=== PATIENT | female | born 1955 | race Caucasian/White ===

== ENCOUNTER → 2018-06-06 10:36 | Outpatient (CLI) | payer BC, SELFPAY ==
[2018-06-06 13:00] LABS: Thyroid Stim Hormone (TSH) 0.03 uIU/mL (0.358-3.74)
[2018-06-06 13:02] LABS: BNP,B-Type NATRIURETIC PEPTIDE 48.3 pg/mL (0-100)
== END ==
PROVIDERS: Family Provider Nurse Practitioner; PCP Nurse Practitioner; Visit Provider Nurse Practitioner Family
DX: I25.118 Atherosclerotic heart disease of native coronary artery with other forms of angina pectoris (principal); R06.09 Other forms of dyspnea; R53.83 Other fatigue; M25.562 Pain in left knee
CPT/HCPCS: 36415; 83880; 84439; 84443; 85379

== ENCOUNTER → 2018-07-19 22:55 | Outpatient (CLI) | payer BC, SELFPAY | PROVIDERS: Family Provider Nurse Practitioner; PCP Nurse Practitioner; Referring Provider Nurse Practitioner; Visit Provider Nurse Practitioner | DX: N30.90 Cystitis, unspecified without hematuria (principal) | CPT/HCPCS: 87077; 87086; 87088; 87186 ==

== ENCOUNTER → 2018-08-14 00:07 | Outpatient (CLI) | payer BC, SELFPAY ==
[2018-08-13 16:38] VITALS: BMI 44.2
== END ==
PROVIDERS: Family Provider Nurse Practitioner; PCP Nurse Practitioner; Referring Provider Nurse Practitioner; Visit Provider Nurse Practitioner
DX: N39.0 Urinary tract infection, site not specified (principal)
CPT/HCPCS: 87086; 87088

== ENCOUNTER → 2018-08-31 12:46 | Outpatient (CLI) | payer BC, SELFPAY ==
[2018-08-23 09:21] VITALS: BMI 44.2
--- NOTE | 2018-08-31 12:47 | ECHOD_ITS ---
Reason For Study: DYSPNEA/SOB Procedure This was a 2D Doppler, Color Flow transthoracic echocardiogram. Exam performed in department. Left Ventricle Normal size and thickness. The estimated ejection fraction is 65 %. Stage 1 diastolic dysfunction. No regional wall motion abnormalities noted. Right Ventricle Normal size and thickness. Normal systolic function. Atria Normal left atrium. Normal right atrium. Normal atrial septum. Mitral Valve The mitral valve is structurally normal. No prolapse or stenosis seen. Tricuspid Valve Normal tricuspid valve. Trivial tricuspid valve insufficiency. Right ventricular systolic pressure estimated to be 35 mmHg. Aortic Valve Trisinus/trileaflet aortic valve. Normal aortic valve. Pulmonic Valve Normal pulmonic valve. Trivial pulmonic valve insufficiency. Great Vessels Normal aortic root. Normal arch. Normal inferior vena cava. Inferior vena cava collapse with sniff. Pericardium/Pleural No pericardial effusion. MMode/2D Measurements & Calculations LVIDd: 4.3 cm IVSd: 1.3 cm Ao root diam: 3.3 cm LVIDs: 2.8 cm LVPWd: 0.98 cm RVDd: 3.3 cm FS: 33.9 % LAV(MOD-bp): 49.8 ml LVAd ap4: 29.7 cm2 SV(MOD-sp4): 54.8 ml LAV(MOD-bp) Indexed: 23.3 ml/m2 EDV(MOD-sp4): 90.6 ml LAV(MOD-sp2): 46.8 ml EDV(sp4-el): 91.5 ml LAV(MOD-sp4): 48.2 ml LVAs ap4: 16.5 cm2 ESV(MOD-sp4): 35.8 ml ESV(sp4-el): 36.4 ml EF(MOD-sp4): 60.5 % EF(sp4-el): 60.2 % SV(sp4-el): 55.1 ml LA A4 area: 18.1 cm2 LA dimension(2D): 4.2 cm RA A4 area: 17.4 cm2 Time Measurements MV dec time: 0.19 sec Doppler Measurements & Calculations MV E max brandin: 68.6 cm/sec Lat Peak E' Brandin: 10.7 cm/sec Med Peak E' Brandin: 6.8 cm/sec MV A max brandin: 87.5 cm/sec E/E' lat: 6.4 E/E' med: 10.1 MV E/A: 0.78 Ao V2 max: 137.9 cm/sec LV V1 max: 115.7 cm/sec PA V2 max: 91.5 cm/sec Ao max P.6 mmHg LV V1 max P.4 mmHg TR max brandin: 273.9 cm/sec TR max P.0 mmHg Interpretation Summary The estimated ejection fraction is 65 %. Stage 1 diastolic dysfunction. Trivial tricuspid valve insufficiency. Right ventricular systolic pressure estimated to be 35 mmHg. Compared to echo report dated 06/02/2017, LV function has normalized from global hypokinesis to normal LV function. Ordering Physician: Mehrdad Ruth/Santiago Rivera Referring Physician: GUSTAVO BENITEZ Performed By: Deyanira Spring RDCS
== END ==
PROVIDERS: Family Provider Nurse Practitioner; PCP Nurse Practitioner; Referring Provider Nurse Practitioner Family; Visit Provider Nurse Practitioner Family
DX: I51.9 Heart disease, unspecified (principal); R06.02 Shortness of breath
CPT/HCPCS: 93306

== ENCOUNTER → 2018-09-08 14:44 | Outpatient (CLI) | payer BC, SELFPAY ==
[2018-08-23 09:21] VITALS: BMI 44.2
[2018-09-08 15:29] LABS: Thyroid Stim Hormone (TSH) 0.18 uIU/mL (0.358-3.74)
== END ==
PROVIDERS: Family Provider Nurse Practitioner; PCP Nurse Practitioner; Referring Provider Nurse Practitioner; Visit Provider Nurse Practitioner
DX: E03.9 Hypothyroidism, unspecified (principal)
CPT/HCPCS: 84443

== ENCOUNTER → 2018-10-19 21:52 | Outpatient (CLI) | payer OTHER, SELFPAY ==
[2018-10-19 18:03] VITALS: BMI 45.7
== END ==
PROVIDERS: Family Provider Nurse Practitioner; PCP Nurse Practitioner; Referring Provider Nurse Practitioner; Visit Provider Nurse Practitioner
DX: R30.0 Dysuria (principal); R35.0 Frequency of micturition
CPT/HCPCS: 87077; 87086; 87088; 87186

== ENCOUNTER 2018-10-29 12:26 | Emergency (ER) | payer OTHER, SELFPAY ==
[2018-10-19 18:03] VITALS: BMI 45.7
[2018-10-29 12:26] VITALS: BP 150/93; PULSE 98; RESP 16; TEMP 36.7; O2SAT 97; BMI 44.5
--- NOTE | 2018-10-29 13:10 | CT_ITS ---
STUDY: CT ABDOMEN AND PELVIS WITHOUT CONTRAST REASON FOR EXAM: Female, 62 years old. Right flank pain. RADIATION DOSAGE (If Supplied By Facility): CTDIvol = ( 22.70 ) mGy, DLP = ( 1247.45 ) mGycm TECHNIQUE: Transaxial images were obtained from the dome of the diaphragm to the symphysis pubis without oral contrast, and without intravenous contrast. Sagittal and coronal images were reconstructed. Individualized dose optimization techniques were used for this CT. COMPARISON: None. FINDINGS: Mild degree of increased markings at the right lung base suggestive of mild atelectasis. The visualized portions of the heart are within normal limits. Normal liver. The patient is status post cholecystectomy. Normal spleen. Normal pancreas. Minimal enlargement of the left adrenal gland. Normal right kidney. There is a 2 mm calculus at the right ureterovesical junction. Normal left kidney. There is a small hiatal hernia. Normal small intestine. There are multiple colonic diverticula consistent with diverticulosis. The appendix is visualized and appears normal. There is scattered atherosclerotic calcification of the abdominal aorta, without a demonstrated aneurysm. There is an IVC filter in place. Normal retroperitoneum. Normal urinary bladder. There is a small umbilical hernia containing fat. There are degenerative changes of the visualized lumbar spine. Straightening of the normal lumbar lordosis. CT/Abdomen/Pelvis without Cont IMPRESSION: Sigmoid diverticulosis. 2 mm calculus at the right ureterovesical junction. Electronically Signed: Pranay Mccann MD at 14:06 EST , Service support ,
--- NOTE | 2018-10-29 13:12 | ED.DCSUM_ITS ---
- ER Visit Summary Date of Service: 10/29/18 Chief Complaint: right flank pain History of Present Illness: The patient is a 62 F who presents for 4-5 days of right-sided flank pain. Patient has had been having gradually worsening right flank pain with associated abdominal pain, vomiting, chills and sweats. She also has had dysuria, frequency and urgency for one week. Patient has had a few episodes of loose stool. She was evaluated by her family doctor for the urinary symptoms 1 week ago and placed on Macrobid. Her last dose is today and has given her no relief of flank pain. Patient states the flank pain began after the UTI diagnosis and start of prescription for the antibiotic. Patient has h istory of diverticulitis, rheumatoid arthritis, hypertension. Patient does not smoke. Physical Examination: Vital signs: afebrile, hemodynamically stable, no hypoxia on room air General: well nourished, well developed, in no distress but appears uncomfortable Skin: warm, dry, no rash, no pallor HEENT: normocephalic and atraumatic; PERRL, EOMI, moist mucous membranes Cardiovascular: regular rate and rhythm without murmurs, no peripheral edema, 2+ pulses all distal extremities Respiratory: No increased work of breathing, lungs are clear to auscultation bilaterally, no rales, rhonchi or wheezing Abdominal: Abdomen is soft, tender in the right upper and lower quadrants and suprapubic region with normoactive bowel sounds, no guarding or rebound, no masses positive right-sided CVA tenderness MSK: Moves all extremities, no deformities, normal strength Neuro: Awake and alert, oriented ?4. No facial droop, sensation and motor function intact and symmetric Test Results: Abnormal Lab Results 10/29/18 10/29/18 10/29/18 12:48 12:48 14:24 WBC 4.7 RBC 4.48 Hgb 14.2 Hct 43.3 MCV 96.7 MCH 31.7 MCHC 32.8 RDW 14.2 RDW Differential 50.2 H Plt Count 188 MPV 12.0 Immature Gran % (Auto) 0.200 Neut % (Auto) 45.3 L Lymph % (Auto) 36.9 [place] % (Auto) 15.9 H Eos % (Auto) 1.3 Baso % (Auto) 0.4 Absolute Neuts (auto) 2.1 Absolute Lymphs (auto) 1.74 Total Counted Not Reportable Sodium 140 Potassium 3.9 Chloride 108 H Carbon Dioxide 25.0 Anion Gap 7 BUN 16 Creatinine 0.82 Estim Creat Clear Calc 58.84 Est GFR (MDRD) Af Amer 90 Est GFR (MDRD) Non-Af 75 BUN/Creatinine Ratio 19.4 Glucose 98 Calcium 9.2 Total Bilirubin 0.50 AST 48 H ALT 74 H Alkaline Phosphatase 125 H Total Protein 7.7 Albumin 3.7 Globulin 4.0 Albumin/Globulin Ratio 0.9 Urine Color Yellow Urine Clarity Clear Urine pH 6.5 Ur Specific [place] 1.015 Urine Protein Negative Urine Glucose (UA) Normal Urine Ketones Negative Urine Occult Blood Negative Urine Nitrite Negative Urine Bilirubin Negative Urine Urobilinogen Normal Ur Leukocyte Esterase 25 H Urine RBC 0 SEEN Urine WBC 0 SEEN Ur Squamous Epith Cells 0-5 SEEN Urine Bacteria RARE Urine Mucus 0 SEEN Clinical Impression(s) from Imaging Studies Abdomen/Pelvis CT 10/29/18 13:10 IMPRESSION: Sigmoid diverticulosis. 2 mm calculus at the right ureterovesical junction. Electronically Signed: Pranay Mccann MD at 14:06 EST , Service support , Medications Given Sodium Chloride () 1,000 mls @ 250 mls/hr IV .Q4H DARRICK Last Admin: 10/29/18 13:20 Dose: 250 mls/hr Discontinued Medications Ketorolac Tromethamine (Toradol) 15 mg IV X1 ONE Stop: 10/29/18 13:10 Last Admin: 10/29/18 13:20 Dose: 15 mg Morphine Sulfate () 2 mg IV X1 ONE Stop: 10/29/18 14:23 Last Admin: 10/29/18 14:27 Dose: 2 mg Morphine Sulfate () 4 mg IV X1 ONE Stop: 10/29/18 15:15 Last Admin: 10/29/18 15:21 Dose: 4 mg Ondansetron HCl (Zofran) 4 mg IV X1 ONE Stop: 10/29/18 13:10 Last Admin: 10/29/18 13:20 Dose: 4 mg Emergency Department Course and Treatment: Patient presents with right-sided flank pain and continued urinary symptoms after being on Macrobid for several days. This is concerning for possible pyelonephritis, or possibly kidney stone given patient has history of prior kidney stones. Patient was given IV fluids, Zofran and Toradol with some improvement in her pain. She continued to be uncomfortable though and was given morphine. Labs showed no leukocytosis, no renal dysfunction, and urine was negative for hematuria or infection. CT flank showed a 2 mm stone at the right UVJ. Patient's flank symptoms started after the diagnosis of the UTI, thus with the stone and no infection noted on the UTI, patient's infection was likely successfully treated with the nitrofurantoin. She will finish the final dose is today. Patient was given prescription for Zofran and [place] to help with her flank pain from ureteral colic. She was given a referral to urology if she does not have improvement within 1 week. Patient was discharged home in improved condition after additional morphine. Treatment Plan: [] Disposition: [] Impression: right 2mm ureteral stone, right ureteral colic This note was generated with [employer] dictation software. It may contain incorrect words, spelling, and punctuation that were not noted in review of the chart prior to signing ED Disposition - Plan for ED Patient: Disposition: Home or Assisted Living Instructions: ED Stone Renal W Colic Prescriptions: Hydrocodone Bitart/Apap 5-325 [[place] 5MG-325MG] 1 tab PO Q6H PRN PRN 5 Days #20 tab PRN Reason: Pain Ondansetron [Zofran Odt] 4 mg PO Q8H PRN PRN #10 tab PRN Reason: Nausea Referrals: Leonora Davalos NP-C [Primary Care Provider] - 3-5 Days if not improving Quoc Sandhu MD [STAFF PHYSICIAN] - 1 Week if not improving Additional Instructions: Use Motrin or naproxen as needed for mild to moderate pain. You may use the [place] pain. The ondansetron is for nausea. Please return if you have any uncontrolled severe pain, high fever, worsening of your condition, or any new concerning symptoms. If you are not having improvement within one week, follow up with the urologist on this paperwork. If you have any worsening of your condition or any new concerning symptoms, ple ase return immediately to the emergency department for another evaluation.
[2018-10-29] MEDS: Ondansetron 4 MG/2 ML Vial IV (13:20)
[2018-10-29] MEDS: 0.9% Normal Saline 1,000 ML 250 ML IV (13:20)
[2018-10-29] MEDS: Ketorolac 30 MG/ML Syringe 15 MG IV (13:20)
[2018-10-29 13:23] LABS: Absolute Lymphocyte Count 1.74 X10^3/ul (0.83-4.51); Absolute Neutrophil Count 2.1 X10^3/uL (2.0-7.7); Basophil# 0.02 X10^3/uL; Basophil% 0.4 % (0-1); Eosinophil# 0.06 X10^3/uL; Eosinophils% 1.3 % (0-5); Hematocrit 43.3 % (37-47); Hemoglobin 14.2 g/dl (12.0-15.0); Lymphocyte # 1.74 X10^3/ul (4.0); Lymphocyte % 36.9 % (19-41); Mean Corp Hgb Conc 32.8 g/gl (32-36); Mean Corpuscular Hgb 31.7 pg (27.0-32.0); Mean Corpuscular Volume 96.7 fL (81-99); Monocyte# 0.75 X10^3/uL; Monocyte% 15.9 % (0-10); Neutrophil # 2.14 X10^3/uL (2.7-7.7); Neutrophil % 45.3 % (47-70); Platelet Count 188 K/mm3 (150-450); RBC Distribution Width CV 14.2 % (11.6-14.6); RBC Distribution Width SD 50.2 fl (35.1-43.9); Red Blood Count 4.48 M/mm3 (4.2-5.4); White Blood Count 4.7 K/mm3 (4.4-11.0)
[2018-10-29 13:30] LABS: POSITIVE COUNT NO; POSITIVE DIFFERENTIAL NO; POSITIVE MORPHOLOGY NO
[2018-10-29 13:33] LABS: ALB/GLOB Ratio 0.9 RATIO (0.9-2.4); AST(SGOT) 48 U/L (15-37); Alanine Aminotransfer ALT/SGPT 74 U/L (13-56); Albumin, Serum 3.7 g/dL (3.2-5.0); Alkaline Phosphatase 125 U/L (45-117); Anion Gap 7 (5-15); BUN 16 mg/dL (7-18); BUN/Creat Ratio 19.4 RATIO (10-20); Calcium,Total 9.2 mg/dL (8.5-10.1); Chloride 108 mmol/L (98-107); Creatinine, Serum 0.82 mg/dL (0.55-1.02); EST Glomerular Filtration Rate 75 mL/min (>60); Est Glom Filt Rate - Afr Amer 90 mL/min (>60); Estimated Creatinine Clearance 58.84 ml/min; Glucose 98 mg/dL (74-106); Potassium 3.9 mmol/L (3.5-5.1); Protein, Total 7.7 g/dL (6.4-8.2); Sodium Level 140 mmol/L (136-145)
[2018-10-29 14:19] VITALS: BP 134/76; PULSE 61; RESP 16; O2SAT 98
[2018-10-29] MEDS: Morphine 2 MG/ML Syringe IV (14:27)
[2018-10-29 14:36] LABS: Mucous, Urine 0 SEEN /hpf (<or=2+); Red Blood Cells-Urine 0 SEEN /hpf (0-5); White Blood Cells 0 SEEN /hpf (0-5)
[2018-10-29 14:43] LABS: Color, Urine Yellow (Yellow); Glucose, Dipstick Normal (Normal); Ketone-Dipstick Negative (Negative); Leukocyte Esterase-Dipstick 25 /ul (Negative); Nitrite-Dipstick Negative (Negative); Occult Blood-Urine Negative /ul (Negative); Protein-Dipstick Negative (Negative); Specific Gravity, Urine 1.015 (1.002-1.030); Urine Bilirubin Dipstick Negative (Negative); Urine Clarity Clear (Clear); Urine Urobilinogen Normal (Normal); Urine pH 6.5 (5.0 - 8.0)
[2018-10-29 14:54] LABS: Bacteria RARE /hpf (None Seen); Squamous Epithelial Cells - UA 0-5 SEEN /hpf (5-10)
[2018-10-29] MEDS: Morphine 4 MG/ML Syringe IV (15:21)
== END 2018-10-29 15:48 | disposition home or self-care (01) ==
PROVIDERS: Emergency Provider Emergency Medicine; Family Provider Nurse Practitioner; PCP Nurse Practitioner
DX: N20.1 Calculus of ureter (principal); K57.30 Diverticulosis of large intestine without perforation or abscess without bleeding; Z87.442 Personal history of urinary calculi; I10 Essential (primary) hypertension; M06.9 Rheumatoid arthritis, unspecified; Z79.82 Long term (current) use of aspirin; Z79.899 Other long term (current) drug therapy
CPT/HCPCS: 74176; 80053; 81001; 85025; 96361; 96374; 96375; 96376; 99284; J7030; A4216; J2405

== ENCOUNTER → 2018-11-21 07:57 | Outpatient (CLI) | payer OTHER, SELFPAY ==
[2018-11-20 07:21] VITALS: BMI 44.5
--- NOTE | 2018-11-23 08:21 | PFT ---
INTRODUCTION: The patient is a 63-year-old female that presents for pulmonary function studies secondary to a diagnosis of dyspnea. Respiratory therapy reports good patient effort. Bronchodilators were used during testing. INTERPRETATION: Forced expiration spirometry demonstrates no evidence of a large airways obstructive ventilatory defect. There was no significant response to aerosolized bronchodilators, based upon strict ATS criteria. Spirograms are of good quality and plateau normally. Body plethysmography was performed and reveals lung volumes to be within normal limits. Diffusing capacity by single breath CO is within normal limits as well. When compared to prior pulmonary function studies dated June 2017 there has been an 11% improvement in DLCO. IMPRESSION: Essentially normal pulmonary function studies.
== END ==
PROVIDERS: Family Provider Nurse Practitioner; PCP Nurse Practitioner; Referring Provider Internal Medicine Critical Care Medicine; Visit Provider Internal Medicine Critical Care Medicine
DX: M06.9 Rheumatoid arthritis, unspecified (principal); R06.00 Dyspnea, unspecified
CPT/HCPCS: 94060; 94726; 94729

== ENCOUNTER → 2019-03-20 13:52 | Outpatient (CLI) | payer OTHER, SELFPAY ==
[2019-03-04 15:57] VITALS: BMI 47.1
--- NOTE | 2019-03-20 13:55 | ECHOD_ITS ---
Reason For Study: DYSPNEA Procedure This was a 2D Doppler, Color Flow transthoracic echocardiogram. Myocardial strain analysis was performed in this exam to aid in the assessment of cardiac function. Exam performed in department. Left Ventricle Normal size and thickness. The estimated ejection fraction is 65 %. Stage 1 diastolic dysfunction. No regional wall motion abnormalities noted. Right Ventricle Normal size and thickness. Normal systolic function. Atria The left atrium is mildly enlarged. Normal right atrium. Normal atrial septum. Mitral Valve The mitral valve is structurally normal. No prolapse or stenosis seen. Trivial mitral valve insufficiency. Tricuspid Valve Normal tricuspid valve. Trivial tricuspid valve insufficiency. Right ventricular systolic pressure estimated to be 31 mmHg. Aortic Valve Normal aortic valve. Trisinus/trileaflet aortic valve. Pulmonic Valve Normal pulmonic valve. Great Vessels Normal aortic root. Normal arch. Normal inferior vena cava. Inferior vena cava collapse with sniff. Pericardium/Pleural No pericardial effusion. MMode/2D Measurements & Calculations LVIDd: 4.6 cm IVSd: 0.96 cm Ao root diam: 3.4 cm LVIDs: 2.8 cm LVPWd: 1.1 cm FS: 38.5 % LAV(MOD-bp): 61.1 ml EDV(MOD-sp4): 94.1 ml EDV(MOD-sp2): 76.2 ml LAV(MOD-bp) Indexed: 28.2 ml/m2 ESV(MOD-sp4): 35.6 ml EF(MOD-sp2): 60.9 % LAV(MOD-sp2): 50.4 ml EF(MOD-sp4): 62.2 % LAV(MOD-sp4): 70.5 ml SV(MOD-sp4): 58.5 ml SV(MOD-sp2): 46.4 ml LA A4 area: 22.8 cm2 LA dimension(2D): 4.4 cm RA A4 area: 14.2 cm2 Time Measurements MV dec time: 0.19 sec Doppler Measurements & Calculations MV E max brandin: 91.0 cm/sec Lat Peak E' Brandin: 10.8 cm/sec Med Peak E' Brandin: 6.6 cm/sec MV A max brandin: 100.9 cm/sec E/E' lat: 8.4 E/E' med: 13.7 MV E/A: 0.90 Ao V2 max: 117.7 cm/sec LV V1 max: 103.7 cm/sec PA V2 max: 86.9 cm/sec Ao max P.5 mmHg LV V1 max P.3 mmHg TR max brandin: 253.9 cm/sec TR max P.8 mmHg Interpretation Summary The estimated ejection fraction is 65 %. Stage 1 diastolic dysfunction. The left atrium is mildly enlarged. Trivial mitral valve insufficiency. Trivial tricuspid valve insufficiency. Right ventricular systolic pressure estimated to be 31 mmHg. Compared to echo report dated 08/31/2018, no appreciable changes noted. Ordering Physician: Santiago Rivera Referring Physician: GUSTAVO BENITEZ Performed By: Opal Lynch, ABBY, RVT
== END ==
PROVIDERS: Family Provider Nurse Practitioner; PCP Nurse Practitioner; Referring Provider Internal Medicine Cardiovascular Disease; Visit Provider Internal Medicine Cardiovascular Disease
DX: R06.09 Other forms of dyspnea (principal); R60.0 Localized edema; R07.89 Other chest pain
CPT/HCPCS: 93306

== ENCOUNTER → 2019-03-22 09:29 | Outpatient (CLI) | payer OTHER, SELFPAY ==
[2019-03-04 15:57] VITALS: BMI 47.1
--- NOTE | 2019-03-22 09:29 | STEWCON_ITS ---
Reason For Study: DYSPNEA/SOB Stress Results Protocol: Carlos Eduardo Protocol WITH DEFINITY Maximum Predicted HR: 157 bpm Target HR: 133 bpm % Maximum Predicted HR: 102 % DurationHeart Rate Stage (mm:ss) (bpm) BP Comment BASELINE 77 144/861 CC DEFINITY STAGE 1 3:00 150 182/94A LITTLE TOUGH TO BREATHE STAGE 2 1:16 160 / 1CC DEEFINITY, INCREASED SOB, HEAVINESS IN CHEST RECOVERY 95 148/88 Stress Duration: 4:16 mm:ss Maximum Stress HR: 160 bpm Baseline Echocardiogram Findings The estimated ejection fraction is 65 %. Stress Echo Wall motion Data Resting WM Intermediate WM Stress WM Resting Wall Motion Wall Motion Stress No regional wall motion No regional wall motion abnormalities noted. abnormalities noted. EKG Data The baseline ECG displays normal sinus rhythm. The patient exercised according to the regular Carlos Eduardo protocol for a total duration of 4:16. The maximum heart rate attained was 179 beats per minute. This was 114% of maximum predicted heart rate. The patient exercised into stage 2 of the Carlos Eduardo protocol. During stress, there were no ST or T wave changes noted to suggest ischemia. No clinical angina was noted. Interpretation Summary The estimated ejection fraction is 65 %. Normal, adequate, treadmill echocardiogram. Negative for ischemia by EKG and echocardiographic anterior. No anginal symptoms noted. Rare PVCs noted. Appropriate blood pressure response to exercise. Below average exercise capacity for age. Decreased sensitivity due to poor echo windows requiring Definity agent. Final LVEF of 75%. Test terminated due to attainment target heart rate and fatigue. The study was technically difficult. Contrast injection was performed. Ordering Physician: Santiago Rivera Referring Physician: Santiago Rivera Performed By: Opal Lynch, VIRGIECS, RVT
== END ==
PROVIDERS: Family Provider Nurse Practitioner; PCP Nurse Practitioner; Referring Provider Internal Medicine Cardiovascular Disease; Visit Provider Internal Medicine Cardiovascular Disease
DX: R07.89 Other chest pain (principal); R06.09 Other forms of dyspnea; R60.0 Localized edema
CPT/HCPCS: 93017; 93350; Q9957; A4216; C8928

== ENCOUNTER → 2019-06-27 17:00 | Outpatient (CLI) | payer OTHER, SELFPAY ==
[2019-06-27 19:24] VITALS: BMI 46.9
[2019-06-28 02:01] LABS: ALB/GLOB Ratio 0.9 RATIO (0.9-2.4); AST(SGOT) 29 U/L (15-37); Alanine Aminotransfer ALT/SGPT 55 U/L (13-56); Albumin, Serum 3.7 g/dL (3.2-5.0); Alkaline Phosphatase 130 U/L (45-117); Anion Gap 10 (5-15); BUN 13 mg/dL (7-18); BUN/Creat Ratio 14.7 RATIO (10-20); Calcium,Total 8.9 mg/dL (8.5-10.1); Chloride 109 mmol/L (98-107); Creatinine, Serum 0.88 mg/dL (0.55-1.02); EST Glomerular Filtration Rate 69 mL/min (>60); Est Glom Filt Rate - Afr Amer 83 mL/min (>60); Glucose 232 mg/dL (74-106); Potassium 3.8 mmol/L (3.5-5.1); Protein, Total 7.7 g/dL (6.4-8.2); Sodium Level 142 mmol/L (136-145)
[2019-06-28 02:05] LABS: Absolute Neutrophil Count 3.3 X10^3/uL (2.0-7.7); Basophil# 0.01 X10^3/uL; Basophil% 0.2 % (0-1); Hematocrit 42.6 % (37-47); Hemoglobin 13.4 g/dL (12.0-15.0); Mean Corp Hgb Conc 31.5 g/dL (32-36); Mean Corpuscular Hgb 30.5 pg (27.0-32.0); Mean Platelet Vol. 12.9 fl (6.2-12.0); Monocyte# 0.06 X10^3/uL; Monocyte% 1.5 % (0-10); NRBC Flagged by Analyzer 0 % (0-5); Neutrophil # 3.32 X10^3/uL (2.7-7.7); Neutrophil % 80.8 % (47-70); POSITIVE MORPHOLOGY YES; Platelet Count 162 K/mm3 (150-450); RBC Distribution Width CV 14.6 % (11.6-14.6); RBC Distribution Width SD 52.5 fl (35.1-43.9); Red Blood Count 4.39 M/mm3 (4.2-5.4); White Blood Count 4.1 K/mm3 (4.4-11.0)
[2019-06-28 02:17] LABS: Differential Indicated SCAN CRITERIA MET
[2019-06-28 12:13] LABS: T4 Free Direct 1.65 ng/dL (0.76-1.46); Thyroid Stim Hormone (TSH) 0.04 uIU/mL (0.358-3.74)
[2019-06-28 12:27] LABS: BNP,B-Type NATRIURETIC PEPTIDE 264.9 pg/mL (0-100)
== END ==
PROVIDERS: Nurse Practitioner Family; Family Provider Nurse Practitioner; PCP Nurse Practitioner; Referring Provider Nurse Practitioner; Visit Provider Nurse Practitioner
DX: N39.0 Urinary tract infection, site not specified (principal); I25.118 Atherosclerotic heart disease of native coronary artery with other forms of angina pectoris; I50.9 Heart failure, unspecified; E03.9 Hypothyroidism, unspecified; R06.09 Other forms of dyspnea
CPT/HCPCS: 80053; 83880; 84439; 84443; 84484; 85025; 87086; 87088

== ENCOUNTER → 2019-06-28 12:29 | Outpatient (CLI) | payer OTHER, SELFPAY ==
[2019-06-28 10:41] VITALS: BMI 45.8
--- NOTE | 2019-06-28 12:34 | RAD_ITS ---
HISTORY: SOB, AFIB, HX OF PARTIAL LEFT MASTECTOMY WITH CHEMO AND RADIATION EXAM: XR Chest 2 Views: COMPARISON: June 19, 2017 FINDINGS: # of images incl. paperwork: 2 Left axillary adenopathy persists Fibrotic lung disease persists Heart is not enlarged. Thoracic spondylosis with multilevel degenerative disc disease and enthesophytes is the same. Acromioclavicular arthritis is the same. No focal airway disease is perceived. Pulmonary vascularity is distinct. No effusions. A Alex Nitinol IVC filter is malaligned within the upper abdomen, better demonstrated on the lateral image. 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 Left axillary surgical clips likely related to lymph node dissection. No acute cardiopulmonary disease identified. at 2206 Reported and signed by: Oral Bishop MD Electronically Signed: Oral Bishop MD at 22:05 EDT Tel , Service support ,
== END ==
PROVIDERS: Family Provider Nurse Practitioner; PCP Nurse Practitioner; Referring Provider Nurse Practitioner Family; Visit Provider Nurse Practitioner Family
DX: I25.118 Atherosclerotic heart disease of native coronary artery with other forms of angina pectoris (principal); I51.9 Heart disease, unspecified; E03.9 Hypothyroidism, unspecified; R06.09 Other forms of dyspnea
CPT/HCPCS: 71046

== ENCOUNTER → 2019-10-07 09:08 | Outpatient (CLI) | payer OTHER, SELFPAY ==
[2019-10-07 08:27] VITALS: BMI 45.3
[2019-10-07 10:37] LABS: Thyroid Stim Hormone (TSH) 0.41 uIU/mL (0.358-3.74)
== END ==
PROVIDERS: PCP Nurse Practitioner; Visit Provider Internal Medicine Endocrinology, Diabetes & Metabolism
DX: E03.9 Hypothyroidism, unspecified (principal)
CPT/HCPCS: 36415; 84439; 84443

== ENCOUNTER → 2020-06-11 06:45 | Outpatient (CLI) | payer OTHER, SELFPAY ==
[2020-06-01 07:58] VITALS: BMI 47.8
--- NOTE | 2020-06-11 06:51 | CT_ITS ---
STUDY: CT MAXILLOFACIAL SINUSES REASON FOR EXAM: Female, 64 years old. CHRONIC SINUSITIS, LT EAR PAIN, SINUS PRESSURE LT and gt;RT, HX-BREAST, COLON CA WITH CHEMO AND RAD TX RADIATION DOSAGE (If Supplied By Facility): CTDIvol = ( 33.06 ) mGy, DLP = ( 693.36 ) mGycm TECHNIQUE: The patient was scanned in a multi detector CT scanner. High resolution axial imaging was performed without the administration of intravenous contrast material. Sagittal and coronal images were reconstructed. Individualized dose optimization techniques were used for this CT. COMPARISON: None. FINDINGS: Small benign-appearing submental lymph nodes. FRONTAL SINUSES: Normal aeration, without mucosal inflammatory disease. ETHMOIDAL SINUSES: Normal aeration, without mucosal inflammatory disease. MAXILLARY SINUSES: Normal aeration, without mucosal inflammatory disease. SPHENOIDAL SINUSES: Partial opacification of the left sphenoid sinus. Mucosal thickening of the posterior aspect of the left ethmoid sinus. There is patency of the bilateral maxillary infundibuli with normal uncinate processes, ethmoid bullae, and hiatus semilunaris. Hypertrophy of the right middle turbinate. There is hypertrophy of the right inferior nasal turbinate. Normal midline nasal septum. There is patency of the bilateral nasal airways. The visualized osseous structures are normal. The visualized bilateral orbital contents are normal. CT/Sinus/Facial Bone IMPRESSION: Partial opacification of the left sphenoid sinus and posterior aspect of the left ethmoid sinus. Electronically Signed: Pranay Mccann, at 7:34 EDT , Service support ,
== END ==
PROVIDERS: PCP Nurse Practitioner; Referring Provider Otolaryngology; Visit Provider Otolaryngology
DX: J32.2 Chronic ethmoidal sinusitis (principal)
CPT/HCPCS: 70486

== ENCOUNTER → 2020-07-07 14:33 | Outpatient (CLI) | payer OTHER, SELFPAY ==
[2020-07-07 13:44] VITALS: BMI 47.2
[2020-07-07 17:30] LABS: ALB/GLOB Ratio 0.7 RATIO (0.9-2.4); AST(SGOT) 82 U/L (15-37); Alanine Aminotransfer ALT/SGPT 142 U/L (13-56); Albumin, Serum 3.5 g/dL (3.2-5.0); Alkaline Phosphatase 131 U/L (45-117); Anion Gap 6 (5-15); BUN 14 mg/dL (7-18); BUN/Creat Ratio 15.7 RATIO (10-20); Calcium,Total 9.4 mg/dL (8.5-10.1); Chloride 108 mmol/L (98-107); Cholesterol 231 mg/dL (200); Creatinine, Serum 0.89 mg/dL (0.55-1.02); EST Glomerular Filtration Rate 68 mL/min (>60); Est Glom Filt Rate - Afr Amer 82 mL/min (>60); Globulin 4.7 g/dL (2.2-4.2); Glucose 94 mg/dL (74-106); High Density Lipoprotein 49 mg/dL; Potassium 3.9 mmol/L (3.5-5.1); Protein, Total 8.2 g/dL (6.4-8.2); Sodium Level 138 mmol/L (136-145); Triglycerides 207 mg/dL; Very Low Density Lipoprotein 41 mg/dL (5-40)
[2020-07-07 17:36] LABS: Thyroid Stim Hormone (TSH) 1.07 uIU/mL (0.358-3.74)
== END ==
PROVIDERS: Internal Medicine Endocrinology, Diabetes & Metabolism; PCP Internal Medicine; Referring Provider Internal Medicine; Visit Provider Internal Medicine
DX: K75.81 Nonalcoholic steatohepatitis (NASH) (principal); E66.01 Morbid (severe) obesity due to excess calories; E11.9 Type 2 diabetes mellitus without complications; E89.0 Postprocedural hypothyroidism; Z68.42 Body mass index [BMI] 45.0-49.9, adult
CPT/HCPCS: 36415; 80053; 80061; 84439; 84443

== ENCOUNTER → 2020-07-30 10:34 | Outpatient (CLI) | payer OTHER, SELFPAY ==
[2020-07-07 14:49] VITALS: BMI 47.2
== END ==
PROVIDERS: PCP Internal Medicine; Referring Provider Otolaryngology; Visit Provider Otolaryngology
DX: Z11.59 Encounter for screening for other viral diseases (principal)
CPT/HCPCS: 87635; C9803; U0003

== ENCOUNTER → 2020-09-10 07:32 | Outpatient (CLI) | payer OTHER, SELFPAY ==
[2020-08-31 08:09] VITALS: BMI 46.7
--- NOTE | 2020-09-10 07:34 | US_ITS ---
STUDY: ABDOMINAL ULTRASOUND - LEFT UPPER QUADRANT REASON FOR VISIT: Female, 64 years old LUQ MASS TECHNIQUE: Ultrasound evaluation of the left upper quadrant was performed with real-time and static mcdermott-scale imaging. TECHNICAL QUALITY: Adequate. COMPARISON: None. FINDINGS: The spleen measures 12.0 x 3.9 x 4.1 cm with normal echo pattern. No perisplenic fluid collection. No splenic mass. The left kidney measures 11.1 x 5.5 x 5.2 cm. Normal renal cortex without demonstrated hydronephrosis or mass. US/Abdomen Limited IMPRESSION: Normal sonographic appearance of the spleen and left kidney. No solid or cystic mass demonstrated. If there is still clinical concern for mass in the left upper quadrant, CT recommended. Electronically Signed: Bucky Linton MD ([place]) at 11:27 EST , Service support ,
== END ==
PROVIDERS: PCP Internal Medicine; Referring Provider Internal Medicine; Visit Provider Internal Medicine
DX: R19.02 Left upper quadrant abdominal swelling, mass and lump (principal)
CPT/HCPCS: 76705

== ENCOUNTER → 2020-09-28 09:12 | Outpatient (CLI) | payer OTHER, SELFPAY ==
[2020-08-31 08:09] VITALS: BMI 46.7
[2020-09-28 13:52] LABS: ALB/GLOB Ratio 0.8 RATIO (0.9-2.4); AST(SGOT) 87 U/L (15-37); Alanine Aminotransfer ALT/SGPT 175 U/L (13-56); Albumin, Serum 3.7 g/dL (3.2-5.0); Alkaline Phosphatase 151 U/L (45-117); Anion Gap 9 (5-15); BUN 21 mg/dL (7-18); BUN/Creat Ratio 30.2 RATIO (10-20); Calcium,Total 9.2 mg/dL (8.5-10.1); Chloride 110 mmol/L (98-107); EST Glomerular Filtration Rate 90 mL/min (>60); Est Glom Filt Rate - Afr Amer 109 mL/min (>60); Globulin 4.4 g/dL (2.2-4.2); Glucose 85 mg/dL (74-106); Potassium 4.7 mmol/L (3.5-5.1); Protein, Total 8.1 g/dL (6.4-8.2); Sodium Level 138 mmol/L (136-145)
== END ==
PROVIDERS: PCP Internal Medicine; Visit Provider Internal Medicine
DX: K75.81 Nonalcoholic steatohepatitis (NASH) (principal)
CPT/HCPCS: 36415; 80053

== ENCOUNTER → 2021-01-19 17:08 | Outpatient (CLI) | payer OTHER, MEDICARE, SELFPAY ==
[2021-01-19 14:44] VITALS: BMI 48.6
== END ==
PROVIDERS: PCP Internal Medicine; Referring Provider Obstetrics & Gynecology; Visit Provider Obstetrics & Gynecology
DX: N89.8 Other specified noninflammatory disorders of vagina (principal)
CPT/HCPCS: 87070; 87205

== ENCOUNTER → 2021-02-02 06:43 | Outpatient (CLI) | payer OTHER, MEDICARE, SELFPAY ==
[2021-01-28 05:42] VITALS: BMI 47.6
--- NOTE | 2021-02-02 13:30 | PFTCOMP ---
COMPLETE PULMONARY FUNCTION TEST INTERPRETATION Brief HPI: Patient is a 65 year old female, currently under the care of myself, who presents to [facility] for complete pulmonary function tests secondary to diagnosis of dyspnea. Respiratory therapist reports good effort and reproducible results. Interpretation: Forced expiration spirometry shows no large airways obstructive ventilatory defect with an FEV1 of 106% predicted. There is no significant bronchodilator response by strict ATS criteria. Spirograms are of good quality and plateau normally. The respiratory flow volume loop shows a normal pattern. Lung volumes by body plethysmography show a normal total lung capacity at 4.05 L, 87% predicted. All other lung volumes are within normal limits. Diffusion capacity by carbon monoxide is at the lower limit of normal at 71% predicted. The airway resistance is normal. Compared to previous pulmonary function tests from 11/21/2018, there is been a significant reduction in air trapping. Impression: Grossly normal pulmonary function testing with improvement in air trapping compared to previous.
== END ==
PROVIDERS: PCP Internal Medicine; Referring Provider Internal Medicine Critical Care Medicine; Visit Provider Internal Medicine Critical Care Medicine
DX: R06.09 Other forms of dyspnea (principal)
CPT/HCPCS: 94060; 94726; 94729

== ENCOUNTER → 2021-05-13 07:09 | Outpatient (CLI) | payer MEDICARE, OTHER, SELFPAY ==
[2021-01-19 14:44] VITALS: BMI 48.6
--- NOTE | 2021-05-13 07:11 | BI_ITS ---
MAMMOGRAPHY - BILATERAL SCREENING 3-D TOMOSYNTHESIS REASON FOR EXAM: Female, 65 years old. screening PERTINENT HISTORY: No significant family history. TECHNIQUE: 2-D mammograms and 3-D Tomosynthesis of the breast (s) were performed. CAD was performed. COMPARISON: None. FINDINGS: The breast composition is composed of scattered fibroglandular density. Scattered benign calcifications are seen. No dense spiculated masses or suspicious microcalcifications are identified. No architectural distortion is identified. There is no skin thickening or retraction. There has been no significant change since the prior study. BI/SCRN MAMM (CAD)W/CHRISTIANO BILAT IMPRESSION: No mammographic signs of malignancy. Routine yearly mammograms recommended. ASSESSMENT CATEGORY: BIRADS Category 1: Negative. A letter regarding these results will be sent to the patient by the facility within 30 days. FOLLOW UP RECOMMENDATION: Yearly follow up mammogram recommended. (A) Approximately 10% of breast cancers are not detected by mammography. A normal mammogram should not delay biopsy of a clinically suspicious abnormality. Electronically Signed: Matty Cortez MD at 8:40 EDT Tel , Service support ,
== END ==
PROVIDERS: PCP Internal Medicine; Referring Provider Obstetrics & Gynecology; Visit Provider Obstetrics & Gynecology
DX: Z12.31 Encounter for screening mammogram for malignant neoplasm of breast (principal)
CPT/HCPCS: 77063; 77067

== ENCOUNTER → 2021-07-06 18:02 | Outpatient (CLI) | payer OTHER, MEDICARE, SELFPAY ==
[2021-07-11 17:56] LABS: HPV APTIMA, High Risk Negative (Negative)
== END ==
PROVIDERS: PCP Internal Medicine; Referring Provider Obstetrics & Gynecology; Visit Provider Obstetrics & Gynecology
DX: Z12.4 Encounter for screening for malignant neoplasm of cervix (principal)
CPT/HCPCS: 87624; 88175; G0145

== ENCOUNTER → 2021-07-30 10:59 | Outpatient (CLI) | payer OTHER, MEDICARE, SELFPAY | PROVIDERS: PCP Internal Medicine; Referring Provider Physician Assistant Surgical; Visit Provider Physician Assistant Surgical | DX: Z11.52 Encounter for screening for COVID-19 (principal) | CPT/HCPCS: 87635; U0005; U0003 ==

== ENCOUNTER → 2021-08-02 10:49 | Outpatient (CLI) | payer OTHER, MEDICARE, SELFPAY | PROVIDERS: PCP Internal Medicine; Referring Provider Physician Assistant Surgical; Visit Provider Physician Assistant Surgical | DX: Z11.52 Encounter for screening for COVID-19 (principal) | CPT/HCPCS: 87635; U0005; U0003 ==

== ENCOUNTER → 2021-09-02 07:14 | Outpatient (CLI) | payer OTHER, MEDICARE, SELFPAY ==
[2021-09-02 07:43] LABS: Absolute Lymphocyte Count 1.58 X10^3/uL (0.83-4.51); Basophil# 0.03 X10^3/uL; Basophil% 0.6 % (0-1); Hematocrit 43.5 % (37-47); Hemoglobin 14.2 g/dL (12.0-15.0); Lymphocyte # 1.58 X10^3/ul (0.83-4.51); Lymphocyte % 31.5 % (19-41); Mean Corp Hgb Conc 32.6 g/dL (32-36); Mean Corpuscular Hgb 30.1 pg (27.0-32.0); Mean Corpuscular Volume 92.4 fL (81-99); Monocyte# 0.43 X10^3/uL; Monocyte% 8.6 % (0-10); NRBC Flagged by Analyzer 0 % (0-5); Neutrophil # 2.97 X10^3/uL (2.7-7.7); Neutrophil % 59.1 % (47-70); Platelet Count 187 K/mm3 (150-450); RBC Distribution Width CV 13.4 % (11.6-14.6); RBC Distribution Width SD 45.7 fl (35.1-43.9); Red Blood Count 4.71 M/mm3 (4.2-5.4)
[2021-09-02 08:06] LABS: ALB/GLOB Ratio 0.6 RATIO (0.9-2.4); AST(SGOT) 296 U/L (15-37); Alanine Aminotransfer ALT/SGPT 358 U/L (13-56); Albumin, Serum 3.2 g/dL (3.2-5.0); Alkaline Phosphatase 158 U/L (45-117); Anion Gap 7 (5-15); BUN 18 mg/dL (7-18); BUN/Creat Ratio 22.2 RATIO (10-20); Calcium,Total 9.3 mg/dL (8.5-10.1); Chloride 109 mmol/L (98-107); Creatinine, Serum 0.81 mg/dL (0.55-1.02); EST Glomerular Filtration Rate 75 mL/min (>60); Est Glom Filt Rate - Afr Amer 91 mL/min (>60); Glucose 149 mg/dL (74-106); Potassium 3.9 mmol/L (3.5-5.1); Protein, Total 8.2 g/dL (6.4-8.2); Sodium Level 139 mmol/L (136-145)
[2021-09-02 08:13] LABS: BNP,B-Type NATRIURETIC PEPTIDE 14.1 pg/mL (0-100)
== END ==
PROVIDERS: PCP Internal Medicine; Referring Provider Nurse Practitioner Family; Visit Provider Nurse Practitioner Family
DX: K75.81 Nonalcoholic steatohepatitis (NASH) (principal); I50.32 Chronic diastolic (congestive) heart failure; R06.00 Dyspnea, unspecified
CPT/HCPCS: 36415; 80053; 83880; 85025

== ENCOUNTER 2021-09-16 13:37 | Outpatient (RCR) | payer MEDICARE, SELFPAY | END 2021-10-11 23:59 | LOC: DC 13:37 | PROVIDERS: PCP Internal Medicine; Visit Provider Nurse Practitioner Family | DX: E66.01 Morbid (severe) obesity due to excess calories (principal); E11.65 Type 2 diabetes mellitus with hyperglycemia; Z68.42 Body mass index [BMI] 45.0-49.9, adult; K75.81 Nonalcoholic steatohepatitis (NASH); Z71.3 Dietary counseling and surveillance | CPT/HCPCS: G0108 ==

== ENCOUNTER 2021-11-29 08:39 | Outpatient (CLI) | payer MEDICARE, SELFPAY ==
[2021-11-29 12:19] LABS: T4 Free Direct 1.72 ng/dL (0.76-1.46); Thyroid Stim Hormone (TSH) 0.43 uIU/mL (0.358-3.74)
== END 2021-11-29 23:59 | disposition home or self-care (01) ==
LOC: BIMLAB 08:42
PROVIDERS: PCP Internal Medicine; Referring Provider Internal Medicine Endocrinology, Diabetes & Metabolism; Visit Provider Internal Medicine Endocrinology, Diabetes & Metabolism
DX: E89.0 Postprocedural hypothyroidism (principal)
CPT/HCPCS: 36415; 84439; 84443

== ENCOUNTER → 2022-01-25 | Outpatient (CLI) | payer MEDICARE, SELFPAY | END | disposition home or self-care (01) | LOC: LABSPEC 16:08 | PROVIDERS: PCP Internal Medicine; Referring Provider Physician Assistant; Visit Provider Physician Assistant | DX: R05.9 Cough, unspecified (principal) | CPT/HCPCS: 87635; U0003; U0005 ==

== ENCOUNTER → 2022-07-26 | Outpatient (CLI) | payer MEDICARE, SELFPAY ==
[2022-08-03 14:55] LABS: HPV Reflexed? NOT INDICATED
== END | disposition home or self-care (01) ==
LOC: LABSPEC 16:38
PROVIDERS: PCP Nurse Practitioner; Visit Provider Obstetrics & Gynecology
DX: Z12.4 Encounter for screening for malignant neoplasm of cervix (principal)
CPT/HCPCS: 88175; G0145

== ENCOUNTER → 2022-08-08 | Outpatient (CLI) | payer MEDICARE, SELFPAY ==
--- NOTE | 2022-08-08 07:39 | BI_ITS ---
MAMMOGRAPHY - BILATERAL SCREENING REASON FOR EXAM: Female, 66 years old. Routine annual screening examination. PERTINENT HISTORY: Personal history of breast cancer. Prior left lumpectomy with radiation and chemotherapy. TECHNIQUE: Digital bilateral breast christiano (3D mammographic acquisition) in the CC and MLO projections. 2-D mediolateral oblique (MLO) and craniocaudad (CC) views of both breasts were obtained. CAD: Full Field Digital Mammography with Computer Added Detection was performed. COMPARISON: Comparison is made with prior examination dated 05/13/2021. FINDINGS: Breast Composition: There are scattered areas of fibroglandular density. There are no dominant masses or suspicious calcifications. Once again, the patient is status post lumpectomy in the upper lateral aspect of the left breast with resultant deformity of the breast and the postsurgical dystrophic calcifications. Surgical clips are seen in the axillary region. No other significant abnormalities are identified. There has been no significant change since the prior study. BI/SCRN MAMM (CAD)W/CHRISTIANO BILAT IMPRESSION: Stable bilateral screening mammogram. Yearly follow-up mammogram recommended. (A) ASSESSMENT CATEGORY: BIRADS Category 2: Benign. A letter regarding these results will be sent to the patient by the facility within 30 days. Approximately 10% of breast cancers are not detected by mammography. A normal mammogram should not delay biopsy of a clinically suspicious abnormality. [id number] Electronically Signed: Pranay Mccann MD at 11:32 EST ,
== END | disposition home or self-care (01) ==
LOC: OPBI 07:38
PROVIDERS: PCP Nurse Practitioner; Visit Provider Obstetrics & Gynecology
DX: Z12.31 Encounter for screening mammogram for malignant neoplasm of breast (principal)
CPT/HCPCS: 77063; 77067

== ENCOUNTER → 2022-08-18 | Outpatient (CLI) | payer MEDICARE, SELFPAY ==
--- NOTE | 2022-08-18 06:46 | CT_ITS ---
STUDY: CT FACIAL BONES WITHOUT CONTRAST REASON FOR EXAM: Female, 66 years old. SINUSITIS. Palpable lump in the posterior aspect of the left skull. RADIATION DOSAGE (If Supplied By Facility): CTDIvol = ( 33.06 ) mGy, DLP = ( 788.40 ) mGycm TECHNIQUE: The patient was scanned in a multi detector CT scanner. Sagittal and coronal images were reconstructed. Individualized dose optimization techniques were used for this CT. COMPARISON: None. FINDINGS: Normal soft tissue structures. Normal orbital [place] and orbital contents. Normal nasal bones and anterior nasal spine. Normal facial bones. There is no demonstrated fracture. Partial opacification of the left sphenoid sinus. Mucosal thickening of the ethmoid sinuses. There is hypertrophy of the inferior turbinates bilaterally CT/Sinus/Facial Bone IMPRESSION: Partial opacification of the left sphenoid sinus as well as mucosal thickening of the ethmoid sinuses. Hypertrophy of the inferior turbinates bilaterally. Electronically Signed: Pranay Mccann MD at 8:35 EST ,
== END | disposition home or self-care (01) ==
LOC: CT 06:45
PROVIDERS: PCP Nurse Practitioner; Visit Provider Otolaryngology
DX: J32.8 Other chronic sinusitis (principal)
CPT/HCPCS: 70486

== ENCOUNTER 2022-08-27 20:16 | Emergency (ER) | payer MEDICARE, SELFPAY ==
[2022-08-27 20:17] VITALS: BP 138/68; PULSE 90; RESP 18; TEMP 35.8; O2SAT 97; BMI 48.9
--- NOTE | 2022-08-27 22:11 | EKG12_ITS ---
Test Reason : DYSRHYTHMIA Blood Pressure : / mmHG Vent. Rate : 067 BPM Atrial Rate : 067 BPM P-R Int : 188 ms QRS Dur : 140 ms QT Int : 478 ms P-R-T Axes : 021 110 031 degrees QTc Int : 505 ms Normal sinus rhythm Non-specific intra-ventricular conduction block Abnormal ECG Confirmed by TERESITA QUAN, BLANCA ([id number]), tape editor MILDRED PULIDO ([id number]) on 08/29/2022 12:50:55 PM Referred By: ANN Confirmed By:BLANCA LO MD
[2022-08-27] MEDS: Metoclopramide 10 MG/2 ML Vial IV (22:42)
[2022-08-27] MEDS: DiphenhydrAMINE 50 MG/ML Syringe 12.5 MG IV (22:42)
[2022-08-27 22:43] LABS: Absolute Lymphocyte Count 3.05 X10^3/uL (0.83-4.51); Absolute Neutrophil Count 3.8 X10^3/uL (2.0-7.7); Basophil# 0.03 X10^3/uL; Basophil% 0.4 % (0-1); Eosinophil# 0.15 X10^3/uL; Hematocrit 41.8 % (37-47); Lymphocyte # 3.05 X10^3/ul (0.83-4.51); Lymphocyte % 39.7 % (19-41); Mean Corp Hgb Conc 33.5 g/dL (32-36); Mean Corpuscular Hgb 29.7 pg (27.0-32.0); Mean Corpuscular Volume 88.7 fL (81-99); Mean Platelet Vol. 10.9 fl (6.2-12.0); Monocyte# 0.62 X10^3/uL; Monocyte% 8.1 % (0-10); NRBC Flagged by Analyzer 0 % (0-5); Neutrophil # 3.81 X10^3/uL (2.7-7.7); Neutrophil % 49.5 % (47-70); Platelet Count 202 K/mm3 (150-450); RBC Distribution Width CV 13.3 % (11.6-14.6); RBC Distribution Width SD 43.6 fl (35.1-43.9); Red Blood Count 4.71 M/mm3 (4.2-5.4); White Blood Count 7.7 K/mm3 (4.4-11.0)
[2022-08-27] MEDS: 0.9% Normal Saline 1,000 ML 1000 ML IV (22:43)
[2022-08-27 22:48] VITALS: PULSE 75; RESP 16; O2SAT 98
[2022-08-27 23:03] LABS: AST(SGOT) 103 U/L (15-37); Alanine Aminotransfer ALT/SGPT 190 U/L (13-56); Albumin, Serum 3.2 g/dL (3.2-5.0); Alkaline Phosphatase 112 U/L (45-117); Anion Gap 7 (5-15); BUN 19 mg/dL (7-18); BUN/Creat Ratio 18.3 RATIO (10-20); Bilirubin, Direct 0.11 mg/dL (0.00-0.30); Chloride 108 mmol/L (98-107); Creatinine, Serum 1.04 mg/dL (0.55-1.02); EST Glomerular Filtration Rate 56 mL/min (>60); Est Glom Filt Rate - Afr Amer 68 mL/min (>60); Estimated Creatinine Clearance 44.02 ml/min; Globulin 4.4 g/dL (2.2-4.2); Glucose 129 mg/dL (74-106); Potassium 3.9 mmol/L (3.5-5.1); Protein, Total 7.6 g/dL (6.4-8.2); Sodium Level 136 mmol/L (136-145)
--- NOTE | 2022-08-27 23:07 | CT_ITS ---
EXAM: CT ABDOMEN AND PELVIS WITH INTRAVENOUS CONTRAST CLINICAL INDICATION: abdominal pain TECHNIQUE: Helically acquired images were obtained of the abdomen and pelvis with intravenous contrast. This CT exam was performed using one or more of the following dose reduction techniques: automated exposure control, adjustment of the mA and/or kV according to patient size, and/or use of iterative reconstruction technique. This report was created using [employer] report generation technology. CONTRAST: IV 100mL [id number]-[id number] RADIATION DOSE: Total DLP: 1311.74 mGy-cm. COMPARISON: Abdominal pelvic CT of 10/29/2018. FINDINGS: LOWER THORAX: Minimal incidental atelectasis at the lung bases. No coronary artery calcification is visualized. No significant pericardial effusion. ABDOMEN: LIVER: Unremarkable. Homogeneous. No focal mass. GALLBLADDER AND BILE DUCTS: Cholecystectomy. Mild postcholecystectomy prominence of the common bile duct. No calcified common duct stone. PANCREAS: Unremarkable. No focal cystic or solid mass. SPLEEN: Unremarkable. Normal size without focal cystic or solid mass. ADRENALS: Unremarkable. No nodules. KIDNEYS AND URETERS: Kidneys are normal in size, with symmetric nephrograms. Left renal vascular calcification. No hydronephrosis or obstructing ureteral stone. No perirenal stranding. STOMACH AND BOWEL: Stomach is decompressed. No periduodenal inflammatory changes or distended small bowel loops. Numerous diverticula project from the distal descending and sigmoid colon. There is thickening of the wall of one of the diverticula projecting from the distal descending colon, with development of minimal fat stranding about this diverticulum, indicating minimal diverticulitis; this prominent diverticulum is best seen on coronal images 57-58 of series 601. The wall of the proximal to mid sigmoid colon remains mildly thickened consistent with muscular hypertrophy. No extraluminal air or abscess identified. PELVIS: APPENDIX: Normal. No evidence of acute appendicitis. BLADDER: Urinary bladder is nearly empty. REPRODUCTIVE: Atrophic uterus. No adnexal mass. ABDOMEN and PELVIS: INTRAPERITONEAL SPACE: No ascites or free air. BONES/JOINTS: Large osteophytes fuse lower thoracic disc spaces. Lumbar spine shows multilevel degenerative disc disease and extensive facet arthritis. Broad-based central to left paracentral disc protrusion noted at the L5/S1 level, unchanged. Degenerative osteoarthritis of both hip joints. No acute osseous abnormality. SOFT TISSUES: Tiny fat filled umbilical hernia again noted. VASCULATURE: Abdominal aorta is mildly calcific and is normal in caliber. Abdominal aorta is non-dilated. LYMPH NODES: A few scattered normal-sized mesenteric lymph nodes are incidentally noted. No enlarged lymph nodes. CT/Abdomen/Pelvis W IV Cont ONLY IMPRESSION: Findings of minimal diverticulitis of the distal descending colon. No extraluminal air or abscess. No obstructing ureteral stone or hydronephrosis. Normal appendix. Previous cholecystectomy. Electronically Signed: Carlos Badillo MD at 0:10 EST ,
[2022-08-27 23:49] LABS: Color, Urine Yellow (Yellow); Glucose, Dipstick Normal (Normal); Ketone-Dipstick 5 mg/dl (Negative); Leukocyte Esterase-Dipstick 25 /ul (Negative); Nitrite-Dipstick Negative (Negative); Occult Blood-Urine 10 /ul (Negative); Protein-Dipstick 30 mg/dl (Negative); Urine Clarity Sl. Cloudy (Clear); Urine Urobilinogen 1 mg/dl (Normal)
[2022-08-27 23:52] LABS: Urine Bilirubin Dipstick 1 mg/dL (Negative)
[2022-08-28 00:14] LABS: Amorphous Sediment 1+; Bacteria 3+ /hpf (None Seen); Mucous, Urine 1+ /hpf (<or=2+); Red Blood Cells-Urine 0-5 SEEN /hpf (0-5); Squamous Epithelial Cells - UA 10-25 SEEN /hpf (5-10); White Blood Cells 0-5 SEEN /hpf (0-5)
[2022-08-28 00:22] VITALS: PULSE 75; RESP 15; O2SAT 97
--- NOTE | 2022-08-28 00:23 | EDS_ITS ---
HPI History of Present Illness Chief Complaint: Nausea/Vomiting/Diarrhea Informant: patient and spouse/S.O. Onset/Context/Timing Onset: Days (6 days) Narrative Narrative: Patient presents with a 6-day history of nausea, vomiting, and diarrhea. She states she initially had some right-sided abdominal pain and had a temperature of 102 on the first day of her illness only. She is unable to keep anything in and today vomited up some rice that she had eaten roughly 6 hours prior. She denies urinary symptoms. No recent antibiotics. 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 Hepatic fibrosis, stage 3 History of breast cancer History of cardioversion History of cervical cancer History of colon cancer History of recurrent deep vein thrombosis (DVT) Hypersomnia Hypothyroidism Lichen sclerosus Lichen sclerosus Lipoma Malaise Nonobstructive atherosclerosis of coronary artery Obesity Other chest pain Paroxysmal atrial fibrillation Peptic ulcer disease Pneumonia Pure hypercholesterolemia PVD (peripheral vascular disease) Rectal cancer Rheumatoid arthritis Right bundle branch block (RBBB) Sleep apnea Soft tissue mass Type 2 diabetes mellitus Unstable angina UTI (urinary tract infection) Varicosities of leg Yeast infection Home Medications tramadol 50 mg tablet 50 mg PO Q6H PRN Pain 08/23/18 [History Last Taken Unknown] ergocalciferol (vitamin D2) 1,250 mcg (50,000 unit) capsule 50,000 unit PO .COMPLEX 03/04/19 [History Last Taken Unknown] celecoxib 200 mg capsule 200 mg PO 1200 08/05/19 [History Last Taken Unknown] blood-glucose meter (FreeStyle Moriches Lite kit) #1 ea 01/06/20 [Rx Last Taken Unknown] lancing device with lancets kit (LaunchCyte Delica Plus Lancing Device kit) #1 ea 08/13/20 [Rx Last Taken Unknown] compress.stocking,knee,reg,lrg #2 ea 08/31/20 [Rx Last Taken Unknown] Synthroid 200 mcg tablet (levothyroxine) 200 mcg PO DAILY #90 tabs 05/26/21 [Rx Last Taken Unknown] nystatin 100,000 unit/gram topical powder (Nystop) 1 applic topical BID #45 ea 07/06/21 [Rx Last Taken Unknown] golimumab 12.5 mg/mL intravenous solution (Simponi ARIA) See Rx Instructions .Route .COMPLEX 08/24/21 [History Last Taken Unknown] omeprazole 40 mg capsule,delayed release 40 mg PO DAILY 08/24/21 [History Last Taken Unknown] furosemide 20 mg tablet 40 mg PO Q OTHER DAY edema #90 tabs 11/04/21 [Rx Last Taken Unknown] FreeStyle Lite Strips (blood sugar diagnostic) #300 ea 12/08/21 [Rx Last Taken Unknown] lancets 28 gauge (FreeStyle Lancets) #120 ea 12/08/21 [Rx Last Taken Unknown] fluticasone propionate 50 mcg/actuation nasal spray,suspension (Allergy Relief (fluticasone)) 2 spray intranasal DAILY #18.2 mL 01/25/22 [Rx Last Taken Unknown] albuterol sulfate 90 mcg/actuation aerosol inhaler (ProAir HFA) 2 puff inhalation Q4H PRN shortness of breath or wheezing #8.5 grams 01/26/22 [Rx Last Taken Unknown] apixaban 5 mg tablet (Eliquis) 5 mg PO BID #180 tabs 06/02/22 [Rx Last Taken Unknown] atorvastatin 20 mg tablet 20 mg PO DAILY 06/02/22 [History Last Taken Unknown] flecainide 100 mg tablet 100 mg PO Q12H #180 tabs 06/02/22 [Rx Last Taken Unknown] glipizide 5 mg tablet, extended release 24 hr 5 mg PO DAILY 06/02/22 [History Last Taken Unknown] losartan 25 mg tablet 12.5 mg PO DAILY #45 tabs 06/02/22 [Rx Last Taken Unknown] metoprolol tartrate 25 mg tablet 12.5 mg PO DAILY #45 tabs 06/02/22 [Rx Last Taken Unknown] potassium chloride 10 mEq capsule,extended release 10 meq PO DAILY #90 caps 06/02/22 [Rx Last Taken Unknown] prednisone 20 mg tablet 40 mg PO DAILY #14 tabs 06/23/22 [Rx Last Taken Unknown] clobetasol 0.05 % topical ointment 1 applic topical QHS #30 grams 07/26/22 [Rx Last Taken Unknown] ofloxacin 0.3 % ear drops 10 drp otic (ear) BID #10 mL 07/28/22 [Rx Last Taken Unknown] metoclopramide HCl 10 mg tablet (Reglan) 10 mg PO Q6H PRN nausea and vomiting #14 tabs 08/28/22 [Rx Last Taken Unknown] metronidazole 500 mg tablet 500 mg PO BID 10 days #20 tabs 08/28/22 [Rx Last Taken Unknown] Allergy/AdvReac Type Severity Reaction Status Date / Time infliximab [From Remicade] Allergy Severe Anaphylaxis Verified 08/28/22 00:28 oxymetazoline Allergy Severe CHEST PAIN Verified 08/28/22 00:28 [From Afrin (oxymetazoline)] Penicillins Allergy Hives Verified 08/28/22 00:28 adhesive tape AdvReac Severe / Verified 08/28/22 00:28 clarithromycin AdvReac Severe crmps and Verified 08/28/22 00:28 diarrhea latex AdvReac Severe / Verified 08/28/22 00:28 spironolactone AdvReac Severe headaches Verified 08/28/22 00:28 [From Aldactone] Family History Mother Rheumatoid arthritis Brother Rheumatoid arthritis CAD (coronary artery disease) Heart disease Father CAD (coronary artery disease) Kidney disease Heart disease Grandmother Breast cancer Surgical History H/O thyroidectomy History of cholecystectomy History of left heart catheterization (LHC) History of liver biopsy History of lumpectomy of left breast History of mastectomy, subtotal Lipoma S/P left knee arthroscopy Social History Smoking Status: Former smoker how long ago did patient quit smokin years ago second hand exposure: Yes alcohol intake: current alcohol intake frequency: holidays/special occasions only details: social substance use type: does not use caffeine: Yes Type: coffee Number of servings: 1 what type of physical activity do you participate in: none seatbelt use: always do you feel safe at home: Yes additional social history: [employer] Patient is retired ROS ROS ED Constitutional Constitutional ED: Reports other Details: Fever initial day of illness only ; Denies chills Eyes Eyes: Denies change in vision or discharge from eye(s) ENT ENT ED: Denies discharge from eye(s), rhinorrhea or sore throat Cardiovascular Cardiovascular: Denies chest pain or palpitations Respiratory/Chest Respiratory/Chest: Denies cough or dyspnea Gastrointestinal Gastrointestinal: Reports abdominal pain, diarrhea, nausea and vomiting Genitourinary Genitourinary ED: Denies dysuria Musculoskeletal Musculoskeletal: Denies back pain or extremity pain Integumentary Denies Abrasions or rash Neurologic Neurologic: Denies headache(s) or weakness Psychiatric Psychiatric: Denies anxiety or depression Allergic/Immunologic Allergic/Immunologic ED: Denies lip swelling or urticaria EXAM Physical Exam Const Vital Signs: 08/27/22 20:17 08/27/22 20:17 08/27/22 22:48 Temperature 96.4 F L 96.4 F L Temperature Source Temporal Temporal Pulse Rate 90 90 75 Respiratory Rate 18 18 16 Blood Pressure 138/68 H 138/68 H Blood Pressure Mean 91 91 Pulse Ox 97 97 98 Oxygen Delivery Method Room Air Room Air Room Air 08/28/22 00:22 Temperature Temperature Source Pulse Rate 75 Respiratory Rate 15 Blood Pressure Blood Pressure Mean Pulse Ox 97 Oxygen Delivery Method Room Air Positive well nourished and well developed General Appearance ED: well developed HEENT Reports normocephalic and head/scalp atraumatic Eyes PERRL and EOMs intact bilaterally Neck supple Chest Wall inspection of chest normal and palpation of chest normal Resp normal respiratory effort and clear to auscultation bilaterally Cardio regular rate and regular rhythm GI non-tender Auscultation: hypoactive bowel sounds Palpation: soft Extremity normal to inspection Neuro oriented x3 and no sensory deficits noted Sensorium / Orientation: alert Motor Exam: strength 5/5 throughout Psych mental status grossly normal Skin no rashes or lesions noted MDM MDM MDM Narrative Medical decision making narrative: Patient given IV fluids and Reglan. EKG obtained along with lab work. CT abdomen pelvis obtained along with urinalysis. Lab Data Attestation: I reviewed the patient's lab results. Labs: Laboratory Results - last 24 hr 08/27/22 08/27/22 08/27/22 22:39 22:39 23:30 WBC 7.7 RBC 4.71 Hgb 14.0 Hct 41.8 MCV 88.7 MCH 29.7 MCHC 33.5 RDW Std Deviation 43.6 RDW Coeff of Debi 13.3 Plt Count 202 MPV 10.9 Immature Gran % (Auto) 0.300 Neut % (Auto) 49.5 Lymph % (Auto) 39.7 [place] % (Auto) 8.1 Eos % (Auto) 2.0 Baso % (Auto) 0.4 Absolute Neuts (auto) 3.8 Absolute Lymphs (auto) 3.05 Nucleated RBC % 0 Sodium 136 Potassium 3.9 Chloride 108 H Carbon Dioxide 21.0 Anion Gap 7 BUN 19 H Creatinine 1.04 H Estim Creat Clear Calc 44.02 Est GFR (MDRD) Af Amer 68 Est GFR (MDRD) Non-Af 56 L BUN/Creatinine Ratio 18.3 Glucose 129 H Calcium 9.0 Total Bilirubin 0.50 Direct Bilirubin 0.11 AST 103 H ALT 190 H Alkaline Phosphatase 112 Total Protein 7.6 Albumin 3.2 Globulin 4.4 H Urine Color Yellow Urine Clarity Sl. Cloudy Urine pH 6.0 Ur Specific Tucker 1.020 Urine Protein 30 H Urine Glucose (UA) Normal Urine Ketones 5 H Urine Occult Blood 10 H Urine Nitrite Negative Urine Bilirubin 1 H Urine Urobilinogen 1 H Ur Leukocyte Esterase 25 H Urine RBC 0-5 SEEN Urine WBC 0-5 SEEN Ur Squamous Epith Cells 10-25 SEEN Amorphous Sediment 1+ Urine Bacteria 3+ Urine Mucus 1+ Radiography Diagnostic Testing: Clinical Impression(s) from Imaging Studies Abdomen/Pelvis CT 08/27/22 23:07 IMPRESSION: Findings of minimal diverticulitis of the distal descending colon. No extraluminal air or abscess. No obstructing ureteral stone or hydronephrosis. Normal appendix. Previous cholecystectomy. Electronically Signed: Carlos Badillo MD at 0:10 EST , EKG Initial EKG: Attestation: I personally reviewed and interpreted this EKG as follows: Interpretation: Sinus Rhythm (Sinus at 67 with a QTC of 505. Interventricular conduction delay noted. Prior EKG from June 2017 reveals a QTC of 471.) Treatment and Re-Evaluation Narrative: CBC was normal white count and normal differential. Chemistry studies unremarkable with a creatinine of 1.04. LFTs are normal. Urinalysis is not a clean sample but no overt signs of infection. Stool studies were sent. CT scan of the abdomen pelvis reveals minimal diverticulitis in the distal descending colon. On repeat evaluation patient's nausea is improved. Test results are discussed with patient and at bedside. We will go ahead and cover her with antibiotics for diverticulitis. Patient has an allergy to penicillins. I will treat her with Flagyl. Because she has a prolonged QTC I do not feel comfortable prescribing her Cipro or Levaquin. She clinically looks well I do not believe she needs to be admitted for IV antibiotics with very minimal diverticulitis. Patient was advised that if her stool studies are positive she will be called and appropriate treatment changes will be made. Discharge Plan Triage Chief Complaint: Nausea/Vomiting/Diarrhea ED Provider: Corrie Donis Dx/Rx/DC Orders Clinical Impression: Diverticulitis, Vomiting, Diarrhea Instructions: ED Diet Vomiting Diarrhea, ED Diverticulitis, ED Vomiting (Adult) Prescriptions: New metronidazole 500 mg tablet 500 mg PO BID 10 Days Qty: 20 0RF metoclopramide HCl [Reglan] 10 mg tablet 10 mg PO Q6H PRN (Reason: nausea and vomiting) Qty: 14 0RF No Action tramadol 50 mg tablet 50 mg PO Q6H PRN (Reason: Pain) (DME) blood-glucose meter [FreeStyle Moriches Lite] Kit See Rx Instructions .ROUTE .MEDSUPPLY Qty: 1 0RF Rx Instructions: As directed (DME) lancing device with lancets [OneTouch Delica Plus Lanc Dev] Kit See Rx Instructions .ROUTE .MEDSUPPLY Qty: 1 0RF Rx Instructions: As directed (DME) compress.stocking,knee,reg,lrg Misc See Rx Instructions .MEDSUPPLY Qty: 2 1RF Rx Instructions: wear daily for venous insufficiency 20-30 mmHg nystatin [Nystop] 100,000 unit/gram powder 1 applic topical BID Qty: 45 7RF clobetasol 0.05 % ointment 1 applic topical QHS Qty: 30 3RF Rx Instructions: apply thin layer; massage gently into affected area nightly x 6 weeks then 1- 2x weekly omeprazole 40 mg capsule,delayed release(DR/EC) 40 mg PO DAILY Simponi ARIA 12.5 mg/mL solution See Rx Instructions .ROUTE .COMPLEX Rx Instructions: 2 mg/kg IV every 8 weeks; glipizide 5 mg tablet extended release 24hr 5 mg PO DAILY Label Comments: TAKE 1 TABLET BY MOUTH DAILY atorvastatin 20 mg tablet 20 mg PO DAILY Eliquis 5 mg tablet 5 mg PO BID Qty: 180 3RF flecainide 100 mg tablet 100 mg PO Q12H Qty: 180 3RF losartan 25 mg tablet 12.5 mg PO DAILY Qty: 45 3RF metoprolol tartrate 25 mg tablet 12.5 mg PO DAILY Qty: 45 3RF potassium chloride 10 mEq capsule, extended release 10 meq PO DAILY Qty: 90 3RF fluticasone propionate [Allergy Relief (fluticasone)] 50 mcg/actuation spray,suspension 2 spray INTRANASAL DAILY Qty: 18.2 12RF Rx Instructions: administer into each nostril albuterol sulfate [ProAir HFA] 90 mcg/actuation HFA aerosol inhaler 2 puff INHALATION Q4H PRN (Reason: shortness of breath or wheezing) Qty: 8.5 4RF ofloxacin 0.3 % drops 10 drp otic (ear) BID Qty: 10 2RF ergocalciferol (vitamin D2) 50,000 unit capsule 50,000 unit PO .COMPLEX Label Comments: SUPPLEMENT (TAKES TWICE A WEEK) MONDAY AND MONDAY Rx Instructions: 50,000 unit PO twice weekly; 2 a week celecoxib 200 mg capsule 200 mg PO 1200 levothyroxine [Synthroid] 200 mcg tablet 200 mcg PO DAILY Qty: 90 3RF furosemide 20 mg tablet 40 mg PO Q OTHER DAY Qty: 90 3RF (DME) lancets [FreeStyle Lancets] 28 gauge misc See Rx Instructions .ROUTE .MEDSUPPLY Qty: 120 6RF Rx Instructions: 4x/day (DME) FreeStyle Lite Strips Strip See Rx Instructions .ROUTE .MEDSUPPLY Qty: 300 3RF Rx Instructions: 3 times daily prednisone 20 mg tablet 40 mg PO DAILY Qty: 14 0RF Primary Care Provider: Leonora Davalos NP Referrals: Leonora Davalos NP, [employer] [Primary Care Provider] - 1-2 Weeks Disposition Disposition: Home, Self Care Discharge Date/Time: 08/28/22 01:25
[2022-08-28] MEDS: metroNIDAZOLE 500 MG Tablet PO (01:10)
== END 2022-08-28 01:25 | disposition home or self-care (01) ==
PROVIDERS: Emergency Provider Emergency Medicine; PCP Nurse Practitioner; Visit Provider Emergency Medicine
DX: K57.32 Diverticulitis of large intestine without perforation or abscess without bleeding (principal); E11.51 Type 2 diabetes mellitus with diabetic peripheral angiopathy without gangrene; I50.32 Chronic diastolic (congestive) heart failure; I48.0 Paroxysmal atrial fibrillation; I25.119 Atherosclerotic heart disease of native coronary artery with unspecified angina pectoris; E78.00 Pure hypercholesterolemia, unspecified; R19.7 Diarrhea, unspecified; E66.9 Obesity, unspecified; Z79.01 Long term (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; Z79.899 Other long term (current) drug therapy; Z79.52 Long term (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 systemic steroids; Z87.891 Personal history of nicotine dependence
CPT/HCPCS: 74177; 80048; 80076; 81001; 85025; 87506; 93005; 96361; 96374; 96375; 99282; J7030; Q9967; A4216

== ENCOUNTER → 2022-09-16 | Outpatient (CLI) | payer MEDICARE, SELFPAY ==
[2022-09-16 13:12] LABS: Erythrocyte Sedimentation Rate 34 mm/hr (0-30)
[2022-09-16 13:13] LABS: Absolute Lymphocyte Count 3.32 X10^3/uL (0.83-4.51); Absolute Neutrophil Count 3.8 X10^3/uL (2.0-7.7); Basophil# 0.04 X10^3/uL; Basophil% 0.5 % (0-1); Eosinophil# 0.09 X10^3/uL; Eosinophils% 1.2 % (0-5); Hematocrit 44.4 % (37-47); Hemoglobin 14.3 g/dL (12.0-15.0); Lymphocyte # 3.32 X10^3/ul (0.83-4.51); Lymphocyte % 42.9 % (19-41); Mean Corp Hgb Conc 32.2 g/dL (32-36); Mean Corpuscular Volume 90.1 fL (81-99); Mean Platelet Vol. 11.4 fl (6.2-12.0); Monocyte# 0.48 X10^3/uL; Monocyte% 6.2 % (0-10); NRBC Flagged by Analyzer 0 % (0-5); Neutrophil # 3.77 X10^3/uL (2.7-7.7); Neutrophil % 48.8 % (47-70); Platelet Count 232 K/mm3 (150-450); RBC Distribution Width CV 13.5 % (11.6-14.6); RBC Distribution Width SD 44.7 fl (35.1-43.9); Red Blood Count 4.93 M/mm3 (4.2-5.4); White Blood Count 7.7 K/mm3 (4.4-11.0)
[2022-09-16 13:37] LABS: ALB/GLOB Ratio 0.8 RATIO (0.9-2.4); AST(SGOT) 127 U/L (15-37); Alanine Aminotransfer ALT/SGPT 186 U/L (13-56); Albumin, Serum 3.7 g/dL (3.2-5.0); Alkaline Phosphatase 138 U/L (45-117); Anion Gap 5 (5-15); BUN 19 mg/dL (7-18); BUN/Creat Ratio 22.8 RATIO (10-20); CRP < 2.90 mg/L (0.0-3.0); Calcium,Total 9.8 mg/dL (8.5-10.1); Chloride 110 mmol/L (98-107); Creatinine, Serum 0.83 mg/dL (0.55-1.02); EST Glomerular Filtration Rate 73 mL/min (>60); Est Glom Filt Rate - Afr Amer 88 mL/min (>60); Globulin 4.4 g/dL (2.2-4.2); Glucose 168 mg/dL (74-106); LDH 242 U/L (84-246); Potassium 4.2 mmol/L (3.5-5.1); Protein, Total 8.1 g/dL (6.4-8.2); Sodium Level 141 mmol/L (136-145)
[2022-09-19 13:07] LABS: Anti-Centromere B Ab <0.2 AI (0.0-0.9); Anti-Chromatin <0.2 AI (0.0-0.9); Anti-Jo <0.2 AI (0.0-0.9); Anti-Scleroderma-70 AB <0.2 AI (0.0-0.9); RNP Ab 0.6 AI (0.0-0.9); SJOGREN'S Anti-SS-A test < 0.2 AI (0.0-0.9); SJOGREN'S Anti-SS-B test < 0.2 AI (0.0-0.9); Smith Ab <0.2 AI (0.0-0.9)
[2022-09-19 15:07] LABS: Endomysial Antibody IgA Negative (Negative)
[2022-09-19 16:06] LABS: Immunoglobulin A 349 mg/dL (87-352); t-Transglutaminase IgA <2 U/mL (0-3)
[2022-09-19 16:20] LABS: Anti-dsDNA Ab <1 IU/mL (0-9)
[2022-09-22 00:06] LABS: Albumin 3.4 g/dL (2.9-4.4); Alpha-1-Globulins 0.3 g/dL (0.0-0.4); Alpha-2-Globulins 0.9 g/dL (0.4-1.0); Cytoplasmic Ab (C-ANCA) <1:20 titer (Neg:<1:20); Gamma Globulin 1.4 g/dL (0.4-1.8); Immunoglobulin A 351 mg/dL (87-352); Immunoglobulin E 36 IU/mL (6-495); Immunoglobulin G 1366 mg/dL (586-1602); Immunoglobulin M 212 mg/dL (26-217); PROEL- TOTAL PROTEIN 7.5 g/dL (6.0-8.5)
[2022-09-22 21:44] LABS: Calprotectin, Stool 54 ug/g (0-120)
[2022-09-22 21:52] LABS: IMMUNOFIXATION RESULT,S Comment: (.); Perinuclear Ab (P-ANCA) <1:20 titer (Neg:<1:20)
== END | disposition home or self-care (01) ==
PROVIDERS: PCP Nurse Practitioner; Referring Provider Nurse Practitioner Adult Health; Visit Provider Nurse Practitioner Adult Health
DX: K57.90 Diverticulosis of intestine, part unspecified, without perforation or abscess without bleeding (principal)
CPT/HCPCS: 36415; 80053; 82784; 82785; 83516; 83615; 83630; 83993; 84165; 85025; 85652; 86140; 86225; 86235; 86255; 86256; 86334

== ENCOUNTER → 2022-11-17 | Outpatient (CLI) | payer MEDICARE, SELFPAY ==
[2022-11-17 10:33] LABS: Absolute Lymphocyte Count 3.03 X10^3/uL (0.83-4.51); Absolute Neutrophil Count 2.5 X10^3/uL (2.0-7.7); Basophil# 0.02 X10^3/uL; Basophil% 0.3 % (0-1); Eosinophils% 1.7 % (0-5); Hematocrit 43.3 % (37-47); Lymphocyte # 3.03 X10^3/ul (0.83-4.51); Lymphocyte % 50.6 % (19-41); Mean Corp Hgb Conc 32.3 g/dL (32-36); Mean Corpuscular Hgb 29.2 pg (27.0-32.0); Mean Corpuscular Volume 90.4 fL (81-99); Mean Platelet Vol. 11.4 fl (6.2-12.0); Monocyte# 0.38 X10^3/uL; Monocyte% 6.3 % (0-10); NRBC Flagged by Analyzer 0 % (0-5); Neutrophil # 2.45 X10^3/uL (2.7-7.7); Neutrophil % 40.9 % (47-70); Platelet Count 204 K/mm3 (150-450); RBC Distribution Width CV 13.6 % (11.6-14.6); RBC Distribution Width SD 45.1 fl (35.1-43.9); Red Blood Count 4.79 M/mm3 (4.2-5.4)
[2022-11-17 11:34] LABS: AST(SGOT) 127 U/L (15-37); Alanine Aminotransfer ALT/SGPT 180 U/L (13-56); Albumin, Serum 3.6 g/dL (3.2-5.0); Alkaline Phosphatase 179 U/L (45-117); Anion Gap 6 (5-15); BUN 14 mg/dL (7-18); BUN/Creat Ratio 18.4 RATIO (10-20); Calcium,Total 9.5 mg/dL (8.5-10.1); Chloride 106 mmol/L (98-107); Cholesterol 217 mg/dL (200); Creatinine, Serum 0.76 mg/dL (0.55-1.02); EST Glomerular Filtration Rate 81 mL/min (>60); Est Glom Filt Rate - Afr Amer 98 mL/min (>60); Globulin 4.4 g/dL (2.2-4.2); Glucose 156 mg/dL (74-106); High Density Lipoprotein 52 mg/dL; Potassium 4.2 mmol/L (3.5-5.1); Sodium Level 139 mmol/L (136-145); Thyroid Stim Hormone (TSH) 1.03 uIU/mL (0.358-3.74); Triglycerides 142 mg/dL; Very Low Density Lipoprotein 28 mg/dL (5-40)
== END | disposition home or self-care (01) ==
LOC: LAB 09:35
PROVIDERS: PCP Nurse Practitioner; Referring Provider Nurse Practitioner Family; Visit Provider Nurse Practitioner Family
DX: I50.32 Chronic diastolic (congestive) heart failure (principal); E11.65 Type 2 diabetes mellitus with hyperglycemia; I48.0 Paroxysmal atrial fibrillation; R19.7 Diarrhea, unspecified; R53.83 Other fatigue
CPT/HCPCS: 36415; 80048; 80061; 80076; 83036; 84443; 85025

== ENCOUNTER → 2023-04-17 | Outpatient (CLI) | payer MEDICARE, SELFPAY ==
[2023-04-17 12:51] VITALS: PULSE 103; PULSE 104; PULSE 105; PULSE 107; PULSE 86; PULSE 88; PULSE 94; O2SAT 91; O2SAT 92; O2SAT 93; O2SAT 94; O2SAT 95; O2SAT 97
--- NOTE | 2023-04-18 08:13 | PCM.PSN.6M ---
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 Assistive device used: None Pre-test Oxygen Delivery Method Room Air Pulse Ox 97 Pulse Rate (60-100) 86 Dyspnea Erma Scale (0-10) 2 Reported Symptoms Increased Work of Breathing 1st minute Oxygen Delivery Method Room Air Pulse Ox 92 Pulse Rate (60-100) 94 Dyspnea Erma Scale (0-10) 3 Number of Rests Taken 0 Reported Symptoms Increased Work of Breathing 2nd minute Oxygen Delivery Method Room Air Pulse Ox 91 Pulse Rate (60-100) 104 H Dyspnea Erma Scale (0-10) 4 Number of Rests Taken 1 Reported Symptoms Increased Work of Breathing 3rd minute Oxygen Delivery Method Room Air Pulse Ox 93 Pulse Rate (60-100) 103 H Dyspnea Erma Scale (0-10) 4 Number of Rests Taken 1 Reported Symptoms Increased Work of Breathing 4th minute Oxygen Delivery Method Room Air Pulse Ox 95 Pulse Rate (60-100) 107 H Dyspnea Erma Scale (0-10) 4 Number of Rests Taken 0 Reported Symptoms Increased Work of Breathing 5th minute Oxygen Delivery Method Room Air Pulse Ox 94 Pulse Rate (60-100) 105 H Dyspnea Erma Scale (0-10) 4 Number of Rests Taken 1 Reported Symptoms Increased Work of Breathing 6th minute Oxygen Delivery Method Room Air Pulse Ox 92 Pulse Rate (60-100) 104 H Dyspnea Erma Scale (0-10) 4 Number of Rests Taken 0 Reported Symptoms Increased Work of Breathing Post-test Oxygen Delivery Method Room Air Pulse Ox 95 Pulse Rate (60-100) 88 Dyspnea Erma Scale (0-10) 2 Reported Symptoms Increased Work of Breathing Full Laps Walked 8 Partial Lap, Number of Tiles Walked 17 Total Distance Walked (ft) 489 Interpretation Interpretation: The patient ambulated 489 feet over the course of 6 minutes beginning on room air without assistive devices. Pretesting oxygen saturation was noted to be 97% on room air. With ambulation, the talon oxygen saturation was 91%. There was evidence of both impaired walk distance and significant exertional oxygen desaturation, consistent with a pulmonary limitation to exercise tolerance. Recommendations Recommendations: There is no indication for the use of supplemental oxygen at this time. However, close interval follow-up was recommended, given the degree of oxygen desaturation noted during this study.
== END | disposition home or self-care (01) ==
LOC: PSN 11:59
PROVIDERS: PCP Nurse Practitioner; Referring Provider Nurse Practitioner Acute Care; Visit Provider Nurse Practitioner Acute Care
DX: R06.09 Other forms of dyspnea (principal)
CPT/HCPCS: 94618

== ENCOUNTER → 2023-05-22 | Outpatient (CLI) | payer MEDICARE, SELFPAY ==
--- NOTE | 2023-05-22 06:22 | ECHOD_ITS ---
Reason For Study: DYSPNEA Procedure This was a 2D Doppler, Color Flow transthoracic echocardiogram. Exam performed in department. Left Ventricle Normal LV size. Left ventricular systolic function is normal. The estimated ejection fraction is 65 %. Stage 1 diastolic dysfunction. No regional wall motion abnormalities noted. Right Ventricle Normal RV size. Normal systolic function. Atria Normal left atrium. Normal right atrium. Bubble contrast study negative for right to left interatrial shunt. Mitral Valve Normal mitral valve. Trivial mitral valve insufficiency. Tricuspid Valve Normal tricuspid valve. Aortic Valve Normal aortic valve. Trisinus/trileaflet aortic valve. Pulmonic Valve Normal pulmonic valve. Great Vessels Normal aortic root. The pulmonary artery is normal size. Normal inferior vena cava. Pericardium/Pleural No pericardial effusion. Medication Performed a rapid injection of agitated mix of 9 cc saline and 1cc air to assess for atrial septal defect. MMode/2D Measurements & Calculations LVIDd: 4.6 cm IVSd: 1.2 cm Ao root diam: 3.5 cm LVIDs: 3.2 cm LVPWd: 1.0 cm RVDd: 3.3 cm FS: 31.4 % LAV(MOD-bp): 53.9 ml LVAd ap4: 26.2 cm2 SV(MOD-sp4): 49.6 ml LAV(MOD-bp) Indexed: 24.4 ml/m2 LVLd ap4: 7.5 cm LAV(MOD-sp2): 48.1 ml EDV(MOD-sp4): 76.2 ml LAV(MOD-sp4): 56.1 ml EDV(sp4-el): 77.4 ml LVAs ap4: 14.2 cm2 LVLs ap4: 6.4 cm ESV(MOD-sp4): 26.6 ml ESV(sp4-el): 26.8 ml EF(MOD-sp4): 65.1 % EF(sp4-el): 65.3 % SV(sp4-el): 50.5 ml LA A4 area: 20.7 cm2 LA dimension(2D): 3.9 cm RA A4 area: 14.0 cm2 TAPSE: 2.2 cm Time Measurements MV dec time: 0.12 sec Doppler Measurements & Calculations MV E max brandin: 66.3 cm/sec Lat Peak E' Brandin: 11.4 cm/sec Med Peak E' Brandin: 5.7 cm/sec MV A max brandin: 92.4 cm/sec E/E' lat: 5.8 E/E' med: 11.6 MV E/A: 0.72 MV V2 max: 88.2 cm/sec MV dec slope: 554.9 cm/sec2 Ao V2 max: 124.3 cm/sec MV max P.1 mmHg Ao max P.2 mmHg MV V2 mean: 57.0 cm/sec Ao V2 mean: 85.7 cm/sec MV mean P.4 mmHg Ao mean P.3 mmHg MV V2 VTI: 25.7 cm Ao V2 VTI: 28.4 cm AV (velocity ratio): 0.61 LV V1 max: 81.5 cm/sec PA V2 max: 95.4 cm/sec LV V1 max P.7 mmHg PA V2 mean: 74.8 cm/sec LV V1 mean P.5 mmHg LV V1 mean: 57.1 cm/sec LV V1 VTI: 17.2 cm ECHO/Echo Complete Interpretation Summary Normal LV size. Left ventricular systolic function is normal. The estimated ejection fraction is 65 %. Stage 1 diastolic dysfunction. Bubble contrast study negative for right to left interatrial shunt. Ordering Physician: Mehrdad Ruth Referring Physician: Carson Hobbs Performed By: Silva Montgomery RCS
--- NOTE | 2023-05-22 15:58 | STRESSREP_ITS ---
Stress Test Report Pharmacologic myocardial perfusion stress test. 67-year-old lady with a history of chest pain Resting EKG demonstrates sinus rhythm with a rate of 74 bpm. Right bundle branch block pattern is noted. Resting blood pressure is 130/82 mmHg. 0.4 mg of regadenoson was infused per usual protocol followed by rapid intravenous saline flush injection. Continuous EKG monitoring was performed. The maximum heart rate was 110 bpm which was 71% of max impacted heart rate the maximum workload was 1 metabolic equivalent. At rest there were no ST or T wave changes noted to suggest ischemia and at peak infusion nonspecific ST changes were noted which did not meet the criteria for ischemia. No clinical angina is noted. The final blood pressure was 120/70 mmHg. Myocardial perfusion protocol. 14.8 mCi of technetium 99m sestamibi was injected at rest. 0.4 mg of regadenoson was infused per usual protocol. At peak infusion 45.0 mCi of tech netium 99m sestamibi was injected stress images were obtained stress and rest images were reconstructed and compared in the short axis vertical long and horizontal long axis. Gated images were also obtained. Perfusion SPECT analysis: Review of the stress images demonstrate normal uptake of tracer noted in all areas of the myocardium. The resting images similar demonstrated normal uptake of tracer noted in all areas of the myocardium. No areas of reversibility are noted to suggest ischemia and no previous infarct is noted. Gated SPECT analysis: The gated ejection fraction is 63%. Conclusion: Normal pharmacologic myocardial perfusion stress test. Preserved ejection fraction.
== END | disposition home or self-care (01) ==
LOC: CVS 06:20
PROVIDERS: PCP Nurse Practitioner; Referring Provider Internal Medicine Cardiovascular Disease; Visit Provider Internal Medicine Cardiovascular Disease
DX: R06.09 Other forms of dyspnea (principal)
CPT/HCPCS: 78452; 93017; 93306; A9500; A4216; J2785

== ENCOUNTER → 2023-08-10 | Outpatient (CLI) | payer MEDICARE, SELFPAY ==
--- NOTE | 2023-08-10 07:18 | BI_ITS ---
MAMMOGRAPHY - BILATERAL SCREENING REASON FOR EXAM: Female, 67 years old. Routine annual screening examination. PERTINENT HISTORY: Personal history of breast cancer. Prior left lumpectomy with radiation treatment and left breast biopsy. Mother with breast cancer. TECHNIQUE: Digital bilateral breast christiano (3D mammographic acquisition) in the CC and MLO projections. 2-D mediolateral oblique (MLO) and craniocaudad (CC) views of both breasts were obtained. CAD: Full Field Digital Mammography with Computer Added Detection was performed. COMPARISON: Comparison is made with prior study August 08, 2020 and May 13, 2021. FINDINGS: Breast Composition: There are scattered areas of fibroglandular density. There are no dominant masses or suspicious calcifications. Once again, the patient is status post lumpectomy in the upper lateral portion of the left breast with resultant breast deformity and postsurgical dystrophic calcification. Surgical clips also seen in the left axilla. No other significant abnormalities are identified. There has been no significant change since the prior study. BI/SCRN MAMM (CAD)W/CHRISTIANO BILAT IMPRESSION: Stable bilateral screening mammogram. Yearly follow-up mammogram recommended. (A) ASSESSMENT CATEGORY: BIRADS Category 2: Benign. A letter regarding these results will be sent to the patient by the facility within 30 days. Approximately 10% of breast cancers are not detected by mammography. A normal mammogram should not delay biopsy of a clinically suspicious abnormality. [id number] Electronically Signed: Pranay Mccann MD at 12:14 EST ,
== END | disposition home or self-care (01) ==
LOC: OPBI 07:17
PROVIDERS: PCP Nurse Practitioner; Referring Provider Obstetrics & Gynecology; Visit Provider Obstetrics & Gynecology
DX: Z12.31 Encounter for screening mammogram for malignant neoplasm of breast (principal)
CPT/HCPCS: 77063; 77067

== ENCOUNTER → 2023-08-28 | Outpatient (CLI) | payer MEDICARE, SELFPAY ==
[2023-09-01 18:28] LABS: HPV Reflexed? NOT INDICATED
== END | disposition home or self-care (01) ==
LOC: LABSPEC 16:38
PROVIDERS: PCP Nurse Practitioner; Referring Provider Nurse Practitioner Women's Health; Visit Provider Nurse Practitioner Women's Health
DX: D06.9 Carcinoma in situ of cervix, unspecified (principal); Z91.89 Other specified personal risk factors, not elsewhere classified
CPT/HCPCS: 88175; G0145

== ENCOUNTER → 2024-09-02 | Outpatient (CLI) | payer MEDICARE, SELFPAY ==
--- NOTE | 2024-09-02 12:05 | RAD_ITS ---
STUDY: X-RAY CHEST REASON FOR EXAM: Female, 68 years old. shortness of breath TECHNIQUE: PA and lateral views of the chest. COMPARISON: 06/28/2019 FINDINGS: Status post left axillary lymph node dissection. The lungs are clear and expanded. There is no demonstrated pleural abnormality. Normal size heart. Normal mediastinum and nancy. Normal visualized pulmonary arteries. Normal visualized aortic arch and descending thoracic aorta. Normal visualized thoracic spine. Normal visualized ribs, clavicles, and shoulders. There is no demonstrated abnormality of the visualized soft tissue structures of the upper abdomen. RAD/Chest PA and Lateral IMPRESSION: No active disease. Electronically Signed: Matty Cortez MD at 9:43 EST ,
[2024-09-09 13:06] LABS: HPV APTIMA, High Risk Negative (Negative)
== END | disposition home or self-care (01) ==
PROVIDERS: PCP Nurse Practitioner; Referring Provider Obstetrics & Gynecology; Visit Provider Obstetrics & Gynecology
DX: J20.2 Acute bronchitis due to streptococcus (principal); Z12.4 Encounter for screening for malignant neoplasm of cervix
CPT/HCPCS: 71046; 87624; 88175; G0145

== ENCOUNTER → 2024-09-05 | Outpatient (CLI) | payer MEDICARE, SELFPAY ==
--- NOTE | 2024-09-05 08:41 | BI_ITS ---
MAMMOGRAPHY - BILATERAL DIAGNOSTIC REASON FOR EXAM: Female, 68 years old. Breast Lump PERTINENT HISTORY: Non-contributory. TECHNIQUE: Digital examination. Mediolateral oblique (MLO) and craniocaudad (CC) views of both breasts were obtained. CAD: CAD was performed on this study. COMPARISON: 08/10/2023 FINDINGS: Breast Composition: There are scattered areas of fibroglandular density. No dominant mass. No suspicious desiccation with right breast. Interval marked increase in the number of dystrophic calcifications in the upper outer quadrant left breast at site of lumpectomy corresponding to the patient''s palpable abnormality. No other significant abnormalities are identified. BI/DIAG MAMM W/CAD, BILAT IMPRESSION: Marked interval increase in the dystrophic calcifications in the upper outer quadrant left breast at site of lumpectomy responding to the palpable abnormality. ASSESSMENT CATEGORY: BIRADS Category 2: Benign. A letter regarding these results will be sent to the patient by the facility within 30 days. FOLLOW UP RECOMMENDATION: Yearly follow up mammogram recommended. (A) Approximately 10% of breast cancers are not detected by mammography. A normal mammogram should not delay biopsy of a clinically suspicious abnormality. Electronically Signed: Matty Cortez MD at 9:57 EST ,
== END | disposition home or self-care (01) ==
LOC: OPBI 08:41
PROVIDERS: PCP Nurse Practitioner; Referring Provider Obstetrics & Gynecology; Visit Provider Obstetrics & Gynecology
DX: N63.20 Unspecified lump in the left breast, unspecified quadrant (principal); R92.1 Mammographic calcification found on diagnostic imaging of breast
CPT/HCPCS: 77062; 77066; G0279

== ENCOUNTER 2024-09-26 14:37 | Emergency (ER) | payer MEDICARE, SELFPAY ==
[2024-09-26 14:37] VITALS: BP 151/81; PULSE 80; RESP 18; TEMP 36.3; O2SAT 98; BMI 51.7
[2024-09-26 16:37] VITALS: BP 158/80; PULSE 89; RESP 18; O2SAT 98
--- NOTE | 2024-09-26 16:39 | CT_ITS ---
EXAM: CT ABDOMEN AND PELVIS WITHOUT INTRAVENOUS CONTRAST CLINICAL INDICATION: right flank pain TECHNIQUE: Helically acquired images were obtained of the abdomen and pelvis without intravenous contrast. This CT exam was performed using one or more of the following dose reduction techniques: automated exposure control, adjustment of the mA and/or kV according to patient size, and/or use of iterative reconstruction technique. COMPARISON: 08/27/2022 FINDINGS: LOWER THORAX: Unremarkable. Lung bases are clear. No cardiomegaly. No significant pericardial effusion. ABDOMEN: LIVER: Unremarkable. Homogeneous. GALLBLADDER AND BILE DUCTS: The gallbladder is nonvisualized and may be surgically absent. No intra- or extrahepatic biliary ductal dilation. PANCREAS: Unremarkable. No focal cystic mass. SPLEEN: Unremarkable. Normal size without focal cystic or solid mass. ADRENALS: Unremarkable. No nodules. KIDNEYS AND URETERS: Unremarkable. Normal renal size and position. No hydronephrosis. STOMACH AND BOWEL: There is sigmoid diverticulosis with no evidence of diverticulitis. No stomach or bowel distention. PELVIS: APPENDIX: No evidence of acute appendicitis. BLADDER: Unremarkable. REPRODUCTIVE: Unremarkable as visualized. No mass. ABDOMEN and PELVIS: INTRAPERITONEAL SPACE: Unremarkable. No ascites or other fluid collection. No free air. BONES/JOINTS: Unremarkable. No suspicious lytic or blastic abnormality. SOFT TISSUES: Unremarkable. No discrete abdominal or pelvic wall hernia. VASCULATURE: There is an inferior vena cava filter in place. This is unchanged from the reference exam. Abdominal aorta is non-dilated. LYMPH NODES: Unremarkable. No enlarged lymph nodes. CT/Abdomen/Pelvis without Cont IMPRESSION: No acute findings in the abdomen or pelvis. Electronically Signed: Dhiraj Watts MD at 17:28 EST ,
--- NOTE | 2024-09-26 16:42 | ED.VIS.BACK ---
HPI History of Present Illness Chief Complaint: Back Informant: patient Narrative Narrative: 68-year-old female presenting with 1 week of right flank pain. Patient states that she woke from sleep 1 day feeling like maybe she twisted a muscle but it is waxed and waned for the past week. She notes that she it wraps lower into the anterior right pelvis. She notes diarrhea for several days. No fever no vomiting. She denies any rashes. She notes that is particularly worse when she is standing doing dishes and goes to move. She notes a history of a cholecystectomy. She has had prior kidney stones as well as diverticulitis. She does take apixaban. She denies any recent trauma or falls. She denies any change in urination such as the color or smell or frequency. She denies any radicular symptoms. 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 Lichen sclerosus Lichen sclerosus Chronic sinusitis Yeast infection Hepatic fibrosis, stage 3 History of cardioversion Paroxysmal atrial fibrillation Pure hypercholesterolemia [place] filter in place Rectal cancer PVD (peripheral vascular disease) Varicosities of leg Pneumonia Diverticulitis Chronic UTI (urinary tract infection) Lipoma Diarrhea Soft tissue mass Peptic ulcer disease Other chest pain UTI (urinary tract infection) Bronchitis Hypersomnia Diastolic dysfunction Malaise Body mass index (BMI) 35 or more Obesity Sleep apnea Unstable angina Hypothyroidism History of recurrent deep vein thrombosis (DVT) History of cervical cancer History of colon cancer History of breast cancer Rheumatoid arthritis Home Medications ?Medication ?Instructions ?Recorded ?Last Taken ?Type tramadol 50 mg tablet 50 mg PO Q6H PRN Pain 08/23/18 Unknown History celecoxib 200 mg capsule 200 mg PO 1200 08/05/19 Unknown History blood-glucose meter (FreeStyle #1 ea 01/06/20 Unknown Rx [place] Lite kit) lancing device with lancets kit #1 ea 08/13/20 Unknown Rx (Scarecrow Visual EffectsTouch Delica Plus Lancing Device kit) compress.stocking,knee,reg,lrg #2 ea 08/31/20 Unknown Rx golimumab 12.5 mg/mL intravenous See Rx Instructions .Route .COMPLEX 08/24/21 Unknown History solution (Simponi ARIA) FreeStyle Lite Strips (blood sugar #300 ea 12/08/21 Unknown Rx diagnostic) lancets 28 gauge (FreeStyle #120 ea 12/08/21 Unknown Rx Lancets) diphenoxylate-atropine 2.5 1 tab PO TID PRN diarrhea #30 tabs 09/26/22 Unknown Rx mg-0.025 mg tablet (Lomotil) albuterol sulfate 90 mcg/actuation 2 puff inhalation Q4H PRN 02/01/23 Unknown Rx aerosol inhaler (ProAir HFA) shortness of breath or wheezing #8.5 grams cholecalciferol (vitamin D3) 1,250 1,250 mcg PO QWEEK 08/28/23 Unknown History mcg (50,000 unit) capsule clobetasol 0.05 % topical ointment 1 applic topical QHS PRN lichen 08/28/23 Unknown Rx sclerosis #30 grams fluticasone propionate 50 2 spray intranasal DAILY #18.2 mL 08/28/23 Unknown Rx mcg/actuation nasal spray,suspension (Allergy Relief (fluticasone)) glipizide 5 mg tablet 2.5 mg PO BID 01/05/24 Unknown History levothyroxine 200 mcg tablet 200 mcg PO DAILY 01/05/24 Unknown History (Synthroid) nystatin 100,000 unit/gram topical 1 applic topical BID PRN 01/05/24 Unknown History powder (Nystop) sucralfate 1 gram tablet (Carafate) 1 g PO QDAY PRN 01/05/24 Unknown History apixaban 5 mg tablet (Eliquis) 5 mg PO BID #180 tabs 04/22/24 Unknown Rx flecainide 100 mg tablet 100 mg PO Q12H #180 tabs 04/22/24 Unknown Rx furosemide 20 mg tablet 40 mg (2 x 20 mg) PO Q OTHER DAY 04/22/24 Unknown Rx PRN edema #45 tabs losartan 25 mg tablet 25 mg PO DAILY #90 tabs 04/22/24 Unknown Rx metoprolol tartrate 25 mg tablet 12.5 mg (1/2 x 25 mg) PO DAILY #45 04/22/24 Unknown Rx tabs potassium chloride 10 mEq 10 meq PO DAILY #90 caps 04/22/24 Unknown Rx capsule,extended release loratadine 10 mg tablet (Claritin) 10 mg PO QDAY #90 tabs 06/10/24 Unknown Rx omeprazole 40 mg capsule,delayed 40 mg PO DAILY #90 caps 07/11/24 Unknown Rx release Allergy/AdvReac Type Severity Reaction Status Date / Time infliximab (From Remicade) Allergy Severe Anaphylaxis Verified 09/26/24 14:40 oxymetazoline (From Afrin Allergy Severe CHEST PAIN Verified 09/26/24 14:40 (oxymetazoline)) Penicillins Allergy Hives Verified 09/26/24 14:40 adhesive tape AdvReac Severe / Verified 09/26/24 14:40 clarithromycin AdvReac Severe crmps and Verified 09/26/24 14:40 diarrhea dulaglutide (From Trulicity) AdvReac Severe Abd Verified 09/26/24 14:40 cramps/diarrhea latex AdvReac Severe / Verified 09/26/24 14:40 spironolactone (From AdvReac Severe headaches Verified 09/26/24 14:40 Aldactone) Family History Mother Rheumatoid arthritis Brother Rheumatoid arthritis CAD (coronary artery disease) Heart disease Father CAD (coronary artery disease) Kidney disease Heart disease Grandmother Breast cancer Surgical History History of cholecystectomy Lipoma S/P left knee arthroscopy History of liver biopsy History of mastectomy, subtotal History of lumpectomy of left breast H/O thyroidectomy History of left heart catheterization (LHC) Social History Smoking Status: Former smoker how long ago did patient quit smokin years ago second hand exposure: Yes alcohol intake: current alcohol intake frequency: holidays/special occasions only details: social substance use type: does not use caffeine: Yes Type: coffee Number of servings: 1 what type of physical activity do you participate in: none seatbelt use: always do you feel safe at home: Yes additional social history: Drive Patient is retired ROS ROS ED Constitutional Constitutional ED: Denies chills or weight loss Eyes Eyes: Denies change in vision or diplopia ENT ENT ED: Denies ear pain, rhinorrhea or sore throat Cardiovascular Cardiovascular: Denies chest pain, orthopnea, palpitations or racing heartbeat Respiratory/Chest Respiratory/Chest: Denies cough, dyspnea or orthopnea Gastrointestinal Gastrointestinal: Reports abdominal pain, diarrhea and other Details: Right flank pain ; Denies nausea or vomiting Genitourinary Genitourinary ED: Denies dysuria, hematuria or urinary frequency Musculoskeletal Musculoskeletal: Denies arthralgias or myalgias Integumentary Denies abscess or rash Neurologic Neurologic: Denies headache(s) or weakness Psychiatric Psychiatric: Denies anxiety, depression, suicidal ideation or suicidal thoughts Endocrine Endocrinology: Denies polydipsia, polyphagia or polyuria Allergic/Immunologic Allergic/Immunologic ED: Denies mouth swelling, tongue swelling or urticaria EXAM Physical Exam Const Vital Signs: 09/26/24 14:37 09/26/24 16:37 09/26/24 18:02 Temperature 97.3 F L 98.0 F Temperature Source Temporal Oral Pulse Rate 80 89 87 Respiratory Rate 18 18 18 Blood Pressure 151/81 H 158/80 H 125/71 H Blood Pressure Mean 104 106 89 Pulse Ox 98 98 98 Oxygen Delivery Method Room Air Positive well nourished, well developed and obese General Appearance ED: well developed and NAD Nutritional Appearance: obese HEENT Reports normocephalic, head/scalp atraumatic and moist mucous membranes Eyes PERRL and EOMs intact bilaterally Neck no lymphadenopathy, supple and no JVD Resp normal respiratory effort and clear to auscultation bilaterally Cardio regular rate, regular rhythm and no murmurs GI normal to inspection, nondistended, normoactive bowel sounds and non-tender GI Narrative: Body habitus precludes confident deep palpation of the abdomen. Palpation: soft Back/Spine no CVA tenderness Back/Spine Narrative: Painful range of motion when I asked her to sit up. She notes tenderness to palpation over the paraspinal musculature of the upper lumbar region and in the CVA area. Extremity normal to inspection General Extremety ED: Negative for edema General Extremity: Negative for edema Neuro oriented x3 and CN's II-XII intact bilaterally Sensorium / Orientation: alert Motor Exam: strength 5/5 throughout Psych mental status grossly normal Mood & Affect: Negative for depressed or tearful Skin no rashes or lesions noted and no wounds MDM MDM MDM Narrative Medical decision making narrative: Differential diagnosis includes but not limited to kidney stone colitis muscular skeletal back pain shingles viral enteritis dehydration UTI/pyelonephritis psoas muscle hematoma Patient's white count 9.3 hemoglobin 14.2. Normal creatinine normal electrolytes slight elevation of her transaminases which is chronic for the patient. Urinalysis with no overt infection 5-10 white cells 1+ bacteria negative nitrates. CT of the abdomen pelvis without contrast was obtained. This is negative for obvious inflammatory changes of the colon. There is a normal appearing psoas muscle compared to the left. No obvious kidney stone. Patient has Ultram at home which she has been taking and has been helpful for the pain. Clinically I do wonder if this is more of a musculoskeletal pain. Patient to follow-up if not improving return if worsening or concerns History & Record Review Discussion w/independent historian: Patient Additional record(s) reviewed:: Prior labs Lab Data Attestation: I reviewed the patient's lab results. Labs: Laboratory Results - last 24 hr 09/26/24 09/26/24 16:56 17:50 WBC 9.3 RBC 4.88 Hgb 14.2 Hct 43.7 MCV 89.5 MCH 29.1 MCHC 32.5 RDW Std Deviation 44.3 H RDW Coeff of Debi 13.6 Plt Count 204 MPV 10.7 Immature Gran % (Auto) 0.300 Neut % (Auto) 47.8 Lymph % (Auto) 42.1 H [place] % (Auto) 7.8 Eos % (Auto) 1.5 Baso % (Auto) 0.5 Absolute Neuts (auto) 4.4 Absolute Lymphs (auto) 3.90 Nucleated RBC % 0 Sodium 137 Potassium 4.1 Chloride 106 Carbon Dioxide 24.0 Anion Gap 7 BUN 15 Creatinine 0.81 Estim Creat Clear Calc 88.59 Est GFR (MDRD) Af Amer 91 Est GFR (MDRD) Non-Af 75 BUN/Creatinine Ratio 18.6 Glucose 150 H Calcium 9.9 Total Bilirubin 0.40 AST 81 H ALT 124 H Alkaline Phosphatase 117 Total Protein 7.5 Albumin 3.4 Globulin 4.1 Albumin/Globulin Ratio 0.8 L Urine Color Yellow Urine Clarity Clear Urine pH 6.0 Ur Specific [place] 1.020 Urine Protein 15 H Urine Glucose (UA) Normal Urine Ketones Negative Urine Occult Blood Negative Urine Nitrite Negative Urine Bilirubin Negative Urine Urobilinogen Normal Ur Leukocyte Esterase 25 H Urine RBC 0-5 SEEN Urine WBC 5-10 SEEN Ur Squamous Epith Cells 0-5 SEEN Urine Bacteria 1+ Hyaline Casts 0-5 SEEN Urine Mucus 1+ Radiography Diagnostic Testing: Clinical Impression(s) from Imaging Studies Abdomen/Pelvis CT 09/26/24 16:39 IMPRESSION: No acute findings in the abdomen or pelvis. Electronically Signed: Dhiraj Watts MD at 17:28 EST Reading Location ID and State: [facility] / [place] Tel , Service support , Discharge Plan Triage Chief Complaint: Back ED Provider: Santiago Givens Dx/Rx/DC Orders Clinical Impression: Acute flank pain, Obesity, Anticoagulated, Diarrhea Instructions: ED Flank Pain, Uncertain Cause Prescriptions: No Action tramadol 50 mg tablet 50 mg PO Q6H PRN (Reason: Pain) (DME) blood-glucose meter [FreeStyle [place] Lite] Kit See Rx Instructions .ROUTE .MEDSUPPLY Qty: 1 0RF Rx Instructions: As directed (DME) lancing device with lancets [Migo.meuch Delica Plus Lanc Dev] Kit See Rx Instructions .ROUTE .MEDSUPPLY Qty: 1 0RF Rx Instructions: As directed (DME) compress.stocking,knee,reg,lrg Misc See Rx Instructions .MEDSUPPLY Qty: 2 1RF Rx Instructions: wear daily for venous insufficiency 20-30 mmHg Simponi ARIA 12.5 mg/mL solution See Rx Instructions .ROUTE .COMPLEX Rx Instructions: 2 mg/kg IV every 8 weeks; levothyroxine [Synthroid] 200 mcg tablet 200 mcg PO DAILY nystatin [Nystop] 100,000 unit/gram powder 1 applic topical BID PRN sucralfate [Carafate] 1 gram tablet 1 g PO QDAY PRN cholecalciferol (vitamin D3) 1,250 mcg (50,000 unit) capsule 1,250 mcg PO QWEEK clobetasol 0.05 % ointment 1 applic topical QHS PRN (Reason: lichen sclerosis) Qty: 30 1RF Rx Instructions: apply thin layer; massage gently into affected area Eliquis 5 mg tablet 5 mg PO BID Qty: 180 3RF flecainide 100 mg tablet 100 mg PO Q12H Qty: 180 3RF losartan 25 mg tablet 25 mg PO DAILY Qty: 90 3RF metoprolol tartrate 25 mg tablet 12.5 mg PO DAILY Qty: 45 3RF potassium chloride 10 mEq capsule, extended release 10 meq PO DAILY Qty: 90 3RF furosemide 20 mg tablet 40 mg PO Q OTHER DAY PRN (Reason: edema) Qty: 45 3RF loratadine [Claritin] 10 mg tablet 10 mg PO QDAY Qty: 90 3RF celecoxib 200 mg capsule 200 mg PO 1200 (DME) lancets [FreeStyle Lancets] 28 gauge misc See Rx Instructions .ROUTE .MEDSUPPLY Qty: 120 6RF Rx Instructions: 4x/day (DME) FreeStyle Lite Strips Strip See Rx Instructions .ROUTE .MEDSUPPLY Qty: 300 3RF Rx Instructions: 3 times daily diphenoxylate-atropine [Lomotil] 2.5-0.025 mg tablet 1 tab PO TID PRN (Reason: diarrhea) Qty: 30 0RF albuterol sulfate [ProAir HFA] 90 mcg/actuation HFA aerosol inhaler 2 puff INHALATION Q4H PRN (Reason: shortness of breath or wheezing) Qty: 8.5 4RF fluticasone propionate [Allergy Relief (fluticasone)] 50 mcg/actuation spray,suspension 2 spray INTRANASAL DAILY Qty: 18.2 12RF Rx Instructions: administer into each nostril glipizide 5 mg tablet 2.5 mg PO BID omeprazole 40 mg capsule,delayed release(DR/EC) 40 mg PO DAILY Qty: 90 3RF Primary Care Provider: Leonora Davalos NP Referrals: Leonora Davalos NP, ENVIRONMENTAL PROJECTS ADVISOR-C [Primary Care Provider] - 1 Week if not improving Print Language: French Disposition Disposition: Home, Self Care
[2024-09-26 17:03] LABS: Absolute Neutrophil Count 4.4 X10^3/uL (2.0-7.7); Basophil# 0.05 X10^3/uL; Basophil% 0.5 % (0-1); Eosinophil# 0.14 X10^3/uL; Eosinophils% 1.5 % (0-5); Hematocrit 43.7 % (37-47); Hemoglobin 14.2 g/dL (12.0-15.0); Lymphocyte % 42.1 % (19-41); Mean Corp Hgb Conc 32.5 g/dL (32-36); Mean Corpuscular Hgb 29.1 pg (27.0-32.0); Mean Corpuscular Volume 89.5 fL (81-99); Mean Platelet Vol. 10.7 fl (6.2-12.0); Monocyte# 0.72 X10^3/uL; Monocyte% 7.8 % (0-10); NRBC Flagged by Analyzer 0 % (0-5); Neutrophil # 4.42 X10^3/uL (2.7-7.7); Neutrophil % 47.8 % (47-70); Platelet Count 204 K/mm3 (150-450); RBC Distribution Width CV 13.6 % (11.6-14.6); RBC Distribution Width SD 44.3 fl (35.1-43.9); Red Blood Count 4.88 M/mm3 (4.2-5.4); White Blood Count 9.3 K/mm3 (4.4-11.0)
[2024-09-26 17:18] LABS: ALB/GLOB Ratio 0.8 RATIO (0.9-2.4); AST(SGOT) 81 U/L (15-37); Alanine Aminotransfer ALT/SGPT 124 U/L (13-56); Albumin, Serum 3.4 g/dL (3.2-5.0); Alkaline Phosphatase 117 U/L (45-117); Anion Gap 7 (5-15); BUN 15 mg/dL (7-18); BUN/Creat Ratio 18.6 RATIO (10-20); Calcium,Total 9.9 mg/dL (8.5-10.1); Chloride 106 mmol/L (98-107); Creatinine, Serum 0.81 mg/dL (0.55-1.02); EST Glomerular Filtration Rate 75 mL/min (>60); Est Glom Filt Rate - Afr Amer 91 mL/min (>60); Estimated Creatinine Clearance 88.59 ml/min; Globulin 4.1 g/dL (2.2-4.2); Glucose 150 mg/dL (74-106); Potassium 4.1 mmol/L (3.5-5.1); Protein, Total 7.5 g/dL (6.4-8.2); Sodium Level 137 mmol/L (136-145)
[2024-09-26 18:02] VITALS: BP 125/71; PULSE 87; RESP 18; TEMP 36.7; O2SAT 98
[2024-09-26 18:09] LABS: Color, Urine Yellow (Yellow); Glucose, Dipstick Normal (Normal); Ketone-Dipstick Negative (Negative); Leukocyte Esterase-Dipstick 25 /ul (Negative); Nitrite-Dipstick Negative (Negative); Occult Blood-Urine Negative /ul (Negative); Protein-Dipstick 15 mg/dl (Negative); Urine Bilirubin Dipstick Negative (Negative); Urine Clarity Clear (Clear); Urine Urobilinogen Normal (Normal)
[2024-09-26 18:54] LABS: Bacteria 1+ /hpf (None Seen); Mucous, Urine 1+ /hpf (<or=2+); Squamous Epithelial Cells - UA 0-5 SEEN /hpf (5-10)
[2024-09-26 18:55] LABS: Red Blood Cells-Urine 0-5 SEEN /hpf (0-5); White Blood Cells 5-10 SEEN /hpf (0-5)
[2024-09-26 18:56] LABS: Hyaline Cast 0-5 SEEN /lpf (0-5)
[2024-09-26 19:21] VITALS: BP 152/71; PULSE 78; RESP 16; TEMP 36.9; O2SAT 99
== END 2024-09-26 19:22 | disposition home or self-care (01) ==
PROVIDERS: Emergency Provider Emergency Medicine; PCP Nurse Practitioner; Visit Provider Emergency Medicine
DX: R10.9 Unspecified abdominal pain (principal); E11.9 Type 2 diabetes mellitus without complications; E66.9 Obesity, unspecified; R19.7 Diarrhea, unspecified; I25.10 Atherosclerotic heart disease of native coronary artery without angina pectoris; Z87.891 Personal history of nicotine dependence; Z86.718 Personal history of other venous thrombosis and embolism
CPT/HCPCS: 74176; 80053; 81001; 85025; 87086; 87088; 99283; A4216

== ENCOUNTER → 2024-11-13 | Outpatient (CLI) | payer MEDICARE, SELFPAY ==
[2024-11-13 13:08] LABS: Absolute Lymphocyte Count 2.59 X10^3/uL (0.83-4.51); Absolute Neutrophil Count 4.9 X10^3/uL (2.0-7.7); Basophil# 0.03 X10^3/uL; Basophil% 0.4 % (0-1); Eosinophil# 0.11 X10^3/uL; Eosinophils% 1.3 % (0-5); Hematocrit 42.6 % (37-47); Hemoglobin 13.7 g/dL (12.0-15.0); Lymphocyte # 2.59 X10^3/ul (0.83-4.51); Lymphocyte % 31.6 % (19-41); Mean Corp Hgb Conc 32.2 g/dL (32-36); Mean Corpuscular Hgb 29.2 pg (27.0-32.0); Mean Corpuscular Volume 90.8 fL (81-99); Mean Platelet Vol. 11.2 fl (6.2-12.0); Monocyte# 0.55 X10^3/uL; Monocyte% 6.7 % (0-10); NRBC Flagged by Analyzer 0 % (0-5); Neutrophil # 4.88 X10^3/uL (2.7-7.7); Neutrophil % 59.6 % (47-70); Platelet Count 220 K/mm3 (150-450); RBC Distribution Width CV 13.8 % (11.6-14.6); RBC Distribution Width SD 45.7 fl (35.1-43.9); Red Blood Count 4.69 M/mm3 (4.2-5.4); White Blood Count 8.2 K/mm3 (4.4-11.0)
[2024-11-13 13:49] LABS: Magnesium 2.1 mg/dL (1.5-2.2); Pro- Brain NATRIURETIC PEPTIDE 86 pg/mL (<=900)
[2024-11-13 13:58] LABS: ALB/GLOB Ratio 1.1 RATIO (0.9-2.4); AST(SGOT) 66 U/L (<=31); Alanine Aminotransfer ALT/SGPT 78 U/L (<=34); Albumin, Serum 3.9 g/dL (3.4-4.8); Alkaline Phosphatase 114 U/L (35-104); Anion Gap 12 (5-15); BUN 11 mg/dL (4-19); BUN/Creat Ratio 14.9 RATIO (10-20); Carbon Dioxide 23.4 mmol/L (21.0-32.0); Chloride 104 mmol/L (98-108); Creatinine, Serum 0.77 mg/dL (0.70-1.20); EST Glomerular Filtration Rate 84 (>60); Globulin 3.6 g/dL (2.2-4.2); Glucose 186 mg/dL (70-99); Potassium 4.3 mmol/L (3.3-5.1); Protein, Total 7.5 g/dL (5.9-8.4); Sodium Level 139 mmol/L (133-145); Total Bilirubin 0.35 mg/dL (0.00-1.30)
== END | disposition home or self-care (01) ==
LOC: LAB 12:08
PROVIDERS: PCP Nurse Practitioner; Referring Provider Nurse Practitioner Family; Visit Provider Nurse Practitioner Family
DX: I50.32 Chronic diastolic (congestive) heart failure (principal); I48.0 Paroxysmal atrial fibrillation; R06.09 Other forms of dyspnea; E78.00 Pure hypercholesterolemia, unspecified
CPT/HCPCS: 36415; 80053; 83735; 83880; 84443; 85025

== ENCOUNTER → 2024-12-03 | Outpatient (CLI) | payer MEDICARE, SELFPAY ==
--- NOTE | 2024-12-03 07:29 | CPS ---
Pt attempted DLCO x 3 but was unable to perform proper technique and no results were obtained for any trial.
== END | disposition home or self-care (01) ==
LOC: PSN 06:52
PROVIDERS: PCP Nurse Practitioner; Referring Provider Nurse Practitioner Acute Care; Visit Provider Nurse Practitioner Acute Care
DX: R06.09 Other forms of dyspnea (principal)
CPT/HCPCS: 94060; 94726; 94729

== ENCOUNTER → 2024-12-07 | Outpatient (CLI) | payer MEDICARE, SELFPAY ==
--- NOTE | 2024-12-07 11:10 | RAD_ITS ---
PROCEDURE: CHEST PA AND LATERAL 12/07/2024 REASON FOR EXAM: COUGH AND CONGESTION TECHNIQUE: Frontal and lateral views of the chest. COMPARISON: Chest radiograph 09/02/2024 FINDINGS: Hardware: None Heart: Normal size Mediastinum: Normal contours Lungs: Clear. No effusions. No pneumothorax. Bones: Unremarkable RAD/Chest PA and Lateral IMPRESSION: No radiographic evidence of an acute cardiopulmonary process Reading [facility]
== END | disposition home or self-care (01) ==
LOC: RAD 11:08
PROVIDERS: PCP Nurse Practitioner; Referring Provider Physician Assistant Medical; Visit Provider Physician Assistant Medical
DX: I50.32 Chronic diastolic (congestive) heart failure (principal); J20.2 Acute bronchitis due to streptococcus; R06.09 Other forms of dyspnea; R05.9 Cough, unspecified
CPT/HCPCS: 71046

== ENCOUNTER → 2024-12-17 | Outpatient (CLI) | payer MEDICARE, SELFPAY ==
--- NOTE | 2024-12-17 06:39 | ECHOD_ITS ---
Reason For Study Reason For Study: Dyspnea/SOB Procedure This was a 2D Doppler, Color Flow transthoracic echocardiogram. Myocardial strain analysis was performed in this exam to aid in the assessment of cardiac function. Exam performed in department. Left Ventricle Normal LV size. The left ventricular ejection fraction is 55 %. Stage 1 diastolic dysfunction. No regional wall motion abnormalities noted. Right Ventricle Normal RV size. Normal systolic function. Atria Normal left atrium. Normal right atrium. Mitral Valve Normal mitral valve. Tricuspid Valve Normal tricuspid valve. Mild tricuspid valve insufficiency. Pulmonary artery systolic pressure is 20 mmHg. Aortic Valve Trisinus/trileaflet aortic valve. Pulmonic Valve Normal pulmonic valve. Great Vessels Normal aortic root. The pulmonary artery is normal size. Normal inferior vena cava. Pericardium/Pleural No pericardial effusion. MMode/2D Measurements & Calculations LVIDd: 4.2 cm IVSd: 1.2 cm Ao root diam: 3.2 cm LVIDs: 2.7 cm LVPWd: 1.1 cm RVDd: 3.8 cm FS: 36.4 % LAV(MOD-bp): 38.0 ml LVAd ap4: 25.4 cm2 SV(MOD-sp4): 40.5 ml LAV(MOD-bp) Indexed: 16.9 ml/m2 LVLd ap4: 7.1 cm SI(MOD-sp4): 18.0 ml/m2 LAV(MOD-sp2): 36.0 ml EDV(MOD-sp4): 75.7 ml LAV(MOD-sp4): 36.7 ml EDV(sp4-el): 76.9 ml LVAs ap4: 16.0 cm2 LVLs ap4: 6.1 cm ESV(MOD-sp4): 35.2 ml ESV(sp4-el): 35.5 ml EF(MOD-sp4): 53.5 % EF(sp4-el): 53.8 % SV(sp4-el): 41.4 ml LA A4 area: 16.4 cm2 LA dimension(2D): 4.1 cm RA A4 area: 13.3 cm2 TAPSE: 2.0 cm Time Measurements MV dec time: 0.28 sec Doppler Measurements & Calculations MV E max brandin: 51.0 cm/sec Lat Peak E' Brandin: 10.5 cm/sec Med Peak E' Brandin: 5.7 cm/sec MV A max brandin: 69.1 cm/sec E/E' lat: 4.8 E/E' med: 8.9 MV E/A: 0.74 Ao V2 max: 95.0 cm/sec LV V1 max: 80.9 cm/sec MV dec slope: 183.8 cm/sec2 Ao max P.6 mmHg LV V1 max P.6 mmHg Ao V2 mean: 71.2 cm/sec LV V1 mean P.4 mmHg Ao mean P.2 mmHg LV V1 mean: 53.9 cm/sec Ao V2 VTI: 18.9 cm LV V1 VTI: 17.9 cm AV (velocity ratio): 0.95 PA V2 max: 72.7 cm/sec TR max brandin: 203.9 cm/sec TR max P.6 mmHg ECHO/Echo Complete Interpretation Summary Normal LV size. The left ventricular ejection fraction is 55 %. Stage 1 diastolic dysfunction. The global longitudinal strain is mildly abnormal. Structurally normal valves. Ordering Physician: Mehrdad Ruth Referring Physician: Leonora Davalos Performed By: Manju Ruth, ABBY, RVT
--- NOTE | 2024-12-17 17:03 | STRESSREP ---
Stress Test Report Pharmacologic myocardial perfusion stress test. 69-year-old lady with a history of shortness of breath Resting EKG demonstrates sinus rhythm with a right bundle branch block with a rate of 83 bpm. Resting blood pressure is 168/110 mmHg. 0.4 mg of regadenoson was infused per usual protocol followed by rapid intravenous saline flush injection. Continuous EKG monitoring was performed. The maximum heart rate was 125 bpm which was 82% of max impacted heart rate the maximum workload was 1 metabolic equivalent. At rest there were no ST or T wave changes noted to suggest ischemia and at peak infusion nonspecific ST changes were noted which did not meet the criteria for ischemia. The patient did experience chest pressure during the infusion. The final blood pressure was 158/88 mmHg. Myocardial perfusion protocol. 14.9 mCi of technetium 99m sestamibi was injected at rest. 0.4 mg of regadenoson was infused per usual protocol. At peak infusion 44.7 mCi of technetium 99m sestamibi was injected stress images were obtained stress and rest images were reconstructed and compared in the short axis vertical long and horizontal long axis. Gated images were also obtained. Perfusion SPECT analysis: Review of the stress images demonstrate normal uptake of tracer noted in all areas of the myocardium. The resting images similar demonstrated normal uptake of tracer noted in all areas of the myocardium. No areas of reversibility are noted to suggest ischemia and no previous infarct is noted. Gated SPECT analysis: The gated ejection fraction is 63%. Conclusion: Normal pharmacologic myocardial perfusion stress test. Preserved ejection fraction.
== END | disposition home or self-care (01) ==
LOC: CVS 06:38
PROVIDERS: PCP Nurse Practitioner; Referring Provider Nurse Practitioner Family; Visit Provider Nurse Practitioner Family
DX: R06.09 Other forms of dyspnea (principal); I50.32 Chronic diastolic (congestive) heart failure; I48.0 Paroxysmal atrial fibrillation; E78.00 Pure hypercholesterolemia, unspecified
CPT/HCPCS: 78452; 93017; 93306; A9500; Q9957; A4216; J2785

== ENCOUNTER → 2025-01-07 | Outpatient (CLI) | payer MEDICARE, SELFPAY ==
[2025-01-07 08:15] VITALS: PULSE 103; PULSE 125; PULSE 133; PULSE 134; PULSE 135; PULSE 136; PULSE 138; O2SAT 93; O2SAT 94; O2SAT 95; O2SAT 96
--- NOTE | 2025-01-07 08:22 | CPS ---
Pt stated prior to start of walk that her RA was bad today. Pt did take multiple stops during walk that would last approximatively 10-15 seconds. Pt did state her breaks were do to pain and S.O.B.
--- NOTE | 2025-01-10 09:16 | WT_ITS ---
PSN 6 Minute Walk Test 6 Minute Walk Test 6 Minute Walk Test: 6 Minute Walk Test PSN:6-Minute Walk Test Start: 01/07/25 08:17 Freq: Status: Active Protocol: [id number] Document 01/07/25 08:15 AEH (Rec: 01/07/25 08:26 AEH [id number]) 6 Minute Walk Test Date Performed 01/07/25 Time Performed 08:15 Height 5 ft 3 in Weight: 284 lb Weight in Pounds 284.[address]: Brandt Assistive device None used: Pre-test Oxygen Delivery Room Air Method Pulse Ox (%) 96 Pulse Rate (60-100 103 H beats/min) Dyspnea Erma Scale ( 0 0-10) Exertion Erma Scale 6 (6-20) 1st minute Oxygen Delivery Room Air Method Pulse Ox (%) 93 Pulse Rate (60-100 125 H beats/min) 2nd minute Oxygen Delivery Room Air Method Pulse Ox (%) 95 Pulse Rate (60-100 135 H beats/min) Dyspnea Erma Scale ( 2 0-10) Exertion Erma Scale 13 (6-20) Number of Rests 1 Taken Reported Symptoms Increased Work of Breathing 3rd minute Oxygen Delivery Room Air Method Pulse Ox (%) 95 Pulse Rate (60-100 136 H beats/min) Dyspnea Erma Scale ( 2 0-10) Exertion Erma Scale 13 (6-20) Number of Rests 1 Taken Reported Symptoms Increased Work of Breathing 4th minute Oxygen Delivery Room Air Method Pulse Ox (%) 94 Pulse Rate (60-100 134 H beats/min) Dyspnea Erma Scale ( 2 0-10) Exertion Erma Scale 13 (6-20) Number of Rests 1 Taken Reported Symptoms Increased Work of Breathing 5th minute Oxygen Delivery Room Air Method Pulse Ox (%) 95 Pulse Rate (60-100 138 H beats/min) Dyspnea Erma Scale ( 2 0-10) Exertion Erma Scale 13 (6-20) Number of Rests 1 Taken Reported Symptoms Increased Work of Breathing 6th minute Oxygen Delivery Room Air Method Pulse Ox (%) 94 Pulse Rate (60-100 133 H beats/min) Dyspnea Erma Scale ( 3 0-10) Exertion Erma Scale 13 (6-20) Reported Symptoms Increased Work of Breathing Post-test Oxygen Delivery Room Air Method Pulse Ox (%) 95 Pulse Rate (60-100 103 H beats/min) Full Laps Walked 10 Partial Lap, Number 0 of Tiles Walked Total Distance 590 Walked (ft) 01/07/25 08:22 Cardiopulmonary Services by Kelly Andrade Pt stated prior to start of walk that her RA was bad today. Pt did take multiple stops during walk that would last approximatively 10-15 seconds. Pt did state her breaks were do to pain and S.O.B. Initialized on 01/07/25 08:22 - END OF NOTE Interpretation Interpretation: The patient ambulated 590 feet over the course of 6 minutes beginning on room air without assistive devices. Pretesting oxygen saturation was noted to be 96% on room air. With ambulation, the talon oxygen saturation was 93%. Although there was evidence of impaired walk distance, there was no significant exertional oxygen desaturation. Recommendations Recommendations: There is no indication for the use of supplemental oxygen at this time.
== END | disposition home or self-care (01) ==
LOC: PSN 07:48
PROVIDERS: PCP Nurse Practitioner; Referring Provider Nurse Practitioner Acute Care; Visit Provider Nurse Practitioner Acute Care
DX: R06.09 Other forms of dyspnea (principal)
CPT/HCPCS: 94618

== ENCOUNTER → 2025-01-16 | Outpatient (CLI) | payer MEDICARE, SELFPAY | END | disposition home or self-care (01) | LOC: SL 10:26 | PROVIDERS: PCP Nurse Practitioner; Referring Provider Nurse Practitioner Family; Visit Provider Nurse Practitioner Family | DX: G47.33 Obstructive sleep apnea (adult) (pediatric) (principal) | CPT/HCPCS: 98960; G0463 ==

== ENCOUNTER → 2025-01-23 | Outpatient (CLI) | payer MEDICARE, SELFPAY ==
[2025-01-23 09:42] LABS: Absolute Lymphocyte Count 2.64 X10^3/uL (0.83-4.51); Absolute Neutrophil Count 4.4 X10^3/uL (2.0-7.7); Basophil# 0.03 X10^3/uL; Basophil% 0.4 % (0-1); Eosinophils% 1.3 % (0-5); Hematocrit 42.3 % (37-47); Hemoglobin 14.1 g/dL (12.0-15.0); Lymphocyte # 2.64 X10^3/ul (0.83-4.51); Lymphocyte % 34.2 % (19-41); Mean Corp Hgb Conc 33.3 g/dL (32-36); Mean Corpuscular Hgb 29.9 pg (27.0-32.0); Mean Corpuscular Volume 89.8 fL (81-99); Mean Platelet Vol. 11.5 fl (6.2-12.0); Monocyte# 0.49 X10^3/uL; Monocyte% 6.4 % (0-10); NRBC Flagged by Analyzer 0 % (0-5); Neutrophil # 4.44 X10^3/uL (2.7-7.7); Neutrophil % 57.6 % (47-70); Platelet Count 199 K/mm3 (150-450); RBC Distribution Width CV 13.4 % (11.6-14.6); RBC Distribution Width SD 44.2 fl (35.1-43.9); Red Blood Count 4.71 M/mm3 (4.2-5.4); White Blood Count 7.7 K/mm3 (4.4-11.0)
[2025-01-23 10:04] LABS: International Normalized Ratio 1.3; Prothrombin Time (Protime)PT. 16.6 SECONDS (11.7-14.9)
[2025-01-23 10:40] LABS: ALB/GLOB Ratio 1.3 RATIO (0.9-2.4); AST(SGOT) 74 U/L (<=31); Alanine Aminotransfer ALT/SGPT 97 U/L (<=34); Alkaline Phosphatase 109 U/L (35-104); Anion Gap 13 (5-15); BUN 20 mg/dL (4-19); BUN/Creat Ratio 24.9 RATIO (10-20); CRP < 3.00 mg/L (0.0-3.0); Calcium,Total 9.7 mg/dL (7.6-11.0); Carbon Dioxide 20.2 mmol/L (21.0-32.0); Chloride 107 mmol/L (98-108); Creatinine, Serum 0.82 mg/dL (0.70-1.20); EST Glomerular Filtration Rate 77 (>60); Globulin 3.2 g/dL (2.2-4.2); Glucose 162 mg/dL (70-99); Protein, Total 7.2 g/dL (5.9-8.4); Sodium Level 140 mmol/L (133-145); Total Bilirubin 0.34 mg/dL (0.00-1.30)
[2025-01-25 20:08] LABS: Beef <0.10 kU/L (Class 0); Chocolate <0.10 kU/L (Class 0); Codfish <0.10 kU/L (Class 0); Corn <0.10 kU/L (Class 0); Egg, Whole <0.10 kU/L (Class 0); Milk (Cow) <0.10 kU/L (Class 0); Mussels <0.10 kU/L (Class 0); Peanut <0.10 kU/L (Class 0); Pork <0.10 kU/L (Class 0); Salmon <0.10 kU/L (Class 0); Shrimp <0.10 kU/L (Class 0); Soybean <0.10 kU/L (Class 0); Tuna <0.10 kU/L (Class 0); Wheat <0.10 kU/L (Class 0)
== END | disposition home or self-care (01) ==
LOC: LAB 08:31
PROVIDERS: PCP Nurse Practitioner
DX: K21.9 Gastro-esophageal reflux disease without esophagitis (principal); R19.7 Diarrhea, unspecified; K59.00 Constipation, unspecified; K76.0 Fatty (change of) liver, not elsewhere classified
CPT/HCPCS: 36415; 80053; 82140; 85025; 85610; 86003; 86005; 86140

== ENCOUNTER → 2025-01-24 | Outpatient (CLI) | payer MEDICARE, SELFPAY ==
--- NOTE | 2025-01-24 06:01 | CT_ITS ---
PROCEDURE: CHEST WITHOUT CONTRAST 01/24/2025 REASON FOR EXAM: COUGH > 6 MONTHS, NORMAL CHEST XRAY TECHNIQUE: Chest CT without contrast. Coronal and Sagittal reconstruction series were provided. One or more dose reduction techniques were used (e.g., Automated exposure control, adjustment of the mA and/or kV according to patient size, use of iterative reconstruction technique RADIATION DOSE SUMMARY: CTDlvol: 20.15 mGy DLP: 674.64 mGycm COMPARISON: Prior chest radiograph dated December 07, 2024. FINDINGS: Hardware: Status post left mastectomy with left breast prostheses. Surgical clips are seen in the left axilla. Lymph nodes: Small benign-appearing mediastinal lymph nodes. Heart and Vasculature: Coronary artery calcifications are noted. Coronary Artery Calcifications: Present Lungs and Airways: Mild increased linear markings at the lung bases suggestive of mild basilar scarring. Increased markings are also seen along the posterior aspect of the right middle lobe suggestive of scarring. Pleura: No evidence of pleural effusion. Upper Abdomen: Prior cholecystectomy. Bones: Degenerative changes of the thoracic spine. CT/Chest without Contrast IMPRESSION: Coronary artery calcification (CAC) is is present Findings suggestive of linear scarring at the lung bases as well as in the post erior aspect of the right middle lobe. Reading Location: [facility]
[2025-01-28 08:08] LABS: Calprotectin, Stool 100 ug/g (0-120)
[2025-01-29 22:07] LABS: Pancreatic Elastase, Fecal > 800 (>200)
== END | disposition home or self-care (01) ==
LOC: CT 05:43
PROVIDERS: PCP Nurse Practitioner; Referring Provider Nurse Practitioner Family; Visit Provider Nurse Practitioner Family
DX: R05.9 Cough, unspecified (principal); K21.9 Gastro-esophageal reflux disease without esophagitis; R19.7 Diarrhea, unspecified; K59.00 Constipation, unspecified
CPT/HCPCS: 71250; 82653; 83993

== ENCOUNTER → 2025-02-05 | Outpatient (CLI) | payer MEDICARE, SELFPAY ==
--- NOTE | 2025-02-05 07:20 | US_ITS ---
PROCEDURE: ABD LIMITED W/ ELASTOGRAPHY REASON FOR EXAM: HISTORY OF LIVER DISEASE COMPARISON: None. TECHNIQUE: Right upper quadrant abdominal ultrasound. Marnie ElastQ Imaging shear wave elastography for non-invasive assessment of liver tissue stiffness. Marnie EPIQ Elite. FINDINGS: LIVER: Size: Enlarged (hepatomegaly) Length: 19.4 cm Echotexture: Diffusely echogenic suggesting fatty infiltration Contour: Normal Lesions: None identified Elastography: EQI Med: 10 kPa EQI Med Brandin: 1.8 m/s IQR/Med: 21 %* GALLBLADDER: Surgically absent. COMMON BILE DUCT: Dilated measuring up to 10 mm . PANCREAS: Visualized portions are unremarkable. The distal body and tail are obscured by bowel gas. Visualized portions of the right kidney are unremarkable. No right upper quadrant ascites. US/ABD Limited w/ Elastography IMPRESSION: MODERATE TO SEVERE HEPATIC FIBROSIS Hepatomegaly and diffuse fatty infiltration. Reference Values: SRU <1.37 m/s (5.7kPa): No to mild fibrosis 1.37 m/s - 2.2 m/s: Moderate to severe fibrosis >2.2 m/s (15kPa): Significant fibrosis / cirrhosis METAVIR Score F2 or higher: 1.34 m/s (5.7kPa) F3 or higher: 1.55 m/s (7.3kPa) F4: 1.80 m/s (10kPa) * If the IQR/Med is >30%, the variance in the measurements is a large and the a ccuracy of the measurement may be in question. Reading Location: [place] [id number]
== END | disposition home or self-care (01) ==
LOC: US 07:16
PROVIDERS: PCP Nurse Practitioner
DX: K21.9 Gastro-esophageal reflux disease without esophagitis (principal); K59.00 Constipation, unspecified; R19.7 Diarrhea, unspecified
CPT/HCPCS: 76705; 76981

== ENCOUNTER → 2025-05-09 | Outpatient (CLI) | payer MEDICARE, SELFPAY | END | disposition home or self-care (01) | LOC: SL 11:11 | PROVIDERS: PCP Nurse Practitioner; Visit Provider Nurse Practitioner Family | DX: Z00.00 Encounter for general adult medical examination without abnormal findings (principal) ==

== ENCOUNTER → 2025-06-30 10:59 | Outpatient (REF) | payer OTHER, SELFPAY ==
[2025-06-30 11:55] LABS: HIV Nonreactive (Nonreactive); Hepatitis B Surface Antigen Nonreactive (Nonreactive); Hepatitis C Antibody Nonreactive (Nonreactive)
== END ==
LOC: EDREF 10:59
PROVIDERS: PCP Nurse Practitioner; Visit Provider Emergency Medicine
DX: Z20.828 Contact with and (suspected) exposure to other viral communicable diseases (principal)
CPT/HCPCS: 86703; 86704; 86706; 86803; 87340

== ENCOUNTER → 2025-06-30 | Outpatient (CLI) | payer MEDICARE, SELFPAY ==
[2025-06-30 11:01] LABS: Anion Gap 10 (5-15); BUN 11 mg/dL (4-19); BUN/Creat Ratio 14.3 RATIO (10-20); Calcium,Total 9.6 mg/dL (7.6-11.0); Carbon Dioxide 23.1 mmol/L (21.0-32.0); Chloride 106 mmol/L (98-108); Glucose 121 mg/dL (70-99); Potassium 4.0 mmol/L (3.3-5.1)
== END | disposition home or self-care (01) ==
LOC: LAB 09:34
PROVIDERS: PCP Nurse Practitioner; Referring Provider Internal Medicine Cardiovascular Disease; Visit Provider Internal Medicine Cardiovascular Disease
DX: I50.32 Chronic diastolic (congestive) heart failure (principal)
CPT/HCPCS: 36415; 80048

== ENCOUNTER → 2025-08-01 | Outpatient (CLI) | payer MEDICARE, SELFPAY ==
[2025-08-01 11:18] LABS: Anion Gap 11 (5-15); BUN 16 mg/dL (4-19); BUN/Creat Ratio 17.9 RATIO (10-20); Calcium,Total 9.9 mg/dL (7.6-11.0); Carbon Dioxide 25.1 mmol/L (21.0-32.0); Chloride 102 mmol/L (98-108); Glucose 152 mg/dL (70-99); Potassium 4.0 mmol/L (3.3-5.1)
== END | disposition home or self-care (01) ==
LOC: LAB 10:06
PROVIDERS: PCP Nurse Practitioner; Referring Provider Student in an Organized Health Care Education/Training Program; Visit Provider Student in an Organized Health Care Education/Training Program
DX: I50.32 Chronic diastolic (congestive) heart failure (principal)
CPT/HCPCS: 36415; 80048

== ENCOUNTER 2025-08-02 10:26 | Emergency (ER) | payer MEDICARE, SELFPAY ==
[2025-08-02 10:26] VITALS: BP 121/85; PULSE 99; RESP 14; TEMP 36.6; O2SAT 98
[2025-08-02 10:28] VITALS: BMI 46.2
--- NOTE | 2025-08-02 11:00 | CT_ITS ---
PROCEDURE: EXTREMITY LOWER WITHOUT CONTRA 08/02/2025 REASON FOR EXAM: PAIN/TRAUMA TECHNIQUE: Procedure Code: CTELWO Modality: CT Procedure: EXTREMITY LOWER WITHOUT CONTRA Coronal and Sagittal reconstruction series were provided One or more dose reduction techniques were used (e.g., Automated exposure control, adjustment of the mA and/or kV according to patient size, use of iterative reconstruction technique). RADIATION DOSE SUMMARY: CTDlvol: 22.32 mGy DLP: 1954.04 mGycm COMPARISON: None. FINDINGS: Bones: No acute bony abnormalities. Joints: Left hip joint space narrowing with sclerosis and marginal osteophytes. Small knee joint effusion. Soft Tissues: No soft tissue abnormalities. CT/Extremity Lower without Contra IMPRESSION: Severe osteoarthritis of the left knee joint. Knee effusion. Reading Location: [id number]
--- NOTE | 2025-08-02 11:17 | EX.ED.DYSGE1 ---
HPI History of Present Illness Chief Complaint: Lower Extremity Injury Narrative Narrative: Chief complaint and HPI: 69-year-old female with past medical history of DM2, CHF, obesity, rheumatoid arthritis, paroxysmal atrial fibrillation on Eliquis presents for evaluation of left knee and calf pain. Patient states prior to arrival she was sitting in a wheelchair in which her was pushing her. They hit on even pavement in which it caused her knee to Hyperflex. States she then developed pain immediately in her knee and left calf. She states she felt a "pop." Denies any numbness or tingling. Unable to ambulate secondary to the pain. Review of systems: See HPI Medications: As listed on the chart Allergies: As listed on the chart PFSH: Per chart Vital signs: As listed on the chart. Reviewed. Physical exam: Gen: A&O x3, NAD Head: Normocephalic, atraumatic Eyes: No sclera icterus, conjunctiva clear ENT: Moist mucous membranes CV: Regular rate Resp: Nonlabored respirations Musc: Limited active and passive range of motion of the left lower extremity secondary to knee pain, knee mildly swollen compared to the right although difficult to assess given body habitus, no erythema/warmth/ecchymosis/crepitus, knee is tender to palpation diffusely including posteriorly, patella/quadriceps tendon intact, patient has tenderness to palpation of the left upper calf diffusely without swelling/warmth/ecchymosis/erythema, Achilles tendon intact without tenderness, ankle/foot nontender, DP/PT pulses +2 bilaterally, good capillary refill, sensation intact Skin: Warm, dry Psych: Cooperative, appropriate mood and affect [facility] Medical History Body mass index (BMI) 35 or more Bilateral acute otitis media Type 2 diabetes mellitus with hyperglycemia Shingles Right bundle branch block (RBBB) Nonobstructive atherosclerosis of coronary artery Chronic diastolic (congestive) heart failure Bronchitis [employer] exam for high-risk Medicare patient Lichen sclerosus Lichen sclerosus Chronic sinusitis Yeast infection Hepatic fibrosis, stage 3 History of cardioversion Paroxysmal atrial fibrillation Pure hypercholesterolemia Inez filter in place Rectal cancer PVD (peripheral vascular disease) Varicosities of leg Pneumonia Diverticulitis Chronic UTI (urinary tract infection) Lipoma Diarrhea Soft tissue mass Peptic ulcer disease Other chest pain UTI (urinary tract infection) Bronchitis Hypersomnia Diastolic dysfunction Malaise Obesity Sleep apnea Unstable angina Hypothyroidism History of recurrent deep vein thrombosis (DVT) History of cervical cancer History of colon cancer History of breast cancer Rheumatoid arthritis Home Medications Medication Instructions Recorded Last Taken Type tramadol 50 mg tablet 50 mg PO Q6H PRN Pain 08/23/18 Unknown History celecoxib 200 mg capsule 200 mg PO 1200 08/05/19 Unknown History blood-glucose meter (FreeStyle #1 ea 01/06/20 Unknown Rx [place] Lite kit) lancing device with lancets kit #1 ea 08/13/20 Unknown Rx ([employer] Plus Lancing Device kit) compress.stocking,knee,reg,lrg #2 ea 08/31/20 Unknown Rx FreeStyle Lite Strips (blood sugar #300 ea 12/08/21 Unknown Rx diagnostic) lancets 28 gauge (FreeStyle #120 ea 12/08/21 Unknown Rx Lancets) diphenoxylate-atropine 2.5 1 tab PO TID PRN diarrhea #30 tabs 09/26/22 Unknown Rx mg-0.025 mg tablet (Lomotil) levothyroxine 200 mcg tablet 200 mcg PO DAILY 01/05/24 Unknown History (Synthroid) sucralfate 1 gram tablet (Carafate) 1 g PO QDAY PRN before meals 01/05/24 Unknown History losartan 50 mg tablet 50 mg PO DAILY #90 tabs 11/13/24 Unknown Rx albuterol sulfate 90 mcg/actuation 2 puff inhalation Q4H PRN 11/19/24 Unknown Rx aerosol inhaler shortness of breath or wheezing #8.5 grams fluticasone propionate 50 2 spray intranasal DAILY #18.2 mL 11/19/24 Unknown Rx mcg/actuation nasal spray,suspension (Allergy Relief (fluticasone)) flecainide 100 mg tablet 100 mg PO Q12H #180 tabs 01/02/25 Unknown Rx famotidine 40 mg tablet 40 mg PO QHS #30 tabs 01/23/25 Unknown Rx pantoprazole 40 mg tablet,delayed 40 mg PO BID #60 tabs 01/23/25 Unknown Rx release apixaban 5 mg tablet (Eliquis) 5 mg PO BID #180 tabs 04/28/25 Unknown Rx clobetasol 0.05 % topical ointment 1 applic topical QHS PRN lichen 06/24/25 Unknown Rx sclerosis #30 grams nystatin 100,000 unit/gram topical 1 applic topical BID PRN itching 06/24/25 Unknown Rx powder #30 grams hydrochlorothiazide 25 mg tablet 25 mg PO QAM #90 tabs 06/27/25 Unknown Rx metoprolol succinate 25 mg 25 mg PO QDAY #90 tabs 06/27/25 Unknown Rx tablet,extended release 24 hr tirzepatide 5 mg/0.5 mL 5 mg subcut QWEEK 06/27/25 Unknown History subcutaneous pen injector (Mounjaro) ergocalciferol (vitamin D2) 1,250 1,250 mcg PO QWEEK 08/02/25 Unknown History mcg (50,000 unit) capsule furosemide 40 mg tablet 40 mg PO DAILY edema 08/02/25 Unknown History Allergy/AdvReac Type Severity Reaction Status Date / Time infliximab (From Remicade) Allergy Severe Anaphylaxis Verified 08/02/25 10:27 oxymetazoline (From Afrin Allergy Severe CHEST PAIN Verified 08/02/25 10:27 (oxymetazoline)) Penicillins Allergy Hives Verified 08/02/25 10:27 adhesive tape AdvReac Severe / Verified 08/02/25 10:27 clarithromycin AdvReac Severe crmps and Verified 08/02/25 10:27 diarrhea dulaglutide (From Trulicity) AdvReac Severe Abd Verified 08/02/25 10:27 cramps/diarrhea latex AdvReac Severe / Verified 08/02/25 10:27 spironolactone (From AdvReac Severe headaches Verified 08/02/25 10:27 Aldactone) Family History Mother Rheumatoid arthritis Brother Rheumatoid arthritis CAD (coronary artery disease) Heart disease Father CAD (coronary artery disease) Kidney disease Heart disease Grandmother Breast cancer Surgical History History of cholecystectomy Lipoma S/P left knee arthroscopy History of liver biopsy History of mastectomy, subtotal History of lumpectomy of left breast H/O thyroidectomy History of left heart catheterization (LHC) Social History Smoking Status: Former smoker how long ago did patient quit smokin years ago second hand exposure: Yes alcohol intake: current alcohol intake frequency: holidays/special occasions only details: social substance use type: does not use caffeine: Yes Type: coffee Number of servings: 1 what type of physical activity do you participate in: none seatbelt use: always do you feel safe at home: Yes additional social history: [employer] Patient is retired EXAM Physical Exam Const Vital Signs: 08/02/25 10:26 08/02/25 12:59 Temperature 98 F 98 F Temperature Source Temporal Oral Pulse Rate 99 82 Respiratory Rate 14 16 Blood Pressure 121/85 H 121/94 H Blood Pressure Mean 97 103 Pulse Ox 98 97 Oxygen Delivery Method Room Air Room Air MDM MDM MDM Narrative Medical decision making narrative: 69-year-old female with past medical history of DM2, CHF, obesity, rheumatoid arthritis, paroxysmal atrial fibrillation on Eliquis presents for evaluation of left knee and calf pain. Patient states prior to arrival she was sitting in a wheelchair in which her was pushing her. They hit on even pavement in which it caused her knee to Hyperflex. States she then developed pain immediately in her knee and left calf. Denies any numbness or tingling. See physical exam findings. Differential diagnosis includes but is not limited to fracture, hematoma, effusion, muscle injury, tendon/ligament injury. Given patient's significant pain we will obtain CT of the lower extremity instead of x-rays. Oxycodone ordered for pain. CTA of the left lower extremity shows severe osteoarthritis of the left knee joint. Knee effusion. No soft tissue abnormalities. No fractures. Patient still endorsing pain in the knee. Therefore will apply knee immobilizer with toe-touch ambulation with walker. Patient was able to ambulate. She did have some difficulty. She was comfortable discharging home. Recommend following up with orthopedic physician. Return back to ED symptoms change or worsen. Home tramadol and Tylenol as needed for pain. Elevation for swelling. She confirmed understand the plan. Impression: 1. Left knee pain 2. Left knee effusion Radiography Diagnostic Testing: Clinical Impression(s) from Imaging Studies Lower Extremity CT 08/02/25 11:00 IMPRESSION: Severe osteoarthritis of the left knee joint. Knee effusion. Reading Location: [facility] Discharge Plan Triage Chief Complaint: Lower Extremity Injury ED Provider: Irving Cat Dx/Rx/DC Orders Prescriptions: No Action tramadol 50 mg tablet 50 mg PO Q6H PRN (Reason: Pain) (DME) blood-glucose meter [FreeStyle [place] Lite] Kit See Rx Instructions .ROUTE .MEDSUPPLY Qty: 1 0RF Rx Instructions: As directed (DME) lancing device with lancets [[employer] Delica Plus Lanc Dev] Kit See Rx Instructions .ROUTE .MEDSUPPLY Qty: 1 0RF Rx Instructions: As directed (DME) compress.stocking,knee,reg,lrg Misc See Rx Instructions .MEDSUPPLY Qty: 2 1RF Rx Instructions: wear daily for venous insufficiency 20-30 mmHg levothyroxine [Synthroid] 200 mcg tablet 200 mcg PO DAILY sucralfate [Carafate] 1 gram tablet 1 g PO QDAY PRN (Reason: before meals) Mounjaro 5 mg/0.5 mL pen injector 5 mg subcut QWEEK hydrochlorothiazide 25 mg tablet 25 mg PO QAM Qty: 90 3RF metoprolol succinate 25 mg tablet extended release 24 hr 25 mg PO QDAY Qty: 90 3RF famotidine 40 mg tablet 40 mg PO QHS Qty: 30 2RF pantoprazole 40 mg tablet,delayed release (DR/EC) 40 mg PO BID Qty: 60 2RF albuterol sulfate 90 mcg/actuation HFA aerosol inhaler 2 puff INHALATION Q4H PRN (Reason: shortness of breath or wheezing) Qty: 8.5 4RF fluticasone propionate [Allergy Relief (fluticasone)] 50 mcg/actuation spray,suspension 2 spray INTRANASAL DAILY Qty: 18.2 12RF Rx Instructions: administer into each nostril celecoxib 200 mg capsule 200 mg PO 1200 furosemide 40 mg tablet 40 mg PO DAILY ergocalciferol (vitamin D2) 1,250 mcg (50,000 unit) capsule 1,250 mcg PO QWEEK (DME) lancets [FreeStyle Lancets] 28 gauge misc See Rx Instructions .ROUTE .MEDSUPPLY Qty: 120 6RF Rx Instructions: 4x/day (DME) FreeStyle Lite Strips Strip See Rx Instructions .ROUTE .MEDSUPPLY Qty: 300 3RF Rx Instructions: 3 times daily diphenoxylate-atropine [Lomotil] 2.5-0.025 mg tablet 1 tab PO TID PRN (Reason: diarrhea) Qty: 30 0RF losartan 50 mg tablet 50 mg PO DAILY Qty: 90 3RF flecainide 100 mg tablet 100 mg PO Q12H Qty: 180 3RF Eliquis 5 mg tablet 5 mg PO BID Qty: 180 3RF clobetasol 0.05 % ointment 1 applic topical QHS PRN (Reason: lichen sclerosis) Qty: 30 1RF Rx Instructions: apply thin layer; massage gently into affected area nystatin 100,000 unit/gram powder 1 applic topical BID PRN (Reason: itching) Qty: 30 1RF Primary Care Provider: Leonora Davalos NP Referrals: Leonora Davalos NP, [employer] [Primary Care Provider, Family Practice] Print Language: Beninese
--- OUTSIDE RECORDS SUMMARY | 2025-08-02 11:28 | XMS RPT_ITS | CCD ---
Author Organization [facility] Care Team Providers Care Parole Officer Name Role Phone Betsy Miller Krystle Unavailable Unavailable Betsy Miller Unavailable Unavailable Dr. Shiraz Stephens Primary Care Provider Dr. Shiraz Stephens Referring Provider Faraz RN CARDIOVASCULAR ICU, RN CARDIOVASCULAR ICU-Yeyo Hill Attending Provider Dr. Niko Edgar Attending Provider Camp RN CARDIOVASCULAR ICU, RN CARDIOVASCULAR ICU-Yeyo Ann Attending Provider Ryan Tovar MD Unavailable Shiraz Stephens MD Primary Care Provider Rosy Esteban MD Unavailable Dr. Shiraz Stephens Primary Care Provider Dr. Shiraz Stephens Referring Provider Faraz RN CARDIOVASCULAR ICU, IJEOMA-Yeyo Hill Attending Provider [place] Lisa Attending Provider Unavailab Aly Lazo DO Unavailable Anoop MAGDALENO.Leonora AL Primary Care Provide r Ryan Tovar MD Unavailable Rosy Esteban MD Unavailable Aly Mosley DO Unavailable Leonora Davalos APRN.CNP Primary Care Provide r Ryan Tovar MD Unavailable Anoop COMMUTER [employer], Leonora L Primary Care Provide r Ryan Tovar MD Unavailable Unavaila ble Anoop COMMUTER [employer], Leonora L Primary Care Provide r Dr. Shiraz Stephens Primary Care Provider Dr. Shiraz Stephens Referring Provider [phone] Dr. Carson Hobbs Attending Provider Dr. Carlos Eduardo Matute Attending Provider Anoop RN CARDIOVASCULAR ICU, RN CARDIOVASCULAR ICU-C Leonora Primary Care Provider Dr. Cayla Jolley Attending Provider La QUAN, Ryan Aguilar Unavailable Carlito QUAN, Rosy Unavailable Aly Mosley DO Unavailable Anoop [employer], Leonora L Primary Care Provide r Anoop RN CARDIOVASCULAR ICU, RN CARDIOVASCULAR ICU-C Leonora Referring Provider Cuong RAPHAEL, RN CARDIOVASCULAR ICU-C Tanya Mireles Attending Provider Dr. Shiraz Stephens Referring Provider Dr. Cayla Jolley Attending Provider [phone] Anoop RN CARDIOVASCULAR ICU, RN CARDIOVASCULAR ICU-C Leonora Primary Care Provider Anoop RN CARDIOVASCULAR ICU, RN CARDIOVASCULAR ICU-C Leonora Referring Provider Cuong RAPHAEL NP-C Tanya Mireles Attending Provider Faraz RN CARDIOVASCULAR ICU, IJEMOA-Yeyo Hill Attending Provider Anoop RN CARDIOVASCULAR ICU, RN CARDIOVASCULAR ICU-C Leonora Primary Care Provider Anoop RN CARDIOVASCULAR ICU, RN CARDIOVASCULAR ICU-C Leonora Referring Provider Zoë RAPHAEL, RN CARDIOVASCULAR ICUErwin Ann Attending Provider Faraz RN CARDIOVASCULAR ICU, RN CARDIOVASCULAR ICU-C Mehrdad Hill Attending Provider Camp RN CARDIOVASCULAR ICU, RN CARDIOVASCULAR ICU-C Marissa Referring Provider Camp RN CARDIOVASCULAR ICU, RN CARDIOVASCULAR ICU-C Marissa Other Provider Dr. Yaya Gray Attending Provider Carlito QUAN, Rosy Unavailable Aly Mosley DO Unavailable Davalos RN CARDIOVASCULAR ICU, RN CARDIOVASCULAR ICU-C Leonora Primary Care Provider Davalos RN CARDIOVASCULAR ICU, RN CARDIOVASCULAR ICU-C Leonora Referring Provider Roof RN CARDIOVASCULAR ICU, RN CARDIOVASCULAR ICU-C Mehrdad Hill Attending Provider Camp RN CARDIOVASCULAR ICU, RN CARDIOVASCULAR ICU-C Marissa Referring Provider Camp RN CARDIOVASCULAR ICU, RN CARDIOVASCULAR ICU-C Marissa Other Provider Dr. Yaya Gray Attending Provider Dr. Carson Hobbs Attending Provider Dr. Carlos Eduardo Matute Attending Provider Davalos RN CARDIOVASCULAR ICU, RN CARDIOVASCULAR ICU-C Leonora Primary Care Provider Faraz RN CARDIOVASCULAR ICU, RN CARDIOVASCULAR ICU-C Mehrdad Hill Attending Provider Davalos RN CARDIOVASCULAR ICU, RN CARDIOVASCULAR ICU-C Leonora Referring Provider Samantha RN CARDIOVASCULAR ICU, RN CARDIOVASCULAR ICU-C Padmini Attending Provider Aly Mosley DO Unavailable Anoop [employer], Leonora L Primary Care Provide r Davalos RN CARDIOVASCULAR ICU-C, Leonora Primary Care Provider Davalos RN CARDIOVASCULAR ICU-C, Leonora Referring Provider Dr. Cayla Jolley MD Attending Provider Zoë RN CARDIOVASCULAR ICU-C, Marissa Attending Provider Dr. Cayla Jolley MD Referring Provider [phone] Dr. Tonja Givens DO Attending Provider Dr. Tonja Givens DO Emergency Provider Roof RN CARDIOVASCULAR ICU-C, Mehrdad H Attending Provider Roof RN CARDIOVASCULAR ICU-C, Mehrdad H Referring Provider Davalos RN CARDIOVASCULAR ICU-C, Leonora Attending Provider Davalos RN CARDIOVASCULAR ICU-C, Leonora Primary Care Provider Davalos RN CARDIOVASCULAR ICU-C, Leonora Referring Provider Shola QUAN, Dr. Kulkarni Attending Provider Zoë RN CARDIOVASCULAR ICU-C, Marissa Attending Provider Dr. Cayla Jolley MD Referring Provider Chon MAGALLANES, Dr. Henderson Attending Provider Dr. Tonja Givens DO Emergency Provider Roof RN CARDIOVASCULAR ICU-C, Mehrdad H Attending Provider Roof RN CARDIOVASCULAR ICU-C, Mehrdad H Referring Provider Davalos RN CARDIOVASCULAR ICU-C, Leonora Attending Provider Camp RN CARDIOVASCULAR ICU-C, Marissa Referring Provider Sunita Delgado Attending Provider Sunita Delgado Referring Provider Anjel QUAN, Dr. Byrd Attending Provider Unavailable Primary Care Provider Unavailabl e Davalos RN CARDIOVASCULAR ICU-C, Leonora Primary Care Provider Davalos RN CARDIOVASCULAR ICU-C, Leonora Referring Provider Camp RN CARDIOVASCULAR ICU-C, Marissa Attending Provider Zoë RN CARDIOVASCULAR ICU-C, Marissa Other Provider [phone] Yaya Gray DO Attending Provider [phone] Liam RN CARDIOVASCULAR ICU-CAda Attending Provider Liam RN CARDIOVASCULAR ICU-C, Ada Mireles Referring Provider Mauro RN CARDIOVASCULAR ICU-CAntonietta Attending Provider Mauro RAPHAEL-C, Antonietta Referring Provider Davalos RN CARDIOVASCULAR ICU-C, Leonora Primary Care Provider [phone] Mauro RN CARDIOVASCULAR ICU-C, Antonietta Other Provider Robin QUAN, Elmer Unavailable Davalos [employer], Leonora L Unavailable [phone] Erin QUAN, Pilar Unavailable Sameera QUINONES, Kwasi Unavailable La QUAN, Ryan Aguilar Unavailable Sameera QUINONES, Kwasi Unavailable Davalos RN CARDIOVASCULAR ICU-C, Leonora Primary Care Provider Roof RN CARDIOVASCULAR ICU-C, Mehrdad H Attending Provider Roof RN CARDIOVASCULAR ICU-C, Mehrdad H Referring Provider Anjel QUAN, Dr. Byrd Attending Provider Camp RN CARDIOVASCULAR ICU-C, Marissa Attending Provider Zoë RN CARDIOVASCULAR ICU-C, Marissa Referring Provider Zoë RN CARDIOVASCULAR ICU-C, Marissa Other Provider Dr. Yaya Gray DO Attending Provider [phone] Davalos RN CARDIOVASCULAR ICU-C, Leonora Referring Provider Liam RN CARDIOVASCULAR ICU-C, Ada Mireles Attending Provider Liam RN CARDIOVASCULAR ICU-C, Ada Mireles Referring Provider Mauro RN CARDIOVASCULAR ICU-C, Antonietta Attending Provider [phone] Mauro RN CARDIOVASCULAR ICU-C, Antonietta Referring Provider [phone] Wade RN CARDIOVASCULAR ICU-C, Antonietta Other Provider Davalos RN CARDIOVASCULAR ICU-C, Leonora Attending Provider Davalos RN CARDIOVASCULAR ICU-C, Leonora Primary Care Provider [phone] DAVALOS, LEONORA L Primary Care Unavailable MARLON CESAR Referring Unavailab le DAVALOS, LEONORA L Primary Care Unavailable MARLON CESAR Referring Unavailab le DAVALOS, LEONORA L Primary Care Unavailable MARLON CESAR Referring Unavailab le DAVALOS, LEONORA L Primary Care Unavailable RENEE ECHEVERRIA Referring Unavailable DAVALOS, LEONORA L Primary Care Unavailable MEHRDAD VELASQUEZ Referring Unavailable PILAR KHAN Attending Unavailable MONA ALSTON Admitting Unavailable ELMER MANLEY Consulting Unavailable CARLITO, KHALED Referring Unavailable DAVALOS, LEONORA L Primary Care Unavailable CARLITO, KHALED Referring Unavailable DAVALOS, LEONORA L Primary Care Unavailable DAVALOS, LEONORA L Primary Care Unavailable MEHRDAD VELASQUEZ Attending Unavailable KUPIEC, ELICEO Referring Unavailable DAVALOS, LEONORA L Primary Care Unavailable KUPIEC, ELICEO Referring Unavailable DAVALOS, LEONORA L Primary Care Unavailable CARLITO, KHALED Referring Unavailable DAVALOS, LEONORA L Primary Care Unavailable Elmer Manley MD Unavailable MARLON CESAR Referring Unavailab ARIEL Abbasi Attending Unavailable DAVALOS, LEONORA L Primary Care Unavailable Davalos RN CARDIOVASCULAR ICU-C, Leonora Primary Care Provider [phone] Mauro RN CARDIOVASCULAR ICU-CAntonietta Attending Provider Mauro RN CARDIOVASCULAR ICU-CAntonietta Referring Provider Anoop RN CARDIOVASCULAR ICU-C, Leonora Referring Provider Liam RAPHAEL-CAda Attending Provider DAVALOS, LEONORA L Primary Care Unavailable ROYER FERGUSON Attending Unavailable ROYER FERGUSON Referring Unavailable ROYER FERGUSON Referring Unavailable ROYER FERGUSON Attending Unavailable DAVALOS, LEONORA L Primary Care Unavailable COLT AMBRIZANY Attending Unavailable DAVALOS, LEONORA L Primary Care Unavailable ELICEO AMBRIZ Attending Unavailable DAVALOS, LEONORA L Primary Care Unavailable MARLON CESAR Attending Unavailab le DAVALOS, LEONORA L Primary Care Unavailable CARLITO, KHALED Referring Unavailable DAVALOS, LEONORA L Primary Care Unavailable ROYER FERGUSON Referring Unavailable DAVALOS, LEONORA L Primary Care Unavailable ROYER FERGUSON Attending Unavailable DAVALOS, LEONORA L Primary Care Unavailable ROYER FERGUSON Attending Unavailable ROYER FERGUSON Referring Unavailable Davalos RN CARDIOVASCULAR ICU-C, Leonora Primary Care Physician Davalso RN CARDIOVASCULAR ICU-C, Leonora Referring Provider Liam RAPHAEL-Ada Orona Attending Physician Anjel QUAN, Dr. Byrd Attending Physician Anjel QUAN, Dr. Byrd Referring Provider Luis QUAN, Dr. Guerrero Attending Physician Camp RN CARDIOVASCULAR ICU, Marissa Attending Unavailable Camp RN CARDIOVASCULAR ICU, Marissa Referring Unavailable Davalos RN CARDIOVASCULAR ICU, Leonora Primary Care Unavailable Roof RN CARDIOVASCULAR ICU, Mehrdad H Referring Unavailable Roof RN CARDIOVASCULAR ICU, Mehrdad H Attending Unavailable Davalos RN CARDIOVASCULAR ICU, Leonora Primary Care Unavailable Antonietta Wade Referring Unavailable Antonietta Wade Attending Unavailable Davalos RN CARDIOVASCULAR ICU, Leonora Primary Care Unavailable Ada Wheeler Attending Unavailable Davalos RN CARDIOVASCULAR ICU, Leonora Primary Care Unavailable Davalos RN CARDIOVASCULAR ICU, Leonora Primary Care Unavailable Valentina JAY, Sunita M Referring Unavail able Sunita Delgado Attending Unavail able Camp RN CARDIOVASCULAR ICU, Marissa Attending Unavailable Camp RN CARDIOVASCULAR ICU, Marissa Referring Unavailable Davalos RN CARDIOVASCULAR ICU, Leonora Primary Care Unavailable Yaya Gray Attending Unavailable Davalos RN CARDIOVASCULAR ICU, Leonora Primary Care Unavailable Camp RN CARDIOVASCULAR ICU, Marissa Consulting Unavailable Camp RN CARDIOVASCULAR ICU, Marissa Referring Unavailable Davalos RN CARDIOVASCULAR ICU, Leonora Referring Unavailable Davalos RN CARDIOVASCULAR ICU, Leonora Primary Care Unavailable Camp RN CARDIOVASCULAR ICU, Marissa Attending Unavailable Antonietta Wade Referring Unavailable Antonietta Wade Attending Unavailable Davalos RN CARDIOVASCULAR ICU, Leonora Primary Care Unavailable Davalos RN CARDIOVASCULAR ICU, Leonora Primary Care Unavailable Tonja Givens Attending Unavailable Davalos RN CARDIOVASCULAR ICU, Leonora Primary Care Unavailable Carson Hobbs Referring Unavailable Carson Hobbs Attending Unavailable Cesar Smith Attending Unavailable Davalos RN CARDIOVASCULAR ICU, Leonora Primary Care Unavailable Davalos RN CARDIOVASCULAR ICU, Leonora Primary Care Unavailable Cayla Jolley Referring Unavailable Cayla Jolley Attending Unavailable Ada Wheeler Referring Unavailable Ada Wheeler Attending Unavailable Davalos RN CARDIOVASCULAR ICU, Leonora Primary Care Unavailable Ada Wheeler Referring Unavailable Ada Wheeler Attending Unavailable Antonietta Wade Consulting Unavailable Davalos RN CARDIOVASCULAR ICU, Leonora Primary Care Unavailable Davalos RN CARDIOVASCULAR ICU, Leonora Primary Care Unavailable Cayla Jolley Referring Unavailable Cayla Jolley Attending Unavailable Davalos RN CARDIOVASCULAR ICU, Leonora Referring Unavailable Ada Wheeler Attending Unavailable Anoop RN CARDIOVASCULAR ICU, Leonora Primary Care Unavailable Davalos RN CARDIOVASCULAR ICU, Leonora Referring Unavailable Davalos RN CARDIOVASCULAR ICU, Leonora Primary Care Unavailable Carson Hobbs Attending Unavailable Davalos RN CARDIOVASCULAR ICU, Leonora Primary Care Unavailable Cayla Jolley Referring Unavailable Cayla Jolley Attending Unavailable Roof RN CARDIOVASCULAR ICU, Mehrdad H Referring Unavailable Roof RN CARDIOVASCULAR ICU, Mehrdad H Attending Unavailable Davalos RN CARDIOVASCULAR ICU, Leonora Primary Care Unavailable Davalos RN CARDIOVASCULAR ICU, Leonora Primary Care Unavailable Davalos RN CARDIOVASCULAR ICU, Leonora Referring Unavailable Roof RN CARDIOVASCULAR ICU, Mehrdad H Attending Unavailable Davalos RN CARDIOVASCULAR ICU, Leonora Referring Unavailable Antonietta Wade Attending Unavailable Davalos RN CARDIOVASCULAR ICU, Leonora Primary Care Unavailable Davalos RN CARDIOVASCULAR ICU, Leonora Referring Unavailable Ada Wheeler Attending Unavailable Davalos RN CARDIOVASCULAR ICU, Leonora Primary Care Unavailable Davalos RN CARDIOVASCULAR ICU, Leonora Referring Unavailable Davalos RN CARDIOVASCULAR ICU, Leonora Primary Care Unavailable Cayla Jolley Attending Unavailable Yaya Gray Attending Unavailable Davalos RN CARDIOVASCULAR ICU, Leonora Primary Care Unavailable Camp RN CARDIOVASCULAR ICU, Marissa Referring Unavailable Davalos RN CARDIOVASCULAR ICU, Leonora Primary Care Unavailable Carson Hobbs Attending Unavailable Allergies Allergy Classification Reported Allergen(s) Allergy Type Date of Onset Reaction(s) Facility Adhesive Tape (1 source) Adhesive Tape Substance Allergy 01-08-20 02 [facility] inFLIXimab (1 source) inFLIXimab Drug Allergy 10-21-19 21 Shortness of Breath [facility] Macrolides (antibiotic) (2 sources) Clarithromycin Drug Allergy 02-17-20 09 Hives, GI Upset, Swelling [facility] metFORMIN (1 source) metFORMIN Drug Allergy 05-25-20 22 GI Upset [facility] Opioid Agonists (1 source) Meperidine Drug Allergy 03-14-20 12 Other: See Comments [facility] Penicillins (antibiotic) (1 source) Penicillins Drug Allergy 07-07-20 03 [facility] Quinolones (antibiotic) (1 source) moxifloxacin Drug Allergy 02-17-20 09 [facility] Spironolactone (1 source) Spironolactone Drug Allergy 05-14-20 20 Intolerance [facility] Work Phone: (2 sources) penicillin g Drug Allergy 06-12-20 17 hives Pulmonary Medicine [facility] Work Phone: (20 sources) Adhesive Tape; Translations: [ADHESIVE TAPE] Propensity to adverse reactions 01-08-20 02 / [facility] (20 sources) Clarithromycin; Translations: [CLARITHROMYCIN] Drug Allergy 02-18-20 09 Hives, GI Upset [facility] (20 sources) inFLIXimab; Translations: [INFLIXIMAB] Drug Allergy 10-21-19 Shortness of Breath [facility] (20 sources) Latex Propensity to adverse reactions 11-30-19 / [facility] (20 sources) Oxymetazoline Drug Allergy 11-30-19 CHEST PAIN [facility] (20 sources) Penicillins; Translations: [PENICILLINS] Allergy to substance 07-07-20 03 Hives [facility] (20 sources) Spironolactone; Translations: [SPIRONOLACTONE] Drug Allergy 05-14-20 20 Intolerance [facility] Work Phone: (20 sources) Erythromycin; Translations: [ERYTHROMYCIN] Drug Allergy 02-17-20 09 Swelling [facility] (20 sources) Meperidine; Translations: [MEPERIDINE (PF)] Drug Allergy 03-14-20 12 Other: See Comments [facility] (20 sources) moxifloxacin; Translations: [MOXIFLOXACIN HCL] Drug Allergy 02-17-20 09 [facility] (20 sources) Quinolones (Antibiotic); Translations: [QUINOLONES] Propensity to adverse reactions 07-12-20 04 [facility] (20 sources) some sort of dissolving suture [Other] Propensity to adverse reactions 12-28-19 05 [facility] (20 sources) Quinolones Propensity to adverse reactions 07-12-20 04 [facility] (20 sources) metFORMIN; Translations: [METFORMIN] Drug Allergy 05-25-20 GI Upset [facility] (20 sources) Sutures; Translations: [SUTURES] Propensity to adverse reactions to drug 11-28-19 Other: See Comments [facility] Work Phone: (11 sources) dulaglutide Drug Allergy 11-14-19 25 Abd cramps/diarrhe a [facility] (1 source) Clarithromycin Drug Allergy 06-27-20 25 [facility] Repository (1 source) dulaglutide Drug Allergy 06-27-20 25 [facility] Repository (1 source) inFLIXimab Drug Allergy 06-27-20 25 [facility] Repository (1 source) Latex Drug allergy (disorder) 06-27-20 [facility] Repository (1 source) Oxymetazoline Drug Allergy 06-27-20 [facility] Repository (1 source) Spironolactone Drug Allergy 06-27-20 [facility] Repository Medications Current Medications Medication Drug Class(es) Dates Sig (Normalized) Sig (Original) atropine sulfate 0.025 mg / diphenoxylate hydrochloride 2.5 mg oral tablet (16 sources) Anticholinergic, Cholinergic Muscarinic Antagonist, Antidiarrheal Start: 09-26-2022 Start: 09-26-2022 Blood-Glucose Meter ([place]esty [place] Lite) kit (15 sources) Start: 01-06-2020 Blood-Glucose Meter (Freestyle [place] Lite) kit Active 0 .ROUTE .MEDSUPPLY January 06, 2020 8:22am As directed Start: 01-06-2020 Blood-Glucose Meter (Freestyle [place] Lite) kit Active 0 .ROUTE .MEDSUPPLY 1 January 06, 2020 12:00am As directed Start: 01-06-2020 Blood-Glucose Meter (Freestyle [place] Lite) kit Active 0 .ROUTE .MEDSUPPLY 1 January 06, 2020 12:00am As directed Start: 01-06-2020 Blood-Glucose Meter (Freestyle [place] Lite) kit Active 0 .ROUTE .MEDSUPPLY January 05, 2020 11:00pm As directed Blood-Glucose Meter (ONETOUC H ULTRA2 METER) monitoring kit (20 sources) Start: 06-09-2023 Blood-Glucose Meter (ONETOUCH ULTRA2 METER) monitoring kit Indications: Controlled type 2 diabetes mellitus without complication, without long-term current use of insulin (HCC) Use to test blood sugar daily, DX: E11.9, NIDDM 1 Each 06/09/2023 Active Start: 06-09-2023 Blood-Glucose Meter (ONETOUCH ULTRA2 METER) monitoring kit Indications: Controlled type 2 diabetes mellitus without complication, without long-term current use of insulin (HCC) Use to test blood sugar daily, DX: E11.9, NIDDM 1 Each 0 06/09/2023 Active Comment on above: Use to test blood cade gar daily, DX: E11.9, NIDDM celecoxib 200 mg oral capsule (20 sources) Nonsteroidal Anti-inflammatory Drug Start: 06-01-2017 End: 08-05-2019 Comment on above: Take 1 capsule by [facility] once daily. cholestyramine resin 4000 mg powder for oral suspension (1 source) Bile Acid Sequestrant Start: 05-21-2025 cholestyramine-sucro se (QUESTRAN) 4 gram powder Take 4 g by mouth three times a week. Every Monday, Monday and Monday. 144 g 05/21/2025 Active clobetasol propionate 0.0005 mg/mg topical ointment (20 sources) Corticosteroid Start: 06-24-2025 Start: 08-28-2023 End: 06-24-2025 Clobetasol 0.05 % ointment D iscontinued 1 [facility] TOPICAL AT BEDTIME as needed for lichen sclerosis 10 10August 28, 2023 10:09am June 24, 2025 9:09am apply thin layer; massage gently into affected area Start: 08-28-2023 Start: 01-21-2021 End: 04-17-2023 Clobetasol 0.05 % ointment D iscontinued 1 [facility] TOPICAL AT BEDTIME 08 12July 26, 2022 2:13pm April 17, 2023 9:12am apply thin layer; massage gently into affected area nightly x 6 weeks then 1-2x weekly Compress.Stocking,Knee,Reg,L rg (10 sources) Start: 08-31-2020 Compress.Stocking,Knee,Reg,L rg Active 0 .MEDSUPPLY August 31, 2020 9:59am wear daily for venous insufficiency 20-30 mmHg Start: 08-31-2020 Compress.Stock ing,Knee,Reg,Lrg Active 0 .MEDSUPPLY August 31, 2020 1:00am wear daily for venous insufficiency 20-30 mmHg Start: 08-31-2020 Compress.Stock ing,Knee,Reg,Lrg Active 0 .MEDSUPPLY August 31, 2020 12:00am wear daily for venous insufficiency 20-30 mmHg Compress.Stocking,Knee,Reg,L rg misc (5 sources) Start: 08-31-2020 Compress.Stocking,Knee,Reg,L rg misc Active 0 .MEDSUPPLY 2 August 31, 2020 1:00am Venous insufficiency (chronic) (peripheral) wear daily for venous insufficiency 20-30 mmHg Start: 08-31-2020 Compress.Stock ing,Knee,Reg,Lrg misc Active 0 .MEDSUPPLY 2 August 31, 2020 1:00am wear daily for venous insufficiency 20-30 mmHg CPAP (20 sources) CPAP Active CPAP enteric contrast (will be provided with radiology test) (15 sources) Start: 04-08-[address] (will be provided with radiology test) Indications: Diverticulitis , Nausea and vomiting, unspecified vomiting type , Diarrhea, unspecified type For CT ABD/PEL W IVCON Routine order Administer, As Directed One Time Only, via Oral, Rectal, both Oral and Rectal, Enteric Tube, Stoma or Indwelling Catheter, Enteric Contrast as designated per enteric contrast guidelines 1 each 04/08/2025 Active Start: 03-11-2024 End: 03-12-2024 enteric contrast (will be pr ovided with radiology test) For CT ABD/PEL W IVCON Routine order Administer, As Directed One Time Only, via Oral, Rectal, both Oral and Rectal, Enteric Tube, Stoma or Indwelling Catheter, Enteric Contrast as designated per enteric contrast guidelines 1 Each 0 03/11/2024 03/12/2024 Active famotidine 40 mg oral tablet (12 sources) Histamine-2 Receptor Antagonist Start: 01-23-2025 End: 05-24-2025 take 1 tablet by mouth at bedtime Start: 01-23-2025 hydroCHLOROthiazide 25 mg oral tablet (1 source) Thiazide Diuretic Start: 06-27-2025 take 1 tablet by mouth once daily in the morning iv contrast (will be provided with radiology test) (15 sources) Start: 04-08-2025 iv contrast (will be provided with radiology test) Indications: Diverticulitis , Nausea and vomiting, unspecified vomiting type , Diarrhea, unspecified type CT ABD/PEL -Inject, intravenously, once for 1 dose.No IV access, insert saline lock prior to the beginning of sedation, infusion, injection of imaging exam. Discontinue saline lock post exam. If Pt. has a central line or IVAD, may access for administration according to line specific nursing protocol. Once exam is complete flush line and de-access according to line specific nursing protocol in the CT contrast administration guidelines link. 1 each 04/08/2025 Active Start: 03-11-2024 End: 03-12-2024 iv contrast (will be provide d with radiology test) CT ABD/PEL -Inject, intravenously, once for 1 dose.No IV access, insert saline lock prior to the beginning of sedation, infusion, injection of imaging exam. Discontinue saline lock post exam. If Pt. has a central line or IVAD, may access for administration according to line specific nursing protocol. Once exam is complete flush line and de-access according to line specific nursing protocol in the CT contrast administration guidelines link. 1 Each 0 03/11/2024 03/12/2024 Active losartan potassium 50 mg oral tablet (20 sources) Angiotensin 2 Receptor Milton Start: 11-13-2024 End: 11-13-2024 take 1 tablet by mouth once daily Start: 02-14-2022 losartan (COZA AR) 25 mg tablet Indications: Essential hypertension [The details of the medication are not available because there are pending changes by a home health clinician.] 45 tablet 3 02/14/2022 Active Start: 06-05-2017 End: 11-13-2024 Losartan 25 MG tablet Discon tinued 12.5 mg PO DAILY June 20, 2017 12:41am February 26, 2018 11:10am Start: 06-05-2017 End: 11-13-2024 take 1 tablet by mouth once daily Losartan 25 mg tablet Discontinued 25 mg PO DAILY 90 3 April 22, 2024 9:22am November 13, 2024 3:52pm Start: 06-05-2017 End: 11-13-2024 take 0.5 tablet by mouth once daily losartan (COZAAR) 25 mg tablet Indications: Essential hypertension Take 0.5 tablets by mouth once daily. 45 tablet 3 02/14/2022 Active Start: 06-05-2017 End: 11-13-2024 Comment on above: Take 0.5 tablets by mouth once daily. 24 hr metoprolol succinate 25 mg extended release oral tablet (20 sources) beta-Adrenergic Milton Start: 06-27-2025 take 1 tablet by mouth once daily Start: 03-21-2025 take 0.5 tablet by m outh once daily metoprolol tartrate, short acting, (LOPRESSOR) 25 mg tablet Take 25 mg by mouth once daily. 1/2 tab 03/21/2025 Active Start: 02-25-2021 End: 08-24-2021 Metoprolol Tartrate 25 mg ta blet Discontinued 12.5 mg PO TWICE A DAY August 24, 2021 3:26pm August 24, 2021 4:11pm Start: 02-25-2021 End: 06-27-2025 Metoprolol Tartrate 25 mg ta blet Discontinued 12.5 mg PO DAILY 45 January 02, 2025 10:34am June 27, 2025 9:41am Start: 02-25-2021 End: 08-24-2021 Metoprolol Tartrate 25 mg ta blet Discontinued NMA PO February 25, 2021 12:00am August 24, 2021 3:34pm Start: 02-25-2021 End: 01-02-2025 Start: 02-25-2021 End: 11-28-2023 take 0.5 tablet by mouth once daily metoprolol tartrate, short acting, (LOPRESSOR) 25 mg tablet Take 0.5 tablets by mouth once daily. 02/14/2022 11/28/2023 Discontinued Start: 02-25-2021 End: 04-17-2023 take 12.5 mg by mouth once daily Metoprolol Tartrate Discontinued 12.5 MG PO DAILY 45 June 02, 2022 10:20am April 17, 2023 8:57am Start: 01-26-2021 End: 02-14-2022 take 0.5 tablet by mouth twice daily metoprolol tartrate, short acting, (LOPRESSOR) 25 mg tablet Take 0.5 tablets by mouth twice daily. 30 tablet 11 01/26/2021 02/14/2022 Discontinued Start: 10-11-2019 End: 08-31-2020 take 1 tablet by mouth once daily Metoprolol Succinate 25 mg tablet extended release 24 hr Discontinued 25 mg PO DAILY October 11, 2019 1:00am August 31, 2020 9:17am Start: 10-11-2019 End: 01-28-2021 take 2 tablets by mouth once daily Metoprolol Succinate 25 mg tablet extended release 24 hr Discontinued 12.5 mg PO DAILY August 31, 2020 9:16am January 28, 2021 6:58am Start: 10-11-2019 End: 01-28-2021 End: 03-21-2025 take 1 tablet by mouth twice daily at mealtime metoprolol tartrate, short acting, (LOPRESSOR) 25 mg tablet 1 tablet with food Orally Twice a day for 30 day(s) 03/21/2025 Discontinued (Other) Comment on above: Take 0.5 tablets by mouth twice daily. Take 0.5 tablets by mouth once daily. neomycin sulfate 500 mg oral tablet (19 sources) Aminoglycoside Antibacterial Start: 03-28-2025 neomycin 500 mg tablet Indications: Diverticulitis Take 2 tablets by mouth as directed. Take 2 tablet at 6pm, 7pm, and 11pm the evening prior to surgery. 6 tablet 03/28/2025 Active nystatin 100 unt/mg topical powder (20 sources) Polyene Antifungal Start: 06-24-2025 Start: 05-01-2023 End: 01-23-2025 Nystatin (Nystop) 100,000 un it/gram powder Discontinued 1 NMA TOPICAL TWICE A DAY as needed January 05, 2024 9:19am January 23, 2025 6:55am Start: 05-01-2023 End: 01-23-2025 Start: 05-01-2023 Nystatin (Nyst op) 100,000 unit/gram powder Active 1 APPLIC TOPICAL TWICE A DAY April 30, 2023 11:00pm Start: 07-06-2021 End: 04-17-2023 Nystatin (Nystop) 100,000 un it/gram powder Discontinued 1 NMA TOPICAL TWICE A DAY 45 July 06, 2021 12:00am April 17, 2023 9:11am Start: 07-06-2021 End: 04-17-2023 Start: 07-06-2021 End: 04-17-2023 Nystatin (Nystop) 100,000 un it/gram powder Discontinued 1 APPLIC TOPICAL TWICE A DAY July 05, 2021 11:00pm April 17, 2023 8:11am omeprazole 40 mg delayed release oral capsule (20 sources) Proton Pump Inhibitor Start: 04-24-2025 End: 05-24-2025 take 1 capsule by mouth twice daily omeprazole (PRILOSEC) 40 mg capsule Take 1 capsule by mouth two times a day. 60 capsule 04/24/2025 05/24/2025 Active Start: 06-01-2017 End: 01-23-2025 take 1 capsule by mouth once daily Omeprazole 40 mg capsule,delayed release(DR/EC) Discontinued 40 mg PO DAILY 90 July 11, 2024 10:07am January 23, 2025 8:03am Comment on above: Take 40 mg by mouth once daily. Take 1 capsule by [facility] once daily. [facility]KE [facility] oxyCODONE hydrochloride 5 mg oral tablet (11 sources) Opioid Agonist Start: End: take 1 tablet by mouth every eight hours as needed for pain oxyCODONE IR (ROXICODONE) 5 mg immediate release tablet Indications: Acute diverticulitis Take 1 tablet by mouth every 8 hours as needed for pain (ONLY FOR SEVERE PAIN) for up to 5 days. 5 tablet 03/20/2025 03/25/2025 Active pantoprazole 40 mg delayed release oral tablet (20 sources) Proton Pump Inhibitor Start: take 1 tablet by mouth twice daily Start: 03-03-2020 End: 03-11-2024 take 1 tablet by mouth once daily Pantoprazole (Protonix) 40 mg tablet,delayed release (DR/EC) Discontinued 40 mg PO DAILY March 04, 2020 12:00am August 24, 2021 3:30pm Comment on above: Take 1 tablet by [facility] once daily. sucralfate 100 mg/ml oral suspension (20 sources) Aluminum Complex Start: 03-13-2025 take 10 mL by mouth twice daily sucralfate (CARAFATE) 100 mg/mL suspension Take 10 mL by mouth two times a day. Take on empty stomach and avoid eating or drinking for 30 mins after taking. 1800 mL 3 03/13/2025 Active Start: 03-13-2025 sucralfate (CA RAFATE) 100 mg/mL suspension [The details of the medication are not available because there are pending changes by a home health clinician.] 1800 mL 3 03/13/2025 Active Start: 12-14-2023 End: 03-20-2025 take 1 tablet by mouth once daily as needed Start: 08-08-2021 End: 03-11-2024 CARAFATE 100 mg/mL suspensio n TAKE 10 ML FOUR TIMES A DAY 3600 mL 3 08/08/2021 03/11/2024 Discontinued Comment on above: TAKE 10 ML FOUR TIME S A DAY levothyroxine sodium 0.2 mg oral tablet (20 sources) l-Thyroxine Start: 12-31-2024 levothyroxine (SYNTHROID) 200 mcg tablet Indications: Postoperative hypothyroidism [The details of the medication are not available because there are pending changes by a home health clinician.] 90 tablet 3 12/31/2024 Active Start: 04-17-2023 End: 01-05-2024 take 1 capsule by mouth once daily Levothyroxine 200 mcg capsule Discontinued 200 ug PO DAILY April 17, 2023 12:00am January 05, 2024 9:18am Start: 01-15-2021 End: 12-30-2024 take 1 tablet by mouth once daily Levothyroxine (Synthroid) 200 mcg tablet Discontinued 200 ug PO DAILY 90 3 May 26, 2021 8:54am April 17, 2023 9:12am Start: 03-04-2020 End: 01-15-2021 take 1 capsule by mouth once daily Levothyroxine 200 mcg capsule Discontinued 200 ug PO DAILY March 04, 2020 12:00am January 15, 2021 3:08pm Start: 01-06-2020 End: 03-04-2020 take 1 tablet by mouth once daily Levothyroxine (Synthroid) 137 mcg tablet Discontinued 137 ug PO DAILY 90 0 January 06, 2020 12:00am March 04, 2020 6:01pm Start: 07-09-2019 End: 01-06-2020 take 1 tablet by mouth once daily Levothyroxine 175 mcg tablet Discontinued 175 ug PO DAILY July 09, 2019 12:00am January 06, 2020 8:32am Start: 07-08-2019 End: 05-30-2022 take 0.5 tablet by mouth once daily SYNTHROID 200 mcg tablet Take 0.5 tablets by mouth once daily. Take along with 75 mcg tablet for a total dose of 175 mcg daily. 0 07/08/2019 05/30/2022 Discontinued Start: 06-20-2017 End: 09-13-2018 take 2 tablets by mouth once daily Levothyroxine 100 mcg tablet Discontinued 200 ug PO DAILY 60 September 12, 2018 3:51pm September 13, 2018 2:18pm Start: 06-20-2017 End: 07-09-2019 take 1 tablet by mouth once daily Levothyroxine 100 mcg tablet Discontinued 200 ug PO DAILY 60 September 13, 2018 2:18pm July 09, 2019 4:33pm takes 100 mcg on Sundays Start: 06-20-2017 End: 07-09-2019 Start: 06-20-2017 End: 09-13-2018 take 200 ug by mouth once daily Levothyroxine Disconti nued 200 MCG PO DAILY 60 September 12, 2018 2:51pm September 13, 2018 1:18pm Start: 06-08-2017 take 1 tablet by jhon th once daily SYNTHROID 175 MCG TABS One tablet by mouth daily LEVOTHYROXINE SODIUM [id number] Betsy Cohn LPN Start: 06-08-2017 take 1 tablet by jhon th once daily SYNTHROID 200 MCG TABS One tablet by mouth daily LEVOTHYROXINE SODIUM [id number] Betsy Cohn LPN Comment on above: Take 0.5 tablets by mouth once daily. Take along with 75 mcg tablet for a total dose of 175 mcg daily. Take one tablet through Monday,and half a pill on Saturdays and none on Sundays. Tirzepatide (2 sources) Start: 06-27-2025 Start: 01-10-2025 End: 04-22-2025 Tirzepatide (Mounjaro) 5 mg/ 0.5 mL pen injector Discontinued mg SC January 10, 2025 12:00am April 22, 2025 8:22am tirzepatide (MOUNJARO) 5 mg/0.5 mL pen injector (17 sources) Start: 04-08-2025 inject 5 mg by subcutaneous injection every week tirzepatide (MOUNJARO) 5 mg/0.5 mL pen injector Indications: Type 2 diabetes mellitus with diabetic polyneuropathy, without long-term current use of insulin (HCC) Inject 5 mg subcutaneously one time a week. 2 mL 5 04/08/2025 Active Start: 12-12-2024 End: 01-17-2025 inject 5 mg by subcutaneous injection every week tirzepatide (MOUNJARO) 5 mg/0.5 mL pen injector Indications: Type 2 diabetes mellitus with diabetic polyneuropathy, without long-term current use of insulin (HCC) Inject 5 mg subcutaneously one time a week. 2 mL 4 12/12/2024 01/17/2025 Discontinued Start: 12-12-2024 inject 5 mg by subcu taneous injection every week tirzepatide (MOUNJARO) 5 mg/0.5 mL pen injector Indications: Type 2 diabetes mellitus with diabetic polyneuropathy, without long-term current use of insulin (HCC) Inject 5 mg subcutaneously one time a week. 2 mL 4 12/12/2024 Active traMADol hydrochloride 50 mg oral tablet (20 sources) Opioid Agonist Start: 08-23-2018 take 1 tablet by mouth every six hours as needed for pain Comment on above: Take 1 tablet by jhon th as directed. (20 sources) Start: 01-24-2025 Start: 01-10-2025 Start: 11-19-2024 End: 11-24-2024 Start: 11-13-2024 End: 01-10-2025 Start: 11-13-2024 Start: 12-08-2021 Start: 12-08-2021 Start: 08-31-2020 Start: 08-13-2020 Start: 08-13-2020 End: 01-26-2022 Start: 04-30-2020 End: 01-26-2022 Start: 04-30-2020 End: 12-08-2021 Start: 03-12-2020 End: 04-30-2020 Start: 03-11-2020 End: 03-12-2020 Start: 01-06-2020 Start: 01-06-2020 End: 03-11-2020 Start: 01-06-2020 End: 04-30-2020 Start: 10-29-2018 End: 03-04-2019 Start: 02-26-2018 End: 08-23-2018 Completed/Discontinued Medications Medication Drug Class(es) Dates Sig (Normalized) Sig (Original) 8 hr acetaminophen 650 mg extended release oral tablet (20 sources) Start: 02-17-2009 End: 03-21-2025 acetaminophen(TYLEN OL ARTHRITIS 650 MG TAB) Take by mouth. 0 02/17/2009 03/21/2025 Discontinued (Discontinued by Patient) Start: 02-17-2009 acetaminophen( TYLENOL ARTHRITIS 650 MG TAB) Take 2 tablets daily. 0 02/17/2009 Active Comment on above: Take 2 tablets daily . acetaminophen 325 mg / HYDROcodone bitartrate 5 mg oral tablet (20 sources) Opioid Agonist Start: 10-29-2018 End: 11-03-2018 Hydrocodone-Acetaminophe n 1 TABLET tablet Discontinued 1 {tbl} PO EVERY 6 HOURS NEEDED as needed for Pain 20 5 0 October 29, 2018 1:00am November 02, 2018 1:00am November 03, 2018 1:09am Ureteric colic Unspecified renal colic Start: 10-29-2018 End: 11-03-2018 Start: 10-29-2018 End: 11-03-2018 take 1 tablet by mouth every six hours as needed Hydrocodone-Acetaminophen Discontinued 1 TABLET PO EVERY 6 HOURS NEEDED 20 5 October 29, 2018 12:00am November 03, 2018 12:09am [id number] 200 actuat albuterol 0.09 mg/actuat metered dose inhaler (20 sources) beta2-Adrenergic Agonist Start: 01-26-2022 take 1 puff(s) by inhalation every four hours Albuterol Sulfate (Proair Hfa) 90 mcg/actuation HFA aerosol inhaler Active 2 PUFF INHALATION Q4H 8.5 January 26, 2022 8:05pm Start: 11-29-2019 End: 11-19-2024 Albuterol Sulfate (Proair Hf a) 90 mcg/actuation HFA aerosol inhaler Discontinued 2 NMA INHALATION Q4H as needed for shortness of breath or wheezing 8.5 4 February 01, 2023 7:55pm November 19, 2024 8:40pm Start: 11-29-2019 End: 11-19-2024 Start: 11-29-2019 End: 02-01-2023 take 1 puff(s) by inhalation every four hours Albuterol Sulfate (Proair Hfa) 90 mcg/actuation HFA aerosol inhaler Discontinued 2 PUFF INHALATION Q4H 8.5 January 26, 2022 7:05pm February 01, 2023 6:55pm Start: 08-17-2017 End: 04-30-2018 Albuterol Sulfate (Ventolin Hfa) 90 mcg/actuation HFA aerosol inhaler Discontinued 2 NMA INHALATION Q4H as needed for shortness of breath or wheezing August 17, 2017 1:00am April 30, 2018 7:17pm Start: 08-17-2017 End: 04-30-2018 Start: 08-17-2017 End: 04-30-2018 take 1 puff(s) by inhalation every four hours Albuterol Sulfate (Ventolin Hfa) 90 mcg/actuation HFA aerosol inhaler Discontinued 2 PUFF INHALATION Q4H August 17, 2017 12:00am April 30, 2018 6:17pm Start: 07-17-2017 take 2 puff(s) by in halation every four hours as needed for wheezing albuterol HFA (PROVENTIL HFA, VENTOLIN HFA) 90 mcg/actuation inhaler Inhale 2 puffs as instructed every 4 hours as needed for wheezing/shortness of breath. 07/17/2017 Active Start: 07-17-2017 albuterol HFA (PROVENTIL HFA, VENTOLIN HFA) 90 mcg/actuation inhaler as needed for wheezing/shortness of breath. 07/17/2017 Active Comment on above: as needed. apixaban 5 mg oral tablet (20 sources) Factor Xa Inhibitor Start: 9 End: 5 take 1 tablet by mouth twice daily Apixaban (Eliquis) 5 mg tablet Discontinued 5 mg PO TWICE A DAY 180 3 April 22, 2024 9:22am April 28, 2025 8:20am Comment on above: Take 1 tablet by jhon th twice daily. aspirin 81 mg chewable tablet (20 sources) Nonsteroidal Anti-inflammatory Drug Start: 7 take 1 tablet by mouth once daily ASPIRIN 81 MG TBEC One tablet by mouth daily ASPIRIN [id number] Betsy King Lalit YEE Start: 06-05-2017 End: 03-04-2019 take 1 tablet by mouth once daily Aspirin 81 mg tablet,chewable Discontinued 81 mg PO DAILY@0800 90 February 26, 2018 11:08am March 04, 2019 4:34pm Start: 06-05-2017 End: 11-04-2021 take [id number] tablet by mouth once daily Aspirin 81 mg tablet,chewable Discontinued 81 mg PO DAILY@0800 90 March 04, 2019 4:34pm November 04, 2021 11:33am On Hold: 08/24- ?stomach issues atorvastatin 20 mg oral tablet (20 sources) HMG-CoA Reductase Inhibitor Start: 02-22-2022 End: 11-28-2023 take 1 tablet by mouth once daily Atorvastatin 20 mg tablet Discontinued 20 mg PO DAILY June 02, 2022 12:00am 2022 10:05am Start: 06-05-2017 End: 01-19-2021 take 1 tablet by mouth at bedtime Atorvastatin 20 mg tablet Discontinued 20 mg PO AT BEDTIME 90 3 July 19, 2018 5:41pm March 04, 2019 4:34pm Comment on above: Take 1 tablet by jhon th once daily. azithromycin 250 mg oral tablet (20 sources) Macrolide Antimicrobial Start: 11-20-19 End: 11-25-19 take 2 tablets by mouth once daily, then take 1 tablet by mouth once daily at mealtime Azithromycin 250 mg tablet Discontinued 250 mg PO daily 6 5 0 November 19, 2024 12:00am November 23, 2024 12:00am November 24, 2024 12:14am 2 po qd for 1 day then 1 po qd for 4 days with food or after eating Start: 06-20-2024 End: 09-02-2024 take 2-5 tablets by mouth once daily Azithromycin (Zithromax Z-Chris) 250 mg tablet Discontinued 0 PO .COMPLEX 6 0 June 20, 2024 12:02pm September 02, 2024 10:42am take 500 mg today (day 1), then 250 mg for 4 days (days 2-5) PO Start: 06-20-2024 End: 09-02-2024 Start: 07-10-2019 End: 08-05-2019 take 2-5 tablets by mouth once daily Azithromycin (Zithromax Z-Chris) 250 mg tablet Discontinued 0 PO .COMPLEX 6 0 July 10, 2019 12:00am August 05, 2019 4:30pm take 500 mg today (day 1), then 250 mg for 4 days (days 2-5) PO Start: 07-10-2019 End: 08-05-2019 Start: 12-10-2018 End: 12-15-2018 take 2 tablets by mouth once daily, then take 1 tablet by mouth once daily at mealtime Azithromycin 250 mg tablet Discontinued 250 mg PO daily 6 5 0 December 10, 2018 12:00am December 14, 2018 12:00am December 15, 2018 12:11am 2 po qd for 1 day then 1 po qd for 4 days with food or after eating benzonatate 200 mg oral capsule (20 sources) Non-narcotic Antitussive Start: 01-25-2022 End: 06-16-2022 take 1 capsule by mouth three times daily as needed for cough Benzonatate 200 mg capsule Discontinued 200 mg PO THREE TIMES A DAY as needed for cough 60 1 January 25, 2022 12:00am June 16, 2022 4:46pm carvedilol 12.5 mg oral tablet (20 sources) alpha-Adrenergic Milton, beta-Adrenergic Milton Start: 06-08-2017 End: 10-11-2019 take 1 tablet by mouth twice daily Carvedilol 12.5 mg tablet Discontinued 12.5 mg PO TWICE A DAY 180 3 July 09, 2019 4:32pm October 11, 2019 9:03pm Start: 06-05-2017 End: 06-20-2017 take 1 tablet by mouth twice daily Carvedilol 3.125 MG tablet Discontinued 3.125 mg PO TWICE A DAY 120 0 June 05, 2017 12:00am June 20, 2017 12:41am Start: 06-05-2017 End: 10-02-2017 take 2 tablets by mouth twice daily Carvedilol 3.125 MG tablet Discontinued 6.25 mg PO TWICE A DAY June 20, 2017 12:41am October 02, 2017 12:47pm Start: 06-05-2017 End: 10-02-2017 take 6.25 mg by mouth twice daily Carvedilol Discontinued 6.25 MG PO TWICE A DAY June 19, 2017 11:41pm October 02, 2017 11:47am cefdinir 300 mg oral capsule (20 sources) Cephalosporin Antibacterial Start: 02-20-2025 End: 06-27-2025 take 1 capsule by mouth every twelve hours Cefdinir 300 mg capsule Discontinued 300 mg PO Q12H 20 February 20, 2025 12:00am June 27, 2025 9:08am Start: 12-04-2024 End: 06-20-2025 take 1 capsule by mouth twice daily Cefdinir 300 mg capsule Discontinued 300 mg PO TWICE A DAY December 04, 2024 3:29pm June 20, 2025 1:44pm Start: 06-10-2024 End: 09-02-2024 take 1 capsule by mouth twice daily Cefdinir 300 mg capsule Discontinued 300 mg PO TWICE A DAY June 10, 2024 4:00pm September 02, 2024 10:42am Start: 11-27-2023 End: 01-05-2024 take 1 capsule by mouth twice daily Cefdinir 300 mg capsule Discontinued 300 mg PO TWICE A DAY November 27, 2023 12:00am January 05, 2024 9:16am Start: 01-23-2023 End: 03-27-2023 take 1 capsule by mouth twice daily Cefdinir 300 mg capsule Discontinued 300 mg PO TWICE A DAY January 23, 2023 6:14pm March 27, 2023 7:46am Start: 06-16-2022 End: 07-28-2022 take 1 capsule by mouth twice daily Cefdinir 300 mg capsule Discontinued 300 mg PO TWICE A DAY June 16, 2022 4:50pm July 28, 2022 5:03pm Start: 09-29-2021 End: 06-02-2022 take 1 capsule by mouth twice daily Cefdinir 300 mg capsule Discontinued 300 mg PO TWICE A DAY January 26, 2022 8:00pm June 02, 2022 11:13am cefTRIAXone 2000 mg injection (20 sources) Cephalosporin Antibacterial Start: 03-21-2025 End: 03-27-2025 cefTRIAXone sodium (ROCEPHIN) 2 gram solr [The details of the medication are not available because there are pending changes by a home health clinician.] 12 g 03/21/2025 03/27/2025 Start: 03-21-2025 End: 03-27-2025 inject 2 g intravenously once daily cefTRIAXone sodium (ROCEPHIN) 2 gram solr Inject 2 g intravenously once daily for 6 days. 12 g 03/21/2025 03/27/2025 Active Start: 03-21-2025 End: 03-27-2025 inject 100 mL intravenously every twenty-four hours cefTRIAXone (ROCEPHIN) 2 g in D5W 100 mL Vial-Bag Inject 100 mL intravenously every 24 hours for 6 days. 03/21/2025 03/27/2025 cephalexin 500 mg oral capsule (20 sources) Cephalosporin Antibacterial Start: 02-05-2021 End: 02-15-2021 take 1 capsule by mouth twice daily Cephalexin 500 mg capsule Discontinued 500 mg PO TWICE A DAY February 05, 2021 12:00am February 14, 2021 12:00am February 15, 2021 12:01am Start: 10-14-2019 End: 10-24-2019 take 1 capsule by mouth twice daily Cephalexin 500 mg capsule Discontinued 500 mg PO TWICE A DAY 20 10 October 14, 2019 1:00am October 23, 2019 1:00am October 24, 2019 1:07am cholecalciferol 1.25 mg oral capsule (16 sources) Vitamin D Start: 08-28-2023 End: 11-13-2024 take 1 capsule by mouth every week Cholecalciferol (Vitamin D3) 1,250 mcg (50,000 unit) capsule Discontinued 1250 ug PO EVERY WEEK August 28, 2023 1:00am November 13, 2024 11:30am Start: 06-08-2017 take 1 tablet by jhon th two times weekly VITAMIN D3 20006 UNIT TABS 1 tab by mouth two times weekly CHOLECALCIFEROL [id number] Betsy Christine Cohn MRI SUPERVISOR Start: 06-08-2017 take 1 tablet by jhon th every week VITAMIN D3 52881 UNIT TABS 1 tab by mouth weekly CHOLECALCIFEROL [id number] Betsy Christine Cohn MRI SUPERVISOR ciprofloxacin 500 mg oral tablet (20 sources) Quinolone Antimicrobial Start: 11-26-2019 End: 03-04-2020 take 1 tablet by mouth twice daily Ciprofloxacin Hcl 500 mg tablet Discontinued 500 mg PO TWICE A DAY November 26, 2019 12:00am March 04, 2020 5:58pm Start: 06-14-2019 End: 06-27-2019 take 1 tablet by mouth twice daily Ciprofloxacin Hcl 500 mg tablet Discontinued 500 mg PO TWICE A DAY 20 June 14, 2019 12:00am June 27, 2019 5:35pm clarithromycin 500 mg oral tablet (20 sources) Macrolide Antimicrobial Start: 10-11-2019 End: 11-26-2019 take 1 tablet by mouth twice daily Clarithromycin 500 mg tablet Discontinued 500 mg PO TWICE A DAY October 11, 2019 1:00am November 26, 2019 8:22pm dapagliflozin 10 mg oral tablet (20 sources) Sodium-Glucose Cotransporter 2 Inhibitor Start: 03-04-2020 End: 05-06-2020 take 1 tablet by mouth once daily Dapagliflozin Propanediol (Farxiga) 10 mg tablet Discontinued 10 mg PO DAILY 09 09March 04, 2020 12:00am May 06, 2020 6:25pm dexamethasone 6 mg oral tablet (20 sources) Corticosteroid Start: 09-29-2021 End: 10-26-2021 take 1 tablet by mouth three times daily Dexamethasone (Decadron) 6 mg tablet Discontinued 6 mg PO THREE TIMES A DAY 30 0 September 29, 2021 1:00am October 26, 2021 9:31am dicyclomine hydrochloride 10 mg oral capsule (7 sources) Anticholinergic Start: 01-23-2025 End: 06-27-2025 take 1 capsule by mouth twice daily as needed for pain Dicyclomine 10 mg capsule Discontinued 10 mg PO TWICE A DAY as needed for abdominal pain 60 0 January 23, 2025 12:00am June 27, 2025 9:08am doxycycline hyclate 100 mg oral tablet (20 sources) Tetracycline-class Drug Start: 08-31-2020 End: 09-28-2020 take 1 tablet by mouth twice daily Doxycycline Hyclate 100 mg tablet Discontinued 100 mg PO TWICE A DAY 14 August 31, 2020 1:00am September 28, 2020 9:16am Start: 05-06-2020 End: 07-07-2020 take 1 capsule by mouth twice daily Doxycycline Hyclate 100 mg capsule Discontinued 100 mg PO TWICE A DAY 20 May 06, 2020 12:00am July 07, 2020 1:54pm 0.5 ml dulaglutide 3 mg/ml auto-injector (4 sources) GLP-1 Receptor Agonist Start: 12-25-2023 End: 12-14-2023 inject 1.5 mg by subcutaneous injection every week dulaglutide (TRULICITY) 1.5 mg/0.5 mL pen injector Indications: Type 2 diabetes mellitus with diabetic polyneuropathy, without long-term current use of insulin (HCC) Inject 1.5 mg subcutaneously one time a week. Patient should start on December 25, 2023. 2 mL 5 12/25/2023 12/14/2023 Discontinued Start: 11-28-2023 End: 12-14-2023 inject 0.75 mg by subcutaneous injection every week, then inject 1.5 mg by subcutaneous injection every week dulaglutide (TRULICITY) 0.75 mg/0.5 mL pen injector Indications: Type 2 diabetes mellitus with diabetic polyneuropathy, without long-term current use of insulin (HCC) Inject 0.75 mg subcutaneously one time a week. X 4 wk then increase to 1.5 mg weekly 2 mL 0 11/28/2023 12/14/2023 Discontinued Start: 05-27-2022 End: 06-26-2022 inject 0.75 mg by subcutaneous injection every week dulaglutide (TRULICITY) 0.75 mg/0.5 mL pen injector Inject 0.75 mg subcutaneously one time a week. 2 mL 0 05/27/2022 05/27/2022 Discontinued Comment on above: Inject 0.75 mg subcu taneously one time a week. Inject 0.75 mg subcu taneously one time a week. X 4 wk then increase to 1.5 mg weekly Inject 1.5 mg subcut aneously one time a week. Patient should start on December 25, 2023. ergocalciferol 1.25 mg oral capsule (20 sources) Provitamin D2 Compound Start: 11-13-2024 End: 01-23-2025 Ergocalciferol (Vitamin D2) 1,250 mcg (50,000 unit) capsule Discontinued 1250 ug PO EVERY WEEK November 13, 2024 1:00am January 23, 2025 6:55am Start: 03-04-2019 End: 11-28-2023 take 1 capsule by mouth two times weekly Ergocalciferol (Vitamin D2) 50,000 unit capsule Discontinued 74564 U PO .COMPLEX March 04, 2019 4:16pm April 17, 2023 9:10am 50,000 unit PO twice weekly; 2 a week Start: 08-23-2018 End: 03-04-2019 take 2 capsules by mouth every week Ergocalciferol (Vitamin D2) 50,000 unit capsule Discontinued 13570 U PO EVERY WEEK August 23, 2018 10:31am March 04, 2019 4:18pm 2 a week Start: 06-01-2017 End: 08-23-2018 Ergocalciferol (Vitamin D2) 50,000 UNIT capsule Discontinued 15932 U PO EVERY WEEK June 01, 2017 12:00am August 23, 2018 10:39am Start: 06-01-2017 End: 04-17-2023 Comment on above: Take 50,000 Units by mouth two times a week. & Monday. escitalopram 5 mg oral tablet (20 sources) Serotonin Reuptake Inhibitor Start: 019 End: take 1 tablet by mouth once daily Escitalopram Oxalate 5 mg tablet Discontinued 5 mg PO DAILY 30 June 27, 2019 12:00am July 10, 2019 10:26am 0.85 ml exenatide 2.35 mg/ml auto-injector (14 sources) GLP-1 Receptor Agonist Start: 024 End: inject 2 mg by subcutaneous injection every week exenatide microspheres (VELASQUEZ SINGH) 2 mg/0.85 mL injection Inject 2 mg subcutaneously one time a week. 3.4 mL 5 12/19/2023 04/17/2024 Discontinued Comment on above: Inject 2 mg subcutan eously one time a week. 1 ml fentaNYL 0.05 mg/ml injection (1 source) Opioid Agonist Start: 023 End: 023 INTRAVENOUS, X (OR/PROCEDURE) PRN, Starting on Mon11/01/22 at 1248, Until Mon11/01/22 at 1249, Intraprocedure flecainide acetate 100 mg oral tablet (20 sources) Antiarrhythmic Start: 020 End: take 1 tablet by mouth every twelve hours Flecainide 100 mg tablet Discontinued 100 mg PO Q12H 180 3 December 11, 2023 12:09pm April 22, 2024 9:23am Comment on above: Take 1 tablet by jhon th every 12 hours. fluconazole 150 mg oral tablet (20 sources) Azole Antifungal Start: 021 End: Fluconazole 150 mg tablet Discontinued 150 mg PO Every 3 Days 2 0 February 05, 2021 12:00am March 11, 2021 11:16am Start: 04-07-2020 End: 05-06-2020 Fluconazole 150 mg tablet Discontinued 150 mg PO Every 3 Days 2 0 1 April 07, 2020 12:00am May 06, 2020 6:25pm may repeat second dose 72 hrs after first dose if symptoms persist Start: 11-26-2019 End: 03-04-2020 Fluconazole 150 mg tablet Discontinued 150 mg PO Every 3 Days 2 0 2 November 26, 2019 12:00am March 04, 2020 5:59pm may repeat second dose 72 hrs after first dose if symptoms persist Start: 06-14-2019 End: 07-10-2019 take 1 tablet by mouth once daily Fluconazole 150 mg tablet Discontinued 150 mg PO DAILY 1 0 2 June 14, 2019 12:00am July 10, 2019 10:26am administer on day 1 of therapy Start: 06-14-2019 End: 07-10-2019 Start: 10-19-2018 End: 10-20-2018 Fluconazole 150 mg tablet Discontinued 150 mg PO Every 3 Days 2 0 2 October 19, 2018 1:00am October 19, 2018 1:00am October 20, 2018 1:08am may repeat second dose 72 hrs after first dose if symptoms persist Start: 08-13-2018 End: 08-14-2018 Fluconazole 150 mg tablet Discontinued 150 mg PO Every 3 Days 2 0 1 August 13, 2018 1:00am August 13, 2018 1:00am August 14, 2018 1:07am may repeat second dose 72 hrs after first dose if symptoms persist Start: 07-19-2018 End: 07-20-2018 Fluconazole 150 mg tablet Discontinued 150 mg PO Every 3 Days 2 0 2 July 19, 2018 1:00am July 19, 2018 1:00am July 20, 2018 1:13am may repeat second dose 72 hrs after first dose if symptoms persist Fluticasone Furoate (20 sources) Corticosteroid Start: 01-10-2025 End: 01-24-2025 take 200 ug by inhalation every twenty-four hours Fluticasone Furoate (Arnuity Ellipta) 200 mcg/actuation blister with device Discontinued 1 NMA INHALATION Q24H 30 5 January 10, 2025 12:00am January 24, 2025 11:32am Cough Cough, unspecified Start: 01-10-2025 End: 01-24-2025 Start: 01-10-2025 Start: 11-29-2019 End: 11-19-2024 take 50 ug nasal route once daily Fluticasone Propionate (Allergy Relief (Fluticasone)) 50 mcg/actuation spray,suspension Discontinued 2 NMA INTRANASAL DAILY 18.2 August 28, 2023 2:19pm November 19, 2024 8:40pm administer into each nostril Start: 11-29-2019 End: 08-28-2023 take 1 spray(s) nasal route once daily Fluticasone Propionate (Allergy Relief (Fluticasone)) 50 mcg/actuation spray,suspension Discontinued 2 SPRAY INTRANASAL DAILY 18.2 February 05, 2021 2:27pm January 25, 2022 3:00pm administer into each nostril Start: 06-06-2018 End: 07-10-2019 Fluticasone Propionate 50 mcg/actuation spray,suspension Discontinued 2 NMA INTRANASAL DAILY as needed for Congestion August 23, 2018 10:31am July 10, 2019 10:26am Start: 06-06-2018 End: 07-10-2019 Fluticasone Propionate Disco ntinued 2 SPRAY INTRANASAL DAILY August 23, 2018 9:31am July 10, 2019 9:26am folic acid 1 mg oral tablet (20 sources) Start: 06-01-2017 End: 04-30-2018 take 1 tablet by mouth once daily Folic Acid 1 MG tablet Discontinued 1 mg PO DAILY@0800 June 01, 2017 12:00am April 30, 2018 7:18pm furosemide 40 mg oral tablet (20 sources) Loop Diuretic Start: 11-13-2024 End: 06-27-2025 take 1 tablet by mouth once daily Furosemide 40 mg tablet Discontinued 40 mg PO DAILY 90 November 13, 2024 12:57pm June 27, 2025 9:40am edema Start: 08-24-2021 End: 03-20-2025 take 2 tablets by mouth every other day Furosemide 20 mg tablet Discontinued 40 mg PO every other day 90 3 November 04, 2021 10:20am April 17, 2023 9:12am edema Start: 08-24-2021 End: 11-13-2024 Start: 08-24-2021 End: 11-04-2021 take 40 mg by mouth once daily Furosemide Discontinued 40 MG PO DAILY 180 August 24, 2021 3:24pm November 04, 2021 9:20am Start: 07-20-2021 End: 08-24-2021 take 1 tablet by mouth twice daily Furosemide 40 mg tablet Discontinued 40 mg PO TWICE A DAY July 20, 2021 6:01pm August 24, 2021 3:34pm edema x 3 days Start: 03-11-2021 End: 11-13-2024 take 2 tablets by mouth once daily Furosemide 20 mg tablet Discontinued 40 mg PO DAILY 45 November 13, 2024 12:55pm November 13, 2024 12:57pm edema Start: 08-31-2020 End: 07-20-2021 Furosemide 40 mg tablet Disc ontinued 20 mg PO DAILY August 31, 2020 9:16am July 20, 2021 5:59pm edema Start: 08-31-2020 End: 07-20-2021 take 20 mg by mouth once daily Furosemide Discontinued 20 MG PO DAILY August 31, 2020 8:16am July 20, 2021 4:59pm Start: 07-10-2019 End: 03-04-2020 Furosemide 40 mg tablet Disc ontinued 20 mg PO DAILY July 10, 2019 10:24am March 04, 2020 6:04pm edema Start: 07-10-2019 End: 03-04-2020 take 20 mg by mouth once daily Furosemide Discontinued 20 MG PO DAILY July 10, 2019 9:24am March 04, 2020 5:04pm Start: 06-05-2017 End: 08-24-2021 take 1 tablet by mouth once daily Furosemide 40 mg tablet Discontinued 40 mg PO DAILY August 24, 2021 3:27pm August 24, 2021 4:25pm edema Comment on above: Take 2 tablets by mo uth once daily. Take 2 tablets by mo uth every other day. glipiZIDE er 2.5 mg 24 hr extended release oral tablet (20 sources) Sulfonylurea Start: End: take 1 tablet by mouth once daily Glipizide 2.5 mg tablet extended release 24hr Discontinued 2.5 mg PO daily April 22, 2025 12:00am June 27, 2025 9:09am Start: 12-14-2023 End: 12-15-2023 take 1 tablet by mouth once daily glipiZIDE (GLUCOTROL XL) 5 mg 24 hr tablet Take 1 tablet by mouth once daily. 90 tablet 1 12/14/2023 12/15/2023 Discontinued Start: 05-18-2023 End: 01-05-2024 take 1 tablet by mouth once daily Glipizide 5 mg tablet Discontinued 5 mg PO DAILY May 18, 2023 12:00am January 05, 2024 9:19am Start: 05-18-2023 End: 11-13-2024 take 2.5 mg by mouth twice daily Glipizide 5 mg tablet Discontinued 2.5 mg PO TWICE A DAY January 05, 2024 9:17am November 13, 2024 11:28am Start: 05-18-2023 End: 01-17-2025 Start: 05-27-2022 End: 08-01-2023 take 1 tablet by mouth once daily Glipizide 5 mg tablet extended release 24hr Discontinued 5 mg PO DAILY June 02, 2022 12:00am September 16, 2022 12:18pm Comment on above: Take 1 tablet by jhon th once daily. take 1 tablet by jhon th once daily Take 0.5 tablets (2. 5 mg) by mouth two times a day before meals. 4 ml golimumab 12.5 mg/ml injection (20 sources) Tumor Necrosis Factor Milton Start: 08-24-2021 End: 04-22-2025 Golimumab (Simponi Aria) 12.5 mg/mL solution Discontinued 0 .ROUTE .COMPLEX August 24, 2021 1:00am April 22, 2025 8:23am 2 mg/kg IV every 8 weeks; Start: 08-24-2021 golimumab (SIMPO NI ARIA INTRAVENOUS) Inject intravenously every 8 weeks. 2mg/kg (242mg) Active golimumab (SIMPO NI ARIA INTRAVENOUS) Inject intravenously every 8 weeks. 2mg/kg (242mg) 0 Active Comment on above: Inject intravenously every 8 weeks. 2mg/kg (242mg) guaiFENesin 400 mg oral tablet (20 sources) Start: 2 End: 2 take 1 tablet by mouth three times daily as needed for cough Guaifenesin 400 mg tablet Discontinued 400 mg PO THREE TIMES A DAY as needed for congestion, cough June 16, 2022 4:48pm July 26, 2022 12:26pm 2 ml sodium hyaluronate 10 mg/ml prefilled syringe (10 sources) Start: End: sodium hyaluronate 20 mg injection (EUFLEXXA) Start: 09-10-2024 End: 09-10-2024 20 mg, Injection - FOR ORTHO USE ONLY, ONCE, 1 dose, Starting on Mon09/10/24 at 0851, Until Mon09/10/24 at 0851 Start: 09-03-2024 End: 09-03-2024 sodium hyaluronate 20 mg inj ection (EUFLEXXA) Start: 09-03-2024 End: 09-03-2024 20 mg, Injection - FOR ORTHO USE ONLY, ONCE, 1 dose, Starting on Mon09/03/24 at 1054, Until Mon09/03/24 at 1054 Start: 08-27-2024 End: 08-27-2024 sodium hyaluronate 20 mg inj ection (EUFLEXXA) Start: 08-27-2024 End: 08-27-2024 20 mg, Injection - FOR ORTHO USE ONLY, ONCE, 1 dose, Starting on Mon08/27/24 at 0902, Until Mon08/27/24 at 0902 inFLIXimab 100 mg injection (20 sources) Tumor Necrosis Factor [place] Start: 03-04-2020 End: 08-13-2020 Infliximab (Remicade) 100 mg recon soln Discontinued 900 mg .Route 0 March 04, 2020 5:59pm August 13, 2020 4:12pm 900 mg; q 6 weeks Start: 06-28-2019 End: 03-04-2020 Infliximab (Remicade) 100 mg recon soln Discontinued mg .Route 0 June 28, 2019 10:47am March 04, 2020 6:04pm q 5 weeks Start: 03-12-2018 End: 06-28-2019 Infliximab (Remicade) 100 mg recon soln Discontinued mg .Route 0 March 12, 2018 12:00am June 28, 2019 10:50am q 6 weeks Start: 03-12-2018 End: 08-13-2020 leucovorin 5 mg oral tablet (20 sources) Folate Analog Start: 08-23-2018 End: 04-07-2020 take 1 tablet by mouth every week Leucovorin Calcium 5 mg tablet Discontinued 5 mg PO EVERY WEEK 12 84 0 August 23, 2018 1:00am April 07, 2020 6:45pm 3 ml liraglutide 6 mg/ml pen injector (1 source) GLP-1 Receptor Agonist Start: 05-25-2022 End: 05-27-2022 inject 0.6 mg by subcutaneous injection once daily liraglutide (VICTOZA) 0.6 mg/ 0.1 ml subcutaneous pen injector Inject 0.6 mg subcutaneously once daily. 3 mL 0 05/25/2022 05/27/2022 Discontinued Comment on above: Inject 0.6 mg subcut aneously once daily. loratadine 10 mg oral tablet (20 sources) Start: 06-10-2024 End: 01-23-2025 take 1 tablet by mouth once daily as needed Loratadine (Claritin) 10 mg tablet Discontinued 10 mg PO daily as needed November 13, 2024 11:29am January 23, 2025 6:55am meclizine hydrochloride 12.5 mg oral tablet (20 sources) Antiemetic Start: 05-06-2020 End: 07-07-2020 take 1 tablet by mouth three times daily as needed for dizziness Meclizine 12.5 mg tablet Discontinued 12.5 mg PO THREE TIMES A DAY as needed for dizziness 45 3 May 06, 2020 12:00am July 07, 2020 1:56pm metFORMIN hydrochloride 1000 mg oral tablet (20 sources) Biguanide Start: 10-26-2021 End: 11-29-2021 take 1 tablet by mouth once daily Metformin 1,000 mg tablet Discontinued 1000 mg PO DAILY 30 October 26, 2021 1:00am November 29, 2021 7:49am Start: 02-25-2021 End: 08-24-2021 take 1 tablet by mouth every twenty-four hours Metformin 500 mg tablet extended release 24 hr Discontinued NMA PO February 25, 2021 12:00am August 24, 2021 3:32pm Start: 02-16-2021 take 1 tablet by jhon th once daily, then take 1 tablet by mouth twice daily metFORMIN ER (GLUCOPHAGE XR) 500 mg 24 hr tablet Take 1 tablet by mouth once daily for 14 days, THEN 1 tablet twice daily. 74 tablet 3 02/16/2021 Active Start: 06-27-2019 End: 07-10-2019 take 1 tablet by mouth twice daily Metformin 500 mg tablet Discontinued 500 mg PO TWICE A DAY 60 June 27, 2019 12:00am July 10, 2019 10:25am Comment on above: Take 1 tablet by jhon th once daily for 14 days, THEN 1 tablet twice daily. methotrexate 2.5 mg oral tablet (20 sources) Folate Analog Metabolic Inhibitor Start: 06-08-2017 TREXALL 15 MG TABS 1 tab by mouth on mondays METHOTREXATE SODIUM [id number] Betsy Cohn LPN Start: 06-01-2017 End: 04-07-2020 Methotrexate Sodium 2.5 mg t ablet Discontinued 20 mg PO ONCE as needed for other August 23, 2018 10:32am March 04, 2020 6:03pm weekly Start: 06-01-2017 End: 04-07-2020 take 4 tablets by mouth every week as needed Methotrexate Sodium 2.5 mg tablet Discontinued 10 mg PO ONCE as needed for other March 04, 2020 6:02pm April 07, 2020 6:46pm weekly Start: 06-01-2017 End: 08-23-2018 Methotrexate Sodium 2.5 mg t ablet Discontinued 15 mg PO ONCE as needed April 30, 2018 7:19pm August 23, 2018 10:39am Start: 06-01-2017 End: 04-07-2020 Start: 06-01-2017 End: 04-07-2020 Start: 06-01-2017 End: 04-07-2020 Start: 06-01-2017 End: 08-23-2018 take 15 mg by mouth once Methotrexate Sodium Disconti nued 15 MG PO ONCE April 30, 2018 6:19pm August 23, 2018 9:39am metoclopramide 10 mg oral tablet (17 sources) Dopamine-2 Receptor Antagonist Start: 08-28-2022 End: 09-16-2022 take 1 tablet by mouth every six hours as needed for nausea and vomiting Metoclopramide Hcl (Reglan) 10 mg tablet Discontinued 10 mg PO EVERY 6 HOURS as needed for nausea and vomiting 14 0 August 28, 2022 1:00am September 16, 2022 12:18pm metroNIDAZOLE 500 mg oral tablet (20 sources) Nitroimidazole Antimicrobial Start: 03-28-2025 End: 04-08-2025 take 1 tablet by mouth three times daily metroNIDAZOLE (FLAGYL) 500 mg tablet Indications: Diverticulitis Take 1 tablet by mouth three times a day. Take 1 tablet at 6pm, 7pm, and 11pm, the evening prior to surgery. 3 tablet 03/28/2025 04/08/2025 Discontinued Start: 03-26-2025 End: 03-26-2025 500 mg, INTRAVENOUS, EVERY 8 HOURS, 1 dose, First dose on Mon03/26/25 at 1600 Start: 03-25-2025 End: 03-25-2025 500 mg, INTRAVENOUS, EVERY 8 HOURS, 1 dose, First dose on Mon03/25/25 at 1400 Start: 03-24-2025 End: 03-24-2025 500 mg, INTRAVENOUS, EVERY 8 HOURS, 1 dose, First dose on Mon03/24/25 at 2200 Start: 03-23-2025 End: 03-31-2025 inject 100 mL intravenously every eight hours metroNIDAZOLE (FLAGYL) 500 mg/100 mL in NaCl (iso-osmotic) Inject 100 mL intravenously every 8 hours for 7 days. 2100 mL 03/24/2025 03/31/2025 Start: 03-20-2025 End: 03-21-2025 take 1 tablet by mouth three times daily metroNIDAZOLE (FLAGYL) 500 mg tablet Take 1 tablet by mouth three times a day for 7 days. 21 tablet 03/20/2025 03/21/2025 Discontinued (Adverse Reaction) Start: 08-28-2022 End: 09-16-2022 take 1 tablet by mouth twice daily Metronidazole 500 m g tablet Discontinued 500 mg PO TWICE A DAY 20 10 0 August 28, 2022 1:00am September 16, 2022 12:19pm Start: 04-30-2018 End: 08-23-2018 take 1 capsule by mouth three times daily Metronidazole 375 mg capsule Discontinued 375 mg PO THREE TIMES A DAY 30 0 April 30, 2018 12:00am August 23, 2018 10:33am 5 ml midazolam 1 mg/ml injection (1 source) Benzodiazepine Start: 11-01-2022 End: 11-01-2022 INTRAVENOUS, X (OR/PROCEDURE) PRN, Starting on Mon11/01/22 at 1248, Until Mon11/01/22 at 1301, Intraprocedure 120 actuat mometasone furoate 0.2 mg/actuat metered dose inhaler (1 source) Corticosteroid Start: 01-24-2025 End: 04-22-2025 Mometasone (Asmanex Hfa) 200 mcg/actuation HFA aerosol inhaler Discontinued 2 NMA INHALATION TWICE A DAY 13 January 24, 2025 12:00am April 22, 2025 8:56am Mometasone (Asmanex Hfa) 200 mcg/actuation HFA aerosol inhaler (3 sources) Start: 01-24-2025 End: 04-22-2025 Mometasone (Asmanex Hfa) 200 mcg/actuation HFA aerosol inhaler Discontinued 2 NMA INHALATION TWICE A DAY 13 5 January 24, 2025 12:00am April 22, 2025 8:56am Start: 01-24-2025 Mometasone (As manex Hfa) 200 mcg/actuation HFA aerosol inhaler Active 2 NMA INHALATION TWICE A DAY 13 5 January 24, 2025 12:00am nitrofurantoin, macrocrystals 100 mg oral capsule (20 sources) Nitrofuran Antibacterial Start: 10-29-2018 End: 03-04-2019 take 1 capsule by mouth four times daily Nitrofurantoin Macrocrystal 100 MG capsule Discontinued 100 mg PO 4 TIMES DAILY October 29, 2018 1:00am March 04, 2019 4:17pm Start: 10-22-2018 End: 10-27-2018 take 1 capsule by mouth every six hours at mealtime Nitrofurantoin Macrocrystal 100 mg capsule Discontinued 100 mg PO EVERY 6 HOURS 20 5 0 October 22, 2018 1:00am October 26, 2018 1:00am October 27, 2018 1:12am must administer with a meal/food Start: 10-22-2018 End: 10-27-2018 Start: 07-21-2018 End: 08-23-2018 take 1 capsule by mouth twice daily at mealtime Nitrofurantoin Macrocrystal 100 mg capsule Discontinued 100 mg PO TWICE A DAY 20 0 July 21, 2018 1:00am August 23, 2018 10:33am must administer with a meal/food Start: 07-21-2018 End: 08-23-2018 nitrofurantoin, macrocrystals 25 mg / nitrofurantoin, monohydrate 75 mg oral capsule (20 sources) Nitrofuran Antibacterial Start: 01-21-2021 End: 01-21-2021 take 1 capsule by mouth every twelve hours at mealtime Nitrofurantoin Monohyd/M-Cryst (Macrobid) 100 mg capsule Discontinued 100 mg PO Q12H 14 7 0 January 21, 2021 12:00am January 27, 2021 12:00am January 21, 2021 12:51pm administer with a meal/food; swallow whole; do not open, crush, dissolve , or chew Downing (10 sources) Start: 10-29-2018 End: 03-04-2019 take 5 mg by mouth every other day Downing Discontinued 5 MG PO EVERY OTHER DAY October 29, 2018 12:58pm March 04, 2019 3:17pm Start: 10-29-2018 End: 03-04-2019 take 5 mg by mouth every other day Downing Discontinued 5 MG PO EVERY OTHER DAY October 29, 2018 1:58pm March 04, 2019 4:17pm Downing 5 mg tablet (5 sources) Start: 10-29-2018 End: 03-04-2019 take 1 tablet by mouth every other day Downing 5 mg tablet Discontinued 5 mg PO EVERY OTHER DAY October 29, 2018 1:58pm March 04, 2019 4:17pm ofloxacin 3 mg/ml otic solution (19 sources) Quinolone Antimicrobial Start: 07-28-2022 End: 04-17-2023 Ofloxacin 0.3 % drops Discontinued 10 NMA OTIC TWICE A DAY 10 2 July 28, 2022 1:00am April 17, 2023 9:12am Start: 07-28-2022 End: 04-17-2023 ondansetron 4 mg disintegrating oral tablet (20 sources) Serotonin-3 Receptor Antagonist Start: 10-29-2018 End: 03-04-2019 take 1 tablet by mouth every eight hours as needed for nausea Ondansetron 4 MG tablet Discontinued 4 mg PO EVERY 8 HOURS NEEDED as needed for Nausea October 29, 2018 1:00am March 04, 2019 4:17pm ONETOUCH DELICA PLUS LANC DEV (20 sources) Start: 08-13-2020 End: 06-15-2023 ONETOUCH DELICA PLUS LANC DEV as directed. 08/13/2020 06/15/2023 Discontinued (Course of therapy completed) Start: 08-13-2020 End: 06-15-2023 ONETOUCH DELICA PLUS LANC DE V as directed. 0 08/13/2020 06/15/2023 Discontinued (Course of therapy completed) Start: 08-13-2020 ONETOUCH DELIC A PLUS LANC DEV as directed. 0 08/13/2020 Active Comment on above: as directed. oseltamivir 75 mg oral capsule (20 sources) Neuraminidase Inhibitor Start: 11-26-19 20 End: 12-01-19 20 take 1 capsule by mouth twice daily Oseltamivir 75 mg capsule Discontinued 75 mg PO TWICE A DAY 10 5 0 November 25 2020 12:00am November 30, 2019 12:00am December 01, 2019 12:07am perflutren lipid microspheres 1.3 mL in NaCl (PF) 0.9% 10 mL injection (DEFINITY) (20 sources) Start: 02-15-20 End: 05-16-20 perflutren lipid microspheres 1.3 mL in NaCl (PF) 0.9% 10 mL injection (DEFINITY) polyethylene glycol 3350 30639 mg powder for oral solution (20 sources) Osmotic Laxative Start: 12-09-19 End: 11-28-19 polyethylene glycol 3350 (MIRALAX) 17 gram/dose powder Take 17 g by mouth once daily as needed for Constipation. 12/08/2020 11/28/2023 Discontinued Comment on above: Take 17 g by mouth o nce daily as needed for Constipation. potassium chloride 10 meq extended release oral capsule (20 sources) Start: 05-03-20 take 1 tablet by mouth once daily potassium chloride (K-TAB) 10 mEq tablet Take 1 tablet by mouth once daily. 90 tablet 3 05/03/2021 Active Start: 07-07-2020 End: 06-27-2025 take 1 capsule by mouth once daily Potassium Chloride 10 mEq capsule, extended release Discontinued 10 meq PO DAILY May 19, 2025 10:17am June 27, 2025 9:41am Start: 03-04-2020 End: 04-10-2020 take 1 tablet by mouth once daily Potassium Chloride 10 mEq tablet extended release Discontinued 10 meq PO DAILY 09 09March 04, 2020 12:00am April 10, 2020 3:03pm Comment on above: Take 1 tablet by jhon th once daily. predniSONE 20 mg oral tablet (20 sources) Start: 11-25-2024 End: 01-10-2025 take 2 tablets by mouth once daily Prednisone 20 mg tablet Discontinued 40 mg PO DAILY November 25, 2024 12:00am January 10, 2025 2:48pm Start: 03-18-2024 End: 04-22-2024 take 2 tablets by mouth once daily Prednisone 20 mg tablet Discontinued 40 mg PO DAILY 10 March 18, 2024 12:00am April 22, 2024 9:20am Start: 06-23-2022 End: 04-17-2023 take 2 tablets by mouth once daily Prednisone 20 mg tablet Discontinued 40 mg PO DAILY 14 0 June 23, 2022 12:00am December 26, 2022 7:46am Start: 06-23-2022 End: 12-26-2022 take 40 mg by mouth once daily Prednisone Discontinued 40 MG PO DAILY June 22, 2022 11:00pm December 26, 2022 6:46am Start: 01-26-2022 End: 06-02-2022 take 2 tablets by mouth once daily Prednisone 20 mg tablet Discontinued 40 mg PO DAILY 20 January 26, 2022 12:00am June 02, 2022 11:14am Start: 01-26-2022 End: 06-02-2022 take 40 mg by mouth once daily Prednisone Discontinued 40 MG PO DAILY January 25, 2022 11:00pm June 02, 2022 10:14am Start: 11-29-2019 End: 01-06-2020 take 2 tablets by mouth once daily Prednisone 20 mg tablet Discontinued 40 mg PO DAILY 20 06 11November 29, 2019 12:00am January 06, 2020 8:26am Start: 11-29-2019 End: 01-06-2020 take 40 mg by mouth once daily Prednisone Discontinued 40 MG PO DAILY 20 November 28, 2019 11:00pm January 06, 2020 7:26am Start: 06-28-2019 End: 08-05-2019 take 1 tablet by mouth once daily Prednisone 5 mg tablet Discontinued 5 mg PO DAILY June 28, 2019 12:00am August 05, 2019 4:31pm Start: 06-28-2019 End: 01-06-2020 take 2.5 mg by mouth once daily Prednisone 5 mg tablet Discontinued 2.5 mg PO DAILY August 05, 2019 4:30pm January 06, 2020 8:25am Start: 06-28-2019 End: 01-06-2020 Start: 03-04-2019 End: 06-28-2019 take 5 tablets by mouth once daily Prednisone 1 mg tablet Discontinued 5 mg PO DAILY March 04, 2019 12:00am June 28, 2019 10:47am Start: 03-04-2019 End: 06-28-2019 take 5 mg by mouth once daily Prednisone Discontinued 5 MG PO DAILY March 03, 2019 11:00pm June 28, 2019 9:47am Start: 10-29-2018 End: 03-04-2019 take 1 tablet by mouth every other day Prednisone 2.5 MG tablet Discontinued 2.5 mg PO EVERY OTHER DAY October 29, 2018 1:00am March 04, 2019 4:17pm Start: 08-23-2018 End: 10-29-2018 take 1 tablet by mouth once daily Prednisone 5 mg tablet Discontinued 5 mg PO DAILY 14 0 October 06, 2018 2:11pm October 29, 2018 1:58pm Start: 08-23-2018 End: 10-06-2018 take 1 tablet by mouth twice daily Prednisone 5 mg tablet Discontinued 5 mg PO TWICE A DAY August 23, 2018 1:00am October 06, 2018 2:12pm Start: 06-06-2018 End: 08-23-2018 take 1 tablet by mouth once daily Prednisone 2.5 mg tablet Discontinued 2.5 mg PO DAILY June 06, 2018 12:00am August 23, 2018 10:37am Start: 06-06-2018 End: 08-23-2018 Start: 04-30-2018 End: 06-06-2018 take 5 mg by mouth once daily Prednisone 20 mg tablet Discontinued 5 mg PO daily April 30, 2018 7:21pm June 06, 2018 7:49am Start: 04-30-2018 End: 06-06-2018 take 5 mg by mouth once daily Prednisone Discontinued 5 MG PO daily April 30, 2018 6:21pm June 06, 2018 6:49am Start: 02-26-2018 End: 04-30-2018 take 10 mg by mouth once daily Prednisone 20 mg tablet Discontinued 10 mg PO daily February 26, 2018 10:59am April 30, 2018 7:22pm Start: 02-26-2018 End: 04-30-2018 take 10 mg by mouth once daily Prednisone Discontinued 10 MG PO daily February 26, 2018 9:59am April 30, 2018 6:22pm Start: 10-13-2017 End: 02-26-2018 take 3 tablets by mouth once daily at mealtime Prednisone 20 mg tablet Discontinued 60 mg PO daily 15 October 13, 2017 1:00am February 26, 2018 11:00am administer with food or milk Start: 10-13-2017 End: 06-06-2018 Start: 10-13-2017 End: 02-26-2018 take 60 mg by mouth once daily at mealtime Prednisone Discontinued 60 MG PO daily October 13, 2017 12:00am February 26, 2018 10:00am administer with food or milk raNITIdine 150 mg oral tablet (15 sources) Histamine-2 Receptor Antagonist Start: 02-26-2018 End: 08-23-2018 take 1 capsule by mouth at bedtime Ranitidine Hcl 150 mg capsule Discontinued 150 mg PO AT BEDTIME February 26, 2018 12:00am August 23, 2018 10:35am Start: 02-26-2018 End: 08-23-2018 take 1 capsule by mouth at bedtime ranitidine 150 mg capsule Discontinued 150 MG PO AT BEDTIME February 26, 2018 12:00am August 23, 2018 10:35am semaglutide (OZEMPIC) 0.25 mg or 0.5 mg (2 mg/3 mL) pen (2 sources) Start: 12-15-2023 End: 12-19-2023 inject 0.25 mg by subcutaneous injection every week, then inject 0.5 mg by subcutaneous injection every week semaglutide (OZEMPIC) 0.25 mg or 0.5 mg (2 mg/3 mL) pen Indications: Type 2 diabetes mellitus with diabetic polyneuropathy, without long-term current use of insulin (HCC) Inject subcutaneously 0.25 mg weekly x 4 wks then increase to 0.5 mg weekly 3 mL 12/15/2023 12/19/2023 Discontinued Start: 12-15-2023 inject 0.25 mg by cade bcutaneous injection every week, then inject 0.5 mg by subcutaneous injection every week semaglutide (OZEMPIC) 0.25 mg or 0.5 mg (2 mg/3 mL) pen Indications: Type 2 diabetes mellitus with diabetic polyneuropathy, without long-term current use of insulin (HCC) Inject subcutaneously 0.25 mg weekly x 4 wks then increase to 0.5 mg weekly 3 mL 12/15/2023 Active Comment on above: Inject subcutaneousl y 0.25 mg weekly x 4 wks then increase to 0.5 mg weekly 125 ml sodium chloride 9 mg/ml prefilled syringe (20 sources) Start: 03-26-2025 End: 03-26-2025 2-10 mL, INTRAVENOUS, DAILY, 1 dose, First dose on Mon03/26/25 at 1600 Start: 03-25-2025 End: 03-25-2025 2-10 mL, INTRAVENOUS, DAILY, 1 dose, First dose on Mon03/25/25 at 1100 Start: 03-25-2025 End: 03-25-2025 sodium chloride 0.9 % (flush ) 2-10 mL (BD POSIFLUSH) Start: 03-24-2025 End: 03-24-2025 2-10 mL, INTRAVENOUS, DAILY, 1 dose, First dose on Mon03/24/25 at 2200 Start: 03-24-2025 End: 03-24-2025 2-10 mL, INTRAVENOUS, DAILY, 1 dose, First dose on Mon03/24/25 at 2200 Start: 03-23-2025 End: 03-28-2025 inject 2-10 mL intravenously once daily sodium chloride 0.9 %, flush, (BD POSIFLUSH) syringe Inject 2-10 mL intravenously once daily. 03/23/2025 03/28/2025 Discontinued (Course of therapy completed) Start: 02-14-2022 End: 05-16-2023 sodium chloride 0.9 % (flush ) 10 mL (BD POSIFLUSH) Start: 11-20-2018 End: 03-04-2019 Sodium Chloride ([place] Saline) 0.65 % aerosol,spray Discontinued 3 NMA INTRANASAL every 1 to 4 hours as needed for dry nasal passages 104 November 20, 2018 12:00am March 04, 2019 4:18pm Epistaxis Start: 11-20-2018 End: 03-04-2019 Start: 11-20-2018 End: 03-04-2019 Sodium Chloride ([place] Saline) 0.65 % aerosol,spray Discontinued 3 SPRAY INTRANASAL every 1 to 4 hours November 19, 2018 11:00pm March 04, 2019 3:18pm spironolactone 25 mg oral tablet (20 sources) Aldosterone Antagonist Start: 06-27-2019 End: 10-11-2019 take 1 tablet by mouth once daily Spironolactone 25 mg tablet Discontinued 25 mg PO DAILY 30 June 27, 2019 12:00am October 11, 2019 9:04pm sulfamethoxazole 800 mg / trimethoprim 160 mg oral tablet (20 sources) Dihydrofolate Reductase Inhibitor Antibacterial, Sulfonamide Antimicrobial Start: 07-19-2018 End: 07-29-2018 Sulfamethoxazole-Tr imethoprim 800-160 mg tablet Discontinued 1 {tbl} PO TWICE A DAY 20 10 0 July 19, 2018 1:00am July 28, 2018 1:00am July 29, 2018 1:14am hematuria Start: 07-19-2018 End: 07-29-2018 Start: 07-19-2018 End: 07-29-2018 take 1 tablet by mouth twice daily Sulfamethoxazole-Trimethoprim Discontinued 1 TABLET PO TWICE A DAY 20 July 19, 2018 12:00am July 29, 2018 12:14am sulfaSALAzine 500 mg oral tablet (20 sources) Aminosalicylate Start: 08-23-2018 End: 11-29-2021 take 1 tablet by mouth twice daily Sulfasalazine 500 mg tablet Discontinued 0.5 g PO TWICE A DAY 180 90 0 August 24, 2021 3:27pm November 29, 2021 7:47am Start: 08-23-2018 End: 11-29-2021 take 1 tablet by mouth once daily Sulfasalazine 500 mg tablet Discontinued 2 g PO DAILY 360 90 0 August 05, 2019 4:36pm August 24, 2021 3:34pm Start: 08-23-2018 End: 11-29-2021 Start: 08-23-2018 End: 11-29-2021 Start: 08-23-2018 End: 08-05-2019 take 1 g by mouth twice daily Sulfasalazine Discontinu ed 1 GM PO TWICE A DAY 360 90 August 05, 2019 3:26pm August 05, 2019 3:37pm Start: 06-08-2017 End: 06-15-2017 take 2 tablets by mouth twice daily AZULFIDINE 500 MG TABS Two tablets by mouth twice daily SULFASALAZINE [id number] Betsy Cohn LPN Tirzepatide (1 source) Start: 11-13-2024 End: 01-10-2025 Tirzepatide (Mounjaro) 2.5 mg/0.5 mL pen injector Discontinued 2.5 mg SC EVERY WEEK November 13, 2024 1:00am January 10, 2025 2:48pm tirzepatide (MOUNJARO) 2.5 mg/0.5 mL pen injector (2 sources) Start: 11-08-2024 End: 12-12-2024 inject 2.5 mg by subcutaneous injection every week tirzepatide (MOUNJARO) 2.5 mg/0.5 mL pen injector Indications: Type 2 diabetes mellitus with diabetic polyneuropathy, without long-term current use of insulin (HCC) Inject 2.5 mg subcutaneously one time a week. 2 mL 5 11/08/2024 12/12/2024 Discontinued Start: 11-08-2024 inject 2.5 mg by sub cutaneous injection every week tirzepatide (MOUNJARO) 2.5 mg/0.5 mL pen injector Indications: Type 2 diabetes mellitus with diabetic polyneuropathy, without long-term current use of insulin (HCC) Inject 2.5 mg subcutaneously one time a week. 2 mL 5 11/08/2024 Active Tirzepatide (Mounjaro) 2.5 mg/0.5 mL pen injector (4 sources) Start: 11-13-2024 End: 01-10-2025 Tirzepatide (Mounjaro) 2.5 mg/0.5 mL pen injector Discontinued 2.5 mg SC EVERY WEEK November 13, 2024 1:00am January 10, 2025 2:48pm Start: 11-13-2024 Tirzepatide (M ounjaro) 2.5 mg/0.5 mL pen injector Active 2.5 mg SC EVERY WEEK November 13, 2024 1:00am Tirzepatide (Mounjaro) 5 mg/ 0.5 mL pen injector (3 sources) Start: 01-10-2025 End: 04-22-2025 Tirzepatide (Mounjaro) 5 mg/ 0.5 mL pen injector Discontinued mg SC January 10, 2025 12:00am April 22, 2025 8:22am Start: 01-10-2025 Tirzepatide (M ounjaro) 5 mg/0.5 mL pen injector Active mg SC January 10, 2025 12:00am tirzepatide (MOUNJARO) 7.5 mg/0.5 mL pen injector (20 sources) Start: 01-17-2025 End: 04-08-2025 inject 7.5 mg by subcutaneous injection every week tirzepatide (MOUNJARO) 7.5 mg/0.5 mL pen injector Indications: Type 2 diabetes mellitus with diabetic polyneuropathy, without long-term current use of insulin (HCC) Inject 7.5 mg subcutaneously one time a week. 2 mL 5 01/17/2025 04/08/2025 Discontinued Start: 01-17-2025 inject 7.5 mg by sub cutaneous injection every week tirzepatide (MOUNJARO) 7.5 mg/0.5 mL pen injector Indications: Type 2 diabetes mellitus with diabetic polyneuropathy, without long-term current use of insulin (HCC) Inject 7.5 mg subcutaneously one time a week. 2 mL 5 01/17/2025 Active valACYclovir 1000 mg oral tablet (14 sources) Herpesvirus Nucleoside Analog DNA Polymerase Inhibitor, Herpes Simplex Virus Nucleoside Analog DNA Polymerase Inhibitor, Herpes Zoster Virus Nucleoside Analog DNA Polymerase Inhibitor Start: 01-23-2023 End: 01-30-2023 Valacyclovir 1 gram tablet Discontinued 1000 mg PO THREE TIMES A DAY January 23, 2023 12:00am January 29, 2023 12:00am January 30, 2023 12:04am Start: 01-23-2023 End: 01-30-2023 take 1000 mg by mouth three times daily Valacyclovir Discontinued 1000 MG PO THREE TIMES A DAY 31 03January 22, 2023 11:00pm January 29, 2023 11:04pm vitamin E (20 sources) Start: 06-08-2017 take 1 tablet by jhon th once daily E-400 400 UNIT CAPS One tablet by mouth daily VITAMIN E [id number] Betsy King Lalit YEE Start: 06-01-2017 End: 10-11-2019 Vitamin E (Dl, Acetate) 400 UNIT capsule Discontinued 400 U PO DAILY June 01, 2017 12:00am October 11, 2019 9:04pm Problems Active Problems Problem Classification Problem Date Documented Da te Episodic/Chronic Anxiety disorders (20 sources) Mixed anxiety and depressive disorder; Translations: [Anxiety disorder, unspecified] Onset: 04-07-2025 Chronic Cancer of colon (20 sources) History of malignant neoplasm of colon; Translations: [Personal history of other malignant neoplasm of large intestine] 08-01-2022 Episodic Comment on above: rectal cancer 2 poly ps removed Cardiac dysrhythmias (20 sources) Ventricular premature beats; Translations: [Ventricular premature depolarization] Onset: Chronic Comment on above: Status post MICHAELA guid ed cardioversion at [facility] on 07/08/2019; Chronic obstructive pulmonary disease and bronchiectasis (20 sources) Bronchitis; Translations: [Bronchitis, not specified as acute or chronic] 02-26-2018 Episodic Complications of surgical procedures or medical care (20 sources) Postoperative hypothyroidism; Translations: [Postprocedural hypothyroidism] Onset: 8 Chronic Conditions associated with dizziness or vertigo (20 sources) Dizziness; Translations: [Dizziness and giddiness] 09-10-2020 Episodic Conduction disorders (20 sources) Right bundle branch block; Translations: [Unspecified right bundle-branch block] 08-01-2022 Chronic Congestive heart failure; nonhypertensive (20 sources) Congestive heart failure; Translations: [Heart failure, unspecified] Onset: 9 Resolved: 2 Chronic Coronary atherosclerosis and other heart disease (20 sources) Coronary atherosclerosis; Translations: [Atherosclerotic heart disease of [place] coronary artery with other forms of angina pectoris] Onset: 7 06-20-2017 Chronic Diabetes mellitus with complications (20 sources) Hyperglycemia due to type 2 diabetes mellitus; Translations: [Type 2 diabetes mellitus with hyperglycemia] Onset: 4 01-24-2023 Chronic Comment on above: [facility] Diabetes mellitus without complication (20 sources) Diabetes mellitus; Translations: [Type 2 diabetes mellitus without complications] Onset: 1 Chronic Diabetes mellitus without complication (20 sources) Prediabetes; Translations: [Prediabetes] Onset: 9 07-08-2019 Episodic Diseases of mouth; excluding dental (11 sources) Parotitis; Translations: [Acute sialoadenitis] 03-19-2024 Episodic Disorders of lipid metabolism (20 sources) Pure hypercholesterolemia; Translations: [Pure hypercholesterolemia, unspecified] Onset: 8 Resolved: 2 Chronic Diverticulosis and diverticulitis (20 sources) Diverticulitis; Translations: [Diverticulitis of intestine, part unspecified, without perforation or abscess without bleeding] Onset: 5 Chronic Esophageal disorders (20 sources) Gastroesophageal reflux disease without esophagitis; Translations: [Gastro-esophageal reflux disease without esophagitis] Onset: 8 07-08-2019 Chronic Esophageal disorders (4 sources) Esophageal disorders Essential hypertension (20 sources) Essential hypertension; Translations: [Essential (primary) hypertension] Onset: 8 07-08-2019 Chronic Genitourinary symptoms and ill-defined conditions (20 sources) Increased frequency of urination; Translations: [Frequency of micturition] Onset: 5 09-10-2020 Episodic Headache; including migraine (18 sources) Headache; Translations: [Headaches] Onset: 5 04-07-2025 Episodic Hepatitis (20 sources) Nonalcoholic steatohepatitis; Translations: [Nonalcoholic steatohepatitis (LLAMAS)] Onset: 4 Chronic Influenza (20 sources) Influenza due to Influenza A virus subtype H1N1; Translations: [Influenza due to other identified influenza virus with other respiratory manifestations] 09-10-2020 Episodic Malaise and fatigue (20 sources) Malaise and fatigue; Translations: [Malaise] Onset: 7 06-15-2017 Episodic Mood disorders (1 source) Mood disorders; Translations: [Anxiety and depression] Onset: 5 Mycoses (20 sources) Mycosis; Translations: [Candidiasis, unspecified] 09-10-2020 Episodic Nausea and vomiting (20 sources) Vomiting; Translations: [Vomiting, unspecified] Onset: 5 09-05-2022 Episodic Nonspecific chest pain (20 sources) Chest pain; Translations: [Atypical chest pain] Onset: 6 Resolved: 1 06-15-2017 Episodic Osteoarthritis (4 sources) Osteoarthritis of left knee joint; Translations: [Unilateral primary osteoarthritis, left knee] 08-07-2024 Chronic Other aftercare (11 sources) Drug therapy finding; Translations: [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] 10-04-2024 Episodic Other aftercare (1 source) snf (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; Translations: [snf current use of anticoagulant] Onset: 5 Episodic Other and ill-defined heart disease (20 sources) Diastolic dysfunction; Translations: [Other ill-defined heart diseases] 08-01-2022 Chronic Other and ill-defined heart disease (2 sources) Left ventricular cardiac dysfunction; Translations: [Heart disease, unspecified] Chronic Other and ill-defined heart disease (9 sources) Other ill-defined heart diseases; Translations: [Heart disease, unspecified] Chronic Other and unspecified benign neoplasm (20 sources) Lipoma (clinical); Translations: [Benign lipomatous neoplasm, unspecified] 08-01-2022 Episodic Other connective tissue disease (20 sources) Mass of soft tissue; Translations: [Other specified soft tissue disorders] 06-01-2022 Episodic Other ear and sense organ disorders (20 sources) Otalgia, left ear; Translations: [Left ear pain] 09-10-2020 Episodic Other gastrointestinal disorders (20 sources) Diarrhea; Translations: [Diarrhea, unspecified] Episodic Other gastrointestinal disorders (12 sources) Constipation; Translations: [Constipation, unspecified] 01-23-2025 Episodic Other gastrointestinal disorders (20 sources) History of diverticulitis; Translations: [Personal history of other diseases of the digestive system] Onset: 5 03-19-2025 Episodic Other liver diseases (15 sources) Steatosis of liver; Translations: [Fatty (change of) liver, not elsewhere classified] Chronic Other liver diseases (20 sources) Non-alcoholic fatty liver disease without non-alcoholic steatohepatitis; Translations: [Fatty (change of) liver, not elsewhere classified] Onset: 2 11-02-2021 Chronic Other liver diseases (3 sources) Hepatic fibrosis; Translations: [Liver fibrosis] Chronic Other liver diseases (2 sources) Fatty (change of) liver, not elsewhere classified; Translations: [Nonalcoholic fatty liver disease without nonalcoholic steatohepatitis (LLAMAS)] Onset: 2 Chronic Other liver diseases (3 sources) Elevated liver enzymes level; Translations: [Abnormal levels of other serum enzymes] Episodic Other lower respiratory disease (20 sources) Dyspnea on exertion; Translations: [Dyspnea, unspecified] Onset: 7 06-12-2017 Episodic Other lower respiratory disease (20 sources) Dyspnea; Translations: [Dyspnea, unspecified] Onset: 9 07-08-2019 Episodic Other lower respiratory disease (7 sources) Other forms of dyspnea; Translations: [Other respiratory abnormalities] Onset: 5 03-27-2023 Episodic Other lower respiratory disease (18 sources) Cough; Translations: [Cough] 03-28-2025 Episodic Other non-traumatic joint disorders (14 sources) Shoulder pain; Translations: [Pain in unspecified shoulder] 09-02-2024 Episodic Other nutritional; endocrine; and metabolic disorders (20 sources) Obesity; Translations: [Obesity, unspecified] Onset: 7 Resolved: 5 07-03-2017 Chronic Other nutritional; endocrine; and metabolic disorders (20 sources) Body mass index 40+ - severely obese; Translations: [Morbid (severe) obesity due to excess calories] Onset: 8 07-08-2019 Chronic Other nutritional; endocrine; and metabolic disorders (8 sources) Morbid (severe) obesity due to excess calories; Translations: [Morbid obesity] Onset: 4 Chronic Other nutritional; endocrine; and metabolic disorders (2 sources) Obesity, unspecified; Translations: [Obesity, unspecified] 12-26-2022 Chronic Other nutritional; endocrine; and metabolic disorders (20 sources) Severe obesity; Translations: [Morbid (severe) obesity due to excess calories] Onset: 4 11-28-2023 Chronic Other nutritional; endocrine; and metabolic disorders (11 sources) Body mass index 30+ - obesity 11-13-2024 Chronic Other nutritional; endocrine; and metabolic disorders (1 source) Body mass index (BMI) 50.0-59.9, adult; Translations: [Class 3 severe obesity with serious comorbidity and body mass index (BMI) of 50.0 to 59.9 in adult, unspecified obesity type] Onset: 5 Chronic Other screening for suspected conditions (not mental disorders or infectious disease) (20 sources) Cardiovascular stress test abnormal; Translations: [Abnormal result of other cardiovascular function study] Onset: 5 06-01-2022 Episodic Other skin disorders (20 sources) Lichen sclerosus et atrophicus; Translations: [Lichen sclerosus et atrophicus] Onset: 4 Chronic Comment on above: clobetasol. resolved with use. Other skin disorders (11 sources) Facial swelling ; Translations: [Localized swelling, mass and lump, head] 03-19-2024 Episodic Other upper respiratory disease (20 sources) Bleeding from nose; Translations: [Epistaxis] 06-05-2019 Episodic Other upper respiratory infections (20 sources) Maxillary sinusitis; Translations: [Chronic maxillary sinusitis] 09-10-2020 Chronic Other upper respiratory infections (20 sources) Acute maxillary sinusitis; Translations: [Acute maxillary sinusitis, unspecified] 08-01-2022 Episodic Otitis media and related conditions (20 sources) Serous otitis media; Translations: [Unspecified nonsuppurative otitis media, left ear] 09-10-2020 Episodic Phlebitis; thrombophlebitis and thromboembolism (20 sources) History of recurrent deep vein thrombosis; Translations: [Personal history of other venous thrombosis and embolism] Onset: 1 02-16-2009 Episodic Comment on above: L leg Residual codes; unclassified (20 sources) Sleep apnea; Translations: [Sleep apnea, unspecified] 12-06-2017 Chronic Residual codes; unclassified (20 sources) Hypersomnia; Translations: [Hypersomnia, unspecified] 08-01-2022 Chronic Residual codes; unclassified (15 sources) Sleep apnea, unspecified; Translations: [Unspecified sleep apnea] Chronic Residual codes; unclassified (20 sources) Obstructive sleep apnea syndrome; Translations: [Obstructive sleep apnea (adult) (pediatric)] Onset: 8 11-02-2021 Chronic Residual codes; unclassified (2 sources) Obstructive sleep apnea (adult) (pediatric); Translations: [MARILIA on CPAP] Onset: 5 Chronic Residual codes; unclassified (20 sources) Patient encounter status; Translations: [Other specified personal risk factors, not elsewhere classified] Onset: 2 11-02-2021 Episodic Residual codes; unclassified (2 sources) Bilateral lower limb edema; Translations: [Localized edema] Episodic Residual codes; unclassified (20 sources) History of cardiac catheterization; Translations: [Other specified postprocedural states] 06-01-2022 Episodic Comment on above: nonobstructive CAD Residual codes; unclassified (1 source) Pain; Translations: [Pain, unspecified] 08-07-2024 Episodic Residual codes; unclassified (1 source) Other specified postprocedural states; Translations: [Post-operative nausea and vomiting] Onset: 5 Episodic Rheumatoid arthritis and related disease (20 sources) Rheumatoid arthritis; Translations: [Rheumatoid arthritis, unspecified] Onset: 7 06-14-2017 Chronic Septicemia (except in labor) (20 sources) Sepsis; Translations: [Sepsis, unspecified organism] Onset: 5 03-19-2025 Episodic Thyroid disorders (20 sources) Hypothyroidism; Translations: [Hypothyroidism, unspecified] Onset: 7 06-14-2017 Chronic Unclassified (5 sources) Body mass index (BMI) 45.0-49.9, adult; Translations: [Sleep apnea] Onset: 7 06-29-2017 Chronic Unclassified (7 sources) Autogenerated Problem Onset: 5 04-22-2025 Unclassified (1 source) Obesity, Class III, BMI 40-49.9 (morbid obesity) ([facility]); Translations: [Obesity, Class III, BMI 40-49.9 (morbid obesity) (HCC)] Onset: 5 Unclassified (1 source) Headaches; Translations: [Headaches] Onset: 5 Unclassified (1 source) Class 3 severe obesity with serious comorbidity and body mass index (BMI) of 50.0 to 59.9 in adult, unspecified obesity type; Translations: [Class 3 severe obesity with serious comorbidity and body mass index (BMI) of 50.0 to 59.9 in adult, unspecified obesity type] Onset: 5 Unclassified (1 source) Cough, unspecified; Translations: [Cough, unspecified] Onset: 5 Urinary tract infections (20 sources) Urinary tract infectious disease; Translations: [Urinary tract infection, site not specified] 09-10-2020 Episodic Comment on above: with intercoarse Viral infection (14 sources) Herpes zoster; Translations: [Zoster without complications] 01-24-2023 Episodic Past or Other Problems Problem Classification Problem Date Documented Da te Episodic/Chronic Abdominal pain (20 sources) Generalized abdominal pain; Translations: [Generalized abdominal pain] Onset: 5 09-10-2020 Episodic Acute bronchitis (12 sources) Acute bronchitis; Translations: [Acute bronchitis, unspecified] Onset: 5 06-10-2024 Episodic Cancer of breast (20 sources) History of malignant neoplasm of breast; Translations: [Personal history of malignant neoplasm of breast] Onset: 4 11-26-2020 Episodic Comment on above: partial mastectomy, radiation. 1997 Cancer of cervix (20 sources) History of malignant neoplasm of cervix; Translations: [Personal history of malignant neoplasm of cervix uteri] Onset: 4 Episodic Comment on above: in past, had [facility]. ne eds annual paps due to rheumatoid arthritis treatment. Cancer of rectum and anus (20 sources) History of malignant neoplasm of gastrointestinal tract; Translations: [Personal history of other malignant neoplasm of rectum, rectosigmoid junction, and anus] Onset: 1 11-26-2020 Episodic Congestive heart failure; nonhypertensive (2 sources) Diastolic dysfunction; Translations: [Heart disease, unspecified] Onset: 7 06-12-2017 Episodic Joint disorders and dislocations; trauma-related (20 sources) Tear of meniscus of knee; Translations: [Unspecified tear of unspecified meniscus, current injury, right knee, initial encounter] Onset: 3 Resolved: 9 07-08-2019 Episodic Nonmalignant breast conditions (20 sources) Breast lump; Translations: [Unspecified lump in unspecified breast] Onset: 5 09-27-2004 Episodic Comment on above: left sided lump, US and mamm ordered Other aftercare (20 sources) Long-term current use of anticoagulant; Translations: [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] Onset: 2 11-02-2021 Episodic Other aftercare (20 sources) Long-term current use of drug therapy; Translations: [Encounter for therapeutic drug level monitoring] Onset: 2 11-02-2021 Episodic Other and unspecified benign neoplasm (20 sources) Lipoma of trunk; Translations: [Benign lipomatous neoplasm of skin and subcutaneous tissue of trunk] Onset: 1 11-05-2020 Episodic Other gastrointestinal disorders (3 sources) Diarrhea, unspecified; Translations: [Diarrhea, unspecified type] Onset: 5 Episodic Other gastrointestinal disorders (1 source) Constipation, unspecified; Translations: [Constipation, unspecified] Onset: 5 Episodic Other injuries and conditions due to external causes (20 sources) Injury of right knee; Translations: [Unspecified injury of right lower leg, initial encounter] Onset: 3 10-03-2012 Episodic Other lower respiratory disease (1 source) Dyspnea, unspecified; Translations: [Dyspnea, unspecified type] Onset: 9 Episodic Other non-traumatic joint disorders (20 sources) Pain of right wrist; Translations: [Pain in right wrist] Onset: 3 10-03-2012 Episodic Other skin disorders (20 sources) Mass of back; Translations: [Localized swelling, mass and lump, trunk] Onset: 8 Resolved: 1 11-26-2020 Episodic Residual codes; unclassified (6 sources) Other specified personal risk factors, not elsewhere classified; Translations: [Routine gynecological examination] Onset: 4 Episodic Residual codes; unclassified (1 source) Pain, unspecified; Translations: [Pain] Onset: 4 Episodic Unclassified (2 sources) Hypersomnia; Translations: [Hypersomnia, unspecified] Onset: 7 06-12-2017 Episodic Unclassified (20 sources) Cholecystectomy planned; Translations: [Cholecystectomy planned] 01-19-2021 Unclassified (20 sources) Body mass index 30+ - obesity; Translations: [Body mass index (BMI) greater than or equal to 35] Results Test Name Value Interpretation Reference Range Facility Anion gap in Serum or Plasma Ordered By: Carson Hobbs on 06-30-2025 Anion gap [Moles/Vol] 10 mmol/L 01-23 [facility] BUN/creatinine ratioOrdered By: Carson Hobbs on 06-30-2025 Urea nitrogen/Creatinine [Mass ratio] 14.3 mg/mg 06-30 [facility] Basic Metabolic Profile (BMP )on 06-30-2025 BUN/CRE 14.3 RATIO Normal 06-30 [facility] Comment on above: Performed By: #### L 500.2500 #### [facility] [address] [place], [address] Calcium [Mass/Vol] 9.6 mg/dL Normal 7.6-11.0 [facility] Comment on above: Performed By: #### L 500.2500 #### [facility] [address] [place], [address] Chloride [Moles/Vol] 106 mmol/L Normal 98-108 [facility] Comment on above: Performed By: #### L 500.2500 #### [facility] [address] [place], [address] CO2 [Moles/Vol] 23.1 mmol/L Normal 21.0-32.0 [facility] Comment on above: Performed By: #### L 500.2500 #### [facility] [address] [place], [address] Creatinine [Mass/Vol] 0.75 mg/dL Normal 0.70-1.20 [facility] Comment on above: Performed By: #### L 500.2500 #### [facility] [address] [place], [address] GAP 10 Normal 5-15 [facility] Comment on above: Performed By: #### L 500.2500 #### [facility] [address] [place], [address] GFR/1.73 sq M.predicted among non-blacks MDRD (S/P/Bld) [Vol rate/Area] 86 mL/min/{1.73_m2} Normal >60 [facility] Comment on above: Result Comment: mL/m in/1.73m2 CKD-EPI Creatinine Equation (2020) Performed By: #### L 500.2500 #### [facility] [address] [place], [address] Glucose [Mass/Vol] 121 mg/dL High 70-99 [facility] Comment on above: Performed By: #### L 500.2500 #### [facility] [address] [place], [address] Potassium [Moles/Vol] 4.0 mmol/L Normal 3.3-5.1 [facility] Comment on above: Performed By: #### L 500.2500 #### [facility] [address] [place], [place], [id number] Sodium [Moles/Vol] 139 mmol/L Normal 133-145 [facility] Comment on above: Performed By: #### L 500.2500 #### [facility] [address] [place], [place], [id number] Urea nitrogen [Mass/Vol] 11 mg/dL Normal 4-19 [facility] Comment on above: Performed By: #### L 500.2500 #### [facility] [address] [place], [place], [id number] Carbon dioxide, total [Moles /volume] in Central venous bloodOrdered By: [place] Anjel on 06-30-2025 CO2 [Moles/Vol] 23.1 mmol/L 21.0-32.0 [facility] Chloride assayOrdered By: Cy ril Anjel on 06-30-2025 Chloride [Moles/Vol] 106 mmol/L 98-108 [facility] Glomerular filtration rate ( GFR) estimation/1.73 sq m using serum, plasma, or whole bOrdered By: Carson Anjel on 06-30-2025 GFR/1.73 sq M.predicted among non-blacks MDRD (S/P/Bld) [Vol rate/Area] 86 mL/min/{1.73_m2} >60 [facility] Comment on above: mL/min/1.73m2 CKD-EP I Creatinine Equation (2020) L3890.6001on 06-30-2025 HEP B Surf Ab Non-Reactive Normal [facility] Comment on above: Order Comment: EXTRA BLOOD DRAWN MG4 1 B OR MG4 2 I Result Comment: <8.5 mIU/mL: Non-Reactive 8.5<= x <11.5 mIU/mL: Indeterminate >=11.5 mIU/mL: Reactive Non Reactive: Inconsistent with immunity less than <10 mIU/mL Reactive: Consistent with immunity greater than or equal to 10 mIU/mL Performed By: #### L 3890.6001 ####[facility] [address] [place], [place], [id number] HEP B Surf Ag Non-Reactive Normal Nonreactive [facility] Comment on above: Order Comment: EXTRA BLOOD DRAWN MG4 1 B OR MG4 2 I Result Comment: Reac tive: Presumptive evidence of HBV. Repeatedly reactive samples must be confirmed using a neutralization test ([employer] HBsAg Confirmatory Test) Non-Reactive: HBsAg not detected; does not exclude the possibility of exposure to HBV Performed By: #### L 3890.6001 ####[facility] [address] [facility], [address] Hepatitis C Ab Non-Reactive Normal Nonreactive [facility] Comment on above: Order Comment: EXTRA BLOOD DRAWN MG4 1 B OR MG4 2 I Result Comment: Reac tive: Presumptive evidence of antibodies to HCV. Follow CDC recommendations for supplemental testing. Non-Reactive: Antibodies to HCV were not detected; does not exclude the possibility of exposure to HCV Reactive Results are presumptive evidence of antibodies to HCV. Follow CDC recommendations for supplemental testing. Order confirmation testing: HCV Quant by PCR testing - HCVPCR lc#[id number] Non Reactive: < 0.8 Equivocal: >/= 0.8 to < 1.0 Reactive: >/= 1.0 The CDC requires that a reactive/equivocal HCV antibody result be sent out for confirmation. HCV Quant by PCR testing. Performed By: #### L 3890.6001 ####[facility] [address] [facility] [place], [address] HIV Non-Reactive Normal Nonreactive [facility] Comment on above: Order Comment: EXTRA BLOOD DRAWN MG4 1 B OR MG4 2 I Result Comment: Non- Reactive Reactive Repeatedly reactive samples must be confirmed according to CDC recommended confirmatory algorithms. The subresults for either HIVAG or AHIV can be used as an aid in the selection of the confirmation algorithm for reactive samples. Send out specimens with Reactive results to [facility] for confirmation. Order the HIV antibody detection and differentiation: lc#[id number] Performed By: #### L 3890.6001 ####[facility] [address] [facility] [place], [address] Laboratory - Microbiology an d Antimicrobial susceptibilityOrdered By: Cesar Smith on 06-30-2025 HBV surface Ag Ql (S) Non-Reactive Nonreactive [facility] Comment on above: Reactive: Presumptiv e evidence of HBV. Repeatedly reactive samples must be confirmed using a neutralization test ([employer] HBsAg Confirmatory Test)Non-Reactive: HBsAg not detected; does not exclude the possibility of exposure to HBV No Panel InformationOrdered By: Cesar Smith on 06-30-2025 HIV (1&2) Antibody Non-Reactive Nonreactive [facility] Comment on above: Non-ReactiveReactive Repeatedly reactive samples must be confirmed according to CDC recommended confirmatory algorithms. The subresults for either HIVAG or AHIV can be used as an aid in the selection of the confirmation algorithm for reactive samples.Send out specimens with Reactive results to [facility] for confirmation.Order the HIV antibody detection and differentiation: #[id number] Potassium measurement (mass/ volume)Ordered By: Carson Hobbs on 06-30-2025 Potassium (Unsp spec) [Mass/Vol] 4.0 mmol/L 3.3-5.1 [facility] Serum creatinine measurement (mass/volume)Ordered By: Carson Hobbs on 06-30-2025 Creatinine [Mass/Vol] 0.75 mg/dL 0.70-1.20 [facility] Serum glucose measurement (m ass/volume)Ordered By: Carson Hobbs on 06-30-2025 Glucose [Mass/Vol] 121 mg/dL High 70-99 [facility] Serum hepatitis B virus surf nuno antibody detectionOrdered By: Cesar Smith on 06-30-2025 HBV surface Ab Ql (S) Non-Reactive [facility] Comment on above: <8.5 mIU/mL: Non-[place] ctive8.5<= x <11.5 mIU/mL: Indeterminate>=11.5 mIU/mL: Reactive Non Reactive: Inconsistent with immunity less than <10 mIU/mL Reactive: Consistent with immunity greater than or equal to 10 mIU/mL Serum or plasma calcium shamir urement (mass/volume)Ordered By: Carson Hobbs on 06-30-2025 Calcium [Mass/Vol] 9.6 mg/dL 7.6-11.0 [facility] Serum or plasma urea nitroge n measurement (mass/volume)Ordered By: Carson Hobbs on 06-30-2025 Urea nitrogen [Mass/Vol] 11 mg/dL 4-19 [facility] Sodium levelOrdered By: Júnior Hobbs on 06-30-2025 Sodium [Moles/Vol] 139 mmol/L 133-145 [facility] Cardiology Visit Reporton Cardiology Visit Report [facility] [address] [place] [address] OFFICE VISIT Date of Service: 06/27/25 MR#: [id number] Acct: [id number] Name: ALEXANDRA BELLA Rep #: [id number] 1 : 1955 Provider: Dr. Carson Hobbs MD Age/Sex: 69/F Location: [facility] Status: Signed HPI HPI History of Present Illness Details: This is 69-year-old female who presents for a cardiovascular outpatient follow-up. She has a history of diastolic dysfunction, paroxysmal atrial fibrillation status post MICHAELA guided cardioversion at [facility] on 07/08/2019, DVT status post [place] filter, morbid obesity, former smoker, quit after 15 pack smoking history, and MARILIA with BiPAP. She also has a history of breast cancer with previous radiation therapy. She had a heart catheterization on 09/23/2019 for chest pressure, increased SOB, and syncope that showed an ejection fraction of 55% or greater and mild LAD disease. Echocardiogram in December 2024 showed LV function 55%. Stress test in December 2024 was negative for ischemia and showed preserved EF. She acknowledges midsternal chest pressure. This occurs twice per week and last for approximately 10 minutes. This has improved with Lasix therapy. She denies palpitations. She acknowledges bilateral lower extremity edema with right worse than left. She acknowledges shortness of breath with activity. She denies shortness of breath at rest, orthopnea, cough, or PND. She acknowledges lightheadedness when standing too quickly. She denies dizziness, near-syncope, or syncope. She acknowledges fatigue and weakness. 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 Required: No Accompanied by: Significant Other Is patient in pain?: No Allergies infliximab (From Remicade) Allergy (Severe, Verified 06/27/25 09:07) Anaphylaxis oxymetazoline (From Afrin (oxymetazoline)) Allergy (Severe, Verified 06/27/25 09:07) CHEST PAIN Penicillins Allergy (Verified 06/27/25 09:07) Hives adhesive tape Adverse Reaction (Severe, Verified 06/27/25 09:07) / clarithromycin Adverse Reaction (Severe, Verified 06/27/25 09:07) crmps and diarrhea dulaglutide (From Trulicity) Adverse Reaction (Severe, Verified 06/27/25 09:07) Abd cramps/diarrhea latex Adverse Reaction (Severe, Verified 06/27/25 09:07) / spironolactone (From Aldactone) Adverse Reaction (Severe, Verified 06/27/25 09:07) headaches Medications ???Medication ???Instructions ???Recorded ???Confirmed ???Type tramadol 50 mg tablet 50 mg PO Q6H PRN Pain 08/23/18 History celecoxib 200 mg capsule 200 mg PO 1200 08/05/19 06/27/25 H istory blood-glucose meter (FreeStyle #1 ea 01/06/20 04/22/25 Rx [place] Lite kit) lancing device with lancets kit #1 ea 08/13/20 04/22/25 Rx (OneTouch Delica Plus Lancing Device kit) compress.stocking,knee,r eg,lrg #2 ea 08/31/20 04/22/25 Rx FreeStyle Lite Strips (blood sugar #300 ea 12/08/21 04/22/25 Rx diagnostic) lancets 28 gauge (FreeStyle #120 ea 12/08/21 04/22/25 Rx Lancets) diphenoxylate-atropine 2.5 1 tab PO TID PRN diarrhea #30 tabs 09/26/22 06/27/25 Rx mg-0.025 mg tablet (Lomotil) levothyroxine 200 mcg tablet 200 mcg PO DAILY 01/05/24 06/27/25 History (Synthroid) sucralfate 1 gram tablet (Carafate) 1 g PO QDAY PRN 01/05/24 History losartan 50 mg tablet 50 mg PO DAILY #90 tabs 11/13/24 1 Rx albuterol sulfate 90 mcg/actuation 2 puff inhalation Q4H PRN 06/27/25 Rx aerosol inhaler shortness of breath or wheezing #8.5 grams fluticasone propionate 50 2 spray intranasal DAILY #18.2 mL 11/19/24 06/27/25 Rx mcg/actuation nasal spray,suspension (Allergy Relief (fluticasone)) flecainide 100 mg tablet 100 mg PO Q12H #180 tabs 01/02/25 06/27/25 Rx famotidine 40 mg tablet 40 mg PO QHS #30 tabs 01/23/25 Rx pantoprazole 40 mg tablet,delayed 40 mg PO BID #60 tabs 01/23/25 Rx release apixaban 5 mg tablet (Eliquis) 5 mg PO BID #180 tabs 04/28/25 Rx clobetasol 0.05 % topical ointment 1 applic topical QHS PRN lichen 06/24/25 06/27/25 Rx sclerosis #30 grams nystatin 100,000 unit/gram topical 1 applic topical BID PRN itching 06/24/25 06/27/25 Rx powder #30 grams hydrochlorothiazide 25 mg tablet 25 mg PO QAM #90 tabs 06/27/25 Rx metoprolol succinate 25 mg 25 mg PO QDAY #90 tabs 06/27/25 Rx tablet,extended release 24 hr tirzepatide 5 mg/0.5 mL 5 mg subcut QWEEK 06/27/25 5 History subcutaneous pen injector (Mounj (more content not included)... Normal [facility] ANES POSTPROC EVALon 025 ANES POSTPROC EVAL HNO ID: [id number] Author: ARIEL MOREL MD Service: Anesthesiology Author Type: Anesthesiologist Type: Anesthesia Postprocedure Evaluation Filed: 05/21/2025 14:40 Note Text: POST ANESTHESIA EVALUATION NOTE : 1955 Procedure Summary Date: 05/21/25 Room / Location: [facility] Endoscopy - ENDO Anesthesia Start: 1211 Anesthesia Stop: 1230 Procedure: COLONOSCOPY DIAGNOSTIC Diagnosis: Diverticulitis (Screening for colorectal malignant neoplasm) Scheduled Providers: Marlon Cesar MD; Raza Gallegos APRN.CRNA; Ariel Morel MD Responsible Provider: Ariel Morel MD Anesthesia Type: MAC ASA Status: 3 Anesthesia Type: MAC Last Vitals Vitals Value Taken Time BP 121/71 05/21/25 13:11 Temp 36.3 ?C (97.3 ?F) 05/21/25 13:11 Pulse 75 05/21/25 13:12 Resp 17 05/21/25 13:12 SpO2 97 % 05/21/25 13:11 Vitals shown include unfiled device data. Post Anesthesia Patient Status Patient Evaluation: PACU. PACU/ICU Patient Condition: stable. Neurological Status: aware and responsive. Pulmonary Status: breathing comfortably on room air Airway Control: returned to baseline unsupported. Cardiovascular Status: stable. Pain Management: clinically adequate Postoperative Hydration: acceptable. Intraoperative Events: no significant anesthesia events Post Operative Nausea/Vomiting Status: no significant post operative nausea or vomiting Recommendation: continue current plan of care. Anesthesia Observations No Documentation SIGNATURE: Ariel Morel MD PATIENT NAME: Alexandra Bella DATE: May 21, 2025 TIME: 2:40 PM CSN: [id number] Normal [facility] ANES PRE-OPon 05-21-2025 ANES PRE-OP HNO ID: [id number] Author: ARIEL MOREL MD Service: Anesthesiology Author Type: Anesthesiologist Type: Anesthesia Preprocedure Evaluation Filed: 05/21/2025 11:26 Note Text: ANESTHESIOLOGY DAY OF SURGERY NOTE : 1955 Procedure Information Date/Time: 05/21/25 1230 Scheduled providers: Marlon Cesar MD; Raza Gallegos APRN.PLASTIC SEWER; Ariel Morel MD Procedure: COLONOSCOPY DIAGNOSTIC Location: [facility] Endoscopy - ENDO Estimated body mass index is 48.11 kg/m? as calculated from the following: Height as of 04/23/25: 160 cm (5' 3"). Weight as of 04/23/25: 123.2 kg (271 lb 9.7 oz). Most recent hematocrit and potassium results: Hematocrit 39.6 04/23/2025 Potassium 4.2 04/23/2025 Relevant Problems ANESTHESIA (+) MARILIA on CPAP (+) Post-operative nausea and vomiting CARDIO (+) Atrial fibrillation (HCC) (+) Coronary artery disease involving [place] coronary artery of [place] heart without angina pectoris (+) Essential hypertension (+) Phlebitis and thrombophlebitis of other deep vessels of lower extremities ENDO (+) Postoperative hypothyroidism (+) Type 2 diabetes mellitus with diabetic polyneuropathy, without long-term current use of insulin (HCC) GI (+) Gastroesophageal reflux disease without esophagitis -RENAL (+) Nonalcoholic fatty liver disease without nonalcoholic steatohepatitis ([place]AMAS) NEURO-PSYCH (+) Headaches PULMONARY (+) Dyspnea (+) MARILIA on CPAP Other (+) Rheumatoid arthritis (HCC) I - PHYSICAL EVALUATION AIRWAY Patient intubated: No. Tracheostomy tube not present Mallampati: II. TM distance: >3 FB. Neck ROM: full ROM without neurological symptoms. Mouth openin FB. Short neck: no. Thick neck: no DENTAL Dental findings: teeth intact. Additional exam findings: no II - ANESTHESIA PLAN ASA Score: 3 Anesthetic Plan: MAC The patient is not a current smoker. NPO Status: adequate Monitoring Plan Monitoring plan: standard ASA. Post Procedure Analgesic Plan Postoperative analgesic plan: multimodal analgesia. Informed Consent Anesthetic risks, benefits, alternatives, personnel and consent discussed: yes. Patient / Responsible Democrat agrees to proceed: yes Patient / Surrogate agrees to blood products: Yes Potential Anesthesia issues that may suggest increased risk of complications or contraindication to planned procedure: none. No vitals data found for the desired time range. Outpatient Medications as of 05/21/2025 Medication Sig omeprazole (PRILOSEC) 40 mg capsule Take 1 capsule by mouth two times a day. famotidine (PEPCID) 40 mg tablet Take 1 tablet by mouth at bedtime as needed. glipiZIDE (GLUCOTROL XL) 2.5 mg 24 hr tablet Take 1 tablet by mouth once daily. [employer] ULTRA TEST test strip Use as directed to check glucose 1 time daily. E11.9, non-insulin dependent. ONETOUCH ULTRASOFT LANCETS Use as directed to check glucose 1 times daily.E11.9, non-insulin dependent. tirzepatide (MOUNJARO) 5 mg/0.5 mL pen injector Inject 5 mg subcutaneously one time a week. (Patient not taking: Reported on 04/23/2025) iv contrast (will be provided with radiology test) CT ABD/PEL -Inject, intravenously, once for 1 dose.No IV access, insert saline lock prior to the beginning of sedation, infusion, injection of imaging exam. Discontinue saline lock post exam. If Pt. has a central line or IVAD, may access for administration according to line specific nursing protocol. Once exam is complete flush line and de-access according to line specific nursing protocol in the CT contrast administration guidelines link. enteric contrast (will be provided with radiology test) For CT ABD/PEL W IVCON Routine order Administer, As Directed One Time Only, via Oral, Rectal, both Oral and Rectal, Enteric Tube, Stoma or Indwelling Catheter, Enteric Contrast as designated per enteric contrast guidelines neomycin 500 mg tablet Take 2 tablets by mouth as directed. Take 2 tablet at 6pm, 7pm, and 11pm the evening prior to surgery. losartan (COZAAR) 50 mg tablet Take 50 mg by mouth once daily. metoprolol tartrate, short acting, (LOPRESSOR) 25 mg tablet Take 25 mg by mouth once daily. 1/2 tab furosemide (LASIX) 40 mg tablet Take 1 tablet by mouth once daily. sucralfate (CARAFATE) 100 mg/mL suspension Take 10 mL by mouth two times a day. Take on empty stomach and avoid eating or drinking for 30 mins after taking. levothyroxine (SYNTHROID) 200 mcg tablet Take one tablet Monday through Monday,and half a pill on Saturdays and none on Sundays. (Patient taking differently: Take by mouth. Take one tablet Monday through Monday,and half a pill on Saturdays and none on Sundays.) Blood-Glucose Meter (ONETOUCH ULTRA2 METER) monitoring kit Use to test blood sugar daily, DX: E11.9, NIDDM omeprazole (PRILOSEC) 40 mg capsule TAKE 1 CAPSULE BY MOUTH ONCE DAILY losartan (COZAAR) 25 mg tablet Take 0.5 tablets by mouth once daily. flecainide (TAMB (more content not included)... Normal [facility] CNPNon 05-21-2025 CNPN Telephone ([facility]) -------- ALEXANDRA BELLA ([id number]) 1955 F Date Time Provider Department 05/21/25 MARLON CESAR [facility] During your visit today, we recorded the following information about you: Mateus Lobo RN 05/21/2025 1:02 PM Signed Surgery canceled and patient is aware. Questran ordered. Allergies As of Date: 05/21/2025 Noted Allergy Reaction ADHESIVE TAPE 01/07/2002 Comments: rash AVELOX (MOXIFLOXACIN HCL) 02/16/2009 Comments: Heart race BIAXIN (CLARITHROMYCIN) 02/17/2009 4 - Hives 8 - GI Upset ERYC (ERYTHROMYCIN) 02/16/2009 7 - Swelling METFORMIN 05/25/2022 8 - GI Upset Comments: Throwing up, Diarrhea PENICILLINS 07/07/2003 QUINOLONES 07/12/2004 Comments: Avelox REMICADE (INFLIXIMAB) 10/21/2020 12 - Shortness of Breath SPIRONOLACTONE 05/14/2020 5 - Intolerance Comments: Headaches SUTURES 11/28/2023 14 - Other: See Comments Comments: Suture do not dissolve DEMEROL (MEPERIDINE (PF)) 03/14/2012 14 - Other: See Comments Comments: Arm swelled up locally and turned red. Date Reviewed: 05/21/2025 Reviewed by: Ama Vasquez RN - Fully Assessed Reason for Visit: Care Coordination [3495] Cmt: Follow up Order(s):cholestyramine- sucrose (QUESTRAN) 4 gram powderTake 4 g by mouth three times a week. Every Monday, Monday and Monday.Disp: 144 gRfl: 0 Prescriptions as of 05/23/2025 - cholestyramine-sucrose (QUESTRAN) 4 gram powder Take 4 g by mouth three times a week. Every Monday, Monday and Monday. - omeprazole (PRILOSEC) 40 mg capsule Take 1 capsule by mouth two times a day. - famotidine (PEPCID) 40 mg tablet Take 1 tablet by mouth at bedtime as needed. - glipiZIDE (GLUCOTROL XL) 2.5 mg 24 hr tablet Take 1 tablet by mouth once daily. - ONETOUCH ULTRA TEST test strip Use as directed to check glucose 1 time daily. E11.9, non-insulin dependent. - ONETOUCH ULTRASOFT LANCETS Use as directed to check glucose 1 times daily.E11.9, non-insulin dependent. - tirzepatide (MOUNJARO) 5 mg/0.5 mL pen injector Inject 5 mg subcutaneously one time a week. - iv contrast (will be provided with radiology test) CT ABD/PEL -Inject, intravenously, once for 1 dose.No IV access, insert saline lock prior to the beginning of sedation, infusion, injection of imaging exam. Discontinue saline lock post exam. If Pt. has a central line or IVAD, may access for administration according to line specific nursing protocol. Once exam is complete flush line and de-access according to line specific nursing protocol in the CT contrast administration guidelines link. - enteric contrast (will be provided with radiology test) For CT ABD/PEL W IVCON Routine order Administer, As Directed One Time Only, via Oral, Rectal, both Oral and Rectal, Enteric Tube, Stoma or Indwelling Catheter, Enteric Contrast as designated per enteric contrast guidelines - neomycin 500 mg tablet Take 2 tablets by mouth as directed. Take 2 tablet at 6pm, 7pm, and 11pm the evening prior to surgery. - losartan (COZAAR) 50 mg tablet Take 50 mg by mouth once daily. - metoprolol tartrate, short acting, (LOPRESSOR) 25 mg tablet Take 25 mg by mouth once daily. 1/2 tab - furosemide (LASIX) 40 mg tablet Take 1 tablet by mouth once daily. - sucralfate (CARAFATE) 100 mg/mL suspension Take 10 mL by mouth two times a day. Take on empty stomach and avoid eating or drinking for 30 mins after taking. - levothyroxine (SYNTHROID) 200 mcg tablet Take one tablet Monday through Monday,and half a pill on Saturdays and none on Sundays. - Blood-Glucose Meter (ONETOUCH ULTRA2 METER) monitoring kit Use to test blood sugar daily, DX: E11.9, NIDDM - omeprazole (PRILOSEC) 40 mg capsule TAKE 1 CAPSULE BY MOUTH ONCE DAILY - losartan (COZAAR) 25 mg tablet Take 0.5 tablets by mouth once daily. - flecainide (TAMBOCOR) 100 mg tablet Take 1 tablet by mouth every 12 hours. - apixaban (ELIQUIS) 5 mg tab(s) Take 1 tablet by mouth twice daily. - potassium chloride (K-TAB) 10 mEq tablet Take 1 tablet by mouth once daily. - traMADol (ULTRAM) 50 mg tablet Take 1 tablet by mouth as needed for pain. - albuterol HFA (PROVENTIL HFA, VENTOLIN HFA) 90 mcg/actuation inhaler Inhale 2 puffs as instructed every 4 hours as needed for wheezing/shortness of breath. - golimumab (SIMPONI ARIA INTRAVENOUS) Inject intravenously every 8 weeks. 2mg/kg (242mg) - CPAP - celecoxib (CELEBREX) 200 mg capsule Take 1 capsule by mouth once daily. Problem List As Of Date 05/21/2025 Noted Resolved History of left breast cancer [Z85.3] 07/12/2004 LUMP OR MASS IN BREAST [N63.0] 09/27/2004 DEEP VENOUS PHLEBITIS-LEG NEC [I80.299] Right knee injury [S89.91XA] 10/03/2012 Right wrist pain [M25.531] 10/03/2012 Tear of right meniscus as current injury [S83.2*10/03/2012 07/08/2019 Left-sided chest wall pain [R07.89] 07/17/2016 11/11/2020 Mass on back [R22.2] 1 (more content not included)... Normal [facility] Colonoscopyon 05-21-2025 Colonoscopy [facility] Gastrointestinal Endoscopy Patient Name: Alexandra Bella Procedure Date: 05/21/2025 12:01 PM Date of : 1955 Admit Type: Outpatient Age: 69 Room: [place] [address] Gender: Female Note Status: Finalized Attending MD: Marlon Cesar MD, [id number] Procedure: Colonoscopy Indications: Screening for colorectal malignant neoplasm Providers: Marlon Cesar MD, Brigid Ma, RN, Brigid Richardson RN Patient Profile: This is a 69 year old female. Refer to note in patient chart for documentation of history and physical. Last Colonoscopy: several years ago. Referring Physician: Marlon Cesar MD (Referring MD) Medicines: Monitored Anesthesia Care Complications: No immediate complications. Procedure: Pre-Anesthesia Assessment: - Prior to the procedure, a History and Physical was performed, and patient medications and allergies were reviewed. The patient is competent. The risks and benefits of the procedure and the sedation options and risks were discussed with the patient. All questions were answered and informed consent was obtained. Patient identification and proposed procedure were verified by the physician in the pre-procedure area. Mental Status Examination: alert and oriented. Airway Examination: normal oropharyngeal airway and neck mobility. Respiratory Examination: clear to auscultation. CV Examination: normal. Prophylactic Antibiotics: The patient does not require prophylactic antibiotics. Prior Anticoagulants: The patient has taken no anticoagulant or antiplatelet agents. ASA Grade Assessment: II - A patient with mild systemic disease. After reviewing the risks and benefits, the patient was deemed in satisfactory condition to undergo the procedure. The anesthesia plan was to use moderate sedation / analgesia (conscious sedation). Immediately prior to administration of medications, the patient was re-assessed for adequacy to receive sedatives. The heart rate, respiratory rate, oxygen saturations, blood pressure, adequacy of pulmonary ventilation, and response to care were monitored throughout the procedure. The physical status of the patient was re-assessed after the procedure. After I obtained informed consent, the scope was passed under direct vision. Throughout the procedure, the patient's blood pressure, pulse, and oxygen saturations were monitored continuously. The Colonoscope was introduced through the anus and advanced to the cecum, identified by appendiceal orifice and ileocecal valve. The colonoscopy was performed without difficulty. The patient tolerated the procedure well. The quality of the bowel preparation was good. The ileocecal valve, appendiceal orifice, and rectum were photographed. Scope Withdrawal Time: 0 hours 2 minutes 48 seconds Moderate Sedation: MAC anesthesia was administered by the anesthesia team. MAC anesthesia was administered by the anesthesia team. MAC anesthesia was administered by the anesthesia team. Total Procedure Duration: 0 hours 4 minutes 57 seconds Findings: The entire examined colon appeared normal. Impression: - The entire examined colon is normal. - No specimens collected. Recommendation: - Patient has a contact number available for emergencies. The signs and symptoms of potential delayed complications were discussed with the patient. Return to normal activities tomorrow. Written discharge instructions were provided to the patient. - Resume regular diet today. - Continue present medications. - Repeat colonoscopy in 10 years for screening purposes. Procedure Code(s): --- Professional --- 39896, Colonoscopy, flexible; diagnostic, including collection of specimen(s) by brushing or washing, when performed (separate procedure) CPT copyright 2020 [employer]. All rights reserved. The codes documented in this report are preliminary and upon principle industrial hygienist review may be revised to meet current compliance requirements. Attending Participation: I personally performed the entire procedure. Scope In: 12:18:56 PM Scope Out: 12:23:53 PM MD Marlon Mayorga MD 05/21/2025 12:28:57 PM This report has been signed electronically by Marlon Cesar MD Number of Addenda: 0 Note Initiated On: 05/21/2025 12:01 PM Estimated Blood Loss: Estimated blood loss: none. Normal [facility] Flexible sigmoidoscopy study on 05-21-2025 [facility] Gastrointestinal Endoscopy Patient Name: Alexandra Bella Procedure Date: 05/21/2025 12:01 PM Date of : 1955 Admit Type: Outpatient Age: 69 Room: [place] [address] Gender: Female Note Status: Finalized Attending MD: Marlon Cesar MD, [id number] Procedure: Colonoscopy Indications: Screening for colorectal malignant neoplasm Providers: Marlon Cesar MD, Brigid Ma RN, Brigid Richardson RN Patient Profile: This is a 69 year old female. Refer to note in patient chart for documentation of history and physical. Last Colonoscopy: several years ago. Referring Physician: Marlon Cesar MD (Referring MD) Medicines: Monitored Anesthesia Care Complications: No immediate complications. Procedure: Pre-Anesthesia Assessment: - Prior to the procedure, a History and Physical was performed, and patient medications and allergies were reviewed. The patient is competent. The risks and benefits of the procedure and the sedation options and risks were discussed with the patient. All questions were answered and informed consent was obtained. Patient identification and proposed procedure were verified by the physician in the pre-procedure area. Mental Status Examination: alert and oriented. Airway Examination: normal oropharyngeal airway and neck mobility. Respiratory Examination: clear to auscultation. CV Examination: normal. Prophylactic Antibiotics: The patient does not require prophylactic antibiotics. Prior Anticoagulants: The patient has taken no anticoagulant or antiplatelet agents. ASA Grade Assessment: II - A patient with mild systemic disease. After reviewing the risks and benefits, the patient was deemed in satisfactory condition to undergo the procedure. The anesthesia plan was to use moderate sedation / analgesia (conscious sedation). Immediately prior to administration of medications, the patient was re-assessed for adequacy to receive sedatives. The heart rate, respiratory rate, oxygen saturations, blood pressure, adequacy of pulmonary ventilation, and response to care were monitored throughout the procedure. The physical status of the patient was re-assessed after the procedure. After I obtained informed consent, the scope was passed under direct vision. Throughout the procedure, the patient's blood pressure, pulse, and oxygen saturations were monitored continuously. The Colonoscope was introduced through the anus and advanced to the cecum, identified by appendiceal orifice and ileocecal valve. The colonoscopy was performed without difficulty. The patient tolerated the procedure well. The quality of the bowel preparation was good. The ileocecal valve, appendiceal orifice, and rectum were photographed. Scope Withdrawal Time: 0 hours 2 minutes 48 seconds Moderate Sedation: MAC anesthesia was administered by the anesthesia team. MAC anesthesia was administered by the anesthesia team. MAC anesthesia was administered by the anesthesia team. Total Procedure Duration: 0 hours 4 minutes 57 seconds Findings: The entire examined colon appeared normal. Impression: - The entire examined colon is normal. - No specimens collected. Recommendation: - Patient has a contact number available for emergencies. The signs and symptoms of potential delayed complications were discussed with the patient. Return to normal activities tomorrow. Written discharge instructions were provided to (more content not included)... PROVATION [facility] Radiology [facility]ative[facility] GLUCOSE, BLOOD (POC)on 05-21 Glucose [Mass/Vol] 128 mg/dL Abnormal 74 - 99 mg/dL [facility] Comment on above: Location:[facility], [address] [place], [place], [address] The Accu-Chek Inform II glucose meter has not been approved for testing on patients receiving intensive medical intervention or therapy and results from this point of care glucose test should not be used for patient management decisions in these cases. Inaccurate results may also occur from other interfering factors, such as N-acetylcysteine (blood concentrations of greater than 5mg/dL), galactose, extremes of hematocrit (<10 or >65), or high doses of ascorbic acid (vitamin C) greater than 3mg/dL. Consider alternate testing mechanisms (e.g. core lab, blood gas instrument) in the above situations. Interpretation and review of laboratory results Abnormal [facility] Glucose [Mass/Vol] 136 mg/dL Abnormal 74 - 99 mg/dL [facility] Comment on above: Location:[facility] [place], [address] [address], [place], [facility] The Accu-Chek Inform II glucose meter has not been approved for testing on patients receiving intensive medical intervention or therapy and results from this point of care glucose test should not be used for patient management decisions in these cases. Inaccurate results may also occur from other interfering factors, such as N-acetylcysteine (blood concentrations of greater than 5mg/dL), galactose, extremes of hematocrit (<10 or >65), or high doses of ascorbic acid (vitamin C) greater than 3mg/dL. Consider alternate testing mechanisms (e.g. core lab, blood gas instrument) in the above situations. Interpretation and review of laboratory results Abnormal [facility] Ignacio 05-20-2025 DEVON Telephone (ENDMED) -------- ALEXANDRA BELLA ([id number]) 1955 F Date Time Provider Department 05/20/25 ELICEO AMBRIZ During your visit today, we recorded the following information about you: Corrie Alejandro RN 05/20/2025 11:28 AM Signed Patient called, state's she is on a clear liquid diet today prepping for Colonoscopy scheduled for tomorrow 05/21/25. She will then be NPO tomorrow AM. Following Colonoscopy she will remain on clear liquid diet for all of 05/21/25 in preparation for surgery on 05/22/25, she will be NPO the AM of 05/22/25. She has questions for today and tomorrow regarding her Glipizide. Recommended she take her Glipizide today as prescribed. She will be taking in "food" in the liquid form so she will need her glucose to be controlled. She will hold her Glipizide tomorrow AM for her Colonoscopy. After her Colonoscopy she is allowed her clear liquids for the remainder of the day, instructed her to take her Glipizide as long as it is during the day as it likely will be as her Colonoscopy is early tomorrow. She will need to keep her glucose lower in preparation for surgery. She needs to avoid high spikes in glucose for better preparation for anesthesia. She will then hold Glipizide the AM of surgery 05/22/25 as advised by her surgeon. From there recommended she follow direction by her surgeon and inpatient providers. She stated understanding and accepting of information. Closed. Corrie Alejandro RN 05/23/2025 2:13 PM Signed Patient called 's her GI surgery has been cancelled. She was told that it was deemed not necessary, the antibiotics were enough. She was supposed to have a colostomy following surgery (temporary). She was instructed that she can resume "normal life" She would like to go back on the Mounjaro. She state' she was told she can resume the Mounjaro. She was not provided a specific clearance for this but that if Eliceo needs this from GI her doctor is Dr. Cesar (see Epic). She did so well with the Mounjro (lost 30 lbs) and dropped her A1c so well. Please review and advise. Eliceo Ambriz APRN.SERVANDO 05/23/2025 2:25 PM Signed She can resume Mounjaro 5 mg weekly. I will resent the script. Thank you Eliceo Ambriz APRN.SERVANDO 05/23/2025 2:25 PM Signed Addended by: ELICEO AMBRIZ on: 05/23/2025 02:25 PM Modules accepted: Orders Marissa Tim RN 05/28/2025 3:26 PM Signed DEUS message sent to the patient. Keep Open Until message is read. Marissa Tim RN 05/29/2025 9:42 AM Signed Patient read DEUS message on 05/28/25 at 1530. Closed Allergies As of Date: 05/20/2025 Noted Allergy Reaction ADHESIVE TAPE 01/07/2002 Comments: rash AVELOX (MOXIFLOXACIN HCL) 02/16/2009 Comments: Heart race BIAXIN (CLARITHROMYCIN) 02/17/2009 4 - Hives 8 - GI Upset ERYC (ERYTHROMYCIN) 02/16/2009 7 - Swelling METFORMIN 05/25/2022 8 - GI Upset Comments: Throwing up, Diarrhea PENICILLINS 07/07/2003 QUINOLONES 07/12/2004 Comments: Avelox REMICADE (INFLIXIMAB) 10/21/2020 12 - Shortness of Breath SPIRONOLACTONE 05/14/2020 5 - Intolerance Comments: Headaches SUTURES 11/28/2023 14 - Other: See Comments Comments: Suture do not dissolve DEMEROL (MEPERIDINE (PF)) 03/14/2012 14 - Other: See Comments Comments: Arm swelled up locally and turned red. Date Reviewed: 04/23/2025 Reviewed by: Christine Lobo LPN - Fully Assessed Reason for Visit: Patient Question [1477] Visit Diagnosis:Type 2 diabetes mellitus with diabetic polyneuropathy, without long-term current use of insulin (HCC) [E11.42] Order(s):tirzepatide (MOUNJARO) 5 mg/0.5 mL pen injectorInject 5 mg subcutaneously one time a week.Disp: 2 mLRfl: 5 Prescriptions as of 05/29/2025 - tirzepatide (MOUNJARO) 5 mg/0.5 mL pen injector Inject 5 mg subcutaneously one time a week. - cholestyramine-sucrose (QUESTRAN) 4 gram powder Take 4 g by mouth three times a week. Every Monday, Monday and Monday. - omeprazole (PRILOSEC) 40 mg capsule Take 1 capsule by mouth two times a day. - glipiZIDE (GLUCOTROL XL) 2.5 mg 24 hr tablet Take 1 tablet by mouth once daily. - ONETOUCH ULTRA TEST test strip Use as directed to check glucose 1 time daily. E11.9, non-insulin dependent. - ONETOUCH ULTRASOFT LANCETS Use as directed to check glucose 1 times daily.E11.9, non-insulin dependent. - iv contrast (will be provided with radiology test) CT ABD/PEL -Inject, intravenously, once for 1 dose.No IV access, insert saline lock prior to the beginning of sedation, infusion, injection of imaging exam. Discontinue saline lock post exam. If Pt. has a central line or IVAD, may access for administration according to line specific nursing protocol. Once exam is complete flush line and de-access according to line specific nursing protocol in the CT contrast administration guidelines link. - enteric contrast (more content not included)... [facility] -------- ALEXANDRA BELLA ([id number]) 1955 F Date Time Provider Department 05/20/25 MARLON CESAR [facility] During your visit today, we recorded the following information about you: Joon Bishop 05/20/2025 9:29 AM Signed Alexandra is calling Marlon Cesar MD today with concern regarding insulin prior to her colonoscopy on 05/21 and surgery on 05/22. Patient has been identified by name and birthdate. Duration of symptoms: N/A Person calling: self Call patient at: on cell [phone] (home) [phone] (cell) Was an appointment scheduled: No Closing statement: Symptom Call: Thank you for calling [facility], your call is very important. A nurse will call in approximately 2-4 hours during business hours. If this is an emergency, please contact 911. Mateus Hathaway RN 05/20/2025 11:30 AM Signed Returned call. No answer. Left voice message. Waiting on return call to discuss. Allergies As of Date: 05/20/2025 Noted Allergy Reaction ADHESIVE TAPE 01/07/2002 Comments: rash AVELOX (MOXIFLOXACIN HCL) 02/16/2009 Comments: Heart race BIAXIN (CLARITHROMYCIN) 02/17/2009 4 - Hives 8 - GI Upset ERYC (ERYTHROMYCIN) 02/16/2009 7 - Swelling METFORMIN 05/25/2022 8 - GI Upset Comments: Throwing up, Diarrhea PENICILLINS 07/07/2003 QUINOLONES 07/12/2004 Comments: Avelox REMICADE (INFLIXIMAB) 10/21/2020 12 - Shortness of Breath SPIRONOLACTONE 05/14/2020 5 - Intolerance Comments: Headaches SUTURES 11/28/2023 14 - Other: See Comments Comments: Suture do not dissolve DEMEROL (MEPERIDINE (PF)) 03/14/2012 14 - Other: See Comments Comments: Arm swelled up locally and turned red. Date Reviewed: 04/23/2025 Reviewed by: Christine Lobo LPN - Fully Assessed Reason for Visit: Patient Question [1477] Prescriptions as of 05/20/2025 - omeprazole (PRILOSEC) 40 mg capsule Take 1 capsule by mouth two times a day. - famotidine (PEPCID) 40 mg tablet Take 1 tablet by mouth at bedtime as needed. - glipiZIDE (GLUCOTROL XL) 2.5 mg 24 hr tablet Take 1 tablet by mouth once daily. - ONETOUCH ULTRA TEST test strip Use as directed to check glucose 1 time daily. E11.9, non-insulin dependent. - ONETOUCH ULTRASOFT LANCETS Use as directed to check glucose 1 times daily.E11.9, non-insulin dependent. - tirzepatide (MOUNJARO) 5 mg/0.5 mL pen injector Inject 5 mg subcutaneously one time a week. - iv contrast (will be provided with radiology test) CT ABD/PEL -Inject, intravenously, once for 1 dose.No IV access, insert saline lock prior to the beginning of sedation, infusion, injection of imaging exam. Discontinue saline lock post exam. If Pt. has a central line or IVAD, may access for administration according to line specific nursing protocol. Once exam is complete flush line and de-access according to line specific nursing protocol in the CT contrast administration guidelines link. - enteric contrast (will be provided with radiology test) For CT ABD/PEL W IVCON Routine order Administer, As Directed One Time Only, via Oral, Rectal, both Oral and Rectal, Enteric Tube, Stoma or Indwelling Catheter, Enteric Contrast as designated per enteric contrast guidelines - neomycin 500 mg tablet Take 2 tablets by mouth as directed. Take 2 tablet at 6pm, 7pm, and 11pm the evening prior to surgery. - losartan (COZAAR) 50 mg tablet Take 50 mg by mouth once daily. - metoprolol tartrate, short acting, (LOPRESSOR) 25 mg tablet Take 25 mg by mouth once daily. 1/2 tab - furosemide (LASIX) 40 mg tablet Take 1 tablet by mouth once daily. - sucralfate (CARAFATE) 100 mg/mL suspension Take 10 mL by mouth two times a day. Take on empty stomach and avoid eating or drinking for 30 mins after taking. - levothyroxine (SYNTHROID) 200 mcg tablet Take one tablet Monday through Monday,and half a pill on Saturdays and none on Sundays. - Blood-Glucose Meter (XormisUCH ULTRA2 METER) monitoring kit Use to test blood sugar daily, DX: E11.9, NIDDM - omeprazole (PRILOSEC) 40 mg capsule TAKE 1 CAPSULE BY MOUTH ONCE DAILY - losartan (COZAAR) 25 mg tablet Take 0.5 tablets by mouth once daily. - flecainide (TAMBOCOR) 100 mg tablet Take 1 tablet by mouth every 12 hours. - apixaban (ELIQUIS) 5 mg tab(s) Take 1 tablet by mouth twice daily. - potassium chloride (K-TAB) 10 mEq tablet Take 1 tablet by mouth once daily. - traMADol (ULTRAM) 50 mg tablet Take 1 tablet by mouth as needed for pain. - albuterol HFA (PROVENTIL HFA, VENTOLIN HFA) 90 mcg/actuation inhaler Inhale 2 puffs as instructed every 4 hours as needed for wheezing/shortness of breath. - golimumab (SIMPONI ARIA INTRAVENOUS) Inject intravenously every 8 weeks. 2mg/kg (242mg) - CPAP - celecoxib (CELEBREX) 200 mg capsule Take 1 capsule by mouth once daily. Problem List As Of Date 05/20/2025 Noted Resolved History of left (more content not included)... Normal [facility] CBC W Auto Differential pane l (Bld)on 04-23-2025 Basophils (Bld) [#/Vol] 0.03 10*3/uL Normal <0.11 [facility] Comment on above: Order Comment: Speci men Type: BLOOD SPECIMEN Ordering Facility: [facility] Address: [address] [place] [address] Performed By: #### 5 7021-8 #### [facility] CLIA [id number] [address] [place] [address] [place] Basophils/100 WBC (Bld) 0.5 % Normal [facility] Comment on above: Order Comment: Speci men Type: BLOOD SPECIMEN Ordering Facility: [facility] Address: [address] [place] [address] Performed By: #### 5 7021-8 #### [facility] CLIA [id number] [address] [place] [address] [place] Differential cell count method Nom (Bld) Auto Normal [facility] Comment on above: Order Comment: Speci men Type: BLOOD SPECIMEN Ordering Facility: [facility] Address: [address] [place] [address] Performed By: #### 5 7021-8 #### [facility] CLIA [id number] [address] [place] [address] [place] Eosinophils (Bld) [#/Vol] 0.17 10*3/uL Normal <0.46 [facility] Comment on above: Order Comment: Speci men Type: BLOOD SPECIMEN Ordering Facility: [facility] Address: [address] [place] [address] Performed By: #### 5 7021-8 #### [facility] CLIA [id number] [address] [place] [address] [place] Eosinophils/100 WBC (Bld) 2.9 % Normal [facility] Comment on above: Order Comment: Speci men Type: BLOOD SPECIMEN Ordering Facility: [facility] Address: [address] [place] [address] Performed By: #### 5 7021-8 #### [facility] CLIA [id number] [address] [place] [address] [place] Erythrocyte distribution width (RBC) [Ratio] 13.4 % Normal 11.5-15.0 [facility] Comment on above: Order Comment: Speci men Type: BLOOD SPECIMEN Ordering Facility: [facility] Address: [address] [place] [address] Performed By: #### 5 7021-8 #### [facility] CLIA [id number] [address] [place] [address] [place] Hematocrit (Bld) [Volume fraction] 39.6 % Normal 36.0-46.0 [facility] Comment on above: Order Comment: Speci men Type: BLOOD SPECIMEN Ordering Facility: [facility] Address: [address] [place] [address] Performed By: #### 5 7021-8 #### [facility] CLIA [id number] [address] [place] Hemoglobin (Bld) [Mass/Vol] 13.0 g/dL Normal 11.5-15.5 [facility] Comment on above: Order Comment: Speci men Type: BLOOD SPECIMEN Ordering Facility: [facility] Address: [address] [place] [address] Performed By: #### 5 7021-8 #### [facility] CLIA [id number] [address] [place] Immature granulocytes (Bld) [#/Vol] 10*3/uL Normal <0.10 [facility] Comment on above: Order Comment: Speci men Type: BLOOD SPECIMEN Ordering Facility: [facility] Address: [address] [place] [address] Performed By: #### 5 7021-8 #### [facility] CLIA [id number] [address] [place] Immature granulocytes/100 WBC (Bld) 0.3 % Normal [facility] Comment on above: Order Comment: Speci men Type: BLOOD SPECIMEN Ordering Facility: [facility] Address: [address] [place] [address] Performed By: #### 5 7021-8 #### [facility] CLIA [id number] [address] Lymphocytes (Bld) [#/Vol] 1.88 10*3/uL Normal 1.00-4.00 [facility] Comment on above: Order Comment: Speci men Type: BLOOD SPECIMEN Ordering Facility: [facility] Address: [address] [place] [address] Performed By: #### 5 7021-8 #### [facility] CLIA [id number] [address] Lymphocytes/100 WBC (Bld) 31.8 % Normal [facility] Comment on above: Order Comment: Speci men Type: BLOOD SPECIMEN Ordering Facility: [facility] Address: [address] [place] [address] Performed By: #### 5 7021-8 #### [facility] CLIA [id number] [address] MCH (RBC) [Entitic mass] 29.3 pg Normal 26.0-34.0 [facility] Comment on above: Order Comment: Speci men Type: BLOOD SPECIMEN Ordering Facility: [facility] Address: [address] [place] [address] Performed By: #### 5 7021-8 #### [facility] CLIA [id number] [address] MCHC (RBC) [Mass/Vol] 32.8 g/dL Normal 30.5-36.0 [facility] Comment on above: Order Comment: Speci men Type: BLOOD SPECIMEN Ordering Facility: [facility] Address: [address] [place] [address] Performed By: #### 5 7021-8 #### [facility] CLIA [id number] [address] MCV (RBC) [Entitic vol] 89.2 fL Normal 80.0-100.0 [facility] Comment on above: Order Comment: Speci men Type: BLOOD SPECIMEN Ordering Facility: [facility] Address: [address] [place] [address] Performed By: #### 5 7021-8 #### [facility] CLIA [id number] [address] [place] [address] [place] Monocytes (Bld) [#/Vol] 0.31 10*3/uL Normal <0.87 [facility] Comment on above: Order Comment: Speci men Type: BLOOD SPECIMEN [facility] [facility] Address: [address] [place] [address] Performed By: #### 5 7021-8 #### [facility] CLIA [id number] [address] Monocytes/100 WBC (Bld) 5.2 % Normal [facility] Comment on above: Order Comment: Speci men Type: BLOOD SPECIMEN Ordering Facility: [facility] Address: [address] [place] [address] Performed By: #### 5 7021-8 #### [facility] CLIA [id number] [address] [place] [address] [place] Neutrophils (Bld) [#/Vol] 3.50 10*3/uL Normal 1.45-7.50 [facility] Comment on above: Order Comment: Speci men Type: BLOOD SPECIMEN Ordering Facility: [facility] Address: [address] [place] [address] Performed By: #### 5 7021-8 #### [facility] CLIA [id number] [address] Neutrophils/100 WBC (Bld) 59.3 % Normal [facility] Comment on above: Order Comment: Speci men Type: BLOOD SPECIMEN Ordering Facility: [facility] Address: [address] [place] [address] Performed By: #### 5 7021-8 #### [facility] CLIA [id number] [address] [place] [address] [place] Nucleated RBC (Bld) [#/Vol] 10*3/uL Normal <0.01 [facility] Comment on above: Order Comment: Speci men Type: BLOOD SPECIMEN Ordering Facility: [facility] Address: [address] [place] [address] Performed By: #### 5 7021-8 #### [facility] CLIA [id number] [address] [place] [address] [place] Nucleated RBC/100 WBC (Bld) [Ratio] 0.0 /100 WBC Normal [facility] Comment on above: Order Comment: Speci men Type: BLOOD SPECIMEN Ordering Facility: [facility] Address: [address] [place] [address] Performed By: #### 5 7021-8 #### [facility] CLIA [id number] [address] [place] [address] [place] Platelet mean volume (Bld) [Entitic vol] 10.8 fL Normal 9.0-12.7 [facility] Comment on above: Order Comment: Speci men Type: BLOOD SPECIMEN Ordering Facility: [facility] Address: [address] [place] [address] Performed By: #### 5 7021-8 #### [facility] CLIA [id number] [address] [place] Platelets (Bld) [#/Vol] 205 10*3/uL Normal 150-400 [facility] Comment on above: Order Comment: Speci men Type: BLOOD SPECIMEN Ordering Facility: [facility] Address: [address] [place] [address] Performed By: #### 5 7021-8 #### [facility] CLIA [id number] [address] [place] [address] [place] RBC (Bld) [#/Vol] 4.44 10*6/uL Normal 3.90-5.20 [facility] Comment on above: Order Comment: Speci men Type: BLOOD SPECIMEN Ordering Facility: [facility] Address: [address] [place] [address] Performed By: #### 5 7021-8 #### [facility] CLIA [id number] [address] [place] WBC (Bld) [#/Vol] 5.91 10*3/uL Normal 3.70-11.00 [facility] Comment on above: Order Comment: Speci men Type: BLOOD SPECIMEN Ordering Facility: [facility] Address: [address] [place] [address] Performed By: #### 5 7021-8 #### [facility] [id number] [address] [place] [address] [facility] Ignacio 04-23-2025 CNPN Telephone (PREANME) -------- ALEXANDRA BELLA ([id number]) 1955 F Date Time Provider Department 04/23/25 MARTINE BLAKE PREANME During your visit today, we recorded the following information about you: Martine Blake PA-C 04/23/2025 1:[address] Esteban, I saw this mutual patient for their Pre-Anesthesia visit on 04/23/2025. Alexandra Bella is scheduled for Left - LAPAROSCOPIC HAND ASSISTED COLECTOMY with Dr. Marlon Cesar on 05/22/2025. Patient is having her CT ab/pelv performed this afternoon. During her PACC visit she did mention that her secretary receptionist at [place] expressed some concerns about uncontrolled GERD based on some morning cough AND posterior oropharyngeal erythema. Patient is currently taking omeprazole daily and has added pepcid in the evening over the past few months. She also uses carafate for symptom relief. She is going for a colonoscopy on 05/21/[address] Cesar, the day before her surgery; her last EGD with yourself on 11/01/2022 is as follows: - The examined portion of the ileum was normal. - Mild diverticulosis in the sigmoid colon. There was evidence of diverticular spasm. Asya-diverticular erythema was seen. Petechia were visualized in association with the diverticular opening. There was no evidence of diverticular bleeding. - The examination was otherwise normal. - The distal rectum and anal verge are normal on retroflexion view. - Biopsies were taken with a cold forceps from the right colon and left colon for evaluation of microscopic colitis. Just wanted to give you a patient update in case you wanted to adjust her regimen or have her f/u in the office. Thanks! Martine Blake PA-C [facility] Office: Rosy Esteban MD 04/24/2025 1:46 PM Signed Recommend increasing the dose of Omeprazole to 40 mg bid especially before and after surgery. Take Pepcid 40 mg at bedtime if needed. Rosy Esteban MD Allergies As of Date: 04/23/2025 Noted Allergy Reaction ADHESIVE TAPE 01/07/2002 Comments: rash AVELOX (MOXIFLOXACIN HCL) 02/16/2009 Comments: Heart race BIAXIN (CLARITHROMYCIN) 02/17/2009 4 - Hives 8 - GI Upset ERYC (ERYTHROMYCIN) 02/16/2009 7 - Swelling METFORMIN 05/25/2022 8 - GI Upset Comments: Throwing up, Diarrhea PENICILLINS 07/07/2003 QUINOLONES 07/12/2004 Comments: Avelox REMICADE (INFLIXIMAB) 10/21/2020 12 - Shortness of Breath SPIRONOLACTONE 05/14/2020 5 - Intolerance Comments: Headaches SUTURES 11/28/2023 14 - Other: See Comments Comments: Suture do not dissolve DEMEROL (MEPERIDINE (PF)) 03/14/2012 14 - Other: See Comments Comments: Arm swelled up locally and turned red. Date Reviewed: 04/23/2025 Reviewed by: Christine Lobo LPN - Fully Assessed Reason for Visit: Patient Update [1234] Prescriptions as of 04/24/2025 - omeprazole (PRILOSEC) 40 mg capsule Take 1 capsule by mouth two times a day. - famotidine (PEPCID) 40 mg tablet Take 1 tablet by mouth at bedtime as needed. - glipiZIDE (GLUCOTROL XL) 2.5 mg 24 hr tablet Take 1 tablet by mouth once daily. - ONETOUCH ULTRA TEST test strip Use as directed to check glucose 1 time daily. E11.9, non-insulin dependent. - ONETOUCH ULTRASOFT LANCETS Use as directed to check glucose 1 times daily.E11.9, non-insulin dependent. - tirzepatide (MOUNJARO) 5 mg/0.5 mL pen injector Inject 5 mg subcutaneously one time a week. - iv contrast (will be provided with radiology test) CT ABD/PEL -Inject, intravenously, once for 1 dose.No IV access, insert saline lock prior to the beginning of sedation, infusion, injection of imaging exam. Discontinue saline lock post exam. If Pt. has a central line or IVAD, may access for administration according to line specific nursing protocol. Once exam is complete flush line and de-access according to line specific nursing protocol in the CT contrast administration guidelines link. - enteric contrast (will be provided with radiology test) For CT ABD/PEL W IVCON Routine order Administer, As Directed One Time Only, via Oral, Rectal, both Oral and Rectal, Enteric Tube, Stoma or Indwelling Catheter, Enteric Contrast as designated per enteric contrast guidelines - neomycin 500 mg tablet Take 2 tablets by mouth as directed. Take 2 tablet at 6pm, 7pm, and 11pm the evening prior to surgery. - losartan (COZAAR) 50 mg tablet Take 50 mg by mouth once daily. - metoprolol tartrate, short acting, (LOPRESSOR) 25 mg tablet Take 25 mg by mouth once daily. 1/2 tab - furosemide (LASIX) 40 mg tablet Take 1 tablet by mouth once daily. - sucralfate (CARAFATE) 100 mg/mL suspension Take 10 mL by mouth two times a day. Take on empty stomach and avoid eating or drinking for 30 mins after taking. - levothyroxine (SYNTHROID) 200 mcg tablet Take one tablet Monday through Monday,and half a pill on Saturdays and none on (more content not included)... [facility] CT ABD/PEL W IVCONon 025 CT ABD/PEL W IVCON * * *Final Report* * * DATE OF EXAM: Apr 23 2025 3:18PM [facility] 0530 - CT ABD/PEL W IVCON / PROCEDURE REASON: multiple diagnoses * * * * Physician Interpretation * * * * EXAMINATION: CT ABDOMEN AND PELVIS WITH IV CONTRAST CLINICAL HISTORY: Diverticulitis follow-up TECHNIQUE: CT of the abdomen and pelvis was performed using standard technique, scanning from just above the dome of the diaphragm to the symphysis pubis. MQ: CTAP_3 Contrast: IV: 100 ml of Omnipaque 350 Oral: 25 ml of Omni 240 10-25ml diluted with water CT Radiation dose: Integrated Dose-length product (DLP) for this visit = 1185.79 mGy*cm. CT Dose Reduction Employed: Automated exposure control(AEC) and iterative recon COMPARISON: 03/17/2025 RESULT: Liver: Subcentimeter right hepatic lobe hypodensity (2:19), stable and too small to characterize but likely benign. Biliary: No bile duct dilation. Gallbladder is absent. Spleen: No mass. No splenomegaly. Pancreas: No mass or duct dilation. Adrenals: No mass. Kidneys: No mass, calculus or hydronephrosis. GI tract: Resolution of inflammatory changes adjacent to diverticula the sigmoid colon. Small amount of postinfectious scarring likely extending from the sigmoid colon. No pericolonic abscess. No dilated or thickened bowel. Lymph nodes: Stable 1.4 cm periportal lymph node. Mesentery/Peritoneum: No ascites or mass. Retroperitoneum: No mass. Vasculature: - Abdominal aorta and iliac arteries: Atherosclerotic calcifications without aneurysm. - Celiac and SMA: Patent without stenosis. - Portal venous system (SMV, splenic vein, portal vein and branches): Patent. - Hepatic veins: Patent. - Other: Infrarenal IVC filter present Pelvis: No mass, ascites or fluid collection. Bones/Soft Tissues: Degenerative changes. Lower thorax: Unremarkable. Localizer images: No additional findings. IMPRESSION: Resolution of sigmoid diverticulitis. No focal fluid collection or perforation. Rnp: GISELLE Transcribe Date/Time: Apr 28 2025 3:29P Dictated by : JOSE RAUL LOBO MD This examination was interpreted and the report reviewed and electronically signed by: JOSE RAUL LOBO MD on Apr 28 2025 3:38PM EST [id number] Normal [facility] Comprehensive metabolic 2000 panelon 04-23-2025 Albumin [Mass/Vol] 4.1 g/dL Normal 3.9-4.9 [facility] Comment on above: Order Comment: Speci men Type: BLOOD SPECIMEN Ordering Facility: [facility] Address: [address] [place] [address] Performed By: #### 1 9123-9, 18156-2 #### [facility] CLIA [id number] [address] [place] [address] [place] ALP [Catalytic activity/Vol] 95 U/L Normal 34-123 [facility] Comment on above: Order Comment: Speci men Type: BLOOD SPECIMEN Ordering Facility: [facility] Address: [address] [place] [address] Performed By: #### 1 239, 91235-2 #### [facility] CLIA [id number] [address] [place] [address] [place] ALT [Catalytic activity/Vol] 52 U/L High 7-38 [facility] Comment on above: Order Comment: Speci men Type: BLOOD SPECIMEN Ordering Facility: [facility] Address: [address] [place] [address] Performed By: #### 1 23-9, 24228-8 #### [facility] CLIA [id number] [address] [place] [address] [place] Anion gap [Moles/Vol] 9 mmol/L Normal 8-15 [facility] Comment on above: Order Comment: Speci men Type: BLOOD SPECIMEN Ordering Facility: [facility] Address: [address] [place] [address] Performed By: #### 1 239, 08367-0 #### [facility] CLIA [id number] [address] [place] AST [Catalytic activity/Vol] 48 U/L High 13-35 [facility] Comment on above: Order Comment: Speci men Type: BLOOD SPECIMEN Ordering Facility: [facility] Address: [address] [place] [address] Performed By: #### 1 239, 04016-9 #### [facility] CLIA [id number] [address] [place] [address] [place] Bilirubin [Mass/Vol] 0.5 mg/dL Normal 0.2-1.3 [facility] Comment on above: Order Comment: Speci men Type: BLOOD SPECIMEN Ordering Facility: [facility] Address: [address] [place] [address] Performed By: #### 1 23-9, 74240-0 #### [facility] CLIA [id number] [address] [place] [address] [place] Calcium [Mass/Vol] 9.8 mg/dL Normal 8.5-10.2 [facility] Comment on above: Order Comment: Speci men Type: BLOOD SPECIMEN Ordering Facility: [facility] Address: [address] [place] [address] Performed By: #### 1 9123-9, 04741-6 #### [facility] CLIA [id number] [address] [place] [address] [place] Chloride [Moles/Vol] 107 mmol/L Normal 98-107 [facility] Comment on above: Order Comment: Speci men Type: BLOOD SPECIMEN Ordering Facility: [facility] Address: [address] [place] [address] Performed By: #### 1 9123-9, 56045-1 #### [facility] CLIA [id number] [address] [place] [address] [place] CO2 [Moles/Vol] 25 mmol/L Normal 22-30 [facility] Comment on above: Order Comment: Speci men Type: BLOOD SPECIMEN Ordering Facility: [facility] Address: [address] [place] [address] Performed By: #### 1 9123-9, 11255-2 #### [facility] CLIA [id number] [address] [place] [address] [place] Creatinine [Mass/Vol] 0.89 mg/dL Normal 0.58-0.96 [facility] Comment on above: Order Comment: Speci men Type: BLOOD SPECIMEN Ordering Facility: [facility] Address: [address] [place] [address] Performed By: #### 1 9123-9, 39124-9 #### [facility] CLIA [id number] [address] [place] [address] [place] eGFRcr SerPlBld CKD-EPI 2020 70 mL/min/1.73m??? Normal >=60 [facility] Comment on above: Order Comment: Speci men Type: BLOOD SPECIMEN Ordering Facility: [facility] Address: [address] [place] [address] Result Comment: Hortensia mated Glomerular Filtration Rate (eGFR) is calculated using the 2020 CKD-EPI creatinine equation. This equation utilizes serum creatinine, sex, and age as parameters. The creatinine assay has traceable calibration to isotope dilution-mass spectrometry. Refer to KDIGO guidelines for clinical interpretation. In patients with unstable renal function, e.g. those with acute kidney injury, the eGFR may not accurately reflect actual GFR. Performed By: #### 1 9123-9, 91044-8 #### [facility] CLIA [id number] [address] [place] [address] [place] Glucose [Mass/Vol] 185 mg/dL High 74-99 [facility] Comment on above: Order Comment: Harry lunsford Type: BLOOD SPECIMEN Ordering Facility: [facility] Address: [address] [place] [address] Result Comment: The [place] Diabetes Association (ADA) provides guidance for cutoff values for fasting glucose and random glucose. The ADA defines fasting as no caloric intake for at least 8 hours. Fasting plasma glucose results between 100 to 125 mg/dL indicate increased risk for diabetes (prediabetes). Fasting plasma glucose results greater than or equal to 126 mg/dL meet the criteria for diagnosis of diabetes. In the absence of unequivocal hyperglycemia, results should be confirmed by repeat testing. In a patient with classic symptoms of hyperglycemia or hyperglycemic crisis, random plasma glucose results greater than or equal to 200 mg/dL meet the criteria for diagnosis of diabetes. Reference: Standards of Medical Care in Diabetes 2016, [place] Diabetes Association. Diabetes Care. 2016.39(Suppl 1). Performed By: #### 1 9123-9, #### [facility] CLIA [id number] [address] [place] [address] [place] Potassium [Moles/Vol] 4.2 mmol/L Normal 3.7-5.1 [facility] Comment on above: Order Comment: Harry lunsford Type: BLOOD SPECIMEN Ordering Facility: [facility] Address: [address] [place] [address] Performed By: #### 1 9123-9, #### [facility] CLIA [id number] [address] [place] [address] [place] Protein [Mass/Vol] 7.6 g/dL Normal 6.3-8.0 [facility] Comment on above: Order Comment: Harry lunsford Type: BLOOD SPECIMEN Ordering Facility: [facility] Address: [address] [place] [id number] Performed By: #### 1 9123-9, 07804-6 #### [facility] CLIA [id number] [address] Sodium [Moles/Vol] 141 mmol/L Normal 136-144 [facility] Comment on above: Order Comment: Speci men Type: BLOOD SPECIMEN Ordering Facility: [facility] Address: [address] [place] [address] Performed By: #### 1 9123-9, 84284-1 #### [facility] CLIA [id number] [address] [place] Urea nitrogen [Mass/Vol] 15 mg/dL Normal 7-21 [facility] Comment on above: Order Comment: Speci men Type: BLOOD SPECIMEN Ordering Facility: [facility] Address: [address] [place] [address] Performed By: #### 1 9123-9, 28661-6 #### [facility] CLIA [id number] [address] [place] [address] [place] HISTORY PHYSICALon HISTORY PHYSICAL HNO ID: [id number] Author: MARTINE BLAKE PA-C Service: ? Author Type: Physician Floor Renovator Type: H&P Filed: 04/24/2025 13:59 Note Text: [facility] HISTORY AND PHYSICAL EXAMINATION SERVICE DATE: 04/23/2025 SERVICE TIME: 9:39 AM Recording using xiao qu wu you software for draft documentation of the visit was discussed with the patient/authorized sales representative publications; all questions welcomed and answered. Patient/authorized sales representative publications agreed to proceed. PRIMARY CARE PHYSICIAN: Leonora Davalos APRN.SALES AND MARKETING ASSISTANT Assessment Patient has the following medical conditions which may affect asya-operative course: 1. Type 2 diabetes mellitus with diabetic polyneuropathy, without long-term current use of insulin (HCC) (E11.42) - Most recent A1c 6.5% on 02/12; previously 7.2% in November. - Previously on Mounjaro, discontinued in anticipation of surgery; last dose approximately 3 weeks ago. - Restarted glipizide 2.5 mg. - Diabetic polyneuropathy present; previously trialed gabapentin but discontinued due to side effects. - Advised to avoid restarting Mounjaro prior to surgery. - Continue endocrinology follow-up. Hemoglobin A1C (%) Date Value 02/12/2025 6.5 11/12/2024 7.2 03/12/2020 6.4 07/06/2019 6.5 Hemoglobin A1C (POCT) (%) Date Value 04/17/2024 7.5 05/03/2023 8.6 2. Pure hypercholesterolemia (E78.00) - Not on rx, diet controlled. Cholesterol, Total (mg/dL) Date Value 11/12/2024 187 05/03/2023 223 04/14/2020 134 04/14/2020 134 HDL Cholesterol (mg/dL) Date Value 11/12/2024 41 05/03/2023 50 04/14/2020 48 04/14/2020 48 LDL Cholesterol, Calculated (mg/dL) Date Value 11/12/2024 121 05/03/2023 141 LDL (mg/dL) Date Value 06/07/2014 144 LDL Calculated (mg/dL) Date Value 04/14/2020 67 04/14/2020 67 Triglyceride (mg/dL) Date Value 11/12/2024 124 05/03/2023 162 04/14/2020 97 04/14/2020 97 3. Essential hypertension (I10) - Follows with PCP AND cardiology. Last 3 Encounter BP Readings: Date: BP: 04/23/2025 142/74 04/07/2025 124/73 03/28/2025 130/72 4. Coronary artery disease involving [place] coronary artery of [place] heart without angina pectoris (I25.10) - Does have chronic dyspnea, denies any heart palpitations, edema, chest pain, shortness of breath, syncope, or dizziness. - Cardiac catheterization in 2017; no stents placed. - Followed by Dr. Hobbs at [facility]. 5. Chronic diastolic CHF (congestive heart failure) (HCC) (I50.32) 6. Dyspnea, unspecified type (R06.00) - Well controlled with diuretic therapy; patient reports dyspnea and lower extremity edema if diuretic is missed for more than 2 days. - Last echocardiogram in 2021; patient reports more recent echocardiogram 2 months ago at [facility]. - Will obtain records from Dr. Ballesteros. 7. Paroxysmal atrial fibrillation (HCC) (I48.0) 8. snf current use of anticoagulant (Z79.01) - On Eliquis and flecainide. -Managed by cardiology Dr. Hobbs. - No recent palpitations or irregular rhythms. - Discussed prior adverse reaction to antiemetics with flecainide; will review antiemetic options for perioperative use. 9. MARILIA on CPAP (G47.33) -Compliant with bipap, advised to bring DOS. -Follows with pulmonology at [place]. 10. Post-operative nausea and vomiting (R11.2) -Pt reports PONV with previous surgeries/procedures. 11. Nonalcoholic fatty liver disease without nonalcoholic steatohepatitis (LLAMAS) (K76.0) - Liver enzymes trending down. - Most recent liver biopsy on 09/23/2021 showed mild steatosis. - Managed by Dr. Esteban. CMP: Glucose 181 04/11/2025 BUN 15 04/11/2025 Creatinine 0.80 04/11/2025 Sodium 136 04/11/2025 Potassium 4.0 04/11/2025 Chloride 100 04/11/2025 CO2 20 04/11/2025 Protein, Total 8.0 04/11/2025 Albumin 4.0 04/11/2025 Calcium 10.4 04/11/2025 Alkaline Phosphatase 118 04/11/2025 Bilirubin, Total 0.5 04/11/2025 AST 45 04/11/2025 ALT 50 04/11/2025 12. History of colorectal cancer (Z85.048) - History of colorectal cancer. - History of left breast cancer, treated with chemotherapy and radiation in 1996. 13. History of left breast cancer (Z85.3) - History of colorectal cancer. - History of left breast cancer, treated with chemotherapy and radiation in 1996. 14. History of DVT (deep vein thrombosis) (Z86.718) - History of DVT; [place] filter in place. 15. Gastroesophageal reflux disease without esophagitis (K21.9) - Chronic GERD with persistent symptoms despite omeprazole, Carafate, and Pepcid. - Recent pulmonology evaluation noted erythematous throat and recommended GI follow-up. - Last upper endoscopy in 2022. 16. Postoperative hypothyroidism (E89.0) - S/p thyroidectomy 1973. - Managed by endocrinology; most recent labs in normal range. - On Synthroid. TSH Date Value 11/12/2024 2.380 mIU/L 05/03/2023 2.280 mIU/L 03/12/2020 0.561 uIU/mL 07/06/2019 0.176 uU/ (more content not included)... [facility] TYPE + SCREENon 04-23-2025 ABO O [facility] Comment on above: Order Comment: Speci men Type: BLOOD SPECIMEN Ordering Facility: [facility] Address: [address] [place] [address] Performed By: #### 1 9123-9, 80041-6 #### [facility] CLIA [id number] [address] Rh Nom (Bld) Positive [facility] Comment on above: Order Comment: Harry lunsford Type: BLOOD SPECIMEN Ordering Facility: [facility] Address: [address] [place] [address] Performed By: #### 1 9123-9, 26989-7 #### [facility] CLIA [id number] [address] TYPE AND SCREEN EXPIRATION 04/26/2025 23:59 [facility] Comment on above: Order Comment: Harry lunsford Type: BLOOD SPECIMEN Ordering Facility: [facility] Address: [address] [place] [address] Performed By: #### 1 9123-9, 03366-7 #### [facility] CLIA [id number] [address] [place] Pulmonary Visit Reporton Pulmonary Visit Report [facility] of [address] [place] [address] OFFICE VISIT Date of Service: 04/22/25 MR#: [id number] Acct: [id number] Name: ALEXANDRA BELLA Rep #: [id number] : 1955 Provider: Ada Wheeler NP Age/Sex: 69/F Location: [facility].PMW Status: Signed Assessment and Plan Assessment and Plan (1) Sleep apnea: Status: Chronic Qualifiers: Sleep apnea type: obstructive Qualified Code(s): G47.33 - Obstructive sleep apnea (adult) (pediatric) Plan: The compliance report indicates that the apnea is well-controlled. The recent nocturnal oximetry would suggest that overall her saturation is within normal limits although at the end of the study she did have abnormal saturation present. This could be due to mask leak during that particular night. I have recommended that this test be repeated at the end of May or June after she has undergone her upcoming GI procedure that is scheduled for May. Follow up may need to be advanced if abnormal at that time. (2) Obesity: Status: Chronic Qualifiers: Obesity type: due to excess calories Obesity classification: adult class 3 (BMI >= 40) Serious obesity comorbidity presence: with serious comorbidity Body mass index: BMI 45.0-49.9 Qualified Code(s): E66.01 - Morbid (severe) obesity due to excess calories; Z68.42 - Body mass index (BMI) 45.0-49.9, adult Plan: Complicates exam, plan, care and prognosis. She has been successful with weight loss and is encouraged to continue with this regimen. (3) Dyspnea on exertion: Status: Chronic Plan: Likely due to CHF versus deconditioning as her recent PFT and CT scan were within normal limits. Her last echocardiogram showed an ejection fraction that was 55% and pulmonary artery systolic pressure at 20 mmHg so pulmonary hypertension is not in the differential. (4) Cough: Status: Acute Qualifiers: Cough type: chronic Qualified Code(s): R05.3 - Chronic cough Plan: There is no evidence on PFT or noncontrasted chest CT which would suggest that there is a pulmonary etiology for cough. The patient endorses uncontrolled acid reflux for which I believe is the etiology and recommend that she follow up with GI. (5) GERD (gastroesophageal reflux disease): Status: Acute Qualifiers: Esophagitis presence: esophagitis presence not specified Qualified Code(s): K21.9 - Gastro- esophageal reflux disease without esophagitis Plan: Uncontrolled. The relationship between suboptimal control of GERD and cough was discussed at length with patient today. Follow up with GI and undergo procedures as planned. Medications: Discontinued mometasone 200 mcg/actuation (Asmanex HFA) Discontinued Reason: Order Completed 2 puffs inhalation BID 13 grams 5RF Plan Details Follow Up: 6 Months ( LMR) HPI HPI Comments Details: This patient presents to the office today for follow-up to discuss recent testing. She has a history of obstructive sleep apnea and obesity. She is ambulatory and currently on room air. She was recently seen in [place] for diverticulitis. She is planning for an upcoming surgery. She had a PICC line and antibiotics. She will have a day of prep, then colonoscopy to map, and surgery the next day- May 20. She is not currently on any maintenance inhalers. She will use her rescue inhaler when it is hot and humid but reports it is not beneficial. Today she denies shortness of breath cough and wheeze. She reports that chest tightness and chest pain will occur on occasion but she is using a water pill. If she does not take the medication then her water weight will cause pain. She has not required oxygen therapy. She does attempt to treat her allergy symptoms with Claritin and Flonase. She is struggling with uncontrolled acid reflux and her symptoms are worse at the end of the day. She is utilizing omeprazole 40 mg 30 minutes before breakfast in the morning. She is also utilizing Pepcid. She does have a history of rheumatoid arthritis and ulcerative colitis. She reports a history of immunodeficiency and is unable to take certain medications that would help control RA. She has a history of breast cancer, ulcerative colitis, LLAMAS, paroxysmal atrial fibrillation, CHF and type 2 diabetes. The patient reports compliance with daily weights and Lasix. She has noticed snoring with pap machine on. She is feeling un-refreshed on awakening and believes that it is because she is moving around at night. She reports that she was taken off of medications that she feels are contributing to this. She reports that nocturia will occur on occasion 1 time nightly. She does have a dry mouth. She denies morning headache. She is reporting compliance with PAP therapy. She does not have sleep concerns that she would like to address today. ESS is 6. PFT from December 03, 2024 (more content not included)... Normal [facility] 102on 04-15-2025 102 HNO ID: [id number] Author: BRITTNI PERALES HDA Service: ? Author Type: ? Type: 102 Filed: 04/15/2025 09:08 Note Text: Code Status: Full Code Normal [facility] Amylase SerPl-cCncon 025 Amylase [Catalytic activity/Vol] 49 U/L Normal 30-104 [facility] Comment on above: Order Comment: Speci men Type: BLOOD SPECIMEN Ordering Facility: [facility] Address: [address] [place] [address] Performed By: #### 2 4323-8, 3040-3, 1798-8, 1987- #### [facility] CLIA [id number] [address] [place] [address] [place] CBC W Auto Differential pane l (Bld)on 04-11-2025 Basophils (Bld) [#/Vol] 0.03 10*3/uL Normal <0.11 [facility] Comment on above: Order Comment: Speci men Type: BLOOD SPECIMEN Ordering Facility: [facility] Address: [address] [place] [address] Performed By: #### 5 7021-8 #### [facility] CLIA [id number] [address] [place] [address] [place] Basophils/100 WBC (Bld) 0.5 % Normal [facility] Comment on above: Order Comment: Speci men Type: BLOOD SPECIMEN Ordering Facility: [facility] Address: [address] [place] [address] Performed By: #### 5 7021-8 #### [facility] CLIA [id number] [address] [place] [address] [place] Differential cell count method Nom (Bld) Auto Normal [facility] Comment on above: Order Comment: Speci men Type: BLOOD SPECIMEN Ordering Facility: [facility] Address: [address] [place] [address] Performed By: #### 5 7021-8 #### [facility] CLIA [id number] [address] [place] [address] [place] Eosinophils (Bld) [#/Vol] 0.21 10*3/uL Normal <0.46 [facility] Comment on above: Order Comment: Speci men Type: BLOOD SPECIMEN Ordering Facility: [facility] Address: [address] [place] [address] Performed By: #### 5 7021-8 #### [facility] CLIA [id number] [address] [place] [address] [place] Eosinophils/100 WBC (Bld) 3.8 % Normal [facility] Comment on above: Order Comment: Speci men Type: BLOOD SPECIMEN Ordering Facility: [facility] Address: [address] [place] [address] Performed By: #### 5 7021-8 #### [facility] CLIA [id number] [address] [place] [address] [place] Erythrocyte distribution width (RBC) [Ratio] 13.4 % Normal 11.5-15.0 [facility] Comment on above: Order Comment: Speci men Type: BLOOD SPECIMEN Ordering Facility: [facility] Address: [address] [place] [address] Performed By: #### 5 7021-8 #### [facility] CLIA [id number] [address] [place] [address] [place] Hematocrit (Bld) [Volume fraction] 42.5 % Normal 36.0-46.0 [facility] Comment on above: Order Comment: Speci men Type: BLOOD SPECIMEN Ordering Facility: [facility] Address: [address] [place] [address] Performed By: #### 5 7021-8 #### [facility] CLIA [id number] [address] [place] [address] [place] Hemoglobin (Bld) [Mass/Vol] 13.8 g/dL Normal 11.5-15.5 [facility] Comment on above: Order Comment: Speci men Type: BLOOD SPECIMEN Ordering Facility: [facility] Address: [address] [place] [address] Performed By: #### 5 7021-8 #### [facility] CLIA [id number] [address] [place] [address] [place] Immature granulocytes (Bld) [#/Vol] 10*3/uL Normal <0.10 [facility] Comment on above: Order Comment: Speci men Type: BLOOD SPECIMEN Ordering Facility: [facility] Address: [address] [place] [address] Performed By: #### 5 7021-8 #### [facility] CLIA [id number] [address] [place] [address] [place] Immature granulocytes/100 WBC (Bld) 0.2 % Normal [facility] Comment on above: Order Comment: Speci men Type: BLOOD SPECIMEN Ordering Facility: [facility] Address: [address] [place] [address] Performed By: #### 5 7021-8 #### [facility] CLIA [id number] [address] [place] [address] [place] Lymphocytes (Bld) [#/Vol] 1.63 10*3/uL Normal 1.00-4.00 [facility] Comment on above: Order Comment: Speci men Type: BLOOD SPECIMEN Ordering Facility: [facility] Address: [address] [place] [address] Performed By: #### 5 7021-8 #### [facility] CLIA [id number] [address] [place] Lymphocytes/100 WBC (Bld) 29.8 % Normal [facility] Comment on above: Order Comment: Speci men Type: BLOOD SPECIMEN Ordering Facility: [facility] Address: [address] [place] [address] Performed By: #### 5 7021-8 #### [facility] CLIA [id number] [address] [place] [address] [place] MCH (RBC) [Entitic mass] 29.6 pg Normal 26.0-34.0 [facility] Comment on above: Order Comment: Speci men Type: BLOOD SPECIMEN Ordering Facility: [facility] Address: [address] [place] [address] Performed By: #### 5 7021-8 #### [facility] CLIA [id number] [address] [place] [address] [place] MCHC (RBC) [Mass/Vol] 32.5 g/dL Normal 30.5-36.0 [facility] Comment on above: Order Comment: Speci men Type: BLOOD SPECIMEN Ordering Facility: [facility] Address: [address] [place] [address] Performed By: #### 5 7021-8 #### [facility] CLIA [id number] [address] [place] [address] [place] MCV (RBC) [Entitic vol] 91.0 fL Normal 80.0-100.0 [facility] Comment on above: Order Comment: Speci men Type: BLOOD SPECIMEN Ordering Facility: [facility] Address: [address] [place] [address] Performed By: #### 5 7021-8 #### [facility] CLIA [id number] [address] [place], [place] [address] [place] [address] [place] Monocytes (Bld) [#/Vol] 0.49 10*3/uL Normal <0.87 [facility] Comment on above: Order Comment: Speci men Type: BLOOD SPECIMEN Ordering Facility: [facility] Address: [address] [place] [address] Performed By: #### 5 7021-8 #### [facility] CLIA [id number] [address] [place] [address] [facility] [place] Monocytes/100 WBC (Bld) 9.0 % Normal [facility] Comment on above: Order Comment: Speci men Type: BLOOD SPECIMEN Ordering Facility: [facility] Address: [address] [place] [address] Performed By: #### 5 7021-8 #### [facility] CLIA [id number] [address] [place] [address] [place] Neutrophils (Bld) [#/Vol] 3.10 10*3/uL Normal 1.45-7.50 [facility] Comment on above: Order Comment: Speci men Type: BLOOD SPECIMEN Ordering Facility: [facility] Address: [address] [place] [address] Performed By: #### 5 7021-8 #### [facility] CLIA [id number] [address] [place] [address] [place] Neutrophils/100 WBC (Bld) 56.7 % Normal [facility] Comment on above: Order Comment: Speci men Type: BLOOD SPECIMEN Ordering Facility: [facility] Address: [address] [place] [address] Performed By: #### 5 7021-8 #### [facility] CLIA [id number] [address] [place] [address] [place] Nucleated RBC (Bld) [#/Vol] Normal [facility] Comment on above: Order Comment: Speci men Type: BLOOD SPECIMEN Ordering Facility: [facility] Address: [address] [place] [address] Performed By: #### 5 7021-8 #### [facility] CLIA [id number] [address] [place] [address] [place] Nucleated RBC/100 WBC (Bld) [Ratio] Normal [facility] Comment on above: Order Comment: Speci men Type: BLOOD SPECIMEN Ordering Facility: [facility] Address: [address] [place] [address] Performed By: #### 5 7021-8 #### [facility] CLIA [id number] [address] [place] [address] [place] Platelet mean volume (Bld) [Entitic vol] 11.9 fL Normal 9.0-12.7 [facility] Comment on above: Order Comment: Speci men Type: BLOOD SPECIMEN Ordering Facility: [facility] Address: [address] [place] [address] Performed By: #### 5 7021-8 #### [facility] CLIA [id number] [address] [place] [address] [place] Platelets (Bld) [#/Vol] 129 10*3/uL Low 150-400 [facility] Comment on above: Order Comment: Speci men Type: BLOOD SPECIMEN Ordering Facility: [facility] Address: [address] [place] [address] Performed By: #### 5 7021-8 #### [facility] CLIA [id number] [address] [place] [address] [facility] RBC (Bld) [#/Vol] 4.67 10*6/uL Normal 3.90-5.20 [facility] Comment on above: Order Comment: Speci men Type: BLOOD SPECIMEN Ordering Facility: [facility] Address: [address] [place] [address] Performed By: #### 5 7021-8 #### [facility] CLIA [id number] [address] [place] [address] [facility] WBC (Bld) [#/Vol] 5.47 10*3/uL Normal 3.70-11.00 [facility] Comment on above: Order Comment: Speci men Type: BLOOD SPECIMEN Ordering Facility: [facility] Address: [address] [place] [address] Performed By: #### 5 7021-8 #### [facility] CLIA [id number] [address] [place], [place] [id number] [facility] -------- ALEXANDRA BELLA ([id number]) 1955 F Date Time Provider Department 04/11/25 MARLON CESAR [facility] During your visit today, we recorded the following information about you: Dariela Kothari RN 04/11/2025 11:40 AM Signed Call placed to patient. Based upon Anesthesia Guidelines, surgery will need to be moved out a few weeks due to medication Simponi. She will not take her next dose (due 05/05) in preparation for surgery. She will await call about anticoagulation pending reply from her ship scaler. Patient acknowledges and understands. Message sent to surgery schedulers to make adjustments. Allergies As of Date: 04/11/2025 Noted Allergy Reaction ADHESIVE TAPE 01/07/2002 Comments: rash AVELOX (MOXIFLOXACIN HCL) 02/16/2009 Comments: Heart race BIAXIN (CLARITHROMYCIN) 02/17/2009 4 - Hives 8 - GI Upset ERYC (ERYTHROMYCIN) 02/16/2009 7 - Swelling METFORMIN 05/25/2022 8 - GI Upset Comments: Throwing up, Diarrhea PENICILLINS 07/07/2003 QUINOLONES 07/12/2004 Comments: Avelox REMICADE (INFLIXIMAB) 10/21/2020 12 - Shortness of Breath SPIRONOLACTONE 05/14/2020 5 - Intolerance Comments: Headaches SUTURES 11/28/2023 14 - Other: See Comments Comments: Suture do not dissolve DEMEROL (MEPERIDINE (PF)) 03/14/2012 14 - Other: See Comments Comments: Arm swelled up locally and turned red. Date Reviewed: 04/07/2025 Reviewed by: Renee Echeverria APRN.[employer]ETING ASSISTANT - Fully Assessed Reason for Visit: Schedule Surgery [1330] Cmt: New OR date to 05/22 Prescriptions as of 04/11/2025 - ONETOUCH ULTRA TEST test strip Use as directed to check glucose 1 time daily. E11.9, non-insulin dependent. - ONETOUCH ULTRASOFT LANCETS Use as directed to check glucose 1 times daily.E11.9, non-insulin dependent. - tirzepatide (MOUNJARO) 5 mg/0.5 mL pen injector Inject 5 mg subcutaneously one time a week. - iv contrast (will be provided with radiology test) CT ABD/PEL -Inject, intravenously, once for 1 dose.No IV access, insert saline lock prior to the beginning of sedation, infusion, injection of imaging exam. Discontinue saline lock post exam. If Pt. has a central line or IVAD, may access for administration according to line specific nursing protocol. Once exam is complete flush line and de-access according to line specific nursing protocol in the CT contrast administration guidelines link. - enteric contrast (will be provided with radiology test) For CT ABD/PEL W IVCON Routine order Administer, As Directed One Time Only, via Oral, Rectal, both Oral and Rectal, Enteric Tube, Stoma or Indwelling Catheter, Enteric Contrast as designated per enteric contrast guidelines - neomycin 500 mg tablet Take 2 tablets by mouth as directed. Take 2 tablet at 6pm, 7pm, and 11pm the evening prior to surgery. - losartan (COZAAR) 50 mg tablet Take 50 mg by mouth once daily. - metoprolol tartrate, short acting, (LOPRESSOR) 25 mg tablet Take 25 mg by mouth once daily. 1/2 tab - furosemide (LASIX) 40 mg tablet Take 1 tablet by mouth once daily. - sucralfate (CARAFATE) 100 mg/mL suspension Take 10 mL by mouth two times a day. Take on empty stomach and avoid eating or drinking for 30 mins after taking. - levothyroxine (SYNTHROID) 200 mcg tablet Take one tablet Monday through Monday,and half a pill on Saturdays and none on Sundays. - Blood-Glucose Meter (XormisUCH ULTRA2 METER) monitoring kit Use to test blood sugar daily, DX: E11.9, NIDDM - omeprazole (PRILOSEC) 40 mg capsule TAKE 1 CAPSULE BY MOUTH ONCE DAILY - losartan (COZAAR) 25 mg tablet Take 0.5 tablets by mouth once daily. - flecainide (TAMBOCOR) 100 mg tablet Take 1 tablet by mouth every 12 hours. - apixaban (ELIQUIS) 5 mg tab(s) Take 1 tablet by mouth twice daily. - potassium chloride (K-TAB) 10 mEq tablet Take 1 tablet by mouth once daily. - traMADol (ULTRAM) 50 mg tablet Take 1 tablet by mouth as needed for pain. - albuterol HFA (PROVENTIL HFA, VENTOLIN HFA) 90 mcg/actuation inhaler as needed for wheezing/shortness of breath. - golimumab (SIMPONI ARIA INTRAVENOUS) Inject intravenously every 8 weeks. 2mg/kg (242mg) - CPAP - celecoxib (CELEBREX) 200 mg capsule Take 1 capsule by mouth once daily. Problem List As Of Date 04/11/2025 Noted Resolved History of left breast cancer [Z85.3] 07/12/2004 LUMP OR MASS IN BREAST [N63.0] 09/27/2004 DEEP VENOUS PHLEBITIS-LEG NEC [I80.299] Right knee injury [S89.91XA] 10/03/2012 Right wrist pain [M25.531] 10/03/2012 Tear of right meniscus as current injury [S83.2*10/03/2012 07/08/2019 Left-sided chest wall pain [R07.89] 07/17/2016 11/11/2020 Mass on back [R22.2] 08/14/2018 11/26/2020 MARILIA on CPAP [G47.33] 08/24/2018 Postoperative hypothyroidism [E89.0] 08/24/2018 Essential hypertension [I10] 08/24/2018 Mixed hyperlipidemia [E78.2] 08/24/2018 02/14/2022 Gastroesophageal reflux disease with (more content not included)... Normal [facility] CRP SerPl-ncon 04-11-2025 CRP [Mass/Vol] 0.4 mg/dL Normal <0.9 [facility] Comment on above: Order Comment: Harry lunsford Type: BLOOD SPECIMEN Ordering Facility: [facility] Address: [address] [place] [address] Performed By: #### 2 4323-8, 3039-11, 1798-04, 1988-01 #### [facility] CLIA [id number] [address] [place] [address] [facility] Comprehensive metabolic 2000 panelon 04-11-2025 Albumin [Mass/Vol] 4.0 g/dL Normal 3.9-4.9 [facility] Comment on above: Order Comment: Harry lunsford Type: BLOOD SPECIMEN Ordering Facility: [facility] Address: [address] [place] [address] Performed By: #### 2 4323-8, 3039-11, 1798-04, 1988-01 #### [facility] CLIA [id number] [address] [place] [address] [facility] OF [place] ALP [Catalytic activity/Vol] 118 U/L Normal 34-123 [facility] Comment on above: Order Comment: Harry lunsford Type: BLOOD SPECIMEN Ordering Facility: [facility] Address: [address] [place] [address] Performed By: #### 2 4323-8, 3039-3, 1798-04, 1988-01 #### [facility] CLIA [id number] [address] [place] [address] [place] ALT With P-5'-P [Catalytic activity/Vol] 50 U/L High 7-38 [facility] Comment on above: Order Comment: Speci men Type: BLOOD SPECIMEN Ordering Facility: [facility] Address: [address] [place], [place] [address] Performed By: #### 2 4323-8, 3039-3, 1798-04, 1988-01 #### [facility] CLIA [id number] [address] [place] [address] [place] Anion gap [Moles/Vol] 16 mmol/L High 8-15 [facility] Comment on above: Order Comment: Speci men Type: BLOOD SPECIMEN Ordering Facility: [facility] Address: [address] [place], [place] [address] Performed By: #### 2 4323-8, 3, 1798-04, 1988-01 #### [facility] CLIA [id number] [address] [place] [address] [place] AST With P-5'-P [Catalytic activity/Vol] 45 U/L High 13-35 [facility] Comment on above: Order Comment: Speci men Type: BLOOD SPECIMEN Ordering Facility: [facility] Address: [address] [place] [address] Performed By: #### 2 4323-8, 3039-3, 1798-04, 1988-01 #### [facility] CLIA [id number] [address] [place] [address] [place] Bilirubin [Mass/Vol] 0.5 mg/dL Normal 0.2-1.3 [facility] Comment on above: Order Comment: Speci men Type: BLOOD SPECIMEN Ordering Facility: [facility] Address: [address] [place] [address] Performed By: #### 2 4323-8, 3039-3, 1798-04, 1988-01 #### [facility] CLIA [id number] [address] [place] [address] [place] Calcium [Mass/Vol] 10.4 mg/dL High 8.5-10.2 [facility] Comment on above: Order Comment: Speci men Type: BLOOD SPECIMEN Ordering Facility: [facility] Address: [address] [place], [place] [address] Performed By: #### 2 4323-8, 3, 1798-04, 1988-01 #### [facility] CLIA [id number] [address] [place] [address] [place] Chloride [Moles/Vol] 100 mmol/L Normal 98-107 [facility] Comment on above: Order Comment: Speci men Type: BLOOD SPECIMEN Ordering Facility: [facility] Address: [address] [place] [address] Performed By: #### 2 432-8, 3, 1798-04, 1988-01 #### [facility] CLIA [id number] [address] [place] [address] [place] CO2 [Moles/Vol] 20 mmol/L Low 22-30 [facility] Comment on above: Order Comment: Speci men Type: BLOOD SPECIMEN Ordering Facility: [facility] Address: [facility] [place] [address] Performed By: #### 2 4323-8, 3, 1798-04, 1988-01 #### [facility] CLIA [id number] [address] [place] [address] [place] Creatinine [Mass/Vol] 0.80 mg/dL Normal 0.58-0.96 [facility] Comment on above: Order Comment: Speci men Type: BLOOD SPECIMEN Ordering Facility: [facility] Address: [facility] [place] [address] Performed By: #### 2 4323-8, 3039-3, 1988-01 #### [facility] CLIA [id number] [address] [place] [address] [place] eGFRcr SerPlBld CKD-EPI 2020 80 mL/min/1.73m??? Normal >=60 [facility] Comment on above: Order Comment: Harry lunsford Type: BLOOD SPECIMEN Ordering Facility: [facility] Address: [address] [place] [address] Result Comment: Hortensia mated Glomerular Filtration Rate (eGFR) is calculated using the 2020 CKD-EPI creatinine equation. This equation utilizes serum creatinine, sex, and age as parameters. The creatinine assay has traceable calibration to isotope dilution-mass spectrometry. Refer to KDIGO guidelines for clinical interpretation. In patients with unstable renal function, e.g. those with acute kidney injury, the eGFR may not accurately reflect actual GFR. Performed By: #### 2 4323-8, 0-3, 1988-01 #### [facility] CLIA [id number] [address] [place] [id number] [place] Glucose [Mass/Vol] 181 mg/dL High 74-99 [facility] Comment on above: Order Comment: Harry lunsford Type: BLOOD SPECIMEN Ordering Facility: [facility] Address: [address] [place] [address] Result Comment: The [place] Diabetes Association (ADA) provides guidance for cutoff values for fasting glucose and random glucose. The ADA defines fasting as no caloric intake for at least 8 hours. Fasting plasma glucose results between 100 to 125 mg/dL indicate increased risk for diabetes (prediabetes). Fasting plasma glucose results greater than or equal to 126 mg/dL meet the criteria for diagnosis of diabetes. In the absence of unequivocal hyperglycemia, results should be confirmed by repeat testing. In a patient with classic symptoms of hyperglycemia or hyperglycemic crisis, random plasma glucose results greater than or equal to 200 mg/dL meet the criteria for diagnosis of diabetes. Reference: Standards of Medical Care in Diabetes 2016, [place] [employer] Association. Diabetes Care. 2016.39(Suppl 1). Performed By: #### 2 4323-8, 3040-3, 1798-04, 1988-01 #### [facility] CLIA [id number] [address] [place] [address] [place] Potassium [Moles/Vol] 4.0 mmol/L Normal 3.7-5.1 [facility] Comment on above: Order Comment: Speci men Type: BLOOD SPECIMEN Ordering Facility: [facility] Address: [address] [place] [address] Performed By: #### 2 432-8, 3039-3, 1798-04, 1988-01 #### [facility] CLIA [id number] [address] [place] [address] [place] Protein [Mass/Vol] 8.0 g/dL Normal 6.3-8.0 [facility] Comment on above: Order Comment: Speci men Type: BLOOD SPECIMEN Ordering Facility: [facility] Address: [address] [place] [address] Performed By: #### 2 432-8, 3039-11, 1798-04, 1988-01 #### [facility] CLIA [id number] [address] [place] [address] [place] Sodium [Moles/Vol] 136 mmol/L Normal 136-144 [facility] Comment on above: Order Comment: Speci men Type: BLOOD SPECIMEN Ordering Facility: [facility] Address: [address] [place] [address] Performed By: #### 2 4323-8, 3, 1798-04, 1988-01 #### [facility] CLIA [id number] [address] [place] [address] [place] Urea nitrogen [Mass/Vol] 15 mg/dL Normal 7-21 [facility] Comment on above: Order Comment: Speci men Type: BLOOD SPECIMEN Ordering Facility: [facility] Address: [address] [place] [address] Performed By: #### 2 4323-8, 3039-3, 1798-04, 1988-01 #### [facility] CLIA [id number] [address] [place] [address] [place] Lipase SerPl-cCncon 04-11-20 25 Lipase [Catalytic activity/Vol] 37 U/L Normal 16-61 [facility] Comment on above: Order Comment: Harry lunsford Type: BLOOD SPECIMEN Ordering Facility: [facility] Address: [address] [place] [address] Performed By: #### 2 4323-8, 3040-3, 1798-8, 1988- #### [facility] CLIA [id number] [address] [place] [id number] [facility] 04-08-2025 CNPN Telephone (PREANME) -------- ALEXANDRA BELLA ([id number]) 1955 F Date Time Provider Department 04/08/25 RENEE ECHEVERRIA PREJOSE M During your visit today, we recorded the following information about you: Renee Echeverria APRN.CNP 04/08/2025 3:04 PM Signed Chasity, I saw this mutual patient in [facility] on 04/07/25 Alexandra Bella 1955 [id number] is scheduled for LAPAROSCOPIC HAND ASSISTED COLECTOMY with Dr. Marlon Cesar on 05/01/25. This patient is taking Simponi (IV every 8 weeks) - next dose 05/05 (after procedure). Per guidelines, surgery should be scheduled week 9 - which is the following week (first week of May). Per Rafi Garirson - Anesthesiologist, we should follow this guideline and delay surgery until first week of May. Once received, I can notify patient. We are currently working on anticoagulation instructions and pending reply from her Bull Fiddle Player - Dr. Hobbs. Renee Echeverria APRN.SALES AND MARKETING ASSISTANT Pre-Anesthesia Meño Manning 04/09/2025 8:49 AM Signed Patient has more request. Please contact them. Pt needs surgery delayed a week per Renee. CB#: [phone] Allergies As of Date: 04/08/2025 Noted Allergy Reaction ADHESIVE TAPE 01/07/2002 Comments: rash AVELOX (MOXIFLOXACIN HCL) 02/16/2009 Comments: Heart race BIAXIN (CLARITHROMYCIN) 02/17/2009 4 - Hives 8 - GI Upset ERYC (ERYTHROMYCIN) 02/16/2009 7 - Swelling METFORMIN 05/25/2022 8 - GI Upset Comments: Throwing up, Diarrhea PENICILLINS 07/07/2003 QUINOLONES 07/12/2004 Comments: Avelox REMICADE (INFLIXIMAB) 10/21/2020 12 - Shortness of Breath SPIRONOLACTONE 05/14/2020 5 - Intolerance Comments: Headaches SUTURES 11/28/2023 14 - Other: See Comments Comments: Suture do not dissolve DEMEROL (MEPERIDINE (PF)) 03/14/2012 14 - Other: See Comments Comments: Arm swelled up locally and turned red. Date Reviewed: 04/07/2025 Reviewed by: Renee Echeverria APRN.SALES AND MARKETING ASSISTANT - Fully Assessed Reason for Visit: Preparations For Surgery [898] Prescriptions as of 04/11/2025 - ONETOUCH ULTRA TEST test strip Use as directed to check glucose 1 time daily. E11.9, non-insulin dependent. - ONETOUCH ULTRASOFT LANCETS Use as directed to check glucose 1 times daily.E11.9, non-insulin dependent. - tirzepatide (MOUNJARO) 5 mg/0.5 mL pen injector Inject 5 mg subcutaneously one time a week. - iv contrast (will be provided with radiology test) CT ABD/PEL -Inject, intravenously, once for 1 dose.No IV access, insert saline lock prior to the beginning of sedation, infusion, injection of imaging exam. Discontinue saline lock post exam. If Pt. has a central line or IVAD, may access for administration according to line specific nursing protocol. Once exam is complete flush line and de-access according to line specific nursing protocol in the CT contrast administration guidelines link. - enteric contrast (will be provided with radiology test) For CT ABD/PEL W IVCON Routine order Administer, As Directed One Time Only, via Oral, Rectal, both Oral and Rectal, Enteric Tube, Stoma or Indwelling Catheter, Enteric Contrast as designated per enteric contrast guidelines - neomycin 500 mg tablet Take 2 tablets by mouth as directed. Take 2 tablet at 6pm, 7pm, and 11pm the evening prior to surgery. - losartan (COZAAR) 50 mg tablet Take 50 mg by mouth once daily. - metoprolol tartrate, short acting, (LOPRESSOR) 25 mg tablet Take 25 mg by mouth once daily. 1/2 tab - furosemide (LASIX) 40 mg tablet Take 1 tablet by mouth once daily. - sucralfate (CARAFATE) 100 mg/mL suspension Take 10 mL by mouth two times a day. Take on empty stomach and avoid eating or drinking for 30 mins after taking. - levothyroxine (SYNTHROID) 200 mcg tablet Take one tablet Monday through Monday,and half a pill on Saturdays and none on Sundays. - Blood-Glucose Meter (BuyHappy ULTRA2 METER) monitoring kit Use to test blood sugar daily, DX: E11.9, NIDDM - omeprazole (PRILOSEC) 40 mg capsule TAKE 1 CAPSULE BY MOUTH ONCE DAILY - losartan (COZAAR) 25 mg tablet Take 0.5 tablets by mouth once daily. - flecainide (TAMBOCOR) 100 mg tablet Take 1 tablet by mouth every 12 hours. - apixaban (ELIQUIS) 5 mg tab(s) Take 1 tablet by mouth twice daily. - potassium chloride (K-TAB) 10 mEq tablet Take 1 tablet by mouth once daily. - traMADol (ULTRAM) 50 mg tablet Take 1 tablet by mouth as needed for pain. - albuterol HFA (PROVENTIL HFA, VENTOLIN HFA) 90 mcg/actuation inhaler as needed for wheezing/shortness of breath. - golimumab (SIMPONI ARIA INTRAVENOUS) Inject intravenously every 8 weeks. 2mg/kg (242mg) - CPAP - celecoxib (CELEBREX) 200 mg capsule Take 1 capsule by mouth once daily. Problem List As Of Date 04/08/2025 Noted Resolved History of left breast cancer [Z85.3] 07/12/2004 LUMP OR MASS IN BREAST [N63.0] 09/27/2004 DEEP VENOUS PHLEBITIS-LEG NEC [I80.299] Right knee (more content not included)... [facility] Telephone (PREANME) -------- ALEXANDRA BELLA ([id number]) 1955 F Date Time Provider Department 04/08/25 CHRISTINE LOBO During your visit today, we recorded the following information about you: Christine Lobo LPN 04/08/2025 1:15 PM Signed Call placed to office re need for returned anticoagulation letter for upcoming surgery. Spoke with Ximena at office. Refaxed-fax confirmation x 2 received. Allergies As of Date: 04/08/2025 Noted Allergy Reaction ADHESIVE TAPE 01/07/2002 Comments: rash AVELOX (MOXIFLOXACIN HCL) 02/16/2009 Comments: Heart race BIAXIN (CLARITHROMYCIN) 02/17/2009 4 - Hives 8 - GI Upset ERYC (ERYTHROMYCIN) 02/16/2009 7 - Swelling METFORMIN 05/25/2022 8 - GI Upset Comments: Throwing up, Diarrhea PENICILLINS 07/07/2003 QUINOLONES 07/12/2004 Comments: Avelox REMICADE (INFLIXIMAB) 10/21/2020 12 - Shortness of Breath SPIRONOLACTONE 05/14/2020 5 - Intolerance Comments: Headaches SUTURES 11/28/2023 14 - Other: See Comments Comments: Suture do not dissolve DEMEROL (MEPERIDINE (PF)) 03/14/2012 14 - Other: See Comments Comments: Arm swelled up locally and turned red. Date Reviewed: 04/07/2025 Reviewed by: Renee Echeverria APRN.SALES AND MARKETING ASSISTANT - Fully Assessed Prescriptions as of 04/08/2025 - ONETOUCH ULTRA TEST test strip Use as directed to check glucose 1 time daily. E11.9, non-insulin dependent. - ONETOUCH ULTRASOFT LANCETS Use as directed to check glucose 1 times daily.E11.9, non-insulin dependent. - tirzepatide (MOUNJARO) 5 mg/0.5 mL pen injector Inject 5 mg subcutaneously one time a week. - neomycin 500 mg tablet Take 2 tablets by mouth as directed. Take 2 tablet at 6pm, 7pm, and 11pm the evening prior to surgery. - losartan (COZAAR) 50 mg tablet Take 50 mg by mouth once daily. - metoprolol tartrate, short acting, (LOPRESSOR) 25 mg tablet Take 25 mg by mouth once daily. 1/2 tab - furosemide (LASIX) 40 mg tablet Take 1 tablet by mouth once daily. - sucralfate (CARAFATE) 100 mg/mL suspension Take 10 mL by mouth two times a day. Take on empty stomach and avoid eating or drinking for 30 mins after taking. - levothyroxine (SYNTHROID) 200 mcg tablet Take one tablet Monday through Monday,and half a pill on Saturdays and none on Sundays. - Blood-Glucose Meter (BuyHappy ULTRA2 METER) monitoring kit Use to test blood sugar daily, DX: E11.9, NIDDM - omeprazole (PRILOSEC) 40 mg capsule TAKE 1 CAPSULE BY MOUTH ONCE DAILY - losartan (COZAAR) 25 mg tablet Take 0.5 tablets by mouth once daily. - flecainide (TAMBOCOR) 100 mg tablet Take 1 tablet by mouth every 12 hours. - apixaban (ELIQUIS) 5 mg tab(s) Take 1 tablet by mouth twice daily. - potassium chloride (K-TAB) 10 mEq tablet Take 1 tablet by mouth once daily. - traMADol (ULTRAM) 50 mg tablet Take 1 tablet by mouth as needed for pain. - albuterol HFA (PROVENTIL HFA, VENTOLIN HFA) 90 mcg/actuation inhaler as needed for wheezing/shortness of breath. - golimumab (SIMPONI ARIA INTRAVENOUS) Inject intravenously every 8 weeks. 2mg/kg (242mg) - CPAP - celecoxib (CELEBREX) 200 mg capsule Take 1 capsule by mouth once daily. Problem List As Of Date 04/08/2025 Noted Resolved History of left breast cancer [Z85.3] 07/12/2004 LUMP OR MASS IN BREAST [N63.0] 09/27/2004 DEEP VENOUS PHLEBITIS-LEG NEC [I80.299] Right knee injury [S89.91XA] 10/03/2012 Right wrist pain [M25.531] 10/03/2012 Tear of right meniscus as current injury [S83.2*10/03/2012 07/08/2019 Left-sided chest wall pain [R07.89] 07/17/2016 11/11/2020 Mass on back [R22.2] 08/14/2018 11/26/2020 MARILIA on CPAP [G47.33] 08/24/2018 Postoperative hypothyroidism [E89.0] 08/24/2018 Essential hypertension [I10] 08/24/2018 Mixed hyperlipidemia [E78.2] 08/24/2018 02/14/2022 Gastroesophageal reflux disease without esophag*08/24/2018 Rheumatoid arthritis (HCC) [M06.9] 08/24/2018 Chest pain [R07.9] 07/05/2019 11/11/2020 Dyspnea [R06.00] 07/06/2019 Atrial fibrillation (HCC) [I48.91] 07/08/2019 Chronic diastolic CHF (congestive heart failure*07/08/2019 Lipoma of torso [D17.1] 11/05/2020 Coronary artery disease involving [place] rizzo*11/11/2020 History of DVT (deep vein thrombosis) [Z86.718] 11/26/2020 History of colorectal cancer [Z85.048] 11/26/2020 CHF (congestive heart failure) (HCC) [I50.9] 02/14/2022 Encounter for monitoring flecainide therapy [Z5*11/02/2021 snf current use of anticoagulant [Z79.01] 11/02/2021 Nonalcoholic fatty liver disease without nonalc*11/02/2021 Pure hypercholesterolemia [E78.00] 02/14/2022 Type 2 diabetes mellitus with diabetic polyneur*11/28/2023 Obesity, unspecified [E66.9] 01/17/2025 01/17/2025 Acute diverticulitis [K57.92] 03/17/2025 Obesity, Class III, BMI >= 40 [E66.813] 03/18/2025 Sepsis (HCC) [A41.9] 03/19/2025 Hx of diverticulitis of colon [Z87.19] 03/19/2025 Chest pressure [R07.89] 03/19/2025 He (more content not included)... Normal [facility] Bacteria Ur Culton Bacteria identified Cx Nom (U) ORGANISM ID: 1 10,000 -<50,000 CFU/ml Mixed microbiota No further workup. Mixed microbiota can be due to???urine???contaminati on with skin bacteria at time of collection or presence of a long-term urinary catheter. If a new culture is needed, please consider re-education of the patient on proper midstream collection technique or straight catheterization for???urine???collection . [facility] Comment on above: Performed By: #### 6 30-4 ####[facility] [id number] [place] [id number] [facility] CNCOon 04-07-2025 CNCO Letter Text [facility] CNPNon 04-07-2025 CNPN Telephone (ENDMED) -------- ALEXANDRA BELLA ([id number]) 1955 F Date Time Provider Department 04/07/25 ELICEO AMBRIZ During your visit today, we recorded the following information about you: Corrie Alejandro, JONI 04/07/2025 1:51 PM Signed Eliceo please review upon return to the office on Monday04/08/25: Patient called, state's she is scheduled for surgery on 05/01/25 for S/P Diverticulitis (inpatient 03/17/25). State's she was told to ask when she should stop the Mounjaro before surgery. Discussed that this is stopped 1-2 weeks before surgery (better 2 weeks before). State's since increasing to 7.5 mg she has had a lot of GI side effects of Nausea, Vomiting, Acid Reflux, No Appetite, Overall Feeling Sick. She has been taking this dose for 2 months. She has lost a total of 31 lbs since starting Mounjaro. She is happy with the weight loss and the improvement of her glucose readings. But, she is agreeable that she may need to either discontinue altogether or go back to 5 mg dose. She felt much better on this dose. She is expected to be in the hospital for @5days following surgery and will have a PICC line for antibiotics following her surgery to go home. She is currently testing once daily. Readings are running a little higher than usual (190's) at times, but isn't really eating due to GI issues. Discussed that the large amount of stress on her body, infection, pain etc. Is likely the culprit. Discussed that she should test her glucose consistently and should test 1-2 times daily. Will update testing supplies for 2 times daily. What should patient do for medication for now until surgery? Will she be able to resume Mounjaro after surgery? How long after? At what dose? When do you want glucose readings sent in? Etc. Eliceo Ambriz, SHARLA.SERVANDO 04/08/2025 9:28 AM Signed Lower Mounjaro back to 5 mg weekly. Stop 1 wk prior to surgery. Resume 1 wk after surgery. Monitor BG once daily at variable times of day. Fasting, before meals or bedtime. Send these to me in 7-10 days. We may need to figure out something else for glucose control since we are lowering Mounjaro. Thank you Neema Berman MA 04/08/2025 2:15 PM Signed DEUS message sent with alert if not read. Keep open Eliceo wants glucose readings in 7-10 days. 04/16/25 we should receive readings. If not we will call/message patient. Marissa Tim RN 04/10/2025 11:09 AM Signed Patient read DEUS message on 04/08/25 at 1547. Closed Corrie Alejandro RN 04/18/2025 1:20 PM Signed Called and spoke to patient regarding below message. Patient state's her GI surgeon has discontinued the Mounjaro for now until surgery which has been postponed until 05/2025. They has started her on high fiber diet, started benefiber, and Align She has been off of Mounjaro X2 weeks. Glucose readings have been running her @160's-180's. She has used Glipized in the past which has caused LOW's She has used Metformin in the past which has caused GI issues. Both are already in your OV note but she wanted to remind us of this. Please advise medication recommendations for now. Eliceo Ambriz APRN.CNP 04/18/2025 1:25 PM Signed Start glipizide XL 2.5 mg daily. If BG continued to be above 150 after a week she can increase to two pills daily (5 mg). Rx sent to [facility] Thank you Eliceo Ambriz APRN.CNP 04/18/2025 1:26 PM Signed Addended by: ELICEO AMBRIZ on: 04/18/2025 01:26 PM Modules accepted: Orders Marissa Tim RN 04/18/2025 2:32 PM Signed Notified patient of Eliceo Ambriz CNP's message. Patient verbalized understanding and all questions were answered. Encounter closed. Allergies As of Date: 04/07/2025 Noted Allergy Reaction ADHESIVE TAPE 01/07/2002 Comments: rash AVELOX (MOXIFLOXACIN HCL) 02/16/2009 Comments: Heart race BIAXIN (CLARITHROMYCIN) 02/17/2009 4 - Hives 8 - GI Upset ERYC (ERYTHROMYCIN) 02/16/2009 7 - Swelling METFORMIN 05/25/2022 8 - GI Upset Comments: Throwing up, Diarrhea PENICILLINS 07/07/2003 QUINOLONES 07/12/2004 Comments: Avelox REMICADE (INFLIXIMAB) 10/21/2020 12 - Shortness of Breath SPIRONOLACTONE 05/14/2020 5 - Intolerance Comments: Headaches SUTURES 11/28/2023 14 - Other: See Comments Comments: Suture do not dissolve DEMEROL (MEPERIDINE (PF)) 03/14/2012 14 - Other: See Comments Comments: Arm swelled up locally and turned red. Date Reviewed: 04/07/2025 Reviewed by: Renee Echeverria APRN.SERVANDO - Fully Assessed Reason for Visit: Patient Update [1234] Primary Visit Diagnosis:Type 2 diabetes mellitus with diabetic polyneuropathy, without long-term current use of insulin (HCC) [E11.42] Order(s):ONETOUCH ULTRA TEST test stripUse as directed to check glucose 1 time daily. E11.9, non-insulin dependent.Disp: 100 eachRfl: 3 ONETOUCH ULTRASOFT LANCETSUse as directed to check glucose 1 times daily (more content not included)... [facility] HISTORY PHYSICALon HISTORY PHYSICAL HNO ID: [id number] Author: RENEE ECHEVERRIA APRN.SERVANDO Service: ? Author Type: Nurse Practitioner Type: H&P Filed: 04/07/2025 10:19 Note Text: [facility] HISTORY AND PHYSICAL EXAMINATION SERVICE DATE: 04/07/2025 SERVICE TIME: 10:19 AM PRIMARY CARE PHYSICIAN: Leonora Davalos APRN.SALES AND MARKETING ASSISTANT Assessment Patient has the following medical conditions which may affect asya-operative course: 1. Type 2 diabetes mellitus with diabetic polyneuropathy, without long-term current use of insulin (HCC) (E11.42) - Managed with Mounjaro, currently held due to upcoming surgery. - Diabetic polyneuropathy present; previously trialed gabapentin but discontinued due to side effects. - Advised to hold Mounjaro until after surgery. 2. Pure hypercholesterolemia (E78.00) - Patient not currently on any medications. Patient is diet-controlled. 3. Essential hypertension (I10) - Managed with metoprolol and losartan. Last 3 Encounter BP Readings: Date: BP: 04/07/2025 124/73 03/28/2025 130/72 03/28/2025 123/82 4. Coronary artery disease involving [place] coronary artery of [place] heart without angina pectoris (I25.10) - Cardiac catheterization in 2017 showed no significant stenosis requiring stenting. - Follows Cardiology - Denies any heart palpitations, edema, chest pain, shortness of breath, syncope, activity intolerance, or dizziness. 5. Chronic diastolic CHF (congestive heart failure) (HCC) (I50.32) - Managed with Lasix PRN for lower extremity edema; instructed to weigh daily and take Lasix if weight increases by >3-5 lbs. - Appears euvolemic, denies new or worsening cardiac symptoms. 6. MARILIA on CPAP (G47.33) - Advised to bring CPAP to hospital for surgery. 7. Nonalcoholic fatty liver disease without nonalcoholic steatohepatitis (LLAMAS) (K76.0) - Most recent liver biopsy on 09/23/2021 showed mild steatosis. 8. Gastroesophageal reflux disease without esophagitis (K21.9) - Managed with omeprazole and Pepcid 9. Acute diverticulitis (K57.92) - Recent hospitalization with PICC line for antibiotics; scheduled for colectomy on 05/01 due to recurrent episodes. - Advised to follow bowel prep instructions prior to surgery and take Neomycin 2 tablets PO at 6, 7, and 11 PM the evening before surgery. 10. Rheumatoid arthritis of other site, unspecified whether rheumatoid factor present (HCC) (M06.9) - Managed by rheumatology (Dr. Jacquie Lloyd); currently on Celebrex, which will be held after 04/22 in preparation for surgery. - Simponi held due to immunosuppressive effects; will confirm timing is adequate prior to procedure. 11. Postoperative hypothyroidism (E89.0) - Managed with Synthroid - Denies recent dose adjustments. TSH Date Value 11/12/2024 2.380 mIU/L 05/03/2023 2.280 mIU/L 03/12/2020 0.561 uIU/mL 07/06/2019 0.176 uU/mL 12. History of DVT (deep vein thrombosis) (Z86.718) - Remote history - Currently on Eliquis - Inez Filter in place 13. Headaches (R51.9) - Managed with Tylenol or sinus medication as needed. 14. Anxiety and depression (F41.9) - Anxiety present, particularly related to upcoming surgery; no current suicidal ideation or intent to harm others. 15. Dyspnea, unspecified type (R06.00) - Dyspnea on exertion attributed to CHF and knee/back pain limiting mobility; advised to use albuterol inhaler as needed pre-operatively. 16. History of left breast cancer (Z85.3) - History of left breast cancer in 1996 - Chemo and Radiation as treatment 17. UTI symptoms (R39.9) 18. Dysuria (R30.0) - Urinalysis ordered due to recent dysuria and dark urine; will treat if positive for UTI prior to surgery. 20. Post-operative nausea and vomiting (R11.2) - History of post-op nausea/vomiting and potential delayed emergence from anesthesia; antiemetic plan will be coordinated with anesthesia team considering flecainide use. - Patient reports being awake but lethargiuc after procedures. 21. Atrial fibrillation, unspecified type (HCC) (I48.91) 22. snf (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 (Z79.01) - Managed with Eliquis and flecainide; last dose of Eliquis on 04/27 (3 days prior to surgery). - Continue flecainide on day of surgery. 23. Obesity, Class III, BMI 40-49.9 (morbid obesity) ([facility]) (E66.465) - Body mass index is 47.64 kg/m?. ANESTHESIA FINDINGS: Intubation History: No history of difficult intubation. No abnormal airway history Significant Anesthesia Considerations: Patient reports being awake but lethargic after procedures. potential postop nausea/vomiting potential slow emergence Airway History: No history of difficult airway No abnormal airway history Vincent Activity Status Index: METS: Walk indoors, such as around the house (1.75 METs) Do light work around the house, such as dusting or washing dishes (2.70 METs) Take care of self; that is eating, dressing, bathing, using the t (more content not included)... Normal [facility] Urinalysis complete panel (U )Ordered By: Yaneth Mccoy on 04-07-2025 Bilirubin Ql (U) Negative Negative [facility] Clarity (Unsp spec) Clear [facility] Color (U) Yellow Yellow [facility] Epithelial cells LM.HPF (Urine sed) [#/Area] Moderate /HPF [facility] Glucose Test strip (U) [Mass/Vol] Negative Negative [facility] Hemoglobin Ql (U) Negative Negative [facility] Interpretation and review of laboratory results Abnormal [facility] Ketones Ql (U) Negative Negative [facility] Leukocyte esterase Test strip Ql (U) Negative Negative [facility] Nitrite Ql (U) Negative Negative [facility] pH (U) 6 [pH] 5.0 - 8.0 [facility] Protein (U) [Mass/Vol] Trace Abnormal Negative Cl [facility] RBC LM.HPF (Urine sed) [#/Area] 0-3 /HPF 0-3 /HPF [facility] Specific gravity (U) [Rel density] 1.025 1.006 - 1.029 [facility] Urobilinogen Ql (U) 0.2 EU/dL 0.2-1.0 EU/dL [facility] WBC LM.HPF (Urine sed) [#/Area] 0-5 /HPF 0-5 /HPF [facility] Urinalysis complete panel (U )on 07-28-2025 Bilirubin Ql (U) Negative Normal Negative [facility] Comment on above: Order Comment: Speci men Type: URINE SPECIMENOrdering Facility: [facility] Address: [address] [place] [address] Performed By: #### 2 4356-8 ####[facility] LABORATORYCLIA [id number] [place] [address] [facility] Clarity (Unsp spec) Clear Normal Clear [facility] Comment on above: Order Comment: Speci men Type: URINE SPECIMENOrdering Facility: [facility] Address: [address] [place] [address] Performed By: #### 2 4356-8 ####LOONE[facility] LABORATORYCLIA [id number] [place] [id number] [place] Color (U) Yellow Normal Yellow [facility] Comment on above: Order Comment: Speci men Type: URINE SPECIMENOrdering Facility: [facility] Address: [address] [place] [address] Performed By: #### 2 4356-8 ####LOONEY LABORATORYCLIA [id number] [place] [address] [place] Epithelial cells LM.HPF (Urine sed) [#/Area] Moderate Normal [facility] Comment on above: Order Comment: Speci men Type: URINE SPECIMENOrdering Facility: [facility] Address: [address] [place] [address] Performed By: #### 2 4356-8 ####LOONEY LABORATORYCLIA [id number] [place] [id number] [place] Glucose Test strip (U) [Mass/Vol] Negative Normal Negative [facility] Comment on above: Order Comment: Speci men Type: URINE SPECIMENOrdering Facility: [facility] Address: [address] [place] [address] Performed By: #### 2 4356-8 ####LOONEY LABORATORYCLIA [id number] [place] [id number] [place] Hemoglobin Ql (U) Negative Normal Negative [facility] Comment on above: Order Comment: Speci men Type: URINE SPECIMENOrdering Facility: [facility] Address: [address] [place] [address] Performed By: #### 2 4356-8 ####LOONE[facility] LABORATORYCLIA [id number] [place] [address] [place] Ketones Ql (U) Negative Normal Negative [facility] Comment on above: Order Comment: Speci men Type: URINE SPECIMENOrdering Facility: [facility] Address: [address] [place] [address] Performed By: #### 2 4356-8 ####LOONE[facility] LABORATORYCLIA [id number] [place] [address] [facility] Leukocyte esterase Test strip Ql (U) Negative Normal Negative [facility] Comment on above: Order Comment: Speci men Type: URINE SPECIMENOrdering Facility: [facility] Address: [address] [place] [address] Performed By: #### 2 4356-8 ####LOONEY LABORATORYCLIA [id number] [address] [place] Nitrite Ql (U) Negative Normal Negative [facility] Comment on above: Order Comment: Speci men Type: URINE SPECIMENOrdering Facility: [facility] Address: [address] [place] [address] Performed By: #### 2 4356-8 ####LOONE[facility] LABORATORYCLIA [id number] [place] [address] [place] pH (U) 6.0 [pH] Normal 5.0-8.0 [facility] Comment on above: Order Comment: Speci men Type: URINE SPECIMENOrdering Facility: [facility] Address: [address] [place] [address] Performed By: #### 2 4356-8 ####LOONE[facility] LABORATORYCLIA [id number] [place] [address] [place] Protein (U) [Mass/Vol] Trace Abnormal Negative [facility] Comment on above: Order Comment: Speci men Type: URINE SPECIMENOrdering Facility: [facility] Address: [address] [place] [address] Performed By: #### 2 4356-8 ####LOONE[facility] LABORATORYCLIA [id number] [address] [place] RBC LM.HPF (Urine sed) [#/Area] 0-3 /HPF Normal 0-3 /HPF [facility] Comment on above: Order Comment: Speci men Type: URINE SPECIMENOrdering Facility: [facility] Address: [address] [place] [address] Performed By: #### 2 4356-8 ####[facility] LABORATORYCLIA [id number] [address] [place] Specific gravity (U) [Rel density] 1.025 Normal 1.005-1.030 [facility] Comment on above: Order Comment: Speci men Type: URINE SPECIMENOrdering Facility: [facility] Address: [address] [place] [address] Performed By: #### 2 4356-8 ####LOONEY LABORATORYCLIA [id number] [address] Urobilinogen Ql (U) 0.2 EU/dL Normal 0.2-1.0 EU/dL [facility] Comment on above: Order Comment: Speci men Type: URINE SPECIMENOrdering Facility: [facility] Address: [address] [place] [address] Performed By: #### 2 4356-8 ####LOONEY LABORATORYCLIA [id number] [address] WBC LM.HPF (Urine sed) [#/Area] 0-5 /HPF Normal 0-5 /HPF [facility] Comment on above: Order Comment: Speci men Type: URINE SPECIMENOrdering Facility: [facility] Address: [address] [place] [address] Performed By: #### 2 4356-8 ####LOONEY LABORATORYCLIA [id number] [address] OF [facility] CNOVon 03-28-2025 CNOV Office Visit ([facility]) -------- ALEXANDRA BELLA ([id number]) 1955 F Date Time Provider Department 03/28/25 10:15 AM MARLON CESAR [facility] During your visit today, we recorded the following information about you: Temperature Pulse Blood pressure Weight 98 degrees 92/minute 123/82 122.9 kg Marlon Cesar MD 04/07/2025 8:28 AM Signed COLORECTAL SURGERY March 28, 2025 Alexandra Mireles Jena This consult was requested by Dr. Rosy Esteban and my final recommendations will be communicated to the requesting health care provider by way of the shared medical record for internal providers or letter via the [employer] for external providers. Recording using xiao qu wu you software for draft documentation of the visit was discussed with the patient/authorized sales representative publications; all questions welcomed and answered. Patient/authorized sales representative publications agreed to proceed Chief Complaint: diverticulitis History of Present Illness: Alexandra Bella is a 69 year old female who presents to the office for evaluation of diverticulitis. She was recently admitted to the hospital on 03/17/25 for acute diverticulitis and started on IV antibiotics. Infectious disease recommended continuing the IV antibiotics at home so a PICC line was placed and home health care was started. PMH: Breast Cancer s/p partial left mastectomy, Colon Cancer, CHF, Endocarditis, GERD, Hypertension, Hyperlipidemia, Hypothyroidism, IBS, pAF (Eliquis and Flecainide), MARILIA, and RA. CT abdomen/pelvis on 03/17/25: Inflammatory changes surrounding a 2 cm outpouching in the mid sigmoid colon (2:99) suggestive of diverticulitis. It is difficult to assess for presence of intramural abscess due to lack of IV contrast. Trace free fluid and fat stranding in the left pelvis Colonoscopy on 11/01/[address] Rosy Esteban - The examined portion of the ileum was normal. - Mild diverticulosis in the sigmoid colon. There was evidence of diverticular spasm. Asya-diverticular erythema was seen. Petechia were visualized in association with the diverticular opening. There was no evidence of diverticular bleeding. - The examination was otherwise normal. - The distal rectum and anal verge are normal on retroflexion view. - Biopsies were taken with a cold forceps from the right colon and left colon for evaluation of microscopic colitis. Pathology: Colon, right, biopsy: - Colonic mucosa with no significant pathologic change. Colon, left, biopsy: - Colonic mucosa with no significant pathologic change PAST MEDICAL HISTORY Diagnosis Date Acute deep vein thrombosis (DVT) of popliteal vein of left lower extremity (HCC) Four DVT's last one 20 years ago- control- and after fracture Asymptomatic postmenopausal status (age-related) (natural) 03/2000 LMP 03/2000 CHF (congestive heart failure) (HCC) Colon cancer (HCC) 2018 Colorectal cancer (HCC) Endocarditis 2017 Essential hypertension 08/24/2018 Gastroesophageal reflux disease without esophagitis 08/24/2018 GERD (gastroesophageal reflux disease) Irritable bowel syndrome Irritable bowel Syndrome Kidney stones 2004 Left-sided chest wall pain 07/17/2016 Multiple gastric ulcers 2020 MARILIA (obstructive sleep apnea) 08/24/2018 Other hyperlipidemia 08/24/2018 Paroxysmal atrial fibrillation (HCC) Personal history of malignant neoplasm of breast 1996 1996 Breast cancer, clinical stage 1 infiltrating carcinoma left breast Phlebitis and thrombophlebitis of other deep vessels of lower extremities Phlebitis Phlebitis and thrombophlebitis of other deep vessels of lower extremities history of 3 DVTs Left Leg PMH - PAST MEDICAL HISTORY OF 09/1991 pap abnormal cells derived from serve dysplasia PMH - PAST MEDICAL HISTORY OF 11/1991 pap moderate - severe dysplasia Postoperative hypothyroidism 08/24/2018 Pre-diabetes Rheumatoid arthritis (HCC) 08/24/2018 Shingles Thyroid disease PAST SURGICAL HISTORY Procedure Laterality Date CARDIAC CATH 2016 CHOLECYSTECTOMY 2000 COLONOSCOPY 11/08/2011 Dr. Esteban-Random Bx-unremarkable. Sigmoid Bx-focal hyperplastic changes. COLONOSCOPY 03/31/2015 Dr. Esteban-evidence of large scar in the perianal area secondary to resection of SCC 2011. Random Bx's-unremarkable. COLONOSCOPY 04/28/2020 Dr. Esteban-bilious gastric fluid. Bile gastritis. Antrum Bx-unremarkable, HP negative. GEJ Bx-mild inflammation. COLONOSCOPY DIAGNOSTIC 11/01/2022 COLPOSCOPY CERVIX UPPER/ADJACENT VAGINA 12/1991 Colposcopy CONIZATION CERVIX W/WO DANDC RPR ELTRD EXC 01/1992 CONE BX, focal atypia EGD 03/31/2015 Dr. Esteban-HH. D2-unremarkable. Stomach body Bx-mild reactive gastropathy, HP negative. Stomach polyps-fundic gland. EGD 12/29/2017 Dr. Esteban-small HH. Multiple gastric polyps-. Non-bleeding erosive gastropathy. Bilious gastric fluid. EGD 2019 EGD DIAGNOSTIC (more content not included)... Normal [facility] CNPNon 03-26-2025 CNPN Telephone (HCSIND) -------- ALEXANDRA BELLA ([id number]) 1955 F Date Time Provider Department 03/26/25 JANE MARTINEZ HCSIND During your visit today, we recorded the following information about you: Jane Martinez RN 03/26/2025 8:25 AM Signed Patient complaining of increased pain to R lower back into groin area - 02/18 and having nausea vomiting and chills this am. Patient is afebrile and vitals signs WNL. She complains of extreme fatigue and just not feeling well in general. Please advise. Thanks, Rosy Murray MD 04/02/2025 8:09 AM Signed Hailey: Please call her and find out about her symptoms and the course oh her treatment and work-up done thus far. Did she reach out to her PCP? MD Terrence Sutton Dawn, JONI 04/07/2025 9:[address] Esteban, please see pt's update below and advise. Thank you, JONI Gabriel Khaled, MD 04/08/2025 4:[address]-scan AP 03/17/2025: Inflammatory changes surrounding a 2 cm outpouching in the mid sigmoid colon (2:99) suggestive of diverticulitis. It is difficult to assess for presence of intramural abscess due to lack of IV contrast. Trace free fluid and fat stranding in the left pelvis. Blood tests 03/24/2025: CBD normal Mild elevation of ALT/AST Per patient: I keep throwing up and still have a lot of nausea some diarrhea. Recommend: CBCD, CMP, amylase AND Lipase, CRP CT-scan abd/pelvis with IV/oral contrast in 1 week if still symptomatic. MD Carlito Sutton Khaled, MD 04/25/2025 9:07 AM Signed Hailey: Results of CT-scan abd/pelvis from 04/23/2025 to my attention please. MD Terrence Sutton Dawn, RN 04/25/2025 9:[address] is still in process. Will monitor. JONI Gabriel Dawn, RN 04/28/2025 2:[address] still in process. Spoke with Diamond at [facility], she transferred to [place] as they read their CTs. Spoke with Neliad, she will send a msg to the Radiologist requesting reading. JONI Gabriel Dawn, RN 04/29/2025 8:[address] results available: IMPRESSION: Resolution of sigmoid diverticulitis. No focal fluid collection or perforation. RESULT: Liver: Subcentimeter right hepatic lobe hypodensity (2:19), stable and too small to characterize but likely benign. Biliary: No bile duct dilation. Gallbladder is absent. Spleen: No mass. No splenomegaly. Pancreas: No mass or duct dilation. Adrenals: No mass. Kidneys: No mass, calculus or hydronephrosis. GI tract: Resolution of inflammatory changes adjacent to diverticula the sigmoid colon. Small amount of postinfectious scarring likely extending from the sigmoid colon. No pericolonic abscess. No dilated or thickened bowel. Lymph nodes: Stable 1.4 cm periportal lymph node. Mesentery/Peritoneum: No ascites or mass. Retroperitoneum: No mass. Vasculature: - Abdominal aorta and iliac arteries: Atherosclerotic calcifications without aneurysm. - Celiac and SMA: Patent without stenosis. - Portal venous system (SMV, splenic vein, portal vein and branches): Patent. - Hepatic veins: Patent. - Other: Infrarenal IVC filter present Pelvis: No mass, ascites or fluid collection. Bones/Soft Tissues: Degenerative changes. Lower thorax: Unremarkable. Localizer images: No additional findings. Hailey Ocampo RN 04/29/2025 8:33 AM Signed Carlito, Khaled, MD to [place] Leonora Davalos, SHARLA.Marlon Gorman MD (Selected Message) 04/28/25 5:[address]-scan of Abd/pelvis showed Resolution of sigmoid diverticulitis. No focal fluid collection or perforation. Small amount of postinfectious scarring likely extending from the sigmoid colon. No pericolonic abscess. Rosy Esteban MD Allergies As of Date: 03/26/2025 Noted Allergy Reaction ADHESIVE TAPE 01/07/2002 Comments: rash AVELOX (MOXIFLOXACIN HCL) 02/16/2009 Comments: Heart race BIAXIN (CLARITHROMYCIN) 02/17/2009 4 - Hives 8 - GI Upset ERYC (ERYTHROMYCIN) 02/16/2009 7 - Swelling METFORMIN 05/25/2022 8 - GI Upset Comments: Throwing up, Diarrhea PENICILLINS 07/07/2003 QUINOLONES 07/12/2004 Comments: Avelox REMICADE (INFLIXIMAB) 10/21/2020 12 - Shortness of Breath SPIRONOLACTONE 05/14/2020 5 - Intolerance Comments: Headaches SUTURES 11/28/2023 14 - Other: See Comments Comments: Suture do not dissolve DEMEROL (MEPERIDINE (PF)) 03/14/2012 14 - Other: See Comments Comments: Arm swelled up locally and turned red. Date Reviewed: 03/26/2025 Reviewed by: Jane Martinez, JONI - Fully Assessed Reason for Visit: Home Care [4073] Cmt: Patient update Primary Visit Diagnosis:Diverticulitis [K57.92] Other Visit Diagnoses:Nausea and vomiting, unspecified vomiting type [R11.2] Diarrhea, unspecified type [R19.7] Order(s):COMPLETE BLOOD COUNT AND DIFFERENTIAL [SQCBCDIF] Order #: [id number] FUTURE COMPREHENSIVE METABOLIC PANEL [SQCMP] Order #: (more content not included)... Normal [facility] CNPN Telephone (HCSIND) -------- ALEXANDRA BELLA ([id number]) 1955 F Date Time Provider Department 03/26/25 KWASI CORTES During your visit today, we recorded the following information about you: Kwasi Cortes, JONI 03/26/2025 4:59 PM Signed [facility] Team: We received an email that this patient may have her IV PICC line removed om 03/27/25. I just wanted to mention, her Flagyl was not started until . The order reads q 8 hours x7 days beginning 03/24-03/31 (which is confusing.) She will have 6 doses left by tomorrow am. The Ceftriaxone 2 GM daily x6 days from 03/21-03/27/25 should end 03/27. Are we supposed to stop the Flagyl and pull the PICC tomorrow after the last dose of Ceftriaxone? Even though she is in the middle of her Flagyl therapy? Please clarify. Thank you! Allergies As of Date: 03/26/2025 Noted Allergy Reaction ADHESIVE TAPE 01/07/2002 Comments: rash AVELOX (MOXIFLOXACIN HCL) 02/16/2009 Comments: Heart race BIAXIN (CLARITHROMYCIN) 02/17/2009 4 - Hives 8 - GI Upset ERYC (ERYTHROMYCIN) 02/16/2009 7 - Swelling METFORMIN 05/25/2022 8 - GI Upset Comments: Throwing up, Diarrhea PENICILLINS 07/07/2003 QUINOLONES 07/12/2004 Comments: Avelox REMICADE (INFLIXIMAB) 10/21/2020 12 - Shortness of Breath SPIRONOLACTONE 05/14/2020 5 - Intolerance Comments: Headaches SUTURES 11/28/2023 14 - Other: See Comments Comments: Suture do not dissolve DEMEROL (MEPERIDINE (PF)) 03/14/2012 14 - Other: See Comments Comments: Arm swelled up locally and turned red. Date Reviewed: 03/26/2025 Reviewed by: Jane Martinez, JONI - Fully Assessed Reason for Visit: Home Care [4073] Cmt: Clarification of IV dosing order Flagyl. Prescriptions as of 04/01/2025 - neomycin 500 mg tablet Take 2 tablets by mouth as directed. Take 2 tablet at 6pm, 7pm, and 11pm the evening prior to surgery. - metroNIDAZOLE (FLAGYL) 500 mg tablet Take 1 tablet by mouth three times a day. Take 1 tablet at 6pm, 7pm, and 11pm, the evening prior to surgery. - losartan (COZAAR) 50 mg tablet Take 50 mg by mouth once daily. - metoprolol tartrate, short acting, (LOPRESSOR) 25 mg tablet Take 25 mg by mouth once daily. 1/2 tab - furosemide (LASIX) 40 mg tablet Take 1 tablet by mouth once daily. - sucralfate (CARAFATE) 100 mg/mL suspension Take 10 mL by mouth two times a day. Take on empty stomach and avoid eating or drinking for 30 mins after taking. - tirzepatide (MOUNJARO) 7.5 mg/0.5 mL pen injector Inject 7.5 mg subcutaneously one time a week. - levothyroxine (SYNTHROID) 200 mcg tablet Take one tablet Monday through Monday,and half a pill on Saturdays and none on Sundays. - ONETOUCH ULTRA TEST test strip Use as directed to check glucose once daily. E11.9 - ONETOUCH ULTRASOFT LANCETS Use as directed to check glucose once daily.E11.9 - Blood-Glucose Meter (ONETOUCH ULTRA2 METER) monitoring kit Use to test blood sugar daily, DX: E11.9, NIDDM - omeprazole (PRILOSEC) 40 mg capsule TAKE 1 CAPSULE BY MOUTH ONCE DAILY - losartan (COZAAR) 25 mg tablet Take 0.5 tablets by mouth once daily. - flecainide (TAMBOCOR) 100 mg tablet Take 1 tablet by mouth every 12 hours. - apixaban (ELIQUIS) 5 mg tab(s) Take 1 tablet by mouth twice daily. - potassium chloride (K-TAB) 10 mEq tablet Take 1 tablet by mouth once daily. - traMADol (ULTRAM) 50 mg tablet Take 1 tablet by mouth as needed for pain. - albuterol HFA (PROVENTIL HFA, VENTOLIN HFA) 90 mcg/actuation inhaler as needed for wheezing/shortness of breath. - golimumab (SIMPONI ARIA INTRAVENOUS) Inject intravenously every 8 weeks. 2mg/kg (242mg) - CPAP - celecoxib (CELEBREX) 200 mg capsule Take 1 capsule by mouth once daily. Problem List As Of Date 03/26/2025 Noted Resolved History of left breast cancer [Z85.3] 07/12/2004 LUMP OR MASS IN BREAST [N63.0] 09/27/2004 DEEP VENOUS PHLEBITIS-LEG NEC [I80.299] Right knee injury [S89.91XA] 10/03/2012 Right wrist pain [M25.531] 10/03/2012 Tear of right meniscus as current injury [S83.2*10/03/2012 07/08/2019 Left-sided chest wall pain [R07.89] 07/17/2016 11/11/2020 Mass on back [R22.2] 08/14/2018 11/26/2020 MARILIA on CPAP [G47.33] 08/24/2018 Postoperative hypothyroidism [E89.0] 08/24/2018 Essential hypertension [I10] 08/24/2018 Mixed hyperlipidemia [E78.2] 08/24/2018 02/14/2022 Gastroesophageal reflux disease without esophag*08/24/2018 Rheumatoid arthritis (HCC) [M06.9] 08/24/2018 Chest pain [R07.9] 07/05/2019 11/11/2020 Dyspnea [R06.00] 07/06/2019 Atrial fibrillation (HCC) [I48.91] 07/08/2019 Chronic diastolic CHF (congestive heart failure*07/08/2019 Lipoma of torso [D17.1] 11/05/2020 Coronary artery disease involving [place]*11/11/2020 History of DVT (deep vein thrombosis) [Z86.718] 11/26/2020 History of colorectal cancer [Z85.048] 11/26/2020 CHF (congestive heart failure) (HCC) [ (more content not included)... Normal [facility] Comprehensive metabolic 2000 panelon 03-26-2025 Albumin [Mass/Vol] 3.5 g/dL Low 3.9-4.9 [facility] Comment on above: Order Comment: Speci men Type: BLOOD SPECIMEN [facility] Address: [address] [place] [address] Performed By: #### 5 7021-8 #### [facility] CLIA [id number] [address] [place] [address], [place] [address] [place] ALP [Catalytic activity/Vol] 88 U/L Normal 34-123 [facility] Comment on above: Order Comment: Speci men Type: BLOOD SPECIMEN Ordering Facility: [facility] Address: [address] [place] [address] Performed By: #### 5 7021-8 #### [facility] CLIA [id number] [address] [place] [address] [place] ALT With P-5'-P [Catalytic activity/Vol] 54 U/L High 7-38 [facility] Comment on above: Order Comment: Speci men Type: BLOOD SPECIMEN [facility] Address: [address] [place] [address] Performed By: #### 5 7021-8 #### [facility] CLIA [id number] [address] [place] [address] [place] Anion gap [Moles/Vol] 12 mmol/L Normal 8-15 [facility] Comment on above: Order Comment: Speci men Type: BLOOD SPECIMEN [facility]: [facility] Address: [address] [place] [address] Performed By: #### 5 7021-8 #### [facility] CLIA [id number] [address] [place] [address] [place] AST With P-5'-P [Catalytic activity/Vol] 67 U/L High 13-35 [facility] Comment on above: Order Comment: Speci men Type: BLOOD SPECIMEN Ordering Facility: [facility] Address: [address] [place] [address] Performed By: #### 5 7021-8 #### [facility] CLIA [id number] [address] [place] [address] [place] Bilirubin [Mass/Vol] 0.3 mg/dL Normal 0.2-1.3 [facility] Comment on above: Order Comment: Speci men Type: BLOOD SPECIMEN Ordering Facility: [facility] Address: [address] [place] [address] Performed By: #### 5 7021-8 #### [facility] CLIA [id number] [address] [place] [address] [place] Calcium [Mass/Vol] 9.8 mg/dL Normal 8.5-10.2 [facility] Comment on above: Order Comment: Speci men Type: BLOOD SPECIMEN Ordering Facility: [facility] Address: [address] [place] [address] Performed By: #### 5 7021-8 #### [facility] CLIA [id number] [address] [place] [address] [place] Chloride [Moles/Vol] 105 mmol/L Normal 98-107 [facility] Comment on above: Order Comment: Speci men Type: BLOOD SPECIMEN Ordering Facility: [facility] Address: [address] [place] [address] Performed By: #### 5 7021-8 #### [facility] CLIA [id number] [address] [place] [address] [place] CO2 [Moles/Vol] 23 mmol/L Normal 22-30 [facility] Comment on above: Order Comment: Speci men Type: BLOOD SPECIMEN Ordering Facility: [facility] Address: [address] [place] [address] Performed By: #### 5 7021-8 #### [facility] CLIA [id number] [address] [place] [address] [place] Creatinine [Mass/Vol] 0.67 mg/dL Normal 0.58-0.96 [facility] Comment on above: Order Comment: Speci men Type: BLOOD SPECIMEN Ordering Facility: [facility] Address: [address] [place] [address] Performed By: #### 5 7021-8 #### [facility] CLIA [id number] [address] [place] [address] [place] eGFRcr SerPlBld CKD-EPI 2020 95 mL/min/1.73m??? Normal >=60 [facility] Comment on above: Order Comment: Speci men Type: BLOOD SPECIMEN Ordering Facility: [facility] Address: [address] [place] [address] Result Comment: Hortensia mated Glomerular Filtration Rate (eGFR) is calculated using the 2020 CKD-EPI creatinine equation. This equation utilizes serum creatinine, sex, and age as parameters. The creatinine assay has traceable calibration to isotope dilution-mass spectrometry. Refer to KDIGO guidelines for clinical interpretation. In patients with unstable renal function, e.g. those with acute kidney injury, the eGFR may not accurately reflect actual GFR. Performed By: #### 5 7021-8 #### [facility] CLIA [id number] [address] [place] [id number] [place] Glucose [Mass/Vol] 131 mg/dL High 74-99 [facility] Comment on above: Order Comment: Harry lunsford Type: BLOOD SPECIMEN Ordering Facility: [facility] Address: [address] [place] [address] Result Comment: The [place] Diabetes Association (ADA) provides guidance for cutoff values for fasting glucose and random glucose. The ADA defines fasting as no caloric intake for at least 8 hours. Fasting plasma glucose results between 100 to 125 mg/dL indicate increased risk for diabetes (prediabetes). Fasting plasma glucose results greater than or equal to 126 mg/dL meet the criteria for diagnosis of diabetes. In the absence of unequivocal hyperglycemia, results should be confirmed by repeat testing. In a patient with classic symptoms of hyperglycemia or hyperglycemic crisis, random plasma glucose results greater than or equal to 200 mg/dL meet the criteria for diagnosis of diabetes. Reference: Standards of Medical Care in Diabetes 2016, [place] Diabetes Association. Diabetes Care. 2016.39(Suppl 1). Performed By: #### 5 7021-8 #### [facility] CLIA [id number] [address] [place] [address] [place] Potassium [Moles/Vol] 4.0 mmol/L Normal 3.7-5.1 [facility] Comment on above: Order Comment: Harry lunsford Type: BLOOD SPECIMEN Ordering Facility: [facility] Address: [address] [place], [place] [address] Performed By: #### 5 7021-8 #### [facility] CLIA [id number] [address] [place] [address] [place] Protein [Mass/Vol] 7.2 g/dL Normal 6.3-8.0 [facility] Comment on above: Order Comment: Speci men Type: BLOOD SPECIMEN Ordering Facility: [facility] Address: [address] [place] [address] Performed By: #### 5 7021-8 #### [facility] CLIA [id number] [address] [place] [address] [place] Sodium [Moles/Vol] 140 mmol/L Normal 136-144 [facility] Comment on above: Order Comment: Speci men Type: BLOOD SPECIMEN Ordering Facility: [facility] Address: [address] [place] [address] Performed By: #### 5 7021-8 #### [facility] CLIA [id number] [address] [place] [address] [place] Urea nitrogen [Mass/Vol] 9 mg/dL Normal 7-21 [facility] Comment on above: Order Comment: Speci men Type: BLOOD SPECIMEN Ordering Facility: [facility] Address: [address] [place] [address] Performed By: #### 5 7021-8 #### [facility] CLIA [id number] [address] [place] [address] [place] CBC W Auto Differential pane l (Bld)on 03-24-2025 Basophils (Bld) [#/Vol] 0.03 10*3/uL Normal <0.11 [facility] Comment on above: Order Comment: Speci men Type: BLOOD SPECIMEN Ordering Facility: [facility] Address: [address] [place] [address] Performed By: #### 1 9123-9, 87354-5 #### [facility] CLIA [id number] [address] [place] [address] [place] Basophils/100 WBC (Bld) 0.5 % Normal [facility] Comment on above: Order Comment: Speci men Type: BLOOD SPECIMEN Ordering Facility: [facility] Address: [address] [place] [address] Performed By: #### 1 9123-05, #### [facility] CLIA [id number] [address] [place] [address] [place] Differential cell count method Nom (Bld) Auto Normal [facility] Comment on above: Order Comment: Speci men Type: BLOOD SPECIMEN Ordering Facility: [facility] Address: [address] [place] [address] Performed By: #### 1 9123-05, #### [facility] CLIA [id number] [address] [place] [address] [place] Eosinophils (Bld) [#/Vol] 0.20 10*3/uL Normal <0.46 [facility] Comment on above: Order Comment: Speci men Type: BLOOD SPECIMEN Ordering Facility: [facility] Address: [address] [place] [address] Performed By: #### 1 9123-05, #### [facility] CLIA [id number] [address] [place] Eosinophils/100 WBC (Bld) 3.5 % Normal [facility] Comment on above: Order Comment: Speci men Type: BLOOD SPECIMEN Ordering Facility: [facility] Address: [address] [place] [address] Performed By: #### 1 9123-05, #### [facility] CLIA [id number] [address] [place] Erythrocyte distribution width (RBC) [Ratio] 13.8 % Normal 11.5-15.0 [facility] Comment on above: Order Comment: Speci men Type: BLOOD SPECIMEN Ordering Facility: [facility] Address: [address] [place] [address] Performed By: #### 1 9123-05, #### [facility] CLIA [id number] [address] OF [place] Hematocrit (Bld) [Volume fraction] 38.5 % Normal 36.0-46.0 [facility] Comment on above: Order Comment: Speci men Type: BLOOD SPECIMEN Ordering Facility: [facility] Address: [address] [place] [address] Performed By: #### 1 23-9, 83321-8 #### [facility] CLIA [id number] [address] [place] [address] [place] Hemoglobin (Bld) [Mass/Vol] 12.4 g/dL Normal 11.5-15.5 [facility] Comment on above: Order Comment: Speci men Type: BLOOD SPECIMEN Ordering Facility: [facility] Address: [address] [place] [address] Performed By: #### 1 23-9, 85489-1 #### [facility] CLIA [id number] [address] [place] [address] [place] Immature granulocytes (Bld) [#/Vol] 0.04 10*3/uL Normal <0.10 [facility] Comment on above: Order Comment: Speci men Type: BLOOD SPECIMEN Ordering Facility: [facility] Address: [address] [place] [address] Performed By: #### 1 239, 16040-6 #### [facility] CLIA [id number] [address] Immature granulocytes/100 WBC (Bld) 0.7 % Normal [facility] Comment on above: Order Comment: Speci men Type: BLOOD SPECIMEN Ordering Facility: [facility] Address: [address] [place] [address] Performed By: #### 1 239, 07050-1 #### [facility] CLIA [id number] [address] [place] [address] [place] Lymphocytes (Bld) [#/Vol] 1.52 10*3/uL Normal 1.00-4.00 [facility] Comment on above: Order Comment: Speci men Type: BLOOD SPECIMEN Ordering Facility: [facility] Address: [address] [place] [address] Performed By: #### 1 23-9, 55655-5 #### [facility] CLIA [id number] [address] [place] Lymphocytes/100 WBC (Bld) 26.3 % Normal [facility] Comment on above: Order Comment: Speci men Type: BLOOD SPECIMEN Ordering Facility: [facility] Address: [address] [place] [address] Performed By: #### 1 239, #### [facility] CLIA [id number] [address] MCH (RBC) [Entitic mass] 29.5 pg Normal 26.0-34.0 [facility] Comment on above: Order Comment: Speci men Type: BLOOD SPECIMEN Ordering Facility: [facility] Address: [address] [place] [address] Performed By: #### 1 9, #### [facility] CLIA [id number] [address] MCHC (RBC) [Mass/Vol] 32.2 g/dL Normal 30.5-36.0 [facility] Comment on above: Order Comment: Speci men Type: BLOOD SPECIMEN Ordering Facility: [facility] Address: [address] [place] [address] Performed By: #### 1 9, #### [facility] CLIA [id number] [address] MCV (RBC) [Entitic vol] 91.4 fL Normal 80.0-100.0 [facility] Comment on above: Order Comment: Speci men Type: BLOOD SPECIMEN Ordering Facility: [facility] Address: [address] [place] [address] Performed By: #### 1 239, #### [facility] CLIA [id number] [address] Monocytes (Bld) [#/Vol] 0.44 10*3/uL Normal <0.87 [facility] Comment on above: Order Comment: Speci men Type: BLOOD SPECIMEN Ordering Facility: [facility] Address: [address] [place] [address] Performed By: #### 1 239, 20039-9 #### [facility] CLIA [id number] [address] [place] [address] [place] Monocytes/100 WBC (Bld) 7.6 % Normal [facility] Comment on above: Order Comment: Speci men Type: BLOOD SPECIMEN Ordering Facility: [facility] Address: [address] [place] [address] Performed By: #### 1 23, 31941-2 #### [facility] CLIA [id number] [address] [place] [address] [place] Neutrophils (Bld) [#/Vol] 3.55 10*3/uL Normal 1.45-7.50 [facility] Comment on above: Order Comment: Speci men Type: BLOOD SPECIMEN Ordering Facility: [facility] Address: [address] [place] [address] Performed By: #### 1 9123-05, 37002-9 #### [facility] CLIA [id number] [address] [place] [address] [place] Neutrophils/100 WBC (Bld) 61.4 % Normal [facility] Comment on above: Order Comment: Speci men Type: BLOOD SPECIMEN Ordering Facility: [facility] Address: [address] [place] [address] Performed By: #### 1 9123-05, #### [facility] CLIA [id number] [address] [place] [address] [place] Nucleated RBC (Bld) [#/Vol] 10*3/uL Normal <0.01 [facility] Comment on above: Order Comment: Speci men Type: BLOOD SPECIMEN Ordering Facility: [facility] Address: [address] [place] [address] Performed By: #### 1 239, #### [facility] CLIA [id number] [address] [place] [address] [place] [facility] OF [place] Nucleated RBC/100 WBC (Bld) [Ratio] 0.0 /100 WBC Normal [facility] Comment on above: Order Comment: Speci men Type: BLOOD SPECIMEN Ordering Facility: [facility] Address: [address] [place] [address] Performed By: #### 1 23-9, 07571-6 #### [facility] CLIA [id number] [address] [place] [address] [place] Platelet mean volume (Bld) [Entitic vol] 11.0 fL Normal 9.0-12.7 [facility] Comment on above: Order Comment: Speci men Type: BLOOD SPECIMEN Ordering Facility: [facility] Address: [facility] [place] [address] Performed By: #### 1 23-9, 59260-8 #### [facility] CLIA [id number] [address] [place] [address] [place] Platelets (Bld) [#/Vol] 233 10*3/uL Normal 150-400 [facility] Comment on above: Order Comment: Speci men Type: BLOOD SPECIMEN Ordering Facility: [facility] Address: [address] [place] [address] Performed By: #### 1 239, 48657-5 #### [facility] CLIA [id number] [address] [place] [address] [place] RBC (Bld) [#/Vol] 4.21 10*6/uL Normal 3.90-5.20 [facility] Comment on above: Order Comment: Speci men Type: BLOOD SPECIMEN Ordering Facility: [facility] Address: [address] [place] [address] Performed By: #### 1 23-9, 21588-0 #### [facility] CLIA [id number] [address] [place] [address] [place] WBC (Bld) [#/Vol] 5.78 10*3/uL Normal 3.70-11.00 [facility] Comment on above: Order Comment: Speci men Type: BLOOD SPECIMEN Ordering Facility: [facility] Address: [address] [place] [address] Performed By: #### 1 9123-9, 02648-9 #### [facility] CLIA [id number] [address] OF [place] Creatinine + eGFR Pnl SerPlB ldon 03-24-2025 Creatinine and Glomerular filtration rate.predicted panel (S/P/Bld) 95 mL/min/1.73m??? Normal >=60 [facility] Comment on above: Order Comment: Harry lunsford Type: BLOOD SPECIMENOrdering Facility: [facility] Address: [address] [place] [address], [place] [address] Result Comment: Hortensia mated Glomerular Filtration Rate (eGFR) is calculated using the 2020 CKD-EPI creatinine equation. This equation utilizes serum creatinine, sex, and age as parameters. The creatinine assay has traceable calibration to isotope dilution-mass spectrometry. Refer to KDIGO guidelines for clinical interpretation. In patients with unstable renal function, e.g. those with acute kidney injury, the eGFR may not accurately reflect actual GFR. Performed By: #### 4 5066-8, 60035-2 ####[facility] [id number] [address] STATES OF [facility] Creatinine and Glomerular fi ltration rate.predicted panel (S/P/Bld)on 03-24-2025 Creatinine [Mass/Vol] 0.67 mg/dL Normal 0.58-0.96 [facility] Comment on above: Order Comment: Harry lunsford Type: BLOOD SPECIMENOrdering Facility: [facility] Address: [address] [place] [address], [place] [address] Performed By: #### 4 5066-8, 36142-6 ####[facility] [id number] [address] STATES OF [facility] Hepatic function 2000 panelo n 03-24-2025 Albumin [Mass/Vol] 3.6 g/dL Low 3.9-4.9 [facility] Comment on above: Order Comment: Harry lunsford Type: BLOOD SPECIMENOrdering Facility: [facility] Address: [address] [place] [address], [place] [address] Performed By: #### 4 5066-8, 14592-8 ####[facility] [id number] [place] [id number] [facility] [place] ALP [Catalytic activity/Vol] 86 U/L Normal 34-123 [facility] Comment on above: Order Comment: Harry jonn Type: BLOOD SPECIMENOrdering Facility: [facility] Address: [address] [place] [address], [place] [address] Performed By: #### 4 5066-8, 29164-7 ####[facility] [id number] [place] [address] [place] ALT [Catalytic activity/Vol] 62 U/L High 7-38 [facility] Comment on above: Order Comment: Speci men Type: BLOOD SPECIMENOrdering Facility: [facility] Address: [address] [place] [address], [place] [id number] Performed By: #### 4 5066-8, 91515-3 ####[facility] [id number] [place] [address] [place] AST [Catalytic activity/Vol] 93 U/L High 13-35 [facility] Comment on above: Order Comment: Speci men Type: BLOOD SPECIMENOrdering Facility: [facility] Address: [address] [place] [address], [place] [address] Performed By: #### 4 5066-8, 76139-3 ####[facility] [id number] [place] [address] [place] Bilirubin [Mass/Vol] 0.3 mg/dL Normal 0.2-1.3 [facility] Comment on above: Order Comment: Speci men Type: BLOOD SPECIMENOrdering Facility: [facility] Address: [address] [place] [address], [place] [address] Performed By: #### 4 5066-8, 82882-2 ####[facility] [id number] [address] STATES OF [place] Bilirubin.conjugated [Mass/Vol] 0.1 mg/dL Normal <0.3 [facility] Comment on above: Order Comment: Speci men Type: BLOOD SPECIMENOrdering Facility: [facility] Address: [address] [place] [address], [place] [id number] Performed By: #### 4 5066-8, 28140-0 ####[facility] [id number] [place] [address] [facility] OF [place] Protein [Mass/Vol] 7.1 g/dL Normal 6.3-8.0 [facility] Comment on above: Order Comment: Speci men Type: BLOOD SPECIMENOrdering Facility: [facility] Address: [address] [place] [address], [place] [address] Performed By: #### 4 5066-8, 36519-3 ####[facility] [id number] [place] [address] [place] CNPNon 03-21-2025 CNPN Telephone (HCSIND) -------- ALEXANDRA BELLA ([id number]) 1955 F Date Time Provider Department 03/21/25 BETSY FUENTES HCSIND During your visit today, we recorded the following information about you: Betsy Fuentes RN 03/21/2025 2:02 PM Signed Hello- Patient was admitted to home care today for IV antibiotics due to Diverticulitis. She expressed concern that she will most likely have surgery in April and with her poor venous access, she asked if she could keep the PICC line until after the surgery. She does not want to have to have another one placed. I told her I would pass along her concerns. Please advise. Betsy Fuentes RN [facility] Allergies As of Date: 03/21/2025 Noted Allergy Reaction ADHESIVE TAPE 01/07/2002 Comments: rash AVELOX (MOXIFLOXACIN HCL) 02/16/2009 Comments: Heart race BIAXIN (CLARITHROMYCIN) 02/17/2009 4 - Hives 8 - GI Upset ERYC (ERYTHROMYCIN) 02/16/2009 7 - Swelling METFORMIN 05/25/2022 8 - GI Upset Comments: Throwing up, Diarrhea PENICILLINS 07/07/2003 QUINOLONES 07/12/2004 Comments: Avelox REMICADE (INFLIXIMAB) 10/21/2020 12 - Shortness of Breath SPIRONOLACTONE 05/14/2020 5 - Intolerance Comments: Headaches SUTURES 11/28/2023 14 - Other: See Comments Comments: Suture do not dissolve DEMEROL (MEPERIDINE (PF)) 03/14/2012 14 - Other: See Comments Comments: Arm swelled up locally and turned red. Date Reviewed: 03/21/2025 Reviewed by: Betsy Fuentes RN - Fully Assessed Reason for Visit: Patient Update [1234] Cmt: Home care Prescriptions as of 03/21/2025 - losartan (COZAAR) 50 mg tablet Take 50 mg by mouth once daily. - metoprolol tartrate, short acting, (LOPRESSOR) 25 mg tablet Take 25 mg by mouth once daily. 1/2 tab - furosemide (LASIX) 40 mg tablet Take 1 tablet by mouth once daily. - cefTRIAXone (ROCEPHIN) 2 g in D5W 100 mL Vial-Bag Inject 100 mL intravenously every 24 hours for 6 days. - metroNIDAZOLE (FLAGYL) 500 mg tablet Take 1 tablet by mouth three times a day for 7 days. - oxyCODONE IR (ROXICODONE) 5 mg immediate release tablet Take 1 tablet by mouth every 8 hours as needed for pain (ONLY FOR SEVERE PAIN) for up to 5 days. - sucralfate (CARAFATE) 100 mg/mL suspension Take 10 mL by mouth two times a day. Take on empty stomach and avoid eating or drinking for 30 mins after taking. - tirzepatide (MOUNJARO) 7.5 mg/0.5 mL pen injector Inject 7.5 mg subcutaneously one time a week. - levothyroxine (SYNTHROID) 200 mcg tablet Take one tablet Monday through Monday,and half a pill on Saturdays and none on Sundays. - ONETOUCH ULTRA TEST test strip Use as directed to check glucose once daily. E11.9 - ONETOUCH ULTRASOFT LANCETS Use as directed to check glucose once daily.E11.9 - Blood-Glucose Meter (ONETOUCH ULTRA2 METER) monitoring kit Use to test blood sugar daily, DX: E11.9, NIDDM - omeprazole (PRILOSEC) 40 mg capsule TAKE 1 CAPSULE BY MOUTH ONCE DAILY - losartan (COZAAR) 25 mg tablet Take 0.5 tablets by mouth once daily. - flecainide (TAMBOCOR) 100 mg tablet Take 1 tablet by mouth every 12 hours. - apixaban (ELIQUIS) 5 mg tab(s) Take 1 tablet by mouth twice daily. - potassium chloride (K-TAB) 10 mEq tablet Take 1 tablet by mouth once daily. - traMADol (ULTRAM) 50 mg tablet Take 1 tablet by mouth as needed for pain. - albuterol HFA (PROVENTIL HFA, VENTOLIN HFA) 90 mcg/actuation inhaler as needed for wheezing/shortness of breath. - golimumab (SIMPONI ARIA INTRAVENOUS) Inject intravenously every 8 weeks. 2mg/kg (242mg) - CPAP - celecoxib (CELEBREX) 200 mg capsule Take 1 capsule by mouth once daily. Problem List As Of Date 03/21/2025 Noted Resolved History of left breast cancer [Z85.3] 07/12/2004 LUMP OR MASS IN BREAST [N63.0] 09/27/2004 DEEP VENOUS PHLEBITIS-LEG NEC [I80.299] Right knee injury [S89.91XA] 10/03/2012 Right wrist pain [M25.531] 10/03/2012 Tear of right meniscus as current injury [S83.2*10/03/2012 07/08/2019 Left-sided chest wall pain [R07.89] 07/17/2016 11/11/2020 Mass on back [R22.2] 08/14/2018 11/26/2020 MARILIA on CPAP [G47.33] 08/24/2018 Postoperative hypothyroidism [E89.0] 08/24/2018 Essential hypertension [I10] 08/24/2018 Mixed hyperlipidemia [E78.2] 08/24/2018 02/14/2022 Gastroesophageal reflux disease without esophag*08/24/2018 Rheumatoid arthritis (HCC) [M06.9] 08/24/2018 Chest pain [R07.9] 07/05/2019 11/11/2020 Dyspnea [R06.00] 07/06/2019 Atrial fibrillation (HCC) [I48.91] 07/08/2019 Chronic diastolic CHF (congestive heart failure*07/08/2019 Lipoma of torso [D17.1] 11/05/2020 Coronary artery disease involving [place]*11/11/2020 History of DVT (deep vein thrombosis) [Z86.718] 11/26/2020 History of colorectal cancer [Z85.048] 11/26/2020 CHF (congestive heart failure) (HCC) [I50.9] 02/14/2022 Encounter for monitoring flecainide therapy [Z5*11/02/2021 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 Normal [facility] Basic metabolic 2000 panelon 03-20-2025 Anion gap [Moles/Vol] 12 mmol/L Normal 8-15 [facility] Comment on above: Order Comment: Speci men Type: BLOOD SPECIMENOrdering Facility: [facility] Address: [address] [place] [address] Performed By: #### 2 432-2, ####[facility] [id number] [place] [address] [place] Calcium [Mass/Vol] 9.5 mg/dL Normal 8.5-10.2 [facility] Comment on above: Order Comment: Speci men Type: BLOOD SPECIMENOrdering Facility: [facility] Address: [address] [place] [address] Performed By: #### 2 4320-2, ####[facility] [id number] [place] [address] [place] Chloride [Moles/Vol] 104 mmol/L Normal 98-107 [facility] Comment on above: Order Comment: Speci men Type: BLOOD SPECIMENOrdering Facility: [facility] Address: [address] [place] [address] Performed By: #### 2 4320-2, ####[facility] [id number] [place] [address] [place] CO2 [Moles/Vol] 24 mmol/L Normal 22-30 [facility] Comment on above: Order Comment: Speci men Type: BLOOD SPECIMENOrdering Facility: [facility] Address: [address] [place] [address] Performed By: #### 2 432-2, ####[facility] [id number] [place] [address] [place] Creatinine [Mass/Vol] 0.70 mg/dL Normal 0.58-0.96 [facility] Comment on above: Order Comment: Speci men Type: BLOOD SPECIMENOrdering Facility: [facility] Address: [address] [place] [address] Performed By: #### 2 4321-2, ####[facility]IA [id number] [place] [address] [place] Creatinine and Glomerular filtration rate.predicted panel (S/P/Bld) 94 mL/min/1.73m??? Normal >=60 [facility] Comment on above: Order Comment: Harry lunsford Type: BLOOD SPECIMENOrdering Facility: [facility] Address: [address] [place] [address] Result Comment: Hortensia mated Glomerular Filtration Rate (eGFR) is calculated using the 2020 CKD-EPI creatinine equation. This equation utilizes serum creatinine, sex, and age as parameters. The creatinine assay has traceable calibration to isotope dilution-mass spectrometry. Refer to KDIGO guidelines for clinical interpretation. In patients with unstable renal function, e.g. those with acute kidney injury, the eGFR may not accurately reflect actual GFR. Performed By: #### 2 432-, ####[facility] [id number] [place] [address] [place] Glucose [Mass/Vol] 128 mg/dL High 74-99 [facility] Comment on above: Order Comment: Harry lunsford Type: BLOOD SPECIMENOrdering Facility: [facility] Address: [address] [place] [address] Result Comment: The [place] [employer] (ADA) provides guidance for cutoff values for fasting glucose and random glucose. The ADA defines fasting as no caloric intake for at least 8 hours. Fasting plasma glucose results between 100 to 125 mg/dL indicate increased risk for diabetes (prediabetes). Fasting plasma glucose results greater than or equal to 126 mg/dL meet the criteria for diagnosis of diabetes. In the absence of unequivocal hyperglycemia, results should be confirmed by repeat testing. In a patient with classic symptoms of hyperglycemia or hyperglycemic crisis, random plasma glucose results greater than or equal to 200 mg/dL meet the criteria for diagnosis of diabetes. Reference: Standards of Medical Care in Diabetes 2016, [place] [employer]. Diabetes Care. 2016.39(Suppl 1). Performed By: #### 2 4321-2, ####[facility] LABORATORYCLIA [id number] [place] [address] [place] Potassium [Moles/Vol] 3.4 mmol/L Low 3.7-5.1 [facility] Comment on above: Order Comment: Speci men Type: BLOOD SPECIMENOrdering Facility: [facility] Address: [address] [place] [address] Performed By: #### 2 4321-2, ####LO[facility] LABORATORYCLIA [id number] [address] [place] Sodium [Moles/Vol] 140 mmol/L Normal 136-144 [facility] Comment on above: Order Comment: Speci men Type: BLOOD SPECIMENOrdering Facility: [facility] Address: [address] [place] [address] Performed By: #### 2 4321-2, ####LOONEY LABORATORYCLIA [id number] [address] Urea nitrogen [Mass/Vol] 7 mg/dL Normal 7-21 [facility] Comment on above: Order Comment: Speci men Type: BLOOD SPECIMENOrdering Facility: [facility] Address: [address] [place] [address] Performed By: #### 2 4321-2, ####LO[facility] LABORATORYCLIA [id number] [address] [place] CBC panel Auto (Bld)on 03-20 Erythrocyte distribution width (RBC) [Ratio] 13.2 % Normal 11.5-15.0 [facility] Comment on above: Order Comment: Speci men Type: BLOOD SPECIMENOrdering Facility: [facility] Address: [address] [place] [address] Performed By: #### 5 8410-2 ####LOONE[facility] LABORATORYCLIA [id number] [address] Hematocrit (Bld) [Volume fraction] 34.4 % Low 36.0-46.0 [facility] Comment on above: Order Comment: Speci men Type: BLOOD SPECIMENOrdering Facility: [facility] Address: [address] [place] [address] Performed By: #### 5 8410-2 ####LOONE[facility] LABORATORYCLIA [id number] [place] [address] [place] Hemoglobin (Bld) [Mass/Vol] 11.6 g/dL Normal 11.5-15.5 [facility] Comment on above: Order Comment: Speci men Type: BLOOD SPECIMENOrdering Facility: [facility] Address: [address] [place] [address] Performed By: #### 5 8410-2 ####LOONE[facility] LABORATORYCLIA [id number] [address] [place] MCH (RBC) [Entitic mass] 30.1 pg Normal 26.0-34.0 [facility] Comment on above: Order Comment: Speci men Type: BLOOD SPECIMENOrdering Facility: [facility] Address: [address] [place] [address] Performed By: #### 5 8410-2 ####LOONE[facility] LABORATORYCLIA [id number] [address] [place] MCHC (RBC) [Mass/Vol] 33.7 g/dL Normal 30.5-36.0 [facility] Comment on above: Order Comment: Speci men Type: BLOOD SPECIMENOrdering Facility: [facility] Address: [address] [place] [address] Performed By: #### 5 8410-2 ####LOONE[facility] LABORATORYCLIA [id number] [address] [place] MCV (RBC) [Entitic vol] 89.1 fL Normal 80.0-100.0 [facility] Comment on above: Order Comment: Speci men Type: BLOOD SPECIMENOrdering Facility: [facility] Address: [address] [place] [address] Performed By: #### 5 8410-2 ####LOONE[facility] LABORATORYCLIA [id number] [address] [place] Nucleated RBC (Bld) [#/Vol] 10*3/uL Normal <0.01 [facility] Comment on above: Order Comment: Speci men Type: BLOOD SPECIMENOrdering Facility: [facility] Address: [facility] [place] [address] Performed By: #### 5 8410-2 ####LOONE[facility] LABORATORYCLIA [id number] [address] Platelet mean volume (Bld) [Entitic vol] 10.5 fL Normal 9.0-12.7 [facility] Comment on above: Order Comment: Speci men Type: BLOOD SPECIMENOrdering Facility: [facility] Address: [address] [place] [address] Performed By: #### 5 8410-2 ####LOONEY LABORATORYCLIA [id number] [place] [address] [facility] [place] Platelets (Bld) [#/Vol] 210 10*3/uL Normal 150-400 [facility] Comment on above: Order Comment: Speci men Type: BLOOD SPECIMENOrdering Facility: [facility] Address: [address] [place] [address] Performed By: #### 5 8410-2 ####LOONEY LABORATORYCLIA [id number] [place] [address] [place] RBC (Bld) [#/Vol] 3.86 10*6/uL Low 3.90-5.20 [facility] Comment on above: Order Comment: Speci men Type: BLOOD SPECIMENOrdering Facility: [facility] Address: [address] [place] [address] Performed By: #### 5 8410-2 ####LOONE[facility] LABORATORYCLIA [id number] [address] OF [place] WBC (Bld) [#/Vol] 8.85 10*3/uL Normal 3.70-11.00 [facility] Comment on above: Order Comment: Speci men Type: BLOOD SPECIMENOrdering Facility: [facility] Address: [address] [place] [address] Performed By: #### 5 8410-2 ####LOONEY LABORATORYCLIA [id number] [address] OF [place] CNDSon 03-20-2025 CNDS HNO ID: [id number] Author: PILAR KHAN MD Service: Hospital Medicine Author Type: Physician Type: Discharge Summary Filed: 03/20/2025 18:57 Note Text: DISCHARGE SUMMARY PATIENT NAME: Alexandra Bella ADMISSION DATE: 03/17/2025 DISCHARGE DATE: 03/20/2025 ATTENDING PHYSICIAN: No att. providers found Code Status: Prior PCP: Leonora Davalos APRN.CNP Highest Readmission Risk Score: 15 The 30 day readmissions risk score is derived from an internally validated risk model which evaluates patient level characteristics, utilization history, medication orders and lab results up until the day of discharge. Patients with a score of 39 or above are considered highest risk for readmission. Specific patient level drivers will be listed at the bottom of the summary. TRANSITIONS OF CARE CRITICAL ISSUES: ALVAREZ MEDICATION CHANGES: Ceftriaxone, Flagyl, pain medication Lab monitoring: Patient benefit from repeat CBC, CMP and electrolytes monitored at next outpatient visit and as per ID recommendations while on antibiotics LABS AND PROCEDURES PENDING AT DISCHARGE: Follow-up: Patient will need to follow-up with primary care physician, and colorectal soon after discharge from hospital. REASON FOR HOSPITALIZATION/FINAL DIAGNOSIS: Acute diverticulitis HOSPITAL PROBLEMS: Active Hospital Problems Diagnosis POA Acute diverticulitis Yes Sepsis (HCC) Unknown Hx of diverticulitis of colon Unknown Chest pressure Unknown Obesity, Class III, BMI >= 40 Unknown Type 2 diabetes mellitus with diabetic polyneuropathy, without long-term current use of insulin (HCC) Yes Pure hypercholesterolemia Yes snf current use of anticoagulant Yes Encounter for monitoring flecainide therapy Yes History of DVT (deep vein thrombosis) Yes Coronary artery disease involving [place] coronary artery of [place] heart without angina pectoris Yes Atrial fibrillation (HCC) Yes Chronic diastolic CHF (congestive heart failure) (HCC) Yes MARILIA on CPAP Yes Postoperative hypothyroidism Yes Essential hypertension Yes Rheumatoid arthritis (HCC) Yes Resolved Hospital Problems No resolved problems to display. HOSPITAL COURSE: Alexandra Bella is a 69 year old female with a PMH significant for Breast Cancer s/p partial left mastectomy, Colon Cancer, CHF, Endocarditis, GERD, Hypertension, Hyperlipidemia, Hypothyroidism, IBS, pAF (Eliquis and Flecainide), MARILIA, RA who presents today for evaluation of abdominal pain. Patient was admitted to the hospital for further treatment and evaluation for acute diverticulitis. Patient was started on broad-spectrum IV antibiotics. General surgery and infectious diseases consulted. General surgery recommended outpatient follow-up with colorectal surgery (Dr.Bradley Cesar) for possible sigmoid resection given patient's history of recurrent diverticulitis and rectal cancer. Okay per surgery to restart oral anticoagulation. Recommended continuing medical management of diverticulitis. ID recommended patient should continue with ceftriaxone and Flagyl. Recommended PICC line placement. PICC line was placed. Infectious disease recommended ceftriaxone 2 g every 24 hours and metronidazole 500 mg p.o. every 8 hourly until 03/27/2025. Patient is to have regular lab monitoring with CBC/differential, creatinine/liver function every Monday. Due to labile blood pressure patient's losartan kept at 12.5 mg daily. Patient's hospital course and need for follow-up were explained to patient who is in understanding. Patient will need to follow-up with primary care physician, and colorectal soon after discharge from hospital. OPERATIONS/PROCEDURE DURING THIS HOSPITALIZATION: * No surgery found * CONSULTS DURING HOSPITALIZATION: Treatment Team: Primary Service: , [facility] PATIENT CONDITION AT DISCHARGE: Stable DISCHARGE DISPOSITION: Home with Home Health, Home with Relative Physical exam: Constitutional: In no apparent distress. Vital signs stable Eye: Pupils are equal. Extraocular motions intact ENMT: No visible external trauma. Hearing grossly intact. Neck: No Jugular Vein Distention Cardiovascular: Regular rate and rhythm. S1 and S2 Respiratory: Chest with clear breath sounds bilaterally Gastrointestinal: Soft, left lower quadrant tenderness-improved. No sign of distention. No rebound or guarding, no masses palpated. Bowel sounds present Genitourinary:Bladder soft Musculoskeletal: Good range of motion of all major joints. Extremities without clubbing, without cyanosis, without edema Integumentary: No rash, no bruising, no lesions Neurologic: Oriented to person, place and time. No focal sensory or strength deficits. Speech normal. Follows commands. Psychiatric: Calm, cooperative, appropriate WOUND/SURGICAL SITE CARE: None SUPPLIES OR EQUIPMENT: None DIET: As tolerated ACTIVITY AND EXERCISE: Limited to: As tolerated FOLLOW UP APPOINTMENTS: Fu (more content not included)... [facility] 03-20-2025 [facility] Telephone (HCSIND) -------- ALEXANDRA BELLA ([id number]) 1955 F Date Time Provider Department 03/20/25 JOON CLEMENS During your visit today, we recorded the following information about you: Joon Clemens LPN 03/20/2025 1:52 PM Addendum Called office and spoke to Dr. Davalos. Dr. Davalos will follow for home care services at discharge from hospital. Allergies As of Date: 03/20/2025 Noted Allergy Reaction ADHESIVE TAPE 01/07/2002 Comments: rash AVELOX (MOXIFLOXACIN HCL) 02/16/2009 Comments: Heart race BIAXIN (CLARITHROMYCIN) 02/17/2009 4 - Hives 8 - GI Upset ERYC (ERYTHROMYCIN) 02/16/2009 7 - Swelling METFORMIN 05/25/2022 8 - GI Upset Comments: Throwing up, Diarrhea PENICILLINS 07/07/2003 QUINOLONES 07/12/2004 Comments: Avelox REMICADE (INFLIXIMAB) 10/21/2020 12 - Shortness of Breath SPIRONOLACTONE 05/14/2020 5 - Intolerance Comments: Headaches SUTURES 11/28/2023 14 - Other: See Comments Comments: Suture do not dissolve DEMEROL (MEPERIDINE (PF)) 03/14/2012 14 - Other: See Comments Comments: Arm swelled up locally and turned red. Date Reviewed: 03/19/2025 Reviewed by: Elzbieta Jeffrey, RN - Fully Assessed Reason for Visit: Home Care [4073] Cmt: MD to follow for [facility] Prescriptions as of 03/20/2025 - sucralfate (CARAFATE) 100 mg/mL suspension Take 10 mL by mouth two times a day. Take on empty stomach and avoid eating or drinking for 30 mins after taking. - tirzepatide (MOUNJARO) 7.5 mg/0.5 mL pen injector Inject 7.5 mg subcutaneously one time a week. - levothyroxine (SYNTHROID) 200 mcg tablet Take one tablet Monday through Monday,and half a pill on Saturdays and none on Sundays. - BuyHappy ULTRA TEST test strip Use as directed to check glucose once daily. E11.9 - ONETOUCH ULTRASOFT LANCETS Use as directed to check glucose once daily.E11.9 - metoprolol tartrate, short acting, (LOPRESSOR) 25 mg tablet 1 tablet with food Orally Twice a day for 30 day(s) - sucralfate (CARAFATE) 1 gram tablet Dissolve 1 tablet into 1-2 tbsp water and drink as a slurry twice daily. Do not eat or drink for 30 mins after taking. - Blood-Glucose Meter (ONETOUCH ULTRA2 METER) monitoring kit Use to test blood sugar daily, DX: E11.9, NIDDM - omeprazole (PRILOSEC) 40 mg capsule TAKE 1 CAPSULE BY MOUTH ONCE DAILY - losartan (COZAAR) 25 mg tablet Take 0.5 tablets by mouth once daily. - flecainide (TAMBOCOR) 100 mg tablet Take 1 tablet by mouth every 12 hours. - apixaban (ELIQUIS) 5 mg tab(s) Take 1 tablet by mouth twice daily. - furosemide (LASIX) 20 mg tablet Take 2 tablets by mouth every other day. - potassium chloride (K-TAB) 10 mEq tablet Take 1 tablet by mouth once daily. - traMADol (ULTRAM) 50 mg tablet Take 1 tablet by mouth as needed for pain. - albuterol HFA (PROVENTIL HFA, VENTOLIN HFA) 90 mcg/actuation inhaler as needed for wheezing/shortness of breath. - golimumab (SIMPONI ARIA INTRAVENOUS) Inject intravenously every 8 weeks. 2mg/kg (242mg) - CPAP - celecoxib (CELEBREX) 200 mg capsule Take 1 capsule by mouth once daily. - acetaminophen(TYLENOL ARTHRITIS 650 MG TAB) Take by mouth. Facility-Administered Medications as of 03/20/2025 - losartan 25 mg tab(s) (COZAAR) - prochlorperazine 10 mg injection (COMPAZINE) - cefTRIAXone 2 g in D5W 100 mL Vial-Bag (ROCEPHIN) - NaCl 0.9% iv flush bag - metoprolol tartrate (short acting) 12.5 mg tab(s) (LOPRESSOR) - oxyCODONE IR 5 mg tab(s) (ROXICODONE) - morphine 4 mg injection - furosemide 40 mg tab(s) (LASIX) - flecainide 100 mg tab(s) (TAMBOCOR) - levothyroxine 200 mcg tab(s) (SYNTHROID) - dextrose 40 % 15 g - glucagon 1 mg injection - dextrose 10% iv bolus - metroNIDAZOLE iv piggyback 500 mg in NaCl (iso-osmotic) 100 mL (FLAGYL) - acetaminophen 1,000 mg tab(s) (TYLENOL) - melatonin 6 mg tab(s) - insulin lispro injection (rapid acting) (ADMElog) - insulin lispro injection (rapid acting) (ADMElog) - heparin iv infusion 25,000 units in NaCl 0.45% 250 mL STANDARD NOMOGRAM - heparin RATE CHANGE bolus 1,000-10,000 Units for subtherapeutic PTTAC results - levothyroxine 100 mcg tab(s) (SYNTHROID) Problem List As Of Date 03/20/2025 Noted Resolved History of left breast cancer [Z85.3] 07/12/2004 LUMP OR MASS IN BREAST [N63.0] 09/27/2004 DEEP VENOUS PHLEBITIS-LEG NEC [I80.299] Right knee injury [S89.91XA] 10/03/2012 Right wrist pain [M25.531] 10/03/2012 Tear of right meniscus as current injury [S83.2*10/03/2012 07/08/2019 Left-sided chest wall pain [R07.89] 07/17/2016 11/11/2020 Mass on back [R22.2] 08/14/2018 11/26/2020 MARILIA on CPAP [G47.33] 08/24/2018 Postoperative hypothyroidism [E89.0] 08/24/2018 Essential hypertension [I10] 08/24/2018 Mixed hyperlipidemia [E78.2] 08/24/2018 02/14/2022 Gastroesophageal reflux disease without esophag*08/24/2018 Rheumatoid arthritis (HCC) [M06.9] 08/24/2018 (more content not included)... Normal [facility] CNPN Telephone (HCSIND) -------- ALEXANDRA BELLA ([id number]) 1955 F Date Time Provider Department 03/20/25 JOON CLEMENS During your visit today, we recorded the following information about you: Joon Clemens LPN 03/20/2025 1:54 PM Signed CONFIRMATION CALL a. Date and Time: 1:53 PM 03/20/2025 b. Contact name/relationship: Patient C. Service Address- [address] [place] [id number] Have you been active with any Home Care company in the last 60 days? No. Caregiver: Yes, spouse (CG must be available for SOC/CARMELLA and the following 3-4 visits or until independent) NAKIA Goyal Brittney, LPN 03/20/2025 2:26 PM Addendum Spoke to patients spouse to discuss delivery this evening and start of care tomorrow. Allergies As of Date: 03/20/2025 Noted Allergy Reaction ADHESIVE TAPE 01/07/2002 Comments: rash AVELOX (MOXIFLOXACIN HCL) 02/16/2009 Comments: Heart race BIAXIN (CLARITHROMYCIN) 02/17/2009 4 - Hives 8 - GI Upset ERYC (ERYTHROMYCIN) 02/16/2009 7 - Swelling METFORMIN 05/25/2022 8 - GI Upset Comments: Throwing up, Diarrhea PENICILLINS 07/07/2003 QUINOLONES 07/12/2004 Comments: Avelox REMICADE (INFLIXIMAB) 10/21/2020 12 - Shortness of Breath SPIRONOLACTONE 05/14/2020 5 - Intolerance Comments: Headaches SUTURES 11/28/2023 14 - Other: See Comments Comments: Suture do not dissolve DEMEROL (MEPERIDINE (PF)) 03/14/2012 14 - Other: See Comments Comments: Arm swelled up locally and turned red. Date Reviewed: 03/19/2025 Reviewed by: Elzbieta Jeffrey RN - Fully Assessed Reason for Visit: Home Care [4073] Cmt: Confirmation call Prescriptions as of 03/20/2025 - furosemide (LASIX) 40 mg tablet Take 1 tablet by mouth once daily. - cefTRIAXone (ROCEPHIN) 2 g in D5W 100 mL Vial-Bag Inject 100 mL intravenously every 24 hours for 6 days. - metroNIDAZOLE (FLAGYL) 500 mg tablet Take 1 tablet by mouth three times a day for 7 days. - oxyCODONE IR (ROXICODONE) 5 mg immediate release tablet Take 1 tablet by mouth every 8 hours as needed for pain (ONLY FOR SEVERE PAIN) for up to 5 days. - sucralfate (CARAFATE) 100 mg/mL suspension Take 10 mL by mouth two times a day. Take on empty stomach and avoid eating or drinking for 30 mins after taking. - tirzepatide (MOUNJARO) 7.5 mg/0.5 mL pen injector Inject 7.5 mg subcutaneously one time a week. - levothyroxine (SYNTHROID) 200 mcg tablet Take one tablet Monday through Monday,and half a pill on Saturdays and none on Sundays. - ONETOUCH ULTRA TEST test strip Use as directed to check glucose once daily. E11.9 - ONETOUCH ULTRASOFT LANCETS Use as directed to check glucose once daily.E11.9 - metoprolol tartrate, short acting, (LOPRESSOR) 25 mg tablet 1 tablet with food Orally Twice a day for 30 day(s) - Blood-Glucose Meter (MagiqTOUCH ULTRA2 METER) monitoring kit Use to test blood sugar daily, DX: E11.9, NIDDM - omeprazole (PRILOSEC) 40 mg capsule TAKE 1 CAPSULE BY MOUTH ONCE DAILY - losartan (COZAAR) 25 mg tablet Take 0.5 tablets by mouth once daily. - flecainide (TAMBOCOR) 100 mg tablet Take 1 tablet by mouth every 12 hours. - apixaban (ELIQUIS) 5 mg tab(s) Take 1 tablet by mouth twice daily. - potassium chloride (K-TAB) 10 mEq tablet Take 1 tablet by mouth once daily. - traMADol (ULTRAM) 50 mg tablet Take 1 tablet by mouth as needed for pain. - albuterol HFA (PROVENTIL HFA, VENTOLIN HFA) 90 mcg/actuation inhaler as needed for wheezing/shortness of breath. - golimumab (SIMPONI ARIA INTRAVENOUS) Inject intravenously every 8 weeks. 2mg/kg (242mg) - CPAP - celecoxib (CELEBREX) 200 mg capsule Take 1 capsule by mouth once daily. - acetaminophen(TYLENOL ARTHRITIS 650 MG TAB) Take by mouth. Facility-Administered Medications as of 03/20/2025 - losartan 25 mg tab(s) (COZAAR) - prochlorperazine 10 mg injection (COMPAZINE) - cefTRIAXone 2 g in D5W 100 mL Vial-Bag (ROCEPHIN) - NaCl 0.9% iv flush bag - metoprolol tartrate (short acting) 12.5 mg tab(s) (LOPRESSOR) - oxyCODONE IR 5 mg tab(s) (ROXICODONE) - morphine 4 mg injection - furosemide 40 mg tab(s) (LASIX) - flecainide 100 mg tab(s) (TAMBOCOR) - levothyroxine 200 mcg tab(s) (SYNTHROID) - dextrose 40 % 15 g - glucagon 1 mg injection - dextrose 10% iv bolus - metroNIDAZOLE iv piggyback 500 mg in NaCl (iso-osmotic) 100 mL (FLAGYL) - acetaminophen 1,000 mg tab(s) (TYLENOL) - melatonin 6 mg tab(s) - insulin lispro injection (rapid acting) (ADMElog) - insulin lispro injection (rapid acting) (ADMElog) - heparin iv infusion 25,000 units in NaCl 0.45% 250 mL STANDARD NOMOGRAM - heparin RATE CHANGE bolus 1,000-10,000 Units for subtherapeutic PTTAC results - levothyroxine 100 mcg tab(s) (SYNTHROID) Problem List As Of Date 03/20/2025 Noted Resolved History of left breast cancer [Z85.3] 07/12/2004 LUMP OR MASS IN BREAST [N63.0] 09/27/2004 SHASHANK LLOYD (more content not included)... [facility] ALEXANDRA BELLA ([id number]) 1955 F Date Time Provider Department 03/20/25 JOEY HILL HCSIND During your visit today, we recorded the following information about you: Joey Hill 03/20/2025 2:20 PM Signed Patient was returning phone call transferred to Arlyn Clemens Allergies As of Date: 03/20/2025 Noted Allergy Reaction ADHESIVE TAPE 01/07/2002 Comments: rash AVELOX (MOXIFLOXACIN HCL) 02/16/2009 Comments: Heart race BIAXIN (CLARITHROMYCIN) 02/17/2009 4 - Hives 8 - GI Upset ERYC (ERYTHROMYCIN) 02/16/2009 7 - Swelling METFORMIN 05/25/2022 8 - GI Upset Comments: Throwing up, Diarrhea PENICILLINS 07/07/2003 QUINOLONES 07/12/2004 Comments: Avelox REMICADE (INFLIXIMAB) 10/21/2020 12 - Shortness of Breath SPIRONOLACTONE 05/14/2020 5 - Intolerance Comments: Headaches SUTURES 11/28/2023 14 - Other: See Comments Comments: Suture do not dissolve DEMEROL (MEPERIDINE (PF)) 03/14/2012 14 - Other: See Comments Comments: Arm swelled up locally and turned red. Date Reviewed: 03/19/2025 Reviewed by: Elzbieta Jeffrey RN - Fully Assessed Reason for Visit: Home Care [4073] Prescriptions as of 03/20/2025 - sucralfate (CARAFATE) 100 mg/mL suspension Take 10 mL by mouth two times a day. Take on empty stomach and avoid eating or drinking for 30 mins after taking. - tirzepatide (MOUNJARO) 7.5 mg/0.5 mL pen injector Inject 7.5 mg subcutaneously one time a week. - levothyroxine (SYNTHROID) 200 mcg tablet Take one tablet Monday through Monday,and half a pill on Saturdays and none on Sundays. - ONETOUCH ULTRA TEST test strip Use as directed to check glucose once daily. E11.9 - ONETOUCH ULTRASOFT LANCETS Use as directed to check glucose once daily.E11.9 - metoprolol tartrate, short acting, (LOPRESSOR) 25 mg tablet 1 tablet with food Orally Twice a day for 30 day(s) - sucralfate (CARAFATE) 1 gram tablet Dissolve 1 tablet into 1-2 tbsp water and drink as a slurry twice daily. Do not eat or drink for 30 mins after taking. - Blood-Glucose Meter (MagiqTOUCH ULTRA2 METER) monitoring kit Use to test blood sugar daily, DX: E11.9, NIDDM - omeprazole (PRILOSEC) 40 mg capsule TAKE 1 CAPSULE BY MOUTH ONCE DAILY - losartan (COZAAR) 25 mg tablet Take 0.5 tablets by mouth once daily. - flecainide (TAMBOCOR) 100 mg tablet Take 1 tablet by mouth every 12 hours. - apixaban (ELIQUIS) 5 mg tab(s) Take 1 tablet by mouth twice daily. - furosemide (LASIX) 20 mg tablet Take 2 tablets by mouth every other day. - potassium chloride (K-TAB) 10 mEq tablet Take 1 tablet by mouth once daily. - traMADol (ULTRAM) 50 mg tablet Take 1 tablet by mouth as needed for pain. - albuterol HFA (PROVENTIL HFA, VENTOLIN HFA) 90 mcg/actuation inhaler as needed for wheezing/shortness of breath. - golimumab (SIMPONI ARIA INTRAVENOUS) Inject intravenously every 8 weeks. 2mg/kg (242mg) - CPAP - celecoxib (CELEBREX) 200 mg capsule Take 1 capsule by mouth once daily. - acetaminophen(TYLENOL ARTHRITIS 650 MG TAB) Take by mouth. Facility-Administered Medications as of 03/20/2025 - losartan 25 mg tab(s) (COZAAR) - prochlorperazine 10 mg injection (COMPAZINE) - cefTRIAXone 2 g in D5W 100 mL Vial-Bag (ROCEPHIN) - NaCl 0.9% iv flush bag - metoprolol tartrate (short acting) 12.5 mg tab(s) (LOPRESSOR) - oxyCODONE IR 5 mg tab(s) (ROXICODONE) - morphine 4 mg injection - furosemide 40 mg tab(s) (LASIX) - flecainide 100 mg tab(s) (TAMBOCOR) - levothyroxine 200 mcg tab(s) (SYNTHROID) - dextrose 40 % 15 g - glucagon 1 mg injection - dextrose 10% iv bolus - metroNIDAZOLE iv piggyback 500 mg in NaCl (iso-osmotic) 100 mL (FLAGYL) - acetaminophen 1,000 mg tab(s) (TYLENOL) - melatonin 6 mg tab(s) - insulin lispro injection (rapid acting) (ADMElog) - insulin lispro injection (rapid acting) (ADMElog) - heparin iv infusion 25,000 units in NaCl 0.45% 250 mL STANDARD NOMOGRAM - heparin RATE CHANGE bolus 1,000-10,000 Units for subtherapeutic PTTAC results - levothyroxine 100 mcg tab(s) (SYNTHROID) Problem List As Of Date 03/20/2025 Noted Resolved History of left breast cancer [Z85.3] 07/12/2004 LUMP OR MASS IN BREAST [N63.0] 09/27/2004 DEEP VENOUS PHLEBITIS-LEG NEC [I80.299] Right knee injury [S89.91XA] 10/03/2012 Right wrist pain [M25.531] 10/03/2012 Tear of right meniscus as current injury [S83.2*10/03/2012 07/08/2019 Left-sided chest wall pain [R07.89] 07/17/2016 11/11/2020 Mass on back [R22.2] 08/14/2018 11/26/2020 MARILIA on CPAP [G47.33] 08/24/2018 Postoperative hypothyroidism [E89.0] 08/24/2018 Essential hypertension [I10] 08/24/2018 Mixed hyperlipidemia [E78.2] 08/24/2018 02/14/2022 Gastroesophageal reflux disease without esophag*08/24/2018 Rheumatoid arthritis (HCC) [M06.9] 08/24/2018 Chest pain [R07.9] 07/05/2019 11/11/2020 Dyspnea [R06.00] 07/06/2019 Atrial fibrillat (more content not included)... Normal [facility] CONSULT PROGon 03-20-2025 CONSULT PROG HNO ID: [id number] Author: ELMER MANLEY MD Service: Infectious Disease Author Type: Physician Type: Consult Progress Note Filed: 03/20/2025 11:30 Note Text: INFECTIOUS DISEASE PROGRESS NOTE Patient Name: Alexandra Bella INTERVAL HISTORY: Better. No new complaints. Feels ok. No fevers Patient Active Hospital Problem List: Acute diverticulitis Date Noted: 03/17/2025 MARILIA on CPAP Date Noted: 08/24/2018 Postoperative hypothyroidism Date Noted: 08/24/2018 Essential hypertension Date Noted: 08/24/2018 Rheumatoid arthritis (HCC) Date Noted: 08/24/2018 Atrial fibrillation (HCC) Date Noted: 07/08/2019 Chronic diastolic CHF (congestive heart failure) (HCC) Date Noted: 07/08/2019 Coronary artery disease involving [place] coronary artery of [place] heart without angina pectoris Date Noted: 11/11/2020 History of DVT (deep vein thrombosis) Date Noted: 11/26/2020 Encounter for monitoring flecainide therapy Date Noted: 11/02/2021 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 Date Noted: 11/02/2021 Pure hypercholesterolemia Date Noted: 02/14/2022 Type 2 diabetes mellitus with diabetic polyneuropathy, without long-term current use of insulin (HCC) Date Noted: 11/28/2023 Obesity, Class III, BMI >= 40 Date Noted: 03/18/2025 Sepsis (HCC) Date Noted: 03/19/2025 Hx of diverticulitis of colon Date Noted: 03/19/2025 Chest pressure Date Noted: 03/19/2025 ASSESSMENT: 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 for monitoring flecainide therapy snf current use of anticoagulant Pure hypercholesterolemia Type 2 diabetes mellitus with diabetic polyneuropathy, without long-term current use of insulin Obesity, Class III, BMI >= 40 Sepsis PLAN: OK for PICC this afternoon as the last patient on schedule today Ceftriaxone IV, increase dose to 2g Continue flagyl IV heparin, manage per IM Copat on chart. >30 min YOLANDA. Discussed w IM service Complex antimicrobial therapy counseling and treatment. Rationale for switching antibiotics discussed. Education provided regarding long-term antimicrobial therapy as well as side effects. Discussed sensitivities with microbiology department and antimicrobial stewardship pharmacist that will influence antimicrobial therapy and the success of treatment for this infection. I have reviewed and interpreted all lab test imaging studies and documentations from other healthcare providers I am monitoring antibiotics for side effects and toxicity MEDICATIONS: reviewed. Current Facility-Administered Medications Medication Dose Route Frequency flecainide 100 mg tab(s) (TAMBOCOR) 100 mg ORAL q 12 H levothyroxine 200 mcg tab(s) (SYNTHROID) 200 mcg ORAL Once per day on Monday dextrose 40 % 15 g 15 g ORAL PRN Or glucagon 1 mg injection 1 mg INTRAMUSCULAR PRN Or dextrose 10% iv bolus 12.5 g INTRAVENOUS PRN metroNIDAZOLE iv piggyback 500 mg in NaCl (iso-osmotic) 100 mL (FLAGYL) 500 mg INTRAVENOUS q 8 H acetaminophen 1,000 mg tab(s) (TYLENOL) 1,000 mg ORAL q 8 H PRN melatonin 6 mg tab(s) 6 mg ORAL AT BEDTIME PRN insulin lispro injection (rapid acting) (ADMElog) SUBCUTANEOUS w MEALS insulin lispro injection (rapid acting) (ADMElog) SUBCUTANEOUS AT BEDTIME heparin iv infusion 25,000 units in NaCl 0.45% 250 mL STANDARD NOMOGRAM 0-3,000 Units/hr INTRAVENOUS CONTINUOUS And heparin RATE CHANGE bolus 1,000-10,000 Units for subtherapeutic PTTAC results 1,000-10,000 Units INTRAVENOUS PRN [START ON 03/22/2025] levothyroxine 100 mcg tab(s) (SYNTHROID) 100 mcg ORAL Every Monday oxyCODONE IR 5 mg tab(s) (ROXICODONE) 5 mg ORAL q 3 H PRN morphine 4 mg injection 4 mg INTRAVENOUS q 4 H PRN furosemide 40 mg tab(s) (LASIX) 40 mg ORAL DAILY prochlorperazine 10 mg injection (COMPAZINE) 10 mg INTRAVENOUS q 6 H PRN cefTRIAXone 2 g in D5W 100 mL Vial-Bag (ROCEPHIN) 2 g INTRAVENOUS q 24 H NaCl 0.9% iv flush bag 20 mL INTRAVENOUS PRN metoprolol tartrate (short acting) 12.5 mg tab(s) (LOPRESSOR) 12.5 mg ORAL q 12 H losartan 25 mg tab(s) (COZAAR) 25 mg ORAL DAILY PHYSICAL EXAM: Vital signs: BP 109/87 Pulse 85 Temp 36.7 ?C (98 ?F) (Oral) Resp 14 Ht 160 cm (5' 3") Wt 125.5 kg (276 lb 10.8 oz) LMP 03/11/1998 SpO2 96% BMI 49.01 kg/m? Temp (24hrs), Av.7 ?C (98.1 ?F), Min:36.3 ?C (97.4 ?F), Max:37.3 ?C (99.2 ?F) General: alert, oriented, NAD Lungs: bilaterally clear to auscultation Heart: regular rate and rhythm Abdomen: soft, non tender, non distended, BS+ Extremities: no edema No rashes No joint inflammation Neck supple Lines ok No CVAT Lines, Drains, and Airways Line Duration Central Line Double Lumen 03/19/25 (more content not included)... Normal [facility] Magnesium SerPl-mCncon 03-20 Magnesium [Mass/Vol] 1.7 mg/dL Normal 1.7-2.3 [facility] Comment on above: Order Comment: Harry lunsford Type: BLOOD SPECIMENOrdering Facility: [facility] Address: [address] [place] [address] Performed By: #### 2 4321-2, 23363-8 ####[facility] LABORATORYCLIA [id number] [address] [place] PTT, ANTICOAGULANT THERAPYon 03-20-2025 aPTT Coag (PPP) [Time] s High 23.0-32.4 [facility] Comment on above: Order Comment: Harry lunsford Type: BLOOD SPECIMEN [facility]: [facility] Address: [address] [place] [address] Result Comment: [facility] Performed By: #### 1 9123-9, 34441-5 #### [facility] CLIA [id number] OF [place] aPTT Coag (PPP) [Time] 67.3 s High 23.0-32.4 [facility] Comment on above: Order Comment: Harry lunsford Type: BLOOD SPECIMENOrdering Facility: [facility] Address: [address] [place] [address] Performed By: #### P TTAC ####[facility] LABORATORYCLIA [id number] [address] aPTT Coag (PPP) [Time] 87.3 s High 23.0-32.4 [facility] Comment on above: Order Comment: Harry lunsford Type: BLOOD SPECIMENOrdering Facility: [facility] Address: [address] [place] [address] Performed By: #### P TTAC ####LO[facility] LABORATORYCLIA [id number] [address] CBC panel Auto (Bld)on 03-19 Erythrocyte distribution width (RBC) [Ratio] 13.4 % Normal 11.5-15.0 [facility] Comment on above: Order Comment: Speci men Type: BLOOD SPECIMENOrdering Facility: [facility] Address: [address] [place] [address] Performed By: #### 5 8410-2 ####LO[facility] LABORATORYCLIA [id number] [address] Hematocrit (Bld) [Volume fraction] 34.9 % Low 36.0-46.0 [facility] Comment on above: Order Comment: Speci men Type: BLOOD SPECIMENOrdering Facility: [facility] Address: [address] [place] [address] Performed By: #### 5 8410-2 ####[facility] LABORATORYCLIA [id number] [address] Hemoglobin (Bld) [Mass/Vol] 11.6 g/dL Normal 11.5-15.5 [facility] Comment on above: Order Comment: Speci men Type: BLOOD SPECIMENOrdering Facility: [facility] Address: [address] [place] [address] Performed By: #### 5 8410-2 ####LO[facility] LABORATORYCLIA [id number] [address] MCH (RBC) [Entitic mass] 29.7 pg Normal 26.0-34.0 [facility] Comment on above: Order Comment: Speci men Type: BLOOD SPECIMENOrdering Facility: [facility] Address: [address] [place] [address] Performed By: #### 5 8410-2 ####LO[facility] LABORATORYCLIA [id number] [address] MCHC (RBC) [Mass/Vol] 33.2 g/dL Normal 30.5-36.0 [facility] Comment on above: Order Comment: Speci men Type: BLOOD SPECIMENOrdering Facility: [facility] Address: [address] [place] [address] Performed By: #### 5 8410-2 ####LOONEY LABORATORYCLIA [id number] [place] [address] [place] MCV (RBC) [Entitic vol] 89.3 fL Normal 80.0-100.0 [facility] Comment on above: Order Comment: Speci men Type: BLOOD SPECIMENOrdering Facility: [facility] Address: [address] [place] [address] Performed By: #### 5 8410-2 ####LOONEY LABORATORYCLIA [id number] [place] [address] [place] Nucleated RBC (Bld) [#/Vol] 10*3/uL Normal <0.01 [facility] Comment on above: Order Comment: Speci men Type: BLOOD SPECIMENOrdering Facility: [facility] Address: [address] [place] [address] Performed By: #### 5 8410-2 ####LOONEY LABORATORYCLIA [id number] [place] [address] [place] Platelet mean volume (Bld) [Entitic vol] 10.8 fL Normal 9.0-12.7 [facility] Comment on above: Order Comment: Speci men Type: BLOOD SPECIMENOrdering Facility: [facility] Address: [address] [place] [address] Performed By: #### 5 8410-2 ####LOONEY LABORATORYCLIA [id number] [place] [address] [place] Platelets (Bld) [#/Vol] 219 10*3/uL Normal 150-400 [facility] Comment on above: Order Comment: Speci men Type: BLOOD SPECIMENOrdering Facility: [facility] Address: [address] [place] [address] Performed By: #### 5 8410-2 ####LOONEY LABORATORYCLIA [id number] [place] [address] [place] RBC (Bld) [#/Vol] 3.91 10*6/uL Normal 3.90-5.20 [facility] Comment on above: Order Comment: Speci men Type: BLOOD SPECIMENOrdering Facility: [facility] Address: [address] [place] [address] [place] [address] Performed By: #### 5 8410-2 ####CORUNNA LABORATORYCLIA [id number] [place] [id number] [place] WBC (Bld) [#/Vol] 12.78 10*3/uL High 3.70-11.00 [facility] Comment on above: Order Comment: Speci men Type: BLOOD SPECIMENOrdering Facility: [facility] Address: [address] [place] [address] Performed By: #### 5 8410-2 ####COR[facility]NA LABORATORYCLIA [id number] [place] [address] [place] [facility] CONSULTon 03-19-2025 CONSULT HNO ID: [id number] Author: ELMER MANLEY MD Service: Infectious Disease Author Type: Physician Type: Consults Filed: 03/19/2025 11:26 Note Text: INFECTIOUS DISEASE INITIAL CONSULT SERVICE DATE: 03/19/2025 SERVICE TIME: 11:23 AM REASON FOR CONSULT: Diverticulitis Subjective Patient is seen at the request of Dr Hankins. My final recommendations will be communicated back to the requesting physician by way of copy of this note or shared electronic medical record. HPI: Alexandra Chi Jena who is a 69 year old female with a PMH significant for Breast Cancer s/p partial left mastectomy, Colon Cancer, CHF, Endocarditis, GERD, Hypertension, Hyperlipidemia, Hypothyroidism, IBS, pAF (Eliquis and Flecainide), MARILIA, RA who presents today for evaluation of abdominal pain. Tells me that she started having abdominal pain last Monday that has progressively worsened over the course of the weekend. She has associated nausea with episodes of vomiting. No diarrhea but has been constipated. She has been unable to eat or drink due to the nausea. She has a history of diverticulitis multiple times in the past and was concerned she was having a flare. No recent travel or sick contacts. No fever, chills, headache, visual changes, URI, chest pain, palpitations, shortness of breath, cough, wheezing, diarrhea, bloody stools, urinary symptoms, skin changes, peripheral edema, paresthesias or focal weaknesses. PAST MEDICAL HISTORY Diagnosis Date Acute deep vein thrombosis (DVT) of popliteal vein of left lower extremity (HCC) Four DVT's last one 20 years ago- control- and after fracture Asymptomatic postmenopausal status (age-related) (natural) 03/2000 LMP 03/2000 CHF (congestive heart failure) (HCC) Colon cancer (HCC) 2018 Colorectal cancer (HCC) Endocarditis 2017 Essential hypertension 08/24/2018 Gastroesophageal reflux disease without esophagitis 08/24/2018 GERD (gastroesophageal reflux disease) Irritable bowel syndrome Irritable bowel Syndrome Kidney stones 2004 Left-sided chest wall pain 07/17/2016 Multiple gastric ulcers 2020 MARILIA (obstructive sleep apnea) 08/24/2018 Other hyperlipidemia 08/24/2018 Paroxysmal atrial fibrillation (HCC) Personal history of malignant neoplasm of breast 1996 1996 Breast cancer, clinical stage 1 infiltrating carcinoma left breast Phlebitis and thrombophlebitis of other deep vessels of lower extremities Phlebitis Phlebitis and thrombophlebitis of other deep vessels of lower extremities history of 3 DVTs Left Leg PMH - PAST MEDICAL HISTORY OF 09/1991 pap abnormal cells derived from serve dysplasia PMH - PAST MEDICAL HISTORY OF 11/1991 pap moderate - severe dysplasia Postoperative hypothyroidism 08/24/2018 Pre-diabetes Rheumatoid arthritis (HCC) 08/24/2018 Shingles Thyroid disease PAST SURGICAL HISTORY Procedure Laterality Date CARDIAC CATH 2016 CHOLECYSTECTOMY 2000 COLONOSCOPY 11/08/2011 Dr. Esteban-Random Bx-unremarkable. Sigmoid Bx-focal hyperplastic changes. COLONOSCOPY 03/31/2015 Dr. Esteban-evidence of large scar in the perianal area secondary to resection of SCC 2011. Random Bx's-unremarkable. COLONOSCOPY 04/28/2020 Dr. Esteban-bilious gastric fluid. Bile gastritis. Antrum Bx-unremarkable, HP negative. GEJ Bx-mild inflammation. COLONOSCOPY DIAGNOSTIC 11/01/2022 COLPOSCOPY CERVIX UPPER/ADJACENT VAGINA 12/1991 Colposcopy CONIZATION CERVIX W/WO DANDC RPR ELTRD EXC 01/1992 CONE BX, focal atypia EGD 03/31/2015 Dr. Esteban-HH. D2-unremarkable. Stomach body Bx-mild reactive gastropathy, HP negative. Stomach polyps-fundic gland. EGD 12/29/2017 Dr. Esteban-small HH. Multiple gastric polyps-. Non-bleeding erosive gastropathy. Bilious gastric fluid. EGD 2019 EGD DIAGNOSTIC 11/01/2022 FIBROSCAN 03/31/2020 S3, F4 LIG/TRNSXJ FLP TUBE ABDL/VAG APPR UNI/BI history of Tubal ligation LIVER BIOPSY 02/21/2002 hepatic steatosis, moderate and diffuse. Mild portal fibrosis with chronic non-specific inflammation no evidence of cirrhosis. MASTEC PARTIAL W AXILL NODE REMOV 06/1997 left - had radiation and chemo MRI BREAST BIOPSY 1996 excisional Breast BX, BREAST CANCER, clinical stage1 infiltrating carcinoma left breast PAST SURGICAL HISTORY OF 07/2008 had "fatty tumor" removed from back PAST SURGICAL HISTORY OF 01/02/2012 excision perianal lesion-invasive moderately differentiated squamous cell CA PAST SURGICAL HISTORY OF 08/29/2018 Excision of 5 x 6 cm posterior back mass, PAST SURGICAL HISTORY OF Left scope knee PAST SURGICAL HISTORY OF Partial thyroidectomy THYROIDECTOMY TOTAL/COMPLETE 1972 Social History Tobacco Use Smoking status: Former Current packs/day: 0.00 Average packs/day: 1 pack/day for 15.0 years (15.0 ttl pk-yrs) Types: Cigarettes Start date: 09/11/1974 Quit date: 09/11/1989 Years since quittin.5 Passive exposure: Never Smokeless tobacco: Never Vaping Use Vaping status: Neve (more content not included)... [facility] CONSULT PROGon 03-19-2025 CONSULT PROG HNO ID: [id number] Author: LACY PONCE APRN.SALES AND MARKETING ASSISTANT Service: General Surgery Author Type: Nurse Practitioner Type: Consult Progress Note Filed: 03/19/2025 13:03 Note Text: INPATIENT PROGRESS NOTE SERVICE DATE: 03/19/2025 SERVICE TIME: 929 PRIMARY SERVICE: Medicine Subjective CHIEF COMPLAINT: Diverticulitis INTERVAL HPI: Patient sitting in chair, complains of nausea and dizziness, she reports it has just recently getting insulin was concerned if her blood sugar was dropping, vitals taken BG obtained all WNL, patient uncertain if nausea occurred also due to issues with her roommate. She reports pain 1 out of 10 lower abdomen, tolerating diet, + flatus , most of her discomfort occurs after bowel movements. No fevers or chills Current Facility-Administered Medications Medication Dose Route Frequency flecainide 100 mg tab(s) (TAMBOCOR) 100 mg ORAL q 12 H [Order Held by LIP] losartan 25 mg tab(s) (COZAAR) 25 mg ORAL DAILY levothyroxine 200 mcg tab(s) (SYNTHROID) 200 mcg ORAL Once per day on Monday dextrose 40 % 15 g 15 g ORAL PRN Or glucagon 1 mg injection 1 mg INTRAMUSCULAR PRN Or dextrose 10% iv bolus 12.5 g INTRAVENOUS PRN metroNIDAZOLE iv piggyback 500 mg in NaCl (iso-osmotic) 100 mL (FLAGYL) 500 mg INTRAVENOUS q 8 H acetaminophen 1,000 mg tab(s) (TYLENOL) 1,000 mg ORAL q 8 H PRN melatonin 6 mg tab(s) 6 mg ORAL AT BEDTIME PRN insulin lispro injection (rapid acting) (ADMElog) SUBCUTANEOUS w MEALS insulin lispro injection (rapid acting) (ADMElog) SUBCUTANEOUS AT BEDTIME heparin iv infusion 25,000 units in NaCl 0.45% 250 mL STANDARD NOMOGRAM 0-3,000 Units/hr INTRAVENOUS CONTINUOUS And heparin RATE CHANGE bolus 1,000-10,000 Units for subtherapeutic PTTAC results 1,000-10,000 Units INTRAVENOUS PRN [START ON 03/22/2025] levothyroxine 100 mcg tab(s) (SYNTHROID) 100 mcg ORAL Every Monday oxyCODONE IR 5 mg tab(s) (ROXICODONE) 5 mg ORAL q 3 H PRN morphine 4 mg injection 4 mg INTRAVENOUS q 4 H PRN lidocaine 10 mg/mL (1 %) 10-100 mg injection (XYLOCAINE) 1-10 mL INTRADERMAL DIRECTED PRN furosemide 40 mg tab(s) (LASIX) 40 mg ORAL DAILY metoprolol tartrate (short acting) 12.5 mg tab(s) (LOPRESSOR) 12.5 mg ORAL QID prochlorperazine 10 mg injection (COMPAZINE) 10 mg INTRAVENOUS q 6 H PRN [START ON 03/20/2025] cefTRIAXone 2 g in D5W 100 mL Vial-Bag (ROCEPHIN) 2 g INTRAVENOUS q 24 H NaCl 0.9% iv flush bag 20 mL INTRAVENOUS PRN Objective PHYSICAL EXAM: BP 130/83 Pulse 83 Temp (Src) 97.8 (Axillary) Resp 16 Ht 5' 3" (1.60m) Wt 276 lb 10.8 oz (125.5kg) SpO2 96% LMP 03/11/1998 BMI 49.02 kg/(m2). O2 Therapy: Room Air Physical Exam Performed GENERAL: Alert, no distress, cooperative SKIN: Skin color, texture, turgor normal. No rashes or lesions. ABDOMEN: Abdomen soft, lower abdomen, BS normal, No masses or organomegaly DATA: Diagnostic tests reviewed for today's visit: Most recent labs and imaging results. CT ABD/PEL WO IVCON (03/17/2025 3:57 PM) Latest Ref Rng 03/19/2025 Protein, Total 6.3 - 8.0 g/dL 6.3 Albumin 3.9 - 4.9 g/dL 3.0 (L) Calcium 8.5 - 10.2 mg/dL 8.9 Bilirubin, Total 0.2 - 1.3 mg/dL 0.4 Alkaline Phosphatase 34 - 123 U/L 84 AST 13 - 35 U/L 14 ALT 7 - 38 U/L 17 Glucose 74 - 99 mg/dL 107 (H) BUN 7 - 21 mg/dL 8 Creatinine 0.58 - 0.96 mg/dL 0.82 Sodium 136 - 144 mmol/L 134 (L) Potassium 3.7 - 5.1 mmol/L 3.4 (L) Chloride 98 - 107 mmol/L 100 CO2 22 - 30 mmol/L 24 Anion Gap 8 - 15 mmol/L 10 eGFR >=60 mL/min/1.73m? 78 WBC 3.70 - 11.00 k/uL 12.78 (H) RBC 3.90 - 5.20 m/uL 3.91 Hemoglobin 11.5 - 15.5 g/dL 11.6 Hematocrit 36.0 - 46.0 % 34.9 (L) MCV 80.0 - 100.0 fL 89.3 MCH 26.0 - 34.0 pg 29.7 MCHC 30.5 - 36.0 g/dL 33.2 RDW-CV 11.5 - 15.0 % 13.4 Platelet Count 150 - 400 k/uL 219 MPV 9.0 - 12.7 fL 10.8 Absolute nRBC <0.01 k/uL <0.01 Glucose, Point of Care 74 - 99 mg/dL 163 ! Glucose, Point of Care 168 ! Assessment/Plan Principal Problem: Acute diverticulitis (POA: Yes) Assessment AND Plan: - CT scan reviewed with Inflammatory changes surrounding a 2 cm outpouching in the mid sigmoid colon -WBC 12.78----> 14.82 - Continue antibiotics per ID recommendations-order for PICC placement due to poor venous access and possible long-term antibiotics? - Continue heparin drip - If patient would continue to be nauseated recommend patient to be placed back on clears - pending clinical course will repeat CT scan - Given patient's history of recurrent diverticulitis and rectal cancer - would recommended f/u outpatient colorectal (Dr.Bradley Cesar) for possible sigmoid resection - No surgical intervention at this time will continue to monitor - Discussed with and patient Active Problems: MARILIA on CPAP (POA: Yes) Assessment AND Plan: Per primary Postoperative hypothyroidism (POA: Yes) Assessment AND Plan: Per primary Essential hypertension (POA: Y (more content not included)... Normal [facility] Comprehensive metabolic 2000 panelon 03-19-2025 Albumin [Mass/Vol] 3.0 g/dL Low 3.9-4.9 [facility] Comment on above: Order Comment: Harry lunsford Type: BLOOD SPECIMENOrdering Facility: [facility] Address: [address] [place] [address] Performed By: #### 2 4328, ####LOONE[facility] LABORATORYCLIA [id number] [place] [address] [place] ALP [Catalytic activity/Vol] 84 U/L Normal 34-123 [facility] Comment on above: Order Comment: Harry lunsford Type: BLOOD SPECIMENOrdering Facility: [facility] Address: [address] [place] [address] Performed By: #### 2 43211-16, ####LOONEY LABORATORYCLIA [id number] [place] [address] [place] ALT [Catalytic activity/Vol] 17 U/L Normal 7-38 [facility] Comment on above: Order Comment: Harry lunsford Type: BLOOD SPECIMENOrdering Facility: [facility] Address: [address] [place] [address] Performed By: #### 2 4328, ####LOONEY LABORATORYCLIA [id number] [place] [address] [place] Anion gap [Moles/Vol] 10 mmol/L Normal 8-15 [facility] Comment on above: Order Comment: Speci men Type: BLOOD SPECIMENOrdering Facility: [facility] Address: [facility] [place] [address] Performed By: #### 2 8, ####LOONE[facility] LABORATORYCLIA [id number] [place] [address] [place] AST [Catalytic activity/Vol] 14 U/L Normal 13-35 [facility] Comment on above: Order Comment: Speci men Type: BLOOD SPECIMENOrdering Facility: [facility] Address: [address] [place] [address] Performed By: #### 2 8, ####LOONE[facility] LABORATORYCLIA [id number] [place] [address] [place] Bilirubin [Mass/Vol] 0.4 mg/dL Normal 0.2-1.3 [facility] Comment on above: Order Comment: Speci men Type: BLOOD SPECIMENOrdering Facility: [facility] Address: [address] [place] [address] Performed By: #### 2 4323-04, ####LOONE[facility] LABORATORYCLIA [id number] [place] [address] [place] Calcium [Mass/Vol] 8.9 mg/dL Normal 8.5-10.2 [facility] Comment on above: Order Comment: Speci men Type: BLOOD SPECIMENOrdering Facility: [facility] Address: [address] [place] [address] Performed By: #### 2 8, ####LOONEY LABORATORYCLIA [id number] [place] [address] [place] Chloride [Moles/Vol] 100 mmol/L Normal 98-107 [facility] Comment on above: Order Comment: Speci men Type: BLOOD SPECIMENOrdering Facility: [facility] Address: [address] [place] [address] Performed By: #### 2 4328, ####LOONEY LABORATORYCLIA [id number] [place] [id number] [place] CO2 [Moles/Vol] 24 mmol/L Normal 22-30 [facility] Comment on above: Order Comment: Speci men Type: BLOOD SPECIMENOrdering Facility: [facility] Address: [address] [place] [address] Performed By: #### 2 4323-8, ####LOONEY LABORATORYCLIA [id number] [place] [address] [place] Creatinine [Mass/Vol] 0.82 mg/dL Normal 0.58-0.96 [facility] Comment on above: Order Comment: Speci men Type: BLOOD SPECIMENOrdering Facility: [facility] Address: [address] [place] [address] Performed By: #### 2 4323-8, ####LOONEY LABORATORYCLIA [id number] [place] [address] [place] Creatinine and Glomerular filtration rate.predicted panel (S/P/Bld) 78 mL/min/1.73m??? Normal >=60 [facility] Comment on above: Order Comment: Speci men Type: BLOOD SPECIMENOrdering Facility: [facility] Address: [address] [place] [address] Result Comment: Hortensia mated Glomerular Filtration Rate (eGFR) is calculated using the 2020 CKD-EPI creatinine equation. This equation utilizes serum creatinine, sex, and age as parameters. The creatinine assay has traceable calibration to isotope dilution-mass spectrometry. Refer to KDIGO guidelines for clinical interpretation. In patients with unstable renal function, e.g. those with acute kidney injury, the eGFR may not accurately reflect actual GFR. Performed By: #### 2 4323-8, ####[facility] LABORATORYCLIA [id number] [place] [address] [place] Glucose [Mass/Vol] 107 mg/dL High 74-99 [facility] Comment on above: Order Comment: Harry lunsford Type: BLOOD SPECIMENOrdering Facility: [facility] Address: [address] [place] [address] Result Comment: The [place] Diabetes Association (ADA) provides guidance for cutoff values for fasting glucose and random glucose. The ADA defines fasting as no caloric intake for at least 8 hours. Fasting plasma glucose results between 100 to 125 mg/dL indicate increased risk for diabetes (prediabetes). Fasting plasma glucose results greater than or equal to 126 mg/dL meet the criteria for diagnosis of diabetes. In the absence of unequivocal hyperglycemia, results should be confirmed by repeat testing. In a patient with classic symptoms of hyperglycemia or hyperglycemic crisis, random plasma glucose results greater than or equal to 200 mg/dL meet the criteria for diagnosis of diabetes. Reference: Standards of Medical Care in Diabetes 2016, [place] Diabetes Association. Diabetes Care. 2016.39(Suppl 1). Performed By: #### 2 43211-16, ####[facility] LABORATORYCLIA [id number] [place] [address] [place] Potassium [Moles/Vol] 3.4 mmol/L Low 3.7-5.1 [facility] Comment on above: Order Comment: Speci men Type: BLOOD SPECIMENOrdering Facility: [facility] Address: [address] [place] [address] Performed By: #### 2 4323-04, ####[facility] LABORATORYCLIA [id number] [place] [address] [place] Protein [Mass/Vol] 6.3 g/dL Normal 6.3-8.0 [facility] Comment on above: Order Comment: Speci men Type: BLOOD SPECIMENOrdering Facility: [facility] Address: [address] [place] [address] Performed By: #### 2 4323-04, ####[facility] LABORATORYCLIA [id number] [place] [address] [place] Sodium [Moles/Vol] 134 mmol/L Low 136-144 [facility] Comment on above: Order Comment: Speci men Type: BLOOD SPECIMENOrdering Facility: [facility] Address: [address] [place] [address] Performed By: #### 2 4323-04, ####[facility] LABORATORYCLIA [id number] [place] [address] [place] Urea nitrogen [Mass/Vol] 8 mg/dL Normal 7-21 [facility] Comment on above: Order Comment: Speci men Type: BLOOD SPECIMENOrdering Facility: [facility] Address: [address] [place] [address] Performed By: #### 2 4323-8, 05551-3 ####[facility] LABORATORYCLIA [id number] [place] [address] [place] Magnesium SerPl-mCncon 03-19 Magnesium [Mass/Vol] 1.6 mg/dL Low 1.7-2.3 [facility] Comment on above: Order Comment: Speci men Type: BLOOD SPECIMENOrdering Facility: [facility] Address: [address] [place] [address] Performed By: #### 2 4323-8, 84403-9 ####[facility] LABORATORYCLIA [id number] [place] [address] [place] PTT, ANTICOAGULANT THERAPYon 03-19-2025 aPTT Coag (PPP) [Time] 41.6 s High 23.0-32.4 [facility] Comment on above: Order Comment: Speci men Type: BLOOD SPECIMENOrdering Facility: [facility] Address: [address] [place] [address] Performed By: #### P TTAC ####[facility]ORATORYCLIA [id number] [address] [place] aPTT Coag (PPP) [Time] 55.2 s High 23.0-32.4 [facility] Comment on above: Order Comment: Speci men Type: BLOOD SPECIMEN [facility] Address: [address] [place] [address] Performed By: #### 1 9123-9, 02588-3 #### [facility] CLIA [id number] [address] [place] aPTT Coag (PPP) [Time] 98.5 s High 23.0-32.4 [facility] Comment on above: Order Comment: Speci men Type: BLOOD SPECIMENOrdering Facility: [facility] Address: [address] [place] [address] Performed By: #### P TTAC ####[facility] LABORATORYCLIA [id number] [place] [address] [place] ALLIED HEALTHon 03-18-2025 ALLIED HEALTH HNO ID: [id number] Author: BIBI FRIEDMAN RT(R) Service: Radiology Author Type: Technologist Type: Allied Health Filed: 03/18/2025 17:26 Note Text: Radiology Service Progress Note PATIENT NAME: Alexandra Bella DATE OF SERVICE: March 18, 2025 TIME: 5:26 PM PATIENT IDENTITY VERIFICATION COMPLETED USING TWO (2) IDENTIFIERS: Name and Date of confirmed by patient verbally. FALL SCREENING: Has the patient had 2 falls in the last year or 1 fall with injury or currently using an Ambulatory Assistive Device (Walker, Cane, Wheelchair, Crutches, etc.)? Inpatient: Screened on floor PATIENT GENDER DATA: Assigned female at . status: : No status: NO. PATIENT RELEVANT IMPLANT DATA REVIEWED: Not Applicable PATIENT PRESENTS WITH AN IMPLANTABLE OR ATTACHED THIRD HELPER: No RADIOLOGY DEPARTMENT: General X-ray: Exam(s) Completed: Chest X-Ray PERIPHERAL IV DATA: Not applicable SIGNED BY: Bibi Friedman RT(R) March 18, 2025 5:26 PM Normal [facility] CBC panel Auto (Bld)on 03-18 Erythrocyte distribution width (RBC) [Ratio] 13.6 % Normal 11.5-15.0 [facility] Comment on above: Order Comment: Harry lunsford Type: BLOOD SPECIMENOrdering Facility: [facility] Address: [address] [place] [address] Performed By: #### 5 8410-2 ####[facility]ORATORYCLIA [id number] [address] [place] Hematocrit (Bld) [Volume fraction] 35.8 % Low 36.0-46.0 [facility] Comment on above: Order Comment: Harry lunsford Type: BLOOD SPECIMENOrdering Facility: [facility] Address: [address] [place] [address] Performed By: #### 5 8410-2 ####[facility] LABORATORYCLIA [id number] [place] [address] [place] Hemoglobin (Bld) [Mass/Vol] 11.6 g/dL Normal 11.5-15.5 [facility] Comment on above: Order Comment: Speci men Type: BLOOD SPECIMENOrdering Facility: [facility] Address: [address] [place] [address] Performed By: #### 5 8410-2 ####[facility]ORATORYCLIA [id number] [address] STATES [facility] MCH (RBC) [Entitic mass] 29.3 pg Normal 26.0-34.0 [facility] Comment on above: Order Comment: Speci men Type: BLOOD SPECIMENOrdering Facility: [facility] Address: [address] [place] [address] Performed By: #### 5 8410-2 ####[facility] LABORATORYCLIA [id number] [address] MCHC (RBC) [Mass/Vol] 32.4 g/dL Normal 30.5-36.0 [facility] Comment on above: Order Comment: Speci men Type: BLOOD SPECIMENOrdering Facility: [facility] Address: [address] [place] [address] Performed By: #### 5 8410-2 ####[facility] LABORATORYCLIA [id number] [address] MCV (RBC) [Entitic vol] 90.4 fL Normal 80.0-100.0 [facility] Comment on above: Order Comment: Speci men Type: BLOOD SPECIMENOrdering Facility: [facility] Address: [address] [place] [address] Performed By: #### 5 8410-2 ####[facility] LABORATORYCLIA [id number] [address] Nucleated RBC (Bld) [#/Vol] 10*3/uL Normal <0.01 [facility] Comment on above: Order Comment: Speci men Type: BLOOD SPECIMENOrdering Facility: [facility] Address: [address] [place] [address] Performed By: #### 5 8410-2 ####[facility] LABORATORYCLIA [id number] [address] Platelet mean volume (Bld) [Entitic vol] 10.6 fL Normal 9.0-12.7 [facility] Comment on above: Order Comment: Harry lunsford Type: BLOOD SPECIMENOrdering Facility: [facility] Address: [address] [place] [address] Performed By: #### 5 8410-2 ####[facility] LABORATORYCLIA [id number] [address] [place] Platelets (Bld) [#/Vol] 202 10*3/uL Normal 150-400 [facility] Comment on above: Order Comment: Harry lunsford Type: BLOOD SPECIMENOrdering Facility: [facility] Address: [address] [place] [address] Performed By: #### 5 8410-2 ####[facility] LABORATORYCLIA [id number] [address] RBC (Bld) [#/Vol] 3.96 10*6/uL Normal 3.90-5.20 [facility] Comment on above: Order Comment: Vickii jonn Type: BLOOD SPECIMENOrdering Facility: [facility] Address: [address] [place] [address] Performed By: #### 5 8410-2 ####[facility] LABORATORYCLIA [id number] [address] WBC (Bld) [#/Vol] 14.82 10*3/uL High 3.70-11.00 [facility] Comment on above: Order Comment: Harry lunsford Type: BLOOD SPECIMENOrdering Facility: [facility] Address: [address] [place] [address] Performed By: #### 5 8410-2 ####[facility] LABORATORYCLIA [id number] [place] [id number] [facility] CONSULTon 03-18-2025 CONSULT HNO ID: [id number] Author: ORVILLE MEYER MD Service: General Surgery Author Type: Nurse Practitioner Type: Consults Filed: 03/18/2025 19:54 Note Text: -------- Attestation signed by Orville Meyer MD at 03/18/2025 7:54 PM Attending Note I have personally performed a face to face assessment of the patient and have reviewed the UNIQUE note. I performed a substantive portion of the visit including all aspects of the following. My alvarez findings include: Patient has recurring diverticulitis with CT scan demonstrating what is possibly a submucosal or pericolonic abscess felt to be approximately 1/2 to 2 cm in size on the most recent CT scan. Patient notes 5 episodes of diverticulitis on the past few years. She has a history of cervical cancer and rectal cancer rectal cancer was treated by what sounds like a trans gluteal resection sounds like she has not had radiation therapy for either the cervical or the rectal cancer. Patient's exam is left lower quadrant has not diffuse peritoneal signs my expectation is she will do well and conservative treatment. Patient has relatively poor access blood cultures were obtained. Would recommend ID consultation given her list of antibiotic allergies assuming that she will most likely be sent home on IV antibiotics. She had her rectal surgery performed by Dr. Marlon Cesar in 2008. Given her rectal history and patient's having [address] Cesar would recommend referral to him for consideration of elective resection Other additions or changes: None Signature: Orville Meyer MD Date: 03/18/2025 Time: 7:51 PM -------- General Surgery INITIAL CONSULT NOTE SERVICE DATE: 03/18/2025 SERVICE TIME: 929 REASON FOR CONSULT: Diverticulitis REQUESTING PHYSICIAN: Ivy Santiago PRIMARY CARE PHYSICIAN: Leonora Davalos APRN.[employer] MARKETING ASSISTANT Subjective Ms. Bella is a 69 year old female PMH significant for Breast Cancer s/p partial left mastectomy, Cervical cancer, Colon Cancer, IVC filter, CHF, Endocarditis, LLAMAS stage III, C. Difficile, GERD, Hypertension, Hyperlipidemia, Hypothyroidism, IBS, pAF (Eliquis and Flecainide), MARILIA, RA, recurrent diverticulitis . Who presents today for evaluation of abdominal pain. Patient symptoms have been ongoing for the last 2 weeks but worsened on Monday when she was mowing. Monday developed worsening abdominal pain, nausea, vomiting fever reported as high as 102. She reports feeling constipated she recently has been started on Mounjaro for the last 3 months and has been having alternating bowel movements constipation and diarrhea. She reports multiple of recurrent diverticulitis last occurrence 03/2024. Last colonoscopy 10/2022. No recent travel or sick contacts. No fever, chills, headache, visual changes, URI, chest pain, palpitations, shortness of breath, cough, wheezing, diarrhea, bloody stools, urinary symptoms, skin changes, peripheral edema, paresthesias or focal weaknesses. [place] ED Course: HR 100. WBC 18.52, ANC 12.59 otherwise labs unremarkable. Lactate normal. Blood Cx x2 pending. CT AP with inflammatory changes surrounding a 2 cm outpouching in the mid sigmoid colon suggestive of diverticulitis although difficult to assess for possible abscess. Received IV Rocephin, Flagyl, Morphine and IVF in the ED. The patient was transferred to [facility] under Medicine for further management of acute diverticulitis. FUNCTIONAL STATUS: Independent PAST MEDICAL HISTORY Diagnosis Date Acute deep vein thrombosis (DVT) of popliteal vein of left lower extremity (HCC) Four DVT's last one 20 years ago- control- and after fracture Asymptomatic postmenopausal status (age-related) (natural) 03/2000 LMP 03/2000 CHF (congestive heart failure) (HCC) Colon cancer (HCC) 2018 Colorectal cancer (HCC) Endocarditis 2017 Essential hypertension 08/24/2018 Gastroesophageal reflux disease without esophagitis 08/24/2018 GERD (gastroesophageal reflux disease) Irritable bowel syndrome Irritable bowel Syndrome Kidney stones 2004 Left-sided chest wall pain 07/17/2016 Multiple gastric ulcers 2020 MARILIA (obstructive sleep apnea) 08/24/2018 Other hyperlipidemia 08/24/2018 Paroxysmal atrial fibrillation (HCC) Personal history of malignant neoplasm of breast 1996 1996 Breast cancer, clinical stage 1 infiltrating carcinoma left breast Phlebitis and thrombophlebitis of other deep vessels of lower extremities Phlebitis Phlebitis and thrombophlebitis of other deep vessels of lower extremities history of 3 DVTs Left Leg PMH - PAST MEDICAL HISTORY OF 09/1991 pap abnormal cells derived from serve dysplasia PMH - PAST MEDICAL HISTORY OF 11/1991 pap moderate - severe dysplasia Postoperative hypothyroidism 08/24/2018 Pre-diabetes Rheumatoid arthritis (HCC) (more content not included)... Normal [facility] Comprehensive metabolic 2000 panelon 03-18-2025 Albumin [Mass/Vol] 3.0 g/dL Low 3.9-4.9 [facility] Comment on above: Order Comment: Harry lunsford Type: BLOOD SPECIMEN [facility] Address: [address] [place] [address] Performed By: #### 1 23-9, 33533-5 #### [facility] CLIA [id number] [address] STATES OF [facility] ALP [Catalytic activity/Vol] 93 U/L Normal 34-123 [facility] Comment on above: Order Comment: Harry lunsford Type: BLOOD SPECIMEN [facility] Address: [address] [place] [address] Performed By: #### 1 23-9, 57385-7 #### [facility] CLIA [id number] [address] [place] ALT [Catalytic activity/Vol] 19 U/L Normal 7-38 [facility] Comment on above: Order Comment: Harry lunsford Type: BLOOD SPECIMEN [facility] Address: [address] [place] [address] Performed By: #### 1 23-9, 52568-1 #### [facility] CLIA [id number] [address] [place] [address] [place] Anion gap [Moles/Vol] 11 mmol/L Normal 8-15 [facility] Comment on above: Order Comment: Harry lunsford Type: BLOOD SPECIMEN [facility] Address: [address] [place] [address] Performed By: #### 1 23-9, 22334-3 #### [facility] CLIA [id number] [address] [place] AST [Catalytic activity/Vol] 12 U/L Low 13-35 [facility] Comment on above: Order Comment: Speci men Type: BLOOD SPECIMEN [facility] Address: [address] [place] [address] Performed By: #### 1 239, #### [facility] CLIA [id number] [address] [place] [address] [place] Bilirubin [Mass/Vol] 0.6 mg/dL Normal 0.2-1.3 [facility] Comment on above: Order Comment: Speci men Type: BLOOD SPECIMEN [facility] Address: [address] [place] [address] Performed By: #### 1 9, #### [facility] CLIA [id number] [address] STATES [place] Calcium [Mass/Vol] 9.1 mg/dL Normal 8.5-10.2 [facility] Comment on above: Order Comment: Speci men Type: BLOOD SPECIMEN [facility] Address: [address] [place] [address] Performed By: #### 1 9, #### [facility] CLIA [id number] [address] [place] [address] [place] Chloride [Moles/Vol] 105 mmol/L Normal 98-107 [facility] Comment on above: Order Comment: Speci men Type: BLOOD SPECIMEN [facility] Address: [address] [place] [address] Performed By: #### 1 23-9, #### [facility] CLIA [id number] [address] [place] [address] [place] CO2 [Moles/Vol] 21 mmol/L Low 22-30 [facility] Comment on above: Order Comment: Speci men Type: BLOOD SPECIMEN [facility] Address: [address] [place] [address] Performed By: #### 1 239, #### [facility] CLIA [id number] [address] [place] [address] [place] Creatinine [Mass/Vol] 0.88 mg/dL Normal 0.58-0.96 [facility] Comment on above: Order Comment: Harry lunsford Type: BLOOD SPECIMEN [facility] Address: [address] [place] [address] Performed By: #### 1 9123-9, 61662-4 #### [facility] CLIA [id number] [address] [place] [address] [place] [facility] [place] Creatinine and Glomerular filtration rate.predicted panel (S/P/Bld) 71 mL/min/1.73m??? Normal >=60 [facility] Comment on above: Order Comment: Harry lunsford Type: BLOOD SPECIMEN [facility] Address: [address] [place] [address] Result Comment: Hortensia mated Glomerular Filtration Rate (eGFR) is calculated using the 2020 CKD-EPI creatinine equation. This equation utilizes serum creatinine, sex, and age as parameters. The creatinine assay has traceable calibration to isotope dilution-mass spectrometry. Refer to KDIGO guidelines for clinical interpretation. In patients with unstable renal function, e.g. those with acute kidney injury, the eGFR may not accurately reflect actual GFR. Performed By: #### 1 9123-9, 90751-5 #### [facility] CLIA [id number] [address] [place] [address] [place] Glucose [Mass/Vol] 142 mg/dL High 74-99 [facility] Comment on above: Order Comment: Harry lunsford Type: BLOOD SPECIMEN [facility] Address: [address] [place] [address] Result Comment: The [place] Diabetes Association (ADA) provides guidance for cutoff values for fasting glucose and random glucose. The ADA defines fasting as no caloric intake for at least 8 hours. Fasting plasma glucose results between 100 to 125 mg/dL indicate increased risk for diabetes (prediabetes). Fasting plasma glucose results greater than or equal to 126 mg/dL meet the criteria for diagnosis of diabetes. In the absence of unequivocal hyperglycemia, results should be confirmed by repeat testing. In a patient with classic symptoms of hyperglycemia or hyperglycemic crisis, random plasma glucose results greater than or equal to 200 mg/dL meet the criteria for diagnosis of diabetes. Reference: Standards of Medical Care in Diabetes 2016, [place] [employer]. Diabetes Care. 2016.39(Suppl 1). Performed By: #### 1 23-9, 32136-4 #### [facility] CLIA [id number] [address] [place] Potassium [Moles/Vol] 3.7 mmol/L Normal 3.7-5.1 [facility] Comment on above: Order Comment: Harry lunsford Type: BLOOD SPECIMEN [facility] Address: [address] [place] [address] Performed By: #### 1 23-9, 64468-0 #### [facility] CLIA [id number] [address] [place] Protein [Mass/Vol] 7.0 g/dL Normal 6.3-8.0 [facility] Comment on above: Order Comment: Harry lunsford Type: BLOOD SPECIMEN [facility] Address: [address] [place] [address] Performed By: #### 1 23-9, 76540-1 #### [facility] CLIA [id number] [address] Sodium [Moles/Vol] 137 mmol/L Normal 136-144 [facility] Comment on above: Order Comment: Harry lunsford Type: BLOOD SPECIMEN [facility] Address: [address] [place] [address] Performed By: #### 1 23-9, 14834-3 #### [facility] CLIA [id number] [address] [place] Urea nitrogen [Mass/Vol] 14 mg/dL Normal 7-21 [facility] Comment on above: Order Comment: Harry lunsford Type: BLOOD SPECIMEN [facility] Address: [address] [place] [address] Performed By: #### 1 239, 92719-8 #### [facility] CLIA [id number] [address] [place] ECG COMPLETEon 03-18-2025 ECG COMPLETE Ventricular Rate : 8 3 BPM Atrial Rate : 83 BPM P-R Interval : 190 ms QRS Duration : 144 ms Q-T Interval : 444 ms QTC Calculation(Bazett) : 521 ms Calculated P Lancaster : 58 degrees Calculated R Lancaster : 109 degrees Calculated T Lancaster : 19 degrees NORMAL SINUS RHYTHM RIGHT BUNDLE BRANCH BLOCK ABNORMAL ECG WHEN COMPARED WITH ECG OF 01-Mar-2021 16:24, INVERTED T WAVES HAVE REPLACED NONSPECIFIC T WAVE ABNORMALITY IN INFERIOR LEADS Confirmed by TONJA OVALLE MD ([id number]) on 03/19/2025 4:18:35 PM NAME : ALEXANDRA BELLA PID : [id number] : 1955 Gender : Female Race : ORD : [id number] Procedure Date : Mar 18 2025 16:41:18 Edit Date : Mar 19 2025 16:18:38 Diagnosis: NORMAL SINUS RHYTHM RIGHT BUNDLE BRANCH BLOCK ABNORMAL ECG WHEN COMPARED WITH ECG OF 01-Mar-2021 16:24, INVERTED T WAVES HAVE REPLACED NONSPECIFIC T WAVE ABNORMALITY IN INFERIOR LEADS Confirmed by TONJA OVALLE MD ([id number]) on 03/19/2025 4:18:35 PM Test Reason : Chest Pain Location : 4 : 2S 0222 Overread By : TONJA OVALLE MD Edited By : TONJA OVALLE MD Referred By : MEHRDAD VELASQUEZ Acquired by : [id number], Normal [facility] HIGH SENSITIVITY TROPONIN To 03-18-2025 Troponin T.cardiac High sensitivity method [Mass/Vol] 9 ng/L Normal <12 [facility] Comment on above: Order Comment: Speci men Type: BLOOD SPECIMENOrdering Facility: [facility] Address: [address] [place] [address] Performed By: #### H STNT ####[facility]ORATORYCLIA [id number] [address] STATES [facility] Troponin T.cardiac High sensitivity method [Mass/Vol] 8 ng/L Normal <12 [facility] Comment on above: Order Comment: Speci men Type: BLOOD SPECIMENOrdering Facility: [facility] Address: [address] [place] [address] Performed By: #### H STNT ####[facility] LABORATORYCLIA [id number] [place] [address] [place] Magnesium SerPl-mCncon 03-18 Magnesium [Mass/Vol] 2.3 mg/dL Normal 1.7-2.3 [facility] Comment on above: Order Comment: Harry lunsford Type: BLOOD SPECIMEN [facility]ing Facility[facility] Address: [address] [place] [address] Performed By: #### 1 9123-9, 72049-8 #### [facility] CLIA [id number] [address] [place] [address] [facility] NURSING PROGon 03-18-2025 NURSING PROG HNO ID: [id number] Author: ELZBIETA JEFFREY, RN Service: Nursing Author Type: Registered Nurse Type: Nursing Progress Note Filed: 03/18/2025 18:45 Note Text: Nursing Progress Note [employer] Consultant Assessment Note Patient Name: Alexandra Bella Patient Location: [place] [address]/[id number] Patient Vitals for the past 4 hrs: BP Temp Temp src Pulse Resp SpO2 03/18/25 1631 140/58 -- -- 80 16 98 % 03/18/25 1532 138/82 37.6 ?C (99.6 ?F) Oral 80 17 98 % Status Change Related to: Cardiac Issues (See Nursing Clinical Assessment For Details) The Following People Were Notified: Attending Physician;Hospitalist/Chelo pool Caregiver/Provider: Dr Martinez See Documentation Related to: 12 Lead EKG;Medications;Labs Additional Comments : Patient started to complain of chest tightness - stated it felt like an elephant is sitting on her chest. Pain is not radiating anywhere. VS taken, refer to flowsheet. Patient reported that she feels this way at home when she does not take her lasix. Dr Martinez at bedside. Meds reviewed. See new orders. 1713: Patient reports, she feels better. 1844: Denies chest pain at this time, This note was completed by: Elzbieta Jeffrey RN [facility] NURSING PROG HNO ID: [id number] Author: ALFREDA JACKSON, JONI Service: PICC Team Author Type: Registered Nurse Type: Nursing Progress Note Filed: 03/18/2025 09:59 Note Text: Order for PICC placement. Reached out to care team on floor dt incubating blood cultures. Discussed with Lacy RN CARDIOVASCULAR ICU and floor RN. Will hold off on placement of central line until cultures result. [facility] PTT, ANTICOAGULANT THERAPYon 03-18-2025 aPTT Coag (PPP) [Time] 37.0 s High 23.0-32.4 [facility] Comment on above: Order Comment: Harry lunsford Type: BLOOD SPECIMENOrdering Facility: [facility] Address: [address] [place] [address] Performed By: #### P TTAC ####[facility] [id number] [address] aPTT Coag (PPP) [Time] 93.9 s High 23.0-32.4 [facility] Comment on above: Order Comment: Harry lunsford Type: BLOOD SPECIMEN [facility] Address: [address] [place] [address] Performed By: #### 1 9123-9, 27606-9 #### [facility] CLIA [id number] [address] aPTT Coag (PPP) [Time] 71.2 s High 23.0-32.4 [facility] Comment on above: Order Comment: Vickii jonn Type: BLOOD SPECIMENOrdering Facility: [facility] Address: [address] [place] [address] Performed By: #### P TTAC ####[facility] [id number] [address] OF [place] XR CHEST 1V FRONTAL PORTon 0 03-18-2025 XR CHEST 1V FRONTAL PORT * * *Final Repo rt* * * DATE OF EXAM: Mar 18 2025 5:25PM MDX 5376 - XR CHEST 1V FRONTAL PORT / PROCEDURE REASON: Chest pain * * * * Physician Interpretation * * * * EXAMINATION: CHEST RADIOGRAPH (PORTABLE SINGLE VIEW AP) Exam Date/Time: 03/18/2025 5:25 PM CLINICAL HISTORY: Chest pain MQ: XCPR_5 Comparison: 03/01/2021. RESULT: Lines, tubes, and devices: None. Lungs and pleura: The lungs remain unremarkable with no definite infiltrates. The pleural margins appear normal. Cardiomediastinal silhouette: Stable cardiomediastinal silhouette. Other: The visualized bony thorax appears unremarkable. IMPRESSION: Stable exam with no definite acute disease. Rnp: PSCB Transcribe Date/Time: Mar 18 2025 5:57P Dictated by : BUNNY MA MD This examination was interpreted and the report reviewed and electronically signed by: BUNNY MA MD on Mar 18 2025 5:57PM EST [id number] [facility] HNO ID: [id number] Author: MARTINE HELTON RT(R) Service: Radiology Author Type: Glove Cutter Type: Allied Health Filed: 03/17/2025 15:58 Note Text: Radiology Service Progress Note PATIENT NAME: Alexandra Bella DATE OF SERVICE: March 17, 2025 TIME: 3:57 PM PATIENT IDENTITY VERIFICATION COMPLETED USING TWO (2) IDENTIFIERS: Name and Date of confirmed by patient verbally. FALL SCREENING: Has the patient had 2 falls in the last year or 1 fall with injury or currently using an Ambulatory Assistive Device (Walker, Cane, Wheelchair, Crutches, etc.)? Emergency Room Patient: Screened in ED PATIENT GENDER DATA: Assigned female at . status: : No status: NO. PATIENT RELEVANT IMPLANT DATA REVIEWED: Yes PATIENT PRESENTS WITH AN IMPLANTABLE OR ATTACHED THIRD HELPER: No RADIOLOGY DEPARTMENT: CT; Exam(s) Completed: Abdomen/Pelvis PERIPHERAL IV DATA: Not applicable SIGNED BY: RT Mellissa(R) March 17, 2025 3:57 PM Normal [facility] Bacteria Bld Culton 03-17-20 25 Bacteria identified Cx Nom (Bld) CULTURE, BLOOD: No growth 5 days Normal [facility] Comment on above: Performed By: #### 5 7021-8 #### [facility] CLIA [id number] [address] [place] [address] [place] Bacteria identified Cx Nom (Bld) CULTURE, BLOOD: No growth 5 days Normal [facility] Comment on above: Performed By: #### 5 5454-3 #### [facility] CLIA [id number] [address] [place] [address] [place] CBC W Auto Differential pane l (Bld)on 03-17-2025 Basophils (Bld) [#/Vol] 0.00 10*3/uL Normal <0.11 [facility] Comment on above: Order Comment: Speci men Type: BLOOD SPECIMEN [facility] Address: [address] [place] [address] Performed By: #### 5 5454-3 #### [facility] CLIA [id number] [address] [place] [address] [place] Basophils/100 WBC (Bld) 0.0 % Normal [facility] Comment on above: Order Comment: Speci men Type: BLOOD SPECIMEN [facility] Address: [address] [place] [address] Performed By: #### 5 5454-3 #### [facility] CLIA [id number] [address] [place] [address] [place] Dacrocytes LM Ql (Bld) Few Normal [facility] Comment on above: Order Comment: Speci men Type: BLOOD SPECIMEN [facility] Address: [address] [place] [address] Performed By: #### 5 5454-3 #### [facility] CLIA [id number] [address] [place] [address] [place] Differential cell count method Nom (Bld) Manual Normal [facility] Comment on above: Order Comment: Speci men Type: BLOOD SPECIMEN [facility] Address: [address] [place] [address] Performed By: #### 5 5454-3 #### [facility] CLIA [id number] [address] [place] [address] [place] Eosinophils (Bld) [#/Vol] 0.00 10*3/uL Normal <0.46 [facility] Comment on above: Order Comment: Speci men Type: BLOOD SPECIMEN [facility] Address: [address] [place] [address] Performed By: #### 5 5454-3 #### [facility] CLIA [id number] [address] [place] [address] [place] Eosinophils/100 WBC (Bld) 0.0 % Normal [facility] Comment on above: Order Comment: Speci men Type: BLOOD SPECIMEN [facility] Address: [address] [place] [address] Performed By: #### 5 5454-3 #### [facility] CLIA [id number] [address] [place] [address] [place] Erythrocyte distribution width (RBC) [Ratio] 13.6 % Normal 11.5-15.0 [facility] Comment on above: Order Comment: Speci men Type: BLOOD SPECIMEN [facility] Address: [address] [place] [address] Performed By: #### 5 5454-3 #### [facility] CLIA [id number] [address] [place] [address] [place] Giant platelets LM Ql (Bld) Occasional Normal [facility] Comment on above: Order Comment: Speci men Type: BLOOD SPECIMEN [facility] Address: [address] [place] [address] Performed By: #### 5 5454-3 #### [facility] CLIA [id number] [address] [place] [address] [place] Hematocrit (Bld) [Volume fraction] 40.8 % Normal 36.0-46.0 [facility] Comment on above: Order Comment: Speci men Type: BLOOD SPECIMEN [facility] Address: [address] [place] [address] Performed By: #### 5 5454-3 #### [facility] CLIA [id number] [address] [place] [address] [place] Hemoglobin (Bld) [Mass/Vol] 13.3 g/dL Normal 11.5-15.5 [facility] Comment on above: Order Comment: Speci men Type: BLOOD SPECIMEN [facility] Address: [address] [place] [address] Performed By: #### 5 5454-3 #### [facility] CLIA [id number] [address] [place] [address] [place] Lymphocytes (Bld) [#/Vol] 4.26 10*3/uL High 1.00-4.00 [facility] Comment on above: Order Comment: Speci men Type: BLOOD SPECIMEN [facility] Address: [address] [place] [address] Performed By: #### 5 5454-3 #### [facility] CLIA [id number] [address] [place] [address] [place] Lymphocytes/100 WBC (Bld) 23.0 % Normal [facility] Comment on above: Order Comment: Speci men Type: BLOOD SPECIMEN [facility] Address: [address] [place] [address] Performed By: #### 5 5454-3 #### [facility] CLIA [id number] [address] [place] [address] [place] MCH (RBC) [Entitic mass] 29.6 pg Normal 26.0-34.0 [facility] Comment on above: Order Comment: Speci men Type: BLOOD SPECIMEN [facility] Address: [address] [place] [address] Performed By: #### 5 5454-3 #### [facility] CLIA [id number] [address] [place] [address] [place] MCHC (RBC) [Mass/Vol] 32.6 g/dL Normal 30.5-36.0 [facility] Comment on above: Order Comment: Speci men Type: BLOOD SPECIMEN [facility] Address: [address] [place] [address] Performed By: #### 5 5454-3 #### [facility] CLIA [id number] [address] [place] [address] [place] MCV (RBC) [Entitic vol] 90.9 fL Normal 80.0-100.0 [facility] Comment on above: Order Comment: Speci men Type: BLOOD SPECIMEN [facility] Address: [address] [place] [address] Performed By: #### 5 5454-3 #### [facility] CLIA [id number] [address] [place] [address] [place] Monocytes (Bld) [#/Vol] 1.67 10*3/uL High <0.87 [facility] Comment on above: Order Comment: Speci men Type: BLOOD SPECIMEN [facility] Address: [address] [place] [address] Performed By: #### 5 5454-3 #### [facility] CLIA [id number] [address] [place] [address] [place] Monocytes/100 WBC (Bld) 9.0 % Normal [facility] Comment on above: Order Comment: Speci men Type: BLOOD SPECIMEN [facility] Address: [address] [place] [address] Performed By: #### 5 5454-3 #### [facility] CLIA [id number] [address] [place] [address] [place] Neutrophils (Bld) [#/Vol] 12.59 10*3/uL High 1.45-7.50 [facility] Comment on above: Order Comment: Speci men Type: BLOOD SPECIMEN [facility] Address: [address] [place] [address] Performed By: #### 5 5454-3 #### [facility] CLIA [id number] [address] [place] [address] [place] Neutrophils/100 WBC (Bld) 68.0 % Normal [facility] Comment on above: Order Comment: Speci men Type: BLOOD SPECIMEN [facility] Address: [address] [place] [address] Performed By: #### 5 5454-3 #### [facility] CLIA [id number] [address] [place] [address] [place] Nucleated RBC (Bld) [#/Vol] 10*3/uL Normal <0.01 [facility] Comment on above: Order Comment: Speci men Type: BLOOD SPECIMEN [facility] Address: [address] [place] [address] Performed By: #### 5 5454-3 #### [facility] CLIA [id number] [address] [place] [address] [place] Nucleated RBC/100 WBC (Bld) [Ratio] 0.0 /100 WBC Normal [facility] Comment on above: Order Comment: Speci men Type: BLOOD SPECIMEN [facility] Address: [address] [place] [address] Performed By: #### 5 5454-3 #### [facility] CLIA [id number] [address] [place] [address] [place] Platelet mean volume (Bld) [Entitic vol] 11.1 fL Normal 9.0-12.7 [facility] Comment on above: Order Comment: Speci men Type: BLOOD SPECIMEN [facility] Address: [address] [place] [address] Performed By: #### 5 5454-3 #### [facility] CLIA [id number] [address] [place] [address] [place] Platelets (Bld) [#/Vol] 237 10*3/uL Normal 150-400 [facility] Comment on above: Order Comment: Speci men Type: BLOOD SPECIMEN [facility] Address: [address] [place] [address] Performed By: #### 5 5454-3 #### [facility] CLIA [id number] [address] [place] [address] [place] Platelets Estimate (Bld) [#/Vol] Adequate Normal [facility] Comment on above: Order Comment: Speci men Type: BLOOD SPECIMEN [facility] Address: [address] [place] [address] Performed By: #### 5 5454-3 #### [facility] CLIA [id number] [address] [place] [address] [place] Polychromasia LM Ql (Bld) Slight Normal [facility] Comment on above: Order Comment: Speci men Type: BLOOD SPECIMEN [facility] Address: [address] [place] [address] Performed By: #### 5 5454-3 #### [facility] CLIA [id number] [address] [place] [address] [place] RBC (Bld) [#/Vol] 4.49 10*6/uL Normal 3.90-5.20 [facility] Comment on above: Order Comment: Speci men Type: BLOOD SPECIMEN [facility] Address: [address] [place] [address] Performed By: #### 5 5454-3 #### [facility] CLIA [id number] [address] [place] [address] [place] RED CELL MORPH Reviewed: see result s of individual morphologies Normal [facility] Comment on above: Order Comment: Speci men Type: BLOOD SPECIMEN [facility] Address: [address] [place] [address] Performed By: #### 5 5454-3 #### [facility] CLIA [id number] [address] [place] [address] [place] WBC (Bld) [#/Vol] 18.52 10*3/uL High 3.70-11.00 [facility] Comment on above: Order Comment: Speci men Type: BLOOD SPECIMEN [facility] Address: [address] [place] [address] Performed By: #### 5 5454-3 #### [facility] CLIA [id number] [address] [place] [address] [place] CBC panel Auto (Bld)on 03-17 Erythrocyte distribution width (RBC) [Ratio] 13.6 % Normal 11.5-15.0 [facility] Comment on above: Order Comment: Speci men Type: BLOOD SPECIMENOrdering Facility: [facility] Address: [address] [place] [address] Performed By: #### 5 8410-2 ####[facility] [id number] [place] [address] [place] Hematocrit (Bld) [Volume fraction] 37.1 % Normal 36.0-46.0 [facility] Comment on above: Order Comment: Speci men Type: BLOOD SPECIMENOrdering Facility: [facility] Address: [address] [place] [address] Performed By: #### 5 8410-2 ####[facility] [id number] [place] [address] [place] Hemoglobin (Bld) [Mass/Vol] 12.1 g/dL Normal 11.5-15.5 [facility] Comment on above: Order Comment: Speci men Type: BLOOD SPECIMENOrdering Facility: [facility] Address: [address] [place] [address] Performed By: #### 5 8410-2 ####[facility]CL[facility] [id number] [address] MCH (RBC) [Entitic mass] 29.6 pg Normal 26.0-34.0 [facility] Comment on above: Order Comment: Speci men Type: BLOOD SPECIMENOrdering Facility: [facility] Address: [address] [place] [address] Performed By: #### 5 8410-2 ####[facility]CL[facility] [id number] [address] MCHC (RBC) [Mass/Vol] 32.6 g/dL Normal 30.5-36.0 [facility] Comment on above: Order Comment: Speci men Type: BLOOD SPECIMENOrdering Facility: [facility] Address: [address] [place] [address] Performed By: #### 5 8410-2 ####[facility]CL[facility] [id number] [address] MCV (RBC) [Entitic vol] 90.7 fL Normal 80.0-100.0 [facility] Comment on above: Order Comment: Speci men Type: BLOOD SPECIMENOrdering Facility: [facility] Address: [address] [place] [address] Performed By: #### 5 8410-2 ####[facility] [id number] [address] Nucleated RBC (Bld) [#/Vol] 10*3/uL Normal <0.01 [facility] Comment on above: Order Comment: Speci men Type: BLOOD SPECIMENOrdering Facility: [facility] Address: [address] [place] [address] Performed By: #### 5 8410-2 ####[facility] [id number] [address] Platelet mean volume (Bld) [Entitic vol] 10.8 fL Normal 9.0-12.7 [facility] Comment on above: Order Comment: Speci men Type: BLOOD SPECIMENOrdering Facility: [facility] Address: [address] [place], [place] [address] [id number] Performed By: #### 5 8410-2 ####[facility] [id number] [place] [address] [place] [facility] [place] Platelets (Bld) [#/Vol] 226 10*3/uL Normal 150-400 [facility] Comment on above: Order Comment: Speci men Type: BLOOD SPECIMENOrdering Facility: [facility] Address: [address] [place] [address] Performed By: #### 5 8410-2 ####[facility]CLIA [id number] [place] [address] [place] RBC (Bld) [#/Vol] 4.09 10*6/uL Normal 3.90-5.20 [facility] Comment on above: Order Comment: Speci men Type: BLOOD SPECIMENOrdering Facility: [facility] Address: [address] [place] [address] Performed By: #### 5 8410-2 ####[facility]CL[facility] [id number] [address] [place] WBC (Bld) [#/Vol] 16.12 10*3/uL High 3.70-11.00 [facility] Comment on above: Order Comment: Speci men Type: BLOOD SPECIMENOrdering Facility: [facility] Address: [address] [place] [address] Performed By: #### 5 8410-2 ####[facility]CLIA [id number] [place] [id number] [facility] [place] CT ABD/PEL WO IVCONon 2024 CT ABD/PEL WO IVCON * * *Final Report* * * DATE OF EXAM: Mar 17 2025 3:57PM [facility] 0531 - CT ABD/PEL WO IVCON / PROCEDURE REASON: LLQ abdominal pain * * * * Physician Interpretation * * * * EXAMINATION: CT ABDOMEN AND PELVIS WITHOUT IV CONTRAST CLINICAL HISTORY: Left lower quadrant abdominal pain TECHNIQUE: Non-IV contrast imaging of the abdomen and pelvis was performed using standard technique, scanning from just above the dome of the diaphragm to the symphysis pubis. Unenhanced imaging is limited for the evaluation of some intra-abdominal and pelvic pathology. MQ: CTAPWO_3 Contrast: IV: None : ml of CT Radiation dose: Integrated Dose-length product (DLP) for this visit = 1151.06 mGy*cm. CT Dose Reduction Employed: Automated exposure control(AEC) and iterative recon COMPARISON: CT abdomen and pelvis 03/19/2024 RESULT: Abdomen / Pelvis: Liver: Stable subcentimeter low-attenuation lesion along the dome of the right lobe of the liver (2:19). Biliary: Gallbladder is absent. Spleen: No splenomegaly. Pancreas: Unremarkable. Adrenals: No mass. Kidneys: No stone or hydronephrosis. GI Tract: No bowel dilation. Normal appendix. Multiple diverticula scattered throughout the sigmoid colon. Inflammatory changes surrounding a 2 cm outpouching in the mid sigmoid colon (2:99) suggestive of diverticulitis. It is difficult to assess for presence of intramural abscess given lack of IV contrast. There is trace free fluid in the left pelvis. Lymph Nodes: No lymphadenopathy. Mesentery/peritoneum: No ascites. Retroperitoneum: No mass. Vasculature: No abdominal aortic or iliac artery aneurysm. IVC filter present. Pelvis: Trace free fluid and inflammatory changes in the left pelvis. Uterus is unremarkable. Bones/Soft Tissues: No acute abnormality. Lower thorax: Is of subpleural reticulation at both lung bases right greater than left. These are nonspecific but could represent interstitial lung disease. Localizer images: No additional findings. IMPRESSION: Inflammatory changes surrounding a 2 cm outpouching in the mid sigmoid colon (2:99) suggestive of diverticulitis. It is difficult to assess for presence of intramural abscess due to lack of IV contrast. Trace free fluid and fat stranding in the left pelvis Rnp: PSCB Transcribe Date/Time: Mar 17 2025 3:58P Dictated by : RINKU JOSHI MD This examination was interpreted and the report reviewed and electronically signed by: RINKU JOSHI MD on Mar 17 2025 4:08PM EST [id number] Normal [facility] Comprehensive metabolic 2000 panelon 03-17-2025 Albumin [Mass/Vol] 3.8 g/dL Low 3.9-4.9 [facility] Comment on above: Order Comment: Speci men Type: BLOOD SPECIMEN Order[facility] Address: [address] [place] [address] Performed By: #### 5 7021-8 #### [facility] CLIA [id number] [address] [place] [address] [place] [facility] ALP [Catalytic activity/Vol] 97 U/L Normal 34-123 [facility] Comment on above: Order Comment: Speci men Type: BLOOD SPECIMEN Ordering Facility: [facility] Address: [address] [place] [address] Performed By: #### 5 7021-8 #### [facility] CLIA [id number] [address] [place] [address] [facility] ALT With P-5'-P [Catalytic activity/Vol] 28 U/L Normal 7-38 [facility] Comment on above: Order Comment: Speci men Type: BLOOD SPECIMEN [facility] Address: [address] [place] [address] Performed By: #### 5 7021-8 #### [facility] CLIA [id number] [address] STATES OF [facility] Anion gap [Moles/Vol] 14 mmol/L Normal 8-15 [facility] Comment on above: Order Comment: Speci men Type: BLOOD SPECIMEN [facility] Address: [address] [place] [address] Performed By: #### 5 7021-8 #### [facility] CLIA [id number] [address] [place] [address] [facility] [place] AST With P-5'-P [Catalytic activity/Vol] Normal [facility] Comment on above: Order Comment: Speci men Type: BLOOD SPECIMEN Order[facility]: [facility] Address: [address] [place] [address] Result Comment: Unab le to assay due to interference from hemolysis. Suggest reorder as clinically indicated. Performed By: #### 5 7021-8 #### [facility] CLIA [id number] [address] [place] [address] [place] Bilirubin [Mass/Vol] 1.1 mg/dL Normal 0.2-1.3 [facility] Comment on above: Order Comment: Speci men Type: BLOOD SPECIMEN Order[facility] Address: [address] [place] [address] Performed By: #### 5 7021-8 #### [facility] CLIA [id number] [address] [place] [address] [place] Calcium [Mass/Vol] 10.1 mg/dL Normal 8.5-10.2 [facility] Comment on above: Order Comment: Speci men Type: BLOOD SPECIMEN Ordering Facility: [facility] Address: [address] [place] [address] Performed By: #### 5 7021-8 #### [facility] CLIA [id number] [address] [place] [address] [place] Chloride [Moles/Vol] 98 mmol/L Normal 98-107 [facility] Comment on above: Order Comment: Speci men Type: BLOOD SPECIMEN Ordering Facility: [facility] Address: [address] [place] [address] Performed By: #### 5 7021-8 #### [facility] CLIA [id number] [address] [place] [address] [place] CO2 [Moles/Vol] 24 mmol/L Normal 22-30 [facility] Comment on above: Order Comment: Speci men Type: BLOOD SPECIMEN Ordering Facility: [facility] Address: [address] [place] [address] Performed By: #### 5 7021-8 #### [facility] CLIA [id number] [address] [place] [address] [place] Creatinine [Mass/Vol] 0.91 mg/dL Normal 0.58-0.96 [facility] Comment on above: Order Comment: Speci men Type: BLOOD SPECIMEN Ordering Facility: [facility] Address: [address] [place] [address] Performed By: #### 5 7021-8 #### [email or web address] CLIA [id number] [address] [place] [address] [place] Creatinine and Glomerular filtration rate.predicted panel (S/P/Bld) 68 mL/min/1.73m??? Normal >=60 [facility] Comment on above: Order Comment: Harry lunsford Type: BLOOD SPECIMEN Ordering Facility: [facility] Address: [address] [place] [address] Result Comment: Hortensia mated Glomerular Filtration Rate (eGFR) is calculated using the 2020 CKD-EPI creatinine equation. This equation utilizes serum creatinine, sex, and age as parameters. The creatinine assay has traceable calibration to isotope dilution-mass spectrometry. Refer to KDIGO guidelines for clinical interpretation. In patients with unstable renal function, e.g. those with acute kidney injury, the eGFR may not accurately reflect actual GFR. Performed By: #### 5 7021-8 #### [facility] CLIA [id number] [address] [place] [address] [place] Glucose [Mass/Vol] 139 mg/dL High 74-99 [facility] Comment on above: Order Comment: Harry lunsford Type: BLOOD SPECIMEN Ordering Facility: [facility] Address: [address] [place] [address] Result Comment: The [place] [employer] (ADA) provides guidance for cutoff values for fasting glucose and random glucose. The ADA defines fasting as no caloric intake for at least 8 hours. Fasting plasma glucose results between 100 to 125 mg/dL indicate increased risk for diabetes (prediabetes). Fasting plasma glucose results greater than or equal to 126 mg/dL meet the criteria for diagnosis of diabetes. In the absence of unequivocal hyperglycemia, results should be confirmed by repeat testing. In a patient with classic symptoms of hyperglycemia or hyperglycemic crisis, random plasma glucose results greater than or equal to 200 mg/dL meet the criteria for diagnosis of diabetes. Reference: Standards of Medical Care in Diabetes 2016, [place] [employer] Association. Diabetes Care. 2016.39(Suppl 1). Performed By: #### 5 7021-8 #### [email or web address] CLIA [id number] [address] [place] [address] [place] Potassium [Moles/Vol] 4.1 mmol/L Normal 3.7-5.1 [facility] Comment on above: Order Comment: Speci men Type: BLOOD SPECIMEN Ordering Facility: [facility] Address: [address] [place] [address] Performed By: #### 5 7021-8 #### [facility] CLIA [id number] [address] [place] [address] [place] Protein [Mass/Vol] 7.8 g/dL Normal 6.3-8.0 [facility] Comment on above: Order Comment: Speci men Type: BLOOD SPECIMEN Ordering Facility: [facility] Address: [address] [place] [address] Performed By: #### 5 7021-8 #### [facility] CLIA [id number] [address] [place] [address] [place] Sodium [Moles/Vol] 136 mmol/L Normal 136-144 [facility] Comment on above: Order Comment: Speci men Type: BLOOD SPECIMEN Ordering Facility: [facility] Address: [address] [place] [address] Performed By: #### 5 7021-8 #### [facility] CLIA [id number] [address] [place] [address] [place] Urea nitrogen [Mass/Vol] 12 mg/dL Normal 7-21 [facility] Comment on above: Order Comment: Speci men Type: BLOOD SPECIMEN Ordering Facility: [facility] Address: [address] [place] [address] Performed By: #### 5 7021-8 #### [facility] CLIA [id number] [address] [place] [address] [place] ED NOTEon 03-17-2025 ED NOTE HNO ID: [id number] Author: MARIELA FAY RN Service: Emergency Medicine Author Type: Registered Nurse Type: ED Notes Filed: 03/17/2025 20:21 Note Text: [facility] present at bedside. Report given to transfer team. Normal [facility] ED NOTE HNO ID: [id number] Author: MARIELA FAY RN Service: ? Author Type: Registered Nurse Type: ED Notes Filed: 03/17/2025 19:27 Note Text: ETA 2100/2130 [facility] ED NOTE HNO ID: [id number] Author: MARIELA FAY RN Service: Emergency Medicine Author Type: Registered Nurse Type: ED Notes Filed: 03/17/2025 19:25 Note Text: -------- Summary: Bed Assignment/Transport ETA -------- Received Bed Assignment: Accepting Hospital: [facility] Bed Assignment: 2 South, 222-2 Nurse Report: [phone] [facility] ETA 90-120 minutes [facility] ED NOTE HNO ID: [id number] Author: MARIELA FAY RN Service: Emergency Medicine Author Type: Registered Nurse Type: ED Notes Filed: 03/17/2025 19:16 Note Text: Change of shift report received from Lokesh Osorio RN. I assumed patient care at this time. [facility] ED NOTE HNO ID: [id number] Author: LOKESH TORRES RN Service: ? Author Type: Registered Nurse Type: ED Notes Filed: 03/17/2025 14:52 Note Text: Pt reports lower abd pain that started a few days ago. Pt has been constipated and has taken a stool softener and has a small bm yesterday. Pt has loss of appetite n/v. Pt has some pain with urination as well, but no burning with urination. Pt has history of diverticulitis and feels that is what is going on now. Normal [facility] ED PROV NOTEon 03-17-2025 ED PROV NOTE HNO ID: [id number] Author: MEHRDAD VELASQUEZ MD Service: Emergency Medicine Author Type: Physician Type: ED Provider Notes Filed: 03/17/2025 19:29 Note Text: ED Provider Note Patient Name: Alexandra Bella : 1955 SERVICE DATE: 03/17/25 History Patient presents with: Abdominal Pain Alexandra Bella is a 69 year old female with history of diverticulitis who presents with lower abdominal pain. Patient has taken nothing with no relief of symptoms. - Symptom began 1 weeks prior to arrival. - Severity: moderate - Timing: constant - Quality: dull - Pain is exacerbated by movement and palpation. Pain radiates to nowhere. - Pain is not exacerbated by movement. - Symptoms are associated with chills. - Symptoms are not associated with nausea and vomiting. - Improved by nothing. - Not improved by rest Previous history of diverticulitis that was treated outpatient and medically. Pain started about a week ago but much worse over the past 3 days intermittent subjective fevers and chills. Decreased bowel movements. Previous cancer history with mastectomy left arm cannot be used for IVs. In the past she has had trouble with CT dye infiltration in the right arm. She says that she has bad veins from all her chemotherapy and does not want to do IV contrast with her CT scan.. PAST MEDICAL HISTORY Diagnosis Date Acute deep vein thrombosis (DVT) of popliteal vein of left lower extremity (HCC) Four DVT's last one 20 years ago- control- and after fracture Asymptomatic postmenopausal status (age-related) (natural) 03/2000 LMP 03/2000 CHF (congestive heart failure) (HCC) Colon cancer (HCC) 2018 Colorectal cancer (HCC) Endocarditis 2017 Essential hypertension 08/24/2018 Gastroesophageal reflux disease without esophagitis 08/24/2018 GERD (gastroesophageal reflux disease) Irritable bowel syndrome Irritable bowel Syndrome Kidney stones 2004 Left-sided chest wall pain 07/17/2016 Multiple gastric ulcers 2020 MARILIA (obstructive sleep apnea) 08/24/2018 Other hyperlipidemia 08/24/2018 Paroxysmal atrial fibrillation (HCC) Personal history of malignant neoplasm of breast 1996 1996 Breast cancer, clinical stage 1 infiltrating carcinoma left breast Phlebitis and thrombophlebitis of other deep vessels of lower extremities Phlebitis Phlebitis and thrombophlebitis of other deep vessels of lower extremities history of 3 DVTs Left Leg PMH - PAST MEDICAL HISTORY OF 09/1991 pap abnormal cells derived from serve dysplasia PMH - PAST MEDICAL HISTORY OF 11/1991 pap moderate - severe dysplasia Postoperative hypothyroidism 08/24/2018 Pre-diabetes Rheumatoid arthritis (HCC) 08/24/2018 Shingles Thyroid disease PAST SURGICAL HISTORY Procedure Laterality Date CARDIAC CATH 2016 CHOLECYSTECTOMY 2000 COLONOSCOPY 11/08/2011 Dr. Esteban-Random Bx-unremarkable. Sigmoid Bx-focal hyperplastic changes. COLONOSCOPY 03/31/2015 Dr. Esteban-evidence of large scar in the perianal area secondary to resection of SCC 2011. Random Bx's-unremarkable. COLONOSCOPY 04/28/2020 Dr. Esteban-bilious gastric fluid. Bile gastritis. Antrum Bx-unremarkable, HP negative. GEJ Bx-mild inflammation. COLONOSCOPY DIAGNOSTIC 11/01/2022 COLPOSCOPY CERVIX UPPER/ADJACENT VAGINA 12/1991 Colposcopy CONIZATION CERVIX W/WO DANDC RPR ELTRD EXC 01/1992 CONE BX, focal atypia EGD 03/31/2015 Dr. Esteban-HH. D2-unremarkable. Stomach body Bx-mild reactive gastropathy, HP negative. Stomach polyps-fundic gland. EGD 12/29/2017 Dr. Esteban-small HH. Multiple gastric polyps-. Non-bleeding erosive gastropathy. Bilious gastric fluid. EGD 2019 EGD DIAGNOSTIC 11/01/2022 FIBROSCAN 03/31/2020 S3, F4 LIG/TRNSXJ FLP TUBE ABDL/VAG APPR UNI/BI history of Tubal ligation LIVER BIOPSY 02/21/2002 hepatic steatosis, moderate and diffuse. Mild portal fibrosis with chronic non-specific inflammation no evidence of cirrhosis. MASTEC PARTIAL W AXILL NODE REMOV 06/1997 left - had radiation and chemo MRI BREAST BIOPSY 1996 excisional Breast BX, BREAST CANCER, clinical stage1 infiltrating carcinoma left breast PAST SURGICAL HISTORY OF 07/2008 had "fatty tumor" removed from back PAST SURGICAL HISTORY OF 01/02/2012 excision perianal lesion-invasive moderately differentiated squamous cell CA PAST SURGICAL HISTORY OF 08/29/2018 Excision of 5 x 6 cm posterior back mass, PAST SURGICAL HISTORY OF Left scope knee PAST SURGICAL HISTORY OF Partial thyroidectomy THYROIDECTOMY TOTAL/COMPLETE 1973 FAMILY HISTORY Problem Relation Age of Onset Breast Cancer Maternal Grandmother Breast Cancer Paternal Grandmother Cancer Paternal Grandfather bone cancer Prostate Cancer Paternal Grandfather Coronary Artery Disease Father Kidney Disease Father Diabetes Other mat grt grdf Liver Cancer Brother Hypertension Mother No Known Problems Daughter Diabetes Son Heart Brother Heart Brother (more content not included)... Normal [facility] HISTORY PHYSICALon HISTORY PHYSICAL HNO ID: [id number] Author: IVY SANTIAGO PA-C Service: Hospital Medicine Author Type: Physician Floor Renovator Type: H&P Filed: 03/17/2025 21:31 Note Text: -------- Attestation signed by Mona Alston MD at 03/18/2025 6:07 AM Attending Note I have performed an assessment of the patient and have reviewed the UNIQUE note and agree as written. Other additions or changes: As edited Signature: Mona Alston Date: 03/18/2025 Time: 6:06 AM -------- DEPARTMENT OF HOSPITAL MEDICINE HISTORY AND PHYSICAL EXAM SERVICE DATE: 03/17/2025 SERVICE TIME: 8:41 PM Primary Care Physician: Leonora Davalos APRN.[facility] NIGHT AND WEEKEND COVERAGE: [place] COVERAGE: Days: [phone], please page attending physician. Nights: [phone], please page [facility] Night coverage pager [phone]. Subjective CHIEF COMPLAINT: Abdominal pain HPI: This is a 69 year old female with a PMH significant for Breast Cancer s/p partial left mastectomy, Colon Cancer, CHF, Endocarditis, GERD, Hypertension, Hyperlipidemia, Hypothyroidism, IBS, pAF (Eliquis and Flecainide), MARILIA, RA who presents today for evaluation of abdominal pain. Tells me that she started having abdominal pain last Monday that has progressively worsened over the course of the weekend. She has associated nausea with episodes of vomiting. No diarrhea but has been constipated. She has been unable to eat or drink due to the nausea. She has a history of diverticulitis multiple times in the past and was concerned she was having a flare. No recent travel or sick contacts. No fever, chills, headache, visual changes, URI, chest pain, palpitations, shortness of breath, cough, wheezing, diarrhea, bloody stools, urinary symptoms, skin changes, peripheral edema, paresthesias or focal weaknesses. [place] ED Course: HR 100. WBC 18.52, ANC 12.59 otherwise labs unremarkable. Lactate normal. Blood Cx x2 pending. CT AP with inflammatory changes surrounding a 2 cm outpouching in the mid sigmoid colon suggestive of diverticulitis although difficult to assess for possible abscess. Received IV Rocephin, Flagyl, Morphine and IVF in the ED. The patient was transferred to [facility] under Medicine for further management of acute diverticulitis. PAST MEDICAL HISTORY Diagnosis Date Acute deep vein thrombosis (DVT) of popliteal vein of left lower extremity (HCC) Four DVT's last one 20 years ago- control- and after fracture Asymptomatic postmenopausal status (age-related) (natural) 03/2000 LMP 03/2000 CHF (congestive heart failure) (HCC) Colon cancer (HCC) 2018 Colorectal cancer (HCC) Endocarditis 2017 Essential hypertension 08/24/2018 Gastroesophageal reflux disease without esophagitis 08/24/2018 GERD (gastroesophageal reflux disease) Irritable bowel syndrome Irritable bowel Syndrome Kidney stones 2004 Left-sided chest wall pain 07/17/2016 Multiple gastric ulcers 2020 MARILIA (obstructive sleep apnea) 08/24/2018 Other hyperlipidemia 08/24/2018 Paroxysmal atrial fibrillation (HCC) Personal history of malignant neoplasm of breast 1996 1996 Breast cancer, clinical stage 1 infiltrating carcinoma left breast Phlebitis and thrombophlebitis of other deep vessels of lower extremities Phlebitis Phlebitis and thrombophlebitis of other deep vessels of lower extremities history of 3 DVTs Left Leg PMH - PAST MEDICAL HISTORY OF 09/1991 pap abnormal cells derived from serve dysplasia PMH - PAST MEDICAL HISTORY OF 11/1991 pap moderate - severe dysplasia Postoperative hypothyroidism 08/24/2018 Pre-diabetes Rheumatoid arthritis (HCC) 08/24/2018 Shingles Thyroid disease PAST SURGICAL HISTORY Procedure Laterality Date CARDIAC CATH 2017 CHOLECYSTECTOMY 2000 COLONOSCOPY 11/08/2011 Dr. Esteban-Random Bx-unremarkable. Sigmoid Bx-focal hyperplastic changes. COLONOSCOPY 03/31/2015 Dr. Esteban-evidence of large scar in the perianal area secondary to resection of SCC 2011. Random Bx's-unremarkable. COLONOSCOPY 04/28/2020 Dr. Esteban-bilious gastric fluid. Bile gastritis. Antrum Bx-unremarkable, HP negative. GEJ Bx-mild inflammation. COLONOSCOPY DIAGNOSTIC 11/01/2022 COLPOSCOPY CERVIX UPPER/ADJACENT VAGINA 12/1991 Colposcopy CONIZATION CERVIX W/WO DANDC RPR ELTRD EXC 01/1992 CONE BX, focal atypia EGD 03/31/2015 Dr. Esteban-HH. D2-unremarkable. Stomach body Bx-mild reactive gastropathy, HP negative. Stomach polyps-fundic gland. EGD 12/29/2017 Dr. Esteban-small HH. Multiple gastric polyps-. Non-bleeding erosive gastropathy. Bilious gastric fluid. EGD 2019 EGD DIAGNOSTIC 11/01/2022 FIBROSCAN 03/31/2020 S3, F4 LIG/TRNSXJ FLP TUBE ABDL/VAG APPR UNI/BI history of Tubal ligation LIVER BIOPSY 02/21/2002 hepatic steatosis, moderate and diffuse. Mild portal fibrosis with chronic non-specific inflammation (more content not included)... Normal [facility] Lipase SerPl-cCncon 03-17-20 25 Lipase [Catalytic activity/Vol] 14 U/L Low 16-61 [facility] Comment on above: Order Comment: Speci men Type: BLOOD SPECIMEN Ordering Facility: [facility] Address: [address] [place] [address] Performed By: #### 5 7021-8 #### [facility] CLIA [id number] [address] [place] [address] [place] PT panel Coag (PPP)on 2024 INR Coag (PPP) [Relative time] 1.2 {INR} Normal 0.9-1.3 [facility] Comment on above: Order Comment: [facility] Type: BLOOD SPECIMEN Ordering Facility: [facility] Address: [address] [id number] Result Comment: Chacha min K Antagonist (VKA) Therapeutic Range: INR 2 to 3 (Target INR of 2.5) Note: For patients treated with VKA drugs, such as warfarin, the [place] [employer] 2012 Guideline recommends a therapeutic INR range of 2 to 3 (target INR of 2.5). This recommendation includes high-risk patients with antiphospholipid syndrome with previous arterial or venous thromboembolism, current-generation mechanical or bioprosthetic aortic heart valve replacement. Note: Patients with mechanical aortic valve replacement and additional risk factors for thromboembolic events (atrial fibrillation, previous thromboembolism, LV dysfunction, hypercoagulable conditions) or an older generation mechanical AVR (i.e., ball in-Cage) or any mechanical MVR should have a INR therapeutic range of 2.5 to 3.5 (target INR of 3). Srinivasan BHATIA, et al. Chest 2012, 141:7S-47S Анна DOMINGUEZ, et al. [employer] 2017, 70: 252-289 Performed By: #### 1 9123-9, 14123-0 #### [facility] CLIA [id number] [address] [place] [address] [place] PT Coag (PPP) [Time] 13.2 s High 9.7-13.0 [facility] Comment on above: Order Comment: Harry lunsford Type: BLOOD SPECIMEN Ordering Facility: [facility] Address: [address] [id number] Performed By: #### 1 9123-9, 11258-3 #### [facility] CLIA [id number] [address] [place] [address] [place] PTT, ANTICOAGULANT THERAPYon 03-17-2025 aPTT Coag (PPP) [Time] 28.1 s Normal 23.0-32.4 [facility] Comment on above: Order Comment: Harry lunsford Type: BLOOD SPECIMEN Ordering Facility: [facility] Address: [address] [place] [address] Performed By: #### 1 9123-9, 70374-5 #### [facility] CLIA [id number] [address] [place] [address] [place] SEPSIS LACTATE W/ REFLEX (IN ITIAL)on 03-17-2025 Lactate [Moles/Vol] 1.7 mmol/L Normal <=2.0 [facility] Comment on above: Order Comment: Speci men Type: BLOOD SPECIMEN Ordering Facility: [facility] Address: [address] [place] [address] Performed By: #### S LACTR #### [facility] CLIA [id number] [address] [place] [address] [facility] Urinalysis complete panel (U )on 03-17-2025 Bacteria LM.HPF (Urine sed) [#/Area] Many Abnormal None Seen [facility] Comment on above: Order Comment: Speci men Type: BLOOD SPECIMEN Ordering Facility: [facility] Address: [address] [place] [address] Performed By: #### 5 7021-8 #### [facility] CLIA [id number] [address] [id number] [facility] Bilirubin Ql (U) 1+ Abnormal Negative [facility] Comment on above: Order Comment: Speci men Type: BLOOD SPECIMEN Ordering Facility: [facility] Address: [address] [place] [address] Result Comment: Sugg est correlation with clinical findings and serum bilirubin if clinically indicated. Performed By: #### 5 7021-8 #### [facility] CLIA [id number] [address] [place] [address] [facility] Clarity (Unsp spec) Slightly Cloudy Abnormal Clear [facility] Comment on above: Order Comment: Speci men Type: BLOOD SPECIMEN Ordering Facility: [facility] Address: [address] [place] [address] Performed By: #### 5 7021-8 #### [facility] CLIA [id number] [address] [place] [address] [facility] Color (U) Yellow Normal Yellow [facility] Comment on above: Order Comment: Speci men Type: BLOOD SPECIMEN Ordering Facility: [facility] Address: [address] [place] [address] Performed By: #### 5 7021-8 #### [facility] CLIA [id number] [address] [place] [address] [place] [facility] Epithelial cells LM.HPF (Urine sed) [#/Area] Many Normal [facility] Comment on above: Order Comment: Speci men Type: BLOOD SPECIMEN Ordering Facility: [facility] Address: [address] [place] [address] Performed By: #### 5 7021-8 #### [facility] CLIA [id number] [address] [place] [address] [facility] Glucose Test strip (U) [Mass/Vol] Negative Normal Negative [facility] Comment on above: Order Comment: Speci men Type: BLOOD SPECIMEN Ordering Facility: [facility] Address: [address] [place] [address] Performed By: #### 5 7021-8 #### [facility] CLIA [id number] [address] [place] [address] [facility] Hemoglobin Ql (U) Negative Normal Negative [facility] Comment on above: Order Comment: Speci men Type: BLOOD SPECIMEN Ordering Facility: [facility] Address: [address] [place] [address] Performed By: #### 5 7021-8 #### [facility] CLIA [id number] [address] [place] [address] [facility] Ketones Ql (U) Negative Normal Negative [facility] Comment on above: Order Comment: Speci men Type: BLOOD SPECIMEN Ordering Facility: [facility] Address: [address] [place] [address] Performed By: #### 5 7021-8 #### [facility] CLIA [id number] [address] [place] [address] [facility] Leukocyte esterase Test strip Ql (U) Trace Abnormal Negative [facility] Comment on above: Order Comment: Speci men Type: BLOOD SPECIMEN Ordering Facility: [facility] Address: [address] [place] [address] Performed By: #### 5 7021-8 #### [facility] CLIA [id number] [address] [place] [address] [place] Nitrite Ql (U) Negative Normal Negative [facility] Comment on above: Order Comment: Speci men Type: BLOOD SPECIMEN Ordering Facility: [facility] Address: [address] [place] [address] Performed By: #### 5 7021-8 #### [facility] CLIA [id number] [address] [place] [address] [place] pH (U) 6.0 [pH] Normal 5.0-8.0 [facility] Comment on above: Order Comment: Speci men Type: BLOOD SPECIMEN Ordering Facility: [facility] Address: [address] [place] [address] Performed By: #### 5 7021-8 #### [facility] CLIA [id number] [address] [place], [place] [id number] [place] [facility] Protein (U) [Mass/Vol] 1+ Abnormal Negative [facility] Comment on above: Order Comment: Speci men Type: BLOOD SPECIMEN Ordering Facility: [facility] Address: [address] [place] [address] Performed By: #### 5 7021-8 #### [facility] CLIA [id number] [address] [place] [address] [place] RBC LM.HPF (Urine sed) [#/Area] 0-3 /HPF Normal 0-3 /HPF [facility] Comment on above: Order Comment: Speci men Type: BLOOD SPECIMEN Ordering Facility: [facility] Address: [address] [place] [address] Performed By: #### 5 7021-8 #### [facility] CLIA [id number] [address] [place] [id number] [place] Specific gravity (U) [Rel density] 1.010 Normal 1.005-1.030 [facility] Comment on above: Order Comment: Speci men Type: BLOOD SPECIMEN Ordering Facility: [facility] Address: [address] [place] [address] Performed By: #### 5 7021-8 #### [facility] CLIA [id number] [address] [place] [address] [place] Urobilinogen Ql (U) 2.0 EU/dL Abnormal 0.2-1.0 EU/dL [facility] Comment on above: Order Comment: Speci men Type: BLOOD SPECIMEN Ordering Facility: [facility] Address: [address] [place] [address] Performed By: #### 5 7021-8 #### [facility] CLIA [id number] [address] [place] [address] [place] WBC LM.HPF (Urine sed) [#/Area] 6-10 /HPF Abnormal 0-5 /HPF [facility] Comment on above: Order Comment: Speci men Type: BLOOD SPECIMEN Ordering Facility: [facility] Address: [address] [place] [address] Performed By: #### 5 7021-8 #### [facility] CLIA [id number] [address] [place] [address] [facility] [place] HbA1c (Bld)on 02-12-2025 Average glucose Estimated from glycated hemoglobin (Bld) [Mass/Vol] 140 mg/dL Normal [facility] Comment on above: Order Comment: Speci men Type: BLOOD SPECIMEN Ordering Facility: [facility] Address: [address] [place] [address] Result Comment: eAG: (Estimated average glucose) is a calculated value from HgbA1c and is sales representative publications of the average blood glucose level in the last 2-3 month period. Performed By: #### 5 7021-8 #### [facility] CLIA [id number] [address] [place] [address] [place] HbA1c (Bld) [Mass fraction] 6.5 % High 4.3-5.6 [facility] Comment on above: Order Comment: Speci [facility] Type: BLOOD SPECIMEN Ordering Facility: [facility] Address: [address] [place] [address] Result Comment: Amer [place] Diabetes Association guidelines indicate that patients with HgbA1c in the range 5.7-6.4% are at increased risk for development of diabetes, and intervention by lifestyle modification may be beneficial. HgbA1c greater or equal to 6.5% is considered diagnostic of diabetes. Performed By: #### 5 7021-8 #### [facility] CLIA [id number] [address] [place] [address] [place] [facility] ABD Limited w/ Elastographyo n 02-05-2025 ABD Limited w/ Elastography [facility] Imaging Services [address] [place], [place] [id number] ABD Limited w/ Elastography MR#: [id number] Acct: [id number] Name: ALEXANDRA BELLA Rep #: [id number] : 1955 F 69 From: Pranay ramirez MD PCP: Leonora Davalos RN CARDIOVASCULAR ICU-C Status: [facility] CL Study: ABD Limited w/ Elastography Date of Exam: 01/10 05/05 Exam# [id number] Ordering Dr: Antonietta Wade RN CARDIOVASCULAR ICU-C PROCEDURE: ABD LIMITED W/ ELASTOGRAPHY REASON FOR EXAM: HISTORY OF LIVER DISEASE COMPARISON: None. TECHNIQUE: Right upper quadrant abdominal ultrasound. Marnie ElastQ Imaging shear wave elastography for non- invasive assessment of liver tissue stiffness. Marnie EPIQ Elite. FINDINGS: LIVER: Size: Enlarged (hepatomegaly) Length: 19.4 cm Echotexture: Diffusely echogenic suggesting fatty infiltration Contour: Normal Lesions: None identified Elastography: EQI Med: 10 kPa EQI Med Neftali: 1.8 m/s IQR/Med: 21 %* GALLBLADDER: Surgically absent. COMMON BILE DUCT: Dilated measuring up to 10 mm . PANCREAS: Visualized portions are unremarkable. The distal body and tail are obscured by bowel gas. Visualized portions of the right kidney are unremarkable. No right upper quadrant ascites. US/ABD Limited w/ Elastography IMPRESSION: MODERATE TO SEVERE HEPATIC FIBROSIS Hepatomegaly and diffuse fatty infiltration. Reference Values: SRU <1.37 m/s (5.7kPa): No to mild fibrosis 1.37 m/s - 2.2 m/s: Moderate to severe fibrosis >2.2 m/s (15kPa): Significant fibrosis / cirrhosis METAVIR Score F2 or higher: 1.34 m/s (5.7kPa) F3 or higher: 1.55 m/s (7.3kPa) F4: 1.80 m/s (10kPa) * If the IQR/Med is >30%, the variance in the measurements is a large and the accuracy of the measurement may be in question. Reading Location: [place] [address] CC: VANESSA Davalos; VANESSA Wade Rnp: Signed Normal [facility] L7000.0750on 01-29-2025 P ELASTASE,FECA > 800 Normal >200 [facility] Comment on above: Result Comment: Resu lt Units: ug Elast./g Severe Pancreatic Insufficiency: <100 Moderate Pancreatic Insufficiency: 100 - 200 Normal: >200 Performed By: #### L 7000.0750, L7000.0700 ####[facility] [address] [place], [place], [address] Calprotectin, Stoolon [address] 100 ug/g Normal 0-120 [facility] Comment on above: Result Comment: Conc entration Interpretation Follow-Up < 5 - 50 ug/g Normal None >50 -120 ug/g Borderline Re-evaluate in 4-6 weeks >120 ug/g Abnormal Repeat as clinically indicated Performed at: - [address] [id number] Fingerprint Technician: Alla Silver MD, Phone: [phone] Performed By: #### L 7000.0750, L7000.0700 ####[facility] [address] [place], [address] L5500.0550on 01-25-2025 BEEF <0.10 Normal Class 0 [facility] Comment on above: Performed By: #### L 503.5510, L501.6710, L500.4050, L100.0100, L300.3900, L5500.0550 #### [facility] [address] [place], [place], [id number] CHOCOLATE <0.10 Normal Class 0 [facility] Comment on above: Performed By: #### L 503.5510, L501.6710, L500.4050, L100.0100, L300.3900, L5500.0550 #### [facility] [address] [place], [place], [id number] CODFISH <0.10 Normal Class 0 [facility] Comment on above: Performed By: #### L 503.5510, L501.6710, L500.4050, L100.0100, L300.3900, L5500.0550 #### [facility] [address] [place], [place], [id number] COMMENT Comment Normal . [facility] Comment on above: Result Comment: Jay presley of Specific IgE Class Description of Class ----- < 0.10 0 Negative 0.10 - 0.31 0/I Equivocal/Low 0.32 - 0.55 I Low 0.56 - 1.40 II Moderate 1.41 - 3.90 III High 3.91 - 19.00 IV Very High 19.01 - 100.00 V Very High >100.00 Very High Performed By: #### L 503.5510, L501.6710, L500.4050, L100.0100, L300.3900, L5500.0550 #### [facility] [address] [place], [place], [id number] CORN <0.10 Normal Class 0 [facility] Comment on above: Performed By: #### L 503.5510, L501.6710, L500.4050, L100.0100, L300.3900, L5500.0550 #### [facility] [address] [place], [address] EGG, WHOLE <0.10 Normal Class 0 [facility] Comment on above: Result Comment: Perf ormed at: - [address] [id number] Fingerprint Technician: Alla Silver MD, Phone: [phone] Performed By: #### L 503.5510, L501.6710, L500.4050, L100.0100, L300.3900, L5500.0550 #### [facility] [address] [place], [address] MILK (COW) <0.10 Normal Class 0 [facility] Comment on above: Performed By: #### L 503.5510, L501.6710, L500.4050, L100.0100, L300.3900, L5500.0550 #### [facility] [address] [place], [place], [facility] MUSSELS <0.10 Normal Class 0 [facility] Comment on above: Performed By: #### L 503.5510, L501.6710, L500.4050, L100.0100, L300.3900, L5500.0550 #### [facility] [address] [place], [place], [facility] PEANUT <0.10 Normal Class 0 [facility] Comment on above: Performed By: #### L 503.5510, L501.6710, L500.4050, L100.0100, L300.3900, L5500.0550 #### [facility] [address] [place], [address] PORK <0.10 Normal Class 0 [facility] Comment on above: Performed By: #### L 503.5510, L501.6710, L500.4050, L100.0100, L300.3900, L5500.0550 #### [facility] [address] [place], [address] SALMON <0.10 Normal Class 0 [facility] Comment on above: Performed By: #### L 503.5510, L501.6710, L500.4050, L100.0100, L300.3900, L5500.0550 #### [facility] [address] [place], [address] SHRIMP <0.10 Normal Class 0 [facility] Comment on above: Performed By: #### L 503.5510, L501.6710, L500.4050, L100.0100, L300.3900, L5500.0550 #### [facility] [address] [place], [address] SOYBEAN <0.10 Normal Class 0 [facility] Comment on above: Performed By: #### L 503.5510, L501.6710, L500.4050, L100.0100, L300.3900, L5500.0550 #### [facility] [address] [place], [address] TUNA <0.10 Normal Class 0 [facility] Comment on above: Performed By: #### L 503.5510, L501.6710, L500.4050, L100.0100, L300.3900, L5500.0550 #### [facility] [address] [place], [address] WHEAT <0.10 Normal Class 0 [facility] Comment on above: Performed By: #### L 503.5510, L501.6710, L500.4050, L100.0100, L300.3900, L5500.0550 #### [facility] [address] [place], [address] Calprotectin stoolOrdered By : Antonietta Wade on 01-24-2025 Calprotectin stool 100 ug/g 0-120 [facility] Comment on above: Concentration Interp retation Follow-Up< 5 - 50 ug/g Normal None>50 -120 ug/g Borderline Re-evaluate in 4-6 weeks >120 ug/g Abnormal Repeat as clinically indicatedPerformed at: [facility], [place] [id number] Director: Alla Silver MD, Phone: [phone] Chest without Contraston Chest without Contrast [facility] Imaging Services [address] [place], [place] [address] Chest without Contrast MR#: [id number] Acct: [id number] Name: ALEXANDRA BELLA Rep #: [id number] : 1955 F 69 From: Pranay ramirez MD PCP: VANESSA Gilliland Status: REG CLI Study: Chest without Contrast Date of Exam: 01/24/25 Exam# [id number] Ordering Dr: Ada Wheeler RN CARDIOVASCULAR ICU- C PROCEDURE: CHEST WITHOUT CONTRAST 01/24/2025 REASON FOR EXAM: COUGH > 6 MONTHS, NORMAL CHEST XRAY TECHNIQUE: Chest CT without contrast. Coronal and Sagittal reconstruction series were provided. One or more dose reduction techniques were used (e.g., Automated exposure control, adjustment of the mA and/or kV according to patient size, use of iterative reconstruction technique RADIATION DOSE SUMMARY: CTDlvol: 20.15 mGy DLP: 674.64 mGycm COMPARISON: Prior chest radiograph dated December 07, 2024. FINDINGS: Hardware: Status post left mastectomy with left breast prostheses. Surgical clips are seen in the left axilla. Lymph nodes: Small benign-appearing mediastinal lymph nodes. Heart and Vasculature: Coronary artery calcifications are noted. Coronary Artery Calcifications: Present Lungs and Airways: Mild increased linear markings at the lung bases suggestive of mild basilar scarring. Increased markings are also seen along the posterior aspect of the right middle lobe suggestive of scarring. Pleura: No evidence of pleural effusion. Upper Abdomen: Prior cholecystectomy. Bones: Degenerative changes of the thoracic spine. CT/Chest without Contrast IMPRESSION: Coronary artery calcification (CAC) is is present Findings suggestive of linear scarring at the lung bases as well as in the posterior aspect of the right middle lobe. Reading Location: [id number] CC: VANESSA Davalos; Ada Wheeler NP Rnp: Signed Normal [facility] Stool pancreatic elastase me asurement (mass/mass)Ordered By: Antonietta Wade on 01-24-2025 Elastase.pancreatic (Stl) [Mass/Mass] > 800 >200 [facility] Comment on above: Result Units: ug Jazmín st./g Severe Pancreatic Insufficiency: <100 Moderate Pancreatic Insufficiency: 100 - 200 Normal: >200 Absolute lymphocyte countOrd ered By: Antonietta Wade on 01-23-2025 Lymphocytes Auto (Unsp spec) [#/Vol] 2.64 10*3/uL 0.83-4.51 [facility] Absolute neutrophil countOrd ered By: Antonietta Wade on 01-23-2025 Neutrophils (Bld) [#/Vol] 4.4 10*3/uL 2.0-7.7 [facility] Ammoniaon 01-23-2025 Ammonia (P) [Moles/Vol] 35.0 umol/L Normal [facility] Comment on above: Performed By: #### L 503.5510, L501.6710, L500.4050, L100.0100, L300.3900, L5500.0550 #### [facility] [address] [place], [address] Anion gap in Serum or Plasma Ordered By: Antonietta Wade on 01-23-2025 Anion gap [Moles/Vol] 13 mmol/L - [facility] Automated lymphocyte count a s percentage of total leukocytesOrdered By: Antonietta Wade on 01-23-2025 Lymphocytes/100 WBC Auto (Unsp spec) 34.2 % - [facility] BUN/creatinine ratioOrdered By: Antonietta Wade on 01-23-2025 Urea nitrogen/Creatinine [Mass ratio] 24.9 mg/mg High - [facility] Basophil percentageOrdered B y: Antonietta Wade on 01-23-2025 Basophils/100 WBC (Bld) 0.4 % 0-1 [facility] Bilirubin, totalOrdered By: Antonietta Wade on 01-23-2025 Bilirubin [Mass/Vol] 0.34 mg/dL 0.00-1.30 [facility] CBC W/Diff, Automatedon 01-09 Absolute Lymph 2.64 X10 3/uL Normal 0.83-4.51 [facility] Comment on above: Performed By: #### L 503.5510, L501.6710, L500.4050, L100.0100, L300.3900, L5500.0550 #### [facility] [address] [place], [address] Absolute Neut 4.4 X10 3/uL Normal 2.0-7.7 [facility] Comment on above: Performed By: #### L 503.5510, L501.6710, L500.4050, L100.0100, L300.3900, L5500.0550 #### [facility] [address] [place], [address] Basophils/100 WBC (Bld) 0.4 % Normal 0-1 [facility] Comment on above: Performed By: #### L 503.5510, L501.6710, L500.4050, L100.0100, L300.3900, L5500.0550 #### [facility] [address] [place], [address] Eosinophils/100 WBC (Bld) 1.3 % Normal 0-5 [facility] Comment on above: Performed By: #### L 503.5510, L501.6710, L500.4050, L100.0100, L300.3900, L5500.0550 #### [facility] [address] [place], [address] Erythrocyte distribution width (RBC) [Ratio] 13.4 % Normal 11.6-14.6 [facility] Comment on above: Performed By: #### L 503.5510, L501.6710, L500.4050, L100.0100, L300.3900, L5500.0550 #### [facility] [address] [place], [address] Hematocrit (Bld) [Volume fraction] 42.3 % Normal 37-47 [facility] Comment on above: Performed By: #### L 503.5510, L501.6710, L500.4050, L100.0100, L300.3900, L5500.0550 #### [facility] [address] [place], [address] Hemoglobin (Bld) [Mass/Vol] 14.1 g/dL Normal 12.0-15.0 [facility] Comment on above: Performed By: #### L 503.5510, L501.6710, L500.4050, L100.0100, L300.3900, L5500.0550 #### [facility] [address] [place], [address] IG% 0.100 Normal 0.0-0.9 [facility] Comment on above: Result Comment: IG% - Immature Granulocytes (promyelocytes, myelocytes and metamyelocytes) > 1% indicates that a LEFT SHIFT is Present. Performed By: #### L 503.5510, L501.6710, L500.4050, L100.0100, L300.3900, L5500.0550 #### [facility] [address] [place], [address] Lymphocytes/100 WBC (Bld) 34.2 % Normal 19-41 [facility] Comment on above: Performed By: #### L 503.5510, L501.6710, L500.4050, L100.0100, L300.3900, L5500.0550 #### [facility] [address] [place], [address] MCH (RBC) [Entitic mass] 29.9 pg Normal 27.0-32.0 [facility] Comment on above: Performed By: #### L 503.5510, L501.6710, L500.4050, L100.0100, L300.3900, L5500.0550 #### [facility] [address] [place], [address] MCHC (RBC) [Mass/Vol] 33.3 g/dL Normal 32-36 [facility] Comment on above: Performed By: #### L 503.5510, L501.6710, L500.4050, L100.0100, L300.3900, L5500.0550 #### [facility] [address] [place], [address] MCV (RBC) [Entitic vol] 89.8 fL Normal 81-99 [facility] Comment on above: Performed By: #### L 503.5510, L501.6710, L500.4050, L100.0100, L300.3900, L5500.0550 #### [facility] [address] [place], [address] Monocytes/100 WBC (Bld) 6.4 % Normal 0-10 [facility] Comment on above: Performed By: #### L 503.5510, L501.6710, L500.4050, L100.0100, L300.3900, L5500.0550 #### [facility] [address] [place], [address] Neutrophils/100 WBC (Bld) 57.6 % Normal 47-70 [facility] Comment on above: Performed By: #### L 503.5510, L501.6710, L500.4050, L100.0100, L300.3900, L5500.0550 #### [facility] [address] [place], [address] Nucleated RBC (Bld) [#/Vol] 0 10*3/uL Normal 0-5 [facility] Comment on above: Performed By: #### L 503.5510, L501.6710, L500.4050, L100.0100, L300.3900, L5500.0550 #### [facility] [address] [place], [address] Platelet mean volume (Bld) [Entitic vol] 11.5 fL Normal 6.2-12.0 [facility] Comment on above: Performed By: #### L 503.5510, L501.6710, L500.4050, L100.0100, L300.3900, L5500.0550 #### [facility] [address] [place], [address] Platelets (Bld) [#/Vol] 199 10*3/uL Normal 150-450 [facility] Comment on above: Performed By: #### L 503.5510, L501.6710, L500.4050, L100.0100, L300.3900, L5500.0550 #### [facility] [address] [place], [address] RBC (Bld) [#/Vol] 4.71 10*6/uL Normal 4.2-5.4 [facility] Comment on above: Performed By: #### L 503.5510, L501.6710, L500.4050, L100.0100, L300.3900, L5500.0550 #### [facility] [address] [place], [address] RDW SD 44.2 fl High 35.1-43.9 [facility] Comment on above: Performed By: #### L 503.5510, L501.6710, L500.4050, L100.0100, L300.3900, L5500.0550 #### [facility] [address] [place], [address] WBC (Bld) [#/Vol] 7.7 10*3/uL Normal 4.4-11.0 [facility] Comment on above: Performed By: #### L 503.5510, L501.6710, L500.4050, L100.0100, L300.3900, L5500.0550 #### [facility] [address] [place], [address] CRPon 01-23-2025 C-REACTIVE PROT < 3.00 Normal 0.0-3.0 [facility] Comment on above: Performed By: #### L 503.5510, L501.6710, L500.4050, L100.0100, L300.3900, L5500.0550 #### [facility] [address] [place], [address] Carbon dioxide, total [Moles /volume] in Central venous bloodOrdered By: Antonietta Wade on 01-23-2025 CO2 [Moles/Vol] 20.2 mmol/L Low 21.0-32.0 [facility] Chloride assayOrdered By: Colin Wade on 01-23-2025 Chloride [Moles/Vol] 107 mmol/L 98-108 [facility] Comprehensive Metabolic Prof ilon 01-23-2025 Albumin [Mass/Vol] 4.0 g/dL Normal 3.4-4.8 [facility] Comment on above: Performed By: #### L 503.5510, L501.6710, L500.4050, L100.0100, L300.3900, L5500.0550 #### [facility] [address] [place], [address] Albumin/Globulin [Mass ratio] 1.3 {ratio} Normal 0.9-2.4 [facility] Comment on above: Performed By: #### L 503.5510, L501.6710, L500.4050, L100.0100, L300.3900, L5500.0550 #### [facility] [address] [place], [address] ALK PHOS 109 U/L High 35-104 [facility] Comment on above: Performed By: #### L 503.5510, L501.6710, L500.4050, L100.0100, L300.3900, L5500.0550 #### [facility] [address] [place], [address] ALT [Catalytic activity/Vol] 97 U/L High <=34 [facility] Comment on above: Performed By: #### L 503.5510, L501.6710, L500.4050, L100.0100, L300.3900, L5500.0550 #### [facility] [address] [place], [address] AST [Catalytic activity/Vol] 74 U/L High <=31 [facility] Comment on above: Performed By: #### L 503.5510, L501.6710, L500.4050, L100.0100, L300.3900, L5500.0550 #### [facility] [address] [place], [address] Bilirubin [Mass/Vol] 0.34 mg/dL Normal 0.00-1.30 [facility] Comment on above: Performed By: #### L 503.5510, L501.6710, L500.4050, L100.0100, L300.3900, L5500.0550 #### [facility] [address] [place], [address] BUN/CRE 24.9 RATIO High 10-20 [facility] Comment on above: Performed By: #### L 503.5510, L501.6710, L500.4050, L100.0100, L300.3900, L5500.0550 #### [facility] [address] [place], [address] Calcium [Mass/Vol] 9.7 mg/dL Normal 7.6-11.0 [facility] Comment on above: Performed By: #### L 503.5510, L501.6710, L500.4050, L100.0100, L300.3900, L5500.0550 #### [facility] [address] [place], [address] Chloride [Moles/Vol] 107 mmol/L Normal 98-108 [facility] Comment on above: Performed By: #### L 503.5510, L501.6710, L500.4050, L100.0100, L300.3900, L5500.0550 #### [facility] [address] [place], [address] CO2 [Moles/Vol] 20.2 mmol/L Low 21.0-32.0 [facility] Comment on above: Performed By: #### L 503.5510, L501.6710, L500.4050, L100.0100, L300.3900, L5500.0550 #### [facility] [address] [place], [address] Creatinine [Mass/Vol] 0.82 mg/dL Normal 0.70-1.20 [facility] Comment on above: Performed By: #### L 503.5510, L501.6710, L500.4050, L100.0100, L300.3900, L5500.0550 #### [facility] [address] [place], [address] GAP 13 Normal 5-15 [facility] Comment on above: Performed By: #### L 503.5510, L501.6710, L500.4050, L100.0100, L300.3900, L5500.0550 #### [facility] [address] [place], [address] GFR/1.73 sq M.predicted among non-blacks MDRD (S/P/Bld) [Vol rate/Area] 77 mL/min/{1.73_m2} Normal >60 [facility] Comment on above: Result Comment: mL/m in/1.73m2 CKD-EPI Creatinine Equation (2020) Performed By: #### L 503.5510, L501.6710, L500.4050, L100.0100, L300.3900, L5500.0550 #### [facility] [address] [place], [address] Globulin (S) [Mass/Vol] 3.2 g/dL Normal 2.2-4.2 [facility] Comment on above: Performed By: #### L 503.5510, L501.6710, L500.4050, L100.0100, L300.3900, L5500.0550 #### [facility] [address] [place], [address] Glucose [Mass/Vol] 162 mg/dL High 70-99 [facility] Comment on above: Performed By: #### L 503.5510, L501.6710, L500.4050, L100.0100, L300.3900, L5500.0550 #### [facility] [address] [place], [address] Potassium [Moles/Vol] 4.0 mmol/L Normal 3.3-5.1 [facility] Comment on above: Performed By: #### L 503.5510, L501.6710, L500.4050, L100.0100, L300.3900, L5500.0550 #### [facility] [address] [place], [address] Sodium [Moles/Vol] 140 mmol/L Normal 133-145 [facility] Comment on above: Performed By: #### L 503.5510, L501.6710, L500.4050, L100.0100, L300.3900, L5500.0550 #### [facility] [address] [place], [address] T PROT 7.2 g/dL Normal 5.9-8.4 [facility] Comment on above: Performed By: #### L 503.5510, L501.6710, L500.4050, L100.0100, L300.3900, L5500.0550 #### [facility] [address] [place], [address] Urea nitrogen [Mass/Vol] 20 mg/dL High 4-19 [facility] Comment on above: Performed By: #### L 503.5510, L501.6710, L500.4050, L100.0100, L300.3900, L5500.0550 #### [facility] [address] [place], [place], [id number] Eosinophil percentageOrdered By: Antonietta Wade on 01-23-2025 Eosinophils/100 WBC (Bld) 1.3 % 0-5 [facility] Erythrocyte distribution wid th ratioOrdered By: Antonietta Wade on 01-23-2025 Erythrocyte distribution width (RBC) [Ratio] 13.4 % 11.6-14.6 [facility] Erythrocyte distribution wid th standard deviationOrdered By: Antonietta Wade on 01-23-2025 Erythrocyte distribution width (RBC) [Ratio] 44.2 fl High 35.1-43.9 [facility] Gastroenterology Visit Repor ton 01-23-2025 Gastroenterology Visit Report [facility] Gastroenterology [address] [facility] [place] [address] OFFICE VISIT Date of Service: 01/23/25 MR#: [id number] Acct: [id number] Name: ALEXANDRA BELLA Chi Rep #: [id number] : 1955 Provider: VANESSA cole Age/Sex: 69/F Location: [facility] Status: Signed Intake Vital Signs 01/10/25 12:45 Height 5 ft 3 in Weight: 283 lb BMI 50.1 BP 120/75 Blood Pressure Location Rt radial Position Sitting Respiration 20 H Pulse 81 Pulse Source Monitor Temp 97.2 F L Pulse Oximetry (%) 96 Oxygen Delivery Method room air Intake Visit Reasons: GERD w/o esophagitis Allergies infliximab (From Remicade) Allergy (Severe, Verified 01/23/25 07:35) Anaphylaxis oxymetazoline (From Afrin (oxymetazoline)) Allergy (Severe, Verified 01/23/25 07:35) CHEST PAIN Penicillins Allergy (Verified 01/23/25 07:35) Hives adhesive tape Adverse Reaction (Severe, Verified 01/23/25 07:35) / clarithromycin Adverse Reaction (Severe, Verified 01/23/25 07:35) crmps and diarrhea dulaglutide (From Trulicity) Adverse Reaction (Severe, Verified 01/23/25 07:35) Abd cramps/diarrhea latex Adverse Reaction (Severe, Verified 01/23/25 07:35) / spironolactone (From Aldactone) Adverse Reaction (Severe, Verified 01/23/25 07:35) headaches Medications ???Medication ???Instructions ???Recorded ???Confirmed ???Type tramadol 50 mg tablet 50 mg PO Q6H PRN Pain 08/23/18 History celecoxib 200 mg capsule 200 mg PO 1200 08/05/19 01/23/25 H istory blood-glucose meter (FreeStyle #1 ea 01/06/20 01/10/25 Rx [place] Lite kit) lancing device with lancets kit #1 ea 08/13/20 01/10/25 Rx (OneTouch Delica Plus Lancing Device kit) compress.stocking,knee,r eg,lrg #2 ea 08/31/20 01/10/25 Rx golimumab 12.5 mg/mL intravenous See Rx Instructions .Route .COMPLE X 08/24/21 01/23/25 History solution (Simponi ARIA) FreeStyle Lite Strips (blood sugar #300 ea 12/08/21 01/10/25 Rx diagnostic) lancets 28 gauge (FreeStyle #120 ea 12/08/21 01/10/25 Rx Lancets) diphenoxylate-atropine 2.5 1 tab PO TID PRN diarrhea #30 tabs 09/26/22 01/10/25 Rx mg-0.025 mg tablet (Lomotil) clobetasol 0.05 % topical ointment 1 applic topical QHS PRN lichen 08/28/23 01/10/25 Rx sclerosis #30 grams levothyroxine 200 mcg tablet 200 mcg PO DAILY 01/05/24 01/23/25 History (Synthroid) sucralfate 1 gram tablet (Carafate) 1 g PO QDAY PRN 01/05/24 History apixaban 5 mg tablet (Eliquis) 5 mg PO BID #180 tabs 04/22/24 Rx potassium chloride 10 mEq 10 meq PO DAILY #90 caps 04/22/24 01/23/25 Rx capsule,extended release furosemide 40 mg tablet 40 mg PO DAILY edema #90 tabs 0302/0201/23/25 Rx losartan 50 mg tablet 50 mg PO DAILY #90 tabs 11/13/24 0 01/23/25 Rx albuterol sulfate 90 mcg/actuation 2 puff inhalation Q4H PRN 01/23/25 Rx aerosol inhaler shortness of breath or wheezing #8.5 grams fluticasone propionate 50 2 spray intranasal DAILY #18.2 mL 11/19/24 01/10/25 Rx mcg/actuation nasal spray,suspension (Allergy Relief (fluticasone)) cefdinir 300 mg capsule 300 mg PO BID #20 caps 12/04/24 Rx flecainide 100 mg tablet 100 mg PO Q12H #180 tabs 01/02/25 01/23/25 Rx metoprolol tartrate 25 mg tablet 12.5 mg (1/2 x 25 mg) PO DAILY #45 01/02/25 01/23/25 Rx tabs fluticasone furoate 200 1 inh inhalation Q24H #30 ea 01/1001/10/25 Rx mcg/actuation blister powder for inhalation (Arnuity Ellipta) tirzepatide 5 mg/0.5 mL mg subcut 01/10/25 01/23/25 Histor y subcutaneous pen injector (Low[place]unerika) dicyclomine 10 mg capsule 10 mg PO BID PRN abdominal pain 01/23/25 Rx #60 caps famotidine 40 mg tablet 40 mg PO QHS #30 tabs 01/23/25 Rx pantoprazole 40 mg tablet,delayed 40 mg PO BID #60 tabs 01/23/25 Rx release Have you fallen in the past year?: No [facility] Medical History Body mass index (BMI) 35 or more Bilateral acute otitis media Type 2 diabetes mellitus with hyperglycemia Shingles Right bundle branch block (RBBB) Nonobstructive atherosclerosis of coronary artery Chronic diastolic (congestive) heart failure Bronchitis 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 Lichen sclerosus Lichen sclerosus Chronic sinusitis Yeast infection Hepatic fibrosis, stage 3 History of cardioversion Paroxysmal atrial fibrillation Pure hypercholesterolemia [place] filter in place Rectal cancer PVD (peripheral vascular disease) Varicosities of leg Pneumonia Diverticulitis Chronic UTI (urinary tract infection) Lipoma Diarrhea Soft tissue mass Peptic ulcer disease Other chest pain UTI (urinary tract infection) Bronchitis Hypersomnia [place] (more content not included)... Normal [facility] Glomerular filtration rate ( GFR) estimation/1.73 sq m using serum, plasma, or whole bOrdered By: Antonietta Wade on 01-23-2025 GFR/1.73 sq M.predicted among non-blacks MDRD (S/P/Bld) [Vol rate/Area] 77 mL/min/{1.73_m2} >60 [facility] Comment on above: mL/min/1.73m2 CKD-EP I Creatinine Equation (2020) Hematocrit Auto (Bld) [Volum e fraction]Ordered By: Antonietta Wade on 01-23-2025 Hematocrit (Bld) [Volume fraction] 42.3 % 37-47 [facility] Hemoglobin measurementOrdere d By: Antonietta Wade on 01-23-2025 Hemoglobin (Bld) [Mass/Vol] 14.1 g/dL 12.0-15.0 [facility] Immature granulocytes/100 WB C Auto (Bld)Ordered By: Antonietta Wade on 01-23-2025 Immature granulocytes/100 WBC (Bld) 0.100 % 0.0-0.9 [facility] Comment on above: IG% - Immature Granu locytes (promyelocytes, myelocytes and metamyelocytes) > 1% indicates that a LEFT SHIFT is Present. International normalized rat io (INR) calculationOrdered By: Antonietta Wade on 01-23-2025 INR Coag (Bld) [Relative time] 1.3 {INR} [facility] - Chemistry and C hemistry - challengeOrdered By: Antonietta Wade on 01-23-2025 AST [Catalytic activity/Vol] 74 U/L High <32 [facility] - Miscellaneous t estsOrdered By: Antonietta Wade on 01-23-2025 Service comment (Unsp spec) [Interp] Comment . [facility] Comment on above: Levels of Specific I gE Class Description of Class ----- < 0.10 0 Negative 0.10 - 0.31 0/I Equivocal/Low 0.32 - 0.55 I Low 0.56 - 1.40 II Moderate 1.41 - 3.90 III High 3.91 - 19.00 IV Very High 19.01 - 100.00 V Very High >100.00 Very High MCV (mean corpuscular volume ) determinationOrdered By: Antonietta Wade on 01-23-2025 MCV (RBC) [Entitic vol] 89.8 fL 81-99 [facility] Mean corpuscular hemoglobin (MCH) determinationOrdered By: Antonietta Wade on 01-23-2025 MCH (RBC) [Entitic mass] 29.9 pg 27.0-32.0 [facility] Mean corpuscular hemoglobin concentration (MCHC) determinationOrdered By: Antonietta Wade on 01-23-2025 MCHC (RBC) [Mass/Vol] 33.3 g/dL 32-36 [facility] Mean platelet volume determi nationOrdered By: Antonietta Wade on 01-23-2025 Platelet mean volume (Bld) [Entitic vol] 11.5 fL 6.2-12.0 [facility] Monocyte percentageOrdered B y: Antonietta Wade on 01-23-2025 Monocytes/100 WBC (Bld) 6.4 % 0-10 [facility] Neutrophil percentageOrdered By: Antonietta Wade on 01-23-2025 Neutrophils/100 WBC (Bld) 57.6 % 47-70 [facility] No Panel InformationOrdered By: Antonietta Wade on 01-23-2025 74 U/L High <32 [facility] Nucleated red blood cell per centageOrdered By: Antonietta Wade on 01-23-2025 Nucleated RBC/100 WBC (Bld) [Ratio] 0 % 0-5 [facility] Platelet countOrdered By: Colin duff Mauro on 01-23-2025 Platelets (Bld) [#/Vol] 199 10*3/uL 150-450 [facility] Potassium measurement (mass/ volume)Ordered By: Antonietta Wade on 01-23-2025 Potassium (Unsp spec) [Mass/Vol] 4.0 mmol/L 3.3-5.1 [facility] Prothrombin Time w/INRon INR Coag (PPP) [Relative time] 1.3 {INR} Normal [facility] Comment on above: Performed By: #### L 503.5510, L501.6710, L500.4050, L100.0100, L300.3900, L5500.0550 #### [facility] [address] [place], [place], [id number] PT Coag (PPP) [Time] 16.6 s High 11.7-14.9 [facility] Comment on above: Performed By: #### L 503.5510, L501.6710, L500.4050, L100.0100, L300.3900, L5500.0550 #### [facility] [address] [place], [place], [id number] Prothrombin timeOrdered By: Antonietta Wade on 01-23-2025 PT Coag (PPP) [Time] 16.6 s High 11.7-14.9 [facility] RBC Auto (Bld) [#/Vol]Ordere d By: Antonietta Wade on 01-23-2025 RBC (Bld) [#/Vol] 4.71 10*6/uL 4.2-5.4 [facility] Serum beef IgE antibody assa y (units/volume)Ordered By: Antonietta Wade on 01-23-2025 Beef IgE Qn (S) <0.10 kU/L Class 0 [facility] Serum codfish IgE antibody a ssay (units/volume)Ordered By: Antonietta Wade on 01-23-2025 Codfish IgE Qn (S) <0.10 kU/L Class 0 [facility] Serum corn IgE antibody assa y (units/volume)Ordered By: Antonietta Wade on 01-23-2025 Amity IgE Qn (S) <0.10 kU/L Class 0 [facility] Serum cow milk IgE antibody assay (units/volume)Ordered By: Antonietta Wade on 01-23-2025 Cow milk IgE Qn (S) <0.10 kU/L Class 0 [facility] Serum creatinine measurement (mass/volume)Ordered By: Antonietta Wade on 01-23-2025 Creatinine [Mass/Vol] 0.82 mg/dL 0.70-1.20 [facility] Serum globulin measurementOr dered By: Antonietta Wade on 01-23-2025 Globulin (S) [Mass/Vol] 3.2 g/dL 2.2-4.2 [facility] Serum glucose measurement (m ass/volume)Ordered By: Antonietta Wade on 01-23-2025 Glucose [Mass/Vol] 162 mg/dL High 70-99 [facility] Serum or plasma C reactive p rotein measurement (mass/volume)Ordered By: Antonietta Wade on 01-23-2025 CRP [Mass/Vol] mg/L 0.0-3.0 [facility] Serum or plasma alanine kim otransferase (ALT) measurementOrdered By: Antonietta Wade on 01-23-2025 ALT [Catalytic activity/Vol] 97 U/L High <35 [facility] Serum or plasma albumin shamir urement (mass/volume)Ordered By: Antonietta Wade on 01-23-2025 Albumin [Mass/Vol] 4.0 g/dL 3.4-4.8 [facility] Serum or plasma albumin/glob ulin mass ratioOrdered By: Antonietta Wade on 01-23-2025 Albumin/Globulin [Mass ratio] 1.3 {ratio} 0.9-2.4 [facility] Serum or plasma alkaline oren sphatase measurementOrdered By: Antonietta Wade 01-23-2025 ALP [Catalytic activity/Vol] 109 U/L High 35-104 [facility] Serum or plasma calcium shamir urement (mass/volume)Ordered By: Antonietta Wade on 01-23-2025 Calcium [Mass/Vol] 9.7 mg/dL 7.6-11.0 [facility] Serum or plasma urea nitroge n measurement (mass/volume)Ordered By: Antonietta Wade on 01-23-2025 Urea nitrogen [Mass/Vol] 20 mg/dL High 4-19 [facility] Serum peanut IgE antibody as say (units/volume)Ordered By: Antonietta Wade on 01-23-2025 Peanut IgE Qn (S) <0.10 kU/L Class 0 [facility] Serum pork IgE antibody assa y (units/volume)Ordered By: Antonietta Wade on 01-23-2025 Pork IgE Qn (S) <0.10 kU/L Class 0 [facility] Serum salmon IgE antibody as say (units/volume)Ordered By: Antonietta Wade on 01-23-2025 Menard IgE Qn (S) <0.10 kU/L Class 0 [facility] Serum soybean IgE antibody a ssay (units/volume)Ordered By: Antonietta Wade on 01-23-2025 Soybean IgE Qn (S) <0.10 kU/L Class 0 [facility] Serum tuna IgE antibody assa y (units/volume)Ordered By: Antonietta Wade on 01-23-2025 Tuna IgE Qn (S) <0.10 kU/L Class 0 [facility] Serum wheat IgE antibody ass ay (units/volume)Ordered By: Antonietta Wade on 01-23-2025 Wheat IgE Qn (S) <0.10 kU/L Class 0 [facility] Serum whole egg IgE antibody assay (units/volume)Ordered By: Antonietta Wade on 01-23-2025 Whole Egg IgE Qn (S) <0.10 kU/L Class 0 [facility] Comment on above: Performed at: [facility] Krystle canchola [address] [id number] Director: Alla Silver MD, Phone: [phone] Sodium levelOrdered By: Maria Luisa Wade on 01-23-2025 Sodium [Moles/Vol] 140 mmol/L 133-145 [facility] Total proteinOrdered By: Omkar Wade on 01-23-2025 Protein [Mass/Vol] 7.2 g/dL 5.9-8.4 [facility] Venous blood ammonia measure mentOrdered By: Antonietta Wade on 01-23-2025 Ammonia (P) [Moles/Vol] 35.0 umol/L 11-51 [facility] White blood cell (WBC) count Ordered By: Antonietta Wade on 01-23-2025 WBC (Bld) [#/Vol] 7.7 10*3/uL 4.4-11.0 [facility] 6 Minute Walk Teston 025 6 Minute Walk Test y [facility] Services/Neurology [address] [place] [address] MR#: [id number] Acct: [id number] Name: ALEXANDRA BELLA Rep #: [id number] : 1955 69 From: Yaya Gray DO Referring Dr: Marissa Camp RN CARDIOVASCULAR ICU RN CARDIOVASCULAR ICU-C Status: REG CLI Location: [facility] Date: Sex: F C PSN 6 Minute Walk Test 6 Minute Walk Test 6 Minute Walk Test: 6 Minute Walk Test PSN:6-Minute Walk Test Start: 01/07/25 08:17 Freq: Status: Active Protocol: [id number] Document 01/07/25 08:15 AEH (Rec: 01/07/25 08:26 AEH [id number]) 6 Minute Walk Test Date Performed 01/07/25 Time Performed 08:15 Height 5 ft 3 in Weight: 284 lb Weight in Pounds 284.[address]: Brandt Assistive device None used: Pre-test Oxygen Delivery Room Air Method Pulse Ox (%) 96 Pulse Rate (60-100 103 H beats/min) Dyspnea Erma Scale ( 0 0-10) Exertion Erma Scale 6 (6-20) 1st minute Oxygen Delivery Room Air Method Pulse Ox (%) 93 Pulse Rate (60-100 125 H beats/min) 2nd minute Oxygen Delivery Room Air Method Pulse Ox (%) 95 Pulse Rate (60-100 135 H beats/min) Dyspnea Erma Scale ( 2 0-10) Exertion Erma Scale 13 (6-20) Number of Rests 1 Taken Reported Symptoms Increased Work of Breathing 3rd minute Oxygen Delivery Room Air Method Pulse Ox (%) 95 Pulse Rate (60-100 136 H beats/min) Dyspnea Erma Scale ( 2 0-10) Exertion Erma Scale 13 (6-20) Number of Rests 1 Taken Reported Symptoms Increased Work of Breathing 4th minute Oxygen Delivery Room Air Method Pulse Ox (%) 94 Pulse Rate (60-100 134 H beats/min) Dyspnea Erma Scale ( 2 0-10) Exertion Erma Scale 13 (6-20) Number of Rests 1 Taken Reported Symptoms Increased Work of Breathing 5th minute Oxygen Delivery Room Air Method Pulse Ox (%) 95 Pulse Rate (60-100 138 H beats/min) Dyspnea Erma Scale ( 2 0-10) Exertion Erma Scale 13 (6-20) Number of Rests 1 Taken Reported Symptoms Increased Work of Breathing 6th minute Oxygen Delivery Room Air Method Pulse Ox (%) 94 Pulse Rate (60-100 133 H beats/min) Dyspnea Erma Scale ( 3 0-10) Exertion Erma Scale 13 (6-20) Reported Symptoms Increased Work of Breathing Post-test Oxygen Delivery Room Air Method Pulse Ox (%) 95 Pulse Rate (60-100 103 H beats/min) Full Laps Walked 10 Partial Lap, Number 0 of Tiles Walked Total Distance 590 Walked (ft) 01/07/25 08:22 Cardiopulmonary Services by Kelly Andrade Pt stated prior to start of walk that her RA was bad today. Pt did take multiple stops during walk that would last approximatively 10-15 seconds. Pt did state her breaks were do to pain and S.O.B. Initialized on 01/07/25 08:22 - END OF NOTE Interpretation Interpretation: The patient ambulated 590 feet over the course of 6 minutes beginning on room air without assistive devices. Pretesting oxygen saturation was noted to be 96% on room air. With ambulation, the talon oxygen saturation was 93%. Although there was evidence of impaired walk distance, there was no significant exertional oxygen desaturation. Recommendations Recommendations: There is no indication for the use of supplemental oxygen at this time. 01/10/25 0917 Date Yaya Brown DO CC: Date Dictated: 01/10/25915 Date Transcribed: 01/10/25915 Rnp: Dr. aYya Gray DO Signed Normal [facility] Pulmonary Visit Reporton Pulmonary Visit Report [facility] [place] [address] [place] [address] OFFICE VISIT Date of Service: 01/10/25 MR#: [id number] Acct: [id number] Name: ALEXANDRA BELLA Rep #: [id number] : 1955 Provider: Ada Wheeler NP Age/Sex: 69/F Location: [facility] Status: Signed Assessment and Plan Assessment and Plan (1) Sleep apnea: Status: Chronic Qualifiers: Sleep apnea type: obstructive Qualified Code(s): G47.33 - Obstructive sleep apnea (adult) (pediatric) Plan: Suboptimally controlled. The patient is experiencing symptoms consistent with suboptimal control of sleep apnea. This has been a short interval follow-up and at the last follow-up a compliance download was obtained which showed that there was control of the apnea at that time. I am concerned that the nocturnal oxygenation is not controlled which could be worsening her cardiovascular comorbid conditions. I have recommended a nocturnal oximetry be performed at this time through her vendor. The patient should also work with RT for a mask fit. This should be performed prior to the nocturnal oximetry. I believe that the patient would benefit from an alternative headgear to avoid the left occipital region if possible. Obtain compliance download for follow-up visit. (2) Obesity: Status: Chronic Qualifiers: Body mass index: BMI 45.0-49.9 Obesity classification: adult class 3 (BMI >= 40) Obesity type: due to excess calories Serious obesity comorbidity presence: with serious comorbidity Qualified Code(s): E66.01 - Morbid (severe) obesity due to excess calories; Z68.42 - Body mass index (BMI) 45.0-49.9, adult Plan: Complicates exam, plan, care and prognosis. Continue to encourage healthy weight loss. Continue with Kelley as this has provided her with benefit. (3) Dyspnea on exertion: Status: Chronic Plan: The shortness of breath on exertion has worsened. This could be due to to underlying asthma versus CHF versus deconditioning. Her last echocardiogram showed an ejection fraction that was 55% and pulmonary artery systolic pressure at 20 mmHg so pulmonary hypertension is not in the differential. The chest pain that was reported at previous visit has resolved. She is reporting a tightness sensation that is present today which could be consistent with asthma. (4) Cough: Status: Acute Qualifiers: Cough type: chronic Qualified Code(s): R05.3 - Chronic cough Plan: Cough has been present for over 6 months and has waxed and waned in nature. The etiology of cough is unclear and I believe multifactorial. I am suspecting that the patient has a degree of asthma as her NIOX is elevated today in the context of a normal PFT and PA and lateral chest x-ray with various known triggers that would produce worsening respiratory symptoms. I have recommended a trial of an ICS inhaler to determine if there is benefit in regards to cough, shortness of breath, chest tightness. Arnuity 200, 1 puff daily has been prescribed to patient today. The use and potential side effects of this inhaler were reviewed at length with patient today. Oral care was discussed at length with patient today. Rheumatoid lung can also be present and the the etiology for cough. Unfortunately the gas transfer was not able to be obtained on the PFT. Due to the duration of cough I have recommended that the patient undergo a noncontrasted chest CT. There is also known incidence of cough with ulcerative colitis although more rare, up to 25% with active disease and 15% with inactive disease. (5) GERD (gastroesophageal reflux disease): Status: Acute Qualifiers: Esophagitis presence: esophagitis presence not specified Qualified Code(s): K21.9 - Gastro- esophageal reflux disease without esophagitis Plan: I am concerned this is suboptimally controlled today. This could be contributing to cough. The relationship between suboptimal control of GERD and cough was discussed at length with patient today. Referral to Dr. Lanier. For now continue with use of omeprazole as prescribed. Orders: Orders NIOX Today R05.9 - Cough, unspecified Chest without Contrast Today R05.9 - Cough, unspecified Self Mgmnt Educ Training Today G47.33 - Obstructive sleep apnea (adult) (pediatric) Referrals Gastroenterology K21.9 - Gastro-esophageal reflux disease without esophagitis Medications: New fluticasone furoate 200 mcg/actuation (Arnuity Ellipta) 1 inh inhalation Q24H 30 ea 5RF R05.9 - Cough, unspecified Plan Details Follow Up: 2 Months (LMR) HPI HPI Comments Details: This patient presents to the office today for follow-up to discuss recent testing. She has a history of obstructive sleep apnea and obesity. She is ambulatory and currently on room air. The patient reports that she is experiencing head and chest colds every 8 weeks. This last occurred 1 month (more content not included)... Normal [facility] Cardiovascular stress test r eportOrdered By: Carson Hobbs on 12-17-2024 Study report [facility] Work Phone: Echo Completeon 12-17-2024 Echo Complete [facility] [address] [place] [address] Echo Complete 12/17/24 0925 MR#: [id number] Acct: [id number] Name: JENAALEXANDRA M Rep #: [id number] : 1955 69 From: Carson Hobbs MD Attending Dr: Mehrdad Ruth NP-C Status: REG CLI Ordering Dr: Mehrdad Ruth RN CARDIOVASCULAR ICU RN CARDIOVASCULAR ICU-C Date: 12/17/24 Location: [facility] Sex: F C Admitted: Reason For Study Reason For Study: Dyspnea/SOB Procedure This was a 2D Doppler, Color Flow transthoracic echocardiogram. Myocardial strain analysis was performed in this exam to aid in the assessment of cardiac function. Exam performed in department. Left Ventricle Normal LV size. The left ventricular ejection fraction is 55 %. Stage 1 diastolic dysfunction. No regional wall motion abnormalities noted. Right Ventricle Normal RV size. Normal systolic function. Atria Normal left atrium. Normal right atrium. Mitral Valve Normal mitral valve. Tricuspid Valve Normal tricuspid valve. Mild tricuspid valve insufficiency. Pulmonary artery systolic pressure is 20 mmHg. Aortic Valve Trisinus/trileaflet aortic valve. Pulmonic Valve Normal pulmonic valve. Great Vessels Normal aortic root. The pulmonary artery is normal size. Normal inferior vena cava. Pericardium/Pleural No pericardial effusion. MMode/2D Measurements Calculations LVIDd: 4.2 cm IVSd: 1.2 cm Ao root diam: 3.2 cm LVIDs: 2.7 cm LVPWd: 1.1 cm RVDd: 3.8 cm FS: 36.4 % _ LAV(MOD-bp): 38.0 ml LVAd ap4: 25.4 cm2 SV(MOD-sp4): 40.5 ml LAV(MOD-bp) Indexed: 16.9 ml/m2 LVLd ap4: 7.1 cm SI(MOD-sp4): 18.0 ml/m2 LAV(MOD-sp2): 36.0 ml EDV(MOD-sp4): 75.7 ml LAV(MOD-sp4): 36.7 ml EDV(sp4-el): 76.9 ml LVAs ap4: 16.0 cm2 LVLs ap4: 6.1 cm ESV(MOD-sp4): 35.2 ml ESV(sp4-el): 35.5 ml EF(MOD-sp4): 53.5 % EF(sp4-el): 53.8 % _ SV(sp4-el): 41.4 ml LA A4 area: 16.4 cm2 LA dimension(2D): 4.1 cm _ RA A4 area: 13.3 cm2 TAPSE: 2.0 cm Time Measurements MV dec time: 0.28 sec Doppler Measurements Calculations MV E max neftali: 51.0 cm/sec Lat Peak E' Neftali: 10.5 cm/sec Med Peak E' Neftali: 5.7 cm/sec MV A max neftali: 69.1 cm/sec E/E' lat: 4.8 E/E' med: 8.9 MV E/A: 0.74 _ Ao V2 max: 95.0 cm/sec LV V1 max: 80.9 cm/sec MV dec slope: 183.8 cm/sec2 Ao max P.6 mmHg LV V1 max P.6 mmHg Ao V2 mean: 71.2 cm/sec LV V1 mean P.4 mmHg Ao mean P.2 mmHg LV V1 mean: 53.9 cm/sec Ao V2 VTI: 18.9 cm LV V1 VTI: 17.9 cm AV (velocity ratio): 0.95 _ PA V2 max: 72.7 cm/sec TR max neftali: 203.9 cm/sec TR max P.6 mmHg ECHO/Echo Complete Interpretation Summary Normal LV size. The left ventricular ejection fraction is 55 %. Stage 1 diastolic dysfunction. The global longitudinal strain is mildly abnormal. Structurally normal valves. Ordering Physician: Mehrdad Ruth Referring Physician: Leonora Davalos Performed By: Manju Ruth, ABBY, RVT 12/17/24 140 Date Carson Hobbs MD CC: RN CARDIOVASCULAR ICU-C Leonora Davalos; RN CARDIOVASCULAR ICU-C Mehrdad Ruth Date Dictated: 12/17/24924 Date Transcribed: 12/17/241406 Rnp: Signed Normal [facility] Echocardiogram study reportO rdered By: Carson Hobbs on 12-17-2024 Study report [facility] Work Phone: Stress Reporton 12-17-2024 Stress Report [facility] Cardiovascular Services [address] [place] [address] MR#: [id number] Acct: [id number] Name: ALEXANDRA BELLA Rep #: [id number] : 1955 69 From: Carson Hobbs MD Primary Care: VANESSA Gilliland Status: REG CLI Referring Dr: Mehrdad Ruth NP Sex: F C Stress Test Report Pharmacologic myocardial perfusion stress test. 69-year-old lady with a history of shortness of breath Resting EKG demonstrates sinus rhythm with a right bundle branch block with a rate of 83 bpm. Resting blood pressure is 168/110 mmHg. 0.4 mg of regadenoson was infused per usual protocol followed by rapid intravenous saline flush injection. Continuous EKG monitoring was performed. The maximum heart rate was 125 bpm which was 82% of max impacted heart rate the maximum workload was 1 metabolic equivalent. At rest there were no ST or T wave changes noted to suggest ischemia and at peak infusion nonspecific ST changes were noted which did not meet the criteria for ischemia. The patient did experience chest pressure during the infusion. The final blood pressure was 158/88 mmHg. Myocardial perfusion protocol. 14.9 mCi of technetium 99m sestamibi was injected at rest. 0.4 mg of regadenoson was infused per usual protocol. At peak infusion 44.7 mCi of technetium 99m sestamibi was injected stress images were obtained stress and rest images were reconstructed and compared in the short axis vertical long and horizontal long axis. Gated images were also obtained. Perfusion SPECT analysis: Review of the stress images demonstrate normal uptake of tracer noted in all areas of the myocardium. The resting images similar demonstrated normal uptake of tracer noted in all areas of the myocardium. No areas of reversibility are noted to suggest ischemia and no previous infarct is noted. Gated SPECT analysis: The gated ejection fraction is 63%. Conclusion: Normal pharmacologic myocardial perfusion stress test. Preserved ejection fraction. 12/17/241704 Date Carson Hobbs MD CC: VANESSA Davalos; VANESSA Ruth Date Dictated: 12/17/241702 Date Transcribed: 12/17/241702 Rnp: CO Signed Normal [facility] Chest PA and Lateralon 12-07 Chest PA and Lateral [facility] Imaging Services [address] [place] [address] [id number] Chest PA and Lateral MR#: [id number] Acct: [id number] Name: JENAALEXANDRA M Rep #: [id number] : 1955 F 69 From: Siddhartha Beaver DO PCP: VANESSA Gilliland Status: REG CLI Study: Chest PA and Lateral Date of Exam: 12/07/24 Exam# [id number] Ordering Dr: Sunita Montgomery PA PROCEDURE: CHEST PA AND LATERAL 12/07/2024 REASON FOR EXAM: COUGH AND CONGESTION TECHNIQUE: Frontal and lateral views of the chest. COMPARISON: Chest radiograph 09/02/2024 FINDINGS: Hardware: None Heart: Normal size Mediastinum: Normal contours Lungs: Clear. No effusions. No pneumothorax. Bones: Unremarkable RAD/Chest PA and Lateral IMPRESSION: No radiographic evidence of an acute cardiopulmonary process Reading Location: [facility] CC: VANESSA Davalos; MISTY Melton Rnp: Signed Normal [facility] ALP [Catalytic activity/Vol] Ordered By: Mehrdad Ruth on 11-13-2024 Serum or plasma alkaline phosphatase measurement 114 U/L High 35-104 [facility] ALT [Catalytic activity/Vol] Ordered By: Mehrdad Ruth on 11-13-2024 Serum or plasma alanine aminotransferase (ALT) measurement 78 U/L High <35 [facility] Absolute lymphocyte countOrd ered By: Mehrdad Ruth on 11-13-2024 Lymphocytes Auto (Unsp spec) [#/Vol] 2.59 10*3/uL 0.83-4.51 [facility] Absolute neutrophil countOrd ered By: Mehrdad Ruth on 11-13-2024 Neutrophils (Bld) [#/Vol] 4.9 10*3/uL 2.0-7.7 [facility] Absolute neutrophil count 4.9 X10^3/uL 2.0-7.7 [facility] Albumin [Mass/Vol]Ordered By : Mehrdad Ruth on 11-13-2024 Serum or plasma albumin measurement (mass/volume) 3.9 g/dL 3.4-4.8 [facility] Albumin/Globulin [Mass ratio ]Ordered By: Mehrdad Ruth on 11-13-2024 Serum or plasma albumin/globulin mass ratio 1.1 RATIO 0.9-2.4 [facility] Anion gap [Moles/Vol]Ordered By: Mehrdad Ruth on 11-13-2024 Anion gap in Serum or Plasma 12 5-15 [facility] Anion gap in Serum or Plasma Ordered By: Mehrdad Ruth on 11-13-2024 Anion gap [Moles/Vol] 12 mmol/L 5-15 [facility] Automated lymphocyte count a s percentage of total leukocytesOrdered By: Mehrdad Ruth on 11-13-2024 Lymphocytes/100 WBC Auto (Unsp spec) 31.6 % 19-41 [facility] BUN/creatinine ratioOrdered By: Mehrdad Ruth on 11-13-2024 Urea nitrogen/Creatinine [Mass ratio] 14.9 mg/mg 10- [facility] BUN/creatinine ratio 14.9 RATIO - [facility] Basophil percentageOrdered B y: Mehrdad Ruth on 11-13-2024 Basophils/100 WBC (Bld) 0.4 % 0-1 [facility] Basophil percentage 0.4 % 0-1 [facility] Bilirubin, totalOrdered By: Mehrdad Ruth on 11-13-2024 Bilirubin [Mass/Vol] 0.35 mg/dL 0.00-1.30 [facility] Bilirubin, total 0.35 mg/dL 0.00-1.30 [facility] CBC W/Diff, Automatedon Absolute Lymph 2.59 X10 3/uL Normal 0.83-4.51 [facility] Comment on above: Performed By: #### L 501.9520, L503.7505, L100.0100, L500.4050, L501.5200 ####[facility] [address] [place], [address] Absolute Neut 4.9 X10 3/uL Normal 2.0-7.7 [facility] Comment on above: Performed By: #### L 501.9520, L503.7505, L100.0100, L500.4050, L501.5200 ####[facility] [address] [place], [address] Basophils/100 WBC (Bld) 0.4 % Normal 0-1 [facility] Comment on above: Performed By: #### L 501.9520, L503.7505, L100.0100, L500.4050, L501.5200 ####[facility] [address] [place], [address] Eosinophils/100 WBC (Bld) 1.3 % Normal 0-5 [facility] Comment on above: Performed By: #### L 501.9520, L503.7505, L100.0100, L500.4050, L501.5200 ####[facility] [address] [place], [address] Erythrocyte distribution width (RBC) [Ratio] 13.8 % Normal 11.6-14.6 [facility] Comment on above: Performed By: #### L 501.9520, L503.7505, L100.0100, L500.4050, L501.5200 ####[facility] [address] [place], [address] Hematocrit (Bld) [Volume fraction] 42.6 % Normal 37-47 [facility] Comment on above: Performed By: #### L 501.9520, L503.7505, L100.0100, L500.4050, L501.5200 ####[facility] [address] [place], [address] Hemoglobin (Bld) [Mass/Vol] 13.7 g/dL Normal 12.0-15.0 [facility] Comment on above: Performed By: #### L 501.9520, L503.7505, L100.0100, L500.4050, L501.5200 ####[facility] [address] [place], [address] IG% 0.400 Normal 0.0-0.9 [facility] Comment on above: Result Comment: IG% - Immature Granulocytes (promyelocytes, myelocytes and metamyelocytes) > 1% indicates that a LEFT SHIFT is Present. Performed By: #### L 501.9520, L503.7505, L100.0100, L500.4050, L501.5200 ####[facility] [address] [place], [address] Lymphocytes/100 WBC (Bld) 31.6 % Normal 19-41 [facility] Comment on above: Performed By: #### L 501.9520, L503.7505, L100.0100, L500.4050, L501.5200 ####[facility] [address] [place], [address] MCH (RBC) [Entitic mass] 29.2 pg Normal 27.0-32.0 [facility] Comment on above: Performed By: #### L 501.9520, L503.7505, L100.0100, L500.4050, L501.5200 ####[facility] [address] [place], [address] MCHC (RBC) [Mass/Vol] 32.2 g/dL Normal 32-36 [facility] Comment on above: Performed By: #### L 501.9520, L503.7505, L100.0100, L500.4050, L501.5200 ####[facility] [address] [place], [address] MCV (RBC) [Entitic vol] 90.8 fL Normal 81-99 [facility] Comment on above: Performed By: #### L 501.9520, L503.7505, L100.0100, L500.4050, L501.5200 ####[facility] [address] [place], [address] Monocytes/100 WBC (Bld) 6.7 % Normal 0-10 [facility] Comment on above: Performed By: #### L 501.9520, L503.7505, L100.0100, L500.4050, L501.5200 ####[facility] [address] [place], [address] Neutrophils/100 WBC (Bld) 59.6 % Normal 47-70 [facility] Comment on above: Performed By: #### L 501.9520, L503.7505, L100.0100, L500.4050, L501.5200 ####[facility] [address] [place], [address] Nucleated RBC (Bld) [#/Vol] 0 10*3/uL Normal 0-5 [facility] Comment on above: Performed By: #### L 501.9520, L503.7505, L100.0100, L500.4050, L501.5200 ####[facility] [address] [place], [address] Platelet mean volume (Bld) [Entitic vol] 11.2 fL Normal 6.2-12.0 [facility] Comment on above: Performed By: #### L 501.9520, L503.7505, L100.0100, L500.4050, L501.5200 ####[facility] [address] [place], [address] Platelets (Bld) [#/Vol] 220 10*3/uL Normal 150-450 [facility] Comment on above: Performed By: #### L 501.9520, L503.7505, L100.0100, L500.4050, L501.5200 ####[facility] [address] [place], [address] RBC (Bld) [#/Vol] 4.69 10*6/uL Normal 4.2-5.4 [facility] Comment on above: Performed By: #### L 501.9520, L503.7505, L100.0100, L500.4050, L501.5200 ####[facility] [address] [place], [address] RDW SD 45.7 fl High 35.1-43.9 [facility] Comment on above: Performed By: #### L 501.9520, L503.7505, L100.0100, L500.4050, L501.5200 ####[facility] [address] [place], [address] WBC (Bld) [#/Vol] 8.2 10*3/uL Normal 4.4-11.0 [facility] Comment on above: Performed By: #### L 501.9520, L503.7505, L100.0100, L500.4050, L501.5200 ####[facility] [address] [place], [address] Calcium [Mass/Vol]Ordered By : Mehrdad Ruth on 11-13-2024 Serum or plasma calcium measurement (mass/volume) 10.0 mg/dL 7.6-11.0 [facility] Carbon dioxide, total [Moles /volume] in Central venous bloodOrdered By: Mehrdad Ruth on 11-13-2024 CO2 [Moles/Vol] 23.4 mmol/L 21.0-32.0 [facility] Carbon dioxide, total [Moles/volume] in Central venous blood 23.4 mmol/L 21.0-32.0 [facility] Cardiology Visit Reporton Cardiology Visit Report [facility] [address] [place] [address] OFFICE VISIT Date of Service: 11/13/24 MR#: [id number] Acct: [id number] Name: ALEXANDRA BELLA Chi Rep #: [id number] : 1955 Provider: VANESSA duran Age/Sex: 68/F Location: [facility] Status: Signed HPI HPI History of Present Illness Details: This is 68-year-old female who presents for a cardiovascular outpatient follow-up. She has a history of diastolic dysfunction, paroxysmal atrial fibrillation status post MICHAELA guided cardioversion at [facility] on 07/08/2019, DVT status post [place] filter, morbid obesity, former smoker, quit after 15 pack smoking history, and MARILIA with BiPAP. She also has a history of breast cancer with previous radiation therapy. She had a heart catheterization on 09/23/2019 for chest pressure, increased SOB, and syncope that showed an ejection fraction of 55% or greater and mild LAD disease. She acknowledges midsternal chest pressure. This occurs twice per week and last for approximately 10 minutes. This has improved with Lasix therapy. She denies palpitations. She acknowledges bilateral lower extremity edema with right worse than left. She acknowledges shortness of breath with activity. She denies shortness of breath at rest, orthopnea, cough, or PND. She acknowledges lightheadedness when standing too quickly. She denies dizziness, near-syncope, or syncope. She acknowledges fatigue and weakness. 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 Is patient in pain?: No Allergies infliximab (From Remicade) Allergy (Severe, Verified 11/13/24 10:26) Anaphylaxis oxymetazoline (From Afrin (oxymetazoline)) Allergy (Severe, Verified 11/13/24 10:26) CHEST PAIN Penicillins Allergy (Verified 11/13/24 10:26) Hives adhesive tape Adverse Reaction (Severe, Verified 11/13/24 10:26) / clarithromycin Adverse Reaction (Severe, Verified 11/13/24 10:26) crmps and diarrhea dulaglutide (From Trulicity) Adverse Reaction (Severe, Verified 11/13/24 10:26) Abd cramps/diarrhea latex Adverse Reaction (Severe, Verified 11/13/24 10:26) / spironolactone (From Aldactone) Adverse Reaction (Severe, Verified 11/13/24 10:26) headaches Medications ???Medication ???Instructions ???Recorded ???Confirmed ???Type tramadol 50 mg tablet 50 mg PO Q6H PRN Pain 08/23/1802/02 History celecoxib 200 mg capsule 200 mg PO 1200 08/05/19 11/13/24 H istory blood-glucose meter (FreeStyle #1 ea 01/06/20 09/02/24 Rx [place] Lite kit) lancing device with lancets kit #1 ea 08/13/20 09/02/24 Rx (OneTouch Delica Plus Lancing Device kit) compress.stocking,knee,r eg,lrg #2 ea 08/31/20 09/02/24 Rx golimumab 12.5 mg/mL intravenous See Rx Instructions .Route .COMPLE X 08/24/21 11/13/24 History solution (Simponi ARIA) FreeStyle Lite Strips (blood sugar #300 ea 12/08/21 09/02/24 Rx diagnostic) lancets 28 gauge (FreeStyle #120 ea 12/08/21 09/02/24 Rx Lancets) diphenoxylate-atropine 2.5 1 tab PO TID PRN diarrhea #30 tabs 09/26/22 11/13/24 Rx mg-0.025 mg tablet (Lomotil) albuterol sulfate 90 mcg/actuation 2 puff inhalation Q4H PRN 11/13/24 Rx aerosol inhaler (ProAir HFA) shortness of breath or wheezing #8.5 grams clobetasol 0.05 % topical ointment 1 applic topical QHS PRN lichen 08/28/23 11/13/24 Rx sclerosis #30 grams fluticasone propionate 50 2 spray intranasal DAILY #18.2 mL 08/28/23 11/13/24 Rx mcg/actuation nasal spray,suspension (Allergy Relief (fluticasone)) levothyroxine 200 mcg tablet 200 mcg PO DAILY 01/05/24 11/13/24 History (Synthroid) nystatin 100,000 unit/gram topical 1 applic topical BID PRN 4 11/13/24 History powder (Nystop) sucralfate 1 gram tablet (Carafate) 1 g PO QDAY PRN 01/05/24 History apixaban 5 mg tablet (Eliquis) 5 mg PO BID #180 tabs 04/22/2402/02 Rx flecainide 100 mg tablet 100 mg PO Q12H #180 tabs 04/22/24 11/13/24 Rx losartan 25 mg tablet 25 mg PO DAILY #90 tabs 04/22/24 0 11/13/24 Rx metoprolol tartrate 25 mg tablet 12.5 mg (1/2 x 25 mg) PO DAILY #45 04/22/24 11/13/24 Rx tabs potassium chloride 10 mEq 10 meq PO DAILY #90 caps 04/22/24 11/13/24 Rx capsule,extended release omeprazole 40 mg capsule,delayed 40 mg PO DAILY #90 caps 07/11/24 0 11/13/24 Rx release ergocalciferol (vitamin D2) 1,250 1,250 mcg PO QWEEK 11/13/2411/13 History mcg (50,000 unit) capsule furosemide 40 mg tablet 40 mg PO DAILY edema #90 tabs (more content not included)... Normal [facility] Chloride assayOrdered By: Hailee Ruth on 11-13-2024 Chloride [Moles/Vol] 104 mmol/L 98-108 [facility] Chloride assay 104 mmol/L 98-108 [facility] Comprehensive Metabolic Prof ilon 11-13-2024 Albumin [Mass/Vol] 3.9 g/dL Normal 3.4-4.8 [facility] Comment on above: Performed By: #### L 501.9520, L503.7505, L100.0100, L500.4050, L501.5200 ####[facility] [address] [place], [address] Albumin/Globulin [Mass ratio] 1.1 {ratio} Normal 0.9-2.4 [facility] Comment on above: Performed By: #### L 501.9520, L503.7505, L100.0100, L500.4050, L501.5200 ####[facility] [address] [place], [address] ALK PHOS 114 U/L High 35-104 [facility] Comment on above: Performed By: #### L 501.9520, L503.7505, L100.0100, L500.4050, L501.5200 ####[facility] [address] [place], [address] ALT [Catalytic activity/Vol] 78 U/L High <=34 [facility] Comment on above: Performed By: #### L 501.9520, L503.7505, L100.0100, L500.4050, L501.5200 ####[facility] [address] [place], [address] AST [Catalytic activity/Vol] 66 U/L High <=31 [facility] Comment on above: Result Comment: Hemo lysis present, Results??could be affected. ?? Performed By: #### L 501.9520, L503.7505, L100.0100, L500.4050, L501.5200 ####[facility] [address] [place], [address] Bilirubin [Mass/Vol] 0.35 mg/dL Normal 0.00-1.30 [facility] Comment on above: Performed By: #### L 501.9520, L503.7505, L100.0100, L500.4050, L501.5200 ####[facility] [address] [place], [address] BUN/CRE 14.9 RATIO Normal 10-20 [facility] Comment on above: Performed By: #### L 501.9520, L503.7505, L100.0100, L500.4050, L501.5200 ####[facility] [address] [place], [address] Calcium [Mass/Vol] 10.0 mg/dL Normal 7.6-11.0 [facility] Comment on above: Performed By: #### L 501.9520, L503.7505, L100.0100, L500.4050, L501.5200 ####[facility] [address] [place], [address] Chloride [Moles/Vol] 104 mmol/L Normal 98-108 [facility] Comment on above: Performed By: #### L 501.9520, L503.7505, L100.0100, L500.4050, L501.5200 ####[facility] [address] [place], [address] CO2 [Moles/Vol] 23.4 mmol/L Normal 21.0-32.0 [facility] Comment on above: Performed By: #### L 501.9520, L503.7505, L100.0100, L500.4050, L501.5200 ####[facility] [address] [place], [address] Creatinine [Mass/Vol] 0.77 mg/dL Normal 0.70-1.20 [facility] Comment on above: Performed By: #### L 501.9520, L503.7505, L100.0100, L500.4050, L501.5200 ####[facility] [address] [place], [address] GAP 12 Normal 5-15 [facility] Comment on above: Performed By: #### L 501.9520, L503.7505, L100.0100, L500.4050, L501.5200 ####[facility] [address] [place], [address] GFR/1.73 sq M.predicted among non-blacks MDRD (S/P/Bld) [Vol rate/Area] 84 mL/min/{1.73_m2} Normal >60 [facility] Comment on above: Result Comment: mL/m in/1.73m2 CKD-EPI Creatinine Equation (2020) Performed By: #### L 501.9520, L503.7505, L100.0100, L500.4050, L501.5200 ####[facility] [address] [place], [address] Globulin (S) [Mass/Vol] 3.6 g/dL Normal 2.2-4.2 [facility] Comment on above: Performed By: #### L 501.9520, L503.7505, L100.0100, L500.4050, L501.5200 ####[facility] [address] [place], [address] Glucose [Mass/Vol] 186 mg/dL High 70-99 [facility] Comment on above: Performed By: #### L 501.9520, L503.7505, L100.0100, L500.4050, L501.5200 ####[facility] [address] [place], [address] Potassium [Moles/Vol] 4.3 mmol/L Normal 3.3-5.1 [facility] Comment on above: Result Comment: Hemo lysis present, Results??could be affected. ?? Performed By: #### L 501.9520, L503.7505, L100.0100, L500.4050, L501.5200 ####[facility] [address] [place], [address] Sodium [Moles/Vol] 139 mmol/L Normal 133-145 [facility] Comment on above: Performed By: #### L 501.9520, L503.7505, L100.0100, L500.4050, L501.5200 ####[facility] [address] [place], [address] T PROT 7.5 g/dL Normal 5.9-8.4 [facility] Comment on above: Performed By: #### L 501.9520, L503.7505, L100.0100, L500.4050, L501.5200 ####[facility] [address] [place], [address] Urea nitrogen [Mass/Vol] 11 mg/dL Normal 4-19 [facility] [facility] Comment on above: Performed By: #### L 501.9520, L503.7505, L100.0100, L500.4050, L501.5200 ####[facility] [address] [place], [address] Creatinine [Mass/Vol]Ordered By: Mehrdad Ruth on 11-13-2024 Serum creatinine measurement (mass/volume) 0.77 mg/dL 0.70-1.20 [facility] Eosinophil percentageOrdered By: Mehrdad Ruth on 11-13-2024 Eosinophils/100 WBC (Bld) 1.3 % 0-5 [facility] Eosinophil percentage 1.3 % 0-5 [facility] Erythrocyte distribution wid th (RBC) [Ratio]Ordered By: Mehrdad Ruth on 11-13-2024 Erythrocyte distribution width ratio 13.8 % 11.6-14.6 [facility] Erythrocyte distribution width standard deviation 45.7 fl High 35.1-43.9 [facility] Erythrocyte distribution wid th ratioOrdered By: Mehrdad Ruth on 11-13-2024 Erythrocyte distribution width (RBC) [Ratio] 13.8 % 11.6-14.6 [facility] Erythrocyte distribution wid th standard deviationOrdered By: Mehrdad Ruth on 11-13-2024 Erythrocyte distribution width (RBC) [Entitic vol] 45.7 fL High 35.1-43.9 [facility] Erythrocyte distribution width (RBC) [Ratio] 45.7 fl High 35.1-43.9 [facility] GFR/1.73 sq M.predicted celine g non-blacks MDRD (S/P/Bld) [Vol rate/Area]Ordered By: Mehrdad Ruth on 11-13-2024 Estimated GFR (MDRD) Non-Af Amer 84 >60 [facility] Comment on above: mL/min/1.73m2 CKD-EP I Creatinine Equation (2020) Glomerular filtration rate (GFR) estimation/1.73 sq m using serum, plasma, or whole b 84 >60 [facility] Glomerular filtration rate ( GFR) estimation/1.73 sq m using serum, plasma, or whole bOrdered By: Mehrdad Ruth on 11-13-2024 GFR/1.73 sq M.predicted among non-blacks MDRD (S/P/Bld) [Vol rate/Area] 84 mL/min/{1.73_m2} >60 [facility] Glucose [Mass/Vol]Ordered By : Mehrdad Ruth on 11-13-2024 Serum glucose measurement (mass/volume) 186 mg/dL High 70-99 [facility] Hematocrit Auto (Bld) [Volum e fraction]Ordered By: Mehrdad Ruth on 03-05-2025 Hematocrit (Bld) [Volume fraction] 42.6 % 37-47 [facility] Automated blood hematocrit (percentage) 42.6 % - [facility] Hemoglobin measurementOrdere d By: Mehrdad Ruth on 11-13-2024 Hemoglobin (Bld) [Mass/Vol] 13.7 g/dL 12.0-15.0 [facility] Hemoglobin measurement 13.7 g/dL 12.0-15.0 [facility] Immature granulocytes/100 WB C Auto (Bld)Ordered By: Mehrdad Ruth on 11-13-2024 Immature granulocytes/100 WBC (Bld) 0.400 % 0.0-0.9 [facility] Comment on above: IG% - Immature Granu locytes (promyelocytes, myelocytes and metamyelocytes) > 1% indicates that a LEFT SHIFT is Present. Automated immature granulocyte percentage 0.400 % 0.0-0.9 [facility] L503.7505on 11-13-2024 Natriuretic peptide B (Bld) [Mass/Vol] 86 pg/mL Normal <=900 [facility] Comment on above: Result Comment: Hear t Failure Unlikely: < 300 pg/mL Heart Failure Likely < 50 Years: > 450 pg/mL 50-75 Years: > 900 pg/mL >75 Years: > 1800 pg/mL Performed By: #### L 501.9520, L503.7505, L100.0100, L500.4050, L501.5200 ####[facility] [id number] [place], [place], [id number] Laboratory - Chemistry and C hemistry - challengeOrdered By: Mehrdad Ruth on 11-13-2024 AST [Catalytic activity/Vol] 66 U/L High <32 [facility] Comment on above: Hemolysis present, R esults could be affected. Natriuretic peptide B (Bld) [Mass/Vol] 86 pg/mL <900 [facility] Comment on above: Heart Failure Unlike ly: < 300 pg/mLHeart Failure Likely< 50 Years: > 450 pg/mL50-75 Years: > 900 pg/mL>75 Years: > 1800 pg/mL Lymphocytes Auto (Unsp spec) [#/Vol]Ordered By: Mehrdad Ruth on 11-13-2024 Lymphocytes (Bld) [#/Vol] 2.59 10*3/uL 0.83-4.51 [facility] Absolute lymphocyte count 2.59 X10^3/uL 0.83-4.51 [facility] Lymphocytes/100 WBC Auto (Un sp spec)Ordered By: Mehrdad Ruth on 11-13-2024 Lymphocytes/100 WBC (Bld) 31.6 % [facility] Automated lymphocyte count as percentage of total leukocytes 31.6 % [facility] MCV (RBC) [Entitic vol]Order ed By: Mehrdad Ruth on 11-13-2024 MCV (mean corpuscular volume) determination 90.8 fL 81-99 [facility] MCV (mean corpuscular volume ) determinationOrdered By: Mehrdad Ruth on 11-13-2024 MCV (RBC) [Entitic vol] 90.8 fL 81-99 [facility] Magnesiumon 11-13-2024 Magnesium [Mass/Vol] 2.1 mg/dL Normal 1.5-2.2 [facility] Comment on above: Performed By: #### L 501.9520, L503.7505, L100.0100, L500.4050, L501.5200 ####[facility] [id number] [place], [place], [address] Magnesium (Unsp spec) [Mass/ Vol]Ordered By: Mehrdad Ruth on 11-13-2024 Magnesium [Mass/Vol] 2.1 mg/dL 1.5-2.2 [facility] Magnesium measurement (mass/volume) 2.1 mg/dL 1.5-2.2 [facility] Magnesium measurement (mass/ volume)Ordered By: Mehrdad Ruth on 11-13-2024 Magnesium (Unsp spec) [Mass/Vol] 2.1 mg/dL 1.5-2.2 [facility] Mean corpuscular hemoglobin (MCH) determinationOrdered By: Mehrdad Ruth on 11-13-2024 MCH (RBC) [Entitic mass] 29.2 pg 27.0-32.0 [facility] Mean corpuscular hemoglobin (MCH) determination 29.2 pg 27.0-32.0 [facility] Mean corpuscular hemoglobin concentration (MCHC) determinationOrdered By: Mehrdad Ruth on 11-13-2024 MCHC (RBC) [Mass/Vol] 32.2 g/dL 32-36 [facility] Mean corpuscular hemoglobin concentration (MCHC) determination 32.2 g/dL -36 [facility] Mean platelet volume determi nationOrdered By: Mehrdad Ruth on 11-13-2024 Platelet mean volume (Bld) [Entitic vol] 11.2 fL 6.2-12.0 [facility] Mean platelet volume determination 11.2 fl 6.2-12.0 [facility] Monocyte percentageOrdered B y: Mehrdad Ruth on 11-13-2024 Monocytes/100 WBC (Bld) 6.7 % 0-10 [facility] Monocyte percentage 6.7 % 0-10 [facility] Neutrophil percentageOrdered By: Mehrdad Ruth on 11-13-2024 Neutrophils/100 WBC (Bld) 59.6 % 47-70 [facility] Neutrophil percentage 59.6 % 47-70 [facility] No Panel InformationOrdered By: Mehrdad Ruth on 11-13-2024 66 U/L High <32 [facility] 86 pg/mL <900 [facility] Nucleated red blood cell per centageOrdered By: Mehrdad Ruth on 11-13-2024 Nucleated RBC/100 WBC (Bld) [Ratio] 0 % 0-5 [facility] Nucleated red blood cell percentage 0 % 0-5 [facility] Platelet countOrdered By: Hailee Ruth on 11-13-2024 Platelets (Bld) [#/Vol] 220 10*3/uL 150-450 [facility] Platelet count 220 K/mm3 150-450 [facility] Potassium (Unsp spec) [Mass/ Vol]Ordered By: Mehrdad Ruth on 11-13-2024 Potassium [Moles/Vol] 4.3 mmol/L 3.3-5.1 [facility] Comment on above: Hemolysis present, R esults could be affected. Potassium measurement (mass/volume) 4.3 mmol/L 3.3-5.1 [facility] Potassium measurement (mass/ volume)Ordered By: Mehrdad Ruth on 11-13-2024 Potassium (Unsp spec) [Mass/Vol] 4.3 mmol/L 3.3-5.1 [facility] RBC Auto (Bld) [#/Vol]Ordere d By: Mehrdad Ruth on 11-13-2024 RBC (Bld) [#/Vol] 4.69 10*6/uL 4.2-5.4 [facility] Automated blood erythrocyte count 4.69 M/mm3 4.2-5.4 [facility] Serum creatinine measurement (mass/volume)Ordered By: Mehrdad Ruth on 11-13-2024 Creatinine [Mass/Vol] 0.77 mg/dL 0.70-1.20 [facility] Serum globulin measurementOr dered By: Mehrdad Ruth on 11-13-2024 Globulin (S) [Mass/Vol] 3.6 g/dL 2.2-4.2 [facility] Serum globulin measurement 3.6 g/dL 2.2-4.2 [facility] Serum glucose measurement (m ass/volume)Ordered By: Mehrdad Ruth on 11-13-2024 Glucose [Mass/Vol] 186 mg/dL High 70-99 [facility] Serum or plasma alanine kim otransferase (ALT) measurementOrdered By: Mehrdad Ruth on 11-13-2024 ALT [Catalytic activity/Vol] 78 U/L High <35 [facility] Serum or plasma albumin shamir urement (mass/volume)Ordered By: Mehrdad Ruth on 11-13-2024 Albumin [Mass/Vol] 3.9 g/dL 3.4-4.8 [facility] Serum or plasma albumin/glob ulin mass ratioOrdered By: Mehrdad Ruth on 11-13-2024 Albumin/Globulin [Mass ratio] 1.1 {ratio} 0.9-2.4 [facility] Serum or plasma alkaline oren sphatase measurementOrdered By: Mehrdad Ruth on 11-13-2024 ALP [Catalytic activity/Vol] 114 U/L High 35-104 [facility] Serum or plasma calcium shamir urement (mass/volume)Ordered By: Mehrdad Ruth on 11-13-2024 Calcium [Mass/Vol] 10.0 mg/dL 7.6-11.0 [facility] Serum or plasma urea nitroge n measurement (mass/volume)Ordered By: Mehrdad Ruth on 11-13-2024 Urea nitrogen [Mass/Vol] 11 mg/dL 4-19 [facility] Sodium levelOrdered By: Mehrdad Ruth on 11-13-2024 Sodium [Moles/Vol] 139 mmol/L 133-145 [facility] Sodium level 139 mmol/L 133-145 [facility] TSH DL <= 0.005 mIU/L QnOrde red By: Mehrdad Ruth on 11-13-2024 Thyroid Stimulating Hormone (TSH) 2.240 uIU/mL 0.300-4.200 [facility] TSH Qn 2.240 uIU/mL 0.300-4.200 [facility] Serum or plasma thyroid stimulating hormone (TSH) measurement by high sensitivity met 2.240 uIU/mL 0.300-4.200 [facility] Thyroid Stim Hormone (TSH)on 11-13-2024 TSH 2.240 uIU/mL Normal 0.300-4.200 [facility] Comment on above: Performed By: #### L 501.9520, L503.7505, L100.0100, L500.4050, L501.5200 ####[facility] [id number] [place], [place], [id number] Total proteinOrdered By: Luther Ruth on 11-13-2024 Protein [Mass/Vol] 7.5 g/dL 5.9-8.4 [facility] Total protein 7.5 g/dL 5.9-8.4 [facility] Urea nitrogen [Mass/Vol]Orde red By: Mehrdad Ruth on 11-13-2024 Serum or plasma urea nitrogen measurement (mass/volume) 11 mg/dL 4-19 [facility] White blood cell (WBC) count Ordered By: Mehrdad Ruth on 11-13-2024 WBC (Bld) [#/Vol] 8.2 10*3/uL 4.4-11.0 [facility] White blood cell (WBC) count 8.2 K/mm3 4.4-11.0 [facility] ALBUMIN/CREATININE RATIO, UR INEon 11-12-2024 Albumin Unsp time DL <= 20 mg/L (U) [Mass/Time] <12.0 Normal [facility] Comment on above: Order Comment: Speci men Type: BLOOD SPECIMEN Ordering Facility: [facility] Address: [address] [place] [address] Performed By: #### 5 7021-8 #### [facility] CLIA [id number] [address] [place] [address] [place] Albumin/Creatinine (U) [Mass ratio] <13 Normal <30 [facility] Comment on above: Order Comment: Speci men Type: BLOOD SPECIMEN Ordering Facility: [facility] Address: [address] [place] [address] Result Comment: Adul t Male and Female Nephrotic Criteria: <30 mg/g is considered normal to mildly increased 30-300 mg/g is considered moderately increased >300 mg/g is considered severely increased KDIGO. (2013). KDIGO 2012 Clinical Practice Guideline for the Evaluation and Management of Chronic Kidney Disease. Official Journal of the International Society of Nephrology, 3(1), 1-150. Performed By: #### 5 7021-8 #### [facility] CLIA [id number] [address] [place] [address] [place] Creatinine (U) [Mass/Vol] 91.5 mg/dL Normal 42.2-237.9 [facility] Comment on above: Order Comment: Speci men Type: BLOOD SPECIMEN Ordering Facility: [facility] Address: [address] [place] [address] Performed By: #### 5 7021-8 #### [facility] CLIA [id number] [address] [place] [address] [place] Comprehensive metabolic 2000 panelon 11-12-2024 Albumin [Mass/Vol] 3.8 g/dL Low 3.9-4.9 [facility] Comment on above: Order Comment: Speci men Type: BLOOD SPECIMEN Ordering Facility: [facility] Address: [address] [place] [address] Performed By: #### 2 4323-8, 19721-3, 3016-3 #### [facility] CLIA [id number] [address] [place] [address] [place] ALP [Catalytic activity/Vol] 116 U/L Normal 34-123 [facility] Comment on above: Order Comment: Speci men Type: BLOOD SPECIMEN Ordering Facility: [facility] Address: [address] [place] [address] Performed By: #### 2 4323-8, 89786-1, 6-3 #### [facility] CLIA [id number] [address] [place] [address] [place] [facility] [place] ALT With P-5'-P [Catalytic activity/Vol] 61 U/L High 7-38 [facility] Comment on above: Order Comment: Speci men Type: BLOOD SPECIMEN Ordering Facility: [facility] Address: [address] [place], [place] [address] Performed By: #### 2 4323-8, 62057-2, 6-3 #### [facility] CLIA [id number] [address] [place] [address] [place] Anion gap [Moles/Vol] 10 mmol/L Normal 8-15 [facility] Comment on above: Order Comment: Speci men Type: BLOOD SPECIMEN Ordering Facility: [facility] Address: [address] [place], [place] [address] Performed By: #### 2 4323-8, 97139-7, 3015-3 #### [facility] CLIA [id number] [address] [place] [address] [facility] [place] AST With P-5'-P [Catalytic activity/Vol] 56 U/L High 13-35 [facility] Comment on above: Order Comment: Speci men Type: BLOOD SPECIMEN Ordering Facility: [facility] Address: [address] [place], [place] [address] Performed By: #### 2 4323-8, 86709-1, 6-3 #### [facility] CLIA [id number] [address] [place] [address] [place] Bilirubin [Mass/Vol] 0.5 mg/dL Normal 0.2-1.3 [facility] Comment on above: Order Comment: Speci men Type: BLOOD SPECIMEN Ordering Facility: [facility] Address: [address] [place], [place] [address] Performed By: #### 2 4323-8, 94963-3, 3016-3 #### [facility] CLIA [id number] [address] [place] [address] [place] Calcium [Mass/Vol] 9.6 mg/dL Normal 8.5-10.2 [facility] Comment on above: Order Comment: Speci men Type: BLOOD SPECIMEN Ordering Facility: [facility] Address: [address] [place], [place] [address] Performed By: #### 2 4323-8, 92919-2, 6-3 #### [facility] CLIA [id number] [address] [place] [address] [place] Chloride [Moles/Vol] 103 mmol/L Normal 98-107 [facility] Comment on above: Order Comment: Speci men Type: BLOOD SPECIMEN Ordering Facility: [facility] Address: [address] [place], [place] [address] Performed By: #### 2 4323-8, 93456-9, 3015-3 #### [facility] CLIA [id number] [address] [place] [address] [place] CO2 [Moles/Vol] 24 mmol/L Normal 22-30 [facility] Comment on above: Order Comment: Speci men Type: BLOOD SPECIMEN Ordering Facility: [facility] Address: [address] [place] [address] Performed By: #### 2 4323-8, 20484-9, 6-3 #### [facility] CLIA [id number] [address] [place] [address] [place] Creatinine [Mass/Vol] 0.64 mg/dL Normal 0.58-0.96 [facility] Comment on above: Order Comment: Speci men Type: BLOOD SPECIMEN Ordering Facility: [facility] Address: [address] [place] [address] Performed By: #### 2 4323-8, 94311-0, 6-3 #### [facility] CLIA [id number] [address] [place] [address] [place] Creatinine and Glomerular filtration rate.predicted panel (S/P/Bld) 96 mL/min/1.73m??? Normal >=60 [facility] Comment on above: Order Comment: Harry lunsford Type: BLOOD SPECIMEN Ordering Facility: [facility] Address: [address] [place] [address] Result Comment: Hortensia mated Glomerular Filtration Rate (eGFR) is calculated using the 2020 CKD-EPI creatinine equation. This equation utilizes serum creatinine, sex, and age as parameters. The creatinine assay has traceable calibration to isotope dilution-mass spectrometry. Refer to KDIGO guidelines for clinical interpretation. In patients with unstable renal function, e.g. those with acute kidney injury, the eGFR may not accurately reflect actual GFR. Performed By: #### 2 4323-8, 89743-9, 3016-3 #### [facility] CLIA [id number] [address] [place] [address] [place] Glucose [Mass/Vol] 151 mg/dL High 74-99 [facility] Comment on above: Order Comment: Harry lunsford Type: BLOOD SPECIMEN Ordering Facility: [facility] Address: [address] [place] [address] Result Comment: The [place] Diabetes Association (ADA) provides guidance for cutoff values for fasting glucose and random glucose. The ADA defines fasting as no caloric intake for at least 8 hours. Fasting plasma glucose results between 100 to 125 mg/dL indicate increased risk for diabetes (prediabetes). Fasting plasma glucose results greater than or equal to 126 mg/dL meet the criteria for diagnosis of diabetes. In the absence of unequivocal hyperglycemia, results should be confirmed by repeat testing. In a patient with classic symptoms of hyperglycemia or hyperglycemic crisis, random plasma glucose results greater than or equal to 200 mg/dL meet the criteria for diagnosis of diabetes. Reference: Standards of Medical Care in Diabetes 2016, [place] Diabetes Association. Diabetes Care. 2016.39(Suppl 1). Performed By: #### 2 4323-8, 08385-0, 3016-3 #### [facility] CLIA [id number] [address] [place] [address] [place] Potassium [Moles/Vol] 4.0 mmol/L Normal 3.7-5.1 [facility] Comment on above: Order Comment: Speci men Type: BLOOD SPECIMEN Ordering Facility: [facility] Address: [address] [place] [address] Performed By: #### 2 4323-8, 44941-7, 6-3 #### [facility] CLIA [id number] [address] [place] [address] [place] Protein [Mass/Vol] 7.4 g/dL Normal 6.3-8.0 [facility] Comment on above: Order Comment: Speci men Type: BLOOD SPECIMEN Ordering Facility: [facility] Address: [address] [place] [address] Performed By: #### 2 4323-8, 08578-5, 3015-3 #### [facility] CLIA [id number] [address] [place] [address] [place] Sodium [Moles/Vol] 137 mmol/L Normal 136-144 [facility] Comment on above: Order Comment: Speci men Type: BLOOD SPECIMEN Ordering Facility: [facility] Address: [address] [place] [address] Performed By: #### 2 4323-8, 55796-1, 3015-3 #### [facility] CLIA [id number] [address] [place] [address] [place] Urea nitrogen [Mass/Vol] 9 mg/dL Normal 7-21 [facility] Comment on above: Order Comment: Speci men Type: BLOOD SPECIMEN Ordering Facility: [facility] Address: [address] [place] [address] Performed By: #### 2 4323-8, 52533-3, 3015-3 #### [facility] CLIA [id number] [address] [place] [address] [place] HbA1c (Bld)on 11-12-2024 Average glucose Estimated from glycated hemoglobin (Bld) [Mass/Vol] 160 mg/dL Normal [facility] Comment on above: Order Comment: Speci men Type: BLOOD SPECIMEN Ordering Facility: [facility] Address: [address] [place] [address] Result Comment: eAG: (Estimated average glucose) is a calculated value from HgbA1c and is sales representative publications of the average blood glucose level in the last 2-3 month period. Performed By: #### 5 5454-3 #### [facility] CLIA [id number] [address] [place] [address] [place] HbA1c (Bld) [Mass fraction] 7.2 % High 4.3-5.6 [facility] Comment on above: Order Comment: [facility] Type: BLOOD SPECIMEN Ordering Facility: [facility] Address: [address] [place] [address] Result Comment: [place] Diabetes Association guidelines indicate that patients with HgbA1c in the range 5.7-6.4% are at increased risk for development of diabetes, and intervention by lifestyle modification may be beneficial. HgbA1c greater or equal to 6.5% is considered diagnostic of diabetes. Performed By: #### 5 5454-3 #### [facility] CLIA [id number] [address] [place] [address] [place] Lipid 1996 panelon 5 Cholesterol [Mass/Vol] 187 mg/dL Normal <200 [facility] Comment on above: Order Comment: Harry jonn Type: BLOOD SPECIMEN Ordering Facility: [facility] Address: [address] [place] [address] Result Comment: <200 mg/dL, Desirable 200-239 mg/dL, Borderline high >239 mg/dL, High Performed By: #### 2 4323-8, 44305-4, 3016-3 #### [facility] CLIA [id number] [address] [place] [address] [place] Cholesterol in HDL [Mass/Vol] 41 mg/dL Normal >39 [facility] Comment on above: Order Comment: Harry jonn Type: BLOOD SPECIMEN Ordering Facility: [facility] Address: [address] [place] [address] Result Comment: 40-5 9 mg/dL, Acceptable >59 mg/dL, High: Negative risk factor for coronary heart disease <40 mg/dL, Low: Positive risk factor for coronary heart disease Performed By: #### 2 4323-8, 43768-1, 3015-3 #### [facility] CLIA [id number] [address] [place] [address] [place] Cholesterol in LDL [Mass/Vol] 121 mg/dL High <100 [facility] Comment on above: Order Comment: Harry men Type: BLOOD SPECIMEN Ordering Facility: [facility] Address: [address] [place] [address] Result Comment: <100 mg/dL, Optimal 100-129 mg/dL, Near optimal/above optimal 130-159 mg/dL, Borderline high 160-189 mg/dL, High >189 mg/dL, Very high Secondary prevention optimal LDL Cholesterol levels are recommended to be < 70 mg/dL Performed By: #### 2 4323-8, 41185-5, 3 #### [facility] CLIA [id number] [address] [place] [address] [facility] Cholesterol in LDL/Cholesterol in HDL [Mass ratio] 2.95 {ratio} High <2.54 [facility] Comment on above: Order Comment: Harry lunsford Type: BLOOD SPECIMEN Ordering Facility: [facility] Address: [address] [place] [address] Result Comment: Refe rence: 1. National Cholesterol Education Program ATP III Guideline At-A-Glance Quick Desk Reference: National Heart, Lung, and Blood Pfeifer. National Institutes of Health. 2001: NIH Publication No. 01-3305. 2. An International Atherosclerosis Society position paper: global recommendations for the management of dyslipidemia: executive summary, Atherosclerosis. 2014: 232(2):410-413. Performed By: #### 2 4323-8, 19716-6, 3015-3 #### [facility] CLIA [id number] [address] [place] [address] [facility] Cholesterol in VLDL [Mass/Vol] 25 mg/dL Normal <30 [facility] Comment on above: Order Comment: Speci men Type: BLOOD SPECIMEN Ordering Facility: [facility] Address: [address] [place] [address] Performed By: #### 2 4323-8, 02658-5, 3015-3 #### [facility] CLIA [id number] [address] [place] [address] [facility] [place] Cholesterol non HDL [Mass/Vol] 146 mg/dL High <130 [facility] Comment on above: Order Comment: Speci men Type: BLOOD SPECIMEN Ordering Facility: [facility] Address: [address] [place] [address] Result Comment: <130 mg/dL, Optimal 130-159 mg/dL, Near optimal/above optimal 160-189 mg/dL, Borderline high 190-219 mg/dL, High >219 mg/dL, Very high Secondary prevention optimal non HDL Cholesterol levels are recommended to be <100 mg/dL Performed By: #### 2 4323-8, 52404-1, 3 #### [facility] CLIA [id number] [address] [place] [address] [facility] Cholesterol.total/Choles terol in HDL [Mass ratio] 4.56 {ratio} Normal <5.10 [facility] Comment on above: Order Comment: Speci men Type: BLOOD SPECIMEN Ordering Facility: [facility] Address: [address] [place] [address] Performed By: #### 2 4323-8, 77113-9, 3 #### [facility] CLIA [id number] [address] [place] [address] [facility] FASTING TIME 12 hrs Normal [facility] Comment on above: Order Comment: Speci men Type: BLOOD SPECIMEN Ordering Facility: [facility] Address: [address] [place] [address] Performed By: #### 2 4323-8, 17209-7, 3015-3 #### [facility] CLIA [id number] [address] [place] [address] [facility] [place] Triglyceride [Mass/Vol] 124 mg/dL Normal <150 [facility] Comment on above: Order Comment: Harry lunsford Type: BLOOD SPECIMEN Ordering Facility: [facility] Address: [address] [place] [address] Result Comment: <150 mg/dL, Normal 150-199 mg/dL, Borderline high 200-499 mg/dL, High >499 mg/dL, Very high Performed By: #### 2 4323-8, 35133-1, 3016-3 #### [facility] CLIA [id number] [address] [place] T4 Free SerPl-mCncon 025 Free T4 [Mass/Vol] 1.6 ng/dL Normal 0.9-1.7 [facility] Comment on above: Order Comment: Harry lunsford Type: BLOOD SPECIMEN Ordering Facility: [facility] Address: [address] [place] [address] Performed By: #### 5 7021-8 #### [facility] CLIA [id number] [address] [place] [address] OF [facility] TSH SerPl-aCncon 11-12-2024 TSH Qn 2.380 m[IU]/L Normal 0.270-4.200 [facility] Comment on above: Order Comment: Harry lunsford Type: BLOOD SPECIMEN Ordering Facility: [facility] Address: [address] [place] [address] Performed By: #### 2 4323-8, 02466-1, 3016-3 #### [facility] CLIA [id number] [address] [place] [address] OF [place] CNPNon 11-04-2024 CNPN Telephone ([facility]) -------- ALEXANDRA BELLA ([id number]) 1955 F Date Time Provider Department 11/04/24 ELICEO AMBRIZ ENDMED During your visit today, we recorded the following information about you: Corrie Hall 11/04/2024 10:47 AM Signed PT has had the flu with vomiting and diarrhea x 4 days. PT stopped taking her diabetes medication on evening due to symptoms. PT is requesting a return to discuss symptoms and medication use, call [phone]. Marissa Tim, RN 11/05/2024 4:20 PM Signed Answered patient's questions. Patient was not taking her glipizide because she was vomiting and having diarrhea. Patient stated her BS was 250 and she did take 1 pill today and it came down to 105. Patient stated she has not vomited today, she is staying hydrated as much as she can. This nurse stated as if she is feeling better tomorrow and can hold food down more she should go back to her normal regimen for her glipizide. This nurse verbalized the importance of staying hydrated. Patient verbalized understanding and all questions were answered. Eliceo Ambriz APRN.CNP 11/05/2024 4:36 PM Signed Noted and agree Thank you Allergies As of Date: 11/04/2024 Noted Allergy Reaction ADHESIVE TAPE 01/07/2002 Comments: rash AVELOX (MOXIFLOXACIN HCL) 02/16/2009 Comments: Heart race BIAXIN (CLARITHROMYCIN) 02/17/2009 4 - Hives 8 - GI Upset ERYC (ERYTHROMYCIN) 02/16/2009 7 - Swelling METFORMIN 05/25/2022 8 - GI Upset Comments: Throwing up, Diarrhea PENICILLINS 07/07/2003 QUINOLONES 07/12/2004 Comments: Avelox REMICADE (INFLIXIMAB) 10/21/2020 12 - Shortness of Breath SPIRONOLACTONE 05/14/2020 5 - Intolerance Comments: Headaches SUTURES 11/28/2023 14 - Other: See Comments Comments: Suture do not dissolve DEMEROL (MEPERIDINE (PF)) 03/14/2012 14 - Other: See Comments Comments: Arm swelled up locally and turned red. Date Reviewed: 09/10/2024 Reviewed by: Nesha Schrader MA - Fully Assessed Reason for Visit: Patient Question [6550] Prescriptions as of 11/05/2024 - SYNTHROID 200 mcg tablet Take one tablet Monday through Monday,and half a pill on Saturdays and none on Sundays. - glipiZIDE (GLUCOTROL) 5 mg tablet TAKE 1/2 (ONE-HALF) OF A TABLET BY MOUTH TWICE DAILY BEFORE MEALS - ONETOUCH ULTRA TEST test strip Use as directed to check glucose once daily. E11.9 - ONETOUCH ULTRASOFT LANCETS Use as directed to check glucose once daily.E11.9 - metoprolol tartrate, short acting, (LOPRESSOR) 25 mg tablet 1 tablet with food Orally Twice a day for 30 day(s) - sucralfate (CARAFATE) 1 gram tablet Dissolve 1 tablet into 1-2 tbsp water and drink as a slurry twice daily. Do not eat or drink for 30 mins after taking. - Blood-Glucose Meter (ONETOUCH ULTRA2 METER) monitoring kit Use to test blood sugar daily, DX: E11.9, NIDDM - omeprazole (PRILOSEC) 40 mg capsule TAKE 1 CAPSULE BY MOUTH ONCE DAILY - losartan (COZAAR) 25 mg tablet Take 0.5 tablets by mouth once daily. - flecainide (TAMBOCOR) 100 mg tablet Take 1 tablet by mouth every 12 hours. - apixaban (ELIQUIS) 5 mg tab(s) Take 1 tablet by mouth twice daily. - furosemide (LASIX) 20 mg tablet Take 2 tablets by mouth every other day. - potassium chloride (K-TAB) 10 mEq tablet Take 1 tablet by mouth once daily. - traMADol (ULTRAM) 50 mg tablet Take 1 tablet by mouth as directed. - albuterol HFA (PROVENTIL HFA, VENTOLIN HFA) 90 mcg/actuation inhaler as needed. - golimumab (SIMPONI ARIA INTRAVENOUS) Inject intravenously every 8 weeks. 2mg/kg (242mg) - CPAP - celecoxib (CELEBREX) 200 mg capsule Take 1 capsule by mouth once daily. - acetaminophen(TYLENOL ARTHRITIS 650 MG TAB) Take 2 tablets daily. Problem List As Of Date 11/04/2024 Noted Resolved History of left breast cancer [Z85.3] 07/12/2004 LUMP OR MASS IN BREAST [N63.0] 09/27/2004 DEEP VENOUS PHLEBITIS-LEG NEC [I80.299] Right knee injury [S89.91XA] 10/03/2012 Right wrist pain [M25.531] 10/03/2012 Tear of right meniscus as current injury [S83.2*10/03/2012 07/08/2019 Left-sided chest wall pain [R07.89] 07/17/2016 11/11/2020 Mass on back [R22.2] 08/14/2018 11/26/2020 MARILIA on CPAP [G47.33] 08/24/2018 Postoperative hypothyroidism [E89.0] 08/24/2018 Essential hypertension [I10] 08/24/2018 Mixed hyperlipidemia [E78.2] 08/24/2018 02/14/2022 Gastroesophageal reflux disease without esophag*08/24/2018 Rheumatoid arthritis (HCC) [M06.9] 08/24/2018 Chest pain [R07.9] 07/05/2019 11/11/2020 Dyspnea [R06.00] 07/06/2019 Atrial fibrillation (HCC) [I48.91] 07/08/2019 Chronic diastolic CHF (congestive heart failure*07/08/2019 Lipoma of torso [D17.1] 11/05/2020 Coronary artery disease involving [place]*11/11/2020 History of DVT (deep vein thrombosis) [Z86.718] 11/26/2020 History of colorectal cancer [Z85.048] 11/26/2020 CHF (congestive heart failure) (HCC) [ (more content not included)... Normal [facility] 36on 10-28-2024 36 Name of caller: Alexandra Lorenzo Relation to patient: patient Contact phone number: [phone] Appointment scheduled with: Dr. Michelle Appointment date & time: 02/24/25 Reason for visit (are you having any symptoms) : PT wants to establish coordinate and manage her diabetes and Heart medication. Transportation issues/ concerns: no Special accommodations? ( wheel chair, etc) : none Current medications: Pt. Will bring list to visit Any refills need: n/a Any chronic conditions the provider should be aware of: heart pt & diabetic . [facility] 10-21-2024 CNPN Telephone ([facility]) -------- ALEXANDRA BELLA ([id number]) 1955 F Date Time Provider Department 10/21/24 PB ELICEOINOCENCIO ROSEN During your visit today, we recorded the following information about you: Chanel Chambers 10/21/2024 4:35 PM Signed Patient calling stating that [facility] called her, left a message and told her they were unable to send her script. They did not say why. Patient only has enough for 5 days at this time. She did say that they told her she would need a prior auth. She has spoke to [facility] many times and they keep giving her the run around. She would like to be seen soon if possible. She is currently scheduled for 11/11/24 as a video but she would rather an in person appointment. I am not sure if the provider would be willing to offer the patient an new patient spot even though she is est. If a clinical person could please call her back on 10/22/24 she would greatly appreciate it. Please call [phone]. Patient also states she will prob need a short script sent to her local pharmacy so she is not without. She will use [facility] until the [facility] scripts can be worked out. Neema Berman MA 10/22/2024 11:03 AM Signed Called and spoke with patient and let her know insurance for the second time has denied the RX sent to [facility] for Synthroid. Insurance will only cover the Generic Levothyroxine. They will cover Brand Synthroid with a PA but already stated there is no medical necessity for this. She has agreed to pay out of pocket using [facility] and [facility] I did speak with patient about appointment and I am going to have PSS add patient to wait list. She is fine with keeping the 11/11/24 appointment. Send pended RX below. Thank you Neema Berman MA 10/22/2024 11:03 AM Signed PSS: Can you make sure patient is added to wait list and if she is not please add. Joy De La Garza 10/22/2024 11:07 AM Signed Patient is added to the wait list Allergies As of Date: 10/21/2024 Noted Allergy Reaction ADHESIVE TAPE 01/07/2002 Comments: rash AVELOX (MOXIFLOXACIN HCL) 02/16/2009 Comments: Heart race BIAXIN (CLARITHROMYCIN) 02/17/2009 4 - Hives 8 - GI Upset ERYC (ERYTHROMYCIN) 02/16/2009 7 - Swelling METFORMIN 05/25/2022 8 - GI Upset Comments: Throwing up, Diarrhea PENICILLINS 07/07/2003 QUINOLONES 07/12/2004 Comments: Avelox REMICADE (INFLIXIMAB) 10/21/2020 12 - Shortness of Breath SPIRONOLACTONE 05/14/2020 5 - Intolerance Comments: Headaches SUTURES 11/28/2023 14 - Other: See Comments Comments: Suture do not dissolve DEMEROL (MEPERIDINE (PF)) 03/14/2012 14 - Other: See Comments Comments: Arm swelled up locally and turned red. Date Reviewed: 09/10/2024 Reviewed by: Nesha Schrader MA - Fully Assessed Reason for Visit: Medication Problem [65] Appointment [186] Visit Diagnosis:Postoperative hypothyroidism [E89.0] Order(s):SYNTHROID 200 mcg tabletTake one tablet Monday through Monday,and half a pill on Saturdays and none on Sundays.Disp: 66 tabletRfl: 0 Prescriptions as of 10/22/2024 - SYNTHROID 200 mcg tablet Take one tablet Monday through Monday,and half a pill on Saturdays and none on Sundays. - glipiZIDE (GLUCOTROL) 5 mg tablet TAKE 1/2 (ONE-HALF) OF A TABLET BY MOUTH TWICE DAILY BEFORE MEALS - ONETOUCH ULTRA TEST test strip Use as directed to check glucose once daily. E11.9 - ONETOUCH ULTRASOFT LANCETS Use as directed to check glucose once daily.E11.9 - metoprolol tartrate, short acting, (LOPRESSOR) 25 mg tablet 1 tablet with food Orally Twice a day for 30 day(s) - sucralfate (CARAFATE) 1 gram tablet Dissolve 1 tablet into 1-2 tbsp water and drink as a slurry twice daily. Do not eat or drink for 30 mins after taking. - Blood-Glucose Meter (ONETOUCH ULTRA2 METER) monitoring kit Use to test blood sugar daily, DX: E11.9, NIDDM - omeprazole (PRILOSEC) 40 mg capsule TAKE 1 CAPSULE BY MOUTH ONCE DAILY - losartan (COZAAR) 25 mg tablet Take 0.5 tablets by mouth once daily. - flecainide (TAMBOCOR) 100 mg tablet Take 1 tablet by mouth every 12 hours. - apixaban (ELIQUIS) 5 mg tab(s) Take 1 tablet by mouth twice daily. - furosemide (LASIX) 20 mg tablet Take 2 tablets by mouth every other day. - potassium chloride (K-TAB) 10 mEq tablet Take 1 tablet by mouth once daily. - traMADol (ULTRAM) 50 mg tablet Take 1 tablet by mouth as directed. - albuterol HFA (PROVENTIL HFA, VENTOLIN HFA) 90 mcg/actuation inhaler as needed. - golimumab (SIMPONI ARIA INTRAVENOUS) Inject intravenously every 8 weeks. 2mg/kg (242mg) - CPAP - celecoxib (CELEBREX) 200 mg capsule Take 1 capsule by mouth once daily. - acetaminophen(TYLENOL ARTHRITIS 650 MG TAB) Take 2 tablets daily. Problem List As Of Date 10/21/2024 Noted Resolved History of left breast cancer [Z85.3] 07/12/2004 LUMP OR MASS IN (more content not included)... Normal [facility] Urine Cultureon 09-28-2024 [facility] Mixed Gram Positive Organisms [place] Count 11,000-25,000 MIXC Mixed contaminants. Submit a new specimen if indicated. Normal [facility] Comment on above: Performed By: #### M 100.2200 ####[facility] [address] [place], [address] ALP [Catalytic activity/Vol] Ordered By: Tonja Givens on 09-26-2024 Serum or plasma alkaline phosphatase measurement 117 U/L 45-117 [facility] ALT [Catalytic activity/Vol] Ordered By: Tonja Givens on 09-26-2024 Serum or plasma alanine aminotransferase (ALT) measurement 124 U/L High 13-56 [facility] Abdomen/Pelvis without Conto n 09-26-2024 Abdomen/Pelvis without Cont [facility] Imaging Services [address] [place], [place] [id number] Abdomen/Pelvis without Cont MR#: [id number] Acct: [id number] Name: ALEXANDRA BELLA Rep #: [id number] : 1955 F 68 From: Dhiraj Watts MD PCP: Leonora Davalos, RN CARDIOVASCULAR ICU-C Status: REG ER Study: Abdomen/Pelvis without Cont Date of Exam: 09/11 03/05 Exam# [id number] Ordering Dr: Tonja Givens DO [id number] EXAM: CT ABDOMEN AND PELVIS WITHOUT INTRAVENOUS CONTRAST CLINICAL INDICATION: right flank pain TECHNIQUE: Helically acquired images were obtained of the abdomen and pelvis without intravenous contrast. This CT exam was performed using one or more of the following dose reduction techniques: automated exposure control, adjustment of the mA and/or kV according to patient size, and/or use of iterative reconstruction technique. COMPARISON: 08/27/2022 FINDINGS: LOWER THORAX: Unremarkable. Lung bases are clear. No cardiomegaly. No significant pericardial effusion. ABDOMEN: LIVER: Unremarkable. Homogeneous. GALLBLADDER AND BILE DUCTS: The gallbladder is nonvisualized and may be surgically absent. No intra- or extrahepatic biliary ductal dilation. PANCREAS: Unremarkable. No focal cystic mass. SPLEEN: Unremarkable. Normal size without focal cystic or solid mass. ADRENALS: Unremarkable. No nodules. KIDNEYS AND URETERS: Unremarkable. Normal renal size and position. No hydronephrosis. STOMACH AND BOWEL: There is sigmoid diverticulosis with no evidence of diverticulitis. No stomach or bowel distention. PELVIS: APPENDIX: No evidence of acute appendicitis. BLADDER: Unremarkable. REPRODUCTIVE: Unremarkable as visualized. No mass. ABDOMEN and PELVIS: INTRAPERITONEAL SPACE: Unremarkable. No ascites or other fluid collection. No free air. BONES/JOINTS: Unremarkable. No suspicious lytic or blastic abnormality. SOFT TISSUES: Unremarkable. No discrete abdominal or pelvic wall hernia. VASCULATURE: There is an inferior vena cava filter in place. This is unchanged from the reference exam. Abdominal aorta is non-dilated. LYMPH NODES: Unremarkable. No enlarged lymph nodes. CT/Abdomen/Pelvis without Cont IMPRESSION: No acute findings in the abdomen or pelvis. Electronically Signed: Dhiraj Watts MD at 17:28 EST , CC: VANESSA Davalos; Dr. Tonja Givens DO Rnp: Signed Normal [facility] Absolute lymphocyte countOrd ered By: Tonja Givens on 09-26-2024 Lymphocytes Auto (Unsp spec) [#/Vol] 3.90 10*3/uL 0.83-4.51 [facility] Absolute neutrophil countOrd ered By: Tonja Givens on 09-26-2024 Neutrophils (Bld) [#/Vol] 4.4 10*3/uL 2.0-7.7 [facility] Absolute neutrophil count 4.4 X10^3/uL 2.0-7.7 [facility] Albumin [Mass/Vol]Ordered By : Tonja Givens on 09-26-2024 Serum or plasma albumin measurement (mass/volume) 3.4 g/dL 3.2-5.0 [facility] Albumin to globulin ratioOrd ered By: Tonja Givens on 09-26-2024 Albumin/Globulin [Mass ratio] 0.8 {ratio} Low 0.9-2.4 [facility] Albumin to globulin ratio 0.8 RATIO Low 0.9-2.4 [facility] Automated lymphocyte count a s percentage of total leukocytesOrdered By: Tonja Givens on 09-26-2024 Lymphocytes/100 WBC Auto (Unsp spec) 42.1 % High 19-41 [facility] Basophil percentageOrdered B y: Tonja Givens on 09-26-2024 Basophils/100 WBC (Bld) 0.5 % 0-1 [facility] Basophil percentage 0.5 % 0-1 [facility] Bilirubin Test strip Ql (U)O rdered By: Tonja Givens on 09-26-2024 Bilirubin Ql (U) Negative Negative [facility] Bilirubin, totalOrdered By: Tonja Givens on 09-26-2024 Bilirubin [Mass/Vol] 0.40 mg/dL 0.20-1.00 [facility] Comment on above: For patients on eltr ombopag therapy, use of Dimension [place] TBIL is not recommended. Bilirubin, total 0.40 mg/dL 0.20-1.00 [facility] Blood urea nitrogen (BUN)/cr eatinine ratioOrdered By: Tonja Givens on 09-26-2024 Urea nitrogen/Creatinine [Mass ratio] 18.6 mg/mg 06-30 [facility] Blood urea nitrogen (BUN)/creatinine ratio 18.6 RATIO 06-30 [facility] CBC W/Diff, Automatedon 09-11 Absolute Lymph 3.90 X10 3/uL Normal 0.83-4.51 [facility] Comment on above: Performed By: #### L 100.0100, L500.4050 ####[facility] [address] [place], [address] Absolute Neut 4.4 X10 3/uL Normal 2.0-7.7 [facility] Comment on above: Performed By: #### L 100.0100, L500.4050 ####[facility] [address] [place], [address] Basophils/100 WBC (Bld) 0.5 % Normal 0-1 [facility] Comment on above: Performed By: #### L 100.0100, L500.4050 ####[facility] [address] [place], [address] Eosinophils/100 WBC (Bld) 1.5 % Normal 0-5 [facility] Comment on above: Performed By: #### L 100.0100, L500.4050 ####[facility] [address] [place], [address] Erythrocyte distribution width (RBC) [Ratio] 13.6 % Normal 11.6-14.6 [facility] Comment on above: Performed By: #### L 100.0100, L500.4050 ####[facility] [address] [place], [address] Hematocrit (Bld) [Volume fraction] 43.7 % Normal 37-47 [facility] Comment on above: Performed By: #### L 100.0100, L500.4050 ####[facility] [address] [place], [address] Hemoglobin (Bld) [Mass/Vol] 14.2 g/dL Normal 12.0-15.0 [facility] Comment on above: Performed By: #### L 100.0100, L500.4050 ####[facility] [address] [place], [address] IG% 0.300 Normal 0.0-0.9 [facility] Comment on above: Result Comment: IG% - Immature Granulocytes (promyelocytes, myelocytes and metamyelocytes) > 1% indicates that a LEFT SHIFT is Present. Performed By: #### L 100.0100, L500.4050 ####[facility] [address] [place], [address] Lymphocytes/100 WBC (Bld) 42.1 % High 19-41 [facility] Comment on above: Performed By: #### L 100.0100, L500.4050 ####[facility] [address] [place], [address] MCH (RBC) [Entitic mass] 29.1 pg Normal 27.0-32.0 [facility] Comment on above: Performed By: #### L 100.0100, L500.4050 ####[facility] [address] [place], [address] MCHC (RBC) [Mass/Vol] 32.5 g/dL Normal 32-36 [facility] Comment on above: Performed By: #### L 100.0100, L500.4050 ####[facility] [address] [place], [address] MCV (RBC) [Entitic vol] 89.5 fL Normal 81-99 [facility] Comment on above: Performed By: #### L 100.0100, L500.4050 ####[facility] [address] [place], [address] Monocytes/100 WBC (Bld) 7.8 % Normal 0-10 [facility] Comment on above: Performed By: #### L 100.0100, L500.4050 ####[facility] [address] [place], [address] Neutrophils/100 WBC (Bld) 47.8 % Normal 47-70 [facility] Comment on above: Performed By: #### L 100.0100, L500.4050 ####[facility] [address] [place], [address] Nucleated RBC (Bld) [#/Vol] 0 10*3/uL Normal 0-5 [facility] Comment on above: Performed By: #### L 100.0100, L500.4050 ####[facility] [address] [place], [address] Platelet mean volume (Bld) [Entitic vol] 10.7 fL Normal 6.2-12.0 [facility] Comment on above: Performed By: #### L 100.0100, L500.4050 ####[facility] [address] [place], [address] Platelets (Bld) [#/Vol] 204 10*3/uL Normal 150-450 [facility] Comment on above: Performed By: #### L 100.0100, L500.4050 ####[facility] [address] [place], [address] RBC (Bld) [#/Vol] 4.88 10*6/uL Normal 4.2-5.4 [facility] Comment on above: Performed By: #### L 100.0100, L500.4050 ####[facility] [address] [place], [address] RDW SD 44.3 fl High 35.1-43.9 [facility] Comment on above: Performed By: #### L 100.0100, L500.4050 ####[facility] [address] [place], [address] WBC (Bld) [#/Vol] 9.3 10*3/uL Normal 4.4-11.0 [facility] Comment on above: Performed By: #### L 100.0100, L500.4050 ####[facility] [address] [place], [address] Calcium [Mass/Vol]Ordered By : Tonja Givens on 09-26-2024 Serum or plasma calcium measurement (mass/volume) 9.9 mg/dL 8.5-10.1 [facility] Carbon dioxide measurementOr dered By: Tonja Givens on 09-26-2024 CO2 [Moles/Vol] 24.0 mmol/L 21.0-32.0 [facility] Carbon dioxide measurement 24.0 mmol/L 21.0-32.0 [facility] Chloride measurementOrdered By: Tonja Givens on 09-26-2024 Chloride [Moles/Vol] 106 mmol/L 98-107 [facility] Chloride measurement 106 mmol/L 98-107 [facility] Clarity (U)Ordered By: Gideon Givens on 09-26-2024 Urine clarity Clear Clear [facility] Color (U)Ordered By: Tonja Givens on 09-26-2024 Urine color determination Yellow Yellow [facility] [facility]24 Albumin [Mass/Vol] 3.4 g/dL Normal 3.2-5.0 [facility] Comment on above: Performed By: #### L 100.0100, L500.4050 ####[facility] [address] [place], [address] Albumin/Globulin [Mass ratio] 0.8 {ratio} Low 0.9-2.4 [facility] Comment on above: Performed By: #### L 100.0100, L500.4050 ####[facility] [address] [place], [address] ALK P 117 U/L Normal 45-117 [facility] Comment on above: Performed By: #### L 100.0100, L500.4050 ####[facility] [address] [place], [address] ALT [Catalytic activity/Vol] 124 U/L High 13-56 [facility] Comment on above: Performed By: #### L 100.0100, L500.4050 ####[facility] [address] [place], [address] AST [Catalytic activity/Vol] 81 U/L High 15-37 [facility] Comment on above: Performed By: #### L 100.0100, L500.4050 ####[facility] [address] [place], [address] Bilirubin [Mass/Vol] 0.40 mg/dL Normal 0.20-1.00 [facility] Comment on above: Result Comment: For patients on eltrombopag therapy, use of Dimension [place] TBIL is not recommended. Performed By: #### L 100.0100, L500.4050 ####[facility] [address] [place], [address] BUN/CRE 18.6 RATIO Normal 10-20 [facility] Comment on above: Performed By: #### L 100.0100, L500.4050 ####[facility] [address] [place], [address] CA,Total 9.9 mg/dL Normal 8.5-10.1 [facility] Comment on above: Performed By: #### L 100.0100, L500.4050 ####[facility] [address] [place], [address] Chloride [Moles/Vol] 106 mmol/L Normal 98-107 [facility] Comment on above: Performed By: #### L 100.0100, L500.4050 ####[facility] [address] [place], [address] CO2 [Moles/Vol] 24.0 mmol/L Normal 21.0-32.0 [facility] Comment on above: Performed By: #### L 100.0100, L500.4050 ####[facility] [address] [place], [address] Creatinine [Mass/Vol] 0.81 mg/dL Normal 0.55-1.02 [facility] Comment on above: Result Comment: The validity of the calculated GFR GFRAA in patients over 70 years has not been determined. Clinical correlation is essential. Performed By: #### L 100.0100, L500.4050 ####[facility] [address] [place], [address] ECRCL 88.59 ml/min Normal [facility] Comment on above: Performed By: #### L 100.0100, L500.4050 ####[facility] [address] [place], [address] EST GFR - AA 91 mL/min Normal >60 [facility] Comment on above: Result Comment: Afri can [place] GFR Calc Performed By: #### L 100.0100, L500.4050 ####[facility] [address] [place], [address] GAP 7 Normal 5-15 [facility] Comment on above: Performed By: #### L 100.0100, L500.4050 ####[facility] [address] [place], [address] GFR/1.73 sq M.predicted among non-blacks MDRD (S/P/Bld) [Vol rate/Area] 75 mL/min/{1.73_m2} Normal >60 [facility] Comment on above: Result Comment: Non- GFR Calc Performed By: #### L 100.0100, L500.4050 ####[facility] [address] [place], [address] Globulin (S) [Mass/Vol] 4.1 g/dL Normal 2.2-4.2 [facility] Comment on above: Performed By: #### L 100.0100, L500.4050 ####[facility] [address] [place], [address] Glucose [Mass/Vol] 150 mg/dL High 74-106 [facility] Comment on above: Result Comment: Fast ing Glucose result greater than or equal to 126 mg/dL suggests DIABETES MELLITUS per A.D.A. criteria. Performed By: #### L 100.0100, L500.4050 ####[facility] [address] [place], [address] Potassium [Moles/Vol] 4.1 mmol/L Normal 3.5-5.1 [facility] Comment on above: Performed By: #### L 100.0100, L500.4050 ####[facility] [address] [place], [address] Sodium [Moles/Vol] 137 mmol/L Normal 136-145 [facility] Comment on above: Performed By: #### L 100.0100, L500.4050 ####[facility] [address] [place], [address] T PROT 7.5 g/dL Normal 6.4-8.2 [facility] Comment on above: Performed By: #### L 100.0100, L500.4050 ####[facility] [address] [place], [address] Urea nitrogen [Mass/Vol] 15 mg/dL Normal 7-18 [facility] Comment on above: Performed By: #### L 100.0100, L500.4050 ####[facility] [address] [place], [address] Creatinine [Mass/Vol]Ordered By: Tonja Givens on 09-26-2024 Serum or plasma creatinine measurement (mass/volume) 0.81 mg/dL 0.55-1.02 [facility] Emergency Department Summary on 09-26-2024 Emergency Department Summary [facility] Medical Records Department [address] [place] [address] Emergency Department Summary 09/26/24 MR#: [id number] Acct: [id number] Name: ALEXANDRA BELLA Rep #: [id number] : 1955 68 From: Tonja Givens DO PCP: VANESSA Gilliland Status:DEP ER Location: ED HPI History of Present Illness Chief Complaint: Back Informant: patient Narrative Narrative: 68-year-old female presenting with 1 week of right flank pain. Patient states that she woke from sleep 1 day feeling like maybe she twisted a muscle but it is waxed and waned for the past week. She notes that she it wraps lower into the anterior right pelvis. She notes diarrhea for several days. No fever no vomiting. She denies any rashes. She notes that is particularly worse when she is standing doing dishes and goes to move. She notes a history of a cholecystectomy. She has had prior kidney stones as well as diverticulitis. She does take apixaban. She denies any recent trauma or falls. She denies any change in urination such as the color or smell or frequency. She denies any radicular symptoms. [facility] Medical History Bilateral acute otitis media Type 2 diabetes mellitus with hyperglycemia Shingles Right bundle branch block (RBBB) Nonobstructive atherosclerosis of coronary artery Chronic diastolic (congestive) heart failure Bronchitis 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 Lichen sclerosus Lichen sclerosus Chronic sinusitis Yeast infection Hepatic fibrosis, stage 3 History of cardioversion Paroxysmal atrial fibrillation Pure hypercholesterolemia [place] filter in place Rectal cancer PVD (peripheral vascular disease) Varicosities of leg Pneumonia Diverticulitis Chronic UTI (urinary tract infection) Lipoma Diarrhea Soft tissue mass Peptic ulcer disease Other chest pain UTI (urinary tract infection) Bronchitis Hypersomnia Diastolic dysfunction Malaise Body mass index (BMI) 35 or more Obesity Sleep apnea Unstable angina Hypothyroidism History of recurrent deep vein thrombosis (DVT) History of cervical cancer History of colon cancer History of breast cancer Rheumatoid arthritis Home Medications ???Medication ???Instructions ???Recorded ???Last Taken ???Type tramadol 50 mg tablet 50 mg PO Q6H PRN Pain 08/23/18 Unknown History celecoxib 200 mg capsule 200 mg PO 1200 08/05/19 Unknown History blood-glucose meter (FreeStyle #1 ea 01/06/20 Unknown Rx [place] Lite kit) lancing device with lancets kit #1 ea 08/13/20 Unknown Rx (Edifilm Deltok tok tok Plus Lancing Device kit) compress.stocking,knee,r eg,lrg #2 ea 08/31/20 Unknown Rx golimumab 12.5 mg/mL intravenous See Rx Instructions .Route .COMPLEX 08/24/21 Unknown History solution (Simponi ARIA) FreeStyle Lite Strips (blood sugar #300 ea 12/08/21 Unknown Rx diagnostic) lancets 28 gauge (FreeStyle #120 ea 12/08/21 Unknown Rx Lancets) diphenoxylate-atropine 2.5 1 tab PO TID PRN diarrhea #30 tabs 09/26/22 Unknown Rx mg-0.025 mg tablet (Lomotil) albuterol sulfate 90 mcg/actuation 2 puff inhalation Q4H PRN 02/01/23 Unknown Rx aerosol inhaler (ProAir HFA) shortness of breath or wheezing #8.5 grams cholecalciferol (vitamin D3) 1,250 1,250 mcg PO QWEEK 08/28/23 Unknown History mcg (50,000 unit) capsule clobetasol 0.05 % topical ointment 1 applic topical QHS PRN lichen 08/28/23 Unknown Rx sclerosis #30 grams fluticasone propionate 50 2 spray intranasal DAILY #18.2 mL 08/28/23 Unknown Rx mcg/actuation nasal spray,suspension (Allergy Relief (fluticasone)) glipizide 5 mg tablet 2.5 mg PO BID 01/05/24 Unknown History levothyroxine 200 mcg tablet 200 mcg PO DAILY 01/05/24 Unknown History (Synthroid) nystatin 100,000 unit/gram topical 1 applic topical BID PRN 01/05/24 Unknown History powder (Nystop) sucralfate 1 gram tablet (Carafate) 1 g PO QDAY PRN 01/05/24 Unknown History apixaban 5 mg tablet (Eliquis) 5 mg PO BID #180 tabs 04/22/24 Unknown Rx flecainide 100 mg tablet 100 mg PO Q12H #180 tabs 04/22/24 Unknown Rx furosemide 20 mg tablet 40 mg (2 x 20 mg) PO Q OTHER DAY 04/22/24 Unknown Rx PRN edema #45 tabs losartan 25 mg tablet 25 mg PO DAILY #90 tabs 04/22/24 Unknown Rx metoprolol tartrate 25 mg tablet 12.5 mg (1/2 x 25 mg) PO DAILY #45 04/22/24 Unknown Rx tabs potassium chloride 10 mEq 10 meq PO DAILY #90 caps 04/22/24 Unknown Rx capsule,extended release loratadine 10 mg tablet (Claritin) 10 mg PO QDAY #90 tabs 06/10/24 Unknown Rx omeprazole 40 mg capsule,delayed 40 mg PO DAILY #90 caps 07/11/24 Unknown Rx release Allergy/AdvReac Type Severity Reaction Status Date / Time infliximab (From Remicade) Allergy Severe Anaphylaxis Verified 09/26/24 14:40 oxymetazoline ( (more content not included)... Normal [facility] Eosinophil percentageOrdered By: Tonja Givens on 09-26-2024 Eosinophils/100 WBC (Bld) 1.5 % 0-5 [facility] Eosinophil percentage 1.5 % 0-5 [facility] Epithelial cells.squamous LM Ql (Urine sed)Ordered By: Tonja Givens on 09-26-2024 Epithelial cells.squamous LM.HPF (Urine sed) [#/Area] 0 /[HPF] 5-10 [facility] Erythrocyte distribution wid th (RBC) [Ratio]Ordered By: Tonja Givnes on 09-26-2024 Erythrocyte distribution width ratio 13.6 % 11.6-14.6 [facility] Erythrocyte distribution width standard deviation 44.3 fl High 35.1-43.9 [facility] Erythrocyte distribution wid th ratioOrdered By: Tonja Givens on 09-26-2024 Erythrocyte distribution width (RBC) [Ratio] 13.6 % 11.6-14.6 [facility] Erythrocyte distribution wid th standard deviationOrdered By: Tonja Givens on 09-26-2024 Erythrocyte distribution width (RBC) [Entitic vol] 44.3 fL High 35.1-43.9 [facility] Erythrocyte distribution width (RBC) [Ratio] 44.3 fl High 35.1-43.9 [facility] Estimated glomerular filtrat ion rate (GFR) AmericanOrdered By: Tonja Givens on 09-26-2024 Estimated GFR (MDRD) Amer 91 mL/min >60 [facility] Comment on above: GFR Calc Estimated glomerular filtration rate (GFR) 91 mL/min >60 [facility] Estimation of creatinine galina aranceOrdered By: Tonja Givens on 09-26-2024 Estimated Creatinine Clearance Calc 88.59 ml/min [facility] Estimation of creatinine clearance 88.59 ml/min [facility] Glomerular filtration rate ( GFR) estimationOrdered By: Tonaj Givens on 09-26-2024 Estimated GFR (MDRD) Non-Af Amer 75 mL/min >60 [facility] Comment on above: Non- GFR Calc GFR/1.73 sq M.predicted among non-blacks MDRD (S/P/Bld) [Vol rate/Area] 75 mL/min/{1.73_m2} >60 [facility] Glomerular filtration rate (GFR) estimation 75 mL/min >60 [facility] Glucose Ql (U)Ordered By: Arthur Givens on 09-26-2024 Urine Glucose (UA) Normal mg/dl Normal [facility] Glucose measurementOrdered B y: Tonja Givens on 09-26-2024 Glucose [Mass/Vol] 150 mg/dL High 74-106 [facility] Comment on above: Fasting Glucose resu lt greater than or equal to 126 mg/dL suggests DIABETES MELLITUS per A.D.A. criteria. Glucose measurement 150 mg/dL High 74-106 [facility] Hematocrit Auto (Bld) [Volum e fraction]Ordered By: Tonja Givens on 09-26-2024 Hematocrit (Bld) [Volume fraction] 43.7 % 37-47 [facility] Automated blood hematocrit (percentage) 43.7 % 37-47 [facility] Hemoglobin measurementOrdere d By: Tonja Givens on 09-26-2024 Hemoglobin (Bld) [Mass/Vol] 14.2 g/dL 12.0-15.0 [facility] Hemoglobin measurement 14.2 g/dL 12.0-15.0 [facility] Hyaline casts LM.LPF (Urine sed) [#/Area]Ordered By: Tonja Givens on 09-26-2024 Hyaline casts (Urine sed) [#/Area] 0 /[LPF] 0-5 [facility] Hyaline casts LM Ql (Urine sed) 0-5 SEEN /lpf 0-5 [facility] Urine sediment hyaline cast count by microscopy (number/low power field) 0-5 SEEN /lpf 0-5 [facility] Immature granulocytes/100 WB C Auto (Bld)Ordered By: Tonja Givens on 09-26-2024 Immature granulocytes/100 WBC (Bld) 0.300 % 0.0-0.9 [facility] Comment on above: IG% - Immature Granu locytes (promyelocytes, myelocytes and metamyelocytes) > 1% indicates that a LEFT SHIFT is Present. Automated immature granulocyte percentage 0.300 % 0.0-0.9 [facility] Ketones Test strip Ql (U)Ord ered By: Tonja Givens on 09-26-2024 Ketones Ql (U) Negative Negative [facility] Laboratory - Chemistry and C hemistry - challengeOrdered By: Tonja Givens on 09-26-2024 AST [Catalytic activity/Vol] 81 U/L High 15-37 [facility] Leukocyte esterase Test stri p Ql (U)Ordered By: Tonja Givens on 09-26-2024 Urine leukocyte esterase detection by dipstick 25 /ul High Negative [facility] Lymphocytes Auto (Unsp spec) [#/Vol]Ordered By: Tonja Givens on 09-26-2024 Lymphocytes (Bld) [#/Vol] 3.90 10*3/uL 0.83-4.51 [facility] Absolute lymphocyte count 3.90 X10^3/uL 0.83-4.51 [facility] Lymphocytes/100 WBC Auto (Un sp spec)Ordered By: Tonja Givens on 09-26-2024 Lymphocytes/100 WBC (Bld) 42.1 % High 19-41 [facility] Automated lymphocyte count as percentage of total leukocytes 42.1 % High 19-41 [facility] MCV (RBC) [Entitic vol]Order ed By: Tonja Givens on 09-26-2024 MCV (mean corpuscular volume) determination 89.5 fL 81-99 [facility] MCV (mean corpuscular volume ) determinationOrdered By: Tonja Givens on 09-26-2024 MCV (RBC) [Entitic vol] 89.5 fL 81-99 [facility] Mean corpuscular hemoglobin (MCH) determinationOrdered By: Tonja Givens on 09-26-2024 MCH (RBC) [Entitic mass] 29.1 pg 27.0-32.0 [facility] Mean corpuscular hemoglobin (MCH) determination 29.1 pg 27.0-32.0 [facility] Mean corpuscular hemoglobin concentration (MCHC) determinationOrdered By: Tonja Givens on 09-26-2024 MCHC (RBC) [Mass/Vol] 32.5 g/dL 32-36 [facility] Mean corpuscular hemoglobin concentration (MCHC) determination 32.5 g/dL 32-36 [facility] Mean platelet volume determi nationOrdered By: Tonja Givens on 09-26-2024 Platelet mean volume (Bld) [Entitic vol] 10.7 fL 6.2-12.0 [facility] Mean platelet volume determination 10.7 fl 6.2-12.0 [facility] Microscopic analysis of urin e for red blood cells (RBC)Ordered By: Tonja Givens on 09-26-2024 Urine RBC 0-5 SEEN /hpf 0-5 [facility] Microscopic analysis of urine for red blood cells (RBC) 0-5 SEEN /hpf 5-10 [facility] Monocyte percentageOrdered B y: Tonja Givens on 09-26-2024 Monocytes/100 WBC (Bld) 7.8 % 0-10 [facility] Monocyte percentage 7.8 % 0-10 [facility] Mucus LM Ql (Urine sed)Order ed By: Tonja Givens on 09-26-2024 Mucus Ql (Urine sed) 1+ /hpf [facility] Neutrophil percentageOrdered By: Tonja Givens on 09-26-2024 Neutrophils/100 WBC (Bld) 47.8 % 47-70 [facility] Neutrophil percentage 47.8 % 47-70 [facility] Nitrite Test strip Ql (U)Ord ered By: Tonja Givens on 09-26-2024 Nitrite Ql (U) Negative Negative [facility] No Panel InformationOrdered By: Tonja Givens on 09-26-2024 81 U/L High 15-37 [facility] Nucleated red blood cell per centageOrdered By: Tonja Givens on 09-26-2024 Nucleated RBC/100 WBC (Bld) [Ratio] 0 % 0-5 [facility] Nucleated red blood cell percentage 0 % 0-5 [facility] Platelet countOrdered By: Arthur Givens on 09-26-2024 Platelets (Bld) [#/Vol] 204 10*3/uL 150-450 [facility] Platelet count 204 K/mm3 150-450 [facility] Potassium measurementOrdered By: Tonja Givens on 09-26-2024 Potassium [Moles/Vol] 4.1 mmol/L 3.5-5.1 [facility] Potassium measurement 4.1 mmol/L 3.5-5.1 [facility] Protein Test strip Ql (U)Ord ered By: Tonja Givens on 09-26-2024 Protein Ql (U) 15 mg/dl High Negative [facility] Urine protein assay by test strip, semi-quantitative 15 mg/dl High Negative [facility] RBC Auto (Bld) [#/Vol]Ordere d By: Tonja Givens on 09-26-2024 RBC (Bld) [#/Vol] 4.88 10*6/uL 4.2-5.4 [facility] Automated blood erythrocyte count 4.88 M/mm3 4.2-5.4 [facility] Serum anion gap measurementO rdered By: Tonja Givens on 09-26-2024 Anion gap [Moles/Vol] 7 mmol/L 5-15 [facility] Serum anion gap measurement 7 5-15 [facility] Serum globulin measurementOr dered By: Tonja Givens on 09-26-2024 Globulin (S) [Mass/Vol] 4.1 g/dL 2.2-4.2 [facility] Serum globulin measurement 4.1 g/dL 2.2-4.2 [facility] Serum or plasma alanine kim otransferase (ALT) measurementOrdered By: Tonja Givens on 09-26-2024 ALT [Catalytic activity/Vol] 124 U/L High 13-56 [facility] Serum or plasma albumin shamir urement (mass/volume)Ordered By: Tonja Givens on 09-26-2024 Albumin [Mass/Vol] 3.4 g/dL 3.2-5.0 [facility] Serum or plasma alkaline oren sphatase measurementOrdered By: Tonja Givens on 09-26-2024 ALP [Catalytic activity/Vol] 117 U/L 45-117 [facility] Serum or plasma calcium shamir urement (mass/volume)Ordered By: Tonja Givens on 09-26-2024 Calcium [Mass/Vol] 9.9 mg/dL 8.5-10.1 [facility] Serum or plasma creatinine m easurement (mass/volume)Ordered By: Tonja Givens on 09-26-2024 Creatinine [Mass/Vol] 0.81 mg/dL 0.55-1.02 [facility] Comment on above: The validity of the calculated GFR & GFRAA in patients over 70 years has not been determined. Clinical correlation is essential. Serum or plasma urea nitroge n measurement (mass/volume)Ordered By: Tonja Givens on 09-26-2024 Urea nitrogen [Mass/Vol] 15 mg/dL 7-18 [facility] Sodium levelOrdered By: Jonathon Givens on 09-26-2024 Sodium [Moles/Vol] 137 mmol/L 136-145 [facility] Sodium level 137 mmol/L 136-145 [facility] Specific gravity (U) [Rel de nsity]Ordered By: Tonja Givens on 09-26-2024 Urine specific gravity measurement 1.020 1.002-1.030 [facility] Squamous epithelial cells de tection in urine sediment by light microscopyOrdered By: Tonja Givens on 09-26-2024 Epithelial cells.squamous LM Ql (Urine sed) 0-5 SEEN /hpf 5-10 [facility] Total proteinOrdered By: Tu Givens on 09-26-2024 Protein [Mass/Vol] 7.5 g/dL 6.4-8.2 [facility] Total protein 7.5 g/dL 6.4-8.2 [facility] Urea nitrogen [Mass/Vol]Orde red By: Tonja Givens on 09-26-2024 Serum or plasma urea nitrogen measurement (mass/volume) 15 mg/dL -18 [facility] Urinalysis, Completeon 09-26 CAST,HYALINE 0-5 SEEN Normal 0-5 [facility] Comment on above: Order Comment: CLEAN CATCH Performed By: #### L 400.0001 ####[facility] [address] [place], [address] RBC 0-5 SEEN Normal 0-5 [facility] Comment on above: Order Comment: CLEAN CATCH Performed By: #### L 400.0001 ####[facility] [address] [place], [address] WBC 5-10 SEEN Normal 0-5 [facility] Comment on above: Order Comment: CLEAN CATCH Performed By: #### L 400.0001 ####[facility] [address] [place], [address] BACTERIA 1+ /hpf Normal None Seen [facility] Comment on above: Order Comment: CLEAN CATCH Performed By: #### L 400.0001 ####[facility] [address] [place], [address] EPI,SQUAMOUS 0-5 SEEN Normal 5-10 [facility] Comment on above: Order Comment: CLEAN CATCH Performed By: #### L 400.0001 ####[facility] [address] [place], [address] Mucus Ql (Urine sed) 1+ /hpf Normal [facility] Comment on above: Order Comment: CLEAN CATCH Performed By: #### L 400.0001 ####[facility] [address] [place], [address] Urine blood detectionOrdered By: Tonja Givens on 09-26-2024 Urine Occult Blood Negative Negative [facility] Urine clarityOrdered By: Tu Givens on 09-26-2024 Clarity (U) Clear Clear [facility] Urine color determinationOrd ered By: Tonja Givens on 09-26-2024 Color (U) Yellow Yellow [facility] Urine cultureOrdered By: Tu Givens on 09-26-2024 Bacteria identified Cx Nom (U) Positive Abnormal [facility] Urine culture Positive Abnormal [facility] Urine glucose detectionOrder ed By: Tonja Givens on 09-26-2024 Glucose Ql (U) Normal mg/dl Normal [facility] Urine glucose detection Normal mg/dl Normal [facility] Urine leukocyte esterase det ection by dipstickOrdered By: Tonja Givens on 09-26-2024 Leukocyte esterase Test strip Ql (U) 25 /ul High Negative [facility] Urine pHOrdered By: Tonja lazo on 09-26-2024 pH (U) 6.0 [pH] 5.0 - 8.0 [facility] Urine sediment bacteria coun t by microscopy (number/high power field)Ordered By: Tonja Givens on 09-26-2024 Bacteria LM.HPF (Urine sed) [#/Area] 1 /[HPF] None Seen [facility] Urine sediment bacteria count by microscopy (number/high power field) 1+ /hpf [facility] Urine specific gravity measu rementOrdered By: Tonja Givens on 09-26-2024 Specific gravity (U) [Rel density] 1.020 1.002-1.030 [facility] Urine total bilirubin detect ion by test stripOrdered By: Tonja Givens on 09-26-2024 Urine total bilirubin detection by test strip Negative Negative [facility] Urine urobilinogen measureme ntOrdered By: Tonja Givens on 09-26-2024 Urobilinogen Ql (U) Normal mg/dl Normal [facility] Urobilinogen Ql (U)Ordered B y: Tonja Givens on 09-26-2024 Urine Urobilinogen Normal mg/dl Normal [facility] White blood cell (WBC) count Ordered By: Tonja Givens on 09-26-2024 WBC (Bld) [#/Vol] 9.3 10*3/uL 4.4-11.0 [facility] White blood cell (WBC) count 9.3 K/mm3 4.4-11.0 [facility] White blood cell countOrdere d By: Tonja Givens on 09-26-2024 Urine WBC 5-10 SEEN /hpf 0-5 [facility] White blood cell count 5-10 SEEN /hpf 0-5 [facility] White blood cell count 5-10 SEEN /hpf 0-5 [facility] pH (U)Ordered By: Tonja wilson on 09-26-2024 Urine pH 6.0 5.0 - 8.0 [facility] CNPNon 09-24-2024 CNPN Telephone (ENDMED) -------- ALEXANDRA BELLA ([id number]) 1955 F Date Time Provider Department 09/24/24 VAUGHN DECKER During your visit today, we recorded the following information about you: Corrie Alejandro RN 09/24/2024 2:23 PM Signed Received a faxed notification from [facility] that patient has been prescribed Synthroid historically. This has been covered in the past by insurance. However, this is no longer going to be a covered medication. Patient has been provided a 30 day supply, but beyond that is not covered. They will require a formulary exception or pay out of pocket. Please review, is there a medical reason patient needs to remain on brand? If not then patient will need to pay out of pocket/use [facility] to purchase or switch to formulary products such as Levothyroxine. Vaughn Decker MD 09/25/2024 3:50 PM Signed Ok to switch to levothyroxine at the same dose. If you could let the patient know HH Corrie Alejandro RN 09/26/2024 10:45 AM Signed Called patient's home/cell# at [phone], left voice message to call office at [phone], and ask to speak to the nurse. Neema Berman MA 09/26/2024 3:26 PM Signed Called and spoke with patient and she said she did try and fail Levothyroxine decades ago but we do not have documentation which insurance is requesting. Patient said that provider who prescribed it is no longer around. I informed her she can try the Levothyroxine (for the appropriate time for her insurance to count as failure) and then we would have the documentation they need or she can pay out of pocket for the Brand name Synthroid (using [facility]). She said she will not take the Levothyroxine. I asked her to let us know what she wants to do. CLOSED Allergies As of Date: 09/24/2024 Noted Allergy Reaction ADHESIVE TAPE 01/07/2002 Comments: rash AVELOX (MOXIFLOXACIN HCL) 02/16/2009 Comments: Heart race BIAXIN (CLARITHROMYCIN) 02/17/2009 4 - Hives 8 - GI Upset ERYC (ERYTHROMYCIN) 02/16/2009 7 - Swelling METFORMIN 05/25/2022 8 - GI Upset Comments: Throwing up, Diarrhea PENICILLINS 07/07/2003 QUINOLONES 07/12/2004 Comments: Avelox REMICADE (INFLIXIMAB) 10/21/2020 12 - Shortness of Breath SPIRONOLACTONE 05/14/2020 5 - Intolerance Comments: Headaches SUTURES 11/28/2023 14 - Other: See Comments Comments: Suture do not dissolve DEMEROL (MEPERIDINE (PF)) 03/14/2012 14 - Other: See Comments Comments: Arm swelled up locally and turned red. Date Reviewed: 09/10/2024 Reviewed by: Nesha Schrader MA - Fully Assessed Reason for Visit: Formulary Changes [Other] Order(s):levothyroxine (SYNTHROID) 200 mcg tabletTake one tablet Monday through Monday,and half a pill on Saturdays and none on Sundays.Disp: 66 tabletRfl: 2 Prescriptions as of 09/26/2024 - levothyroxine (SYNTHROID) 200 mcg tablet Take one tablet Monday through Monday,and half a pill on Saturdays and none on Sundays. - ONETOUCH ULTRA TEST test strip Use as directed to check glucose once daily. E11.9 - ONETOUCH ULTRASOFT LANCETS Use as directed to check glucose once daily.E11.9 - glipiZIDE (GLUCOTROL) 5 mg tablet Take 0.5 tablets (2.5 mg) by mouth two times a day before meals. - metoprolol tartrate, short acting, (LOPRESSOR) 25 mg tablet 1 tablet with food Orally Twice a day for 30 day(s) - sucralfate (CARAFATE) 1 gram tablet Dissolve 1 tablet into 1-2 tbsp water and drink as a slurry twice daily. Do not eat or drink for 30 mins after taking. - Blood-Glucose Meter (ONETOUCH ULTRA2 METER) monitoring kit Use to test blood sugar daily, DX: E11.9, NIDDM - omeprazole (PRILOSEC) 40 mg capsule TAKE 1 CAPSULE BY MOUTH ONCE DAILY - losartan (COZAAR) 25 mg tablet Take 0.5 tablets by mouth once daily. - flecainide (TAMBOCOR) 100 mg tablet Take 1 tablet by mouth every 12 hours. - apixaban (ELIQUIS) 5 mg tab(s) Take 1 tablet by mouth twice daily. - furosemide (LASIX) 20 mg tablet Take 2 tablets by mouth every other day. - potassium chloride (K-TAB) 10 mEq tablet Take 1 tablet by mouth once daily. - traMADol (ULTRAM) 50 mg tablet Take 1 tablet by mouth as directed. - albuterol HFA (PROVENTIL HFA, VENTOLIN HFA) 90 mcg/actuation inhaler as needed. - golimumab (SIMPONI ARIA INTRAVENOUS) Inject intravenously every 8 weeks. 2mg/kg (242mg) - CPAP - celecoxib (CELEBREX) 200 mg capsule Take 1 capsule by mouth once daily. - acetaminophen(TYLENOL ARTHRITIS 650 MG TAB) Take 2 tablets daily. Problem List As Of Date 09/24/2024 Noted Resolved History of left breast cancer [Z85.3] 07/12/2004 LUMP OR MASS IN BREAST [N63.0] 09/27/2004 DEEP VENOUS PHLEBITIS-LEG NEC [I80.299] Right knee injury [S89.91XA] 10/03/2012 Right wrist pain [M25.531] 10/03/2012 Tear of right meniscus as current injury [S83.2*10/03/2012 07/08/2019 Left-sided chest wall pain [R07.89] 07/17/2016 11/11/2020 Mass on (more content not included)... Normal [facility] CNOVon 09-10-2024 CNOV Office Visit (OTMBHT ) -------- ALEXANDRA BELLA ([id number]) 1955 F Date Time Provider Department 09/10/24 9:00 AM ROYER FERGUSON During your visit today, we recorded the following information about you: Royer Ferguson PA-C 09/10/2024 9:02 AM Addendum CHIEF COMPLAINT: Alexandra Chi Bella is a 68 year old female who presents today for BL knee pain/ Euflexxa injections PAIN EVALUATION 09/09/2024 1723 09/10/2024 0844 Pain Level: 6 6 Pain Location: -- Knee-Left bilateral Description: -- Aching Frequency: -- Continuous HISTORY OF PRESENT ILLNESS: Alexandra is here for her third of 3 Euflexxa injections for bilateral knee osteoarthritis She has had an overall improvement from the first 2 Denies new injury or complaint would like to move forward with the series as scheduled REVIEW OF SYMPTOMS: Constitutional: patient denies any recent fever or significant change in weight Gastrointestinal: patient denies any current abdominal discomfort Musculoskeletal: as noted in the HPI Neurologic: as noted in the HPI SOCIAL HISTORY: Tobacco Use: Types: Cigarettes ALLERGIES: ALLERGIES Allergen Reactions Adhesive Tape rash Avelox [Moxifloxaci* Heart race Biaxin [Clarithromy* Hives, GI Upset Eryc [Erythromycin] Swelling Metformin GI Upset Throwing up, Diarrhea Penicillins Quinolones Avelox Remicade [Inflixima* Shortness of Breath Spironolactone Intolerance Headaches Sutures Other: See Comments Suture do not dissolve Demerol [Meperidine* Other: See Comments Arm swelled up locally and turned red. PAST MEDICAL HISTORY: PAST MEDICAL HISTORY Diagnosis Date Acute deep vein thrombosis (DVT) of popliteal vein of left lower extremity (HCC) Four DVT's last one 20 years ago- control- and after fracture Asymptomatic postmenopausal status (age-related) (natural) 03/2000 LMP 03/2000 CHF (congestive heart failure) (HCC) Colon cancer (HCC) 2018 Colorectal cancer (HCC) Endocarditis 2017 Essential hypertension 08/24/2018 Gastroesophageal reflux disease without esophagitis 08/24/2018 GERD (gastroesophageal reflux disease) Irritable bowel syndrome Irritable bowel Syndrome Kidney stones 2004 Left-sided chest wall pain 07/17/2016 Multiple gastric ulcers 2020 MARILIA (obstructive sleep apnea) 08/24/2018 Other hyperlipidemia 08/24/2018 Paroxysmal atrial fibrillation (HCC) Personal history of malignant neoplasm of breast 1996 1996 Breast cancer, clinical stage 1 infiltrating carcinoma left breast Phlebitis and thrombophlebitis of other deep vessels of lower extremities Phlebitis Phlebitis and thrombophlebitis of other deep vessels of lower extremities history of 3 DVTs Left Leg PMH - PAST MEDICAL HISTORY OF 09/1991 pap abnormal cells derived from serve dysplasia PMH - PAST MEDICAL HISTORY OF 11/1991 pap moderate - severe dysplasia Postoperative hypothyroidism 08/24/2018 Pre-diabetes Rheumatoid arthritis (HCC) 08/24/2018 Shingles Thyroid disease PHYSICAL EXAMINATION: Patient's vitals and nursing notes were reviewed. Vitals: LMP 03/11/1998 Skin: Skin color, texture, turgor normal, no suspicious rashes or lesions noted Cardiovascular: no signs of upper or lower extremity edema Psychiatric: mood and affect are appropriate, patient is oriented to time, place and person Neurologic: sensation is grossly intact Lymphatic: no asymetric limb swelling noted General Appearance: Well appearing, alert, in no acute distress, well-hydrated, and well nourished Respiratory: no respiratory distress, no audible wheezing, no labored breathing, symmetric thoracic excursion Bilateral knee(s): Neurovascularly intact No erythema, warmth or breaks in the skin concerning for infection Range of motion unchanged Able to stand and ambulate IMAGING: No imaging was performed today. CLINICAL IMPRESSION / ASSESSMENT: (M17.0) Bilateral primary osteoarthritis of knee (primary encounter diagnosis) RECOMMENDATION / PLAN: Follow up-as needed She has had some improvement from the injections on the left knee and completed the series today. She is now having more discomfort noticeable on the right knee and has significant arthritic changes on the right knee as well. She is interested in possible gel injections as she has had such an improvement with the gel injections on the left side. Below I am going to be submitting for authorization for right knee Euflexxa injections Tolerated procedure described below well. Large Joint Arthro/Inj: L knee joint Informed Consent Consent Obtained: Verbal Arden Protocol A moment to CARE was completed. SIGN IN Personnel directly involved with the procedure wore the appropriate PPE. Special Equipment: N/A Patient/Surrogate Stated/Verified: Patient name, Date of , Relevant allergies and Intended procedure (more content not included)... Normal [facility] Large Joint Arthro/Inj: L kn ee jointon 09-10-2024 Royer Ferguson PA-C 09/10/2024 9:02 AM Large Joint Arthro/Inj: L knee joint Informed Consent Consent Obtained: Verbal Arden Protocol A moment to CARE was completed. SIGN IN Personnel directly involved with the procedure wore the appropriate PPE. Special Equipment: N/A Patient/Surrogate Stated/Verified: Patient name, Date of , Relevant allergies and Intended procedure TIME OUT Intended patient and procedure match the source document(s). Consent documented and matches the intended procedure. Relevant labs, photos, and/or imaging studies have been reviewed. Correct side/site marked and visible. Medications required for procedure verified. No fire risk assessment and interventions applicable. No implant(s) inserted. 09/10/2024 8:51 AM The procedure site was prepped in the usual sterile fashion. Site: L knee joint Medications: 20 mg sodium hyaluronate 10 mg/mL(mw 2.4 -3.6 million) Outcome: Tolerated well, no immediate complications Post-injection instructions were reviewed with the patient and the patient voiced understanding of these instructions. SIGN OUT No specimen collected. All instruments, equipment, possible retained foreign bodies accounted for. Post-procedure follow-up management communicated and Plan of Care Visit completed when applicable [facility] PAP IG HPV APTIMA 16/18,45on 09-09-2024 ADEQ Comment Normal . [facility] Comment on above: Order Comment: Speci men Comment: [id number] Comment: Source.............Cervix;EndocervixSpecimen Comment: Other..............Post MenopausalSpecimen Comment: No. of containers..01 ThinPrep Vial Result Comment: Sati sfactory for evaluation. No endocervical component is identified. Performed By: #### L 7400.0280 ####[facility] [id number] [place], [place], [id number] COMM . Normal . [facility] Comment on above: Order Comment: Speci men Comment: [id number] Comment: Source.............Cervix;EndocervixSpecimen Comment: Other..............Post MenopausalSpecimen Comment: No. of containers..01 ThinPrep Vial Performed By: #### L 7400.0280 ####[facility] [address] [place], [address] COMMENT Comment Normal . [facility] Comment on above: Order Comment: Speci men Comment: [id number] Comment: Source.............Cervix;EndocervixSpecimen Comment: Other..............Post MenopausalSpecimen Comment: No. of containers..01 ThinPrep Vial Result Comment: This liquid based ThinPrep(R) pap test was screened with the use of an image guided system. Performed By: #### L 7400.0280 ####[facility] [address] [place], [place], [id number] DIAG Comment Normal . [facility] Comment on above: Order Comment: Speci men Comment: [id number] Comment: Source.............Cervix;EndocervixSpecimen Comment: Other..............Post MenopausalSpecimen Comment: No. of containers..01 ThinPrep Vial Result Comment: NEGA TIVE FOR INTRAEPITHELIAL LESION OR MALIGNANCY. Performed By: #### L 7400.0280 ####[facility] [address] [place], [place], [id number] HPV APTIMA, HR Negative Normal Negative [facility] Comment on above: Order Comment: Speci men Comment: [id number] Comment: Source.............Cervix;EndocervixSpecimen Comment: Other..............Post MenopausalSpecimen Comment: No. of containers..01 ThinPrep Vial Result Comment: This nucleic acid amplification test detects fourteen high- risk HPV types (16,18,31,33,35,39,45,51,52,56,58,59,66,68) without differentiation. Performed By: #### L 7400.0280 ####[facility] [address] [place], [place], [id number] HPV Carlota Rfx Comment Normal . [facility] Comment on above: Order Comment: Speci men Comment: [id number] Comment: Source.............Cervix;EndocervixSpecimen Comment: Other..............Post MenopausalSpecimen Comment: No. of containers..01 ThinPrep Vial Result Comment: Crit erreece not met, HPV Genotype not performed. Performed at: [address] [id number] Fingerprint Technician: Liz Donovan MD, Phone: [phone] Performed at: [address] [id number] Fingerprint Technician: Liz Donovan MD, Phone: [phone] Performed By: #### L 7400.0280 ####[facility] [address] [place], [place], [id number] PAPSMR Comment Normal . [facility] Comment on above: Order Comment: Speci men Comment: [id number] Comment: Source.............Cervix;EndocervixSpecimen Comment: Other..............Post MenopausalSpecimen Comment: No. of containers..01 ThinPrep Vial Result Comment: The Pap smear is a screening test designed to aid in the detection of premalignant and malignant conditions of the uterine cervix. It is not a diagnostic procedure and should not be used as the sole means of detecting cervical cancer. Both false-positive and false-negative reports do occur. Performed By: #### L 7400.0280 ####[facility] [address] [place], [place], [id number] PERFORM Comment Normal . [facility] Comment on above: Order Comment: Speci men Comment: [id number] Comment: Source.............Cervix;EndocervixSpecimen Comment: Other..............Post MenopausalSpecimen Comment: No. of containers..01 ThinPrep Vial Result Comment: Tamiko Madsen Iron Piler (ASCP) Performed By: #### L 7400.0280 ####[facility] [address] [place], [place], [id number] DIAG MAMM W/CAD, BILATon DIAG MAMM W/CAD, BILAT [facility] [address] [place], [place] [address] DIAG MAMM W/CAD, BILAT MR#: [id number] Acct: [id number] Name: ALEXANDRA BELLA Rep #: [id number] : 1955 F 68 From: Orville Cortez MD PCP: VANESSA Gilliland Status: [facility] CL Study: DIAG MAMM W/CAD, BILAT Date of Exam: 09/05/24 Exam# [id number] Ordering Dr: Cayla Jolley [id number] MAMMOGRAPHY - BILATERAL DIAGNOSTIC REASON FOR EXAM: Female, 68 years old. Breast Lump PERTINENT HISTORY: Non-contributory. TECHNIQUE: Digital examination. Mediolateral oblique (MLO) and craniocaudad (CC) views of both breasts were obtained. CAD: CAD was performed on this study. COMPARISON: 08/10/2023 FINDINGS: Breast Composition: There are scattered areas of fibroglandular density. No dominant mass. No suspicious desiccation with right breast. Interval marked increase in the number of dystrophic calcifications in the upper outer quadrant left breast at site of lumpectomy corresponding to the patient''s palpable abnormality. No other significant abnormalities are identified. BI/DIAG MAMM W/CAD, BILAT IMPRESSION: Marked interval increase in the dystrophic calcifications in the upper outer quadrant left breast at site of lumpectomy responding to the palpable abnormality. ASSESSMENT CATEGORY: BIRADS Category 2: Benign. A letter regarding these results will be sent to the patient by the facility within 30 days. FOLLOW UP RECOMMENDATION: Yearly follow up mammogram recommended. (A) Approximately 10% of breast cancers are not detected by mammography. A normal mammogram should not delay biopsy of a clinically suspicious abnormality. Electronically Signed: Orville Cortez MD at 9:57 EST , CC: VANESSA Davalos; Dr. Cayla Jolley MD Rnp: Signed [facility] CNOVon 09-03-2024 CNOV Office Visit (OTMBHT ) -------- ALEXANDRA BELLA ([id number]) 1955 F Date Time Provider Department 09/03/24 8:00 AM ROYER FERGUSON OTREMI During your visit today, we recorded the following information about you: Royer Ferguson PA-C 09/10/2024 9:00 AM Addendum CHIEF COMPLAINT: Alexandra Bella is a 68 year old female who presents today for BL knee pain/ Euflexxa injections PAIN EVALUATION 09/03/2024 0831 Pain Level: 6 Pain Location: Knee-Left Description: Aching Frequency: Continuous HISTORY OF PRESENT ILLNESS: Alexandra is here for bilateral Euflexxa injections She had her first Euflexxa injection a week ago and has had some improvement from the series Denies new injury and would like to move forward with the second injections as scheduled REVIEW OF SYMPTOMS: Constitutional: patient denies any recent fever or significant change in weight Gastrointestinal: patient denies any current abdominal discomfort Musculoskeletal: as noted in the HPI Neurologic: as noted in the HPI SOCIAL HISTORY: Tobacco Use: Types: Cigarettes ALLERGIES: ALLERGIES Allergen Reactions Adhesive Tape rash Avelox [Moxifloxaci* Heart race Biaxin [Clarithromy* Hives, GI Upset Eryc [Erythromycin] Swelling Metformin GI Upset Throwing up, Diarrhea Penicillins Quinolones Avelox Remicade [Inflixima* Shortness of Breath Spironolactone Intolerance Headaches Sutures Other: See Comments Suture do not dissolve Demerol [Meperidine* Other: See Comments Arm swelled up locally and turned red. PAST MEDICAL HISTORY: PAST MEDICAL HISTORY Diagnosis Date Acute deep vein thrombosis (DVT) of popliteal vein of left lower extremity (HCC) Four DVT's last one 20 years ago- control- and after fracture Asymptomatic postmenopausal status (age-related) (natural) 03/2000 LMP 03/2000 CHF (congestive heart failure) (HCC) Colon cancer (HCC) 2018 Colorectal cancer (HCC) Endocarditis 2017 Essential hypertension 08/24/2018 Gastroesophageal reflux disease without esophagitis 08/24/2018 GERD (gastroesophageal reflux disease) Irritable bowel syndrome Irritable bowel Syndrome Kidney stones 2004 Left-sided chest wall pain 07/17/2016 Multiple gastric ulcers 2020 MARILIA (obstructive sleep apnea) 08/24/2018 Other hyperlipidemia 08/24/2018 Paroxysmal atrial fibrillation (HCC) Personal history of malignant neoplasm of breast 1996 1996 Breast cancer, clinical stage 1 infiltrating carcinoma left breast Phlebitis and thrombophlebitis of other deep vessels of lower extremities Phlebitis Phlebitis and thrombophlebitis of other deep vessels of lower extremities history of 3 DVTs Left Leg PMH - PAST MEDICAL HISTORY OF 09/1991 pap abnormal cells derived from serve dysplasia PM - PAST MEDICAL HISTORY OF 11/1991 pap moderate - severe dysplasia Postoperative hypothyroidism 08/24/2018 Pre-diabetes Rheumatoid arthritis (HCC) 08/24/2018 Shingles Thyroid disease PHYSICAL EXAMINATION: Patient's vitals and nursing notes were reviewed. Vitals: LMP 03/11/1998 Skin: Skin color, texture, turgor normal, no suspicious rashes or lesions noted Cardiovascular: no signs of upper or lower extremity edema Psychiatric: mood and affect are appropriate, patient is oriented to time, place and person Neurologic: sensation is grossly intact Lymphatic: no asymetric limb swelling noted General Appearance: Well appearing, alert, in no acute distress, well-hydrated, and well nourished Respiratory: no respiratory distress, no audible wheezing, no labored breathing, symmetric thoracic excursion BL knee(s): Neurovascularly intact No erythema, warmth or breaks in the skin concerning for infection Range of motion unchanged Able to stand and ambulate IMAGING: No imaging was performed today. CLINICAL IMPRESSION / ASSESSMENT: (M17.0) Bilateral primary osteoarthritis of knee (primary encounter diagnosis) RECOMMENDATION / PLAN: Follow up- 1 week Tolerated procedure described below well. Large Joint Arthro/Inj: L knee joint Informed Consent Consent Obtained: Verbal Arden Protocol A moment to CARE was completed. SIGN IN Personnel directly involved with the procedure wore the appropriate PPE. Special Equipment: N/A Patient/Surrogate Stated/Verified: Patient name, Date of , Relevant allergies and Intended procedure TIME OUT Intended patient and procedure match the source document(s). Consent documented and matches the intended procedure. Relevant labs, photos, and/or imaging studies have been reviewed. Correct side/site marked and visible. Medications required for procedure verified. No fire risk assessment and interventions applicable. No implant(s) inserted. 09/03/2024 10:54 AM The procedure site was prepped in the usual sterile fashion. Site: L knee joint Medications: 20 mg (more content not included)... Normal [facility] Large Joint Arthro/Inj: bila teral knee jointson 09-03-2024 Royer Ferguson PA-C 09/03/2024 10:55 AM Large Joint Arthro/Inj: bilateral knee joints Informed Consent Consent Obtained: Verbal Arden Protocol A moment to CARE was completed. SIGN IN Personnel directly involved with the procedure wore the appropriate PPE. Special Equipment: N/A Patient/Surrogate Stated/Verified: Patient name, Date of , Relevant allergies and Intended procedure TIME OUT Intended patient and procedure match the source document(s). Consent documented and matches the intended procedure. Relevant labs, photos, and/or imaging studies have been reviewed. Correct side/site marked and visible. Medications required for procedure verified. No fire risk assessment and interventions applicable. No implant(s) inserted. 09/03/2024 10:54 AM The procedure site was prepped in the usual sterile fashion. Site: bilateral knee joints Medications (Right): 20 mg sodium hyaluronate 10 mg/mL(mw 2.4 -3.6 million) Medications (Left): 20 mg sodium hyaluronate 10 mg/mL(mw 2.4 -3.6 million) Outcome: Tolerated well, no immediate complications Post-injection instructions were reviewed with the patient and the patient voiced understanding of these instructions. SIGN OUT No specimen collected. All instruments, equipment, possible retained foreign bodies accounted for. Post-procedure follow-up management communicated and Plan of Care Visit completed when applicable [facility] Chest PA and Lateralon 09-02 Chest PA and Lateral [facility] Imaging Services [address] [place] [id number] Chest PA and Lateral MR#: [id number] Acct: [id number] Name: ALEXANDRA BELLA Rep #: [id number] : 1955 F 68 From: Orville Cortez MD PCP: VANESSA Gilliland Status: REG CLI Study: Chest PA and Lateral Date of Exam: 09/02/24 Exam# [id number] Ordering Dr: Marissa Camp NP [id number] STUDY: X-RAY CHEST REASON FOR EXAM: Female, 68 years old. shortness of breath TECHNIQUE: PA and lateral views of the chest. COMPARISON: 06/28/2019 FINDINGS: Status post left axillary lymph node dissection. The lungs are clear and expanded. There is no demonstrated pleural abnormality. Normal size heart. Normal mediastinum and nancy. Normal visualized pulmonary arteries. Normal visualized aortic arch and descending thoracic aorta. Normal visualized thoracic spine. Normal visualized ribs, clavicles, and shoulders. There is no demonstrated abnormality of the visualized soft tissue structures of the upper abdomen. RAD/Chest PA and Lateral IMPRESSION: No active disease. Electronically Signed: Orville Cortez MD at 9:43 EST , CC: VANESSA Camp; VANESSA Davalos Rnp: Signed Normal [facility] Detail Manager Cyto stain Nom (C vx/Vag) [ID]Ordered By: Cayla Jolley on 09-02-2024 Pap Smear Performed By Comment . [facility] Comment on above: Oliver Price totechnologist (ASCP) Cytology report Cyto stain D oc (Cvx/Vag)Ordered By: Cayla Jolley on 09-02-2024 Thin Prep Pap Smear Comment . [facility] Comment on above: The Pap smear is a s creening test designed to aid in thedetection of premalignant and malignant conditions of theuterine cervix. It is not a diagnostic procedure andshould not be used as the sole means of detecting cervicalcancer. Both false-positive and false-negative reports dooccur. Cytology report Cyto stain.t hin prep Doc (Cvx/Vag)Ordered By: Cayla Jolley on 09-02-2024 HPV Genotype Special Info Comment . [facility] Comment on above: Criteria not met, HP V Genotype not performed.Performed at: [facility] [address] [id number] Director: Liz Donovan MD, Phone: [phone] at: =[facility]co[address] [id number] Director: Liz Donovan MD, Phone: [phone] HPV 16+18+31+33+35+39+45+51+ 52+56+58+59+66+68 DNA Probe+sig amp Ql (Cvx)Ordered By: Cayla Jolley on 09-02-2024 Human Papillomavirus High Risk Negative Negative [facility] Comment on above: This nucleic acid am plification test detects fourteen high-risk HPV types (16,18,31,33,35,39,45,51,52,56,58,59,66,68)without differentiation. Detection in cervical specimen of any of human papilloma virus (HPV) 16, 18, 31, 33, Negative Negative [facility] Image-guided ThinPrep PapOrd ered By: Cayla Jolley on 09-02-2024 Pap Smear Note Comment . [facility] Comment on above: This liquid based Th inPrep(R) pap test was screened withthe use of an image guided system. Image-guided liquid-based Pa pOrdered By: Cayla Jolley on 09-02-2024 Pap Smear Diagnosis Comment . [facility] Comment on above: NEGATIVE FOR INTRAEP ITHELIAL LESION OR MALIGNANCY. Image-guided liquid-based Pap Comment . [facility] Salesperson Corsets Office Visit Reporton 09-02-2024 Salesperson [employer] Office Visit Report [facility] [address], [address] [place] [address] OFFICE VISIT Date of Service: 09/02/24 MR#: [id number] Acct: [id number] Name: ALEXANDRA BELLA Rep #: [id number] : 1955 Provider: Dr. Cayla brown MD Age/Sex: 68/F Location[place] [facility] Status: Signed Intake Vital Signs 08/28/23 08:40 03/18/24 16:34 04/22/24 09:06 09/02/24 07:57 09/02/24 09:38 Height 5 ft 3 in 5 ft 3 in 5 ft 3 in 5 ft 3 in 5 ft 3 in Weight: 293 lb BMI 51.9 BP 84/63 L Blood Pressure Location Rt brachial Position Sitting Pulse 80 Pulse Source Monitor Intake Visit Reasons: Annual (IMPREGNATOR AND DRIER) Chief Complaint: Annual Paper Cutter Required: No Is patient in pain?: Yes (chest and back) Pain scale (1-10): 6 Allergies infliximab (From Remicade) Allergy (Severe, Verified 09/02/24 09:41) Anaphylaxis oxymetazoline (From Afrin (oxymetazoline)) Allergy (Severe, Verified 09/02/24 09:41) CHEST PAIN Penicillins Allergy (Verified 09/02/24 09:41) Hives adhesive tape Adverse Reaction (Severe, Verified 09/02/24 09:41) / clarithromycin Adverse Reaction (Severe, Verified 09/02/24 09:41) crmps and diarrhea dulaglutide (From Trulicity) Adverse Reaction (Severe, Verified 09/02/24 09:41) Abd cramps/diarrhea latex Adverse Reaction (Severe, Verified 09/02/24 09:41) / spironolactone (From Aldactone) Adverse Reaction (Severe, Verified 09/02/24 09:41) headaches Medications ???Medication ???Instructions ???Recorded ???Confirmed ???Type tramadol 50 mg tablet 50 mg PO Q6H PRN Pain 08/23/18 09/02/24 History celecoxib 200 mg capsule 200 mg PO 1200 08/05/19 09/02/24 History blood-glucose meter (FreeStyle #1 ea 01/06/20 03/18/24 Rx [place] Lite kit) lancing device with lancets kit #1 ea 08/13/20 03/18/24 Rx (NeuroNascentuch Delica Plus Lancing Device kit) compress.stocking,knee,r eg,lrg #2 ea 08/31/20 03/18/24 Rx golimumab 12.5 mg/mL intravenous See Rx Instructions .Route .COMPLEX 08/24/21 09/02/24 History solution (Simponi ARIA) FreeStyle Lite Strips (blood sugar #300 ea 12/08/21 03/18/24 Rx diagnostic) lancets 28 gauge (FreeStyle #120 ea 12/08/21 03/18/24 Rx Lancets) diphenoxylate-atropine 2.5 1 tab PO TID PRN diarrhea #30 tabs 09/26/22 09/02/24 Rx mg-0.025 mg tablet (Lomotil) albuterol sulfate 90 mcg/actuation 2 puff inhalation Q4H PRN 02/01/23 09/02/24 Rx aerosol inhaler (ProAir HFA) shortness of breath or wheezing #8.5 grams cholecalciferol (vitamin D3) 1,250 1,250 mcg PO QWEEK 08/28/23 09/02/24 History mcg (50,000 unit) capsule clobetasol 0.05 % topical ointment 1 applic topical QHS PRN lichen 08/28/23 09/02/24 Rx sclerosis #30 grams fluticasone propionate 50 2 spray intranasal DAILY #18.2 mL 08/28/23 09/02/24 Rx mcg/actuation nasal spray,suspension (Allergy Relief (fluticasone)) glipizide 5 mg tablet 2.5 mg PO BID 01/05/24 09/02/24 History levothyroxine 200 mcg tablet 200 mcg PO DAILY 01/05/24 09/02/24 History (Synthroid) nystatin 100,000 unit/gram topical 1 applic topical BID PRN 01/05/24 09/02/24 History powder (Nystop) sucralfate 1 gram tablet (Carafate) 1 g PO QDAY PRN 01/05/24 09/02/24 History apixaban 5 mg tablet (Eliquis) 5 mg PO BID #180 tabs 04/22/24 09/02/24 Rx flecainide 100 mg tablet 100 mg PO Q12H #180 tabs 04/22/24 09/02/24 Rx furosemide 20 mg tablet 40 mg (2 x 20 mg) PO Q OTHER DAY 04/22/24 09/02/24 Rx PRN edema #45 tabs losartan 25 mg tablet 25 mg PO DAILY #90 tabs 04/22/24 09/02/24 Rx metoprolol tartrate 25 mg tablet 12.5 mg (1/2 x 25 mg) PO DAILY #45 04/22/24 09/02/24 Rx tabs potassium chloride 10 mEq 10 meq PO DAILY #90 caps 04/22/24 09/02/24 Rx capsule,extended release loratadine 10 mg tablet (Claritin) 10 mg PO QDAY #90 tabs 06/10/24 09/02/24 Rx omeprazole 40 mg capsule,delayed 40 mg PO DAILY #90 caps 07/11/24 09/02/24 Rx release Is last menstrual period known: No Post menopausal: Yes Patient : No : No Nurse's Note: Annual [facility] Medical History Bilateral acute otitis media Type 2 diabetes mellitus with hyperglycemia Shingles Right bundle branch block (RBBB) Nonobstructive atherosclerosis of coronary artery Chronic diastolic (congestive) heart failure Bronchitis 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 Lichen sclerosus Lichen sclerosus Chronic sinusitis Yeast infection Hepatic fibrosis, stage 3 History of cardioversion Paroxysmal atrial fibrillation Pure hypercholesterolemia [place] filter in place Rectal cancer PVD (peripheral vascular disease) Varicosities of leg Pneumonia Diverticulitis Chronic UTI (urinary tract infection) Lipoma Diarrhea Soft tissue mass Peptic ulcer disease Other chest pain UTI (urinary tract in (more content not included)... Normal [facility] Pulmonary Visit Reporton Pulmonary Visit Report [facility] [place] [address] [place], [place] [id number] OFFICE VISIT Date of Service: 09/02/24 MR#: [id number] Acct: [id number] Name: ALEXANDRA BELLA Rep #: [id number] : 1955 Provider: VANESSA Camp Age/Sex: 68/F Location: [facility] Status: Signed Assessment and Plan Assessment and Plan (1) Shoulder pain: Status: Acute Qualifiers: Chronicity: acute Laterality: right Qualified Code(s): M25.511 - Pain in right shoulder Plan: Patient reports that she has some discomfort under the right shoulder blade that radiates around to the front of the right chest. This has been ongoing for approximately 1 week. The patient admits that she has been ill several times recently with respiratory illness that she picked up from her young grandchildren. She does not currently have a cough. The discomfort is not severe. It does not radiate down the arm or to the jaw. It is of unclear etiology, however I suspect it could be pleurisy or muscle discomfort following recent respiratory illness with frequent cough. Chest x-ray ordered, test results to be discussed by phone. (2) Sleep apnea: Status: Chronic Qualifiers: Sleep apnea type: obstructive Qualified Code(s): G47.33 - Obstructive sleep apnea (adult) (pediatric) Plan: She is using and benefiting from her Pap device. No indication for titration at this time. Follow- up in 3 months. Contact the office with any new or worsening symptoms in the meantime. (3) Obesity: Status: Chronic Qualifiers: Obesity type: due to excess calories Obesity classification: adult class 3 (BMI >= 40) Serious obesity comorbidity presence: with serious comorbidity Body mass index: BMI 45.0-49.9 Qualified Code(s): E66.01 - Morbid (severe) obesity due to excess calories; Z68.42 - Body mass index (BMI) 45.0-49.9, adult Plan: Complicates exam, plan, care and prognosis. Continue to encourage healthy weight loss. (4) Dyspnea on exertion: Status: Chronic Plan: Stable, however the patient is going to require left knee surgery. In anticipation of a pulmonary clearance, the patient is agreeable to a pulmonary function test and walking oximetry that will be performed in 2 months. The patient will return to the office in 3 months to discuss test results. Orders: Orders Chest PA and Lateral Today J20.2 - Acute bronchitis due to streptococcus PFT Complete - DLCO, Spirometry b/a bronchodilators, lung volumes 11/04/24 R06.09 - Other forms of dyspnea Simple Pulmonary Exercise Test 11/05/24 R06.09 - Other forms of dyspnea HPI 6 M FU Chief Complaint: Back pain HPI Comments Details: This patient presents to the office today for follow-up on her obstructive sleep apnea and obesity. She is in a wheelchair and currently on room air. She is accompanied today by her . She has not recently been seen in the ED or urgent care for any respiratory illness. She reports that she has had several respiratory illnesses in the past 6 months that she picked up from her young grandchildren. Most recent was approximately 1 month ago. She is not currently on any maintenance inhalers. She has noticed that recently she has been utilizing her albuterol rescue inhaler more frequently. She reports shortness of breath on exertion. Currently she denies any cough, sputum production or hemoptysis. She does report discomfort under her right shoulder blade that radiates around to her right chest. This has been ongoing for the past week to week and a half. She denies any wheezing, chest tightness, chest pain pain or palpitations. She also denies any fever, chills or body aches. She states that she sleeps with her Pap device at all times. If she requires a nap she utilizes her PAP machine. She wakes up feeling rested and refreshed. She states that she can never sleep without it. She is not having difficulty with dry mouth. She denies excessive nocturia. Compliance report for the past 30 days shows 100% compliance with an average use of 8 hours and 36 minutes per night. Current setting is 12/8 cm of water with a residual AHI of 3.8 events per hour. Leaks do not appear to be problematic. Intake Vital Signs 06/10/24 15:47 09/02/24 07:57 09/02/24 09:38 09/02/24 10:57 Height 5 ft 3 in 5 ft 3 in 5 ft 3 in Weight: 293 lb 293 lb BMI 51.9 BP 84/63 L 137/76 H Blood Pressure Location Rt brachial Rt brachial Position Sitting Sitting Respiration 18 Pulse 80 70 Pulse Source Monitor Monitor Temp 97.6 F L Temperature Source Temporal Artery Pulse Oximetry (%) 96 Oxygen Delivery Method room air Intake Visit Reasons: 6 M FU Chief Complaint: Annual Paper Cutter Required: No DME Vendor: [employer] Allergies infliximab (From Remicade) Allergy (Severe, Verified 09/02/24 10:47) Anaphylaxis oxymet (more content not included)... Normal [facility] Service comment (Unsp spec) [Interp]Ordered By: Cayla Jolley on 09-02-2024 Pap Smear Comment (3) . . [facility] . . [facility] CNOVon 08-27-2024 CNOV Office Visit (OTMBHT ) -------- ALEXANDRA BELLA ([id number]) 1955 F Date Time Provider Department 08/27/24 8:30 AM ROYER FERGUSON OTLUIS CARLOS During your visit today, we recorded the following information about you: Royer Ferguson PA-C 08/27/2024 9:02 AM Signed CHIEF COMPLAINT: Alexandra Bella is a 68 year old female who presents today for left knee pain/ Euflexxa injections PAIN EVALUATION 08/23/2024 2145 Pain Level: 6 Description: Aching;Sore;Stiffness;Te nderness;Throbbing;Tight ness Duration Units: Hours Frequency: Intermittent Intervention/Comfort measure: Reposition;Pillow support HISTORY OF PRESENT ILLNESS: Alexandra is here for evaluation of left knee pain secondary to osteoarthritis She has been approved for Euflexxa injections for the left knee Since then she has also noticed that her right knee has been more painful and she has been favoring the left knee and may want to consider gel injections on the right side in the future Denies new injury or complaint would like to move forward with the Euflexxa series as scheduled REVIEW OF SYMPTOMS: Constitutional: patient denies any recent fever or significant change in weight Gastrointestinal: patient denies any current abdominal discomfort Musculoskeletal: as noted in the HPI Neurologic: as noted in the HPI SOCIAL HISTORY: Tobacco Use: Types: Cigarettes ALLERGIES: ALLERGIES Allergen Reactions Adhesive Tape rash Avelox [Moxifloxaci* Heart race Biaxin [Clarithromy* Hives, GI Upset Eryc [Erythromycin] Swelling Metformin GI Upset Throwing up, Diarrhea Penicillins Quinolones Avelox Remicade [Inflixima* Shortness of Breath Spironolactone Intolerance Headaches Sutures Other: See Comments Suture do not dissolve Demerol [Meperidine* Other: See Comments Arm swelled up locally and turned red. PAST MEDICAL HISTORY: PAST MEDICAL HISTORY Diagnosis Date Acute deep vein thrombosis (DVT) of popliteal vein of left lower extremity (HCC) Four DVT's last one 20 years ago- control- and after fracture Asymptomatic postmenopausal status (age-related) (natural) 03/2000 LMP 03/2000 CHF (congestive heart failure) (HCC) Colon cancer (HCC) 2018 Colorectal cancer (HCC) Endocarditis 2017 Essential hypertension 08/24/2018 Gastroesophageal reflux disease without esophagitis 08/24/2018 GERD (gastroesophageal reflux disease) Irritable bowel syndrome Irritable bowel Syndrome Kidney stones 2004 Left-sided chest wall pain 07/17/2016 Multiple gastric ulcers 2020 MARILIA (obstructive sleep apnea) 08/24/2018 Other hyperlipidemia 08/24/2018 Paroxysmal atrial fibrillation (HCC) Personal history of malignant neoplasm of breast 1996 1996 Breast cancer, clinical stage 1 infiltrating carcinoma left breast Phlebitis and thrombophlebitis of other deep vessels of lower extremities Phlebitis Phlebitis and thrombophlebitis of other deep vessels of lower extremities history of 3 DVTs Left Leg PMH - PAST MEDICAL HISTORY OF 09/1991 pap abnormal cells derived from serve dysplasia PMH - PAST MEDICAL HISTORY OF 11/1991 pap moderate - severe dysplasia Postoperative hypothyroidism 08/24/2018 Pre-diabetes Rheumatoid arthritis (HCC) 08/24/2018 Shingles Thyroid disease PHYSICAL EXAMINATION: Patient's vitals and nursing notes were reviewed. Vitals: LMP 03/11/1998 Skin: Skin color, texture, turgor normal, no suspicious rashes or lesions noted Cardiovascular: no signs of upper or lower extremity edema Psychiatric: mood and affect are appropriate, patient is oriented to time, place and person Neurologic: sensation is grossly intact Lymphatic: no asymetric limb swelling noted General Appearance: Well appearing, alert, in no acute distress, well-hydrated, and well nourished Respiratory: no respiratory distress, no audible wheezing, no labored breathing, symmetric thoracic excursion Left knee(s): Neurovascularly intact No erythema, warmth or breaks in the skin concerning for infection Range of motion unchanged Able to stand and ambulate IMAGING: No imaging was performed today. CLINICAL IMPRESSION / ASSESSMENT: (M17.12) Primary osteoarthritis of left knee (primary encounter diagnosis) RECOMMENDATION / PLAN: Follow up- 1 week Tolerated procedure described below well. Large Joint Arthro/Inj: L knee joint Informed Consent Consent Obtained: Verbal Arden Protocol A moment to CARE was completed. SIGN IN Personnel directly involved with the procedure wore the appropriate PPE. Special Equipment: N/A Patient/Surrogate Stated/Verified: Patient name, Date of , Relevant allergies and Intended procedure TIME OUT Intended patient and procedure match the source document(s). Consent documented and matches the intended procedure. Relevant labs, photos, and/or imaging studies have been reviewed. (more content not included)... Normal [facility] Large Joint Arthro/Inj: L kn ee jointon 08-27-2024 Royer Ferguson PA-C 08/27/2024 9:02 AM Large Joint Arthro/Inj: L knee joint Informed Consent Consent Obtained: Verbal Arden Protocol A moment to CARE was completed. SIGN IN Personnel directly involved with the procedure wore the appropriate PPE. Special Equipment: N/A Patient/Surrogate Stated/Verified: Patient name, Date of , Relevant allergies and Intended procedure TIME OUT Intended patient and procedure match the source document(s). Consent documented and matches the intended procedure. Relevant labs, photos, and/or imaging studies have been reviewed. Correct side/site marked and visible. Medications required for procedure verified. No fire risk assessment and interventions applicable. No implant(s) inserted. 08/27/2024 9:02 AM The procedure site was prepped in the usual sterile fashion. Site: L knee joint Medications: 20 mg sodium hyaluronate 10 mg/mL(mw 2.4 -3.6 million) Outcome: Tolerated well, no immediate complications Post-injection instructions were reviewed with the patient and the patient voiced understanding of these instructions. SIGN OUT No specimen collected. All instruments, equipment, possible retained foreign bodies accounted for. Post-procedure follow-up management communicated and Plan of Care Visit completed when applicable [facility] CNOVon 08-07-2024 CNOV Office Visit (OTMBHT ) -------- ALEXANDRA BELLA ([id number]) 1955 F Date Time Provider Department 08/07/24 11:00 AM ROYER FERGUSON During your visit today, we recorded the following information about you: Royer Ferguson PA-C 08/09/2024 8:20 AM Signed CHIEF COMPLAINT: Alexandra Bella is a 68 year old female who presents today for new evaluation of left circumferential knee pain. PAIN EVALUATION 08/07/2024 1042 Pain Level: 9 Pain Location: Knee-Left Description: Burning;Sharp Duration Amount of Time: 1 Duration Units: Weeks Frequency: Intermittent Intervention/Comfort measure: Medication HISTORY OF PRESENT ILLNESS: Alexandra is here for evaluation of acute onset of left knee pain without injury Had a knee scope about 15 years ago She also has rheumatoid arthritis She is currently taking oral prednisone which she states has improved her symptoms somewhat She also takes tramadol and Tylenol as needed She has a history of diabetes and her last A1c was 7.5 BMI of 50.55 REVIEW OF SYMPTOMS: Constitutional: patient denies any recent fever or significant change in weight Gastrointestinal: patient denies any current abdominal discomfort Musculoskeletal: as noted in the HPI Neurologic: as noted in the HPI SOCIAL HISTORY: Tobacco Use: Types: Cigarettes ALLERGIES: ALLERGIES Allergen Reactions Adhesive Tape rash Avelox [Moxifloxaci* Heart race Biaxin [Clarithromy* Hives, GI Upset Eryc [Erythromycin] Swelling Metformin GI Upset Throwing up, Diarrhea Penicillins Quinolones Avelox Remicade [Inflixima* Shortness of Breath Spironolactone Intolerance Headaches Sutures Other: See Comments Suture do not dissolve Demerol [Meperidine* Other: See Comments Arm swelled up locally and turned red. PAST MEDICAL HISTORY: PAST MEDICAL HISTORY Diagnosis Date Acute deep vein thrombosis (DVT) of popliteal vein of left lower extremity (HCC) Four DVT's last one 20 years ago- control- and after fracture Asymptomatic postmenopausal status (age-related) (natural) 03/2000 LMP 03/2000 CHF (congestive heart failure) (HCC) Colon cancer (HCC) 2018 Colorectal cancer (HCC) Endocarditis 2017 Essential hypertension 08/24/2018 Gastroesophageal reflux disease without esophagitis 08/24/2018 GERD (gastroesophageal reflux disease) Irritable bowel syndrome Irritable bowel Syndrome Kidney stones 2004 Left-sided chest wall pain 07/17/2016 Multiple gastric ulcers 2020 MARILIA (obstructive sleep apnea) 08/24/2018 Other hyperlipidemia 08/24/2018 Paroxysmal atrial fibrillation (HCC) Personal history of malignant neoplasm of breast 1996 1996 Breast cancer, clinical stage 1 infiltrating carcinoma left breast Phlebitis and thrombophlebitis of other deep vessels of lower extremities Phlebitis Phlebitis and thrombophlebitis of other deep vessels of lower extremities history of 3 DVTs Left Leg PMH - PAST MEDICAL HISTORY OF 09/1991 pap abnormal cells derived from serve dysplasia PMH - PAST MEDICAL HISTORY OF 11/1991 pap moderate - severe dysplasia Postoperative hypothyroidism 08/24/2018 Pre-diabetes Rheumatoid arthritis (HCC) 08/24/2018 Shingles Thyroid disease PHYSICAL EXAMINATION: Patient's vitals and nursing notes were reviewed. Vitals: LMP 03/11/1998 Skin: Skin color, texture, turgor normal, no suspicious rashes or lesions noted Cardiovascular: no signs of upper or lower extremity edema Psychiatric: mood and affect are appropriate, patient is oriented to time, place and person Neurologic: sensation is grossly intact Lymphatic: no asymetric limb swelling noted General Appearance: Well appearing, alert, in no acute distress, well-hydrated, and well nourished Respiratory: no respiratory distress, no audible wheezing, no labored breathing, symmetric thoracic excursion Knee Examination Left Knee Skin No evidence of eythema, warmth, bruising, abrasions, scars, swelling, atrophy,masses or deformity about bilateral lower extremities. Effusion 1+ effusion Alignment normal Range of motion Normal extension, but decreased range of motion at end range of flexion due to "pressure" and tightness Quadriceps examination full (5/5) quadriceps strength bilaterally without signs of atrophy Patellar examination Decreased patellar mobility Positive patellar grind testing Tenderness medial joint line and popliteal fossa Meniscus difficult to assess secondary to pain Stability Collateral and cruciate knee ligaments (ACL/PCL/LCL/MCL) are all intact with no significant laxity noted bilaterally IMAGING: Final results and radiologist's interpretation, available in the [facility] health record. Images were reviewed with the patient/family members in the office today. My personal interpretation of the performed imaging is chronic degenerative changes. CLINICA (more content not included)... Normal [facility] XR KNEE 4V AP/PA BOTH+LAT/ME R LTon 08-07-2024 XR KNEE 4V AP/PA BOTH+LAT/BETITO LT * * *Final Report* * * DATE OF EXAM: Aug 07 2024 10:39AM M2X 5202 - XR KNEE 4V AP/PA BOTH+LAT/BETITO LT / PROCEDURE REASON: Pain * * * * Physician Interpretation * * * * X-RAYS LEFT KNEE HISTORY: chronic pain all over knee. Pain TECHNIQUE: 4 views of the left knee. COMPARISON: 03/14/2012 right knee x-rays RESULT: Tricompartmental osteoarthritis left knee, severe in the medial compartment with complete loss of the joint space and prominent osteophyte formation. No acute fracture or dislocation. Similar findings noted right knee with moderate to severe medial compartment osteoarthritis, progressed since 03/14/2012. IMPRESSION: Severe osteoarthritis left knee Rnp: GISELLE Transcribe Date/Time: Aug 07 2024 2:24P Dictated by : STEVEN LERMA MD This examination was interpreted and the report reviewed and electronically signed by: STEVEN LERMA MD on Aug 07 2024 2:25PM EST [id number] Normal [facility] XR Knee - left 4 Viewson IMPRESSION: Severe osteoarthritis left knee Rnp: [facility] Transcribe Date/Time: Aug 07 2024 2:24P Dictated by : STEVEN LERMA MD This examination was interpreted and the report reviewed and electronically signed by: STEVEN LERMA MD on Aug 07 2024 2:25PM EST DIVISION OF RADIOLOGY * * *Final Report* * * DATE OF EXAM: Aug 07 2024 10:39AM M2X 5202 - XR KNEE 4V AP/PA BOTH+LAT/BETITO LT / PROCEDURE REASON: Pain * * * * Physician Interpretation * * * * X-RAYS LEFT KNEE HISTORY: chronic pain all over knee. Pain TECHNIQUE: 4 views of the left knee. COMPARISON: 03/14/2012 right knee x-rays RESULT: Tricompartmental osteoarthritis left knee, severe in the medial compartment with complete loss of the joint space and prominent osteophyte formation. No acute fracture or dislocation. Similar findings noted right knee with moderate to severe medial compartment osteoarthritis, progressed since 03/14/2012. DIVISION OF RADIOLOGY Provider, Mathieu leos Pfeifer - 08/07/2024 * * *Final Report* * * DATE OF EXAM: Aug 07 2024 10:39AM M2X 5202 - XR KNEE 4V AP/PA BOTH+LAT/BETITO LT / PROCEDURE REASON: Pain * * * * Physician Interpretation * * * * X-RAYS LEFT KNEE HISTORY: chronic pain all over knee. Pain TECHNIQUE: 4 views of the left knee. COMPARISON: 03/14/2012 right knee x-rays RESULT: Tricompartmental osteoarthritis left knee, severe in the medial compartment with complete loss of the joint space and prominent osteophyte formation. No acute fracture or dislocation. Similar findings noted right knee with moderate to severe medial compartment osteoarthritis, progressed since 03/14/2012. IMPRESSION IMPRESSION: Severe osteoarthritis left knee Rnp: GISELLE Transcribe Date/Time: Aug 07 2024 2:24P Dictated by : STEVEN LERMA MD This examination was interpreted and the report reviewed and electronically signed by: STEVEN LERMA MD on Aug 07 2024 2:25PM EST [facility] Radiology Study observation (narrative) Yosvany glynn [facility] XR Knee - left 4 ViewsOrdere d By: [facility] Provider on 08-07-2024 [facility] GLOOKO ON DEMANDon 4 Ordered by an unspecified provider. [facility] HEMOGLOBIN A1C (POC)on 04-17 HbA1c (Bld) [Mass fraction] 7.5 % Abnormal 4.3 - 5.6 % [facility] Comment on above: Location:[facility], [address] [place] [address], [id number] Point of care (POC) Hemoglobin A1c (HGBA1C) testing is intended to assess glucose control and provide a management tool for patients known to have diabetes and their healthcare providers. Target HGBA1C levels may depend on specific clinical circumstances. POC HGBA1C is not intended for use as a diagnostic or screening test; laboratory-based testing should be used for diagnostic purposes. The following information is supplemental and may not be applicable to specific diabetes management situations: The POC device head operator provides a normal range of 4.2% to 6.5% for the HGBA1C POC test. However, the [place] [employer] guidelines indicate that patients with HGBA1C in the range of 5.7% to 6.4% are at increased risk for development of diabetes and that intervention by lifestyle modification may be beneficial. A HGBA1C level greater than or equal to 6.5% is considered diagnostic of diabetes, pending confirmatory testing. Use of HGBA1C testing to evaluate glucose control may not be appropriate for patients with hemoglobin variants or other conditions (e.g. anemia) that alter red blood cell lifespan. Interpretation and review of laboratory results Abnormal [facility] No Panel Informationon 03-22 IMPRESSION: Increased echotexture liver sonographically consistent with fatty liver changes Cholecystectomy without abnormal bile duct dilatation Rnp: GISELLE Transcribe Date/Time: Mar 22 2024 9:52A Dictated by : TAMIA RIOS MD This examination was interpreted and the report reviewed and electronically signed by: TAMIA RIOS MD on Mar 22 2024 9:54AM EST [employer] RADIOLOGY FRSO No Panel InformationOrdered By: [facility] Provider on 03-22-2024 [facility] US ABD SPLEEN - NBon [id number] * * *Final Report* * * DATE OF EXAM: Mar 22 2024 9:38AM LDU 1232 - US ABD SPLEEN -NB / PROCEDURE REASON: Metabolic dysfunction-associated steatohepatitis (MASH) * * * * Physician Interpretation * * * * EXAMINATION: RIGHT UPPER QUADRANT ULTRASOUND CLINICAL HISTORY: Metabolic dysfunction-associated steatohepatitis TECHNIQUE: Sonography of the right upper quadrant was performed. Images were obtained and stored in a permanent archive. MQ: URUQ_2 COMPARISON: 03/19/2024 CT RESULT: Pancreas: Normal sonographic appearance. Portions obscured: tail Liver: Echotexture: Normal, homogeneous. Echogenicity: Increased Surface contour: Smooth Lesions: None. Biliary: No intrahepatic biliary duct dilation. CBD: 0.5 cm at the hilum. Gallbladder: Cholecystectomy Right Kidney: No hydronephrosis. Ascites: None. [employer] RADIOLOGY SYNGO Provider, [facility] - 03/22/2024 * * *Final Report* * * DATE OF EXAM: Mar 22 2024 9:38AM LDU 1232 - US ABD SPLEEN -NB / PROCEDURE REASON: Metabolic dysfunction-associated steatohepatitis (MASH) * * * * Physician Interpretation * * * * EXAMINATION: RIGHT UPPER QUADRANT ULTRASOUND CLINICAL HISTORY: Metabolic dysfunction-associated steatohepatitis TECHNIQUE: Sonography of the right upper quadrant was performed. Images were obtained and stored in a permanent archive. MQ: URUQ_2 COMPARISON: 03/19/2024 CT RESULT: Pancreas: Normal sonographic appearance. Portions obscured: tail Liver: Echotexture: Normal, homogeneous. Echogenicity: Increased Surface contour: Smooth Lesions: None. Biliary: No intrahepatic biliary duct dilation. CBD: 0.5 cm at the hilum. Gallbladder: Cholecystectomy Right Kidney: No hydronephrosis. Ascites: None. IMPRESSION IMPRESSION: Increased echotexture liver sonographically consistent with fatty liver changes Cholecystectomy without abnormal bile duct dilatation Rnp: GISELLE Transcribe Date/Time: Mar 22 2024 9:52A Dictated by : TAMIA RIOS MD This examination was interpreted and the report reviewed and electronically signed by: TAMIA RIOS MD on Mar 22 2024 9:54AM EST [facility] Radiology Study observation (narrative) [facility] US Abdomen RUQon 03-22-2024 * * *Final Report* * * DATE OF EXAM: Mar 22 2024 9:38AM LDU 1032 - US ABD RIGHT UPPER QUADRANT / PROCEDURE REASON: Metabolic dysfunction-associated steatohepatitis (MASH) * * * * Physician Interpretation * * * * EXAMINATION: RIGHT UPPER QUADRANT ULTRASOUND CLINICAL HISTORY: Metabolic dysfunction-associated steatohepatitis TECHNIQUE: Sonography of the right upper quadrant was performed. Images were obtained and stored in a permanent archive. MQ: URUQ_2 COMPARISON: 03/19/2024 CT RESULT: Pancreas: Normal sonographic appearance. Portions obscured: tail Liver: Echotexture: Normal, homogeneous. Echogenicity: Increased Surface contour: Smooth Lesions: None. Biliary: No intrahepatic biliary duct dilation. CBD: 0.5 cm at the hilum. Gallbladder: Cholecystectomy Right Kidney: No hydronephrosis. Ascites: None. [facility] Provider, [facility] - 03/22/2024 * * *Final Report* * * DATE OF EXAM: Mar 22 2024 9:38AM LDU 1032 - US ABD RIGHT UPPER QUADRANT / PROCEDURE REASON: Metabolic dysfunction-associated steatohepatitis (MASH) * * * * Physician Interpretation * * * * EXAMINATION: RIGHT UPPER QUADRANT ULTRASOUND CLINICAL HISTORY: Metabolic dysfunction-associated steatohepatitis TECHNIQUE: Sonography of the right upper quadrant was performed. Images were obtained and stored in a permanent archive. MQ: URUQ_2 COMPARISON: 03/19/2024 CT RESULT: Pancreas: Normal sonographic appearance. Portions obscured: tail Liver: Echotexture: Normal, homogeneous. Echogenicity: Increased Surface contour: Smooth Lesions: None. Biliary: No intrahepatic biliary duct dilation. CBD: 0.5 cm at the hilum. Gallbladder: Cholecystectomy Right Kidney: No hydronephrosis. Ascites: None. IMPRESSION IMPRESSION: Increased echotexture liver sonographically consistent with fatty liver changes Cholecystectomy without abnormal bile duct dilatation R[facility]: [facility] Transcribe Date/Time: Mar 22 2024 9:52A Dictated by : TAMIA RIOS MD This examination was interpreted and the report reviewed and electronically signed by: TAMIA RIOS MD on Mar 22 2024 9:54AM [facility] Radiology Study observation (narrative) [facility] CT Abdomen and Pelvis W cont rast Tavia 03-19-2024 IMPRESSION: Mild wall thickening of the sigmoid colon which may represent mild diverticulitis/colitis. No fluid collection or pneumoperitoneum. Rnp: [facility] Transcribe Date/Time: Mar 19 2024 4:19P Dictated by : PADDY GARCÍA MD This examination was interpreted and the report reviewed and electronically signed by: PADDY GARCÍA MD on Mar 19 2024 4:26PM [facility] RADIOLOGY SYNGO * * *Final Report* * * DATE OF EXAM: Mar 19 2024 12:53PM [facility] 0530 - CT ABD/PEL W IVCON / PROCEDURE REASON: Left lower quadrant abdominal pain * * * * Physician Interpretation * * * * EXAMINATION: CT ABDOMEN AND PELVIS WITH IV CONTRAST CLINICAL HISTORY: Left lower quadrant abdominal pain TECHNIQUE: CT of the abdomen and pelvis was performed using standard technique, scanning from just above the dome of the diaphragm to the symphysis pubis. MQ: CTAP_3 Contrast: IV: 150 ml of Omnipaque 300 Oral: 20 ml of Omni 240 10-25ml diluted with water CT Radiation dose: Integrated Dose-length product (DLP) for this visit = 2313.48 mGy*cm. CT Dose Reduction Employed: Automated exposure control(AEC) and iterative recon COMPARISON: CT abdomen/pelvis 02/22/2023. RESULT: Liver: Stable subcentimeter hypodense lesion in the right lobe too small to characterize. Biliary: No bile duct dilation. Gallbladder is absent. Spleen: No mass. No splenomegaly. Pancreas: No mass or duct dilation. Adrenals: No mass. Kidneys: No mass, calculus or hydronephrosis. GI tract: No dilated small or large bowel. There is mild wall thickening of the sigmoid colon. Colonic diverticula present. Appendix is normal. Lymph nodes: Mildly enlarged periportal lymph nodes measuring up to 1.3 cm short axis not significantly changed since prior CT. Mesentery/Peritoneum: No ascites or mass. Retroperitoneum: No mass. Vasculature: Atherosclerotic calcifications. Infrarenal IVC filter in place. Pelvis: No mass, ascites or fluid collection. Bones/Soft Tissues: No acute bony abnormality. Degenerative changes of the lumbar spine. Lower thorax: Linear subsegmental atelectasis. Localizer images: No additional findings. [facility] SYNGO Provider, [facility] - 03/19/2024 * * *Final Report* * * DATE OF EXAM: Mar 19 2024 12:53PM [facility] 0530 - CT ABD/PEL W IVCON / PROCEDURE REASON: Left lower quadrant abdominal pain * * * * Physician Interpretation * * * * EXAMINATION: CT ABDOMEN AND PELVIS WITH IV CONTRAST CLINICAL HISTORY: Left lower quadrant abdominal pain TECHNIQUE: CT of the abdomen and pelvis was performed using standard technique, scanning from just above the dome of the diaphragm to the symphysis pubis. MQ: CTAP_3 Contrast: IV: 150 ml of Omnipaque 300 Oral: 20 ml of Omni 240 10-25ml diluted with water CT Radiation dose: Integrated Dose-length product (DLP) for this visit = 2313.48 mGy*cm. CT Dose Reduction Employed: Automated exposure control(AEC) and iterative recon COMPARISON: CT abdomen/pelvis 02/22/2023. RESULT: Liver: Stable subcentimeter hypodense lesion in the right lobe too small to characterize. Biliary: No bile duct dilation. Gallbladder is absent. Spleen: No mass. No splenomegaly. Pancreas: No mass or duct dilation. Adrenals: No mass. Kidneys: No mass, calculus or hydronephrosis. GI tract: No dilated small or large bowel. There is mild wall thickening of the sigmoid colon. Colonic diverticula present. Appendix is normal. Lymph nodes: Mildly enlarged periportal lymph nodes measuring up to 1.3 cm short axis not significantly changed since prior CT. Mesentery/Peritoneum: No ascites or mass. Retroperitoneum: No mass. Vasculature: Atherosclerotic calcifications. Infrarenal IVC filter in place. Pelvis: No mass, ascites or fluid collection. Bones/Soft Tissues: No acute bony abnormality. Degenerative changes of the lumbar spine. Lower thorax: Linear subsegmental atelectasis. Localizer images: No additional findings. IMPRESSION IMPRESSION: Mild wall thickening of the sigmoid colon which may represent mild diverticulitis/colitis. No fluid collection or pneumoperitoneum. Rnp: [facility] Transcribe Date/Time: Mar 19 2024 4:19P Dictated by : PADDY GARCÍA MD This examination was interpreted and the report reviewed and electronically signed by: PADDY GARCÍA MD on Mar 19 2024 4:26PM EST [facility] Radiology Study observation (narrative) [facility] CT Abdomen and Pelvis W cont rast IVOrdered By: [facility]cf Provider on 03-19-2024 [facility] Liver ultrasound attenuation by transient elastographyon 03-12-2024 Radiology Study observation (narrative) [facility] Liver ultrasound attenuation by transient elastographyon 03-11-2024 Patient fasting for 3 hours:Yes Fibroscan was performed on March 11, 2024, by Lia Holland MA and results are interpreted by Marquita Bustillos CNP Indication: Hepatic Steatosis Technical difficulties: Caution should be used while interpreting Fibroscan given concerns for body habitus/rib echoing/vessel in path of probe/ascites, etc. and further testing can be considered, at discretion of the ordering provider. I spent about an hour capturing the images and then I could not get the cap to 100% I spoke to Uriah Mueller who ordered it and she will discuss with about ordering a Liver Biopsy. Please refer to get images report for individual readings Number of readings: 10 IQR %: 23% E (kpa): 20.1 CAP: 366 Impression Please see the above concerns FS=20.1 kPA. The CAP score is 366 and corresponds to steatosis grade of S3. This reading corresponds: A kPa >20 indicates a high likelihood of stage 4 fibrosis/cirrhosis, consider further testing to confirm. Joon Bustillos APRN.[facility] Fibroscan Fibrosis Risk <7 kPA = F0-F2 97%, F3+F4 3%, F4 <1% <10 kPA = F0-F2 91%, F3+F4 9%, F4 1.3% 10-15 kPA = F0-F2 56%, F3+F4 43%, F4 14% >15 kPA = F0-F2 26%, F3+F4 74%, F4 46% Grade CAP value up to 237 dB/M corresponds to S0 (< 10 % Fat) CAP value between (238 - 258 dB/M) corresponds to S1 (>/= 11 % Fat) CAP value between (259 - 289 dB/M) corresponds to S2 (>/= 33 % Fat) CAP value > 290dB/M corresponds to S3 (>/= 67 % Fat) stage 0 ( S0:< 10 % steatosis) stage 1 (>/= S1: 11%-33% steatosis) stage 2 (>/= S2: 34%-66% steatosis) stage 3 (>/= S3: > 66% steatosis) Reference Juan Luis Y, Fidel Q, Juan Luis T, Ladan J, Juan Luis H, Clifton T. Controlled attenuation parameter for assessment of hepatic steatosis grades: a diagnostic meta-analysis. Int J Clin Exp Med. 2015 Jun 15;8(10):31663-75. PMID: 60115233; PMCID: [id number]. Butch Mireles, Briana BEACH, Kandice M, Hany F, Aliza J, Alessandro O, Jason F, Gulshan M, Shad G, Justin A, Mikael E, Alphonso L, Chloé Leos, Tomasz A, Aliyah U, Andi S, Lui P, Rajan V, Dan V, Darshan M, Floyd NAIK. Refining the Baveno elastography criteria for the definition of compensated advanced chronic liver disease. J Hepatol. 2020;74(5):3270-1081. doi: 10.1016/j.ep.2020.11.0 50. Epub 2019Aug 19. PMID: [id number]. Alley Mireles, Colt Chang, Rony Mireles, Leila Mireles, Daniela Jacob, Gloria Glynn, Nicholas Glynn, Darin Adam. [facility] practice guidance on the clinical assessment and management of nonalcoholic fatty liver disease. Hepatology. 2022;77(5):1478-3622. doi:10.1097/HEP.[id number] [facility] Radiology Study observation (narrative) [facility] HEMOGLOBIN A1C (POC)on 05-03 HbA1c (Bld) [Mass fraction] 8.6 % Abnormal 4.2 - 5.6 % [facility] Lipid 1996 panelon Cholesterol [Mass/Vol] 223 mg/dL High <200 mg/dL [facility] Cholesterol in HDL [Mass/Vol] 50 mg/dL >39 mg/dL [facility] Cholesterol in LDL [Mass/Vol] 141 mg/dL High <100 mg/dL [facility] Cholesterol in LDL/Cholesterol in HDL [Mass ratio] 2.82 {ratio} High <2.54 [facility] Cholesterol in VLDL [Mass/Vol] 32 mg/dL High <30 mg/dL [facility] Cholesterol non HDL [Mass/Vol] 173 mg/dL High <130 mg/dL [facility] Cholesterol.total/Choles terol in HDL [Mass ratio] 4.46 {ratio} <5.10 [facility] Fasting Time 12 hrs [facility] Triglyceride [Mass/Vol] 162 mg/dL High <150 mg/dL C [facility] TSH BLDon 05-03-2023 TSH Qn 2.280 m[IU]/L 0.270 - 4.200 mIU/L [facility] Laboratory - Hematology and Cell countson 01-23-2023 HbA1c (Bld) [Mass fraction] 7.9 % 4.2-6.3 [facility] Absolute lymphocyte countOrd ered By: Mehrdad Ruth on 2022 Lymphocytes Auto (Unsp spec) [#/Vol] 3.03 10*3/uL 0.83-4.51 [facility] Basophil percentageOrdered B y: Mehrdad Ruth on 2022 Basophils/100 WBC (Bld) 0.3 % 0-1 [facility] Bilirubin [Mass/Vol] 0.50 mg/dL 0.20-1.00 [facility] Comment on above: For patients on eltr ombopag therapy, use of Dimension [place] TBIL is not recommended. Chloride [Moles/Vol] 106 mmol/L 98-107 [facility] Cholesterol [Mass/Vol] 217 mg/dL <200 [facility] Comment on above: <200 mg/dL Desirable 200-240 mg/dL Borderline >240 mg/dL High Risk Eosinophils/100 WBC (Bld) 1.7 % 0-5 [facility] Glucose [Mass/Vol] 156 mg/dL 74-106 [facility] Comment on above: Fasting Glucose resu lt greater than or equal to 126 mg/dL suggests DIABETES MELLITUS per A.D.A. criteria. Neutrophils (Bld) [#/Vol] 2.5 10*3/uL 2.0-7.7 [facility] Neutrophils/100 WBC (Bld) 40.9 % 47-70 [facility] Potassium [Moles/Vol] 4.2 mmol/L 3.5-5.1 [facility] Protein [Mass/Vol] 8.0 g/dL 6.4-8.2 [facility] Sodium [Moles/Vol] 139 mmol/L 136-145 [facility] Triglyceride [Mass/Vol] 142 mg/dL <199 [facility] Comment on above: The drugs N-Acetylcy steine and Metamizole may falsely depress this assay.Serum Triglycerides Reference Interval Normal <150 mg/dL Borderline high 150 - 199 mg/dL High 200 - 499 mg/dL Very High > or = 500 mg/dL WBC (Bld) [#/Vol] 6.0 10*3/uL 4.4-11.0 [facility] Blood erythrocytes count (nu mber/volume)Ordered By: Mehrdad Ruth on 2022 RBC (Bld) [#/Vol] 4.79 10*6/uL 4.2-5.4 [facility] Blood hemoglobin measurement (mass/volume)Ordered By: Mehrdad Ruth on 2022 Hemoglobin (Bld) [Mass/Vol] 14.0 g/dL 12.0-15.0 [facility] Blood lymphocytes/100 leukoc ytesOrdered By: Mehrdad Ruth on 2022 Lymphocytes/100 WBC (Bld) 50.6 % 19-41 [facility] Blood monocytes/100 leukocyt esOrdered By: Mehrdad Ruth on 2022 Monocytes/100 WBC (Bld) 6.3 % 0-10 [facility] Blood platelet mean volumeOr dered By: Mehrdad Ruth on 2022 Platelet mean volume (Bld) [Entitic vol] 11.4 fL 6.2-12.0 [facility] Determination of erythrocyte mean corpuscular volume (MCV)Ordered By: Mehrdad Ruth on 2022 MCV (RBC) [Entitic vol] 90.4 fL 81-99 [facility] Direct bilirubinOrdered By: Mehrdda Ruth on 2022 Bilirubin.direct [Mass/Vol] 0.10 mg/dL 0.00-0.30 [facility] Hematocrit Auto (Bld) [Volum e fraction]Ordered By: Mehrdad Ruth on 2022 Hematocrit (Bld) [Volume fraction] 43.3 % 37-47 [facility] Laboratory - Chemistry and C hemistry - challengeOrdered By: Mehrdad Ruth on 2022 ALP [Catalytic activity/Vol] 179 U/L 45-117 [facility] ALT [Catalytic activity/Vol] 180 U/L 13-56 [facility] CO2 [Moles/Vol] 27.0 mmol/L 21.0-32.0 [facility] Globulin (S) [Mass/Vol] 4.4 g/dL 2.2-4.2 [facility] Urea nitrogen/Creatinine [Mass ratio] 18.4 mg/mg 10-20 [facility] Laboratory - Hematology and Cell countsOrdered By: Mehrdad Ruth on 2022 Erythrocyte distribution width (RBC) [Entitic vol] 45.1 fL 35.1-43.9 [facility] Erythrocyte distribution width (RBC) [Ratio] 13.6 % 11.6-14.6 [facility] Immature granulocytes/100 WBC (Bld) 0.200 % 0.0-0.9 [facility] Comment on above: IG% - Immature Granu locytes (promyelocytes, myelocytes and metamyelocytes) > 1% indicates that a LEFT SHIFT is Present. MCH (RBC) [Entitic mass] 29.2 pg 27.0-32.0 [facility] Nucleated RBC/100 WBC (Bld) [Ratio] 0 % 0-5 [facility] MCHC Auto (RBC) [Mass/Vol]Or dered By: Mehrdad Ruth on 2022 MCHC (RBC) [Mass/Vol] 32.3 g/dL 32-36 [facility] No Panel InformationOrdered By: Mehrdad Ruth on 2022 Estimated GFR (MDRD) Amer 98 mL/min >60 [facility] Comment on above: GFR Calc Estimated GFR (MDRD) Non-Af Amer 81 mL/min >60 [facility] Comment on above: Non- GFR Calc Thyroid Stimulating Hormone (TSH) 1.03 uIU/mL 0.358-3.74 [facility] Platelets bldOrdered By: Luther Ruth on 2022 Platelets (Bld) [#/Vol] 204 10*3/uL 150-450 [facility] Serum or plasma albumin shamir urement (mass/volume)Ordered By: Mehrdad Ruth on 2022 Albumin [Mass/Vol] 3.6 g/dL 3.2-5.0 [facility] Serum or plasma calcium shamir urement (mass/volume)Ordered By: Mehrdad Ruth on 2022 Calcium [Mass/Vol] 9.5 mg/dL 8.5-10.1 [facility] Serum or plasma cholesterol in HDL measurement (mass/volume)Ordered By: Mehrdad Ruth on 2022 Cholesterol in HDL [Mass/Vol] 52 mg/dL >40 [facility] Comment on above: The drugs N-Acetylcy steine and Metamizole may falsely depress this assay. Reference Range HDL <40 mg/dL Low HDL Cholesterol HDL >or= 60 mg/dL High HDL Cholesterol Serum or plasma cholesterol in VLDL measurement (mass/volume)Ordered By: Mehrdad Ruth on 2022 Cholesterol in VLDL [Mass/Vol] 28 mg/dL 5-40 [facility] Serum or plasma creatinine m easurement (mass/volume)Ordered By: Mehrdad Ruth on 2022 Creatinine [Mass/Vol] 0.76 mg/dL 0.55-1.02 [facility] Comment on above: The validity of the calculated GFR & GFRAA in patients over 70 years has not been determined. Clinical correlation is essential. Serum or plasma low density lipoprotein (LDL) cholesterol measurement (mass/volume)Ordered By: Mehrdad Ruth on 2022 Cholesterol in LDL [Mass/Vol] 137 mg/dL 0-130 [facility] Serum or plasma urea nitroge n measurement (mass/volume)Ordered By: Mehrdad Ruth on 2022 Urea nitrogen [Mass/Vol] 14 mg/dL 7-18 [facility] Thin prep Papanicolaou smear with manual screeningOrdered By: Mehrdad Ruth on 2022 Thin prep Papanicolaou smear with manual screening 127 U/L 15-37 [facility] Thin prep Papanicolaou smear with manual screening 6 5-15 [facility] Whole blood hemoglobin A1c/t otal hemoglobin ratio (mass fraction)Ordered By: Mehrdad Ruth on 2022 HbA1c (Bld) [Mass fraction] 7.0 % 3.8-5.6 [facility] Comment on above: Normal < 5.7 % Predi abetic 5.7 - 6.4 % Diabetic >or= 6.5 % Please note range changes. SURGICAL PATHOLOGYOrdered By : Samaria Calderón on 11-03-2022 Case Report Surgical Pathology Report Case: [id number] Authorizing Provider: Rosy Esteban MD Collected: 11/01/2022 12:58 PM Ordering Location: Ambulatory Surgery Received: 11/01/2022 09:08 PM Pathologist: Samaria Calderón MD Specimens: A) - SMALL INTESTINE BIOPSY, r/o celiacs B) - ANTRUM (STOMACH) BIOPSY, r/o h pylori C) - STOMACH (GASTRIC) POLYP BIOPSY, polyps D) - ESOPHAGOGASTRIC JUNCTION BIOPSY, junction at 35cm r/o barretts E) - COLON RIGHT BIOPSY, r/o microscopic colitis F) - COLON LEFT BIOPSY, r/o microscopic colitis [facility] Work Phone: Diagnosis Comment u1pylIWiJBZipJAbETCv OKx rlYpFYJpxIHkG8PadnedFVfa LM9wEI1jrWvvhOVmsXSkPNNq RuSpx6vap217mFPmv8qqRMSY yqbgwDc0mHpcU83jo9X6Wlku M00bjGRiYUF1QEMeFADroABj ZYNzXFY7IZXdiKVoI7drSTBk NF4cmqmjCCbmDFjmSAWdqHA5 RTVddBEaW4VeOKAbRMwgFGQn swn2HyQdTs4hhQLccEyyOGpa BDUrLWCeZEjnZMYmUpFkEC9e AFtaGQzxv4KglZ8vpDteyT6w gWAqQxJdoAVrKLCsAGMrER4j rZWyQZ7gIJ2stt1zlQGpoLDc TwUbreOhxQA6ZDPrFBEdKN8t oC9ckE2mINL4nT03azEwrkYf vE9hlS3ufyEjR4Vnz9OfOONv m5Ruf2IafathbE7eBPfoXXWs eBDmUbMbbHCoWCM7qM6sgPpc HRPviJ2ouTOvPGUzRQI8pfa2 pGKhHYuePEGeX4EytaohgUGp wpUoK6Qrc0YkRNWkpwWrjIL7 RS4sb6Tuu4r4kYKtFRClnGPa t6ScoUj3IEKmFRRiiUhmvdBi l54rJJPdt5IvdY6iaG44x4ry syXqY7HbOUFidpAZmn8yqdlq ZGIqy5Lbz8SkZDNrHPP2jGXf CVVtdcCyvP1hkNWvzGBmtAji xvHqBH3tdb5etSBte2iyJAgc OF54zB0fkvOrSZ7oMEDucmzu VMsvqjQePVCjxjubh0AectDg biBJSSByZWNlcHRvciBhbnRh X69qjJU5byapUTOeHyhcGRKy m05mDZ64lYPuhc1qI57cqqYu NSPsg53qc0w3xDF9fWJdrCL1 mFHpaWqeCVOtfT2cA0OtOMii d9AodgeqRV3oCQJuws7iy6xd SqHofVHapPHnWTymDROcW88q bWVuZGVkLlxwYXJ9 [facility] Work Phone: FINAL DIAGNOSIS n4sghOHyFBHhzCZyXOAy NVxh gpPaXISfhXJxM6PnqpttKTbp VK9dOT2hlBmkmEHvmSPfYLKf PzCgy3lwe648kRUcx4mdAFPO lqqfnXa6cPtjR30du6I2Almu P15ojMUmADY4IYHfJPXffHVq MUBsLOV7VNXmpXJrP9joPMXf QZ9jwesrUYhkVIavUXAlbCH6 LKJfqXCiD6SkTFLdQIyxXCIe utw3RqDySh4bgYXnzSmvGUud FAWgDWDgEGlkKFJmKyJrAG7z O70seUfqsY34WCT2jH2cLNNe zY5rv8q1JLagpvKuFADJiT3d HH9dvDKczWYly9Vrn5k1wABh lzThdhGuN4IvywgmcB37mvLr slUblVZvH7V9rvJhZH5eBHcr wKWiQFHdsHjqlWtuuOMemX0v eJ6rjKSde6jjQLKvSIHiK59x kQPivM7wcTtjUHpycK1iMTYb OOU2m44tJ0fkFZXqwMP0tXtj OjpzrNS5QxgckV7gMN1yUqWc I5DpovXqK4KswIJheLF9gYpb t9b6vJJpcUsmYCObfz0enKOu oA0xT4WyhdJdR6MbgINjiWpl CjfiqT1fHF8jFf4duK36YBE9 vU0bfVGqKRJmaNgje4kgUC8k IN6gqbXoe5sfR5qfRQD7lMQa bbViGK9aFQrwYRuaqNodg1Cg W7NorzJytRqlwjwvjPAnTW8m T0NasKGfhx9hvOziMStgaK0i QKFwGJO8o94cJ2vpTBFsmQia AYVloS0mn0h2WXqnfkPmKHZI aT5ltVEkZ3lruuQkvU5vnEHe XGxpbmVcbGluZSBELiBHYXN0 kl4zz49btOOsYTRoLTh2wkY6 bF6kEKOhPKThhIzoUwrmxNW7 EzbpdR6qOO7kL8O3ZB4zaGWj TXWdxDwbC9IrpBBbaNKgw4Xb GJ6wVX5dpGGsbFEsckXaMY5s PYStEWJ3ygjoVULbdmXaw9C4 whFeRu17lAMqWE98F32lJHN7 gRBnESPeGGJ1cVOwWTYeoKXf CWsnKLpkO0iiuagkapmkohTf JHArocHxVo5pFJbhjGDqcYzu ODpdyAS3LTSdHFAiQJ1guVzn LOhaoS9xKVPyDLKueW6xQAGl pVlrsMnwIcvrpLM1ZqajjN9t LQ6aA93xg13iPmKtpDBxc3Ru k6c4nNEnwmWhtIbkzXWnD7Qh kXZvVRIgb9wcZ6ynEGQkAF6v LZ3tkTqsYRzlsM9tKUHtSSLu zK6cUGJjWPL6MQZjrZ0cu2w7 JMexmuFxNIJSo6mpgsuaWX24 O37pHOE7gTEmEU8zZRWtX32z VgpwVQ11NJYqvMevoN1usHOi N5yppfqkFeuyFON3 [facility] Work Phone: Gross Description h4gisYOpINEahBNOSLCz MDRc PT8irJdskCd2pIbkUGVtzdA6 yOMuNGnus8dkWCR4e3usaaTQ ClxkZWZmMVxwYXBlcncxMjI0 WViyQPLobgjnGKm0WTiwXTXq qLT6YAVtfNEuB2YsHVBxBJ2x pnj6WVQ4ICzrIGZhRmO0CEVa QgMdWpsvGWh8TBVwqmN2Ejf6 ZEQsHGAqoRMui7O9JXcqwbau RTHqfDZfC992EBwyb2QldQGc DQpccGFyZCANCntcKlxlcGlj h3JgtPNcSRypEVAtKBVlLPns gvbiLYm5VXNkVNqzsNZlSD0n eHqnDiwfnCaeu8SwgNOrLMmd KISvJEEaQLegGXPzDW2LXsTs BOF1KHQyTCF8JkK6SCr5VRVV XsDhSgStGml8KBVyFOZkPLf6 JHc6PJxVFoP7ALOhODPaAKC9 CDQ9EGK2VEhbyONoYIgmQuCN ujscsUZyAGBtWCtlusX4ARTg YWluIEEuIFNNQUxMIElOVEVT XZdSMYPTFX0ZJ5sddFWrGE5D SVSrmIDYNAJ4CE1wKSGCMusx sKCuHZJzhBufGVebiR4gGR7B AHj5dwYlHYFvRsJlWzBcUEe3 NUOktG8qTb2iqEZvyL3wBBOu EN50nMRvfZfuSCTvKFUmphVk JdP4DQ8zSrYas59dKJCuViFa wQbnc7LnUJYjL9VbK5A7dJ5x TZIcVFEfDmI7JCJpZqA9JCRs NoVjhF6vUW46HDcopXUuvQUz iXN1YSHntD8wb54vBCRqc2Qf gTZhSapfuI7dGQ0AIPNpoDHX EZR4DG5nNFu0UOiuABEbD7Jt E5DvnxOunLDaNPOxqfToo2ri ROE2DUFgpHUtkNKcTsRvOkdc YRV5UGDuBYkfTI3Nw8ulBDOl gHNmHMZ8CJhmbYEtCRIsTTYw EMxoLzHbK9IXPYHnPtLlMTSf EBzvUBv5OYj4SQ7UJqIaOGUp DbW0FVVwSTQuVSm0TZcnWB8T VXq2MWOaJKRuXgRoQZMjOGSp IPh5JLBhVBinDQXmpVNoABfj TpkjUBrzK14hgCpykB2kVsQf LcuorLTswbWAZqMHBnNUBP1l BGEMJ04XO1msWPZBP7NMHBkz YGXpUYlkQNUrO57ot4PYu2Ay OS2QKXk1hvTdscoubB7vSDRv adVuSBcnjDTmM8prDvMwXUAM ELMatGSgRWKyqoVgr4KyUCma biBhcmUgdHdvIHBpZWNlcyBv SlE1CT4xIyOck84uJWAsSoXh tXrjx8JtBVZhY4WjD6K2bW0t JLImNKTgFFP7EUWeGnV6TAXp NjFszB7kUS23ZXeaaLQxuGRs eHB4TRGlmH2vc00nBPVyh5Ey hJFdLaguvR6xNX1OEUAuzWRA OAX8BX3kNZs2USytGADuS2Xg X9SezvFttFFlGOCrzwKzt1aw OQK9MMRqeJSlcJEsZeFaEwjn IEO4PBUxHKktTQ2Gn8vlFZGc uWKhELL3DMrtqDCjCXRzGQNz HVcaSlUbX9DVXTEsOdIhJPYs BDibGPg7NXf2AJ3JCrNbKURp NuC2KFQmWRLlHWm0OVjeXD0A DAd2ZVRkZIH4FBOcMBPxWCSf JBl7BIKeOJeiQWIcyUXbDOgh ZdmtUQiwI66meRzmlV1hIvMy PlfkrKBvojINIaRUUX5PJYTD UNgHKBFUXhbXINXAA9eIWFWZ TA9RI2igzTLlYZ9DZDDikTLH TSP5YX2jEMCRTuegqAQiHATw uJzuAKvmaU1kJH8UZEt4ugNp DZLaWiQaOhPrJTp5WZDuoK7x Hf6mmZWskW6kqJAus79wEJWn RAJwCI0gWUFnxg2qlv85ckkx p67jzPS8eLOrhVKpgWWtk8In nT8fWNNjAbI7SOTmBzW4AQTt AzEecE2dFG80NXjagAZxrXYr aWL2RSYfpG7ug72bUZGwk0Jz dHRlLiBcbGluZSANClxlcGlj JeKkoPMtLoFlgkL5DPNpcXHu NRD5YD3rEJLvmnopUZYbQUOt BNJ1KWihyM60qZIzUAXbATFy cGFyfVxwbGFpbiANCntcKlxl jMnpy5EorKOrNAejPDOcXRBn PKadEPHwZN7GFvInKCR7GJZd VHK4RnF0VQt1ZGGKIhFmXvBd Bwk4SMIcNOXeLJg3BAm1KFhF DmW5URYqERVnVds8YWF3GLJ5 IFxcdCAyIFxcZiBBcmlhbCBc HTTnKEqajqW2MAVdRWlyZRVn YAZozNbkqE0sVR1gONMLWKzN K02NCIHRQkmTZHnPWvQOZV4R WYSIF5UNSOidWZJmXUbfCKCf X05mw4SBs7EaWO2UZKk2wuDe najxxS6oTGYydoDyMQzubFKc J9vlRzXrEWQLXSBviIByQNEm bkEhs0WbCAypmvDdvsYdeCyh ANXdNWItmbWrVnS2ZA8bvIvc iuqmh97gyRQ6lDWhzQYtKZqo xuMjHWLbsnxzhN8kYJ41NFjg AK8lPKkuUH1zLUQiNdLVo0Il lYp4WCA6Qr2xdLSdHJOsusWm duQbD5Kwn2U1sAAtANuotcQh QEfvDZZfJ61ev2YGc6OcKOTe x5rqlAaff5IdjGPfEUyxAQMh eMPzFHqssZ8zNeFvc4attBp6 JGanfpJ5BYQlfk5rhLlmxA1q KZw6CBayJSCzA9NlJ7XmDPjy WGP6EIOyGfZwAFHmZHTMThYx VkIrTHY7PWC3ZdEyOJf7FHis D6AJCBAvGNE7RBFdBKo7DfU1 SMl8VSZISw2lBMohIkX0EGHr XHC4YPFlIKRrRYOzLzRnDGPt ZPNaHAfhAXeqzWYeCI7ipJry gKNapllmryU8WSNeZGnlYLXa QUVHIR5DVUTRH7wOBBDLJ2AS UJviPDVvBSliEOFlN47bf2FZ r3ZjNR1MMPg0zvMybwnomW8z GXUscaVjBWrezMMkJ1ibMtPp SIVNDCXjqASaGDYllzYed9Bw YWxpbiBhcmUgdHdvIHBpZWNl fgXqUtC8XE3pArQns57jHLNc QyZeyPahg7GcVEXtQ6DtF6U7 oA4zJNNtWJNfVQS7UABtXjQ4 ZSJxATPtzH1mGG81HTjnhPXb cGMrlHZ6GZYfxP7zx68fQNJg h1LfyYIgSwmjgZ7sSS4BGHWb rWJQASB4MM0tHWw2DWysYTUm C6MfI3DzagSzhDNiCKWscwUp i8laCRN1XMHwfMPriTMoTqBt EfykINE8GYHjMHbbRQ1Or8pc USUyjAHtUKW7LFqnhSVmFFLn EDGjARxaQhYlH7FUPOKoNgCk YZIqNMvcVWo4VNm9DF5ZCyDl IVBkToF7HGX4KnMqUWn5QNdd JE4AWMl0WCRhUZZjYYXpRGJs WWHwCGg0HYQcZDidKOIdfXNn ZKqyLcndZPpxR53pxUmxyP1a UoXgAvlaxBEjgtQGUuJFN8jB JgADHUZSDHFJO7CNLWehSXZx PKcvOQRqD26qt1KLf6RiKZ1D PTk6upEgvqdloB3yHKBhxeOf HUiagHQeN8vnJhWjKQBYRJMi pPGcZBUnxzXku0FyPIhsblSz jsZaeZPzpYhjnZLwfDohL5Mc FR1nOJCcdj4mix73crbkl32f mEQ2bHSmeQTpWSnksoAqOYEv muchdQ9tQG2bPVafZI5qWHjh TI5eQPKkJmZOc9EpdIw0FUQ3 Os9vhXCwDGYpvsYzmkWnF1Hp x0K1iXFfXTvjsxYkAIvlIKOm DOlzcWRkXO0EU8itZeKtbwYz cnkgMjIsIDIwMjMgMjozNCBB TVx+XHBhciANClxwYXIgDQpH dq5iveNvoMCzrG6ecCqnzxVd VXEmv9TrVWAyNINbZ0owlwVh RD4aQXKlhX9hZfbkPUPgGLJY fMXmbSJqAMOqDrkkJ1qktiCq WK5nIPHTOGT6MSM0ZQyeFUZo EBykJZMtQ52ul2RBf7NpCHJe j5adcRdon5LsvIXtCVcpZBWl aEMaIBveaA3pKyBkh9uouAs1 KYgiisL0ESWenx2dkHtpcH1x BDmdr9sjBBQ9DRYkfYHjcEHn OYoypUnzbC0sQyCkYvv2RYab WJQkV6DdX8PvkbS6EXYtDThz XGZzMTYgDQp9 [facility] Work Phone: Performing Lab y2jriFKdHMKdlUHiJkDr MDAw IBSho7oqLYUjwKRkHdXrMgEk WwYmAuxuoVLzCULzDbMmn0lf s355fCYqa6wbNOMxHwC7vFOt WQBewYVvR871FDQcTEjxm3nf q6PqWHLwmKAnt9I4IVMKemqp aAw6iEywA28iu9H9AbtqH8zr KWRrCBNzU2SnIF7oSRWeGho4 GRF5DPP2TDAcWBAxF1FuAK2w JXQquMMyOMu3q3smhEzmZAQk VMJ4s1uzUElaagYlID2zke9t wRe8d5immxFwOOMpXPQakNBF DURiE8UfbZnpRh7jtDm1rEen BtefDQR9Jvw0OS6who87dkh1 uEmbQPSmluzcWvD0OWmzHZDu tcjiBEn9DTewOJPccWC7PWSa oZQaN5HlALvpNX5twfn6RHQ8 VJsxEPArUeK3VNNymKLnQYQv nUndUCdcy144DMK8EcJgEK5w P1Yns6T7jI9ixSGbMXOygAUs DdJjUTOttr7mlDMtNGank6Yl KPF4dbC7sTQzbQGdUIVgZQ70 Gyomx7PhRfuzf1CoD90gwFQ0 JHnnb7miBQ7sSzT4ojFfQFnc c5jmkN1bAgH3WYrySP4fBO6j DFPhpI8zdjvmWWAkZpPueygc XMQbdRyrdmPpEc8pfDcmKBI6 LNdsA2owoW3xBwH4EEbwX3zj mM7oARj3IUmeqYD5QQNwmM4n VH3tkefvy7kgUUlmUNysSTBf yjU6hmQcUPIylRKlB0NzzM8e MHYyRA0pjhyak7tcWGM1BPiy DCKnKJD7EzYnNVPqu1Qpyxh8 ZtJuy8RtaGLeDPezX40jj728 SXZqdiXtI1axjHIaeitjsUOh okbbIEgbrfK5DJQcHJWfKJnm XGYxXGZzMjJcbGFuZzEwMzNc aGljaFxmMVxkYmNoXGYxXGxv S5klFcMdRxHpTgOIuJArfx5d iSpaNBlvdXWygZDsaQK2pA7h HYCkabVjmq7eOGFmiOMQsVK6 OCahlhLpF4xhdwobPAV9WGZp OCH1X9rxGKFKjrHzJJEhIDGh bFPxBCXOSDS6XDG9YDVeUUDD ASVuEPT7IUN7ESGdHSUvjFFc XHBhclxwYXJkXHBsYWluXGYw JNUpIyPowDmhmL3dEiQoBqUv VzdvGS7cFNYxJ7oedUJhNKZc AEYoG2mvWaGehI2mzLevVEnm ZjJcZnMyMlxsdHJjaCBMYWJv cjP1u4W5PBldlNHofmwcCVqp hvAsJJyjxouqUFFgYYgnM0xd KeEiBTXdcRscDMrvo1YgHKMf JPXlGdPvXTxqVKY0q9Q5QXgi cDVwwiJVAbUCOW6dqZNbfmxy CZ0EOcbuKQS2 [facility] Work Phone: [facility] Work Phone: EGD Study observation Narrat rossana 11-01-2022 [facility] Gastroenterology Gastrointestinal Endoscopy Patient Name: Alexandra Bella Procedure Date: 11/01/2022 1:01 PM Date of : 1955 Admit Type: Outpatient Age: 66 Room: [facility] 1 Gender: Female Note Status: Finalized Attending MD: Rosy Esteban MD Procedure: Colonoscopy Indications: Last colonoscopy: April 2020, Chronic diarrhea, Recent attack of diverticulitis. Providers: Rosy Esteban MD Patient Profile: This is a 66 year old female. Refer to note in patient chart for documentation of history and physical. Referring Physician: Leonora Davalos NP (Referring MD) Medicines: Midazolam 1 mg IV Complications: No immediate complications. Requesting Provider: Procedure: Pre-Anesthesia Assessment: - Prior to the procedure, a History and Physical was performed, and patient medications and allergies were reviewed. The patient's tolerance of previous anesthesia was also reviewed. The risks and benefits of the procedure and the sedation options and risks were discussed with the patient. All questions were answered, and informed consent was obtained. Prior Anticoagulants: The patient has taken Eliquis (apixaban), last dose was 3 days prior to procedure. ASA Grade Assessment: III - A patient with severe systemic disease. After reviewing the risks and benefits, the patient was deemed in satisfactory condition to undergo the procedure. After I obtained informed consent, the scope was passed under direct vision. Throughout the procedure, the patient's blood pressure, pulse, and oxygen saturations were monitored continuously. The Colonoscope was introduced through the anus and advanced to the terminal ileum. I was present and participated during the entire procedure, including non-alvarez portions, and during the administration and monitoring of Moderate Sedation. The colonoscopy was performed without difficulty. The patient tolerated the procedure well. The quality of the bowel preparation was good. The quality of the bowel preparation was evaluated using the BBPS ([place] Bowel Preparation Scale) with scores of: Right Colon = 3, Transverse Colon = 3 and Left Colon = 3 (entire mucosa seen well with no residual staining, small fragments of stool or opaque liquid). The total BBPS score equals 9. Scope Withdrawal Time: 0 hours 6 minutes 25 seconds Moderate Sedation: The administration of moderate sedation was initiated at 12:47 PM. Findings: The perianal and digital rectal examinations were normal. Pertinent negatives include normal sphincter tone and no palpable rectal lesions. The terminal ileum appeared normal. Multiple medium-mouthed diverticula were found in the sigmoid colon. There was evidence of diverticular spasm. Asya-diverticular erythema was seen. Petechia were visualized in association with the diverticular opening. There was no evidence of diverticular bleeding. The exam was otherwise without abnormality. Biopsies for histology were taken with a cold forceps from the right colon and left colon for evaluation of microscopic colitis. The retroflexed view of the distal rectum and anal verge was normal and showed no anal or rectal abnormalities. Impression: - The examined portion of the ileum was normal. - Mild diverticulosis in the sigmoid colon. There was evidence of diverticular spasm. Asya-diverticular erythema was seen. Petechia were visualized in association with the diverticular opening. There was no evidence of diverticular bleeding. - The examination was otherwise normal. - The distal rectum and anal verge are normal on retroflexion view. - Biopsies were taken with a cold forceps from the right colon and left colon for e (more content not included)... [employer] Radiology Study observation (narrative) [facility] Flexible sigmoidoscopy study on 11-01-2022 [facility] Gastroenterology Gastrointestinal Endoscopy Patient Name: Alexandra Bella Procedure Date: 11/01/2022 12:19 PM Date of : 1955 Admit Type: Outpatient Age: 66 Room: [facility] 1 Gender: Female Note Status: Finalized Attending MD: Rosy Esteban MD Procedure: Upper GI endoscopy Indications: Gastro-esophageal reflux disease, Last EGD 04/2020. HP negative. Takes Omperazole and Carafate. Providers: Rosy Esteban MD Patient Profile: This is a 66 year old female. Refer to note in patient chart for documentation of history and physical. Referring Physician: Leonora Davalos NP (Referring MD) Medicines: Fentanyl 100 micrograms IV, Midazolam 6 mg IV Complications: No immediate complications. Requesting Provider: Procedure: Pre-Anesthesia Assessment: - Prior to the procedure, a History and Physical was performed, and patient medications and allergies were reviewed. The patient is competent. The risks and benefits of the procedure and the sedation options and risks were discussed with the patient. All questions were answered and informed consent was obtained. Patient identification and proposed procedure were verified by the physician and the nurse in the procedure room at 12:43 PM. Mental Status Examination: alert and oriented. Airway Examination: normal oropharyngeal airway and neck mobility. Respiratory Examination: clear to auscultation. CV Examination: normal. Prophylactic Antibiotics: The patient does not require prophylactic antibiotics. Prior Anticoagulants: The patient has taken no anticoagulant or antiplatelet agents. ASA Grade Assessment: III - A patient with severe systemic disease. After reviewing the risks and benefits, the patient was deemed in satisfactory condition to undergo the procedure. The anesthesia plan was to use moderate sedation / analgesia (conscious sedation). Immediately prior to administration of medications, the patient was re-assessed for adequacy to receive sedatives. The heart rate, respiratory rate, oxygen saturations, blood pressure, adequacy of pulmonary ventilation, and response to care were monitored throughout the procedure. The physical status of the patient was re-assessed after the procedure. After obtaining informed consent, the endoscope was passed under direct vision. Throughout the procedure, the patient's blood pressure, pulse, and oxygen saturations were monitored continuously. The Endoscope was introduced through the mouth, and advanced to the second part of duodenum. I was present and participated during the entire procedure, including non-alvarez portions, and during the administration and monitoring of Moderate Sedation. The upper GI endoscopy was accomplished without difficulty. The patient tolerated the procedure well. Moderate Sedation: The administration of moderate sedation was initiated at 12:47 PM. Findings: The Z-line was irregular and was found 35 cm from the incisors. Biopsies were taken with a cold forceps for histology. The examined esophagus was normal. The entire examined stomach was normal. Biopsies were taken with a cold forceps for histology. Multiple 5 to 12 mm sessile polyps with no bleeding and no stigmata of recent bleeding were found in the gastric body. The polyp was removed with a cold biopsy forceps. Resection and retrieval were complete. The cardia and gastric fundus were normal on retroflexion. The examined duodenum was normal. Biopsies for histology were taken with a cold forceps for evaluation of celiac disease. Impression: - Z-line irregular, 35 cm from the incisors. Biopsied. - Normal esophagus. - Normal stomach. Biopsied. (more content not included)... [employer] Radiology Study observation (narrative) [facility] Absolute lymphocyte countOrd ered By: Tanya Hutchins on 09-16-2022 Lymphocytes Auto (Unsp spec) [#/Vol] 3.32 10*3/uL 0.83-4.51 [facility] Albumin Elph [Mass/Vol]Order ed By: Tanya Cuong on 09-16-2022 Albumin [Mass/Vol] 3.4 g/dL 2.9-4.4 [facility] Atypical perinuclear antineu trophil cytoplasmic antibodies measurementOrdered By: Tanya Hutchins on 09-16-2022 Neutrophil cytoplasmic Ab.perinuclear.atypical IF (S) [Titer] <1:20 titer Neg:<1:20 [facility] Comment on above: The atypical pANCA p attern has been observed in asignificant percentage of patients with ulcerative colitis,primary sclerosing cholangitis and autoimmune hepatitis.Performed at: - [facility] [id number] Director: Simba Baltazar PhD, Phone: [phone] at: - [facility] [id number] Director: Alla Silver MD, Phone: [phone] Basophil percentageOrdered B y: Tanya Cuong on 09-16-2022 Basophil percentage < 0.2 AI 0.0-0.9 [facility] Basophils/100 WBC (Bld) 0.5 % 0-1 [facility] Bilirubin [Mass/Vol] 0.40 mg/dL 0.20-1.00 [facility] Comment on above: For patients on eltr ombopag therapy, use of Dimension [place] TBIL is not recommended. Chloride [Moles/Vol] 110 mmol/L 98-107 [facility] Eosinophils/100 WBC (Bld) 1.2 % 0-5 [facility] Glucose [Mass/Vol] 168 mg/dL 74-106 [facility] Comment on above: Fasting Glucose resu lt greater than or equal to 126 mg/dL suggests DIABETES MELLITUS per A.D.A. criteria. LDH [Catalytic activity/Vol] 242 U/L 84-246 [facility] Neutrophils (Bld) [#/Vol] 3.8 10*3/uL 2.0-7.7 [facility] Neutrophils/100 WBC (Bld) 48.8 % 47-70 [facility] Potassium [Moles/Vol] 4.2 mmol/L 3.5-5.1 [facility] Protein [Mass/Vol] 8.1 g/dL 6.4-8.2 [facility] Sodium [Moles/Vol] 141 mmol/L 136-145 [facility] WBC (Bld) [#/Vol] 7.7 10*3/uL 4.4-11.0 [facility] Blood erythrocytes count (nu mber/volume)Ordered By: Tanya Hutchins on 09-16-2022 RBC (Bld) [#/Vol] 4.93 10*6/uL 4.2-5.4 [facility] Blood hemoglobin measurement (mass/volume)Ordered By: Tanya Hutchins on 09-16-2022 Hemoglobin (Bld) [Mass/Vol] 14.3 g/dL 12.0-15.0 [facility] Blood lymphocytes/100 leukoc ytesOrdered By: Tanya Hutchins on 09-16-2022 Lymphocytes/100 WBC (Bld) 42.9 % 19-41 [facility] Blood monocytes/100 leukocyt esOrdered By: Tanya Hutchins on 09-16-2022 Monocytes/100 WBC (Bld) 6.2 % 0-10 [facility] Blood platelet mean volumeOr dered By: Tanya Hutchins on 09-16-2022 Platelet mean volume (Bld) [Entitic vol] 11.4 fL 6.2-12.0 [facility] Determination of erythrocyte mean corpuscular volume (MCV)Ordered By: Tanya Hutchins on 09-16-2022 MCV (RBC) [Entitic vol] 90.1 fL 81-99 [facility] Erythrocyte sedimentation ra teOrdered By: Tanya Hutchins on 09-16-2022 ESR (Bld) [Velocity] 34 mm/h 0-30 [facility] Hematocrit Auto (Bld) [Volum e fraction]Ordered By: Tanya Hutchins on 09-16-2022 Hematocrit (Bld) [Volume fraction] 44.4 % 37-47 [facility] Interpretation of serum or p lasma protein pattern by immunofixation (narrative resultOrdered By: Tanya Hutchins on 09-16-2022 Protein Fractions Immunofixation Ray [Interp] See comment [facility] Comment on above: SPE shows an asymmet rical gamma. Laboratory - Chemistry and C hemistry - challengeOrdered By: Tanya uHtchins on 09-16-2022 ALP [Catalytic activity/Vol] 138 U/L 45-117 [facility] ALT [Catalytic activity/Vol] 186 U/L 13-56 [facility] CO2 [Moles/Vol] 26.0 mmol/L 21.0-32.0 [facility] Urea nitrogen/Creatinine [Mass ratio] 22.8 mg/mg 10-20 [facility] Laboratory - Hematology and Cell countsOrdered By: Tanya Hutchins on 09-16-2022 Erythrocyte distribution width (RBC) [Entitic vol] 44.7 fL 35.1-43.9 [facility] Erythrocyte distribution width (RBC) [Ratio] 13.5 % 11.6-14.6 [facility] Immature granulocytes/100 WBC (Bld) 0.400 % 0.0-0.9 [facility] Comment on above: IG% - Immature Granu locytes (promyelocytes, myelocytes and metamyelocytes) > 1% indicates that a LEFT SHIFT is Present. MCH (RBC) [Entitic mass] 29.0 pg 27.0-32.0 [facility] Nucleated RBC/100 WBC (Bld) [Ratio] 0 % 0-5 [facility] MCHC Auto (RBC) [Mass/Vol]Or dered By: Tanya Hutchins on 09-16-2022 MCHC (RBC) [Mass/Vol] 32.2 g/dL 32-36 [facility] No Panel InformationOrdered By: Tanya Hutchins on 09-16-2022 Stool Calprotectin 54 ug/g 0-120 [facility] Comment on above: Concentration Interp retation Follow-Up<16 - 50 ug/g Normal None>50 -120 ug/g Borderline Re-evaluate in 4-6 weeks >120 ug/g Abnormal Repeat as clinically indicatedPerformed at: BN - [facility] [address] [id number] Director: Alla Silver MD, Phone: [phone] Addendum Document Comment . [facility] Comment on above: Protein electrophore sis scan will follow via computer,mail, or prescription clerk delivery. Centromere B Antibody <0.2 AI 0.0-0.9 [facility] Endomysial IgA Antibody Negative Negative [facility] Estimated GFR (MDRD) Amer 88 mL/min >60 [facility] [facility] Comment on above: GFR Calc Estimated GFR (MDRD) Non-Af Amer 73 mL/min >60 [facility] Comment on above: Non- GFR Calc Immunoglobulin E 36 IU/mL 6-495 [facility] Miscellaneous Test See comment [facility] Comment on above: TEST RESULT LIMITSIB D Expanded PanelgASCA 0 units 0-50 Negative <45 Equivocal 45 - 50 Positive >50ACCA 35 units 0-90 Negative <80 Equivocal 80 - 90 Positive >90ALCA 15 units 0-60 Negative <55 Equivocal 55 - 60 Positive >60AMCA 23 units 0-100 Negative < 90 Equivocal 90 - 100 Positive >100 This test was developed and its performance characteristics determined by [facility]. It has not been cleared or approved by the Food and Drug Administration. The FDA has determined that such clearance or approval is not necessary.Atypical pANCA Negative NegativeCommentsPattern is not suggestive of Inflammatory Bowel Disease. ____ TESTING PERFORMED AT [facility]. ORIGINAL REPORT ON FILE IN LAB CONTAINS ADDITIONAL TEST SITE INFORMATION. GLOVE MAKER Antibody 0.6 AI 0.0-0.9 [facility] Platelets bldOrdered By: Yasmin Hutchins on 09-16-2022 Platelets (Bld) [#/Vol] 232 10*3/uL 150-450 [facility] Serum DNA double strand anti body assay (units/volume)Ordered By: Tanya Hutchins on 09-16-2022 DNA double strand Ab Qn (S) [IU]/mL 0-9 [facility] Comment on above: Negative <5 Equivoca l 5 - 9 Positive >9 Serum Hailee-1 antibody assay (u nits/volume)Ordered By: Tanya Hutchins on 09-16-2022 Hailee-1 extractable nuclear Ab Qn (S) <0.2 AI 0.0-0.9 [facility] Serum Scl-70 extractable nuc lear antibody assay (units/volume)Ordered By: Tanya Hutchins on 09-16-2022 SCL-70 extractable nuclear Ab Qn (S) <0.2 AI 0.0-0.9 [facility] Serum Razo extractable nucl ear antibody detectionOrdered By: Tanya Hutchins on 09-16-2022 Razo extractable nuclear Ab Ql (S) <0.2 AI 0.0-0.9 [facility] Serum [id number] measu rement by electrophoresisOrdered By: Tanya Hutchins on 09-16-2022 Alpha 1 globulin Elph [Mass/Vol] 0.3 g/dL 0.0-0.4 [facility] Alpha 1 globulin Elph [Mass/Vol] 0.9 g/dL 0.4-1.0 [facility] Serum classic neutrophil cyt oplasmic antibody assay (units/volume)Ordered By: Tanya Hutchins on 09-16-2022 Neutrophil cytoplasmic Ab.classic Qn (S) <1:20 titer Neg:<1:20 [facility] Serum globulin measurement ( mass/volume)Ordered By: Tanya Hutchins on 09-16-2022 Globulin (S) [Mass/Vol] 4.1 g/dL 2.2-3.9 [facility] Serum or plasma C reactive p rotein measurement (mass/volume)Ordered By: Tanya Hutchins on 09-16-2022 CRP [Mass/Vol] mg/L 0.0-3.0 [facility] Comment on above: C-Reactive Protein ( CRP) provides useful information for thediagnosis, therapy and monitoring of inflammatory processesand associated diseases. For the evaluation of Relative Riskfor Cardiovascular Disease, a High Sensitivity CRP (HSCRP)should be ordered. Serum or plasma IgA measurem ent (mass/volume)Ordered By: Tanya Hutchins on 09-16-2022 IgA [Mass/Vol] 351 mg/dL 87-352 [facility] Serum or plasma IgG measurem ent (mass/volume)Ordered By: Tanya Hutchins on 09-16-2022 IgG [Mass/Vol] 1366 mg/dL [phone] [facility] Serum or plasma IgM measurem ent (mass/volume)Ordered By: Tanya Hutchins on 09-16-2022 IgM [Mass/Vol] 212 mg/dL 26-217 [facility] Serum or plasma albumin shamir urement (mass/volume)Ordered By: Tanya Hutchins on 09-16-2022 Albumin [Mass/Vol] 3.7 g/dL 3.2-5.0 [facility] Serum or plasma albumin/glob ulin mass ratioOrdered By: Tanya Hutchins on 09-16-2022 Albumin/Globulin [Mass ratio] 0.8 {ratio} 0.9-2.4 [facility] Serum or plasma beta globuli n measurement by electrophoresis (mass/volume)Ordered By: Tanya Hutchins on 09-16-2022 Beta globulin Elph [Mass/Vol] 1.6 g/dL 0.7-1.3 [facility] Serum or plasma calcium shamir urement (mass/volume)Ordered By: Tanya Hutchins on 09-16-2022 Calcium [Mass/Vol] 9.8 mg/dL 8.5-10.1 [facility] Serum or plasma creatinine m easurement (mass/volume)Ordered By: Tanya Hutchins on 09-16-2022 Creatinine [Mass/Vol] 0.83 mg/dL 0.55-1.02 [facility] Comment on above: The validity of the calculated GFR & GFRAA in patients over 70 years has not been determined. Clinical correlation is essential. Serum or plasma gamma globul in measurement by electrophoresis (mass/volume)Ordered By: Tanya Hutchins on 09-16-2022 Gamma globulin Elph [Mass/Vol] 1.4 g/dL 0.4-1.8 [facility] Serum or plasma immunoelectr ophoresis interpretation (nominal result)Ordered By: Tanya Hutchins on 09-16-2022 Interpretation IEP [Interp] Comment: . [facility] Comment on above: Presence of monoclon al protein is unclear at this time. Suggestrepeat in 3 to 6 months if clinically indicated. Serum or plasma urea nitroge n measurement (mass/volume)Ordered By: Tanya Hutchins on 09-16-2022 Urea nitrogen [Mass/Vol] 19 mg/dL 7-18 [facility] Serum perinuclear neutrophil cytoplasmic antibody titer by immunofluorescenceOrdered By: Tanya Hutchins on 09-16-2022 Neutrophil cytoplasmic Ab.perinuclear IF (S) [Titer] <1:20 titer Neg:<1:20 [facility] Comment on above: The presence of posi tive fluorescence exhibiting P-ANCA orC-ANCA patterns alone is not specific for the diagnosis ofWegener's Granulomatosis (WG) or microscopic polyangiitis.Decisions about treatment should not be based solely onANCA IFA results. The [employer] ANCA Group Consensusrecommends follow up testing of positive sera with both TX-3 and MPO-ANCA enzyme immunoassays. As many as 5% serumsamples are positive only by EIA. Ref. AM J Clin [id number];111:507-513. Serum tissue transglutaminas e IgA antibody assay (units/volume)Ordered By: Tanya Hutchins on 09-16-2022 tTG IgA Qn (S) <2 U/mL 0-3 [facility] Comment on above: Negative 0 - 3 Weak Positive 4 - 10 Positive >10 Tissue Transglutaminase (tTG) has been identified as the endomysial antigen. Studies have demonstr- ated that endomysial IgA antibodies have over 99% specificity for gluten sensitive enteropathy. Stool lactoferrin detection by immunoassayOrdered By: Tanya Hutchins on 09-16-2022 Lactoferrin IA Ql (Stl) [facility] Thin prep Papanicolaou smear with manual screeningOrdered By: Tanya Hutchins on 09-16-2022 Thin prep Papanicolaou smear with manual screening 127 U/L 15-37 [facility] Thin prep Papanicolaou smear with manual screening 5 5-15 [facility] Thin prep Papanicolaou smear with manual screening 0.9 0.7-1.7 [facility] Total protein bloodOrdered B y: Tanya Hutchins on 09-16-2022 Protein [Mass/Vol] 7.5 g/dL 6.0-8.5 [facility] EP PanelOrdered By: Dr. Reilly koo on 08-28-2022 Gastrointestinal pathogens panel WINSTON+probe (Stl) [facility] Absolute lymphocyte countOrd ered By: Dr. Donis on 08-27-2022 Lymphocytes Auto (Unsp spec) [#/Vol] 3.05 10*3/uL 0.83-4.51 [facility] Amorphous sediment detection in urine sediment by light microscopyOrdered By: Dr. Donis on 08-27-2022 Amorphous sediment LM Ql (Urine sed) 1+ [facility] Basophil percentageOrdered B y: Dr. Donis on 08-27-2022 Basophil percentage 0-5 SEEN /hpf 0-5 [facility] Basophils/100 WBC (Bld) 0.4 % 0-1 [facility] Bilirubin [Mass/Vol] 0.50 mg/dL 0.20-1.00 [facility] Comment on above: For patients on eltr ombopag therapy, use of Dimension [place] TBIL is not recommended. Chloride [Moles/Vol] 108 mmol/L 98-107 [facility] Eosinophils/100 WBC (Bld) 2.0 % 0-5 [facility] Glucose [Mass/Vol] 129 mg/dL 74-106 [facility] Comment on above: Fasting Glucose resu lt greater than or equal to 126 mg/dL suggests DIABETES MELLITUS per A.D.A. criteria. Neutrophils (Bld) [#/Vol] 3.8 10*3/uL 2.0-7.7 [facility] Neutrophils/100 WBC (Bld) 49.5 % 47-70 [facility] Potassium [Moles/Vol] 3.9 mmol/L 3.5-5.1 [facility] Comment on above: Moderate Hemolysis, Result may be falsely increased. Protein [Mass/Vol] 7.6 g/dL 6.4-8.2 [facility] Sodium [Moles/Vol] 136 mmol/L 136-145 [facility] WBC (Bld) [#/Vol] 7.7 10*3/uL 4.4-11.0 [facility] Bilirubin Test strip Ql (U)O rdered By: Dr. Donis on 08-27-2022 Bilirubin Ql (U) 1 mg/dL Negative [facility] Comment on above: COLOR OF URINE MAY A FFECT DIPSTICK RESULTS. Blood erythrocytes count (nu mber/volume)Ordered By: Dr. Donis on 08-27-2022 RBC (Bld) [#/Vol] 4.71 10*6/uL 4.2-5.4 [facility] Blood hemoglobin measurement (mass/volume)Ordered By: Dr. Donis on 08-27-2022 Hemoglobin (Bld) [Mass/Vol] 14.0 g/dL 12.0-15.0 [facility] Blood lymphocytes/100 leukoc ytesOrdered By: Dr. Donis on 08-27-2022 Lymphocytes/100 WBC (Bld) 39.7 % 19-41 [facility] Blood monocytes/100 leukocyt esOrdered By: Dr. Donis on 08-27-2022 Monocytes/100 WBC (Bld) 8.1 % 0-10 [facility] Blood platelet mean volumeOr dered By: Dr. Donis on 08-27-2022 Platelet mean volume (Bld) [Entitic vol] 10.9 fL 6.2-12.0 [facility] Determination of erythrocyte mean corpuscular volume (MCV)Ordered By: Dr. Donis on 08-27-2022 MCV (RBC) [Entitic vol] 88.7 fL 81-99 [facility] Direct bilirubinOrdered By: Dr. Donis on 08-27-2022 Bilirubin.direct [Mass/Vol] 0.11 mg/dL 0.00-0.30 [facility] Hematocrit Auto (Bld) [Volum e fraction]Ordered By: Dr. Donis on 08-27-2022 Hematocrit (Bld) [Volume fraction] 41.8 % 37-47 [facility] Ketones Test strip Ql (U)Ord ered By: Dr. Donis on 08-27-2022 Ketones Ql (U) 5 mg/dl Negative [facility] Laboratory - Chemistry and C hemistry - challengeOrdered By: Dr. Donis on 08-27-2022 ALP [Catalytic activity/Vol] 112 U/L 45-117 [facility] ALT [Catalytic activity/Vol] 190 U/L 13-56 [facility] CO2 [Moles/Vol] 21.0 mmol/L 21.0-32.0 [facility] Globulin (S) [Mass/Vol] 4.4 g/dL 2.2-4.2 [facility] Urea nitrogen/Creatinine [Mass ratio] 18.3 mg/mg 10-20 [facility] Laboratory - Hematology and Cell countsOrdered By: Dr. Donis on 08-27-2022 Erythrocyte distribution width (RBC) [Entitic vol] 43.6 fL 35.1-43.9 [facility] Erythrocyte distribution width (RBC) [Ratio] 13.3 % 11.6-14.6 [facility] Immature granulocytes/100 WBC (Bld) 0.300 % 0.0-0.9 [facility] Comment on above: IG% - Immature Granu locytes (promyelocytes, myelocytes and metamyelocytes) > 1% indicates that a LEFT SHIFT is Present. MCH (RBC) [Entitic mass] 29.7 pg 27.0-32.0 [facility] Nucleated RBC/100 WBC (Bld) [Ratio] 0 % 0-5 [facility] MCHC Auto (RBC) [Mass/Vol]Or dered By: Dr. Donis on 08-27-2022 MCHC (RBC) [Mass/Vol] 33.5 g/dL 32-36 [facility] Mucus LM Ql (Urine sed)Order ed By: Dr. Donis on 08-27-2022 Mucus Ql (Urine sed) 1+ /hpf [facility] Nitrite Test strip Ql (U)Ord ered By: Dr. Donis on 08-27-2022 Nitrite Ql (U) Negative Negative [facility] No Panel InformationOrdered By: Dr. Donis on 08-27-2022 Estimated Creatinine Clearance Calc 44.02 ml/min [facility] Estimated GFR (MDRD) Amer 68 mL/min >60 [facility] Comment on above: GFR Calc Estimated GFR (MDRD) Non-Af Amer 56 mL/min >60 [facility] Comment on above: Non- GFR Calc Platelets bldOrdered By: Dr. Donis on 08-27-2022 Platelets (Bld) [#/Vol] 202 10*3/uL 150-450 [facility] Protein Test strip Ql (U)Ord ered By: Dr. Donis on 08-27-2022 Protein Ql (U) 30 mg/dl Negative [facility] Serum or plasma albumin shamir urement (mass/volume)Ordered By: Dr. Donis on 08-27-2022 Albumin [Mass/Vol] 3.2 g/dL 3.2-5.0 [facility] Serum or plasma calcium shamir urement (mass/volume)Ordered By: Dr. Donis on 08-27-2022 Calcium [Mass/Vol] 9.0 mg/dL 8.5-10.1 [facility] Serum or plasma creatinine m easurement (mass/volume)Ordered By: Dr. Donis on 08-27-2022 Creatinine [Mass/Vol] 1.04 mg/dL 0.55-1.02 [facility] Comment on above: The validity of the calculated GFR & GFRAA in patients over 70 years has not been determined. Clinical correlation is essential. Serum or plasma urea nitroge n measurement (mass/volume)Ordered By: Dr. Donis on 08-27-2022 Urea nitrogen [Mass/Vol] 19 mg/dL 7-18 [facility] Squamous epithelial cells de tection in urine sediment by light microscopyOrdered By: Dr. Donis on 08-27-2022 Epithelial cells.squamous LM Ql (Urine sed) 10-25 SEEN /hpf 5-10 [facility] Thin prep Papanicolaou smear with manual screeningOrdered By: Dr. Donis on 08-27-2022 Thin prep Papanicolaou smear with manual screening 103 U/L 15-37 [facility] Comment on above: Moderate Hemolysis, Result may be falsely increased. Thin prep Papanicolaou smear with manual screening 7 5-15 [facility] Urine blood detectionOrdered By: Dr. Donis on 08-27-2022 RBC Ql (U) 10 /ul Negative [facility] RBC Ql (U) 0-5 SEEN /hpf 0-5 [facility] Urine clarityOrdered By: Dr. Donis on 08-27-2022 Clarity (U) Sl. Cloudy Clear [facility] Urine color determinationOrd ered By: Dr. Donis on 08-27-2022 Color (U) Yellow Yellow [facility] Urine glucose detectionOrder ed By: Dr. Donis on 08-27-2022 Glucose Ql (U) Normal mg/dl Normal [facility] Urine leukocyte esterase det ection by dipstickOrdered By: Dr. Doins on 08-27-2022 Leukocyte esterase Test strip Ql (U) 25 /ul Negative [facility] Urine pHOrdered By: Dr. Reilly koo on 08-27-2022 pH (U) 6.0 [pH] 5.0 - 8.0 [facility] Urine sediment bacteria coun t by microscopy (number/high power field)Ordered By: Dr. Donis on 08-27-2022 Bacteria LM.HPF (Urine sed) [#/Area] 3 /[HPF] None Seen [facility] Urine specific gravity measu rementOrdered By: Dr. Donis on 08-27-2022 Specific gravity (U) [Rel density] 1.020 1.002-1.030 [facility] Urobilinogen Auto test strip Ql (U)Ordered By: Dr. Donis on 08-27-2022 Urobilinogen Ql (U) 1 mg/dl Normal [facility] Laboratory - Hematology and Cell countson 07-28-2022 HbA1c (Bld) [Mass fraction] 7.3 % 4.2-6.3 [facility] Cervical or vagninal specime n microscopic examination by cytology stain (reported asOrdered By: Dr. Jolley on 07-26-2022 Cytology report Cyto stain Doc (Cvx/Vag) Comment . [facility] Comment on above: The Pap smear is a s creening test designed to aid in thedetection of premalignant and malignant conditions of theuterine cervix. It is not a diagnostic procedure andshould not be used as the sole means of detecting cervicalcancer. Both false-positive and false-negative reports dooccur. Laboratory - CytologyOrdered By: Dr. Jolley on 07-26-2022 Detail Manager Cyto stain Nom (Cvx/Vag) [ID] Comment . [facility] Comment on above: Yeyo Almendarez ytotechnologist (ASCP) Laboratory - Miscellaneous t estsOrdered By: Dr. Jolley on 07-26-2022 Service comment (Unsp spec) [Interp] Comment . [facility] Comment on above: This liquid based Th inPrep(R) pap test was screened withthe use of an image guided system. Service comment (Unsp spec) [Interp] . . [facility] No Panel InformationOrdered By: Dr. Jolley on 07-26-2022 Human Papillomavirus Screen Comment . [facility] Comment on above: The HPV DNA reflex c naida were not met with this specimenresult therefore, no HPV testing was performed.Performed at: [address] [id number] Director: Liz Donovan MD, Phone: [phone] Pathology report final diagnosis Narrative Comment . [facility] Comment on above: NEGATIVE FOR INTRAEP ITHELIAL LESION OR MALIGNANCY. ECHOon 03-11-2022 [facility] Laboratory - Microbiology an d Antimicrobial susceptibilityon 01-25-2022 SARS-CoV-2 (COVID-19) RNA WINSTON+probe Ql (Unsp spec) Not detected Not Detect [facility] Work Phone: Comment on above: Normal Reference Ran ge: Not DetectedMethod:(RT-PCR) real-time reverse transcriptase PCRLuminex Digilab Instrument*The Food and Drug Administration (FDA) has issued an Emergency Use Authorization (EAU) for the MARCIE SARS-CoV-2 Assay for the rapid detection of the virus that causes COVID-19. This test has been validated, but the FDAs independent review of this validation is pending.*Negative results do not preclude infection and should not be used as the sole basis for treatment or patient management. Optimum specimen types and timing for peak viral levels during infections caused by SARS-CoV-2 have not been determined. Collection of multiple specimens from the same patient may be necessary to detect the virus. The possibility of a false negative result should be considered if the patient has clinical presentation or has had recent exposure. Laboratory - Chemistry and C hemistry - challengeon 11-29-2021 Free T4 [Mass/Vol] 1.72 ng/dL 0.76-1.46 [facility] Work Phone: No Panel Informationon 11-29 Thyroid Stimulating Hormone (TSH) 0.43 uIU/mL 0.358-3.74 [facility] Work Phone: Laboratory - Hematology and Cell countson 10-26-2021 HbA1c (Bld) [Mass fraction] 7.3 % [facility] Work Phone: Absolute lymphocyte counton 09-02-2021 Lymphocytes Auto (Unsp spec) [#/Vol] 1.58 10*3/uL 0.83-4.51 [facility] Work Phone: Basophil percentageon 2020 Bilirubin [Mass/Vol] 0.60 mg/dL 0.20-1.00 [facility] Work Phone: Comment on above: For patients on eltr ombopag therapy, use of Dimension [place] TBIL is not recommended. Chloride [Moles/Vol] 109 mmol/L 98-107 [facility] Work Phone: Eosinophils/100 WBC (Bld) 0.0 % 0-5 [facility] Work Phone: Glucose [Mass/Vol] 149 mg/dL 74-106 [facility] Work Phone: Comment on above: Fasting Glucose resu lt greater than or equal to 126 mg/dL suggests DIABETES MELLITUS per A.D.A. criteria.Please note revised GLUCOSE reference range effective 2017. Neutrophils (Bld) [#/Vol] 3.0 10*3/uL 2.0-7.7 [facility] Work Phone: Potassium [Moles/Vol] 3.9 mmol/L 3.5-5.1 [facility] Work Phone: Comment on above: Slight Hemolysis, Re sult may be falsely increased. Protein [Mass/Vol] 8.2 g/dL 6.4-8.2 [facility] Work Phone: Sodium [Moles/Vol] 139 mmol/L 136-145 [facility] Work Phone: WBC (Bld) [#/Vol] 5.0 10*3/uL 4.4-11.0 [facility] Work Phone: Blood erythrocytes count (nu mber/volume)on 09-02-2021 RBC (Bld) [#/Vol] 4.71 10*6/uL 4.2-5.4 [facility] Work Phone: Blood hemoglobin measurement (mass/volume)on 09-02-2021 Hemoglobin (Bld) [Mass/Vol] 14.2 g/dL 12.0-15.0 [facility] Work Phone: Blood lymphocytes/100 leukoc yteson 09-02-2021 Lymphocytes/100 WBC (Bld) 31.5 % 19-41 [facility] Work Phone: Blood monocytes/100 leukocyt eson 09-02-2021 Monocytes/100 WBC (Bld) 8.6 % 0-10 [facility] Work Phone: Blood platelet mean volumeon 09-02-2021 Platelet mean volume (Bld) [Entitic vol] 11.0 fL 6.2-12.0 [facility] Work Phone: Determination of erythrocyte mean corpuscular volume (MCV)on 09-02-2021 MCV (RBC) [Entitic vol] 92.4 fL 81-99 [facility] Work Phone: Hematocrit Auto (Bld) [Volum e fraction]on 09-02-2021 Hematocrit (Bld) [Volume fraction] 43.5 % 37-47 [facility] Work Phone: [phone] Laboratory - Chemistry and C hemistry - challengeon 09-02-2021 ALP [Catalytic activity/Vol] 158 U/L 45-117 [facility] Work Phone: ALT [Catalytic activity/Vol] 358 U/L 13-56 [facility] Work Phone: CO2 [Moles/Vol] 23.0 mmol/L 21.0-32.0 [facility] Work Phone: Globulin (S) [Mass/Vol] 5.0 g/dL 2.2-4.2 [facility] Work Phone: Natriuretic peptide B (Bld) [Mass/Vol] 14.1 pg/mL 0-100 [facility] Work Phone: [phone] Urea nitrogen/Creatinine [Mass ratio] 22.2 mg/mg 10-20 [facility] Work Phone: Laboratory - Hematology and Cell countson 09-02-2021 Basophils/100 WBC (Unsp spec) 0.6 % 0-1 [facility] Work Phone: [phone] Erythrocyte distribution width (RBC) [Entitic vol] 45.7 fL 35.1-43.9 [facility] Work Phone: [phone] Erythrocyte distribution width (RBC) [Ratio] 13.4 % 11.6-14.6 [facility] Work Phone: [phone] Immature granulocytes/100 WBC (Bld) 0.200 % 0.0-0.9 [facility] Work Phone: Comment on above: IG% - Immature Granu locytes (promyelocytes, myelocytes and metamyelocytes) > 1% indicates that a LEFT SHIFT is Present. MCH (RBC) [Entitic mass] 30.1 pg 27.0-32.0 [facility] Work Phone: [phone] Neutrophils/100 WBC (Bld) 59.1 % 47-70 [facility] Work Phone: [phone] Nucleated RBC/100 WBC (Bld) [Ratio] 0 % 0-5 [facility] Work Phone: MCHC Auto (RBC) [Mass/Vol]on 09-02-2021 MCHC (RBC) [Mass/Vol] 32.6 g/dL 32-36 [facility] Work Phone: No Panel Informationon 09-02 Estimated GFR (MDRD) Amer 91 mL/min >60 [facility] Work Phone: Comment on above: GFR Calc Estimated GFR (MDRD) Non-Af Amer 75 mL/min >60 [facility] Work Phone: Comment on above: Non- GFR Calc Platelets bldon 09-02-2021 Platelets (Bld) [#/Vol] 187 10*3/uL 150-450 [facility] Work Phone: Serum or plasma albumin shamir urement (mass/volume)on 09-02-2021 Albumin [Mass/Vol] 3.2 g/dL 3.2-5.0 [facility] Work Phone: Serum or plasma albumin/glob ulin mass ratioon 09-02-2021 Albumin/Globulin [Mass ratio] 0.6 {ratio} 0.9-2.4 [facility] Work Phone: Serum or plasma calcium shamir urement (mass/volume)on 09-02-2021 Calcium [Mass/Vol] 9.3 mg/dL 8.5-10.1 [facility] Work Phone: Serum or plasma creatinine m easurement (mass/volume)on 09-02-2021 Creatinine [Mass/Vol] 0.81 mg/dL 0.55-1.02 [facility] Work Phone: Comment on above: The validity of the calculated GFR & GFRAA in patients over 70 years has not been determined. Clinical correlation is essential. Serum or plasma urea nitroge n measurement (mass/volume)on 09-02-2021 Urea nitrogen [Mass/Vol] 18 mg/dL 7-18 [facility] Work Phone: Thin prep Papanicolaou smear with manual screeningon 09-02-2021 Thin prep Papanicolaou smear with manual screening 296 U/L 15-37 [facility] [facility] Work [facility] Comment on above: Slight Hemolysis, Re sult may be falsely increased. Thin prep Papanicolaou smear with manual screening 7 5-15 [facility] Work Phone: Basic Panelon 06-04-2020 Anion gap [Moles/Vol] 10 mmol/L Normal 9-18 [facility] Comment on above: Performed By: #### L TSH #### [place] [address] Calcium [Mass/Vol] 9.5 mg/dL Normal 8.5-10.2 [facility] Comment on above: Performed By: #### L TSH #### [facility] [address] [place], [place] [address] Chloride [Moles/Vol] 101 mmol/L Normal 97-105 [facility] Comment on above: Performed By: #### L TSH #### [facility] [address] [place], [place] [address] CO2 Blood 25 mmol/L Normal 22-30 [facility] Comment on above: Performed By: #### L TSH #### [facility] [address] [place], [place] [address] Creatinine [Mass/Vol] 0.72 mg/dL Normal 0.58-0.96 [facility] Comment on above: Performed By: #### L TSH #### [facility] [address] [place], [place] [address] Glucose [Mass/Vol] 147 mg/dL High 74-99 [facility] Comment on above: Result Comment: The [place] Diabetes Association (ADA) provides guidance for cutoff values for fasting glucose and random glucose. The ADA defines fasting as no caloric intake for at least 8 hours.Fasting plasma glucose results between 100 to 125 mg/dL indicate increased risk for diabetes (prediabetes). Fasting plasma glucose results greater than or equal to 126 mg/dL meet the criteria for diagnosis of diabetes. In the absence of unequivocal hyperglycemia, results should be confirmed by repeat testing. In a patient with classic symptoms of hyperglycemia or hyperglycemic crisis, random plasma glucose results greater than or equal to 200 mg/dL meet the criteria for diagnosis of diabetes. Reference: Standards of Medical Care in Diabetes 2016; [place] Diabetes Association. Diabetes Care. 2016;39(Suppl 1). Performed By: #### L TSH #### [facility] [address] [place], [place] [address] Potassium [Moles/Vol] 3.8 mmol/L Normal 3.7-5.1 [facility] Comment on above: Performed By: #### L TSH #### [facility] [address] [place], [place] [address] Sodium [Moles/Vol] 136 mmol/L Normal 136-144 [facility] Comment on above: Performed By: #### L TSH #### [facility] [address] [place], [place] [address] Urea nitrogen [Mass/Vol] 13 mg/dL Normal 7-21 [facility] Comment on above: Performed By: #### L TSH #### [facility] [address] [place], [place] [address] MDRD eGFRon 06-04-2020 GFR/1.73 sq M predicted among non-blacks MDRD (S/P/Bld) [Vol rate/Area] mL/min/{1.73_m2} Normal >60mL/min/1. 73m2 [facility] Comment on above: Result Comment: If t he patient is , multiply the result by 1.210. Performed By: #### L TSH #### [facility] [address] [place] [id number] THIN PREP IMAGE SEND OUTon 0 05-12-2020 THIN PREP IMAGE SEND OUT See Report Normal [facility] Comment on above: Order Comment: Order ed on Fin# [id number] Performed By: #### C [id number] #### [facility] [place] [facility] [address] [place], [place] [id number] Inspecting Engineer: Ascencion Palacios MD C GENITALon 05-03-2020 C GENITAL [facility] pt of Laboratory Services [address] [place] [id number] Name: ALEXANDRA BELLA : 1955 Admitting Provider: Gender: Female [facility] [phone] Number: Location: Lab [facility]. Admit 04/29/2020 Date: Discharge 04/29/2020 Date: Microbiology PROCEDURE: C GENITAL [] SOURCE: VAGINAL BODY SITE: COLLECTED DATE/TIME: 04/29/2020 13:08 EDT RECEIVED DATE/TIME: 04/30/2020 14:53 EDT START DATE/TIME: 04/30/2020 14:53 EDT FREE TEXT SOURCE: ORDERING PHYSICIAN: ABRAHAN QUAN FACRANULFO GREGORY FINAL REPORTS Final Report [] Verified Date/Time: 05/03/2020 10:48 EDT Normal Vaginal Melvi isolated, including: Many Gram Negative Rods STAINS GS [] Verified Date/Time: 04/30/2020 15:43 EDT Many Gram Positive Cocci Few Gram Negative Rods Very rare Epithelial Cells L=Low, H= High, *= Abnormal, C=Critical, f=Footnote, c=Corrected, i=Interp Data Name: ALEXANDRA BELLA Print Date/ 05/04/2020 10:50 EDT Time: Normal [facility] Comment on above: Performed By: #### 1 [id number] #### [facility] [place] [facility] [address] [place] [id number] Inspecting Engineer: Ascencion Palacios MD GP HPVon 05-01-2020 GP HPV Negative Normal [facility] Comment on above: Order Comment: Order ed on [facility]# [id number] Result Comment: This HPV assay is being performed via a second generation NAAT that utilizes target capture, paddock judge mediated amplification and dual kenetic assay technologies. Performed By: #### C [id number] #### [facility] [place] [facility] [address] [place] [address] Inspecting Engineer: Ascencion Palacios MD Amb Office-Progress Notes-Pr ovideron 04-29-2020 Amb Office-Progress Notes-Provider Chief Complaint RN CARDIOVASCULAR ICU - here for large cyst ? cervical polyp, c/o vaginal burning, tried monistat 3 day x2 and 2 diflucan 2 wks ago nervous about exam, RN CARDIOVASCULAR ICU about hurt her with spec. vaginal dryness, pt would like pap History of Present Illness Has a history of breast and colon cancer. She has a lot of vaginal dryness. Her pcp was concerned about a vaginal cyst. Lost 19 pounds since she stopped prednisone. Her exam showed an atrophic vagina with a watery discharge. There was an 8 mm nodule in the upper left part of the vagina, consistent with an inclusion cyst. Her cervix appeared normal. I obtained a pap smear and genital culture because I believe her discharge is bacterial vaginosis. She has already been treated multiple times for yeast vaginitis. Physical Exam Vitals & Measurements Systolic Blood Pressure: 134 mmHg (04/29/20 10:39:00) Diastolic Blood Pressure: 80 mmHg (04/29/20 10:39:00) Height/Length Measured: 160 cm (04/29/20 10:39:00) Weight Measured: 123.2 kg (04/29/20 10:39:00) Body Mass Index Measured: 48.13 kg/m2 (04/29/20 10:39:00) Depression Screening Scores Initial Depression Screen Score: 0 (04/29/20 10:39:00) Fall Risk Assessment Is the patient ambulatory (mobile): Yes (04/29/20 10:39:00) Have you had a fall within the past: No (04/29/20 10:39:00) Have you had 2 or more falls in the past: No (04/29/20 10:39:00) The vital signs were reviewed and are normal except BMI. General appearance: well developed and well nourished Lungs: Normal respiratory effort, clear to auscultation Extremities: No edema or clubbing Psychiatric: Mood normal: anxious Affect normal: yes Insight and judgement normal: yes IMPREGNATOR AND DRIER: External genitalia: normal, no lesions Urethra: normal meatus Vagina: 8 mm whitish nodule on the upper left vagina, watery discharge, vault normal Cervix: no lesions, no cervical motion tenderness, normal appearance Uterus: normal mobility, non-tender, normal size, shape and consistency Adnexa: normal Cul de sac: normal Perineum: no hemorrhoids, masses or warts noted Assessment/Plan Encounter for screening for osteoporosis Z13.820 Ordered: DEXA BONE DENSITY SCREEN, 04/29/2020, Routine, OSTEOPOROSIS, Encounter for screening for osteoporosis History of breast cancer Z85.3 [facility] testing done Ordered: AMB Venipuncture [id number], 04/29/2020 12:50:00 EDT, History of breast cancer, 1 [facility] SEND1, ROUTINE, 04/29/2020, Order for future visit, Dx: History of breast cancer Sebaceous cyst L72.3 of left side of vagina Vaginal discharge N89.8 Ordered: C GENITAL, ROUTINE, 04/29/2020, Specimen type: Vaginal, Vaginal discharge Problem List/Past Medical History Ongoing Atrial fibrillation BMI 45.0-49.9, adult Borderline diabetes Breast cancer, left Colorectal cancer GERD (gastroesophageal reflux disease) HTN (hypertension) Hypothyroidism MARILIA on CPAP 4cm Rheumatoid arthritis Vitamin D deficiency Historical Procedure/Surgical History Mammo - normal: 04/2019 Last pap - normal: 2014 Mcdavid-rectal cancer x2: 2009 Lt Breast partial mastectomy w lymph nodes removed: 1996 Breast lumpectomy: 1996 D&C - MAB Tubal ligation cholecystectomy dexa scan - never Medications Aspir-Low 81 mg oral delayed release tablet Carafate 1 g/10 mL oral suspension Celebrex 200 mg oral capsule, 200 mg= 1 caps, ORAL, DAILY WITH LUNCH Eliquis 5 mg oral tablet ergocalciferol 50,000 intl units (1.25 mg) oral capsule fluticasone 50 mcg/inh nasal spray Lasix 20 mg oral tablet losartan 25 mg oral tablet [place] 5 mg-325 mg oral tablet, 1-2 tab(s), ORAL, [id number], PRN omeprazole 40 mg oral delayed release capsule Protonix 40 mg oral delayed release tablet, 40 mg= 1 tabs, ORAL, DAILY Protonix 40 mg oral delayed release tablet, 40 mg= 1 tabs, ORAL, DAILY Remicade 100 mg intravenous injection Synthroid 150 mcg (0.15 mg) oral tablet, 150 mcg= 1 tabs, ORAL, DAILY Synthroid 200 mcg (0.2 mg) oral tablet Toprol-XL 25 mg oral tablet, extended release traMADol 50 mg oral tablet vitamin E 400 intl units oral capsule, 400 units= 1 caps, ORAL, DAILY Allergies clarithromycin (GI Upset, Urticaria, crmps and diarrhea) meperidine (Other: See Comments) Adhesive tape allergy (rash) LATEX allergy (irritation, swelling) erythromycin (Swelling) moxifloxacin penicillins Social History Alcohol - Denies Alcohol Use, 04/29/2020 Sexual Other contraceptive use: Tubal ligation, PM @ 39 d/t Chemo., 04/29/2020 Substance Abuse - Denies Substance Abuse, 04/29/2020 Tobacco Former smoker, quit more than 30 days ago Tobacco Use:., 04/29/2020 Family History Breast cancer: Grandmother (Dx about 45). Liver cancer: Brother. Other: Grandfather. . Health Maintenance Pending (in the next year) Due Tetanus Vaccine due 04/29/20 and every 10 years Varicella Vaccine Dose 1 due 04/29/20 One-time only Satisfied (in the past 1 year) There are no satisfied recommendations within the defined date range Normal [facility] Comprehensive Panelon 2019 Albumin [Mass/Vol] 3.8 g/dL Low 3.9-4.9 [facility] Comment on above: Performed By: #### L LP14 #### [place] [address] ALP [Catalytic activity/Vol] 90 U/L Normal 34-123 [facility] Comment on above: Performed By: #### L LP14 #### [place] [address] ALT-SGPT Blood see below Normal 7-38 [facility] Comment on above: Result Comment: Unab le to assay. Specimen Hemolyzed Performed By: #### L LP14 #### [place] [address] Anion gap [Moles/Vol] 11 mmol/L Normal 9-18 [facility] Comment on above: Performed By: #### L LP14 #### [place] [address] AST-SGOT Blood see below Normal 13-35 [facility] Comment on above: Result Comment: Unab le to assay. Specimen Hemolyzed Performed By: #### L LP14 #### [place] [address] Bilirubin Ql (U) 0.4 mg/dL Normal 0.2-1.3 [facility] Comment on above: Performed By: #### L LP14 #### [place] [address] Calcium [Mass/Vol] 9.9 mg/dL Normal 8.5-10.2 [facility] Comment on above: Performed By: #### L LP14 #### [facility] [address] [place], [place] [address] Chloride [Moles/Vol] 104 mmol/L Normal 97-105 [facility] Comment on above: Performed By: #### L LP14 #### [facility] [address] [place], [place] [address] CO2 Blood 20 mmol/L Low 22-30 [facility] Comment on above: Performed By: #### L LP14 #### [facility] [address] [place], [place] [address] Creatinine [Mass/Vol] 0.74 mg/dL Normal 0.58-0.96 [facility] Comment on above: Performed By: #### L LP14 #### [facility] [address] [place], [place] [address] Glucose [Mass/Vol] 116 mg/dL High 74-99 [facility] Comment on above: Result Comment: The [place] Diabetes Association (ADA) provides guidance for cutoff values for fasting glucose and random glucose. The ADA defines fasting as no caloric intake for at least 8 hours.Fasting plasma glucose results between 100 to 125 mg/dL indicate increased risk for diabetes (prediabetes). Fasting plasma glucose results greater than or equal to 126 mg/dL meet the criteria for diagnosis of diabetes. In the absence of unequivocal hyperglycemia, results should be confirmed by repeat testing. In a patient with classic symptoms of hyperglycemia or hyperglycemic crisis, random plasma glucose results greater than or equal to 200 mg/dL meet the criteria for diagnosis of diabetes. Reference: Standards of Medical Care in Diabetes 2016; [place] Diabetes Association. Diabetes Care. 2016;39(Suppl 1). Performed By: #### L LP14 #### [facility] [address] [place], [place] [address] Potassium [Moles/Vol] see below Normal 3.7-5.1 [facility] Comment on above: Result Comment: Unab le to assay. Specimen Hemolyzed Performed By: #### L LP14 #### [facility] [address] [place], [place] [address] Protein [Mass/Vol] 7.5 g/dL Normal 6.3-8.0 [facility] Comment on above: Performed By: #### L LP14 #### [facility] [address] [place], [place] [address] Sodium [Moles/Vol] 135 mmol/L Low 136-144 [facility] Comment on above: Performed By: #### L LP14 #### [facility] [address] [place], [place] [address] Urea nitrogen [Mass/Vol] 12 mg/dL Normal 7-21 [facility] Comment on above: Performed By: #### L LP14 #### [facility] [address] [place], [place] [address] Lipid Profile, Basicon 04-14 Cholesterol [Mass/Vol] 134 mg/dL Normal 0-199 [facility] Comment on above: Result Comment: Tota l Cholesterol < 200 mg/dL, Desirable Total Cholesterol 200 to 239 mg/dL, Borderline high Total Cholesterol > 239 mg/dL, High Performed By: #### L LPF #### [place] [address] Cholesterol in HDL [Mass/Vol] 48 mg/dL Normal [facility] Comment on above: Result Comment: Refe rence Range: HDL Cholesterol 40- 59 mg/dL, Acceptable HDL Cholesterol >59 mg/dL, High; Negative risk factor for coronary heart disease HDL Cholesterol <40 mg/dL, Low; Positive risk factor for coronary heart disease Performed By: #### L LPF #### [facility] [address] [place], [place] [address] Cholesterol in LDL [Mass/Vol] 67 mg/dL Normal 0-99 [facility] Comment on above: Result Comment: LDL Cholesterol < 100 mg/dL, Optimal LDL Cholesterol 100 to 129 mg/dL, Near optimal/above optimal LDL Cholesterol 130 to 159 mg/dL, Borderline high LDL Cholesterol 160 to 189 mg/dL, High LDL Cholesterol > 189 mg/dL, Very high Secondary prevention optimal LDL Cholesterol levels are recommended to be < 70 mg/dL Performed By: #### L LPF #### [facility] [address] [place], [place] [address] Cholesterol in LDL/Cholesterol in HDL [Mass ratio] 1.40 Normal 0.00-2.53 [facility] Comment on above: Performed By: #### L LPF #### [facility] [address] [place] [address] Cholesterol.total/Choles terol in HDL [Mass ratio] 2.79 {ratio} Normal 0.00-5.09 [facility] Comment on above: Performed By: #### L LPF #### [facility] [address] [place] [address] FASTING TIME 18 Hrs Normal [facility] Comment on above: Performed By: #### L LPF #### [facility] [address] [place] [address] Non-HDL Cholesterol 86 mg/dL Normal 0-129 [facility] Comment on above: Result Comment: Non HDL Cholesterol < 130 mg/dL, Optimal Non HDL Cholesterol 130 to 159 mg/dL, Near optimal/above optimal Non HDL Cholesterol 160 to 189 mg/dL, Borderline high Non HDL Cholesterol 190 to 219 mg/dL, High Non HDL Cholesterol > 219 mg/dL, Very high Secondary prevention optimal non HDL Cholesterol levels are recommended to be < 100 mg/dL Performed By: #### L LPF #### [place] [address] Triglyceride Blood 97 mg/dL Normal 0-149 [facility] Comment on above: Result Comment: Trig lycerides < 150 mg/dL, Normal Triglycerides 150 to 199 mg/dL, Borderline high Triglycerides 200 to 499 mg/dL, High Triglycerides > 499 mg/dL, Very high Performed By: #### L LPF #### [place] [address] VLDL Cholesterol 19 mg/dL Normal 0-29 [facility] Comment on above: Performed By: #### L LPF #### [place] [address] FASTING TIME 18 Hrs Normal [facility] Comment on above: Performed By: #### L LPF #### [place] [address] STACIA SCREENINGon 04-14-2020 STACIA SCREENING Final Report DATE OF EXAM: Apr 14 2020 8:28AM LDW [id number] - [facility] SCREENING / PROCEDURE REASON: Screening Physician Interpretation #[id number] - [facility] SCREENING BILATERAL DIGITAL SCREENING MAMMOGRAM WITH CAD: 04/14/2020 HISTORY: Routine screening mammogram. Patient reports intermittent diffuse right breast pain. RESULT: TECHNIQUE: The study was acquired using full field digital technology and interpreted from soft copy. Current study was also evaluated with a Computer Aided Detection (CAD). Comparison is made to exams dated: 01/10/2012 mammogram - [facility], 10/13/2011 mammogram, 05/06/2010 mammogram, and 05/06/2010 mammogram - [facility]. There are scattered fibroglandular elements in both breasts. The left breast has post-operative findings. No significant masses, calcifications, or other findings are seen in either breast. IMPRESSION: BENIGN FINDING There is no abnormality seen in the right breast to correspond with the diffuse pain, however, clinical correlation and clinical followup are recommended. There is no mammographic evidence of malignancy. A 1 year screening mammogram is recommended. Brigid wise/paola:04/14/2020 09:30:22 Marketing Systems Analyst(s): Lilo Staples (Kia)(M), Replaced By [facility] letter sent: Normal over 40 Mammogram BI-RADS: 2 Benign finding Multiple national specialty organizations have released breast cancer screening guidelines for women at average risk for developing breast cancer - guidelines that are based on both evidence and opinion, yet differ on when to start and how often to screen for breast cancer. With representation from Breast Imaging, Internal Medicine, Women's Health, Family Medicine, and Medical/Surgical Oncology, the [facility] has carefully reviewed the data and reached the following consensus: 1) All women should engage in shared decision-making with their providers to decide when to start and how often to screen; 2) All women should have the opportunity to start screening mammography at age 40; 3) For women ages 45-55, we recommend annual screening mammograms; 4) For women ages 55 and over, we support both the transition from an annual to a biennial interval if this aligns more with patient's values and preferences, or continuation with annual screening; 5) All women should discuss with their providers when to stop screening mammograms. Rnp: Paola Transcribe Date/Time: Apr 14 2020 8:01A Dictated by : BRIGID LINARES MD This examination was interpreted and the report reviewed and electronically signed by: BRIGID LINARES MD on Apr 14 2020 9:30AM EST Normal [facility] MDRD eGFRon 04-14-2020 GFR/1.73 sq M predicted among non-blacks MDRD (S/P/Bld) [Vol rate/Area] mL/min/{1.73_m2} Normal >60mL/min/1. 73m2 [facility] Comment on above: Result Comment: If t he patient is , multiply the result by 1.210. Performed By: #### L GFR #### [facility] [address] [place], [place] [address] US ABD RIGHT UPPER QUADRANTo n 03-20-2020 US ABD RIGHT UPPER QUADRANT Final Report DATE OF EXAM: Mar 20 2020 9:12AM LDU [id number] - US ABD RIGHT UPPER QUADRANT / PROCEDURE REASON: Elevated LFTs Physician Interpretation EXAMINATION: RIGHT UPPER QUADRANT ULTRASOUND CLINICAL HISTORY: Elevated liver function tests, cholecystectomy TECHNIQUE: Sonography of the right upper quadrant was performed. Images were obtained and stored in a permanent archive. MQ: [id number] COMPARISON: 12/21/2017 CT abdomen RESULT: Pancreas: Normal sonographic appearance. Portions obscured: tail Liver: Echotexture: Normal, homogeneous. Echogenicity: Increased Surface contour: Smooth Lesions: None. Biliary: No intrahepatic biliary duct dilation. CBD: 0.8 cm at the hilum. Gallbladder: Cholecystectomy Right Kidney: No hydronephrosis. Ascites: None. IMPRESSION: 1. Sonographic findings are consistent with a liver changes. No focal liver lesion. 2. Status post cholecystectomy. No abnormal bile duct dilatation [facility] Transcribe Date/Time: Mar 20 2020 2:20P Dictated by : TAMIA RIOS MD This examination was interpreted and the report reviewed and electronically signed by: TAMIA RIOS MD on Mar 20 2020 3:55PM EST Normal [facility] Hgb A1con 03-13-2020 HbA1c (Bld) [Mass fraction] 137 mg/dL Normal [facility] Comment on above: Performed By: #### H A1C #### [facility] [address] [place] [id number] HbA1c (Bld) [Mass fraction] 6.4 % High 4.0-5.6 [facility] Comment on above: Result Comment: [place] Diabetes Association guidelines indicate that the patients with HgA1c in the range 5.7 ? 6.4% are at increased risk for development of diabetes, and intervention by lifestyle modification may be beneficial. HgA1c greater or equal to 6.5% is considered diagnostic of diabetes. Performed By: #### H A1C #### [place] [address] Free Thyroxineon 03-12-2020 Free T4 [Mass/Vol] 2.3 ng/dL High 0.9-1.7 [facility] Comment on above: Result Comment: Mariely ents taking a biotin dose of up to 5 mg/day should refrain from taking biotin for 4 hours prior to sample collection. Patients taking a biotin dose of 5 to 10 mg/day should refrain from taking biotin for 8 hours prior to sample collection. Patients taking a biotin dose > 10 mg/day should consult with their physician or the laboratory prior to having a sample taken. Clinicians should consider biotin interference as a source of error, when clinically suspicious of the laboratory result. Performed By: #### F T4A #### [place] [address] Hepatic Panelon 03-12-2020 Albumin [Mass/Vol] 4.1 g/dL Normal 3.9-4.9 [facility] Comment on above: Performed By: #### L HEPA #### [place] [address] ALP [Catalytic activity/Vol] 109 U/L Normal 34-123 [facility] Comment on above: Performed By: #### L HEPA #### [place] [address] ALT-SGPT Blood 141 U/L High 7-38 [facility] Comment on above: Performed By: #### L HEPA #### [place] [address] AST-SGOT Blood 103 U/L High 13-35 [facility] Comment on above: Performed By: #### L HEPA #### [place] [address] Bilirubin Ql (U) 0.4 mg/dL Normal 0.2-1.3 [facility] Comment on above: Performed By: #### L HEPA #### [facility] [address] [place] [address] Bilirubin.direct [Mass/Vol] mg/dL Normal 0.0-0.2 [facility] Comment on above: Performed By: #### L HEPA #### [facility] [address] [place] [address] Protein [Mass/Vol] 7.1 g/dL Normal 6.3-8.0 [facility] Comment on above: Performed By: #### L HEPA #### [facility] [address] [place] [address] TSHon 03-12-2020 TSH Qn 0.561 uIU/mL Normal 0.270-4.200 [facility] Comment on above: Result Comment: Preg brynn: 1st trimester:(9-12 weeks):0.180-2.900 uIU/mL 2nd trimester: 0.110-3.980 uIU/mL 3rd trimester: 0.480-4.710 uIU/mL Patients taking a biotin dose of up to 5 mg/day should refrain from taking biotin for 4 hours prior to sample collection. Patients taking a biotin dose of 5 to 10 mg/day should refrain from taking biotin for 8 hours prior to sample collection. Patients taking a biotin dose > 10 mg/day should consult with their physician or the laboratory prior to having a sample taken. Clinicians should consider biotin interference as a source of error, when clinically suspicious of the laboratory result. Performed By: #### L TSH #### [place] [address] Office Visit: test resultson 07-03-2017 Dietary management education, guidance, and counseling (procedure) yes Invalid Interpretation Code [facility] Work Phone: Documentation of current medications (procedure) Done Invalid Interpretation Code [facility] Work Phone: Tobacco smoking status NHIS Never Invalid Interpretation Code [facility] Work Phone: Tobacco use CPHS Never smoker Invalid Interpretation Code [facility] Work Phone: Lab Report: BNP,B-Type NATRI URETIC PEPTIDEon 06-29-2017 BNP 104.1 pg/mL High 0-100 [facility] Work Phone: Office Visit: [facility] 06-29-20 17 Fall risk assessment No Invalid Interpretation Code [facility] Work Phone: Clinical Lists Update: Prelo biotechnologist 06-20-2017 Left ventricular Ejection fraction 50 % Invalid Interpretation Code [facility] Work Phone: Replaced Document: Margareth HARDWICK Observationson 06-14-2017 EKG QRS axis 55 deg Invalid Interpretation Code [facility] Work Phone: Interpretation Sinus Rhythm Low vol tage in limb leads. ABNORMAL Invalid Interpretation Code [facility] Work Phone: P [place] 33 deg Invalid Interpretation Code [facility] Work Phone: TX Interval 146 ms Invalid Interpretation Code [facility] Work Phone: Pulse (Heart Rate) 86 /min Invalid Interpretation Code [facility] Work Phone: QRS Duration 90 ms Invalid Interpretation Code [facility] Work Phone: QT Interval new path ms Invalid Interpretation Code [facility] Work Phone: QTc Valiente 435 ms Invalid Interpretation Code [facility] Work Phone: T [place] 40 deg Invalid Interpretation Code [facility] Work Phone: Vital Signs Date Time Vital Sign Value Performing Clinician Facility 06-27-2025 08:59-0400 Body height 160.02 cm Leonora Davalos RN CARDIOVASCULAR ICU-C Work Phone: [facility] 06-27-2025 08:59-0400 Body mass index (BMI) [Ratio] 47.6 kg/m2 Leonora Davalos RN CARDIOVASCULAR ICU-C Work Phone: [facility] 06-27-2025 08:59-0400 Body weight 122.01 kg Leonora Davalos RN CARDIOVASCULAR ICU-C Work Phone: [facility] 06-27-2025 08:59-0400 Diastolic blood pressure 69 mm[Hg] Leonora Davalos RN CARDIOVASCULAR ICU-C Work Phone: [facility] 06-27-2025 08:59-0400 Heart rate 94 /min Leonora Davalos RN CARDIOVASCULAR ICU-C Work Phone: [facility] 06-27-2025 08:59-0400 Respiratory rate 16 /min Leonora Davalos RN C[facility]IOVASCULAR ICU-C Work Phone: [facility] 06-27-2025 08:59-0400 Systolic blood pressure 115 mm[Hg] Leonora Davalos RN CARDIOVASCULAR ICU-C Work Phone: [facility] 05-21-2025 13:11-0400 Body temperature 97.3 [degF] Marlon Cesar MD Work Phone: [facility] 05-21-2025 13:11-0400 Diastolic blood pressure 71 mm[Hg] Marlon Cesar MD Work Phone: [facility] 05-21-2025 13:11-0400 Heart rate 78 /min Marlon Cesar MD Work Phone: [facility] 05-21-2025 13:11-0400 Respiratory rate 15 /min Marlon Cesar MD Work Phone: [facility] 05-21-2025 13:11-0400 SaO2% (BldA) [Mass fraction] 95 % Marlon Cesar MD Work Phone: [facility] 05-21-2025 13:11-0400 Systolic blood pressure 121 mm[Hg] Marlon Cesar MD Work Phone: [facility] 04-23-2025 09:51-0400 Body height 160 cm [facility] 3 Work Phone: [facility] 04-23-2025 09:51-0400 Body mass index (BMI) [Ratio] 48.11 kg/m2 Pac 3 Work Phone: [facility] 04-23-2025 09:51-0400 Body temperature 97.7 [degF] Pacc 3 Work Phone: [facility] 04-23-2025 09:51-0400 Body weight 123.2 kg Pacc 3 Work Phone: [facility] 04-23-2025 09:51-0400 Diastolic blood pressure 74 mm[Hg] Pacc 3 Work Phone: [facility] 04-23-2025 09:51-0400 Heart rate 102 /min Pacc 3 Work Phone: [facility] 04-23-2025 09:51-0400 Respiratory rate 16 /min Pacc 3 Work Phone: [facility] 04-23-2025 09:51-0400 SaO2% (BldA) [Mass fraction] 96 % Pacc 3 Work Phone: [facility] 04-23-2025 09:51-0400 Systolic blood pressure 142 mm[Hg] Pacc 3 Work Phone: [facility] 04-22-2025 08:20-0400 Body height 160.02 cm Leonroa Davalos RN CARDIOVASCULAR ICU-C Work Phone: [facility] 04-22-2025 08:20-0400 Body mass index (BMI) [Ratio] 47.5 kg/m2 Leonora Davalos RN CARDIOVASCULAR ICU-C Work Phone: [facility] 04-22-2025 08:20-0400 Body temperature 97.2 [degF] Leonora Davalos RN CARDIOVASCULAR ICU-C Work Phone: [facility] 04-22-2025 08:20-0400 Body weight 121.56 kg Leonora Davalos RN CARDIOVASCULAR ICU-C Work Phone: [facility] 04-22-2025 08:20-0400 Diastolic blood pressure 78 mm[Hg] Leonora Davalos RN CARDIOVASCULAR ICU-C Work Phone: [facility] 04-22-2025 08:20-0400 Heart rate 86 /min Leonora Davalos RN CARDIOVASCULAR ICU-C Work Phone: [facility] 04-22-2025 08:20-0400 Respiratory rate 20 /min Leonoracarlos StarrDavalos RN CARDIOVASCULAR ICU-C Work Phone: [facility] 04-22-2025 08:20-0400 SaO2% (BldA) [Mass fraction] 95 % Leonoracarlos StarrDavalos RN CARDIOVASCULAR ICU-C Work Phone: [facility] 04-22-2025 08:20-0400 Systolic blood pressure 113 mm[Hg] Leonora Davalos RN CARDIOVASCULAR ICU-C Work Phone: [facility] 04-07-2025 07:46-0400 Body height 160 cm Pacc 1 Work Phone: [facility] 04-07-2025 07:46-0400 Body mass index (BMI) [Ratio] 47.64 kg/m2 Pacc 1 Work Phone: [facility] 04-07-2025 07:46-0400 Body temperature 97.59 [degF] Pacc 1 Work Phone: [facility] 04-07-2025 07:46-0400 Body weight 122 kg Pacc 1 Work Phone: [facility] 04-07-2025 07:46-0400 Diastolic blood pressure 73 mm[Hg] Pacc 1 Work Phone: [facility] 04-07-2025 07:46-0400 Heart rate 101 /min Pacc 1 Work Phone: [facility] 04-07-2025 07:46-0400 Respiratory rate 16 /min Pacc 1 Work Phone: [facility] 04-07-2025 07:46-0400 SaO2% (BldA) [Mass fraction] 96 % Pacc 1 Work Phone: [facility] 04-07-2025 07:46-0400 Systolic blood pressure 124 mm[Hg] Pacc 1 Work Phone: [facility] 03-28-2025 14:41-0400 Body temperature 97.39 [degF] Jane Martinez RN Work Phone: [facility] 03-28-2025 14:41-0400 Diastolic blood pressure 72 mm[Hg] Jane Martinez RN Work Phone: [facility] 03-28-2025 14:41-0400 Heart rate 73 /min Jane Martinez RN Work Phone: [facility] 03-28-2025 14:41-0400 Respiratory rate 16 /min Jane Martinez RN Work Phone: [facility] 03-28-2025 14:41-0400 SaO2% (BldA) [Mass fraction] 95 % Jane Martinez RN Work Phone: [facility] 03-28-2025 14:41-0400 Systolic blood pressure 130 mm[Hg] Jane Martinez RN Work Phone: [facility] 03-28-2025 09:53-0400 Body mass index (BMI) [Ratio] 48.01 kg/m2 Marlon Cesar MD Work Phone: [facility] 03-28-2025 09:53-0400 Body temperature 98.01 [degF] Marlon Cesar MD Work Phone: [facility] 03-28-2025 09:53-0400 Body weight 122.92 kg Marlon Cesar MD Work Phone: [facility] 03-28-2025 09:53-0400 Diastolic blood pressure 82 mm[Hg] Marlon Cesar MD Work Phone: [facility] 03-28-2025 09:53-0400 Heart rate 92 /min Marlon Cesar MD Work Phone: [facility] 03-28-2025 09:53-0400 Systolic blood pressure 123 mm[Hg] Marlon Cesar MD Work Phone: [facility] 03-26-2025 08:55-0400 Body temperature 97.2 [degF] Jane Martinez RN Work Phone: [facility] 03-26-2025 08:55-0400 Diastolic blood pressure 70 mm[Hg] Jane Martinez RN Work Phone: [facility] 03-26-2025 08:55-0400 Heart rate 98 /min Jane Martinez RN Work Phone: [facility] 03-26-2025 08:55-0400 Respiratory rate 16 /min Jane Martinez RN Work Phone: [facility] 03-26-2025 08:55-0400 SaO2% (BldA) [Mass fraction] 97 % Jane Martinez RN Work Phone: [facility] 03-26-2025 08:55-0400 Systolic blood pressure 132 mm[Hg] Jane Martinez RN Work Phone: [facility] 03-25-2025 09:00-0400 Diastolic blood pressure 77 mm[Hg] Jane Martinez RN Work Phone: [facility] 03-25-2025 09:00-0400 Heart rate 70 /min Jane Martinez RN Work Phone: [facility] 03-25-2025 09:00-0400 Respiratory rate 16 /min Jane Martinez RN Work Phone: [facility] 03-25-2025 09:00-0400 SaO2% (BldA) [Mass fraction] 97 % Jane Martinez RN Work Phone: [facility] 03-25-2025 09:00-0400 Systolic blood pressure 130 mm[Hg] Jane Martinez RN Work Phone: [facility] 03-24-2025 08:25-0400 Body mass index (BMI) [Ratio] 48.89 kg/m2 Sammie Jordan RN Work Phone: [facility] 03-24-2025 08:25-0400 Body temperature 97.7 [degF] Sammie Jordan RN Work Phone: [facility] 03-24-2025 08:25-0400 Body weight 125.19 kg Sammie Jordan RN Work Phone: [facility] 03-24-2025 08:25-0400 Diastolic blood pressure 64 mm[Hg] Sammie Jordan RN Work Phone: [facility] 03-24-2025 08:25-0400 Heart rate 68 /min Sammie Jordan RN Work Phone: [facility] 03-24-2025 08:25-0400 Respiratory rate 18 /min Sammie Jordan RN Work Phone: [facility] 03-24-2025 08:25-0400 SaO2% (BldA) [Mass fraction] 97 % Sammie Jordan RN Work Phone: [facility] 03-24-2025 08:25-0400 Systolic blood pressure 124 mm[Hg] Sammie Jordan RN Work Phone: [facility] 03-23-2025 16:10-0400 Body temperature 97.59 [degF] Dalila Burroughs RN Work Phone: [facility] 03-23-2025 16:10-0400 Diastolic blood pressure 64 mm[Hg] Dalila Burroughs RN Work Phone: [facility] 03-23-2025 16:10-0400 Heart rate 77 /min Dalila Burroughs RN Work Phone: [facility] 03-23-2025 16:10-0400 Respiratory rate 16 /min Dalila Burroughs RN Work Phone: [facility] 03-23-2025 16:10-0400 SaO2% (BldA) [Mass fraction] 97 % Dalila Burroughs RN Work Phone: [facility] 03-23-2025 16:10-0400 Systolic blood pressure 104 mm[Hg] Dalila Burroughs RN Work Phone: [facility] 03-23-2025 08:50-0400 Body mass index (BMI) [Ratio] 48.71 kg/m2 Miracle Erdos RN Work Phone: [facility] 03-23-2025 08:50-0400 Body temperature 98.01 [degF] Miracle Erdos RN Work Phone: [facility] 03-23-2025 08:50-0400 Body weight 124.74 kg Miracle Erdos RN Work Phone: [facility] 03-23-2025 08:50-0400 Diastolic blood pressure 64 mm[Hg] Miracle Erdos RN Work Phone: [facility] 03-23-2025 08:50-0400 Heart rate 69 /min Miracle Erdos RN Work Phone: [facility] 03-23-2025 08:50-0400 Respiratory rate 18 /min Miracle Erdos RN Work Phone: [facility] 03-23-2025 08:50-0400 SaO2% (BldA) [Mass fraction] 98 % Miracle Erdos RN Work Phone: [facility] 03-23-2025 08:50-0400 Systolic blood pressure 102 mm[Hg] Miracle Ghadaos RN Work Phone: [facility] 03-22-2025 13:46-0400 Body mass index (BMI) [Ratio] 48.36 kg/m2 Miracle Erdos RN Work Phone: [facility] 03-22-2025 13:46-0400 Body temperature 98.01 [degF] Miracle Erdos RN Work Phone: [facility] 03-22-2025 13:46-0400 Body weight 123.83 kg Miracle Erdos RN Work Phone: [facility] 03-22-2025 13:46-0400 Diastolic blood pressure 72 mm[Hg] Miracle Erdos RN Work Phone: [facility] 03-22-2025 13:46-0400 Heart rate 76 /min Miracle Urrutiaos RN Work Phone: [facility] 03-22-2025 13:46-0400 Respiratory rate 18 /min Miracle Erdos RN Work Phone: [facility] 03-22-2025 13:46-0400 SaO2% (BldA) [Mass fraction] 98 % Miracle Urrutiaos RN Work Phone: [facility] 03-22-2025 13:46-0400 Systolic blood pressure 106 mm[Hg] Miracle Ghadaos RN Work Phone: [facility] 03-21-2025 12:45-0400 Body mass index (BMI) [Ratio] 48.71 kg/m2 Betsy Fuentes RN Work Phone: [facility] 03-21-2025 12:45-0400 Body temperature 98.01 [degF] Betsy Fuentes RN Work Phone: [facility] 03-21-2025 12:45-0400 Body weight 124.74 kg Betsy Fuentes RN Work Phone: [facility] 03-21-2025 12:45-0400 Diastolic blood pressure 70 mm[Hg] Betsy Fuentes RN Work Phone: [facility] 03-21-2025 12:45-0400 Heart rate 75 /min Betsy Fuentes RN Work Phone: [facility] 03-21-2025 12:45-0400 Respiratory rate 16 /min Betsy Fuentes RN Work Phone: [facility] 03-21-2025 12:45-0400 SaO2% (BldA) [Mass fraction] 97 % Betsy Fuentes RN Work Phone: [facility] 03-21-2025 12:45-0400 Systolic blood pressure 100 mm[Hg] Betsy Fuentes RN Work Phone: [facility] 02-20-2025 17:41-0400 Body height 160.02 cm Leonora Davalos RN CARDIOVASCULAR ICU-C Work Phone: [facility] 02-20-2025 17:41-0400 Body mass index (BMI) [Ratio] 49.6 kg/m2 Leonora Davalos RN CARDIOVASCULAR ICU-C Work Phone: [facility] 02-20-2025 17:41-0400 Body temperature 98.1 [degF] Leonora Davalos RN CARDIOVASCULAR ICU-C Work Phone: [facility] 02-20-2025 17:41-0400 Body weight 127 kg Leonora Davalos RN CARDIOVASCULAR ICU-C Work Phone: [facility] 02-20-2025 17:41-0400 Diastolic blood pressure 70 mm[Hg] Leonora Davalos RN CARDIOVASCULAR ICU-C Work Phone: [facility] 02-20-2025 17:41-0400 Heart rate 97 /min Leonora Davalos RN CARDIOVASCULAR ICU-C Work Phone: [facility] 02-20-2025 17:41-0400 Respiratory rate 18 /min Leonora Davalos RN CARDIOVASCULAR ICU-C Work Phone: [facility] 02-20-2025 17:41-0400 SaO2% (BldA) [Mass fraction] 97 % Leonora Davalos RN CARDIOVASCULAR ICU-C Work Phone: [facility] 02-20-2025 17:41-0400 Systolic blood pressure 140 mm[Hg] Leonora Davalos RN CARDIOVASCULAR ICU-C Work Phone: [facility] 01-17-2025 07:31-0400 Body mass index (BMI) [Ratio] 49.79 kg/m2 Eliceo Ambriz [employer] Work Phone: [facility] 01-17-2025 07:31-0400 Body weight 127.46 kg Eliceo Ambriz [employer] Work Phone: [facility] 01-10-2025 12:45-0400 Body mass index (BMI) [Ratio] 50.1 kg/m2 Leonora Davalos RN CARDIOVASCULAR ICU-C Work Phone: [facility] 01-10-2025 12:45-0400 Body temperature 97.2 [degF] Leonora Davalos RN CARDIOVASCULAR ICU-C Work Phone: [facility] 01-10-2025 12:45-0400 Body weight 128.36 kg Leonora Davalos RN CARDIOVASCULAR ICU-C Work Phone: [facility] 01-10-2025 12:45-0400 Diastolic blood pressure 75 mm[Hg] Leonora Davalos RN CARDIOVASCULAR ICU-C Work Phone: [facility] 01-10-2025 12:45-0400 Heart rate 81 /min Leonora Davalos RN CARDIOVASCULAR ICU-C Work Phone: [facility] 01-10-2025 12:45-0400 Respiratory rate 20 /min Leonora Davalos RN CARDIOVASCULAR ICU-C Work Phone: [facility] 01-10-2025 12:45-0400 SaO2% (BldA) [Mass fraction] 96 % Leonora Davalos RN CARDIOVASCULAR ICU-C Work Phone: [facility] 01-10-2025 12:45-0400 Systolic blood pressure 120 mm[Hg] Leonora Davalos RN CARDIOVASCULAR ICU-C Work Phone: [facility] 01-07-2025 08:15-0400 Body height 160.02 cm Leonora Davalos RN CARDIOVASCULAR ICU-C Work Phone: [facility] 01-07-2025 08:15-0400 Body weight 128.82 kg Leonora Davalos RN CARDIOVASCULAR ICU-C Work Phone: [facility] 01-07-2025 08:15-0400 Heart rate 103 /min Leonora Davalos RN CARDIOVASCULAR ICU-C Work Phone: [facility] 01-07-2025 08:15-0400 SaO2% (BldA) [Mass fraction] 96 % Leonora Davalos RN CARDIOVASCULAR ICU-C Work Phone: [facility] 12-04-2024 15:13-0400 Body height 160.02 cm Leonora Davalos RN CARDIOVASCULAR ICU-C Work Phone: [facility] 12-04-2024 15:13-0400 Body mass index (BMI) [Ratio] 51.3 kg/m2 Leonora Davalos RN CARDIOVASCULAR ICU-C Work Phone: [facility] 12-04-2024 15:13-0400 Body temperature 98.1 [degF] Leonoracarlos Davalos RN CARDIOVASCULAR ICU-C Work Phone: [facility] 12-04-2024 15:13-0400 Body weight 131.54 kg Leonora Davalos RN CARDIOVASCULAR ICU-C Work Phone: [facility] 12-04-2024 15:13-0400 Diastolic blood pressure 82 mm[Hg] Leonora Davalos RN CARDIOVASCULAR ICU-C Work Phone: [facility] 12-04-2024 15:13-0400 Heart rate 89 /min Leonoracarlos Davalos RN CARDIOVASCULAR ICU-C Work Phone: [facility] 12-04-2024 15:13-0400 Respiratory rate 18 /min Leonora Davalos RN CARDIOVASCULAR ICU-C Work Phone: [facility] 12-04-2024 15:13-0400 SaO2% (BldA) [Mass fraction] 97 % Leonora Davalos RN CARDIOVASCULAR ICU-C Work Phone: [facility] 12-04-2024 15:13-0400 Systolic blood pressure 148 mm[Hg] Leonora Davalos RN CARDIOVASCULAR ICU-C Work Phone: [facility] 11-19-2024 20:33-0400 Body height 160.02 cm Leonora Davalos RN CARDIOVASCULAR ICU-C Work Phone: [facility] 11-19-2024 20:33-0400 Body mass index (BMI) [Ratio] 51.2 kg/m2 Leonora Davalos RN CARDIOVASCULAR ICU-C Work Phone: [facility] 11-19-2024 20:33-0400 Body temperature 98.1 [degF] Leonora Davalos RN CARDIOVASCULAR ICU-C Work Phone: [facility] 11-19-2024 20:33-0400 Body weight 131.08 kg Leonora Davalos RN CARDIOVASCULAR ICU-C Work Phone: [facility] 11-19-2024 20:33-0400 Diastolic blood pressure 70 mm[Hg] Leonora Davalos RN CARDIOVASCULAR ICU-C Work Phone: [facility] 11-19-2024 20:33-0400 Heart rate 90 /min Leonoracarlos Davalos RN CARDIOVASCULAR ICU-C Work Phone: [facility] 11-19-2024 20:33-0400 Respiratory rate 18 /min Leonoracarlos Davalos RN CARDIOVASCULAR ICU-C Work Phone: [facility] 11-19-2024 20:33-0400 SaO2% (BldA) [Mass fraction] 98 % Leonora Davalos RN CARDIOVASCULAR ICU-C Work Phone: [facility] 11-19-2024 20:33-0400 Systolic blood pressure 115 mm[Hg] Leonora Davalos RN CARDIOVASCULAR ICU-C Work Phone: [facility] 11-13-2024 10:21-0500 Body mass index (BMI) [Ratio] 52 kg/m2 Leonora Davalos RN CARDIOVASCULAR ICU-C Work Phone: [facility] 11-13-2024 10:21-0500 Body weight 133.35 kg Leonoracarlos Davalos RN CARDIOVASCULAR ICU-C Work Phone: [facility] 11-13-2024 10:21-0500 Diastolic blood pressure 80 mm[Hg] Leonoracarlos Davalos RN CARDIOVASCULAR ICU-C Work Phone: [facility] 11-13-2024 10:21-0500 Heart rate 90 /min Leonora Davalos RN CARDIOVASCULAR ICU-C Work Phone: [facility] 11-13-2024 10:21-0500 Respiratory rate 18 /min Leonoracarlos Davalos RN CARDIOVASCULAR ICU-C Work Phone: [facility] 11-13-2024 10:21-0500 Systolic blood pressure 168 mm[Hg] Leonora Davalos RN CARDIOVASCULAR ICU-C Work Phone: [facility] 11-08-2024 07:59-0500 Body mass index (BMI) [Ratio] 50.68 kg/m2 [facility] [employer] Work Phone: [facility] 11-08-2024 07:59-0500 Body weight 129.73 kg [facility] [employer] Work Phone: [facility] 09-26-2024 19:21-0500 Body temperature 98.4 [degF] Leonora Davalos RN CARDIOVASCULAR ICU-C Work Phone: [facility] 09-26-2024 19:21-0500 Diastolic blood pressure 71 mm[Hg] Leonora Davalos RN CARDIOVASCULAR ICU-C Work Phone: [facility] 09-26-2024 19:21-0500 Heart rate 78 /min Leonora Davalos RN CARDIOVASCULAR ICU-C Work Phone: [facility] 09-26-2024 19:21-0500 Respiratory rate 16 /min Leonora Davalos RN CARDIOVASCULAR ICU-C Work Phone: [facility] 09-26-2024 19:21-0500 SaO2% (BldA) [Mass fraction] 99 % Leonora Davalos RN CARDIOVASCULAR ICU-C Work Phone: [facility] 09-26-2024 19:21-0500 Systolic blood pressure 152 mm[Hg] Leonora Davalos RN CARDIOVASCULAR ICU-C Work Phone: [facility] 09-26-2024 14:37-0500 Body mass index (BMI) [Ratio] 51.7 kg/m2 Leonora Davalos RN CARDIOVASCULAR ICU-C Work Phone: [facility] 09-26-2024 14:37-0500 Body weight 132.44 kg Leonora Davalos RN CARDIOVASCULAR ICU-C Work Phone: [facility] 09-02-2024 10:57-0500 Body temperature 97.6 [degF] Leonora Davalos RN CARDIOVASCULAR ICU-C Work Phone: [facility] 09-02-2024 10:57-0500 Body weight 132.9 kg Leonora Davalos RN CARDIOVASCULAR ICU-C Work Phone: [facility] 09-02-2024 10:57-0500 Diastolic blood pressure 76 mm[Hg] Leonora Davalos RN CARDIOVASCULAR ICU-C Work Phone: [facility] 09-02-2024 10:57-0500 Heart rate 70 /min Leonora Davalos RN CARDIOVASCULAR ICU-C Work Phone: [facility] 09-02-2024 10:57-0500 Respiratory rate 18 /min Leonora Davalos RN CARDIOVASCULAR ICU-C Work Phone: [facility] 09-02-2024 10:57-0500 SaO2% (BldA) [Mass fraction] 96 % Leonora Davalos RN CARDIOVASC[facility] ICU-C Work Phone: [facility] 09-02-2024 10:57-0500 Systolic blood pressure 137 mm[Hg] Leonora Davalos RN CARDIOVASCULAR ICU-C Work Phone: [facility] 09-02-2024 09:38-0500 Body mass index (BMI) [Ratio] 51.9 kg/m2 Leonora Davalos RN CARDIOVASCULAR ICU-C Work Phone: [facility] 09-02-2024 09:38-0500 Body weight 132.9 kg Leonora Davalos RN CARDIOVASCULAR ICU-C Work Phone: [facility] 09-02-2024 09:38-0500 Diastolic blood pressure 63 mm[Hg] Leonora Davalos RN CARDIOVASCULAR ICU-C Work Phone: [facility] 09-02-2024 09:38-0500 Heart rate 80 /min Leonora Davalos RN CARDIOVASCULAR ICU-C Work Phone: [facility] 09-02-2024 09:38-0500 Systolic blood pressure 84 mm[Hg] Leonora Davalos RN CARDIOVASCULAR ICU-C Work Phone: [facility] 04-17-2024 16:23-0400 Body height 160 cm Vaughn Decker MD Work Phone: [facility] 04-17-2024 16:23-0400 Body mass index (BMI) [Ratio] 50.55 kg/m2 Vaughn Decker MD Work Phone: [facility] 04-17-2024 16:23-0400 Body weight 129.4 kg Vaughn Decker MD Work Phone: [facility] 04-17-2024 16:23-0400 Diastolic blood pressure 74 mm[Hg] Vaughn Decker MD Work Phone: [facility] 04-17-2024 16:23-0400 Heart rate 76 /min Vaughn Decker MD Work Phone: [facility] 04-17-2024 16:23-0400 Respiratory rate 16 /min Vaughn Decker MD Work Phone: [facility] 04-17-2024 16:23-0400 SaO2% (BldA) [Mass fraction] 96 % Vaughn Decker MD Work Phone: [facility] 04-17-2024 16:23-0400 Systolic blood pressure 119 mm[Hg] Vaughn Decker MD Work Phone: [facility] 04-10-2024 08:42-0400 Body mass index (BMI) [Ratio] 50.13 kg/m2 Rosy Esteban MD Work Phone: [facility] 04-10-2024 08:42-0400 Body weight 128.37 kg Rosy Esteban MD Work Phone: [facility] 04-10-2024 08:42-0400 Diastolic blood pressure 97 mm[Hg] Rosy Esteban MD Work Phone: [facility] 04-10-2024 08:42-0400 Heart rate 90 /min Rosy Esteban MD Work Phone: [facility] 04-10-2024 08:42-0400 Systolic blood pressure 164 mm[Hg] Rosy Esteban MD Work Phone: [facility] 03-11-2024 11:19-0400 Body height 160 cm Uriah Korina [employer]UTER [employer] Work Phone: [facility] 03-11-2024 11:19-0400 Body mass index (BMI) [Ratio] 50.13 kg/m2 Uriah Korina COMMUTER [employer] MARKETING ASSISTANT Work Phone: [facility] 03-11-2024 11:19-0400 Body weight 128.37 kg Uriah Korina COMMUTER [employer]ING ASSISTANT Work Phone: [facility] 03-11-2024 11:19-0400 Diastolic blood pressure 69 mm[Hg] Uriah Korina COMMUTER [employer] MARKETING ASSISTANT Work Phone: [facility] 03-11-2024 11:19-0400 Heart rate 78 /min Uriah Korina COMMUTER [employer] MARKETING ASSISTANT Work Phone: [facility] 03-11-2024 11:19-0400 Systolic blood pressure 164 mm[Hg] Uriah Korina COMMUTER [employer] MARKETING ASSISTANT Work Phone: [facility] 12-15-2023 13:12-0400 Body weight 129 kg [facility] P[employer] MARKETING ASSISTANT Work Phone: [facility] 12-15-2023 13:12-0400 Diastolic blood pressure 79 mm[Hg] Eliceo Kupiec COMMUTER [employer] MARKETING ASSISTANT Work Phone: [facility] 12-15-2023 13:12-0400 Heart rate 85 /[facility] [employer] MARKETING ASSISTANT Work Phone: [facility] 12-15-2023 13:12-0400 SaO2% (BldA) [Mass fraction] 100 % Eliceo Kupiec COMMUTER [employer] MARKETING ASSISTANT Work Phone: [facility] 12-15-2023 13:12-0400 Systolic blood pressure 117 mm[Hg] Eliceo Kupiec COMMUTER [employer] MARK[employer]ING ASSISTANT Work Phone: [facility] 08-28-2023 08:40-0500 Body height 160.02 cm RN CARDIOVASCULAR ICU-C Leonora Davalos RN CARDIOVASCULAR ICU Work Phone: [facility] 08-28-2023 08:26-0500 Body mass index (BMI) [Ratio] 50 kg/m2 RN CARDIOVASCULAR ICU-C Leonora Starrson RN CARDIOVASCULAR ICU Work Phone: [facility] 08-28-2023 08:26-0500 Body weight 128.02 kg RN CARDIOVASCULAR ICU-C Leonora tSarrson RN CARDIOVASCULAR ICU Work Phone: [facility] 08-28-2023 08:26-0500 Diastolic blood pressure 84 mm[Hg] RN CARDIOVASCULAR ICU-C Leonoracarlos StarrDavalos RN CARDIOVASCULAR ICU Work Phone: [facility] 08-28-2023 08:26-0500 Systolic blood pressure 132 mm[Hg] RN CARDIOVASCULAR ICU-C Leonora Davalos RN CARDIOVASCULAR ICU Work Phone: [facility] 07-07-2023 14:24-0400 Body height 160.02 cm RN CARDIOVASCULAR ICU-C Leonora Davalos RN CARDIOVASCULAR ICU Work Phone: [facility] 07-07-2023 14:24-0400 Body mass index (BMI) [Ratio] 49.2 kg/m2 RN CARDIOVASCULAR ICU-C Leonora Davalos RN CARDIOVASCULAR ICU Work Phone: [facility] 07-07-2023 14:24-0400 Body weight 126.09 kg RN CARDIOVASCULAR ICU-C Leonora Starrson RN CARDIOVASCULAR ICU Work Phone: [facility] 07-07-2023 14:24-0400 Diastolic blood pressure 90 mm[Hg] RN CARDIOVASCULAR ICU-C Leonora Davalos RN CARDIOVASCULAR ICU Work Phone: [facility] 07-07-2023 14:24-0400 Heart rate 77 /min RN CARDIOVASCULAR ICU-C Leonora Davalos RN CARDIOVASCULAR ICU Work Phone: [facility] 07-07-2023 14:24-0400 Respiratory rate 18 /min RN CARDIOVASCULAR ICU-C Leonora Davalos RN CARDIOVASCULAR ICU Work Phone: [facility] 07-07-2023 14:24-0400 Systolic blood pressure 129 mm[Hg] RN CARDIOVASCULAR ICU-C Leonora Davalos RN CARDIOVASCULAR ICU Work Phone: [facility] 06-28-2023 06:45-0400 Body mass index (BMI) [Ratio] 48.6 kg/m2 RN CARDIOVASCULAR ICU-C Leonora Davalos RN CARDIOVASCULAR ICU Work Phone: [facility] 06-28-2023 06:45-0400 Body temperature 96.5 [degF] RN CARDIOVASCULAR ICU-C Leonora Davalos RN CARDIOVASCULAR ICU Work Phone: [facility] 06-28-2023 06:45-0400 Body weight 124.73 kg RN CARDIOVASCULAR ICU-C Leonora Davalos RN CARDIOVASCULAR ICU Work Phone: [facility] 06-28-2023 06:45-0400 Diastolic blood pressure 78 mm[Hg] RN CARDIOVASCULAR ICU-C Leonora Davalos RN CARDIOVASCULAR ICU Work Phone: [facility] 06-28-2023 06:45-0400 Heart rate 95 /min RN CARDIOVASCULAR ICU-C Leonora Davalos RN CARDIOVASCULAR ICU Work Phone: [facility] 06-28-2023 06:45-0400 Respiratory rate 20 /min RN CARDIOVASCULAR ICU-C Leonora Davalos RN CARDIOVASCULAR ICU Work Phone: [facility] 06-28-2023 06:45-0400 SaO2% (BldA) [Mass fraction] 96 % RN CARDIOVASCULAR ICU-C Leonora Davalos RN CARDIOVASCULAR ICU Work Phone: [facility] 06-28-2023 06:45-0400 Systolic blood pressure 120 mm[Hg] RN CARDIOVASCULAR ICU-C Leonora Davalos RN CARDIOVASCULAR ICU Work Phone: [facility] 05-03-2023 09:17-0400 Body height 160 cm Vaughn Decker MD Work Phone: [facility] 05-03-2023 09:17-0400 Body weight 124.65 kg Vaughn Decker MD Work Phone: [facility] 05-03-2023 09:17-0400 Diastolic blood pressure 85 mm[Hg] Vaughn Decker MD Work Phone: [facility] 05-03-2023 09:17-0400 Heart rate 85 /min Vaughn Decker MD Work Phone: [facility] 05-03-2023 09:17-0400 SaO2% (BldA) [Mass fraction] 96 % Vaughn Decker MD Work Phone: [facility] 05-03-2023 09:17-0400 Systolic blood pressure 128 mm[Hg] Vaughn Decker MD Work Phone: [facility] 04-17-2023 12:51-0400 Body height 160.02 cm RN CARDIOVASCULAR ICU-C Leonora Davalos RN CARDIOVASCULAR ICU Work Phone: [facility] 04-17-2023 12:51-0400 Body weight 124.73 kg RN CARDIOVASCULAR ICU-C Leonora Davalos RN CARDIOVASCULAR ICU Work Phone: [facility] 04-17-2023 12:51-0400 Heart rate 86 /min RN CARDIOVASCULAR ICU-C Leonora Davalos RN CARDIOVASCULAR ICU Work Phone: [facility] 04-17-2023 12:51-0400 SaO2% (BldA) [Mass fraction] 97 % RN CARDIOVASCULAR ICU-C Leonora Davalos RN CARDIOVASCULAR ICU Work Phone: [facility] 04-17-2023 09:04-0400 Body mass index (BMI) [Ratio] 48.6 kg/m2 RN CARDIOVASCULAR ICU-Yeyo Davalos RN CARDIOVASCULAR ICU Work Phone: [facility] 04-17-2023 09:04-0400 Body weight 124.73 kg RN CARDIOVASCULAR ICU-C Leonora Davalos RN CARDIOVASCULAR ICU Work Phone: [facility] 04-17-2023 09:04-0400 Diastolic blood pressure 72 mm[Hg] RN CARDIOVASCULAR ICU-C Leonora Davalos RN CARDIOVASCULAR ICU Work Phone: [facility] 04-17-2023 09:04-0400 Heart rate 98 /min RN CARDIOVASCULAR ICU-C Leonora Davalos RN CARDIOVASCULAR ICU Work Phone: [facility] 04-17-2023 09:04-0400 Respiratory rate 22 /min RN CARDIOVASCULAR ICU-C Leonora Davalos RN CARDIOVASCULAR ICU Work Phone: [facility] 04-17-2023 09:04-0400 Systolic blood pressure 126 mm[Hg] RN CARDIOVASCULAR ICU-C Leonora Davalos RN CARDIOVASCULAR ICU Work Phone: [facility] 03-27-2023 07:43-0400 Body mass index (BMI) [Ratio] 47.8 kg/m2 RN CARDIOVASCULAR ICU-C Leonora Davalos RN CARDIOVASCULAR ICU Work Phone: [facility] 03-27-2023 07:43-0400 Body temperature 96.2 [degF] RN CARDIOVASCULAR ICU-C Leonora Davalos RN CARDIOVASCULAR ICU Work Phone: [facility] 03-27-2023 07:43-0400 Body weight 122.46 kg RN CARDIOVASCULAR ICU-C Leonora Davalos RN CARDIOVASCULAR ICU Work Phone: [facility] 03-27-2023 07:43-0400 Diastolic blood pressure 84 mm[Hg] RN CARDIOVASCULAR ICU-C Leonora Davalos RN CARDIOVASCULAR ICU Work Phone: [facility] 03-27-2023 07:43-0400 Heart rate 81 /min RN CARDIOVASCULAR ICU-C Leonora Davalos RN CARDIOVASCULAR ICU Work Phone: [facility] 03-27-2023 07:43-0400 Respiratory rate 18 /min RN CARDIOVASCULAR ICU-C Leonora Davalos RN CARDIOVASCULAR ICU Work Phone: [facility] 03-27-2023 07:43-0400 SaO2% (BldA) [Mass fraction] 96 % RN CARDIOVASCULAR ICU-C Leonora Davalos RN CARDIOVASCULAR ICU Work Phone: [facility] 03-27-2023 07:43-0400 Systolic blood pressure 143 mm[Hg] RN CARDIOVASCULAR ICU-C Leonora Davalos RN CARDIOVASCULAR ICU Work Phone: [facility] 01-23-2023 18:15-0400 Body mass index (BMI) [Ratio] 49 kg/m2 RN CARDIOVASCULAR ICU-C Leonora Davalos RN CARDIOVASCULAR ICU Work Phone: [facility] 01-23-2023 18:15-0400 Body temperature 98.2 [degF] RN CARDIOVASCULAR ICU-C Leonora Davalos RN CARDIOVASCULAR ICU Work Phone: [facility] 01-23-2023 18:15-0400 Body weight 125.64 kg RN CARDIOVASCULAR ICU-C Leonora Davalos RN CARDIOVASCULAR ICU Work Phone: [facility] 01-23-2023 18:15-0400 Diastolic blood pressure 70 mm[Hg] RN CARDIOVASCULAR ICU-C Leonora Davalos RN CARDIOVASCULAR ICU Work Phone: [facility] 01-23-2023 18:15-0400 Heart rate 77 /min RN CARDIOVASCULAR ICU-C Leonora Davalos RN CARDIOVASCULAR ICU Work Phone: [facility] 01-23-2023 18:15-0400 Respiratory rate 18 /min RN CARDIOVASCULAR ICU-C Leonora Davalos RN CARDIOVASCULAR ICU Work Phone: [facility] 01-23-2023 18:15-0400 SaO2% (BldA) [Mass fraction] 97 % RN CARDIOVASCULAR ICU-C Leonora Davalos RN CARDIOVASCULAR ICU Work Phone: [facility] 01-23-2023 18:15-0400 Systolic blood pressure 140 mm[Hg] RN CARDIOVASCULAR ICU-C Leonora Davalos RN CARDIOVASCULAR ICU Work Phone: [facility] 12-26-2022 07:41-0400 Body mass index (BMI) [Ratio] 48.3 kg/m2 RN CARDIOVASCULAR ICU-C Leonora Davalos RN CARDIOVASCULAR ICU Work Phone: [facility] 12-26-2022 07:41-0400 Body temperature 97.5 [degF] RN CARDIOVASCULAR ICU-C Leonora aDvalos RN CARDIOVASCULAR ICU Work Phone: [facility] 12-26-2022 07:41-0400 Body weight 123.83 kg RN CARDIOVASCULAR ICU-C Leonora Davalos RN CARDIOVASCULAR ICU Work Phone: [facility] 12-26-2022 07:41-0400 Diastolic blood pressure 81 mm[Hg] RN CARDIOVASCULAR ICU-C Leonora Davalos RN CARDIOVASCULAR ICU Work Phone: [facility] 12-26-2022 07:41-0400 Heart rate 83 /min RN CARDIOVASCULAR ICU-C Leonora Davalos RN CARDIOVASCULAR ICU Work Phone: [facility] 12-26-2022 07:41-0400 Respiratory rate 18 /min RN CARDIOVASCULAR ICU-C Loenora Davalos RN CARDIOVASCULAR ICU Work Phone: [facility] 12-26-2022 07:41-0400 SaO2% (BldA) [Mass fraction] 99 % RN CARDIOVASCULAR ICU-C Leonora Davalos RN CARDIOVASCULAR ICU Work Phone: [facility] 12-26-2022 07:41-0400 Systolic blood pressure 145 mm[Hg] RN CARDIOVASCULAR ICU-C Leonora Davalos RN CARDIOVASCULAR ICU Work Phone: [facility] 2022 08:37-0500 Body height 160.[address] Shiraz Stephens Work Phone: [facility] 2022 08:37-0500 Body mass index (BMI) [Ratio] 48.5 kg/m2 Dr. Shiraz Stephens Work Phone: [facility] 2022 08:37-0500 Body weight 124.[address] Shiraz Stephens Work Phone: [facility] 2022 08:37-0500 Diastolic blood pressure 82 mm[Hg] Dr. Shiraz Stephens Work Phone: [facility] 2022 08:37-0500 Heart rate 78 /min Dr. Shiraz Stephens Work Phone: [facility] 2022 08:37-0500 Respiratory rate 18 /min Dr. Shiraz Stephens Work Phone: [facility] 2022 08:37-0500 SaO2% (BldA) [Mass fraction] 95 % Dr. Shiraz Stephens Work Phone: [facility] 2022 08:37-0500 Systolic blood pressure 135 mm[Hg] Dr. Shiraz Stephens Work Phone: [facility] 11-01-2022 13:25-0500 Diastolic blood pressure 55 mm[Hg] Rosy Esteban MD Work Phone: [facility] 11-01-2022 13:25-0500 Heart rate 74 /min Rosy Esteban MD Work Phone: [facility] 11-01-2022 13:25-0500 Respiratory rate 21 /min Rosy Esteban MD Work Phone: [facility] 11-01-2022 13:25-0500 SaO2% (BldA) [Mass fraction] 95 % Rosy Esteban MD Work Phone: [facility] 11-01-2022 13:25-0500 Systolic blood pressure 136 mm[Hg] Rosy Esteban MD Work Phone: [facility] 11-01-2022 12:13-0500 Body mass index (BMI) [Ratio] 47.3 kg/m2 Rosy Esteban MD Work Phone: [facility] 11-01-2022 12:13-0500 Body weight 121.11 kg Rosy Esteban MD Work Phone: [facility] 09-16-2022 10:49-0500 Body height 160.[address] Shiraz Stephens Work Phone: [facility] 09-16-2022 10:49-0500 Body mass index (BMI) [Ratio] 48.5 kg/m2 Dr. Shiraz Stephens Work Phone: [facility] 09-16-2022 10:49-0500 Body weight 124.[address] Shiraz Stephens Work Phone: [facility] 09-16-2022 10:49-0500 Diastolic blood pressure 80 mm[Hg] Dr. Shiraz Stephens Work Phone: [facility] 09-16-2022 10:49-0500 Heart rate 82 /min Dr. Shiraz Stephens Work Phone: [facility] 09-16-2022 10:49-0500 SaO2% (BldA) [Mass fraction] 93 % Dr. Shiraz Stephens Work Phone: [facility] 09-16-2022 10:49-0500 Systolic blood pressure 119 mm[Hg] Dr. Shiraz Stephens Work Phone: [facility] 09-06-2022 16:42-0500 Body height 160 cm Vaughn Decker MD Work Phone: [facility] 09-06-2022 16:42-0500 Body weight 125.19 kg Vaughn Decker MD Work Phone: [facility] 09-06-2022 16:42-0500 Diastolic blood pressure 71 mm[Hg] Vaughn Decker MD Work Phone: [facility] 09-06-2022 16:42-0500 Heart rate 69 /min Vaughn Decker MD Work Phone: [facility] 09-06-2022 16:42-0500 Respiratory rate 16 /min Vaughn Decker MD Work Phone: [facility] 09-06-2022 16:42-0500 SaO2% (BldA) [Mass fraction] 95 % Vaughn Decker MD Work Phone: [facility] 09-06-2022 16:42-0500 Systolic blood pressure 118 mm[Hg] Vaughn Decker MD Work Phone: [facility] 08-28-2022 00:22-0500 Heart rate 75 /min Dr. Shiraz Stephens Work Phone: [facility] 08-28-2022 00:22-0500 Respiratory rate 15 /min Dr. Shiraz Stephens Work Phone: [facility] 08-28-2022 00:22-0500 SaO2% (BldA) [Mass fraction] 97 % Dr. Shiraz Stephens Work Phone: [facility] 08-27-2022 20:17-0500 Body height 160.[address] Shiraz Stephens Work Phone: [facility] Work Phone: 08-27-2022 20:17-0500 Body mass index (BMI) [Ratio] 48.9 kg/m2 Dr. Shiraz Stephens Work Phone: [facility] 08-27-2022 20:17-0500 Body temperature 96.4 [degF] Dr. Shiraz Stephens Work Phone: [facility] 08-27-2022 20:17-0500 Body weight 125.[address] Shiraz Stephens Work Phone: [facility] 08-27-2022 20:17-0500 Diastolic blood pressure 68 mm[Hg] Dr. Shiraz Stephens Work Phone: [facility] 08-27-2022 20:17-0500 Systolic blood pressure 138 mm[Hg] Dr. Shiraz Stephens Work Phone: [facility] 07-28-2022 15:56-0500 Body height 160.[address] Shiraz Stephens Work Phone: [facility] Work Phone: 07-28-2022 15:56-0500 Body mass index (BMI) [Ratio] 49.4 kg/m2 Dr. Shiraz Stephens Work Phone: [facility] 07-28-2022 15:56-0500 Body temperature 97.9 [degF] Dr. Shiraz Stephens Work Phone: [facility] 07-28-2022 15:56-0500 Body weight 126.[address] Shiraz Stephens Work Phone: [facility] 07-28-2022 15:56-0500 Diastolic blood pressure 82 mm[Hg] Dr. Shiraz Stephens Work Phone: [facility] 07-28-2022 15:56-0500 Heart rate 78 /min Dr. Shiraz Stephens Work Phone: [facility] 07-28-2022 15:56-0500 Respiratory rate 18 /min Dr. Shiraz Stephens Work Phone: [facility] 07-28-2022 15:56-0500 SaO2% (BldA) [Mass fraction] 97 % Dr. Shiraz Stephens Work Phone: [facility] 07-28-2022 15:56-0500 Systolic blood pressure 150 mm[Hg] Dr. Shiraz Stephens Work Phone: [facility] 07-26-2022 11:25-0500 Body mass index (BMI) [Ratio] 49 kg/m2 Dr. Shiraz Stephens Work Phone: [facility] 07-26-2022 11:25-0500 Body weight 125.[address] Shiraz Stephens Work Phone: [facility] 07-26-2022 11:25-0500 Diastolic blood pressure 90 mm[Hg] Dr. Shiraz Stephens Work Phone: [facility] 07-26-2022 11:25-0500 Systolic blood pressure 153 mm[Hg] Dr. Shiraz Stephens Work Phone: [facility] 06-22-2022 10:48-0400 Body mass index (BMI) [Ratio] 48.2 kg/m2 Dr. Shiraz Stephens Work Phone: [facility] 06-22-2022 10:48-0400 Body temperature 97.1 [degF] Dr. Shiraz Stephens Work Phone: [facility] 06-22-2022 10:48-0400 Body weight 123.[address] Shiraz Stephens Work Phone: [facility] 06-22-2022 10:48-0400 Diastolic blood pressure 73 mm[Hg] Dr. Shiraz tSephens Work Phone: [facility] 06-22-2022 10:48-0400 Heart rate 82 /min Dr. Shiraz Stephens Work Phone: [facility] 06-22-2022 10:48-0400 Respiratory rate 18 /min Dr. Shiraz Stephens Work Phone: [facility] 06-22-2022 10:48-0400 SaO2% (BldA) [Mass fraction] 99 % Dr. Shiraz Stephens Work Phone: [facility] 06-22-2022 10:48-0400 Systolic blood pressure 133 mm[Hg] Dr. Shiraz Stephens Work Phone: [facility] 06-16-2022 15:28-0400 Body mass index (BMI) [Ratio] 47.9 kg/m2 Dr. Shiraz Stephens Work Phone: [facility] 06-16-2022 15:28-0400 Body temperature 98.4 [degF] Dr. Shiraz Stephens Work Phone: [facility] 06-16-2022 15:28-0400 Body weight 122.[address] Shiraz Stephens Work Phone: [facility] 06-16-2022 15:28-0400 Diastolic blood pressure 70 mm[Hg] Dr. Shiraz Stephens Work Phone: [facility] 06-16-2022 15:28-0400 Heart rate 79 /min Dr. Shiraz Stephens Work Phone: [facility] 06-16-2022 15:28-0400 Respiratory rate 18 /min Dr. Shiraz Stephens Work Phone: [facility] 06-16-2022 15:28-0400 SaO2% (BldA) [Mass fraction] 96 % Dr. Shiraz Stephens Work Phone: [facility] 06-16-2022 15:28-0400 Systolic blood pressure 120 mm[Hg] Dr. Shiraz Stephens Work Phone: [facility] 06-02-2022 11:09-0400 Body mass index (BMI) [Ratio] 48.2 kg/m2 Dr. Shiraz Stephens Work Phone: [facility] 06-02-2022 11:09-0400 Body weight 123.[address] Shiraz Stephens Work Phone: [facility] 06-02-2022 11:09-0400 Diastolic blood pressure 77 mm[Hg] Dr. Shiraz Stephens Work Phone: [facility] 06-02-2022 11:09-0400 Heart rate 86 /min Dr. Shiraz Stephens Work Phone: [facility] 06-02-2022 11:09-0400 Respiratory rate 16 /min Dr. Shiraz Stephens Work Phone: [facility] 06-02-2022 11:09-0400 SaO2% (BldA) [Mass fraction] 95 % Dr. Shiraz Stephens Work Phone: [facility] 06-02-2022 11:09-0400 Systolic blood pressure 110 mm[Hg] Dr. Shiraz Stephens Work Phone: [facility] 02-14-2022 08:35-0400 Body height 160 cm Tanya Ruano [employer]ER [employer] Work Phone: [facility] 02-14-2022 08:35-0400 Body weight 122.92 kg Tanya Ruano COMMUTER [employer] ASSISTANT Work Phone: [facility] 02-14-2022 08:35-0400 Diastolic blood pressure 70 mm[Hg] Tanya Ruano COMMUTER [employer]ING ASSISTANT Work Phone: [facility] 02-14-2022 08:35-0400 Heart rate 91 /min Tanya Ruano COMMUTER [employer]ING ASSISTANT Work Phone: [facility] 02-14-2022 08:35-0400 SaO2% (BldA) [Mass fraction] 95 % Tanya Ruano [employer]ER [employer]ING ASSIST[employer] Work Phone: [facility] 02-14-2022 08:35-0400 Systolic blood pressure 122 mm[Hg] Tanya Ruano [employer]UTER [employer]IST[employer] Work Phone: [facility] 01-26-2022 19:54-0400 Body height 160.[address] Shiraz Stephens Work Phone: [facility] Work Phone: 01-26-2022 19:54-0400 Body mass index (BMI) [Ratio] 48.2 kg/m2 Dr. Shiraz Stephens Work Phone: [facility] Work Phone: 01-26-2022 19:54-0400 Body temperature 98.1 [degF] Dr. Shiraz Stephens Work Phone: [facility] Work Phone: 01-26-2022 19:54-0400 Body weight 123.[address] Shiraz Stephens Work Phone: [facility] Work Phone: 01-26-2022 19:54-0400 Diastolic blood pressure 80 mm[Hg] Dr. Shiraz Stephens Work Phone: [facility] Work Phone: 01-26-2022 19:54-0400 Heart rate 105 /min Dr. Shiraz Stephens Work Phone: [facility] Work Phone: 01-26-2022 19:54-0400 Respiratory rate 18 /min Dr. Shiraz Stephens Work Phone: [facility] Work Phone: 01-26-2022 19:54-0400 SaO2% (BldA) [Mass fraction] 97 % Dr. Shiraz Stephens Work Phone: [facility] Work Phone: 01-26-2022 19:54-0400 Systolic blood pressure 150 mm[Hg] Dr. Shiraz Stephens Work Phone: [facility] Work Phone: 01-25-2022 11:31-0400 Body temperature 97.4 [degF] Dr. Shiraz Stephens Work Phone: [facility] Work Phone: 01-25-2022 11:31-0400 Heart rate 86 /min Dr. Shiraz Stephens Work Phone: [facility] Work Phone: 01-25-2022 11:31-0400 SaO2% (BldA) [Mass fraction] 98 % Dr. Shiraz Stephens Work Phone: [facility] Work Phone: 01-12-2022 07:51-0400 Body height 160 cm Rosy Esteban MD Work Phone: [facility] 01-12-2022 07:51-0400 Body weight 122.47 kg Rosy Esteban MD Work Phone: [facility] 01-12-2022 07:51-0400 Diastolic blood pressure 77 mm[Hg] Rosy Esteban MD Work Phone: [facility] 01-12-2022 07:51-0400 Heart rate 93 /min Rosy Esteban MD Work Phone: [facility] 01-12-2022 07:51-0400 Systolic blood pressure 147 mm[Hg] Rosy Esteban MD Work Phone: [facility] 11-29-2021 07:43-0400 Body height 160.[address] Shiraz Stephens Work Phone: [facility] Work Phone: 11-29-2021 07:43-0400 Body mass index (BMI) [Ratio] 48.1 kg/m2 Dr. Shiraz Stephens Work Phone: [facility] Work Phone: 11-29-2021 07:43-0400 Body temperature 97.6 [degF] Dr. Shiraz Stephens Work Phone: [facility] Work Phone: 11-29-2021 07:43-0400 Body weight 123.[address] Shiraz Stephens Work Phone: [facility] Work Phone: 11-29-2021 07:43-0400 Diastolic blood pressure 75 mm[Hg] Dr. Shiraz Stephens Work Phone: [facility] Work Phone: 11-29-2021 07:43-0400 Heart rate 105 /min Dr. Shiraz Stephens Work Phone: [facility] Work Phone: 11-29-2021 07:43-0400 Respiratory rate 16 /min Dr. Shiraz Stephens Work Phone: [facility] Work Phone: 11-29-2021 07:43-0400 SaO2% (BldA) [Mass fraction] 95 % Dr. Shiraz Stephens Work Phone: [facility] Work Phone: 11-29-2021 07:43-0400 Systolic blood pressure 114 mm[Hg] Dr. Shiraz Stephens Work Phone: [facility] Work Phone: 11-04-2021 09:32-0500 Diastolic blood pressure 86 mm[Hg] Dr. Shiraz Stephens Work Phone: [facility] Work Phone: 11-04-2021 09:32-0500 Heart rate 86 /min Dr. Shiraz Stephens Work Phone: [facility] Work Phone: 11-04-2021 09:32-0500 Respiratory rate 16 /min Dr. Shiraz Stephens Work Phone: [facility] Work Phone: 11-04-2021 09:32-0500 Systolic blood pressure 138 mm[Hg] Dr. Shiraz Stephens Work Phone: [facility] Work Phone: 10-26-2021 07:10-0500 Body mass index (BMI) [Ratio] 48.9 kg/m2 Dr. Shiraz Stephens Work Phone: [facility] Work Phone: 10-26-2021 07:10-0500 Body temperature 97.2 [degF] Dr. Shiraz Stephens Work Phone: [facility] Work Phone: 10-26-2021 07:10-0500 Body weight 125.[address] Shiraz Stephens Work Phone: [facility] Work Phone: 10-26-2021 07:10-0500 Diastolic blood pressure 82 mm[Hg] Dr. Shiraz Stephens Work Phone: [facility] Work Phone: 10-26-2021 07:10-0500 Heart rate 103 /min Dr. Shiraz Stephens Work Phone: [facility] Work Phone: 10-26-2021 07:10-0500 Respiratory rate 18 /min Dr. Shiraz Stephens Work Phone: [facility] Work Phone: 10-26-2021 07:10-0500 SaO2% (BldA) [Mass fraction] 97 % Dr. Shiraz Stephens Work Phone: [facility] Work Phone: 10-26-2021 07:10-0500 Systolic blood pressure 120 mm[Hg] Dr. Shiraz Stephens Work Phone: [facility] Work Phone: 09-16-2021 14:12-0500 Body weight 130.[address] Shiraz Stephens Work Phone: [facility] Work Phone: 08-24-2021 13:21-0500 Body mass index (BMI) [Ratio] 51.2 kg/m2 Dr. Shiraz Stephens Work Phone: [facility] Work Phone: 08-24-2021 13:21-0500 Body weight 131.[address] Shiraz Stephens Work Phone: [facility] Work Phone: 08-24-2021 13:21-0500 Diastolic blood pressure 88 mm[Hg] Dr. Shiraz Stephens Work Phone: [facility] Work Phone: 08-24-2021 13:21-0500 Heart rate 72 /min Dr. Shiraz Stephens Work Phone: [facility] Work Phone: 08-24-2021 13:21-0500 Respiratory rate 16 /min Dr. Shiraz Stephens Work Phone: [facility] Work Phone: 08-24-2021 13:21-0500 Systolic blood pressure 132 mm[Hg] Dr. Shiraz Stephens Work Phone: [facility] Work Phone: 07-03-2017 07:13-0400 BMI (Body Mass Index) 46.51 kg/m2 [facility] [place] [facility] Work Phone: 07-03-2017 07:13-0400 Body Temperature 98.1 [degF] [facility] [place] Work Phone: 07-03-2017 07:13-0400 BP Diastolic 89 mm[Hg] [facility] [place] Work Phone: 07-03-2017 07:13-0400 BP Systolic 137 mm[Hg] [facility] [place] Work Phone: 07-03-2017 07:13-0400 Height 162.56 cm [facility] [place] Work Phone: 07-03-2017 07:13-0400 Pulse (Heart Rate) 87 /min [facility] [place] Work Phone: 07-03-2017 07:13-0400 Respiratory Rate 18 /min [facility] [place] Work Phone: 07-03-2017 07:13-0400 Weight 122.93 kg [facility] [place] Work Phone: Encounters Encounter Date Encounter Type Care Provider Facility Start: 09-08-2025 ambulatory Leonora Davalos RN CARDIOVASCULAR ICU Faci lity:[facility] Start: 06-30-2025 ambulatory Cesar Smith Facility:[facility] Start: 06-30-2025 End: 06-30-2025 ambulatory Leonora Davalos RN CARDIOVASCULAR ICU Facility:[facility] Start: 06-27-2025 End: 06-27-[address] Carson Hobbs MD -[facility] Work Phone: Start: 06-27-2025 End: 06-27-2025 ambulatory Leonora Davalos RN CARDIOVASCULAR ICU-C Work Phone: -[facility] Start: 05-26-2025 Encounter for genera l adult medical examination without abnormal findings Ada Wheeler [facility] Start: 05-21-2025 End: 05-21-2025 Telephone encounter Marlon Cesar MD Work Phone: Colorectal Surgery Comment on above: Care Coordination (F ollow up) Start: 05-21-2025 ambulatory MARLON CESAR Facility:[facility] Start: 05-21-2025 End: 05-21-2025 Subsequent hospital visit by physician Marlon Cesar MD Work Phone: [facility] Endoscopy - ENDO Comment on above: Diverticulitis [K57. 92] Start: 05-20-2025 End: 05-20-2025 Telephone encounter Eliceo Ambriz APRN.CNP Work Phone: Endocrinology Comment on above: Patient Question Start: 05-14-2025 End: 05-14-2025 ambulatory Marlon Cesar MD Work Phone: [facility] Endoscopy - ENDO Start: 05-09-2025 End: 05-09-2025 ambulatory Leonora Davalos RN CARDIOVASCULAR ICU-C Work Phone: -Sleep Lab Start: 05-09-2025 End: 05-09-2025 Patient encounter procedure RN CARDIOVASCULAR ICU Ada Wheeler -[facility] Work Phone: Start: 05-09-2025 End: 05-09-2025 ambulatory Ada Wheeler Facility:[facility] Start: 04-23-2025 End: 04-23-2025 Telephone encounter Martine Blake PA-C Work Phone: Pre Anesthesia Comment on above: Patient Update Start: 04-23-2025 ambulatory ROSY CARLITO Facility:[facility] Start: 04-23-2025 End: 04-23-2025 Subsequent hospital visit by physician Ct Prep [facility] Comment on above: Diverticulitis of in testine, part unspecified, without perforation or abscess without bleeding [K57.92] Diverticulitis [K57. 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, without long-term current use of insulin (HCC) (Primary Dx); Pure hypercholesterolemia; Essential hypertension; Coronary artery disease involving [place] coronary artery of [place] heart without angina pectoris; Chronic diastolic CHF (congestive heart failure) ([facility]); Paroxysmal atrial fibrillation (HCC); MARILIA on CPAP; Dyspnea, unspecified type; Post-operative nausea and vomiting; Nonalcoholic fatty liver disease without nonalcoholic steatohepatitis ([facility]); History of colorectal cancer; Gastroesophageal reflux disease without esophagitis; Postoperative hypothyroidism; History of left breast cancer; Rheumatoid arthritis of other site, unspecified whether rheumatoid factor present ([facility]); Anxiety and depression; Obesity, Class III, BMI >= 40; History of DVT (deep vein thrombosis); 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 Start: 04-23-2025 End: 04-23-2025 ambulatory LEONORA DAVALOS Facility:[facility] Start: 04-22-2025 End: 04-22-2025 Patient encounter procedure RN CARDIOVASCULAR ICU Ada Wheeler -[facility] Work Phone: Start: 04-22-2025 End: 04-22-2025 ambulatory Leonora Davalos RN CARDIOVASCULAR ICU-C Work Phone: -[facility] Start: 04-21-2025 End: 04-21-2025 Orders Only Elmer Manley MD Work Phone: [facility] Start: 04-11-2025 End: 04-11-2025 Telephone encounter Marlon Cesar MD Work Phone: Colorectal Surgery Comment on above: Schedule Surgery (Ne w OR date to 05/22) Start: 04-11-2025 End: 04-11-2025 ambulatory ROSY ESTEBAN Facility:[facility] Start: 04-08-2025 End: 04-11-2025 Telephone encounter Christine Lobo LPN Pre Anesthesia Comment on above: Preparations For Nick kirsten Start: 04-07-2025 End: 04-10-2025 Telephone encounter Eliceo Ambriz APRN.CNP Work Phone: Endocrinology Comment on above: Patient Update Start: 04-07-2025 End: 04-07-2025 Admission to establishment [place] [id number] Work Phone: Pre Anesthesia Start: 04-07-2025 End: 04-07-2025 Anesthesia consultation [place] [id number] Work Phone: Pre Anesthesia Comment on above: 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, without long-term current use of insulin (HCC) (Primary Dx); Pure hypercholesterolemia; Essential hypertension; Coronary artery disease involving [place] coronary artery of [place] heart without angina pectoris; Chronic diastolic CHF (congestive heart failure) (HCC); MARILIA on CPAP; Nonalcoholic fatty liver disease without nonalcoholic steatohepatitis ([facility]); Gastroesophageal reflux disease without esophagitis; Acute diverticulitis; Rheumatoid arthritis of other site, unspecified whether rheumatoid factor present (HCC); Postoperative hypothyroidism; History of DVT (deep vein thrombosis); Headaches; Anxiety and depression; Dyspnea, unspecified type; History of left breast cancer; UTI symptoms; Dysuria; Post-operative nausea and vomiting; Atrial fibrillation, unspecified type (HCC); 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; Obesity, Class III, BMI >= 40 Start: 04-07-2025 End: 04-07-2025 ambulatory LEONORA DAAVLOS Facility:[facility] Start: 04-07-2025 Encounter for other preprocedural examination LEONORA [facility] Start: 03-30-2025 End: 03-30-2025 Home visit Betsy Fuentes RN Work Phone: [facility] Comment on above: IDT CLINICAL TEAM CO LLABORATION Start: 03-28-2025 End: 03-31-2025 Admission to same day surgery center Mateus Lobo RN Colorectal Surgery Comment on above: Diverticulitis Start: 03-28-2025 End: 03-28-2025 Home visit Jane Martinez RN Work Phone: [facility] Comment on above: SN AGENCY DC W VISIT IV Start: 03-28-2025 End: 03-28-2025 Patient encounter procedure Marlon Cesar MD Work Phone: COLORECTAL SURGERY Comment on above: Diverticulitis (Prim nusrat Dx) Start: 03-28-2025 End: 03-31-2025 ambulatory Mateus Lobo RN Colorectal Surgery Start: 03-27-2025 End: 03-27-2025 Home visit Angelina Castellanos RN Work Phone: [facility] Comment on above: HH TRIAGE PHONE CALL Start: 03-26-2025 End: 04-08-2025 Refill Jonathan [facility] on Comment on above: Opened In Error TRIAGE PHONE CALL SN IV PRN CARE COORDINATION Home Care (Clarifica tion of IV dosing order Flagyl.) Home Care (Patient u pdate) Start: 03-25-2025 End: 03-25-2025 Home visit Jane Martinez RN Work Phone: [facility] Comment on above: SN IV PRN Start: 03-24-2025 End: 03-24-2025 Home visit Joy Katz RN Work Phone: [facility] Comment on above: SN IV PRN SN IV UP TO 90 MIN Start: 03-23-2025 End: 03-23-2025 Home visit Miracle Schumacher RN Work Phone: [facility] Comment on above: SN IV UP TO 90 MIN SN IV 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 EVENT MARKETING SPECIALIST Start: 03-22-2025 End: 03-22-2025 Home visit Miracle Schumacher RN Work Phone: [facility] Comment on above: SN IV UP TO 90 MIN Start: 03-21-2025 End: 03-24-2025 Telephone encounter Betsy Fuentes RN Work Phone: [facility] Comment on above: Patient Update (Home care) Refill Request Start: 03-21-2025 End: 03-21-2025 Home visit Betsy Fuentes RN Work Phone: [facility] Comment on above: SN SOC IV Start: 03-20-2025 End: 03-24-2025 ambulatory Elmer Manley MD Work Phone: [place] Provider Adult Comment on above: CoPat Start Refill Request Edith Start: 03-20-2025 End: 03-26-2025 Telephone encounter Joon Clemens LPN Work Phone: [facility] Comment on above: Home Care (MD wander whitney for [facility] Home Nursing Home Care (Confirmat ion call) CoPat Management (FO R IDC USE ONLY) Start: 03-17-2025 End: 03-20-2025 Evaluation and management of inpatient LEONORA DAVALOS Facility:[facility] Start: 03-17-2025 End: 03-17-2025 Emergency department patient visit LEONORA DAVALOS Facility:[facility] Start: 03-13-2025 End: 03-13-2025 Orders Only Uriah Mueller APRN.SALES AND MARKETING ASSISTANT Work Phone: [facility] Start: 03-12-2025 End: 03-24-2025 ambulatory Uriah Mueller APRN.SALES AND MARKETING ASSISTANT Work Phone: Gastroenterology Comment on above: Medication Start: 02-12-2025 End: 02-12-2025 [facility] Start: 02-05-2025 End: 02-05-2025 ambulatory Leonora Davalos RN CARDIOVASCULAR ICU-C Work Phone: [facility] Work Phone: Start: 02-05-2025 End: 02-05-2025 Patient encounter procedure Antonietta Wade RN CARDIOVASCULAR ICU-C -Ultrasound [facility] Work Phone: Start: 02-05-2025 End: 02-05-2025 Antonietta Wade RN CARDIOVASCULAR ICU-C -Ultrasound [facility] Work Phone: Start: 02-05-2025 End: 02-05-2025 ambulatory Antonietta Wade Facility:[facility] Start: 01-24-2025 End: 01-24-2025 ambulatory Leonoracarlos StarrDavalos RN CARDIOVASCULAR ICU-C Work Phone: -Cat Scan [facility] Start: 01-24-2025 End: 01-24-2025 Patient encounter procedure RN CARDIOVASCULAR ICU Ada Rufener -Cat Scan [facility] Work Phone: Start: 01-24-2025 RN CARDIOVASCULAR ICU Ada Rufener -Cat Scan [facility] Work Phone: Start: 01-23-2025 End: 01-23-2025 ambulatory Leonora Davalos RN CARDIOVASCULAR ICU-C Work Phone: [facility] Work Phone: Start: 01-23-2025 End: 01-23-2025 Patient encounter procedure Antonietta Wade RN CARDIOVASCULAR ICU-C -Laboratory Work Phone: Start: 01-23-2025 End: 01-23-2025 Antonietta Wade RN CARDIOVASCULAR ICU-C -Laboratory Work Phone: Start: 01-23-2025 End: 01-23-2025 Patient encounter procedure Antonietta Wade RN CARDIOVASCULAR ICU-C -[facility] Work Phone: Start: 01-23-2025 End: 01-23-2025 Antonietta Wade RN CARDIOVASCULAR ICU-C -[facility] Work Phone: Start: 01-23-2025 End: 01-24-2025 ambulatory Leonora Davalos RN CARDIOVASCULAR ICU-C Work Phone: [facility] Work Phone: Start: 01-23-2025 End: 01-23-2025 ambulatory Antonietta Wade Facility:[facility] Start: 01-17-2025 End: 01-17-2025 Telemedicine consultation with patient Eliceo Villaltayeyo ANGEL Work Phone: Endocrinology Start: 01-17-2025 End: 01-17-2025 ambulatory Eliceo Ambriz COMMUTER PILOT.SALES AND MARKETING ASSISTANT Work Phone: Endocrinology Comment on above: 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, without long-term current use of insulin (HCC) (Primary Dx); Postoperative hypothyroidism; Class 3 severe obesity with serious comorbidity and body mass index (BMI) of 45.0 to 49.9 in adult, unspecified obesity type; Pure hypercholesterolemia; Essential hypertension; Coronary artery disease involving [place] coronary artery of [place] heart without angina pectoris Start: 01-16-2025 End: 01-16-2025 ambulatory Leonora Davalos RN CARDIOVASCULAR ICU-C Work Phone: [facility] Work Phone: Start: 01-16-2025 End: 01-16-2025 Patient encounter procedure RN CARDIOVASCULAR ICU Ada Wheeler -Sleep Lab Work Phone: Start: 01-16-2025 End: 01-16-2025 RN CARDIOVASCULAR ICU Ada Wheeler -Sleep Lab Work Phone: Start: 01-16-2025 End: 01-16-2025 ambulatory Ada Wheeler Facility:[facility] Start: 01-10-2025 End: 01-10-2025 Patient encounter procedure IJEOMA Wheeler -[facility] Work Phone: Start: 01-10-2025 End: 01-10-2025 RN CARDIOVASCULAR ICU Ada Wheeler [facility] Work Phone: Start: 01-10-2025 End: 01-10-2025 ambulatory Leonora Davalos RN CARDIOVASCULAR ICU Facility:[facility] Start: 01-10-2025 ambulatory Yaya Gray Facility:[facility] Start: 01-10-2025 Non-patient / Non-visit Dr. Yaya fuller DO -[facility] Start: 01-10-2025 Dr. Yaya Gray DO -[facility] Start: 01-07-2025 End: 01-07-2025 Patient encounter procedure Marissa Camp RN CARDIOVASCULAR ICU-C -Pulmonary Services/Neurology Work Phone: Start: 01-07-2025 End: 01-07-2025 Marissa Camp RN CARDIOVASCULAR ICU-C -Pulmonary Services/Neurology Work Phone: Start: 01-07-2025 End: 01-07-2025 ambulatory Marissa Camp RN CARDIOVASCULAR ICU Facility:[facility] Start: 12-30-2024 End: 12-31-2024 Refill Eliceo Ambriz COMMUTER PILOT.SALES AND MARKETING ASSISTANT Work Phone: Endocrinology Comment on above: Refill Request Start: 12-17-2024 ambulatory Leonora Davalos RN CARDIOVASCULAR ICU Faci lity:[facility] Start: 12-17-2024 Non-patient / Non-visit Dr. Ruchi QUAN [facility] Start: 12-17-2024 Dr. Carson Hobbs MD [facility] Start: 12-17-2024 End: 12-17-2024 ambulatory Leonora Davalos RN CARDIOVASCULAR ICU-C Work Phone: [facility] Work Phone: Start: 12-17-2024 End: 12-17-2024 Patient encounter procedure Mehrdad Ruth RN CARDIOVASCULAR ICU-C -Cardiovascu lar Services Work Phone: Start: 12-17-2024 End: 12-17-2024 Mehrdad Ruth RN CARDIOVASCULAR ICU-C -Cardiovascular Services Work Phone: Start: 12-17-2024 End: 12-17-2024 ambulatory Mehrdad Ruth RN CARDIOVASCULAR ICU Facility:[facility] Start: 12-12-2024 End: 12-12-2024 Orders Only Eliceo Ambriz COMMUTER PILOT.SALES AND MARKETING ASSISTANT Work Phone: Endocrinology Comment on above: 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, without long-term current use of insulin (HCC) (Primary Dx) Start: 12-07-2024 End: 12-07-2024 ambulatory Leonora Davalos RN CARDIOVASCULAR ICU-C Work Phone: [facility] Work Phone: Start: 12-07-2024 End: 12-07-2024 Sunita Montgomery PA -Radiology, [facility] Work Phone: Start: 12-07-2024 End: 12-07-2024 ambulatory Leonora Davalos RN CARDIOVASCULAR ICU Facility:[facility] Start: 12-03-2024 ambulatory Yaya Gray Facility:[facility] Start: 12-03-2024 End: 12-03-2024 Marissa Camp RN CARDIOVASCULAR ICU-C -Pulmonary Services/Neurology Work Phone: Start: 12-03-2024 End: 12-03-2024 ambulatory Marissa Camp RN CARDIOVASCULAR ICU Facility:[facility] Start: 11-13-2024 End: 12-27-2024 [facility].SALES AND MARKETING ASSISTANT Work Phone: Endocrinology Start: 11-13-2024 End: 11-13-2024 ambulatory Lenoora Davalos RN CARDIOVASCULAR ICU-C Work Phone: [facility] Work Phone: Start: 11-13-2024 End: 11-13-2024 Patient encounter procedure Mehrdad Ruth RN CARDIOVASCULAR ICU-C -Laboratory Work Phone: Start: 11-13-2024 End: 11-13-2024 Mehrdad Ruth RN CARDIOVASCULAR ICU-C -Laboratory Work Phone: Start: 11-13-2024 End: 11-13-2024 Patient encounter procedure Mehdrad Ruth RN CARDIOVASCULAR ICU-C -[facility] Work Phone: Start: 11-13-2024 End: 11-13-2024 Mehrdad Ruth RN CARDIOVASCULAR ICU-C -[facility] Work Phone: Start: 11-13-2024 End: 11-13-2024 ambulatory Leonora Davalos RN CARDIOVASCULAR ICU Facility:[facility] Start: 11-12-2024 End: 11-13-2024 ambulatory [facility] Facility[facility] Start: 11-08-2024 End: 11-08-2024 ambulatory [facility] COMMUTER PILOT.SALES AND MARKETING ASSISTANT Work Phone: Endocrinology Comment on above: 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SALES AND MARKETING ASSISTANT Work Phone: Endocrinology Comment on above: Patient Question Start: 10-28-2024 End: 01-08-2025 Telephone encounter Arlyn Saldivar DO Work Phone: [facility] Comment on above: New Patient Start: 10-21-2024 End: 10-22-2024 Telephone encounter Eliceo Danielderrick MAGDALENO.SALES AND MARKETING ASSISTANT Work Phone: Endocrinology Comment on above: Medication Problem; Appointment Start: 10-09-2024 End: 10-09-2024 Refill Vaughn Decker MD Work Phone: Endocrinology Comment on above: Refill Request Start: 10-09-2024 End: 10-09-2024 Refill Vaughn Decker MD Work Phone: Endocrinology Comment on above: Refill Request Start: 10-07-2024 End: 10-09-2024 Refill Vaughn Decker MD Work Phone: Endocrinology Comment on above: Refill Request Start: 09-26-2024 End: 09-26-2024 Dr. Tonja Givens DO -Emergency Department Work Phone: Start: 09-26-2024 End: 09-26-2024 Emergency department patient visit Dr. Tonja Givens DO -Emergency Department Work Phone: Start: 09-24-2024 End: 09-26-2024 Telephone encounter Vaughn Decker MD Work Phone: Endocrinology Comment on above: Formulary Changes Start: 09-10-2024 End: 09-10-2024 ambulatory ROYER FERGUSON Facility:[facility] Start: 09-10-2024 End: 09-10-2024 Patient encounter procedure Royer Ferguson PA-C Work Phone: [facility] Comment on above: Bilateral primary os teoarthritis of knee (Primary Dx) Start: 09-05-2024 End: 09-05-[address] Cayla Jolley MD -Outpatient Breast Imaging Work Phone: Start: 09-05-2024 End: 09-05-2024 Dr. Cayla Jolley MD -Outpatient Breast Imaging Work Phone: Start: 09-05-2024 End: 09-05-2024 ambulatory Leonora Davalos RN CARDIOVASCULAR ICU Facility:[facility] Start: 09-03-2024 End: 09-03-2024 ambulatory LEONORA DAVALOS Facility:[facility] Start: 09-03-2024 End: 09-03-2024 Patient encounter procedure Royer Ferguson PA-C Work Phone: [facility] Comment on above: Bilateral primary os teoarthritis of knee (Primary Dx) Start: 09-02-2024 Encounter for gyneco logical examination (general) (routine) with abnormal findings Cayla Jolley [facility] Start: 09-02-2024 End: 09-02-2024 Patient encounter procedure Marissa Camp NP-C -[facility] Work Phone: Start: 09-02-2024 End: 09-02-2024 Marissa Camp NP-C -[facility] Work Phone: Start: 09-02-2024 End: 09-02-2024 ambulatory Leonora Davalos RN CARDIOVASCULAR ICU Facility:[facility] Start: 09-02-2024 End: 09-02-[address] Cayla Jolley MD -[facility] Work Phone: Start: 09-02-2024 End: 09-02-[address] Cayla Jolley MD [facility] Start: 09-02-2024 End: 09-02-2024 Dr. Cayla Jolley MD [facility] Work Phone: Start: 09-02-2024 End: 09-02-2024 ambulatory Leonora Davalos RN CARDIOVASCULAR ICU Facility:[facility] Start: 09-02-2024 End: 09-02-2024 ambulatory Leonora Davalos RN CARDIOVASCULAR ICU Facility:[facility] Start: 08-27-2024 End: 08-27-2024 ambulatory LEONORA DAVALOS Facility:[facility] Start: 08-27-2024 End: 08-27-2024 Patient encounter procedure Royer Ferguson PA-C Work Phone: [facility] Comment on above: Primary osteoarthrit is of left knee (Primary Dx) Start: 08-07-2024 End: 08-07-2024 Patient encounter procedure Royer Ferguson PA-C Work Phone: [facility] Comment on above: Primary osteoarthrit is of left knee (Primary Dx); BMI 50.0-59.9, adult (HCC); Elevated hemoglobin A1c Start: 08-07-2024 End: 08-07-2024 ambulatory LEONORA L DAVALOS Facility:[facility] Start: 08-07-2024 End: 08-07-2024 Subsequent hospital visit by physician Xr Pending Sale To [facility] 1 Xray [facility] Comment on above: Pain [R52] Start: 05-22-2024 End: 05-22-2024 Refill Vaughn Decker MD Work Phone: Endocrinology Comment on above: Refill Request Type 2 diabetes ramakrishna itus with hyperglycemia, without long-term current use of insulin (HCC) (Primary Dx) 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, without long-term current use of insulin (HCC) (Primary Dx) Start: 05-17-2024 End: 05-19-2024 Refill Vaughn Decker MD Work Phone: Diabetic Education [facility] Comment on above: Refill Request Start: 05-08-2024 End: 05-08-2024 Nursing evaluation of patient and report Kevin Garcia RN Work Phone: Endocrinology Comment on above: 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, without long-term current use of insulin (HCC) (Primary Dx) Start: 04-17-2024 End: 04-17-2024 Patient encounter procedure Vaughn Decker MD Work Phone: Endocrinology Comment on above: Type 2 diabetes ramakrishna itus with hyperglycemia, without long-term current use of insulin (HCC) (Primary Dx); Acquired hypothyroidism Start: 04-17-2024 Refill Vaughn Decker MD Work Phone: Endocrinology Comment on above: Refill Request Start: 04-11-2024 End: 04-30-2024 Telephone encounter Tyler Lemon MD Work Phone: General Surgery Comment on above: Accounts Payable Manager - O ther Start: 04-10-2024 Telephone encounter Rosy sheridan MD Work Phone: Gastroenterology Comment on above: Electronic Communica tion (With Dr. Lemon) Start: 04-10-2024 End: 04-10-2024 Patient encounter procedure Rosy Esteban MD Work Phone: Gastroenterology Comment on above: Fatty metamorphosis of liver (Primary Dx); Liver fibrosis; Gastroesophageal reflux disease without esophagitis; Hx of cholecystectomy; BMI 50.0-59.9, adult (HCC) Start: 03-22-2024 End: 03-22-2024 Subsequent hospital visit by physician [facility] Comment on above: Metabolic dysfunctio n-associated steatohepatitis (MASH) [K75.81] Start: 03-21-2024 Telephone encounter Uriah campo COMMUTER [employer].SALES AND MARKETING ASSISTANT Work Phone: Gastroenterology Comment on above: Results Start: 03-19-2024 End: 03-19-2024 Subsequent hospital visit by physician [facility] Work Phone: [facility] Comment on above: Left lower quadrant abdominal pain [R10.32] Left lower quadrant pain [R10.32] Start: 03-18-2024 Telephone encounter Rosy sheridan MD Work Phone: Gastroenterology Comment on above: Follow Up Tests Resu lts (Fibroscan---->needs f/u OV in 1 month) Start: 03-11-2024 End: 03-11-2024 Orders Only Uriah Mueller APRN.[facility] Work Phone: Gastroenterology Comment on above: Metabolic dysfunctio n-associated steatohepatitis (MASH) (Primary Dx) Metabolic dysfunctio n-associated steatohepatitis (MASH) (Primary Dx); Diarrhea, unspecified type; Left lower quadrant abdominal pain Start: 03-04-2024 End: 05-20-2024 Telephone encounter Rosy Esteban MD Work Phone: Gastroenterology Comment on above: Appointment (Needs O V with RN CARDIOVASCULAR ICU or PA) Start: 12-27-2023 ambulatory Eliceo orona APRN.CNP Work Phone: Endocrinology Comment on above: New meds Start: 12-15-2023 Telephone encounter Eliceo maldonado APRN.[facility] Work Phone: Endocrinology Comment on above: PA--Ozempic 0.25mg/0 .5mg (2mg/3ml) Start: 12-15-2023 End: 12-15-2023 Patient encounter procedure Eliceo Ambriz APRN.[employer] AND MARKETING ASSISTANT Work Phone: Endocrinology Comment on above: 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, without long-term current use of insulin (HCC) (Primary Dx); Postoperative hypothyroidism; Class 3 severe obesity with serious comorbidity and body mass index (BMI) of 50.0 to 59.9 in adult, unspecified obesity type (HCC); Pure hypercholesterolemia; Essential hypertension; Coronary artery disease involving [place] coronary artery of [place] heart without angina pectoris Start: 12-13-2023 Telephone encounter Vaughn Angela i, MD Work Phone: Endocrinology Comment on above: Patient Update Start: 11-15-2023 End: 11-15-2023 Subsequent hospital visit by physician Mammo/Bone Density [facility] Comment on above: Other specified diso rders of bone density and structure, multiple sites [M85.89] Start: 11-07-2023 Telephone encounter Vaughn Angela i, MD Work Phone: Endocrinology Comment on above: Patient Question Start: 08-28-2023 End: 08-28-2023 ambulatory RN CARDIOVASCULAR ICU-C Leonora Davalos RN CARDIOVASCULAR ICU Work Phone: [facility] Work Phone: Start: 08-28-2023 End: 08-28-2023 Patient encounter procedure RN CARDIOVASCULAR ICU-Yeyo Davalos RN CARDIOVASCULAR ICU Work Phone: [facility]-Laboratory, Specimen Work Phone: Start: 08-28-2023 End: 08-28-2023 Patient encounter procedure RN CARDIOVASCULAR ICU-C Leonora Davalos RN CARDIOVASCULAR ICU Work Phone: [facility] Work Phone: Start: 08-10-2023 End: 08-10-2023 ambulatory RN CARDIOVASCULAR ICU-Yeyo Davalos RN CARDIOVASCULAR ICU Work Phone: [facility] Work Phone: Start: 08-10-2023 End: 08-10-2023 Patient encounter procedure RN CARDIOVASCULAR ICU-C Leonora Davalos RN CARDIOVASCULAR ICU Work Phone: [facility]-Outpatient Breast Imaging Work Phone: Start: 07-31-2023 Refill Vaughn Decker MD Work Phone: Endocrinology Comment on above: Refill Request Start: 07-07-2023 End: 07-07-2023 Patient encounter procedure RN CARDIOVASCULAR ICU-C Leonora Davalos RN CARDIOVASCULAR ICU Work Phone: [facility] Work Phone: Start: 06-28-2023 End: 06-28-2023 Patient encounter procedure RN CARDIOVASCULAR ICU-C Leonora Davalos RN CARDIOVASCULAR ICU Work Phone: [facility]-Pulmonary Medicine [facility] Work Phone: Start: 06-15-2023 Refill Vaughn Decker MD Work Phone: Endocrinology Comment on above: Refill Request Start: 06-09-2023 Refill Vaughn Decker MD Work Phone: Endocrinology Start: 05-25-2023 Non-patient / Non-visit RN CARDIOVASCULAR ICU-C Gretta Davalos RN CARDIOVASCULAR ICU Work Phone: [facility] Work Phone: Start: 05-22-2023 Non-patient / Non-visit RN CARDIOVASCULAR ICU-C Gretta Davalos RN CARDIOVASCULAR ICU Work Phone: [facility] Start: 05-22-2023 End: 05-22-2023 Patient encounter procedure RN CARDIOVASCULAR ICU-Yeyo Davalos RN CARDIOVASCULAR ICU [facility] Work Phone: Start: 05-03-2023 End: 05-03-2023 Patient encounter procedure Vaughn Decker MD Work Phone: Endocrinology Comment on above: Poorly controlled ty pe 2 diabetes mellitus (HCC) (Primary Dx); Acquired hypothyroidism Start: 05-01-2023 Refill Rosy Esteban MD Work Phone: Gastroenterology Comment on above: Refill Request (Omep razole) Start: 04-18-2023 Non-patient / Non-visit RN CARDIOVASCULAR ICU-C Gretta Davalos RN CARDIOVASCULAR ICU Work Phone: [facility] Start: 04-17-2023 End: 04-17-2023 ambulatory RN CARDIOVASCULAR ICU-Yeyo Davalos RN CARDIOVASCULAR ICU Work Phone: [facility] Work Phone: Start: 04-17-2023 End: 04-17-2023 Patient encounter procedure RN CARDIOVASCULAR ICU-eYyo Davalos RN CARDIOVASCULAR ICU [facility] Work Phone: Start: 04-17-2023 End: 04-17-2023 Patient encounter procedure RN CARDIOVASCULAR ICU-Yeyo Davalos RN CARDIOVASCULAR ICU Work Phone: [facility] Work Phone: Start: 03-27-2023 End: 03-27-2023 Patient encounter procedure RN CARDIOVASCULAR ICU-Yeyo Davalos RN CARDIOVASCULAR ICU [facility] Work Phone: Start: 01-12-2023 Refill Rosy Esteban MD Work Phone: Gastroenterology Comment on above: Refill Request (Omep razole) Start: 12-26-2022 End: 12-26-2022 Patient encounter procedure RN CARDIOVASCULAR ICU-Yeyo Davalos RN CARDIOVASCULAR ICU [facility] Work Phone: Start: 2022 End: [address] Shiraz Stephens Work Phone: [facility] Work Phone: Start: 2022 End: [address] Shiraz Stephens Work Phone: [facility]-Laboratory Start: 2022 End: [address] Shiraz Stephens Work Phone: [facility] Start: 11-01-2022 End: 11-01-2022 Subsequent hospital visit by physician Rosy Esteban MD Work Phone: Ambulatory Surgery Comment on above: Diverticulitis [K57. 92] Start: 09-16-2022 End: 09-16-[address] Shiraz Stephens Work Phone: [facility] Work Phone: Start: 09-16-2022 End: 09-16-[address] Shiraz Stephens Work Phone: [facility]-Laboratory Start: 09-16-2022 End: 09-16-[address] Shiraz Stephens Work Phone: [facility] Gastroenterology Start: 09-13-2022 Telephone encounter Vaughn Angela i, MD Work Phone: Endocrinology Comment on above: Patient Update Start: 09-06-2022 End: 09-06-2022 Patient encounter procedure Vaughn Decker MD Work Phone: Endocrinology Comment on above: Acquired hypothyroid ism (Primary Dx); Controlled type 2 diabetes mellitus without complication, without long-term current use of insulin (HCC) Start: 08-29-2022 Telephone encounter Rosy sheridan MD Work Phone: Gastroenterology Comment on above: Diverticulitis (Need s colonoscopy in 3 months) Start: 08-27-2022 End: 08-28-2022 Emergency department patient visit Dr. Shiraz Stephens Work Phone: [facility]-Emergency Department Start: 08-27-2022 ambulatory Vaughn Decker MD Work Phone: Endocrinology Comment on above: Update Start: 08-27-2022 E-mail encounter fro m caregiver Vaughn Decekr MD Work Phone: [facility] Start: 08-26-2022 Telephone encounter Vaughn Angela i, MD Work Phone: Endocrinology Comment on above: Patient Update Start: 08-18-2022 End: 08-18-[address] Shiraz Stephens Work Phone: [facility] Work Phone: Start: 08-18-2022 End: 08-18-[address] Shiraz Stephens Work Phone: [facility] Start: 08-08-2022 End: 08-08-[address] Shiraz Stephens Work Phone: [facility] Work Phone: Start: 08-08-2022 End: 08-08-[address] Shiraz Stephens Work Phone: [facility]-Outpatient Breast Imaging Start: 07-26-2022 End: 07-26-[address] Shiraz Stephens Work Phone: [facility]-Laboratory, Specimen Start: 07-26-2022 End: 07-26-[address] Shiraz Stephens Work Phone: [facility] Start: 07-12-2022 ambulatory Roys Esteban MD Work Phone: [facility] Start: 07-12-2022 Patient encounter procedure Montserrat Esteban MD Work Phone: Gastroenterology Comment on above: Coming up appointmen t Start: 06-22-2022 End: 06-22-[address] Shiraz Stephens Work Phone: [facility]-Pulmonary Medicine [facility] Start: 06-21-2022 ambulatory [facility] Provider Endocrinol ogy Comment on above: Low Blood Glucose Start: 06-21-2022 E-mail encounter nav m caregiver [facility] Provider [facility] Start: 06-09-2022 Telephone encounter Rosy sheridan MD Work Phone: Gastroenterology Comment on above: Follow Up Tests Resu lts (Labs, stools and US---->needs labs in 3 months, US in 6 months) Start: 06-02-2022 End: 06-02-[address] Shiraz Stephens Work Phone: [facility] Start: 05-30-2022 End: 05-30-2022 Get Medical Advice Vaughn Decker MD Work Phone: Endocrinology Comment on above: Thyroid tests and re fill medications Fatty metamorphosis of liver [K76.0] Start: 05-27-2022 Orders Only Vaughn Decker MD Work Phone: Endocrinology Comment on above: Medication Problem Start: 05-26-2022 Telephone encounter Vaughn Angela i, MD Work Phone: Endocrinology Comment on above: PA--VICTOZA 2021 Start: 03-11-2022 End: 03-11-2022 Subsequent hospital visit by physician Corrie Grant Work Phone: Cardiology Lab Comment on above: DEE (dyspnea on exer tion) [R06.09] Start: 02-24-2022 Telephone encounter Aly Mosley DO Work Phone: Cardiology Comment on above: Appointment ([employer] Patient Assistance) Start: 02-21-2022 Telephone encounter Tanya Ruano APRN.SALES AND MARKETING ASSISTANT Work Phone: Cardiology Comment on above: Patient Update Start: 02-14-2022 End: 02-14-2022 Patient encounter procedure Tanya Ruano APRN.[employer]ALES AND MARKETING ASSISTANT Work Phone: Cardiology Comment on above: DEE (dyspnea on exer tion) (Primary Dx); Essential hypertension; Paroxysmal atrial fibrillation (HCC); Coronary artery disease involving [place] coronary artery of [place] heart without angina pectoris; Chronic diastolic CHF (congestive heart failure) (HCC); Pure hypercholesterolemia Start: 01-25-2022 End: 01-25-[address] Shiraz Stephens Work Phone: [facility] Internal Medicine Start: 01-12-2022 End: 01-12-2022 Patient encounter procedure Rosy Esteban MD Work Phone: Gastroenterology Comment on above: Fatty metamorphosis of liver (Primary Dx); Elevated liver enzymes; Liver fibrosis; Gastroesophageal reflux disease without esophagitis; Diarrhea, unspecified type; Hx of cholecystectomy Start: 01-05-2022 Telephone encounter Rosy sheridan MD Work Phone: Gastroenterology Comment on above: Follow Up Tests Resu lts (labs---->needs additional labs) Start: 11-29-2021 End: 11-29-[address] Shiraz Stephens Work Phone: [facility]-Laboratory, [facility] Start: 11-04-2021 End: 11-04-[address] Shiraz Stephens Work Phone: [facility] Start: 10-26-2021 End: 10-26-[address] Shiraz Stephens Work Phone: [facility] Endocrinology Start: 09-16-2021 End: 10-11-[address] Shiraz Stephens Work Phone: [facility]-Diabetic Clinic Start: 09-02-[address] Mounika Stephens Work Phone: [facility]-Laboratory Start: 08-24-2021 End: 08-24-[address] Shiraz Stephens Work Phone: [facility] Procedures Date Procedure Procedure Detail Performing Clinician Start: 06-30-2025 Hepatitis C antibody measurement Leonora pires NP-C Work Phone: Comment on above: Reactive: Presumptive evidence of antibo dies to HCV. Follow CDC recommendations for supplemental testing.Non-Reactive: Antibodies to HCV were not detected; does not exclude the possibility of exposure to HCVReactive Results are presumptive evidence of antibodies to HCV. Follow CDC recommendations for supplemental testing.Order confirmation testing: HCV Quant by PCR testing - HCVPCR #[id number] Non Reactive: < 0.8 Equivocal: >/= 0.8 to < 1.0 Reactive: >/= 1.0The CDC requires that a reactive/equivocal HCV antibody result be sent out for confirmation. HCV Quant by PCR testing. Start: 05-21-2025 Gluc bld gluc mntr dev cleared fda spec home use [facility] Provider Start: 05-21-2025 Colonoscopy flx dx w/collj spec when pfrmd Marlon Cesar MD Work Phone: Start: 05-21-2025 Gluc bld gluc mntr dev cleared fda spec home use [facility] Provider Start: 05-21-2025 Colonoscopy Marlon Cesar MD Work Phone: Start: 08-13-2025 Antibody screen LEONORA DAVALOS Comment on above: Order Comment: Specimen Type: BLOOD SPEC IMEN Ordering Facility: [facility] Address: [facility] [place] [address] Performed By: #### 1 [id number], [id number] #### [facility] CLIA [id number] [address] [place] [address] [facility] Start: 02-05-2025 Ultrasound elastography of liver Leonora Eliseo pranay RN CARDIOVASCULAR ICU-C Work Phone: Start: 01-24-2025 CT of chest without contrast Leonora farnsworthshital RN CARDIOVASCULAR ICU-C Work Phone: Start: 01-23-2025 Blood count smear mcrscp w/mnl difrntl wbc count Leonora Davalos RN CARDIOVASCULAR ICU-C Work Phone: Start: 01-23-2025 Calculation of international normalized ratio Leonora Davalos RN CARDIOVASCULAR ICU-C Work Phone: Start: 01-23-2025 Chocolate RAST Leonora Davalos RN CARDIOVASCULAR ICU-C Work Phone: Start: 01-23-2025 Food RAST Leonoracarlos Davalos RN CARDIOVASCULAR ICU-C Work Phone: Start: 01-23-2025 Mean corpuscular hemoglobin concentration determination Leonora Davalos RN CARDIOVASCULAR ICU-C Work Phone: Start: 01-23-2025 Nucleated red blood cell count procedure Leonora Davalos RN CARDIOVASCULAR ICU-C Work Phone: Start: 01-23-2025 Platelet mean volume determination Leonora Davalos RN CARDIOVASCULAR ICU-C Work Phone: Start: 01-23-2025 Shrimp RAST Leonora Starrson RN CARDIOVASCULAR ICU-C Work Phone: Start: 12-17-2024 Cardiovascular stress test using pharmacologic stress agent Leonora Davalos RN CARDIOVASCULAR ICU-C Work Phone: Start: 12-07-2024 X-ray of chest, PA and lateral views Leonora Davalos RN CARDIOVASCULAR ICU-C Work Phone: Start: 11-13-2024 Blood count smear mcrscp w/mnl difrntl wbc count Leonora Davalos RN CARDIOVASCULAR ICU-C Work Phone: Start: 11-13-2024 Mean corpuscular hemoglobin concentration determination Leonora Davalos RN CARDIOVASCULAR ICU-C Work Phone: Start: 11-13-2024 Nucleated red blood cell count procedure Leonora Davalos RN CARDIOVASCULAR ICU-C Work Phone: Start: 11-13-2024 Platelet mean volume determination Leonora Davalos RN CARDIOVASCULAR ICU-C Work Phone: Start: 09-26-2024 Urine microscopy: red cells Leonora dodson RN CARDIOVASCULAR ICU-C Work Phone: Start: 09-26-2024 Urnls dip stick/tablet reagent auto microscopy Leonora Davalos RN CARDIOVASCULAR ICU-C Work Phone: Start: 09-26-2024 Albumin/Globulin ratio Leonora Davalos RN CARDIOVASCULAR ICU-C Work Phone: Start: 09-26-2024 Anion gap measurement Leonora Davalos RN CARDIOVASCULAR ICU-C Work Phone: Start: 09-26-2024 Blood count smear mcrscp w/mnl difrntl wbc count Leonora Davalos RN CARDIOVASCULAR ICU-C Work Phone: Start: 09-26-2024 BUN/Creatinine ratio Leonora Davalos RN CARDIOVASCULAR ICU-C Work Phone: Start: 09-26-2024 Estimated creatinine clearance Leonora felderon RN CARDIOVASCULAR ICU-C Work Phone: Start: 09-26-2024 Mean corpuscular hemoglobin concentration determination Leonora Davalos RN CARDIOVASCULAR ICU-C Work Phone: Start: 09-26-2024 Measurement of renal function Leonora lyons RN CARDIOVASCULAR ICU-C Work Phone: Start: 09-26-2024 Nucleated red blood cell count procedure Leonora Davalos RN CARDIOVASCULAR ICU-C Work Phone: Start: 09-26-2024 Platelet mean volume determination Leonora Davalos RN CARDIOVASCULAR ICU-C Work Phone: Start: 09-26-2024 CT of abdomen and pelvis without contrast Leonora Davalos RN CARDIOVASCULAR ICU-C Work Phone: Start: 09-26-2024 Urine culture Leonora Davalos RN CARDIOVASCULAR ICU-C Work Phone: Start: 09-10-2024 Arthrocentesis aspir&/inj major jt/bursa w/o us Royer Ferguson PA-C Work Phone: Start: 09-05-2024 Bilateral mammography Leonora Davalos RN CARDIOVASCULAR ICU-C Work Phone: Start: 09-03-2024 Arthrocentesis aspir&/inj major jt/bursa w/o us Royer Ferguson PA-C Work Phone: Start: 09-02-2024 X-ray of chest, PA and lateral views Leonora Davalos RN CARDIOVASCULAR ICU-C Work Phone: Start: 08-27-2024 Arthrocentesis aspir&/inj major jt/bursa w/o us Royer Ferguson PA-C Work Phone: Start: 08-07-2024 Radiologic exam knee complete 4/more views Royer JAY-C Work Phone: Start: 04-17-2024 Gluc bld gluc mntr dev cleared fda spec home use [facility] Provider Start: 04-17-2024 Hemoglobin A1c/Hemoglobin.total in Blood Vaughn Decker MD Work Phone: Start: 03-22-2024 End: 03-22-2024 Us abdominal real time w/image limited Uriah Mueller APRN.[employer] MARKETING ASSISTANT Work Phone: Start: 03-19-2024 Ct abdomen & pelvis w/contrast material Uriah Mueller APRN.[employer] AND MARKETING ASSISTANT Work Phone: Start: 03-11-2024 End: 03-11-2024 Liver elastography w/o imag w/i&r Uriah Mueller APRN.[employer] MARKETING ASSISTANT Work Phone: Start: 08-10-2023 Screening mammography RN CARDIOVASCULAR ICU-Yeyo Davalos RN CARDIOVASCULAR ICU Work Phone: Start: 05-22-2023 Cardiovascular stress test using pharmacologic stress agent RN CARDIOVASCULAR ICU-Yeyo Davalos RN CARDIOVASCULAR ICU Work Phone: Start: 05-03-2023 Hemoglobin A1c/Hemoglobin.total in Blood Vaughn Decker MD Work Phone: Start: 11-01-2022 Esophagogastroduodenoscopy transoral diagnostic Rosy Esteban MD Work Phone: Start: 11-01-2022 Level iv surg pathology gross&microscopic exam Rosy Esteban MD Work Phone: Start: 11-01-2022 Colonoscopy flx dx w/collj spec when pfrmgretta Esteban MD Work Phone: Start: 11-01-2022 Colonoscopy Rosy Esteban MD Work Phone: Start: 08-27-2022 Computed tomography of abdomen and pelvis with intravenous contrast Dr. Shiraz Stephens Work Phone: Start: 08-18-[address] Shiraz Stephens Work Phone: Start: 08-08-[address] Shiraz Stephens Work Phone: Start: 03-11-2022 Echo tthrc r-t 2d w/wom-mode compl spec&colr d Tanyacrista Ruano [employer]UTER [employer] Work Phone: Start: 04-28-2020 Colonoscopy Rosy Esteban MD Work Phone: Start: 04-14-2020 Mammography Rosy Esteban MD Work Phone: Start: 02-02-2019 Follow-up visit Start: 06-29-2017 End: 06-29-2017 MAGALI Ruth NP Work Phone: Start: 06-29-2017 End: 06-29-2017 Follow up Appt 3 weeks Mehrdad Ruth NP Work Phone: Start: 06-29-2017 End: 06-29-2017 Natriuretic peptide B [Mass/volume] in Blood Mehradd Hill Faraz RN CARDIOVASCULAR ICU Work Phone: Start: 06-14-2017 End: 06-15-2017 Ecg routine ecg w/least 12 lds w/i&r Sunita Montgomery PA-C Work Phone: Start: 06-14-2017 End: 06-15-2017 Referral to mold mechanic Sunita Montgomery PA-C Work Phone: Start: 06-12-2017 End: 06-19-2017 *MISC - Miscellaneous Lab Test #1 Bubba Camp SALES AND MARKETING ASSISTANT Work Phone: Start: 06-12-2017 End: 06-19-2017 DMB Marissa Camp SALES AND MARKETING ASSISTANT Work Phone: Start: 06-12-2017 End: 06-19-2017 Follow Up Appt 3 months Marissa Camp SALES AND MARKETING ASSISTANT Work Phone: Start: 06-12-2017 End: 06-19-2017 Pulmonary Function Test - complete Marissa Camp SALES AND MARKETING ASSISTANT Work Phone: Start: 06-12-2017 End: 06-19-2017 Pulmonary stress test/simple Marissa Camp SALES AND MARKETING ASSISTANT Work Phone: Enteric Bacteriology Dr. Isaias Stephens Work Phone: History of cholecystectomy Hx of cholecys tectomy Rosy Esteban MD Work Phone: History of cholecystectomy Hx of cholecys tectomy Rosy Esteban MD Work Phone: Lactoferrin measurement Dr. Shiraz Stephens Work Phone: Plan of Treatment Date Care Activity Detail Author Start: 05-21-2026 Screening for malignant neoplasm of colon [facility] Start: 11-12-2025 Hepatitis B screening Urine Albumin:Creatinine Ratio [facility] Start: 11-12-2025 Hepatitis B surface antibody level LDL Cholesterol [facility] Start: 08-14-2025 Hemoglobin A1c measurement HbA1C [facility] Start: 06-30-2025 Registered Referred Registered Referred -ED Referred Work Phone: Start: 06-30-2025 [facility] Start: 06-30-2025 End: 06-30-2025 Patient encounter procedure Departed Clinical -Laboratory Work Phone: Start: 06-27-2025 End: 06-27-2025 Evaluation of diagnostic study results [facility] Start: 05-22-2025 End: 05-22-2025 Admission to same day surgery center 05/22/2025 12:05 PM EDT - 05/22/2025 4:45 PM EDT Surgery [facility] Operating Room [id number] [place] [address] [place] [address] [place] [address] LAPAROSCOPIC HAND ASSISTED COLECTOMY [facility] Comment on above: LAPAROSCOPIC HAND ASSISTED COLECTOMY Start: 05-22-2025 End: 05-22-2025 Laps colectomy tot w/o prctect w/ileost/ileopxts LAPAROSCOPIC HAND ASSISTED COLECTOMY Diverticulitis 05/22/2025 12:05 PM EDT [facility] Start: 05-22-2025 Subsequent hospital visit by physician 05/22/2025 12:05 PM EDT Hospital Encounter [facility] Operating Room [address] [place] [address] [place] [address] [place] [address] Diverticulitis [K57.92] [facility] Comment on above: Diverticulitis [K57.92] Start: 05-21-2025 End: 05-21-2025 Patient encounter procedure [facility] Endoscopy - ENDO Comment on above: colonoscopy Start: 05-15-2025 Hemoglobin A1c measurement HbA1C [facility] Start: 05-13-2025 End: 05-13-2025 Anesthesia consultation 05/13/2025 9:40 AM EDT PAT Pre Anesthesia [address] [place] [address] 3, Pacc Looney [address] [place] [address] COLONSCOPY 05/21 PACC ON 04/07 Pre Anesthesia Comment on above: COLONSCOPY 05/21 PACC ON 04/07 Start: 05-12-2025 Influenza vaccination [facility] Start: 05-01-2025 End: 05-01-2025 Admission to same day surgery center 05/01/2025 7:30 AM EDT - 05/01/2025 12:05 PM EDT Surgery [facility] Operating [facility] [address] [place] [address] Marlon Cesar [place] [id number] [place] [address] LAPAROSCOPIC HAND ASSISTED COLECTOMY [facility] Operating [facility] Comment on above: LAPAROSCOPIC HAND ASSISTED COLECTOMY Start: 05-01-2025 End: 05-01-2025 Laps colectomy tot w/o prctect w/ileost/ileopxts LAPAROSCOPIC HAND ASSISTED COLECTOMY Diverticulitis 05/01/2025 7:30 AM EDT [facility] Start: 05-01-2025 Subsequent hospital visit by physician 05/01/2025 7:30 AM EDT Hospital Encounter [facility] Operating Room [address] [place] [address] Marlon Cesar MD [address] [place] [address] Diverticulitis [K57.92] [facility] Comment on above: Diverticulitis [K57.92] Start: 04-30-2025 End: 04-30-2025 Patient encounter procedure 04/30/2025 12:30 PM EDT Appointment [facility] Endoscopy - ENDO [id number] [place] [address] Marlon Cesar MD [address] [place] [address] colonoscopy [facility] Endoscopy - ENDO Comment on above: colonoscopy Start: 04-25-2025 End: 04-25-2025 Patient encounter procedure 04/25/2025 9:30 AM EDT Office Visit Gastroenterology [address] [address] Yao Barroso MD [place] [id number] Recent hospitalization, acute diverticulitis Gastroenterology Comment on above: Recent hospitalization, acute diverticul itis Start: 04-23-2025 End: 04-23-2025 Patient encounter procedure [facility] Comment on above: Diverticulitis [K57.92] Start: 04-23-2025 End: 04-23-2025 Anesthesia consultation 04/23/2025 9:40 AM EDT PAT Pre Anesthesia [address] [place], [place] [id number] 3, Pacc Looney [address] [place] [address] pre op Pre Anesthesia Comment on above: pre op Start: 04-21-2025 End: 07-21-2025 CBC W Auto Differential panel - Blood COMPLETE BLOOD COUNT AND DIFFERENTIAL Lab Routine Diverticulitis Expected: 04/21/2025, Expires: 07/21/2025 [facility] Work Phone: Comment on above: Expected: 04/21/2025, Expires: Start: 04-21-2025 End: 07-21-2025 Comprehensive metabolic 2000 panel - Serum or Plasma COMPREHENSIVE METABOLIC PANEL Lab Routine Diverticulitis Expected: 04/21/2025, Expires: 07/21/2025 [facility] Comment on above: Expected: 04/21/2025, Expires: Start: 04-21-2025 End: 07-21-2025 TYPE + SCREEN TYPE + SCREEN Blood Bank Routine Diverticulitis Expected: 04/21/2025, Expires: 07/21/2025 [facility] Comment on above: Expected: 04/21/2025, Expires: Start: 04-17-2025 BP Controlled (<130/80) BP Controlled (<130/80) [facility] Start: 04-17-2025 Hemoglobin A1c measurement Diabetes: Hemoglobin A1C [facility] Start: 04-15-2025 End: 05-08-2026 CT Abdomen and Pelvis W contrast IV CT ABD/PEL W IVCON Radiology Routine Diverticulitis Nausea and vomiting, unspecified vomiting type Diarrhea, unspecified type Expected: 04/15/2025 (Approximate), Expires: 05/08/2026 [facility] Comment on above: Expected: 04/15/2025 (Approximate), Expi res: 05/08/2026 Start: 04-08-2025 End: 07-08-2025 Amylase [Enzymatic activity/volume] in Serum or Plasma AMYLASE Lab Routine Diverticulitis Nausea and vomiting, unspecified vomiting type Diarrhea, unspecified type Expected: 04/08/2025, Expires: 07/08/2025 [facility] Comment on above: Expected: 04/08/2025, Expires: Start: 04-08-2025 End: 07-08-2025 C reactive protein [Mass/volume] in Serum or Plasma C-REACTIVE PROTEIN Lab Routine Diverticulitis Nausea and vomiting, unspecified vomiting type Diarrhea, unspecified type Expected: 04/08/2025, Expires: 07/08/2025 [facility] Comment on above: Expected: 04/08/2025, Expires: Start: 04-08-2025 End: 07-08-2025 CBC W Auto Differential panel - Blood COMPLETE BLOOD COUNT AND DIFFERENTIAL Lab Routine Diverticulitis Nausea and vomiting, unspecified vomiting type Diarrhea, unspecified type Expected: 04/08/2025, Expires: 07/08/2025 [facility] Work Phone: Comment on above: Expected: 04/08/2025, Expires: Start: 04-08-2025 End: 07-08-2025 Comprehensive metabolic 2000 panel - Serum or Plasma COMPREHENSIVE METABOLIC PANEL Lab Routine Diverticulitis Nausea and vomiting, unspecified vomiting type Diarrhea, unspecified type Expected: 04/08/2025, Expires: 07/08/2025 [facility] Comment on above: Expected: 04/08/2025, Expires: Start: 04-08-2025 End: 07-08-2025 Lipase [Enzymatic activity/volume] in Serum or Plasma LIPASE Lab Routine Diverticulitis Nausea and vomiting, unspecified vomiting type Diarrhea, unspecified type Expected: 04/08/2025, Expires: 07/08/2025 [facility] Comment on above: Expected: 04/08/2025, Expires: Start: 04-07-2025 End: 07-07-2025 Bacteria identified in Urine by Culture [facility] Work Phone: Comment on above: Expected: 04/07/2025, Expires: Start: 04-07-2025 End: 04-07-2025 Anesthesia consultation 04/07/2025 7:40 AM EDT PAT Pre Anesthesia [address] [place] [address] 1, Pacc Looney [address] [place] [address] DOS 04/30 REFUSED [facility] Pre Anesthesia Comment on above: DOS 04/30 REFUSED [facility]V Start: 03-28-2025 End: 03-28-2025 Patient encounter procedure 03/28/2025 10:15 AM EDT Office Visit [facility] [address] [place] [address] [place] [address] [place], [place] [id number] New Pt: Recurrent Diverticulitis, ref by Dr. Rosy Esteban [facility] Comment on above: New Pt: Recurrent Diverticulitis, ref by Dr. Rosy Esteban Start: 02-12-2025 End: 05-14-2025 Hemoglobin A1c in Blood HEMOGLOBIN A1C Lab Routine Type 2 diabetes mellitus with diabetic polyneuropathy, without long-term current use of insulin (HCC) Expected: 02/12/2025 (Approximate), Expires: 05/14/2025 [facility] Work Phone: Comment on above: Expected: 02/12/2025 (Approximate), Expi res: 05/14/2025 Start: 02-04-2025 End: 02-04-2025 Patient encounter procedure 02/04/2025 12:40 PM EDT Office Visit [facility] [address] [facility] [facility] [address] [place] [address] Arlyn Saldivar DO [address] [place] [address] [facility] Start: 01-24-2025 Elastase.pancreatic [Presence] in Stool [facility] Start: 01-23-2025 Blood ammonia measurement [facility] Start: 01-23-2025 C reactive protein [Mass/volume] in Serum or Plasma [facility] Start: 01-23-2025 CBC W Auto Differential panel - Blood [facility] Start: 01-23-2025 Comprehensive metabolic 2000 panel - Serum or Plasma [facility] Start: 01-23-2025 Prothrombin time [facility] Start: 01-23-2025 [facility] Start: 01-17-2025 End: 01-17-2025 Follow-up encounter 01/17/2025 7:30 AM EDT [facility]ocr[facility]ology [address] [address] Eliceo Ambriz, COMMUTER PILOT.SALES AND MARKETING ASSISTANT [address] [id number] Diabetes follow up Endocrinology Comment on above: Diabetes follow up Start: 01-10-2025 Patient referral [facility] Work Phone: Start: 12-14-2024 BP Controlled (<130/80) BP Controlled (<130/80) [facility] Start: 12-03-2024 Measurement of respiratory function [facility] Start: 11-28-2024 Walking distance 6 minutes [facility] Start: 11-27-2024 BP Controlled (<130/80) BP Controlled (<130/80) [facility] Start: 11-11-2024 End: 11-11-2024 ambulatory 11/11/2024 2:15 PM EST [facility] [address] [id number] Eliceo Ambriz, SHARLA.SALES AND MARKETING ASSISTANT [address] [id number] diabetes Endocrinology Comment on above: diabetes Start: 11-09-2024 End: 02-08-2025 Comprehensive metabolic 2000 panel - Serum or Plasma COMPREHENSIVE METABOLIC PANEL Lab Routine Type 2 diabetes mellitus with diabetic polyneuropathy, without long-term current use of insulin (HCC) Expected: 11/09/2024 (Approximate), Expires: 02/08/2025 [facility] Work Phone: Comment on above: Expected: 11/09/2024 (Approximate), Expi res: 02/08/2025 Start: 11-09-2024 End: 02-08-2025 Hemoglobin A1c in Blood HEMOGLOBIN A1C Lab Routine Type 2 diabetes mellitus with diabetic polyneuropathy, without long-term current use of insulin (HCC) Expected: 11/09/2024 (Approximate), Expires: 02/08/2025 [facility] Comment on above: Expected: 11/09/2024 (Approximate), Expi res: 02/08/2025 Start: 11-09-2024 End: 02-08-2025 Lipid 1996 panel - Serum or Plasma LIPID PANEL BASIC Lab Routine Type 2 diabetes mellitus with diabetic polyneuropathy, without long-term current use of insulin (HCC) Expected: 11/09/2024 (Approximate), Expires: 02/08/2025 [facility] Comment on above: Expected: 11/09/2024 (Approximate), Expi res: 02/08/2025 Start: 11-09-2024 End: 02-08-2025 Microalbumin/Creatinine [Mass Ratio] in Urine ALBUMIN/CREATININE RATIO, URINE Lab Routine Type 2 diabetes mellitus with diabetic polyneuropathy, without long-term current use of insulin (HCC) Expected: 11/09/2024 (Approximate), Expires: 02/08/2025 [facility] Comment on above: Expected: 11/09/2024 (Approximate), Expi res: 02/08/2025 Start: 11-09-2024 End: 02-08-2025 Thyrotropin [Units/volume] in Serum or Plasma THYROID STIMULATING HORMONE Lab Routine Postoperative hypothyroidism Expected: 11/09/2024 (Approximate), Expires: 02/08/2025 [facility] Comment on above: Expected: 11/09/2024 (Approximate), Expi res: 02/08/2025 Start: 11-09-2024 End: 02-08-2025 Thyroxine (T4) free [Mass/volume] in Serum or Plasma T4 FREE/FREE THYROXINE Lab Routine Postoperative hypothyroidism Expected: 11/09/2024 (Approximate), Expires: 02/08/2025 [facility] Comment on above: Expected: 11/09/2024 (Approximate), Expi res: 02/08/2025 Start: 11-08-2024 End: 11-08-2024 ambulatory 11/08/2024 7:30 AM EST [facility] [address] [id number] Eliceo Ambriz APRN.SALES AND MARKETING ASSISTANT [address] [phone] diabetes Endocrinology Comment on above: diabetes Start: 10-23-2024 End: 10-23-2024 Patient encounter procedure 10/23/2024 4:20 PM EST Office Visit Endocrinology [address] [phone] Vaughn Decker MD [address] [place], [place] [phone] f/u Endocrinology Comment on above: f/u Start: 10-18-2024 Hemoglobin A1c measurement HbA1C [facility] Start: 09-26-2024 [facility] Start: 09-11-2024 Advance Directive Discussion Advance Directive Discussion [facility] Start: 09-11-2024 Medicare Advantage Annual Wellness Visit Medicare Advantage Annual Wellness Visit [facility] Start: 09-10-2024 End: 09-10-2024 Patient encounter procedure 09/10/2024 9:00 AM EST Office Visit Orthopaedic Surgery [facility] [address] [place], [place] [phone] Royer Ferguson, KAILASH [address] [place] [address] Euflexa injections knees [facility] Comment on above: Euflexa injections knees Start: 09-03-2024 End: 09-03-2024 Patient encounter procedure 09/03/2024 8:00 AM EST Office Visit Orthopaedic Surgery [facility] [address] [place] [address] Royer Ferguson PA-C [address] [place] [address] Euflexa injections knees [facility]opa[facility] Comment on above: Euflexa injections knees Start: 05-22-2024 End: 05-22-2024 Nursing evaluation of patient and report 05/22/2024 9:00 AM EDT Nurse Visit Endocrinology [address] [place] [address] Kevin Garcia, JONI [address] [phone] 2 wk f/u Endocrinology Comment on above: 2 wk f/u Start: 05-17-2024 Hemoglobin A1c measurement HbA1C [facility] Start: 05-12-2024 COVID-19 Vaccine ( season) COVID-19 Vaccine ( season) [facility] Start: 05-12-2024 Influenza vaccination [facility] Start: 05-03-2024 Hepatitis B surface antibody level LDL Cholesterol [facility] Start: 05-02-2024 End: 05-02-2024 Nursing evaluation of patient and report 05/02/2024 1:00 PM EDT Nurse Visit Diabetic Education [facility] [address] [address] Kevin Garcia, JONI [address] [address] CGM placement Diabetic Education [facility] Comment on above: CGM placement Start: 04-17-2024 End: 04-17-2024 Patient encounter procedure 04/17/2024 4:40 PM EDT Office Visit Endocrinology [address] [phone] Vaughn Decker MD [address] [place] [address] 6 month follow up Endocrinology Comment on above: 6 month follow up Start: 04-17-2024 End: 07-17-2024 Thyrotropin [Units/volume] in Serum or Plasma THYROID STIMULATING HORMONE Lab Routine Acquired hypothyroidism Expected: 04/17/2024, Expires: 07/17/2024 [facility] Comment on above: Expected: 04/17/2024, Expires: Start: 04-17-2024 End: 07-17-2024 Thyroxine (T4) free [Mass/volume] in Serum or Plasma T4 FREE/FREE THYROXINE Lab Routine Acquired hypothyroidism Expected: 04/17/2024, Expires: 07/17/2024 [facility] Work Phone: Comment on above: Expected: 04/17/2024, Expires: Start: 04-10-2024 End: 04-10-2024 Patient encounter procedure 04/10/2024 8:40 AM EDT Office Visit Gastroenterology [address] [place] [address] [place] [address] [place] [address] F/U OV Gastroenterology Comment on above: F/U OV Start: 03-22-2024 End: 03-22-2024 Patient encounter procedure 03/22/2024 9:00 AM EDT Appointment [facility] [address] [place] [id number] Metabolic dysfunction-associated steatohepatitis (MASH) [K75.81] [facility] Comment on above: Metabolic dysfunction-associated steatoh epatitis (MASH) [K75.81] Start: 03-11-2024 End: 06-10-2024 [id number] [Mass/volume] in Serum or Plasma ALPHA FETOPROTEIN Lab Routine Metabolic dysfunction-associated steatohepatitis (MASH) Expected: 03/11/2024, Expires: 06/10/2024 [facility] Comment on above: Expected: 03/11/2024, Expires: Start: 03-11-2024 End: 06-10-2024 CBC W Auto Differential panel - Blood COMPLETE BLOOD COUNT AND DIFFERENTIAL Lab Routine Metabolic dysfunction-associated steatohepatitis (MASH) Expected: 03/11/2024, Expires: 06/10/2024 [facility] Comment on above: Expected: 03/11/2024, Expires: Start: 03-11-2024 End: 06-10-2024 Comprehensive metabolic 2000 panel - Serum or Plasma COMPREHENSIVE METABOLIC PANEL Lab Routine Metabolic dysfunction-associated steatohepatitis (MASH) Expected: 03/11/2024, Expires: 06/10/2024 [facility] Comment on above: Expected: 03/11/2024, Expires: Start: 03-11-2024 End: 06-10-2024 CREATININE BLD CREATININE BLD Lab Routine Metabolic dysfunction-associated steatohepatitis (MASH) Expected: 03/11/2024, Expires: 06/10/2024 [facility] Comment on above: Expected: 03/11/2024, Expires: Start: 03-11-2024 End: 06-10-2024 PT panel - Platelet poor plasma by Coagulation assay PROTHROMBIN TIME Lab Routine Metabolic dysfunction-associated steatohepatitis (MASH) Expected: 03/11/2024, Expires: 06/10/2024 [facility] Comment on above: Expected: 03/11/2024, Expires: Start: 11-09-2023 End: 02-08-2024 Hemoglobin A1c in Blood HGB A1C Lab Routine Poorly controlled type 2 diabetes mellitus (HCC) Expected: 11/09/2023, Expires: 02/08/2024 [facility] Work Phone: Comment on above: Expected: 11/09/2023, Expires: Start: 11-01-2023 Colonoscopy COLONOSCOPY [facility] Start: 11-01-2023 COLORECTAL CANCER SCREENING COLORECTAL CANCER SCREENING [facility] Start: 11-01-2023 Screening for malignant neoplasm of colon [facility] Start: 09-11-2023 Advance Directive Discussion Advance Directive Discussion [facility] Start: 09-11-2023 Behavioral Health Screening Behavioral Health Screening [facility] Start: 09-11-2023 Depression Assessment Depression Assessment [facility] Start: 09-06-2023 BP CONTROLLED (<130/80) BP CONTROLLED (<130/80) [facility] Start: 08-28-2023 Liquid based cervical cytology screening [facility] Start: 08-03-2023 Hemoglobin A1c measurement HbA1C [facility] Start: 08-03-2023 Hemoglobin A1c/Hemoglobin.total in Blood HBA1C [facility] Start: 05-25-2023 BP CONTROLLED (<130/80) BP CONTROLLED (<130/80) [facility] Start: 05-17-2023 Hepatitis B surface antibody level LDL CHOLESTEROL [facility] Start: 05-12-2023 Influenza vaccination [facility] Start: 05-03-2023 End: 07-03-2023 Thyroxine (T4) free [Mass/volume] in Serum or Plasma [facility] Work Phone: Comment on above: Expected: 05/03/2023, Expires: Start: 02-22-2023 Hepatitis B surface antibody level LDL CHOLESTEROL [facility] Start: 02-14-2023 BP CONTROLLED (<130/80) BP CONTROLLED (<130/80) [facility] Start: 12-07-2022 End: 07-09-2023 Us abdominal real time w/image limited US ABD RT UPPER QUADRANT Radiology Routine Fatty metamorphosis of liver Elevated liver enzymes Expected: 12/07/2022 (Approximate), Expires: 07/09/2023 [facility] Work Phone: Comment on above: Expected: 12/07/2022 (Approximate), Expi res: 07/09/2023 Start: 11-02-2022 BP CONTROLLED (<130/80) BP CONTROLLED (<130/80) [facility] Start: 09-11-2022 ADVANCE DIRECTIVE DISCUSSION ADVANCE DIRECTIVE DISCUSSION [facility] Start: 09-11-2022 DEPRESSION ASSESSMENT DEPRESSION ASSESSMENT [facility] Start: 09-08-2022 End: 11-08-2022 Hepatic function 2000 panel - Serum or Plasma HEPATIC FUNCTION PNL Lab Routine Fatty metamorphosis of liver Elevated liver enzymes Expected: 09/08/2022 (Approximate), Expires: 11/08/2022 [facility] Work Phone: Comment on above: Expected: 09/08/2022 (Approximate), Expi res: 11/08/2022 Start: 08-24-2022 Hemoglobin A1c/Hemoglobin.total in Blood HBA1C [facility] Start: 05-12-2022 Influenza vaccination [facility] Start: 02-14-2022 End: 04-16-2022 LIPID PANEL BASIC LIPID PANEL BASIC Lab Routine Coronary artery disease involving [place] coronary artery of [place] heart without angina pectoris Expected: 02/14/2022, Expires: 04/16/2022 [facility] Work Phone: Comment on above: Expected: 02/14/2022, Expires: 2 Start: 01-05-2022 End: 03-07-2022 Alpha 1 antitrypsin [Mass/volume] in Serum or Plasma [id number] Lab Routine Elevated liver enzymes Fatty metamorphosis of liver Expected: 01/05/2022, Expires: 03/07/2022 [facility] Work Phone: Comment on above: Expected: 01/05/2022, Expires: 2 Start: 01-05-2022 End: 03-07-2022 FERRITIN BLD FERRITIN BLD Lab Routine Elevated liver enzymes Fatty metamorphosis of liver Expected: 01/05/2022, Expires: 03/07/2022 [facility] Work Phone: Comment on above: Expected: 01/05/2022, Expires: 2 Start: 01-05-2022 End: 03-07-2022 Gamma glutamyl transferase [Enzymatic activity/volume] in Serum or Plasma GGT BLD Lab Routine Elevated liver enzymes Fatty metamorphosis of liver Expected: 01/05/2022, Expires: 03/07/2022 [facility] Work Phone: Comment on above: Expected: 01/05/2022, Expires: 2 Start: 01-05-2022 End: 03-07-2022 Hepatitis B virus core IgM Ab [Presence] in Serum HEP B CORE AB IGM Lab Routine Elevated liver enzymes Fatty metamorphosis of liver Expected: 01/05/2022, Expires: 03/07/2022 [facility] Work Phone: Comment on above: Expected: 01/05/2022, Expires: 2 Start: 01-05-2022 End: 03-07-2022 Hepatitis B virus surface Ab [Presence] in Serum HEP B SURF AB QUAL Lab Routine Elevated liver enzymes Fatty metamorphosis of liver Expected: 01/05/2022, Expires: 03/07/2022 [facility] Work Phone: Comment on above: Expected: 01/05/2022, Expires: 2 Start: 01-05-2022 End: 03-07-2022 Hepatitis B virus surface Ab [Presence] in Serum by Immunoassay HEP B SURF AG SCRN Lab Routine Elevated liver enzymes Fatty metamorphosis of liver Expected: 01/05/2022, Expires: 03/07/2022 [facility] Work Phone: Comment on above: Expected: 01/05/2022, Expires: 2 Start: 01-05-2022 End: 03-07-2022 Hepatitis C virus Ab [Presence] in Serum HEP C AB IA W/CONF SCRN Lab Routine Elevated liver enzymes Fatty metamorphosis of liver Expected: 01/05/2022, Expires: 03/07/2022 [facility] Work Phone: Comment on above: Expected: 01/05/2022, Expires: 2 Start: 01-05-2022 End: 03-07-2022 IGA BLD IGA BLD Lab Routine Elevated liver enzymes Fatty metamorphosis of liver Expected: 01/05/2022, Expires: 03/07/2022 [facility] Work Phone: Comment on above: Expected: 01/05/2022, Expires: 2 Start: 01-05-2022 End: 03-07-2022 IRON + TIBC IRON + TIBC Lab Routine Elevated liver enzymes Fatty metamorphosis of liver Expected: 01/05/2022, Expires: 03/07/2022 [facility] Work Phone: Comment on above: Expected: 01/05/2022, Expires: 2 Start: 01-05-2022 End: 03-07-2022 Mitochondria Ab [Presence] in Serum by Immunofluorescence MITOCHONDRIAL AB PNL SCRN Lab Routine Elevated liver enzymes Fatty metamorphosis of liver Expected: 01/05/2022, Expires: 03/07/2022 [facility] Work Phone: Comment on above: Expected: 01/05/2022, Expires: 2 Start: 01-05-2022 End: 03-07-2022 SMOOTH MUSCLE AB PNL SCRN SMOOTH MUSCLE AB PNL SCRN Lab Routine Elevated liver enzymes Fatty metamorphosis of liver Expected: 01/05/2022, Expires: 03/07/2022 [facility] Work Phone: Comment on above: Expected: 01/05/2022, Expires: 2 Start: 01-05-2022 End: 03-07-2022 T4/FTI/T4U T4/FTI/T4U Lab Routine Elevated liver enzymes Fatty metamorphosis of liver Expected: 01/05/2022, Expires: 03/07/2022 [facility] Work Phone: Comment on above: Expected: 01/05/2022, Expires: 2 Start: 01-05-2022 End: 03-07-2022 Thyrotropin [Units/volume] in Serum or Plasma TSH BLD Lab Routine Elevated liver enzymes Fatty metamorphosis of liver Expected: 01/05/2022, Expires: 03/07/2022 [facility] Work Phone: Comment on above: Expected: 01/05/2022, Expires: 2 Start: 01-05-2022 End: 03-07-2022 Tissue transglutaminase IgA Ab [Units/volume] in Serum TRANSGLUTAMINASE IGA Lab Routine Elevated liver enzymes Fatty metamorphosis of liver Expected: 01/05/2022, Expires: 03/07/2022 [facility] Work Phone: Comment on above: Expected: 01/05/2022, Expires: 2 Start: 01-05-2022 End: 03-07-2022 Tissue transglutaminase IgG Ab [Units/volume] in Serum TRANSGLUTAMINASE IGG Lab Routine Elevated liver enzymes Fatty metamorphosis of liver Expected: 01/05/2022, Expires: 03/07/2022 [facility] Work Phone: Comment on above: Expected: 01/05/2022, Expires: 2 Start: 09-11-2021 ADVANCE DIRECTIVE DISCUSSION ADVANCE DIRECTIVE DISCUSSION [facility] Start: 09-11-2021 DEPRESSION ASSESSMENT DEPRESSION ASSESSMENT [facility] Start: 08-24-2021 Patient referral [facility] Work Phone: Start: 04-28-2021 Colonoscopy COLONOSCOPY [facility] Start: 04-28-2021 COLORECTAL CANCER SCREENING COLORECTAL CANCER SCREENING [facility] Start: 04-14-2021 Hepatitis B surface antibody level LDL CHOLESTEROL [facility] Start: 04-14-2021 Mammography [facility] Start: 04-14-2021 Screening for malignant neoplasm of breast Mammogram Screening [facility] Start: 11-16-2020 BONE DENSITY BONE DENSITY [facility] Start: 11-16-2020 Bone Density Screening Bone Density Screening [facility] Start: 11-16-2020 PNEUMOVAX AGE 65 AND OVER WITH 5YR LOOKBACK (#1) PNEUMOVAX AGE 65 AND OVER WITH 5YR LOOKBACK (#1) [facility] Start: 11-16-2020 Screening for osteoporosis Bone Density Screening [facility] Start: 09-12-2020 Hemoglobin A1c/Hemoglobin.total in Blood HBA1C [facility] Start: 09-07-2017 End: 09-07-2017 Appointment Appointment [facility] Work Phone: Start: 07-20-2017 End: 07-20-2017 Appointment Appointment [facility] Work Phone: Start: 07-18-2017 End: 07-18-2017 Appointment Appointment [facility] Work Phone: Start: 07-17-2017 End: 07-17-2017 Appointment Appointment [facility] Work Phone: Start: 07-03-2017 End: 07-03-2017 [facility] Work Phone: Start: 07-03-2017 End: 07-03-2017 Follow Up Appt 1 month Follow Up Appt 1 month [facility] Work Phone: Start: 07-03-2017 End: 07-03-2017 WhyWeight WhyWeight [facility], [address], [place], [address] [facility] Work Phone: Start: 06-29-2017 End: 06-29-2017 BNP *Brain Natriuretic Peptide BNP [facility] Work Phone: Start: 06-29-2017 End: 06-29-2017 DJN DJN [facility] Work Phone: Start: 06-29-2017 End: 06-29-2017 Follow up Appt 3 weeks Follow up Appt 3 weeks [facility] Work Phone: Start: 06-14-2017 End: 06-14-2017 Endocrinology Referral Endocrinology Referral Sherine (BJ) IJEOMA Craft, [address], [address], [facility], [place], [address] [facility] Work Phone: Start: 06-12-2017 End: 06-19-2017 *MISC - Miscellaneous Lab Test #1 *MISC - Miscellaneous Lab Test #1 [facility] Work Phone: Start: 06-12-2017 End: 06-19-2017 DMB DMB [facility] Work Phone: Start: 06-12-2017 End: 06-19-2017 Follow Up Appt 3 months Follow Up Appt 3 months [facility] Work Phone: Start: 06-12-2017 End: 06-19-2017 Pulmonary Function Test - complete Pulmonary Function Test - complete [facility] Phone: Start: 06-12-2017 End: 06-19-2017 Pulmonary stress test/simple Pulmonary stress testing; simple (eg, 6-minute walk) [facility] Phone: Start: 2015 Hepatitis B Vaccine (1 of 3 - Risk 3-dose series) Hepatitis B Vaccine (1 of 3 - Risk 3-dose series) [facility] Start: 2015 RSV Immunization for Adults (1 - Risk 60-74 years 1-dose series) RSV Immunization for Adults (1 - Risk 60-74 years 1-dose series) [facility] Start: 2015 RSV Vaccine (1 - 1-dose 60+ series) RSV Vaccine (1 - 1-dose 60+ series) [facility] Start: 2015 RSV Vaccine (1 - Risk 60-74 years 1-dose series) RSV Vaccine (1 - Risk 60-74 years 1-dose series) [facility] Start: 06-10-2011 FECAL OCCULT BLOOD FECAL OCCULT BLOOD [facility] Start: 06-10-2011 Screening for malignant neoplasm of colon Fecal Occult Blood [facility] Start: 11-16-2005 Pneumococcal Vaccine: 50+ Years (1 of 1 - PCV) Pneumococcal Vaccine: 50+ Years (1 of 1 - PCV) [facility] Start: 11-16-2005 SHINGRIX VACCINE (1 of 2) SHINGRIX VACCINE (1 of 2) [facility] Start: 11-16-2005 Zoster Vaccines (1 of 2) Zoster Vaccines (1 of 2) [facility] Start: 11-16-2000 COLOGUARD (FIT-DNA) COLOGUARD (FIT-DNA) [facility] Start: 11-16-[address] COLONOGRAPHY [facility] Start: 11-16-2000 Screening for malignant neoplasm of colon [facility] Start: 11-16-2000 SIGMOIDOSCOPY SIGMOIDOSCOPY [facility] Start: 12-23-1999 Screening for malignant neoplasm of cervix Cervical Cancer Screening [facility] Start: 1995 Screening for malignant neoplasm of breast Mammogram [facility] Start: 11-16-1974 DTaP/Tdap/Td Vaccines (1 - Tdap) DTaP/Tdap/Td Vaccines (1 - Tdap) [facility] Start: 11-16-1974 Pneumococcal Vaccine: 50+ (1 of 2 - PCV) Pneumococcal Vaccine: 50+ (1 of 2 - PCV) [facility] Start: 11-16-1974 SHINGRIX VACCINE (1 of 2) SHINGRIX VACCINE (1 of 2) [facility] Start: 11-16-1974 Urine microalbumin profile [facility] Start: 11-16-1973 ANNUAL PCP TEAM CHRONIC DISEASE VISIT ANNUAL PCP TEAM CHRONIC DISEASE VISIT [facility] Start: 11-16-1973 Anxiety Screening Anxiety Screening [facility] Start: 11-16-1973 BP CONTROLLED (<130/80) BP CONTROLLED (<130/80) [facility] in Start: 11-16-1973 Depression Screening Depression Screening [facility] Start: 11-16-1973 Diabetes: Estimated Glomerular Filtration Rate for Kidney Health Diabetes: Estimated Glomerular Filtration Rate for Kidney Health [facility] Start: 11-16-1973 Diabetes: Urine Albumin-Creatinine Ratio for Kidney Health Diabetes: Urine Albumin-Creatinine Ratio for Kidney Health [facility] Start: 11-16-1973 HEPATITIS C SCREENING HEPATITIS C SCREENING [facility] Start: 11-16-1973 Hepatitis C screening Hepatitis C Screening [facility] Start: 1967 Adult depression screening assessment DEPRESSION SCREENING [facility] Start: 1967 COVID-19 VACCINE (1) COVID-19 VACCINE (1) [facility] Start: 11-16-1965 3 comp foot exam completed DIABETIC FOOT EXAM [facility] Start: 11-16-1965 Diabetic foot examination [facility] Start: 11-16-1965 Glaucoma screening [facility] Start: 11-16-1965 Hepatitis B screening URINE ALBUMIN:CREATININE RATIO [facility] Start: 11-16-1965 Hepatitis C antibody, confirmatory test DILATED RETINAL EXAM [facility] Start: 11-16-1965 Preventive dental service Diabetes: Dental Exam [facility] Start: 11-16-1961 Pneumococcal Vaccine: 65+ (1 - PCV) Pneumococcal Vaccine: 65+ (1 - PCV) [facility] Start: 11-16-1961 Pneumococcal Vaccine: 65+ (1 of 2 - PCV) Pneumococcal Vaccine: 65+ (1 of 2 - PCV) [facility] Start: 11-16-1961 PNEUMOCOCCAL: 65+ (1 - PCV) PNEUMOCOCCAL: 65+ (1 - PCV) [facility] Start: 11-16-1960 COVID-19 VACCINE (#1) COVID-19 VACCINE (#1) [facility] Start: 05-19-1956 COVID-19 VACCINE (#1) COVID-19 VACCINE (#1) [facility] Start: 1955 Creatinine measurement Creatinine Level [facility] Start: 1955 Echocardiography Echocardiogram [facility] Start: 1955 Lipid panel Lipid Panel [facility] Start: 1955 Potassium measurement Potassium Level [facility] Start: 1955 Screening for malignant neoplasm of colon [facility] Alanine aminotransfe rase [Enzymatic activity/volume] in Serum or Plasma [facility] Albumin [Mass/volume ] in Serum or Plasma [facility] Alkaline phosphatase [Enzymatic activity/volume] in Serum or Plasma [facility] Anion gap in Serum o r Plasma [facility] Beef IgE Ab [Units/volume] in Serum [facility] Bilirubin, total measurement [facility] Blood chemistry [facility] BUN/Creatinine ratio [facility] Calcium [Mass/volume ] in Serum or Plasma [facility] Carbon dioxide, tota l [Moles/volume] in Central venous blood [facility] Chocolate IgE Ab [Units/volume] in Serum [facility] Clostridioides diffi cile toxin genes [Presence] in Stool by WINSTON with probe detection C. DIFFICILE PCR Lab Routine Diarrhea, unspecified type Ordered: 03/11/2024 [facility] Work Phone: Comment on above: Ordered: 03/11/2024 Codfish IgE Ab [Units/volume] in Serum [facility] End: 08-30-2023 COLONOSCOPY DIAGNOSTIC COLONOSCOPY DIAGNOSTIC Endoscopy Routine Diverticulitis 1 Occurrences starting 08/30/2022 until 08/30/2023 [facility] Work Phone: Comment on above: 1 Occurrences starting 08/30/2022 until 08/30/2023 Amity IgE Ab [Units/volume] in Serum [facility] Cow milk IgE Ab [Units/volume] in Serum [facility] Creatinine [Mass/vol ume] in Serum or Plasma [facility] End: 04-10-2025 CT Abdomen and Pelvis W contrast IV CT ABD/PEL W IVCON Radiology Routine Left lower quadrant abdominal pain 1 Occurrences starting 03/11/2024 until 04/10/2025 [facility] Comment on above: 1 Occurrences starting 03/11/2024 until 04/10/2025 CT Abdomen and Pelvi s W contrast IV CT ABD/PEL W IVCON Radiology Routine Diverticulitis Nausea and vomiting, unspecified vomiting type Diarrhea, unspecified type 04/23/2025 3:18 PM EDT [facility] Work Phone: CT Chest WO contrast [facility] End: 02-14-2023 Echocardiography ECHO Cardiology Routine DEE (dyspnea on exertion) 1 Occurrences starting 02/14/2022 until 02/14/2023 [facility] Work Phone: Comment on above: 1 Occurrences starting 02/14/2022 until 02/14/2023 Elastase.pancreatic [Presence] in Stool [facility] ENTERIC BACTERIAL PA [place] BY PCR ENTERIC BACTERIAL PANEL BY PCR Lab Routine Diarrhea, unspecified type Ordered: 03/11/2024 [facility] Comment on above: Ordered: 03/11/2024 Enteric Bacteriology Enteric Bacteriology [facility] Work Phone: Erythrocyte mean corpuscular volume determination [facility] End: 03-28-2026 Flexible sigmoidoscopy study COLONOSCOPY DIAGNOSTIC Endoscopy Routine Diverticulitis 1 Occurrences starting 03/28/2025 until 03/28/2026 [facility] Comment on above: 1 Occurrences starting 03/28/2025 until 03/28/2026 Food RAST [facility] Gastrointestinal pathogens panel - Stool by WINSTON with probe detection [facility] Work Phone: Giardia lamblia+Cryptosporidium sp Ag [Presence] in Stool by Immunoassay CRYPTOSPORIDIUM AND GIARDIA ANTIGENS BY EIA Microbiology Routine Diarrhea, unspecified type Ordered: 03/11/2024 [facility] Comment on above: Ordered: 03/11/2024 Glucose [Mass/volume ] in Serum or Plasma [facility] Hematocrit [Volume Fraction] of Blood [facility] Hemoglobin [Mass/vol ume] in Blood [facility] Hepatitis B virus co re Ab [Presence] in Serum [facility] INR in Blood by Coagulation assay [facility] Leukocytes [#/volume ] in Blood [facility] Liver stiffness by US.transient elastography [facility] Liver ultrasound attenuation by transient elastography DDI VIBRATION CONTROLLED TRANSIENT ELASTOGRAPHY (VCTE) Endoscopy Routine Metabolic dysfunction-associated steatohepatitis (MASH) Ordered: 03/11/2024 [facility] Comment on above: Ordered: 03/11/2024 Mean corpuscular hemoglobin concentration determination [facility] Mean corpuscular hemoglobin determination [facility] Measurement of renal function [facility] Neutrophil count [place] Neutrophil percent differential count [facility] NM Heart Views W str ess and W radionuclide IV [facility] Path report.final Dx Spec [facility] Patient Education [facility] Work Phone: Patient referral [place] Work Phone: Peanut IgE Ab [Units/volume] in Serum [facility] Platelets [#/volume] in Blood [facility] Pork IgE Ab [Units/volume] in Serum [facility] Potassium measurement [facility] Protein measurement [facility] Radionuclide imaging of perfusion of myocardium under exercise stress [facility] Red blood cell count [facility] Red cell distributio n width determination [facility] Menard IgE Ab [Units/volume] in Serum [facility] Serum chloride measurement [facility] Shrimp IgE Ab [Units/volume] in Serum [facility] Sodium measurement [facility] Soybean IgE Ab [Units/volume] in Serum [facility] Total protein measurement [facility] Tuna IgE Ab [Units/volume] in Serum [facility] Urea nitrogen [Mass/volume] in Serum or Plasma [facility] End: 04-10-2025 US Abdomen RUQ US ABD RIGHT UPPER QUADRANT Radiology Routine Metabolic dysfunction-associated steatohepatitis (MASH) 1 Occurrences starting 03/11/2024 until 04/10/2025 [facility] Comment on above: 1 Occurrences starting 03/11/2024 until 04/10/2025 End: 05-30-2022 Us abdominal real time w/image limited [facility] Work Phone: Comment on above: 1 Occurrences starting 05/30/2022 until 05/30/2022 US Breast limited [facility] US Heart [facility] US Heart [facility] Walking distance 6 minutes [facility] Wheat IgE Ab [Units/volume] in Serum [facility] Whole Egg IgE Ab [Units/volume] in Serum [facility] Payers Date Payer Category Payer Medicare HMO MMO MEDICARE ADV ANTAGE [id number] 2024 Self-pay [id number] 2021 Medicare MMO MEDICARE MMO MEDADVANTAGE HMO [id number] 2021-Present [phone] [place], [place] [id number] [facility] [place] [id number] 2021 Medicare MMO MEDICARE MMO MEDADVANTAGE HMO [id number] 2021-Present [phone] [place] [id number] [facility] [place] [id number] 2021 Medicare (Managed Care) MMO IRWIN DVANTAGE HMO [id number] 2021 Unknown [id number] 2012 Government (not [facility] care or Medicaid) [facility] [id number] 15 2012 Unknown [facility] [id number] 2012-Present [phone] [place] [address] [id number] Medicare [id number] Unknown [id number] Unknown [id number] 9.2.462 Unknown [id number] 2.16.840.1.479645.3.57 9.2.462 Unknown [id number] 2.16.840.1.150012.3.57 9.2.462 Unknown [id number] 2.16.840.1.605426.3.57 9.2.462 Unknown [id number] 2.16.840.1.207573.3.57 9.2.462 Unknown [id number] 2.16.840.1.959389.3.57 9.2.462 Unknown [id number] 2.16.840.1.752700.3.57 9.2.462 Unknown [id number] 2.16.840.1.153853.3.57 9.2.462 Unknown [id number] 2.16.840.1.894423.3.57 9.2.462 Unknown [id number] 2.16840.1.133653.3.57 9.2.462 Unknown [id number] 2.16.840.1.737323.3.57 9.2.462 Unknown [id number] 2.16.840.1.463119.3.57 9.2.462 Unknown [id number] 2.840.1.616304.3.57 9.2.462 Unknown [id number] 2.16840.1.775183.3.57 9.2.462 Unknown [id number] 2.840.1.079347.3.57 9.2.462 Unknown [id number] 2.16.840.1.777742.3.57 9.2.462 Unknown [id number] 2.16840.1.002473.3.57 9.2.462 Unknown [id number] 2.16.840.1.595142.3.57 9.2.462 Unknown [id number] 2.16.840.1.316265.3.57 9.2.462 Unknown [id number] 2.16.840.1.905298.3.57 9.2.462 Unknown [id number] 2.16.840.1.349917.3.57 9.2.462 Unknown [id number] 2.16.840.1.308802.3.57 9.2.462 Unknown [id number] 2.16840.1.193474.3.57 9.2.462 Unknown [id number] 2.16.840.1.661058.3.57 9.2.462 Unknown [id number] 2.16.840.1.322659.3.57 9.2.462 Unknown [id number] [id number] 9.2.462 Social History Date Type Detail Facility Start: 11-29-2021 End: 08-28-2023 Tobacco smoking status [facility]IS Unknown if ever smoked [facility] Start: 1955 Sex Assigned At Female C [facility] Start: 05-25-2022 End: 01-23-2025 Tobacco smoking status MSIS Ex-smoker [facility] Work Phone: Start: 09-11-1974 End: 09-11-1989 History of tobacco use Current smoker [facility] Work Phone: Start: 11-02-2021 End: 04-23-2025 Alcohol intake Current non-drinker of alcohol (finding) [facility] Start: 11-02-2021 End: 02-23-2023 Alcohol intake [facility] Start: 11-26-2020 History SDOH Alcohol Comment occasional, rare [facility] Start: 12-20-2021 End: 05-30-2022 Exposure to SARS-CoV-2 (event) Not sure [facility] Start: 09-11-1974 End: 09-11-1989 History of tobacco use Cigarette Smoker [facility] Start: 05-25-2022 End: 08-07-2024 Tobacco use and exposure Smokeless tobacco non-user [facility] Start: 06-02-2017 Rare [facility] Start: 06-02-2017 None [facility] Start: 06-02-2017 Spouse/ Signif icant Other [facility] Start: 02-22-2023 End: 02-23-2023 Tobacco use panel [facility] Start: 08-12-2012 PHQ2 Score 2 [facility] Start: 03-29-2020 Gender identity Identifies as female gender (finding) [facility] Start: 04-11-2022 End: 11-27-2024 Sex Female (finding) [facility] Start: 1955 Sex assigned at Not on file [employer] Has the electric, gas, oil, or water company threatened to shut off services in your home in past 12Mo No [facility] (I/We) worried whether (my/our) food would run out before (I/we) got money to buy more. Never true [facility] NEGATED: Highlighted rowStart: NINF History of tobacco use Passive smoker [facility] Medical Equipment Procedure Code Equipment Code Equipment Origin al Text Equipment Identifier Dates Blood Sugar Diagnostic (Freestyle Lite Strips) strip Start: 04-30-2020 Lancets (Freesty le Lancets) 28 gauge misc Start: 04-30-2020 Lancets (Onetouc h Delica Plus Lancet) 33 gauge misc Start: 08-13-2020 Lancing Device With Lancets (Onetouch Delica Plus Lanc Dev) kit Start: 08-13-2020 Blood Sugar Diagnostic (Freestyle Lite Strips) strip Start: 01-06-2020 End: 03-11-2020 Blood Sugar Diagnostic (Freestyle Lite Strips) strip Start: 03-11-2020 End: 03-12-2020 Blood Sugar Diagnostic (Freestyle Lite Strips) strip Start: 03-12-2020 End: 04-30-2020 Lancets (Freesty le Lancets) 28 gauge misc Start: 01-06-2020 End: 04-30-2020 [id number], [id number], [id number], [id number], [id number], [id number], [id number], [id number], [id number], [id number] Start: 08-10-2020 End: 04-07-2025 Comment on above: use to test blood cade gars THREE TIMES DAILY as directed. To use with victoza pen Lancet device for on e touch delica lancets; check glucose once daily ; E11.9, NIDDM Use as directed to c heck glucose once daily. E11.9 Use as directed to c heck glucose once daily.E11.9 Blood Sugar Diagnostic (Freestyle Lite Strips) strip Start: 12-08-2021 Lancets (Freesty le Lancets) 28 gauge misc Start: 12-08-2021 Lancing Device With Lancets (Onetouch Delica Plus Lanc Dev) kit Start: 08-13-2020 Blood Sugar Diagnostic (Freestyle Lite Strips) strip Start: 01-06-2020 End: 03-11-2020 Blood Sugar Diagnostic (Freestyle Lite Strips) strip Start: 03-11-2020 End: 03-12-2020 Blood Sugar Diagnostic (Freestyle Lite Strips) strip Start: 03-12-2020 End: 04-30-2020 Blood Sugar Diagnostic (Freestyle Lite Strips) strip Start: 04-30-2020 End: 12-08-2021 Lancets (Freesty le Lancets) 28 gauge misc Start: 01-06-2020 End: 04-30-2020 Lancets (Freesty le Lancets) 28 gauge misc Start: 04-30-2020 End: 01-26-2022 Lancets (Onetouc h Delica Plus Lancet) 33 gauge misc Start: 08-13-2020 End: 01-26-2022 Blood Sugar Diagnostic (Freestyle Lite Strips) strip Start: 12-08-2021 Lancets (Freesty le Lancets) 28 gauge misc Start: 12-08-2021 Lancing Device With Lancets (Onetouch Delica Plus Lanc Dev) kit Start: 08-13-2020 Blood Sugar Diagnostic (Freestyle Lite Strips) strip Start: 01-06-2020 End: 03-11-2020 Blood Sugar Diagnostic (Freestyle Lite Strips) strip Start: 03-11-2020 End: 03-12-2020 Blood Sugar Diagnostic (Freestyle Lite Strips) strip Start: 03-12-2020 End: 04-30-2020 Blood Sugar Diagnostic (Freestyle Lite Strips) strip Start: 04-30-2020 End: 12-08-2021 Lancets (Freesty le Lancets) 28 gauge misc Start: 01-06-2020 End: 04-30-2020 Lancets (Freesty le Lancets) 28 gauge misc Start: 04-30-2020 End: 01-26-2022 Lancets (Onetouc h Delica Plus Lancet) 33 gauge misc Start: 08-13-2020 End: 01-26-2022 Blood Sugar Diagnostic (Freestyle Lite Strips) strip Start: 03-30-2022 Lancets (Freesty le Lancets) 28 gauge misc Start: 12-08-2021 Lancing Device With Lancets (Onetouch Delica Plus Lanc Dev) kit Start: 08-13-2020 Blood Sugar Diagnostic (Freestyle Lite Strips) strip Start: 01-06-2020 End: 03-11-2020 Blood Sugar Diagnostic (Freestyle Lite Strips) strip Start: 03-11-2020 End: 03-12-2020 Blood Sugar Diagnostic (Freestyle Lite Strips) strip Start: 03-12-2020 End: 04-30-2020 Blood Sugar Diagnostic (Freestyle Lite Strips) strip Start: 04-30-2020 End: 12-08-2021 Lancets (Freesty le Lancets) 28 gauge misc Start: 01-06-2020 End: 04-30-2020 Lancets (Freesty le Lancets) 28 gauge misc Start: 04-30-2020 End: 01-26-2022 Lancets (Onetouc h Delica Plus Lancet) 33 gauge misc Start: 08-13-2020 End: 01-26-2022 Blood Sugar Diagnostic (Freestyle Lite Strips) strip Start: 12-08-2021 Lancets (Freesty le Lancets) 28 gauge misc Start: 12-08-2021 Lancing Device With Lancets (Onetouch Delica Plus Lanc Dev) kit Start: 08-13-2020 Blood Sugar Diagnostic (Freestyle Lite Strips) strip Start: 01-06-2020 End: 03-11-2020 Blood Sugar Diagnostic (Freestyle Lite Strips) strip Start: 03-11-2020 End: 03-12-2020 Blood Sugar Diagnostic (Freestyle Lite Strips) strip Start: 03-12-2020 End: 04-30-2020 Blood Sugar Diagnostic (Freestyle Lite Strips) strip Start: 04-30-2020 End: 12-08-2021 Lancets (Freesty le Lancets) 28 gauge misc Start: 01-06-2020 End: 04-30-2020 Lancets (Freesty le Lancets) 28 gauge misc Start: 04-30-2020 End: 01-26-2022 Lancets (Onetouc h Delica Plus Lancet) 33 gauge misc Start: 08-13-2020 End: 01-26-2022 Blood Sugar Diagnostic (Freestyle Lite Strips) strip Start: 12-08-2021 Lancets (Freesty le Lancets) 28 gauge misc Start: 12-08-2021 Lancing Device With Lancets (Onetouch Delica Plus Lanc Dev) kit Start: 08-13-2020 Blood Sugar Diagnostic (Freestyle Lite Strips) strip Start: 01-06-2020 End: 03-11-2020 Blood Sugar Diagnostic (Freestyle Lite Strips) strip Start: 03-11-2020 End: 03-12-2020 Blood Sugar Diagnostic (Freestyle Lite Strips) strip Start: 03-12-2020 End: 04-30-2020 Blood Sugar Diagnostic (Freestyle Lite Strips) strip Start: 04-30-2020 End: 12-08-2021 Lancets (Freesty le Lancets) 28 gauge misc Start: 01-06-2020 End: 04-30-2020 Lancets (Freesty le Lancets) 28 gauge misc Start: 04-30-2020 End: 01-26-2022 Lancets (Onetouc h Delica Plus Lancet) 33 gauge misc Start: 08-13-2020 End: 01-26-2022 Blood Sugar Diagnostic (Freestyle Lite Strips) strip Start: 12-08-2021 Lancets (Freesty le Lancets) 28 gauge misc Start: 12-08-2021 Lancing Device With Lancets (Onetouch Delica Plus Lanc Dev) kit Start: 08-13-2020 Blood Sugar Diagnostic (Freestyle Lite Strips) strip Start: 01-06-2020 End: 03-11-2020 Blood Sugar Diagnostic (Freestyle Lite Strips) strip Start: 03-11-2020 End: 03-12-2020 Blood Sugar Diagnostic (Freestyle Lite Strips) strip Start: 03-12-2020 End: 04-30-2020 Blood Sugar Diagnostic (Freestyle Lite Strips) strip Start: 04-30-2020 End: 12-08-2021 Lancets (Freesty le Lancets) 28 gauge misc Start: 01-06-2020 End: 04-30-2020 Lancets (Freesty le Lancets) 28 gauge misc Start: 04-30-2020 End: 01-26-2022 Lancets (Onetouc h Delica Plus Lancet) 33 gauge misc Start: 08-13-2020 End: 01-26-2022 Blood Sugar Diagnostic (Freestyle Lite Strips) strip Start: 12-08-2021 Lancets (Freesty le Lancets) 28 gauge misc Start: 12-08-2021 Lancing Device With Lancets (Onetouch Delica Plus Lanc Dev) kit Start: 08-13-2020 Blood Sugar Diagnostic (Freestyle Lite Strips) strip Start: 01-06-2020 End: 03-11-2020 Blood Sugar Diagnostic (Freestyle Lite Strips) strip Start: 03-11-2020 End: 03-12-2020 Blood Sugar Diagnostic (Freestyle Lite Strips) strip Start: 03-12-2020 End: 04-30-2020 Blood Sugar Diagnostic (Freestyle Lite Strips) strip Start: 04-30-2020 End: 12-08-2021 Lancets (Freesty le Lancets) 28 gauge misc Start: 01-06-2020 End: 04-30-2020 Lancets (Freesty le Lancets) 28 gauge misc Start: 04-30-2020 End: 01-26-2022 Lancets (Onetouc h Delica Plus Lancet) 33 gauge misc Start: 08-13-2020 End: 01-26-2022 Blood Sugar Diagnostic (Freestyle Lite Strips) strip Start: 12-08-2021 Lancets (Freesty le Lancets) 28 gauge misc Start: 12-08-2021 Lancing Device With Lancets (Onetouch Delica Plus Lanc Dev) kit Start: 08-13-2020 Blood Sugar Diagnostic (Freestyle Lite Strips) strip Start: 01-06-2020 End: 03-11-2020 Blood Sugar Diagnostic (Freestyle Lite Strips) strip Start: 03-11-2020 End: 03-12-2020 Blood Sugar Diagnostic (Freestyle Lite Strips) strip Start: 03-12-2020 End: 04-30-2020 Blood Sugar Diagnostic (Freestyle Lite Strips) strip Start: 04-30-2020 End: 12-08-2021 Lancets (Freesty le Lancets) 28 gauge misc Start: 01-06-2020 End: 04-30-2020 Lancets (Freesty le Lancets) 28 gauge misc Start: 04-30-2020 End: 01-26-2022 Lancets (Onetouc h Delica Plus Lancet) 33 gauge misc Start: 08-13-2020 End: 01-26-2022 Blood Sugar Diagnostic (Freestyle Lite Strips) strip Start: 12-08-2021 Lancets (Freesty le Lancets) 28 gauge misc Start: 12-08-2021 Lancing Device With Lancets (Onetouch Delica Plus Lanc Dev) kit Start: 08-13-2020 Blood Sugar Diagnostic (Freestyle Lite Strips) strip Start: 01-06-2020 End: 03-11-2020 Blood Sugar Diagnostic (Freestyle Lite Strips) strip Start: 03-11-2020 End: 03-12-2020 Blood Sugar Diagnostic (Freestyle Lite Strips) strip Start: 03-12-2020 End: 04-30-2020 Blood Sugar Diagnostic (Freestyle Lite Strips) strip Start: 04-30-2020 End: 12-08-2021 Lancets (Freesty le Lancets) 28 gauge misc Start: 01-06-2020 End: 04-30-2020 Lancets (Freesty le Lancets) 28 gauge misc Start: 04-30-2020 End: 01-26-2022 Lancets (Onetouc h Delica Plus Lancet) 33 gauge misc Start: 08-13-2020 End: 01-26-2022 Blood Sugar Diagnostic (Freestyle Lite Strips) strip Start: 12-08-2021 Lancets (Freesty le Lancets) 28 gauge misc Start: 12-08-2021 Lancing Device With Lancets (Onetouch Delica Plus Lanc Dev) kit Start: 08-13-2020 Blood Sugar Diagnostic (Freestyle Lite Strips) strip Start: 01-06-2020 End: 03-11-2020 Blood Sugar Diagnostic (Freestyle Lite Strips) strip Start: 03-11-2020 End: 03-12-2020 Blood Sugar Diagnostic (Freestyle Lite Strips) strip Start: 03-12-2020 End: 04-30-2020 Blood Sugar Diagnostic (Freestyle Lite Strips) strip Start: 04-30-2020 End: 12-08-2021 Lancets (Freesty le Lancets) 28 gauge misc Start: 01-06-2020 End: 04-30-2020 Lancets (Freesty le Lancets) 28 gauge misc Start: 04-30-2020 End: 01-26-2022 Lancets (Onetouc h Delica Plus Lancet) 33 gauge misc Start: 08-13-2020 End: 01-26-2022 Blood Sugar Diagnostic (Freestyle Lite Strips) strip Start: 12-08-2021 Lancets (Freesty le Lancets) 28 gauge misc Start: 12-08-2021 Lancing Device With Lancets (Onetouch Delica Plus Lanc Dev) kit Start: 08-13-2020 Blood Sugar Diagnostic (Freestyle Lite Strips) strip Start: 01-06-2020 End: 03-11-2020 Blood Sugar Diagnostic (Freestyle Lite Strips) strip Start: 03-11-2020 End: 03-12-2020 Blood Sugar Diagnostic (Freestyle Lite Strips) strip Start: 03-12-2020 End: 04-30-2020 Blood Sugar Diagnostic (Freestyle Lite Strips) strip Start: 04-30-2020 End: 12-08-2021 Lancets (Freesty le Lancets) 28 gauge misc Start: 01-06-2020 End: 04-30-2020 Lancets (Freesty le Lancets) 28 gauge misc Start: 04-30-2020 End: 01-26-2022 Lancets (Onetouc h Delica Plus Lancet) 33 gauge misc Start: 08-13-2020 End: 01-26-2022 Blood Sugar Diagnostic (Freestyle Lite Strips) strip Start: 12-08-2021 Lancets (Freesty le Lancets) 28 gauge misc Start: 12-08-2021 Lancing Device With Lancets (Onetouch Delica Plus Lanc Dev) kit Start: 08-13-2020 Blood Sugar Diagnostic (Freestyle Lite Strips) strip Start: 01-06-2020 End: 03-11-2020 Blood Sugar Diagnostic (Freestyle Lite Strips) strip Start: 03-11-2020 End: 03-12-2020 Blood Sugar Diagnostic (Freestyle Lite Strips) strip Start: 03-12-2020 End: 04-30-2020 Blood Sugar Diagnostic (Freestyle Lite Strips) strip Start: 04-30-2020 End: 12-08-2021 Lancets (Freesty le Lancets) 28 gauge misc Start: 01-06-2020 End: 04-30-2020 Lancets (Freesty le Lancets) 28 gauge misc Start: 04-30-2020 End: 01-26-2022 Lancets (Onetouc h Delica Plus Lancet) 33 gauge misc Start: 08-13-2020 End: 01-26-2022 Blood Sugar Diagnostic (Freestyle Lite Strips) strip Start: 12-08-2021 Lancets (Freesty le Lancets) 28 gauge misc Start: 12-08-2021 Lancing Device With Lancets (Onetouch Delica Plus Lanc Dev) kit Start: 08-13-2020 Blood Sugar Diagnostic (Freestyle Lite Strips) strip Start: 01-06-2020 End: 03-11-2020 Blood Sugar Diagnostic (Freestyle Lite Strips) strip Start: 03-11-2020 End: 03-12-2020 Blood Sugar Diagnostic (Freestyle Lite Strips) strip Start: 03-12-2020 End: 04-30-2020 Blood Sugar Diagnostic (Freestyle Lite Strips) strip Start: 04-30-2020 End: 12-08-2021 Lancets (Freesty le Lancets) 28 gauge misc Start: 01-06-2020 End: 04-30-2020 Lancets (Freesty le Lancets) 28 gauge misc Start: 04-30-2020 End: 01-26-2022 Lancets (Onetouc h Delica Plus Lancet) 33 gauge misc Start: 08-13-2020 End: 01-26-2022 Blood Sugar Diagnostic (Freestyle Lite Strips) strip Start: 12-08-2021 Lancets (Freesty le Lancets) 28 gauge misc Start: 12-08-2021 Lancing Device With Lancets (Onetouch Delica Plus Lanc Dev) kit Start: 08-13-2020 Blood Sugar Diagnostic (Freestyle Lite Strips) strip Start: 01-06-2020 End: 03-11-2020 Blood Sugar Diagnostic (Freestyle Lite Strips) strip Start: 03-11-2020 End: 03-12-2020 Blood Sugar Diagnostic (Freestyle Lite Strips) strip Start: 03-12-2020 End: 04-30-2020 Blood Sugar Diagnostic (Freestyle Lite Strips) strip Start: 04-30-2020 End: 12-08-2021 Lancets (Freesty le Lancets) 28 gauge [facility] Start: 01-06-2020 End: 04-30-2020 Lancets (Freesty le Lancets) 28 gauge mis Start: 04-30-2020 End: 01-26-2022 Lancets (Onetouc h Delica Plus Lancet) 33 gauge [facility] Start: 08-13-2020 End: 01-26-2022 Goals Date Patient Goal Desired Activity /State Personal health goal Functional Status Date Assessment Result Facility 03-20-2025 Are you deaf, or do you have serious difficulty hearing No 03/20/2025 2:40 PM EDT Daphne Guthrie, JONI No [facility] 03-20-2025 Are you blind, or do you have serious difficulty seeing, even when wearing glasses No 03/20/2025 2:40 PM EDT Daphne Guthrie, JONI No [facility] 03-20-2025 Do you have serious difficulty walking or climbing stairs No 03/20/2025 2:40 PM EDT Daphne Guthrie RN No [facility] 03-20-2025 Do you have difficul ty dressing or bathing No 03/20/2025 2:40 PM EDT Daphne Guthrie RN [facility] 03-20-2025 Because of a physica l, mental, or emotional condition, do you have difficulty doing errands alone such as visiting a physician's office or shopping No 03/20/2025 2:40 PM EDT Daphne Guthrie RN No [facility] 07-08-2019 Are you deaf, or do you have serious difficulty hearing No 07/08/2019 5:43 PM EDT Carol Glasgow, JONI No [facility] 07-08-2019 Are you blind, or do you have serious difficulty seeing, even when wearing glasses No 07/08/2019 5:43 PM EDT Carol Glasgow, JONI No [facility] 07-08-2019 Do you have serious difficulty walking or climbing stairs No 07/08/2019 5:43 PM EDT Carol Glasgow, RN No [facility] 07-08-2019 Do you have difficul ty dressing or bathing No 07/08/2019 5:43 PM EDT Carol Glasgow, RN No [facility] 07-08-2019 Because of a physica l, mental, or emotional condition, do you have difficulty doing errands alone such as visiting a physician's office or shopping No 07/08/2019 5:43 PM EDT Carol Glasgow RN No [facility] Mental Status Date Assessment Result Facility 03-20-2025 Because of a physica l, mental, or emotional condition, do you have serious difficulty concentrating, remembering, or making decisions No 03/20/2025 2:40 PM EDT Daphne Guthrie RN No [facility] 07-08-2019 Because of a physica l, mental, or emotional condition, do you have serious difficulty concentrating, remembering, or making decisions No 07/08/2019 5:43 PM EDT Carol Glasgow RN No [facility] Clinical Notes 07-05-2019 to 06-27-2025 Telephone Encounter - Mateus Lobo RN - 05/21/2025 1:01 PM EDTTelephone Encounter - Mateus Lobo RN - 05/21/2025 1:01 PM EDTDischarge Instr - Other OrdersPatient Instructions Note Date & Type Note Facility 06-27-2025 Progress note [facility] 05-21-2025 Miscellaneous Notes Surgery canceled and patient is aware. [facility] ordered. documented in this encounter [facility] 05-21-2025 Telephone encounter Note Surgery canceled and patient is aware. [facility] ordered. [facility] 05-21-2025 Hospital Discharge instructions Lilli Ramirez MD - 05/21/2025 12:04 PM EDT Post Colonoscopy Instructions OK to resume clear liquids for the rest of today. Do not eat or drink anything after midnight. Symptoms or health problems to watch for after I leave the hospital: -Increasing abdominal pain or swelling unrelieved by rest, medication, and ice. -Severe or unrelenting nausea or vomiting. -Fever greater than 101.5 F (38.6 C) or chills. -Unable to take in liquids or solid foods for greater than 24 hours. -Shortness of breath. -Chest pain. -Racing heartbeat. -Difficulty urinating. -more than a cup of blood For these or any other concerning symptom, please call immediately for advice documented in this encounter [facility] 05-20-2025 Telephone encounter Note Returned call. No answer. Left voice message. Waiting on return call to discuss. [facility] 05-20-2025 Miscellaneous Notes Returned call. No answer. Left voice message. Waiting on return call to discuss. Alexandra is calling Marlon Cesar MD today with concern regarding insulin prior to her colonoscopy on 05/21 and surgery on 05/22. Patient has been identified by name and birthdate. Duration of symptoms: N/A Person calling: self Call patient at: on cell [phone] (home) [phone] (cell) Was an appointment scheduled: No Closing statement: Symptom Call: Thank you for calling [facility], your call is very important. A nurse will call in approximately 2-4 hours during business hours. If this is an emergency, please contact 911. Joon Bishop documented in this encounter [facility] 05-20-2025 Telephone encounter Note Patient called, state's she is on a clear liquid diet today prepping for Colonoscopy scheduled for tomorrow 05/21/25. She will then be NPO tomorrow AM. Following Colonoscopy she will remain on clear liquid diet for all of 05/21/25 in preparation for surgery on 05/22/25, she will be NPO the AM of 05/22/25. She has questions for today and tomorrow regarding her Glipizide. Recommended she take her Glipizide today as prescribed. She will be taking in "food" in the liquid form so she will need her glucose to be controlled. She will hold her Glipizide tomorrow AM for her Colonoscopy. After her Colonoscopy she is allowed her clear liquids for the remainder of the day, instructed her to take her Glipizide as long as it is during the day as it likely will be as her Colonoscopy is early tomorrow. She will need to keep her glucose lower in preparation for surgery. She needs to avoid high spikes in glucose for better preparation for anesthesia. She will then hold Glipizide the AM of surgery 05/22/25 as advised by her surgeon. From there recommended she follow direction by her surgeon and inpatient providers. She stated understanding and accepting of information. Closed. [facility] 05-20-2025 Miscellaneous Notes Patient called, state's she is on a clear liquid diet today prepping for Colonoscopy scheduled for tomorrow 05/21/25. She will then be NPO tomorrow AM. Following Colonoscopy she will remain on clear liquid diet for all of 05/21/25 in preparation for surgery on 05/22/25, she will be NPO the AM of 05/22/25. She has questions for today and tomorrow regarding her Glipizide. Recommended she take her Glipizide today as prescribed. She will be taking in "food" in the liquid form so she will need her glucose to be controlled. She will hold her Glipizide tomorrow AM for her Colonoscopy. After her Colonoscopy she is allowed her clear liquids for the remainder of the day, instructed her to take her Glipizide as long as it is during the day as it likely will be as her Colonoscopy is early tomorrow. She will need to keep her glucose lower in preparation for surgery. She needs to avoid high spikes in glucose for better preparation for anesthesia. She will then hold Glipizide the AM of surgery 05/22/25 as advised by her surgeon. From there recommended she follow direction by her surgeon and inpatient providers. She stated understanding and accepting of information. Closed. documented in this encounter [facility] 05-20-2025 Telephone encounter Note Alexandra is calling Marlon Cesar MD today with concern regarding insulin prior to her colonoscopy on 05/21 and surgery on 05/22. Patient has been identified by name and birthdate. Duration of symptoms: N/A Person calling: self Call patient at: on cell [phone] (home) [phone] (cell) Was an appointment scheduled: No Closing statement: Symptom Call: Thank you for calling [facility], your call is very important. A nurse will call in approximately 2-4 hours during business hours. If this is an emergency, please contact 911. Joon Bishop [facility] 04-23-2025 History of Present illness Narrative Radiology Service Progress Note DATE OF SERVICE: April 23, 2025 TIME: 3:17 PM PATIENT IDENTITY VERIFICATION COMPLETED USING TWO (2) STANDARD IDENTIFIERS: Name and Date of confirmed by patient verbally. FALL SCREENING: Has the patient had 2 falls in the last year or 1 fall with injury or currently using an Ambulatory Assistive Device (Walker, Cane, Wheelchair, Crutches, etc.)? No PATIENT GENDER DATA: Assigned female at . status: : No status: NO. PATIENT RELEVANT IMPLANT DATA REVIEWED: Yes PATIENT PRESENTS WITH AN IMPLANTABLE OR ATTACHED THIRD HELPER: No ALLERGIES: Reviewed and unchanged CONTRAST ALLERGY: NO. EXAM: CT -CONTRAST INDUCED NEPHROPATHY RISK FACTORS: Patient age > 60 years CREATININE: Creatinine Date Value Ref Range Status 04/23/2025 0.89 0.58 - 0.96 mg/dL Final 04/11/2025 0.80 0.58 - 0.96 mg/dL Final 03/26/2025 0.67 0.58 - 0.96 mg/dL Final Estimated Glomerular Filtration Rate Date Value Ref Range Status 04/23/2025 70 >=60 mL/min/1.73m Final Comment: Estimated Glomerular Filtration Rate (eGFR) is calculated using the 2020 CKD-EPI creatinine equation. This equation utilizes serum creatinine, sex, and age as parameters. The creatinine assay has traceable calibration to isotope dilution-mass spectrometry. Refer to KDIGO guidelines for clinical interpretation. In patients with unstable renal function, e.g. those with acute kidney injury, the eGFR may not accurately reflect actual GFR. eGFR- Date Value Ref Range Status 10/12/2021 >60 Final P.O.C.T. RESULTS: POC done: Yes, See Lab Tab April 23, 2025 TREATMENT: N/A PERIPHERAL IV DATA: Ambulatory: A peripheral IV was started in the Right antecubital site with a Angio cath: 22 gauge. RADIOLOGY DEPARTMENT: CT; Exam(s) Completed: Abdomen/Pelvis SIGNATURE: JOANNA Malloy) Oral Up PATIENT NAME: Alexandra Bella DATE: April 23, 2025 TIME: 3:17 PM documented in this encounter [facility] 04-23-2025 Note HNO ID: [id number] Author: MARTINE HELTON RT (R) Service: Radiology Author Type: Glove Cutter Type: Progress Notes Filed: 04/23/2025 15:18 Note Text: Radiology Service Progress Note DATE OF SERVICE: April 23, 2025 TIME: 3:17 PM PATIENT IDENTITY VERIFICATION COMPLETED USING TWO (2) STANDARD IDENTIFIERS: Name and Date of confirmed by patient verbally. FALL SCREENING: Has the patient had 2 falls in the last year or 1 fall with injury or currently using an Ambulatory Assistive Device (Walker, Cane, Wheelchair, Crutches, etc.)? No PATIENT GENDER DATA: Assigned female at . status: : No status: NO. PATIENT RELEVANT IMPLANT DATA REVIEWED: Yes PATIENT PRESENTS WITH AN IMPLANTABLE OR ATTACHED THIRD HELPER: No ALLERGIES: Reviewed and unchanged CONTRAST ALLERGY: NO. EXAM: CT -CONTRAST INDUCED NEPHROPATHY RISK FACTORS: Patient age > 60 years CREATININE: Creatinine Date Value Ref Range Status 04/23/2025 0.89 0.58 - 0.96 mg/dL Final 04/11/2025 0.80 0.58 - 0.96 mg/dL Final 03/26/2025 0.67 0.58 - 0.96 mg/dL Final Estimated Glomerular Filtration Rate Date Value Ref Range Status 04/23/2025 70 >=60 mL/min/1.73m? Final Comment: Estimated Glomerular Filtration Rate (eGFR) is calculated using the 2020 CKD-EPI creatinine equation. This equation utilizes serum creatinine, sex, and age as parameters. The creatinine assay has traceable calibration to isotope dilution-mass spectrometry. Refer to KDIGO guidelines for clinical interpretation. In patients with unstable renal function, e.g. those with acute kidney injury, the eGFR may not accurately reflect actual GFR. eGFR- Date Value Ref Range Status 10/12/2021 >60 Final P.O.C.T. RESULTS: POC done: Yes, See Lab Tab April 23, 2025 TREATMENT: N/A PERIPHERAL IV DATA: Ambulatory: A peripheral IV was started in the Right antecubital site with a Angio cath: 22 gauge. RADIOLOGY DEPARTMENT: CT; Exam(s) Completed: Abdomen/Pelvis SIGNATURE: RT Mellissa(R) Oral Up PATIENT NAME: Alexandra Bella DATE: April 23, 2025 TIME: 3:17 PM [facility] 04-23-2025 Telephone encounter Note Hi Dr. Esteban, I saw this mutual patient for their Pre-Anesthesia visit on 04/23/2025. Alexandra Bella is scheduled for Left - LAPAROSCOPIC HAND ASSISTED COLECTOMY with Dr. Marlon Cesar on 05/22/2025. Patient is having her CT ab/pelv performed this afternoon. During her PACC visit she did mention that her secretary receptionist at [place] expressed some concerns about uncontrolled GERD based on some morning cough & posterior oropharyngeal erythema. Patient is currently taking omeprazole daily and has added pepcid in the evening over the past few months. She also uses carafate for symptom relief. She is going for a colonoscopy on 05/21/[address] Cesar, the day before her surgery; her last EGD with yourself on 11/01/2022 is as follows: - The examined portion of the ileum was normal. - Mild diverticulosis in the sigmoid colon. There was evidence of diverticular spasm. Asya-diverticular erythema was seen. Petechia were visualized in association with the diverticular opening. There was no evidence of diverticular bleeding. - The examination was otherwise normal. - The distal rectum and anal verge are normal on retroflexion view. - Biopsies were taken with a cold forceps from the right colon and left colon for evaluation of microscopic colitis. Just wanted to give you a patient update in case you wanted to adjust her regimen or have her f/u in the office. Thanks! KAILASH Tate PACC Office: [facility] Work Phone: 04-23-[address] Esteban, I saw this mutual patient for their Pre-Anesthesia visit on 04/23/2025. Alexandra Bella is scheduled for Left - LAPAROSCOPIC HAND ASSISTED COLECTOMY with Dr. Marlon Cesar on 05/22/2025. Patient is having her CT ab/pelv performed this afternoon. During her PACC visit she did mention that her secretary receptionist at [place] expressed some concerns about uncontrolled GERD based on some morning cough & posterior oropharyngeal erythema. Patient is currently taking omeprazole daily and has added pepcid in the evening over the past few months. She also uses carafate for symptom relief. She is going for a colonoscopy on 05/21/[address] Cesar, the day before her surgery; her last EGD with yourself on 11/01/2022 is as follows: - The examined portion of the ileum was normal. - Mild diverticulosis in the sigmoid colon. There was evidence of diverticular spasm. Asya-diverticular erythema was seen. Petechia were visualized in association with the diverticular opening. There was no evidence of diverticular bleeding. - The examination was otherwise normal. - The distal rectum and anal verge are normal on retroflexion view. - Biopsies were taken with a cold forceps from the right colon and left colon for evaluation of microscopic colitis. Just wanted to give you a patient update in case you wanted to adjust her regimen or have her f/u in the office. Thanks! Martine Blake PA-C [facility] Office: documented in this encounter [facility] 04-23-2025 Instructions Martine Blake PA-C - 04/23/2025 9:46 AM EDT Images from the original note were not included. [facility] PATIENT PREOPERATIVE INSTRUCTIONS Marlon Cesar,* has scheduled you for your procedure at this surgery center: [facility]: [phone] --[id number] [id number]. Please check in on the 1st floor at registration desk 6. Please read below carefully for your personalized instructions. Arrival Time for Surgery: - The Surgery Center or hospital where you are having surgery will call the afternoon before surgery (or Monday for Monday surgery) with a scheduled arrival time. - If you have not heard by 4 pm, please contact the surgery center above. Dietary Restrictions: - Follow bowel prep instructions provided by your surgeon Medications: Unless instructed differently below, stay on all of your medications until your surgery. If you start any new medications after today's visit, please contact your surgeon. Pre-Surgery Med Instructions Medication Instructions glipiZIDE (GLUCOTROL XL) 2.5 mg 24 hr tablet Do not take the day of surgery neomycin 500 mg tablet Per surgeon's instructions losartan (COZAAR) 50 mg tablet If you normally take this medication in the morning, take the morning of surgery. metoprolol tartrate, short acting, (LOPRESSOR) 25 mg tablet If you normally take this medication in the morning, take the morning of surgery. furosemide (LASIX) 40 mg tablet Do not take the day of surgery sucralfate (CARAFATE) 100 mg/mL suspension Do not take the day of surgery levothyroxine (SYNTHROID) 200 mcg tablet If you normally take this medication in the morning, take the morning of surgery. omeprazole (PRILOSEC) 40 mg capsule If you normally take this medication in the morning, take the morning of surgery. losartan (COZAAR) 25 mg tablet If you normally take this medication in the morning, take the morning of surgery. flecainide (TAMBOCOR) 100 mg tablet If you normally take this medication in the morning, take the morning of surgery. apixaban (ELIQUIS) 5 mg tab(s) Hold 3 days before surgery. Last dose 05/18/2025. potassium chloride (K-TAB) 10 mEq tablet Do not take the day of surgery traMADol (ULTRAM) 50 mg tablet Continue as needed celecoxib (CELEBREX) 200 mg capsule Hold 7 days before surgery. If you are currently using a degs-flu-nuxo injectable or oral medication for diabetes or weight loss such as Dulaglutide (Trulicity), Exenatide (Byetta, Bydureon), Liraglutide (Victoza, Saxenda), Semaglutide (Ozempic, Wegovy, Rybelsus), or Tirzepatide (Mounjaro), the medicine should be stopped at least 7 days before surgery. These medicines can cause food to remain in your stomach for a very long time and increase the risks from surgery and anesthesia. Not stopping the medication for a long enough time may result in your surgery being rescheduled. If you start any new medications after today's visit, please contact the surgeon's office. Blood Thinning Medications: - Stop NSAIDS (Ibuprofen, Advil, Aleve, Motrin, Celebrex, Mobic, etc.) 7 days before surgery, as directed by your surgeon. - Stop Aspirin 7 days before surgery, as directed by your surgeon. - Stop herbal supplements 7 days before surgery. - You may take Tylenol (Acetaminophen) or any of your pain medications that do not contain aspirin or NSAIDS as needed. Important Reminders: - If you use CPAP/BIPAP, bring the machine with you to the surgery center. - If you are prescribed inhalers for breathing, continue using them. -If you are on dialysis, please check with your dialysis center or shop and alteration tailor to see if any adjustments need to be made to your schedule for the week of your surgery -Please be sure to brush your teeth and you can use mouth wash or rinse your mouth if dry. - Candy, mints, and tobacco products are NOT permitted the morning of surgery. - Hearing aids, dentures and glasses may be worn the morning of surgery. -If you have dentures or partials, please have a case to place them in or leave at home day of surgery. - NO jewelry, body piercings, makeup, hairpins or contacts are to be worn the day of surgery. If you develop symptoms such as a fever, cold, or flu, or have other changes to your health within TWO DAYS of scheduled surgery or the morning of surgery, please contact the surgery center above. Personal Belongings: -Please have photo ID and insurance cards. -If you do not have a copy of advance directives on file with us, please bring a copy with you on the day of surgery. - Leave ALL valuables and money at home or with family members. For Outpatient Procedures: - YOU MUST HAVE A RESPONSIBLE STOCK ROLLER TAKE YOU HOME. A BUZZSAW OPERATOR HELPER OR EXTERNAL AUDITOR CANNOT BE MADE A RESPONSIBLE STOCK ROLLER. - We recommend that a responsible person stays with you overnight to take care of you. - You cannot stay in a hotel alone after outpatient surgery. You will not be permitted to have your surgery, if you do not have someone to take care of you. Please be aware that emergency situations arise, which may delay or change your surgical time. If this happens, we will notify you as soon as possible and regret any inconvenience. If you already have an Advance Directive, please fax a copy to [phone] or email to for it to be added to your chart. If you do not have an Advance Directive, you can find the appropriate form and more information at [email or web address]. We recommend that you complete the Advance Directive form found on the website and bring it with you the day of your surgery. It can be witnessed and scanned into your chart that day. Martine Blake PA-C documented in this encounter [facility] 04-23-2025 History and physical note Images from the original note were not included. [facility] HISTORY AND PHYSICAL EXAMINATION SERVICE DATE: 04/23/2025 SERVICE TIME: 9:39 AM Recording using xiao qu wu you software for draft documentation of the visit was discussed with the patient/authorized sales representative publications; all questions welcomed and answered. Patient/authorized sales representative publications agreed to proceed. PRIMARY CARE PHYSICIAN: Leonora Davalos APRN.SALES AND MARKETING ASSISTANT Assessment Patient has the following medical conditions which may affect asya-operative course: 1. Type 2 diabetes mellitus with diabetic polyneuropathy, without long-term current use of insulin (HCC) (E11.42) - Most recent A1c 6.5% on 02/12; previously 7.2% in November. - Previously on Mounjaro, discontinued in anticipation of surgery; last dose approximately 3 weeks ago. - Restarted glipizide 2.5 mg. - Diabetic polyneuropathy present; previously trialed gabapentin but discontinued due to side effects. - Advised to avoid restarting Mounjaro prior to surgery. - Continue endocrinology follow-up. Hemoglobin A1C (%) Date Value 02/12/2025 6.5 11/12/2024 7.2 03/12/2020 6.4 07/06/2019 6.5 Hemoglobin A1C (POCT) (%) Date Value 04/17/2024 7.5 05/03/2023 8.6 2. Pure hypercholesterolemia (E78.00) - Not on rx, diet controlled. Cholesterol, Total (mg/dL) Date Value 11/12/2024 187 05/03/2023 223 04/14/2020 134 04/14/2020 134 HDL Cholesterol (mg/dL) Date Value 11/12/2024 41 05/03/2023 50 04/14/2020 48 04/14/2020 48 LDL Cholesterol, Calculated (mg/dL) Date Value 11/12/2024 121 05/03/2023 141 LDL (mg/dL) Date Value 06/07/2014 144 LDL Calculated (mg/dL) Date Value 04/14/2020 67 04/14/2020 67 Triglyceride (mg/dL) Date Value 11/12/2024 124 05/03/2023 162 04/14/2020 97 04/14/2020 97 3. Essential hypertension (I10) - Follows with PCP & cardiology. Last 3 Encounter BP Readings: Date: BP: 04/23/2025 142/74 04/07/2025 124/73 03/28/2025 130/72 4. Coronary artery disease involving [place] coronary artery of [place] heart without angina pectoris (I25.10) - Does have chronic dyspnea, denies any heart palpitations, edema, chest pain, shortness of breath, syncope, or dizziness. - Cardiac catheterization in 2017; no stents placed. - Followed by Dr. Hobbs at [facility]. 5. Chronic diastolic CHF (congestive heart failure) (HCC) (I50.32) 6. Dyspnea, unspecified type (R06.00) - Well controlled with diuretic therapy; patient reports dyspnea and lower extremity edema if diuretic is missed for more than 2 days. - Last echocardiogram in 2021; patient reports more recent echocardiogram 2 months ago at [facility]. - Will obtain records from Dr. Ballesteros. 7. Paroxysmal atrial fibrillation (HCC) (I48.0) 8. snf current use of anticoagulant (Z79.01) - On Eliquis and flecainide. -Managed by cardiology Dr. Hobbs. - No recent palpitations or irregular rhythms. - Discussed prior adverse reaction to antiemetics with flecainide; will review antiemetic options for perioperative use. 9. MARILIA on CPAP (G47.33) -Compliant with bipap, advised to bring DOS. -Follows with pulmonology at [place]. 10. Post-operative nausea and vomiting (R11.2) -Pt reports PONV with previous surgeries/procedures. 11. Nonalcoholic fatty liver disease without nonalcoholic steatohepatitis (LLAMAS) (K76.0) - Liver enzymes trending down. - Most recent liver biopsy on 09/23/2021 showed mild steatosis. - Managed by Dr. Esteban. CMP: Glucose 181 04/11/2025 BUN 15 04/11/2025 Creatinine 0.80 04/11/2025 Sodium 136 04/11/2025 Potassium 4.0 04/11/2025 Chloride 100 04/11/2025 CO2 20 04/11/2025 Protein, Total 8.0 04/11/2025 Albumin 4.0 04/11/2025 Calcium 10.4 04/11/2025 Alkaline Phosphatase 118 04/11/2025 Bilirubin, Total 0.5 04/11/2025 AST 45 04/11/2025 ALT 50 04/11/2025 12. History of colorectal cancer (Z85.048) - History of colorectal cancer. - History of left breast cancer, treated with chemotherapy and radiation in 1996. 13. History of left breast cancer (Z85.3) - History of colorectal cancer. - History of left breast cancer, treated with chemotherapy and radiation in 1996. 14. History of DVT (deep vein thrombosis) (Z86.718) - History of DVT; [place] filter in place. 15. Gastroesophageal reflux disease without esophagitis (K21.9) - Chronic GERD with persistent symptoms despite omeprazole, Carafate, and Pepcid. - Recent pulmonology evaluation noted erythematous throat and recommended GI follow-up. - Last upper endoscopy in 2022. 16. Postoperative hypothyroidism (E89.0) - S/p thyroidectomy 1972. - Managed by endocrinology; most recent labs in normal range. - On Synthroid. TSH Date Value 11/12/2024 2.380 mIU/L 05/03/2023 2.280 mIU/L 03/12/2020 0.561 uIU/mL 07/06/2019 0.176 uU/mL 17. Rheumatoid arthritis of other site, unspecified whether rheumatoid factor present (HCC) (M06.9) - Managed by rheumatology (Dr. Jacquie Lloyd) - Previously on Simponi, discontinued. Last dose December 10. - On Celebrex for pain management; to be discontinued one week prior to surgery. 18. Anxiety and depression (F41.9) - Anxiety present, particularly related to upcoming surgery; no current suicidal ideation or intent to harm others. 19. Obesity, Class III, BMI 40-49.9 (morbid obesity) (HCC) (E66.813) Body mass index is 48.11 kg/m . ANESTHESIA FINDINGS: Intubation History: No history of difficult intubation. No abnormal airway history Significant Anesthesia Considerations: potential postop nausea/vomiting potential slow emergence Airway History: No history of difficult airway No abnormal airway history Vincent Activity Status Index: METS: Walk indoors, such as around the house (1.75 METs) Do light work around the house, such as dusting or washing dishes (2.70 METs) Take care of self; that is eating, dressing, bathing, using the toilet (2.75 METs) Walk a block or two on level ground (2.75 METs) DASI Score: 9.95 Patient denies any chest pain or undue shortness of breath with the above physical activity. Clinical Frailty Scale: 4. Apparently vulnerable STOP-Bang Score: STOP-Bang Score: (+MARILIA) [id number] Score: Age: 65-74 Sex: female CHF history: No Hypertension history: Yes Stroke/TIA/thromboembolism history: No Vascular disease history: No Diabetes history: Yes [id number] Score: 4 I - PHYSICAL EVALUATION AIRWAY Patient intubated: No. Tracheostomy tube not present Mallampati: II. TM distance: >3 FB. Neck ROM: full ROM without neurological symptoms. Mouth opening: adequate. Short neck: no. Thick neck: no DENTAL Dental findings: teeth intact. Additional comments: +Caps. II - ANESTHESIA PLAN Beta [place] Monitoring Plan Post Procedure Analgesic Plan Prepared for Surgery: optimally prepared for surgery, pending [see comment]. -Reviewed EKG performed 03/18/2025. Surgeon ordered labs pending. -TE to Dr. Esteban (GI) regarding patient's uncontrolled reflux symptoms CONSULTS: Patient does not require consults for optimization at this time Planned Anesthetic: anesthesia choice The Following Tests/Procedures Have Been Initiated: No orders of the defined types were placed in this encounter. REASON FOR VISIT: Alexandra Bella is a 69 year old female who is scheduled for Procedure(s): LAPAROSCOPIC HAND ASSISTED COLECTOMY (Left) at the request of Dr. Marlon Cesar for consultation. My final recommendation will be communicated back to the requesting physician by way of shared medical record or letter. Subjective The patient has the following: COVID-19 Immunization Status This patient has no relevant Health Maintenance data. CHIEF COMPLAINT: Pre-op HPI: Alexandra Bella is a 69-year-old female presenting for a preoperative evaluation prior to a scheduled colectomy. Alexandra has a history of recurrent diverticulitis, with the most recent flare requiring hospitalization from March 17 to March 20. She reports ongoing symptoms, including nausea and abdominal pain, but notes that vomiting has ceased. She experiences frequent bowel movements with slimy stools and post-defecation spasms, necessitating the use of Lomotil, up to 2 times daily, to manage symptoms. She denies hematochezia. REVIEW OF SYSTEMS: General: No weight loss, malaise or fevers. Neurological: Negative for: dementia, headaches, impaired sensorium, peripheral neuropathy, seizures, TIA and strokes. Respiratory: Positive for: current cough (attributed to GERD), dyspnea, obstructive sleep apnea and CPAP/BiPAP compliant. Negative for: asthma, bronchitis, COPD, bronchodilator used daily for the last 3 months, home oxygen, orthopnea, pneumonia within 6 weeks, tobacco use and URI < 2 weeks. Cardiovascular: Denies dizziness or syncope Positive for: anticoagulation therapy, atrial fibrillation, CAD, DVT/PE, hyperlipidemia and hypertension Patient's last office visit The following tests and/or procedures were performed: echocardiogram. Negative for: abdominal aortic aneurysm, AICD/PPM, angina, chest pain, CHF, congenital heart defect, recent NE, murmur/valvular heart disease, PVD, open heart surgery and valve surgery. GI: Positive for: abdominal pain, diverticulitis, GERD, liver disease and nausea Negative for: GI bleed <30 days, vomiting and ETOH >2 drinks/day. : No history of kidney disease Negative for: on dialysis, dysuria, frequent urination, hematuria and urinary tract infection. Endocrine: Positive for: diabetes mellitus, diabetic neuropathy and hypothyroidism. Patient's diabetes mellitus is controlled by oral agents. Negative for: hyperthyroidism. Hematology: Positive for: chronic anti-coagulation/platelet meds. Patient is on anti-coagulation/platelet medication(s): DOAC. Negative for: anemia, bruises/bleeds easily, factor V Leiden, hemophilia, thrombocytopenia, von Willebrand disease and transfusion of at least 4 units within 72 hours prior to surgery. Oncology: +Breast & colorectal CA Negative for: CA metastasis, chemo within 30 days, disseminated cancer and radiotherapy within 90 days. Psych: Positive for: anxiety and depression. Negative for: ADD, ADHD, bipolar disorder, drug dependency and Marijuana Use. Musculoskeletal: Positive for: rheumatoid arthritis. Patient is using analgesics for RA. Skin: Negative for lesions, rash and itching. Implanted Devices: No implanted devices. PAST MEDICAL HISTORY Diagnosis Date Acute deep vein thrombosis (DVT) of popliteal vein of left lower extremity (HCC) Four DVT's last one 20 years ago- control- and after fracture Asymptomatic postmenopausal status (age-related) (natural) 03/2000 LMP 03/2000 CHF (congestive heart failure) (HCC) Colon cancer (HCC) 2018 Colorectal cancer (HCC) Endocarditis 2017 Essential hypertension 08/24/2018 Gastroesophageal reflux disease without esophagitis 08/24/2018 GERD (gastroesophageal reflux disease) Irritable bowel syndrome Irritable bowel Syndrome Kidney stones 2004 Left-sided chest wall pain 07/17/2016 Multiple gastric ulcers 2020 MARILIA (obstructive sleep apnea) 08/24/2018 Other hyperlipidemia 08/24/2018 Paroxysmal atrial fibrillation (HCC) Personal history of malignant neoplasm of breast 1996 1996 Breast cancer, clinical stage 1 infiltrating carcinoma left breast Phlebitis and thrombophlebitis of other deep vessels of lower extremities Phlebitis Phlebitis and thrombophlebitis of other deep vessels of lower extremities history of 3 DVTs Left Leg PMH - PAST MEDICAL HISTORY OF 09/1991 pap abnormal cells derived from serve dysplasia PMH - PAST MEDICAL HISTORY OF 11/1991 pap moderate - severe dysplasia Postoperative hypothyroidism 08/24/2018 Pre-diabetes Rheumatoid arthritis (HCC) 08/24/2018 Shingles Thyroid disease PAST SURGICAL HISTORY Procedure Laterality Date CARDIAC CATH 2016 CHOLECYSTECTOMY 2000 COLONOSCOPY 11/08/2011 Dr. Esteban-Random Bx-unremarkable. Sigmoid Bx-focal hyperplastic changes. COLONOSCOPY 03/31/2015 Dr. Esteban-evidence of large scar in the perianal area secondary to resection of SCC 2011. Random Bx's-unremarkable. COLONOSCOPY 04/28/2020 Dr. Esteban-bilious gastric fluid. Bile gastritis. Antrum Bx-unremarkable, HP negative. GEJ Bx-mild inflammation. COLONOSCOPY DIAGNOSTIC 11/01/2022 COLPOSCOPY CERVIX UPPER/ADJACENT VAGINA 12/1991 Colposcopy CONIZATION CERVIX W/WO D&C RPR ELTRD EXC 01/1992 CONE BX, focal atypia EGD 03/31/2015 Dr. Esteban-HH. D2-unremarkable. Stomach body Bx-mild reactive gastropathy, HP negative. Stomach polyps-fundic gland. EGD 12/29/2017 Dr. Esteban-small HH. Multiple gastric polyps-. Non-bleeding erosive gastropathy. Bilious gastric fluid. EGD 2019 EGD DIAGNOSTIC 11/01/2022 FIBROSCAN 03/31/2020 S3, F4 LIG/TRNSXJ FLP TUBE ABDL/VAG APPR UNI/BI history of Tubal ligation LIVER BIOPSY 02/21/2002 hepatic steatosis, moderate and diffuse. Mild portal fibrosis with chronic non-specific inflammation no evidence of cirrhosis. MASTEC PARTIAL W AXILL NODE REMOV 06/1997 left - had radiation and chemo MRI BREAST BIOPSY 1996 excisional Breast BX, BREAST CANCER, clinical stage1 infiltrating carcinoma left breast PAST SURGICAL HISTORY OF 07/2008 had "fatty tumor" removed from back PAST SURGICAL HISTORY OF 01/02/2012 excision perianal lesion-invasive moderately differentiated squamous cell CA PAST SURGICAL HISTORY OF 08/29/2018 Excision of 5 x 6 cm posterior back mass, PAST SURGICAL HISTORY OF Left scope knee PAST SURGICAL HISTORY OF Partial thyroidectomy PICC LINE 03/2025 placed & removed THYROIDECTOMY TOTAL/COMPLETE 1973 FAMILY HISTORY Problem Relation Age of Onset Hypertension Mother Coronary Artery Disease Father Kidney Disease Father Liver Cancer Brother Heart Brother Heart Brother No Known Problems Daughter Diabetes Son Breast Cancer Maternal Grandmother Breast Cancer Paternal Grandmother Cancer Paternal Grandfather bone cancer Prostate Cancer Paternal Grandfather Diabetes Other mat grt grdf Colon Cancer No Family History other (Blood Clot) No Family History Anesthesia Problems No Family History SOCIAL HISTORY[1] Prior to Admission medications as of 04/23/25 0951 Medication Sig Last Dose Taking glipiZIDE (GLUCOTROL XL) 2.5 mg 24 hr tablet Take 1 tablet by mouth once daily. Yes ONETOUCH ULTRA TEST test strip Use as directed to check glucose 1 time daily. E11.9, non-insulin dependent. Yes ONETOUCH ULTRASOFT LANCETS Use as directed to check glucose 1 times daily.E11.9, non-insulin dependent. Yes iv contrast (will be provided with radiology test) CT ABD/PEL -Inject, intravenously, once for 1 dose.No IV access, insert saline lock prior to the beginning of sedation, infusion, injection of imaging exam. Discontinue saline lock post exam. If Pt. has a central line or IVAD, may access for administration according to line specific nursing protocol. Once exam is complete flush line and de-access according to line specific nursing protocol in the CT contrast administration guidelines link. Yes enteric contrast (will be provided with radiology test) For CT ABD/PEL W IVCON Routine order Administer, As Directed One Time Only, via Oral, Rectal, both Oral and Rectal, Enteric Tube, Stoma or Indwelling Catheter, Enteric Contrast as designated per enteric contrast guidelines Yes neomycin 500 mg tablet Take 2 tablets by mouth as directed. Take 2 tablet at 6pm, 7pm, and 11pm the evening prior to surgery. Yes losartan (COZAAR) 50 mg tablet Take 50 mg by mouth once daily. Yes metoprolol tartrate, short acting, (LOPRESSOR) 25 mg tablet Take 25 mg by mouth once daily. 1/2 tab Yes furosemide (LASIX) 40 mg tablet Take 1 tablet by mouth once daily. Yes sucralfate (CARAFATE) 100 mg/mL suspension Take 10 mL by mouth two times a day. Take on empty stomach and avoid eating or drinking for 30 mins after taking. Yes levothyroxine (SYNTHROID) 200 mcg tablet Take one tablet Monday through Monday,and half a pill on Saturdays and none on Sundays. Patient taking differently: Take by mouth. Take one tablet Monday through Monday,and half a pill on Saturdays and none on Sundays. Yes Blood-Glucose Meter ([employer]Happy ULTRA2 METER) monitoring kit Use to test blood sugar daily, DX: E11.9, NIDDM Yes omeprazole (PRILOSEC) 40 mg capsule TAKE 1 CAPSULE BY MOUTH ONCE DAILY Yes losartan (COZAAR) 25 mg tablet Take 0.5 tablets by mouth once daily. Yes flecainide (TAMBOCOR) 100 mg tablet Take 1 tablet by mouth every 12 hours. Yes apixaban (ELIQUIS) 5 mg tab(s) Take 1 tablet by mouth twice daily. Yes potassium chloride (K-TAB) 10 mEq tablet Take 1 tablet by mouth once daily. Yes traMADol (ULTRAM) 50 mg tablet Take 1 tablet by mouth as needed for pain. Yes CPAP Yes celecoxib (CELEBREX) 200 mg capsule Take 1 capsule by mouth once daily. Yes tirzepatide (MOUNJARO) 5 mg/0.5 mL pen injector Inject 5 mg subcutaneously one time a week. Patient not taking: Reported on 04/23/2025 albuterol HFA (PROVENTIL HFA, VENTOLIN HFA) 90 mcg/actuation inhaler Inhale 2 puffs as instructed every 4 hours as needed for wheezing/shortness of breath. Patient not taking: Reported on 04/23/2025 golimumab (SIMPONI ARIA INTRAVENOUS) Inject intravenously every 8 weeks. 2mg/kg (242mg) Patient not taking: Reported on 04/23/2025 No medication comments found. ALLERGIES Allergen Reactions Adhesive Tape rash Avelox [Moxifloxaci* Heart race Biaxin [Clarithromy* Hives, GI Upset Eryc [Erythromycin] Swelling Metformin GI Upset Throwing up, Diarrhea Penicillins Quinolones Avelox Remicade [Inflixima* Shortness of Breath Spironolactone Intolerance Headaches Sutures Other: See Comments Suture do not dissolve Demerol [Meperidine* Other: See Comments Arm swelled up locally and turned red. Objective PHYSICAL EXAM: General: alert and oriented, healthy appearance and morbidly obese. Pertinent negatives noted - not distressed. Skin: normal color, no rash or lesions. HEENT: EOM intact, pupils equal round and pupils reactive to light. Pertinent negatives noted - no carotid bruit. Cardiovascular: regular rate and rhythm, normal S1 and S2, no rub, murmurs, or gallop. Respiratory: normal breath sounds, no wheezes or crackles. No chest wall deformity or tenderness. Abdomen: bowel sounds present and soft. Pertinent negatives noted - not tender. Extremities: Positive for edema (trace pedal edema). Pertinent negatives noted - no cellulitis and no abnormal pulses. Neurological: normal cognition and motor skills. Positive for abnormal gait. PAIN ASSESSMENT: Pain Pain Level: 4 Pain Location: Abdomen VITALS: BP 142/74 Pulse 102 Temp (Src) 97.7 (Temporal) Resp 16 Ht 5' 3" (1.60m) Wt 271 lb 9.7 oz (123.2kg) SpO2 96% LMP 03/11/1998 BMI 48.13 kg/(m^2). Diagnostic tests reviewed for today's visit: Lab Value Units Date High Low HB 13.0 g/dL 04/23/2025 15.5 11.5 HCT 39.6 % 04/23/2025 46.0 36.0 WBC 5.91 k/uL 04/23/2025 11.00 3.70 PLT 205 k/uL 04/23/2025 400 150 NA 136 mmol/L 04/11/2025 144 136 K 4.0 mmol/L 04/11/2025 5.1 3.7 GLUC 181 mg/dL 04/11/2025 99 74 BUN 15 mg/dL 04/11/2025 21 7 CREAT 0.80 mg/dL 04/11/2025 0.96 0.58 PTSEC 13.2 sec 03/18/2025 13.0 9.7 INR 1.2 no uni* 03/18/2025 1.3 0.9 APTT >139.0 sec 03/20/2025 32.4 23.0 ALT 50 U/L 04/11/2025 38 7 AST 45 U/L 04/11/2025 35 13 TBILI 0.5 mg/dL 04/11/2025 1.3 0.2 TSH 2.380 mIU/L 11/12/2024 4.200 0.270 Lab Value Units Date High Low HCGQT No results within date range. UHCG No results within date range. HCG, BODY* No results within date range. Lab Value Units Date High Low ABORHD No results within date range. ABSCREEN No results within date range. Hemoglobin A1C (%) Date Value 02/12/2025 6.5 11/12/2024 7.2 11/15/2023 7.3 03/12/2020 6.4 07/06/2019 6.5 Hemoglobin A1C (POCT) (%) Date Value 04/17/2024 7.5 05/03/2023 8.6 05/25/2022 8.9 Recent Results (from the past 8760 hours) ECG COMPLETE Collection Time: 03/18/25 4:41 PM Result Value Ventricular Rate 83 Atrial Rate 83 P-R Interval 190 QRS Duration 144 QT Interval 444 QTC Calculation (Bazett) 521 Calculated P [place] 58 Calculated R [place] 109 Calculated T [place] 19 Impression NORMAL SINUS RHYTHM RIGHT BUNDLE BRANCH BLOCK ABNORMAL ECG WHEN COMPARED WITH ECG OF 01-Mar-2021 16:24, INVERTED T WAVES HAVE REPLACED NONSPECIFIC T WAVE ABNORMALITY IN INFERIOR LEADS Confirmed by TONJA OVALLE MD ([id number]) on 03/19/2025 4:18:35 PM No results found for this or any previous visit (from the past 88316 hours). Instructions Given to Patient: Instructions located in the after visit summary. Patient given verbal and written preop instructions and voices comprehension and compliance. SIGNATURE: Martine Blake PA-C PATIENT NAME: Alexandra Bella DATE: April 23, 2025 TIME: 9:40 AM PAGER/CONTACT #: [1] Social History Tobacco Use Smoking status: Former Current packs/day: 0.00 Average packs/day: 1 pack/day for 15.0 years (15.0 ttl pk-yrs) Types: Cigarettes Start date: 09/11/1974 Quit date: 09/11/1989 Years since quittin.6 Passive exposure: Never Smokeless tobacco: Never Vaping Use Vaping status: Never Used Substance Use Topics Alcohol use: No Comment: occasional, rare Drug use: Never [facility] 04-23-2025 History and physical note Images from the original note were not included. [facility] HISTORY AND PHYSICAL EXAMINATION SERVICE DATE: 04/23/2025 SERVICE TIME: 9:39 AM Recording using xiao qu wu you software for draft documentation of the visit was discussed with the patient/authorized sales representative publications; all questions welcomed and answered. Patient/authorized sales representative publications agreed to proceed. PRIMARY CARE PHYSICIAN: Leonora Davalos APRN.SALES AND MARKETING ASSISTANT Assessment Patient has the following medical conditions which may affect asya-operative course: 1. Type 2 diabetes mellitus with diabetic polyneuropathy, without long-term current use of insulin (HCC) (E11.42) - Most recent A1c 6.5% on 02/12; previously 7.2% in November. - Previously on Mounjaro, discontinued in anticipation of surgery; last dose approximately 3 weeks ago. - Restarted glipizide 2.5 mg. - Diabetic polyneuropathy present; previously trialed gabapentin but discontinued due to side effects. - Advised to avoid restarting Mounjaro prior to surgery. - Continue endocrinology follow-up. Hemoglobin A1C (%) Date Value 02/12/2025 6.5 11/12/2024 7.2 03/12/2020 6.4 07/06/2019 6.5 Hemoglobin A1C (POCT) (%) Date Value 04/17/2024 7.5 05/03/2023 8.6 2. Pure hypercholesterolemia (E78.00) - Not on rx, diet controlled. Cholesterol, Total (mg/dL) Date Value 11/12/2024 187 05/03/2023 223 04/14/2020 134 04/14/2020 134 HDL Cholesterol (mg/dL) Date Value 11/12/2024 41 05/03/2023 50 04/14/2020 48 04/14/2020 48 LDL Cholesterol, Calculated (mg/dL) Date Value 11/12/2024 121 05/03/2023 141 LDL (mg/dL) Date Value 06/07/2014 144 LDL Calculated (mg/dL) Date Value 04/14/2020 67 04/14/2020 67 Triglyceride (mg/dL) Date Value 11/12/2024 124 05/03/2023 162 04/14/2020 97 04/14/2020 97 3. Essential hypertension (I10) - Follows with PCP & cardiology. Last 3 Encounter BP Readings: Date: BP: 04/23/2025 142/74 04/07/2025 124/73 03/28/2025 130/72 4. Coronary artery disease involving [place] coronary artery of [place] heart without angina pectoris (I25.10) - Does have chronic dyspnea, denies any heart palpitations, edema, chest pain, shortness of breath, syncope, or dizziness. - Cardiac catheterization in 2017; no stents placed. - Followed by Dr. Hobbs at [facility]. 5. Chronic diastolic CHF (congestive heart failure) (HCC) (I50.32) 6. Dyspnea, unspecified type (R06.00) - Well controlled with diuretic therapy; patient reports dyspnea and lower extremity edema if diuretic is missed for more than 2 days. - Last echocardiogram in 2021; patient reports more recent echocardiogram 2 months ago at [facility]. - Will obtain records from Dr. Ballesteros. 7. Paroxysmal atrial fibrillation (HCC) (I48.0) 8. snf current use of anticoagulant (Z79.01) - On Eliquis and flecainide. -Managed by cardiology Dr. Hobbs. - No recent palpitations or irregular rhythms. - Discussed prior adverse reaction to antiemetics with flecainide; will review antiemetic options for perioperative use. 9. MARILIA on CPAP (G47.33) -Compliant with bipap, advised to bring DOS. -Follows with pulmonology at [place]. 10. Post-operative nausea and vomiting (R11.2) -Pt reports PONV with previous surgeries/procedures. 11. Nonalcoholic fatty liver disease without nonalcoholic steatohepatitis (LLAMAS) (K76.0) - Liver enzymes trending down. - Most recent liver biopsy on 09/23/2021 showed mild steatosis. - Managed by Dr. Esteban. CMP: Glucose 181 04/11/2025 BUN 15 04/11/2025 Creatinine 0.80 04/11/2025 Sodium 136 04/11/2025 Potassium 4.0 04/11/2025 Chloride 100 04/11/2025 CO2 20 04/11/2025 Protein, Total 8.0 04/11/2025 Albumin 4.0 04/11/2025 Calcium 10.4 04/11/2025 Alkaline Phosphatase 118 04/11/2025 Bilirubin, Total 0.5 04/11/2025 AST 45 04/11/2025 ALT 50 04/11/2025 12. History of colorectal cancer (Z85.048) - History of colorectal cancer. - History of left breast cancer, treated with chemotherapy and radiation in 1996. 13. History of left breast cancer (Z85.3) - History of colorectal cancer. - History of left breast cancer, treated with chemotherapy and radiation in 1996. 14. History of DVT (deep vein thrombosis) (Z86.718) - History of DVT; [place] filter in place. 15. Gastroesophageal reflux disease without esophagitis (K21.9) - Chronic GERD with persistent symptoms despite omeprazole, Carafate, and Pepcid. - Recent pulmonology evaluation noted erythematous throat and recommended GI follow-up. - Last upper endoscopy in 2022. 16. Postoperative hypothyroidism (E89.0) - S/p thyroidectomy 1972. - Managed by endocrinology; most recent labs in normal range. - On Synthroid. TSH Date Value 11/12/2024 2.380 mIU/L 05/03/2023 2.280 mIU/L 03/12/2020 0.561 uIU/mL 07/06/2019 0.176 uU/mL 17. Rheumatoid arthritis of other site, unspecified whether rheumatoid factor present (HCC) (M06.9) - Managed by rheumatology (Dr. Jacquie Lloyd) - Previously on Simponi, discontinued. Last dose December 10. - On Celebrex for pain management; to be discontinued one week prior to surgery. 18. Anxiety and depression (F41.9) - Anxiety present, particularly related to upcoming surgery; no current suicidal ideation or intent to harm others. 19. Obesity, Class III, BMI 40-49.9 (morbid obesity) (HCC) (E66.813) Body mass index is 48.11 kg/m . ANESTHESIA FINDINGS: Intubation History: No history of difficult intubation. No abnormal airway history Significant Anesthesia Considerations: potential postop nausea/vomiting potential slow emergence Airway History: No history of difficult airway No abnormal airway history Vincent Activity Status Index: METS: Walk indoors, such as around the house (1.75 METs) Do light work around the house, such as dusting or washing dishes (2.70 METs) Take care of self; that is eating, dressing, bathing, using the toilet (2.75 METs) Walk a block or two on level ground (2.75 METs) DASI Score: 9.95 Patient denies any chest pain or undue shortness of breath with the above physical activity. Clinical Frailty Scale: 4. Apparently vulnerable STOP-Bang Score: STOP-Bang Score: (+MARILIA) [id number] Score: Age: 65-74 Sex: female CHF history: No Hypertension history: Yes Stroke/TIA/thromboembolism history: No Vascular disease history: No Diabetes history: Yes [id number] Score: 4 I - PHYSICAL EVALUATION AIRWAY Patient intubated: No. Tracheostomy tube not present Mallampati: II. TM distance: >3 FB. Neck ROM: full ROM without neurological symptoms. Mouth opening: adequate. Short neck: no. Thick neck: no DENTAL Dental findings: teeth intact. Additional comments: +Caps. II - ANESTHESIA PLAN Beta [place] Monitoring Plan Post Procedure Analgesic Plan Prepared for Surgery: optimally prepared for surgery, pending [see comment]. -Reviewed EKG performed 03/18/2025. Surgeon ordered labs pending. -TE to Dr. Esteban (GI) regarding patient's uncontrolled reflux symptoms CONSULTS: Patient does not require consults for optimization at this time Planned Anesthetic: anesthesia choice The Following Tests/Procedures Have Been Initiated: No orders of the defined types were placed in this encounter. REASON FOR VISIT: Alexandra Bella is a 69 year old female who is scheduled for Procedure(s): LAPAROSCOPIC HAND ASSISTED COLECTOMY (Left) at the request of Dr. Marlon Cesar for consultation. My final recommendation will be communicated back to the requesting physician by way of shared medical record or letter. Subjective The patient has the following: COVID-19 Immunization Status This patient has no relevant Health Maintenance data. CHIEF COMPLAINT: Pre-op HPI: Alexandra Bella is a 69-year-old female presenting for a preoperative evaluation prior to a scheduled colectomy. Alexandra has a history of recurrent diverticulitis, with the most recent flare requiring hospitalization from March 17 to March 20. She reports ongoing symptoms, including nausea and abdominal pain, but notes that vomiting has ceased. She experiences frequent bowel movements with slimy stools and post-defecation spasms, necessitating the use of Lomotil, up to 2 times daily, to manage symptoms. She denies hematochezia. REVIEW OF SYSTEMS: General: No weight loss, malaise or fevers. Neurological: Negative for: dementia, headaches, impaired sensorium, peripheral neuropathy, seizures, TIA and strokes. Respiratory: Positive for: current cough (attributed to GERD), dyspnea, obstructive sleep apnea and CPAP/BiPAP compliant. Negative for: asthma, bronchitis, COPD, bronchodilator used daily for the last 3 months, home oxygen, orthopnea, pneumonia within 6 weeks, tobacco use and URI < 2 weeks. Cardiovascular: Denies dizziness or syncope Positive for: anticoagulation therapy, atrial fibrillation, CAD, DVT/PE, hyperlipidemia and hypertension Patient's last office visit The following tests and/or procedures were performed: echocardiogram. Negative for: abdominal aortic aneurysm, AICD/PPM, angina, chest pain, CHF, congenital heart defect, recent NE, murmur/valvular heart disease, PVD, open heart surgery and valve surgery. GI: Positive for: abdominal pain, diverticulitis, GERD, liver disease and nausea Negative for: GI bleed <30 days, vomiting and ETOH >2 drinks/day. : No history of kidney disease Negative for: on dialysis, dysuria, frequent urination, hematuria and urinary tract infection. Endocrine: Positive for: diabetes mellitus, diabetic neuropathy and hypothyroidism. Patient's diabetes mellitus is controlled by oral agents. Negative for: hyperthyroidism. Hematology: Positive for: chronic anti-coagulation/platelet meds. Patient is on anti-coagulation/platelet medication(s): DOAC. Negative for: anemia, bruises/bleeds easily, factor V Leiden, hemophilia, thrombocytopenia, von Willebrand disease and transfusion of at least 4 units within 72 hours prior to surgery. Oncology: +Breast & colorectal CA Negative for: CA metastasis, chemo within 30 days, disseminated cancer and radiotherapy within 90 days. Psych: Positive for: anxiety and depression. Negative for: ADD, ADHD, bipolar disorder, drug dependency and Marijuana Use. Musculoskeletal: Positive for: rheumatoid arthritis. Patient is using analgesics for RA. Skin: Negative for lesions, rash and itching. Implanted Devices: No implanted devices. PAST MEDICAL HISTORY Diagnosis Date Acute deep vein thrombosis (DVT) of popliteal vein of left lower extremity (HCC) Four DVT's last one 20 years ago- control- and after fracture Asymptomatic postmenopausal status (age-related) (natural) 03/2000 LMP 03/2000 CHF (congestive heart failure) (HCC) Colon cancer (HCC) 2018 Colorectal cancer (HCC) Endocarditis 2017 Essential hypertension 08/24/2018 Gastroesophageal reflux disease without esophagitis 08/24/2018 GERD (gastroesophageal reflux disease) Irritable bowel syndrome Irritable bowel Syndrome Kidney stones 2004 Left-sided chest wall pain 07/17/2016 Multiple gastric ulcers 2020 MARILIA (obstructive sleep apnea) 08/24/2018 Other hyperlipidemia 08/24/2018 Paroxysmal atrial fibrillation (HCC) Personal history of malignant neoplasm of breast 1996 1996 Breast cancer, clinical stage 1 infiltrating carcinoma left breast Phlebitis and thrombophlebitis of other deep vessels of lower extremities Phlebitis Phlebitis and thrombophlebitis of other deep vessels of lower extremities history of 3 DVTs Left Leg PMH - PAST MEDICAL HISTORY OF 09/1991 pap abnormal cells derived from serve dysplasia PMH - PAST MEDICAL HISTORY OF 11/1991 pap moderate - severe dysplasia Postoperative hypothyroidism 08/24/2018 Pre-diabetes Rheumatoid arthritis (HCC) 08/24/2018 Shingles Thyroid disease PAST SURGICAL HISTORY Procedure Laterality Date CARDIAC CATH 2016 CHOLECYSTECTOMY 2000 COLONOSCOPY 11/08/2011 Dr. Esteban-Random Bx-unremarkable. Sigmoid Bx-focal hyperplastic changes. COLONOSCOPY 03/31/2015 Dr. Esteban-evidence of large scar in the perianal area secondary to resection of SCC 2011. Random Bx's-unremarkable. COLONOSCOPY 04/28/2020 Dr. Esteban-bilious gastric fluid. Bile gastritis. Antrum Bx-unremarkable, HP negative. GEJ Bx-mild inflammation. COLONOSCOPY DIAGNOSTIC 11/01/2022 COLPOSCOPY CERVIX UPPER/ADJACENT VAGINA 12/1991 Colposcopy CONIZATION CERVIX W/WO D&C RPR ELTRD EXC 01/1992 CONE BX, focal atypia EGD 03/31/2015 Dr. Esteban-HH. D2-unremarkable. Stomach body Bx-mild reactive gastropathy, HP negative. Stomach polyps-fundic gland. EGD 12/29/2017 Dr. Esteban-small HH. Multiple gastric polyps-. Non-bleeding erosive gastropathy. Bilious gastric fluid. EGD 2019 EGD DIAGNOSTIC 11/01/2022 FIBROSCAN 03/31/2020 S3, F4 LIG/TRNSXJ FLP TUBE ABDL/VAG APPR UNI/BI history of Tubal ligation LIVER BIOPSY 02/21/2002 hepatic steatosis, moderate and diffuse. Mild portal fibrosis with chronic non-specific inflammation no evidence of cirrhosis. MASTEC PARTIAL W AXILL NODE REMOV 06/1997 left - had radiation and chemo MRI BREAST BIOPSY 1996 excisional Breast BX, BREAST CANCER, clinical stage1 infiltrating carcinoma left breast PAST SURGICAL HISTORY OF 07/2008 had "fatty tumor" removed from back PAST SURGICAL HISTORY OF 01/02/2012 excision perianal lesion-invasive moderately differentiated squamous cell CA PAST SURGICAL HISTORY OF 08/29/2018 Excision of 5 x 6 cm posterior back mass, PAST SURGICAL HISTORY OF Left scope knee PAST SURGICAL HISTORY OF Partial thyroidectomy PICC LINE 03/2025 placed & removed THYROIDECTOMY TOTAL/COMPLETE 1973 FAMILY HISTORY Problem Relation Age of Onset Hypertension Mother Coronary Artery Disease Father Kidney Disease Father Liver Cancer Brother Heart Brother Heart Brother No Known Problems Daughter Diabetes Son Breast Cancer Maternal Grandmother Breast Cancer Paternal Grandmother Cancer Paternal Grandfather bone cancer Prostate Cancer Paternal Grandfather Diabetes Other mat grt grdf Colon Cancer No Family History other (Blood Clot) No Family History Anesthesia Problems No Family History SOCIAL HISTORY[1] Prior to Admission medications as of 04/23/25 0951 Medication Sig Last Dose Taking glipiZIDE (GLUCOTROL XL) 2.5 mg 24 hr tablet Take 1 tablet by mouth once daily. Yes ONETOUCH ULTRA TEST test strip Use as directed to check glucose 1 time daily. E11.9, non-insulin dependent. Yes ONETOUCH ULTRASOFT LANCETS Use as directed to check glucose 1 times daily.E11.9, non-insulin dependent. Yes iv contrast (will be provided with radiology test) CT ABD/PEL -Inject, intravenously, once for 1 dose.No IV access, insert saline lock prior to the beginning of sedation, infusion, injection of imaging exam. Discontinue saline lock post exam. If Pt. has a central line or IVAD, may access for administration according to line specific nursing protocol. Once exam is complete flush line and de-access according to line specific nursing protocol in the CT contrast administration guidelines link. Yes enteric contrast (will be provided with radiology test) For CT ABD/PEL W IVCON Routine order Administer, As Directed One Time Only, via Oral, Rectal, both Oral and Rectal, Enteric Tube, Stoma or Indwelling Catheter, Enteric Contrast as designated per enteric contrast guidelines Yes neomycin 500 mg tablet Take 2 tablets by mouth as directed. Take 2 tablet at 6pm, 7pm, and 11pm the evening prior to surgery. Yes losartan (COZAAR) 50 mg tablet Take 50 mg by mouth once daily. Yes metoprolol tartrate, short acting, (LOPRESSOR) 25 mg tablet Take 25 mg by mouth once daily. 1/2 tab Yes furosemide (LASIX) 40 mg tablet Take 1 tablet by mouth once daily. Yes sucralfate (CARAFATE) 100 mg/mL suspension Take 10 mL by mouth two times a day. Take on empty stomach and avoid eating or drinking for 30 mins after taking. Yes levothyroxine (SYNTHROID) 200 mcg tablet Take one tablet Monday through Monday,and half a pill on Saturdays and none on Sundays. Patient taking differently: Take by mouth. Take one tablet Monday through Monday,and half a pill on Saturdays and none on Sundays. Yes Blood-Glucose Meter ([employer]CH ULTRA2 METER) monitoring kit Use to test blood sugar daily, DX: E11.9, NIDDM Yes omeprazole (PRILOSEC) 40 mg capsule TAKE 1 CAPSULE BY MOUTH ONCE DAILY Yes losartan (COZAAR) 25 mg tablet Take 0.5 tablets by mouth once daily. Yes flecainide (TAMBOCOR) 100 mg tablet Take 1 tablet by mouth every 12 hours. Yes apixaban (ELIQUIS) 5 mg tab(s) Take 1 tablet by mouth twice daily. Yes potassium chloride (K-TAB) 10 mEq tablet Take 1 tablet by mouth once daily. Yes traMADol (ULTRAM) 50 mg tablet Take 1 tablet by mouth as needed for pain. Yes CPAP Yes celecoxib (CELEBREX) 200 mg capsule Take 1 capsule by mouth once daily. Yes tirzepatide (MOUNJARO) 5 mg/0.5 mL pen injector Inject 5 mg subcutaneously one time a week. Patient not taking: Reported on 04/23/2025 albuterol HFA (PROVENTIL HFA, VENTOLIN HFA) 90 mcg/actuation inhaler Inhale 2 puffs as instructed every 4 hours as needed for wheezing/shortness of breath. Patient not taking: Reported on 04/23/2025 golimumab (SIMPONI ARIA INTRAVENOUS) Inject intravenously every 8 weeks. 2mg/kg (242mg) Patient not taking: Reported on 04/23/2025 No medication comments found. ALLERGIES Allergen Reactions Adhesive Tape rash Avelox [Moxifloxaci* Heart race Biaxin [Clarithromy* Hives, GI Upset Eryc [Erythromycin] Swelling Metformin GI Upset Throwing up, Diarrhea Penicillins Quinolones Avelox Remicade [Inflixima* Shortness of Breath Spironolactone Intolerance Headaches Sutures Other: See Comments Suture do not dissolve Demerol [Meperidine* Other: See Comments Arm swelled up locally and turned red. Objective PHYSICAL EXAM: General: alert and oriented, healthy appearance and morbidly obese. Pertinent negatives noted - not distressed. Skin: normal color, no rash or lesions. HEENT: EOM intact, pupils equal round and pupils reactive to light. Pertinent negatives noted - no carotid bruit. Cardiovascular: regular rate and rhythm, normal S1 and S2, no rub, murmurs, or gallop. Respiratory: normal breath sounds, no wheezes or crackles. No chest wall deformity or tenderness. Abdomen: bowel sounds present and soft. Pertinent negatives noted - not tender. Extremities: Positive for edema (trace pedal edema). Pertinent negatives noted - no cellulitis and no abnormal pulses. Neurological: normal cognition and motor skills. Positive for abnormal gait. PAIN ASSESSMENT: Pain Pain Level: 4 Pain Location: Abdomen VITALS: BP 142/74 Pulse 102 Temp (Src) 97.7 (Temporal) Resp 16 Ht 5' 3" (1.60m) Wt 271 lb 9.7 oz (123.2kg) SpO2 96% LMP 03/11/1998 BMI 48.13 kg/(m^2). Diagnostic tests reviewed for today's visit: Lab Value Units Date High Low HB 13.0 g/dL 04/23/2025 15.5 11.5 HCT 39.6 % 04/23/2025 46.0 36.0 WBC 5.91 k/uL 04/23/2025 11.00 3.70 PLT 205 k/uL 04/23/2025 400 150 NA 136 mmol/L 04/11/2025 144 136 K 4.0 mmol/L 04/11/2025 5.1 3.7 GLUC 181 mg/dL 04/11/2025 99 74 BUN 15 mg/dL 04/11/2025 21 7 CREAT 0.80 mg/dL 04/11/2025 0.96 0.58 PTSEC 13.2 sec 03/18/2025 13.0 9.7 INR 1.2 no uni* 03/18/2025 1.3 0.9 APTT >139.0 sec 03/20/2025 32.4 23.0 ALT 50 U/L 04/11/2025 38 7 AST 45 U/L 04/11/2025 35 13 TBILI 0.5 mg/dL 04/11/2025 1.3 0.2 TSH 2.380 mIU/L 11/12/2024 4.200 0.270 Lab Value Units Date High Low HCGQT No results within date range. UHCG No results within date range. HCG, BODY* No results within date range. Lab Value Units Date High Low ABORHD No results within date range. ABSCREEN No results within date range. Hemoglobin A1C (%) Date Value 02/12/2025 6.5 11/12/2024 7.2 11/15/2023 7.3 03/12/2020 6.4 07/06/2019 6.5 Hemoglobin A1C (POCT) (%) Date Value 04/17/2024 7.5 05/03/2023 8.6 05/25/2022 8.9 Recent Results (from the past 8760 hours) ECG COMPLETE Collection Time: 03/18/25 4:41 PM Result Value Ventricular Rate 83 Atrial Rate 83 P-R Interval 190 QRS Duration 144 QT Interval 444 QTC Calculation (Bazett) 521 Calculated P [place] 58 Calculated R [place] 109 Calculated T [place] 19 Impression NORMAL SINUS RHYTHM RIGHT BUNDLE BRANCH BLOCK ABNORMAL ECG WHEN COMPARED WITH ECG OF 01-Mar-2021 16:24, INVERTED T WAVES HAVE REPLACED NONSPECIFIC T WAVE ABNORMALITY IN INFERIOR LEADS Confirmed by TONJA OVALLE MD ([id number]) on 03/19/2025 4:18:35 PM No results found for this or any previous visit (from the past 51320 hours). Instructions Given to Patient: Instructions located in the after visit summary. Patient given verbal and written preop instructions and voices comprehension and compliance. SIGNATURE: Martine Blake PA-C PATIENT NAME: Alexandra Bella DATE: April 23, 2025 TIME: 9:40 AM PAGER/CONTACT #: [1] Social History Tobacco Use Smoking status: Former Current packs/day: 0.00 Average packs/day: 1 pack/day for 15.0 years (15.0 ttl pk-yrs) Types: Cigarettes Start date: 09/11/1974 Quit date: 09/11/1989 Years since quittin.6 Passive exposure: Never Smokeless tobacco: Never Vaping Use Vaping status: Never Used Substance Use Topics Alcohol use: No Comment: occasional, rare Drug use: Never documented in this encounter [facility] 04-22-2025 Evaluation note Diagnosis Onset Date Resolution Cough acute April 22, 025 8:19am GERD (gastroesophageal reflux disease) acute April 22 8:19am Dyspnea on exertion chronic Augus t 2024 8:19am Obesity chronic April 22, 025 8:19am Sleep apnea chronic April 22, 2025 8:19am Chronic diastolic (congestive) heart failure chronic Octob er 2024 8:58am Dyspnea on exertion chronic Octob er 2024 8:58am Morbid obesity with BMI of 45.0-49.9, adult chronic June 27, 2025 8:58am Paroxysmal atrial fibrillation chronic June 27, 2025 8:58am Pure hypercholesterolemia chronic June 27, 2025 8:58am [facility] Work Phone: [phone] 117-852308-01-2025 Telephone encounter Note* Telephone Encounter - Dariela Kothari RN - 04/11/2025 11:36 AM EDT Call placed to patient. Based upon Anesthesia Guidelines, surgery will need to be moved out a few weeks due to medication Simponi. She will not take her next dose (due 05/05) in preparation for surgery. She will await call about anticoagulation pending reply from her ship scaler. Patient acknowledges and understands. Message sent to surgery schedulers to make adjustments. [facility]08-01-2025 Miscellaneous Notes* Telephone Encounter - Dariela Kothari RN - 04/11/2025 11:36 AM EDT Call placed to patient. Based upon Anesthesia Guidelines, surgery will need to be moved out a few weeks due to medication Simponi. She will not take her next dose (due 05/05) in preparation for surgery. She will await call about anticoagulation pending reply from her ship scaler. Patient acknowledges and understands. Message sent to surgery schedulers to make adjustments. [facility] [place] Telephone encounter Note * Telephone Encounter - Marissa Tim RN - 04/10/2025 11:09 AM EDT Patient read DEUS message on 04/08/25 at 1547. Closed [facility]07-31-2025 Miscellaneous Notes* Telephone Encounter - Marissa Tim RN - 04/10/2025 11:09 AM EDT Patient read Mychart message on 04/08/25 at 1547. Closed * Telephone Encounter - Neema Berman MA - 04/08/2025 2:13 PM EDT AppHerohart message sent with alert if not read. Keep open Eliceo wants glucose readings in 7-10 days. 04/16/25 we should receive readings. If not we will call/message patient. * Telephone Encounter - Eliceo Ambriz APRN.SERVANDO - 04/08/2025 9:25 AM EDT Lower Mounjaro back to 5 mg weekly. Stop 1 wk prior to surgery. Resume 1 wk after surgery. Monitor BG once daily at variable times of day. Fasting, before meals or bedtime. Send these to me in 7-10 days. We may need to figure out something else for glucose control since we are lowering Mounjaro. Thank you * Telephone Encounter - Corrie Alejandro RN - 04/07/2025 1:14 PM EDT Eliceo please review upon return to the office on Monday04/08/25: Patient called, state's she is scheduled for surgery on 05/01/25 for S/P Diverticulitis (inpatient 03/17/25). State's she was told to ask when she should stop the Mounjaro before surgery. Discussed that this is stopped 1-2 weeks before surgery (better 2 weeks before). State's since increasing to 7.5 mg she has had a lot of GI side effects of Nausea, Vomiting, Acid Reflux, No Appetite, Overall Feeling Sick. She has been taking this dose for 2 months. She has lost a total of 31 lbs since starting Mounjaro. She is happy with the weight loss and the improvement of her glucose readings. But, she is agreeable that she may need to either discontinue altogether or go back to 5 mg dose. She felt much better on this dose. She is expected to be in the hospital for @5days following surgery and will have a PICC line for antibiotics following her surgery to go home. She is currently testing once daily. Readings are running a little higher than usual (190's) at times, but isn't really eating due to GI issues. Discussed that the large amount of stress on her body,infection, pain etc. Is likely the culprit. Discussed that she should test her glucose consistentlyand should test 1-2 times daily. Will update testing supplies for 2 times daily. What should patient do for medication for now until surgery? Will she be able to resume Mounjaro after surgery? How long after? At what dose? When do you want glucose readings sent in? Etc. [facility] Telephone encounter Note * Telephone Encounter - Meño Manning - 04/09/2025 8:48 AM EDT Patient has more request. Please contact them. Pt needs surgery delayed a week per Renee. CB#: [phone] [facility]07-30-2025 Miscellaneous Notes* Telephone Encounter - Meño Manning - 04/09/2025 8:48 AM EDT Patient has more request. Please contact them. Pt needs surgery delayed a week per Renee. CB#: [phone] * Telephone Encounter - Renee Echeverria APRN.CNP - 04/08/2025 2:58 PM EDT Brittney Gaspar saw this mutual patient in [facility] on 04/07/25 Alexandra Bella 1955 [id number] is scheduled for LAPAROSCOPIC HAND ASSISTED COLECTOMY with Dr. Marlon Cesar on 05/01/25. This patient is taking Simponi (IV every 8 weeks) - next dose 05/05 (after procedure). Per guidelines, surgery should be scheduled week 9 - which is the following week (first week of May). Per Rafi Garrison - Anesthesiologist, we should follow this guideline and delay surgery until first weekof May. Once received, I can notify patient. We are currently working on anticoagulation instructions and pending reply from her Bull Fiddle Player - Dr. Hobbs. Rneee Echeverria APRN.CNP Pre-Anesthesia documented [facility] Telephone encounter Note * Telephone Encounter - Rosy Esteban MD - 04/08/2025 4:[address]-scan AP 03/17/2025: Inflammatory changes surrounding a 2 cm outpouching in the mid sigmoid colon (2:99) suggestive of diverticulitis. It is difficult to assess for presence of intramural abscess due to lack of IV contrast. Trace free fluid and fat stranding in the left pelvis. Blood tests 03/24/2025: CBD normal Mild elevation of ALT/AST Per patient: I keep throwing up and still have a lot of nausea some diarrhea. Recommend: CBCD, CMP, amylase & Lipase, CRP CT-scan abd/pelvis with IV/oral contrast in 1 week if still symptomatic. Rosy Esteban MD [facility]07-29-2025 Miscellaneous Notes* Telephone Encounter - Rosy Esteban MD - 04/08/2025 4:[address]-scan AP 03/17/2025: Inflammatory changes surrounding a 2 cm outpouching in the mid sigmoid colon (2:99) suggestive of diverticulitis. It is difficult to assess for presence of intramural abscess due to lack of IV contrast. Trace free fluid and fat stranding in the left pelvis. Blood tests 03/24/2025: CBD normal Mild elevation of ALT/AST Per patient: I keep throwing up and still have a lot of nausea some diarrhea. Recommend: CBCD, CMP, amylase & Lipase, CRP CT-scan abd/pelvis with IV/oral contrast in 1 week if still symptomatic. Rosy Esteban MD * Telephone Encounter - Hailey Ocampo RN - 04/07/2025 9:[address] Esteban, please see pt's update below and advise. Thank you, Hailey Ocampo RN * Telephone Encounter - Rosy Esteban MD - 04/02/2025 8:07 AM EDT Hailey: Please call her and find out about her symptoms and the course oh her treatment and work-up done thus far. Did she reach out to her PCP? Rosy Esteban MD * Telephone Encounter - Jane Martinez RN - 03/26/2025 8:20 AM EDT Patient complaining of increased pain to R lower back into groin area - 02/18 and having nausea vomiting and chills this am. Patient is afebrile and vitals signs WNL. She complains of extreme fatigue and just not feeling well in general. Please advise. Jane Win documented [facility] Telephone encounter Note * Telephone Encounter - Renee Echeverria APRN.CNP - 04/08/2025 2:58 PM EDT Brittney Gaspar saw this mutual patient in [facility] on 04/07/25 Alexandra Bella 1955 [id number] is scheduled for LAPAROSCOPIC HAND ASSISTED COLECTOMY with Dr. Marlon Cesar on 05/01/25. This patient is taking Simponi (IV every 8 weeks) - next dose 05/05 (after procedure). Per guidelines, surgery should be scheduled week 9 - which is the following week (first week of May). Per Rafi Garrison - Anesthesiologist, we should follow this guideline and delay surgery until first weekof May. Once received, I can notify patient. We are currently working on anticoagulation instructions and pending reply from her Bull Fiddle Player - Dr. Hobbs. Renee Echeverria APRN.CNP Pre-Anesthesia [facility]07-29-2025 Telephone encounter Note* Telephone Encounter - Neema Berman MA - 04/08/2025 2:13 PM EDT DEUS message sent with alert if not read. Keep open Eliceo wants glucose readings in 7-10 days. 04/16/25 we should receive readings. If not we will call/message patient. [facility]07-29-2025 Telephone encounter Note* Telephone Encounter - Christine Lobo LPN - 04/08/2025 1:12 PM EDT Call placed to office re need for returned anticoagulation letter for upcoming surgery. Spoke with Ximena at office. Refaxed-fax confirmation x 2 received. [facility]07-29-2025 Miscellaneous Notes* Telephone Encounter - Christine Lobo LPN - 04/08/2025 1:12 PM EDT Call placed to office re need for returned anticoagulation letter for upcoming surgery. Spoke with Ximena at office. Refaxed-fax confirmation x 2 received. documented [facility] Telephone encounter Note * Telephone Encounter - Eliceo Ambriz APRN.CNP - 04/08/2025 9:25 AM EDT Lower Mounjaro back to 5 mg weekly. Stop 1 wk prior to surgery. Resume 1 wk after surgery. Monitor BG once daily at variable times of day. Fasting, before meals or bedtime. Send these to me in 7-10 days. We may need to figure out something else for glucose control since we are lowering Mounjaro. Thank you [facility]07-28-2025 Telephone encounter Note* Telephone Encounter - Corrie Alejandro RN - 04/07/2025 1:14 PM EDT Eliceo please review upon return to the office on Monday04/08/25: Patient called, state's she is scheduled for surgery on 05/01/25 for S/P Diverticulitis (inpatient 03/17/25). State's she was told to ask when she should stop the Mounjaro before surgery. Discussed that this is stopped 1-2 weeks before surgery (better 2 weeks before). State's since increasing to 7.5 mg she has had a lot of GI side effects of Nausea, Vomiting, Acid Reflux, No Appetite, Overall Feeling Sick. She has been taking this dose for 2 months. She has lost a total of 31 lbs since starting Mounjaro. She is happy with the weight loss and the improvement of her glucose readings. But, she is agreeable that she may need to either discontinue altogether or go back to 5 mg dose. She felt much better on this dose. She is expected to be in the hospital for @5days following surgery and will have a PICC line for antibiotics following her surgery to go home. She is currently testing once daily. Readings are running a little higher than usual (190's) at times, but isn't really eating due to GI issues. Discussed that the large amount of stress on her body,infection, pain etc. Is likely the culprit. Discussed that she should test her glucose consistentlyand should test 1-2 times daily. Will update testing supplies for 2 times daily. What should patient do for medication for now until surgery? Will she be able to resume Mounjaro after surgery? How long after? At what dose? When do you want glucose readings sent in? Etc. [facility]07-28-2025 Telephone encounter Note* Telephone Encounter - Hailey Ocampo RN - 04/07/2025 9:[address] Esteban, please see pt's update below and advise. Thank you, Hailey Ocampo RN [facility]07-28-2025 Instructions* Patient Instructions* Renee Echeverria APRN.SALES AND MARKETING ASSISTANT - 04/07/2025 7:48 AM EDT Images from the original note were not included. [facility] PATIENT PREOPERATIVE INSTRUCTIONS Marlon Cesar,* has scheduled you for your procedure at this surgery center: [facility]: [phone] --[id number] [id number]. Please check in on the1st floor at registration desk 6. Please read below carefully for your personalized instructions. Arrival Time for Surgery: - The Surgery Center or hospital where you are having surgery will call the afternoon before surgery (or Monday for Monday surgery) with a scheduled arrival time. - If you have not heard by 4 pm, please contact the surgery center above. Dietary Restrictions: - Please follow bowel prep Medications: Unless instructed differently below, stay on all of your medications until your surgery. If you start any new medications after today's visit, please contact your surgeon. Pre-Surgery Med Instructions Medication Instructions neomycin 500 mg tablet Take 2 tablets by mouth as directed. Take 2 tablet at 6pm, 7pm, and 11pm theevening prior to surgery. losartan (COZAAR) 50 mg tablet If you normally take this medication in the morning, take the morning of surgery. metoprolol tartrate, short acting, (LOPRESSOR) 25 mg tablet If you normally take this medication inthe morning, take the morning of surgery. furosemide (LASIX) 40 mg tablet Do not take the day of surgery sucralfate (CARAFATE) 100 mg/mL suspension Do not take the day of surgery levothyroxine (SYNTHROID) 200 mcg tablet If you normally take this medication in the morning, take the morning of surgery. omeprazole (PRILOSEC) 40 mg capsule If you normally take this medication in the morning, take the morning of surgery. flecainide (TAMBOCOR) 100 mg tablet If you normally take this medication in the morning, take the morning of surgery. apixaban (ELIQUIS) 5 mg tab(s) We will touch base with your prescribing provider to ensure it is OKfor you to hold Eliquis for 3 days prior to your procedure. If this is OK, your last dose will be 04/27/25. potassium chloride (K-TAB) 10 mEq tablet Do not take the day of surgery traMADol (ULTRAM) 50 mg tablet If you normally take this medication in the morning, take the morning of surgery. albuterol HFA (PROVENTIL HFA, VENTOLIN HFA) 90 mcg/actuation inhaler Use day of surgery. golimumab (SIMPONI ARIA INTRAVENOUS) We will reach out to you regarding instructions for this medication - please continue to hold the 05/05 dose. CPAP Please bring with you the day of surgery. celecoxib (CELEBREX) 200 mg capsule Hold 7 days before surgery. Last dose 04/22/25. If you are currently using a yrtf-ovc-fzbr injectable or oral medication for diabetes or weight loss such as Dulaglutide (Trulicity), Exenatide (Byetta, Bydureon), Liraglutide (Victoza, Saxenda), Semaglutide (Ozempic, Wegovy, Rybelsus), or Tirzepatide (Mounjaro), the medicine should be stopped at least 7 days before surgery. These medicines can cause food to remain in your stomach for a very longtime and increase the risks from surgery and anesthesia. Not stopping the medication for a long enough time may result in your surgery being rescheduled. If you start any new medications after today's visit, please contact the surgeon's office. Blood Thinning Medications: - Stop NSAIDS (Ibuprofen, Advil, Aleve, Motrin, Celebrex, Mobic, etc.) 7 days before surgery, as directed by your surgeon. - Stop Aspirin 7 days before surgery, as directed by your surgeon. - Stop herbal supplements 7 days before surgery. - You may take Tylenol (Acetaminophen) or any of your pain medications that do not contain aspirin or NSAIDS as needed. Important Reminders: - If you use CPAP/BIPAP, bring the machine with you to the surgery center. - If you are prescribed inhalers for breathing, continue using them. -Please be sure to brush your teeth and you can use mouth wash or rinse your mouth if dry. - Candy, mints, and tobacco products are NOT permitted the morning of surgery. - Hearing aids, dentures and glasses may be worn the morning of surgery. - If you have dentures or partials, please have a case to place them in or leave at home day of surgery. - NO jewelry, body piercings, makeup, hairpins or contacts are to be worn the day of surgery. If you develop symptoms such as a fever, cold, or flu, or have other changes to your health within TWO DAYS of scheduled surgery or the morning of surgery, please contact the surgery center above. Personal Belongings: -Please have photo ID and insurance cards. -If you do not have a copy of advance directives on file with us, please bring a copy with you on the day of surgery. - Leave ALL valuables and money at home or with family members. Please be aware that emergency situations arise, which may delay or change your surgical time. If this happens, we will notify you as soon as possible and regret any inconvenience. If you already have an Advance Directive, please fax a copy to [phone] or email to for it to be added to your chart. If you do not have an Advance Directive, you can find the appropriate form and more information at [email or web address]. We recommend that youcomplete the Advance Directive form found on the website and bring it with you the day of your surgery. It can be witnessed and scanned into your chart that day. Renee Echeverria APRN.SERVANDO documented in this encounter[facility] History and physical note * Renee Echeverria APRN.CNP - 04/07/2025 7:46 AM EDT Images from the original note were not included. [facility] HISTORY AND PHYSICAL EXAMINATION SERVICE DATE: 04/07/2025 SERVICE TIME: 10:19 AM PRIMARY CARE PHYSICIAN: Leonora Davalos APRN.CNP Assessment Patient has the following medical conditions which may affect asya-operative course: 1. Type 2 diabetes mellitus with diabetic polyneuropathy, without long-term current use of insulin (HCC) (E11.42) - Managed with Mounjaro, currently held due to upcoming surgery. - Diabetic polyneuropathy present; previously trialed gabapentin but discontinued due to side effects. - Advised to hold Mounjaro until after surgery. 2. Pure hypercholesterolemia (E78.00) - Patient not currently on any medications. Patient is diet-controlled. 3. Essential hypertension (I10) - Managed with metoprolol and losartan. Last 3 Encounter BP Readings: Date: BP: 04/07/2025 124/73 03/28/2025 130/72 03/28/2025 123/82 4. Coronary artery disease involving [place] coronary artery of [place] heart without angina pectoris(I25.10) - Cardiac catheterization in 2017 showed no significant stenosis requiring stenting. - Follows Cardiology - Denies any heart palpitations, edema, chest pain, shortness of breath, syncope, activity intolerance, or dizziness. 5. Chronic diastolic CHF (congestive heart failure) (HCC) (I50.32) - Managed with Lasix PRN for lower extremity edema; instructed to weigh daily and take Lasix if weight increases by >3-5 lbs. - Appears euvolemic, denies new or worsening cardiac symptoms. 6. MARILIA on CPAP (G47.33) - Advised to bring CPAP to hospital for surgery. 7. Nonalcoholic fatty liver disease without nonalcoholic steatohepatitis (LLAMAS) (K76.0) - Most recent liver biopsy on 09/23/2021 showed mild steatosis. 8. Gastroesophageal reflux disease without esophagitis (K21.9) - Managed with omeprazole and Pepcid 9. Acute diverticulitis (K57.92) - Recent hospitalization with PICC line for antibiotics; scheduled for colectomy on 05/01 due to recurrent episodes. - Advised to follow bowel prep instructions prior to surgery and take Neomycin 2 tablets PO at 6, 7, and 11 PM the evening before surgery. 10. Rheumatoid arthritis of other site, unspecified whether rheumatoid factor present (HCC) (M06.9) - Managed by rheumatology (Dr. Jacquie Lloyd); currently on Celebrex, which will be held after 04/22 inpreparation for surgery. - Simponi held due to immunosuppressive effects; will confirm timing is adequate prior to procedure. 11. Postoperative hypothyroidism (E89.0) - Managed with Synthroid - Denies recent dose adjustments. TSH Date Value 11/12/2024 2.380 mIU/L 05/03/2023 2.280 mIU/L 03/12/2020 0.561 uIU/mL 07/06/2019 0.176 uU/mL 12. History of DVT (deep vein thrombosis) (Z86.718) - Remote history - Currently on Eliquis - Niez Filter in place 13. Headaches (R51.9) - Managed with Tylenol or sinus medication as needed. 14. Anxiety and depression (F41.9) - Anxiety present, particularly related to upcoming surgery; no current suicidal ideation or intentto harm others. 15. Dyspnea, unspecified type (R06.00) - Dyspnea on exertion attributed to CHF and knee/back pain limiting mobility; advised to use albuterol inhaler as needed pre-operatively. 16. History of left breast cancer (Z85.3) - History of left breast cancer in 1996 - Chemo and Radiation as treatment 17. UTI symptoms (R39.9) 18. Dysuria (R30.0) - Urinalysis ordered due to recent dysuria and dark urine; will treat if positive for UTI prior to surgery. 20. Post-operative nausea and vomiting (R11.2) - History of post-op nausea/vomiting and potential delayed emergence from anesthesia; antiemetic plan will be coordinated with anesthesia team considering flecainide use. - Patient reports being awake but lethargiuc after procedures. 21. Atrial fibrillation, unspecified type ([facility]) (I48.91) 22. 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 - Continue flecainide on day of surgery. 23. Obesity, Class III, BMI 40-49.9 (morbid obesity) ([facility]) (E66.813) - Body mass index is 47.64 kg/m . ANESTHESIA FINDINGS: Intubation History: No history of difficult intubation. No abnormal airway history Significant Anesthesia Considerations: Patient reports being awake but lethargic after procedures. potential postop nausea/vomiting potential slow emergence Airway History: No history of difficult airway No abnormal airway history Vincent Activity Status Index: METS: Walk indoors, such as around the house (1.75 METs) Do light work around the house, such as dusting or washing dishes (2.70 METs) Take care of self; that is eating, dressing, bathing, using the toilet (2.75 METs) DASI Score: 7.2 (+ also limited d/t knee and back pain) Patient denies any chest pain or undue shortness of breath with the above physical activity. Clinical Frailty Scale: 3. Well, with treated comorbid disease STOP-Bang Score: STOP-Bang Score: (+ marilia on cpap) [id number] Score: Age: 65-74 Sex: female CHF history: Yes Hypertension history: Yes Stroke/TIA/thromboembolism history: Yes Vascular disease history: No Diabetes history: Yes [id number] Score: 7 I - PHYSICAL EVALUATION AIRWAY Patient intubated: No. Tracheostomy tube not present Mallampati: II. TM distance: >3 FB. Neck ROM: full ROM without neurological symptoms. Mouth opening: adequate. Short neck: no. Thick neck: no DENTAL Dental findings: teeth intact. II - ANESTHESIA PLAN Anesthetic plan additional comments: *PACC/TCI - anesthesia choice. Beta Milton Monitoring Plan Post Procedure Analgesic Plan Prepared for Surgery: optimally prepared for surgery, pending [see comment]. Labs pending. EKG (03/18/25) reviewed and acceptable for procedure CONSULTS: Patient does not require consults for optimization at this time Planned Anesthetic: anesthesia choice The Following Tests/Procedures Have Been Initiated: Orders Placed This Encounter urinalysis w/ micro Standing Status: Future Number of Occurrences: 1 Expected Date: 04/07/2025 Expiration Date: 07/07/2025 urine culture Standing Status: Future Number of Occurrences: 1 Expected Date: 04/07/2025 Expiration Date: 07/07/2025 REASON FOR VISIT: Alexandra Bella is a 69 year old female who is scheduled for Procedure(s): LAPAROSCOPIC HAND ASSISTED COLECTOMY (Left) at the request of Dr. Marlon Cesar for consultation. My final recommendation will be communicated back to the requesting physician by way of shared medical record or letter. Subjective The patient has the following: COVID-19 Immunization Status This patient has no relevant Health Maintenance data. CHIEF COMPLAINT: pre op HPI: Alexandra Bella is a 69-year-old female with a history of diverticulitis, presenting for a preoperative evaluation. Alexandra is scheduled for a colectomy on 05/01, due to recurrent diverticulitis. She reports intermittent chills, but denies recent fevers. REVIEW OF SYSTEMS: General: No weight loss, malaise or fevers. Neurological: Positive for: headaches. Negative for: delirium, dementia, impaired sensorium, peripheral neuropathy, seizures, TIA and strokes. Respiratory: Positive for: obstructive sleep apnea and CPAP/BiPAP compliant. Negative for: asthma, bronchitis, COPD, current cough, bronchodilator used daily for the last 3 months, dyspnea, home oxygen, orthopnea, pneumonia within 6 weeks, tobacco use and URI < 2 weeks. Cardiovascular: Positive for: atrial fibrillation, CAD, CHF, DVT/PE, hyperlipidemia and hypertension Patient's last office visit with ship scaler, Dr. Hobbs, The following tests and/or procedures were performed: cardiac catheterization, cardiac stress test and echocardiogram. The following tests and/or procedures were not performed: cardiac stents. Negative for: abdominal aortic aneurysm, AICD/PPM, angina, anticoagulation therapy, arrhythmia, chest pain, congenital heart defect, recent NE, murmur/valvular heart disease, PTCA, PVD, open heart surgery and valve surgery. GI: Positive for: diverticulitis, GERD and liver disease Negative for: abdominal pain, GI bleed <30 days, hepatitis, nausea, vomiting and ETOH >2 drinks/day. : denies CKD Positive for: dysuria. Negative for: on dialysis, flank pain, frequent urination, hematuria, renal failure and urinary tract infection. Endocrine: Positive for: diabetes mellitus, diabetic neuropathy and hypothyroidism. Patient's diabetes mellitus is controlled by + mounjaro. Negative for: hyperthyroidism. Hematology: Positive for: bruises/bleeds easily and chronic anti-coagulation/platelet meds. Patient is on anti-coagulation/platelet medication(s): DOAC. Negative for: anemia, factor V Leiden, hemophilia, thrombocytopenia, von Willebrand disease and transfusion of at least 4 units within 72 hours prior to surgery. Oncology: + hx of breast cancer Negative for: CA metastasis, chemo within 30 days, disseminated cancer and radiotherapy within 90 days. Psych: Positive for: anxiety and depression. Musculoskeletal: Positive for: rheumatoid arthritis. 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 Jacquie Lloyd. Rheumatoid arthritisList: hx of DMARD and prednisone. Skin: Positive for: itching. Implanted Devices: Has implanted device Implants: Inez IVC Filter. PAST MEDICAL HISTORY Diagnosis Date Acute deep vein thrombosis (DVT) of popliteal vein of left lower extremity (HCC) Four DVT's last one 20 years ago- control- and after fracture Asymptomatic postmenopausal status (age-related) (natural) 03/2000 LMP 03/2000 CHF (congestive heart failure) (HCC) Colon cancer (HCC) 2018 Colorectal cancer (HCC) Endocarditis 2017 Essential hypertension 08/24/2018 Gastroesophageal reflux disease without esophagitis 08/24/2018 GERD (gastroesophageal reflux disease) Irritable bowel syndrome Irritable bowel Syndrome Kidney stones 2004 Left-sided chest wall pain 07/17/2016 Multiple gastric ulcers 2020 MARILIA (obstructive sleep apnea) 08/24/2018 Other hyperlipidemia 08/24/2018 Paroxysmal atrial fibrillation (HCC) Personal history of malignant neoplasm of breast 1996 1996 Breast cancer, clinical stage 1 infiltrating carcinoma left breast Phlebitis and thrombophlebitis of other deep vessels of lower extremities Phlebitis Phlebitis and thrombophlebitis of other deep vessels of lower extremities history of 3 DVTs Left Leg PMH - PAST MEDICAL HISTORY OF 09/1991 pap abnormal cells derived from serve dysplasia PMH - PAST MEDICAL HISTORY OF 11/1991 pap moderate - severe dysplasia Postoperative hypothyroidism 08/24/2018 Pre-diabetes Rheumatoid arthritis (HCC) 08/24/2018 Shingles Thyroid disease PAST SURGICAL HISTORY Procedure Laterality Date CARDIAC CATH 2016 CHOLECYSTECTOMY 2000 COLONOSCOPY 11/08/2011 Dr. Esteban-Random Bx-unremarkable. Sigmoid Bx-focal hyperplastic changes. COLONOSCOPY 03/31/2015 Dr. Esteban-evidence of large scar in the perianal area secondary to resection of SCC 2011. Random Bx's-unremarkable. COLONOSCOPY 04/28/2020 Dr. Esteban-bilious gastric fluid. Bile gastritis. Antrum Bx-unremarkable, HP negative. GEJ Bx-mild inflammation. COLONOSCOPY DIAGNOSTIC 11/01/2022 COLPOSCOPY CERVIX UPPER/ADJACENT VAGINA 12/1991 Colposcopy CONIZATION CERVIX W/WO D&C RPR ELTRD EXC 01/1992 CONE BX, focal atypia EGD 03/31/2015 Dr. Esteban-HH. D2-unremarkable. Stomach body Bx-mild reactive gastropathy, HP negative. Stomach polyps-fundic gland. EGD 12/29/2017 Dr. Esteban-small HH. Multiple gastric polyps-. Non-bleeding erosive gastropathy. Bilious gastric fluid. EGD 2019 EGD DIAGNOSTIC 11/01/2022 FIBROSCAN 03/31/2020 S3, F4 LIG/TRNSXJ FLP TUBE ABDL/VAG APPR UNI/BI history of Tubal ligation LIVER BIOPSY 02/21/2002 hepatic steatosis, moderate and diffuse. Mild portal fibrosis with chronic non- specific inflammation no evidence of cirrhosis. MASTEC PARTIAL W AXILL NODE REMOV 06/1997 left - had radiation and chemo MRI BREAST BIOPSY 1996 excisional Breast BX, BREAST CANCER, clinical stage1 infiltrating carcinoma left breast PAST SURGICAL HISTORY OF 07/2008 had "fatty tumor" removed from back PAST SURGICAL HISTORY OF 01/02/2012 excision perianal lesion-invasive moderately differentiated squamous cell CA PAST SURGICAL HISTORY OF 08/29/2018 Excision of 5 x 6 cm posterior back mass, PAST SURGICAL HISTORY OF Left scope knee PAST SURGICAL HISTORY OF Partial thyroidectomy THYROIDECTOMY TOTAL/COMPLETE 1972 FAMILY HISTORY Problem Relation Age of Onset Hypertension Mother Coronary Artery Disease Father Kidney Disease Father Liver Cancer Brother Heart Brother Heart Brother No Known Problems Daughter Diabetes Son Breast Cancer Maternal Grandmother Breast Cancer Paternal Grandmother Cancer Paternal Grandfather bone cancer Prostate Cancer Paternal Grandfather Diabetes Other mat grt grdf Colon Cancer No Family History other (Blood Clot) No Family History Anesthesia Problems No Family History Social History Tobacco Use Smoking status: Former Current packs/day: 0.00 Average packs/day: 1 pack/day for 15.0 years (15.0 ttl pk-yrs) Types: Cigarettes Start date: 09/11/1974 Quit date: 09/11/1989 Years since quittin.5 Passive exposure: Never Smokeless tobacco: Never Vaping Use Vaping status: Never Used Substance Use Topics Alcohol use: No Comment: occasional, rare Drug use: Never Prior to Admission medications as of 04/07/25 0759 Medication Sig Last Dose Taking neomycin 500 mg tablet Take 2 tablets by mouth as directed. Take 2 tablet at 6pm, 7pm, and 11pm theevening prior to surgery. Yes losartan (COZAAR) 50 mg tablet Take 50 mg by mouth once daily. Yes metoprolol tartrate, short acting, (LOPRESSOR) 25 mg tablet Take 25 mg by mouth once daily. 1/2 tabYes furosemide (LASIX) 40 mg tablet Take 1 tablet by mouth once daily. Yes sucralfate (CARAFATE) 100 mg/mL suspension Take 10 mL by mouth two times a day. Take on empty stomach and avoid eating or drinking for 30 mins after taking. Yes tirzepatide (MOUNJARO) 7.5 mg/0.5 mL pen injector Inject 7.5 mg subcutaneously one time a week. Patient taking differently: Inject 7.5 mg subcutaneously one time a week. Monday Yes levothyroxine (SYNTHROID) 200 mcg tablet Take one tablet Monday through Monday,and half a pill on Saturdays and none on Sundays. Yes omeprazole (PRILOSEC) 40 mg capsule TAKE 1 CAPSULE BY MOUTH ONCE DAILY Yes flecainide (TAMBOCOR) 100 mg tablet Take 1 tablet by mouth every 12 hours. Yes apixaban (ELIQUIS) 5 mg tab(s) Take 1 tablet by mouth twice daily. Yes potassium chloride (K-TAB) 10 mEq tablet Take 1 tablet by mouth once daily. Yes traMADol (ULTRAM) 50 mg tablet Take 1 tablet by mouth as needed for pain. Yes albuterol HFA (PROVENTIL HFA, VENTOLIN HFA) 90 mcg/actuation inhaler as needed for wheezing/shortness of breath. Yes golimumab (SIMPONI ARIA INTRAVENOUS) Inject intravenously every 8 weeks. 2mg/kg (242mg) Yes CPAP Yes celecoxib (CELEBREX) 200 mg capsule Take 1 capsule by mouth once daily. Yes metroNIDAZOLE (FLAGYL) 500 mg tablet Take 1 tablet by mouth three times a day. Take 1 tablet at 6pm, 7pm, and 11pm, the evening prior to surgery. Patient not taking: Reported on 04/07/2025 ONETOUCH ULTRA TEST test strip Use as directed to check glucose once daily. E11.9 ONETOUCH ULTRASOFT LANCETS Use as directed to check glucose once daily.E11.9 Blood-Glucose Meter (ONETOUCH ULTRA2 METER) monitoring kit Use to test blood sugar daily, DX: E11.9, NIDDM losartan (COZAAR) 25 mg tablet Take 0.5 tablets by mouth once daily. Patient not taking: Reported on 04/07/2025 No medication comments found. ALLERGIES Allergen Reactions Adhesive Tape rash Avelox [Moxifloxaci* Heart race Biaxin [Clarithromy* Hives, GI Upset Eryc [Erythromycin] Swelling Metformin GI Upset Throwing up, Diarrhea Penicillins Quinolones Avelox Remicade [Inflixima* Shortness of Breath Spironolactone Intolerance Headaches Sutures Other: See Comments Suture do not dissolve Demerol [Meperidine* Other: See Comments Arm swelled up locally and turned red. Objective PHYSICAL EXAM: General: alert and oriented and healthy appearance. Pertinent negatives noted - not distressed. Skin: normal color, no rash or lesions. HEENT: EOM intact, pupils equal round and pupils reactive to light. Pertinent negatives noted - no carotid bruit. Cardiovascular: regular rate and rhythm, normal S1 and S2, no rub, murmurs, or gallop. Respiratory: normal breath sounds, no wheezes or crackles. No chest wall deformity or tenderness. Abdomen: bowel sounds present and soft. Pertinent negatives noted - not tender. Extremities: Positive for joint tenderness. Pertinent negatives noted - no cellulitis, no clubbing,no deformity, no edema, no joint swelling, no abnormal pulses, no ulcer, no vascular insufficiency and no varicose veins. Neurological: normal cognition and motor skills. Gait normal. No weakness or sensory deficit. PAIN ASSESSMENT: VITALS: BP 124/73 Pulse 101 Temp (Src) 97.6 (Temporal) Resp 16 Ht 5' 3" (1.60m) Wt 268 lb 15.4 oz(122.0kg) SpO2 96% LMP 03/11/1998 BMI 47.66 kg/(m^2). Diagnostic tests reviewed for today's visit: Lab Value Units Date High Low HB 12.4 g/dL 03/24/2025 15.5 11.5 HCT 38.5 % 03/24/2025 46.0 36.0 WBC 5.78 k/uL 03/24/2025 11.00 3.70 PLT 233 k/uL 03/24/2025 400 150 NA 140 mmol/L 03/26/2025 144 136 K 4.0 mmol/L 03/26/2025 5.1 3.7 GLUC 131 mg/dL 03/26/2025 99 74 BUN 9 mg/dL 03/26/2025 21 7 CREAT 0.67 mg/dL 03/26/2025 0.96 0.58 PTSEC 13.2 sec 03/18/2025 13.0 9.7 INR 1.2 no uni* 03/18/2025 1.3 0.9 APTT >139.0 sec 03/20/2025 32.4 23.0 ALT 54 U/L 03/26/2025 38 7 AST 67 U/L 03/26/2025 35 13 TBILI 0.3 mg/dL 03/26/2025 1.3 0.2 TSH 2.380 mIU/L 11/12/2024 4.200 0.270 Lab Value Units Date High Low HCGQT No results within date range. UHCG No results within date range. HCG, BODY* No results within date range. Lab Value Units Date High Low ABORHD No results within date range. ABSCREEN No results within date range. Hemoglobin A1C (%) Date Value 02/12/2025 6.5 11/12/2024 7.2 11/15/2023 7.3 03/12/2020 6.4 07/06/2019 6.5 Hemoglobin A1C (POCT) (%) Date Value 04/17/2024 7.5 05/03/2023 8.6 05/25/2022 8.9 Recent Results (from the past 8760 hours) ECG COMPLETE Collection Time: 03/18/25 4:41 PM Result Value Ventricular Rate 83 Atrial Rate 83 P-R Interval 190 QRS Duration 144 QT Interval 444 QTC Calculation (Bazett) 521 Calculated P [place] 58 Calculated R [place] 109 Calculated T [place] 19 Impression NORMAL SINUS RHYTHM RIGHT BUNDLE BRANCH BLOCK ABNORMAL ECG WHEN COMPARED WITH ECG OF 01-Mar-2021 16:24, INVERTED T WAVES HAVE REPLACED NONSPECIFIC T WAVE ABNORMALITY IN INFERIOR LEADS Confirmed by TONJA OVALLE MD ([id number]) on 03/19/2025 4:18:35 PM No results found for this or any previous visit (from the past 87649 hours). Instructions Given to Patient: Instructions located in the after visit summary. Patient given verbal and written preop instructions and voices comprehension and compliance. Recording using xiao qu wu you software for draft documentation of the visit was discussed with the patient/authorized sales representative publications; all questions welcomed and answered. Patient/authorized sales representative publications agreed to proceed SIGNATURE: Renee Echeverria APRN.CNP PATIENT NAME: Alexandra Bella DATE: April 07, 2025 TIME: 7:46 AM PAGER/CONTACT #: [id number] History and physical note* Renee Echeverria APRN.CNP - 04/07/2025 7:46 AM EDT Images from the original note were not included. [facility] HISTORY AND PHYSICAL EXAMINATION SERVICE DATE: 04/07/2025 SERVICE TIME: 10:19 AM PRIMARY CARE PHYSICIAN: Leonora Davalos APRN.CNP Assessment Patient has the following medical conditions which may affect asya-operative course: 1. Type 2 diabetes mellitus with diabetic polyneuropathy, without long-term current use of insulin (HCC) (E11.42) - Managed with Mounjaro, currently held due to upcoming surgery. - Diabetic polyneuropathy present; previously trialed gabapentin but discontinued due to side effects. - Advised to hold Mounjaro until after surgery. 2. Pure hypercholesterolemia (E78.00) - Patient not currently on any medications. Patient is diet-controlled. 3. Essential hypertension (I10) - Managed with metoprolol and losartan. Last 3 Encounter BP Readings: Date: BP: 04/07/2025 124/73 03/28/2025 130/72 03/28/2025 123/82 4. Coronary artery disease involving [place] coronary artery of [place] heart without angina pectoris(I25.10) - Cardiac catheterization in 2017 showed no significant stenosis requiring stenting. - Follows Cardiology - Denies any heart palpitations, edema, chest pain, shortness of breath, syncope, activity intolerance, or dizziness. 5. Chronic diastolic CHF (congestive heart failure) (HCC) (I50.32) - Managed with Lasix PRN for lower extremity edema; instructed to weigh daily and take Lasix if weight increases by >3-5 lbs. - Appears euvolemic, denies new or worsening cardiac symptoms. 6. MARILIA on CPAP (G47.33) - Advised to bring CPAP to hospital for surgery. 7. Nonalcoholic fatty liver disease without nonalcoholic steatohepatitis ([facility]) (K76.0) - Most recent liver biopsy on 09/23/2021 showed mild steatosis. 8. Gastroesophageal reflux disease without esophagitis (K21.9) - Managed with omeprazole and Pepcid 9. Acute diverticulitis (K57.92) - Recent hospitalization with PICC line for antibiotics; scheduled for colectomy on 05/01 due to recurrent episodes. - Advised to follow bowel prep instructions prior to surgery and take Neomycin 2 tablets PO at 6, 7, and 11 PM the evening before surgery. 10. Rheumatoid arthritis of other site, unspecified whether rheumatoid factor present (HCC) (M06.9) - Managed by rheumatology (Dr. Jacquie Lloyd); currently on Celebrex, which will be held after 04/22 inpreparation for surgery. - Simponi held due to immunosuppressive effects; will confirm timing is adequate prior to procedure. 11. Postoperative hypothyroidism (E89.0) - Managed with Synthroid - Denies recent dose adjustments. TSH Date Value 11/12/2024 2.380 mIU/L 05/03/2023 2.280 mIU/L 03/12/2020 0.561 uIU/mL 07/06/2019 0.176 uU/mL 12. History of DVT (deep vein thrombosis) (Z86.718) - Remote history - Currently on Eliquis - Inez Filter in place 13. Headaches (R51.9) - Managed with Tylenol or sinus medication as needed. 14. Anxiety and depression (F41.9) - Anxiety present, particularly related to upcoming surgery; no current suicidal ideation or intentto harm others. 15. Dyspnea, unspecified type (R06.00) - Dyspnea on exertion attributed to CHF and knee/back pain limiting mobility; advised to use albuterol inhaler as needed pre-operatively. 16. History of left breast cancer (Z85.3) - History of left breast cancer in 1996 - Chemo and Radiation as treatment 17. UTI symptoms (R39.9) 18. Dysuria (R30.0) - Urinalysis ordered due to recent dysuria and dark urine; will treat if positive for UTI prior to surgery. 20. Post-operative nausea and vomiting (R11.2) - History of post-op nausea/vomiting and potential delayed emergence from anesthesia; antiemetic plan will be coordinated with anesthesia team considering flecainide use. - Patient reports being awake but lethargiuc after procedures. 21. Atrial fibrillation, unspecified type (HCC) (I48.91) 22. snf (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 (Z79.01) - Managed with Eliquis and flecainide; last dose of Eliquis on 04/27 (3 days prior to surgery). - Continue flecainide on day of surgery. 23. Obesity, Class III, BMI 40-49.9 (morbid obesity) ([facility]) (E66.849) - Body mass index is 47.64 kg/m . ANESTHESIA FINDINGS: Intubation History: No history of difficult intubation. No abnormal airway history Significant Anesthesia Considerations: Patient reports being awake but lethargic after procedures. potential postop nausea/vomiting potential slow emergence Airway History: No history of difficult airway No abnormal airway history Vincent Activity Status Index: METS: Walk indoors, such as around the house (1.75 METs) Do light work around the house, such as dusting or washing dishes (2.70 METs) Take care of self; that is eating, dressing, bathing, using the toilet (2.75 METs) DASI Score: 7.2 (+ also limited d/t knee and back pain) Patient denies any chest pain or undue shortness of breath with the above physical activity. Clinical Frailty Scale: 3. Well, with treated comorbid disease STOP-Bang Score: STOP-Bang Score: (+ marilia on cpap) [id number] Score: Age: 65-74 Sex: female CHF history: Yes Hypertension history: Yes Stroke/TIA/thromboembolism history: Yes Vascular disease history: No Diabetes history: Yes [id number] Score: 7 I - PHYSICAL EVALUATION AIRWAY Patient intubated: No. Tracheostomy tube not present Mallampati: II. TM distance: >3 FB. Neck ROM: full ROM without neurological symptoms. Mouth opening: adequate. Short neck: no. Thick neck: no DENTAL Dental findings: teeth intact. II - ANESTHESIA PLAN Anesthetic plan additional comments: *PACC/TCI - anesthesia choice. Beta Milton Monitoring Plan Post Procedure Analgesic Plan Prepared for Surgery: optimally prepared for surgery, pending [see comment]. Labs pending. EKG (03/18/25) reviewed and acceptable for procedure CONSULTS: Patient does not require consults for optimization at this time Planned Anesthetic: anesthesia choice The Following Tests/Procedures Have Been Initiated: Orders Placed This Encounter urinalysis w/ micro Standing Status: Future Number of Occurrences: 1 Expected Date: 04/07/2025 Expiration Date: 07/07/2025 urine culture Standing Status: Future Number of Occurrences: 1 Expected Date: 04/07/2025 Expiration Date: 07/07/2025 REASON FOR VISIT: Alexandra Bella is a 69 year old female who is scheduled for Procedure(s): LAPAROSCOPIC HAND ASSISTED COLECTOMY (Left) at the request of Dr. Marlon Cesar for consultation. My final recommendation will be communicated back to the requesting physician by way of shared medical record or letter. Subjective The patient has the following: COVID-19 Immunization Status This patient has no relevant Health Maintenance data. CHIEF COMPLAINT: pre op HPI: Alexandra Bella is a 69-year-old female with a history of diverticulitis, presenting for a preoperative evaluation. Alexandra is scheduled for a colectomy on 05/01, due to recurrent diverticulitis. She reports intermittent chills, but denies recent fevers. REVIEW OF SYSTEMS: General: No weight loss, malaise or fevers. Neurological: Positive for: headaches. Negative for: delirium, dementia, impaired sensorium, peripheral neuropathy, seizures, TIA and strokes. Respiratory: Positive for: obstructive sleep apnea and CPAP/BiPAP compliant. Negative for: asthma, bronchitis, COPD, current cough, bronchodilator used daily for the last 3 months, dyspnea, home oxygen, orthopnea, pneumonia within 6 weeks, tobacco use and URI < 2 weeks. Cardiovascular: Positive for: atrial fibrillation, CAD, CHF, DVT/PE, hyperlipidemia and hypertension Patient's last office visit with ship scaler, Dr. Hobbs, The following tests and/or procedures were performed: cardiac catheterization, cardiac stress test and echocardiogram. The following tests and/or procedures were not performed: cardiac stents. Negative for: abdominal aortic aneurysm, AICD/PPM, angina, anticoagulation therapy, arrhythmia, chest pain, congenital heart defect, recent NE, murmur/valvular heart disease, PTCA, PVD, open heart surgery and valve surgery. GI: Positive for: diverticulitis, GERD and liver disease Negative for: abdominal pain, GI bleed <30 days, hepatitis, nausea, vomiting and ETOH >2 drinks/day. : denies CKD Positive for: dysuria. Negative for: on dialysis, flank pain, frequent urination, hematuria, renal failure and urinary tract infection. Endocrine: Positive for: diabetes mellitus, diabetic neuropathy and hypothyroidism. Patient's diabetes mellitus is controlled by + mounjaro. Negative for: hyperthyroidism. Hematology: Positive for: bruises/bleeds easily and chronic anti-coagulation/platelet meds. Patient is on anti-coagulation/platelet medication(s): DOAC. Negative for: anemia, factor V Leiden, hemophilia, thrombocytopenia, von Willebrand disease and transfusion of at least 4 units within 72 hours prior to surgery. Oncology: + hx of breast cancer Negative for: CA metastasis, chemo within 30 days, disseminated cancer and radiotherapy within 90 days. Psych: Positive for: anxiety and depression. Musculoskeletal: Positive for: rheumatoid arthritis. 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 Jacquie Lloyd. Rheumatoid arthritisList: hx of DMARD and prednisone. Skin: Positive for: itching. Implanted Devices: Has implanted device Implants: Infinisource IVC Filter. PAST MEDICAL HISTORY Diagnosis Date Acute deep vein thrombosis (DVT) of popliteal vein of left lower extremity (HCC) Four DVT's last one 20 years ago- control- and after fracture Asymptomatic postmenopausal status (age-related) (natural) 03/2000 LMP 03/2000 CHF (congestive heart failure) (HCC) Colon cancer (HCC) 2018 Colorectal cancer (HCC) Endocarditis 2017 Essential hypertension 08/24/2018 Gastroesophageal reflux disease without esophagitis 08/24/2018 GERD (gastroesophageal reflux disease) Irritable bowel syndrome Irritable bowel Syndrome Kidney stones 2004 Left-sided chest wall pain 07/17/2016 Multiple gastric ulcers 2020 MARILIA (obstructive sleep apnea) 08/24/2018 Other hyperlipidemia 08/24/2018 Paroxysmal atrial fibrillation (HCC) Personal history of malignant neoplasm of breast 1996 1996 Breast cancer, clinical stage 1 infiltrating carcinoma left breast Phlebitis and thrombophlebitis of other deep vessels of lower extremities Phlebitis Phlebitis and thrombophlebitis of other deep vessels of lower extremities history of 3 DVTs Left Leg PMH - PAST MEDICAL HISTORY OF 09/1991 pap abnormal cells derived from serve dysplasia PMH - PAST MEDICAL HISTORY OF 11/1991 pap moderate - severe dysplasia Postoperative hypothyroidism 08/24/2018 Pre-diabetes Rheumatoid arthritis (HCC) 08/24/2018 Shingles Thyroid disease PAST SURGICAL HISTORY Procedure Laterality Date CARDIAC CATH 2016 CHOLECYSTECTOMY 2000 COLONOSCOPY 11/08/2011 Dr. Esteban-Random Bx-unremarkable. Sigmoid Bx-focal hyperplastic changes. COLONOSCOPY 03/31/2015 Dr. Esteban-evidence of large scar in the perianal area secondary to resection of SCC 2011. Random Bx's-unremarkable. COLONOSCOPY 04/28/2020 Dr. Esteban-bilious gastric fluid. Bile gastritis. Antrum Bx-unremarkable, HP negative. GEJ Bx-mild inflammation. COLONOSCOPY DIAGNOSTIC 11/01/2022 COLPOSCOPY CERVIX UPPER/ADJACENT VAGINA 12/1991 Colposcopy CONIZATION CERVIX W/WO D&C RPR ELTRD EXC 01/1992 CONE BX, focal atypia EGD 03/31/2015 Dr. Esteban-HH. D2-unremarkable. Stomach body Bx-mild reactive gastropathy, HP negative. Stomach polyps-fundic gland. EGD 12/29/2017 Dr. Esteban-small HH. Multiple gastric polyps-. Non-bleeding erosive gastropathy. Bilious gastric fluid. EGD 2019 EGD DIAGNOSTIC 11/01/2022 FIBROSCAN 03/31/2020 S3, F4 LIG/TRNSXJ FLP TUBE ABDL/VAG APPR UNI/BI history of Tubal ligation LIVER BIOPSY 02/21/2002 hepatic steatosis, moderate and diffuse. Mild portal fibrosis with chronic non- specific inflammation no evidence of cirrhosis. MASTEC PARTIAL W AXILL NODE REMOV 06/1997 left - had radiation and chemo MRI BREAST BIOPSY 1996 excisional Breast BX, BREAST CANCER, clinical stage1 infiltrating carcinoma left breast PAST SURGICAL HISTORY OF 07/2008 had "fatty tumor" removed from back PAST SURGICAL HISTORY OF 01/02/2012 excision perianal lesion-invasive moderately differentiated squamous cell CA PAST SURGICAL HISTORY OF 08/29/2018 Excision of 5 x 6 cm posterior back mass, PAST SURGICAL HISTORY OF Left scope knee PAST SURGICAL HISTORY OF Partial thyroidectomy THYROIDECTOMY TOTAL/COMPLETE 1973 FAMILY HISTORY Problem Relation Age of Onset Hypertension Mother Coronary Artery Disease Father Kidney Disease Father Liver Cancer Brother Heart Brother Heart Brother No Known Problems Daughter Diabetes Son Breast Cancer Maternal Grandmother Breast Cancer Paternal Grandmother Cancer Paternal Grandfather bone cancer Prostate Cancer Paternal Grandfather Diabetes Other mat grt grdf Colon Cancer No Family History other (Blood Clot) No Family History Anesthesia Problems No Family History Social History Tobacco Use Smoking status: Former Current packs/day: 0.00 Average packs/day: 1 pack/day for 15.0 years (15.0 ttl pk-yrs) Types: Cigarettes Start date: 09/11/1974 Quit date: 09/11/1989 Years since quittin.5 Passive exposure: Never Smokeless tobacco: Never Vaping Use Vaping status: Never Used Substance Use Topics Alcohol use: No Comment: occasional, rare Drug use: Never Prior to Admission medications as of 04/07/25 0759 Medication Sig Last Dose Taking neomycin 500 mg tablet Take 2 tablets by mouth as directed. Take 2 tablet at 6pm, 7pm, and 11pm theevening prior to surgery. Yes losartan (COZAAR) 50 mg tablet Take 50 mg by mouth once daily. Yes metoprolol tartrate, short acting, (LOPRESSOR) 25 mg tablet Take 25 mg by mouth once daily. 1/2 tabYes furosemide (LASIX) 40 mg tablet Take 1 tablet by mouth once daily. Yes sucralfate (CARAFATE) 100 mg/mL suspension Take 10 mL by mouth two times a day. Take on empty stomach and avoid eating or drinking for 30 mins after taking. Yes tirzepatide (MOUNJARO) 7.5 mg/0.5 mL pen injector Inject 7.5 mg subcutaneously one time a week. Patient taking differently: Inject 7.5 mg subcutaneously one time a week. Monday Yes levothyroxine (SYNTHROID) 200 mcg tablet Take one tablet Monday through Monday,and half a pill on Saturdays and none on Sundays. Yes omeprazole (PRILOSEC) 40 mg capsule TAKE 1 CAPSULE BY MOUTH ONCE DAILY Yes flecainide (TAMBOCOR) 100 mg tablet Take 1 tablet by mouth every 12 hours. Yes apixaban (ELIQUIS) 5 mg tab(s) Take 1 tablet by mouth twice daily. Yes potassium chloride (K-TAB) 10 mEq tablet Take 1 tablet by mouth once daily. Yes traMADol (ULTRAM) 50 mg tablet Take 1 tablet by mouth as needed for pain. Yes albuterol HFA (PROVENTIL HFA, VENTOLIN HFA) 90 mcg/actuation inhaler as needed for wheezing/shortness of breath. Yes golimumab (SIMPONI ARIA INTRAVENOUS) Inject intravenously every 8 weeks. 2mg/kg (242mg) Yes CPAP Yes celecoxib (CELEBREX) 200 mg capsule Take 1 capsule by mouth once daily. Yes metroNIDAZOLE (FLAGYL) 500 mg tablet Take 1 tablet by mouth three times a day. Take 1 tablet at 6pm, 7pm, and 11pm, the evening prior to surgery. Patient not taking: Reported on 04/07/2025 ONETOUCH ULTRA TEST test strip Use as directed to check glucose once daily. E11.9 ONETOUCH ULTRASOFT LANCETS Use as directed to check glucose once daily.E11.9 Blood-Glucose Meter (ONETOUCH ULTRA2 METER) monitoring kit Use to test blood sugar daily, DX: E11.9, NIDDM losartan (COZAAR) 25 mg tablet Take 0.5 tablets by mouth once daily. Patient not taking: Reported on 04/07/2025 No medication comments found. ALLERGIES Allergen Reactions Adhesive Tape rash Avelox [Moxifloxaci* Heart race Biaxin [Clarithromy* Hives, GI Upset Eryc [Erythromycin] Swelling Metformin GI Upset Throwing up, Diarrhea Penicillins Quinolones Avelox Remicade [Inflixima* Shortness of Breath Spironolactone Intolerance Headaches Sutures Other: See Comments Suture do not dissolve Demerol [Meperidine* Other: See Comments Arm swelled up locally and turned red. Objective PHYSICAL EXAM: General: alert and oriented and healthy appearance. Pertinent negatives noted - not distressed. Skin: normal color, no rash or lesions. HEENT: EOM intact, pupils equal round and pupils reactive to light. Pertinent negatives noted - no carotid bruit. Cardiovascular: regular rate and rhythm, normal S1 and S2, no rub, murmurs, or gallop. Respiratory: normal breath sounds, no wheezes or crackles. No chest wall deformity or tenderness. Abdomen: bowel sounds present and soft. Pertinent negatives noted - not tender. Extremities: Positive for joint tenderness. Pertinent negatives noted - no cellulitis, no clubbing,no deformity, no edema, no joint swelling, no abnormal pulses, no ulcer, no vascular insufficiency and no varicose veins. Neurological: normal cognition and motor skills. Gait normal. No weakness or sensory deficit. PAIN ASSESSMENT: VITALS: BP 124/73 Pulse 101 Temp (Src) 97.6 (Temporal) Resp 16 Ht 5' 3" (1.60m) Wt 268 lb 15.4 oz(122.0kg) SpO2 96% LMP 03/11/1998 BMI 47.66 kg/(m^2). Diagnostic tests reviewed for today's visit: Lab Value Units Date High Low HB 12.4 g/dL 03/24/2025 15.5 11.5 HCT 38.5 % 03/24/2025 46.0 36.0 WBC 5.78 k/uL 03/24/2025 11.00 3.70 PLT 233 k/uL 03/24/2025 400 150 NA 140 mmol/L 03/26/2025 144 136 K 4.0 mmol/L 03/26/2025 5.1 3.7 GLUC 131 mg/dL 03/26/2025 99 74 BUN 9 mg/dL 03/26/2025 21 7 CREAT 0.67 mg/dL 03/26/2025 0.96 0.58 PTSEC 13.2 sec 03/18/2025 13.0 9.7 INR 1.2 no uni* 03/18/2025 1.3 0.9 APTT >139.0 sec 03/20/2025 32.4 23.0 ALT 54 U/L 03/26/2025 38 7 AST 67 U/L 03/26/2025 35 13 TBILI 0.3 mg/dL 03/26/2025 1.3 0.2 TSH 2.380 mIU/L 11/12/2024 4.200 0.270 Lab Value Units Date High Low HCGQT No results within date range. UHCG No results within date range. HCG, BODY* No results within date range. Lab Value Units Date High Low ABORHD No results within date range. ABSCREEN No results within date range. Hemoglobin A1C (%) Date Value 02/12/2025 6.5 11/12/2024 7.2 11/15/2023 7.3 03/12/2020 6.4 07/06/2019 6.5 Hemoglobin A1C (POCT) (%) Date Value 04/17/2024 7.5 05/03/2023 8.6 05/25/2022 8.9 Recent Results (from the past 8760 hours) ECG COMPLETE Collection Time: 03/18/25 4:41 PM Result Value Ventricular Rate 83 Atrial Rate 83 P-R Interval 190 QRS Duration 144 QT Interval 444 QTC Calculation (Bazett) 521 Calculated P [place] 58 Calculated R Lancaster 109 Calculated T Lancaster 19 Impression NORMAL SINUS RHYTHM RIGHT BUNDLE BRANCH BLOCK ABNORMAL ECG WHEN COMPARED WITH ECG OF 01-Mar-2021 16:24, INVERTED T WAVES HAVE REPLACED NONSPECIFIC T WAVE ABNORMALITY IN INFERIOR LEADS Confirmed by TONJA OVALLE MD ([id number]) on 03/19/2025 4:18:35 PM No results found for this or any previous visit (from the past 61386 hours). Instructions Given to Patient: Instructions located in the after visit summary. Patient given verbal and written preop instructions and voices comprehension and compliance. Recording using xiao qu wu you software for draft documentation of the visit was discussed with the patient/authorized sales representative publications; all questions welcomed and answered. Patient/authorized sales representative publications agreed to proceed SIGNATURE: Renee Echeverria APRN.CNP PATIENT NAME: Alexandra Bella DATE: April 07, 2025 TIME: 7:46 AM PAGER/CONTACT #: documented in [facility] Telephone encounter Note * Telephone Encounter - Rosy Esteban MD - 04/02/2025 8:07 AM EDT Hailey: Please call her and find out about her symptoms and the course oh her treatment and work-up done thus far. Did she reach out to her PCP? Rosy Esteban MD [facility] [place]07-18-20[facility] Miscellaneous Notes* SN Agency Jane Velásquez, JONI - 03/28/2025 2:17 PM EDT SITUATION: [facility] discharge visit completed today. only patient also present during today's visit. patient reports the following: Allergies--reviewed Medications--reviewed current medications Falls--None BACKGROUND: Reason for Home Care: diverticulitis ASSESSMENT: SN instructed to come in. Patient sitting up on couch. Patient appears in no acute distress. Patient/CG concerns verbalized today: NA Vitals (see flow sheet for details): stable SN findings today: Patient pleasant and cooperative. She saw colorectal surgeon today and is now scheduled for surgery on 05/01. She had regular BM this afternoon and appetite slowly improving. She still has back pain and abdominal discomfort. PICC line removed per order. SN discussed continuing SN visits for symptom monitoring and disease management, Patient declined stating she feels she has under control and requesting discharge today. No other issues or concerns voiced. See intervention summary for education details and any skills performed. Specific SN discharge instructions: Continue medications as prescribed. Maintain activity as tolerated. Follow low residue ADA diet. Keep all scheduled appts Patient encouraged to take all medication as ordered, eat a well-balanced diet and follow up with all physician appointments. NOMNC: patient requested discharge today Discharged due to no further SN skilled need. Patient discharged from Home Care to: self-care and family support RECOMMENDATION: Additional follow ups recommended: GI, colorectal Patient to follow up with Leonora Davalos APRN.CNP for additional medical questions/concerns. documented in this encounter[facility] [place] Patient's home Note* SN Agency [place] - Jane Martinez RN - 03/28/2025 2:17 PM EDT SITUATION: [facility] agency discharge visit completed today. only patient also present during today's visit. patient reports the following: Allergies--reviewed Medications--reviewed current medications Falls--None BACKGROUND: Reason for Home Care: diverticulitis ASSESSMENT: SN instructed to come in. Patient sitting up on couch. Patient appears in no acute distress. Patient/CG concerns verbalized today: NA Vitals (see flow sheet for details): stable SN findings today: Patient pleasant and cooperative. She saw colorectal surgeon today and is now scheduled for surgery on 05/01. She had regular BM this afternoon and appetite slowly improving. She still has back pain and abdominal discomfort. PICC line removed per order. SN discussed continuing SN visits for symptom monitoring and disease management, Patient declined stating she feels she has under control and requesting discharge today. No other issues or concerns voiced. See intervention summary for education details and any skills performed. Specific SN discharge instructions: Continue medications as prescribed. Maintain activity as tolerated. Follow low residue ADA diet. Keep all scheduled appts Patient encouraged to take all medication as ordered, eat a well-balanced diet and follow up with all physician appointments. NOMNC: patient requested discharge today Discharged due to no further SN skilled need. Patient discharged from Home Care to: self-care and family support RECOMMENDATION: Additional follow ups recommended: GI, colorectal Patient to follow up with Leonora Davalos APRN.CNP for additional medical questions/concerns. [facility] Work Phone: [phone] NoteHNO ID: [id number] Author: MATEUS LOBO RN Service: ? Author Type: Registered Nurse Type: Progress Notes Filed: 03/31/2025 08:26 Note Text: AMBULATORY PATIENT EDUCATION NOTE SURGICAL PREPARATION: colonoscopy (day before)/ HALS left SURGERY DATE: April 30May 01 DIAGNOSIS: diverticulitis READINESS TO LEARN COGNITIVE ABILITY: Alert and oriented MOTIVATION TO LEARN: Eager FAMILY SUPPORT: High - Very involved in pt care PHYSICAL LIMITATIONS AFFECTING LEARNING: None METHOD OF INSTRUCTION: Verbal and Written instruction - handouts provided in blue folder SUPPLEMENTAL MATERIAL: -location of surgery/ date - patient aware date is tentative and subject to change -PACC appointment needed with in 30 days of surgery -bowel preparations prior to surgery- May have sips of water up until 2 hrs of arrival time for surgery -antibiotics preoperatively -antimicrobial shower/wipes use WOUND CARE -post operative wound care expectations reviewed DIET- handouts provided on diet post op: -Post op diet following colorectal surgery = handout reviewed and provided to patient. Patient acknowledges and understands. They have contact phone number for further concerns and for post operative questions. [phone] Staff Message sent to OR choral director with procedure/time/date for patient. TIME SPENT: 15 minutes Electronically Signed By: ABDOULAYE Trevizo, RN DDSI [facility]inator[facility]-18-[facility] History of Present illness Narrative* Mateus Lobo, RN - 03/28/2025 1:48 PM EDT AMBULATORY PATIENT EDUCATION NOTE SURGICAL PREPARATION: colonoscopy (day before)/ HALS left SURGERY DATE: April 30May 01 DIAGNOSIS: diverticulitis READINESS TO LEARN COGNITIVE ABILITY: Alert and oriented MOTIVATION TO LEARN: Eager FAMILY SUPPORT: High - Very involved in pt care PHYSICAL LIMITATIONS AFFECTING LEARNING: None METHOD OF INSTRUCTION: Verbal and Written instruction - handouts provided in blue folder SUPPLEMENTAL MATERIAL: -location of surgery/ date - patient aware date is tentative and subject to change -PACC appointment needed with in 30 days of surgery -bowel preparations prior to surgery- May have sips of water up until 2 hrs of arrival time for surgery -antibiotics preoperatively -antimicrobial shower/wipes use WOUND CARE -post operative wound care expectations reviewed DIET- handouts provided on diet post op: -Post op diet following colorectal surgery = handout reviewed and provided to patient. Patient acknowledges and understands. They have contact phone number for further concerns and for post operative questions. [phone] Staff Message sent to OR choral director with procedure/time/date for patient. TIME SPENT: 15 minutes Electronically Signed By: ABDOULAYE Trevizo, RN DDSI Specialty Accounts Payable Manager documented in this encounterSelect [facility] [place] History of Present illness Narrative* Marlon Cesar MD - 03/28/2025 10:15 AM EDT COLORECTAL SURGERY March 28, 2025 Alexandra Bella This consult was requested by Dr. Rosy Esteban and my final recommendations will be communicated to the requesting health care provider by way of the shared medical record for internal providers or letter via the [employer] Postal Service for external providers. Recording using xiao qu wu you software for draft documentation of the visit was discussed with the patient/authorized sales representative publications; all questions welcomed and answered. Patient/authorized sales representative publications agreed to proceed Chief Complaint: diverticulitis History of Present Illness: Alexandra M Jena is a 69 year old female who presents to the office for evaluation of diverticulitis. She was recently admitted to the hospital on 03/17/25 for acute diverticulitis and started on IV antibiotics. Infectious disease recommended continuing the IV antibiotics at home so a PICC line was placed and home health care was started. PMH: Breast Cancer s/p partial left mastectomy, Colon Cancer, CHF, Endocarditis, GERD, Hypertension, Hyperlipidemia, Hypothyroidism, IBS, pAF (Eliquis and Flecainide), MARILIA, and RA. CT abdomen/pelvis on 03/17/25: Inflammatory changes surrounding a 2 cm outpouching in the mid sigmoid colon (2:99) suggestive of diverticulitis. It is difficult to assess for presence of intramural abscess due to lack of IV contrast. Trace free fluid and fat stranding in the left pelvis Colonoscopy on 11/01/[address] Rosy Esteban - The examined portion of the ileum was normal. - Mild diverticulosis in the sigmoid colon. There was evidence of diverticular spasm. Asya-diverticular erythema was seen. Petechia were visualized in association with the diverticular opening. There was no evidence of diverticular bleeding. - The examination was otherwise normal. - The distal rectum and anal verge are normal on retroflexion view. - Biopsies were taken with a cold forceps from the right colon and left colon for evaluation of microscopic colitis. Pathology: Colon, right, biopsy: - Colonic mucosa with no significant pathologic change. Colon, left, biopsy: - Colonic mucosa with no significant pathologic change PAST MEDICAL HISTORY Diagnosis Date Acute deep vein thrombosis (DVT) of popliteal vein of left lower extremity (HCC) Four DVT's last one 20 years ago- control- and after fracture Asymptomatic postmenopausal status (age-related) (natural) 03/2000 LMP 03/2000 CHF (congestive heart failure) (HCC) Colon cancer (HCC) 2018 Colorectal cancer (HCC) Endocarditis 2017 Essential hypertension 08/24/2018 Gastroesophageal reflux disease without esophagitis 08/24/2018 GERD (gastroesophageal reflux disease) Irritable bowel syndrome Irritable bowel Syndrome Kidney stones 2004 Left-sided chest wall pain 07/17/2016 Multiple gastric ulcers 2020 MARILIA (obstructive sleep apnea) 08/24/2018 Other hyperlipidemia 08/24/2018 Paroxysmal atrial fibrillation (HCC) Personal history of malignant neoplasm of breast 1996 1996 Breast cancer, clinical stage 1 infiltrating carcinoma left breast Phlebitis and thrombophlebitis of other deep vessels of lower extremities Phlebitis Phlebitis and thrombophlebitis of other deep vessels of lower extremities history of 3 DVTs Left Leg PMH - PAST MEDICAL HISTORY OF 09/1991 pap abnormal cells derived from serve dysplasia PMH - PAST MEDICAL HISTORY OF 11/1991 pap moderate - severe dysplasia Postoperative hypothyroidism 08/24/2018 Pre-diabetes Rheumatoid arthritis (HCC) 08/24/2018 Shingles Thyroid disease PAST SURGICAL HISTORY Procedure Laterality Date CARDIAC CATH 2017 CHOLECYSTECTOMY 2000 COLONOSCOPY 11/08/2011 Dr. Esteban-Random Bx-unremarkable. Sigmoid Bx-focal hyperplastic changes. COLONOSCOPY 03/31/2015 Dr. Esteban-evidence of large scar in the perianal area secondary to resection of SCC 2011. Random Bx's-unremarkable. COLONOSCOPY 04/28/2020 Dr. Esteban-bilious gastric fluid. Bile gastritis. Antrum Bx-unremarkable, HP negative. GEJ Bx-mild inflammation. COLONOSCOPY DIAGNOSTIC 11/01/2022 COLPOSCOPY CERVIX UPPER/ADJACENT VAGINA 12/1991 Colposcopy CONIZATION CERVIX W/WO D&C RPR ELTRD EXC 01/1992 CONE BX, focal atypia EGD 03/31/2015 Dr. Esteban-HH. D2-unremarkable. Stomach body Bx-mild reactive gastropathy, HP negative. Stomach polyps-fundic gland. EGD 12/29/2017 Dr. Esteban-small HH. Multiple gastric polyps-. Non-bleeding erosive gastropathy. Bilious gastric fluid. EGD 2019 EGD DIAGNOSTIC 11/01/2022 FIBROSCAN 03/31/2020 S3, F4 LIG/TRNSXJ FLP TUBE ABDL/VAG APPR UNI/BI history of Tubal ligation LIVER BIOPSY 02/21/2002 hepatic steatosis, moderate and diffuse. Mild portal fibrosis with chronic non- specific inflammation no evidence of cirrhosis. MASTEC PARTIAL W AXILL NODE REMOV 06/1997 left - had radiation and chemo MRI BREAST BIOPSY 1996 excisional Breast BX, BREAST CANCER, clinical stage1 infiltrating carcinoma left breast PAST SURGICAL HISTORY OF 07/2008 had "fatty tumor" removed from back PAST SURGICAL HISTORY OF 01/02/2012 excision perianal lesion-invasive moderately differentiated squamous cell CA PAST SURGICAL HISTORY OF 08/29/2018 Excision of 5 x 6 cm posterior back mass, PAST SURGICAL HISTORY OF Left scope knee PAST SURGICAL HISTORY OF Partial thyroidectomy THYROIDECTOMY TOTAL/COMPLETE 1972 Current Outpatient Medications Medication Sig Dispense Refill sodium chloride 0.9 %, flush, (BD POSIFLUSH) syringe Inject 2-10 mL intravenously once daily. metroNIDAZOLE (FLAGYL) 500 mg/100 mL in NaCl (iso-osmotic) Inject 500 mg intravenously every 8 hours. cefTRIAXone sodium (ROCEPHIN) 2 gram solr Inject 2 g intravenously once daily for 6 days. 12 g 0 losartan (COZAAR) 50 mg tablet Take 50 mg by mouth once daily. metoprolol tartrate, short acting, (LOPRESSOR) 25 mg tablet Take 25 mg by mouth once daily. 1/2 tab furosemide (LASIX) 40 mg tablet Take 1 tablet by mouth once daily. 90 tablet cefTRIAXone (ROCEPHIN) 2 g in D5W 100 mL Vial-Bag Inject 100 mL intravenously every 24 hours for 6 days. oxyCODONE IR (ROXICODONE) 5 mg immediate release tablet Take 1 tablet by mouth every 8 hours as needed for pain (ONLY FOR SEVERE PAIN) for up to 5 days. 5 tablet 0 sucralfate (CARAFATE) 100 mg/mL suspension Take 10 mL by mouth two times a day. Take on empty stomach and avoid eating or drinking for 30 mins after taking. (Patient taking differently: Take 1 g by mouth as needed. Take on empty stomach and avoid eating or drinking for 30 mins after taking.) 1800 mL 3 tirzepatide (MOUNJARO) 7.5 mg/0.5 mL pen injector Inject 7.5 mg subcutaneously one time a week. 2 mL 5 levothyroxine (SYNTHROID) 200 mcg tablet Take one tablet Monday through Monday,and half a pill on Saturdays and none on Sundays. 90 tablet 3 ONETOUCH ULTRA TEST test strip Use as directed to check glucose once daily. E11.9 100 Each 3 ONETOUCH ULTRASOFT LANCETS Use as directed to check glucose once daily.E11.9 100 Each 3 Blood-Glucose Meter (ONETOUCH ULTRA2 METER) monitoring kit Use to test blood sugar daily, DX: E11.9, NIDDM 1 Each 0 omeprazole (PRILOSEC) 40 mg capsule TAKE 1 CAPSULE BY MOUTH ONCE DAILY 90 capsule 1 losartan (COZAAR) 25 mg tablet Take 0.5 tablets by mouth once daily. (Patient not taking: Reported on 03/21/2025) 45 tablet 3 flecainide (TAMBOCOR) 100 mg tablet Take 1 tablet by mouth every 12 hours. 180 tablet 3 apixaban (ELIQUIS) 5 mg tab(s) Take 1 tablet by mouth twice daily. 180 tablet 3 potassium chloride (K-TAB) 10 mEq tablet Take 1 tablet by mouth once daily. 90 tablet 3 traMADol (ULTRAM) 50 mg tablet Take 1 tablet by mouth as needed for pain. albuterol HFA (PROVENTIL HFA, VENTOLIN HFA) 90 mcg/actuation inhaler as needed for wheezing/shortness of breath. golimumab (SIMPONI ARIA INTRAVENOUS) Inject intravenously every 8 weeks. 2mg/kg (242mg) CPAP celecoxib (CELEBREX) 200 mg capsule Take 1 capsule by mouth once daily. No current facility-administered medications for this visit. ALLERGIES Allergen Reactions Adhesive Tape rash Avelox [Moxifloxaci* Heart race Biaxin [Clarithromy* Hives, GI Upset Eryc [Erythromycin] Swelling Metformin GI Upset Throwing up, Diarrhea Penicillins Quinolones Avelox Remicade [Inflixima* Shortness of Breath Spironolactone Intolerance Headaches Sutures Other: See Comments Suture do not dissolve Demerol [Meperidine* Other: See Comments Arm swelled up locally and turned red. FAMILY HISTORY Problem Relation Age of Onset Breast Cancer Maternal Grandmother Breast Cancer Paternal Grandmother Cancer Paternal Grandfather bone cancer Prostate Cancer Paternal Grandfather Coronary Artery Disease Father Kidney Disease Father Diabetes Other mat grt grdf Liver Cancer Brother Hypertension Mother No Known Problems Daughter Diabetes Son Heart Brother Heart Brother Colon Cancer No Family History other (Blood Clot) No Family History Social History Tobacco Use Smoking status: Former Current packs/day: 0.00 Average packs/day: 1 pack/day for 15.0 years (15.0 ttl pk-yrs) Types: Cigarettes Start date: 09/11/1974 Quit date: 09/11/1989 Years since quittin.5 Passive exposure: Never Smokeless tobacco: Never Vaping Use Vaping status: Never Used Substance Use Topics Alcohol use: No Comment: occasional, rare Drug use: Never Physical Exam: LMP 03/11/1998 General Appearance: Well appearing, alert, in no acute distress, well-hydrated, well nourished. Abdomen: soft ND NT Anorectal: External exam reveals: see below Telecommunication Engineer present: yes The sensitive examination was discussed with the Patient or Patient's Authorized Apiarist. Asapplicable, any other physician, advance practice provider, medical student, or other health professional student that will be observing or involved in the sensitive examination for educational or training purposes was discussed with the Patient or Authorized Apiarist. The Patient or Authorized Apiarist has agreed to proceed with the sensitive examination. (Sensitive examination includes inspection and/or palpation of the breasts, pelvis, prostate and anorectal regions) Assessment Assessment and Plan: Alexandra Bella is a 69 year old female that had a prior TAMIS for recal cancer in 2012. She hasnow had smoldering and recurrent diverticulitis and is being recommended for laparoscopic sigmoid colectomy. She has an IVC filter and is on Eliquis for Afib. After cardiology clearance and anti-coagulation management is addressed we will plan a HALS sigmoid coelctomy. Medical Decision Making: Data Reviewed: Tests & Documents Reviewed/ordered: Review of prior operative reports I have independently interpreted: CT Abdomen, CT Pelvis I have discussed Alexandra Bella's treatment plan and/or results with . Marlon Cesar MD Colorectal Surgery documented in this encounter[facility] [place] NoteHNO ID: [id number] Author: MARLON CESAR MD Service: ? Author Type: Physician Type: Progress Notes Filed: 04/07/2025 08:28 Note Text: COLORECTAL SURGERY March 28, 2025 Alexandra Bella This consult was requested by Dr. Rosy Esteban and my final recommendations will be communicated to the requesting health care provider by way of the shared medical record for internal providers or letter via the [employer] Postal Service for external providers. Recording using xiao qu wu you software for draft documentation of the visit was discussed with the patient/authorized sales representative publications; all questions welcomed and answered. Patient/authorized sales representative publications agreed to proceed Chief Complaint: diverticulitis History of Present Illness: Alexandra Bella is a 69 year old female who presents to the office for evaluation of diverticulitis. She was recently admitted to the hospital on 03/17/25 for acute diverticulitis and started on IV antibiotics. Infectious disease recommended continuing the IV antibiotics at home so a PICC line was placed and home health care was started. PMH: Breast Cancer s/p partial left mastectomy, Colon Cancer, CHF, Endocarditis, GERD, Hypertension, Hyperlipidemia, Hypothyroidism, IBS, pAF (Eliquis and Flecainide), MARILIA, and RA. CT abdomen/pelvis on 03/17/25: Inflammatory changes surrounding a 2 cm outpouching in the mid sigmoid colon (2:99) suggestive of diverticulitis. It is difficult to assess for presence of intramural abscess due to lack of IV contrast. Trace free fluid and fat stranding in the left pelvis Colonoscopy on 11/01/[address] Rosy Esteban - The examined portion of the ileum was normal. - Mild diverticulosis in the sigmoid colon. There was evidence of diverticular spasm. Asya-diverticular erythema was seen. Petechia were visualized in association with the diverticular opening. There was no evidence of diverticular bleeding. - The examination was otherwise normal. - The distal rectum and anal verge are normal on retroflexion view. - Biopsies were taken with a cold forceps from the right colon and left colon for evaluation of microscopic colitis. Pathology: Colon, right, biopsy: - Colonic mucosa with no significant pathologic change. Colon, left, biopsy: - Colonic mucosa with no significant pathologic change PAST MEDICAL HISTORY Diagnosis Date Acute deep vein thrombosis (DVT) of popliteal vein of left lower extremity (HCC) Four DVT's last one 20 years ago- control- and after fracture Asymptomatic postmenopausal status (age-related) (natural) 03/2000 LMP 03/2000 CHF (congestive heart failure) (HCC) Colon cancer (HCC) 2018 Colorectal cancer (HCC) Endocarditis 2017 Essential hypertension 08/24/2018 Gastroesophageal reflux disease without esophagitis 08/24/2018 GERD (gastroesophageal reflux disease) Irritable bowel syndrome Irritable bowel Syndrome Kidney stones 2004 Left-sided chest wall pain 07/17/2016 Multiple gastric ulcers 2020 MARILIA (obstructive sleep apnea) 08/24/2018 Other hyperlipidemia 08/24/2018 Paroxysmal atrial fibrillation (HCC) Personal history of malignant neoplasm of breast 1996 1996 Breast cancer, clinical stage 1 infiltrating carcinoma left breast Phlebitis and thrombophlebitis of other deep vessels of lower extremities Phlebitis Phlebitis and thrombophlebitis of other deep vessels of lower extremities history of 3 DVTs Left Leg PMH - PAST MEDICAL HISTORY OF 09/1991 pap abnormal cells derived from serve dysplasia PMH - PAST MEDICAL HISTORY OF 11/1991 pap moderate - severe dysplasia Postoperative hypothyroidism 08/24/2018 Pre-diabetes Rheumatoid arthritis (HCC) 08/24/2018 Shingles Thyroid disease PAST SURGICAL HISTORY Procedure Laterality Date CARDIAC CATH 2017 CHOLECYSTECTOMY 2000 COLONOSCOPY 11/08/2011 Dr. Esteban-Random Bx-unremarkable. Sigmoid Bx-focal hyperplastic changes. COLONOSCOPY 03/31/2015 Dr. Esteban-evidence of large scar in the perianal area secondary to resection of SCC 2011. Random Bx's-unremarkable. COLONOSCOPY 04/28/2020 Dr. Esteban-bilious gastric fluid. Bile gastritis. Antrum Bx-unremarkable, HP negative. GEJ Bx-mild inflammation. COLONOSCOPY DIAGNOSTIC 11/01/2022 COLPOSCOPY CERVIX UPPER/ADJACENT VAGINA 12/1991 Colposcopy CONIZATION CERVIX W/WO DANDC RPR ELTRD EXC 01/1992 CONE BX, focal atypia EGD 03/31/2015 Dr. Esteban-HH. D2-unremarkable. Stomach body Bx-mild reactive gastropathy, HP negative. Stomach polyps-fundic gland. EGD 12/29/2017 Dr. Esteban-small HH. Multiple gastric polyps-. Non-bleeding erosive gastropathy. Bilious gastric fluid. EGD 2019 EGD DIAGNOSTIC 11/01/2022 FIBROSCAN 03/31/2020 S3, F4 LIG/TRNSXJ FLP TUBE ABDL/VAG APPR UNI/BI history of Tubal ligation LIVER BIOPSY 02/21/2002 hepatic steatosis, moderate and diffuse. Mild portal fibrosis with chronic non-specific inflammation no evidence of cirrhosis. MASTEC PARTIAL W AXI (more content not included)...[facility] 03-28-2025 NoteEducation ([facility]) ALEXANDRA BELLA ([id number]) 1955 F Date Time Provider Department 03/28/25 MATEUS LOBO [facility] Reason for Visit: Diverticulitis [271] During your visit today, we recorded the following information about you: Allergies As of Date: 03/28/2025 Noted Allergy Reaction ADHESIVE TAPE 01/07/2002 Comments: rash AVELOX (MOXIFLOXACIN HCL) 02/16/2009 Comments: Heart race BIAXIN (CLARITHROMYCIN) 02/17/2009 4 - Hives 8 - GI Upset ERYC (ERYTHROMYCIN) 02/16/2009 7 - Swelling METFORMIN 05/25/2022 8 - GI Upset Comments: Throwing up, Diarrhea PENICILLINS 07/07/2003 QUINOLONES 07/12/2004 Comments: Avelox REMICADE (INFLIXIMAB) 10/21/2020 12 - Shortness of Breath SPIRONOLACTONE 05/14/2020 5 - Intolerance Comments: Headaches SUTURES 11/28/2023 14 - Other: See Comments Comments: Suture do not dissolve DEMEROL (MEPERIDINE (PF)) 03/14/2012 14 - Other: See Comments Comments: Arm swelled up locally and turned red. Date Reviewed: 03/28/2025 Reviewed by: Manju Collier MA - Fully Assessed Prescriptions as of 03/31/2025 - neomycin 500 mg tablet Take 2 tablets by mouth as directed. Take 2 tablet at 6pm, 7pm, and 11pm the evening prior to surgery. - metroNIDAZOLE (FLAGYL) 500 mg tablet Take 1 tablet by mouth three times a day. Take 1 tablet at 6pm, 7pm, and 11pm, the evening prior to surgery. - metroNIDAZOLE (FLAGYL) 500 mg/100 mL in NaCl (iso-osmotic) Inject 100 mL intravenously every 8 hours for 7 days. - losartan (COZAAR) 50 mg tablet Take 50 mg by mouth once daily. - metoprolol tartrate, short acting, (LOPRESSOR) 25 mg tablet Take 25 mg by mouth once daily. 1/2 tab - furosemide (LASIX) 40 mg tablet Take 1 tablet by mouth once daily. - sucralfate (CARAFATE) 100 mg/mL suspension Take 10 mL by mouth two times a day. Take on empty stomach and avoid eating or drinking for 30 mins after taking. - tirzepatide (MOUNJARO) 7.5 mg/0.5 mL pen injector Inject 7.5 mg subcutaneously one time a week. - levothyroxine (SYNTHROID) 200 mcg tablet Take one tablet Monday through Monday,and half a pill on Saturdays and none on Sundays. - ONETOUCH ULTRA TEST test strip Use as directed to check glucose once daily. E11.9 - ONETOUCH ULTRASOFT LANCETS Use as directed to check glucose once daily.E11.9 - Blood-Glucose Meter (ONETOUCH ULTRA2 METER) monitoring kit Use to test blood sugar daily, DX: E11.9, NIDDM - omeprazole (PRILOSEC) 40 mg capsule TAKE 1 CAPSULE BY MOUTH ONCE DAILY - losartan (COZAAR) 25 mg tablet Take 0.5 tablets by mouth once daily. - flecainide (TAMBOCOR) 100 mg tablet Take 1 tablet by mouth every 12 hours. - apixaban (ELIQUIS) 5 mg tab(s) Take 1 tablet by mouth twice daily. - potassium chloride (K-TAB) 10 mEq tablet Take 1 tablet by mouth once daily. - traMADol (ULTRAM) 50 mg tablet Take 1 tablet by mouth as needed for pain. - albuterol HFA (PROVENTIL HFA, VENTOLIN HFA) 90 mcg/actuation inhaler as needed for wheezing/shortness of breath. - golimumab (SIMPONI ARIA INTRAVENOUS) Inject intravenously every 8 weeks. 2mg/kg (242mg) - CPAP - celecoxib (CELEBREX) 200 mg capsule Take 1 capsule by mouth once daily. Encounter Status:Closed by MATEUS LOBO on 03/31/25[facility] 03[facility] Telephone encounter Note* Telephone Encounter - Kwasi Cortes RN - 03/26/2025 4:52 PM EDT [place] Team: We received an email that this patient may have her IV PICC line removed om 03/27/25. I just wanted to mention, her Flagyl was not started until . The order reads q 8 hours x7 days beginning 03/24-03/31 (which is confusing.) She will have 6 doses left by tomorrow am. The Ceftriaxone 2 GM daily x6 days from 03/21-03/27/25 should end 03/27. Are we supposed to stop the Flagyl and pull the PICC tomorrow after the last dose of Ceftriaxone? Even though she is in the middle of her Flagyl therapy? Please clarify. Thank you! [facility] Work Phone: [phone]) 680-994207-16-2025 Miscellaneous Notes* Telephone Encounter - Kwasi Cortes RN - 03/26/2025 4:52 PM EDT [place] Team: We received an email that this patient may have her IV PICC line removed om 03/27/25. I just wanted to mention, her Flagyl was not started until . The order reads q 8 hours x7 days beginning 03/24-03/31 (which is confusing.) She will have 6 doses left by tomorrow am. The Ceftriaxone 2 GM daily x6 days from 03/21-03/27/25 should end 03/27. Are we supposed to stop the Flagyl and pull the PICC tomorrow after the last dose of Ceftriaxone? Even though she is in the middle of her Flagyl therapy? Please clarify. Thank you! documented in this encounterSelect [facility] [place]07-16-2025 Miscellaneous Notes* CARE COORDINATION - Kwasi Cortes RN - 03/26/2025 4:45 PM EDT SN placed a telephone encounter out to [facility] Pharmacy and Dr. Manley's team for clarification of IV Therapy stop orders. Patient currently has IV Ceftriaxone and IV Flagyl running. Ths SN received an email from [facility] that the CoPat stop will be honored and the PICC line is to be pulled on 03/27 (This is when the Ceftriaxone is complete.) However, the patient still has 6 doses of Flagyl in the home with a stop date of 03/31. This SN requesting further clarification of the IV Therapy orders from Dr. Manley's team as well as [facility]. Clarification per pharmacy, patient has transitioned to "oral" Flagyl. Proceed with PICC discontinuation after completion of IV doses on 03/27. SN visit has been scheduled for 03/28 PICC removal. documented in this encounterSelect [facility] [place]07-16-2025 Patient's home Note* CARE COORDINATION - Kwasi Cortes RN - 03/26/2025 4:45 PM EDT SN placed a telephone encounter out to [facility] Pharmacy and Dr. Manley's team for clarification of IV Therapy stop orders. Patient currently has IV Ceftriaxone and IV Flagyl running. Ths SN received an email from [facility] that the CoPat stop will be honored and the PICC line is to be pulled on 03/27 (This is when the Ceftriaxone is complete.) However, the patient still has 6 doses of Flagyl in the home with a stop date of 03/31. This SN requesting further clarification of the IV Therapy orders from Dr. Manley's team as well as [facility]. Clarification per pharmacy, patient has transitioned to "oral" Flagyl. Proceed with PICC discontinuation after completion of IV doses on 03/27. SN visit has been scheduled for 03/28 PICC removal. [facility] Work Phone: [phone]) 721-889407-16-2025 Telephone encounter Note* Telephone Encounter - Jonathan Silva RPh - 03/26/2025 1:12 PM EDTSummary: Opened in error Opened in error [facility]07-16-2025 Miscellaneous Notes* Telephone Encounter - Jonathan Silva RPh - 03/26/2025 1:12 PM EDTSummary: Opened in error Opened in error documented in this encounterSelect [facility] [place]-16-2025 Telephone encounter Note * Telephone Encounter - Martine Díaz LPN - 03/26/2025 12:15 PM EDT March 26 cmp reviewed in [employer], no changes Elevated but improved: AST 67 (93), ALT 54 (62) Orders given to [facility] with [facility] to honor tomorrow's stop date and the picc line can be removed after the last dose. Alexandra was also made aware. [facility]-16-[facility]25 Miscellaneous Notes* Telephone Encounter - Martine Díaz LPN - 03/26/2025 12:15 PM EDT March 26 cmp reviewed in [employer], no changes Elevated but improved: AST 67 (93), ALT 54 (62) Orders given to Jonathan with [facility] to honor tomorrow's stop date and the picc line can be removed after the last dose. Alexandra was also made aware. * Telephone Encounter - Martine Díza LPN - 03/25/2025 1:41 PM EDT Per Robin--Repeat labs tomorrow and if worse, then stop antibiotics one day sooner Orders given to Jonathan with [facility] to obtain a repeat CMP tomorrow * Telephone Encounter - Martine Díaz LPN - 03/24/2025 1:33 PM EDT SHELLIE Manley--Please see the attached copat and emails below on Alexandra Jena March 24 abn labs: AST 93 (14), ALT 62 (17) The stop date is * Telephone Encounter - Martine Díaz LPN - 03/21/2025 3:36 PM EDT SHELLIE Manley--Please see the attached copat on Alexandra Bella. She was d/c to home yesterday on Ceftriaxone and PO Flagyl. The nurse called stating the PO Flagyl is tearing up her stomach and wants to know if we can have it switched to IV? If yes, what is the correct dosing info? Per Robin--OK to change to IV Flagyl. Dose is the same at 500 mg IV three times a day. Same stop date. Above orders given to Davin with [facility]. Alexandra was also notified. VM left for the nurse, Betsy. * Telephone Encounter - Zuly Aguilera RN - 03/20/2025 6:39 PM EDTSummary: COPAT ACTION-FOR IDC USE ONLY Images from the original note were not included. 03/20/2025 11:30 AM Elmer Manley [place] PROVIDER ADULT [id number] Patient Info Patient Name Sex Alexandra Bella ([id number]) Female 1955 Encounter Notes Progress Notes by Elmer Manley MD, encounter date 03/20/2025: Progress Notes [facility] Outpatient Parenteral Antimicrobial Therapy (OPAT) Start Form Patient Info Patient MRN Patient Name Address Date of [id number] Alexandra Bella [address] [facility] [id number] 1955 Start Date 03/20/[address] [facility] Diagnosis Group Diagnosis GI/Hepatobiliary/Peritoneal: Colitis Micro-organism CULTURE NEGATIVE IV Antibiotics Antibiotic Dose Frequency Stop Date Ceftriaxone 2 grams every 24 hours 03/27/2025 Oral Antibiotics Antibiotic Dose Frequency Stop Date Metronidazole 500 mg every 8 hours 03/27/2025 Lab Monitoring Plan Labs Frequency While on CBC/diff Creatinine Liver Function Tests every Monday every Monday every Monday Ceftriaxone Ceftriaxone Ceftriaxone OPAT Pharmacy Consult Yes Cath Care Protocol LINE CARE PER PROTOCOL: Change line dressing weekly and as needed. *Must use medicated disc (biopatch) or tegaderm CHG (chorhexedine gluconate) gel pad over insertionsite and cover with transparent dressing* When the patient is on an intermittent IV antibiotic dosing schedule: [facility] method: 1) Administer normal saline 5ml IV to port. 2) Infuse IV antibiotic as ordered. 3) Administer normal saline 5ml IV to port. Labs may be drawn on Monday if Monday is a holiday. 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 Pure hypercholesterolemia Type 2 diabetes mellitus with diabetic polyneuropathy, without long-term current use of insulin Obesity, Class III, BMI >= 40 Sepsis Follow up Provider Follow up date/time Appointment type Elmer Manley MD No Follow Up Provider Monitoring Treatment Course Elmer Manley MD Address [address] [place], [place] [id number] Prescribing Provider's signature - electronically signed by Elmer Manley MD on 03/20/25 at 11:31 AM documented in this encounterSelect [facility] [place]-2025 Telephone encounter Note * Telephone Encounter - Jane Martinez RN - 03/26/2025 8:20 AM EDT Patient complaining of increased pain to R lower back into groin area - 6/10 and having nausea vomiting and chills this am. Patient is afebrile and vitals signs WNL. She complains of extreme fatigue and just not feeling well in general. Please advise. Jane Win [facility] Work Phone: [phone]) 318-146907-16-2025 Miscellaneous Notes* HH SN IV - Jane Martinez RN - 03/26/2025 8:09 AM EDT SITUATION: Skilled nurse visit. only patient present during today's visit. patient reports the following since last homecare visit: Allergies--reviewed Medications--reviewed current medications Falls--None BACKGROUND: Reason for Home Care: Ulcerative (chronic) pancolitis without complications ASSESSMENT: SN instructed to come in. Sitting up on couch Patient appears in no acute distress. IV: Prison IV visit completed for IV administration education: During visit, patient demonstrated independence with IV infusion and requires no further visits for IV infusion instructions. and blood work: obtained VISIT: Patient/CG concerns verbalized today: back pain, N/V/D Vitals (see flow sheet for details): stable SN findings today: Patient complaining of increased pain to R lower back into groin area - 6/10 andhaving nausea vomiting and chills this am. Patient is afebrile and vitals signs WNL. She complains of extreme fatigue and just not feeling well in general. She has heating pad to back. Has not eaten yet today. Last BM/emesis about an hour ago. She states she has some meds for nausea and diarrhea but cannot recall names. Vitals stable. Patient became more talkative throughout visit and was able tosit up and perform IV admin. She feels she can do independently from here on it and will call [facility] if any issues or concerns prior to next visit. CMP obtained via PICC. ID and GI MDs updated on above symptoms via [employer]. Encouraged patient to take Tylenol for pain- anti- diarrhea and anti-emeticand try to slowly drink fluids and eat small amounts of bland foods. Also encouraged rest and monitoring for fever. She has appt 03/28 with Colorectal. Patient will disconnect and flush PICC after infusion complete. See assessment & intervention summary for education details and skills performed. Plan of care, progress towards goals, and visit frequency reviewed with patient. Patient demonstrated a need for further skilled SN services for chronic disease management & education, medication education, infusion care, labs and infection control/prevention Current Discharge plan: self-care and family support RECOMMENDATION: Next visit to focus on (be specific): PICC care, labs, CP and GI assess, follow up on colorectal appt, RUSSELL rebolledo documented in this encounterSelect [facility] [place]25 Patient's home Note* SN IV - Jane Martinez RN - 03/26/2025 8:09 AM EDT SITUATION: Skilled nurse visit. only patient present during today's visit. patient reports the following since last homecare visit: Allergies--reviewed Medications--reviewed current medications Falls--None BACKGROUND: Reason for Home Care: Ulcerative (chronic) pancolitis without complications ASSESSMENT: SN instructed to come in. Sitting up on couch Patient appears in no acute distress. IV: Prison IV visit completed for IV administration education: During visit, patient demonstrated independence with IV infusion and requires no further visits for IV infusion instructions. and blood work: obtained VISIT: Patient/CG concerns verbalized today: back pain, N/V/D Vitals (see flow sheet for details): stable SN findings today: Patient complaining of increased pain to R lower back into groin area - 6/10 andhaving nausea vomiting and chills this am. Patient is afebrile and vitals signs WNL. She complains of extreme fatigue and just not feeling well in general. She has heating pad to back. Has not eaten yet today. Last BM/emesis about an hour ago. She states she has some meds for nausea and diarrhea but cannot recall names. Vitals stable. Patient became more talkative throughout visit and was able tosit up and perform IV admin. She feels she can do independently from here on it and will call [facility] if any issues or concerns prior to next visit. CMP obtained via PICC. ID and GI MDs updated on above symptoms via [employer]. Encouraged patient to take Tylenol for pain- anti- diarrhea and anti-emeticand try to slowly drink fluids and eat small amounts of bland foods. Also encouraged rest and monitoring for fever. She has appt 03/28 with Colorectal. Patient will disconnect and flush PICC after infusion complete. See assessment & intervention summary for education details and skills performed. Plan of care, progress towards goals, and visit frequency reviewed with patient. Patient demonstrated a need for further skilled SN services for chronic disease management & education, medication education, infusion care, labs and infection control/prevention Current Discharge plan: self-care and family support RECOMMENDATION: Next visit to focus on (be specific): PICC care, labs, CP and GI assess, follow up on colorectal appt, amaury, NVD [facility] Work Phone: [phone] 750-241707-15-2025 Telephone encounter Note* Telephone Encounter - Martine Díaz LPN - 03/25/2025 1:41 PM EDT Per Robin--Repeat labs tomorrow and if worse, then stop antibiotics one day sooner Orders given to Jonathan with [facility] to obtain a repeat CMP tomorrow [facility]07-15-2025 Miscellaneous Notes* SN IV - Jane Martinez, RN - 03/25/2025 8:44 AM EDT SITUATION: Skilled nurse visit. only patient present during today's visit. 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 Patient appears in no acute distress. IV: Prison IV visit completed for IV administration education: During visit, patient demonstrated need for continued IV infusion education and needs further instructions focused needs 1 more visit in am to work on priming tubing- set up. She will do all steps and SN will observe. VISIT: Patient/CG concerns verbalized today: back pain, indigestion Vitals (see flow sheet for details): stable SN findings today: Patient very pleasant but still having alot of anxiety regarding IV infusion. She did all hands on but did have alot of questions. Emotional support given. She feels comfortable todo doses the rest of the day but is nervous on priming tubing and requests one more visit in am. Extension tubing added to red lumen and instructed to flush once daily. Patient verbalized understanding. See assessment & intervention summary for education details and skills performed. Plan of care, progress towards goals, and visit frequency reviewed with patient. Patient demonstrated a need for further skilled SN services for chronic disease management & education and medication education, infusion, labs and infection prevention. Current Discharge plan: self-care and family support RECOMMENDATION: Next visit to focus on (be specific): Last edu visit tomorrow am [facility] [place] Patient's home Note* SN IV - Jane Martinez RN - 03/25/2025 8:44 AM EDT SITUATION: Skilled nurse visit. only patient present during today's visit. 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 Patient appears in no acute distress. IV: Prison IV visit completed for IV administration education: During visit, patient demonstrated need for continued IV infusion education and needs further instructions focused needs 1 more visit in am to work on priming tubing- set up. She will do all steps and SN will observe. VISIT: Patient/CG concerns verbalized today: back pain, indigestion Vitals (see flow sheet for details): stable SN findings today: Patient very pleasant but still having alot of anxiety regarding IV infusion. She did all hands on but did have alot of questions. Emotional support given. She feels comfortable todo doses the rest of the day but is nervous on priming tubing and requests one more visit in am. Extension tubing added to red lumen and instructed to flush once daily. Patient verbalized understanding. See assessment & intervention summary for education details and skills performed. Plan of care, progress towards goals, and visit frequency reviewed with patient. Patient demonstrated a need for further skilled SN services for chronic disease management & education and medication education, infusion, labs and infection prevention. Current Discharge plan: self-care and family support RECOMMENDATION: Next visit to focus on (be specific): [facility] Work Phone: [phone]) 171-136507-14-2025 Miscellaneous Notes* SN IV - Joy Katz RN - 03/24/2025 3:45 PM EDT SITUATION: Skilled nurse visit. only patient present during today's visit. patient reports the following since last homecare visit: Allergies--reviewed Medications--reviewed current medications Falls--None ASSESSMENT: SN greeted at door by patient no DME and demonstrates stable gait. Patient appears in no acute distress. IV: Prison IV visit completed for IV administration education: During visit, patient demonstrated need for continued IV infusion education and needs further instructions focused on set up and starter cup powder mixer procedure. VISIT: Patient/CG concerns verbalized today: none Vitals (see flow sheet for details): declined- done this AM SN findings today: Pt appears anxious about set up process. Pt had previously used the dial-a-flow deviced but this was removed this morning so patient felt off with starter cup powder mixer procedure and not confident. SN reapplied the dial-a-flow per pt request as this was easier for the pt than drip counting. SNinstructed pt to prime line since dial-a-flow was added and with SN instruction pt was able to perform. Pt forgot a few steps throughout and needed SN queing. Pt shown how to verify drip rate with dial-a-flow and pt able to perform. Pt and SN feel a morning visit will be benficial as pt will need full new set up with new dial-a-sylvie so SN visit added for further IV education. Pt needing extension a dded to red lumen for daily flushing as pt was not aware she needed to do this. SN stayed for remainder of infusion adn ensure pt is confident with disconnect. None available in pt pharmacy packagingand this SN was out so SN asked nurse seeing pt tomorrow to bring and she states she will. No further questions or concerns at this time. See assessment & intervention summary for education details and skills performed. Plan of care, progress towards goals, and visit frequency reviewed with patient. Patient demonstrated a need for further skilled SN services for chronic disease management & education and infusion care Current Discharge plan: self-care and family support RECOMMENDATION: Next visit to focus on (be specific): IV teaching starter cup powder mixer [facility] [place] Patient's home Note* SN IV - Joy Katz RN - 03/24/2025 3:45 PM EDT SITUATION: Skilled nurse visit. only patient present during today's visit. patient reports the following since last homecare visit: Allergies--reviewed Medications--reviewed current medications Falls--None ASSESSMENT: SN greeted at door by patient no DME and demonstrates stable gait. Patient appears in no acute distress. IV: Prison IV visit completed for IV administration education: During visit, patient demonstrated need for continued IV infusion education and needs further instructions focused on set up and starter cup powder mixer procedure. VISIT: Patient/CG concerns verbalized today: none Vitals (see flow sheet for details): declined- done this AM SN findings today: Pt appears anxious about set up process. Pt had previously used the dial-a-flow deviced but this was removed this morning so patient felt off with starter cup powder mixer procedure and not confident. SN reapplied the dial-a-flow per pt request as this was easier for the pt than drip counting. SNinstructed pt to prime line since dial-a-flow was added and with SN instruction pt was able to perform. Pt forgot a few steps throughout and needed SN queing. Pt shown how to verify drip rate with dial-a-flow and pt able to perform. Pt and SN feel a morning visit will be benficial as pt will need full new set up with new dial-a-sylvie so SN visit added for further IV education. Pt needing extension a dded to red lumen for daily flushing as pt was not aware she needed to do this. SN stayed for remainder of infusion adn ensure pt is confident with disconnect. None available in pt pharmacy packagingand this SN was out so SN asked nurse seeing pt tomorrow to bring and she states she will. No further questions or concerns at this time. See assessment & intervention summary for education details and skills performed. Plan of care, progress towards goals, and visit frequency reviewed with patient. Patient demonstrated a need for further skilled SN services for chronic disease management & education and infusion care Current Discharge plan: self-care and family support RECOMMENDATION: Next visit to focus on (be specific): IV teaching starter cup powder mixer [facility] Work Phone: [phone] 365-108207-14-2025 Telephone encounter Note* Telephone Encounter - Corrie Alejandro RN - 03/24/2025 3:39 PM EDT Please review and advise. [facility]07-14-2025 Miscellaneous Notes* Telephone Encounter - Corrie Alejandro RN - 03/24/2025 3:39 PM EDT Please review and advise. * Telephone Encounter - Corrie Alejandro RN - 03/21/2025 10:07 AM EDT Please review and documented [facility] [place] Telephone encounter Note * Telephone Encounter - Martine Díaz LPN - 03/24/2025 1:33 PM EDT SHELLIE Manley--Please see the attached copat and emails below on Alexandra Bella March 24 abn labs: AST 93 (14), ALT 62 (17) The stop date is [facility]07-14-2025 Telephone encounter Note* Telephone Encounter - Mateus Lobo RN - 03/24/2025 10:37 AM EDT Patient scheduled with Dr Cesar on 03/28. [facility]07-14-2025 Miscellaneous Notes* Telephone Encounter - Mateus Lobo RN - 03/24/2025 10:37 AM EDT Patient scheduled with Dr Cesar on 03/28. * Telephone Encounter - Hailey Ocampo RN - 03/24/2025 9:[address] Cesar's team, please call pt to schedule an OV to discuss sigmoidectomy for recurrent diverticulitis. Thank you, Hailey Ocampo RN * Telephone Encounter - Rosy Esteban MD - 03/23/2025 11:12 AM EDT Hailey: She was discharged form [facility] 03/20/2025: Patient was admitted to the hospital for further treatment and evaluation for acute diverticulitis.Patient was started on broad-spectrum IV antibiotics. General surgery and infectious diseases consulted. General surgery recommended outpatient follow-up with colorectal surgery (Dr.Bradley Cesar) for possible sigmoid resection given patient's history of recurrent diverticulitis and rectal cancer. Okay per surgery to restart oral anticoagulation. Recommended continuing medical management of diverticulitis. ID recommended patient should continue with ceftriaxone and Flagyl. Recommended PICC line placement. PICC line was placed. Infectious disease recommended ceftriaxone 2 g every 24 hours and metronidazole 500 mg p.o. every 8 hourly until 03/27/2025. Patient is to have regular lab monitoring with CBC/differential, creatinine/liver function every Monday. Make sure she has an appointment with Dr. Cesar. Rosy Esetban MD * Telephone Encounter - Hailey Ocampo RN - 03/18/2025 1:58 PM EDT Pt is currently admitted to [facility]. Hailey Ocampo RN Per H & P: Acute diverticulitis (POA: Yes) --Presented to [place] ED for evaluation of abdominal pain --CT AP with inflammatory changes surrounding a 2 cm outpouching in the mid sigmoid colon suggestive of diverticulitis although difficult to assess for possible abscess. --IV Rocephin and Flagyl --NPO, IVF --Holding Eliquis --Heparin gtt as below --Pain control --Serial ABD exams --General Surgery consulted * Telephone Encounter - Rosy Esteban MD - 03/18/2025 10:[address]-scan abd/pelvis 03/17/2025: Inflammatory changes surrounding a 2 cm outpouching in the mid sigmoid colon (2:99) suggestive of diverticulitis. It is difficult to assess for presence of intramural abscess due to lack of IV contrast. Trace free fluid and fat stranding in the left pelvis. I suppose she is on oral antibiotics, Hailey: Please verify and needs to be on them x 10 days. Rosy Esteban MD * Telephone Encounter - Ashley Rosario LPN - 03/17/2025 12:01 PM EDT Please review [employer] message and please advise. Thank You Ashley Rosario LPN documented in this [facility] Telephone encounter Note * Telephone Encounter - Hailey Ocampo RN - 03/24/2025 9:[address] Cesar's team, please call pt to schedule an OV to discuss sigmoidectomy for recurrent diverticulitis. Thank you, Hailey Ocampo RN [facility] Work Phone: [phone] Miscellaneous Notes* HH SN IV - Sammie Jordan RN - 03/24/2025 8:20 AM EDT SITUATION: Skilled nurse visit. only patient present during today's visit. patient reports the following since last homecare visit: Allergies--reviewed Medications--reviewed current medications Falls--None BACKGROUND:DM2, CHF, Breast ca, A-fib Reason for Home Care: diverticulitis ASSESSMENT: SN greeted at door by patient no DME and demonstrates stable gait. Patient appears in no acute distress. IV: Prison IV visit completed for IV administration education: During visit, patient demonstrated need for continued IV infusion education and needs further instructions focused on priming tubing., IV dressing change: IV care completed with no issues or concerns noted or reported. and blood work: obtained VISIT: Patient/CG concerns verbalized today: none Vitals (see flow sheet for details): stable SN findings today: During visit patient was anxious. States she has not primed tubing yet during visits. SN had patient spike bag of flagyl medication, then squeeze drip chamber, then when she openedroller clamp, she did this too fast & SN had to quickly stop it, so she would not lose her medication. SN instructed pt to slowly open roller clamp, then instr on counting drip rate. Patient abeba nued to be anxious & wanting another vs today for further instruction, which a visit has already been scheduled. Patient did well with flushing picc pre & post dose with sterile saline. States she feels comfortable with her IV push med, ceftriaxone SN reviewed s/s sepsis, s/s picc infection, safety/fall prevention measures, she verbalizes understanding She cont to weigh self daily, denies s/s exac CHF See assessment & intervention summary for education details and skills performed. Plan of care, progress towards goals, and visit frequency reviewed with patient. Patient demonstrated a need for further skilled SN services for chronic disease management & education, infusion care and labs Current Discharge plan: family support RECOMMENDATION: Next visit to focus on (be specific): IV Instruction documented in this [facility] [place] Patient's home Note* [facility] IV - Sammie Jordan RN - 03/24/2025 8:20 AM EDT SITUATION: Skilled nurse visit. only patient present during today's visit. patient reports the following since last homecare visit: Allergies--reviewed Medications--reviewed current medications Falls--None BACKGROUND:DM2, CHF, Breast ca, A-fib Reason for Home Care: diverticulitis ASSESSMENT: SN greeted at door by patient no DME and demonstrates stable gait. Patient appears in no acute distress. IV: Prison IV visit completed for IV administration education: During visit, patient demonstrated need for continued IV infusion education and needs further instructions focused on priming tubing., IV dressing change: IV care completed with no issues or concerns noted or reported. and blood work: obtained VISIT: Patient/CG concerns verbalized today: none Vitals (see flow sheet for details): stable SN findings today: During visit patient was anxious. States she has not primed tubing yet during visits. SN had patient spike bag of flagyl medication, then squeeze drip chamber, then when she openedroller clamp, she did this too fast & SN had to quickly stop it, so she would not lose her medication. SN instructed pt to slowly open roller clamp, then instr on counting drip rate. Patient abeba nued to be anxious & wanting another vs today for further instruction, which a visit has already been scheduled. Patient did well with flushing picc pre & post dose with sterile saline. States she feels comfortable with her IV push med, ceftriaxone SN reviewed s/s sepsis, s/s picc infection, safety/fall prevention measures, she verbalizes understanding She cont to weigh self daily, denies s/s exac CHF See assessment & intervention summary for education details and skills performed. Plan of care, progress towards goals, and visit frequency reviewed with patient. Patient demonstrated a need for further skilled SN services for chronic disease management & education, infusion care and labs Current Discharge plan: family support RECOMMENDATION: Next visit to focus on (be specific): IV Instruction [facility] Work Phone: [phone]) [phone] Miscellaneous Notes* SN IV - Dalila Burroughs RN - 03/23/2025 3:55 PM EDT SITUATION: Skilled nurse visit. only patient and spouse present during today's visit. patient reports the following since last homecare visit: Allergies--reviewed Medications--reviewed current medications Falls--None BACKGROUND: Reason for Home Care: Diverticulitis of intestine, part unspecified, without perforation or abscesswithout bleeding ASSESSMENT: SN greeted at door by patient no DME and demonstrates stable gait. Patient appears in no acute distress. IV: Prison IV visit completed for IV administration education: During visit, patient demonstrated need for continued IV infusion education and needs further instructions focused on all aspects of infusion process. VISIT: Patient/CG concerns verbalized today: None Vitals (see flow sheet for details): stable SN findings today: Patient A & O x 4, c/o pain in her back, she took tylenol for it during the visit. FBG today was 170. Patient was hands on for infusion process, she demonstrated all the steps correctly. Patient switched from PO flagyl to IV flagyl this morning, it has not populated on the med list yet. Patient reports some diarrhea x2 today, she picked up some yogurt today for probiotics. Reports increasing appetite. Staying hydrated. See assessment & intervention summary for education details and skills performed. Plan of care, progress towards goals, and visit frequency reviewed with patient. Patient demonstrated a need for further skilled SN services for chronic disease management & education, medication education and infusion care, labs Current Discharge plan: self-care and family support RECOMMENDATION: Next visit to focus on (be specific): PICC care, labs, infusion teaching documented in this encounter[facility] [place] Patient's home Note* HH SN IV - Dalila Burroughs RN - 03/23/2025 3:55 PM EDT SITUATION: Skilled nurse visit. only patient and spouse present during today's visit. patient reports the following since last homecare visit: Allergies--reviewed Medications--reviewed current medications Falls--None BACKGROUND: Reason for Home Care: Diverticulitis of intestine, part unspecified, without perforation or abscesswithout bleeding ASSESSMENT: SN greeted at door by patient no DME and demonstrates stable gait. Patient appears in no acute distress. IV: Prison IV visit completed for IV administration education: During visit, patient demonstrated need for continued IV infusion education and needs further instructions focused on all aspects of infusion process. VISIT: Patient/CG concerns verbalized today: None Vitals (see flow sheet for details): stable SN findings today: Patient A & O x 4, c/o pain in her back, she took tylenol for it during the visit. FBG today was 170. Patient was hands on for infusion process, she demonstrated all the steps correctly. Patient switched from PO flagyl to IV flagyl this morning, it has not populated on the med list yet. Patient reports some diarrhea x2 today, she picked up some yogurt today for probiotics. Reports increasing appetite. Staying hydrated. See assessment & intervention summary for education details and skills performed. Plan of care, progress towards goals, and visit frequency reviewed with patient. Patient demonstrated a need for further skilled SN services for chronic disease management & education, medication education and infusion care, labs Current Discharge plan: self-care and family support RECOMMENDATION: Next visit to focus on (be specific): PICC care, labs, infusion teaching [facility] Work Phone: [phone]) [phone] Telephone encounter Note* Telephone Encounter - Rosy Esteban MD - 03/23/2025 11:12 AM EDT Hailey: She was discharged form [facility] 03/20/2025: Patient was admitted to the hospital for further treatment and evaluation for acute diverticulitis.Patient was started on broad-spectrum IV antibiotics. General surgery and infectious diseases consulted. General surgery recommended outpatient follow-up with colorectal surgery (Dr.Bradley Cesar) for possible sigmoid resection given patient's history of recurrent diverticulitis and rectal cancer. Okay per surgery to restart oral anticoagulation. Recommended continuing medical management of diverticulitis. ID recommended patient should continue with ceftriaxone and Flagyl. Recommended PICC line placement. PICC line was placed. Infectious disease recommended ceftriaxone 2 g every 24 hours and metronidazole 500 mg p.o. every 8 hourly until 03/27/2025. Patient is to have regular lab monitoring with CBC/differential, creatinine/liver function every Monday. Make sure she has an appointment with Dr. Cesar. Rosy Esteban MD [facility]07-13-2025 Miscellaneous Notes* HH SN IV - Miracle Schumacher RN - 03/23/2025 8:00 AM EDT SITUATION: Skilled nurse visit. spouse present during today's visit. patient reports the following since last homecare visit: Allergies--reviewed Medications--reviewed current medications Falls--None BACKGROUND: Reason for Home Care: IV antibiotics ASSESSMENT: SN greeted at door by caregiver. Upon entrance patient found in chair Patient appears in no acute distress. IV: Prison IV visit completed for IV administration education: During visit, patient demonstrated need for continued IV infusion education and needs further instructions focused on set up.. VISIT: Patient/CG concerns verbalized today: none Vitals (see flow sheet for details): stable SN findings today: No new or abnormal changes today. Patient seen today for IV education- new IV drip. Nurse walked patient and through steps of set up and take down of IV- they verbalized understanding and took notes as nurse showed them what to do. Patient was hands on at the end with disconnecting and flushing. Patient is confident that she will be independent with this by the end of the day tomorrow. See assessment & intervention summary for education details and skills performed. Plan of care, progress towards goals, and visit frequency reviewed with patient and caregiver. Patient demonstrated a need for further skilled SN services for chronic disease management & education, medication education, infusion care, labs and safety Current Discharge plan: self-care and family support RECOMMENDATION: Next visit to focus on (be specific): PICC CARE- LABS [facility] Patient's home Note* HH SN IV - Miracle Schumacher RN - 03/23/2025 8:00 AM EDT SITUATION: Skilled nurse visit. spouse present during today's visit. patient reports the following since last homecare visit: Allergies--reviewed Medications--reviewed current medications Falls--None BACKGROUND: Reason for Home Care: IV antibiotics ASSESSMENT: SN greeted at door by caregiver. Upon entrance patient found in chair Patient appears in no acute distress. IV: Prison IV visit completed for IV administration education: During visit, patient demonstrated need for continued IV infusion education and needs further instructions focused on set up.. VISIT: Patient/CG concerns verbalized today: none Vitals (see flow sheet for details): stable SN findings today: No new or abnormal changes today. Patient seen today for IV education- new IV drip. Nurse walked patient and through steps of set up and take down of IV- they verbalized understanding and took notes as nurse showed them what to do. Patient was hands on at the end with disconnecting and flushing. Patient is confident that she will be independent with this by the end of the day tomorrow. See assessment & intervention summary for education details and skills performed. Plan of care, progress towards goals, and visit frequency reviewed with patient and caregiver. Patient demonstrated a need for further skilled SN services for chronic disease management & education, medication education, infusion care, labs and safety Current Discharge plan: self-care and family support RECOMMENDATION: Next visit to focus on (be specific): PICC CARE- LABS [facility] Work Phone: [phone] 856-299307-12-2025 Miscellaneous Notes* Miracle Sher IV, RN - 03/22/2025 1:34 PM EDT SITUATION: Skilled nurse visit. spouse present during today's visit. patient reports the following since last homecare visit: Allergies--reviewed Medications--reviewed current medications Falls--None BACKGROUND: Reason for Home Care: IV antibiotics ASSESSMENT: SN greeted at door by caregiver. Upon entrance patient found in chair Patient appears in no acute distress. IV: Prison IV visit completed for IV administration education: During visit, patient demonstrated independence with IV infusion and requires no further visits for IV infusion instructions. VISIT: Patient/CG concerns verbalized today: NONE Vitals (see flow sheet for details): stable SN findings today: No new or abnormal changes. no pain. respirations clear and easy. heart sounds regular. bowel sounds in all quadrants. FLAGYL to be started tomorrow AM per patient request. Patientdid IVP medication on her own with very little verbal cues. Patient does not have any other questions or concerns. Patient told to call office with any questions. See assessment & intervention summary for education details and skills performed. Plan of care, progress towards goals, and visit frequency reviewed with patient. Patient demonstrated a need for further skilled SN services for chronic disease management & education, medication education, infusion care and safety Current Discharge plan: self-care and family support RECOMMENDATION: Next visit to focus on (be specific): IV DRIP EDUCATION documented in this [facility] [place] Patient's home Note* Miracle Sher IV, RN - 03/22/2025 1:34 PM EDT SITUATION: Skilled nurse visit. spouse present during today's visit. patient reports the following since last homecare visit: Allergies--reviewed Medications--reviewed current medications Falls--None BACKGROUND: Reason for Home Care: IV antibiotics ASSESSMENT: SN greeted at door by caregiver. Upon entrance patient found in chair Patient appears in no acute distress. IV: Prison IV visit completed for IV administration education: During visit, patient demonstrated independence with IV infusion and requires no further visits for IV infusion instructions. VISIT: Patient/CG concerns verbalized today: NONE Vitals (see flow sheet for details): stable SN findings today: No new or abnormal changes. no pain. respirations clear and easy. heart sounds regular. bowel sounds in all quadrants. FLAGYL to be started tomorrow AM per patient request. Patientdid IVP medication on her own with very little verbal cues. Patient does not have any other questions or concerns. Patient told to call office with any questions. See assessment & intervention summary for education details and skills performed. Plan of care, progress towards goals, and visit frequency reviewed with patient. Patient demonstrated a need for further skilled SN services for chronic disease management & education, medication education, infusion care and safety Current Discharge plan: self-care and family support RECOMMENDATION: Next visit to focus on (be specific): IV DRIP EDUCATION [facility] Work Phone: [phone] 197-962607-11-2025 Telephone encounter Note* Telephone Encounter - Martine Díaz LPN - 03/21/2025 3:36 PM EDT SHELLIE Manley--Please see the attached copat on Alexandra Bella. She was d/c to home yesterday on Ceftriaxone and PO Flagyl. The nurse called stating the PO Flagyl is tearing up her stomach and wants to know if we can have it switched to IV? If yes, what is the correct dosing info? Per Robin--OK to change to IV Flagyl. Dose is the same at 500 mg IV three times a day. Same stop date. Above orders given to Davin with [facility]. Alexandra was also notified. VM left for the nurseBetsy. [facility] Telephone encounter Note* Telephone Encounter - Betsy Fuentes RN - 03/21/2025 2:00 PM EDT Chasity- Patient was admitted to home care today for IV antibiotics due to Diverticulitis. She expressed concern that she will most likely have surgery in April and with her poor venous access, she asked if she could keep the PICC line until after the surgery. She does not want to have to have another one p laced. I told her I would pass along her concerns. Please advise. Betsy Fuentes RN [facility] Work Phone: [phone] Miscellaneous Notes* Telephone Encounter - Betsy Fuentes RN - 03/21/2025 2:00 PM EDT Chasity- Patient was admitted to home care today for IV antibiotics due to Diverticulitis. She expressed concern that she will most likely have surgery in April and with her poor venous access, she asked if she could keep the PICC line until after the surgery. She does not want to have to have another one p laced. I told her I would pass along her concerns. Please advise. Betsy Fuentes RN [facility] documented in this encounter[facility] [place] Miscellaneous Notes* SN SOC IV - Betsy Fuentes RN - 03/21/2025 12:00 PM EDT SITUATION: Prison SOC IV visit completed today. spouse and daughter also present during today's visit. patient reports the following: Allergies--reviewed Medications--full medication reconciliation completed and reviewed current medications Falls--None DME-Reviewed and added to chart Advance Directives: Patient does have advance directives. BACKGROUND: Discharged/Referral from [facility] on 03/20/25 following treatment for diverticulitis Pertinent referral information:PMH significant for Breast Cancer s/p partial left mastectomy, ColonCancer, CHF, Endocarditis, GERD, Hypertension, Hyperlipidemia, Hypothyroidism, IBS, pAF (Eliquis and Flecainide), MARILIA, RA. Patient presents today for evaluation of abdominal pain. Patient was admitted to the hospital for further treatment and evaluation for acute diverticulitis. She was started on broad-spectrum IV antibiotics. General surgery and infectious diseases consulted. General surgery recommended outpatient follow-up with colorectal surgery (Dr.Bradley Cesar) for possible sigmoid resection given patient's history of recurrent diverticulitis and rectal cancer. Okay per surgery to restart oral anticoagulation. Recommended continuing medical management of diverticulitis. ID recommended patient should continue with ceftriaxone and Flagyl. Recommended PICC line placement. PICC line was placed. Infectious disease recommended ceftriaxone 2 g every 24 hours and metronidazole 500 mgp.o. every 8 hourly until 03/27/2025. Patient's hospital course and need for follow-up were explained to patient who is in understanding. ASSESSMENT: SN greeted at door by caregiver. Upon entrance patient found in chair Patient appears in no acute distress. Patient lives at home with spouse. Home environment: clean and uncluttered. SOC booklet reviewed & completed with patient and consent obtained for Home Care services. Patient/CG concerns verbalized today: none Vitals (see flow sheet for details): stable SN findings today: IV admin completed today. Patient had some hands on time with IV push med. She needs additional teaching. Patient has an extensive bowel HX and HX of cancer. She anticipates havingsurgery in April and asked SN if it would be possible to have the PICC stay in until surgery. She is a very difficult stick and she does not want to have another PICC placed. SN informed her that itwill most likely have to be removed but SN will send a message to ID and GI to see if it is a possibility. Patient reports having very terrible GERD and GI upset from oral Flagyl. She has tolerated IV before and asked if it could be switched. called Dr. Manley's office and spoke to Zuly who states that she will send a message to Dr. Manley to see what he thinks. She had a normal bowel movement today but states that she was having diarrhea in the hospital. No openings to the skin. is intactbut urine is really dark. SN encouraged the patient to stay very well hydrated and encouraged her to take probiotics/ yogurt. She verbalizes understanding. PICC line dressing is intact. Line flushes and has blood return from both lumens. SN applied an extension to one lumen and a new microclave to the other. Instructed her to flush both lumens daily.There seems to be a lot of anxiety over the PICC line. She is afraid that she will have a really hard time with the adhesive as she does have an allergy. SN suggested that maybe she use a tegaderm but if it is in for 6 days, hopefully it will not be an issue. Medications were reviewed. Some issues were noted with medication doses. Patient [facility] did not have the dosing correct on her cardiac meds and she was not sure what the doses were without her own med list which she did not have. SN called Dr. Ruth's office who is her ship scaler with [facility]. Spoke to Tawana and updated med list per their records. No other issues at this time. See intervention summary for education details and skills performed. Plan of care and visit frequency established with patient and caregiver and plan of care agreed upon. Patient demonstrated a need for further skilled SN services for chronic disease management & education, medication education, wound/skin care, infusion care, labs, safety and infection control/prevention RECOMMENDATION: Visit Frequency: 2w1,3w1 Need for additional services: Patient agreeable to N/A referrals. Patient declined PT and OT referrals. Additional concerns to be followed up on: NONE During visit, patient demonstrated need for continued IV infusion education and needs further instructions focused on IV admin and now IV Flagyl. Next visit to focus on (be specific): Patient needs IV teaching. If the PICC is not going to stay in place until surgery and ID gives orders for removal then the patient can be discharged after completion [facility] [place] Patient's home Note* SN SOC IV - Betsy Fuentes RN - 03/21/2025 12:00 PM EDT SITUATION: Prison SOC IV visit completed today. spouse and daughter also present during today's visit. patient reports the following: Allergies--reviewed Medications--full medication reconciliation completed and reviewed current medications Falls--None DME-Reviewed and added to chart Advance Directives: Patient does have advance directives. BACKGROUND: Discharged/Referral from [facility] on 03/20/25 following treatment for diverticulitis Pertinent referral information:PMH significant for Breast Cancer s/p partial left mastectomy, ColonCancer, CHF, Endocarditis, GERD, Hypertension, Hyperlipidemia, Hypothyroidism, IBS, pAF (Eliquis and Flecainide), MARILIA, RA. Patient presents today for evaluation of abdominal pain. Patient was admitted to the hospital for further treatment and evaluation for acute diverticulitis. She was started on broad-spectrum IV antibiotics. General surgery and infectious diseases consulted. General surgery recommended outpatient follow-up with colorectal surgery (Dr.Bradley Cesar) for possible sigmoid resection given patient's history of recurrent diverticulitis and rectal cancer. Okay per surgery to restart oral anticoagulation. Recommended continuing medical management of diverticulitis. ID recommended patient should continue with ceftriaxone and Flagyl. Recommended PICC line placement. PICC line was placed. Infectious disease recommended ceftriaxone 2 g every 24 hours and metronidazole 500 mgp.o. every 8 hourly until 03/27/2025. Patient's hospital course and need for follow-up were explained to patient who is in understanding. ASSESSMENT: SN greeted at door by caregiver. Upon entrance patient found in chair Patient appears in no acute distress. Patient lives at home with spouse. Home environment: clean and uncluttered. SOC booklet reviewed & completed with patient and consent obtained for Home Care services. Patient/CG concerns verbalized today: none Vitals (see flow sheet for details): stable SN findings today: IV admin completed today. Patient had some hands on time with IV push med. She needs additional teaching. Patient has an extensive bowel HX and HX of cancer. She anticipates havingsurgery in April and asked SN if it would be possible to have the PICC stay in until surgery. She is a very difficult stick and she does not want to have another PICC placed. SN informed her that itwill most likely have to be removed but SN will send a message to ID and GI to see if it is a possibility. Patient reports having very terrible GERD and GI upset from oral Flagyl. She has tolerated IV before and asked if it could be switched. called Dr. Manley's office and spoke to Zuly who states that she will send a message to Dr. Manley to see what he thinks. She had a normal bowel movement today but states that she was having diarrhea in the hospital. No openings to the skin. is intactbut urine is really dark. SN encouraged the patient to stay very well hydrated and encouraged her to take probiotics/ yogurt. She verbalizes understanding. PICC line dressing is intact. Line flushes and has blood return from both lumens. SN applied an extension to one lumen and a new microclave to the other. Instructed her to flush both lumens daily.There seems to be a lot of anxiety over the PICC line. She is afraid that she will have a really hard time with the adhesive as she does have an allergy. SN suggested that maybe she use a tegaderm but if it is in for 6 days, hopefully it will not be an issue. Medications were reviewed. Some issues were noted with medication doses. Patient [facility] did not have the dosing correct on her cardiac meds and she was not sure what the doses were without her own med list which she did not have. SN called Dr. Ruth's office who is her ship scaler with [facility]. Spoke to Tawana and updated med list per their records. No other issues at this time. See intervention summary for education details and skills performed. Plan of care and visit frequency established with patient and caregiver and plan of care agreed upon. Patient demonstrated a need for further skilled SN services for chronic disease management & education, medication education, wound/skin care, infusion care, labs, safety and infection control/prevention RECOMMENDATION: Visit Frequency: 2w1,3w1 Need for additional services: Patient agreeable to N/A referrals. Patient declined PT and OT referrals. Additional concerns to be followed up on: NONE During visit, patient demonstrated need for continued IV infusion education and needs further instructions focused on IV admin and now IV Flagyl. Next visit to focus on (be specific): Patient needs IV teaching. If the PICC is not going to stay in place until surgery and ID gives orders for removal then the patient can be discharged after completion [facility] Work Phone: [phone] Telephone encounter Note* Telephone Encounter - Corrie Alejandro RN - 03/21/2025 10:07 AM EDT Please review and [facility] Telephone encounter Note* Telephone Encounter - Zuly Aguilera RN - 03/20/2025 6:39 PM EDTSummary: COPAT ACTION-FOR IDC USE ONLY Images from the original note were not included. 03/20/2025 11:30 AM Elmer Manley [place] PROVIDER ADULT [id number] Patient Info Patient Name Sex Jena Alexandra Mireles ([id number]) Female 1955 Encounter Notes Progress Notes by Elmer Manley MD, encounter date 03/20/2025: Progress Notes [facility] Outpatient Parenteral Antimicrobial Therapy (OPAT) Start Form Patient Info Patient MRN Patient Name Address Date of 195421 Alexandra Bella [address] [id number] 1955 Start Date 03/20/[address] [id number] Diagnosis GI/Hepatobiliary/Peritoneal: Colitis Micro-organism CULTURE NEGATIVE IV Antibiotics Antibiotic Dose Frequency Stop Date Ceftriaxone 2 grams every 24 hours 03/27/2025 Oral Antibiotics Antibiotic Dose Frequency Stop Date Metronidazole 500 mg every 8 hours 03/27/2025 Lab Monitoring Plan Labs Frequency While on CBC/diff Creatinine Liver Function Tests every Monday every Monday every Monday Ceftriaxone Ceftriaxone Ceftriaxone OPAT Pharmacy Consult Yes Cath Care Protocol LINE CARE PER PROTOCOL: Change line dressing weekly and as needed. *Must use medicated disc (biopatch) or tegaderm CHG (chorhexedine gluconate) gel pad over insertionsite and cover with transparent dressing* When the patient is on an intermittent IV antibiotic dosing schedule: [facility] method: 1) Administer normal saline 5ml IV to port. 2) Infuse IV antibiotic as ordered. 3) Administer normal saline 5ml IV to port. Labs may be drawn on Monday if Monday is a holiday. 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 for monitoring flecainide therapy snf current use of anticoagulant Pure hypercholesterolemia Type 2 diabetes mellitus with diabetic polyneuropathy, without long-term current use of insulin Obesity, Class III, BMI >= 40 Sepsis Follow up Provider Follow up date/time Appointment type Elmer Manley MD No Follow Up Provider Monitoring Treatment Course Elmer Manley MD Address [address], [address], [place] [address] Prescribing Provider's signature - electronically signed by Elmer Manley MD on 03/20/25 at 11:31 AM [facility]-10-[facility]25 Telephone encounter Note* Telephone Encounter - Buzz Vegas RPh - 03/20/2025 3:08 PM EDT Drug-Drug interaction review with homegoing ceftriaxone. tolerating inhouse with PCN allergy. Pended RX set up for e-script Buzz WinPh. [facility]-10[facility] Miscellaneous Notes* Telephone Encounter - Buzz Vegas RPh - 03/20/2025 3:08 PM EDT Drug-Drug interaction review with homegoing ceftriaxone. tolerating inhouse with PCN allergy. Pended RX set up for e-script Buzz Win.Ph. documented in this encounter[facility]25 NoteHNO ID: [id number] Author: ALEJANDRA SUBRAMANIAN RN Service: Care Management Author Type: Registered Nurse Type: Care Mgt Progress Note Filed: 03/20/2025 14:39 Note Text: CARE MANAGEMENT DISCHARGE NOTE SERVICE DATE: March 20, 2025 SERVICE TIME: 2:37 PM Admission Date: 03/17/2025 LOS: 3 days Discharge Arrangement Discharge Arrangement: Home with Home Health, Home with Relative Services Arranged Medical Services: Skilled Home Health Care Type: Home Health Agency, Prison, Physical Therapy, Occupational Therapy Provider Name: [facility] Home Care Provider Name: [facility] Caregiver Assessment Caregiver is ready, willing and able to meet the patient's needs as recommended by the inter-professional team: Yes Name of Caregiver: [facility] Transportation Arrangements Transportation Arrangements: Car Date of Trip: 03/20/25 Destination: Home Handoff Communication: Handoff to: Primary Care Physician Primary Care Physician Name/Phone: Leonora Davalos, COMMUTER [employer].[facility]/ [phone] Discharge Information Row Name Admission (Current) from 03/17/2025 in [facility] Agency [facility] Home Care Start of Care 03/21/25 Home Infusion Pharmacy Agency [facility] Phone/ Start of Care -- Pharmacy delivery to your residence this evening. Discharge order is written. [facility] confirmed they can accept for a start of care tomorrow. [facility] confirmed they will deliver the IV antibiotics to the patient's residence this evening. The patient and her spouse were updated at bedside. Both are agreeable to the discharge plan. Spouse to transport home. SIGNATURE: Alejandra Subramanian RN PATIENT NAME: Alexandra Bella DATE: March 20, 2025 TIME: 2:37 [id number] Telephone encounter Note* Telephone Encounter - Joey Hill - 03/20/2025 2:19 PM EDT Patient was returning phone call transferred to [facility] Work Phone: [phone]) 342-312307-10-2025 Miscellaneous Notes* Telephone Encounter - Joey Hill - 03/20/2025 2:19 PM EDT Patient was returning phone call transferred to [facility] documented in this encounter[facility] [place] Telephone encounter Note * Telephone Encounter - Joon Clemens LPN - 03/20/2025 2:18 PM EDT Spoke to patients spouse to discuss delivery this evening and start of care tomorrow. [facility] Work Phone: [phone] Miscellaneous Notes* Telephone Encounter - Joon Clemens LPN - 03/20/2025 2:18 PM EDT Spoke to patients spouse to discuss delivery this evening and start of care tomorrow. * Telephone Encounter - Joon Clemens LPN - 03/20/2025 1:53 PM EDT CONFIRMATION CALL a. Date and Time: 1:53 PM 03/20/2025 b. Contact name/relationship: Patient C. Service Address- [address] [address] Have you been active with any Home Care company in the last 60 days? No. Caregiver: Yes, spouse (CG must be available for SOC/CARMELLA and the following 3-4 visits or until independent) Joon Clemens LPN documented [facility] Telephone encounter Note * Telephone Encounter - Joon Clemens LPN - 03/20/2025 1:53 PM EDT CONFIRMATION CALL a. Date and Time: 1:53 PM 03/20/2025 b. Contact name/relationship: Patient C. Service Address- [address] [address] Have you been active with any Home Care company in the last 60 days? No. Caregiver: Yes, spouse (CG must be available for SOC/CARMELLA and the following 3-4 visits or until independent) Joon Clemens LPN [facility]07-10-2025 Telephone encounter Note* Telephone Encounter - Joon Clemens LPN - 03/20/2025 12:11 PM EDT Called office and spoke to Dr. Davalos. Dr. Davalos will follow for home care services at discharge from hospital. [facility] Work Phone: [phone] Miscellaneous Notes* Telephone Encounter - Joon Clemens LPN - 03/20/2025 12:11 PM EDT Called office and spoke to Dr. Davalos. Dr. Davalos will follow for home care services at discharge from hospital. documented in this [facility]25 NoteHNO ID: [id number] Author: ALEJANDRA SUBRAMANIAN RN Service: Care Management Author Type: Registered Nurse Type: Care Mgt Progress Note Filed: 03/20/2025 12:06 Note Text: CARE MANAGEMENT PROGRESS NOTE SERVICE DATE: 03/20/2025 SERVICE TIME: 11:51 AM LOS: 3 days Needs Prior to Discharge: Home Care Order, IV Antibiotics, Other: See Comment (Medical Clearance) [place] of Choice Given: Yes Level of Care Discussed: Home Care Financial Disclosure Provided: Yes Provider List: Home Care Provider list within the patient's requested geographic area shared with the patient/family: Yes [facility] Quality and resource use metrics shared with the patient that are relevant to the patient's goals of care and treatment preferences:: Yes EMR reviewed. Noted CoPAT in EPIC and met with the patient at bedside to discuss discharge planning needs. The patient is agreeable to Home Care and confirmed she and her spouse would be able to learn the infusion. She has no preference in C or Home Care Pharmacy provider as long as in network with her insurance. Referrals sent to [facility] and [facility]. CM assigned will continue to follow. [facility] and [facility] can accept. SIGNATURE: Alejandra Subramanian RN PATIENT NAME: Alexandra Bella DATE: March 20, 2025 TIME: 11:51 [id number] NoteHNO ID: [id number] Author: ELMER MANLEY MD Service: ? Author Type: Physician Type: Progress Notes Filed: 03/20/2025 11:31 Note Text: [facility] Outpatient Parenteral Antimicrobial Therapy (OPAT) Start Form Patient Info Patient MRN Patient Name Address Date of [id number] Alexandra Bella [address] [id number] 1955 Start Date 03/20/[address] [facility] Diagnosis GI/Hepatobiliary/Peritoneal: Colitis Micro-organism CULTURE NEGATIVE IV Antibiotics Antibiotic Dose Frequency Stop Date Ceftriaxone 2 grams every 24 hours 03/27/2025 Oral Antibiotics Antibiotic Dose Frequency Stop Date Metronidazole 500 mg every 8 hours 03/27/2025 Lab Monitoring Plan Labs Frequency While on CBC/diff Creatinine Liver Function Tests every Monday every Monday every Monday Ceftriaxone Ceftriaxone Ceftriaxone OPAT Pharmacy Consult Yes Cath Care Protocol LINE CARE PER PROTOCOL: Change line dressing weekly and as needed. *Must use medicated disc (biopatch) or tegaderm CHG (chorhexedine gluconate) gel pad over insertion site and cover with transparent dressing* When the patient is on an intermittent IV antibiotic dosing schedule: [facility] method: 1) Administer normal saline 5ml IV to port. 2) Infuse IV antibiotic as ordered. 3) Administer normal saline 5ml IV to port. Labs may be drawn on Monday if Monday is a holiday. 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 Pure hypercholesterolemia Type 2 diabetes mellitus with diabetic polyneuropathy, without long-term current use of insulin Obesity, Class III, BMI >= 40 Sepsis Follow up Provider Follow up date/time Appointment type Elmer Manley MD No Follow Up Provider Monitoring Treatment Course Elmer Manley MD Address [address] [facility] [place], [address] [address] Prescribing Provider's signature - electronically signed by Elmer Manley MD on 03/20/25 at 11:31 AMSumma [id number] History of Present illness Narrative* Elmer Manley MD - 03/20/2025 11:30 AM EDT Images from the original note were not included. [facility] Outpatient Parenteral Antimicrobial Therapy (OPAT) Start Form Patient Info Patient MRN Patient Name Address Date of [id number] Alexandra Bella [address] [id number] 1955 Start Date 03/20/[address] [facility] Diagnosis Group Diagnosis GI/Hepatobiliary/Peritoneal: Colitis Micro-organism CULTURE NEGATIVE IV Antibiotics Antibiotic Dose Frequency Stop Date Ceftriaxone 2 grams every 24 hours 03/27/2025 Oral Antibiotics Antibiotic Dose Frequency Stop Date Metronidazole 500 mg every 8 hours 03/27/2025 Lab Monitoring Plan Labs Frequency While on CBC/diff Creatinine Liver Function Tests every Monday every Monday every Monday Ceftriaxone Ceftriaxone Ceftriaxone OPAT Pharmacy Consult Yes Cath Care Protocol LINE CARE PER PROTOCOL: Change line dressing weekly and as needed. *Must use medicated disc (biopatch) or tegaderm CHG (chorhexedine gluconate) gel pad over insertionsite and cover with transparent dressing* When the patient is on an intermittent IV antibiotic dosing schedule: [facility] method: 1) Administer normal saline 5ml IV to port. 2) Infuse IV antibiotic as ordered. 3) Administer normal saline 5ml IV to port. Labs may be drawn on Monday if Monday is a holiday. 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 for monitoring flecainide therapy snf current use of anticoagulant Pure hypercholesterolemia Type 2 diabetes mellitus with diabetic polyneuropathy, without long-term current use of insulin Obesity, Class III, BMI >= 40 Sepsis Follow up Provider Follow up date/time Appointment type Elmer Manley MD No Follow Up Provider Monitoring Treatment Course Elmer Manley MD Address [address] [place] [address], [address], [place] [address] Prescribing Provider's signature - electronically signed by Elmer Manley MD on 03/20/25 at 11:31 AM documented in this encounter[facility]25 NoteHNO ID: [id number] Author: JOSEFA HANKINS MD Service: Hospital Medicine Author Type: Physician Type: Progress Notes Filed: 03/19/2025 18:14 Note Text: DEPARTMENT OF HOSPITAL MEDICINE PROGRESS NOTE SERVICE DATE: 03/19/2025 SERVICE TIME: 6:01 PM Hospital Medicine/Primary Attending: Josefa Hankins MD NIGHT AND WEEKEND COVERAGE: CORUNNA COVERAGE: Days: [phone], please page attending physician. Nights: [phone], please page [facility] Night coverage pager [phone]. Subjective INTERVAL HPI: Denied chest pain, Shortness of Breath Rest ROS unchanged or unremarkable Current Facility-Administered Medications Medication Dose Route Frequency flecainide 100 mg tab(s) (TAMBOCOR) 100 mg ORAL q 12 H [Order Held by LIP] losartan 25 mg tab(s) (COZAAR) 25 mg ORAL DAILY levothyroxine 200 mcg tab(s) (SYNTHROID) 200 mcg ORAL Once per day on Monday dextrose 40 % 15 g 15 g ORAL PRN Or glucagon 1 mg injection 1 mg INTRAMUSCULAR PRN Or dextrose 10% iv bolus 12.5 g INTRAVENOUS PRN metroNIDAZOLE iv piggyback 500 mg in NaCl (iso-osmotic) 100 mL (FLAGYL) 500 mg INTRAVENOUS q 8 H acetaminophen 1,000 mg tab(s) (TYLENOL) 1,000 mg ORAL q 8 H PRN melatonin 6 mg tab(s) 6 mg ORAL AT BEDTIME PRN insulin lispro injection (rapid acting) (ADMElog) SUBCUTANEOUS w MEALS insulin lispro injection (rapid acting) (ADMElog) SUBCUTANEOUS AT BEDTIME heparin iv infusion 25,000 units in NaCl 0.45% 250 mL STANDARD NOMOGRAM 0-3,000 Units/hr INTRAVENOUS CONTINUOUS And heparin RATE CHANGE bolus 1,000-10,000 Units for subtherapeutic PTTAC results 1,000-10,000 Units INTRAVENOUS PRN [START ON 03/22/2025] levothyroxine 100 mcg tab(s) (SYNTHROID) 100 mcg ORAL Every Monday oxyCODONE IR 5 mg tab(s) (ROXICODONE) 5 mg ORAL q 3 H PRN morphine 4 mg injection 4 mg INTRAVENOUS q 4 H PRN furosemide 40 mg tab(s) (LASIX) 40 mg ORAL DAILY prochlorperazine 10 mg injection (COMPAZINE) 10 mg INTRAVENOUS q 6 H PRN [START ON 03/20/2025] cefTRIAXone 2 g in D5W 100 mL Vial-Bag (ROCEPHIN) 2 g INTRAVENOUS q 24 H NaCl 0.9% iv flush bag 20 mL INTRAVENOUS PRN metoprolol tartrate (short acting) 12.5 mg tab(s) (LOPRESSOR) 12.5 mg ORAL q 12 H Objective PHYSICAL EXAM: BP 130/83 Pulse 83 Temp (Src) 97.8 (Axillary) Resp 16 Ht 5' 3" (1.60m) Wt 276 lb 10.8 oz (125.5kg) SpO2 96% LMP 03/11/1998 BMI 49.02 kg/(m2). Physical Exam Performed GENERAL: awake alert In no distress EYES: PERRLA, EOMI, Conjunctiva clear NECK: supple, no jvd HEART: regular rate and rhythm, S1 and S2, no murmur LUNGS: clear to auscultation; no rales or wheezes ABDOMEN: Soft, tender in llq- no rebound or rigidity, bowel sounds normal, no masses EXTREMITY: no edema; no erythema, NEURO: Alert and Oriented x3; Nonfocal PSYCH: Appropriate mood; Cooperative Body mass index is 49.01 kg/m?. Lines, Drains, and Airways Line Duration Peripheral 03/18/25 1043 [facility] Short Right Forearm 20 Gauge 1 day Peripheral 03/18/25 1435 [facility] Long Right Arm 20 Gauge 1 day Central Line Single Lumen 03/19/25 1602 Peripherally Inserted (PICC) Right Arm 4.0 Chadian <1 day Reviewed lines and needs to be continued: REASONS: Intravenous antibiotics DATA: Diagnostic tests reviewed for today's visit: CBC, Coags, BMP, Mg, Phos Recent Labs 03/19/25 1654 03/19/25 0856 03/19/25 0303 03/18/25 1150 03/18/25 0542 03/17/25 2144 03/17/25 1521 03/17/25 1521 WBC -- -- 12.78* -- 14.82* 16.12* -- 18.52* HB -- -- 11.6 -- 11.6 12.1 -- 13.3 HCT -- -- 34.9* -- 35.8* 37.1 -- 40.8 PLT -- -- 219 -- 202 226 -- 237 INR -- -- -- -- -- 1.2 -- -- APTT 41.6* 55.2* 98.5* < > 71.2* 28.1 < > -- NA -- -- 134* -- 137 -- -- 136 K -- -- 3.4* -- 3.7 -- -- 4.1 CHLOR -- -- 100 -- 105 -- -- 98 CO2 -- -- 24 -- 21* -- -- 24 BUN -- -- 8 -- 14 -- -- 12 CREAT -- -- 0.82 -- 0.88 -- -- 0.91 GLUC -- -- 107* -- 142* -- -- 139* CA -- -- 8.9 -- 9.1 -- -- 10.1 MG -- -- 1.6* -- 2.3 -- -- -- < > = values in this interval not displayed. 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 Pure hypercholesterolemia Type 2 diabetes mellitus with diabetic polyneuropathy, without long-term current use of insulin (HCC) Obesity, Class III, BMI >= 40 Sepsis (HCC) Hx of diverticulitis of colon Chest pressure HOSPITAL COURSE: Alexandra Bella is a 69 year old female presented with past medical history of Breast Cancer s/p partial left mastectomy (more content not included)...[facility] [id number] NoteHNO ID: [id number] Author: EMILY DALAL, JONI Service: Nursing Author Type: Registered Nurse Type: Procedures Filed: 03/19/2025 16:01 Note Text: PICC NURSE INSERTION NOTE DATE OF PROCEDURE: March 19, 2025 TIME OF PROCEDURE: 1500 ORDERING PHYSICIAN: Dr Manley INFORMED CONSENT: Obtained per hospital policy. INDICATION FOR LINE PLACEMENT: COPAT CONDITION OF LINE PLACEMENT: Sterile PRIMARY PROCEDURALIST: Cynthia De RN LIEUTENANT FIRE FIGHTER: Emily Dalal RN PRE-PROCEDURE REVIEW ALLERGIES Allergen Reactions Adhesive Tape rash Avelox [Moxifloxaci* Heart race Biaxin [Clarithromy* Hives, GI Upset Eryc [Erythromycin] Swelling Metformin GI Upset Throwing up, Diarrhea Penicillins Quinolones Avelox Remicade [Inflixima* Shortness of Breath Spironolactone Intolerance Headaches Sutures Other: See Comments Suture do not dissolve Demerol [Meperidine* Other: See Comments Arm swelled up locally and turned red. Known History of Upper Venous Thrombosis: No Known History of Permanent Pacemaker or Automated Implanted Cardiac Device: No Previous Breast Surgery of Lymph Node Dissection: No Estimated Glomerular Filtration Rate Date Value Ref Range Status 03/19/2025 78 >=60 mL/min/1.73m? Final Comment: Estimated Glomerular Filtration Rate (eGFR) is calculated using the 2020 CKD-EPI creatinine equation. This equation utilizes serum creatinine, sex, and age as parameters. The creatinine assay has traceable calibration to isotope dilution-mass spectrometry. Refer to KDIGO guidelines for clinical interpretation. In patients with unstable renal function, e.g. those with acute kidney injury, the eGFR may not accurately reflect actual GFR. eGFR- Date Value Ref Range Status 10/12/2021 >60 Final eGFR Date Value Ref Range Status 06/04/2020 >60 >60mL/min/1.73m2 Final Comment: If the patient is , multiply the result by 1.210. History of Renal Disease: No Ultrasound Assessment Complete: Yes PROCEDURE NARRATIVE SAFE PRACTICE Hand Hygiene per Hospital Policy: Yes Skin Preparation Unit Dose Applicator Used: Chloraprep (CHG + alcohol), allowed to dry. Procedure Surface Cleansed with Antimicrobial Wipes: Yes Barriers Used by Proceduralist and all Assisting Personnel: Yes UNIVERSAL PROTOCOL / SAFETY CHECKLIST Procedure to be Performed: Ultrasound Guided Peripherally Inserted Central Catheter Sign In: A Moment of CARE was completed. Appropriate PPE (Personal Protective Equipment) worn by all providers involved with the procedure. Special equipment utilized Ultrasound and Sherlock machine. Patient/Surrogate Stated/Verified: Patient name, Date of , Relevant allergies, and The intended procedure Time Out: Relevant labs, photos, and/or imaging studies have been reviewed. Intended patient and procedure match the source document(s) (e.g. consent, HANDP, associated studies [imaging, pathology]) match the intended patient and procedure. Consent obtained and matches the intended procedure. Yes. Correct side/site has been marked and visible. Medications required for this procedure are verified. Fire risk assessed and interventions discussed. Implants: are not applicable. Sign Out: Specimens NA All instruments, equipment, possible retained foreign bodies are accounted for. Yes. The post-procedure plan of care has been communicated to the patient or surrogate and to patient's multidisciplinary team (including bedside nurse for hospitalized patients). CATHETER PLACEMENT Brand: Lighter [employer] Lot: [id number] Number of Lumens: 1 Type of PICC: Power Injectable PICC Lumen Size: 4 Chadian PLACEMENT TECHNIQUE Lidocaine: Yes, Lidocaine 1% Volume 2 mL Subcutaneous Modified Seldinger Technique Used to Place Line via the Right Basilic Ultrasound Guidance: Yes Number of Attempts at Insertion: 2 Ensured control of guidewire during all aspects of the procedure: Yes Accounted for entire guidewire upon removal: Yes Internal Length: 43 cm External Length: 0 cm Trim Length: 43 cm Mid-Arm Circumference: 42 centimeters Post Insertion Pain Level Related to Procedure: 0 Action Taken to Address Pain: None needed Verified Placement: Blood return and flushes with ease and Tip location system or device indicates the tip is located in the SVC/CAJ. Line was Flushed with 20 mL normal saline Line Secured with: Securement device Sterile Dressing Applied and Dated: Yes Sterile Caps on all Ports Prior to Leaving Procedure Area: Yes, Disinfection caps applied SPECIMENS: None COMPLICATIONS: None Patient Education Materials: Placed in chart The [facility] Central Line Insertion checklist was utilized during this procedure. QUESTIONS or PROBLEMS: If you have any questions, please call the [facility] Interventional Radiology department at [phone], option #2. SIGNATURE: Emily Dalal RN PATIENT NAME: Alexandra GAMBLE (more content not included)...[facility]ma [id number] NoteHNO ID: [id number] Author: EMILY DALAL RN Service: Nursing Author Type: Registered Nurse Type: Progress Notes Filed: 03/19/2025 15:32 Note Text: PATIENT EDUCATION RADIOLOGY TOPIC: Procedure/Surgery: Ultrasound Guided Peripherally Inserted Central Catheter READINESS TO LEARN COGNITIVE ABILITY: Alert and oriented MOTIVATION TO LEARN: Interested FAMILY SUPPORT: Unable to assess - Family not present INSTRUCTION PROVIDED TO: Patient PATIENT LEARNS BEST BY: Written Instruction - Hand-outs Verbal Instruction FACTORS AFFECTING LEARNING: None PHYSICAL LIMITATIONS AFFECTING LEARNING: None LEARNING RESPONSE Procedure: Angio Procedures: Radiology Procedures: Ultrasound Guided Peripherally Inserted Central Catheter METHOD OF INSTRUCTION: Written instruction - handouts Verbal instruction PATIENT / FAMILY RESPONSE: Verbalizes understanding of: Infection Management Pain Management Pre Procedure Instructions Post Procedure Instructions FOLLOW-UP PLAN: Complete - No need for follow-up REFERRAL (RECOMMENDATION): None Electronically Signed By Emily Dalal RNSumma [id number] NoteHNO ID: [id number] Author: JANE BELLAMY MD Service: Hospital Medicine Author Type: Physician Type: Plan of Care Filed: 03/18/2025 18:54 Note Text: Received page from RN that patient is taking 12.5 mg lopressor PO every day, asking to change order -- adjusted. Patient notes that her prilosec works better than protonix - advised we don't have the prilosec, she can have someone bring from home and let pharmacy know if desired. Jane Bellamy [facility] [id number] NoteHNO ID: [id number] Author: NIRALI MARTINEZ MD Service: Hospital Medicine Author Type: Physician Type: Progress Notes Filed: 03/19/2025 07:57 Note Text: DEPARTMENT OF HOSPITAL MEDICINE PROGRESS NOTE SERVICE DATE: 03/18/2025 SERVICE TIME: 2:46 PM Hospital Medicine/Primary Attending: Nirali Martinez MD NIGHT AND WEEKEND COVERAGE: CORUNNA COVERAGE: Days: [phone], please page attending physician. Nights: [phone], please page [facility] Night coverage pager [phone]. Subjective INTERVAL HPI: Patient reports feeling better since starting treatment. No N/V/abdominal pain Hx of diverticulitis about once every year . Was previously recc surgery but she preferred to wait. Hx of rectal/cervical cancer s/p surgery Current Facility-Administered Medications Medication Dose Route Frequency flecainide 100 mg tab(s) (TAMBOCOR) 100 mg ORAL q 12 H [Order Held by [facility]] losartan 25 mg tab(s) (COZAAR) 25 mg ORAL DAILY levothyroxine 200 mcg tab(s) (SYNTHROID) 200 mcg ORAL Once per day on Monday dextrose 40 % 15 g 15 g ORAL PRN Or glucagon 1 mg injection 1 mg INTRAMUSCULAR PRN Or dextrose 10% iv bolus 12.5 g INTRAVENOUS PRN cefTRIAXone iv piggyback 1 g in dextrose (iso-osmotic) 50 mL (ROCEPHIN) 1 g INTRAVENOUS q 24 H metroNIDAZOLE iv piggyback 500 mg in NaCl (iso-osmotic) 100 mL (FLAGYL) 500 mg INTRAVENOUS q 8 H acetaminophen 1,000 mg tab(s) (TYLENOL) 1,000 mg ORAL q 8 H PRN melatonin 6 mg tab(s) 6 mg ORAL AT BEDTIME PRN insulin lispro injection (rapid acting) (ADMElog) SUBCUTANEOUS w MEALS insulin lispro injection (rapid acting) (ADMElog) SUBCUTANEOUS AT BEDTIME heparin iv infusion 25,000 units in NaCl 0.45% 250 mL STANDARD NOMOGRAM 0-3,000 Units/hr INTRAVENOUS CONTINUOUS And heparin RATE CHANGE bolus 1,000-10,000 Units for subtherapeutic PTTAC results 1,000-10,000 Units INTRAVENOUS PRN [START ON 03/22/2025] levothyroxine 100 mcg tab(s) (SYNTHROID) 100 mcg ORAL Every Monday oxyCODONE IR 5 mg tab(s) (ROXICODONE) 5 mg ORAL q 3 H PRN morphine 4 mg injection 4 mg INTRAVENOUS q 4 H PRN lidocaine 10 mg/mL (1 %) 10-100 mg injection (XYLOCAINE) 1-10 mL INTRADERMAL DIRECTED PRN furosemide 40 mg tab(s) (LASIX) 40 mg ORAL DAILY metoprolol tartrate (short acting) 12.5 mg tab(s) (LOPRESSOR) 12.5 mg ORAL QID Objective PHYSICAL EXAM: BP 105/47 Pulse 82 Temp (Src) 100.2 (Axillary) Resp 16 Ht 5' 3" (1.60m) Wt 276 lb 10.8 oz (125.5kg) SpO2 94% LMP 03/11/1998 BMI 49.02 kg/(m2). O2 Therapy: Room Air Physical Exam Performed GENERAL: Alert, no distress, cooperative, Obese LUNGS: Lungs clear to auscultation, No wheezing nor rhonchi CARDIAC: Normal S1 and S2; no rubs, murmurs, or gallops ABDOMEN: Abdomen soft, mild lower abdominal tenderness w/o rebound nor guarding , BS normal EXTREMITIES: No edema NEURO: Awake,alert, oriented x3. Can move all extremity w/o new known focal neurological deficit Lines, Drains, and Airways Line Duration Peripheral 03/18/25 1043 [facility] Short Right Forearm 20 Gauge <1 day Peripheral 03/18/25 1435 [facility] Long Right Arm 20 Gauge <1 day Reviewed lines and needs to be continued: REASONS: Intravenous fluids, Intravenous antibiotics, Telemetry, and Electrolyte replacement DATA: Diagnostic tests reviewed for today's visit: Most recent labs Most recent imaging Most recent EKG Assessment/Plan Problem List Acute diverticulitis (POA: Yes) MARILIA on CPAP (POA: Yes) Postoperative hypothyroidism (POA: Yes) Essential hypertension (POA: Yes) Rheumatoid arthritis (HCC) (POA: Yes) Atrial fibrillation (HCC) (POA: Yes) Chronic diastolic CHF (congestive heart failure) (HCC) (POA: Yes) Coronary artery disease involving [place] coronary artery of [place] heart without angina pectoris (POA: Yes) History of DVT (deep vein thrombosis) (POA: Yes) Encounter for monitoring flecainide therapy (POA: Yes) 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 (POA: Yes) Pure hypercholesterolemia (POA: Yes) Type 2 diabetes mellitus with diabetic polyneuropathy, without long-term current use of insulin (HCC) (POA: Yes) Obesity, Class III, BMI >= 40 (POA: Status not on file) HOSPITAL COURSE: Alexandra Bella is a 69 year old female presented with Active Problems: Sepsis with leucocytosis (18.52),hypotension (94/80), tachycardia (100) due to Acute diverticulitis (POA: Yes) Hx of recurrent diverticulitis Immune compromised state --Presented to [facility] for evaluation of abdominal pain --CT AP with inflammatory changes surrounding a 2 cm outpouching in the mid sigmoid colon suggestive of diverticulitis although difficult to assess for possible abscess. -- Started on IV Rocephin and Flagyl with improving symptoms, sepsis parameters --Gen surgery consulted . advanced diet to GI soft,consulted ID , recc that given that she had rectal surgery by Dr. Makayla conrad (more content not included)...[id number] NoteHNO ID: [id number] Author: ALEJANDRA SUBRAMANIAN RN Service: Care Management Author Type: Registered Nurse Type: Care Mgt Initial Assessment Filed: 03/18/2025 15:59 Note Text: CARE MANAGEMENT: ASSESSMENT AND DISCHARGE PLAN SERVICE DATE: March 18, 2025 SERVICE TIME: 3:55 PM PCP: Leonora Davalos APRN.SALES AND MARKETING ASSISTANT Primary Contact: Extended Emergency Contact Information Primary Emergency Contact: Dilma Bella Address: [address] [place] [address] Mobile Relation: Spouse Admission Status: Inpatient Insurance Provider: [facility] [place] [place] Discharge Planning requested by: Per Department Practice Potential Transition Plans Home, Home Care, Home Care Pharmacy, To Be Determined Advance Directives Current Advance Directive: Living Will, Health Care Power of Senior Javascript Developer In Chart: No Current Living Arrangements and Support Lives with: Spouse/significant other Type of Residence: Private Residence (House) Does the patient have to climb stairs at home?: stairs outside the home Support: Spouse/significant other How do you manage to accomplish the following: Independent: Ambulation, Bathe/Shower, Dress, Meals/Meal Prep, Going to the bathroom, Medication Management, Transportation to appointments/community Current Services/Equipment Current Post-Acute Service(s): DME Current DME Type: Electric scooter, Continuous Positive Airway Pressure Discharge Planning Patient Goal(s): General wellness, Be able to go home, Less pain [place] of Choice Explained: [place] of Choice Given: No Reason Not Given: Unable to complete with this assessment - revisit Are you interested in bedside delivery of your medications? No Discharge Planning Participant(s): Patient Caregiver Assessment: Caregiver is ready, willing and able to meet the patient's needs as recommended by the inter-professional team: Other: See Comment (TBD) Transport at Discharge: Transportation Arrangements: Car Needs Prior to Discharge: Needs Prior to Discharge: To Be Determined, Facility or Agency Choices, Home Care Order, IV Antibiotics, Other: See Comment (Medical Clearance) Post-Acute Discharge Plan: EMR reviewed and CM assessment complete. 69 year old patient admitted for diverticulitis. RN CM met with the patient at bedside to discuss discharge planning needs. 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 She uses an electric scooter PRN when outside of the home. Otherwise no DME for mobility. Discharge antibiotic needs to be determined. CM assigned will continue to follow. SIGNATURE: Alejandra Subramanian RN PATIENT NAME: Alexandra Bella DATE: March 18, 2025 TIME: 3:55 PMSumma [id number] Telephone encounter Note* Telephone Encounter - Hailey Ocampo RN - 03/18/2025 1:58 PM EDT [facility]. Hailey Ocampo RN Per H & P: Acute diverticulitis (POA: Yes) --Presented to [facility] for evaluation of abdominal pain --CT AP with inflammatory changes surrounding a 2 cm outpouching in the mid sigmoid colon suggestive of diverticulitis although difficult to assess for possible abscess. --IV Rocephin and Flagyl --NPO, IVF --Holding Eliquis --Heparin gtt as below --Pain control --Serial ABD exams --General Surgery consulted [facility]07-08-2025 Telephone encounter Note* Telephone Encounter - Rosy Esteban MD - 03/18/2025 10:[address]-scan abd/pelvis 03/17/2025: Inflammatory changes surrounding a 2 cm outpouching in the mid sigmoid colon (2:99) suggestive of diverticulitis. It is difficult to assess for presence of intramural abscess due to lack of IV contrast. Trace free fluid and fat stranding in the left pelvis. I suppose she is on oral antibiotics, Hailey: Please verify and needs to be on them x 10 days. Rosy Esteban MD [facility]07-07-2025 Telephone encounter Note* Telephone Encounter - Ashley Rosario LPN - 03/17/2025 12:01 PM EDT Please review [employer] message and please advise. Thank You Ashley Rosario LPN [facility]06-12-2025 Evaluation note* Diagnosis Onset Date Resolution Status Admit Date Pharyngitis acute February 20 5:36pm Left otitis media resolved February 202024 5:36pm Cough acute April 22, 2 025 8:19am GERD (gastroesophageal reflu x disease) acute April 22 8:19am Dyspnea on exertion chronic Augus t 2024 8:19am Obesity chronic April 22, 2 025 8:19am Sleep apnea chronic April 22, 2025 8:19am [facility] Work Phone: 1(253) 922-808205-28-2025 Radiology [facility] Radiology Diagnostic study note [facility] Imaging Services [address] [place], [place] [address] Chest without Contrast MR#: [id number] Acct: [id number] Name: ALEXANDRA BELLA Rep #: [id number] : [id number] F [id number] From: Artemio Mccann MD PCP: VANESSA Gilliland Status: REG CLI Study:Chest without Contrast Date of Exam: 01/24/25 Exam# [id number] Ordering Dr: Ada Wheeler PROCEDURE: CHEST WITHOUT CONTRAST 01/24/2025 REASON FOR EXAM: COUGH > 6 MONTHS, NORMAL CHEST XRAY TECHNIQUE: Chest CT without contrast. Coronal and Sagittal reconstruction series were provided. One or more dose reduction techniques were used (e.g., Automated exposure control, adjustment of the mA and/or kV according to patient size, use of iterative reconstruction technique RADIATION DOSE SUMMARY: CTDlvol: 20.15 mGy DLP: 674.64 mGycm COMPARISON: Prior chest radiograph dated December 07, 2024. FINDINGS: Hardware: Status post left mastectomy with left breast prostheses. Surgical clips are seen in the left axilla. Lymph nodes: Small benign-appearing mediastinal lymph nodes. Heart and Vasculature: Coronary artery calcifications are noted. Coronary Artery Calcifications: Present Lungs and Airways: Mild increased linear markings at the lung bases suggestive of mild basilar scarring. Increased markings are also seen along the posterior aspect of the right middle lobe suggestive of scarring. Pleura: No evidence of pleural effusion. Upper Abdomen: Prior cholecystectomy. Bones: Degenerative changes of the thoracic spine. CT/Chest without Contrast IMPRESSION: Coronary artery calcification (CAC) is is present Findings suggestive of linear scarring at the lung bases as well as in the posterior aspect of the right middle lobe. Reading Location: [id number] CC: VANESSA Davalos; Ada Wheeler NP ~ Rnp: Signed [facility]05-09-2025 History of Present illness Narrative* Eliceo Ambriz APRN.SALES AND MARKETING ASSISTANT - 01/17/2025 7:30 AM EDT Reason for Consultation: DM Type 2 Referring Physician: Leonora Davalos ([facility]) [address] [address] *visit is being conducted virtually today *I have communicated my name and active licensure. The patient's identity and physical location were verified at the time of this visit. Either the patient or their legal sales representative publications has been informed of the risks and benefits of -- and alternatives to -- treatment through a remote evaluation and consents to proceed with the evaluation remotely. HISTORY OF PRESENT ILLNESS Ms. Bella is a 69 year old female presenting here today for a follow up of DM Type 2. As I recall,she was initially diagnosed with diabetes about age 65. Patient of Dr. Brianne AGUSTIN 11/08/24 A1C 7.2 on 11/12/24 History of diabetes type 2, peripheral neuropathy, HLD, hypothyroidism, DVT s/p IVC filter, CHF, Afib, colon cancer, endocarditis, HTN, GERD, IBS, nephrolithiasis, gastric ulcers, breast cancer, phlebitis, Rheumatoid, arthritis shingles, MARILIA, CAD, liver disease *Denies hx of pancreatitis, medullary TC Attended DM education 05/08/24 for G7 diagnostic Needs knee surgery and A1C is closer to 6.5 % She has been trying to lose weight but has not been successful. She lost 14 lb on Trulicity but had severe diarrhea. Current weight 281 lb. States she is down 17 lb. BMI 49.79 Tolerating Mounjaro. Less appetite Some constipation but managing Current diabetes regimen is as follows: Mounjaro 5 mg weekly Previous DM medications: Metformin--vomiting--states she was put on high dose without titration; unsure if it was ER form. Trulicity 0.75 mg ---diarrhea, abdominal pain Glipizide she is checking her blood glucose times daily. she does bring a log book today for review. LDE Blood Sugar Frequency: 145 to 200 (with prednisone) Hypoglycemia frequency: occasionally --was the lowest of 72 but felt symptomatic Hypoglycemia awareness: Yes Regarding symptoms of hypoglycemia, she is not experiencing any symptoms such as polyuria, polydipsia, nocturia or rapid weight loss or blurry vision, Overall, the patient has no acute complaints at this time. Hypothyroidism: Postoperative Taking Synthroid (AIDA) 200 mcg daily Monday through Monday, 1/2 pill on Monday and none on Sundays (avg 157 mcg daily) Tried generic levothyroxine and was not controlled. Insurance is denying AIDA anyway however Synthroid is the only thing [facility] carries. Labs from 11/12/24 TSH 2.38; free T4 1.6 PAST MEDICAL HISTORY Diagnosis Date Acute deep vein thrombosis (DVT) of popliteal vein of left lower extremity (HCC) Four DVT's last one 20 years ago- control- and after fracture Asymptomatic postmenopausal status (age-related) (natural) 03/2000 LMP 03/2000 CHF (congestive heart failure) (HCC) Colon cancer (HCC) 2018 Colorectal cancer (HCC) Endocarditis 2017 Essential hypertension 08/24/2018 Gastroesophageal reflux disease without esophagitis 08/24/2018 GERD (gastroesophageal reflux disease) Irritable bowel syndrome Irritable bowel Syndrome Kidney stones 2004 Left-sided chest wall pain 07/17/2016 Multiple gastric ulcers 2020 MARILIA (obstructive sleep apnea) 08/24/2018 Other hyperlipidemia 08/24/2018 Paroxysmal atrial fibrillation (HCC) Personal history of malignant neoplasm of breast 1996 1996 Breast cancer, clinical stage 1 infiltrating carcinoma left breast Phlebitis and thrombophlebitis of other deep vessels of lower extremities Phlebitis Phlebitis and thrombophlebitis of other deep vessels of lower extremities history of 3 DVTs Left Leg PMH - PAST MEDICAL HISTORY OF 09/1991 pap abnormal cells derived from serve dysplasia PMH - PAST MEDICAL HISTORY OF 11/1991 pap moderate - severe dysplasia Postoperative hypothyroidism 08/24/2018 Pre-diabetes Rheumatoid arthritis (HCC) 08/24/2018 Shingles Thyroid disease PAST SURGICAL HISTORY Procedure Laterality Date CARDIAC CATH 2016 CHOLECYSTECTOMY 2000 COLONOSCOPY 11/08/2011 Dr. Esteban-Random Bx-unremarkable. Sigmoid Bx-focal hyperplastic changes. COLONOSCOPY 03/31/2015 Dr. Esteban-evidence of large scar in the perianal area secondary to resection of SCC 2011. Random Bx's-unremarkable. COLONOSCOPY 04/28/2020 Dr. Esteban-bilious gastric fluid. Bile gastritis. Antrum Bx-unremarkable, HP negative. GEJ Bx-mild inflammation. COLONOSCOPY DIAGNOSTIC 11/01/2022 COLPOSCOPY CERVIX UPPER/ADJACENT VAGINA 12/1991 Colposcopy CONIZATION CERVIX W/WO D&C RPR ELTRD EXC 01/1992 CONE BX, focal atypia EGD 03/31/2015 Dr. Esteban-HH. D2-unremarkable. Stomach body Bx-mild reactive gastropathy, HP negative. Stomach polyps-fundic gland. EGD 12/29/2017 Dr. Esteban-small HH. Multiple gastric polyps-. Non-bleeding erosive gastropathy. Bilious gastric fluid. EGD 2019 EGD DIAGNOSTIC 11/01/2022 FIBROSCAN 03/31/2020 S3, F4 LIG/TRNSXJ FLP TUBE ABDL/VAG APPR UNI/BI history of Tubal ligation LIVER BIOPSY 02/21/2002 hepatic steatosis, moderate and diffuse. Mild portal fibrosis with chronic non- specific inflammation no evidence of cirrhosis. MASTEC PARTIAL W AXILL NODE REMOV 06/1997 left - had radiation and chemo MRI BREAST BIOPSY 1996 excisional Breast BX, BREAST CANCER, clinical stage1 infiltrating carcinoma left breast PAST SURGICAL HISTORY OF 07/2008 had "fatty tumor" removed from back PAST SURGICAL HISTORY OF 01/02/2012 excision perianal lesion-invasive moderately differentiated squamous cell CA PAST SURGICAL HISTORY OF 08/29/2018 Excision of 5 x 6 cm posterior back mass, PAST SURGICAL HISTORY OF Left scope knee PAST SURGICAL HISTORY OF Partial thyroidectomy THYROIDECTOMY TOTAL/COMPLETE 1973 FAMILY HISTORY Problem Relation Age of Onset Breast Cancer Maternal Grandmother Breast Cancer Paternal Grandmother Cancer Paternal Grandfather bone cancer Prostate Cancer Paternal Grandfather Coronary Artery Disease Father Kidney Disease Father Diabetes Other mat grt grdf Liver Cancer Brother Hypertension Mother No Known Problems Daughter Diabetes Son Heart Brother Heart Brother Colon Cancer No Family History other (Blood Clot) No Family History Social History Tobacco Use Smoking status: Former Current packs/day: 0.00 Average packs/day: 1 pack/day for 15.0 years (15.0 ttl pk-yrs) Types: Cigarettes Start date: 09/11/1974 Quit date: 09/11/1989 Years since quittin.3 Passive exposure: Never Smokeless tobacco: Never Vaping Use Vaping status: Never Used Substance Use Topics Alcohol use: No Comment: occasional, rare Drug use: Never Comment: a few times a year Allergies As of Date: 01/17/2025 Allergen Noted Reaction ADHESIVE TAPE 01/07/2002 AVELOX [MOXIFLOXACIN HCL] 02/16/2009 BIAXIN [CLARITHROMYCIN] 02/17/2009 Hives and GI Upset ERYC [ERYTHROMYCIN] 02/16/2009 Swelling METFORMIN 05/25/2022 GI Upset PENICILLINS 07/07/2003 QUINOLONES 07/12/2004 REMICADE [INFLIXIMAB] 10/21/2020 Shortness of Breath SPIRONOLACTONE 05/14/2020 Intolerance SUTURES 11/28/2023 Other: See Comments DEMEROL [MEPERIDINE (PF)] 03/14/2012 Other: See Comments Fully Assessed 01/17/2025 Current Outpatient Medications Medication Sig Dispense Refill levothyroxine (SYNTHROID) 200 mcg tablet Take one tablet Monday through Monday,and half a pill on Saturdays and none on Sundays. 90 tablet 3 ONETOUCH ULTRA TEST test strip Use as directed to check glucose once daily. E11.9 100 Each 3 ONETOUCH ULTRASOFT LANCETS Use as directed to check glucose once daily.E11.9 100 Each 3 metoprolol tartrate, short acting, (LOPRESSOR) 25 mg tablet 1 tablet with food Orally Twice a day for 30 day(s) sucralfate (CARAFATE) 1 gram tablet Dissolve 1 tablet into 1-2 tbsp water and drink as a slurry twice daily. Do not eat or drink for 30 mins after taking. 60 tablet 11 Blood-Glucose Meter (ONETOUCH ULTRA2 METER) monitoring kit Use to test blood sugar daily, DX: E11.9, NIDDM 1 Each 0 omeprazole (PRILOSEC) 40 mg capsule TAKE 1 CAPSULE BY MOUTH ONCE DAILY 90 capsule 1 losartan (COZAAR) 25 mg tablet Take 0.5 tablets by mouth once daily. (Patient taking differently: Take 25 mg by mouth once daily.) 45 tablet 3 flecainide (TAMBOCOR) 100 mg tablet Take 1 tablet by mouth every 12 hours. 180 tablet 3 apixaban (ELIQUIS) 5 mg tab(s) Take 1 tablet by mouth twice daily. 180 tablet 3 furosemide (LASIX) 20 mg tablet Take 2 tablets by mouth every other day. potassium chloride (K-TAB) 10 mEq tablet Take 1 tablet by mouth once daily. 90 tablet 3 traMADol (ULTRAM) 50 mg tablet Take 1 tablet by mouth as directed. albuterol HFA (PROVENTIL HFA, VENTOLIN HFA) 90 mcg/actuation inhaler as needed. golimumab (SIMPONI ARIA INTRAVENOUS) Inject intravenously every 8 weeks. 2mg/kg (242mg) CPAP celecoxib (CELEBREX) 200 mg capsule Take 1 capsule by mouth once daily. acetaminophen(TYLENOL ARTHRITIS 650 MG TAB) Take 2 tablets daily. 0 No current facility-administered medications for this visit. REVIEW OF SYSTEMS Review of Systems Respiratory: Negative for difficulty breathing. Cardiovascular: Negative for chest pain. Gastrointestinal: Negative for nausea, vomiting, diarrhea and constipation. PHYSICAL EXAMINATION Wt 127.5 kg (281 lb) BMI 49.79 kg/m2 Physical Exam Neurological: Mental Status: She is alert and oriented to person, place, and time. Psychiatric: Mood and Affect: Mood normal. Behavior: Behavior normal. DATA Creatinine Date Value Ref Range Status 11/12/2024 0.64 0.58 - 0.96 mg/dL Final Hemoglobin A1C (%) Date Value 11/12/2024 7.2 03/12/2020 6.4 Hemoglobin A1C (POCT) (%) Date Value 04/17/2024 7.5 ) No components found for: "URINEALBUMIN" Cholesterol, Total (mg/dL) Date Value 11/12/2024 187 04/14/2020 134 04/14/2020 134 HDL Cholesterol (mg/dL) Date Value 11/12/2024 41 04/14/2020 48 04/14/2020 48 LDL Cholesterol, Calculated (mg/dL) Date Value 11/12/2024 121 LDL (mg/dL) Date Value 06/07/2014 144 LDL Calculated (mg/dL) Date Value 04/14/2020 67 04/14/2020 67 Triglyceride (mg/dL) Date Value 11/12/2024 124 04/14/2020 97 04/14/2020 97 IMPRESSION: Ms. Bella is a 69 year old female here for evaluation of DM Type 2 complicated by hypertension, hyperlipidemia, peripheral neuropathy, hypothyroidism, CAD obesity RECOMMENDATIONS: (E11.42) Type 2 diabetes mellitus with diabetic polyneuropathy, without long- term current use of insulin (HCC) (primary encounter diagnosis) Comment: Glycemic control is improving. Increase Mounjaro. She needs to have an A1C closer to 6.5 to have knee surgery and they also recommended weight loss. Neuropathy is monitored. Foot exam with follow up--advised to follow up in person Plan: HEMOGLOBIN A1C, tirzepatide (MOUNJARO) 7.5 mg/0.5 mL pen injector Increase Mounjaro to 7.5mg weekly A1C on or after February 12. Follow up mid May (E89.0) Postoperative hypothyroidism Comment: She has been euthyroid on the present dose of Synthroid. Generic levothyroxine was ineffective. Insurance denied AIDA however [facility] only carries AIDA Plan: continue synthroid (E66.813, Z68.42) Class 3 severe obesity with serious comorbidity and body mass index (BMI) of 45.0to 49.9 in adult, unspecified obesity type Comment: Body mass index is 49.79 kg/m . Reports she is down 17 lb with effort and mounjaro use Plan: Encouraged increase dietary and exercise efforts as able (E78.00) Pure hypercholesterolemia Comment/Plan: per PCP/cardiology; not currently on a statin (I10) Essential hypertension Comment/Plan: per PCP/cardiology; she is on an ARB (I25.10) Coronary artery disease involving [place] coronary artery of [place] heart without angina pectoris Comment/Plan: per cardiology Medical Decision Making: Level: 4 - Moderate This Team Access Model visit is a virtual encounter. It required patient- provider interaction for the medical decision making as documented above. Eliceo Ambriz, MSN, COMMUTER PILOT, RN CARDIOVASCULAR ICU-C, [facility] Endocrinology [facility] Medical Office [facility]/[address] [place], [place] [address] Fax: documented in [facility] encounter[facility] NoteHNO ID: [id number] Author: ELICEO AMBRIZ APRN.SALES AND MARKETING ASSISTANT Service: ? Author Type: Nurse Practitioner Type: Progress Notes Filed: 01/17/2025 07:55 Note Text: Reason for Consultation: DM Type 2 Referring Physician: Leonora Davalos ([facility]) [address] [address] *visit is being conducted virtually today *I have communicated my name and active licensure. The patient's identity and physical location were verified at the time of this visit. Either the patient or their legal sales representative publications has been informed of the risks and benefits of -- and alternatives to -- treatment through a remote evaluation and consents to proceed with the evaluation remotely. HISTORY OF PRESENT ILLNESS Ms. Bella is a 69 year old female presenting here today for a follow up of DM Type 2. As I recall, she was initially diagnosed with diabetes about age 65. Patient of Dr. Decker LV 11/08/24 A1C 7.2 on 11/12/24 History of diabetes type 2, peripheral neuropathy, HLD, hypothyroidism, DVT s/p IVC filter, CHF, Afib, colon cancer, endocarditis, HTN, GERD, IBS, nephrolithiasis, gastric ulcers, breast cancer, phlebitis, Rheumatoid, arthritis shingles, MARILIA, CAD, liver disease *Denies hx of pancreatitis, medullary TC Attended DM education 8/28/24 for G7 diagnostic Needs knee surgery and A1C is closer to 6.5 % She has been trying to lose weight but has not been successful. She lost 14 lb on Trulicity but had severe diarrhea. Current weight 281 lb. States she is down 17 lb. BMI 49.79 Tolerating Mounjaro. Less appetite Some constipation but managing Current diabetes regimen is as follows: Mounjaro 5 mg weekly Previous DM medications: Metformin--vomiting--states she was put on high dose without titration; unsure if it was ER form. Trulicity 0.75 mg ---diarrhea, abdominal pain Glipizide she is checking her blood glucose times daily. she does bring a log book today for review. LDE Blood Sugar Frequency: 145 to 200 (with prednisone) Hypoglycemia frequency: occasionally --was the lowest of 72 but felt symptomatic Hypoglycemia awareness: Yes Regarding symptoms of hypoglycemia, she is not experiencing any symptoms such as polyuria, polydipsia, nocturia or rapid weight loss or blurry vision, Overall, the patient has no acute complaints at this time. Hypothyroidism: Postoperative Taking Synthroid (AIDA) 200 mcg daily Monday through Monday, 1/2 pill on Monday and none on Sundays (avg 157 mcg daily) Tried generic levothyroxine and was not controlled. Insurance is denying AIDA anyway however Synthroid is the only thing [facility] carries. Labs from 11/12/24 TSH 2.38; free T4 1.6 PAST MEDICAL HISTORY Diagnosis Date Acute deep vein thrombosis (DVT) of popliteal vein of left lower extremity (HCC) Four DVT's last one 20 years ago- control- and after fracture Asymptomatic postmenopausal status (age-related) (natural) 03/2000 LMP 03/2000 CHF (congestive heart failure) (HCC) Colon cancer (HCC) 2018 Colorectal cancer (HCC) Endocarditis 2017 Essential hypertension 08/24/2018 Gastroesophageal reflux disease without esophagitis 08/24/2018 GERD (gastroesophageal reflux disease) Irritable bowel syndrome Irritable bowel Syndrome Kidney stones 2004 Left-sided chest wall pain 07/17/2016 Multiple gastric ulcers 2020 MARILIA (obstructive sleep apnea) 08/24/2018 Other hyperlipidemia 08/24/2018 Paroxysmal atrial fibrillation (HCC) Personal history of malignant neoplasm of breast 1996 1996 Breast cancer, clinical stage 1 infiltrating carcinoma left breast Phlebitis and thrombophlebitis of other deep vessels of lower extremities Phlebitis Phlebitis and thrombophlebitis of other deep vessels of lower extremities history of 3 DVTs Left Leg PMH - PAST MEDICAL HISTORY OF 09/1991 pap abnormal cells derived from serve dysplasia PMH - PAST MEDICAL HISTORY OF 11/1991 pap moderate - severe dysplasia Postoperative hypothyroidism 08/24/2018 Pre-diabetes Rheumatoid arthritis (HCC) 08/24/2018 Shingles Thyroid disease PAST SURGICAL HISTORY Procedure Laterality Date CARDIAC CATH 2017 CHOLECYSTECTOMY 2000 COLONOSCOPY 11/08/2011 Dr. Esteban-Random Bx-unremarkable. Sigmoid Bx-focal hyperplastic changes. COLONOSCOPY 03/31/2015 Dr. Esteban-evidence of large scar in the perianal area secondary to resection of SCC 2011. Random Bx's-unremarkable. COLONOSCOPY 04/28/2020 Dr. Esteban-bilious gastric fluid. Bile gastritis. Antrum Bx-unremarkable, HP negative. GEJ Bx-mild inflammation. COLONOSCOPY DIAGNOSTIC 11/01/2022 COLPOSCOPY CERVIX UPPER/ADJACENT VAGINA 12/1991 Colposcopy CONIZATION CERVIX W/WO DANDC RPR ELTRD EXC 01/1992 CONE BX, focal atypia EGD 03/31/2015 Dr. Esteban-HH. D2-unremarkable. Stomach body Bx-mild reactive gastropathy, HP negative. Stomach polyps-fundic gland. EGD 12/29/2017 Dr. Esteban-small HH. Multiple gastric polyps-. Non-bleeding erosive gastropathy. (more content not included)...[facility]05-02-2025 Evaluation note* Diagnosis Onset Date Resolution Status Admit Date Cough acute January 10, 2025 2:35pm GERD (gastroesophageal reflu x disease) acute January 10, 2025 2: 35pm Dyspnea on exertion chronic January 102024 2:35pm Obesity chronic January 10, 2025 2:35pm Sleep apnea chronic January 10, 2025 2:35pm Constipation acute January 23 7:26am Diarrhea acute January 23, 2025 7:26am GERD (gastroesophageal reflu x disease) acute January 23, 2025 7 :26am Fatty liver chronic January 23 7:26am Pharyngitis acute February 20 5:36pm Left otitis media resolved February 202024 5:36pm [facility] Work Phone: 1(685) 397-424204-21-2025 Telephone encounter Note* Telephone Encounter - Marissa Tim RN - 12/30/2024 4:02 PM EDT Received a VM from Lia at [facility] asking for a new RX stating that they needed a new RX for the Synthroid. Per [facility] the the RX needs to be generic because her insurance does not cover brand but [facility] does fill for brand any ways. Please resend. Attached is RX. Thank you [facility]04-21-2025 Miscellaneous Notes* Telephone Encounter - Marissa Tim RN - 12/30/2024 4:02 PM EDT Received a VM from Lia at [facility] asking for a new RX stating that they needed a new RX for the Synthroid. Per [facility] the the RX needs to be generic because her insurance does not cover brand but [facility] does fill for brand any ways. Please resend. Attached is RX. Thank you [facility] Telephone encounter Note * Telephone Encounter - Marissa Tim RN - 12/27/2024 12:04 PM EDT Addressed in an another encounter. Closed [facility]04-18-2025 Miscellaneous Notes* Telephone Encounter - Marissa Tim RN - 12/27/2024 12:04 PM EDT Addressed in an another encounter. Closed * Telephone Encounter - Marissa Tim RN - 12/12/2024 9:47 AM EDT Please review and advise. DAJUAN: 11/08/24 NOV: 01/17/25 [facility] [place] Telephone encounter Note * Telephone Encounter - Marissa Tim RN - 12/12/2024 9:47 AM EDT Please review and advise. DAJUAN: 11/08/24 NOV: 01/17/25 [facility]03-29-2025 Radiology Diagnostic study [facility]03-05-2025 Evaluation note* Diagnosis Onset Date Resolution Status Admit Date Chronic diastolic (congestiv e) heart failure chronic November 13, 2024 9:49am Dyspnea on exertion chronic November 13, 2024 9:49am Morbid obesity with BMI of 45.0-49.9, adult chronic November 13, 2024 9:49am Paroxysmal atrial fibrillation chron November 13, 2024 9:49am Pure hypercholesterolemia chronic November 13, 2024 9:49am Bilateral acute otitis media acute November 19, 2024 7:16pm Bronchitis, acute acute November 092024 7:16pm CHF (congestive heart failure) acute December 04, 2024 3:06pm Type 2 diabetes mellitus wit h hyperglycemia acute December 04, 2024 3:06pm Cough acute January 10, 2025 2:35pm GERD (gastroesophageal reflu x disease) acute January 10, 2025 2: 35pm Dyspnea on exertion chronic January 102024 2:35pm Obesity chronic January 10, 2025 2:35pm Sleep apnea chronic January 10, 2025 2:35pm [facility] Work Phone: 1(538) 348-978803-05-2025 Evaluation note* Diagnosis Onset Date Resolution Status Admit Date Chronic diastolic (congestiv e) heart failure chronic November 13, 2024 9:49am Dyspnea on exertion chronic November 13, 2024 9:49am Morbid obesity with BMI of 45.0-49.9, adult chronic November 13, 2024 9:49am Paroxysmal atrial fibrillation chron November 13, 2024 9:49am Pure hypercholesterolemia chronic November 13, 2024 9:49am Bilateral acute otitis media acute November 19, 2024 7:16pm Bronchitis, acute acute November 092024 7:16pm CHF (congestive heart failure) acute December 04, 2024 3:06pm Type 2 diabetes mellitus wit h hyperglycemia acute December 04, 2024 3:06pm Cough acute January 10, 2025 2:35pm GERD (gastroesophageal reflu x disease) acute January 10, 2025 2: 35pm Dyspnea on exertion chronic January 102024 2:35pm Obesity chronic January 10, 2025 2:35pm Sleep apnea chronic January 10, 2025 2:35pm Constipation acute January 23 7:26am Diarrhea acute January 23, 2025 7:26am GERD (gastroesophageal reflu x disease) acute January 23, 2025 7:26am [facility] Work Phone: 1(105) 523-633103-05-2025 Evaluation note* Diagnosis Onset Date Resolution Status Admit Date Chronic diastolic (congestiv e) heart failure chronic November 13, 2024 9:49am Dyspnea on exertion chronic November 13, 2024 9:49am Morbid obesity with BMI of 45.0-49.9, adult chronic November 13, 2024 9:49am Paroxysmal atrial fibrillation chron ic November 13, 2024 9:49am Pure hypercholesterolemia chronic November 13, 2024 9:49am Bilateral acute otitis media acute November 19, 2024 7:16pm Bronchitis, acute acute November 092024 7:16pm CHF (congestive heart failure) acute December 04, 2024 3:06pm Type 2 diabetes mellitus wit h hyperglycemia acute December 04, 2024 3:06pm Cough acute January 10, 2025 2:35pm GERD (gastroesophageal reflu x disease) acute January 10, 2025 2: 35pm Dyspnea on exertion chronic January 102024 2:35pm Obesity chronic January 10, 2025 2:35pm Sleep apnea chronic January 10, 2025 2:35pm Constipation acute January 23 7:26am Diarrhea acute January 23, 2025 7:26am GERD (gastroesophageal reflu x disease) acute January 23, 2025 7:26am Fatty liver chronic January 23 7:26am [facility] Work Phone: 1(778) 674-637302-28-2025 History of Present illness Narrative* Eliceo Ambriz, SHARLA.SALES AND MARKETING ASSISTANT - 11/08/2024 7:30 AM EST Reason for Consultation: DM Type 2 Referring Physician: Leonora Davalos (Lyndon) [address] [facility] [address] [facility] [address] *visit is being conducted virtually today *I have communicated my name and active licensure. The patient's identity and physical location were verified at the time of this visit. Either the patient or their legal sales representative publications has been informed of the risks and benefits of -- and alternatives to -- treatment through a remote evaluation and consents to proceed with the evaluation remotely. HISTORY OF PRESENT ILLNESS Ms. Bella is a 68 year old female presenting here today for a follow up of DM Type 2. As I recall,she was initially diagnosed with diabetes about age 65. Patient of Dr. Decker; LV 04/17/24 A1C 7.5 on 04/17/24 History of diabetes type 2, peripheral neuropathy, HLD, hypothyroidism, DVT s/p IVC filter, CHF, Afib, colon cancer, endocarditis, HTN, GERD, IBS, nephrolithiasis, gastric ulcers, breast cancer, phlebitis, Rheumatoid, arthritis shingles, MARILIA, CAD, liver disease *Denies hx of pancreatitis, medullary TC Recently had the flu and was holding glipizide.she is feeling better. She never tried alternatively prescribed Ozempic due to concern about possible side effects Attended DM education 05/08/24 for G7 diagnostic Needs knee surgery and A1C under 7% She has been trying to lose weight but has not been successful. She lost 14 lb on Trulicity but had severe diarrhea. Current weight 189lb Current diabetes regimen is as follows: Glipizide 5 mg 1/2 tab BID Previous DM medications: Metformin--vomiting--states she was put on high dose without titratioin; unsure if it was ER form. Trulicity 0.75 mg ---diarrhea, abdominal pain she is checking her blood glucose 2-3 times daily. she does bring a log book today for review. LDE Blood Sugar Frequency: FBS 286 today; 134 to 160 acL -- acS 105-130 Hypoglycemia frequency: occasionally ---if meal delayed; as low as 62 Hypoglycemia awareness: Yes Regarding symptoms of hypoglycemia, she is not experiencing any symptoms such as polyuria, polydipsia, nocturia or rapid weight loss or blurry vision, Overall, the patient has no acute complaints at this time. Hypothyroidism: Postoperative Taking Synthroid (AIDA) 200 mcg daily Monday through Monday, 1/2 pill on Monday and none on Sundays (avg 157 mcg daily) Tried generic levothyroxine and was not controlled. Insurance is denying AIDA anyway however Synthroid is the only thing [facility] carries. Labs from 05/03/24: TSH 2.80; free T4 1.5 PAST MEDICAL HISTORY Diagnosis Date Acute deep vein thrombosis (DVT) of popliteal vein of left lower extremity (HCC) Four DVT's last one 20 years ago- control- and after fracture Asymptomatic postmenopausal status (age-related) (natural) 03/2000 LMP 03/2000 CHF (congestive heart failure) (HCC) Colon cancer (HCC) 2018 Colorectal cancer (HCC) Endocarditis 2017 Essential hypertension 08/24/2018 Gastroesophageal reflux disease without esophagitis 08/24/2018 GERD (gastroesophageal reflux disease) Irritable bowel syndrome Irritable bowel Syndrome Kidney stones 2004 Left-sided chest wall pain 07/17/2016 Multiple gastric ulcers 2020 MARILIA (obstructive sleep apnea) 08/24/2018 Other hyperlipidemia 08/24/2018 Paroxysmal atrial fibrillation (HCC) Personal history of malignant neoplasm of breast 1996 1996 Breast cancer, clinical stage 1 infiltrating carcinoma left breast Phlebitis and thrombophlebitis of other deep vessels of lower extremities Phlebitis Phlebitis and thrombophlebitis of other deep vessels of lower extremities history of 3 DVTs Left Leg PMH - PAST MEDICAL HISTORY OF 09/1991 pap abnormal cells derived from serve dysplasia PMH - PAST MEDICAL HISTORY OF 11/1991 pap moderate - severe dysplasia Postoperative hypothyroidism 08/24/2018 Pre-diabetes Rheumatoid arthritis (HCC) 08/24/2018 Shingles Thyroid disease PAST SURGICAL HISTORY Procedure Laterality Date CARDIAC CATH 2017 CHOLECYSTECTOMY 2000 COLONOSCOPY 11/08/2011 Dr. Esteban-Random Bx-unremarkable. Sigmoid Bx-focal hyperplastic changes. COLONOSCOPY 03/31/2015 Dr. Esteban-evidence of large scar in the perianal area secondary to resection of SCC 2011. Random Bx's-unremarkable. COLONOSCOPY 04/28/2020 Dr. Esteban-bilious gastric fluid. Bile gastritis. Antrum Bx-unremarkable, HP negative. GEJ Bx-mild inflammation. COLONOSCOPY DIAGNOSTIC 11/01/2022 COLPOSCOPY CERVIX UPPER/ADJACENT VAGINA 12/1991 Colposcopy CONIZATION CERVIX W/WO D&C RPR ELTRD EXC 01/1992 CONE BX, focal atypia EGD 03/31/2015 Dr. Esteban-HH. D2-unremarkable. Stomach body Bx-mild reactive gastropathy, HP negative. Stomach polyps-fundic gland. EGD 12/29/2017 Dr. Esteban-small HH. Multiple gastric polyps-. Non-bleeding erosive gastropathy. Bilious gastric fluid. EGD 2019 EGD DIAGNOSTIC 11/01/2022 FIBROSCAN 03/31/2020 S3, F4 LIG/TRNSXJ FLP TUBE ABDL/VAG APPR UNI/BI history of Tubal ligation LIVER BIOPSY 02/21/2002 hepatic steatosis, moderate and diffuse. Mild portal fibrosis with chronic non- specific inflammation no evidence of cirrhosis. MASTEC PARTIAL W AXILL NODE REMOV 06/1997 left - had radiation and chemo MRI BREAST BIOPSY 1996 excisional Breast BX, BREAST CANCER, clinical stage1 infiltrating carcinoma left breast PAST SURGICAL HISTORY OF 07/2008 had "fatty tumor" removed from back PAST SURGICAL HISTORY OF 01/02/2012 excision perianal lesion-invasive moderately differentiated squamous cell CA PAST SURGICAL HISTORY OF 08/29/2018 Excision of 5 x 6 cm posterior back mass, PAST SURGICAL HISTORY OF Left scope knee PAST SURGICAL HISTORY OF Partial thyroidectomy THYROIDECTOMY TOTAL/COMPLETE 1973 FAMILY HISTORY Problem Relation Age of Onset Breast Cancer Maternal Grandmother Breast Cancer Paternal Grandmother Cancer Paternal Grandfather bone cancer Prostate Cancer Paternal Grandfather Coronary Artery Disease Father Kidney Disease Father Diabetes Other mat grt grdf Liver Cancer Brother Hypertension Mother No Known Problems Daughter Diabetes Son Heart Brother Heart Brother Colon Cancer No Family History other (Blood Clot) No Family History Social History Tobacco Use Smoking status: Former Current packs/day: 0.00 Average packs/day: 1 pack/day for 15.0 years (15.0 ttl pk-yrs) Types: Cigarettes Start date: 09/11/1974 Quit date: 09/11/1989 Years since quittin.1 Passive exposure: Never Smokeless tobacco: Never Vaping Use Vaping status: Never Used Substance Use Topics Alcohol use: No Comment: occasional, rare Drug use: Never Comment: a few times a year Allergies As of Date: 11/08/2024 Allergen Noted Reaction ADHESIVE TAPE 01/07/2002 AVELOX [MOXIFLOXACIN HCL] 02/16/2009 BIAXIN [CLARITHROMYCIN] 02/17/2009 Hives and GI Upset ERYC [ERYTHROMYCIN] 02/16/2009 Swelling METFORMIN 05/25/2022 GI Upset PENICILLINS 07/07/2003 QUINOLONES 07/12/2004 REMICADE [INFLIXIMAB] 10/21/2020 Shortness of Breath SPIRONOLACTONE 05/14/2020 Intolerance SUTURES 11/28/2023 Other: See Comments DEMEROL [MEPERIDINE (PF)] 03/14/2012 Other: See Comments Fully Assessed 11/08/2024 Current Outpatient Medications Medication Sig Dispense Refill SYNTHROID 200 mcg tablet Take one tablet Monday through Monday,and half a pill on Saturdays and none on Sundays. 66 tablet 0 glipiZIDE (GLUCOTROL) 5 mg tablet TAKE 1/2 (ONE-HALF) OF A TABLET BY MOUTH TWICE DAILY BEFORE MEALS30 tablet 2 ONETOUCH ULTRA TEST test strip Use as directed to check glucose once daily. E11.9 100 Each 3 ONETOUCH ULTRASOFT LANCETS Use as directed to check glucose once daily.E11.9 100 Each 3 metoprolol tartrate, short acting, (LOPRESSOR) 25 mg tablet 1 tablet with food Orally Twice a day for 30 day(s) sucralfate (CARAFATE) 1 gram tablet Dissolve 1 tablet into 1-2 tbsp water and drink as a slurry twice daily. Do not eat or drink for 30 mins after taking. 60 tablet 11 Blood-Glucose Meter (ONETOUCH ULTRA2 METER) monitoring kit Use to test blood sugar daily, DX: E11.9, NIDDM 1 Each 0 omeprazole (PRILOSEC) 40 mg capsule TAKE 1 CAPSULE BY MOUTH ONCE DAILY 90 capsule 1 losartan (COZAAR) 25 mg tablet Take 0.5 tablets by mouth once daily. (Patient taking differently: Take 25 mg by mouth once daily.) 45 tablet 3 flecainide (TAMBOCOR) 100 mg tablet Take 1 tablet by mouth every 12 hours. 180 tablet 3 apixaban (ELIQUIS) 5 mg tab(s) Take 1 tablet by mouth twice daily. 180 tablet 3 furosemide (LASIX) 20 mg tablet Take 2 tablets by mouth every other day. potassium chloride (K-TAB) 10 mEq tablet Take 1 tablet by mouth once daily. 90 tablet 3 traMADol (ULTRAM) 50 mg tablet Take 1 tablet by mouth as directed. albuterol HFA (PROVENTIL HFA, VENTOLIN HFA) 90 mcg/actuation inhaler as needed. golimumab (SIMPONI ARIA INTRAVENOUS) Inject intravenously every 8 weeks. 2mg/kg (242mg) CPAP celecoxib (CELEBREX) 200 mg capsule Take 1 capsule by mouth once daily. acetaminophen(TYLENOL ARTHRITIS 650 MG TAB) Take 2 tablets daily. 0 No current facility-administered medications for this visit. REVIEW OF SYSTEMS Answers submitted by the patient for this visit: Core Review of Systems (Submitted on 11/06/2024) Fever : No Night sweats: No Recent unintentional weight change: Yes Nasal Congestion: Yes Hearing Loss: No Vision Disturbance: Yes A cough: No Difficulty Breathing?: Yes Chest pain: No Irregular heartbeat: No Leg Swelling: Yes Nausea: Yes Diarrhea: Yes Black tarry stools: No Difficulty Urinating?: No Awaken at Night More Than Once to Urinate?: No Joint pain or stiffness: Yes Muscle aches: Yes Leg or Foot Discomfort at Night?: Yes A rash: No Dizziness: Yes Headaches: Yes PHYSICAL EXAMINATION There were no vitals taken for this visit. Physical Exam Neurological: Mental Status: She is alert and oriented to person, place, and time. Psychiatric: Mood and Affect: Mood normal. Behavior: Behavior normal. DATA Creatinine Date Value Ref Range Status 03/13/2024 0.74 0.58 - 0.96 mg/dL Final Hemoglobin A1C (%) Date Value 03/12/2020 6.4 Hemoglobin A1C (POCT) (%) Date Value 04/17/2024 7.5 ) No components found for: "URINEALBUMIN" Cholesterol, Total (mg/dL) Date Value 05/03/2023 223 04/14/2020 134 04/14/2020 134 HDL Cholesterol (mg/dL) Date Value 05/03/2023 50 04/14/2020 48 04/14/2020 48 LDL Cholesterol (mg/dL) Date Value 05/03/2023 141 LDL (mg/dL) Date Value 06/07/2014 144 LDL Calculated (mg/dL) Date Value 04/14/2020 67 04/14/2020 67 Triglyceride (mg/dL) Date Value 05/03/2023 162 04/14/2020 97 04/14/2020 97 IMPRESSION: Ms. Bella is a 68 year old female here for evaluation of DM Type 2 complicated by hypertension, hyperlipidemia, peripheral neuropathy, hypothyroidism, CAD obesity RECOMMENDATIONS: (E11.42) Type 2 diabetes mellitus with diabetic polyneuropathy, without long- term current use of insulin (HCC) (primary encounter diagnosis) Comment: Limited BG data to review today. Will update A1C. We reviewed side effects of Mounjaro. Neuropathy is monitored. Foot exam with follow up Plan: COMPREHENSIVE METABOLIC PANEL, HEMOGLOBIN A1C, ALBUMIN/CREATININE RATIO, URINE, LIPID PANEL BASIC, tirzepatide (MOUNJARO) 2.5 mg/0.5 mL pen injector Stop glipizide Start Mounjaro 2.5 mg weekly. Will advance slow based on tolerability Let me know in 4 wks how you are tolerating Mounjaro Labs this week or next Follow up in 3 months RN CARDIOVASCULAR ICU Pb (E89.0) Postoperative hypothyroidism Comment: She has been euthyroid on the present dose of Synthroid. Generic levothyroxine was ineffective. Insurance denied AIDA however [facility] only carries AIDA and she received a 90 day supply recently Plan: THYROID STIMULATING HORMONE, T4 FREE/FREE THYROXINE, SYNTHROID 200 mcg tablet TFT this week Continue current synthroid dose (E66.813, E66.01, Z68.43) Class 3 severe obesity with serious comorbidity and body mass index (BMI)of 50.0 to 59.9 in adult, unspecified obesity type (HCC) Comment: Body mass index is 50.68 kg/m . Plan: Encouraged increase dietary and exercise efforts as able Add GLP1 for DM but this may help with weight loss (E78.00) Pure hypercholesterolemia Comment/Plan: per PCP/cardiology; not currently on a statin (I10) Essential hypertension Comment/Plan: per PCP/cardiology; she is on an ARB (I25.10) Coronary artery disease involving [place] coronary artery of [place] heart without angina pectoris Comment/Plan: per cardiology Medical Decision Making: Level: 4 - Moderate This Team Access Model visit is a virtual encounter. It required patient- provider interaction for the medical decision making as documented above. Eliceo Ambriz, MSN, COMMUTER PILOT, RN CARDIOVASCULAR ICU-C, [facility] Endocrinology [facility] Medical Office [facility]/[address], [address] [place] [address] Fax: documented in this [facility] NoteHNO ID: [id number] Author: ELICEO AMBRIZ APRN.SERVANDO Service: ? Author Type: Nurse Practitioner Type: Progress Notes Filed: 11/08/2024 08:03 Note Text: Reason for Consultation: DM Type 2 Referring Physician: Leonora Davalos (Lyndon) [address] [address] *visit is being conducted virtually today *I have communicated my name and active licensure. The patient's identity and physical location were verified at the time of this visit. Either the patient or their legal sales representative publications has been informed of the risks and benefits of -- and alternatives to -- treatment through a remote evaluation and consents to proceed with the evaluation remotely. HISTORY OF PRESENT ILLNESS Ms. Bella is a 68 year old female presenting here today for a follow up of DM Type 2. As I recall, she was initially diagnosed with diabetes about age 65. Patient of Dr. Decker; LV 04/17/24 A1C 7.5 on 04/17/24 History of diabetes type 2, peripheral neuropathy, HLD, hypothyroidism, DVT s/p IVC filter, CHF, Afib, colon cancer, endocarditis, HTN, GERD, IBS, nephrolithiasis, gastric ulcers, breast cancer, phlebitis, Rheumatoid, arthritis shingles, MARILIA, CAD, liver disease *Denies hx of pancreatitis, medullary TC Recently had the flu and was holding glipizide.she is feeling better. She never tried alternatively prescribed Ozempic due to concern about possible side effects Attended DM education 05/08/24 for G7 diagnostic Needs knee surgery and A1C under 7% She has been trying to lose weight but has not been successful. She lost 14 lb on Trulicity but had severe diarrhea. Current weight 189lb Current diabetes regimen is as follows: Glipizide 5 mg 1/2 tab BID Previous DM medications: Metformin--vomiting--states she was put on high dose without titratioin; unsure if it was ER form. Trulicity 0.75 mg ---diarrhea, abdominal pain she is checking her blood glucose 2-3 times daily. she does bring a log book today for review. LDE Blood Sugar Frequency: FBS 286 today; 134 to 160 acL -- acS 105-130 Hypoglycemia frequency: occasionally ---if meal delayed; as low as 62 Hypoglycemia awareness: Yes Regarding symptoms of hypoglycemia, she is not experiencing any symptoms such as polyuria, polydipsia, nocturia or rapid weight loss or blurry vision, Overall, the patient has no acute complaints at this time. Hypothyroidism: Postoperative Taking Synthroid (AIDA) 200 mcg daily Monday through Monday, 1/2 pill on Monday and none on Sundays (avg 157 mcg daily) Tried generic levothyroxine and was not controlled. Insurance is denying AIDA anyway however Synthroid is the only thing [facility] carries. Labs from 05/03/24: TSH 2.80; free T4 1.5 PAST MEDICAL HISTORY Diagnosis Date Acute deep vein thrombosis (DVT) of popliteal vein of left lower extremity (HCC) Four DVT's last one 20 years ago- control- and after fracture Asymptomatic postmenopausal status (age-related) (natural) 03/2000 LMP 03/2000 CHF (congestive heart failure) (HCC) Colon cancer (HCC) 2018 Colorectal cancer (HCC) Endocarditis 2017 Essential hypertension 08/24/2018 Gastroesophageal reflux disease without esophagitis 08/24/2018 GERD (gastroesophageal reflux disease) Irritable bowel syndrome Irritable bowel Syndrome Kidney stones 2004 Left-sided chest wall pain 07/17/2016 Multiple gastric ulcers 2020 MARILIA (obstructive sleep apnea) 08/24/2018 Other hyperlipidemia 08/24/2018 Paroxysmal atrial fibrillation (HCC) Personal history of malignant neoplasm of breast 1996 1996 Breast cancer, clinical stage 1 infiltrating carcinoma left breast Phlebitis and thrombophlebitis of other deep vessels of lower extremities Phlebitis Phlebitis and thrombophlebitis of other deep vessels of lower extremities history of 3 DVTs Left Leg PMH - PAST MEDICAL HISTORY OF 09/1991 pap abnormal cells derived from serve dysplasia PMH - PAST MEDICAL HISTORY OF 11/1991 pap moderate - severe dysplasia Postoperative hypothyroidism 08/24/2018 Pre-diabetes Rheumatoid arthritis (HCC) 08/24/2018 Shingles Thyroid disease PAST SURGICAL HISTORY Procedure Laterality Date CARDIAC CATH 2017 CHOLECYSTECTOMY 2000 COLONOSCOPY 11/08/2011 Dr. Esteban-Random Bx-unremarkable. Sigmoid Bx-focal hyperplastic changes. COLONOSCOPY 03/31/2015 Dr. Esteban-evidence of large scar in the perianal area secondary to resection of SCC 2011. Random Bx's-unremarkable. COLONOSCOPY 04/28/2020 Dr. Esteban-bilious gastric fluid. Bile gastritis. Antrum Bx-unremarkable, HP negative. GEJ Bx-mild inflammation. COLONOSCOPY DIAGNOSTIC 11/01/2022 COLPOSCOPY CERVIX UPPER/ADJACENT VAGINA 12/1991 Colposcopy CONIZATION CERVIX W/WO DANDC RPR ELTRD EXC 01/1992 CONE BX, focal atypia EGD 03/31/2015 Dr. Esteban-HH. D2-unremarkable. Stomach body Bx-mild reactive gastropathy, HP negative. Stomach polyps-fundic gland. EGD 12/29/2017 Dr. Esteban-small HH. Multiple (more content not included)...[facility]02-25-2025 Telephone encounter Note* Telephone Encounter - Eliceo Ambriz APRN.CNP - 11/05/2024 4:36 PM EST Noted and agree Thank you [facility]02-25-2025 Miscellaneous Notes* Telephone Encounter - Eliceo Ambriz APRN.CNP - 11/05/2024 4:36 PM EST Noted and agree Thank you * Telephone Encounter - Marissa Tim RN - 11/05/2024 4:15 PM EST Answered patient's questions. Patient was not taking her glipizide because she was vomiting and having diarrhea. Patient stated her BS was 250 and she did take 1 pill today and it came down to 105. Patient stated she has not vomited today, she is staying hydrated as much as she can. This nurse stated as if she is feeling better tomorrow and can hold food down more she should go back to her normalregimen for her glipizide. This nurse verbalized the importance of staying hydrated. Patient verbalized understanding and all questions were answered. * Telephone Encounter - Corrie Hall - 11/04/2024 10:44 AM EST PT has had the flu with vomiting and diarrhea x 4 days. PT stopped taking her diabetes medication on evening due to symptoms. PT is requesting a return to discuss symptoms and medication use, call [phone]. [facility] Tele[facility] encounter Note * Telephone Encounter - Marissa Tim, JONI - 11/05/2024 4:15 PM EST Answered patient's questions. Patient was not taking her glipizide because she was vomiting and having diarrhea. Patient stated her BS was 250 and she did take 1 pill today and it came down to 105. Patient stated she has not vomited today, she is staying hydrated as much as she can. This nurse stated as if she is feeling better tomorrow and can hold food down more she should go back to her normalregimen for her glipizide. This nurse verbalized the importance of staying hydrated. Patient verbalized understanding and all questions were answered. [facility] Telephone encounter Note* Telephone Encounter - Corrie Hall - 11/04/2024 10:44 AM EST PT has had the flu with vomiting and diarrhea x 4 days. PT stopped taking her diabetes medication on evening due to symptoms. PT is requesting a return to discuss symptoms and medication use, call [phone]. [facility] Telephone encounter Note* Telephone Encounter - Joaquin Belle - 10/28/2024 5:00 PM EST Name of caller: Alexandra Bella Relation to patient: patient Contact phone number: [phone] Appointment scheduled with: Dr. Michelle Appointment date & time: 6/16/25 Reason for visit (are you having any symptoms) : PT wants to establish coordinate and manage her diabetes and Heart medication. Transportation issues/ concerns: no Special accommodations? ( wheel chair, etc) : none Current medications: Pt. Will bring list to visit Any refills need: n/a Any chronic conditions the provider should be aware of: heart pt & diabetic . [id number] Miscellaneous Notes* Telephone Encounter - Joaquin Belle - 10/28/2024 5:00 PM EST Name of caller: Alexandra Bella Relation to patient: patient Contact phone number: [phone] Appointment scheduled with: Dr. Michelle Appointment date & time: 02/24/25 Reason for visit (are you having any symptoms) : PT wants to establish coordinate and manage her diabetes and Heart medication. Transportation issues/ concerns: no Special accommodations? ( wheel chair, etc) : none Current medications: Pt. Will bring list to visit Any refills need: n/a Any chronic conditions the provider should be aware of: heart pt & diabetic . documented in this [facility]02-11-2025 Telephone encounter Note* Telephone Encounter - Joy De La Garza - 10/22/2024 11:07 AM EST Patient is added to the wait list [facility]02-[facility]25 Miscellaneous Notes* Telephone Encounter - Joy De La Garza - 10/22/2024 11:07 AM EST Patient is added to the wait list * Telephone Encounter - Neema Berman MA - 10/22/2024 11:01 AM EST PSS: Can you make sure patient is added to wait list and if she is not please add. * Telephone Encounter - Neema Berman MA - 10/22/2024 10:54 AM EST Called and spoke with patient and let her know insurance for the second time has denied the RX [facility] Synthroid. Insurance will only cover the Generic Levothyroxine. They will cover Brand Synthroid with a PA but already stated there is no medical necessity for this. She has agreed to pay out of pocket using [facility] and would like the Brand Synthroid sent to [facility]. I did speak with patient about appointment and I am going to have PSS add patient to wait list. She is fine with keeping the 11/11/24 appointment. Send pended RX below. Thank you * Telephone Encounter - Chanel Chambers - 10/21/2024 4:28 PM EST Patient calling stating that [facility] called her, left a message and told her they were unable to send her script. They did not say why. Patient only has enough for 5 days at this time. She did say that they told her she would need a prior auth. She has spoke to [facility] many times and they keep giving her the run around. She would like to be seen soon if possible. She is currently s cheduled for 11/11/24 as a video but she would rather an in person appointment. I am not sure if the provider would be willing to offer the patient an new patient spot even though she is est. If a clinical person could please call her back on 10/22/24 she would greatly appreciate it. Please call [phone]. Patient also states she will prob need a short script sent to her local pharmacy so she is n ot without. She will use [facility] until the [facility] can be worked out. [facility] [place] Telephone encounter Note * Telephone Encounter - Neema Berman MA - 10/22/2024 11:01 AM EST PSS: Can you make sure patient is added to wait list and if she is not please add. [facility]02-11-2025 Telephone encounter Note* Telephone Encounter - Neema Berman MA - 10/22/2024 10:54 AM EST Called and spoke with patient and let her know insurance for the second time has denied the RX [facility] for Synthroid. Insurance will only cover the Generic Levothyroxine. They will cover Brand Synthroid with a PA but already stated there is no medical necessity for this. She has agreed to pay out of pocket using [facility] and [facility] I did speak with patient about appointment and I am going to have PSS add patient to wait list. She is fine with keeping the 11/11/24 appointment. Send pended RX below. Thank you [facility]02-10-2025 Telephone encounter Note* Telephone Encounter - Chanel Chambers - 10/21/2024 4:28 PM EST Patient calling stating that [facility] called her, left a message and told her they were unable to send her script. They did not say why. Patient only has enough for 5 days at this time. She did say that they told her she would need a prior auth. She has spoke to [facility] many times and they keep giving her the run around. She would like to be seen soon if possible. She is currently s cheduled for 11/11/24 as a video but she would rather an in person appointment. I am not sure if the provider would be willing to offer the patient an new patient spot even though she is est. If a clinical person could please call her back on 10/22/24 she would greatly appreciate it. Please call [phone]. Patient also states she will prob need a short script sent to her local pharmacy so she is n ot without. She will use [facility] until the [facility] can be worked out. [facility] Telephone encounter Note* Telephone Encounter - Eliceo Ambriz APRN.CNP - 10/09/2024 5:32 PM EST Addressed in alt encounter [facility]25 Miscellaneous Notes* Telephone Encounter - Eliceo Ambirz APRN.CNP - 10/09/2024 5:32 PM EST Addressed in alt encounter * Telephone Encounter - Neema Berman MA - 10/07/2024 2:08 PM EST Patient is going to use [facility] and take brand Synthroid. She is going to call insurance and see ifshe can use mail order for it to be cheaper or even covered. I told her she would have to try and fail Levothyroxine for at least 90 day and resubmit to insurance. Pended RX below. [facility] [place] Telephone encounter Note * Telephone Encounter - Corrie Alejandro RN - 10/09/2024 1:38 PM EST Please send in Dr. Decker's absence: Patient phones requesting refills as follows: Re-send to mail order. [facility] only dispenses Brand Synthroid which is what patient prefers anyway. Requested Prescriptions Pending Prescriptions Disp Refills levothyroxine (SYNTHROID) 200 mcg tablet 66 tablet 2 Sig: Take one tablet Monday through Monday,and half a pill on Saturdays and none on Sundays. Please review and advise. Corrie Alejandro RN [facility]01-29-2025 Miscellaneous Notes* Telephone Encounter - Corrie Alejnadro RN - 10/09/2024 1:38 PM EST Please send in Dr. Decker's absence: Patient phones requesting refills as follows: Re-send to mail order. [facility] only dispenses Brand Synthroid which is what patient prefers anyway. Requested Prescriptions Pending Prescriptions Disp Refills levothyroxine (SYNTHROID) 200 mcg tablet 66 tablet 2 Sig: Take one tablet Monday through Monday,and half a pill on Saturdays and none on Sundays. Please review and advise. Corrie Alejandro RN documented in this encounter[facility] [place]25 Miscellaneous Notes* Telephone Encounter - Karma cMdermott MA - 10/09/2024 8:40 AM EST Prescription Refill Information The patient has been identified by name and date of : Yes Caregiver verified no other encounters exist for this prescription request: Yes Caregiver confirmed with patient/requestor that no other refills are due, in the near future, with this provider at this time: Yes The last office visit in the department: 04/17/2024 Does the patient have a future office visit with this provider/department: Yes. 10/23/2024 Requested Prescriptions Pending Prescriptions Disp Refills glipiZIDE (GLUCOTROL) 5 mg tablet [Pharmacy Med Name: glipizide 5 mg tablet] 30 tablet 5 Sig: TAKE 1/2 (ONE-HALF) OF A TABLET BY MOUTH TWICE DAILY BEFORE MEALS Karma Mcdermott MA October 09, 2024 8:40 AM documented in this [facility] [place] Telephone encounter Note * Telephone Encounter - Karma Mcdermott MA - 10/09/2024 8:40 AM EST Prescription Refill Information The patient has been identified by name and date of : Yes Caregiver verified no other encounters exist for this prescription request: Yes Caregiver confirmed with patient/requestor that no other refills are due, in the near future, with this provider at this time: Yes The last office visit in the department: 04/17/2024 Does the patient have a future office visit with this provider/department: Yes. 10/23/2024 Requested Prescriptions Pending Prescriptions Disp Refills glipiZIDE (GLUCOTROL) 5 mg tablet [Pharmacy Med Name: glipizide 5 mg tablet] 30 tablet 5 Sig: TAKE 1/2 (ONE-HALF) OF A TABLET BY MOUTH TWICE DAILY BEFORE MEALS Karma Mcdermott MA October 09, 2024 8:40 AM [facility]01-27-2025 Telephone encounter Note* Telephone Encounter - Neema Berman MA - 10/07/2024 2:08 PM EST Patient is going to use [facility] and take brand Synthroid. She is going to call insurance and see ifshe can use mail order for it to be cheaper or even covered. I told her she would have to try and fail Levothyroxine for at least 90 day and resubmit to insurance. Pended RX below. [facility]01-16-2025 Telephone encounter Note* Telephone Encounter - Neema Berman MA - 09/26/2024 3:23 PM EST Called and spoke with patient and she said she did try and fail Levothyroxine decades ago but we donot have documentation which insurance is requesting. Patient said that provider who prescribed it is no longer around. I informed her she can try the Levothyroxine (for the appropriate time for her insurance to count as failure) and then we would have the documentation they need or she can pay outof pocket for the Brand name Synthroid (using [facility]). She said she will not take the Levothyroxine. I asked her to let us know what she wants to do. CLOSED [place] [id number] Miscellaneous Notes* Telephone Encounter - Neema Berman MA - 09/26/2024 3:23 PM EST Called and spoke with patient and she said she did try and fail Levothyroxine decades ago but we donot have documentation which insurance is requesting. Patient said that provider who prescribed it is no longer around. I informed her she can try the Levothyroxine (for the appropriate time for her insurance to count as failure) and then we would have the documentation they need or she can pay outof pocket for the Brand name Synthroid (using [facility]). She said she will not take the Levothyroxine. I asked her to let us know what she wants to do. CLOSED * Telephone Encounter - Corrie Alejandro RN - 09/26/2024 10:45 AM EST Called patient's home/cell# at [phone], left voice message to call office at [phone], andask to speak to the nurse. * Telephone Encounter - Vaughn Decker MD - 09/25/2024 3:49 PM EST Ok to switch to levothyroxine at the same dose. If you could let the patient know HH * Telephone Encounter - Corrie Alejandro RN - 09/24/2024 2:19 PM EST Received a faxed notification from [facility] that patient has been prescribed Synthroid historically. This has been covered in the past by insurance. However, this is no longer going to be a covered medication. Patient has been provided a 30 day supply, but beyond that is not covered. They will require a formulary exception or pay out of pocket. Please review, is there a medical reason patient needs to remain on brand? If not then patient willneed to pay out of pocket/use [facility] to purchase or switch to formulary products such as Levothyroxine. [facility] [place] Telephone encounter Note * Telephone Encounter - Corrie Alejandro RN - 09/26/2024 10:45 AM EST Called patient's home/cell# at [phone], left voice message to call office at [phone], andask to speak to the nurse. [facility]01-15-[facility]25 Telephone encounter Note* Telephone Encounter - Vaughn Decker MD - 09/25/2024 3:49 PM EST Ok to switch to levothyroxine at the same dose. If you could let the patient know HH [facility]01-14-2025 Telephone encounter Note* Telephone Encounter - Corrie Alejandro RN - 09/24/2024 2:19 PM EST Received a faxed notification from [facility] that patient has been prescribed Synthroid historically. This has been covered in the past by insurance. However, this is no longer going to be a covered medication. Patient has been provided a 30 day supply, but beyond that is not covered. They will require a formulary exception or pay out of pocket. Please review, is there a medical reason patient needs to remain on brand? If not then patient willneed to pay out of pocket/use [facility] to purchase or switch to formulary products such as Levothyroxine. [facility] NoteHNO ID: [id number] Author: ROYER FERGUSON PA-C Service: ? Author Type: Physician Floor Renovator Type: Progress Notes Filed: 09/10/2024 09:02 Note Text: CHIEF COMPLAINT: Alexandra Bella is a 68 year old female who presents today for BL knee pain/ Euflexxa injections PAIN EVALUATION 09/09/2024 1723 09/10/2024 0844 Pain Level: 6 6 Pain Location: -- Knee-Left bilateral Description: -- Aching Frequency: -- Continuous HISTORY OF PRESENT ILLNESS: Alexandra is here for her third of 3 Euflexxa injections for bilateral knee osteoarthritis She has had an overall improvement from the first 2 Denies new injury or complaint would like to move forward with the series as scheduled REVIEW OF SYMPTOMS: Constitutional: patient denies any recent fever or significant change in weight Gastrointestinal: patient denies any current abdominal discomfort Musculoskeletal: as noted in the HPI Neurologic: as noted in the HPI SOCIAL HISTORY: Tobacco Use: Types: Cigarettes ALLERGIES: ALLERGIES Allergen Reactions Adhesive Tape rash Avelox [Moxifloxaci* Heart race Biaxin [Clarithromy* Hives, GI Upset Eryc [Erythromycin] Swelling Metformin GI Upset Throwing up, Diarrhea Penicillins Quinolones Avelox Remicade [Inflixima* Shortness of Breath Spironolactone Intolerance Headaches Sutures Other: See Comments Suture do not dissolve Demerol [Meperidine* Other: See Comments Arm swelled up locally and turned red. PAST MEDICAL HISTORY: PAST MEDICAL HISTORY Diagnosis Date Acute deep vein thrombosis (DVT) of popliteal vein of left lower extremity (HCC) Four DVT's last one 20 years ago- control- and after fracture Asymptomatic postmenopausal status (age-related) (natural) 03/2000 LMP 03/2000 CHF (congestive heart failure) (HCC) Colon cancer (HCC) 2018 Colorectal cancer (HCC) Endocarditis 2017 Essential hypertension 08/24/2018 Gastroesophageal reflux disease without esophagitis 08/24/2018 GERD (gastroesophageal reflux disease) Irritable bowel syndrome Irritable bowel Syndrome Kidney stones 2004 Left-sided chest wall pain 07/17/2016 Multiple gastric ulcers 2020 MARILIA (obstructive sleep apnea) 08/24/2018 Other hyperlipidemia 08/24/2018 Paroxysmal atrial fibrillation (HCC) Personal history of malignant neoplasm of breast 1996 1996 Breast cancer, clinical stage 1 infiltrating carcinoma left breast Phlebitis and thrombophlebitis of other deep vessels of lower extremities Phlebitis Phlebitis and thrombophlebitis of other deep vessels of lower extremities history of 3 DVTs Left Leg PMH - PAST MEDICAL HISTORY OF 09/1991 pap abnormal cells derived from serve dysplasia PMH - PAST MEDICAL HISTORY OF 11/1991 pap moderate - severe dysplasia Postoperative hypothyroidism 08/24/2018 Pre-diabetes Rheumatoid arthritis (HCC) 08/24/2018 Shingles Thyroid disease PHYSICAL EXAMINATION: Patient's vitals and nursing notes were reviewed. Vitals: LMP 03/11/1998 Skin: Skin color, texture, turgor normal, no suspicious rashes or lesions noted Cardiovascular: no signs of upper or lower extremity edema Psychiatric: mood and affect are appropriate, patient is oriented to time, place and person Neurologic: sensation is grossly intact Lymphatic: no asymetric limb swelling noted General Appearance: Well appearing, alert, in no acute distress, well-hydrated, and well nourished Respiratory: no respiratory distress, no audible wheezing, no labored breathing, symmetric thoracic excursion Bilateral knee(s): Neurovascularly intact No erythema, warmth or breaks in the skin concerning for infection Range of motion unchanged Able to stand and ambulate IMAGING: No imaging was performed today. CLINICAL IMPRESSION / ASSESSMENT: (M17.0) Bilateral primary osteoarthritis of knee (primary encounter diagnosis) RECOMMENDATION / PLAN: Follow up-as needed She has had some improvement from the injections on the left knee and completed the series today. She is now having more discomfort noticeable on the right knee and has significant arthritic changes on the right knee as well. She is interested in possible gel injections as she has had such an improvement with the gel injections on the left side. Below I am going to be submitting for authorization for right knee Euflexxa injections Tolerated procedure described below well. Large Joint Arthro/Inj: L knee joint Informed Consent Consent Obtained: Verbal [place] Protocol A moment to CARE was completed. SIGN IN Personnel directly involved with the procedure wore the appropriate PPE. Special Equipment: N/A Patient/Surrogate Stated/Verified: Patient name, Date of , Relevant allergies and Intended procedure TIME OUT Intended patient and procedure match the source document(s). Consent documented and matches the intended procedure. Relevant labs, photos, and/or imaging studies have been reviewed. (more content not included)...[facility]12-31-2024 History of Present illness Narrative* Royer Ferguson PA-C - 09/10/2024 8:46 AM ESTAssociated Order(s): Large Joint Arthro/Inj: L knee joint Post-Procedure Diagnose(s): Bilateral primary osteoarthritis of knee Images from the original note were not included. CHIEF COMPLAINT: Alexandra Bella is a 68 year old female who presents today for BL knee pain/ Euflexxa injections PAIN EVALUATION 09/09/2024 1723 09/10/2024 0844 Pain Level: 6 6 Pain Location: -- Knee-Left bilateral Description: -- Aching Frequency: -- Continuous HISTORY OF PRESENT ILLNESS: Alexandra is here for her third of 3 Euflexxa injections for bilateral knee osteoarthritis She has had an overall improvement from the first 2 Denies new injury or complaint would like to move forward with the series as scheduled REVIEW OF SYMPTOMS: Constitutional: patient denies any recent fever or significant change in weight Gastrointestinal: patient denies any current abdominal discomfort Musculoskeletal: as noted in the HPI Neurologic: as noted in the HPI SOCIAL HISTORY: Tobacco Use: Types: Cigarettes ALLERGIES: ALLERGIES Allergen Reactions Adhesive Tape rash Avelox [Moxifloxaci* Heart race Biaxin [Clarithromy* Hives, GI Upset Eryc [Erythromycin] Swelling Metformin GI Upset Throwing up, Diarrhea Penicillins Quinolones Avelox Remicade [Inflixima* Shortness of Breath Spironolactone Intolerance Headaches Sutures Other: See Comments Suture do not dissolve Demerol [Meperidine* Other: See Comments Arm swelled up locally and turned red. PAST MEDICAL HISTORY: PAST MEDICAL HISTORY Diagnosis Date Acute deep vein thrombosis (DVT) of popliteal vein of left lower extremity (HCC) Four DVT's last one 20 years ago- control- and after fracture Asymptomatic postmenopausal status (age-related) (natural) 03/2000 LMP 03/2000 CHF (congestive heart failure) (HCC) Colon cancer (HCC) 2018 Colorectal cancer (HCC) Endocarditis 2017 Essential hypertension 08/24/2018 Gastroesophageal reflux disease without esophagitis 08/24/2018 GERD (gastroesophageal reflux disease) Irritable bowel syndrome Irritable bowel Syndrome Kidney stones 2005 Left-sided chest wall pain 07/17/2016 Multiple gastric ulcers 2020 MARILIA (obstructive sleep apnea) 08/24/2018 Other hyperlipidemia 08/24/2018 Paroxysmal atrial fibrillation (HCC) Personal history of malignant neoplasm of breast 1996 1996 Breast cancer, clinical stage 1 infiltrating carcinoma left breast Phlebitis and thrombophlebitis of other deep vessels of lower extremities Phlebitis Phlebitis and thrombophlebitis of other deep vessels of lower extremities history of 3 DVTs Left Leg PMH - PAST MEDICAL HISTORY OF 09/1991 pap abnormal cells derived from serve dysplasia PMH - PAST MEDICAL HISTORY OF 11/1991 pap moderate - severe dysplasia Postoperative hypothyroidism 08/24/2018 Pre-diabetes Rheumatoid arthritis (HCC) 08/24/2018 Shingles Thyroid disease PHYSICAL EXAMINATION: Patient's vitals and nursing notes were reviewed. Vitals: LMP 03/11/1998 Skin: Skin color, texture, turgor normal, no suspicious rashes or lesions noted Cardiovascular: no signs of upper or lower extremity edema Psychiatric: mood and affect are appropriate, patient is oriented to time, place and person Neurologic: sensation is grossly intact Lymphatic: no asymetric limb swelling noted General Appearance: Well appearing, alert, in no acute distress, well-hydrated, and well nourished Respiratory: no respiratory distress, no audible wheezing, no labored breathing, symmetric thoracicexcursion Bilateral knee(s): Neurovascularly intact No erythema, warmth or breaks in the skin concerning for infection Range of motion unchanged Able to stand and ambulate IMAGING: No imaging was performed today. CLINICAL IMPRESSION / ASSESSMENT: (M17.0) Bilateral primary osteoarthritis of knee (primary encounter diagnosis) RECOMMENDATION / PLAN: Follow up-as needed She has had some improvement from the injections on the left knee and completed the series today. She is now having more discomfort noticeable on the right knee and has significant arthritic changes on the right knee as well. She is interested in possible gel injections as she has had such an improvement with the gel injections on the left side. Below I am going to be submitting for authorizationfor right knee Euflexxa injections Tolerated procedure described below well. Large Joint Arthro/Inj: L knee joint Informed Consent Consent Obtained: Verbal [place] Protocol A moment to CARE was completed. SIGN IN Personnel directly involved with the procedure wore the appropriate PPE. Special Equipment: N/A Patient/Surrogate Stated/Verified: Patient name, Date of , Relevant allergies and Intended procedure TIME OUT Intended patient and procedure match the source document(s). Consent documented and matches the intended procedure. Relevant labs, photos, and/or imaging studies have been reviewed. Correct side/site marked and visible. Medications required for procedure verified. No fire risk assessment and interventions applicable. No implant(s) inserted. 09/10/2024 8:51 AM The procedure site was prepped in the usual sterile fashion. Site: L knee joint Medications: 20 mg sodium hyaluronate 10 mg/mL(mw 2.4 -3.6 million) Outcome: Tolerated well, no immediate complications Post-injection instructions were reviewed with the patient and the patient voiced understanding of these instructions. SIGN OUT No specimen collected. All instruments, equipment, possible retained foreign bodies accounted for. Post-procedure follow-up management communicated and Plan of Care Visit completed when applicable Rationale for Viscosupplementation: Initial Request As a part of a multimodal treatment plan, we are requesting authorization of hyaluronic acid viscosupplementation injections for the improvement of symptoms related to osteoarthritis. Authorization is being requested for treatment of the Right knee. Rationale for authorization of these injections is based on the following elements: Signs and Symptoms Length of symptoms > 3 months Pain interferes with ADLs? Yes Radiographic evidence of OA? Yes Previous Treatments Bracing attempted? Yes Formal Physical Therapy (PT)/ Home Exercise Program (HEP) attempted? Patient completed an outlined HEP NSAID medication attempted? Yes Corticosteroid injection attempted? Patient has had a previous CSI with intermittent relief Weight management attempted? Yes Patient continues to be symptomatic despite above treatment attempts. Requested Viscosupplementation Preferred product: Euflexxa Alternative product: Euflexxa or payor preferred Follow up: if symptoms persist or worsen Films prior to visit: No additional imaging warranted. Verbal health education was given to patient. Patient verbalizes understanding and agrees with the treatment plan as detailed above. I spent a total of 20 minutes on the date of the service which included preparing to see the patient, [id number] patient care, completing clinical documentation, performing a medically appropriate examination, counseling and educating the patient/family/caregiver, ordering medications, tests, or p rocedures, and communicating results to the patient/family/caregiver. Royer Ferguson PA-C, [facility] HE[facility] SERVICESCecil documented in [facility] encounter[facility] [place]24 NoteHNO ID: [id number] Author: ROYER FERGUSON PA-C Service: ? Author Type: Physician Floor Renovator Type: Progress Notes Filed: 09/10/2024 09:00 Note Text: CHIEF COMPLAINT: Alexandra Bella is a 68 year old female who presents today for BL knee pain/ Euflexxa injections PAIN EVALUATION 09/03/2024 0831 Pain Level: 6 Pain Location: Knee-Left Description: Aching Frequency: Continuous HISTORY OF PRESENT ILLNESS: Alexandra is here for bilateral Euflexxa injections She had her first Euflexxa injection a week ago and has had some improvement from the series Denies new injury and would like to move forward with the second injections as scheduled REVIEW OF SYMPTOMS: Constitutional: patient denies any recent fever or significant change in weight Gastrointestinal: patient denies any current abdominal discomfort Musculoskeletal: as noted in the HPI Neurologic: as noted in the HPI SOCIAL HISTORY: Tobacco Use: Types: Cigarettes ALLERGIES: ALLERGIES Allergen Reactions Adhesive Tape rash Avelox [Moxifloxaci* Heart race Biaxin [Clarithromy* Hives, GI Upset Eryc [Erythromycin] Swelling Metformin GI Upset Throwing up, Diarrhea Penicillins Quinolones Avelox Remicade [Inflixima* Shortness of Breath Spironolactone Intolerance Headaches Sutures Other: See Comments Suture do not dissolve Demerol [Meperidine* Other: See Comments Arm swelled up locally and turned red. PAST MEDICAL HISTORY: PAST MEDICAL HISTORY Diagnosis Date Acute deep vein thrombosis (DVT) of popliteal vein of left lower extremity (HCC) Four DVT's last one 20 years ago- control- and after fracture Asymptomatic postmenopausal status (age-related) (natural) 03/2000 LMP 03/2000 CHF (congestive heart failure) (HCC) Colon cancer (HCC) 2018 Colorectal cancer (HCC) Endocarditis 2017 Essential hypertension 08/24/2018 Gastroesophageal reflux disease without esophagitis 08/24/2018 GERD (gastroesophageal reflux disease) Irritable bowel syndrome Irritable bowel Syndrome Kidney stones 2004 Left-sided chest wall pain 07/17/2016 Multiple gastric ulcers 2020 MARILIA (obstructive sleep apnea) 08/24/2018 Other hyperlipidemia 08/24/2018 Paroxysmal atrial fibrillation (HCC) Personal history of malignant neoplasm of breast 1996 1996 Breast cancer, clinical stage 1 infiltrating carcinoma left breast Phlebitis and thrombophlebitis of other deep vessels of lower extremities Phlebitis Phlebitis and thrombophlebitis of other deep vessels of lower extremities history of 3 DVTs Left Leg PMH - PAST MEDICAL HISTORY OF 09/1991 pap abnormal cells derived from serve dysplasia PMH - PAST MEDICAL HISTORY OF 11/1991 pap moderate - severe dysplasia Postoperative hypothyroidism 08/24/2018 Pre-diabetes Rheumatoid arthritis (HCC) 08/24/2018 Shingles Thyroid disease PHYSICAL EXAMINATION: Patient's vitals and nursing notes were reviewed. Vitals: LMP 03/11/1998 Skin: Skin color, texture, turgor normal, no suspicious rashes or lesions noted Cardiovascular: no signs of upper or lower extremity edema Psychiatric: mood and affect are appropriate, patient is oriented to time, place and person Neurologic: sensation is grossly intact Lymphatic: no asymetric limb swelling noted General Appearance: Well appearing, alert, in no acute distress, well-hydrated, and well nourished Respiratory: no respiratory distress, no audible wheezing, no labored breathing, symmetric thoracic excursion BL knee(s): Neurovascularly intact No erythema, warmth or breaks in the skin concerning for infection Range of motion unchanged Able to stand and ambulate IMAGING: No imaging was performed today. CLINICAL IMPRESSION / ASSESSMENT: (M17.0) Bilateral primary osteoarthritis of knee (primary encounter diagnosis) RECOMMENDATION / PLAN: Follow up- 1 week Tolerated procedure described below well. Large Joint Arthro/Inj: L knee joint Informed Consent Consent Obtained: Verbal Arden Protocol A moment to CARE was completed. SIGN IN Personnel directly involved with the procedure wore the appropriate PPE. Special Equipment: N/A Patient/Surrogate Stated/Verified: Patient name, Date of , Relevant allergies and Intended procedure TIME OUT Intended patient and procedure match the source document(s). Consent documented and matches the intended procedure. Relevant labs, photos, and/or imaging studies have been reviewed. Correct side/site marked and visible. Medications required for procedure verified. No fire risk assessment and interventions applicable. No implant(s) inserted. 09/03/2024 10:54 AM The procedure site was prepped in the usual sterile fashion. Site: L knee joint Medications: 20 mg sodium hyaluronate 10 mg/mL(mw 2.4 -3.6 million) Outcome: Tolerated well, no immediate complications Post-injection instructions were reviewed with the patient and the patient voiced underst (more content not included)...[facility] 09-03-2024 History of Present illness Narrative* Royer Ferguson PA-C - 09/03/2024 10:52 AM ESTAssociated Order(s): Large Joint Arthro/Inj: bilateral knee joints Post-Procedure Diagnose(s): Bilateral primary osteoarthritis of knee CHIEF COMPLAINT: Alexandra Bella is a 68 year old female who presents today for BL knee pain/ Euflexxa injections PAIN EVALUATION 09/03/2024 0831 Pain Level: 6 Pain Location: Knee-Left Description: Aching Frequency: Continuous HISTORY OF PRESENT ILLNESS: Alexandra is here for bilateral Euflexxa injections She had her first Euflexxa injection a week ago and has had some improvement from the series Denies new injury and would like to move forward with the second injections as scheduled REVIEW OF SYMPTOMS: Constitutional: patient denies any recent fever or significant change in weight Gastrointestinal: patient denies any current abdominal discomfort Musculoskeletal: as noted in the HPI Neurologic: as noted in the HPI SOCIAL HISTORY: Tobacco Use: Types: Cigarettes ALLERGIES: ALLERGIES Allergen Reactions Adhesive Tape rash Avelox [Moxifloxaci* Heart race Biaxin [Clarithromy* Hives, GI Upset Eryc [Erythromycin] Swelling Metformin GI Upset Throwing up, Diarrhea Penicillins Quinolones Avelox Remicade [Inflixima* Shortness of Breath Spironolactone Intolerance Headaches Sutures Other: See Comments Suture do not dissolve Demerol [Meperidine* Other: See Comments Arm swelled up locally and turned red. PAST MEDICAL HISTORY: PAST MEDICAL HISTORY Diagnosis Date Acute deep vein thrombosis (DVT) of popliteal vein of left lower extremity (HCC) Four DVT's last one 20 years ago- control- and after fracture Asymptomatic postmenopausal status (age-related) (natural) 03/2000 LMP 03/2000 CHF (congestive heart failure) (HCC) Colon cancer (HCC) 2018 Colorectal cancer (HCC) Endocarditis 2017 Essential hypertension 08/24/2018 Gastroesophageal reflux disease without esophagitis 08/24/2018 GERD (gastroesophageal reflux disease) Irritable bowel syndrome Irritable bowel Syndrome Kidney stones 2004 Left-sided chest wall pain 07/17/2016 Multiple gastric ulcers 2020 MARILIA (obstructive sleep apnea) 08/24/2018 Other hyperlipidemia 08/24/2018 Paroxysmal atrial fibrillation (HCC) Personal history of malignant neoplasm of breast 1996 1996 Breast cancer, clinical stage 1 infiltrating carcinoma left breast Phlebitis and thrombophlebitis of other deep vessels of lower extremities Phlebitis Phlebitis and thrombophlebitis of other deep vessels of lower extremities history of 3 DVTs Left Leg PMH - PAST MEDICAL HISTORY OF 09/1991 pap abnormal cells derived from serve dysplasia PMH - PAST MEDICAL HISTORY OF 11/1991 pap moderate - severe dysplasia Postoperative hypothyroidism 08/24/2018 Pre-diabetes Rheumatoid arthritis (HCC) 08/24/2018 Shingles Thyroid disease PHYSICAL EXAMINATION: Patient's vitals and nursing notes were reviewed. Vitals: LMP 03/11/1998 Skin: Skin color, texture, turgor normal, no suspicious rashes or lesions noted Cardiovascular: no signs of upper or lower extremity edema Psychiatric: mood and affect are appropriate, patient is oriented to time, place and person Neurologic: sensation is grossly intact Lymphatic: no asymetric limb swelling noted General Appearance: Well appearing, alert, in no acute distress, well-hydrated, and well nourished Respiratory: no respiratory distress, no audible wheezing, no labored breathing, symmetric thoracicexcursion BL knee(s): Neurovascularly intact No erythema, warmth or breaks in the skin concerning for infection Range of motion unchanged Able to stand and ambulate IMAGING: No imaging was performed today. CLINICAL IMPRESSION / ASSESSMENT: (M17.0) Bilateral primary osteoarthritis of knee (primary encounter diagnosis) RECOMMENDATION / PLAN: Follow up- 1 week Tolerated procedure described below well. Large Joint Arthro/Inj: bilateral knee joints Informed Consent Consent Obtained: Verbal Arden Protocol A moment to CARE was completed. SIGN IN Personnel directly involved with the procedure wore the appropriate PPE. Special Equipment: N/A Patient/Surrogate Stated/Verified: Patient name, Date of , Relevant allergies and Intended procedure TIME OUT Intended patient and procedure match the source document(s). Consent documented and matches the intended procedure. Relevant labs, photos, and/or imaging studies have been reviewed. Correct side/site marked and visible. Medications required for procedure verified. No fire risk assessment and interventions applicable. No implant(s) inserted. 09/03/2024 10:54 AM The procedure site was prepped in the usual sterile fashion. Site: bilateral knee joints Medications (Right): 20 mg sodium hyaluronate 10 mg/mL(mw 2.4 -3.6 million) Medications (Left): 20 mg sodium hyaluronate 10 mg/mL(mw 2.4 -3.6 million) Outcome: Tolerated well, no immediate complications Post-injection instructions were reviewed with the patient and the patient voiced understanding of these instructions. SIGN OUT No specimen collected. All instruments, equipment, possible retained foreign bodies accounted for. Post-procedure follow-up management communicated and Plan of Care Visit completed when applicable Follow up: if symptoms persist or worsen Films prior to visit: No additional imaging warranted. Verbal health education was given to patient. Patient verbalizes understanding and agrees with the treatment plan as detailed above. I spent a total of 25 minutes on the date of the service which included preparing to see the patient, [id number] patient care, completing clinical documentation, performing a medically appropriate examination, counseling and educating the patient/family/caregiver, ordering medications, tests, or p rocedures, and communicating results to the patient/family/caregiver. Royer Ferguson PA-C, [facility] documented in this encounterSelect [facility]ty [facility] [place]12-23-2024 NotePap Smear Specimen AdequacyDecember 2023 12:59amComment.Satisfactory for evaluation. No endocervical component is identified.[facility]ACED A#[id number] Fostoria Community HospitalComment on above:Satisfactory for evaluation. 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 Medic are patient acute September 02, 2 024 9:29am History of left breast cancer acute September 02, 2024 9:29am Left breast lump acute September 02, 2024 9:29am Lichen sclerosus acute September 02, 2024 9:29am Diabetes chronic September 02, 2024 9:29am Morbid obesity with BMI of 45.0-49.9, adult chronic September 02, 2024 9:29am LLAMAS (nonalcoholic steatohepatitis) chronic September 02, 2024 9:29am Sleep apnea chronic August 9:29am History of breast cancer resolved September 02, 2024 9:29am Encounter for routine gynecological examination noneactive Decemb er 2023 9:29am Shoulder pain acute September 022023 10:37am Dyspnea on exertion chronic Decem marium 4 10:37am Obesity chronic September 02, 2024 10:37am Sleep apnea chronic August 10:37am Chronic diastolic (congestiv e) heart failure chronic November 13, 2024 9:49am Dyspnea on exertion chronic November 13, 2024 9:49am Morbid obesity with BMI of 45.0-49.9, adult chronic November 13, 2024 9:49am Paroxysmal atrial fibrillation chron ic November 13, 2024 9:49am Pure hypercholesterolemia chronic November 13, 2024 9:49am Bilateral acute otitis media acute November 19, 2024 7:16pm Bronchitis, acute acute November 092024 7:16pm [facility] Work Phone: 1(636) 960-833812-23-2024 Evaluation note* Diagnosis Onset Date Resolution Status Admit Date FLO III (cervical intraepithelial neoplasia grade III) with severe dysplasia acute Decem 2023 9:29am 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[employer]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 [employer] exam for high-risk Medic are patient acute September 02, 2 024 9:29am History of left breast cancer acute September 02, 2024 9:29am Left breast lump acute September 02, 2024 9:29am Lichen sclerosus acute September 02, 2024 9:29am Diabetes chronic September 02, 2024 9:29am Morbid obesity with BMI of 45.0-49.9, adult chronic September 02, 2024 9:29am LLAMAS (nonalcoholic steatohepatitis) chronic September 02, 2024 9:29am Sleep apnea chronic August 9:29am History of breast cancer resolved September 02, 2024 9:29am Encounter for routine gynecological examination noneactive Decemb er 2023 9:29am Shoulder pain acute September 022023 10:37am Dyspnea on exertion chronic Decem marium 2023 10:37am Obesity chronic September 02, 2024 10:37am Sleep apnea chronic August 10:37am Chronic diastolic (congestiv e) heart failure chronic November 13, 2024 9:49am Dyspnea on exertion chronic November 13, 2024 9:49am Morbid obesity with BMI of 45.0-49.9, adult chronic November 13, 2024 9:49am Paroxysmal atrial fibrillation chron ic November 13, 2024 9:49am Pure hypercholesterolemia chronic November 13, 2024 9:49am Bilateral acute otitis media acute November 19, 2024 7:16pm Bronchitis, acute acute November 092024 7:16pm CHF (congestive heart failure) acute December 04, 2024 3:06pm Type 2 diabetes mellitus wit h hyperglycemia acute December 04, 2024 3:06pm [facility] Work Phone: 1(952) 182-137412-17-2024 NoteHNO ID: [id number] Author: ROYER FERGUSON PA-C Service: ? Author Type: Physician Floor Renovator Type: Progress Notes Filed: 08/27/2024 09:02 Note Text: CHIEF COMPLAINT: Alexandra Bella is a 68 year old female who presents today for left knee pain/ Euflexxa injections PAIN EVALUATION 08/23/20242144 Pain Level: 6 Description: Aching;Sore;Stiffness;Tenderness;Throbbing;Tightness Duration Units: Hours Frequency: Intermittent Intervention/Comfort measure: Reposition;Pillow support HISTORY OF PRESENT ILLNESS: Alexandra is here for evaluation of left knee pain secondary to osteoarthritis She has been approved for Euflexxa injections for the left knee Since then she has also noticed that her right knee has been more painful and she has been favoring the left knee and may want to consider gel injections on the right side in the future Denies new injury or complaint would like to move forward with the Euflexxa series as scheduled REVIEW OF SYMPTOMS: Constitutional: patient denies any recent fever or significant change in weight Gastrointestinal: patient denies any current abdominal discomfort Musculoskeletal: as noted in the HPI Neurologic: as noted in the HPI SOCIAL HISTORY: Tobacco Use: Types: Cigarettes ALLERGIES: ALLERGIES Allergen Reactions Adhesive Tape rash Avelox [Moxifloxaci* Heart race Biaxin [Clarithromy* Hives, GI Upset Eryc [Erythromycin] Swelling Metformin GI Upset Throwing up, Diarrhea Penicillins Quinolones Avelox Remicade [Inflixima* Shortness of Breath Spironolactone Intolerance Headaches Sutures Other: See Comments Suture do not dissolve Demerol [Meperidine* Other: See Comments Arm swelled up locally and turned red. PAST MEDICAL HISTORY: PAST MEDICAL HISTORY Diagnosis Date Acute deep vein thrombosis (DVT) of popliteal vein of left lower extremity (HCC) Four DVT's last one 20 years ago- control- and after fracture Asymptomatic postmenopausal status (age-related) (natural) 03/2000 LMP 03/2000 CHF (congestive heart failure) (HCC) Colon cancer (HCC) 2018 Colorectal cancer (HCC) Endocarditis 2017 Essential hypertension 08/24/2018 Gastroesophageal reflux disease without esophagitis 08/24/2018 GERD (gastroesophageal reflux disease) Irritable bowel syndrome Irritable bowel Syndrome Kidney stones 2004 Left-sided chest wall pain 07/17/2016 Multiple gastric ulcers 2020 MARILIA (obstructive sleep apnea) 08/24/2018 Other hyperlipidemia 08/24/2018 Paroxysmal atrial fibrillation (HCC) Personal history of malignant neoplasm of breast 1996 1996 Breast cancer, clinical stage 1 infiltrating carcinoma left breast Phlebitis and thrombophlebitis of other deep vessels of lower extremities Phlebitis Phlebitis and thrombophlebitis of other deep vessels of lower extremities history of 3 DVTs Left Leg PMH - PAST MEDICAL HISTORY OF 09/1991 pap abnormal cells derived from serve dysplasia PMH - PAST MEDICAL HISTORY OF 11/1991 pap moderate - severe dysplasia Postoperative hypothyroidism 08/24/2018 Pre-diabetes Rheumatoid arthritis (HCC) 08/24/2018 Shingles Thyroid disease PHYSICAL EXAMINATION: Patient's vitals and nursing notes were reviewed. Vitals: LMP 03/11/1998 Skin: Skin color, texture, turgor normal, no suspicious rashes or lesions noted Cardiovascular: no signs of upper or lower extremity edema Psychiatric: mood and affect are appropriate, patient is oriented to time, place and person Neurologic: sensation is grossly intact Lymphatic: no asymetric limb swelling noted General Appearance: Well appearing, alert, in no acute distress, well-hydrated, and well nourished Respiratory: no respiratory distress, no audible wheezing, no labored breathing, symmetric thoracic excursion Left knee(s): Neurovascularly intact No erythema, warmth or breaks in the skin concerning for infection Range of motion unchanged Able to stand and ambulate IMAGING: No imaging was performed today. CLINICAL IMPRESSION / ASSESSMENT: (M17.12) Primary osteoarthritis of left knee (primary encounter diagnosis) RECOMMENDATION / PLAN: Follow up- 1 week Tolerated procedure described below well. Large Joint Arthro/Inj: L knee joint Informed Consent Consent Obtained: Verbal Arden Protocol A moment to CARE was completed. SIGN IN Personnel directly involved with the procedure wore the appropriate PPE. Special Equipment: N/A Patient/Surrogate Stated/Verified: Patient name, Date of , Relevant allergies and Intended procedure TIME OUT Intended patient and procedure match the source document(s). Consent documented and matches the intended procedure. Relevant labs, photos, and/or imaging studies have been reviewed. Correct side/site marked and visible. Medications required for procedure verified. No fire risk assessment and interventions applicable. No implant(s) inserted. 08/27/2024 9:02 AM Th (more content not included)...[facility]12-17-2024 History of Present illness Narrative* Royer Ferguson PA-C - 08/27/2024 8:59 AM EST Associated Order(s): Large Joint Arthro/Inj: L knee joint Post-Procedure Diagnose(s): Primary osteoarthritis of left knee Images from the original note were not included. CHIEF COMPLAINT: Alexandar Bella is a 68 year old female who presents today for left knee pain/ Euflexxa injections PAIN EVALUATION 08/23/2024 2145 Pain Level: 6 Description: Aching;Sore;Stiffness;Tenderness;Throbbing;Tightness Duration Units: Hours Frequency: Intermittent Intervention/Comfort measure: Reposition;Pillow support HISTORY OF PRESENT ILLNESS: Alexandra is here for evaluation of left knee pain secondary to osteoarthritis She has been approved for Euflexxa injections for the left knee Since then she has also noticed that her right knee has been more painful and she has been favoringthe left knee and may want to consider gel injections on the right side in the future Denies new injury or complaint would like to move forward with the Euflexxa series as scheduled REVIEW OF SYMPTOMS: Constitutional: patient denies any recent fever or significant change in weight Gastrointestinal: patient denies any current abdominal discomfort Musculoskeletal: as noted in the HPI Neurologic: as noted in the HPI SOCIAL HISTORY: Tobacco Use: Types: Cigarettes ALLERGIES: ALLERGIES Allergen Reactions Adhesive Tape rash Avelox [Moxifloxaci* Heart race Biaxin [Clarithromy* Hives, GI Upset Eryc [Erythromycin] Swelling Metformin GI Upset Throwing up, Diarrhea Penicillins Quinolones Avelox Remicade [Inflixima* Shortness of Breath Spironolactone Intolerance Headaches Sutures Other: See Comments Suture do not dissolve Demerol [Meperidine* Other: See Comments Arm swelled up locally and turned red. PAST MEDICAL HISTORY: PAST MEDICAL HISTORY Diagnosis Date Acute deep vein thrombosis (DVT) of popliteal vein of left lower extremity (HCC) Four DVT's last one 20 years ago- control- and after fracture Asymptomatic postmenopausal status (age-related) (natural) 03/2000 LMP 03/2000 CHF (congestive heart failure) (HCC) Colon cancer (HCC) 2018 Colorectal cancer (HCC) Endocarditis 2017 Essential hypertension 08/24/2018 Gastroesophageal reflux disease without esophagitis 08/24/2018 GERD (gastroesophageal reflux disease) Irritable bowel syndrome Irritable bowel Syndrome Kidney stones 2004 Left-sided chest wall pain 07/17/2016 Multiple gastric ulcers 2020 MARILIA (obstructive sleep apnea) 08/24/2018 Other hyperlipidemia 08/24/2018 Paroxysmal atrial fibrillation (HCC) Personal history of malignant neoplasm of breast 1996 1996 Breast cancer, clinical stage 1 infiltrating carcinoma left breast Phlebitis and thrombophlebitis of other deep vessels of lower extremities Phlebitis Phlebitis and thrombophlebitis of other deep vessels of lower extremities history of 3 DVTs Left Leg PMH - PAST MEDICAL HISTORY OF 09/1991 pap abnormal cells derived from serve dysplasia PMH - PAST MEDICAL HISTORY OF 11/1991 pap moderate - severe dysplasia Postoperative hypothyroidism 08/24/2018 Pre-diabetes Rheumatoid arthritis (HCC) 08/24/2018 Shingles Thyroid disease PHYSICAL EXAMINATION: Patient's vitals and nursing notes were reviewed. Vitals: LMP 03/11/1998 Skin: Skin color, texture, turgor normal, no suspicious rashes or lesions noted Cardiovascular: no signs of upper or lower extremity edema Psychiatric: mood and affect are appropriate, patient is oriented to time, place and person Neurologic: sensation is grossly intact Lymphatic: no asymetric limb swelling noted General Appearance: Well appearing, alert, in no acute distress, well-hydrated, and well nourished Respiratory: no respiratory distress, no audible wheezing, no labored breathing, symmetric thoracicexcursion Left knee(s): Neurovascularly intact No erythema, warmth or breaks in the skin concerning for infection Range of motion unchanged Able to stand and ambulate IMAGING: No imaging was performed today. CLINICAL IMPRESSION / ASSESSMENT: (M17.12) Primary osteoarthritis of left knee (primary encounter diagnosis) RECOMMENDATION / PLAN: Follow up- 1 week Tolerated procedure described below well. Large Joint Arthro/Inj: L knee joint Informed Consent Consent Obtained: Verbal [place] Protocol A moment to CARE was completed. SIGN IN Personnel directly involved with the procedure wore the appropriate PPE. Special Equipment: N/A Patient/Surrogate Stated/Verified: Patient name, Date of , Relevant allergies and Intended procedure TIME OUT Intended patient and procedure match the source document(s). Consent documented and matches the intended procedure. Relevant labs, photos, and/or imaging studies have been reviewed. Correct side/site marked and visible. Medications required for procedure verified. No fire risk assessment and interventions applicable. No implant(s) inserted. 08/27/2024 9:02 AM The procedure site was prepped in the usual sterile fashion. Site: L knee joint Medications: 20 mg sodium hyaluronate 10 mg/mL(mw 2.4 -3.6 million) Outcome: Tolerated well, no immediate complications Post-injection instructions were reviewed with the patient and the patient voiced understanding of these instructions. SIGN OUT No specimen collected. All instruments, equipment, possible retained foreign bodies accounted for. Post-procedure follow-up management communicated and Plan of Care Visit completed when applicable Follow up: one week Films prior to visit: No additional imaging warranted. Verbal health education was given to patient. Patient verbalizes understanding and agrees with the treatment plan as detailed above. I spent a total of 20 minutes on the date of the service which included preparing to see the patient, [id number] patient care, completing clinical documentation, performing a medically appropriate examination, counseling and educating the patient/family/caregiver, ordering medications, tests, or p rocedures, and communicating results to the patient/family/caregiver. Royer Ferguson PA-C, [facility] SERVICESCecil documented in this encounter[facility]24 NoteHNO ID: [id number] Author: ROYER FERGUSON PA-C Service: ? Author Type: Physician Floor Renovator Type: Progress Notes Filed: 08/09/2024 08:20 Note Text: CHIEF COMPLAINT: Alexandra Bella is a 68 year old female who presents today for new evaluation of left circumferential knee pain. PAIN EVALUATION 08/07/2024 1042 Pain Level: 9 Pain Location: Knee-Left Description: Burning;Sharp Duration Amount of Time: 1 Duration Units: Weeks Frequency: Intermittent Intervention/Comfort measure: Medication HISTORY OF PRESENT ILLNESS: Alexandra is here for evaluation of acute onset of left knee pain without injury Had a knee scope about 15 years ago She also has rheumatoid arthritis She is currently taking oral prednisone which she states has improved her symptoms somewhat She also takes tramadol and Tylenol as needed She has a history of diabetes and her last A1c was 7.5 BMI of 50.55 REVIEW OF SYMPTOMS: Constitutional: patient denies any recent fever or significant change in weight Gastrointestinal: patient denies any current abdominal discomfort Musculoskeletal: as noted in the HPI Neurologic: as noted in the HPI SOCIAL HISTORY: Tobacco Use: Types: Cigarettes ALLERGIES: ALLERGIES Allergen Reactions Adhesive Tape rash Avelox [Moxifloxaci* Heart race Biaxin [Clarithromy* Hives, GI Upset Eryc [Erythromycin] Swelling Metformin GI Upset Throwing up, Diarrhea Penicillins Quinolones Avelox Remicade [Inflixima* Shortness of Breath Spironolactone Intolerance Headaches Sutures Other: See Comments Suture do not dissolve Demerol [Meperidine* Other: See Comments Arm swelled up locally and turned red. PAST MEDICAL HISTORY: PAST MEDICAL HISTORY Diagnosis Date Acute deep vein thrombosis (DVT) of popliteal vein of left lower extremity (HCC) Four DVT's last one 20 years ago- control- and after fracture Asymptomatic postmenopausal status (age-related) (natural) 03/2000 LMP 03/2000 CHF (congestive heart failure) (HCC) Colon cancer (HCC) 2018 Colorectal cancer (HCC) Endocarditis 2017 Essential hypertension 08/24/2018 Gastroesophageal reflux disease without esophagitis 08/24/2018 GERD (gastroesophageal reflux disease) Irritable bowel syndrome Irritable bowel Syndrome Kidney stones 2004 Left-sided chest wall pain 07/17/2016 Multiple gastric ulcers 2020 MARILIA (obstructive sleep apnea) 08/24/2018 Other hyperlipidemia 08/24/2018 Paroxysmal atrial fibrillation (HCC) Personal history of malignant neoplasm of breast 1996 1996 Breast cancer, clinical stage 1 infiltrating carcinoma left breast Phlebitis and thrombophlebitis of other deep vessels of lower extremities Phlebitis Phlebitis and thrombophlebitis of other deep vessels of lower extremities history of 3 DVTs Left Leg PMH - PAST MEDICAL HISTORY OF 09/1991 pap abnormal cells derived from serve dysplasia PMH - PAST MEDICAL HISTORY OF 11/1991 pap moderate - severe dysplasia Postoperative hypothyroidism 08/24/2018 Pre-diabetes Rheumatoid arthritis (HCC) 08/24/2018 Shingles Thyroid disease PHYSICAL EXAMINATION: Patient's vitals and nursing notes were reviewed. Vitals: LMP 03/11/1998 Skin: Skin color, texture, turgor normal, no suspicious rashes or lesions noted Cardiovascular: no signs of upper or lower extremity edema Psychiatric: mood and affect are appropriate, patient is oriented to time, place and person Neurologic: sensation is grossly intact Lymphatic: no asymetric limb swelling noted General Appearance: Well appearing, alert, in no acute distress, well-hydrated, and well nourished Respiratory: no respiratory distress, no audible wheezing, no labored breathing, symmetric thoracic excursion Knee Examination Left Knee Skin No evidence of eythema, warmth, bruising, abrasions, scars, swelling, atrophy,masses or deformity about bilateral lower extremities. Effusion 1+ effusion Alignment normal Range of motion Normal extension, but decreased range of motion at end range of flexion due to "pressure" and "tightness" Quadriceps examination full (5/5) quadriceps strength bilaterally without signs of atrophy Patellar examination Decreased patellar mobility Positive patellar grind testing Tenderness medial joint line and popliteal fossa Meniscus difficult to assess secondary to pain Stability Collateral and cruciate knee ligaments (ACL/PCL/LCL/MCL) are all intact with no significant laxity noted bilaterally IMAGING: Final results and radiologist's interpretation, available in the [facility] health record. Images were reviewed with the patient/family members in the office today. My personal interpretation of the performed imaging is chronic degenerative changes. CLINICAL IMPRESSION / ASSESSMENT: (M17.12) Primary osteoarthritis of left knee (primary encounter diagnosis) (Z68.43) BMI 50.0-59.9, adult (HCC) (R73.09) Elevated hemoglobin A1c RECOMMENDATION / (more content not included)...[facility] 08-07-2024 History of Present illness Narrative* Royer Ferguson PA-C - 08/07/2024 11:38 AM EST CHIEF COMPLAINT: Alexandra Bella is a 68 year old female who presents today for new evaluation of left circumferential knee pain. PAIN EVALUATION 08/07/2024 1042 Pain Level: 9 Pain Location: Knee-Left Description: Burning;Sharp Duration Amount of Time: 1 Duration Units: Weeks Frequency: Intermittent Intervention/Comfort measure: Medication HISTORY OF PRESENT ILLNESS: Alexandra is here for evaluation of acute onset of left knee pain without injury Had a knee scope about 15 years ago She also has rheumatoid arthritis She is currently taking oral prednisone which she states has improved her symptoms somewhat She also takes tramadol and Tylenol as needed She has a history of diabetes and her last A1c was 7.5 BMI of 50.55 REVIEW OF SYMPTOMS: Constitutional: patient denies any recent fever or significant change in weight Gastrointestinal: patient denies any current abdominal discomfort Musculoskeletal: as noted in the HPI Neurologic: as noted in the HPI SOCIAL HISTORY: Tobacco Use: Types: Cigarettes ALLERGIES: ALLERGIES Allergen Reactions Adhesive Tape rash Avelox [Moxifloxaci* Heart race Biaxin [Clarithromy* Hives, GI Upset Eryc [Erythromycin] Swelling Metformin GI Upset Throwing up, Diarrhea Penicillins Quinolones Avelox Remicade [Inflixima* Shortness of Breath Spironolactone Intolerance Headaches Sutures Other: See Comments Suture do not dissolve Demerol [Meperidine* Other: See Comments Arm swelled up locally and turned red. PAST MEDICAL HISTORY: PAST MEDICAL HISTORY Diagnosis Date Acute deep vein thrombosis (DVT) of popliteal vein of left lower extremity (HCC) Four DVT's last one 20 years ago- control- and after fracture Asymptomatic postmenopausal status (age-related) (natural) 03/2000 LMP 03/2000 CHF (congestive heart failure) (HCC) Colon cancer (HCC) 2018 Colorectal cancer (HCC) Endocarditis 2017 Essential hypertension 08/24/2018 Gastroesophageal reflux disease without esophagitis 08/24/2018 GERD (gastroesophageal reflux disease) Irritable bowel syndrome Irritable bowel Syndrome Kidney stones 2004 Left-sided chest wall pain 07/17/2016 Multiple gastric ulcers 2020 MARILIA (obstructive sleep apnea) 08/24/2018 Other hyperlipidemia 08/24/2018 Paroxysmal atrial fibrillation (HCC) Personal history of malignant neoplasm of breast 1996 1996 Breast cancer, clinical stage 1 infiltrating carcinoma left breast Phlebitis and thrombophlebitis of other deep vessels of lower extremities Phlebitis Phlebitis and thrombophlebitis of other deep vessels of lower extremities history of 3 DVTs Left Leg PMH - PAST MEDICAL HISTORY OF 09/1991 pap abnormal cells derived from serve dysplasia PMH - PAST MEDICAL HISTORY OF 11/1991 pap moderate - severe dysplasia Postoperative hypothyroidism 08/24/2018 Pre-diabetes Rheumatoid arthritis (HCC) 08/24/2018 Shingles Thyroid disease PHYSICAL EXAMINATION: Patient's vitals and nursing notes were reviewed. Vitals: LMP 03/11/1998 Skin: Skin color, texture, turgor normal, no suspicious rashes or lesions noted Cardiovascular: no signs of upper or lower extremity edema Psychiatric: mood and affect are appropriate, patient is oriented to time, place and person Neurologic: sensation is grossly intact Lymphatic: no asymetric limb swelling noted General Appearance: Well appearing, alert, in no acute distress, well-hydrated, and well nourished Respiratory: no respiratory distress, no audible wheezing, no labored breathing, symmetric thoracicexcursion Knee Examination Left Knee Skin No evidence of eythema, warmth, bruising, abrasions, scars, swelling, atrophy,masses or deformity about bilateral lower extremities. Effusion 1+ effusion Alignment normal Range of motion Normal extension, but decreased range of motion at end range of flexion due to "pressure" and "tightness" Quadriceps examination full (5/5) quadriceps strength bilaterally without signs of atrophy Patellar examination Decreased patellar mobility Positive patellar grind testing Tenderness medial joint line and popliteal fossa Meniscus difficult to assess secondary to pain Stability Collateral and cruciate knee ligaments (ACL/PCL/LCL/MCL) are all intact with no significant laxity noted bilaterally IMAGING: Final results and radiologist's interpretation, available in the [facility] health record. Images were reviewed with the patient/family members in the office today. My personal interpretation of the performed imaging is chronic degenerative changes. CLINICAL IMPRESSION / ASSESSMENT: (M17.12) Primary osteoarthritis of left knee (primary encounter diagnosis) (Z68.43) BMI 50.0-59.9, adult ([facility]) (R73.09) Elevated hemoglobin A1c RECOMMENDATION / PLAN: Alexandra has severe arthritis to the left knee. She is a poor surgical candidate with her BMI of 50 and A1c of 7.5. She has had improvement with oral prednisone but I would not consider a cortisone injection with her last A1c of 7.5. Below I am submitting for gel injections to hopefully alleviate some of her discomfort while we work on the barriers to a knee replacement. I placed a consultation with our weight management and diabetes management collaboration with endocrinology and advised her to come back and see me once the gels are approved Rationale for Viscosupplementation: Initial Request As a part of a multimodal treatment plan, we are requesting authorization of hyaluronic acid viscosupplementation injections for the improvement of symptoms related to osteoarthritis. Authorization is being requested for treatment of the Left knee. Rationale for authorization of these injections is based on the following elements: Signs and Symptoms Length of symptoms > 3 months Pain interferes with ADLs? Yes Radiographic evidence of OA? Yes Previous Treatments Bracing attempted? Yes Formal Physical Therapy (PT)/ Home Exercise Program (HEP) attempted? Patient completed a comprehensive PT program with compliance to HEP NSAID medication attempted? Corticosteroid injection attempted? CSI is contraindicated for this patient (A1C 7.5) Weight management attempted? Yes Patient continues to be symptomatic despite above treatment attempts. Requested Viscosupplementation Preferred product: Euflexxa Alternative product: Synvisc (series) or payor preferred Follow up: if symptoms persist or worsen Films prior to visit: No additional imaging warranted. Verbal health education was given to patient. Patient verbalizes understanding and agrees with the treatment plan as detailed above. I spent a total of 30 minutes on the date of the service which included preparing to see the patient, [id number] patient care, completing clinical documentation, performing a medically appropriate examination, counseling and educating the patient/family/caregiver, ordering medications, tests, or p rocedures, and communicating results to the patient/family/caregiver. Royer Ferguson PA-C, [facility] documented in this encounterSelect [facility] [place]11-27-2024 History of Present illness Narrative* Kevin Gutierrez RT(R) - 08/07/2024 10:30 AM EST Radiology Service Progress Note PATIENT NAME: Alexandra Bella DATE OF SERVICE: August 07, 2024 TIME: 10:30 AM PATIENT IDENTITY VERIFICATION COMPLETED USING TWO (2) IDENTIFIERS: Name and Date of confirmedby patient verbally. FALL SCREENING: Has the patient had 2 falls in the last year or 1 fall with injury or currently using an Ambulatory Assistive Device (Walker, Cane, Wheelchair, Crutches, etc.)? No PATIENT GENDER DATA: Female. status: : No status: NO. PATIENT RELEVANT IMPLANT DATA REVIEWED: Yes PATIENT PRESENTS WITH AN IMPLANTABLE OR ATTACHED THIRD HELPER: No RADIOLOGY DEPARTMENT: General X-ray: Exam(s) Completed: Lower Extremity X- Ray(s): Knee, AP / Lat / Tunne / Merchant Left PERIPHERAL IV DATA: Not applicable SIGNED BY: TIFFANIE BENITEZ(R) August 07, 2024 10:30 AM documented in this encounterSelect Medical [facility]ty [facility] [place]11-27-2024 NoteHNO ID: [id number] Author: KEVIN GUTIERREZ RT(R) Service: ? Author Type: Technologist Type: Progress Notes Filed: 08/07/2024 10:31 Note Text: Radiology Service Progress Note PATIENT NAME: Alexandra Bella DATE OF SERVICE: August 07, 2024 TIME: 10:30 AM PATIENT IDENTITY VERIFICATION COMPLETED USING TWO (2) IDENTIFIERS: Name and Date of confirmed by patient verbally. FALL SCREENING: Has the patient had 2 falls in the last year or 1 fall with injury or currently using an Ambulatory Assistive Device (Walker, Cane, Wheelchair, Crutches, etc.)? No PATIENT GENDER DATA: Female. status: : No status: NO. PATIENT RELEVANT IMPLANT DATA REVIEWED: Yes PATIENT PRESENTS WITH AN IMPLANTABLE OR ATTACHED THIRD HELPER: No RADIOLOGY DEPARTMENT: General X-ray: Exam(s) Completed: Lower Extremity X-Ray(s): Knee, AP / Lat / Tunne / Merchant Left PERIPHERAL IV DATA: Not applicable SIGNED BY: TIFFANIE BENITEZ(R) August 07, 2024 10:30 [facility]09-11-2024 History of Present illness Narrative* Vaughn Decker MD - 05/22/2024 1:15 PM EDT CGM for T2DM with hyperglycemia was downloaded reviewed The patient's continuous glucose monitoring device was downloaded, interpreted by myself and recommendations were discussed with the patient. The following data was obtained: Average glucose: 151 mg/dl Standard Deviation 34 mg/dl Estimated HbA1c:-% Serious hypoglycemia (<55 mg/dl): 0% Hypoglycemia (<70 mg/dl): 0% Values in target (70-180 mg/dl): 83% Hyperglycemia (>180 mg/dl): 15% Serious hyperglycemia (>250 mg/dl): 2% CGM active 79% of the time Time evaluated: 14 days Vaughn Decker MD documented in this encounterSelect Medical [facility] [place]09-11-2024 Note* Addendum Note - Vaughn Decker MD - 05/22/2024 10:00 AM EDTAddended by: VAUGHN DECKER on: 05/22/2024 10:00 AM Modules accepted: Orders [facility] [place]09-11-2024 Miscellaneous Notes* Addendum Note - Vaughn Decker MD - 05/22/2024 10:00 AM EDTAddended by: VAUGHN DECKER on: 05/22/2024 10:00 AM Modules accepted: Orders documented in this encounterSelect Medical [facility]ty [facility] [place]09-11-2024 History of Present illness Narrative* Kevin Garcia RN - 05/22/2024 9:30 AM EDT Patient completed 10 day wear of the CGM for diagnostic purposes. * Corrie Escalona MA - 05/22/2024 9:17 AM EDT Images from the original note were not included. documented in this encounterSelect Medical [facility]ty [facility] [place]09-06-2024 Telephone encounter Note * Telephone Encounter - Kevin Garcia RN - 05/17/2024 12:25 PM EDT Patient sent a message that she was out of refills when she went to her drugstore for test strips. [facility] Work Phone: [phone]) 217-655109-06-2024 Miscellaneous Notes* Telephone Encounter - Kevin Garcia RN - 05/17/2024 12:25 PM EDT Patient sent a message that she was out of refills when she went to her drugstore for test strips. documented in this encounterSelect Medical [facility] [place]08-28-2024 History of Present illness Narrative* Kevin Garcia RN - 05/08/2024 9:44 AM EDT DIABETES CARE AND EDUCATION VISIT Location: [place] Type of visit: In person individual PATIENT'S MAIN CONCERN TODAY: Dexcom G7 diagnostic cgm Support person present for education today: none Cognitive ability: Alert and oriented Motivation to learn: Interested Learning barriers identified by educator: none Method of instruction: written, verbal, and demonstration DIABETES FINDINGS: Monitoring: started on a Dexcom G7 for Diagnostic CGM purposes with G7 [place] HANDOUTS: Healthy You: Survival Skills and Healthy You: Planning Healthy Meals LEARNING RESPONSE: Monitoring glucose: Demonstrated understanding/competency today or at previous visit POSSIBLE FUTURE TOPICS: 1. DIABETES CARE AND EDUCATION PLAN: Individual follow-up - follow up in two weeks to download Time Spent (Minutes): 25 This visit note will be communicated to the healthcare provider via access to shared medical record. SIGNATURE: Kevin Garcia RN PATIENT NAME: Alexandra Bella DATE: May 08, 2024 TIME: 9:44 AM documented in this encounterSelect Medical Specialty [facility] [place]08-07-2024 Instructions* Patient Instructions* Vaughn Decker MD - 04/17/2024 5:02 PM EDT - Continue glipizide 5 mg half tab twice a day - please check your blood sugar once a day, sometimes fasting, and sometimes 2 hours after eating ameal - will place a continuous glucose monitor to get more glucose data - follow up in 6 months documented in this encounterSelect Medical [facility]ty [facility] [place]08-07-2024 Procedure note* Karma Mcdermott MA - 04/17/2024 4:47 PM EDTProcedure(s): EXTERNAL MEDICAL OFFICE SCHEDULER, CGM SYS Images from the original note were not included. [facility] [place]-07-[facility] Procedure note* Karma Mcdermott MA - 04/17/2024 4:47 PM EDTProcedure(s): EXTERNAL MEDICAL OFFICE SCHEDULER, CGM SYS Images from the original note were not included. documented in this encounterSelect Medical [facility]ty [facility] [place]08-07-2024 History of Present illness Narrative* Vaughn Decker MD - 04/17/2024 4:45 PM EDT ENDOCRINOLOGY CLINIC NOTE Ms. Bella is a 68 year old female with prediabetes, hypothyroidism, fatty liver disease, HTN, A. fib, CHF, MARILIA, DVT, h/o colon cancer presented for follow-up of T2DM HPI She had prediabetes but her A1c is elevated today. She was prescribed metformin XR but could not tolerate it due to vomiting. She tried Trulicity but could not tolerate it due to vomiting and diarrhea A1c: 7.5% today 05/25/22 15:52 05/03/23 09:28 11/15/23 15:42 Hemoglobin A1C 7.3 (H) Hemoglobin A1C (POCT) 8.9 ! 8.6 ! Current regimen: Glipizide 5 mg half tab twice a day Home glucose monitoring: She has been checking every 2 days in the morning and her average is 139, range 126-155. Hypoglycemia: None Diet: She eats 3 meals Physical activity: In the context of daily activities. Complications: Retinopathy: she had an eye exam, including testing for macular degeneration and was told it is ok Nephropathy GFR 88 in 03/2024 Neuropathy: she reported paresthesias in her feet CVS: lipid profile: 05/2022: Cholesterol 176, LDL 92, HDL 56, TG 138 on atorvastatin 20 mg (stopped by cardiology due to nightmares) BP: 128/85 Hypothyroidism: She takes Synthroid 200 mcg 1 pill M-F, half a pill on Saturdays and none on Sundays. TFTs in 04/2023. TSH 2.2 and FT4 1.5 PAST MEDICAL HISTORY No date: Acute deep vein thrombosis (DVT) of popliteal vein of left lower extremity (HCC) Comment: Four DVT's last one 20 years ago- control- and after fracture 03/2000: Asymptomatic postmenopausal status (age-related) (natural) Comment: LMP 03/2000 No date: CHF (congestive heart failure) (HCC) 2018: Colon cancer (HCC) No date: Colorectal cancer (HCC) 2017: Endocarditis 08/24/2018: Essential hypertension 08/24/2018: Gastroesophageal reflux disease without esophagitis No date: GERD (gastroesophageal reflux disease) No date: Irritable bowel syndrome Comment: Irritable bowel Syndrome 2005: Kidney stones 07/17/2016: Left-sided chest wall pain 2020: Multiple gastric ulcers 08/24/2018: MARILIA (obstructive sleep apnea) 08/24/2018: Other hyperlipidemia No date: Paroxysmal atrial fibrillation (HCC) 1996: Personal history of malignant neoplasm of breast Comment: 1996 Breast cancer, clinical stage 1 infiltrating carcinoma left breast No date: Phlebitis and thrombophlebitis of other deep vessels of lower extremities Comment: Phlebitis No date: Phlebitis and thrombophlebitis of other deep vessels of lower extremities Comment: history of 3 DVTs Left Leg 09/1991: PMH - PAST MEDICAL HISTORY OF Comment: pap abnormal cells derived from serve dysplasia 11/1991: PMH - PAST MEDICAL HISTORY OF Comment: pap moderate - severe dysplasia 08/24/2018: Postoperative hypothyroidism No date: Pre-diabetes 08/24/2018: Rheumatoid arthritis (HCC) No date: Shingles No date: Thyroid disease PAST SURGICAL HISTORY 2017: CARDIAC CATH 2001: CHOLECYSTECTOMY 11/08/2011: COLONOSCOPY Comment: Dr. Esteban-Random Bx-unremarkable. Sigmoid Bx-focal hyperplastic changes. 03/31/2015: COLONOSCOPY Comment: Dr. Esteban-evidence of large scar in the perianal area secondary to resection of SCC 2011. Random Bx's-unremarkable. 04/28/2020: COLONOSCOPY Comment: Dr. Esteban-bilious gastric fluid. Bile gastritis. Antrum Bx-unremarkable, HP negative. GEJ Bx-mild inflammation. 11/01/2022: COLONOSCOPY DIAGNOSTIC 12/1991: COLPOSCOPY CERVIX UPPER/ADJACENT VAGINA Comment: Colposcopy 01/1992: CONIZATION CERVIX W/WO D&C RPR ELTRD EXC Comment: CONE BX, focal atypia 03/31/2015: EGD Comment: Dr. Esteban-HH. D2-unremarkable. Stomach body Bx-mild reactive gastropathy, HP negative. Stomach polyps-fundic gland. 12/29/2017: EGD Comment: Dr. Esteban-small HH. Multiple gastric polyps-. Non-bleeding erosive gastropathy. Bilious gastric fluid. 2020: EGD 11/01/2022: EGD DIAGNOSTIC 03/31/2020: FIBROSCAN Comment: S3, F4 history of: LIG/TRNSXJ FLP TUBE ABDL/VAG APPR UNI/BI Comment: Tubal ligation 02/21/2002: LIVER BIOPSY Comment: hepatic steatosis, moderate and diffuse. Mild portal fibrosis with chronic non-specific inflammation no evidence of cirrhosis. 06/1997: MASTEC PARTIAL W AXILL NODE REMOV Comment: left - had radiation and chemo 1996: MRI BREAST BIOPSY Comment: excisional Breast BX, BREAST CANCER, clinical stage1 infiltrating carcinoma left breast 07/2008: PAST SURGICAL HISTORY OF Comment: had "fatty tumor" removed from back 01/02/2012: PAST SURGICAL HISTORY OF Comment: excision perianal lesion-invasive moderately differentiated squamous cell CA 08/29/2018: PAST SURGICAL HISTORY OF Comment: Excision of 5 x 6 cm posterior back mass, No date: PAST SURGICAL HISTORY OF; Left Comment: scope knee No date: PAST SURGICAL HISTORY OF Comment: Partial thyroidectomy 1973: THYROIDECTOMY TOTAL/COMPLETE FAMILY HISTORY Problem Relation Age of Onset Breast Cancer Maternal Grandmother Breast Cancer Paternal Grandmother Cancer Paternal Grandfather bone cancer Prostate Cancer Paternal Grandfather Coronary Artery Disease Father Kidney Disease Father Diabetes Other mat grt grdf Liver Cancer Brother Hypertension Mother No Known Problems Daughter Diabetes Son Heart Brother Heart Brother Colon Cancer No Family History other (Blood Clot) No Family History Social History Tobacco Use Smoking status: Former Packs/day: 1.00 Years: 15.00 Additional pack years: 0.00 Total pack years: 15.00 Types: Cigarettes Quit date: 09/11/1989 Years since quittin.6 Passive exposure: Never Smokeless tobacco: Never Vaping Use Vaping Use: Never used Substance Use Topics Alcohol use: No Comment: occasional, rare Drug use: Never Comment: a few times a year (Not in a hospital admission) Allergies As of Date: 04/17/2024 Allergen Noted Reaction ADHESIVE TAPE 01/07/2002 AVELOX [MOXIFLOXACIN HCL] 02/16/2009 BIAXIN [CLARITHROMYCIN] 02/17/2009 Hives and GI Upset ERYC [ERYTHROMYCIN] 02/16/2009 Swelling METFORMIN 05/25/2022 GI Upset PENICILLINS 07/07/2003 QUINOLONES 07/12/2004 REMICADE [INFLIXIMAB] 10/21/2020 Shortness of Breath SPIRONOLACTONE 05/14/2020 Intolerance SUTURES 11/28/2023 Other: See Comments DEMEROL [MEPERIDINE (PF)] 03/14/2012 Other: See Comments Fully Assessed 04/17/2024 Current Outpatient Medications Medication Sig Dispense Refill metoprolol tartrate, short acting, (LOPRESSOR) 25 mg tablet 1 tablet with food Orally Twice a day for 30 day(s) sucralfate (CARAFATE) 1 gram tablet Dissolve 1 tablet into 1-2 tbsp water and drink as a slurry twice daily. Do not eat or drink for 30 mins after taking. 60 tablet 11 glipiZIDE (GLUCOTROL) 5 mg tablet Take 0.5 tablets (2.5 mg) by mouth two times a day before meals. 30 tablet 5 ONETOUCH ULTRASOFT LANCETS lancets Use as directed to check glucose once daily.E11.9 100 Each 3 ONETOUCH ULTRA TEST test strip Use as directed to check glucose once daily. E11.9 100 Each 3 Blood-Glucose Meter (ONETOUCH ULTRA2 METER) monitoring kit Use to test blood sugar daily, DX: E11.9, NIDDM 1 Each 0 Lancing Device (LANCING DEVICE WITH LANCETS) [facility] [place] Lancet device for one touch delica lancets; checkglucose once daily ; E11.9, NIDDM 1 Each 0 SYNTHROID 200 mcg tablet Take one tablet Monday through Monday,and half a pill on Saturdays and none on Sundays. 66 tablet 3 omeprazole (PRILOSEC) 40 mg capsule TAKE 1 CAPSULE BY MOUTH ONCE DAILY 90 capsule 1 losartan (COZAAR) 25 mg tablet Take 0.5 tablets by mouth once daily. (Patient taking differently: Take 25 mg by mouth once daily.) 45 tablet 3 flecainide (TAMBOCOR) 100 mg tablet Take 1 tablet by mouth every 12 hours. 180 tablet 3 apixaban (ELIQUIS) 5 mg tab(s) Take 1 tablet by mouth twice daily. 180 tablet 3 furosemide (LASIX) 20 mg tablet Take 2 tablets by mouth every other day. potassium chloride (K-TAB) 10 mEq tablet Take 1 tablet by mouth once daily. 90 tablet 3 traMADol (ULTRAM) 50 mg tablet Take 1 tablet by mouth as directed. albuterol HFA (PROVENTIL HFA, VENTOLIN HFA) 90 mcg/actuation inhaler as needed. golimumab (SIMPONI ARIA INTRAVENOUS) Inject intravenously every 8 weeks. 2mg/kg (242mg) CPAP celecoxib (CELEBREX) 200 mg capsule Take 1 capsule by mouth once daily. acetaminophen(TYLENOL ARTHRITIS 650 MG TAB) Take 2 tablets daily. 0 exenatide microspheres (BYDUREON BCISE) 2 mg/0.85 mL injection Inject 2 mg subcutaneously one time a week. (Patient not taking: Reported on 04/17/2024) 3.4 mL 5 No current facility-administered medications for this visit. COMPLETE REVIEW OF SYSTEMS: Answers submitted by the patient for this visit: Core Review of Systems (Submitted on 05/02/2023) Fever : No Night Sweats: No Recent Unintentional Weight Change: No Nasal Congestion: Yes Hearing Loss: No Vision Disturbance: Yes A Cough: No Difficulty Breathing?: Yes Chest Pain: No Irregular Heart Beat: No Leg Swelling: Yes Nausea: No Diarrhea: Yes Black Tarry Stools: No Awaken at Night More Than Once to Urinate?: No Joint Pain or Stiffness: Yes Muscle Aches: Yes Leg or Foot Discomfort at Night?: Yes A Rash: No Dizziness: No Headaches: No Memory Loss: No Seizures: No PHYSICAL EXAM: 04/17/24 1623 BP: 119/74 Pulse: 76 Resp: 16 SpO2: 96% Weight: 129.4 kg (285 lb 4.4 oz) Height: 160 cm (5' 2.99") General: NAD, alert and cooperative, Previous exam HEENT: EOMI, no proptosis/stare. Neck: supple with full ROM. No thyromegaly or palpable nodules. Cardiovascular: RRR, +S1 and S2, no MRG appreciated Lungs: Clear to auscultation bilaterally Abdomen: soft, non-tender, non-distended Extremities: No LE oedema Neuro: Alert and oriented Psych: Normal affect Labs: As mentioned above Assessment and Recommendations: Ms. Bella is a pleasant 67-year-old woman presented for follow-up of diabetes. Our goal is an A1c Alutard below 7% to reduce risk of diabetes related complications. She could not tolerate Trulicity due to significant diarrhea and vomiting and she is hesitant to try another GLP-1 agonist. She gets yeast infections easily, and she has significant lower extremity edema. Will continue with glipizide 5 mg half tab twice a day. We will place a diagnostic CGM for 10-14 days to obtain more data. I asked her to check her blood sugar once a day sometimes fasting and sometimes 2 hours after eating. Postsurgical hypothyroidism: She underwent total thyroidectomy for hyperthyroidism when she was younger. She is clinically and biochemically euthyroid. We will continue with the current dose of levothyroxine and I will check herTFTs RTC in 6 months Some of the above has been copied from prior documentation on 05/03/2023 but alvarez elements reviewed, confirmed, and/or updated by me (Vaughn Decker MD) on 04/17/2024 Medical Decision Making: Problems: Moderate: 2+ stable chronic illnesses Data: Unique test result(s) reviewed: 3+ Unique test(s) ordered: 1 Risk: Moderate: Moderate risk from testing/treatment Medical Decision Making Level: 4 - Moderate This note was created using [employer] dictation software. You may find errors that were missed during proofreading. They are purely unintentional and if there are any concerns regarding this dictation, please do not hesitate to contact the dictating provider for clarification. Vaughn Decker MD documented [facility] [place] Telephone encounter Note * Telephone Encounter - Hailey Ocampo RN - 04/10/2024 4:11 PM EDT ----- Message from Rosy Esteban MD sent at 04/10/2024 3:35 PM EDT ----- Toney Scott: I would like to refer this patient to you again. She was evaluated a few years ago by you for sleeve gastrectomy. Somehow she did not follow-up because of COVID-19. She has several medical conditions mainly related to her obesity. BMI 50. Diabetes mellitus Hypertension Sleep apnea with CPAP Central obesity Hepatic fibrosis/cirrhosis. Rheumatoid arthritis I had a long discussion with the patient and her regarding the importance of proceeding with sleeve gastrectomy which would help her significantly. I do appreciate if you could also examine the liver and obtain intraoperative liver biopsy to determine if she has liver cirrhosis or not. Thanks Rosy [facility] [place] Work Phone: [phone] 908-366907-31-2024 Miscellaneous Notes* Telephone Encounter - Hailey Ocampo RN - 04/10/2024 4:11 PM EDT ----- Message from Rosy Esteban MD sent at 04/10/2024 3:35 PM EDT ----- Toney Scott: I would like to refer this patient to you again. She was evaluated a few years ago by you for sleeve gastrectomy. Somehow she did not follow-up because of COVID-19. She has several medical conditions mainly related to her obesity. BMI 50. Diabetes mellitus Hypertension Sleep apnea with CPAP Central obesity Hepatic fibrosis/cirrhosis. Rheumatoid arthritis I had a long discussion with the patient and her regarding the importance of proceeding with sleeve gastrectomy which would help her significantly. I do appreciate if you could also examine the liver and obtain intraoperative liver biopsy to determine if she has liver cirrhosis or not. Thanks Rosy documented in [facility] [place] History and physical note * Rosy Esteban MD - 04/10/2024 8:40 AM EDT REASON FOR VISIT: Fatty liver and hepatic fibrosis HPI: Alexandra Bella is a 68 year old female who presents for follow-up visit. She is well-established my practice. She has multiple medical and GI problems. Chronic GERD and takes omeprazole 40 mg in the morning and Carafate 1 g to 3 times daily. She stillsymptomatic specially in the morning. However, she eats late sometimes and go to bed early. Last EGD 10/2022. She is not a smoker and barely drinks alcohol. Diabetes mellitus and on treatment with glipizide. She was not treated with the Trulicity for 3 weeks but stopped because of profuse diarrhea. Rheumatoid arthritis and started recently on treatment with golimumab (Sinponi). She is on Eliquis for atrial fibrillation. Severe obesity with BMI 50.1. She was referred to Dr. Ross in the past and started the process of evaluation but did not go through it. She has been battling with her weight for long time. Currently she on treatment with oral antibiotic, doxycycline for cyst removed from the groin surgically. Steatohepatitis/hepatic cyst fibrosis. Liver biopsy 09/2021 showed steatohepatitis with bridging fibrosis. FibroScan ordered by Uriah Mueller showed S3 F4 but the report mentioned that it was difficult to get an accurate FibroScan results. Previous work up includes: Last OV with Uriah Mueller, 03/11/2024: IMPRESSION Ms. Bella is a 68 year old female who presents for follow up of LLAMAS with bridging fibrosis on bx 2021. She has chronic diarrhea likely from BAM s/p daljit which worsened a few months ago after trying Trulicity for 1 month. She reports some chills a few weeks ago with lower abdominal discomfort. Hxdiverticulitis and c diff in the past. PLAN -Fibroscan today -RUQ US -CBC, CMP, AFP, INR, c diff, cx, giardia -CTAP w/ contrast if pain worsens -Continue Carafate- need to space dosing from Eliquis and flecainide 02/21/2002 Liver Bx: Hepatic steatosis, moderate and diffuse. Mild portal fibrosis. With chronic non- specific inflammation. 03/20/2020 RUQ US: 1. Sonographic findings are consistent with a liver changes. No focal liver lesion. 2. Status post cholecystectomy. No abnormal bile duct dilatation 03/31/2020 Fibroscan: Please refer to get images report for individual readings Number of readings: 10 IQR:22% E (kpa):15.3 CAP:336 Impression. The reading was adequate, and corresponds to Fibrosis stage F4 and steatosis grade of S3. 06/29/2020 Labs-T bili 0.5, ALP 132, AST 89, ALT 143, CRP 0.6, ESR 18 09/22/2020 CTAP w/ IV contrast: 1. Several lymph nodes near the celiac axis unchanged size of largest 1.1 cm. 2. No new evidence of adenopathy 3. No evidence of thickening of the wall of the stomach seen on this study. 09/28/2020 Labs-T bili 0.4, ALP 151, AST 87, ALT 175 09/23/2021 Liver, biopsy: Steatohepatitis with bridging fibrosis (CESAR Stage 3), see comment COMMENT The patient's history of elevated BMI, hypertension, hypothyroidism, type 2 diabetes, and heart failure is noted. Laboratory testing demonstrating persistent transaminitis for at least one year is noted. The patient's medication list is reviewed. The portal tracts contain variable lymphocyte predominant inflammation which is associated with patchy interface activity. Only scattered plasma cells are seen. The interlobular bile ducts are present and without injury. Within the lobule, mild macrovesicular steatosis (5-10%) is seen which is associated with numerous hepatocytes undergoing ballooning degeneration. Scattered foci of chronic inflammatory cells are also seen within the lobule. No hepatocellular apoptosis, cholestasis, or necrosis is seen. A special stain for trichrome highlights prominent periportaland perivenular pericellular fibrosis as well as areas of bridging fibrosis. An iron stain is negative. A PAS-D stain is negative for intrahepatocellular PAS positive globules. Overall, these findings are most in keeping with steatohepatitis with bridging fibrosis. The differential diagnosis for these findings includes chronic toxic/metabolic injury occurring in the setting of NAFLD/ALD. Fatty Liver Disease Scoring NAFLD Activity Score (CESAR): Steatosis: 1 (5-33%) Lobular inflammation (foci per 20x field): 2 (2-4) Hepatocyte balloonin (many) Total Score: 5/8. Stage: 3 (bridging) 11/01/2022 EGD; Impression: - Z-line irregular, 35 cm from the incisors. Biopsied. - Normal esophagus. - Normal stomach. Biopsied. - Multiple gastric polyps. Resected and retrieved. - Normal examined duodenum. Biopsied. A. Small intestine, biopsy: - Duodenal mucosa with an intact villous architecture and intraepithelial lymphocytosis, see comment. B. Stomach, antrum, biopsy: - Reactive gastropathy with mild chronic inactive gastritis. - No intestinal metaplasia or morphologic evidence of Helicobacter pylori organisms. C. Stomach, polyp, biopsy: - Fundic gland polyp. D. Gastroesophageal junction, 35 cm, biopsy: - Squamous esophageal mucosa and mildly inflamed gastric cardiofundic-type mucosa with reactive epithelial changes; negative for intestinal metaplasia. 11/01/2022 Colonoscopy: Impression: - The examined portion of the ileum was normal. - Mild diverticulosis in the sigmoid colon. There was evidence of diverticular spasm. Asya-diverticular erythema was seen. Petechia were visualized in association with the diverticular opening. There was no evidence of diverticular bleeding. - The examination was otherwise normal. - The distal rectum and anal verge are normal on retroflexion view. - Biopsies were taken with a cold forceps from the right colon and left colon for evaluation of microscopic colitis. E. Colon, right, biopsy: - Colonic mucosa with no significant pathologic change. F. Colon, left, biopsy: - Colonic mucosa with no significant pathologic change. 03/11/2024 Fibroscan: Caution should be used while interpreting Fibroscan given concerns for body habitus/rib echoing/vessel in path of probe/ascites, etc. and further testing can be considered, at discretion of the ordering provider. I spent about an hour capturing the images and then I could not get the cap to 100% I spoke to Uriah Mueller who ordered it and she will discuss with about ordering a Liver Biopsy. Please refer to get images report for individual readings Number of readings: 10 IQR %: 23% E (kpa): 20.1 CAP: 366 Impression Please see the above concerns FS=20.1 kPA. The CAP score is 366 and corresponds to steatosis grade of S3. This reading corresponds: A kPa >20 indicates a high likelihood of stage 4 fibrosis/cirrhosis, consider further testing toconfirm. 03/19/2024 CTAP w/ IV contrast: Liver: Stable subcentimeter hypodense lesion in the right lobe too small to characterize. Biliary: No bile duct dilation. Gallbladder is absent. Spleen: No mass. No splenomegaly. Pancreas: No mass or duct dilation. GI tract: No dilated small or large bowel. There is mild wall thickening of the sigmoid colon. Colonic diverticula present. Appendix is normal. Lymph nodes: Mildly enlarged periportal lymph nodes measuring up to 1.3 cm short axis not significantly changed since prior CT. IMPRESSION: Mild wall thickening of the sigmoid colon which may represent mild diverticulitis/colitis. No fluidcollection or pneumoperitoneum. 03/22/2024 US abd Spleen: Increased echotexture liver sonographically consistent with fatty liver changes. Cholecystectomy without abnormal bile duct dilatation Latest Ref Rng 03/13/2024 Shigella spp./Enteroinvasive E.coli DNA Not Detected Not detected Campylobacter jejuni/coli DNA Not Detected Not detected Shiga toxin-producing gene(s) Not Detected Not detected Salmonella spp. DNA Not Detected Not detected Cryptosporidium Antigen by EIA Negative Negative for Cryptosporidium by EIA. Giardia Antigen by EIA Negative Negative for Giardia lamblia by EIA. C. difficile PCR Negative for C. difficile toxin by PCR Negative for C. difficile toxin by PCR Latest Ref Rng 01/06/2022 03/13/2024 WBC 3.70 - 11.00 k/uL 6.15 RBC 3.90 - 5.20 m/uL 4.64 Hemoglobin 11.5 - 15.5 g/dL 13.8 Hematocrit 36.0 - 46.0 % 42.5 MCV 80.0 - 100.0 fL 91.6 MCH 26.0 - 34.0 pg 29.7 MCHC 30.5 - 36.0 g/dL 32.5 RDW-CV 11.5 - 15.0 % 13.3 Platelet Count 150 - 400 k/uL 195 MPV 9.0 - 12.7 fL 10.8 Neut% % 51.8 Abs Neut (ANC) 1.45 - 7.50 k/uL 3.19 Lymph% % 38.5 Abs Lymph 1.00 - 4.00 k/uL 2.37 Lyon% % 6.7 Abs Lyon <0.87 k/uL 0.41 Eosin% % 2.3 Abs Eosin <0.46 k/uL 0.14 Baso% % 0.5 Abs Baso <0.11 k/uL 0.03 Immature Gran % % 0.2 IMMATURE GRANS (ABS) <0.10 k/uL <0.03 DTYPE Auto Protein, Total 6.3 - 8.0 g/dL 7.4 Albumin 3.9 - 4.9 g/dL 3.8 (L) Calcium 8.5 - 10.2 mg/dL 9.7 Bilirubin, Total 0.2 - 1.3 mg/dL 0.4 Alkaline Phosphatase 34 - 123 U/L 115 AST 13 - 35 U/L 87 (H) ALT 7 - 38 U/L 99 (H) Glucose 74 - 99 mg/dL 136 (H) BUN 7 - 21 mg/dL 11 Creatinine 0.58 - 0.96 mg/dL 0.74 Sodium 136 - 144 mmol/L 140 Potassium 3.7 - 5.1 mmol/L 4.1 Chloride 98 - 107 mmol/L 107 CO2 22 - 30 mmol/L 21 (L) Anion Gap 8 - 15 mmol/L 12 eGFR >=60 mL/min/1.73m 88 Iron 41 - 186 ug/dL 44 TIBC 232 - 386 ug/dL 391 (H) Transferrin Saturation 15 - 57 % 11 (L) T4 5.5 - 10.2 ug/dL 10.9 (H) T4 Uptake 0.91 - 1.19 1.06 FTI 5.3 - 10.8 ug/dL 10.3 Transglutaminase Ab, IgG <20 Units 5 Transglutaminase Ab, IgG Negative, Test not Indicated Negative Transglutaminase Ab, IgA <20 Units 4 Transglutaminase IgA Qualitative Negative, Test not Indicated Negative AFP <11.0 ng/mL 3.0 AFP, Serum (Tumor Marker) <9.00 ng/mL 2.77 PT Sec <13.1 sec 11.1 PT INR 0.9 - 1.3 1.1 Alpha 1 Antitrypsin 90 - 200 mg/dL 150 Ferritin 14.7 - 205.1 ng/mL 131.9 GGT 6 - 46 U/L 58 (H) Hep B Core Ab, IgM Negative Negative Hep B Surface Ab, Qual Negative Negative Hep B Surface Ag Negative Negative Hep C Antibody IA Negative Negative Mitochondrial Ab Panel Negative Negative Smooth Muscle Ab Panel Negative Negative TSH 0.270 - 4.200 mIU/L 0.699 IgA 70 - 400 mg/dL 288 ALLERGIES Allergen Reactions Adhesive Tape rash Avelox [Moxifloxaci* Heart race Biaxin [Clarithromy* Hives, GI Upset Eryc [Erythromycin] Swelling Metformin GI Upset Throwing up, Diarrhea Penicillins Quinolones Avelox Remicade [Inflixima* Shortness of Breath Spironolactone Intolerance Headaches Sutures Other: See Comments Suture do not dissolve Demerol [Meperidine* Other: See Comments Arm swelled up locally and turned red. PAST MEDICAL HISTORY No date: Acute deep vein thrombosis (DVT) of popliteal vein of left lower extremity (HCC) Comment: Four DVT's last one 20 years ago- control- and after fracture 03/2000: Asymptomatic postmenopausal status (age-related) (natural) Comment: LMP 03/2000 No date: CHF (congestive heart failure) (HCC) 2018: Colon cancer (HCC) No date: Colorectal cancer (HCC) 2017: Endocarditis 08/24/2018: Essential hypertension 08/24/2018: Gastroesophageal reflux disease without esophagitis No date: GERD (gastroesophageal reflux disease) No date: Irritable bowel syndrome Comment: Irritable bowel Syndrome 2005: Kidney stones 07/17/2016: Left-sided chest wall pain 2020: Multiple gastric ulcers 08/24/2018: MARILIA (obstructive sleep apnea) 08/24/2018: Other hyperlipidemia No date: Paroxysmal atrial fibrillation (HCC) 1996: Personal history of malignant neoplasm of breast Comment: 1996 Breast cancer, clinical stage 1 infiltrating carcinoma left breast No date: Phlebitis and thrombophlebitis of other deep vessels of lower extremities Comment: Phlebitis No date: Phlebitis and thrombophlebitis of other deep vessels of lower extremities Comment: history of 3 DVTs Left Leg 09/1991: PM - PAST MEDICAL HISTORY OF Comment: pap abnormal cells derived from serve dysplasia 11/1991: [facility] - PAST MEDICAL HISTORY OF Comment: pap moderate - severe dysplasia 08/24/2018: Postoperative hypothyroidism No date: Pre-diabetes 08/24/2018: Rheumatoid arthritis (HCC) No date: Shingles No date: Thyroid disease PAST SURGICAL HISTORY 2017: CARDIAC CATH 2001: CHOLECYSTECTOMY 11/08/2011: COLONOSCOPY Comment: Dr. Esteban-Random Bx-unremarkable. Sigmoid Bx-focal hyperplastic changes. 03/31/2015: COLONOSCOPY Comment: Dr. Esteban-evidence of large scar in the perianal area secondary to resection of SCC 2011. Random Bx's-unremarkable. 04/28/2020: COLONOSCOPY Comment: Dr. Esteban-bilious gastric fluid. Bile gastritis. Antrum Bx-unremarkable, HP negative. GEJ Bx-mild inflammation. 11/01/2022: COLONOSCOPY DIAGNOSTIC 12/1991: COLPOSCOPY CERVIX UPPER/ADJACENT VAGINA Comment: Colposcopy 01/1992: CONIZATION CERVIX W/WO D&C RPR ELTRD EXC Comment: CONE BX, focal atypia 03/31/2015: EGD Comment: Dr. Esteban-HH. D2-unremarkable. Stomach body Bx-mild reactive gastropathy, HP negative. Stomach polyps-fundic gland. 12/29/2017: EGD Comment: Dr. Esteban-[facility]. Multiple gastric polyps-. Non-bleeding erosive gastropathy. Bilious gastric fluid. 2020: EGD 11/01/2022: EGD DIAGNOSTIC 03/31/2020: FIBROSCAN Comment: S3, F4 history of: LIG/TRNSXJ FLP TUBE ABDL/VAG APPR UNI/BI Comment: Tubal ligation 02/21/2002: LIVER BIOPSY Comment: hepatic steatosis, moderate and diffuse. Mild portal fibrosis with chronic non-specific inflammation no evidence of cirrhosis. 06/1997: MASTEC PARTIAL W AXILL NODE REMOV Comment: left - had radiation and chemo 1996: MRI BREAST BIOPSY Comment: excisional Breast BX, BREAST CANCER, clinical stage1 infiltrating carcinoma left breast 07/2008: PAST SURGICAL HISTORY OF Comment: had "fatty tumor" removed from back 01/02/2012: PAST SURGICAL HISTORY OF Comment: excision perianal lesion-invasive moderately differentiated squamous cell CA 08/29/2018: PAST SURGICAL HISTORY OF Comment: Excision of 5 x 6 cm posterior back mass, No date: PAST SURGICAL HISTORY OF; Left Comment: scope knee No date: PAST SURGICAL HISTORY OF Comment: Partial thyroidectomy 1972: THYROIDECTOMY TOTAL/COMPLETE FAMILY HISTORY Problem Relation Age of Onset Breast Cancer Maternal Grandmother Breast Cancer Paternal Grandmother Cancer Paternal Grandfather bone cancer Prostate Cancer Paternal Grandfather Coronary Artery Disease Father Kidney Disease Father Diabetes Other mat grt grdf Liver Cancer Brother Hypertension Mother No Known Problems Daughter Diabetes Son Heart Brother Heart Brother Colon Cancer No Family History other (Blood Clot) No Family History Social History Tobacco Use Smoking status: Former Packs/day: 1.00 Years: 15.00 Additional pack years: 0.00 Total pack years: 15.00 Types: Cigarettes Quit date: 09/11/1989 Years since quittin.6 Passive exposure: Never Smokeless tobacco: Never Vaping Use Vaping Use: Never used Substance Use Topics Alcohol use: No Comment: occasional, rare Drug use: Never Comment: a few times a year Current Outpatient Medications Medication Sig metoprolol tartrate, short acting, (LOPRESSOR) 25 mg tablet 1 tablet with food Orally Twice a day for 30 day(s) sucralfate (CARAFATE) 1 gram tablet Dissolve 1 tablet into 1-2 tbsp water and drink as a slurry twice daily. Do not eat or drink for 30 mins after taking. glipiZIDE (GLUCOTROL) 5 mg tablet Take 0.5 tablets (2.5 mg) by mouth two times a day before meals. exenatide microspheres (BYDUREON BCISE) 2 mg/0.85 mL injection Inject 2 mg subcutaneously one time a week. ONETOUCH ULTRASOFT LANCETS lancets Use as directed to check glucose once daily.E11.9 ONETOUCH ULTRA TEST test strip Use as directed to check glucose once daily. E11.9 Blood-Glucose Meter (ONETOUCH ULTRA2 METER) monitoring kit Use to test blood sugar daily, DX: E11.9, NIDDM Lancing Device (LANCING DEVICE WITH LANCETS) [facility] [place] Lancet device for one touch delica lancets; checkglucose once daily ; E11.9, NIDDM SYNTHROID 200 mcg tablet Take one tablet Monday through Monday,and half a pill on Saturdays and none on Sundays. losartan (COZAAR) 25 mg tablet Take 0.5 tablets by mouth once daily. (Patient taking differently: Take 25 mg by mouth once daily.) flecainide (TAMBOCOR) 100 mg tablet Take 1 tablet by mouth every 12 hours. apixaban (ELIQUIS) 5 mg tab(s) Take 1 tablet by mouth twice daily. furosemide (LASIX) 20 mg tablet Take 2 tablets by mouth every other day. potassium chloride (K-TAB) 10 mEq tablet Take 1 tablet by mouth once daily. traMADol (ULTRAM) 50 mg tablet Take 1 tablet by mouth as directed. albuterol HFA (PROVENTIL HFA, VENTOLIN HFA) 90 mcg/actuation inhaler as needed. golimumab (SIMPONI ARIA INTRAVENOUS) Inject intravenously every 8 weeks. 2mg/kg (242mg) CPAP celecoxib (CELEBREX) 200 mg capsule Take 1 capsule by mouth once daily. acetaminophen(TYLENOL ARTHRITIS 650 MG TAB) Take 2 tablets daily. omeprazole (PRILOSEC) 40 mg capsule TAKE 1 CAPSULE BY MOUTH ONCE DAILY No current facility-administered medications for this visit. REVIEW OF SYSTEMS: PAIN ASSESSMENT: Negative for pain, history of chronic pain, or current treatment for a chronic pain condition. GENERAL: No weight loss, malaise or fevers HEENT: Negative for frequent or significant headaches, No changes in hearing or vision, no nose bleeds or other nasal problems NECK: Negative for lumps, goiter, pain and significant neck swelling RESPIRATORY: Negative for cough, hemoptysis, wheezing, COPD, dyspnea or shortness of breath CARDIOVASCULAR: Negative for chest pain, leg swelling, hypertension, CHF or palpitations GI: No nausea, vomiting, or diarrhea : No history of dysuria, frequency or incontinence MUSCULOSKELETAL: Negative for joint pain or swelling, back pain or muscle pain SKIN: Negative for lesions, rash, and itching PSYCH: Negative for sleep disturbance, mood disorder and recent psychosocial stressors HEMATOLOGY/LYMPHOLOGY: Negative for prolonged bleeding, bruising easily or swollen nodes ENDOCRINE: Negative for cold or heat intolerance, polyuria, polydipsia and goiter NEURO: No history of headaches, syncope, paralysis, seizures or tremors PHYSICAL EXAMINATION: BP 164/97 Pulse 90 Wt 283 lb (128.4kg) LMP 03/11/1998 neral appearance: Well appearing, alert, in no acute distress, well-hydrated, well nourished. Skin: Skin color, texture, turgor normal, no suspicious rashes or lesions Head: Normocephalic, no masses, lesions, tenderness or abnormalities Eyes: Anicteric sclera. Pupils are equally round and reactive to light. Extraocular movements are intact. Nose/Sinuses: Nares normal, septum midline, mucosa normal, no drainage or sinus tenderness Oropharynx: Lips, mucosa, and tongue normal, teeth and gums normal, oropharynx normal Neck: Supple, no adenopathy; thyroid symmetric, normal size, no bruits Lungs: Lungs clear to auscultation. No wheezing, rhonchi, rales Heart: RRR without murmur, gallop, or rubs. No ectopy Abdomen: Normal abdominal exam, Abdomen soft, non-tender. Bowel sounds normal. No masses, organomegaly Extremities: No deformities, edema, skin discoloration, clubbing or cyanosis. Good capillary refill. Musculoskeletal: No joint swelling, deformity, or tenderness Peripheral pulses: Normal Neuro: Gait normal. ASSESSMENT/PLAN: 1. Fatty metamorphosis of liver - ICD9: 571.8, ICD10: K76.0 (primary diagnosis) The patient has metabolic syndrome with diabetes mellitus, hypertension and diabetes with central obesity and fatty liver. I am concerned about possibility of liver cirrhosis. Liver biopsy 2 and half years ago showed bridging fibrosis. She has not been able to lose much weight and has been battling with this problem for many years. She is very frustrated and tearful about her weight. She shared with me and her the degree of frustration and feeling as if she is trapped in her diseases. I spent at least [id number] counseling her about the importance of doing something about her weight. I strongly recommend sleeve gastrectomy and to proceed with for evaluation through Dr. Lemon office. Will communicate with Dr. Lemon and ask for intraoperative liver biopsy. 2. Liver fibrosis - ICD9: 571.5, ICD10: K74.00 R/O liver cirrhosis. 3. Gastroesophageal reflux disease without esophagitis - ICD9: 530.81, ICD10: K21.9 Continue taking omeprazole and Carafate. It is imperative to avoid late meals and at least allow for-5 hours between your last meal and bedtime. 4. Hx of cholecystectomy - ICD9: V45.79, ICD10: Z90.49 5. BMI 50.0-59.9, adult (HCC) - ICD9: V85.43, ICD10: Z68.[address] Mendoza for sleeve gastrectomy. It will help her tremendously with her medical conditions (DM, RA, hypertension, sleep apnea with CPAP & hepatic fibrosis/cirrhosis). Follow-up with me in 6 months bilateral I hope by that time she already had sleeve gastrectomy and intraoperative liver biopsy. Rosy Esteban MD, FACP [facility]07-31-2024 History and physical note* Rosy Esteban MD - 04/10/2024 8:40 AM EDT REASON FOR VISIT: Fatty liver and hepatic fibrosis HPI: Alexandra Bella is a 68 year old female who presents for follow-up visit. She is well-established my practice. She has multiple medical and GI problems. Chronic GERD and takes omeprazole 40 mg in the morning and Carafate 1 g to 3 times daily. She stillsymptomatic specially in the morning. However, she eats late sometimes and go to bed early. Last EGD 10/2022. She is not a smoker and barely drinks alcohol. Diabetes mellitus and on treatment with glipizide. She was not treated with the Trulicity for 3 weeks but stopped because of profuse diarrhea. Rheumatoid arthritis and started recently on treatment with golimumab (Sinponi). She is on Eliquis for atrial fibrillation. Severe obesity with BMI 50.1. She was referred to Dr. Ross in the past and started the process of evaluation but did not go through it. She has been battling with her weight for long time. Currently she on treatment with oral antibiotic, doxycycline for cyst removed from the groin surgically. Steatohepatitis/hepatic cyst fibrosis. Liver biopsy 09/2021 showed steatohepatitis with bridging fibrosis. FibroScan ordered by Uriah Mueller showed S3 F4 but the report mentioned that it was difficult to get an accurate FibroScan results. Previous work up includes: Last OV with Uriah Mueller, 03/11/2024: IMPRESSION Ms. Bella is a 68 year old female who presents for follow up of LLAMAS with bridging fibrosis on bx 2021. She has chronic diarrhea likely from BAM s/p daljit which worsened a few months ago after trying Trulicity for 1 month. She reports some chills a few weeks ago with lower abdominal discomfort. Hxdiverticulitis and c diff in the past. PLAN -Fibroscan today -RUQ US -CBC, CMP, AFP, INR, c diff, cx, giardia -CTAP w/ contrast if pain worsens -Continue Carafate- need to space dosing from Eliquis and flecainide 02/21/2002 Liver Bx: Hepatic steatosis, moderate and diffuse. Mild portal fibrosis. With chronic non- specific inflammation. 03/20/2020 RUQ US: 1. Sonographic findings are consistent with a liver changes. No focal liver lesion. 2. Status post cholecystectomy. No abnormal bile duct dilatation 03/31/2020 Fibroscan: Please refer to get images report for individual readings Number of readings: 10 IQR:22% E (kpa):15.3 CAP:336 Impression. The reading was adequate, and corresponds to Fibrosis stage F4 and steatosis grade of S3. 06/29/2020 Labs-T bili 0.5, ALP 132, AST 89, ALT 143, CRP 0.6, ESR 18 09/22/2020 CTAP w/ IV contrast: 1. Several lymph nodes near the celiac axis unchanged size of largest 1.1 cm. 2. No new evidence of adenopathy 3. No evidence of thickening of the wall of the stomach seen on this study. 09/28/2020 Labs-T bili 0.4, ALP 151, AST 87, ALT 175 09/23/2021 Liver, biopsy: Steatohepatitis with bridging fibrosis (CESAR Stage 3), see comment COMMENT The patient's history of elevated BMI, hypertension, hypothyroidism, type 2 diabetes, and heart failure is noted. Laboratory testing demonstrating persistent transaminitis for at least one year is noted. The patient's medication list is reviewed. The portal tracts contain variable lymphocyte predominant inflammation which is associated with patchy interface activity. Only scattered plasma cells are seen. The interlobular bile ducts are present and without injury. Within the lobule, mild macrovesicular steatosis (5-10%) is seen which is associated with numerous hepatocytes undergoing ballooning degeneration. Scattered foci of chronic inflammatory cells are also seen within the lobule. No hepatocellular apoptosis, cholestasis, or necrosis is seen. A special stain for trichrome highlights prominent periportaland perivenular pericellular fibrosis as well as areas of bridging fibrosis. An iron stain is negative. A PAS-D stain is negative for intrahepatocellular PAS positive globules. Overall, these findings are most in keeping with steatohepatitis with bridging fibrosis. The differential diagnosis for these findings includes chronic toxic/metabolic injury occurring in the setting of NAFLD/ALD. Fatty Liver Disease Scoring NAFLD Activity Score (CESAR): Steatosis: 1 (5-33%) Lobular inflammation (foci per 20x field): 2 (2-4) Hepatocyte balloonin (many) Total Score: 5/8. Stage: 3 (bridging) 11/01/2022 EGD; Impression: - Z-line irregular, 35 cm from the incisors. Biopsied. - Normal esophagus. - Normal stomach. Biopsied. - Multiple gastric polyps. Resected and retrieved. - Normal examined duodenum. Biopsied. A. Small intestine, biopsy: - Duodenal mucosa with an intact villous architecture and intraepithelial lymphocytosis, see comment. B. Stomach, antrum, biopsy: - Reactive gastropathy with mild chronic inactive gastritis. - No intestinal metaplasia or morphologic evidence of Helicobacter pylori organisms. C. Stomach, polyp, biopsy: - Fundic gland polyp. D. Gastroesophageal junction, 35 cm, biopsy: - Squamous esophageal mucosa and mildly inflamed gastric cardiofundic-type mucosa with reactive epithelial changes; negative for intestinal metaplasia. 11/01/2022 Colonoscopy: Impression: - The examined portion of the ileum was normal. - Mild diverticulosis in the sigmoid colon. There was evidence of diverticular spasm. Asya-diverticular erythema was seen. Petechia were visualized in association with the diverticular opening. There was no evidence of diverticular bleeding. - The examination was otherwise normal. - The distal rectum and anal verge are normal on retroflexion view. - Biopsies were taken with a cold forceps from the right colon and left colon for evaluation of microscopic colitis. E. Colon, right, biopsy: - Colonic mucosa with no significant pathologic change. F. Colon, left, biopsy: - Colonic mucosa with no significant pathologic change. 03/11/2024 Fibroscan: Caution should be used while interpreting Fibroscan given concerns for body habitus/rib echoing/vessel in path of probe/ascites, etc. and further testing can be considered, at discretion of the ordering provider. I spent about an hour capturing the images and then I could not get the cap to 100% I spoke to Uriah Mueller who ordered it and she will discuss with about ordering a Liver Biopsy. Please refer to get images report for individual readings Number of readings: 10 IQR %: 23% E (kpa): 20.1 CAP: 366 Impression Please see the above concerns FS=20.1 kPA. The CAP score is 366 and corresponds to steatosis grade of S3. This reading corresponds: A kPa >20 indicates a high likelihood of stage 4 fibrosis/cirrhosis, consider further testing toconfirm. 03/19/2024 CTAP w/ IV contrast: Liver: Stable subcentimeter hypodense lesion in the right lobe too small to characterize. Biliary: No bile duct dilation. Gallbladder is absent. Spleen: No mass. No splenomegaly. Pancreas: No mass or duct dilation. GI tract: No dilated small or large bowel. There is mild wall thickening of the sigmoid colon. Colonic diverticula present. Appendix is normal. Lymph nodes: Mildly enlarged periportal lymph nodes measuring up to 1.3 cm short axis not significantly changed since prior CT. IMPRESSION: Mild wall thickening of the sigmoid colon which may represent mild diverticulitis/colitis. No fluidcollection or pneumoperitoneum. 03/22/2024 US abd Spleen: Increased echotexture liver sonographically consistent with fatty liver changes. Cholecystectomy without abnormal bile duct dilatation Latest Ref Rng 03/13/2024 Shigella spp./Enteroinvasive E.coli DNA Not Detected Not detected Campylobacter jejuni/coli DNA Not Detected Not detected Shiga toxin-producing gene(s) Not Detected Not detected Salmonella spp. DNA Not Detected Not detected Cryptosporidium Antigen by EIA Negative Negative for Cryptosporidium by EIA. Giardia Antigen by EIA Negative Negative for Giardia lamblia by EIA. C. difficile PCR Negative for C. difficile toxin by PCR Negative for C. difficile toxin by PCR Latest Ref Rng 01/06/2022 03/13/2024 WBC 3.70 - 11.00 k/uL 6.15 RBC 3.90 - 5.20 m/uL 4.64 Hemoglobin 11.5 - 15.5 g/dL 13.8 Hematocrit 36.0 - 46.0 % 42.5 MCV 80.0 - 100.0 fL 91.6 MCH 26.0 - 34.0 pg 29.7 MCHC 30.5 - 36.0 g/dL 32.5 RDW-CV 11.5 - 15.0 % 13.3 Platelet Count 150 - 400 k/uL 195 MPV 9.0 - 12.7 fL 10.8 Neut% % 51.8 Abs Neut (ANC) 1.45 - 7.50 k/uL 3.19 Lymph% % 38.5 Abs Lymph 1.00 - 4.00 k/uL 2.37 Lyon% % 6.7 Abs Lyon <0.87 k/uL 0.41 Eosin% % 2.3 Abs Eosin <0.46 k/uL 0.14 Baso% % 0.5 Abs Baso <0.11 k/uL 0.03 Immature Gran % % 0.2 IMMATURE GRANS (ABS) <0.10 k/uL <0.03 DTYPE Auto Protein, Total 6.3 - 8.0 g/dL 7.4 Albumin 3.9 - 4.9 g/dL 3.8 (L) Calcium 8.5 - 10.2 mg/dL 9.7 Bilirubin, Total 0.2 - 1.3 mg/dL 0.4 Alkaline Phosphatase 34 - 123 U/L 115 AST 13 - 35 U/L 87 (H) ALT 7 - 38 U/L 99 (H) Glucose 74 - 99 mg/dL 136 (H) BUN 7 - 21 mg/dL 11 Creatinine 0.58 - 0.96 mg/dL 0.74 Sodium 136 - 144 mmol/L 140 Potassium 3.7 - 5.1 mmol/L 4.1 Chloride 98 - 107 mmol/L 107 CO2 22 - 30 mmol/L 21 (L) Anion Gap 8 - 15 mmol/L 12 eGFR >=60 mL/min/1.73m 88 Iron 41 - 186 ug/dL 44 TIBC 232 - 386 ug/dL 391 (H) Transferrin Saturation 15 - 57 % 11 (L) T4 5.5 - 10.2 ug/dL 10.9 (H) T4 Uptake 0.91 - 1.19 1.06 FTI 5.3 - 10.8 ug/dL 10.3 Transglutaminase Ab, IgG <20 Units 5 Transglutaminase Ab, IgG Negative, Test not Indicated Negative Transglutaminase Ab, IgA <20 Units 4 Transglutaminase IgA Qualitative Negative, Test not Indicated Negative AFP <11.0 ng/mL 3.0 AFP, Serum (Tumor Marker) <9.00 ng/mL 2.77 PT Sec <13.1 sec 11.1 PT INR 0.9 - 1.3 1.1 Alpha 1 Antitrypsin 90 - 200 mg/dL 150 Ferritin 14.7 - 205.1 ng/mL 131.9 GGT 6 - 46 U/L 58 (H) Hep B Core Ab, IgM Negative Negative Hep B Surface Ab, Qual Negative Negative Hep B Surface Ag Negative Negative Hep C Antibody IA Negative Negative Mitochondrial Ab Panel Negative Negative Smooth Muscle Ab Panel Negative Negative TSH 0.270 - 4.200 mIU/L 0.699 IgA 70 - 400 mg/dL 288 ALLERGIES Allergen Reactions Adhesive Tape rash Avelox [Moxifloxaci* Heart race Biaxin [Clarithromy* Hives, GI Upset Eryc [Erythromycin] Swelling Metformin GI Upset Throwing up, Diarrhea Penicillins Quinolones Avelox Remicade [Inflixima* Shortness of Breath Spironolactone Intolerance Headaches Sutures Other: See Comments Suture do not dissolve Demerol [Meperidine* Other: See Comments Arm swelled up locally and turned red. PAST MEDICAL HISTORY No date: Acute deep vein thrombosis (DVT) of popliteal vein of left lower extremity (HCC) Comment: Four DVT's last one 20 years ago- control- and after fracture 03/2000: Asymptomatic postmenopausal status (age-related) (natural) Comment: LMP 03/2000 No date: CHF (congestive heart failure) (HCC) 2018: Colon cancer (HCC) No date: Colorectal cancer (HCC) 2017: Endocarditis 08/24/2018: Essential hypertension 08/24/2018: Gastroesophageal reflux disease without esophagitis No date: GERD (gastroesophageal reflux disease) No date: Irritable bowel syndrome Comment: Irritable bowel Syndrome 2005: Kidney stones 07/17/2016: Left-sided chest wall pain 2020: Multiple gastric ulcers 08/24/2018: MARILIA (obstructive sleep apnea) 08/24/2018: Other hyperlipidemia No date: Paroxysmal atrial fibrillation (HCC) 1996: Personal history of malignant neoplasm of breast Comment: 1996 Breast cancer, clinical stage 1 infiltrating carcinoma left breast No date: Phlebitis and thrombophlebitis of other deep vessels of lower extremities Comment: Phlebitis No date: Phlebitis and thrombophlebitis of other deep vessels of lower extremities Comment: history of 3 DVTs Left Leg 09/1991: [facility] - PAST MEDICAL HISTORY OF Comment: pap abnormal cells derived from serve dysplasia 11/1991: [facility] - PAST MEDICAL HISTORY OF Comment: pap moderate - severe dysplasia 08/24/2018: Postoperative hypothyroidism No date: Pre-diabetes 08/24/2018: Rheumatoid arthritis (HCC) No date: Shingles No date: Thyroid disease PAST SURGICAL HISTORY 2017: CARDIAC CATH 2001: CHOLECYSTECTOMY 11/08/2011: COLONOSCOPY Comment: Dr. Esteban-Random Bx-unremarkable. Sigmoid Bx-focal hyperplastic changes. 03/31/2015: COLONOSCOPY Comment: Dr. Esteban-evidence of large scar in the perianal area secondary to resection of SCC 2011. Random Bx's-unremarkable. 04/28/2020: COLONOSCOPY Comment: Dr. Esteban-bilious gastric fluid. Bile gastritis. Antrum Bx-unremarkable, HP negative. GEJ Bx-mild inflammation. 11/01/2022: COLONOSCOPY DIAGNOSTIC 12/1991: COLPOSCOPY CERVIX UPPER/ADJACENT VAGINA Comment: Colposcopy 01/1992: CONIZATION CERVIX W/WO D&C RPR ELTRD EXC Comment: CONE BX, focal atypia 03/31/2015: EGD Comment: Dr. Esteban-HH. D2-unremarkable. Stomach body Bx-mild reactive gastropathy, HP negative. Stomach polyps-fundic gland. 12/29/2017: EGD Comment: Dr. Esteban-small HH. Multiple gastric polyps-. Non-bleeding erosive gastropathy. Bilious gastric fluid. 2020: EGD 11/01/2022: EGD DIAGNOSTIC 03/31/2020: FIBROSCAN Comment: S3, F4 history of: LIG/TRNSXJ FLP TUBE ABDL/VAG APPR UNI/BI Comment: Tubal ligation 02/21/2002: LIVER BIOPSY Comment: hepatic steatosis, moderate and diffuse. Mild portal fibrosis with chronic non-specific inflammation no evidence of cirrhosis. 06/1997: MASTEC PARTIAL W AXILL NODE REMOV Comment: left - had radiation and chemo 1996: MRI BREAST BIOPSY Comment: excisional Breast BX, BREAST CANCER, clinical stage1 infiltrating carcinoma left breast 07/2008: PAST SURGICAL HISTORY OF Comment: had "fatty tumor" removed from back 01/02/2012: PAST SURGICAL HISTORY OF Comment: excision perianal lesion-invasive moderately differentiated squamous cell CA 08/29/2018: PAST SURGICAL HISTORY OF Comment: Excision of 5 x 6 cm posterior back mass, No date: PAST SURGICAL HISTORY OF; Left Comment: scope knee No date: PAST SURGICAL HISTORY OF Comment: Partial thyroidectomy 1972: THYROIDECTOMY TOTAL/COMPLETE FAMILY HISTORY Problem Relation Age of Onset Breast Cancer Maternal Grandmother Breast Cancer Paternal Grandmother Cancer Paternal Grandfather bone cancer Prostate Cancer Paternal Grandfather Coronary Artery Disease Father Kidney Disease Father Diabetes Other mat grt grdf Liver Cancer Brother Hypertension Mother No Known Problems Daughter Diabetes Son Heart Brother Heart Brother Colon Cancer No Family History other (Blood Clot) No Family History Social History Tobacco Use Smoking status: Former Packs/day: 1.00 Years: 15.00 Additional pack years: 0.00 Total pack years: 15.00 Types: Cigarettes Quit date: 09/11/1989 Years since quittin.6 Passive exposure: Never Smokeless tobacco: Never Vaping Use Vaping Use: Never used Substance Use Topics Alcohol use: No Comment: occasional, rare Drug use: Never Comment: a few times a year Current Outpatient Medications Medication Sig metoprolol tartrate, short acting, (LOPRESSOR) 25 mg tablet 1 tablet with food Orally Twice a day for 30 day(s) sucralfate (CARAFATE) 1 gram tablet Dissolve 1 tablet into 1-2 tbsp water and drink as a slurry twice daily. Do not eat or drink for 30 mins after taking. glipiZIDE (GLUCOTROL) 5 mg tablet Take 0.5 tablets (2.5 mg) by mouth two times a day before meals. exenatide microspheres (BYDUREON BCISE) 2 mg/0.85 mL injection Inject 2 mg subcutaneously one time a week. ONETOUCH ULTRASOFT LANCETS lancets Use as directed to check glucose once daily.E11.9 ONETOUCH ULTRA TEST test strip Use as directed to check glucose once daily. E11.9 Blood-Glucose Meter (ONETOUCH ULTRA2 METER) monitoring kit Use to test blood sugar daily, DX: E11.9, NIDDM Lancing Device (LANCING DEVICE WITH LANCETS) [facility] [place] Lancet device for one touch delica lancets; checkglucose once daily ; E11.9, NIDDM SYNTHROID 200 mcg tablet Take one tablet Monday through Monday,and half a pill on Saturdays and none on Sundays. losartan (COZAAR) 25 mg tablet Take 0.5 tablets by mouth once daily. (Patient taking differently: Take 25 mg by mouth once daily.) flecainide (TAMBOCOR) 100 mg tablet Take 1 tablet by mouth every 12 hours. apixaban (ELIQUIS) 5 mg tab(s) Take 1 tablet by mouth twice daily. furosemide (LASIX) 20 mg tablet Take 2 tablets by mouth every other day. potassium chloride (K-TAB) 10 mEq tablet Take 1 tablet by mouth once daily. traMADol (ULTRAM) 50 mg tablet Take 1 tablet by mouth as directed. albuterol HFA (PROVENTIL HFA, VENTOLIN HFA) 90 mcg/actuation inhaler as needed. golimumab (SIMPONI ARIA INTRAVENOUS) Inject intravenously every 8 weeks. 2mg/kg (242mg) CPAP celecoxib (CELEBREX) 200 mg capsule Take 1 capsule by mouth once daily. acetaminophen(TYLENOL ARTHRITIS 650 MG TAB) Take 2 tablets daily. omeprazole (PRILOSEC) 40 mg capsule TAKE 1 CAPSULE BY MOUTH ONCE DAILY No current facility-administered medications for this visit. REVIEW OF SYSTEMS: PAIN ASSESSMENT: Negative for pain, history of chronic pain, or current treatment for a chronic pain condition. GENERAL: No weight loss, malaise or fevers HEENT: Negative for frequent or significant headaches, No changes in hearing or vision, no nose bleeds or other nasal problems NECK: Negative for lumps, goiter, pain and significant neck swelling RESPIRATORY: Negative for cough, hemoptysis, wheezing, COPD, dyspnea or shortness of breath CARDIOVASCULAR: Negative for chest pain, leg swelling, hypertension, CHF or palpitations GI: No nausea, vomiting, or diarrhea : No history of dysuria, frequency or incontinence MUSCULOSKELETAL: Negative for joint pain or swelling, back pain or muscle pain SKIN: Negative for lesions, rash, and itching PSYCH: Negative for sleep disturbance, mood disorder and recent psychosocial stressors HEMATOLOGY/LYMPHOLOGY: Negative for prolonged bleeding, bruising easily or swollen nodes ENDOCRINE: Negative for cold or heat intolerance, polyuria, polydipsia and goiter NEURO: No history of headaches, syncope, paralysis, seizures or tremors PHYSICAL EXAMINATION: BP 164/97 Pulse 90 Wt 283 lb (128.4kg) LMP 03/11/1998 neral appearance: Well appearing, alert, in no acute distress, well-hydrated, well nourished. Skin: Skin color, texture, turgor normal, no suspicious rashes or lesions Head: Normocephalic, no masses, lesions, tenderness or abnormalities Eyes: Anicteric sclera. Pupils are equally round and reactive to light. Extraocular movements are intact. Nose/Sinuses: Nares normal, septum midline, mucosa normal, no drainage or sinus tenderness Oropharynx: Lips, mucosa, and tongue normal, teeth and gums normal, oropharynx normal Neck: Supple, no adenopathy; thyroid symmetric, normal size, no bruits Lungs: Lungs clear to auscultation. No wheezing, rhonchi, rales Heart: RRR without murmur, gallop, or rubs. No ectopy Abdomen: Normal abdominal exam, Abdomen soft, non-tender. Bowel sounds normal. No masses, organomegaly Extremities: No deformities, edema, skin discoloration, clubbing or cyanosis. Good capillary refill. Musculoskeletal: No joint swelling, deformity, or tenderness Peripheral pulses: Normal Neuro: Gait normal. ASSESSMENT/PLAN: 1. Fatty metamorphosis of liver - ICD9: 571.8, ICD10: K76.0 (primary diagnosis) The patient has metabolic syndrome with diabetes mellitus, hypertension and diabetes with central obesity and fatty liver. I am concerned about possibility of liver cirrhosis. Liver biopsy 2 and half years ago showed bridging fibrosis. She has not been able to lose much weight and has been battling with this problem for many years. She is very frustrated and tearful about her weight. She shared with me and her the degree of frustration and feeling as if she is trapped in her diseases. I spent at least [id number] counseling her about the importance of doing something about her weight. I strongly recommend sleeve gastrectomy and to proceed with for evaluation through Dr. Lemon office. Will communicate with Dr. Lemon and ask for intraoperative liver biopsy. 2. Liver fibrosis - ICD9: 571.5, ICD10: K74.00 R/O liver cirrhosis. 3. Gastroesophageal reflux disease without esophagitis - ICD9: 530.81, ICD10: K21.9 Continue taking omeprazole and Carafate. It is imperative to avoid late meals and at least allow for-5 hours between your last meal and bedtime. 4. Hx of cholecystectomy - ICD9: V45.79, ICD10: Z90.49 5. BMI 50.0-59.9, adult (HCC) - ICD9: V85.43, ICD10: Z68.[address] Mendoza for sleeve gastrectomy. It will help her tremendously with her medical conditions (DM, RA, hypertension, sleep apnea with CPAP & hepatic fibrosis/cirrhosis). Follow-up with me in 6 months bilateral I hope by that time she already had sleeve gastrectomy and intraoperative liver biopsy. Rosy Esteban MD, FACP documented in this encounterSelect [facility] [place] History of Present illness Narrative* Tawana Levine, TECHNOLOGIST - 03/22/2024 9:00 AM EDT Radiology Service Progress Note PATIENT NAME: Alexandra Bella DATE OF SERVICE: March 22, 2024 TIME: 9:39 AM PATIENT IDENTITY VERIFICATION COMPLETED USING TWO (2) IDENTIFIERS: Name and Date of confirmedby patient verbally. FALL SCREENING: Has the patient had 2 falls in the last year or 1 fall with injury or currently using an Ambulatory Assistive Device (Walker, Cane, Wheelchair, Crutches, etc.)? No PATIENT GENDER DATA: Female. status: : No status: NO. PATIENT RELEVANT IMPLANT DATA REVIEWED: Yes PATIENT PRESENTS WITH AN IMPLANTABLE OR ATTACHED THIRD HELPER: No RADIOLOGY DEPARTMENT: Ultrasound PERIPHERAL IV DATA: Not applicable SIGNED BY: Tawana Levine TECHNOLOGIST March 22, 2024 9:39 AM documented in this encounterSelect [facility] [place]24 Telephone encounter Note * Telephone Encounter - Uriah Mueller APRN.CNP - 03/21/2024 4:25 PM EDT Talked with pt about results. She had a technically challenging exam as the initial images could not be read per her report requiring repeat imaging. She has tolerated flagyl in the past. Dicussed risk of antibiotics given her allergies and past C diff. Pain is improving with time. On BRAT diet fornow. Can advance to soft. [facility] [place] Miscellaneous Notes* Telephone Encounter - Uriah Mueller APRN.CNP - 03/21/2024 4:25 PM EDT Talked with pt about results. She had a technically challenging exam as the initial images could not be read per her report requiring repeat imaging. She has tolerated flagyl in the past. Dicussed risk of antibiotics given her allergies and past C diff. Pain is improving with time. On BRAT diet fornow. Can advance to soft. documented in this encounterSelect [facility] [place] History of Present illness Narrative* Solitario Solomon RT(R) - 03/19/2024 11:00 AM EDT Radiology Service Progress Note DATE OF SERVICE: March 19, 2024 TIME: 1:05 PM PATIENT IDENTITY VERIFICATION COMPLETED USING TWO (2) STANDARD IDENTIFIERS: Name and Date of confirmed by patient verbally. FALL SCREENING: Has the patient had 2 falls in the last year or 1 fall with injury or currently using an Ambulatory Assistive Device (Walker, Cane, Wheelchair, Crutches, etc.)? No PATIENT GENDER DATA: Female. status: : No status: NO. PATIENT RELEVANT IMPLANT DATA REVIEWED: Not Applicable PATIENT PRESENTS WITH AN IMPLANTABLE OR ATTACHED THIRD HELPER: No ALLERGIES: Reviewed and unchanged CONTRAST ALLERGY: NO. EXAM: CT -CONTRAST INDUCED NEPHROPATHY RISK FACTORS: Patient age > 60 years and Diabetic: No CREATININE: Creatinine Date Value Ref Range Status 03/13/2024 0.74 0.58 - 0.96 mg/dL Final 02/22/2023 0.74 0.58 - 0.96 mg/dL Final 09/29/2022 0.78 0.58 - 0.96 mg/dL Final Estimated Glomerular Filtration Rate Date Value Ref Range Status 03/13/2024 88 >=60 mL/min/1.73m Final Comment: Estimated Glomerular Filtration Rate (eGFR) is calculated using the 2020 CKD-EPI creatinine equation. This equation utilizes serum creatinine, sex, and age as parameters. The creatinine assay has traceable calibration to isotope dilution- mass spectrometry. Refer to KDIGO guidelines for clinical interpretation. In patients with unstable renal function, e.g. those with acute kidney injury, the eGFRmay not accurately reflect actual GFR. eGFR- Date Value Ref Range Status 10/12/2021 >60 Final P.O.C.T. RESULTS: POC done: Yes, See Lab Tab March 19, 2024 TREATMENT: N/A PERIPHERAL IV DATA: Ambulatory: A peripheral IV was started in the Right forearm with a Angio cath:22 gauge. RADIOLOGY DEPARTMENT: CT; Exam(s) Completed: Abdomen/Pelvis SIGNATURE: RT Clifford(R) PATIENT NAME: Alexandra Bella DATE: March 19, 2024 TIME: 1:05 PM documented in this encounterSelect [facility] [place] Telephone encounter Note * Telephone Encounter - Elzbieta Barth - 03/18/2024 3:38 PM EDT Pt called in and scheduled. Also scheduled CT and US. [facility] [place] Miscellaneous Notes* Telephone Encounter - Elzbieta Barth - 03/18/2024 3:38 PM EDT Pt called in and scheduled. Also scheduled CT and US. * Telephone Encounter - Hailey Ocampo RN - 03/18/2024 3:21 PM EDT Pt can be scheduled on 04/10/2024. Thank you, Hailey Ocampo RN * Telephone Encounter - Brynn Patel - 03/18/2024 3:19 PM EDT Should patient be scheduled in pancreas/biliary slot or double booked on regular clinic day? * Telephone Encounter - Hailey Ocampo RN - 03/18/2024 11:15 AM EDT Pt read [employer] msg. Schedulers, please schedule OV as indicated below. Thank you, Hailey Ocampo RN * Telephone Encounter - Hailey Ocampo RN - 03/18/2024 11:15 AM EDT ----- Message from Rosy Esteban MD sent at 03/17/2024 9:47 PM EDT ----- Regarding: Unable to get accurate fibroscan result FibroScan results 03/11/2024: Steatosis CAP 366 ===> S3 Fibrosis MELANY 20.1 ===> F4. Follow-up with me in the office in 1 month to discuss results and future management plan. Liver biopsy 09/2021 showed steatohepatitis with bridging fibrosis. Rosy Esteban MD documented in this encounterSelect [facility] [place] Telephone encounter Note * Telephone Encounter - Hailey Ocampo RN - 03/18/2024 3:21 PM EDT Pt can be scheduled on 04/10/2024. Thank you, Hailey Ocampo RN [facility] Work Phone: [phone]) 342-543407-08-2024 Telephone encounter Note* Telephone Encounter - Brynn Patel - 03/18/2024 3:19 PM EDT Should patient be scheduled in pancreas/biliary slot or double booked on regular clinic day? [facility] [place] Telephone encounter Note* Telephone Encounter - Hailey Ocampo RN - 03/18/2024 11:15 AM EDT Pt read MyChart msg. Schedulers, please schedule OV as indicated below. Thank you, Hailey Ocampo RN [facility] [place]07-08-2024 Telephone encounter Note* Telephone Encounter - Hailey Ocampo RN - 03/18/2024 11:15 AM EDT ----- Message from Rosy Esteban MD sent at 03/17/2024 9:47 PM EDT ----- Regarding: Unable to get accurate fibroscan result FibroScan results 03/11/2024: Steatosis CAP 366 ===> S3 Fibrosis MELANY 20.1 ===> F4. Follow-up with me in the office in 1 month to discuss results and future management plan. Liver biopsy 09/2021 showed steatohepatitis with bridging fibrosis. Rosy Esteban MD [facility] [place] History of Present illness Narrative* Joon Bustillos APRN.SALES AND MARKETING ASSISTANT - 03/11/2024 1:19 PM EDT Patient fasting for 3 hours:Yes Fibroscan was performed on March 11, 2024, by Lia Holland MA and results are interpreted by Marquita Bustillos CNP Indication: Hepatic Steatosis Technical difficulties: Caution should be used while interpreting Fibroscan given concerns for body habitus/rib echoing/vessel in path of probe/ascites, etc. and further testing can be considered, at discretion of the ordering provider. I spent about an hour capturing the images and then I could not get the cap to 100% I spoke to Uriah Mueller who ordered it and she will discuss with about ordering a Liver Biopsy. Please refer to get images report for individual readings Number of readings: 10 IQR %: 23% E (kpa): 20.1 CAP: 366 Impression Please see above concerns FS=20.1 kPA. The CAP score is 366 and corresponds to steatosis grade of S3. This reading corresponds: A kPa >20 indicates a high likelihood of stage 4 fibrosis/cirrhosis, consider further testing toconfirm. Joon Bustillos APRN.SERVANDO MASTHOMAS Fibroscan Fibrosis Risk <7 kPA = F0-F2 97%, F3+F4 3%, F4 <1% <10 kPA = F0-F2 91%, F3+F4 9%, F4 1.3% 10-15 kPA = F0-F2 56%, F3+F4 43%, F4 14% >15 kPA = F0-F2 26%, F3+F4 74%, F4 46% Grade CAP value up to 237 dB/M corresponds to S0 (< 10 % Fat) CAP value between (238 - 258 dB/M) corresponds to S1 (>/= 11 % Fat) CAP value between (259 - 289 dB/M) corresponds to S2 (>/= 33 % Fat) CAP value > 290dB/M corresponds to S3 (>/= 67 % Fat) stage 0 ( S0:< 10 % steatosis) stage 1 (>/= S1: 11%-33% steatosis) stage 2 (>/= S2: 34%-66% steatosis) stage 3 (>/= S3: > 66% steatosis) Reference Mcknight Y, Fidel Q, Mcknight T, Ladan J, Mcknight H, Clifton T. Controlled attenuation parameter for assessment of hepatic steatosis grades: a diagnostic meta-analysis. Int J Clin Exp Med. 2014Jun 25;8(10):75831-23.PMID: [id number]; PMCID: [id number]. Butch Mireles, Briana BEACH, Kandice M, Hany F, Aliza J, Alessandro O, Jason F, Gulshan M, Shad G, Jusitn A, Mikael E, Alphonso L, Chloé G, Tomasz A, Aliyah U, Andi S, Juliana, Rajan V, Dan V, Darshan M, Floyd NAIK. Refining the Baveno elastography criteria for the definition of compensated advanced chronic liver disease. J Hepatol. 2020;74(5):7272-4541. doi: 10.1016/j.jhep.2020.11.050. Epub 2019Aug 19. PMID: [id number]. Alley M, Colt B, Rony M, Leila M, Daniela S, Gloria D, Nicholas D, Darin Adam.AASLD practice guidance on the clinical assessment and management of nonalcoholic fatty liver disease. Hepatology. 2022;77(5):1797- 1835. doi:10.1097/[id number] documented in this encounterSelect [facility] [place] History of Present illness Narrative* Uriah Mueller APRN.SERVANDO - 03/11/2024 11:25 AM EDT DEPARTMENT OF GASTROENTEROLOGY - FOLLOW UP REASON FOR VISIT Alexandra Bella is a 68 year old female who is scheduled for follow up of abdominal pain. HISTORY OF PRESENT ILLNESS Alexandra Bella is a 68 year old female who presents today for follow up of abdominal pain. Pertinent Workup to Date: 04/2022 Carlito- MASH with bridging fibrosis on bx 2021. GERD, diarrhea s/p daljit. EGD/colon 10/2202: - The examined portion of the ileum was normal. - Mild diverticulosis in the sigmoid colon. There was evidence of diverticular spasm. Asya-diverticular erythema was seen. Petechia were visualized in association with the diverticular opening. There was no evidence of diverticular bleeding. - The examination was otherwise normal. - The distal rectum and anal verge are normal on retroflexion view. - Biopsies were taken with a cold forceps from the right colon and left colon for evaluation of microscopic colitis. - Z-line irregular, 35 cm from the incisors. Biopsied. - Normal esophagus. - Normal stomach. Biopsied. - Multiple gastric polyps. Resected and retrieved. - Normal examined duodenum. Biopsied. A. Small intestine, biopsy: - Duodenal mucosa with an intact villous architecture and intraepithelial lymphocytosis, see comment. B. Stomach, antrum, biopsy: - Reactive gastropathy with mild chronic inactive gastritis. - No intestinal metaplasia or morphologic evidence of Helicobacter pylori organisms. C. Stomach, polyp, biopsy: - Fundic gland polyp. D. Gastroesophageal junction, 35 cm, biopsy: - Squamous esophageal mucosa and mildly inflamed gastric cardiofundic-type mucosa with reactive epithelial changes; negative for intestinal metaplasia. E. Colon, right, biopsy: - Colonic mucosa with no significant pathologic change. F. Colon, left, biopsy: - Colonic mucosa with no significant pathologic change. CTAP w/ cont 02/2023: IMPRESSION: 1. No acute changes seen in the abdomen or pelvis. 2. Mild diverticulosis of the sigmoid colon without evidence of diverticulitis. 3. Status post cholecystectomy presumably. Bile ducts within normal limits. 4. Inferior vena caval filter again seen in place. 5. Multilevel degenerative changes in the degenerative changes in the hips. Spine. The spine was not specifically evaluated. 02/2023: AP 146, AST 111, ALT 147 11/2023: A1C 7.3 (was 6.4) Wt was 267 04/2022, now 283 Hx CHF, CRC, a fib with DVTs MARILIA, morbid obesity IBS Eliquis, 40mg omep, Carafate, Ultram, celebrex Symptoms: Abd pain and diarrhea since starting Trulicity a few months ago. Held the dose x 3 weeks. Hx diverticulitis. Daily diarrhea for the last 3 weeks. BRAT diet helping. She has about 3-4 loose stools daily. High fat foods bothersome. No bleeding. Dark green at times. No melena. Wt is stable. 2 weeks ago with a fever intermittently for a week. She never took her temp but had chills. Chills are now gone. Trulicity was tried 2 months ago. Only took it for 3 weeks. Had to stop given severe diarrhea and epigastric pain. Diarrhea has been reducing with time. Pain is getting a little better with time. Lower abdominal pain and into lower back at times. Trying to avoid Imodium. Initially had nausea, that is better now. 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 Presently with mild lower abdominal discomfort which is improving with time. Into her lower back aswell. Hx c diff, this doesn't seem the same given less odor. Low fat diet Still taking Celebrex daily Taking Tramadol about daily PAST MEDICAL HISTORY Diagnosis Date Acute deep vein thrombosis (DVT) of popliteal vein of left lower extremity (HCC) Four DVT's last one 20 years ago- control- and after fracture Asymptomatic postmenopausal status (age-related) (natural) 03/2000 LMP 03/2000 CHF (congestive heart failure) (HCC) Colon cancer (HCC) 2018 Colorectal cancer (HCC) Endocarditis 2017 Essential hypertension 08/24/2018 Gastroesophageal reflux disease without esophagitis 08/24/2018 GERD (gastroesophageal reflux disease) Irritable bowel syndrome Irritable bowel Syndrome Kidney stones 2004 Left-sided chest wall pain 07/17/2016 Multiple gastric ulcers 2020 MARILIA (obstructive sleep apnea) 08/24/2018 Other hyperlipidemia 08/24/2018 Paroxysmal atrial fibrillation (HCC) Personal history of malignant neoplasm of breast 1996 1996 Breast cancer, clinical stage 1 infiltrating carcinoma left breast Phlebitis and thrombophlebitis of other deep vessels of lower extremities Phlebitis Phlebitis and thrombophlebitis of other deep vessels of lower extremities history of 3 DVTs Left Leg PMH - PAST MEDICAL HISTORY OF 09/1991 pap abnormal cells derived from serve dysplasia PMH - PAST MEDICAL HISTORY OF 11/1991 pap moderate - severe dysplasia Postoperative hypothyroidism 08/24/2018 Pre-diabetes Rheumatoid arthritis (HCC) 08/24/2018 Shingles Thyroid disease PAST SURGICAL HISTORY Procedure Laterality Date CARDIAC CATH 2016 CHOLECYSTECTOMY 2000 COLONOSCOPY 11/08/2011 Dr. Esteban-Random Bx-unremarkable. Sigmoid Bx-focal hyperplastic changes. COLONOSCOPY 03/31/2015 Dr. Esteban-evidence of large scar in the perianal area secondary to resection of SCC 2011. Random Bx's-unremarkable. COLONOSCOPY 04/28/2020 Dr. Esteban-bilious gastric fluid. Bile gastritis. Antrum Bx-unremarkable, HP negative. GEJ Bx-mild inflammation. COLONOSCOPY DIAGNOSTIC 11/01/2022 COLPOSCOPY CERVIX UPPER/ADJACENT VAGINA 12/1991 Colposcopy CONIZATION CERVIX W/WO D&C RPR ELTRD EXC 01/1992 CONE BX, focal atypia EGD 03/31/2015 Dr. Esteban-HH. D2-unremarkable. Stomach body Bx-mild reactive gastropathy, HP negative. Stomach polyps-fundic gland. EGD 12/29/2017 Dr. Esteban-small HH. Multiple gastric polyps-. Non-bleeding erosive gastropathy. Bilious gastric fluid. EGD 2019 EGD DIAGNOSTIC 11/01/2022 FIBROSCAN 03/31/2020 S3, F4 LIG/TRNSXJ FLP TUBE ABDL/VAG APPR UNI/BI history of Tubal ligation LIVER BIOPSY 02/21/2002 hepatic steatosis, moderate and diffuse. Mild portal fibrosis with chronic non- specific inflammation no evidence of cirrhosis. MASTEC PARTIAL W AXILL NODE REMOV 06/1997 left - had radiation and chemo MRI BREAST BIOPSY 1996 excisional Breast BX, BREAST CANCER, clinical stage1 infiltrating carcinoma left breast PAST SURGICAL HISTORY OF 07/2008 had "fatty tumor" removed from back PAST SURGICAL HISTORY OF 01/02/2012 excision perianal lesion-invasive moderately differentiated squamous cell CA PAST SURGICAL HISTORY OF 08/29/2018 Excision of 5 x 6 cm posterior back mass, PAST SURGICAL HISTORY OF Left scope knee PAST SURGICAL HISTORY OF Partial thyroidectomy THYROIDECTOMY TOTAL/COMPLETE 1973 Allergies: Adhesive Tape Comment:rash Avelox [Moxifloxaci* Comment:Heart race Biaxin [Clarithromy* Hives, GI Upset Eryc [Erythromycin] Swelling Metformin GI Upset Comment:Throwing up, Diarrhea Penicillins Quinolones Comment:Avelox Remicade [Inflixima* Shortness of Breath Spironolactone Intolerance Comment:Headaches Sutures Other: See Comments Comment:Suture do not dissolve Demerol [Meperidine* Other: See Comments Comment:Arm swelled up locally and turned red. Current Outpatient Medications Medication Sig Dispense Refill glipiZIDE (GLUCOTROL) 5 mg tablet Take 0.5 tablets (2.5 mg) by mouth two times a day before meals. 30 tablet 5 exenatide microspheres (BYDUREON BCISE) 2 mg/0.85 mL injection Inject 2 mg subcutaneously one time a week. 3.4 mL 5 ONETOUCH ULTRASOFT LANCETS lancets Use as directed to check glucose once daily.E11.9 100 Each 3 ONETOUCH ULTRA TEST test strip Use as directed to check glucose once daily. E11.9 100 Each 3 Blood-Glucose Meter (ONETOUCH ULTRA2 METER) monitoring kit Use to test blood sugar daily, DX: E11.9, NIDDM 1 Each 0 Lancing Device (LANCING DEVICE WITH LANCETS) [facility] [place] Lancet device for one touch delica lancets; checkglucose once daily ; E11.9, NIDDM 1 Each 0 SYNTHROID 200 mcg tablet Take one tablet Monday through Monday,and half a pill on Saturdays and none on Sundays. 66 tablet 3 losartan (COZAAR) 25 mg tablet Take 0.5 tablets by mouth once daily. (Patient taking differently: Take 25 mg by mouth once daily.) 45 tablet 3 flecainide (TAMBOCOR) 100 mg tablet Take 1 tablet by mouth every 12 hours. 180 tablet 3 apixaban (ELIQUIS) 5 mg tab(s) Take 1 tablet by mouth twice daily. 180 tablet 3 furosemide (LASIX) 20 mg tablet Take 2 tablets by mouth every other day. CARAFATE 100 mg/mL suspension TAKE 10 ML FOUR TIMES A DAY 3600 mL 3 potassium chloride (K-TAB) 10 mEq tablet Take 1 tablet by mouth once daily. 90 tablet 3 traMADol (ULTRAM) 50 mg tablet Take 1 tablet by mouth as directed. albuterol HFA (PROVENTIL HFA, VENTOLIN HFA) 90 mcg/actuation inhaler as needed. golimumab (SIMPONI ARIA INTRAVENOUS) Inject intravenously every 8 weeks. 2mg/kg (242mg) pantoprazole DR (PROTONIX) 40 mg tablet Take 1 tablet by mouth once daily. 30 tablet 2 CPAP celecoxib (CELEBREX) 200 mg capsule Take 1 capsule by mouth once daily. acetaminophen(TYLENOL ARTHRITIS 650 MG TAB) Take 2 tablets daily. 0 metoprolol tartrate, short acting, (LOPRESSOR) 25 mg tablet 1 tablet with food Orally Twice a day for 30 day(s) omeprazole (PRILOSEC) 40 mg capsule TAKE 1 CAPSULE BY MOUTH ONCE DAILY 90 capsule 1 No current facility-administered medications for this visit. Social History Tobacco Use Smoking status: Former Packs/day: 1.00 Years: 15.00 Additional pack years: 0.00 Total pack years: 15.00 Types: Cigarettes Quit date: 09/11/1989 Years since quittin.5 Passive exposure: Never Smokeless tobacco: Never Vaping Use Vaping Use: Never used Substance Use Topics Alcohol use: No Comment: occasional, rare Drug use: Never Comment: a few times a year FAMILY HISTORY Problem Relation Age of Onset Breast Cancer Maternal Grandmother Breast Cancer Paternal Grandmother Cancer Paternal Grandfather bone cancer Prostate Cancer Paternal Grandfather Coronary Artery Disease Father Kidney Disease Father Diabetes Other mat grt grdf Liver Cancer Brother Hypertension Mother No Known Problems Daughter Diabetes Son Heart Brother Heart Brother Colon Cancer No Family History other (Blood Clot) No Family History REVIEW OF SYSTEMS Cardiovascular: No chest pain Respiratory: Negative for cough, wheezing and shortness of breath Gastrointestinal : See above Psychiatric: No problems PHYSICAL EXAMINATION BP 164/69 (BP Site: Right Arm) Pulse 78 Ht 160 cm (5' 3") Wt 128.4 kg (283 lb) LMP 03/11/1998 BMI 50.13 kg/m General Appearance: Well appearing, alert, in no acute distress, gait steady. Eyes: Pupils equal, no scleral icterus Lungs: breath sounds clear to auscultation bilaterally Heart: regular rate and rhythm Abdomen: not distended, normal bowel sounds, soft and depressible, no guarding or rebound, +RLQ andLLQ TP Neuro: alert, oriented x 3, pleasant and in no acute distress Psych: pleasant affect, calm Assessment IMPRESSION Ms. Bella is a 68 year old female who presents for follow up of LLAMAS with bridging fibrosis on bx 2021. She has chronic diarrhea likely from BAM s/p daljit which worsened a few months ago after trying Trulicity for 1 month. She reports some chills a few weeks ago with lower abdominal discomfort. Hxdiverticulitis and c diff in the past. PLAN -Fibroscan today -RUQ US -CBC, CMP, AFP, INR, c diff, cx, giardia -CTAP w/ contrast if pain worsens -Continue Carafate- need to space dosing from Eliquis and flecainide -F/u Dr. Esteban for liver Uriah Mueller APRN.SERVANDO 03/11/2024 11:25 AM documented in this encounter[facility] [place] Telephone encounter Note * Telephone Encounter - Alina Dempsey - 03/05/2024 11:24 AM EDT Patient has been scheduled on 03/11 with RN CARDIOVASCULAR ICU per below. [facility] Work Phone: 1(802) 239-734206-25-2024 Miscellaneous Notes* Telephone Encounter - Alina Dempsey - 03/05/2024 11:24 AM EDT Patient has been scheduled on 03/11 with RN CARDIOVASCULAR ICU per below. * Telephone Encounter - Hailey Ocampo RN - 03/04/2024 4:22 PM EDT Spoke with pt. She is c/o right side back pain and diarrhea. Symptoms started after she started Trulicity 2 months ago. She stopped taking it after 3 doses. She feels symptoms are a bit different thatn her diverticulitis. She wanted to schedule schedule an OV and was told Dr. Esteban had no appts until July. She is agreeable to see RN CARDIOVASCULAR ICU or PA. Schedulers, please call pt to schedule with She is aware and agreed to go to ER if she has severe pain, vomiting or fever. Thank you, Hailey Ocampo RN 11/01/2022 Colonoscopy: Impression: - The examined portion of the ileum was normal. - Mild diverticulosis in the sigmoid colon. There was evidence of diverticular spasm. Asya-diverticular erythema was seen. Petechia were visualized in association with the diverticular opening. There was no evidence of diverticular bleeding. - The examination was otherwise normal. - The distal rectum and anal verge are normal on retroflexion view. - Biopsies were taken with a cold forceps from the right colon and left colon for evaluation of microscopic colitis. Colon, right, biopsy: - Colonic mucosa with no significant pathologic change. Colon, left, biopsy: - Colonic mucosa with no significant pathologic change. Last OV 04/20/2022: ASSESSMENT/PLAN: 1. Fatty metamorphosis of liver - ICD9: 571.8, ICD10: K76.0 (primary diagnosis) I emphasized again the importance of weight reduction and daily exercise. She will continue to Do her best to lose at least 15 pounds in the next 3 to 4 months. Will check LFT's as they were abnormal in December 2021. - COMP METABOLIC PANEL - CBC + DIFF 2. Liver fibrosis - ICD9: 571.5, ICD10: K74.00 She had bridging fibrosis in the liver biopsy done September 2021. I am concerned about progression to liver cirrhosis. There is an order in [employer] for RU US and I advised her to schedule it. - ALPHA FETOPROTEIN BL 3. Elevated liver enzymes - ICD9: 790.5, ICD10: R74.8 4. Gastroesophageal reflux disease without esophagitis - ICD9: 530.81, ICD10: K21.9 - Discussed lifestyle modifications including head of bed elevation - Continue treatment with pantoprazole 40 mg daily 5. Diarrhea, unspecified type - ICD9: 787.91, ICD10: R19.7 She has a chronic diarrhea and this is probably related to IBS. However we will check C-reactive protein, calprotectin and pancreatic fecal elastase to rule out EPI or colitis. - C-REACTIVE PROTEIN (CRP) - CALPROTECTIN,FECAL - PANC ELASTASE, FECAL 6. Hx of cholecystectomy - ICD9: V45.79, ICD10: Z90.49 7. Class 3 severe obesity with serious comorbidity and body mass index (BMI) of 45.0 to 49.9 in adult, unspecified obesity type (HCC) - ICD9: 278.01, V85.42, ICD10: E66.01, Z68.42 Weight 267 pounds. BMI 47.3. Follow-up with me in 3 months. * Telephone Encounter - Alina Dempsey - 03/04/2024 12:58 PM EDT Patient calling states she is having a diverticulitis flare. Please call patient to discuss at [phone]. documented in this encounter[facility] Telephone encounter Note * Telephone Encounter - Hailey Ocampo RN - 03/04/2024 4:22 PM EDT Spoke with pt. She is c/o right side back pain and diarrhea. Symptoms started after she started Trulicity 2 months ago. She stopped taking it after 3 doses. She feels symptoms are a bit different thatn her diverticulitis. She wanted to schedule schedule an OV and was told Dr. Esteban had no appts until July. She is agreeable to see RN CARDIOVASCULAR ICU or PA. Schedulers, please call pt to schedule with She is aware and agreed to go to ER if she has severe pain, vomiting or fever. Thank you, Hailey Ocampo RN 11/01/2022 Colonoscopy: Impression: - The examined portion of the ileum was normal. - Mild diverticulosis in the sigmoid colon. There was evidence of diverticular spasm. Asya-diverticular erythema was seen. Petechia were visualized in association with the diverticular opening. There was no evidence of diverticular bleeding. - The examination was otherwise normal. - The distal rectum and anal verge are normal on retroflexion view. - Biopsies were taken with a cold forceps from the right colon and left colon for evaluation of microscopic colitis. Colon, right, biopsy: - Colonic mucosa with no significant pathologic change. Colon, left, biopsy: - Colonic mucosa with no significant pathologic change. Last OV 04/20/2022: ASSESSMENT/PLAN: 1. Fatty metamorphosis of liver - ICD9: 571.8, ICD10: K76.0 (primary diagnosis) I emphasized again the importance of weight reduction and daily exercise. She will continue to Do her best to lose at least 15 pounds in the next 3 to 4 months. Will check LFT's as they were abnormal in December 2021. - COMP METABOLIC PANEL - CBC + DIFF 2. Liver fibrosis - ICD9: 571.5, ICD10: K74.00 She had bridging fibrosis in the liver biopsy done September 2021. I am concerned about progression to liver cirrhosis. There is an order in [facility] for RUQ US and I advised her to schedule it. - ALPHA FETOPROTEIN BL 3. Elevated liver enzymes - ICD9: 790.5, ICD10: R74.8 4. Gastroesophageal reflux disease without esophagitis - ICD9: 530.81, ICD10: K21.9 - Discussed lifestyle modifications including head of bed elevation - Continue treatment with pantoprazole 40 mg daily 5. Diarrhea, unspecified type - ICD9: 787.91, ICD10: R19.7 She has a chronic diarrhea and this is probably related to IBS. However we will check C-reactive protein, calprotectin and pancreatic fecal elastase to rule out EPI or colitis. - C-REACTIVE PROTEIN (CRP) - CALPROTECTIN,FECAL - PANC ELASTASE, FECAL 6. Hx of cholecystectomy - ICD9: V45.79, ICD10: Z90.49 7. Class 3 severe obesity with serious comorbidity and body mass index (BMI) of 45.0 to 49.9 in adult, unspecified obesity type (HCC) - ICD9: 278.01, V85.42, ICD10: E66.01, Z68.42 Weight 267 pounds. BMI 47.3. Follow-up with me in 3 months. [facility] Work Phone: 1(430) 144-258606-24-2024 Telephone encounter Note* Telephone Encounter - Alina Dempsey - 03/04/2024 12:58 PM EDT Patient calling states she is having a diverticulitis flare. Please call patient to discuss at [phone]. [facility]04-17-[facility]24 Miscellaneous Notes* Telephone Encounter - Marissa Tim RN - 12/27/2023 8:23 AM EDT DAJUAN: 12/15/23 Please advise. documented in this encounterSelect [facility] [place]04-09-2024 Miscellaneous Notes* Telephone Encounter - Eliceo Ambriz APRN.CNP - 12/19/2023 9:50 AM EDT Noted. MC message sent to patient. [place] yo * Telephone Encounter - Marissa Tim RN - 12/18/2023 9:06 AM EDT Received notification from [facility] that patient was DENIED. Member # [id number] REASON: The information received from your prescriber did not provide documentation to confirm that at least TWO drugs available on the formulary to treat the same diagnosis or condition have been tried and,according to the prescriber, you experienced inadequate efficacy or significant tolerance: or that the formulary drugs would be less effective or likely to cause an allergy, adverse event, or harm tothe patient. Your prescriber, indicated you tried TRULICITY, but need to try one more drug. Examples of other drug(s) on your Plan's formulary include BYDUREON BCISE and BYETTA (Note: Prior Authorization may be required). The requested is not on your Plan's formulary, which is their list of covereddrugs. Please review and advise. * Telephone Encounter - Marissa Tim RN - 12/15/2023 3:12 PM EDT ALEXANDRA BELLA (Alvarez: [id number]) Rx #: [id number] Ozempic (0.25 or 0.5 MG/DOSE) 2MG/3ML pen-injectors Form [employer] Electronic PA Form (2017 [facility]) Created 29 minutes ago Sent to Plan 15 minutes ago Plan Response 14 minutes ago Submit Clinical Questions 2 minutes ago Determination Wait for Determination Please wait for [employer] 2016 to return a determination. Faxed last office notes to [employer] at [phone] Transmission Okx2 Will await approval/denial documented in this encounterSelect [facility] [place]04-05-2024 History of Present illness Narrative* Eliceo Ambriz APRN.SALES AND MARKETING ASSISTANT - 12/15/2023 1:00 PM EDT Reason for Consultation: DM Type 2 Referring Physician: Leonora Davalos (Yeyo) [address] [facility] [address] [facility] [address] HISTORY OF PRESENT ILLNESS Ms. Bella is a 68 year old female presenting here today for a follow up of DM Type 2. As I recall,she was initially diagnosed with diabetes about age 65. Patient of Dr. Decker LV 11/28/23 A1C 7.3 on 11/15/23. History of diabetes type 2, peripheral neuropathy, HLD, hypothyroidism, DVT s/p IVC filter, CHF, Afib, colon cancer, endocarditis, HTN, GERD, IBS, nephrolithiasis, gastric ulcers, breast cancer, phlebitis, Rheumatoid, arthritis shingles, MARILIA, CAD, liver disease Concerned about weight. States she needs to have knee surgery. Not interested in bariatric surgery. Denies hx of pancreatitis, medullary TC We started trulicity and stopped glipizide at her visit in November. She contacted us on 12/[address] Decker advised to stop trulicity and resume glipizide however she had already taken the next injection of trulicity and was not sure if she should resume glipizide now or wait. Dr. Decker advised if her BG was below 160 she can wait a week to start it. She called back this AM advised she is having dull and sharp abdominal pains for which she doubled up on carafate with some decrease in pain. She schedule and appointment for this afternoon to discuss further. She has lost 4 lb in about a month with trulicity and wants to keep taking if possible. She is reluctant to use glipizide as she had episodes of hypoglycemia while taking 5 mg XL Current diabetes regimen is as follows: Glipizide XL 5 mg daily --has not yet resumed. Previous DM medications: Metformin--vomiting--states she was put on high dose without titratioin; unsure if it was ER form. Trulicity 0.75 mg ---diarrhea, abdominal pain she is checking her blood glucose 2-3 times daily. she does bring a log book today for review. LDE Blood Sugar Frequency: [id number], 168, 141, 128, 140, 125, 108 acL 187, 121, 150, 133 acS 105, 255, 258 Hypoglycemia frequency: denies Hypoglycemia awareness: Yes Regarding symptoms of hypoglycemia, she is not experiencing any symptoms such as polyuria, polydipsia, nocturia or rapid weight loss or blurry vision, Overall, the patient has no acute complaints at this time. Hypothyroidism: Postoperative Taking Synthroid (AIDA) 200 mcg daily Monday through Monday, 1/2 pill on Monday and none on Sundays (avg 157 mcg daily) Tried generic levothyroxine and was not controlled Labs from 05/03/24: TSH 2.80; free T4 1.5 PAST MEDICAL HISTORY Diagnosis Date Acute deep vein thrombosis (DVT) of popliteal vein of left lower extremity (HCC) Four DVT's last one 20 years ago- control- and after fracture Asymptomatic postmenopausal status (age-related) (natural) 03/2000 LMP 03/2000 CHF (congestive heart failure) (HCC) Colon cancer (HCC) 2018 Colorectal cancer (HCC) Endocarditis 2017 Essential hypertension 08/24/2018 Gastroesophageal reflux disease without esophagitis 08/24/2018 GERD (gastroesophageal reflux disease) Irritable bowel syndrome Irritable bowel Syndrome Kidney stones 2004 Left-sided chest wall pain 07/17/2016 Multiple gastric ulcers 2020 MARILIA (obstructive sleep apnea) 08/24/2018 Other hyperlipidemia 08/24/2018 Paroxysmal atrial fibrillation (HCC) Personal history of malignant neoplasm of breast 1996 1996 Breast cancer, clinical stage 1 infiltrating carcinoma left breast Phlebitis and thrombophlebitis of other deep vessels of lower extremities Phlebitis Phlebitis and thrombophlebitis of other deep vessels of lower extremities history of 3 DVTs Left Leg PMH - PAST MEDICAL HISTORY OF 09/1991 pap abnormal cells derived from serve dysplasia PMH - PAST MEDICAL HISTORY OF 11/1991 pap moderate - severe dysplasia Postoperative hypothyroidism 08/24/2018 Pre-diabetes Rheumatoid arthritis (HCC) 08/24/2018 Shingles Thyroid disease PAST SURGICAL HISTORY Procedure Laterality Date CARDIAC CATH 2016 CHOLECYSTECTOMY 2000 COLONOSCOPY 11/08/2011 Dr. Esteban-Random Bx-unremarkable. Sigmoid Bx-focal hyperplastic changes. COLONOSCOPY 03/31/2015 Dr. Esteban-evidence of large scar in the perianal area secondary to resection of SCC 2011. Random Bx's-unremarkable. COLONOSCOPY 04/28/2020 Dr. Esteban-bilious gastric fluid. Bile gastritis. Antrum Bx-unremarkable, HP negative. GEJ Bx-mild inflammation. COLPOSCOPY CERVIX UPPER/ADJACENT VAGINA 12/1991 Colposcopy CONIZATION CERVIX W/WO D&C RPR ELTRD EXC 01/1992 CONE BX, focal atypia EGD 03/31/2015 Dr. Esteban-HH. D2-unremarkable. Stomach body Bx-mild reactive gastropathy, HP negative. Stomach polyps-fundic gland. EGD 12/29/2017 Dr. Esteban-small HH. Multiple gastric polyps-. Non-bleeding erosive gastropathy. Bilious gastric fluid. EGD 2019 FIBROSCAN 03/31/2020 S3, F4 LIG/TRNSXJ FLP TUBE ABDL/VAG APPR UNI/BI history of Tubal ligation LIVER BIOPSY 02/21/2002 hepatic steatosis, moderate and diffuse. Mild portal fibrosis with chronic non- specific inflammation no evidence of cirrhosis. MASTEC PARTIAL W AXILL NODE REMOV 06/1997 left - had radiation and chemo MRI BREAST BIOPSY 1996 excisional Breast BX, BREAST CANCER, clinical stage1 infiltrating carcinoma left breast PAST SURGICAL HISTORY OF 07/2008 had "fatty tumor" removed from back PAST SURGICAL HISTORY OF 01/02/2012 excision perianal lesion-invasive moderately differentiated squamous cell CA PAST SURGICAL HISTORY OF 08/29/2018 Excision of 5 x 6 cm posterior back mass, PAST SURGICAL HISTORY OF Left scope knee PAST SURGICAL HISTORY OF Partial thyroidectomy THYROIDECTOMY TOTAL/COMPLETE 1973 FAMILY HISTORY Problem Relation Age of Onset Breast Cancer Maternal Grandmother Breast Cancer Paternal Grandmother Cancer Paternal Grandfather bone cancer Prostate Cancer Paternal Grandfather Coronary Artery Disease Father Kidney Disease Father Diabetes Other mat grt grdf Liver Cancer Brother Hypertension Mother No Known Problems Daughter Diabetes Son Heart Brother Heart Brother Colon Cancer No Family History other (Blood Clot) No Family History Social History Tobacco Use Smoking status: Former Packs/day: 1.00 Years: 15.00 Additional pack years: 0.00 Total pack years: 15.00 Types: Cigarettes Quit date: 09/11/1989 Years since quittin.2 Passive exposure: Never Smokeless tobacco: Never Vaping Use Vaping Use: Never used Substance Use Topics Alcohol use: No Comment: occasional, rare Drug use: Never Comment: a few times a year Allergies As of Date: 12/15/2023 Allergen Noted Reaction ADHESIVE TAPE 01/07/2002 AVELOX [MOXIFLOXACIN HCL] 02/16/2009 BIAXIN [CLARITHROMYCIN] 02/17/2009 Hives and GI Upset ERYC [ERYTHROMYCIN] 02/16/2009 Swelling METFORMIN 05/25/2022 GI Upset PENICILLINS 07/07/2003 QUINOLONES 07/12/2004 REMICADE [INFLIXIMAB] 10/21/2020 Shortness of Breath SPIRONOLACTONE 05/14/2020 Intolerance SUTURES 11/28/2023 Other: See Comments DEMEROL [MEPERIDINE (PF)] 03/14/2012 Other: See Comments Fully Assessed 12/15/2023 Current Outpatient Medications Medication Sig Dispense Refill ONETOUCH ULTRASOFT LANCETS lancets Use as directed to check glucose once daily.E11.9 100 Each 3 ONETOUCH ULTRA TEST test strip Use as directed to check glucose once daily. E11.9 100 Each 3 Blood-Glucose Meter (ONETOUCH ULTRA2 METER) monitoring kit Use to test blood sugar daily, DX: E11.9, NIDDM 1 Each 0 Lancing Device (LANCING DEVICE WITH LANCETS) [facility] Lancet device for one touch delica lancets; checkglucose once daily ; E11.9, NIDDM 1 Each 0 SYNTHROID 200 mcg tablet Take one tablet Monday through Monday,and half a pill on Saturdays and none on Sundays. 66 tablet 3 omeprazole (PRILOSEC) 40 mg capsule TAKE 1 CAPSULE BY MOUTH ONCE DAILY 90 capsule 1 losartan (COZAAR) 25 mg tablet Take 0.5 tablets by mouth once daily. (Patient taking differently: Take 25 mg by mouth once daily.) 45 tablet 3 flecainide (TAMBOCOR) 100 mg tablet Take 1 tablet by mouth every 12 hours. 180 tablet 3 apixaban (ELIQUIS) 5 mg tab(s) Take 1 tablet by mouth twice daily. 180 tablet 3 furosemide (LASIX) 20 mg tablet Take 2 tablets by mouth every other day. CARAFATE 100 mg/mL suspension TAKE 10 ML FOUR TIMES A DAY 3600 mL 3 potassium chloride (K-TAB) 10 mEq tablet Take 1 tablet by mouth once daily. 90 tablet 3 traMADol (ULTRAM) 50 mg tablet Take 1 tablet by mouth as directed. albuterol HFA (PROVENTIL HFA, VENTOLIN HFA) 90 mcg/actuation inhaler as needed. golimumab (SIMPONI ARIA INTRAVENOUS) Inject intravenously every 8 weeks. 2mg/kg (242mg) pantoprazole DR (PROTONIX) 40 mg tablet Take 1 tablet by mouth once daily. 30 tablet 2 CPAP celecoxib (CELEBREX) 200 mg capsule Take 1 capsule by mouth once daily. acetaminophen(TYLENOL ARTHRITIS 650 MG TAB) Take 2 tablets daily. 0 glipiZIDE (GLUCOTROL XL) 5 mg 24 hr tablet Take 1 tablet by mouth once daily. (Patient not taking: Reported on 12/15/2023) 90 tablet 1 omeprazole (PRILOSEC) 40 mg capsule Take 1 capsule by mouth once daily. 90 capsule 1 No current facility-administered medications for this visit. REVIEW OF SYSTEMS Review of Systems Respiratory: Negative for difficulty breathing. Cardiovascular: Negative for chest pain. Gastrointestinal: Positive for heartburn, nausea, abdominal pain and diarrhea. Negative for vomiting and constipation. PHYSICAL EXAMINATION BP 117/79 Pulse 85 Wt 129 kg (284 lb 6.3 oz) SpO2 100% BMI 50.39 kg/m2 Physical Exam Constitutional: Appearance: Normal appearance. She is obese. Cardiovascular: Rate and Rhythm: Normal rate and regular rhythm. Pulmonary: Effort: Pulmonary effort is normal. Breath sounds: Normal breath sounds. Skin: General: Skin is warm and dry. Neurological: Mental Status: She is alert and oriented to person, place, and time. Psychiatric: Mood and Affect: Mood normal. Behavior: Behavior normal. DATA Creatinine Date Value Ref Range Status 02/22/2023 0.74 0.58 - 0.96 mg/dL Final Hemoglobin A1C (%) Date Value 11/15/2023 7.3 03/12/2020 6.4 Hemoglobin A1C (POCT) (%) Date Value 05/03/2023 8.6 ) No components found for: "URINEALBUMIN" Cholesterol, Total (mg/dL) Date Value 05/03/2023 223 04/14/2020 134 04/14/2020 134 HDL Cholesterol (mg/dL) Date Value 05/03/2023 50 04/14/2020 48 04/14/2020 48 LDL Cholesterol (mg/dL) Date Value 05/03/2023 141 LDL (mg/dL) Date Value 06/07/2014 144 LDL Calculated (mg/dL) Date Value 04/14/2020 67 04/14/2020 67 Triglyceride (mg/dL) Date Value 05/03/2023 162 04/14/2020 97 04/14/2020 97 IMPRESSION: Ms. Bella is a 68 year old female here for evaluation of DM Type 2 complicated by hypertension, hyperlipidemia, peripheral neuropathy, hypothyroidism, CAD obesity RECOMMENDATIONS: (E11.42) Type 2 diabetes mellitus with diabetic polyneuropathy, without long- term current use of insulin (HCC) (primary encounter diagnosis) Comment: Glycemic control has been better with trulicity but she is not tolerating it. Have her rest the stomach for 1-2 wks then try Ozempic. If glipizide is needed consider 5 mg 1/2 tab BID. Vs 5 mg xl. Neuropathy is monitored. Foot exam with follow up Plan: semaglutide (OZEMPIC) 0.25 mg or 0.5 mg (2 mg/3 mL) pen Stay off trulicity After 1-2 wks start Ozempic 0.25 mg weekly x wk then increase to 0.5 mg weekly Follow up in January as planned. (E89.0) Postoperative hypothyroidism Comment: She is euthyroid on the present dose of Synthroid. Generic levothyroxine was ineffective Plan: continue Synthroid (E66.01, Z68.43) Class 3 severe obesity with serious comorbidity and body mass index (BMI) of 50.0 to 59.9 in adult, unspecified obesity type (HCC) Comment/Plan: Body mass index is 50.39 kg/m . She is not a candidate for phentermine/Qsymia due to hx of heart disease and nephrolithiasis. May consider contrave though it is not covered by insurance. GLP1 is recommended which we added for her diabetes but will likely help with weight as well. Recommend she see geological manager. She declined exercise physiology visit. She is not interested in bariatric surgery (E78.00) Pure hypercholesterolemia Comment/Plan: per PCP/cardiology; not currently on a statin (I10) Essential hypertension Comment/Plan: per PCP/cardiology; she is on an ARB (I25.10) Coronary artery disease involving [place] coronary artery of [place] heart without angina pectoris Comment/Plan: per cardiology Medical Decision Making: Level: 4 - Moderate Eliceo Ambriz, MSN, [employer], RN CARDIOVASCULAR ICU-C, CDE Endocrinology [facility] Medical Office [facility]/[address], [address] [place], [place] [address] Fax: documented in this encounterSelect [facility]04-04-2024 Miscellaneous Notes* Telephone Encounter - Vaughn Decker MD - 12/14/2023 5:02 PM EDT If her blood sugars are mostly below 160, can wait until next week to restart the glipizide. Otherwise, can start now once the diarrhea goes away. Thank you HH * Telephone Encounter - Corrie Alejandro RN - 12/14/2023 12:25 PM EDT Patient left a detailed VM on the nurses line that she took the weekly dose of Trulicity yesterday despite the side effects she was having. Should she still start the Glipizide now or wait until Trulicity is out of her system? * Telephone Encounter - Nesha Pruitt - 12/14/2023 10:43 AM EDT Called and informed patient, also wanted to speak to the nurses, so she was transferred * Telephone Encounter - Vaughn Decker MD - 12/14/2023 10:32 AM EDT Stop the Trulicity. Restart glipizide XL 5 mg once a day in the morning I sent a new prescription for the glipizide Thank you HH * Telephone Encounter - Nesha Pruitt - 12/13/2023 3:52 PM EDT Patient called and said that the Trulicity medication was giving her some side effects, such as diarrhea. And was wanting if someone could call her. documented in this encounterSelect [facility]03-06-2024 History of Present illness Narrative* Ginger Gray RT(R) - 11/15/2023 4:00 PM EST Radiology Service Progress Note PATIENT NAME: Alexandra Bella DATE OF SERVICE: November 15, 2023 TIME: 3:48 PM PATIENT IDENTITY VERIFICATION COMPLETED USING TWO (2) IDENTIFIERS: Name and Date of confirmedby patient verbally. FALL SCREENING: Has the patient had 2 falls in the last year or 1 fall with injury or currently using an Ambulatory Assistive Device (Walker, Cane, Wheelchair, Crutches, etc.)? No PATIENT GENDER DATA: Female. status: : No status: N/A PATIENT RELEVANT IMPLANT DATA REVIEWED: Not Applicable PATIENT PRESENTS WITH AN IMPLANTABLE OR ATTACHED THIRD HELPER: No RADIOLOGY DEPARTMENT: Bone Density PERIPHERAL IV DATA: Not applicable SIGNED BY: RT Jhoan(R) November 15, 2023 3:48 PM documented in this encounterSelect [facility]02-29-2024 Miscellaneous Notes* Telephone Encounter - Marissa Tim RN - 11/09/2023 2:32 PM EST Called and left a message letting patient know that order was placed. Closed * Telephone Encounter - Vaughn Decker MD - 11/09/2023 12:43 PM EST Order placed Thanks * Telephone Encounter - Marissa Tim RN - 11/07/2023 11:47 AM EST Please advise. NOV: 12/04/23--VV * Telephone Encounter - Corrie Hall - 11/07/2023 11:26 AM EST Patient is concerned about her A1C and is requesting an order to be placed before he up coming ENDOappointment. Please call the patient to advise at [phone]. documented in this encounterSelect [facility]10-05-2023 Miscellaneous Notes* Telephone Encounter - Neema Berman Ma - 06/15/2023 2:55 PM EDT Patient phones requesting refills as follows: Requested Prescriptions Pending Prescriptions Disp Refills ONETOUCH ULTRASOFT LANCETS lancets 100 Each 3 Sig: Use as directed to check glucose once daily.E11.9 ONETOUCH ULTRA TEST test strip 100 Each 3 Sig: Use as directed to check glucose once daily. E11.9 Please review and advise. Neema Berman Ma * Telephone Encounter - Lisa Wilcox - 06/15/2023 2:18 PM EDT Patient phones requesting refills as follows: Test strips and lancets for one touch ultra2 Requested Prescriptions No prescriptions requested or ordered in this encounter Please review and advise. Lisa Wilcox documented in this encounterSelect [facility] [place] Miscellaneous Notes* Telephone Encounter - Martha Lopes MA - 06/09/2023 1:43 PM EDT Spoke with Alexandra Bella on June 09, 2023. Informed of results / instructions as stated above. Martha Lopes MA * Telephone Encounter - Eliceo Ambriz APRN.SERVANDO - 06/09/2023 12:30 PM EDT Message below references lancet device and meter. Unclear exactly what is needed so rx sent for meter and lancet device. Please notify patient per her request. Thank you * Telephone Encounter - Marissa Tim RN - 06/09/2023 11:11 AM EDT Please send for Dr. Decker * Telephone Encounter - Phuong Lara - 06/09/2023 10:58 AM EDT Patient called with the following concern(s): Patient states her ONETOUCH DELICA PLUS LANC DEV meter is broken. She reached out to her pharmacy for a replacement, but they are requiring a new RX to replace meter. Patient requesting a call to notify her when RX is sent to pharmacy. Please advise, Phuong Lara documented in this encounterSelect [facility] [place]08-23-2023 Instructions* Patient Instructions* Vaughn Decker MD - 05/03/2023 9:42 AM EDT - Take glipizide XL 5 mg once a day - Check your blood sugars 1-2 times a day - continue synthroid - blood tests fasting at your convenience documented in this encounterSelect [facility] [place]08-23-2023 Procedure note* Karma Mcdermott MA - 05/03/2023 9:39 AM EDTProcedure(s): EXTERNAL MEDICAL OFFICE SCHEDULER, CGM SYS Images from the original note were not included. documented in this encounterSelect [facility] [place]08-23-2023 History of Present illness Narrative* Vaughn Decker MD - 05/03/2023 9:00 AM EDT ENDOCRINOLOGY CLINIC NOTE Ms. Bella is a 67 year old female with prediabetes, hypothyroidism, fatty liver disease, HTN, A. fib, CHF, MARILIA, DVT, h/o colon cancer presented for follow-up of T2DM HPI She had prediabetes but her A1c is elevated today. She was prescribed metformin XR but could not tolerate it due to vomiting. We prescribed Trulicity but cost was an issue. We started her on glipizide in 05/2022. She has been having nausea and diarrhea and was found to diverticulitis. We discussed holding the glipizide giventhe suboptimal oral intake. She has not been taking glipizide since then. She received Solumedrol IV on 05/02/2023 A1c: A1c was 7.3 in 07/2022 A1c is 8.6% 07/06/19 15:58 03/12/20 13:26 05/25/22 15:52 Hemoglobin A1C 6.5 (H) 6.4 (H) Hemoglobin A1C (POCT) 8.9 ! Current regimen: None Home glucose monitoring: She has been checking every 2 days and the range is mid to high 100s Hypoglycemia: None Diet: She eats 3 meals Physical activity: In the context of daily activities. Complications: Retinopathy: she had an eye exam, including testing for macular degeneration and was told it is ok Nephropathy GFR 89 in 02/2023 Neuropathy: she reported paresthesias in her feet CVS: lipid profile: 05/2022: Cholesterol 176, LDL 92, HDL 56, TG 138 on atorvastatin 20 mg (stopped by cardiology due to nightmares) BP: 128/85 Hypothyroidism: She takes Synthroid 200 mcg 1 pill M-, half a pill on Saturdays and none on Sundays. TFTs in 05/2022 showed TSH 1.7 and FT4 1.7 PAST MEDICAL HISTORY Diagnosis Date Acute deep vein thrombosis (DVT) of popliteal vein of left lower extremity (HCC) Four DVT's last one 20 years ago- control- and after fracture Asymptomatic postmenopausal status (age-related) (natural) 03/2000 LMP 03/2000 CHF (congestive heart failure) (HCC) Colon cancer (HCC) 2018 Colorectal cancer (HCC) Endocarditis 2017 Essential hypertension 08/24/2018 Gastroesophageal reflux disease without esophagitis 08/24/2018 GERD (gastroesophageal reflux disease) Irritable bowel syndrome Irritable bowel Syndrome Kidney stones 2004 Left-sided chest wall pain 07/17/2016 Multiple gastric ulcers 2020 MARILIA (obstructive sleep apnea) 08/24/2018 Other hyperlipidemia 08/24/2018 Paroxysmal atrial fibrillation (HCC) Personal history of malignant neoplasm of breast 1996 1996 Breast cancer, clinical stage 1 infiltrating carcinoma left breast Phlebitis and thrombophlebitis of other deep vessels of lower extremities Phlebitis Phlebitis and thrombophlebitis of other deep vessels of lower extremities history of 3 DVTs Left Leg PMH - PAST MEDICAL HISTORY OF 09/1991 pap abnormal cells derived from serve dysplasia PMH - PAST MEDICAL HISTORY OF 11/1991 pap moderate - severe dysplasia Postoperative hypothyroidism 08/24/2018 Pre-diabetes Rheumatoid arthritis (HCC) 08/24/2018 Shingles Thyroid disease PAST SURGICAL HISTORY Procedure Laterality Date CARDIAC CATH 2016 CHOLECYSTECTOMY 2000 COLONOSCOPY 11/08/2011 Dr. Esteban-Random Bx-unremarkable. Sigmoid Bx-focal hyperplastic changes. COLONOSCOPY 03/31/2015 Dr. Esteban-evidence of large scar in the perianal area secondary to resection of SCC 2011. Random Bx's-unremarkable. COLONOSCOPY 04/28/2020 Dr. Esteban-bilious gastric fluid. Bile gastritis. Antrum Bx-unremarkable, HP negative. GEJ Bx-mild inflammation. COLPOSCOPY CERVIX UPPER/ADJACENT VAGINA 12/1991 Colposcopy CONIZATION CERVIX W/WO D&C RPR ELTRD EXC 01/1992 CONE BX, focal atypia EGD 03/31/2015 Dr. Esteban-HH. D2-unremarkable. Stomach body Bx-mild reactive gastropathy, HP negative. Stomach polyps-fundic gland. EGD 12/29/2017 Dr. Esteban-small HH. Multiple gastric polyps-. Non-bleeding erosive gastropathy. Bilious gastric fluid. EGD 2019 FIBROSCAN 03/31/2020 S3, F4 LIG/TRNSXJ FLP TUBE ABDL/VAG APPR UNI/BI history of Tubal ligation LIVER BIOPSY 02/21/2002 hepatic steatosis, moderate and diffuse. Mild portal fibrosis with chronic non- specific inflammation no evidence of cirrhosis. MASTEC PARTIAL W AXILL NODE REMOV 06/1997 left - had radiation and chemo MRI BREAST BIOPSY 1996 excisional Breast BX, BREAST CANCER, clinical stage1 infiltrating carcinoma left breast PAST SURGICAL HISTORY OF 07/2008 had "fatty tumor" removed from back PAST SURGICAL HISTORY OF 01/02/2012 excision perianal lesion-invasive moderately differentiated squamous cell CA PAST SURGICAL HISTORY OF 08/29/2018 Excision of 5 x 6 cm posterior back mass, PAST SURGICAL HISTORY OF Left scope knee PAST SURGICAL HISTORY OF Partial thyroidectomy THYROIDECTOMY TOTAL/COMPLETE 1973 FAMILY HISTORY Problem Relation Age of Onset Breast Cancer Maternal Grandmother Breast Cancer Paternal Grandmother Cancer Paternal Grandfather bone cancer Prostate Cancer Paternal Grandfather Coronary Artery Disease Father Kidney Disease Father Diabetes Other mat grt grdf Liver Cancer Brother Hypertension Mother No Known Problems Daughter Diabetes Son Heart Brother Heart Brother Colon Cancer No Family History other (Blood Clot) No Family History Social History Tobacco Use Smoking status: Former Packs/day: 1.00 Years: 15.00 Additional pack years: 0.00 Total pack years: 15.00 Types: Cigarettes Quit date: 09/11/1989 Years since quittin.6 Smokeless tobacco: Never Vaping Use Vaping Use: Never used Substance Use Topics Alcohol use: No Alcohol/week: 1.7 standard drinks of alcohol Comment: occasional, rare Drug use: Never Comment: a few times a year (Not in a hospital admission) Allergies As of Date: 05/03/2023 Allergen Noted Reaction ADHESIVE TAPE 01/07/2002 AVELOX [MOXIFLOXACIN HCL] 02/16/2009 BIAXIN [CLARITHROMYCIN] 02/17/2009 Hives and GI Upset ERYC [ERYTHROMYCIN] 02/16/2009 Swelling METFORMIN 05/25/2022 GI Upset PENICILLINS 07/07/2003 QUINOLONES 07/12/2004 REMICADE [INFLIXIMAB] 10/21/2020 Shortness of Breath SOME SORT OF DISSOLVING SUTURE [O*12/27/2004 SPIRONOLACTONE 05/14/2020 Intolerance DEMEROL [MEPERIDINE (PF)] 03/14/2012 Other: See Comments Fully Assessed 02/22/2023 Current Outpatient Medications Medication Sig Dispense Refill omeprazole (PRILOSEC) 40 mg capsule TAKE 1 CAPSULE BY MOUTH ONCE DAILY 90 capsule 1 omeprazole (PRILOSEC) 40 mg capsule Take 1 capsule by mouth once daily. 90 capsule 1 SYNTHROID 200 mcg tablet Take one tablet Monday through Monday,and half a pill on Saturdays and none on Sundays. 66 tablet 3 glipiZIDE (GLUCOTROL XL) 5 mg 24 hr tablet Take 1 tablet by mouth once daily. 30 tablet 3 Insulin [place], Disposable, (BD ULTRA-FINE QUINTON PEN NEEDLE) 32 gauge x 5/32" To use with victoza pen 50 Each 2 atorvastatin (LIPITOR) 20 mg tablet Take 1 tablet by mouth once daily. (Patient not taking: Reported on 09/06/2022) 30 tablet 11 losartan (COZAAR) 25 mg tablet Take 0.5 tablets by mouth once daily. 45 tablet 3 flecainide (TAMBOCOR) 100 mg tablet Take 1 tablet by mouth every 12 hours. 180 tablet 3 apixaban (ELIQUIS) 5 mg tab(s) Take 1 tablet by mouth twice daily. 180 tablet 3 furosemide (LASIX) 20 mg tablet Take 2 tablets by mouth every other day. metoprolol tartrate, short acting, (LOPRESSOR) 25 mg tablet Take 0.5 tablets by mouth once daily. CARAFATE 100 mg/mL suspension TAKE 10 ML FOUR TIMES A DAY 3600 mL 3 potassium chloride (K-TAB) 10 mEq tablet Take 1 tablet by mouth once daily. 90 tablet 3 polyethylene glycol 3350 (MIRALAX) 17 gram/dose powder Take 17 g by mouth once daily as needed for Constipation. traMADol (ULTRAM) 50 mg tablet Take 1 tablet by mouth as directed. ONETOUCH DELICA PLUS LANC DEV as directed. FREESTYLE LANCETS 28 gauge use to test blood sugars THREE TIMES DAILY ONETOUCH DELICA PLUS LANCET 33 gauge as directed. FREESTYLE LITE STRIPS test strip as directed. albuterol HFA (PROVENTIL HFA, VENTOLIN HFA) 90 mcg/actuation inhaler as needed. golimumab (SIMPONI ARIA INTRAVENOUS) Inject intravenously every 8 weeks. 2mg/kg (242mg) pantoprazole DR (PROTONIX) 40 mg tablet Take 1 tablet by mouth once daily. 30 tablet 2 ergocalciferol 50,000 unit capsule (VITAMIN D2, DRISDOL) Take 50,000 Units by mouth two times a week. & Monday. CPAP celecoxib (CELEBREX) 200 mg capsule Take 1 capsule by mouth once daily. acetaminophen(TYLENOL ARTHRITIS 650 MG TAB) Take 2 tablets daily. 0 Current Facility-Administered Medications Medication Dose Route Frequency Provider Last Rate Last Admin perflutren lipid microspheres 1.3 mL in NaCl (PF) 0.9% 10 mL injection (DEFINITY) INTRAVENOUS DIRECTED PRTanya Norman APRN.CNP sodium chloride 0.9 % (flush) 10 mL (BD POSIFLUSH) 10 mL INTRAVENOUS DIRECTED PRN Tanya Ruano, SHARLA.SALES AND MARKETING ASSISTANT COMPLETE REVIEW OF SYSTEMS: Answers submitted by the patient for this visit: Core Review of Systems (Submitted on 05/02/2023) Fever : No Night Sweats: No Recent Unintentional Weight Change: No Nasal Congestion: Yes Hearing Loss: No Vision Disturbance: Yes A Cough: No Difficulty Breathing?: Yes Chest Pain: No Irregular Heart Beat: No Leg Swelling: Yes Nausea: No Diarrhea: Yes Black Tarry Stools: No Awaken at Night More Than Once to Urinate?: No Joint Pain or Stiffness: Yes Muscle Aches: Yes Leg or Foot Discomfort at Night?: Yes A Rash: No Dizziness: No Headaches: No Memory Loss: No Seizures: No PHYSICAL EXAM: 05/03/23 0917 BP: 128/85 Pulse: 85 SpO2: 96% Weight: 124.6 kg (274 lb 12.8 oz) Height: 160 cm (5' 3") General: NAD, alert and cooperative, Previous exam HEENT: EOMI, no proptosis/stare. Neck: supple with full ROM. No thyromegaly or palpable nodules. Cardiovascular: RRR, +S1 and S2, no MRG appreciated Lungs: Clear to auscultation bilaterally Abdomen: soft, non-tender, non-distended Extremities: No LE oedema Neuro: Alert and oriented Psych: Normal affect Labs: As mentioned above Assessment and Recommendations: Ms. Bella is a pleasant 67-year-old woman presented for follow-up of diabetes. Her diabetes is poorly controlled as evidenced by the A1c level. Goal goal is to achieve an A1c around 7% to reduce therisks of diabetes related complications She has not been checking Her glucose levels consistently and she is currently off antidiabetic medications. I asked him to check Blood sugar twice a day, fasting in the morning and 2 hours after dinner. We will restart the glipizide XL 5 mg once a day. Cost is an issue with GLP-1 agonist and she could not tolerate metformin. We will repeat her lipid panel Postsurgical hypothyroidism: She underwent total thyroidectomy for hyperthyroidism when she was younger. She is clinically and biochemically euthyroid. We will continue with the current dose of levothyroxine and I will check herTFTs Follow-up in 3 months with my colleague nurse and with me in 6 months Some of the above has been copied from prior documentation on 09/06/2022 but alvarez elements reviewed,confirmed, and/or updated by me (Vaughn Decker MD) on 05/03/2023 Medical Decision Making: Problems: Moderate: 2+ stable chronic illnesses Data: Unique test result(s) reviewed: 3+ Unique test(s) ordered: 2 Risk: Moderate: Drug management and Moderate risk from testing/treatment Medical Decision Making Level: 4 - Moderate This note was created using [employer] dictation software. You may find errors that were missed during proofreading. They are purely unintentional and if there are any concerns regarding this dictation, please do not hesitate to contact the dictating provider for clarification. Vaughn Decker MD documented in this encounterSelect [facility] [place]08-21-2023 Miscellaneous Notes* Telephone Encounter - Hailey Ocampo RN - 05/01/2023 4:05 PM EDT Pharmacy electronically requests the following refill(s) Requested Prescriptions Pending Prescriptions Disp Refills omeprazole (PRILOSEC) 40 mg capsule [Pharmacy Med Name: omeprazole 40 mg capsule,delayed release] 90 capsule 1 Sig: TAKE 1 CAPSULE BY MOUTH ONCE DAILY Hailey Ocampo RN documented in this encounterSelect Medical [facility] [place]08-08-2023 Procedure [facility]05-04-2023 Miscellaneous Notes* Telephone Encounter - Hailey Ocampo RN - 01/12/2023 12:18 PM EDT Patient's request for medication is as follows: Requested Prescriptions Pending Prescriptions Disp Refills omeprazole (PRILOSEC) 40 mg capsule 90 capsule 1 Sig: Take 1 capsule by mouth once daily. Please approve the above prescription(s) to electronically send to pharmacy. Hailey Ocampo RN * Telephone Encounter - Lia Holland Ma - 01/12/2023 11:56 AM EDT Alexandra Bella is calling in for a refill on her prescription of Omeprazole and would like it to go to [facility] in [place] pharmacy. documented in this encounterSelect [facility] [place]02-21-2023 Nurse Note* Nadira Wasserman RN - 11/01/2022 1:24 PM EST POST OP LEARNING RESPONSE INSTRUCTION PROVIDED TO: Patient and family member METHOD OF INSTRUCTION: Individual instruction Written instruction - handouts Verbal instruction PATIENT / FAMILY RESPONSE: Verbalizes understanding of: POST-PROCEDURE INSTRUCTIONS-Correct actionsto take to reduce post procedure complications FOLLOW-UP PLAN: Complete - No need for follow-up Patient instructed to call with any further issues SUPPLEMENTAL MATERIAL: None REFERRAL (RECOMMENDATION): None Electronically Signed By: Nadira Wasserman RN In Department: AMBULATORY SURGERY [facility] [place] Nurse Note* Nadira Wasserman RN - 11/01/2022 1:24 PM EST POST OP LEARNING RESPONSE INSTRUCTION PROVIDED TO: Patient and family member METHOD OF INSTRUCTION: Individual instruction Written instruction - handouts Verbal instruction PATIENT / FAMILY RESPONSE: Verbalizes understanding of: POST-PROCEDURE INSTRUCTIONS-Correct actionsto take to reduce post procedure complications FOLLOW-UP PLAN: Complete - No need for follow-up Patient instructed to call with any further issues SUPPLEMENTAL MATERIAL: None REFERRAL (RECOMMENDATION): None Electronically Signed By: Nadira Wasserman RN In Department: AMBULATORY SURGERY * Eliz Jamison RN - 11/01/2022 12:14 PM EST PRE OP LEARNING ASSESSMENT PROCEDURE/SURGERY: GI PROCEDURES: Colonoscopy and EGD READINESS TO LEARN COGNITIVE ABILITY: Alert and oriented MOTIVATION TO LEARN: Interested FAMILY SUPPORT: High - Very involved in pt care PATIENT LEARNS BEST BY: Written Instruction - Hand-outs Verbal Instruction FACTORS AFFECTING LEARNING: None PHYSICAL LIMITATIONS AFFECTING LEARNING: None Electronically Signed By: Eliz Jamison RN In Department: AMBULATORY SURGERY documented in this encounterSelect [facility] [place]02-21-2023 History and physical note * Rosy Esteban MD - 11/01/2022 12:30 PM EST PROCEDURAL SEDATION HISTORY AND PHYSICAL EXAM SERVICE DATE: 11/01/2022 SERVICE TIME: 12:18 PM Subjective HPI: This is a 66 year old female who presents for upper endoscopy & Colonoscopy PAST ANESTHESIA HISTORY: No history of adverse event PAST MEDICAL HISTORY Diagnosis Date Acute deep vein thrombosis (DVT) of popliteal vein of left lower extremity (HCC) Four DVT's last one 20 years ago- control- and after fracture Asymptomatic postmenopausal status (age-related) (natural) 03/2000 LMP 03/2000 CHF (congestive heart failure) (HCC) Colon cancer (HCC) 2018 Colorectal cancer (HCC) Endocarditis 2017 Essential hypertension 08/24/2018 Gastroesophageal reflux disease without esophagitis 08/24/2018 GERD (gastroesophageal reflux disease) Irritable bowel syndrome Irritable bowel Syndrome Kidney stones 2004 Left-sided chest wall pain 07/17/2016 Multiple gastric ulcers 2020 MARILIA (obstructive sleep apnea) 08/24/2018 Other hyperlipidemia 08/24/2018 Paroxysmal atrial fibrillation (HCC) Personal history of malignant neoplasm of breast 1996 1996 Breast cancer, clinical stage 1 infiltrating carcinoma left breast Phlebitis and thrombophlebitis of other deep vessels of lower extremities Phlebitis Phlebitis and thrombophlebitis of other deep vessels of lower extremities history of 3 DVTs Left Leg PMH - PAST MEDICAL HISTORY OF 09/1991 pap abnormal cells derived from serve dysplasia PMH - PAST MEDICAL HISTORY OF 11/1991 pap moderate - severe dysplasia Postoperative hypothyroidism 08/24/2018 Pre-diabetes Rheumatoid arthritis (HCC) 08/24/2018 Thyroid disease PAST SURGICAL HISTORY Procedure Laterality Date CARDIAC CATH 2017 CHOLECYSTECTOMY 2000 COLONOSCOPY 11/08/2011 Dr. Esteban-Random Bx-unremarkable. Sigmoid Bx-focal hyperplastic changes. COLONOSCOPY 03/31/2015 Dr. Esteban-evidence of large scar in the perianal area secondary to resection of SCC 2011. Random Bx's-unremarkable. COLONOSCOPY 04/28/2020 Dr. Esteban-bilious gastric fluid. Bile gastritis. Antrum Bx-unremarkable, HP negative. GEJ Bx-mild inflammation. COLPOSCOPY CERVIX UPPER/ADJACENT VAGINA 12/1991 Colposcopy CONIZATION CERVIX W/WO D&C RPR ELTRD EXC 01/1992 CONE BX, focal atypia EGD 03/31/2015 Dr. Esteban-HH. D2-unremarkable. Stomach body Bx-mild reactive gastropathy, HP negative. Stomach polyps-fundic gland. EGD 12/29/2017 Dr. Esteban-small HH. Multiple gastric polyps-. Non-bleeding erosive gastropathy. Bilious gastric fluid. EGD 2019 FIBROSCAN 03/31/2020 S3, F4 LIG/TRNSXJ FLP TUBE ABDL/VAG APPR UNI/BI history of Tubal ligation LIVER BIOPSY 02/21/2002 hepatic steatosis, moderate and diffuse. Mild portal fibrosis with chronic non- specific inflammation no evidence of cirrhosis. MASTEC PARTIAL W AXILL NODE REMOV 06/1997 left - had radiation and chemo MRI BREAST BIOPSY 1996 excisional Breast BX, BREAST CANCER, clinical stage1 infiltrating carcinoma left breast PAST SURGICAL HISTORY OF 07/2008 had "fatty tumor" removed from back PAST SURGICAL HISTORY OF 01/02/2012 excision perianal lesion-invasive moderately differentiated squamous cell CA PAST SURGICAL HISTORY OF 08/29/2018 Excision of 5 x 6 cm posterior back mass, PAST SURGICAL HISTORY OF Left scope knee PAST SURGICAL HISTORY OF Partial thyroidectomy THYROIDECTOMY TOTAL/COMPLETE 1973 Prior to Admission medications as of 11/01/22 1211 Medication Sig Last Dose Taking SYNTHROID 200 mcg tablet Take one tablet Monday through Monday,and half a pill on Saturdays and none on Sundays. 11/01/2022 Yes losartan (COZAAR) 25 mg tablet Take 0.5 tablets by mouth once daily. 11/01/2022 Yes flecainide (TAMBOCOR) 100 mg tablet Take 1 tablet by mouth every 12 hours. 11/01/2022 Yes furosemide (LASIX) 20 mg tablet Take 2 tablets by mouth every other day. 10/31/2022 Yes metoprolol tartrate, short acting, (LOPRESSOR) 25 mg tablet Take 0.5 tablets by mouth once daily. 11/01/2022 Yes CARAFATE 100 mg/mL suspension TAKE 10 ML FOUR TIMES A DAY Past Week Yes potassium chloride (K-TAB) 10 mEq tablet Take 1 tablet by mouth once daily. 10/31/2022 Yes traMADol (ULTRAM) 50 mg tablet Take 1 tablet by mouth as directed. Past Week Yes ergocalciferol 50,000 unit capsule (VITAMIN D2, DRISDOL) Take 50,000 Units by mouth two times a week. & Monday. Past Week Yes Omeprazole 40 mg capsule Take 40 mg by mouth once daily. 10/31/2022 Yes celecoxib (CELEBREX) 200 mg capsule Take 1 capsule by mouth once daily. 10/31/2022 Yes omeprazole (PRILOSEC) 40 mg capsule Take 1 capsule by mouth once daily. glipiZIDE (GLUCOTROL XL) 5 mg 24 hr tablet Take 1 tablet by mouth once daily. Insulin [place], Disposable, (BD ULTRA-FINE QUINTON PEN NEEDLE) 32 gauge x 5/32" To use with victoza pen atorvastatin (LIPITOR) 20 mg tablet Take 1 tablet by mouth once daily. Patient not taking: Reported on 09/06/2022 apixaban (ELIQUIS) 5 mg tab(s) Take 1 tablet by mouth twice daily. 10/28/2022 polyethylene glycol 3350 (MIRALAX) 17 gram/dose powder Take 17 g by mouth once daily as needed for Constipation. ONETOUCH DELICA PLUS LANC DEV as directed. FREESTYLE LANCETS 28 gauge use to test blood sugars THREE TIMES DAILY ONETOUCH DELICA PLUS LANCET 33 gauge as directed. FREESTYLE LITE STRIPS test strip as directed. albuterol HFA (PROVENTIL HFA, VENTOLIN HFA) 90 mcg/actuation inhaler as needed. golimumab (SIMPONI ARIA INTRAVENOUS) Inject intravenously every 8 weeks. 2mg/kg (242mg) 09/28/[address] (PROTONIX) 40 mg tablet Take 1 tablet by mouth once daily. Patient not taking: Reported on 09/06/2022 CPAP acetaminophen(TYLENOL ARTHRITIS 650 MG TAB) Take 2 tablets daily. ALLERGIES Allergen Reactions Adhesive Tape rash Avelox [Moxifloxaci* Heart race Biaxin [Clarithromy* Hives, GI Upset Eryc [Erythromycin] Swelling Metformin GI Upset Throwing up, Diarrhea Penicillins Quinolones Avelox Remicade [Inflixima* Shortness of Breath Some Sort Of Dissol* dosen't dissolve Spironolactone Intolerance Headaches Demerol [Meperidine* Other: See Comments Arm swelled up locally and turned red. Objective PHYSICAL EXAM: The remainder of the physical exam is noncontributory. AIRWAY: LUNGS: CARDIAC: , Assessment/Plan ASA Class: Active Problems: * No active hospital problems. * Resolved Problems: * No resolved hospital problems. * Medication and Non-Pharmacologic VTE Prophylaxis/Anticoagulants VTE Prophylaxis: VTE prophylaxis appropriate Provisional Diagnosis/Treatment Plan: Diarrhea. Nausea & GERD SIGNATURE: Rosy Esteban MD PATIENT NAME: Alexandra Bella DATE: November 01, 2022 TIME: 12:18 PM [facility] [place]23 History and physical note* Rosy Esteban MD - 11/01/2022 12:30 PM EST PROCEDURAL SEDATION HISTORY AND PHYSICAL EXAM SERVICE DATE: 11/01/2022 SERVICE TIME: 12:18 PM Subjective HPI: This is a 66 year old female who presents for upper endoscopy & Colonoscopy PAST ANESTHESIA HISTORY: No history of adverse event PAST MEDICAL HISTORY Diagnosis Date Acute deep vein thrombosis (DVT) of popliteal vein of left lower extremity (HCC) Four DVT's last one 20 years ago- control- and after fracture Asymptomatic postmenopausal status (age-related) (natural) 03/2000 LMP 03/2000 CHF (congestive heart failure) (HCC) Colon cancer (HCC) 2018 Colorectal cancer (HCC) Endocarditis 2017 Essential hypertension 08/24/2018 Gastroesophageal reflux disease without esophagitis 08/24/2018 GERD (gastroesophageal reflux disease) Irritable bowel syndrome Irritable bowel Syndrome Kidney stones 2005 Left-sided chest wall pain 07/17/2016 Multiple gastric ulcers 2020 MARILIA (obstructive sleep apnea) 08/24/2018 Other hyperlipidemia 08/24/2018 Paroxysmal atrial fibrillation (HCC) Personal history of malignant neoplasm of breast 1996 1996 Breast cancer, clinical stage 1 infiltrating carcinoma left breast Phlebitis and thrombophlebitis of other deep vessels of lower extremities Phlebitis Phlebitis and thrombophlebitis of other deep vessels of lower extremities history of 3 DVTs Left Leg PMH - PAST MEDICAL HISTORY OF 09/1991 pap abnormal cells derived from serve dysplasia PMH - PAST MEDICAL HISTORY OF 11/1991 pap moderate - severe dysplasia Postoperative hypothyroidism 08/24/2018 Pre-diabetes Rheumatoid arthritis (HCC) 08/24/2018 Thyroid disease PAST SURGICAL HISTORY Procedure Laterality Date CARDIAC CATH 2017 CHOLECYSTECTOMY 2000 COLONOSCOPY 11/08/2011 Dr. Esteban-Random Bx-unremarkable. Sigmoid Bx-focal hyperplastic changes. COLONOSCOPY 03/31/2015 Dr. Esteban-evidence of large scar in the perianal area secondary to resection of SCC 2011. Random Bx's-unremarkable. COLONOSCOPY 04/28/2020 Dr. Esteban-bilious gastric fluid. Bile gastritis. Antrum Bx-unremarkable, HP negative. GEJ Bx-mild inflammation. COLPOSCOPY CERVIX UPPER/ADJACENT VAGINA 12/1991 Colposcopy CONIZATION CERVIX W/WO D&C RPR ELTRD EXC 01/1992 CONE BX, focal atypia EGD 03/31/2015 Dr. Esteban-HH. D2-unremarkable. Stomach body Bx-mild reactive gastropathy, HP negative. Stomach polyps-fundic gland. EGD 12/29/2017 Dr. Esteban-small HH. Multiple gastric polyps-. Non-bleeding erosive gastropathy. Bilious gastric fluid. EGD 2019 FIBROSCAN 03/31/2020 S3, F4 LIG/TRNSXJ FLP TUBE ABDL/VAG APPR UNI/BI history of Tubal ligation LIVER BIOPSY 02/21/2002 hepatic steatosis, moderate and diffuse. Mild portal fibrosis with chronic non- specific inflammation no evidence of cirrhosis. MASTEC PARTIAL W AXILL NODE REMOV 06/1997 left - had radiation and chemo MRI BREAST BIOPSY 1996 excisional Breast BX, BREAST CANCER, clinical stage1 infiltrating carcinoma left breast PAST SURGICAL HISTORY OF 07/2008 had "fatty tumor" removed from back PAST SURGICAL HISTORY OF 01/02/2012 excision perianal lesion-invasive moderately differentiated squamous cell CA PAST SURGICAL HISTORY OF 08/29/2018 Excision of 5 x 6 cm posterior back mass, PAST SURGICAL HISTORY OF Left scope knee PAST SURGICAL HISTORY OF Partial thyroidectomy THYROIDECTOMY TOTAL/COMPLETE 1972 Prior to Admission medications as of 11/01/22 1211 Medication Sig Last Dose Taking SYNTHROID 200 mcg tablet Take one tablet Monday through Monday,and half a pill on Saturdays and none on Sundays. 11/01/2022 Yes losartan (COZAAR) 25 mg tablet Take 0.5 tablets by mouth once daily. 11/01/2022 Yes flecainide (TAMBOCOR) 100 mg tablet Take 1 tablet by mouth every 12 hours. 11/01/2022 Yes furosemide (LASIX) 20 mg tablet Take 2 tablets by mouth every other day. 10/31/2022 Yes metoprolol tartrate, short acting, (LOPRESSOR) 25 mg tablet Take 0.5 tablets by mouth once daily. 11/01/2022 Yes CARAFATE 100 mg/mL suspension TAKE 10 ML FOUR TIMES A DAY Past Week Yes potassium chloride (K-TAB) 10 mEq tablet Take 1 tablet by mouth once daily. 10/31/2022 Yes traMADol (ULTRAM) 50 mg tablet Take 1 tablet by mouth as directed. Past Week Yes ergocalciferol 50,000 unit capsule (VITAMIN D2, DRISDOL) Take 50,000 Units by mouth two times a week. & Monday. Past Week Yes Omeprazole 40 mg capsule Take 40 mg by mouth once daily. 10/31/2022 Yes celecoxib (CELEBREX) 200 mg capsule Take 1 capsule by mouth once daily. 10/31/2022 Yes omeprazole (PRILOSEC) 40 mg capsule Take 1 capsule by mouth once daily. glipiZIDE (GLUCOTROL XL) 5 mg 24 hr tablet Take 1 tablet by mouth once daily. Insulin [place], Disposable, (BD ULTRA-FINE QUINTON PEN NEEDLE) 32 gauge x 5/32" To use with victoza pen atorvastatin (LIPITOR) 20 mg tablet Take 1 tablet by mouth once daily. Patient not taking: Reported on 09/06/2022 apixaban (ELIQUIS) 5 mg tab(s) Take 1 tablet by mouth twice daily. 10/28/2022 polyethylene glycol 3350 (MIRALAX) 17 gram/dose powder Take 17 g by mouth once daily as needed for Constipation. ONETOUCH DELICA PLUS LANC DEV as directed. FREESTYLE LANCETS 28 gauge use to test blood sugars THREE TIMES DAILY ONETOUCH DELICA PLUS LANCET 33 gauge as directed. FREESTYLE LITE STRIPS test strip as directed. albuterol HFA (PROVENTIL HFA, VENTOLIN HFA) 90 mcg/actuation inhaler as needed. golimumab (SIMPONI ARIA INTRAVENOUS) Inject intravenously every 8 weeks. 2mg/kg (242mg) 09/28/[address] (PROTONIX) 40 mg tablet Take 1 tablet by mouth once daily. Patient not taking: Reported on 09/06/2022 CPAP acetaminophen(TYLENOL ARTHRITIS 650 MG TAB) Take 2 tablets daily. ALLERGIES Allergen Reactions Adhesive Tape rash Avelox [Moxifloxaci* Heart race Biaxin [Clarithromy* Hives, GI Upset Eryc [Erythromycin] Swelling Metformin GI Upset Throwing up, Diarrhea Penicillins Quinolones Avelox Remicade [Inflixima* Shortness of Breath Some Sort Of Dissol* dosen't dissolve Spironolactone Intolerance Headaches Demerol [Meperidine* Other: See Comments Arm swelled up locally and turned red. Objective PHYSICAL EXAM: The remainder of the physical exam is noncontributory. AIRWAY: LUNGS: CARDIAC: , Assessment/Plan ASA Class: Active Problems: * No active hospital problems. * Resolved Problems: * No resolved hospital problems. * Medication and Non-Pharmacologic VTE Prophylaxis/Anticoagulants VTE Prophylaxis: VTE prophylaxis appropriate Provisional Diagnosis/Treatment Plan: Diarrhea. Nausea & GERD SIGNATURE: Rosy Esteban MD PATIENT NAME: Alexandra Bella DATE: November 01, 2022 TIME: 12:18 PM documented in this encounter[facility] [place] Miscellaneous Notes* Result Encounter Note - Rosy Esteban MD - 11/01/2022 12:30 PM EST Duodenal biopsies are normal with increased intraepithelial lymphocytosis. This can be seen in several conditions specially medication related. Celiac markers negative on 12/2021. Gastric biopsy negative for H. pylori gastritis. Gastric polyp is benign. Biopsy from the GE junction showed mild inflammation probably acid related without Cowart's esophagus. Right and left colon biopsies are negative for microscopic colitis. Continue current management. Follow-up with me as planned. Rosy Esteban MD documented in this encounterSelect [facility] [place]23 Progress note* Result Encounter Note - Rosy Esteban MD - 11/01/2022 12:30 PM EST Duodenal biopsies are normal with increased intraepithelial lymphocytosis. This can be seen in several conditions specially medication related. Celiac markers negative on 12/2021. Gastric biopsy negative for H. pylori gastritis. Gastric polyp is benign. Biopsy from the GE junction showed mild inflammation probably acid related without Cowart's esophagus. Right and left colon biopsies are negative for microscopic colitis. Continue current management. Follow-up with me as planned. Rosy Esteban MD [facility] [place]02-21-[facility] Nurse Note* Eliz Jamison RN - 11/01/2022 12:14 PM EST PRE OP LEARNING ASSESSMENT PROCEDURE/SURGERY: GI PROCEDURES: Colonoscopy and EGD READINESS TO LEARN COGNITIVE ABILITY: Alert and oriented MOTIVATION TO LEARN: Interested FAMILY SUPPORT: High - Very involved in pt care PATIENT LEARNS BEST BY: Written Instruction - Hand-outs Verbal Instruction FACTORS AFFECTING LEARNING: None PHYSICAL LIMITATIONS AFFECTING LEARNING: None Electronically Signed By: Eliz Jamison RN In Department: AMBULATORY SURGERY [facility] [place]01-03-[facility] Miscellaneous Notes* Telephone Encounter - Vaughn Decker MD - 09/13/2022 5:38 PM EST Thank you. The glucose numbers are overall good for the time being until she recovers HH * Telephone Encounter - Corrie Alejandro RN - 09/13/2022 3:39 PM EST Received a call from patient. State's she is still off of the Glipizide due to not really eating. She is being managed by GI for Diverticulitis. At this time the plan from that stand point is GI restuntil 11/22/2022 and they will then complete a colonoscopy to investigate her colon and decide the next intervention (she may have to have part of her intestines removed). She will have labs and stoolsamples this week. She has nausea no vomiting, she has diarrhea but has been told to stop Immodium.Her BS's are running stable without the Glipizide. In the AM 120-147, during the day no higher [id number] and that is very rare. She is not eating much as she does not have much of an appetite but she is taking in a lot of fluids as advised by GI. She spoke with her insurance and Kelley is not on formulary (exclusion) and she is not eligible to use a savings card because she has government insurance (Medicare), so this will not be an option at this time for her. She will keep us up to date if there are any major changes. documented in this encounterSelect [facility] [place]12-27-2022 Instructions* Patient Instructions* Vaughn Decker MD - 09/06/2022 5:01 PM EST - continue to hold off on the glipizide for now - check your blood sugar fasting and at bedtime - if your blood sugars are mostly above 160s, please let me know documented in this encounterSelect [facility] [place]12-27-2022 History of Present illness Narrative* Vaughn Decker MD - 09/06/2022 4:40 PM EST ENDOCRINOLOGY CLINIC NOTE Ms. Bella is a 66 year old female with prediabetes, hypothyroidism, fatty liver disease, HTN, A. fib, CHF, MARILIA, DVT, h/o colon cancer self-referred for management of prediabetes HPI She had prediabetes but her A1c is elevated today. She was prescribed metformin XR but could not tolerate it due to vomiting. We prescribed Trulicity but cost was an issue. We started her on glipizide in 05/2022. She has been having nausea and diarrhea and was found to diverticulitis. We discussed holding the glipizide giventhe suboptimal oral intake. A1c: A1c was 7.3 in 07/202207/06/19 15:58 03/12/20 13:26 05/25/22 15:52 Hemoglobin A1C 6.5 (H) 6.4 (H) Hemoglobin A1C (POCT) 8.9 ! Current regimen: Glipizide XL 5 mg daily (not taking currently due to the GI illness) Home glucose monitoring: She has been checking her blood sugars 3 times a day and the range over the last few days of glipizide are in the low-mid 100s Hypoglycemia: She had an episode of glucose level of 56 while taking the glipizide and having the GI issues Diet: She eats 3 meals Physical activity: In the context of daily activities. Complications: Retinopathy: she had an eye exam, including testing for macular degeneration and was told it is ok Nephropathy normal GFR in 05/2022 Neuropathy: she reported paresthesias in her feet CVS: lipid profile: 05/2022: Cholesterol 176, LDL 92, HDL 56, TG 138 on atorvastatin 20 mg BP: 118/71 Hypothyroidism: She takes Synthroid 200 mcg M-F, half a pill on Saturdays and none on Sundays PAST MEDICAL HISTORY Diagnosis Date Acute deep vein thrombosis (DVT) of popliteal vein of left lower extremity (HCC) Four DVT's last one 20 years ago- control- and after fracture Asymptomatic postmenopausal status (age-related) (natural) 03/2000 LMP 03/2000 CHF (congestive heart failure) (HCC) Colon cancer (HCC) 2018 Colorectal cancer (HCC) Endocarditis 2017 Essential hypertension 08/24/2018 Gastroesophageal reflux disease without esophagitis 08/24/2018 GERD (gastroesophageal reflux disease) Irritable bowel syndrome Irritable bowel Syndrome Kidney stones 2004 Left-sided chest wall pain 07/17/2016 Multiple gastric ulcers 2020 MARILIA (obstructive sleep apnea) 08/24/2018 Other hyperlipidemia 08/24/2018 Paroxysmal atrial fibrillation (HCC) Personal history of malignant neoplasm of breast 1996 1996 Breast cancer, clinical stage 1 infiltrating carcinoma left breast Phlebitis and thrombophlebitis of other deep vessels of lower extremities Phlebitis Phlebitis and thrombophlebitis of other deep vessels of lower extremities history of 3 DVTs Left Leg PMH - PAST MEDICAL HISTORY OF 09/1991 pap abnormal cells derived from serve dysplasia PMH - PAST MEDICAL HISTORY OF 11/1991 pap moderate - severe dysplasia Postoperative hypothyroidism 08/24/2018 Pre-diabetes Rheumatoid arthritis (HCC) 08/24/2018 Thyroid disease PAST SURGICAL HISTORY Procedure Laterality Date CARDIAC CATH 2017 CHOLECYSTECTOMY 2000 COLONOSCOPY 11/08/2011 Dr. Esteban-Random Bx-unremarkable. Sigmoid Bx-focal hyperplastic changes. COLONOSCOPY 03/31/2015 Dr. Esteban-evidence of large scar in the perianal area secondary to resection of SCC 2011. Random Bx's-unremarkable. COLONOSCOPY 04/28/2020 Dr. Esteban-bilious gastric fluid. Bile gastritis. Antrum Bx-unremarkable, HP negative. GEJ Bx-mild inflammation. COLPOSCOPY CERVIX UPPER/ADJACENT VAGINA 12/1991 Colposcopy CONIZATION CERVIX W/WO D&C RPR ELTRD EXC 01/1992 CONE BX, focal atypia EGD 03/31/2015 Dr. Esteban-HH. D2-unremarkable. Stomach body Bx-mild reactive gastropathy, HP negative. Stomach polyps-fundic gland. EGD 12/29/2017 Dr. Esteban-small HH. Multiple gastric polyps-. Non-bleeding erosive gastropathy. Bilious gastric fluid. EGD 2019 FIBROSCAN 03/31/2020 S3, F4 LIG/TRNSXJ FLP TUBE ABDL/VAG APPR UNI/BI history of Tubal ligation LIVER BIOPSY 02/21/2002 hepatic steatosis, moderate and diffuse. Mild portal fibrosis with chronic non- specific inflammation no evidence of cirrhosis. MASTEC PARTIAL W AXILL NODE REMOV 06/1997 left - had radiation and chemo MRI BREAST BIOPSY 1996 excisional Breast BX, BREAST CANCER, clinical stage1 infiltrating carcinoma left breast PAST SURGICAL HISTORY OF 07/2008 had "fatty tumor" removed from back PAST SURGICAL HISTORY OF 01/02/2012 excision perianal lesion-invasive moderately differentiated squamous cell CA PAST SURGICAL HISTORY OF 08/29/2018 Excision of 5 x 6 cm posterior back mass, PAST SURGICAL HISTORY OF Left scope knee PAST SURGICAL HISTORY OF Partial thyroidectomy THYROIDECTOMY TOTAL/COMPLETE 1973 FAMILY HISTORY Problem Relation Age of Onset Breast Cancer Maternal Grandmother Breast Cancer Paternal Grandmother Cancer Paternal Grandfather bone cancer Prostate Cancer Paternal Grandfather Coronary Artery Disease Father Kidney Disease Father Diabetes Other mat grt grdf Liver Cancer Brother Hypertension Mother No Known Problems Daughter Diabetes Son Heart Brother Heart Brother Colon Cancer No Family History other (Blood Clot) No Family History Social History Tobacco Use Smoking status: Former Packs/day: 1.00 Years: 15.00 Pack years: 15.00 Types: Cigarettes Quit date: 09/11/1989 Years since quittin.0 Smokeless tobacco: Never Vaping Use Vaping Use: Never used Substance Use Topics Alcohol use: No Alcohol/week: 1.7 standard drinks Comment: occasional, rare Drug use: Never Comment: a few times a year (Not in a hospital admission) Allergies As of Date: 09/06/2022 Allergen Noted Reaction ADHESIVE TAPE 01/07/2002 AVELOX [MOXIFLOXACIN HCL] 02/16/2009 BIAXIN [CLARITHROMYCIN] 02/17/2009 Hives and GI Upset ERYC [ERYTHROMYCIN] 02/16/2009 Swelling METFORMIN 05/25/2022 GI Upset PENICILLINS 07/07/2003 QUINOLONES 07/12/2004 REMICADE [INFLIXIMAB] 10/21/2020 Shortness of Breath SOME SORT OF DISSOLVING SUTURE [O*12/27/2004 SPIRONOLACTONE 05/14/2020 Intolerance DEMEROL [MEPERIDINE (PF)] 03/14/2012 Other: See Comments Fully Assessed 05/25/2022 Current Outpatient Medications Medication Sig Dispense Refill omeprazole (PRILOSEC) 40 mg capsule Take 1 capsule by mouth once daily. 90 capsule 1 SYNTHROID 200 mcg tablet Take one tablet Monday through Monday,and half a pill on Saturdays and none on Sundays. 66 tablet 3 glipiZIDE (GLUCOTROL XL) 5 mg 24 hr tablet Take 1 tablet by mouth once daily. 30 tablet 3 Insulin [place], Disposable, (BD ULTRA-FINE QUINTON PEN NEEDLE) 32 gauge x 5/32" To use with victoza pen 50 Each 2 atorvastatin (LIPITOR) 20 mg tablet Take 1 tablet by mouth once daily. 30 tablet 11 losartan (COZAAR) 25 mg tablet Take 0.5 tablets by mouth once daily. 45 tablet 3 flecainide (TAMBOCOR) 100 mg tablet Take 1 tablet by mouth every 12 hours. 180 tablet 3 apixaban (ELIQUIS) 5 mg tab(s) Take 1 tablet by mouth twice daily. 180 tablet 3 furosemide (LASIX) 20 mg tablet Take 2 tablets by mouth every other day. metoprolol tartrate, short acting, (LOPRESSOR) 25 mg tablet Take 0.5 tablets by mouth once daily. CARAFATE 100 mg/mL suspension TAKE 10 ML FOUR TIMES A DAY 3600 mL 3 potassium chloride (K-TAB) 10 mEq tablet Take 1 tablet by mouth once daily. 90 tablet 3 polyethylene glycol 3350 (MIRALAX) 17 gram/dose powder Take 17 g by mouth once daily as needed for Constipation. traMADol (ULTRAM) 50 mg tablet Take 1 tablet by mouth as directed. ONETOUCH DELICA PLUS LANC DEV as directed. FREESTYLE LANCETS 28 gauge use to test blood sugars THREE TIMES DAILY ONETOUCH DELICA PLUS LANCET 33 gauge as directed. FREESTYLE LITE STRIPS test strip as directed. albuterol HFA (PROVENTIL HFA, VENTOLIN HFA) 90 mcg/actuation inhaler as needed. golimumab (SIMPONI ARIA INTRAVENOUS) Inject intravenously every 8 weeks. 2mg/kg (242mg) pantoprazole DR (PROTONIX) 40 mg tablet Take 1 tablet by mouth once daily. 30 tablet 2 ergocalciferol 50,000 unit capsule (VITAMIN D2, DRISDOL) Take 50,000 Units by mouth two times a week. & Monday. Omeprazole 40 mg capsule Take 40 mg by mouth once daily. CPAP celecoxib (CELEBREX) 200 mg capsule Take 1 capsule by mouth once daily. acetaminophen(TYLENOL ARTHRITIS 650 MG TAB) Take 2 tablets daily. 0 Current Facility-Administered Medications Medication Dose Route Frequency Provider Last Rate Last Admin perflutren lipid microspheres 1.3 mL in NaCl (PF) 0.9% 10 mL injection (DEFINITY) INTRAVENOUS DIRECTED PRN Tanya Ruano APRN.SERVANDO sodium chloride 0.9 % (flush) 10 mL (BD POSIFLUSH) 10 mL INTRAVENOUS DIRECTED PRN Tanya Ruano, [employer]UT[employer] MARKETING ASSISTANT COMPLETE REVIEW OF SYSTEMS: 10 point review of systems was negative other than what is mentioned in the H&P PHYSICAL EXAM: 09/06/22 1642 BP: 118/71 Pulse: 69 Resp: 16 SpO2: 95% Weight: 125.2 kg (276 lb) Height: 160 cm (5' 3") General: NAD, alert and cooperative, HEENT: EOMI, no proptosis/stare. Neck: supple with full ROM. No thyromegaly or palpable nodules. Cardiovascular: RRR, +S1 and S2, no MRG appreciated Lungs: Clear to auscultation bilaterally Abdomen: soft, non-tender, non-distended Extremities: No LE oedema Neuro: Alert and oriented Psych: Normal affect Labs: As mentioned above Assessment and Recommendations: Ms. Bella is a pleasant 66-year-old woman presented to establish care for diabetes. There has beenimprovement in her glycemic control as evidenced by the A1c level. Glipizide is currently on hold given the ongoing GI issues in the setting of diverticulitis. We will continue to hold off on the glipizide, and I asked her to monitor her glucose levels fasting in the morning and at bedtime. If the glucose values are mostly above 160s, she will let me know and we will likely restart glipizide at alower dose. She is still having difficulty losing weight despite dietary modifications. Cost unfortunately has been an issue with GLP-1 agonists, but her insurance will change coverage next year. We will explorethe option of Mounjaro or GLP-1 agonists, given the cardiovascular and weight loss benefits with this class of medications. Postsurgical hypothyroidism: She underwent total thyroidectomy for hyperthyroidism when she was younger. She is clinically and biochemically euthyroid I spent a total of 40 minutes on the date of the service which included preparing to see the patient, [id number] patient care, completing clinical documentation, counseling and educating the patient/family/caregiver, and ordering medications, tests, or procedures. This note was created using [employer] dictation software. You may find errors that were missed during proofreading. They are purely unintentional and if there are any concerns regarding this dictation, please do not hesitate to contact the dictating provider for clarification. Vaughn Decker MD documented in this encounterSelect [facility] [place]12-20-2022 Miscellaneous Notes* Telephone Encounter - Sunita Gutiérrez - 08/30/2022 10:37 AM EST Awaiting order * Telephone Encounter - Hailey Ocampo RN - 08/30/2022 9:28 AM EST Pt notified of recommendations and verbalized understanding. Dr. Esteban, please review order(s) and sign off. Schedulers, please schedule colonoscopy with MAC as indicated below. Thank you, Hailey Ocampo RN * Telephone Encounter - Rosy Esteban MD - 08/29/2022 4:33 PM EST Continue taking Flagyl for 10 days and will monitor symptoms accordingly. Schedule colonoscopy in 3 months with MAC sedation. Last colonoscopy 04/2020. Rosy Esteban MD * Telephone Encounter - Hailey Ocampo RN - 08/29/2022 3:23 PM EST Spoke with pt. She states she thought she had the flu (N/V/D). Lost 8 pounds in 1 week. Went to ER 08/27/2022. CT showed diverticulitis. This 2-3rd attack. Started on Flagyl 500 mg po bid , no other meds Rx'd "tried to give me Cipro but it flagged it as an issue with my heart med". She is feeling much better. Last colonoscopy 04/28/2020-sigmoid diverticulosis. Random Bx-unremarkable. Pt has OV 10/05/2021. Dr. Esteban, please advise. Thank you, Hailey Ocampo RN * Telephone Encounter - Brynn Akers - 08/29/2022 10:28 AM EST Patient calls stating she was discharged yesterday from hospital ([facility]) for diverticulitis. Patient would like to speak to Hailey and states she is unable to send a message from her phone. Please call patient at [phone]. documented in this encounterSelect [facility] [place]12-19-2022 Miscellaneous Notes* Telephone Encounter - Vaughn Decker MD - 08/29/2022 9:23 AM EST Noted. No action needed. HH * Telephone Encounter - Corrie Alejandro RN - 08/29/2022 8:35 AM EST Please review and advise. documented in this encounterSelect [facility] [place]12-17-2022 Miscellaneous Notes* Telephone Encounter - Vaughn Decker MD - 08/27/2022 10:40 AM EST Thanks. Will send her a message HH * Telephone Encounter - Corrie Alejandro RN - 08/26/2022 11:11 AM EST Patient called state's she has been ill since Monday08/22/2022. She started with Nausea/Vomiting/Diarrhea/Fever/Severe Body Aches on Monday. She took a COVID test and it was negative, suggested she repeat that as sometimes it takes a second test to show positive. She was unable to eat until today but was able to take in small amounts of fluid here and there. Today she is starting to feel better.She has been fever free for 48 hours, no vomiting for 24 hours, and diarrhea has slowed down. She has been taking Immodium to help with diarrhea. She has lost 6 lbs since Monday. She has held the Glipizide since Monday due to low BS's 57-178. Today her BS was 126, she was able to eat a small amountof rice and applesauce. Recommendations: Continue to re-introduce small amounts of bland foods (BRAT) and advance diet as tolerated, increase fluids as tolerated, monitor BS's frequently. Resume Glipizide as BS is back to normal today because she is eating (BS 126). Update PCP of illness so they are aware in case she needs any intervention moving forward from that standpoint. If BS's do not normalize she should contact us back. If Flu/BS SX become unmanageable or she cannot tolerate fluids she should proceed to the nearest ER (dehydration). Patient stated understanding and agreeable to all recommendations. documented in this encounterSelect [facility] [place]11-15-2022 NotePap Smear Specimen AdequacyJuly 26, 2022 4:53pmComment.Satisfactory for evaluation. No endocervical component is identified.[facility] A#[id number] [facility] Work Phone: Comment on above:Satisfactory for evaluation. No endocervical component is identified.07-26-2022 NotePap Smear Specimen Adequacy July 26, 2022 4:53pmComment.Satisfactory for evaluation. No endocervical component is identified.[facility] A#[id number] [facility] Work Phone: Comrcun on above:Satisfactory for evaluation. No endocervical component is identified.07-26-2022 NotePap Smear Specimen Adequacy July 26, 2022 4:53pmComment.Satisfactory for evaluation. No endocervical component is identified.[facility] A#[id number] [facility] Work Phone: Comdwsp on above:Satisfactory for evaluation. No endocervical component is identified.07-26-2022 NotePap Smear Specimen Adequacy July 26, 2022 4:53pmComment.Satisfactory for evaluation. No endocervical component is identified.[facility] A#[id number] [facility] Comment on above:Satisfactory for evaluation. No endocervical component is identified.07-26-2022 NotePap Smear Specimen AdequacyJuly 26, 2022 5:53pm Comment.Satisfactory for evaluation. No endocervical component is identified. [facility] INTER[facility]ACED A#[id number] Fostoria Community HospitalComment on above: Satisfactory for evaluation. No endocervical component is identified.06-22-2022 Miscellaneous Notes* Telephone Encounter - Corrie Alejandro RN - 06/22/2022 9:00 AM EDT Please review. * Telephone Encounter - Corrie Alejandro RN - 06/21/2022 11:29 AM EDT Please review and advise. Thanks. documented in this encounterSelect Medical Specialty [facility] [place]09-29-2022 Miscellaneous Notes* Telephone Encounter - Hailey Ocampo RN - 06/09/2022 11:58 AM EDT Images from the original note were not included. Pt notified of results and recommendations and verbalized understanding. She had gained a few pounds after her last OV and since lost weight . At her OV she weight 267 pounds, she states she now weighs [address] Esteban, please review order(s) and sign off. Thank you, JONI Gabriel MD Dawn Minnich, RN; Leonora Davalos, COMMUTER [employer].SALES AND MARKETING ASSISTANT RUQ US showed hepatic steatosis without focal hepatic lesion. Status post cholecystectomy. Otherwise on remarkable. Repeat RUQ US in 6 months. Rosy Esteban MD * Telephone Encounter - Hailey Ocampo RN - 06/09/2022 11:57 AM EDT ----- Message from Rosy Esteban MD sent at 06/07/2022 12:45 AM EDT ----- Pancreatic elastase, fecal is normal. No evidence of EPI. Calprotectin is normal. No evidence of bowel inflammation. Alpha-fetoprotein is normal. CRP is normal. WBC normal. Liver function tests are more or less in the same range. Repeat in 3 months. How much weight she lost since her last office visit? Rosy Esteban MD documented in this encounterSelect Medical Specialty [facility] [place]09-19-2022 Miscellaneous Notes* Telephone Encounter - Neema Berman Ma - 05/30/2022 9:16 AM EDT Patient via [employer] - Biomolecular Determinationhart requesting refills as follows: You reviewed recent labs that were done and Thyroid levels were normal. Requested Prescriptions Pending Prescriptions Disp Refills SYNTHROID 200 mcg tablet 66 tablet 3 Sig: Take one tablet Monday through Monday,and half a pill on Saturdays and none on Sundays. Please review and advise. Neema Berman Ma documented in this encounterSelect Medical Specialty Hospital [facility] [place]09-19-2022 History of Present illness Narrative* RT Estrada(R) - 05/30/2022 8:00 AM EDT Radiology Service Progress Note PATIENT NAME: Alexandra Bella DATE OF SERVICE: May 30, 2022 TIME: 8:43 AM PATIENT IDENTITY VERIFICATION COMPLETED USING TWO (2) IDENTIFIERS: Name and Date of confirmedby patient verbally. FALL SCREENING: Has the patient had 2 falls in the last year or 1 fall with injury or currently using an Ambulatory Assistive Device (Walker, Cane, Wheelchair, Crutches, etc.)? No PATIENT GENDER DATA: Female. status: : No status: NO. PATIENT RELEVANT IMPLANT DATA REVIEWED: Not Applicable RADIOLOGY DEPARTMENT: Ultrasound PERIPHERAL IV DATA: Not applicable SIGNED BY: Jaquelin Rainey RDMS Ana May 30, 2022 8:43 AM documented in this encounterSelect Medical Specialty Hospital [facility] [place]09-16-2022 Miscellaneous Notes* Telephone Encounter - Vaughn Decker MD - 05/27/2022 6:49 PM EDT Thank you. I changed it to glipizide XL and will send her a message. HH * Telephone Encounter - Corrie Alejandro RN - 05/27/2022 2:53 PM EDT Received a VM on nurses line from patient. State's the Leslie is covered but the cost is $287 per month. She cannot afford this. Is there another alternative? She does not qualify for any assistance for this. Also, she had her labs drawn for TFT's yesterday at [facility]. She will call and have the results faxed to us for review. documented in this encounterSelect Medical Specialty Hospital [facility] [place]09-16-2022 Miscellaneous Notes* Telephone Encounter - Vaughn Decker MD - 05/27/2022 11:40 AM EDT Thanks. I switched to Leslie and sent her a message HH * Telephone Encounter - Corrie Alejandro RN - 05/27/2022 9:11 AM EDT VICTOZA DENIED: Covered alternatives: Bydureon BCise Bydhaval Nelson These must be tried and failed or contraindicated in order to proceed with an appeal. Appeal . ALEXANDRA BELLA (Alvarez: [id number]) Rx #: [id number] Victoza 18MG/3ML pen-injectors Form [employer] Electronic PA Form (2016 [facility]) Created 1 day ago Sent to Plan 1 day ago Plan Response 1 day ago Submit Clinical Questions 1 day ago Determination Unfavorable 16 hours ago Message from Plan CaseId:[id number];Status:Denied;Review Type:;Appeal Information: Attention:ATTN: MEDICARE CLINICAL APPEALS [employer] [address] [address],[facility],[place],[address] WebAddress:[email or web address]; Important - Please read the below note on eAppeals: Please reference the denial letter for information on the rights for an appeal, rationale for the denial, and how to submit an appeal including if any information is needed to support the appeal. Note about urgent situations - Generally, an urgent situation is one which, in the opinion of the provider, the health ofthe patient may be in serious jeopardy or may experience pain that cannot be adequately controlled w willis waiting for a decision on the appeal.; * Telephone Encounter - Corrie Alejandro RN - 05/26/2022 8:29 AM EDT Received a faxed [facility] request to complete for Victoza. ([employer]) Completed. Note: Formulary alternatives are: Bydureon BCise Lynsey Rosalesbrown Will await if this will be denied and patient needs to try alternative. ALEXANDRA BELLA (Alvarez: [id number]) Rx #: [id number] Victoza 18MG/3ML pen-injectors Form [employer] Electronic PA Form (2017 [facility]) Created 15 hours ago Sent to Plan 4 minutes ago Plan Response 4 minutes ago Submit Clinical Questions 1 minute ago Determination Wait for Determination Please wait for [employer] 2016 to return a determination. documented in this encounterSelect Medical Specialty [facility] [place]06-20-2022 Miscellaneous Notes* Telephone Encounter - Tanya Wade RN - 02/28/2022 9:22 AM EDT Eliquis denied by [employer]. Spoke with patient, provided information on Eliquis Assistance program. Appeal started with insurance. * Telephone Encounter - Kacie Echeverria - 02/25/2022 10:18 AM EDT [facility] [place] calling in asking us to fax to Neville Marcus ([phone]) the reason she needs Eliquis, and wondering if she can be reduced to tier 2 because the patient can not afford tier 3 cost? Please advise * Telephone Encounter - Phuong Lara - 02/24/2022 1:52 PM EDT Patient called the office to give a heads up that we should be receiving a fax from her insurance regarding Eliquis Assistance. I advised patient that our clinical staff handles this. Patient requesting a call from nursing staff to help explain the process of applying for Eliquis Assistance, and what information would be needed. Please advise. Phuong Lara documented in this encounterSelect Medical Specialty Hospital - [place]06-13-2022 Miscellaneous Notes* Telephone Encounter - Albin Benitez RN - 02/21/2022 9:20 AM EDT Called PT Unsure what could be causing this. She should touch base with PCP and I can also place a consult to sleep medicine if she's like their opinion. PT states she will think about sleep medicine consult, and get back to us. * Telephone Encounter - Tanya Ruano APRN.SERVANDO - 02/21/2022 9:08 AM EDT Unsure what could be causing this. She should touch base with PCP and I can also place a consult tosleep medicine if she's like their opinion. * Telephone Encounter - Albin Benitez RN - 02/21/2022 9:01 AM EDT Called PT she states she still has night terrors she is wondering what else it could be. Told PT tostart back on Metoprolol 12.5 mg 0.5 tablets daily. Also reminded her to get fasting lipid panel done * Telephone Encounter - Tanya Ruano APRN.CNP - 02/21/2022 7:51 AM EDT Please call Alexandra and find out if her night terrors and fatigue improved after stopping the metoprolol? I saw her on 02/14/22 and told her she could hold the metoprolol 12.5 to see if symptoms improve. If symptoms haven't improved significantly, she should get back on the metoprolol. Also, please remind her to get fasting lipid panel done. Thanks! Tanya documented in this encounterSelect Medical Specialty Hospital - [place]06-06-2022 Instructions* Patient Instructions* Tanya Ruano APRN.CNP - 02/14/2022 8:56 AM EDT 1. Schedule echocardiogram as soon as possible 2. Get fasting blood work done to check your cholesterol. Make sure you fast for at least 10-12 hours beforehand. 3. Stop the metoprolol half tablet for one week. Touch base with a [employer] message letting me know if the nightmares resolved. If not, we'll put you back on the long-acting form of the metoprolol once a day. documented in this encounterSelect Medical Specialty Hospital - [place]06-06-2022 History of Present illness Narrative* Tanya Ruano APRN.CNP - 02/14/2022 8:30 AM EDT Images from the original note were not included. [facility] Department of Cardiovascular Medicine SECTION OF CLINICAL CARDIOLOGY OUTPATIENT VISIT DATE February 13, 2022 OUTPATIENT VISIT TYPE ESTABLISHED PRIMARY CARE PHYSICIAN: Shiraz Stephens (Lyn[place]) [address] [place] [address] REASON FOR VISIT: 4 month follow up - last OV with Dr. Mosley on 11/02/21 (no changes) HISTORY OF PRESENT ILLNESS: Ms. Bella is a 66 year old female with a history of mild CAD, chronic diastolic CHF, paroxysmal AF(Flecainide, Eliquis), HTN, HLD, T2DM, MARILIA, non-alcoholic fatty liver disease, breast Ca (1996), DVT S/P IVC filter (~1999), rheumatoid arthritis, former smoker, and hypothyroidism. Today the patient states that she is recovering from bronchitis and a double ear infection 2 and half weeks ago. She has been taking daily Zyrtec and Flonase due to ongoing symptoms. She has noticed a slight increase in exertional dyspnea as of late. She does not take her Lasix on a daily basis, but takes it approximately every other day or so. She is down a total of 25 pounds by cutting out carbohydrates. She does not partake in any regular aerobic exercise due to significant rheumatoid arthritis joint pain and chronic back pain. She has noticed some chest heaviness with exertion that improves with her albuterol inhaler. She denies any palpitations, near-syncope, syncope, orthopnea, PND, or edema. She is compliant with home CPAP machine. Subjective PAST MEDICAL HISTORY Diagnosis Date Acute deep vein thrombosis (DVT) of popliteal vein of left lower extremity (HCC) Four DVT's last one 20 years ago- control- and after fracture Asymptomatic postmenopausal status (age-related) (natural) 03/2000 LMP 03/2000 CHF (congestive heart failure) (HCC) Colon cancer (HCC) 2018 Colorectal cancer (HCC) Endocarditis 2017 Essential hypertension 08/24/2018 Gastroesophageal reflux disease without esophagitis 08/24/2018 GERD (gastroesophageal reflux disease) Irritable bowel syndrome Irritable bowel Syndrome Kidney stones 2004 Left-sided chest wall pain 07/17/2016 Multiple gastric ulcers 2020 MARILIA (obstructive sleep apnea) 08/24/2018 Other hyperlipidemia 08/24/2018 Paroxysmal atrial fibrillation (HCC) Personal history of malignant neoplasm of breast 1996 1996 Breast cancer, clinical stage 1 infiltrating carcinoma left breast Phlebitis and thrombophlebitis of other deep vessels of lower extremities Phlebitis Phlebitis and thrombophlebitis of other deep vessels of lower extremities history of 3 DVTs Left Leg PMH - PAST MEDICAL HISTORY OF 09/1991 pap abnormal cells derived from serve dysplasia PMH - PAST MEDICAL HISTORY OF 11/1991 pap moderate - severe dysplasia Postoperative hypothyroidism 08/24/2018 Pre-diabetes Rheumatoid arthritis (HCC) 08/24/2018 Thyroid disease PAST SURGICAL HISTORY Procedure Laterality Date CARDIAC CATH 2017 CHOLECYSTECTOMY 2000 COLONOSCOPY 11/08/2011 Dr. Esteban-Random Bx-unremarkable. Sigmoid Bx-focal hyperplastic changes. COLONOSCOPY 03/31/2015 Dr. Esteban-evidence of large scar in the perianal area secondary to resection of SCC 2011. Random Bx's-unremarkable. COLONOSCOPY 04/28/2020 Dr. Esteban-bilious gastric fluid. Bile gastritis. Antrum Bx-unremarkable, HP negative. GEJ Bx-mild inflammation. COLPOSCOPY CERVIX UPPER/ADJACENT VAGINA 12/1991 Colposcopy CONIZATION CERVIX W/WO D&C RPR ELTRD EXC 01/1992 CONE BX, focal atypia EGD 03/31/2015 Dr. Esteban-HH. D2-unremarkable. Stomach body Bx-mild reactive gastropathy, HP negative. Stomach polyps-fundic gland. EGD 12/29/2017 Dr. Esteban-small HH. Multiple gastric polyps-. Non-bleeding erosive gastropathy. Bilious gastric fluid. EGD 2019 FIBROSCAN 03/31/2020 S3, F4 LIG/TRNSXJ FLP TUBE ABDL/VAG APPR UNI/BI history of Tubal ligation LIVER BIOPSY 02/21/2002 hepatic steatosis, moderate and diffuse. Mild portal fibrosis with chronic non- specific inflammation no evidence of cirrhosis. MASTEC PARTIAL W AXILL NODE REMOV 06/1997 left - had radiation and chemo MRI BREAST BIOPSY 1996 excisional Breast BX, BREAST CANCER, clinical stage1 infiltrating carcinoma left breast PAST SURGICAL HISTORY OF 07/2008 had "fatty tumor" removed from back PAST SURGICAL HISTORY OF 01/02/2012 excision perianal lesion-invasive moderately differentiated squamous cell CA PAST SURGICAL HISTORY OF 08/29/2018 Excision of 5 x 6 cm posterior back mass, PAST SURGICAL HISTORY OF Left scope knee PAST SURGICAL HISTORY OF Partial thyroidectomy THYROIDECTOMY TOTAL/COMPLETE 1973 SOCIAL HISTORY Social History Tobacco Use Smoking status: Former Smoker Packs/day: 1.00 Years: 15.00 Pack years: 15.00 Quit date: 09/11/1989 Years since quittin.4 Smokeless tobacco: Never Used Vaping Use Vaping Use: Never used Substance Use Topics Alcohol use: No Alcohol/week: 1.7 standard drinks Comment: occasional, rare Drug use: Never Comment: a few times a year FAMILY HISTORY Problem Relation Age of Onset Breast Cancer Maternal Grandmother Breast Cancer Paternal Grandmother Cancer Paternal Grandfather bone cancer Prostate Cancer Paternal Grandfather Coronary Artery Disease Father Kidney Disease Father Diabetes Other mat grt grdf Liver Cancer Brother Hypertension Mother No Known Problems Daughter Diabetes Son Heart Brother Heart Brother Colon Cancer No Family History other (Blood Clot) No Family History ALLERGIES: ALLERGIES Allergen Reactions Adhesive Tape rash Avelox [Moxifloxaci* Heart race Biaxin [Clarithromy* Hives, GI Upset Eryc [Erythromycin] Swelling Penicillins Quinolones Avelox Remicade [Inflixima* Shortness of Breath Some Sort Of Dissol* dosen't dissolve Spironolactone Intolerance Headaches Demerol [Meperidine* Other: See Comments Arm swelled up locally and turned red. MEDICATIONS: losartan (COZAAR) 25 mg tablet Take 0.5 tablets by mouth once daily. flecainide (TAMBOCOR) 100 mg tablet Take 1 tablet by mouth every 12 hours. apixaban (ELIQUIS) 5 mg tab(s) Take 1 tablet by mouth twice daily. furosemide (LASIX) 20 mg tablet Take 2 tablets by mouth every other day. metoprolol tartrate, short acting, (LOPRESSOR) 25 mg tablet Take 0.5 tablets by mouth once daily. CARAFATE 100 mg/mL suspension TAKE 10 ML FOUR TIMES A DAY potassium chloride (K-TAB) 10 mEq tablet Take 1 tablet by mouth once daily. traMADol (ULTRAM) 50 mg tablet Take 1 tablet by mouth as directed. ONETOUCH DELICA PLUS LANC DEV as directed. FREESTYLE LANCETS 28 gauge use to test blood sugars THREE TIMES DAILY ONETOUCH DELICA PLUS LANCET 33 gauge as directed. FREESTYLE LITE STRIPS test strip as directed. albuterol HFA (VENTOLIN HFA) 90 mcg/actuation inhaler as needed. golimumab (SIMPONI ARIA INTRAVENOUS) Inject intravenously every 8 weeks. 2mg/kg (242mg) SYNTHROID 200 mcg tablet Take 0.5 tablets by mouth once daily. Take along with 75 mcg tablet for a total dose of 175 mcg daily. ergocalciferol 50,000 unit capsule (VITAMIN D2, DRISDOL) Take 50,000 Units by mouth two times a week. & Monday. Omeprazole 40 mg capsule Take 40 mg by mouth once daily. CPAP celecoxib (CELEBREX) 200 mg capsule Take 1 capsule by mouth once daily. acetaminophen(TYLENOL ARTHRITIS 650 MG TAB) Take 2 tablets daily. metFORMIN ER (GLUCOPHAGE XR) 500 mg 24 hr tablet Take 1 tablet by mouth once daily for 14 days, THEN 1 tablet twice daily. polyethylene glycol 3350 (MIRALAX) 17 gram/dose powder Take 17 g by mouth once daily as needed for Constipation. pantoprazole DR (PROTONIX) 40 mg tablet Take 1 tablet by mouth once daily. REVIEW OF SYSTEMS: GENERAL: + fatigue, poor sleep HEENT: Negative for: Headache, Impaired Vision, Glasses, Hearing Impairment, Ringing in Ears, Nosebleeds, Poor Dental Care, Bleeding Gums and Dentures. NECK: Negative for: Swelling, Pain, Stiffness RESPIRATORY: See HPI CARDIOVASCULAR: See HPI GASTROINTESTINAL: Negative for: Trouble swallowing, Heartburn, Change in bowel habits, Blood in stool, Dark black stools MUSCULOSKELETAL: + arthralgias, chronic back pain NEUROLOGIC/PSYCHIATRIC: Negative for: Weakness, Paralysis, Numbness, Tingling, Tremor, Nervousness or anxiety, Depressed mood, Memory loss SKIN: Negative for: Rash, Itching HEMATOLOGICAL/LYMPHATIC: + easy bleeding (Eliquis) ENDOCRINE: Negative for: Heat or Cold Intolerance, Excessive Sweating, Frequent Urination, FrequentThirst Objective PHYSICAL EXAMINATION: BP 122/70 Pulse 91 Ht 160 cm (5' 3") Wt 122.9 kg (271 lb) LMP 03/11/1998 SpO2 95% BMI 48.01 kg/m General: Well appearing, in no acute distress, speaking in complete sentences. Skin: No clubbing, no cyanosis. Eyes: Extra ocular movements intact Oropharynx: Teeth in good repair. Neck: No jugular venous distention, no carotid bruits, carotids have a normal upstroke, no palpablethyromegaly. Lungs: Clear to auscultation bilaterally, no wheezing or rhonchi. Heart: Regular rhythm, soft LINDSEY Abdomen: Soft, nontender, bowel sounds normal, no palpable organomegaly, no bruits. Extremities: No peripheral edema . Grade 2/4 distal pulses bilaterally. Neuro: Oriented to person, place and time, alert. CARDIOVASCULAR MEDICINE TESTING: Echocardiogram (11/05/2019): CONCLUSIONS: - Exam indication: Sustained atrial fibrillation - The left ventricle is small. Left ventricular systolic function is normal. EF = 62 5% (2D biplane) Left ventricular diastolic function was not evaluated due to AF. [id number] variation due to Afib. - The right ventricle is normal in size. Right ventricular systolic function is normal. - There are no significant valvular abnormalities. - Post tricuspid valve replacement. There is trace (trace - 1+) tricuspid valve regurgitation. - Negative agitated saline study done on MICHAELA. - Exam was compared with the prior echocardiographic exam performed on 07/08/2019 (MICHAELA). No major changes Cardiac Catheterization (09/23/2019): CORONARY ANGIOGRAPHY: LEFT MAIN TRUNK: No Stenosis LEFT ANTERIOR DESCENDING: Comments: mild dfifuse non obstructive plaque disease DIAGONAL #1: No Stenosis DIAGONAL #2: No Stenosis LEFT CIRCUMFLEX: No Stenosis MARGINAL #1: No Stenosis MARGINAL #2: No Stenosis DOMINANT: NO RIGHT CORONARY: No Stenosis DOMINANT: YES POSTERIOR DESCENDING: No Stenosis POSTERIOR LATERAL: No Stenosis none COLLATERAL CIRCULATION: Not Present LV GRAM: LVEF: Normal ( 55% or Greater) WALL MOTION: Normal MITRAL VALVE REGURGITATION: Not Assessed HEMODYNAMICS: LVEDP: 8 mm hg LV - AORTA: No Gradient There were no tests performed for review. IMPRESSION: 1. CAD - LHC 09/2019: mild diffuse LAD disease - Clinically stable and denies chest pain - Continue ASA and BB - She states she was told to stop statin therapy 2. Chronic diastolic CHF - Echo 10/2019: EF 62% - NYHA FC II, stage C - Heart failure stable - Continue furosemide 40 mg ~ every other day - Follows with the CHF clinic 3. Paroxysmal atrial fibrillation - Diagnosed 06/2019, S/P MICHAELA/DCC on 07/08/19 - S/P DCC 09/02/19, return to AF within 2 days - HARPAL DS -VASC = 2 (female, HTN) - Anticoagulated on apixaban 5mg bID - Started Flecainide 100mg BID 10/2019, S/P DCC 11/12/19 4. Essential hypertension - Good control on losartan and metoprolol - Encouraged dietary sodium restriction/DASH diet - Reviewed risks of HTN and principles of treatment - Goal of BP <130/80 5. Pure hypercholesterolemia - Not currently on any lipid lowering agents - Last lipid panel 04/2020 with LDL 67 - Repeat fasting lipid panel and start statin therapy following results 6. Type 2 diabetes mellitus 7. Morbid obesity - BMI 48 - Being evaluated for bariatric surgery 8. Former smoker 9. MARILIA (obstructive sleep apnea) - Compliant on CPAP 10. DEE (dyspnea on exertion) - No overt fluid overload on exam - Echocardiogram PLAN AND RECOMMENDATIONS: Patient here for evaluation of slight increase in exertional dyspnea recently. She has just recently recovered from bronchitis and double ear infection. She does not appear overtly fluid overloaded on physical exam. I will get an updated echocardiogram to evaluate heart structure and function. Chest heaviness appears pulmonary as its alleviated with the use of albuterol inhaler. Catheterization 2years ago revealed mild diffuse LAD disease. Apparently she was instructed at some point in time bya physician to stop statin therapy (?). We reviewed the importance of statin therapy given the evidence of ASCVD and for plaque stabilization. I will get an updated lipid panel at this time to decideon dosage of statin reinitiation. She is dealing with significant fatigue and night terrors/nightmares. She feels it might be relatedto the metoprolol. Given the fact that she is on such a small dose I instructed her to stop the medication for 1 week and let me know if her symptoms improve. If symptoms do not improve I will restart metoprolol ER 12.5 mg once daily. She is down a total of 25lb on her home scale by limiting carbohydrates and I congratulated her on these efforts! She should continue to actively engage in cardiovascular risk factor modification and follow up with Dr. Mosley as scheduled in June, or sooner should need arise. CONTACT INFORMATION: Tanya Ruano APRN.SERVANDO Cardiology Nurse Practitioner Section of Regional Cardiology [place] Dept of Cardiovascular Medicine [facility] [address] [place] [address] Office Office This note was partially generated using [employer] voice recognition system, and there may be some incorrect words, spellings, and punctuation that were not noted in checking the note before saving. I personally interviewed, confirmed and edited the above information if obtained by others. documented in this encounterSelect Medical Specialty [facility] - [place]05-04-2022 History and physical note * Rosy Esteban MD - 01/12/2022 8:00 AM EDT REASON FOR VISIT: Follow up Fatty Liver HPI: Alexandra Bella is a 66 year old female who presents for follow-up fatty liver/cirrhosis with elevated LFTs. Last office visit was 10/2020 and since then she has lost 21 pounds. She had EGD colonoscopy 04/2020 as outlined below. She complains of terrible reflux and has been taking pantoprazole 40mg in the morning before breakfast and sucralfate 1 g p.o. 3 times daily before lunch, dinner and at bedtime. Nevertheless if she still symptomatic. She complains of diarrhea alternating with constipation. Her GI symptoms got worse when she was treated with metformin for prediabetic condition and that she stopped taking it completely which helpedher symptoms somewhat. Hemoglobin A1c 6.4. 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 Lloyd. She is no longer taking sulfasalazine. She stopped Remicade and now she is taking Golimumab (Simponi) x 1 year. She takes Eliquis. Previous work up includes: Last OV 10/21/2020 ASSESSMENT/PLAN: 1. Fatty metamorphosis of liver - ICD9: 571.8, ICD10: K76.0 (primary diagnosis) Advanced steatosis and fibrosis. Concerned about liver cirrhosis. I had a long discussion with the patient and her regarding the importance of determining if she has liver cirrhosis and its stage. Liver biopsy would be the only tool for this determination. She has been reluctant to proceed with liver biopsy even I have been advised her to do so in the past. We also discussed her quevedo with her weight. Her weight is 268 pounds and the BMI 47.4. It is so imperative for the patient to lose significant weight in order to make a difference in her liver disease, diabetes and congestive heart failure. We discussed the option of referring her to a bariatric surgeon for evaluation which I believe in this patient will be of benefit. I will refer to Dr. Tyler Alfonso at [facility]. She was advised to call his office for an appointment. 2. Elevated LFTs - ICD9: 790.6, ICD10: R79.89 LFTs are fluctuating and are related to her liver disease. 3. Class 3 severe obesity with serious comorbidity and body mass index (BMI) of 45.0 to 49.9 in adult, unspecified obesity type (HCC) - ICD9: 278.01, V85.42, ICD10: E66.01, Z68.422 I do believe she will benefit from a bariatric surgery, i.e. gastric sleeve. If the patient is suitable for bariatric surgery then I will advise for intraoperative liver biopsyto assess the degree of fibrosis/cirrhosis. 4. Gastroesophageal reflux disease without esophagitis - ICD9: 530.81, ICD10: K21.9 She takes omeprazole 40 mg daily. 5. Hx of cholecystectomy - ICD9: V45.79, ICD10: Z90.49 History of cholecystectomy in the past. 02/21/2002 Liver Bx-hepatic steatosis, moderate and diffuse. Mild portal fibrosis. With chronic non-specific inflammation. 03/20/2020 RUQ US: 1. Sonographic findings are consistent with a liver changes. No focal liver lesion. 2. Status post cholecystectomy. No abnormal bile duct dilatation 03/31/2020 Fibroscan: Please refer to get images report for individual readings Number of readings: 10 IQR:22% E (kpa):15.3 CAP:336 Impression. The reading was adequate, and corresponds to Fibrosis stage F4 and steatosis grade of S3. 04/28/2020 EGD-bilious gastric fluid. Bile gastritis. Antrum Bx-unremarkable, HP negative. GEJ Bx-mild inflammation. 04/28/2020 Colonoscopy-sigmoid diverticulosis. Random Bx-unremarkable. 06/29/2020 Labs-T bili 0.5, ALP 132, AST 89, ALT 143, CRP 0.6, ESR 18 09/22/2020 CTAP w/ IV contrast-1. Several lymph nodes near the celiac axis unchanged size of largest 1.1 cm. 2. No new evidence of adenopathy 3. No evidence of thickening of the wall of the stomach seen on this study. 09/28/2020 Labs-T bili 0.4, ALP 151, AST 87, ALT 175 09/23/2021 Liver, biopsy - Steatohepatitis with bridging fibrosis (CESAR Stage 3), see comment. Component Latest Ref Rng & Units 09/20/2021 10/12/2021 12/30/2021 01/06/2022 01/06/2022 01/06/2022 12:33 PM 12:33 PM 12:33 PM WBC 3.70 - 11.00 k/uL 4.99 5.02 6.30 RBC 3.90 - 5.20 m/uL 4.58 4.46 4.62 Hemoglobin 11.5 - 15.5 g/dL 13.8 13.4 13.8 Hematocrit 36.0 - 46.0 % 42.2 40.7 42.2 MCV 80.0 - 100.0 fL 92.1 91.3 91.3 MCH 26.0 - 34.0 pg 30.1 30.0 29.9 MCHC 30.5 - 36.0 g/dL 32.7 32.9 32.7 RDW-CV 11.5 - 15.0 % 13.3 12.9 12.9 Platelet Count 150 - 400 k/uL 163 216 205 MPV 9.0 - 12.7 fL 11.5 11.7 11.5 Neut% % 55.9 65.3 51.3 Abs Neut (ANC) 1.45 - 7.50 k/uL 2.78 3.28 3.23 Lymph% % 36.3 25.9 36.0 Abs Lymph 1.00 - 4.00 k/uL 1.81 1.30 2.27 Lyon% % 7.0 8.0 9.7 Abs Lyon <0.87 k/uL 0.35 0.40 0.61 Eosin% % 0.2 0.4 2.7 Abs Eosin <0.46 k/uL <0.03 <0.03 0.17 Baso% % 0.6 0.4 0.3 Abs Baso <0.11 k/uL 0.03 <0.03 <0.03 Nucleated Reds 0 /100 WBC 0.0 Absolute nRBC <0.01 k/uL <0.01 Diff Type Auto Diff DTYPE Auto Auto Protein, Total 6.3 - 8.0 g/dL 7.5 7.6 Albumin 3.9 - 4.9 g/dL 3.8 (L) 4.0 Calcium 8.5 - 10.2 mg/dL 9.4 9.7 Bilirubin, Total 0.2 - 1.3 mg/dL 0.7 0.3 Alkaline Phosphatase 34 - 123 U/L 114 135 (H) AST 13 - 35 U/L 258 (H) 138 (H) ALT 7 - 38 U/L 208 (H) 169 (H) Glucose 74 - 99 mg/dL 149 (H) 136 (H) BUN 7 - 21 mg/dL 11 19 Creatinine 0.58 - 0.96 mg/dL 0.74 0.88 Sodium 136 - 144 mmol/L 140 140 Potassium 3.7 - 5.1 mmol/L 3.5 (L) 4.7 Chloride 97 - 105 mmol/L 104 104 CO2 22 - 30 mmol/L 25 26 Anion Gap 9 - 18 mmol/L 11 10 eGFR- >60 eGFR-All Other Races >60 eGFR >=60 mL/min/1.73m 73 Iron 41 - 186 ug/dL 44 TIBC 232 - 386 ug/dL 391 (H) Transferrin Saturation 15 - 57 % 11 (L) T4 5.5 - 10.2 ug/dL 10.9 (H) T4 Uptake 0.91 - 1.19 1.06 FTI 5.3 - 10.8 ug/dL 10.3 PT Sec 9.7 - 13.0 sec 11.8 PT INR 0.9 - 1.3 1.1 Transglutaminase Ab, IgG <20 Units 5 Negative Transglutaminase Ab, IgA <20 Units 4 Transglutaminase IgA Qualitative Negative, Test not Indicated Negative Amylase 30 - 104 U/L 33 Lipase 16 - 61 U/L 21 CRP <0.9 mg/dL 1.5 (H) WSR 0 - 20 mm/hr 30 (H) AFP <11.0 ng/mL <3.0 Alpha 1 Antitrypsin 90 - 200 mg/dL 150 Ferritin 14.7 - 205.1 ng/mL 131.9 GGT 6 - 46 U/L 58 (H) Hep B Core Ab, IgM Negative Negative Hep B Surface Ab, Qual Negative Negative Hep B Surface Ag Negative Negative Hep C Antibody IA Negative Negative Mitochondrial Ab Panel Negative Negative Smooth Muscle Ab Panel Negative Negative TSH 0.270 - 4.200 mIU/L 0.699 IgA 70 - 400 mg/dL 288 ALLERGIES Allergen Reactions Adhesive Tape rash Avelox [Moxifloxaci* Heart race Biaxin [Clarithromy* Hives, GI Upset Eryc [Erythromycin] Swelling Penicillins Quinolones Avelox Remicade [Inflixima* Shortness of Breath Some Sort Of Dissol* dosen't dissolve Spironolactone Intolerance Headaches Demerol [Meperidine* Other: See Comments Arm swelled up locally and turned red. PAST MEDICAL HISTORY Diagnosis Date Acute deep vein thrombosis (DVT) of popliteal vein of left lower extremity (HCC) Four DVT's last one 20 years ago- control- and after fracture Asymptomatic postmenopausal status (age-related) (natural) 03/2000 LMP 03/2000 CHF (congestive heart failure) (HCC) Colon cancer (HCC) 2018 Colorectal cancer (HCC) Endocarditis 2017 Essential hypertension 08/24/2018 Gastroesophageal reflux disease without esophagitis 08/24/2018 GERD (gastroesophageal reflux disease) Irritable bowel syndrome Irritable bowel Syndrome Kidney stones 2004 Left-sided chest wall pain 07/17/2016 Multiple gastric ulcers 2020 MARILIA (obstructive sleep apnea) 08/24/2018 Other hyperlipidemia 08/24/2018 Paroxysmal atrial fibrillation (HCC) Personal history of malignant neoplasm of breast 1996 1996 Breast cancer, clinical stage 1 infiltrating carcinoma left breast Phlebitis and thrombophlebitis of other deep vessels of lower extremities Phlebitis Phlebitis and thrombophlebitis of other deep vessels of lower extremities history of 3 DVTs Left Leg PMH - PAST MEDICAL HISTORY OF 09/1991 pap abnormal cells derived from serve dysplasia PMH - PAST MEDICAL HISTORY OF 11/1991 pap moderate - severe dysplasia Postoperative hypothyroidism 08/24/2018 Pre-diabetes Rheumatoid arthritis (HCC) 08/24/2018 Thyroid disease PAST SURGICAL HISTORY Procedure Laterality Date CARDIAC CATH 2016 CHOLECYSTECTOMY 2000 COLONOSCOPY 11/08/2011 Dr. Esteban-Random Bx-unremarkable. Sigmoid Bx-focal hyperplastic changes. COLONOSCOPY 03/31/2015 Dr. Esteban-evidence of large scar in the perianal area secondary to resection of SCC 2011. Random Bx's-unremarkable. COLONOSCOPY 04/28/2020 Dr. Esteban-bilious gastric fluid. Bile gastritis. Antrum Bx-unremarkable, HP negative. GEJ Bx-mild inflammation. COLPOSCOPY CERVIX UPPER/ADJACENT VAGINA 12/1991 Colposcopy CONIZATION CERVIX W/WO D&C RPR ELTRD EXC 01/1992 CONE BX, focal atypia EGD 03/31/2015 Dr. Esteban-HH. D2-unremarkable. Stomach body Bx-mild reactive gastropathy, HP negative. Stomach polyps-fundic gland. EGD 12/29/2017 Dr. Esteban-small HH. Multiple gastric polyps-. Non-bleeding erosive gastropathy. Bilious gastric fluid. EGD 2019 FIBROSCAN 03/31/2020 S3, F4 LIG/TRNSXJ FLP TUBE ABDL/VAG APPR UNI/BI history of Tubal ligation LIVER BIOPSY 02/21/2002 hepatic steatosis, moderate and diffuse. Mild portal fibrosis with chronic non- specific inflammation no evidence of cirrhosis. MASTEC PARTIAL W AXILL NODE REMOV 06/1997 left - had radiation and chemo MRI BREAST BIOPSY 1996 excisional Breast BX, BREAST CANCER, clinical stage1 infiltrating carcinoma left breast PAST SURGICAL HISTORY OF 07/2008 had "fatty tumor" removed from back PAST SURGICAL HISTORY OF 01/02/2012 excision perianal lesion-invasive moderately differentiated squamous cell CA PAST SURGICAL HISTORY OF 08/29/2018 Excision of 5 x 6 cm posterior back mass, PAST SURGICAL HISTORY OF Left scope knee PAST SURGICAL HISTORY OF Partial thyroidectomy THYROIDECTOMY TOTAL/COMPLETE 1973 FAMILY HISTORY Problem Relation Age of Onset Breast Cancer Maternal Grandmother Breast Cancer Paternal Grandmother Cancer Paternal Grandfather bone cancer Prostate Cancer Paternal Grandfather Coronary Artery Disease Father Kidney Disease Father Diabetes Other mat grt grdf Liver Cancer Brother Hypertension Mother No Known Problems Daughter Diabetes Son Heart Brother Heart Brother Colon Cancer No Family History other (Blood Clot) No Family History Social History Tobacco Use Smoking status: Former Smoker Packs/day: 1.00 Years: 15.00 Pack years: 15.00 Quit date: 09/11/1989 Years since quittin.3 Smokeless tobacco: Never Used Vaping Use Vaping Use: Never used Substance Use Topics Alcohol use: No Alcohol/week: 1.7 standard drinks Comment: occasional, rare Drug use: Never Comment: a few times a year Current Outpatient Medications Medication Sig CARAFATE 100 mg/mL suspension TAKE 10 ML FOUR TIMES A DAY losartan (COZAAR) 25 mg tablet Take 0.5 tablets by mouth once daily. potassium chloride (K-TAB) 10 mEq tablet Take 1 tablet by mouth once daily. furosemide (LASIX) 20 mg tablet Take 2 tablets by mouth once daily. flecainide (TAMBOCOR) 100 mg tablet Take 1 tablet by mouth every 12 hours. metoprolol tartrate, short acting, (LOPRESSOR) 25 mg tablet Take 0.5 tablets by mouth twice daily. apixaban (ELIQUIS) 5 mg tab(s) Take 1 tablet by mouth twice daily. polyethylene glycol 3350 (MIRALAX) 17 gram/dose powder Take 17 g by mouth once daily as needed for Constipation. traMADol (ULTRAM) 50 mg tablet Take 1 tablet by mouth as directed. ONETOUCH DELICA PLUS LANC DEV as directed. FREESTYLE LANCETS 28 gauge use to test blood sugars THREE TIMES DAILY ONETOUCH DELICA PLUS LANCET 33 gauge as directed. FREESTYLE LITE STRIPS test strip as directed. albuterol HFA (VENTOLIN HFA) 90 mcg/actuation inhaler as needed. golimumab (SIMPONI ARIA INTRAVENOUS) Inject intravenously every 8 weeks. 2mg/kg (242mg) SYNTHROID 200 mcg tablet Take 0.5 tablets by mouth once daily. Take along with 75 mcg tablet for a total dose of 175 mcg daily. (Patient taking differently: Take 200 mcg by mouth once daily. 200mcg Mon-Mon. 100mcg on Mon and none on Monday ) ergocalciferol 50,000 unit capsule (VITAMIN D2, DRISDOL) Take 50,000 Units by mouth two times a week. & Monday. Omeprazole 40 mg capsule Take 40 mg by mouth once daily. CPAP celecoxib (CELEBREX) 200 mg capsule Take 1 capsule by mouth once daily. acetaminophen(TYLENOL ARTHRITIS 650 MG TAB) Take 2 tablets daily. metFORMIN ER (GLUCOPHAGE XR) 500 mg 24 hr tablet Take 1 tablet by mouth once daily for 14 days, THEN 1 tablet twice daily. (Patient not taking: Reported on 05/03/2021) pantoprazole DR (PROTONIX) 40 mg tablet Take 1 tablet by mouth once daily. (Patient not taking: Reported on 01/12/2022 ) No current facility-administered medications for this visit. REVIEW OF SYSTEMS: PAIN ASSESSMENT: Negative for pain, history of chronic pain, or current treatment for a chronic pain condition. GENERAL: Weight loss HEENT: Negative for frequent or significant headaches, No changes in hearing or vision, no nose bleeds or other nasal problems NECK: Negative for lumps, goiter, pain and significant neck swelling RESPIRATORY: Negative for cough, hemoptysis, wheezing, COPD, dyspnea or shortness of breath CARDIOVASCULAR: Negative for chest pain, leg swelling, hypertension, CHF or palpitations GI: reflux, diarrhea, constipation : No history of dysuria, frequency or incontinence MUSCULOSKELETAL: Negative for joint pain or swelling, back pain or muscle pain SKIN: Negative for lesions, rash, and itching PSYCH: Negative for sleep disturbance, mood disorder and recent psychosocial stressors HEMATOLOGY/LYMPHOLOGY: Negative for prolonged bleeding, bruising easily or swollen nodes ENDOCRINE: Negative for cold or heat intolerance, polyuria, polydipsia and goiter NEURO: No history of headaches, syncope, paralysis, seizures or tremors PHYSICAL EXAMINATION: BP 147/77 Pulse 93 Ht 5' 3" (1.60m) Wt 270 lb (122.5kg) LMP 03/11/1998 BMI 47.84 kg/(m^2). General appearance: Well appearing, alert, in no acute distress, well-hydrated, well nourished. Skin: Skin color, texture, turgor normal, no suspicious rashes or lesions Head: Normocephalic, no masses, lesions, tenderness or abnormalities Eyes: Anicteric sclera. Pupils are equally round and reactive to light. Extraocular movements are intact. Nose/Sinuses: Nares normal, septum midline, mucosa normal, no drainage or sinus tenderness Oropharynx: Lips, mucosa, and tongue normal, teeth and gums normal, oropharynx normal Neck: Supple, no adenopathy; thyroid symmetric, normal size, no bruits Lungs: Lungs clear to auscultation. No wheezing, rhonchi, rales Heart: RRR without murmur, gallop, or rubs. No ectopy Abdomen: Normal abdominal exam, Abdomen soft, non-tender. Bowel sounds normal. No masses, organomegaly Extremities: No deformities, edema, skin discoloration, clubbing or cyanosis. Good capillary refill. Musculoskeletal: No joint swelling, deformity, or tenderness Peripheral pulses: Normal Neuro: Gait normal. ASSESSMENT/PLAN: 1. Fatty metamorphosis of liver - ICD9: 571.8, ICD10: K76.0 (primary diagnosis) Liver biopsy done 09/23/2021 showed steatohepatitis with bridging fibrosis (CESAR stage III). NAFLD activity score showed: Steatosis 1 (5-33%) Lobular inflammation 2 (2-4) Hepatocyte ballooning 2 (many) Total score: 5/8 Stage: 3 (bridging fibrosis) 2. Elevated liver enzymes - ICD9: 790.5, ICD10: R74.8 Alkaline phosphatase was normal in the past and now 135 on 12/30/2021. ALT fluctuates between 120 200. Most recent ALT 12/30/2021 was 169. AST fluctuates between 90 and 260. Most recent AST 12/31/2019 was 138. Total bili is normal. 3. Liver fibrosis - ICD9: 571.5, ICD10: K74.00 Weight loss is the only proven treatment which can reverse fibrosis. 4. Gastroesophageal reflux disease without esophagitis - ICD9: 530.81, ICD10: K21.9 She takes Protonix and sucralfate as outlined in HPI. 5. Diarrhea, unspecified type - ICD9: 787.91, ICD10: R19.7 Bowel movements fluctuate between diarrhea and constipation. 6. Hx of cholecystectomy - ICD9: V45.79, ICD10: Z90.49 I had a long discussion with the patient and her regarding the importance of weight reduction. She shared with me her experience when I referred her to the bariatric program at [facility]. She is somewhat impressed and did not want to go back to this program. I offered her for referra ls to someone else. She would think about it. She would like to work on weight management first. Follow-up with me in 3 months. Rosy Esteban MD, FACP documented [facility] [place] Miscellaneous Notes* Telephone Encounter - Hailey Ocampo RN - 01/05/2022 4:22 PM EDT Pt notified of results and recommendations and verbalized understanding. She is aware she needs additional labs for CLD. She has lost 20 pounds. She states the diabetes is "iffy", she manages by diet. because Metformin caused her vomiting. HTN, HLD, CHF and A-fib are under control. Dr. Esteban, please review order(s) and sign off. Thank you, Hailey Ocampo RN * Telephone Encounter - Hailey Ocampo RN - 01/05/2022 4:15 PM EDT ----- Message from Rosy Esteban MD sent at 01/05/2022 1:42 PM EDT ----- Blood counts is normal, she is not anemic. Alpha-fetoprotein as a marker for liver cancer is normal. Liver tests are elevated mainly alkaline phosphatase, AST and ALT. Total bilirubin is normal. Liver biopsy 09/23/2021 showed steatohepatitis with bridging fibrosis (stage III). Mild steatosis. Elevated liver function test could be related to steatohepatitis or multifactorial. Hailey: Please check if she had comprehensive blood work-up for chronic liver disease. Did she lose any weight? Is here diabetes mellitus, hypertension and hyperlipidemia are under control? Is her congestive heart failure is also under control? Rosy Esteban MD documented in this encounter[facility] [place] History of Past illness Narrative* Problem Noted Date Resolved Date Chest pain 07/05/2019 11/11/2020 Mass on back 08/14/2018 11/26/2020 Overview: Added automatically from request for surgery [id number] Left-sided chest wall pain 07/17/201611/11 Tear of right meniscus as current injury 013 07/08/2019 documented as of this encounter (statuses as of 01/05/2022) [facility] [place] History of Past illness Narrative* Problem Noted Date Resolved Date Chest pain 07/05/2019 11/11/2020 Mass on back 08/14/2018 11/26/2020 Overview: Added automatically from request for surgery [id number] Left-sided chest wall pain 07/17/201611/11 Tear of right meniscus as current injury 013 07/08/2019 documented as of this encounter (statuses as of 01/13/2022) [facility] [place] History of Past illness Narrative* Problem Noted Date Resolved Date Chest pain 07/05/2019 11/11/2020 Mixed hyperlipidemia 08/24/2018 02/14/2022 Last Assessment & Plan: Assessment: controlled on Rx Mass on back 08/14/2018 11/26/2020 Overview: Added automatically from request for surgery [id number] Left-sided chest wall pain 07/17/201611/11 Tear of right meniscus as current injury 013 07/08/2019 CHF (congestive heart failure) 0 02/14/2022 documented as of this encounter (statuses as of 02/14/2022) [facility] [place] of Past illness Narrative* Problem Noted Date Resolved Date Chest pain 07/05/2019 11/11/2020 Mixed hyperlipidemia 08/24/2018 02/14/2022 Last Assessment & Plan: Assessment: controlled on Rx Mass on back 08/14/2018 11/26/2020 Overview: Added automatically from request for surgery [id number] Left-sided chest wall pain 07/17/201611/11 Tear of right meniscus as current injury 013 07/08/2019 CHF (congestive heart failure) 0 02/14/2022 documented as of this encounter (statuses as of 02/21/2022) [facility] [place] of Past illness Narrative* Problem Noted Date Resolved Date Chest pain 07/05/2019 11/11/2020 Mixed hyperlipidemia 08/24/2018 02/14/2022 Last Assessment & Plan: Assessment: controlled on Rx Mass on back 08/14/2018 11/26/2020 Overview: Added automatically from request for surgery [id number] Left-sided chest wall pain 07/17/201611/11 Tear of right meniscus as current injury 013 07/08/2019 CHF (congestive heart failure) 0 02/14/2022 documented as of this encounter (statuses as of 02/28/2022) [facility] [place] of Past illness Narrative* Problem Noted Date Resolved Date Chest pain 07/05/2019 11/11/2020 Mixed hyperlipidemia 08/24/2018 02/14/2022 Last Assessment & Plan: Assessment: controlled on Rx Mass on back 08/14/2018 11/26/2020 Overview: Added automatically from request for surgery [id number] Left-sided chest wall pain 07/17/201611/11 Tear of right meniscus as current injury 013 07/08/2019 CHF (congestive heart failure) 0 02/14/2022 documented as of this encounter (statuses as of 03/12/2022) [facility] [place] of Past illness Narrative* Problem Noted Date Resolved Date Chest pain 07/05/2019 11/11/2020 Mixed hyperlipidemia 08/24/2018 02/14/2022 Last Assessment & Plan: Assessment: controlled on Rx Mass on back 08/14/2018 11/26/2020 Overview: Added automatically from request for surgery [id number] Left-sided chest wall pain 07/17/201611/11 Tear of right meniscus as current injury 013 07/08/2019 CHF (congestive heart failure) 0 02/14/2022 documented as of this encounter (statuses as of 05/27/2022) [facility] [place] of Past illness Narrative* Problem Noted Date Resolved Date Chest pain 07/05/2019 11/11/2020 Mixed hyperlipidemia 08/24/2018 02/14/2022 Last Assessment & Plan: Assessment: controlled on Rx Mass on back 08/14/2018 11/26/2020 Overview: Added automatically from request for surgery [id number] Left-sided chest wall pain 07/17/201611/11 Tear of right meniscus as current injury 013 07/08/2019 CHF (congestive heart failure) 0 02/14/2022 documented as of this encounter (statuses as of 05/27/2022) [facility] [place] of Past illness Narrative* Problem Noted Date Resolved Date Chest pain 07/05/2019 11/11/2020 Mixed hyperlipidemia 08/24/2018 02/14/2022 Last Assessment & Plan: Assessment: controlled on Rx Mass on back 08/14/2018 11/26/2020 Overview: Added automatically from request for surgery [id number] Left-sided chest wall pain 07/17/201611/11 Tear of right meniscus as current injury 013 07/08/2019 CHF (congestive heart failure) 0 02/14/2022 documented as of this encounter (statuses as of 05/30/2022) [facility] [place] of [facility] illness Narrative* Problem Noted Date Resolved Date Chest pain 07/05/2019 11/11/2020 Mixed hyperlipidemia 08/24/2018 02/14/2022 Last Assessment & Plan: Assessment: controlled on Rx Mass on back 08/14/2018 11/26/2020 Overview: Added automatically from request for surgery [id number] Left-sided chest wall pain 07/17/201611/11 Tear of right meniscus as current injury 013 07/08/2019 CHF (congestive heart failure) 0 02/14/2022 documented as of this encounter (statuses as of 05/31/2022) [facility] [place] of [facility] illness Narrative* Problem Noted Date Resolved Date Chest pain 07/05/2019 11/11/2020 Mixed hyperlipidemia 08/24/2018 02/14/2022 Last Assessment & Plan: Assessment: controlled on Rx Mass on back 08/14/2018 11/26/2020 Overview: Added automatically from request for surgery [id number] Left-sided chest wall pain 07/17/201611/11 Tear of right meniscus as current injury 013 07/08/2019 CHF (congestive heart failure) 0 02/14/2022 documented as of this encounter (statuses as of 06/10/2022) [facility] [place] of [facility] Narrative* Problem Noted Date Resolved Date Chest pain 07/05/2019 11/11/2020 Mixed hyperlipidemia 08/24/2018 02/14/2022 Last Assessment & Plan: Assessment: controlled on Rx Mass on back 08/14/2018 11/26/2020 Overview: Added automatically from request for surgery [id number] Left-sided chest wall pain 07/17/201611/11 Tear of right meniscus as current injury 013 07/08/2019 CHF (congestive heart failure) 0 02/14/2022 documented as of this encounter (statuses as of 06/22/2022) [facility] [place] of [facility] illness Narrative* Problem Noted Date Resolved Date Chest pain 07/05/2019 11/11/2020 Mixed hyperlipidemia 08/24/2018 02/14/2022 Last Assessment & Plan: Assessment: controlled on Rx Mass on back 08/14/2018 11/26/2020 Overview: Added automatically from request for surgery [id number] Left-sided chest wall pain 07/17/201611/11 Tear of right meniscus as current injury 013 07/08/2019 CHF (congestive heart failure) 0 02/14/2022 documented as of this encounter (statuses as of 07/13/2022) [facility] [place] of [facility] Narrative* Problem Noted Date Resolved Date Chest pain 07/05/2019 11/11/2020 Mixed hyperlipidemia 08/24/2018 02/14/2022 Last Assessment & Plan: Assessment: controlled on Rx Mass on back 08/14/2018 11/26/2020 Overview: Added automatically from request for surgery [id number] Left-sided chest wall pain 07/17/201611/11 Tear of right meniscus as current injury 013 07/08/2019 CHF (congestive heart failure) 0 02/14/2022 documented as of this encounter (statuses as of 08/27/2022) [facility] [place] of [facility] Narrative* Problem Noted Date Resolved Date Chest pain 07/05/2019 11/11/2020 Mixed hyperlipidemia 08/24/2018 02/14/2022 Last Assessment & Plan: Assessment: controlled on Rx Mass on back 08/14/2018 11/26/2020 Overview: Added automatically from request for surgery [id number] Left-sided chest wall pain 07/17/201611/11 Tear of right meniscus as current injury 013 07/08/2019 CHF (congestive heart failure) 0 02/14/2022 documented as of this encounter (statuses as of 08/29/2022) [facility] [place] of [facility] illness Narrative* Problem Noted Date Resolved Date Chest pain 07/05/2019 11/11/2020 Mixed hyperlipidemia 08/24/2018 02/14/2022 Last Assessment & Plan: Assessment: controlled on Rx Mass on back 08/14/2018 11/26/2020 Overview: Added automatically from request for surgery [id number] Left-sided chest wall pain 07/17/201611/11 Tear of right meniscus as current injury 07/08/2019 CHF (congestive heart failure) 0 02/14/2022 documented as of this encounter (statuses as of 08/30/2022) [facility] History of Past illness Narrative* Problem Noted Date Resolved Date Chest pain 07/05/2019 11/11/2020 Mixed hyperlipidemia 08/24/2018 02/14/2022 Last Assessment & Plan: Assessment: controlled on Rx Mass on back 08/14/2018 11/26/2020 Overview: Added automatically from request for surgery [id number] Left-sided chest wall pain 07/17/201611/11 Tear of right meniscus as current injury 013 07/08/2019 CHF (congestive heart failure) 0 02/14/2022 documented as of this encounter (statuses as of 09/12/2022) [facility]2019 History of Past illness Narrative* Problem Noted Date Resolved Date Chest pain 07/05/2019 11/11/2020 Mixed hyperlipidemia 08/24/2018 02/14/2022 Last Assessment & Plan: Assessment: controlled on Rx Mass on back 08/14/2018 11/26/2020 Overview: Added automatically from request for surgery [id number] Left-sided chest wall pain 07/17/201611/11 Tear of right meniscus as current injury 013 07/08/2019 CHF (congestive heart failure) 0 02/14/2022 documented as of this encounter (statuses as of 09/15/2022) [facility] History of Past illness Narrative* Problem Noted Date Resolved Date Chest pain 07/05/2019 11/11/2020 Mixed hyperlipidemia 08/24/2018 02/14/2022 Last Assessment & Plan: Assessment: controlled on Rx Mass on back 08/14/2018 11/26/2020 Overview: Added automatically from request for surgery [id number] Left-sided chest wall pain 07/17/201611/11 Tear of right meniscus as current injury 013 07/08/2019 CHF (congestive heart failure) 0 02/14/2022 documented as of this encounter (statuses as of 01/12/2023) [facility] History of Past illness Narrative* Problem Noted Date Diagnosed Date Resolved Date Chest pain 07/05/2019 11/11/2020 Mixed hyperlipidemia 08/24/2018 022 Last Assessment & Plan: Assessment: controlled on Rx Mass on back 08/14/2018 11/26/2020 Overview: Added automatically from request for surgery [id number] Left-sided chest wall pain 07/17/2016 0 11/11/2020 Tear of right meniscus as current injury 10/03/2012 07/08/2019 CHF (congestive heart failure) 02/14/2022 documented as of this encounter (statuses as of 05/02/2023) [facility] History of Past illness Narrative* Problem Noted Date Diagnosed Date Resolved Date Chest pain 07/05/2019 11/11/2020 Mixed hyperlipidemia 08/24/2018 022 Last Assessment & Plan: Assessment: controlled on Rx Mass on back 08/14/2018 11/26/2020 Overview: Added automatically from request for surgery [id number] Left-sided chest wall pain 07/17/2016 0 11/11/2020 Tear of right meniscus as current injury 10/03/2012 07/08/2019 CHF (congestive heart failure) 02/14/2022 documented as of this encounter (statuses as of 05/03/2023) [facility] History of Past illness Narrative* Problem Noted Date Diagnosed Date Resolved Date Chest pain 07/05/2019 11/11/2020 Mixed hyperlipidemia 08/24/2018 022 Last Assessment & Plan: Assessment: controlled on Rx Mass on back 08/14/2018 11/26/2020 Overview: Added automatically from request for surgery [id number] Left-sided chest wall pain 07/17/2016 0 11/11/2020 Tear of right meniscus as current injury 10/03/2012 07/08/2019 CHF (congestive heart failure) 02/14/2022 documented as of this encounter (statuses as of 06/10/2023) [facility] History of Past illness Narrative* Problem Noted Date Diagnosed Date Resolved Date Chest pain 07/05/2019 11/11/2020 Mixed hyperlipidemia 08/24/2018 022 Last Assessment & Plan: Assessment: controlled on Rx Mass on back 08/14/2018 11/26/2020 Overview: Added automatically from request for surgery [id number] Left-sided chest wall pain 07/17/2016 0 11/11/2020 Tear of right meniscus as current injury 10/03/2012 07/08/2019 CHF (congestive heart failure) 02/14/2022 documented as of this encounter (statuses as of 06/17/2023) [facility] History of Past illness Narrative* Problem Noted Date Diagnosed Date Resolved Date Chest pain 07/05/2019 11/11/2020 Mixed hyperlipidemia 08/24/20182 022 Last Assessment & Plan: Assessment: controlled on Rx Mass on back 08/14/2018 11/26/2020 Overview: Added automatically from request for surgery [id number] Left-sided chest wall pain 07/17/2016 0 11/11/2020 Tear of right meniscus as current injury 10/03/2012 07/08/2019 CHF (congestive heart failure) 02/14/2022 documented as of this encounter (statuses as of 08/02/2023) [facility] History of Past illness Narrative* Problem Noted Date Diagnosed Date Resolved Date Chest pain 07/05/2019 11/11/2020 Mixed hyperlipidemia 08/24/20182 022 Last Assessment & Plan: Assessment: controlled on Rx Mass on back 08/14/2018 11/26/2020 Overview: Added automatically from request for surgery [id number] Left-sided chest wall pain 07/17/2016 0 11/11/2020 Tear of right meniscus as current injury 10/03/2012 07/08/2019 CHF (congestive heart failure) 02/14/2022 documented as of this encounter (statuses as of 11/10/2023) [facility] History of Past illness Narrative* Problem Noted Date Diagnosed Date Resolved Date Chest pain 07/05/2019 11/11/2020 Mixed hyperlipidemia 08/24/20182 022 Last Assessment & Plan: Assessment: controlled on Rx Mass on back 08/14/2018 11/26/2020 Overview: Added automatically from request for surgery [id number] Left-sided chest wall pain 07/17/2016 0 11/11/2020 Tear of right meniscus as current injury 10/03/2012 07/08/2019 CHF (congestive heart failure) 02/14/2022 documented as of this encounter (statuses as of 11/16/2023) [facility] History of Past illness Narrative* Problem Noted Date Diagnosed Date Resolved Date Chest pain 07/05/2019 11/11/2020 Mixed hyperlipidemia 08/24/20182 022 Last Assessment & Plan: Assessment: controlled on Rx Mass on back 08/14/2018 11/26/2020 Overview: Added automatically from request for surgery [id number] Left-sided chest wall pain 07/17/2016 0 11/11/2020 Tear of right meniscus as current injury 10/03/2012 07/08/2019 CHF (congestive heart failure) 02/14/2022 documented as of this encounter (statuses as of 12/14/2023) [facility] History of Past illness Narrative* Problem Noted Date Diagnosed Date Resolved Date Chest pain 07/05/2019 11/11/2020 Mixed hyperlipidemia 08/24/2018 022 Last Assessment & Plan: Assessment: controlled on Rx Mass on back 08/14/2018 11/26/2020 Overview: Added automatically from request for surgery [id number] Left-sided chest wall pain 07/17/2016 0 11/11/2020 Tear of right meniscus as current injury 10/03/2012 07/08/2019 CHF (congestive heart failure) 02/14/2022 documented as of this encounter (statuses as of 12/15/2023) [facility] History of Past illness Narrative* Problem Noted Date Diagnosed Date Resolved Date Chest pain 07/05/2019 11/11/2020 Mixed hyperlipidemia 08/24/20182 022 Last Assessment & Plan: Assessment: controlled on Rx Mass on back 08/14/2018 11/26/2020 Overview: Added automatically from request for surgery [id number] Left-sided chest wall pain 07/17/2016 0 11/11/2020 Tear of right meniscus as current injury 10/03/2012 07/08/2019 CHF (congestive heart failure) 02/14/2022 documented as of this encounter (statuses as of 12/19/2023) [facility] History of Past illness Narrative* Problem Noted Date Diagnosed Date Resolved Date Chest pain 07/05/2019 11/11/2020 Mixed hyperlipidemia 08/24/201802/14/2 022 Last Assessment & Plan: Assessment: controlled on Rx Mass on back 08/14/2018 11/26/2020 Overview: Added automatically from request for surgery [id number] Left-sided chest wall pain 07/17/2016 0 11/11/2020 Tear of right meniscus as current injury 10/03/2012 07/08/2019 CHF (congestive heart failure) 02/14/2022 documented as of this encounter (statuses as of 12/27/2023) [facility] Diagnosis Onset Date Resolution Status [id number] chronic Body mass index (BMI) 35 or more chronic CHF (congestive heart failure) chronic Mixed hyperlipidemia chronic Paroxysmal atrial fibrillation chronic Diabetes chronic Mixed hyperlipidemia chronic Morbid obesity with BMI of 45.0-49.9, adult chronic Postsurgical hypothyroidism chronic [id number] chronic Body mass index (BMI) 35 or more chronic CHF (congestive heart failure) chronic Mixed hyperlipidemia chronic Paroxysmal atrial fibrillation chronic Body mass index (BMI) 35 or more chronic CHF (congestive heart failure) chronic Rheumatoid arthritis chronic Sleep apnea [facility] Work Phone: Evaluation note* Diagnosis Elevated liver enzymes- Primary Other nonspecific abnormal serum enzyme levels Fatty metamorphosis of liver Other chronic nonalcoholic liver disease [facility] this [facility] Diagnosis Fatty metamorphosis of liver- Primary Other chronic nonalcoholic liver disease Elevated liver enzymes Other nonspecific abnormal serum enzyme levels Liver fibrosis Cirrhosis of liver without mention of alcohol Gastroesophageal reflux disease without esophagitis Esophageal reflux Diarrhea, unspecified type Hx of cholecystectomy Other acquired absence of organ [facility] Diagnosis Onset Date Resolution Status Diabetes chronic Mixed hyperlipidemia chronic Morbid obesity with BMI of 45.0-49.9, adult chronic Postsurgical hypothyroidism chronic [id number] chronic Body mass index (BMI) 35 or more chronic CHF (congestive heart failure) chronic Mixed hyperlipidemia chronic Paroxysmal atrial fibrillation chronic Body mass index (BMI) 35 or more chronic CHF (congestive heart failure) chronic Rheumatoid arthritis chronic Sleep apnea chronic Bilateral acute otitis media acute Bronchitis acute [facility] Work Phone: Evaluation note* Diagnosis DEE (dyspnea on exertion)- Primary Other dyspnea and respiratory abnormality Essential hypertension Unspecified essential hypertension Paroxysmal atrial fibrillation (HCC) Atrial fibrillation Coronary artery disease involving [place] coronary artery of [place] heart without angina pectoris Chronic diastolic CHF (congestive heart failure) (HCC) Chronic diastolic heart failure Pure hypercholesterolemia [facility]* Diagnosis DEE (dyspnea on exertion) Other dyspnea and respiratory abnormality [facility] Diagnosis Fatty metamorphosis of liver Other chronic nonalcoholic liver disease Liver fibrosis Cirrhosis of liver without mention of alcohol [facility] Diagnosis Fatty metamorphosis of liver- Primary Other chronic nonalcoholic liver disease Elevated liver enzymes Other nonspecific abnormal serum enzyme levels [facility] Diagnosis Onset Date Resolution Status Diastolic dysfunction resolv ed Bilateral acute otitis media resolved Maxillary sinusitis, acute r esolved Rheumatoid arthritis chronic Sleep apnea chronic Body mass index (BMI) 35 or more resolved FLO III (cervical intraepith elial neoplasia grade III) with severe dysplasia acute 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 acute Lichen sclerosus acute Diabetes chronic Morbid obesity with BMI of 45.0-49.9, adult chronic LLAMAS (nonalcoholic steatohepatitis) chronic Sleep apnea chronic History of breast cancer res olved Encounter for routine gynecological examination noneactive Diabetes chronic Left otitis media resolved [facility] Work Phone: Evaluation note* Diagnosis Diverticulitis- Primary Diverticulitis of colon (without mention of hemorrhage) [facility] Diagnosis Acquired hypothyroidism- Primary Unspecified hypothyroidism Controlled type 2 diabetes mellitus without complication, without long-term current use of insulin (HCC) [facility] Diagnosis Onset Date Resolution Status Diastolic dysfunction resolv ed Bilateral acute otitis media resolved Maxillary sinusitis, acute r esolved Rheumatoid arthritis chronic Sleep apnea chronic Body mass index (BMI) 35 or more resolved FLO III (cervical intraepith elial neoplasia grade III) with severe dysplasia acute 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 acute Lichen sclerosus acute Diabetes chronic Morbid obesity with BMI of 45.0-49.9, adult chronic LLAMAS (nonalcoholic steatohepatitis) chronic Sleep apnea chronic History of breast cancer res olved Encounter for routine gynecological examination noneactive Diabetes chronic Left otitis media resolved Diverticular disease acute LLAMAS (nonalcoholic steatohepatitis) chronic [facility] Work Phone: Evaluation note* Diagnosis Onset Date Resolution Status FLO III (cervical intraepith elial neoplasia grade III) with severe dysplasia acute 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 acute Lichen sclerosus acute Diabetes chronic Morbid obesity with BMI of 45.0-49.9, adult chronic LLAMAS (nonalcoholic steatohepatitis) chronic Sleep apnea chronic History of breast cancer res olved Encounter for routine gynecological examination noneactive Diabetes chronic Left otitis media resolved Diverticular disease acute LLAMAS (nonalcoholic steatohepatitis) chronic Fatigue chronic Paroxysmal atrial fibrillation chronic Pure hypercholesterolemia ch ronic Right bundle branch block (RBBB) chronic Diastolic dysfunction resolv ed [facility] Work Phone: Evaluation note* Diagnosis Onset Date Resolution Status Obesity chronic Rheumatoid arthritis chronic Sleep apnea chronic Shingles acute Type 2 diabetes mellitus with hyperglycemia acute Chronic sinusitis chronic Obesity chronic Dyspnea on exertion acute Obesity chronic Sleep apnea chronic Dyspnea on exertion acute Fatigue chronic Paroxysmal atrial fibrillation chronic Pure hypercholesterolemia ch ronic Right bundle branch block (RBBB) chronic Diastolic dysfunction resolv ed [facility] Work Phone: Evaluation note* Diagnosis Poorly controlled type 2 diabetes mellitus (HCC)- Primary Type II or unspecified type diabetes mellitus without mention of complication, not stated as uncontrolled Acquired hypothyroidism Unspecified hypothyroidism [facility] Diagnosis Controlled type 2 diabetes mellitus without complication, without long-term current use of insulin (HCC)- Primary [facility] Diagnosis Onset Date Resolution Status Dyspnea on exertion chronic Fatigue chronic Paroxysmal atrial fibrillation chronic Pure hypercholesterolemia ch ronic Right bundle branch block (RBBB) chronic Diastolic dysfunction resolv ed Rheumatoid arthritis chronic Sleep apnea chronic Body mass index (BMI) 35 or more resolved Dyspnea on exertion chronic Fatigue chronic Paroxysmal atrial fibrillation chronic Pure hypercholesterolemia ch ronic Right bundle branch block (RBBB) chronic Diastolic dysfunction resolv ed [facility] Work Phone: Evaluation note* Diagnosis Onset Date Resolution Status Rheumatoid arthritis chronic Sleep apnea chronic Body mass index (BMI) 35 or more resolved Dyspnea on exertion chronic Fatigue chronic Paroxysmal atrial fibrillation chronic Pure hypercholesterolemia ch ronic Right bundle branch block (RBBB) chronic Diastolic dysfunction resol ed FLO III (cervical intraepith elial neoplasia grade III) with severe dysplasia acute History of left breast cancer acute Lichen sclerosus acute Encounter for routine gynecological examination noneactive [facility] Work Phone: Evaluation note* Diagnosis Poorly controlled type 2 diabetes mellitus (HCC)- Primary Type II or unspecified type diabetes mellitus without mention of complication, not stated as uncontrolled [facility] Diagnosis Type 2 diabetes mellitus with diabetic polyneuropathy, without long-term current use of insulin (HCC)- Primary Postoperative hypothyroidism Postsurgical hypothyroidism Class 3 severe obesity with serious comorbidity and body mass index (BMI) of 50.0 to 59.9 in adult, unspecified obesity type (HCC) Pure hypercholesterolemia Essential hypertension Unspecified essential hypertension Coronary artery disease involving [place] coronary artery of [place] heart without angina pectoris [facility] Diagnosis Metabolic dysfunction-associated steatohepatitis (MASH)- Primary [facility]* Diagnosis Metabolic dysfunction-associated steatohepatitis (MASH)- Primary Diarrhea, unspecified type Left lower quadrant abdominal pain [facility] this [facility]* Diagnosis Metabolic dysfunction-associated steatohepatitis (MASH)- Primary [facility]* Diagnosis Left lower quadrant abdominal pain [facility] this [facility]* Diagnosis Metabolic dysfunction-associated steatohepatitis (MASH) 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 Diagnosis Pre-operative examination- Primary Preoperative examination, unspecified Lipoma of torso Paroxysmal atrial fibrillation (HCC) Atrial fibrillation Chronic diastolic heart failure (HCC) Chronic diastolic heart failure Essential hypertension Unspecified essential hypertension Gastroesophageal reflux disease without esophagitis Esophageal reflux Rheumatoid arthritis of other site, unspecified whether rheumatoid factor present (HCC) MARILIA on CPAP Obstructive sleep apnea (adult) (pediatric) Coronary artery disease involving [place] coronary artery of [place] heart without angina pectoris History of DVT (deep vein thrombosis) Personal history of venous thrombosis and embolism History of left breast cancer Controlled type 2 diabetes mellitus without complication, without long-term current use of insulin (HCC) Obesity, Class III, BMI >= 40 Morbid obesity Mixed hyperlipidemia History of colorectal cancer Type 2 diabetes mellitus with diabetic polyneuropathy, without long-term current use of insulin (HCC)- Primary documented in this encounter [facility] note* Diagnosis Pre-operative examination- Primary Preoperative examination, unspecified Lipoma of torso Paroxysmal atrial fibrillation (HCC) Atrial fibrillation Chronic diastolic heart failure (HCC) Chronic diastolic heart failure Essential hypertension Unspecified essential hypertension Gastroesophageal reflux disease without esophagitis Esophageal reflux Rheumatoid arthritis of other site, unspecified whether rheumatoid factor present (HCC) MARILIA on CPAP Obstructive sleep apnea (adult) (pediatric) Coronary artery disease involving [place] coronary artery of [place] heart without angina pectoris History of DVT (deep vein thrombosis) Personal history of venous thrombosis and embolism History of left breast cancer Controlled type 2 diabetes mellitus without complication, without long-term current use of insulin (HCC) Obesity, Class III, BMI >= 40 Morbid obesity Mixed hyperlipidemia History of colorectal cancer Type 2 diabetes mellitus with hyperglycemia, without long-term current use of insulin (HCC)- Primary documented in this encounter [facility] note* Diagnosis Pre-operative examination- Primary Preoperative examination, unspecified Lipoma of torso Paroxysmal atrial fibrillation (HCC) Atrial fibrillation Chronic diastolic heart failure (HCC) Chronic diastolic heart failure Essential hypertension Unspecified essential hypertension Gastroesophageal reflux disease without esophagitis Esophageal reflux Rheumatoid arthritis of other site, unspecified whether rheumatoid factor present (HCC) MARILIA on CPAP Obstructive sleep apnea (adult) (pediatric) Coronary artery disease involving [place] coronary artery of [place] heart without angina pectoris History of DVT (deep vein thrombosis) Personal history of venous thrombosis and embolism History of left breast cancer Controlled type 2 diabetes mellitus without complication, without long-term current use of insulin (HCC) Obesity, Class III, BMI >= 40 Morbid obesity Mixed hyperlipidemia History of colorectal cancer Diverticulitis Diverticulitis of colon (without mention of hemorrhage) Nausea Nausea alone documented in this encounter [facility] note* Diagnosis Pre-operative examination- Primary Preoperative examination, unspecified Lipoma of torso Paroxysmal atrial fibrillation (HCC) Atrial fibrillation Chronic diastolic heart failure (HCC) Chronic diastolic heart failure Essential hypertension Unspecified essential hypertension Gastroesophageal reflux disease without esophagitis Esophageal reflux Rheumatoid arthritis of other site, unspecified whether rheumatoid factor present (HCC) MARILIA on CPAP Obstructive sleep apnea (adult) (pediatric) Coronary artery disease involving [place] coronary artery of [place] heart without angina pectoris History of DVT (deep vein thrombosis) Personal history of venous thrombosis and embolism History of left breast cancer Controlled type 2 diabetes mellitus without complication, without long-term current use of insulin (HCC) Obesity, Class III, BMI >= 40 Morbid obesity Mixed hyperlipidemia History of colorectal cancer Pain Generalized pain documented in this encounter [facility] note* Diagnosis Pre-operative examination- Primary Preoperative examination, unspecified Lipoma of torso Paroxysmal atrial fibrillation (HCC) Atrial fibrillation Chronic diastolic heart failure (HCC) Chronic diastolic heart failure Essential hypertension Unspecified essential hypertension Gastroesophageal reflux disease without esophagitis Esophageal reflux Rheumatoid arthritis of other site, unspecified whether rheumatoid factor present (HCC) MARILIA on CPAP Obstructive sleep apnea (adult) (pediatric) Coronary artery disease involving [place] coronary artery of [place] heart without angina pectoris History of DVT (deep vein thrombosis) Personal history of venous thrombosis and embolism History of left breast cancer Controlled type 2 diabetes mellitus without complication, without long-term current use of insulin (HCC) Obesity, Class III, BMI >= 40 Morbid obesity Mixed hyperlipidemia History of colorectal cancer Primary osteoarthritis of left knee- Primary Primary localized osteoarthrosis, lower leg BMI 50.0-59.9, adult (HCC) Body Mass Index 50.0-59.9, adult Elevated hemoglobin A1c Other abnormal blood chemistry [facility]* Diagnosis Pre-operative examination- Primary Preoperative examination, unspecified Lipoma of torso Paroxysmal atrial fibrillation (HCC) Atrial fibrillation Chronic diastolic heart failure (HCC) Chronic diastolic heart failure Essential hypertension Unspecified essential hypertension Gastroesophageal reflux disease without esophagitis Esophageal reflux Rheumatoid arthritis of other site, unspecified whether rheumatoid factor present (HCC) MARILIA on CPAP Obstructive sleep apnea (adult) (pediatric) Coronary artery disease involving [place] coronary artery of [place] heart without angina pectoris History of DVT (deep vein thrombosis) Personal history of venous thrombosis and embolism History of left breast cancer Controlled type 2 diabetes mellitus without complication, without long-term current use of insulin (HCC) Obesity, Class III, BMI >= 40 Morbid obesity Mixed hyperlipidemia History of colorectal cancer Primary osteoarthritis of left knee- Primary Primary localized osteoarthrosis, lower leg [facility] Diagnosis Pre-operative examination- Primary Preoperative examination, unspecified Lipoma of torso Paroxysmal atrial fibrillation (HCC) Atrial fibrillation Chronic diastolic heart failure (HCC) Chronic diastolic heart failure Essential hypertension Unspecified essential hypertension Gastroesophageal reflux disease without esophagitis Esophageal reflux Rheumatoid arthritis of other site, unspecified whether rheumatoid factor present (HCC) MARILIA on CPAP Obstructive sleep apnea (adult) (pediatric) Coronary artery disease involving [place] coronary artery of [place] heart without angina pectoris History of DVT (deep vein thrombosis) Personal history of venous thrombosis and embolism History of left breast cancer Controlled type 2 diabetes mellitus without complication, without long-term current use of insulin (HCC) Obesity, Class III, BMI >= 40 Morbid obesity Mixed hyperlipidemia History of colorectal cancer Bilateral primary osteoarthritis of knee- Primary documented in this encounter [facility] note* Diagnosis Pre-operative examination- Primary Preoperative examination, unspecified Lipoma of torso Paroxysmal atrial fibrillation (HCC) Atrial fibrillation Chronic diastolic heart failure (HCC) Chronic diastolic heart failure Essential hypertension Unspecified essential hypertension Gastroesophageal reflux disease without esophagitis Esophageal reflux Rheumatoid arthritis of other site, unspecified whether rheumatoid factor present (HCC) MARILIA on CPAP Obstructive sleep apnea (adult) (pediatric) Coronary artery disease involving [place] coronary artery of [place] heart without angina pectoris History of DVT (deep vein thrombosis) Personal history of venous thrombosis and embolism History of left breast cancer Controlled type 2 diabetes mellitus without complication, without long-term current use of insulin (HCC) Obesity, Class III, BMI >= 40 Morbid obesity Mixed hyperlipidemia History of colorectal cancer Bilateral primary osteoarthritis of knee- Primary documented in this encounter [facility] note* Diagnosis Pre-operative examination- Primary Preoperative examination, unspecified Lipoma of torso Paroxysmal atrial fibrillation (HCC) Atrial fibrillation Chronic diastolic heart failure (HCC) Chronic diastolic heart failure Essential hypertension Unspecified essential hypertension Gastroesophageal reflux disease without esophagitis Esophageal reflux Rheumatoid arthritis of other site, unspecified whether rheumatoid factor present (HCC) MARILIA on CPAP Obstructive sleep apnea (adult) (pediatric) Coronary artery disease involving [place] coronary artery of [place] heart without angina pectoris History of DVT (deep vein thrombosis) Personal history of venous thrombosis and embolism History of left breast cancer Controlled type 2 diabetes mellitus without complication, without long-term current use of insulin (HCC) Obesity, Class III, BMI >= 40 Morbid obesity Mixed hyperlipidemia History of colorectal cancer Postoperative hypothyroidism- Primary Postsurgical hypothyroidism documented in this encounter [facility] note* Diagnosis Pre-operative examination- Primary Preoperative examination, unspecified Lipoma of torso Paroxysmal atrial fibrillation (HCC) Atrial fibrillation Chronic diastolic heart failure (HCC) Chronic diastolic heart failure Essential hypertension Unspecified essential hypertension Gastroesophageal reflux disease without esophagitis Esophageal reflux Rheumatoid arthritis of other site, unspecified whether rheumatoid factor present (HCC) MARILIA on CPAP Obstructive sleep apnea (adult) (pediatric) Coronary artery disease involving [place] coronary artery of [place] heart without angina pectoris History of DVT (deep vein thrombosis) Personal history of venous thrombosis and embolism History of left breast cancer Controlled type 2 diabetes mellitus without complication, without long-term current use of insulin (HCC) Obesity, Class III, BMI >= 40 Morbid obesity Mixed hyperlipidemia History of colorectal cancer Postoperative hypothyroidism Postsurgical hypothyroidism documented [facility] this [facility]* Diagnosis Pre-operative examination- Primary Preoperative examination, unspecified Lipoma of torso Paroxysmal atrial fibrillation (HCC) Atrial fibrillation Chronic diastolic heart failure (HCC) Chronic diastolic heart failure Essential hypertension Unspecified essential hypertension Gastroesophageal reflux disease without esophagitis Esophageal reflux Rheumatoid arthritis of other site, unspecified whether rheumatoid factor present (HCC) MARILIA on CPAP Obstructive sleep apnea (adult) (pediatric) Coronary artery disease involving [place] coronary artery of [place] heart without angina pectoris History of DVT (deep vein thrombosis) Personal history of venous thrombosis and embolism History of left breast cancer Controlled type 2 diabetes mellitus without complication, without long-term current use of insulin (HCC) Obesity, Class III, BMI >= 40 Morbid obesity Mixed hyperlipidemia History of colorectal cancer Type 2 diabetes mellitus with diabetic polyneuropathy, without long-term current use of insulin ([facility])- Primary Postoperative hypothyroidism Postsurgical hypothyroidism Class 3 severe obesity with serious comorbidity and body mass index (BMI) of 50.0 to 59.9 in adult, unspecified obesity type (HCC) Pure hypercholesterolemia Essential hypertension Unspecified essential hypertension Coronary artery disease involving [place] coronary artery of [place] heart without angina pectoris documented in this encounter [facility] note* Diagnosis Pre-operative examination- Primary Preoperative examination, unspecified Lipoma of torso Paroxysmal atrial fibrillation (HCC) Atrial fibrillation Chronic diastolic heart failure (HCC) Chronic diastolic heart failure Essential hypertension Unspecified essential hypertension Gastroesophageal reflux disease without esophagitis Esophageal reflux Rheumatoid arthritis of other site, unspecified whether rheumatoid factor present (HCC) MARILIA on CPAP Obstructive sleep apnea (adult) (pediatric) Coronary artery disease involving [place] coronary artery of [place] heart without angina pectoris History of DVT (deep vein thrombosis) Personal history of venous thrombosis and embolism History of left breast cancer Controlled type 2 diabetes mellitus without complication, without long-term current use of insulin (HCC) Obesity, Class III, BMI >= 40 Morbid obesity Mixed hyperlipidemia History of colorectal cancer Type 2 diabetes mellitus with diabetic polyneuropathy, without long-term current use of insulin (HCC)- Primary documented in this encounter [facility] note* Diagnosis Pre-operative examination- Primary Preoperative examination, unspecified Lipoma of torso Paroxysmal atrial fibrillation (HCC) Atrial fibrillation Chronic diastolic heart failure (HCC) Chronic diastolic heart failure Essential hypertension Unspecified essential hypertension Gastroesophageal reflux disease without esophagitis Esophageal reflux Rheumatoid arthritis of other site, unspecified whether rheumatoid factor present (HCC) MARILIA on CPAP Obstructive sleep apnea (adult) (pediatric) Coronary artery disease involving [place] coronary artery of [place] heart without angina pectoris History of DVT (deep vein thrombosis) Personal history of venous thrombosis and embolism History of left breast cancer Controlled type 2 diabetes mellitus without complication, without long-term current use of insulin ([facility]) Obesity, Class III, BMI >= 40 Morbid obesity Mixed hyperlipidemia History of colorectal cancer Postoperative hypothyroidism Postsurgical hypothyroidism documented [facility] this [facility]* Diagnosis Pre-operative examination- Primary Preoperative examination, unspecified Lipoma of torso Paroxysmal atrial fibrillation (HCC) Atrial fibrillation Chronic diastolic heart failure (HCC) Chronic diastolic heart failure Essential hypertension Unspecified essential hypertension Gastroesophageal reflux disease without esophagitis Esophageal reflux Rheumatoid arthritis of other site, unspecified whether rheumatoid factor present (HCC) MARILIA on CPAP Obstructive sleep apnea (adult) (pediatric) Coronary artery disease involving [place] coronary artery of [place] heart without angina pectoris History of DVT (deep vein thrombosis) Personal history of venous thrombosis and embolism History of left breast cancer Controlled type 2 diabetes mellitus without complication, without long-term current use of insulin ([facility]) Obesity, Class III, BMI >= 40 Morbid obesity Mixed hyperlipidemia History of colorectal cancer Type 2 diabetes mellitus with diabetic polyneuropathy, without long-term current use of insulin ([facility])- Primary Postoperative hypothyroidism Postsurgical hypothyroidism Class 3 severe obesity with serious comorbidity and body mass index (BMI) of 45.0 to 49.9 in adult, unspecified obesity type Pure hypercholesterolemia Essential hypertension Unspecified essential hypertension Coronary artery disease involving [place] coronary artery of [place] heart without angina pectoris documented in this encounter [facility] note* Diagnosis Pre-operative examination- Primary Preoperative examination, unspecified Lipoma of torso Paroxysmal atrial fibrillation (HCC) Atrial fibrillation Chronic diastolic heart failure (HCC) Chronic diastolic heart failure Essential hypertension Unspecified essential hypertension Gastroesophageal reflux disease without esophagitis Esophageal reflux Rheumatoid arthritis of other site, unspecified whether rheumatoid factor present (HCC) MARILIA on CPAP Obstructive sleep apnea (adult) (pediatric) Coronary artery disease involving [place] coronary artery of [place] heart without angina pectoris History of DVT (deep vein thrombosis) Personal history of venous thrombosis and embolism History of left breast cancer Controlled type 2 diabetes mellitus without complication, without long-term current use of insulin ([facility]) Obesity, Class III, BMI >= 40 Morbid obesity Mixed hyperlipidemia History of colorectal cancer Diverticulitis- Primary Diverticulitis of colon (without mention of hemorrhage) Diverticulitis Diverticulitis of colon (without mention of hemorrhage) [facility] Diagnosis Pre-operative examination- Primary Preoperative examination, unspecified Lipoma of torso Paroxysmal atrial fibrillation (HCC) Atrial fibrillation Chronic diastolic heart failure (HCC) Chronic diastolic heart failure Essential hypertension Unspecified essential hypertension Gastroesophageal reflux disease without esophagitis Esophageal reflux Rheumatoid arthritis of other site, unspecified whether rheumatoid factor present (HCC) MARILIA on CPAP Obstructive sleep apnea (adult) (pediatric) Coronary artery disease involving [place] coronary artery of [place] heart without angina pectoris History of DVT (deep vein thrombosis) Personal history of venous thrombosis and embolism History of left breast cancer Controlled type 2 diabetes mellitus without complication, without long-term current use of insulin (HCC) Obesity, Class III, BMI >= 40 Morbid obesity Mixed hyperlipidemia History of colorectal cancer Type 2 diabetes mellitus with diabetic polyneuropathy, without long-term current use of insulin (HCC)- Primary Pure hypercholesterolemia Essential hypertension Unspecified essential hypertension Coronary artery disease involving [place] coronary artery of [place] heart without angina pectoris Chronic diastolic CHF (congestive heart failure) (HCC) Chronic diastolic heart failure MARILIA on CPAP Obstructive sleep apnea (adult) (pediatric) Nonalcoholic fatty liver disease without nonalcoholic steatohepatitis ([facility]) Gastroesophageal reflux disease without esophagitis Esophageal reflux Acute diverticulitis Diverticulitis of colon (without mention of hemorrhage) Rheumatoid arthritis of other site, unspecified whether rheumatoid factor present (HCC) Postoperative hypothyroidism Postsurgical hypothyroidism History of DVT (deep vein thrombosis) Personal history of venous thrombosis and embolism Headaches Anxiety and depression Dysthymic disorder Dyspnea, unspecified type History of left breast cancer UTI symptoms Other symptoms involving urinary system Dysuria Post-operative nausea and vomiting Nausea with vomiting Atrial fibrillation, unspecified type (HCC) 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 Long-term (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 Obesity, Class III, BMI >= 40 Morbid obesity Diverticulitis Diverticulitis of colon (without mention of hemorrhage) [facility] Diagnosis Pre-operative examination- Primary Preoperative examination, unspecified Lipoma of torso Paroxysmal atrial fibrillation (HCC) Atrial fibrillation Chronic diastolic heart failure (HCC) Chronic diastolic heart failure Essential hypertension Unspecified essential hypertension Gastroesophageal reflux disease without esophagitis Esophageal reflux Rheumatoid arthritis of other site, unspecified whether rheumatoid factor present (HCC) MARILIA on CPAP Obstructive sleep apnea (adult) (pediatric) Coronary artery disease involving [place] coronary artery of [place] heart without angina pectoris History of DVT (deep vein thrombosis) Personal history of venous thrombosis and embolism History of left breast cancer Controlled type 2 diabetes mellitus without complication, without long-term current use of insulin (HCC) Obesity, Class III, BMI >= 40 Morbid obesity Mixed hyperlipidemia History of colorectal cancer Diverticulitis- Primary Diverticulitis of colon (without mention of hemorrhage) Nausea and vomiting, unspecified vomiting type Diarrhea, unspecified type Diverticulitis Diverticulitis of colon (without mention of hemorrhage) documented [facility] Diagnosis Pre-operative examination- Primary Preoperative examination, unspecified Lipoma of torso Paroxysmal atrial fibrillation (HCC) Atrial fibrillation Chronic diastolic heart failure (HCC) Chronic diastolic heart failure Essential hypertension Unspecified essential hypertension Gastroesophageal reflux disease without esophagitis Esophageal reflux Rheumatoid arthritis of other site, unspecified whether rheumatoid factor present (HCC) MARILIA on CPAP Obstructive sleep apnea (adult) (pediatric) Coronary artery disease involving [place] coronary artery of [place] heart without angina pectoris History of DVT (deep vein thrombosis) Personal history of venous thrombosis and embolism History of left breast cancer Controlled type 2 diabetes mellitus without complication, without long-term current use of insulin (HCC) Obesity, Class III, BMI >= 40 Morbid obesity Mixed hyperlipidemia History of colorectal cancer Type 2 diabetes mellitus with diabetic polyneuropathy, without long-term current use of insulin (HCC)- Primary Diverticulitis Diverticulitis of colon (without mention of hemorrhage) [facility] Diagnosis Pre-operative examination- Primary Preoperative examination, unspecified Lipoma of torso Paroxysmal atrial fibrillation (HCC) Atrial fibrillation Chronic diastolic heart failure (HCC) Chronic diastolic heart failure Essential hypertension Unspecified essential hypertension Gastroesophageal reflux disease without esophagitis Esophageal reflux Rheumatoid arthritis of other site, unspecified whether rheumatoid factor present (HCC) MARILIA on CPAP Obstructive sleep apnea (adult) (pediatric) Coronary artery disease involving [place] coronary artery of [place] heart without angina pectoris History of DVT (deep vein thrombosis) Personal history of venous thrombosis and embolism History of left breast cancer Controlled type 2 diabetes mellitus without complication, without long-term current use of insulin (HCC) Obesity, Class III, BMI >= 40 Morbid obesity Mixed hyperlipidemia History of colorectal cancer Type 2 diabetes mellitus with diabetic polyneuropathy, without long-term current use of insulin (HCC)- Primary Pure hypercholesterolemia Essential hypertension Unspecified essential hypertension Coronary artery disease involving [place] coronary artery of [place] heart without angina pectoris Chronic diastolic CHF (congestive heart failure) (HCC) Chronic diastolic heart failure Paroxysmal atrial fibrillation (HCC) Atrial fibrillation MARILIA on CPAP Obstructive sleep apnea (adult) (pediatric) Dyspnea, unspecified type Post-operative nausea and vomiting Nausea with vomiting Nonalcoholic fatty liver disease without nonalcoholic steatohepatitis ([facility]) History of colorectal cancer Gastroesophageal reflux disease without esophagitis Esophageal reflux Postoperative hypothyroidism Postsurgical hypothyroidism History of left breast cancer Rheumatoid arthritis of other site, unspecified whether rheumatoid factor present (HCC) Anxiety and depression Dysthymic disorder Obesity, Class III, BMI >= 40 Morbid obesity History of DVT (deep vein thrombosis) Personal history of venous thrombosis and embolism 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 Long-term (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 Diverticulitis Diverticulitis of colon (without mention of hemorrhage) [facility] Diagnosis Pre-operative examination- Primary Preoperative examination, unspecified Lipoma of torso Paroxysmal atrial fibrillation (HCC) Atrial fibrillation Chronic diastolic heart failure (HCC) Chronic diastolic heart failure Essential hypertension Unspecified essential hypertension Gastroesophageal reflux disease without esophagitis Esophageal reflux Rheumatoid arthritis of other site, unspecified whether rheumatoid factor present (HCC) MARILIA on CPAP Obstructive sleep apnea (adult) (pediatric) Coronary artery disease involving [place] coronary artery of [place] heart without angina pectoris History of DVT (deep vein thrombosis) Personal history of venous thrombosis and embolism History of left breast cancer Controlled type 2 diabetes mellitus without complication, without long-term current use of insulin (HCC) Obesity, Class III, BMI >= 40 Morbid obesity Mixed hyperlipidemia History of colorectal cancer Diverticulitis Diverticulitis of colon (without mention of hemorrhage) Nausea and vomiting, unspecified vomiting type Diarrhea, unspecified type Diverticulitis Diverticulitis of colon (without mention of hemorrhage) documented [facility] Diagnosis Pre-operative examination- Primary Preoperative examination, unspecified Lipoma of torso Paroxysmal atrial fibrillation (HCC) Atrial fibrillation Chronic diastolic heart failure (HCC) Chronic diastolic heart failure Essential hypertension Unspecified essential hypertension Gastroesophageal reflux disease without esophagitis Esophageal reflux Rheumatoid arthritis of other site, unspecified whether rheumatoid factor present (HCC) MARILIA on CPAP Obstructive sleep apnea (adult) (pediatric) Coronary artery disease involving [place] coronary artery of [place] heart without angina pectoris History of DVT (deep vein thrombosis) Personal history of venous thrombosis and embolism History of left breast cancer Controlled type 2 diabetes mellitus without complication, without long-term current use of insulin (HCC) Obesity, Class III, BMI >= 40 Morbid obesity Mixed hyperlipidemia History of colorectal cancer Diverticulitis Diverticulitis of colon (without mention of hemorrhage) documented in [facility] encounter [facility] Patient's home Plan of care note* Visit Details Visit Type -SN SOC IV Discipline -Prison Problems Problem Description Start Date Status Goals Interve ntions Medication Education Disciplines: Skilled Services 03/21/2025 Active 1 goal linked to scheduled/document ed intervention 1 goal intervention scheduled/documente d in this visit Physician Specific Parameters Disciplines: Skilled Services 03/21/2025 Active 1 goal linked to scheduled/document ed intervention 1 goal intervention scheduled/documente d in this visit Risk for Falls Disciplines: Skilled Services 03/21/2025 Active 1 goal linked to scheduled/document ed intervention 1 goal intervention scheduled/documente d in this visit Pain Disciplines: Skilled Services 03/21/2025 Active 1 goal linked to scheduled/document ed intervention 1 goal intervention scheduled/documente d in this visit High Risk Medications Disciplines: Skilled Services 03/21/2025 Active 1 goal linked to scheduled/document ed intervention 4 goal interventions scheduled/documente d in this visit SN IV THERAPY Disciplines: 03/21/2025 Active 1 goal linked to scheduled/document ed intervention 1 goal intervention scheduled/documente d in this visit SN Heart Failure Disciplines: 03/21/2025 Active 1 goal linked to scheduled/document ed intervention 1 goal intervention scheduled/documente d in this visit SN Diabetes Disciplines: 03/21/2025 Active 1 goal linked to scheduled/document ed intervention 1 goal intervention scheduled/documente d in this visit SN Learning Assessment Disciplines: 03/21/2025 Active 1 goal linked to scheduled/document ed intervention 1 goal intervention scheduled/documente d in this visit SN Gastrointestina l Disciplines: 03/21/2025 Active 1 goal linked to scheduled/document ed intervention 1 goal intervention scheduled/documente d in this visit Sepsis Disciplines: Skilled Services 03/21/2025 Active 1 goal linked to scheduled/document ed intervention 1 goal intervention scheduled/documente d in this visit Goals Goal Associated Problem Outcome Goal Met? Visit Notes Patient/caregiver will demonstrate ability to obtain, store, identify and administer ordered medications, keep accurate medication list in home, and adhere to medication schedule Description: Patient/caregiver will demonstrate ability to obtain, store, identify and administer ordered medications, keep accurate medication list in home, and adhere to medication schedule by 05/19/25. Medication Education No Patient to maintain parameters within physician-specified ranges throughout certification period Physician Specific Parameters No Manage Risk for falls Description: Patient/caregiver will verbalize knowledge of individualized fall prevention strategies by 05/19/25. Risk for Falls No Manage Pain Description: Patient/caregiver will verbalize knowledge and understanding of appropriate techniques to control pain, including pain medication and non-pharmacological techniques. Patient will verbalize or demonstrate an acceptable level of pain as evidenced by a pain score of 0/10 and improvement in ability to perform activities of daily living to be achieved by 05/19/25. Pain No Patient/caregiver will teach back high risk medication side effect and precaution education Description: STG Patient/caregiver will verbalize understanding of high risk medication side effects and precautions to be achieved by 03/24/25. LTG Patient/caregiver will continue to verbalize understanding of high risk medication side effects and precautions throughout certification period. High Risk Medications No Patient/Caregiver will remain free of IV therapy complications Description: Patient/caregiver will verbalize understanding of infusion therapy & demonstrate appropriate access device management as evidenced by patient remaining free of IV complications by CoPat end date of 03/27/25. SN IV THERAPY No Improved management of Heart Failure Description: Improve HF management as evidenced by stable weights, reduced edema, and less symptoms reported by patient to be achieved by 05/19/25. SN Heart Failure No Improved management of diabetes Description: Improve diabetic management as evidenced by patient/caregiver able to teach back diabetic management strategies by 05/19/25. SN Diabetes No Demonstrate understanding of education Description: Patient and/or caregiver will verbalize understanding of educational instruction provided throughout certification period. SN Learning Assessment No Improved management of GI disease/condition Description: Patient/Caregiver will demonstrate understanding of GI education as evidenced by improved management of gastrointestinal disease/condition by 05/19/25. SN Gastrointestinal No Patient/caregiver will be able to identify and report symptoms of sepsis Description: Patient/caregiver will be able to identify signs/symptoms of sepsis infection and will verbalize actions to take if suspected by 05/19/25. Sepsis No Interventions Intervention Associated Problem/Goal Status Variance Visit Notes Medication Education Description: Evaluate/instruct patient/caregiver on obtaining, storing, identifying and administering ordered medications as well as keeping accurate medication list in the home and adhereing to medication schedule Problem:Medication Education Goal:Patient/caregiver will demonstrate ability to obtain, store, identify and administer ordered medications, keep accurate medication list in home, and adhere to medication schedule Completed Patient instructed on importance of keeping accurate medication list in home, need to take up-to-date medication list to all medical provider appointments, adhering to medication schedule and proper storage of medications. SPO2 Description: Notify Leonora Davalos, [employer].SALES AND MARKETING ASSISTANT if pulse ox is <92% at rest. Problem:Physician Specific Parameters Goal:Patient to maintain parameters within physician-specified ranges throughout certification period Completed Instruct on individual fall risk factors and strategies to prevent falls and injuries caused by falls. Problem:Risk for Falls Goal:Manage Risk for falls Completed SN: Patient instructed on Eliminating Environmental Hazards: Keep pathways clear, Keep pets out of pathways, Remove unsafe rugs, Install hand rails/grab bars and Wear supportive shoes or non-skid socks Instruct on pain and instruct on strategies to control pain Problem:Pain Goal:Manage Pain Completed patient instructed on techniques to control pain including Pharmacological measures. Opioids- educated on high risk medication Problem:High Risk Medications Goal:Patient/caregiver will teach back high risk medication side effect and precaution education Completed patient educated on taking medication(s) as prescribed by provider. Do not stop medication or alter doses without speaking with your provider. Discuss medication effectiveness or side effect concerns with your provider and home care team. Only take opioids as prescribed, do not share your medications, and take proper precautions in storing and properly disposing of opioids once no longer needed. Possible side effects of opioid medication including sedation, decreased rate of breathing, and constipation. Report over sedation to prescribing provider and practice deep breathing techniques every hour while awake. Prevent constipation by increasing water and fiber intake, increasing activity as tolerated, and use stool softener(s) as prescribed. Hypoglycemic (including insulin)- educated on high risk medication Problem:High Risk Medications Goal:Patient/caregiver will teach back high risk medication side effect and precaution education Completed patient educated on taking medication(s) as prescribed by provider. Do not stop medication or skip/alter doses without speaking with your provider. Discuss medication effectiveness or side effect concerns with your provider and home care team. Check blood sugars and keep log as ordered by provider. Monitor for side effects of hypoglycemia such as increased weakness or shaking, moist skin, sweating, fast heartbeat, dizziness, sudden hunger, confusion, pale skin, numbness in mouth or tongue, irritability, nervousness, unsteadiness, nightmares, bad dreams, and restless sleep. Checking your blood sugar routinely and eating a consistent diabetic diet can help regulate blood sugars and reduce side effects. Antibiotic- educated on high risk medication Problem:High Risk Medications Goal:Patient/caregiver will teach back high risk medication side effect and precaution education Completed patient educated on taking medication(s) as prescribed by provider. Do not stop medication or alter doses without speaking with your provider. Discuss medication effectiveness or side effect concerns with your provider and home care team. Take the full dispensed amount even if you start feeling better, as bacteria can become resistant to antibiotic treatment if you do not finish your prescription. Common side effects are upset stomach and diarrhea. Take your antibiotics with food unless otherwise indicated to help with indigestion. Taking an fukd-cpe-kgprgrm probiotic or eating yogurt with live and active cultures three times a day can help prevent antibiotic-associated diarrhea. Call your provider immediately if you develop rashes or hives as this could be a delayed allergic reaction. Seek emergency treatment if you develop severe allergic reaction symptoms such as mouth or tongue swelling. Anticoagulant- educated on high risk medication Problem:High Risk Medications Goal:Patient/caregiver will teach back high risk medication side effect and precaution education Completed patient educated on anticoagulant medication eliquis Take your medication as instructed and at the same time each day. Do not stop medication or alter doses without speaking with your provider. Discuss medication effectiveness or side effect concerns with your provider and home care team. Discuss all medications you are taking, even qrbj-paw-xwaopsc medicines, with your provider and pharmacist since many drugs can interact with 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. Tell anyone providing medical or dental care that you are taking an anticoagulant. DO NOT STOP your medication even for a minor procedure like dental work without first checking with the provider. If you forget to take a dose, DO NOT take a double dose. Take the missed dose as soon as possible on the same day. DO NOT take a double dose the next day to make up for the missed dose. Watch for signs of abnormal or excessive bleeding and bruising (refer to Bleeding Precautions education). Call your health care provider right away if you suspect something is wrong. Instruct patient/cargiver on management of infusion and access device Problem:SN IV THERAPY Goal:Patient/Caregiver will remain free of IV therapy complications Completed patient instructed on the following: name, purpose and goal of infusion therapy, how to contact [facility], how and when to contact the pharmacy, aseptic handling and maintaining a clean area for infusion therapy supplies, preparation and administration of infusion and safe handling, storage and disposal of infusion therapy supplies, medications, flushes and hazardous waste C. Maintenance Heart Failure Description: Reinforce acute and sub-acute management education. Instruct patient/caregiver on zone sheet, living with heart failure, effect of HF on sexual relationships, stress management, emotional health and additional HF resources available as found in the HF binder. Problem:SN Heart Failure Goal:Improved management of Heart Failure Completed Reinforced acute and sub-acute management education. patient assessed and instructed on zone sheet as found in the HF binder. Instruct on diabetes disease process and management of chronic condition Description: Patient has needs for education of diabetes. Problem:SN Diabetes Goal:Improved management of diabetes Completed patient assessed and instructed on diabetes disease process as found in the diabetes self-care booklets. Instruct and educate on knowledge deficits Problem:SN Learning Assessment Goal:Demonstrate understanding of education Completed patient verbalize and/or demonstrate understanding of nursing education completed today. Education methods include: verbal cues. Further education required to improve knowledge and compliance with fall prevention/home safety strategies. Inflammatory Bowel Disease: Instruct patient/caregiver on measures to manage symptoms and prevent exacerbations Description: Instruct patient/caregiver on inflammatory bowel disease of Irritable Bowel Syndrome and Diverticulitis. Problem:SN Gastrointestinal Goal:Improved management of GI disease/condition Completed patient instructed on the following: take medications as prescribed, eat a low residue diet and avoid dairy products, fiber-rich foods such as fresh fruits, vegetables and whole grains and avoid dehydration and drink plenty of water Risk of Sepsis Description: Patient is at risk for sepsis. Monitor closely for s/s of sepsis. Problem:Sepsis Goal:Patient/caregiver will be able to identify and report symptoms of sepsis Completed [facility] Visit Details Visit Type -SN ROUTINE IV Discipline -Prison Problems Problem Description Start Date Status Goals Interve ntions Medication Education Disciplines: Skilled Services 03/21/2025 Active 1 goal linked to scheduled/document ed intervention 1 goal intervention scheduled/documente d in this visit Physician Specific Parameters Disciplines: Skilled Services 03/21/2025 Active 1 goal linked to scheduled/document ed intervention 1 goal intervention scheduled/documente d in this visit High Risk Medications Disciplines: Skilled Services 03/21/2025 Active 1 goal linked to scheduled/document ed intervention 1 goal intervention scheduled/documente d in this visit Discharge Disciplines: Skilled Services 03/21/2025 Active 1 goal linked to scheduled/document ed intervention 1 goal intervention scheduled/documente d in this visit SN Heart Failure Disciplines: SN 03/21/2025 Active 1 goal linked to scheduled/document ed intervention 1 goal intervention scheduled/documente d in this visit Goals Goal Associated Problem Outcome Goal Met? Visit Notes Patient/caregiver will demonstrate ability to obtain, store, identify and administer ordered medications, keep accurate medication list in home, and adhere to medication schedule Description: Patient/caregiver will demonstrate ability to obtain, store, identify and administer ordered medications, keep accurate medication list in home, and adhere to medication schedule by 05/19/25. Medication Education No Patient to maintain parameters within physician-specified ranges throughout certification period Physician Specific Parameters No Patient/caregiver will teach back high risk medication side effect and precaution education Description: STG Patient/caregiver will verbalize understanding of high risk medication side effects and precautions to be achieved by 03/24/25. LTG Patient/caregiver will continue to verbalize understanding of high risk medication side effects and precautions throughout certification period. High Risk Medications No Manage discharge planning Description: Patient/caregiver will verbalize understanding of ongoing discharge plan provided related to disease management, arrangements for outpatient and/or community services, obtaining medications, supplies, and DME, as needed throughout certification period. Discharge No Improved management of Heart Failure Description: Improve HF management as evidenced by stable weights, reduced edema, and less symptoms reported by patient to be achieved by 05/19/25. SN Heart Failure No Interventions Intervention Associated Problem/Goal Status Variance Visit Notes Medication Education Description: Evaluate/instruct patient/caregiver on obtaining, storing, identifying and administering ordered medications as well as keeping accurate medication list in the home and adhereing to medication schedule Problem:Medication Education Goal:Patient/caregive r will demonstrate ability to obtain, store, identify and administer ordered medications, keep accurate medication list in home, and adhere to medication schedule Completed Patient instructed on importance of keeping accurate medication list in home, need to take up-to-date medication list to all medical provider appointments, adhering to medication schedule, proper storage of medications, medication, route, dose, frequency, purpose, and side effects of medications, disposing of old and out of date medications and how to order refills. SPO2 Description: Notify Leonora Davalos APRN.SALES AND MARKETING ASSISTANT if pulse ox is <92% at rest. Problem:Physician Specific Parameters Goal:Patient to maintain parameters within physician-specified ranges throughout certification period Completed Anticoagulant- educated on high risk medication Problem:High Risk Medications Goal:Patient/caregive r will teach back high risk medication side effect and precaution education Completed patient educated on anticoagulant medication Eliquis Take your medication as instructed and at the same time each day. Do not stop medication or alter doses without speaking with your provider. Discuss medication effectiveness or side effect concerns with your provider and home care team. Discuss all medications you are taking, even yiha-gzf-yqtipzz medicines, with your provider and pharmacist since many drugs can interact with 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. Tell anyone providing medical or dental care that you are taking an anticoagulant. DO NOT STOP your medication even for a minor procedure like dental work without first checking with the provider. If you forget to take a dose, DO NOT take a double dose. Take the missed dose as soon as possible on the same day. DO NOT take a double dose the next day to make up for the missed dose. Watch for signs of abnormal or excessive bleeding and bruising (refer to Bleeding Precautions education). Call your health care provider right away if you suspect something is wrong. Instruct on ongoing discharge plan Problem:Discharge Goal:Manage discharge planning Completed Ongoing Discharge plan: Discharge plan discussed with patient including frequency and duration for home SN and plan for transition to: live independently at home without ongoing services. C. Maintenance Heart Failure Description: Reinforce acute and sub-acute management education. Instruct patient/caregiver on zone sheet, living with heart failure, effect of HF on sexual relationships, stress management, emotional health and additional HF resources available as found in the HF binder. Problem:SN Heart Failure Goal:Improved management of Heart Failure Completed Reinforced acute and sub-acute management education. patient assessed and reinforced on zone sheet, living with heart failure, stress management and emotional health as found in the HF binder. documented in this encounter [facility] home Plan of care note* Visit Details Visit Type -SN ROUTINE IV Discipline -Prison Problems Problem Description Start Date Status Goals Interve ntions Medication Education Disciplines: Skilled Services 03/21/2025 Active 1 goal linked to scheduled/document ed intervention 1 goal intervention scheduled/documente d in this visit Physician Specific Parameters Disciplines: Skilled Services 03/21/2025 Active 1 goal linked to scheduled/document ed intervention 1 goal intervention scheduled/documente d in this visit Risk for Falls Disciplines: Skilled Services 03/21/2025 Active 1 goal linked to scheduled/document ed intervention 1 goal intervention scheduled/documente d in this visit High Risk Medications Disciplines: Skilled Services 03/21/2025 Active 1 goal linked to scheduled/document ed intervention 1 goal intervention scheduled/documente d in this visit SN Heart Failure Disciplines: SN 03/21/2025 Active 1 goal linked to scheduled/document ed intervention 1 goal intervention scheduled/documente d in this visit Goals Goal Associated Problem Outcome Goal Met? Visit Notes Patient/caregiver will demonstrate ability to obtain, store, identify and administer ordered medications, keep accurate medication list in home, and adhere to medication schedule Description: Patient/caregiver will demonstrate ability to obtain, store, identify and administer ordered medications, keep accurate medication list in home, and adhere to medication schedule by 05/19/25. Medication Education No Patient to maintain parameters within physician-specified ranges throughout certification period Physician Specific Parameters No Manage Risk for falls Description: Patient/caregiver will verbalize knowledge of individualized fall prevention strategies by 05/19/25. Risk for Falls No Patient/caregiver will teach back high risk medication side effect and precaution education Description: STG Patient/caregiver will verbalize understanding of high risk medication side effects and precautions to be achieved by 03/24/25. LTG Patient/caregiver will continue to verbalize understanding of high risk medication side effects and precautions throughout certification period. High Risk Medications No Improved management of Heart Failure Description: Improve HF management as evidenced by stable weights, reduced edema, and less symptoms reported by patient to be achieved by 05/19/25. SN Heart Failure No Interventions Intervention Associated Problem/Goal Status Variance Visit Notes Medication Education Description: Evaluate/instruct patient/caregiver on obtaining, storing, identifying and administering ordered medications as well as keeping accurate medication list in the home and adhereing to medication schedule Problem:Medication Education Goal:Patient/caregive r will demonstrate ability to obtain, store, identify and administer ordered medications, keep accurate medication list in home, and adhere to medication schedule Completed Patient instructed on importance of keeping accurate medication list in home, need to take up-to-date medication list to all medical provider appointments, adhering to medication schedule, proper storage of medications, medication, route, dose, frequency, purpose, and side effects of medications, disposing of old and out of date medications and how to order refills. SPO2 Description: Notify Leonora Davalos APRN.SALES AND MARKETING ASSISTANT if pulse ox is <92% at rest. Problem:Physician Specific Parameters Goal:Patient to maintain parameters within physician-specified ranges throughout certification period Completed Instruct on individual fall risk factors and strategies to prevent falls and injuries caused by falls. Problem:Risk for Falls Goal:Manage Risk for falls Completed SN: Patient instructed on Managing Impaired Functional Mobility: Caregiver to provide assist with: Ambulation, Steps, Transfers and ADL/IADLs Anticoagulant- educated on high risk medication Problem:High Risk Medications Goal:Patient/caregive r will teach back high risk medication side effect and precaution education Completed patient educated on anticoagulant medication eliquis Take your medication as instructed and at the same time each day. Do not stop medication or alter doses without speaking with your provider. Discuss medication effectiveness or side effect concerns with your provider and home care team. Discuss all medications you are taking, even hptl-gsj-hraricg medicines, with your provider and pharmacist since many drugs can interact with 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. Tell anyone providing medical or dental care that you are taking an anticoagulant. DO NOT STOP your medication even for a minor procedure like dental work without first checking with the provider. If you forget to take a dose, DO NOT take a double dose. Take the missed dose as soon as possible on the same day. DO NOT take a double dose the next day to make up for the missed dose. Watch for signs of abnormal or excessive bleeding and bruising (refer to Bleeding Precautions education). Call your health care provider right away if you suspect something is wrong. C. Maintenance Heart Failure Description: Reinforce acute and sub-acute management education. Instruct patient/caregiver on zone sheet, living with heart failure, effect of HF on sexual relationships, stress management, emotional health and additional HF resources available as found in the HF binder. Problem:SN Heart Failure Goal:Improved management of Heart Failure Completed Reinforced acute and sub-acute management education. patient assessed and reinforced on zone sheet, living with heart failure, stress management and emotional health as found in the HF binder. documented in this encounter [facility] home Plan of care note* Visit Details Visit Type -SN IV PRN ON OLIVIER L Discipline -Prison Problems Problem Description Start Date Status Goals Interve ntions Medication Education Disciplines: Skilled Services 03/21/2025 Active 1 goal linked to scheduled/document ed intervention 1 goal intervention scheduled/documente d in this visit Risk for skin breakdown Disciplines: Skilled Services 03/21/2025 Active 1 goal linked to scheduled/document ed intervention 1 goal intervention scheduled/documente d in this visit Physician Specific Parameters Disciplines: Skilled Services 03/21/2025 Active 1 goal linked to scheduled/document ed intervention 1 goal intervention scheduled/documente d in this visit Risk for Falls Disciplines: Skilled Services 03/21/2025 Active 1 goal linked to scheduled/document ed intervention 1 goal intervention scheduled/documente d in this visit High Risk Medications Disciplines: Skilled Services 03/21/2025 Active 1 goal linked to scheduled/document ed intervention 4 goal interventions scheduled/documente d in this visit Discharge Disciplines: Skilled Services 03/21/2025 Active 1 goal linked to scheduled/document ed intervention 1 goal intervention scheduled/documente d in this visit SN IV THERAPY Disciplines: SN 03/21/2025 Active 1 goal linked to scheduled/document ed intervention 1 goal intervention scheduled/documente d in this visit SN Heart Failure Disciplines: SN 03/21/2025 Active 1 goal linked to scheduled/document ed intervention 1 goal intervention scheduled/documente d in this visit Sepsis Disciplines: Skilled Services 03/21/2025 Active 1 goal linked to scheduled/document ed intervention 1 goal intervention scheduled/documente d in this visit Goals Goal Associated Problem Outcome Goal Met? Visit Notes Patient/caregiver will demonstrate ability to obtain, store, identify and administer ordered medications, keep accurate medication list in home, and adhere to medication schedule Description: Patient/caregiver will demonstrate ability to obtain, store, identify and administer ordered medications, keep accurate medication list in home, and adhere to medication schedule by 05/19/25. Medication Education No Manage risk for skin breakdown Description: Patient/caregiver will verbalize and demonstrate understanding of the risks and measures to be taken to monitor and prevent skin breakdown by 05/19/25. Risk for skin breakdown No Patient to maintain parameters within physician-specified ranges throughout certification period Physician Specific Parameters No Manage Risk for falls Description: Patient/caregiver will verbalize knowledge of individualized fall prevention strategies by 05/19/25. Risk for Falls No Patient/caregiver will teach back high risk medication side effect and precaution education Description: STG Patient/caregiver will verbalize understanding of high risk medication side effects and precautions to be achieved by 03/24/25. LTG Patient/caregiver will continue to verbalize understanding of high risk medication side effects and precautions throughout certification period. High Risk Medications No Manage discharge planning Description: Patient/caregiver will verbalize understanding of ongoing discharge plan provided related to disease management, arrangements for outpatient and/or community services, obtaining medications, supplies, and DME, as needed throughout certification period. Discharge No Patient/Caregiver will remain free of IV therapy complications Description: Patient/caregiver will verbalize understanding of infusion therapy & demonstrate appropriate access device management as evidenced by patient remaining free of IV complications by CoPat end date of 03/27/25. SN IV THERAPY No Improved management of Heart Failure Description: Improve HF management as evidenced by stable weights, reduced edema, and less symptoms reported by patient to be achieved by 05/19/25. SN Heart Failure No Patient/caregiver will be able to identify and report symptoms of sepsis Description: Patient/caregiver will be able to identify signs/symptoms of sepsis infection and will verbalize actions to take if suspected by 05/19/25. Sepsis No Interventions Intervention Associated Problem/Goal Status Variance Visit Notes Medication Education Description: Evaluate/instruct patient/caregiver on obtaining, storing, identifying and administering ordered medications as well as keeping accurate medication list in the home and adhereing to medication schedule Problem:Medication Education Goal:Patient/caregive r will demonstrate ability to obtain, store, identify and administer ordered medications, keep accurate medication list in home, and adhere to medication schedule Completed Patient instructed on importance of keeping accurate medication list in home. Instruct on the risks and measures to be taken to prevent skin breakdown Description: Patient's Lavon Score is: 18 A Lavon Score 13-18 indicates risk for skin breakdown. Problem:Risk for skin breakdown Goal:Manage risk for skin breakdown Completed patient instructed on maintaining skin integrity including: The need for every 1-2 hour turns, position changes, and maintaining activity as tolerated SPO2 Description: Notify Leonora Davalos APRN.S[employer] AND MARKETING ASSISTANT if pulse ox is <92% at rest. Problem:Physician Specific Parameters Goal:Patient to maintain parameters within physician-specified ranges throughout certification period Completed Instruct on individual fall risk factors and strategies to prevent falls and injuries caused by falls. Problem:Risk for Falls Goal:Manage Risk for falls Completed SN: Patient instructed on Eliminating Environmental Hazards: Keep pathways clear Opioids- educated on high risk medication Problem:High Risk Medications Goal:Patient/caregive r will teach back high risk medication side effect and precaution education Completed patient educated on taking medication(s) as prescribed by provider. Do not stop medication or alter doses without speaking with your provider. Discuss medication effectiveness or side effect concerns with your provider and home care team. Only take opioids as prescribed, do not share your medications, and take proper precautions in storing and properly disposing of opioids once no longer needed. Possible side effects of opioid medication including sedation, decreased rate of breathing, and constipation. Report over sedation to prescribing provider and practice deep breathing techniques every hour while awake. Prevent constipation by increasing water and fiber intake, increasing activity as tolerated, and use stool softener(s) as prescribed. Hypoglycemic (including insulin)- educated on high risk medication Problem:High Risk Medications Goal:Patient/caregive r will teach back high risk medication side effect and precaution education Completed patient educated on taking medication(s) as prescribed by provider. Do not stop medication or skip/alter doses without speaking with your provider. Discuss medication effectiveness or side effect concerns with your provider and home care team. Check blood sugars and keep log as ordered by provider. Monitor for side effects of hypoglycemia such as increased weakness or shaking, moist skin, sweating, fast heartbeat, dizziness, sudden hunger, confusion, pale skin, numbness in mouth or tongue, irritability, nervousness, unsteadiness, nightmares, bad dreams, and restless sleep. Checking your blood sugar routinely and eating a consistent diabetic diet can help regulate blood sugars and reduce side effects. Antibiotic- educated on high risk medication Problem:High Risk Medications Goal:Patient/caregive r will teach back high risk medication side effect and precaution education Completed patient educated on taking medication(s) as prescribed by provider. Do not stop medication or alter doses without speaking with your provider. Discuss medication effectiveness or side effect concerns with your provider and home care team. Take the full dispensed amount even if you start feeling better, as bacteria can become resistant to antibiotic treatment if you do not finish your prescription. Common side effects are upset stomach and diarrhea. Take your antibiotics with food unless otherwise indicated to help with indigestion. Taking an [id number]-[id number] probiotic or eating yogurt with live and active cultures three times a day can help prevent antibiotic-associated diarrhea. Call your provider immediately if you develop rashes or hives as this could be a delayed allergic reaction. Seek emergency treatment if you develop severe allergic reaction symptoms such as mouth or tongue swelling. Anticoagulant- educated on high risk medication Problem:High Risk Medications Goal:Patient/caregive r will teach back high risk medication side effect and precaution education Completed patient educated on anticoagulant medication eliquis Take your medication as instructed and at the same time each day. Do not stop medication or alter doses without speaking with your provider. Discuss medication effectiveness or side effect concerns with your provider and home care team. Discuss all medications you are taking, even fbcu-pck-giouiuu medicines, with your provider and pharmacist since many drugs can interact with 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. Tell anyone providing medical or dental care that you are taking an anticoagulant. DO NOT STOP your medication even for a minor procedure like dental work without first checking with the provider. If you forget to take a dose, DO NOT take a double dose. Take the missed dose as soon as possible on the same day. DO NOT take a double dose the next day to make up for the missed dose. Watch for signs of abnormal or excessive bleeding and bruising (refer to Bleeding Precautions education). Call your health care provider right away if you suspect something is wrong. Instruct on ongoing discharge plan Problem:Discharge Goal:Manage discharge planning Completed Ongoing Discharge plan: Discharge plan discussed with patient including frequency and duration for home SN and plan for transition to: live independently at home without ongoing services. Instruct patient/cargiver on management of infusion and access device Problem:SN IV THERAPY Goal:Patient/Caregive r will remain free of IV therapy complications Completed patient instructed on the following: name, purpose and goal of infusion therapy, how to contact [facility] and how and when to contact the pharmacy C. Maintenance Heart Failure Description: Reinforce acute and sub-acute management education. Instruct patient/caregiver on zone sheet, living with heart failure, effect of HF on sexual relationships, stress management, emotional health and additional HF resources available as found in the HF binder. Problem:SN Heart Failure Goal:Improved management of Heart Failure Completed Reinforced acute and sub-acute management education. patient assessed and instructed on zone sheet as found in the HF binder. Risk of Sepsis Description: Patient is at risk for sepsis. Monitor closely for s/s of sepsis. Problem:Sepsis Goal:Patient/caregive r will be able to identify and report symptoms of sepsis Completed documented in this encounter [facility]'s home Plan of care note* Visit Details Visit Type -SN IV PRN Discipline -Prison Problems Problem Description Start Date Status Goals Interve ntions Physician Specific Parameters Disciplines: Skilled Services 03/21/2025 Active 1 goal linked to scheduled/document ed intervention 1 goal intervention scheduled/documente d in this visit Risk for Falls Disciplines: Skilled Services 03/21/2025 Active 1 goal linked to scheduled/document ed intervention 1 goal intervention scheduled/documente d in this visit High Risk Medications Disciplines: Skilled Services 03/21/2025 Active 1 goal linked to scheduled/document ed intervention 1 goal intervention scheduled/documente d in this visit Discharge Disciplines: Skilled Services 03/21/2025 Active 1 goal linked to scheduled/document ed intervention 1 goal intervention scheduled/documente d in this visit SN IV THERAPY Disciplines: SN 03/21/2025 Active 1 goal linked to scheduled/document ed intervention 1 goal intervention scheduled/documente d in this visit SN Learning Assessment Disciplines: SN 03/21/2025 Active 1 goal linked to scheduled/document ed intervention 1 goal intervention scheduled/documente d in this visit Sepsis Disciplines: Skilled Services 03/21/2025 Active 1 goal linked to scheduled/document ed intervention 1 goal intervention scheduled/documente d in this visit Goals Goal Associated Problem Outcome Goal Met? Visit Notes Patient to maintain parameters within physician-specified ranges throughout certification period Physician Specific Parameters No Manage Risk for falls Description: Patient/caregiver will verbalize knowledge of individualized fall prevention strategies by 05/19/25. Risk for Falls No Patient/caregiver will teach back high risk medication side effect and precaution education Description: STG Patient/caregiver will verbalize understanding of high risk medication side effects and precautions to be achieved by 03/24/25. LTG Patient/caregiver will continue to verbalize understanding of high risk medication side effects and precautions throughout certification period. High Risk Medications No Manage discharge planning Description: Patient/caregiver will verbalize understanding of ongoing discharge plan provided related to disease management, arrangements for outpatient and/or community services, obtaining medications, supplies, and DME, as needed throughout certification period. Discharge No Patient/Caregiver will remain free of IV therapy complications Description: Patient/caregiver will verbalize understanding of infusion therapy & demonstrate appropriate access device management as evidenced by patient remaining free of IV complications by CoPat end date of 03/27/25. SN IV THERAPY No Demonstrate understanding of education Description: Patient and/or caregiver will verbalize understanding of educational instruction provided throughout certification period. SN Learning Assessment No Patient/caregiver will be able to identify and report symptoms of sepsis Description: Patient/caregiver will be able to identify signs/symptoms of sepsis infection and will verbalize actions to take if suspected by 05/19/25. Sepsis No Interventions Intervention Associated Problem/Goal Status Variance Visit Notes SPO2 Description: Notify Leonora Davalos APRN.[employer] AND [employer]ETING ASSISTANT if pulse ox is <92% at rest. Problem:Physician Specific Parameters Goal:Patient to maintain parameters within physician-specified ranges throughout certification period Completed Instruct on individual fall risk factors and strategies to prevent falls and injuries caused by falls. Problem:Risk for Falls Goal:Manage Risk for falls Completed SN: Patient instructed on Eliminating Environmental Hazards: Keep pathways clear, Remove unsafe rugs, Move furniture from pathways, Keep rooms and walkways well lit, Install hand rails/grab bars and Wear supportive shoes or non-skid socks Antibiotic- educated on high risk medication Problem:High Risk Medications Goal:Patient/caregive r will teach back high risk medication side effect and precaution education Completed patient educated on taking medication(s) as prescribed by provider. Do not stop medication or alter doses without speaking with your provider. Discuss medication effectiveness or side effect concerns with your provider and home care team. Take the full dispensed amount even if you start feeling better, as bacteria can become resistant to antibiotic treatment if you do not finish your prescription. Common side effects are upset stomach and diarrhea. Take your antibiotics with food unless otherwise indicated to help with indigestion. Taking an ciph-vdf-vpqfohz probiotic or eating yogurt with live and active cultures three times a day can help prevent antibiotic-associated diarrhea. Call your provider immediately if you develop rashes or hives as this could be a delayed allergic reaction. Seek emergency treatment if you develop severe allergic reaction symptoms such as mouth or tongue swelling. Instruct on ongoing discharge plan Problem:Discharge Goal:Manage discharge planning Completed Ongoing Discharge plan: Discharge plan discussed with patient including frequency and duration for home SN and plan for transition to: caregiver assistance. Instruct patient/cargiver on management of infusion and access device Problem:SN IV THERAPY Goal:Patient/Caregive r will remain free of IV therapy complications Completed patient instructed on the following: name, purpose and goal of infusion therapy, how to contact [facility], how and when to contact the pharmacy, aseptic handling and maintaining a clean area for infusion therapy supplies, preparation and administration of infusion and safe handling, storage and disposal of infusion therapy supplies, medications, flushes and hazardous waste Instruct and educate on knowledge deficits Problem:SN Learning Assessment Goal:Demonstrate understanding of education Completed patient verbalize and/or demonstrate understanding of nursing education completed today. Education methods include: verbal cues, tactile cues, written instructions, visual cues and teach back. Further education required to improve knowledge and compliance with infusion care management. Risk of Sepsis Description: Patient is at risk for sepsis. Monitor closely for s/s of sepsis. Problem:Sepsis Goal:Patient/caregive r will be able to identify and report symptoms of sepsis Completed documented in this encounter [facility]'s home Plan of care note* Visit Details Visit Type -SN ROUTINE IV Discipline -Prison Problems Problem Description Start Date Status Goals Interve ntions Medication Education Disciplines: Skilled Services 03/21/2025 Active 1 goal linked to scheduled/document ed intervention 1 goal intervention scheduled/documente d in this visit Risk for skin breakdown Disciplines: Skilled Services 03/21/2025 Active 1 goal linked to scheduled/document ed intervention 1 goal intervention scheduled/documente d in this visit Physician Specific Parameters Disciplines: Skilled Services 03/21/2025 Active 1 goal linked to scheduled/document ed intervention 1 goal intervention scheduled/documente d in this visit Risk for Falls Disciplines: Skilled Services 03/21/2025 Active 1 goal linked to scheduled/document ed intervention 1 goal intervention scheduled/documente d in this visit Pain Disciplines: Skilled Services 03/21/2025 Active 1 goal linked to scheduled/document ed intervention 1 goal intervention scheduled/documente d in this visit High Risk Medications Disciplines: Skilled Services 03/21/2025 Active 1 goal linked to scheduled/document ed intervention 4 goal interventions scheduled/documente d in this visit SN IV THERAPY Disciplines: 03/21/2025 Active 1 goal linked to scheduled/document ed intervention 2 goal interventions scheduled/documente d in this visit SN Heart Failure Disciplines: 03/21/2025 Active 1 goal linked to scheduled/document ed intervention 1 goal intervention scheduled/documente d in this visit SN Diabetes Disciplines: 03/21/2025 Active 1 goal linked to scheduled/document ed intervention 1 goal intervention scheduled/documente d in this visit SN Learning Assessment Disciplines: 03/21/2025 Active 1 goal linked to scheduled/document ed intervention 1 goal intervention scheduled/documente d in this visit SN Labwork Disciplines: SN 03/21/2025 Active 1 goal linked to scheduled/document ed intervention 1 goal intervention scheduled/documente d in this visit SN Gastrointestina l Disciplines: 03/21/2025 Active 1 goal linked to scheduled/document ed intervention 1 goal intervention scheduled/documente d in this visit Sepsis Disciplines: Skilled Services 03/21/2025 Active 1 goal linked to scheduled/document ed intervention 1 goal intervention scheduled/documente d in this visit Goals Goal Associated Problem Outcome Goal Met? Visit Notes Patient/caregiver will demonstrate ability to obtain, store, identify and administer ordered medications, keep accurate medication list in home, and adhere to medication schedule Description: Patient/caregiver will demonstrate ability to obtain, store, identify and administer ordered medications, keep accurate medication list in home, and adhere to medication schedule by 05/19/25. Medication Education No Manage risk for skin breakdown Description: Patient/caregiver will verbalize and demonstrate understanding of the risks and measures to be taken to monitor and prevent skin breakdown by 05/19/25. Risk for skin breakdown No Patient to maintain parameters within physician-specified ranges throughout certification period Physician Specific Parameters No Manage Risk for falls Description: Patient/caregiver will verbalize knowledge of individualized fall prevention strategies by 05/19/25. Risk for Falls No Manage Pain Description: Patient/caregiver will verbalize knowledge and understanding of appropriate techniques to control pain, including pain medication and non-pharmacological techniques. Patient will verbalize or demonstrate an acceptable level of pain as evidenced by a pain score of 0/10 and improvement in ability to perform activities of daily living to be achieved by 05/19/25. Pain No Patient/caregiver will teach back high risk medication side effect and precaution education Description: STG Patient/caregiver will verbalize understanding of high risk medication side effects and precautions to be achieved by 03/24/25. LTG Patient/caregiver will continue to verbalize understanding of high risk medication side effects and precautions throughout certification period. High Risk Medications No Patient/Caregiver will remain free of IV therapy complications Description: Patient/caregiver will verbalize understanding of infusion therapy & demonstrate appropriate access device management as evidenced by patient remaining free of IV complications by CoPat end date of 03/27/25. SN IV THERAPY No Improved management of Heart Failure Description: Improve HF management as evidenced by stable weights, reduced edema, and less symptoms reported by patient to be achieved by 05/19/25. SN Heart Failure No Improved management of diabetes Description: Improve diabetic management as evidenced by patient/caregiver able to teach back diabetic management strategies by 05/19/25. SN Diabetes No Demonstrate understanding of education Description: Patient and/or caregiver will verbalize understanding of educational instruction provided throughout certification period. SN Learning Assessment No SN to obtain lab specimen without difficulty when ordered throughout certification period SN Labwork No Improved management of GI disease/condition Description: Patient/Caregiver will demonstrate understanding of GI education as evidenced by improved management of gastrointestinal disease/condition by 05/19/25. SN Gastrointestinal No Patient/caregiver will be able to identify and report symptoms of sepsis Description: Patient/caregiver will be able to identify signs/symptoms of sepsis infection and will verbalize actions to take if suspected by 05/19/25. Sepsis No Interventions Intervention Associated Problem/Goal Status Variance Visit Notes Medication Education Description: Evaluate/instruct patient/caregiver on obtaining, storing, identifying and administering ordered medications as well as keeping accurate medication list in the home and adhereing to medication schedule Problem:Medication Education Goal:Patient/caregiver will demonstrate ability to obtain, store, identify and administer ordered medications, keep accurate medication list in home, and adhere to medication schedule Completed Patient instructed on importance of keeping accurate medication list in home, need to take up-to-date medication list to all medical provider appointments, adhering to medication schedule and proper storage of medications. Instruct on the risks and measures to be taken to prevent skin breakdown Description: Patient's Lavon Score is: 18 A Lavon Score 13-18 indicates risk for skin breakdown. Problem:Risk for skin breakdown Goal:Manage risk for skin breakdown Completed patient instructed on maintaining skin integrity including: Inspecting bony prominences, Routine skin care and Notifying [facility] clinician of changes to skin integrity Evaluation for pressure reduction surfaces completed for chair and recommendations made for Pressure relief. SPO2 Description: Notify Leonora Davalos, [employer].S[employer] AND MARKETING ASSISTANT if pulse ox is <92% at rest. Problem:Physician Specific Parameters Goal:Patient to maintain parameters within physician-specified ranges throughout certification period Completed Instruct on individual fall risk factors and strategies to prevent falls and injuries caused by falls. Problem:Risk for Falls Goal:Manage Risk for falls Completed SN: Patient instructed on Reducing Medication Risks: Recommended medication schedule and instructed on management of side effects to minimize fall risk and injuries caused by falls Instruct on pain and instruct on strategies to control pain Problem:Pain Goal:Manage Pain Completed patient instructed on techniques to control pain including Non-Pharmacological measures; rest, positioning/elevation, mobility/therapeutic exercise and distraction. Opioids- educated on high risk medication Problem:High Risk Medications Goal:Patient/caregiver will teach back high risk medication side effect and precaution education Completed patient educated on taking medication(s) as prescribed by provider. Do not stop medication or alter doses without speaking with your provider. Discuss medication effectiveness or side effect concerns with your provider and home care team. Only take opioids as prescribed, do not share your medications, and take proper precautions in storing and properly disposing of opioids once no longer needed. Possible side effects of opioid medication including sedation, decreased rate of breathing, and constipation. Report over sedation to prescribing provider and practice deep breathing techniques every hour while awake. Prevent constipation by increasing water and fiber intake, increasing activity as tolerated, and use stool softener(s) as prescribed. Hypoglycemic (including insulin)- educated on high risk medication Problem:High Risk Medications Goal:Patient/caregiver will teach back high risk medication side effect and precaution education Completed patient educated on taking medication(s) as prescribed by provider. Do not stop medication or skip/alter doses without speaking with your provider. Discuss medication effectiveness or side effect concerns with your provider and home care team. Check blood sugars and keep log as ordered by provider. Monitor for side effects of hypoglycemia such as increased weakness or shaking, moist skin, sweating, fast heartbeat, dizziness, sudden hunger, confusion, pale skin, numbness in mouth or tongue, irritability, nervousness, unsteadiness, nightmares, bad dreams, and restless sleep. Checking your blood sugar routinely and eating a consistent diabetic diet can help regulate blood sugars and reduce side effects. Antibiotic- educated on high risk medication Problem:High Risk Medications Goal:Patient/caregiver will teach back high risk medication side effect and precaution education Completed patient educated on taking medication(s) as prescribed by provider. Do not stop medication or alter doses without speaking with your provider. Discuss medication effectiveness or side effect concerns with your provider and home care team. Take the full dispensed amount even if you start feeling better, as bacteria can become resistant to antibiotic treatment if you do not finish your prescription. Common side effects are upset stomach and diarrhea. Take your antibiotics with food unless otherwise indicated to help with indigestion. Taking an jmhn-psz-cvujphe probiotic or eating yogurt with live and active cultures three times a day can help prevent antibiotic-associated diarrhea. Call your provider immediately if you develop rashes or hives as this could be a delayed allergic reaction. Seek emergency treatment if you develop severe allergic reaction symptoms such as mouth or tongue swelling. Anticoagulant- educated on high risk medication Problem:High Risk Medications Goal:Patient/caregiver will teach back high risk medication side effect and precaution education Completed patient educated on anticoagulant medication eliquis Take your medication as instructed and at the same time each day. Do not stop medication or alter doses without speaking with your provider. Discuss medication effectiveness or side effect concerns with your provider and home care team. Discuss all medications you are taking, even hmvz-qar-dmnwxdx medicines, with your provider and pharmacist since many drugs can interact with 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. Tell anyone providing medical or dental care that you are taking an anticoagulant. DO NOT STOP your medication even for a minor procedure like dental work without first checking with the provider. If you forget to take a dose, DO NOT take a double dose. Take the missed dose as soon as possible on the same day. DO NOT take a double dose the next day to make up for the missed dose. Watch for signs of abnormal or excessive bleeding and bruising (refer to Bleeding Precautions education). Call your health care provider right away if you suspect something is wrong. Complete PICC catheter care per order Description: Measure external catheter length with every dressing change. Measure upper arm circumference at insertion site at initial assessment and when clinically indicated. Change needleless connector and extension tubing weekly and PRN. Change dressing weekly and PRN for lifting edges of dressing, visible soiling, presence of moisture, drainage or blood, compromised skin integrity. Cleanse site with 2% chlorhexidine gluconate for 30 seconds. Allow to air dry completely. Apply skin barrier solution and allow to air dry completely. Cover/secure with transparent semi-permeable dressing with CHG pad. Problem:SN IV THERAPY Goal:Patient/Caregiver will remain free of IV therapy complications Completed Instruct patient/cargiver on management of infusion and access device Problem:SN IV THERAPY Goal:Patient/Caregiver will remain free of IV therapy complications Completed patient instructed on the following: name, purpose and goal of infusion therapy, how to contact [facility], how and when to contact the pharmacy, aseptic handling and maintaining a clean area for infusion therapy supplies, preparation and administration of infusion, safe handling, storage and disposal of infusion therapy supplies, medications, flushes and hazardous waste and flushing the venous access device C. Maintenance Heart Failure Description: Reinforce acute and sub-acute management education. Instruct patient/caregiver on zone sheet, living with heart failure, effect of HF on sexual relationships, stress management, emotional health and additional HF resources available as found in the HF binder. Problem:SN Heart Failure Goal:Improved management of Heart Failure Completed Reinforced acute and sub-acute management education. patient assessed and reinforced on zone sheet, living with heart failure and stress management as found in the HF binder. Instruct on diabetes disease process and management of chronic condition Description: Patient has needs for education of diabetes. Problem:SN Diabetes Goal:Improved management of diabetes Completed patient assessed and reinforced on diabetes disease process, diet education, how to carb count and recogonizing s/s of hypoglycemia and hyperglycemia as found in the diabetes self-care booklets. Instruct and educate on knowledge deficits Problem:SN Learning Assessment Goal:Demonstrate understanding of education Completed patient verbalize and/or demonstrate understanding of nursing education completed today. Education methods include: verbal cues and written instructions. Further education required to improve knowledge and compliance with diabetic care management and gastrointestinal care management. SN to obtain blood specimen (1) Description: Draw blood via PICC for CBC/D, creat, LFT's QMon. Results to Dr. Manley Phone/Fax number [phone]. If unable to draw blood through IV access device, may draw blood peripherally. Problem:SN Labwork Goal:SN to obtain lab specimen without difficulty when ordered throughout certification period Completed Delivered to [facility] Inflammatory Bowel Disease: Instruct patient/caregiver on measures to manage symptoms and prevent exacerbations Description: Instruct patient/caregiver on inflammatory bowel disease of Irritable Bowel Syndrome and Diverticulitis. Problem:SN Gastrointestinal Goal:Improved management of GI disease/condition Completed patient instructed on the following: take medications as prescribed, eat a low residue diet and avoid dairy products, fiber-rich foods such as fresh fruits, vegetables and whole grains, avoid spicy foods and caffeinated drinks and avoid dehydration and drink plenty of water Risk of Sepsis Description: Patient is at risk for sepsis. Monitor closely for s/s of sepsis. Problem:Sepsis Goal:Patient/caregiver will be able to identify and report symptoms of sepsis Com[facility] Visit Details Visit Type -SN IV PRN Discipline -Prison Problems Problem Description Start Date Status Goals Interve ntions Medication Education Disciplines: Skilled Services 03/21/2025 Active 1 goal linked to scheduled/document ed intervention 1 goal intervention scheduled/documente d in this visit Physician Specific Parameters Disciplines: Skilled Services 03/21/2025 Active 1 goal linked to scheduled/document ed intervention 1 goal intervention scheduled/documente d in this visit Pain Disciplines: Skilled Services 03/21/2025 Active 1 goal linked to scheduled/document ed intervention 1 goal intervention scheduled/documente d in this visit High Risk Medications Disciplines: Skilled Services 03/21/2025 Active 1 goal linked to scheduled/document ed intervention 1 goal intervention scheduled/documente d in this visit Discharge Disciplines: Skilled Services 03/21/2025 Active 1 goal linked to scheduled/document ed intervention 1 goal intervention scheduled/documente d in this visit SN IV THERAPY Disciplines: SN 03/21/2025 Active 1 goal linked to scheduled/document ed intervention 1 goal intervention scheduled/documente d in this visit SN Learning Assessment Disciplines: SN 03/21/2025 Active 1 goal linked to scheduled/document ed intervention 1 goal intervention scheduled/documente d in this visit Sepsis Disciplines: Skilled Services 03/21/2025 Active 1 goal linked to scheduled/document ed intervention 1 goal intervention scheduled/documente d in this visit Goals Goal Associated Problem Outcome Goal Met? Visit Notes Patient/caregiver will demonstrate ability to obtain, store, identify and administer ordered medications, keep accurate medication list in home, and adhere to medication schedule Description: Patient/caregiver will demonstrate ability to obtain, store, identify and administer ordered medications, keep accurate medication list in home, and adhere to medication schedule by 05/19/25. Medication Education No Patient to maintain parameters within physician-specified ranges throughout certification period Physician Specific Parameters No Manage Pain Description: Patient/caregiver will verbalize knowledge and understanding of appropriate techniques to control pain, including pain medication and non-pharmacological techniques. Patient will verbalize or demonstrate an acceptable level of pain as evidenced by a pain score of 0/10 and improvement in ability to perform activities of daily living to be achieved by 05/19/25. Pain No Patient/caregiver will teach back high risk medication side effect and precaution education Description: STG Patient/caregiver will verbalize understanding of high risk medication side effects and precautions to be achieved by 03/24/25. LTG Patient/caregiver will continue to verbalize understanding of high risk medication side effects and precautions throughout certification period. High Risk Medications No Manage discharge planning Description: Patient/caregiver will verbalize understanding of ongoing discharge plan provided related to disease management, arrangements for outpatient and/or community services, obtaining medications, supplies, and DME, as needed throughout certification period. Discharge No Patient/Caregiver will remain free of IV therapy complications Description: Patient/caregiver will verbalize understanding of infusion therapy & demonstrate appropriate access device management as evidenced by patient remaining free of IV complications by CoPat end date of 03/27/25. SN IV THERAPY No Demonstrate understanding of education Description: Patient and/or caregiver will verbalize understanding of educational instruction provided throughout certification period. SN Learning Assessment No Patient/caregiver will be able to identify and report symptoms of sepsis Description: Patient/caregiver will be able to identify signs/symptoms of sepsis infection and will verbalize actions to take if suspected by 05/19/25. Sepsis No Interventions Intervention Associated Problem/Goal Status Variance Visit Notes Medication Education Description: Evaluate/instruct patient/caregiver on obtaining, storing, identifying and administering ordered medications as well as keeping accurate medication list in the home and adhereing to medication schedule Problem:Medication Education Goal:Patient/caregiv er will demonstrate ability to obtain, store, identify and administer ordered medications, keep accurate medication list in home, and adhere to medication schedule Completed Patient instructed on adhering to medication schedule. SPO2 Description: Notify Leonora Davalos, [employer] if pulse ox is <92% at rest. Problem:Physician Specific Parameters Goal:Patient to maintain parameters within physician-specified ranges throughout certification period Completed Instruct on pain and instruct on strategies to control pain Problem:Pain Goal:Manage Pain Completed patient instructed on techniques to control pain including Pharmacological measures and Non-Pharmacological measures; rest, positioning/elevation and mobility/therapeutic exercise. Antibiotic- educated on high risk medication Problem:High Risk Medications Goal:Patient/caregiv er will teach back high risk medication side effect and precaution education Completed patient educated on taking medication(s) as prescribed by provider. Do not stop medication or alter doses without speaking with your provider. Discuss medication effectiveness or side effect concerns with your provider and home care team. Take the full dispensed amount even if you start feeling better, as bacteria can become resistant to antibiotic treatment if you do not finish your prescription. Common side effects are upset stomach and diarrhea. Take your antibiotics with food unless otherwise indicated to help with indigestion. Taking an jprn-xyw-pgtrxns probiotic or eating yogurt with live and active cultures three times a day can help prevent antibiotic-associated diarrhea. Call your provider immediately if you develop rashes or hives as this could be a delayed allergic reaction. Seek emergency treatment if you develop severe allergic reaction symptoms such as mouth or tongue swelling. Instruct on importance of follow-up appts and continued monitoring with medical provider &/or chronic care clinic Problem:Discharge Goal:Manage discharge planning Completed Education provided on importance of compliance with follow-up appointment(s). Instruct patient/cargiver on management of infusion and access device Problem:SN IV THERAPY Goal:Patient/Caregiv er will remain free of IV therapy complications Completed patient instructed on the following: name, purpose and goal of infusion therapy, how to contact [facility], how and when to contact the pharmacy, aseptic handling and maintaining a clean area for infusion therapy supplies, preparation and administration of infusion and safe handling, storage and disposal of infusion therapy supplies, medications, flushes and hazardous waste Instruct and educate on knowledge deficits Problem:SN Learning Assessment Goal:Demonstrate understanding of education Completed patient verbalize and/or demonstrate understanding of nursing education completed today. Education methods include: verbal cues, written instructions and teach back. Further education required to improve knowledge and compliance with cardiac disease management, diabetic care management, gastrointestinal care management, infection control precautions, infusion care management, integumentary care management, medication management, nutrition and pain management. Risk of Sepsis Description: Patient is at risk for sepsis. Monitor closely for s/s of sepsis. Problem:Sepsis Goal:Patient/caregiv er will be able to identify and report symptoms of sepsis Completed [facility] Visit Details Visit Type -SN IV PRN Discipline -Prison Problems Problem Description Start Date Status Goals Interve ntions Physician Specific Parameters Disciplines: Skilled Services 03/21/2025 Active 1 goal linked to scheduled/document ed intervention 1 goal intervention scheduled/documente d in this visit Pain Disciplines: Skilled Services 03/21/2025 Active 1 goal linked to scheduled/document ed intervention 1 goal intervention scheduled/documente d in this visit High Risk Medications Disciplines: Skilled Services 03/21/2025 Active 1 goal linked to scheduled/document ed intervention 1 goal intervention scheduled/documente d in this visit Discharge Disciplines: Skilled Services 03/21/2025 Active 1 goal linked to scheduled/document ed intervention 1 goal intervention scheduled/documente d in this visit SN IV THERAPY Disciplines: 03/21/2025 Active 1 goal linked to scheduled/document ed intervention 2 goal interventions scheduled/documente d in this visit SN Learning Assessment Disciplines: 03/21/2025 Active 1 goal linked to scheduled/document ed intervention 1 goal intervention scheduled/documente d in this visit SN Gastrointestina l Disciplines: SN 03/21/2025 Active 1 goal linked to scheduled/document ed intervention 1 goal intervention scheduled/documente d in this visit Sepsis Disciplines: Skilled Services 03/21/2025 Active 1 goal linked to scheduled/document ed intervention 1 goal intervention scheduled/documente d in this visit SN Labwork Disciplines: 03/25/2025 Active 1 goal linked to scheduled/document ed intervention 1 goal intervention scheduled/documente d in this visit Goals Goal Associated Problem Outcome Goal Met? Visit Notes Patient to maintain parameters within physician-specified ranges throughout certification period Physician Specific Parameters No Manage Pain Description: Patient/caregiver will verbalize knowledge and understanding of appropriate techniques to control pain, including pain medication and non-pharmacological techniques. Patient will verbalize or demonstrate an acceptable level of pain as evidenced by a pain score of 0/10 and improvement in ability to perform activities of daily living to be achieved by 05/19/25. Pain No Patient/caregiver will teach back high risk medication side effect and precaution education Description: STG Patient/caregiver will verbalize understanding of high risk medication side effects and precautions to be achieved by 03/24/25. LTG Patient/caregiver will continue to verbalize understanding of high risk medication side effects and precautions throughout certification period. High Risk Medications No Manage discharge planning Description: Patient/caregiver will verbalize understanding of ongoing discharge plan provided related to disease management, arrangements for outpatient and/or community services, obtaining medications, supplies, and DME, as needed throughout certification period. Discharge No Patient/Caregiver will remain free of IV therapy complications Description: Patient/caregiver will verbalize understanding of infusion therapy & demonstrate appropriate access device management as evidenced by patient remaining free of IV complications by CoPat end date of 03/27/25. SN IV THERAPY No Demonstrate understanding of education Description: Patient and/or caregiver will verbalize understanding of educational instruction provided throughout certification period. SN Learning Assessment No Improved management of GI disease/condition Description: Patient/Caregiver will demonstrate understanding of GI education as evidenced by improved management of gastrointestinal disease/condition by 05/19/25. SN Gastrointestinal No Patient/caregiver will be able to identify and report symptoms of sepsis Description: Patient/caregiver will be able to identify signs/symptoms of sepsis infection and will verbalize actions to take if suspected by 05/19/25. Sepsis No SN to obtain lab specimen without difficulty when ordered throughout certification period SN Labwork No Interventions Intervention Associated Problem/Goal Status Variance Visit Notes SPO2 Description: Notify Leonora Davalos, [employer] if pulse ox is <92% at rest. Problem:Physician Specific Parameters Goal:Patient to maintain parameters within physician-specified ranges throughout certification period Completed Instruct on pain and instruct on strategies to control pain Problem:Pain Goal:Manage Pain Completed patient instructed on techniques to control pain including Pharmacological measures and Non-Pharmacological measures; rest, positioning/elevation and mobility/therapeutic exercise. Antibiotic- educated on high risk medication Problem:High Risk Medications Goal:Patient/caregiver will teach back high risk medication side effect and precaution education Completed patient educated on taking medication(s) as prescribed by provider. Do not stop medication or alter doses without speaking with your provider. Discuss medication effectiveness or side effect concerns with your provider and home care team. Take the full dispensed amount even if you start feeling better, as bacteria can become resistant to antibiotic treatment if you do not finish your prescription. Common side effects are upset stomach and diarrhea. Take your antibiotics with food unless otherwise indicated to help with indigestion. Taking an dvtr-uff-hwfarrc probiotic or eating yogurt with live and active cultures three times a day can help prevent antibiotic-associated diarrhea. Call your provider immediately if you develop rashes or hives as this could be a delayed allergic reaction. Seek emergency treatment if you develop severe allergic reaction symptoms such as mouth or tongue swelling. Instruct on importance of follow-up appts and continued monitoring with medical provider &/or chronic care clinic Problem:Discharge Goal:Manage discharge planning Completed Education provided on importance of compliance with follow-up appointment(s). Instruct patient/cargiver on management of infusion and access device Problem:SN IV THERAPY Goal:Patient/Caregiver will remain free of IV therapy complications Completed patient instructed on the following: how to contact [facility], how and when to contact the pharmacy, aseptic handling and maintaining a clean area for infusion therapy supplies, preparation and administration of infusion and safe handling, storage and disposal of infusion therapy supplies, medications, flushes and hazardous waste Remove PICC line/midline catheter per physician order Description: Per order of Dr Elmer Manley Homecare nursing may remove picc line after final dose 03/27 Problem:SN IV THERAPY Goal:Patient/Caregiver will remain free of IV therapy complications Scheduled Instruct and educate on knowledge deficits Problem:SN Learning Assessment Goal:Demonstrate understanding of education Completed patient verbalize and/or demonstrate understanding of nursing education completed today. Education methods include: verbal cues, written instructions, visual cues and teach back. Further education required to improve knowledge and compliance with cardiac disease management, diabetic care management, fall prevention/home safety strategies, gastrointestinal care management, infection control precautions, infusion care management, medication management and pain management. Inflammatory Bowel Disease: Instruct patient/caregiver on measures to manage symptoms and prevent exacerbations Description: Instruct patient/caregiver on inflammatory bowel disease of Irritable Bowel Syndrome and Diverticulitis. Problem:SN Gastrointestinal Goal:Improved management of GI disease/condition Completed patient instructed on the following: take medications as prescribed, eat a low residue diet and avoid dairy products and avoid dehydration and drink plenty of water Risk of Sepsis Description: Patient is at risk for sepsis. Monitor closely for s/s of sepsis. Problem:Sepsis Goal:Patient/caregiver will be able to identify and report symptoms of sepsis Completed SN to obtain blood specimen (1) Description: Draw blood via PICC for CMP with a frequency of once on Date: 03/26/25. Results to Dr. Elmer Manley Dx code(s): K51.00 If unable to draw blood through IV access device, may draw blood peripherally. Problem:SN Labwork Goal:SN to obtain lab specimen without difficulty when ordered throughout certification period Completed documented in this encounter [facility]'s home Plan of care note* Visit Details Visit Type -SN AGENCY DC W V ISIT IV Discipline -Prison Problems Problem Description Start Date Status Goals Interve ntions Medication Education Disciplines: Skilled Services 03/21/2025 Resolved on 03/28/2025 1 goal linked to scheduled/document ed intervention 1 goal intervention scheduled/document ed in this visit Physician Specific Parameters Disciplines: Skilled Services 03/21/2025 Resolved on 03/28/2025 1 goal linked to scheduled/document ed intervention 1 goal intervention scheduled/document ed in this visit Pain Disciplines: Skilled Services 03/21/2025 Resolved on 03/28/2025 1 goal linked to scheduled/document ed intervention 1 goal intervention scheduled/document ed in this visit High Risk Medications Disciplines: Skilled Services 03/21/2025 Resolved on 03/28/2025 1 goal linked to scheduled/document ed intervention 1 goal intervention scheduled/document ed in this visit Discharge Disciplines: Skilled Services 03/21/2025 Resolved on 03/28/2025 1 goal linked to scheduled/document ed intervention 1 goal intervention scheduled/document ed in this visit SN IV THERAPY Disciplines: SN 03/21/2025 Resolved on 03/28/2025 1 goal linked to scheduled/document ed intervention 1 goal intervention scheduled/document ed in this visit SN Diabetes Disciplines: SN 03/21/2025 Resolved on 03/28/2025 1 goal linked to scheduled/document ed intervention 1 goal intervention scheduled/document ed in this visit SN Gastrointestin al Disciplines: SN 03/21/2025 Resolved on 03/28/2025 1 goal linked to scheduled/document ed intervention 1 goal intervention scheduled/document ed in this visit Sepsis Disciplines: Skilled Services 03/21/2025 Resolved on 03/28/2025 1 goal linked to scheduled/document ed intervention 1 goal intervention scheduled/document ed in this visit Goals Goal Associated Problem Outcome Goal Met? Visit Notes Patient/caregiver will demonstrate ability to obtain, store, identify and administer ordered medications, keep accurate medication list in home, and adhere to medication schedule Description: Patient/caregiver will demonstrate ability to obtain, store, identify and administer ordered medications, keep accurate medication list in home, and adhere to medication schedule by 05/19/25. Medication Education No Patient to maintain parameters within physician-specified ranges throughout certification period Physician Specific Parameters No Manage Pain Description: Patient/caregiver will verbalize knowledge and understanding of appropriate techniques to control pain, including pain medication and non-pharmacological techniques. Patient will verbalize or demonstrate an acceptable level of pain as evidenced by a pain score of 0/10 and improvement in ability to perform activities of daily living to be achieved by 05/19/25. Pain No Patient/caregiver will teach back high risk medication side effect and precaution education Description: STG Patient/caregiver will verbalize understanding of high risk medication side effects and precautions to be achieved by 03/24/25. LTG Patient/caregiver will continue to verbalize understanding of high risk medication side effects and precautions throughout certification period. High Risk Medications No Manage discharge planning Description: Patient/caregiver will verbalize understanding of ongoing discharge plan provided related to disease management, arrangements for outpatient and/or community services, obtaining medications, supplies, and DME, as needed throughout certification period. Discharge No Patient/Caregiver will remain free of IV therapy complications Description: Patient/caregiver will verbalize understanding of infusion therapy & demonstrate appropriate access device management as evidenced by patient remaining free of IV complications by CoPat end date of 03/27/25. SN IV THERAPY No Improved management of diabetes Description: Improve diabetic management as evidenced by patient/caregiver able to teach back diabetic management strategies by 05/19/25. SN Diabetes No Improved management of GI disease/condition Description: Patient/Caregiver will demonstrate understanding of GI education as evidenced by improved management of gastrointestinal disease/condition by 05/19/25. SN Gastrointestinal No Patient/caregiver will be able to identify and report symptoms of sepsis Description: Patient/caregiver will be able to identify signs/symptoms of sepsis infection and will verbalize actions to take if suspected by 05/19/25. Sepsis No Interventions Intervention Associated Problem/Goal Status Variance Visit Notes Medication Education Description: Evaluate/instruct patient/caregiver on obtaining, storing, identifying and administering ordered medications as well as keeping accurate medication list in the home and adhereing to medication schedule Problem:Medication Education Goal:Patient/caregiver will demonstrate ability to obtain, store, identify and administer ordered medications, keep accurate medication list in home, and adhere to medication schedule Completed Patient instructed on adhering to medication schedule. SPO2 Description: Notify Leonora Davalos APRN.SALES AND MARKETING ASSISTANT if pulse ox is <92% at rest. Problem:Physician Specific Parameters Goal:Patient to maintain parameters within physician-specified ranges throughout certification period Completed Instruct on pain and instruct on strategies to control pain Problem:Pain Goal:Manage Pain Completed patient instructed on techniques to control pain including Pharmacological measures and Non-Pharmacological measures; rest, positioning/elevation , mobility/therapeutic exercise, distraction, breathing/relaxation and use of DME/assistive devices. Antibiotic- educated on high risk medication Problem:High Risk Medications Goal:Patient/caregiver will teach back high risk medication side effect and precaution education Completed patient educated on taking medication(s) as prescribed by provider. Do not stop medication or alter doses without speaking with your provider. Discuss medication effectiveness or side effect concerns with your provider and home care team. Take the full dispensed amount even if you start feeling better, as bacteria can become resistant to antibiotic treatment if you do not finish your prescription. Common side effects are upset stomach and diarrhea. Take your antibiotics with food unless otherwise indicated to help with indigestion. Taking an aarq-bbh-xmiugpw probiotic or eating yogurt with live and active cultures three times a day can help prevent antibiotic-associated diarrhea. Call your provider immediately if you develop rashes or hives as this could be a delayed allergic reaction. Seek emergency treatment if you develop severe allergic reaction symptoms such as mouth or tongue swelling. Instruct on final discharge plan and deliver discharge instructions Problem:Discharge Goal:Manage discharge planning Completed Delivered Discharge plan: Discharge plan discussed with patient for plan for transition to: live independently at home without ongoing services Remove PICC line/midline catheter per physician order Description: Per order of Dr Elmer Manley Homecare nursing may remove picc line after final dose 03/27 Problem:SN IV THERAPY Goal:Patient/Caregiver will remain free of IV therapy complications Completed Completed Patient Tolerated Procedure Patient did tolerate procedure well. Instruct on diabetes disease process and management of chronic condition Description: Patient has needs for education of diabetes. Problem:SN Diabetes Goal:Improved management of diabetes Completed patient assessed and reinforced on diabetes disease process as found in the diabetes self-care booklets. Inflammatory Bowel Disease: Instruct patient/caregiver on measures to manage symptoms and prevent exacerbations Description: Instruct patient/caregiver on inflammatory bowel disease of Irritable Bowel Syndrome and Diverticulitis. Problem:SN Gastrointestinal Goal:Improved management of GI disease/condition Completed patient instructed on the following: take medications as prescribed, eat a low residue diet and avoid dairy products, fiber-rich foods such as fresh fruits, vegetables and whole grains, avoid spicy foods and caffeinated drinks and avoid dehydration and drink plenty of water Risk of Sepsis Description: Patient is at risk for sepsis. Monitor closely for s/s of sepsis. Problem:Sepsis Goal:Patient/caregiver will be able to identify and report symptoms of sepsis Completed [facility] Author Carson Hobbs [facility] Note Date/Time June 27, 2025 9 :45am [facility] [address] [place] [address] OFFICE VISIT Date of Service: 06/27/25 MR#: [id number] Acct: [id number] Name: ALEXANDRA BELLA Rep #: [id number] : 1955 Provider: Dr. Júnior Hobbs MD Age/Sex: 69/F Location: [facility] Status: Signed HPI HPI History of Present Illness Details: This is 69-year-old female who presents for a cardiovascular outpatient follow- up. She has a history of diastolic dysfunction, paroxysmal atrial fibrillation status post MICHAELA guided cardioversion at [facility] on 07/08/2019, DVT status post [place] filter, morbid obesity, former smoker, quit after 15 packsmoking history, and MARILIA with BiPAP. She also has a history of breast cancer with previous radiation therapy. She had a heart catheterization on 09/23/2019 for chest pressure, increased SOB, and syncope that showed an ejection fraction of 55% or greater and mild LAD disease. Echocardiogram in December 2024 showed LV function 55%. Stress test in December 2024 was negative for ischemia and showed preserved EF. She acknowledges midsternal chest pressure. This occurs twice per week and lastfor approximately 10 minutes. This has improved with Lasix therapy. She deniespalpitations. She acknowledges bilateral lower extremity edema with right worsethan left. She acknowledges shortness of breath with activity. She denies shortness of breath at rest, orthopnea, cough, or PND. She acknowledges lightheadedness when standing too quickly. She denies dizziness, near-syncope, or syncope. She acknowledges fatigue and weakness. 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 Required: No Accompanied by: Significant Other Is patient in pain?: No Allergies infliximab (From Remicade) Allergy (Severe, Verified 06/27/25 09:07) Anaphylaxis oxymetazoline (From Afrin (oxymetazoline)) Allergy (Severe, Verified 06/27/25 09:07) CHEST PAIN Penicillins Allergy (Verified 06/27/25 09:07) Hives adhesive tape Adverse Reaction (Severe, Verified 06/27/25 09:07) / clarithromycin Adverse Reaction (Severe, Verified 06/27/25 09:07) crmps and diarrhea dulaglutide (From Trulicity) Adverse Reaction (Severe, Verified 06/27/25 09:07) Abd cramps/diarrhea latex Adverse Reaction (Severe, Verified 06/27/25 09:07) / spironolactone (From Aldactone) Adverse Reaction (Severe, Verified 06/27/25 09:07) headaches Medications ?Medication ?Instructions ?Recorded ?Confirmed ?Type tramadol 50 mg tablet 50 mg PO Q6H PRN Pain 06/27/25 History celecoxib 200 mg capsule 200 mg PO 1200 08/05/1906/11 History blood-glucose meter (FreeStyle #1 ea 01/06/20 04/22/25 Rx [place] Lite kit) lancing device with lancets kit #1 ea 08/13/20 5 Rx (Edifilm Deltok tok tok Plus Lancing Device kit) compress.stocking,knee,reg,lrg #2 ea 08/31/20 04/22/25 Rx FreeStyle Lite Strips (blood sugar #300 ea 12/08/21 Rx diagnostic) lancets 28 gauge (FreeStyle #120 ea 12/08/21 04/22/25 Rx Lancets) diphenoxylate-atropine 2.5 1 tab PO TID PRN diarrhea # 30 tabs 09/26/22 06/27/25 Rx mg-0.025 mg tablet (Lomotil) levothyroxine 200 mcg tablet 200 mcg PO DAILY 01/05/24 06/27/25 History (Synthroid) sucralfate 1 gram tablet (Carafate) 1 g PO QDAY PRN 06/27/25 History losartan 50 mg tablet 50 mg PO DAILY #90 tabs 02/0206/27/25 Rx albuterol sulfate 90 mcg/actuation 2 puff inhalation Q 4H PRN 11/19/24 06/27/25 Rx aerosol inhaler shortness of breath or wheez ing #8.5 grams fluticasone propionate 50 2 spray intranasal DAILY #18 .2 mL 11/19/24 06/27/25 Rx mcg/actuation nasal spray,suspension (Allergy Relief (fluticasone)) flecainide 100 mg tablet 100 mg PO Q12H #180 tabs 06/27/25 Rx famotidine 40 mg tablet 40 mg PO QHS #30 tabs 06/27/25 Rx pantoprazole 40 mg tablet,delayed 40 mg PO BID #60 tab s 01/23/25 06/27/25 Rx release apixaban 5 mg tablet (Eliquis) 5 mg PO BID #180 tabs 0 04/28/25 06/27/25 Rx clobetasol 0.05 % topical ointment 1 applic topical QH S PRN lichen 06/24/25 06/27/25 Rx sclerosis #30 grams nystatin 100,000 unit/gram topical 1 applic topical BI D PRN itching 06/24/25 06/27/25 Rx powder #30 grams hydrochlorothiazide 25 mg tablet 25 mg PO QAM #90 tabs 06/27/25 06/27/25 Rx metoprolol succinate 25 mg 25 mg PO QDAY #90 tabs 06/1106/27/25 Rx tablet,extended release 24 hr tirzepatide 5 mg/0.5 mL 5 mg subcut QWEEK 06/27/25 1 History subcutaneous pen injector (Kelley) Ejection fraction %: 55 Have you fallen in the past year?: No PFS Medical History Body mass index (BMI) 35 or more Bilateral acute otitis media Type 2 diabetes mellitus with hyperglycemia Shingles Right bundle branch block (RBBB) Nonobstructive atherosclerosis of coronary artery Chronic diastolic (congestive) heart failure Bronchitis 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 Lichen sclerosus Lichen sclerosus Chronic sinusitis Yeast infection Hepatic fibrosis, stage 3 History of cardioversion Paroxysmal atrial fibrillation Pure hypercholesterolemia [place] filter in place Rectal cancer PVD (peripheral vascular disease) Varicosities of leg Pneumonia Diverticulitis Chronic UTI (urinary tract infection) Lipoma Diarrhea Soft tissue mass Peptic ulcer disease Other chest pain UTI (urinary tract infection) Bronchitis Hypersomnia Diastolic dysfunction Malaise Obesity Sleep apnea Unstable angina Hypothyroidism History of recurrent deep vein thrombosis (DVT) History of cervical cancer History of colon cancer History of breast cancer Rheumatoid arthritis Surgical History History of cholecystectomy Lipoma S/P left knee arthroscopy History of liver biopsy History of mastectomy, subtotal History of lumpectomy of left breast H/O thyroidectomy History of left heart catheterization (LHC) Family History Mother Rheumatoid arthritis Brother Rheumatoid arthritis CAD (coronary artery disease) Heart disease Father CAD (coronary artery disease) Kidney disease Heart disease Grandmother Breast cancer Social History Smoking Status: Former smoker how long ago did patient quit smokin years ago second hand exposure: Yes alcohol intake: current alcohol intake frequency: holidays/special occasions only details: social substance use type: does not use caffeine: Yes Type: coffee Number of servings: 1 what type of physical activity do you participate in: none seatbelt use: always do you feel safe at home: Yes additional social history: [employer] Patient is retired ROS Const Const: Positive for fatigue; Negative for weakness, daytime sleepiness or difficulty sleeping ENT ENT: Positive for dizziness and balance problems; Negative for Nosebleed/epistaxis Cardio Chest Pain: No Palpitations: No Edema: Bilateral (BLE at times ) Resp Respiratory: Positive for SOB with activity; Negative for SOB at rest, SOB orthopnea\\SOB lying down or Cough GI GI: Negative nausea, vomiting or heartburn Musc Musc: Positive for balance problems Neuro Neuro: Positive for dizziness; Negative for lightheadedness, near syncope or weakness Endo Endo: Positive for fatigue Cardiology Exam Const Appearance: cooperative, healthy appearing, comfortable and no acute distress Nutritional Appearance: average body habitus and well nourished Orientation: alert, awake and oriented x3 Head Head: normal to inspection Ears: hearing grossly normal bilaterally Nose: external nose normal Face and Sinus: face symmetric Mouth: moist mucous membranes Eyes General: appearance normal, both eyes and all related structures Eyelids: eyelids normal EOM: EOM intact bilaterally Neck Neck: normal visual inspection and no JVD Carotids: normal carotid upstroke Chest Chest inspection: normal inspection of the chest, symmetric chest movement and normal respiratory effort; Negative cough Auscultation: Bilateral: Clear to Auscultation Cardio Rate: regular rate Rhythm: regular rhythm Heart sounds: S1 normal and S2 normal; Negative rub, gallop or murmur GI GI: normal to inspection Neuro General: patient alert, patient awake, patient oriented x3 and CN's II-XI intactbilaterally Skin Skin: no rashes or lesions noted Extremities Pulses: Normal: Right Posterior Tibial Pulse, Left Posterior Tibial Pulse, RightRadial Pulse and Left Radial Pulse Lower Extremity Edema: None: Bilateral Psych Psychological: normal affect Supplemental Info Supplemental Information Echocardiogram from 12/17/2024: Interpretation Summary Normal LV size. The left ventricular ejection fraction is 55 %. Stage 1 diastolic dysfunction. The global longitudinal strain is mildly abnormal. Structurally normal valves Echocardiogram from 05/22/2023: Interpretation Summary Normal LV size. Left ventricular systolic function is normal. The estimated ejection fraction is 65 %. Stage 1 diastolic dysfunction. Bubble contrast study negative for right to left interatrial shunt. Stress test from 12/17/2024: Conclusion: Normal pharmacologic myocardial perfusion stress test. Preserved ejection fraction. Heart catheterization from 09/23/2019: Coronary angiography: Left main: No stenosis Left anterior descending colon mild diffuse nonobstructive plaque disease Diagonal #1: No stenosis Diagonal #2 no stenosis Left circumflex: No stenosis Marginal #1: No stenosis Marginal #2: No stenosis Dominant: No Right coronary artery: No stenosis Dominant: Yes Posterior descending: No stenosis Posterior lateral: No stenosis Collateral circulation: Not present LVEF: Normal (55% or greater) Wall motion: Normal Mitral valve regurgitation: Not assessed Heart catheterization from May 2017 showed nonobstructive coronary artery disease and mild global LV systolic dysfunction. Ejection fraction was noted be40-50%. Left main showed mild calcification. Ostial LAD showed 20% stenosis. LCx was angiographically normal. RCA was angiographically normal. Diagnostics: Electrocardiogram Echocardiogram Stress Test Stress Test Nuclear Medicine Stress Echocardiogram Chest X-Ray Chest CTA Abdomen Ultrasound Abdomen/Pelvis CT Pulmonary: Pulmonary Function Test Pulmonary Exercise Test Past Visits: Cardiology Visit Today Assessment and Plan Assessment and Plan (1) Chronic diastolic (congestive) heart failure: Status: Chronic Plan: She does have preserved ejection fraction (2) Pure hypercholesterolemia: Status: Chronic Plan: Last lipid panel available for review from November 2022 showed total cholesterol: 217, HDL: 52, LDL: 137, and triglycerides: 142. She was encouraged continue riskfactor and lifestyle modification. She has not been on statin medication due tod enzyme changes. She undergo repeat laboratory testing today to help guidefurther. (3) Paroxysmal atrial fibrillation: Status: Chronic Comment: Status post MICHAELA guided cardioversion at [facility] on 07/08/2019; Plan: She appears to be in a regular rhythm on exam. She undergo stress test to ensure that no progressive CAD with respect to flecainide therapy. She will continue metoprolol tartrate for rate control. She will continue Eliquis for CVA protection. She may be a candidate for the ReACT A-fib trial. (4) Dyspnea on exertion: Status: Chronic Plan: This remains her main concern. This is thought to be multifactorial, most notably weight related. She does have ongoing pain with pulmonology team. She didhave a repeat echocardiogram with demonstrated preserved ejection fraction remember her last catheterization in 2019 demonstrated mild LAD disease she has lost some weight which is commendable. I would recommend that we discontinue the Lasix and put her on hydrochlorothiazide 25 mg a day which will continue with the losartan. (5) Morbid obesity with BMI of 45.0-49.9, adult: Status: Chronic Plan: This is believed to contributing to her symptoms. She was encouraged to review with PCP for guidance. Orders: Orders 12 Lead EKG performed by [facility] Today I48.0 - Paroxysmal atrial fibrillation, I50.32 - Chronic diastolic (congestive) heart failure, R06.09 - Other forms of dyspnea Basic Metabolic Profile (BMP) Today I50.32 - Chronic diastolic (congestive) heart failure Medications: New hydrochlorothiazide 25 mg PO QAM 90 tabs 3RF metoprolol succinate ER 25 mg PO QDAY 90 tabs 3RF Discontinued furosemide Discontinued Reason: Order Changed 40 mg PO DAILY 90 tabs 3RF edema metoprolol tartrate Discontinued Reason: Order Changed 12.5 mg (1/2 x 25 mg) PO DAILY 45 tabs 3RF potassium chloride ER Discontinued Reason: Order Changed 10 mEq PO DAILY 90 caps 3RF Plan Details Additional Comments: She was asked to discuss her many/several non-cardiac symptoms with PCP. Thank you for allowing us to participate in the patients plan of care, if you have any questions please do not hesitate to call. Plan was reviewed with patient/family member along with red flag symptoms. Understanding was acknowledged. Questions were answered to apparent satisfaction. This note was generated using a voice recognition system and there may be incorrect words, spelling or punctuation that were not noted when reviewing the office note prior to saving. Portions of this documentation were copied and pasted from previous office visitnotes to provide a cohesive continuity of the history. The note has been reviewed, edited, and updated, as necessary. Follow Up: 3 Months (mmm) Coding Level of Care Code Off vis,est,level 4 Diagnoses Chronic diastolic (congestive) heart failure I50.32 Pure hypercholesterolemia E78.00 Paroxysmal atrial fibrillation I48.0 Dyspnea on exertion R06.09 Morbid obesity with BMI of 45.0-49.9, adult E66.01; Z68.42 Coding Level of Care Code Off vis,est,level 4 Diagnoses Chronic diastolic (congestive) heart failure I50.32 Pure hypercholesterolemia E78.00 Paroxysmal atrial fibrillation I48.0 Dyspnea on exertion R06.09 Morbid obesity with BMI of 45.0-49.9, adult E66.01; Z68.42 Clinical Quality Measures Falls Risk Screening/Assistive Devices Have you fallen in the past year?: No Cardiac Ejection fraction %: 55 06/27/25 0946 <Electronically signed by Carson Glynn> Date _ Carson Burnette Signature: Date (if applicable) CC: VANESSA Davalos ~ [facility] [employer] Work Phone: Reason for referral (narrative)* Outpatient Procedure (Routine) - Authorized Specialty Diagnoses / Procedures Referred By Contac t Referred To [facility] Diagnoses DEE (dyspnea on exertion) Procedures ECHO ECHO TTHRC R-T 2D W/WOM-MODE COMPL SPEC&COLR Tanya Guzmán, COMMUTER P[employer].SALES AND MARKETING ASSISTANT [address] [place] [address] [facility] [address] [place] [id number] Referral ID Status Reason Start Date Expiration Date Visits Requested Visits Authorized [id number] Authorized Auto-Generat ed Referral 02/14/2022 02/14/2023 [address] [facility] for referral (narrative)* Outpatient Procedure (Routine) - Closed Specialty Diagnoses / Procedures Referred By Contac t Referred To [facility] Diagnoses DEE (dyspnea on exertion) Procedures ECHO ECHO TTHRC R-T 2D W/WOM-MODE COMPL SPEC&COLR Tanya Guzmán APRN.SALES AND MARKETING ASSISTANT [address] [place] [address] [facility] [address] [place] [address] Referral ID Status Reason Start Date Expiration Date V isits Requested Visits Authorized [id number] Closed Auto-Generate d Referral 02/14/2022 02/14/2023 [address] [facility] for referral (narrative)* Diagnostic Procedure Only (Routine) - Closed Specialty Diagnoses / Procedures Referred By Contac t Referred To Contact US IMAGING Diagnoses Fatty metamorphosis of liver Liver fibrosis Procedures US ABD RT UPPER QUADRANT US ABDOMINAL REAL [place] W/[place] [address] [place] [address] Us Imaging Referral ID Status Reason Start Date Expiration Date V isits Requested Visits Authorized [id number] Closed Auto-Generate d Referral 12/31/2021 11/03/2022 [address] [facility] for referral (narrative)* Diagnostic Procedure Only (Routine) - Pending Review Specialty Diagnoses / Procedures Referred By Contac t Referred To Contact US IMAGING Diagnoses Fatty metamorphosis of liver Elevated liver enzymes Procedures US ABD RT UPPER QUADRANT US ABDOMINAL REAL TIME W/[place] [address] [place] [address] Us Imaging Referral ID Status Reason Start Date Expiration Date Visits Requested Visits Authorized [id number] Pending Review Auto-Generat ed Referral 12/07/2022 07/09/2023 [address] [facility] for referral (narrative)* Outpatient Procedure (Routine) - Pending Review Specialty Diagnoses / Procedures Referred By Contac t Referred To Contact [facility] Diagnoses Diverticulitis Procedures COLONOSCOPY DIAGNOSTIC COLONOSCOPY FLX DX W/COLLJ [place] [address] [place] [id number] [place] [id number] Referral ID Status Reason Start Date Expiration Date Visits Requested Visits Authorized [id number] Pending Review Auto-Generat ed Referral 08/30/2023 [address] [facility] for referral (narrative)* Diagnostic Procedure Only (Routine) - Closed Specialty Diagnoses / Procedures Referred By Contac t Referred To Contact US IMAGING Diagnoses Metabolic dysfunction-associated steatohepatitis (MASH) Procedures US ABD RIGHT UPPER QUADRANT US ABDOMINAL REAL TIME W/IMAGE LIMITED Uriah Mueller APRN.CNP [address] [place] [address] Us Imaging [id number] Referral ID Status Reason Start Date Expiration Date V isits Requested Visits Authorized [id number] Closed Auto-Generate d Referral 03/11/2024 04/10/2025 [address] [facility] for referral (narrative)* Outpatient Procedure (Routine) - Closed Specialty Diagnoses / Procedures Referred By Contac t Referred To Contact [facility] Diagnoses Nausea Procedures EGD DIAGNOSTIC ESOPHAGOGASTRODUODENOSC OPY [place] [address] [place] [address] [facility] [address] [place] [id number] Referral ID Status Reason Start Date Expiration Date V isits Requested Visits Authorized [id number] Closed Auto-Generate d Referral 10/02/2022 09/30/2023 1 1 * Outpatient Procedure (Routine) - Closed Specialty Diagnoses / Procedures Referred By Contac t Referred To Contact [facility] Diagnoses Diverticulitis Procedures COLONOSCOPY DIAGNOSTIC COLONOSCOPY FLX DX W/[place] [address] [place] [address] [facility] [address] [place] [address] Referral ID Status Reason Start Date Expiration Date V isits Requested Visits Authorized [id number] Closed Auto-Generate d Referral 08/30/2022 08/30/2023 1 [facility] Diagnostic Procedure Only (Routine) - Closed Specialty Diagnoses / Procedures Referred By Contac t Referred To Contact XR IMAGING Diagnoses Pain Procedures XR KNEE GENERAL 4V AP BOTH/PA BOTH/LAT/MERC LEFT RADIOLOGIC EXAM KNEE COMPLETE 4/MORE VIEWS Royer Ferguson, KAILASH [address] [place] [address] Xr Imaging [id number] Referral ID Status Reason Start Date Expiration Date V isits Requested Visits Authorized [id number] Closed Auto-Generate d Referral 08/06/2024 09/05/2025 [address] [facility] for referral (narrative)No reason for referral information availableWMercy Health [facility] Work Phone: Reason for visit Narrative* Outpatient Procedure (Routine) - Closed Specialty Diagnoses / Procedures Referred By Contac t Referred To [facility] Diagnoses DEE (dyspnea on exertion) Procedures ECHO ECHO TTHRC R-T 2D W/WOM-MODE COMPL SPEC&COLR Tanya Guzmán, COMMUTER PILOT.SALES AND MARKETING ASSISTANT [address] [place] [address] [facility] [address] [place] [address] Referral ID Status Reason Start Date Expiration Date V isits Requested Visits Authorized [id number] Closed Auto-Generate d Referral 02/14/2022 02/14/2023 [address] [facility] for visit Narrative* Diagnostic Procedure Only (Routine) - Closed Specialty Diagnoses / Procedures Referred By Contac t Referred To Contact US IMAGING Diagnoses Fatty metamorphosis of liver Liver fibrosis Procedures US ABD RT UPPER QUADRANT US ABDOMINAL REAL TIME W/[place] [address] [place] [address] Us Imaging Referral ID Status Reason Start Date Expiration Date V isits Requested Visits Authorized [id number] Closed Auto-Generate d Referral 12/31/2021 11/03/2022 [address] [facility] for visit Narrative* Outpatient Procedure (Routine) - Closed Specialty Diagnoses / Procedures Referred By Contac t Referred To Contact [facility] Diagnoses Metabolic dysfunction-associated steatohepatitis (MASH) Procedures DDI VIBRATION CONTROLLED TRANSIENT ELASTOGRAPHY (VCTE) LIVER ELASTOGRAPHY W/O IMAG W/I&R Uriah Mueller, COMMUTER PILOT.SALES AND MARKETING ASSISTANT [address] [place] [address] [facility] [address] [place] [address] Referral ID Status Reason Start Date Expiration Date V isits Requested Visits Authorized [id number] Closed Auto-Generate d Referral 03/11/2024 03/11/2025 [address] [facility] for visit Narrative* Diagnostic Procedure Only (Routine) - Closed Specialty Diagnoses / Procedures Referred By Contac t Referred To Contact US IMAGING Diagnoses Metabolic dysfunction-associated steatohepatitis (MASH) Procedures US ABD RIGHT UPPER QUADRANT US ABDOMINAL REAL TIME W/IMAGE LIMITED Uriah Mueller COMMUTER PILOT.SALES AND MARKETING ASSISTANT [address] [place] [address] [place] [id number] Referral ID Status Reason Start Date Expiration Date V isits Requested Visits Authorized [id number] Closed Auto-Generate d Referral 03/11/2024 04/10/2025 [address] [facility] for visit Narrative* Outpatient Procedure (Routine) - Closed Specialty Diagnoses / Procedures Referred By Contac t Referred To Contact [facility] Diagnoses Diverticulitis Procedures COLONOSCOPY DIAGNOSTIC COLONOSCOPY FLX DX [place] [address] [place] [address] [facility] [address] [place] [address] Referral ID Status Reason Start Date Expiration Date V isits Requested Visits Authorized [id number] Closed Auto-Generate d Referral 08/30/2022 08/30/2023 [address] [facility] for visit Narrative* MRI/CT (Routine) - Closed Specialty Diagnoses / Procedures Referred By David t Referred To Contact CT IMAGING Diagnoses Diverticulitis Nausea and vomiting, unspecified vomiting type Diarrhea, unspecified type Procedures CT ABD/PEL W IVCON CT ABD & PELVIS W/[place] [address] [place] [address] Phone: tel: fax: [place] [address] Referral ID Status Reason Start Date Expiration Date V isits Requested Visits Authorized [id number] Closed Auto-Generate d Referral 04/15/2025 05/08/2026 [address] [facility] for visit Narrative* Outpatient Procedure (Routine) - Closed Specialty Diagnoses / Procedures Referred By Contac t Referred To Contact [facility] Diagnoses Diverticulitis Procedures COLONOSCOPY DIAGNOSTIC COLONOSCOPY FLX DX W/[place] [address] [place] [address] Phone: tel: fax: [facility] [address] [place] [address] Referral ID Status Reason Start Date Expiration Date V isits Requested Visits Authorized [id number] Closed Auto-Generate d Referral 03/28/2025 03/28/2026 1 1 [facility] Summary Purpose Family History No Family History Records Found Relationship Condition Age at Onset Recorded Date/T johnnie mother Rheumatoid arthritis Unknown brother Rheumatoid arthritis Unknown Coronary artery disease Unknown Cardiac disease Unknown father Coronary artery disease Unknown Kidney disorder Unknown grandmother Malignant neoplasm of breast Unknown Advance Directives No Advanced Directives Records Found Advance Directive Response Recorded Date/ Time Living Will Yes May 06 0 5:23pm Power of Senior Javascript Developer Yes May 06 020 5:23pm Documents on File Type Date Recorded Patient Apiarist Expl anation Advance Directive(s) 09/23/2021 12:11 PM Advance Directive(s) 09/18/2021 11:07 AM Advance Directive(s) 03/01/2021 5:04 PM Advance Directive(s) 12/03/2020 11:09 AM Advance Directive(s) 10/22/2019 12:29 PM Advance Directive(s) 09/23/2019 12:12 PM Advance Directive(s) 09/02/2019 10:31 AM Advance Directive(s) 08/28/2019 2:17 PM Advance Directive(s) 07/05/2019 10:56 AM Advance Directive(s) 08/29/2018 10:32 AM Advance Directive(s) 08/22/2018 9:59 AM Advance Directive Response Recorded Date/ Time Living Will Yes January 25, 2022 1 1:31am Power of Senior Javascript Developer Yes January 25, 2022 11:31am Documents on File Type Date Recorded Patient Apiarist Expl anation Advance Directive(s) 09/23/2021 12:11 PM Advance Directive(s) 09/18/2021 11:07 AM Advance Directive(s) 03/01/2021 5:04 PM Advance Directive(s) 12/03/2020 11:09 AM Advance Directive(s) 10/22/2019 12:29 PM Advance Directive(s) 09/23/2019 12:12 PM Advance Directive(s) 09/02/2019 10:31 AM Advance Directive(s) 08/28/2019 2:17 PM Advance Directive(s) 07/05/2019 10:56 AM Advance Directive(s) 08/29/2018 10:32 AM Advance Directive(s) 08/22/2018 9:59 AM Advance Directive Response Recorded Date/ Time Living Will Yes June 16 2:28pm Power of Senior Javascript Developer Yes June 16 022 2:28pm Advance Directive Response Recorded Date/ Time Name of Medical Power of Senior Javascript Developer dilma bella August 27, 2022 9:30pm Living Will Yes August 27, 9:30pm Power of Senior Javascript Developer Yes August 27, 2022 9:30pm Advance Directive Response Recorded Date/ Time Name of Medical Power of Senior Javascript Developer dilma bella August 27, 2022 10:30pm Living Will Yes August 27, 10:30pm Power of Senior Javascript Developer Yes August 27, 2022 10:30pm Advance Directive Response Recorded Date/ Time Living Will Yes August 27, 10:30pm Power of Senior Javascript Developer Yes August 27, 2022 10:30pm Advance Directive Response Recorded Date/ Time Living Will Yes August 27, 9:30pm Power of Senior Javascript Developer Yes August 27, 2022 9:30pm Advance Directive Response Recorded Date/ Time Living Will Yes August 27, 10:30pm Power of Senior Javascript Developer Yes August 27, 2022 10:30pm Living Will No September 26 5:53pm Power of Senior Javascript Developer No September 26, 2024 5:53pm Advance Directive Response Recorded Date/ Time Living Will Yes August 27, 10:30pm Do you have a Healthcare Power of Senior Javascript Developer? Yes August 27, 2022 10:30pm Living Will No September 26 5:53pm Do you have a Healthcare Power of Senior Javascript Developer? No September 26, 2024 5:53pm Advance Directive Response Recorded Date/ Time Living Will Yes August 27, 10:30pm Do you have a Healthcare Power of Senior Javascript Developer? Yes August 27, 2022 10:30pm Date Activated Date Inactivated Comments 03/17/2025 9:32 PM 03/20/2025 6:28 PM Question Answer Comments Full Code Order Discussed With: Patient Date Activated Date Inactivated Comments 03/21/2025 1:09 PM Date Activated Date Inactivated Comments 03/17/2025 9:32 PM 03/20/2025 6:28 PM Question Answer Comments Full Code Order Discussed With: Patient Date Activated Date Inactivated Comments 03/21/2025 1:09 PM Date Activated Date Inactivated Comments 03/17/2025 9:32 PM 03/20/2025 6:28 PM Question Answer Comments Full Code Order Discussed With: Patient Chief Complaint and Reason for Visit Chief Complaint F/U, LAST SEEN DJN 1 TYPE 2 DM 4 M FU 1-3 MO F/U (PT WANTED 2 MO) 6 M FU Reason for Visit [id number] Body mass index (BMI) 35 or more CHF (congestive heart failure) Mixed hyperlipidemia Paroxysmal atrial fibrillation Diabetes Mixed hyperlipidemia Morbid obesity with BMI of 45.0-49.9, adult Postsurgical hypothyroidism [id number] Body mass index (BMI) 35 or more CHF (congestive heart failure) Mixed hyperlipidemia Paroxysmal atrial fibrillation Body mass index (BMI) 35 or more CHF (congestive heart failure) Rheumatoid arthritis Sleep apnea Chief Complaint 4 M FU 1-3 MO F/U (PT WANTED 2 MO) 6 M FU CONCERNS OF COVID, COUGH, FEVER, DIAHERRA Cough Reason for Visit Diabetes Mixed hyperlipidemia Morbid obesity with BMI of 45.0-49.9, adult Postsurgical hypothyroidism [id number] Body mass index (BMI) 35 or more CHF (congestive heart failure) Mixed hyperlipidemia Paroxysmal atrial fibrillation Body mass index (BMI) 35 or more CHF (congestive heart failure) Rheumatoid arthritis Sleep apnea Bilateral acute otitis media Bronchitis Chief Complaint [address] cough covid-N 6 M FU Annual (IMPREGNATOR AND DRIER) Encounter for screening for malignant neoplasm of Ear Infection SCREENING Other chronic sinusitis Reason for Visit Diastolic dysfunctio n Bilateral acute otitis media Maxillary sinusitis, acute Rheumatoid arthritis Sleep apnea Body mass index (BMI) 35 or more FLO III (cervical intraepithelial neoplasia grade III) with severe dysplasia 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 Lichen sclerosus Diabetes Morbid obesity with BMI of 45.0-49.9, adult LLAMAS (nonalcoholic steatohepatitis) Sleep apnea History of breast cancer Encounter for routine gynecological examination Diabetes Left otitis media Chief Complaint [address] M [address] Sinus infection [address] cough covid-N 6 M FU Annual (IMPREGNATOR AND DRIER) Encounter for screening for malignant neoplasm of Ear Infection SCREENING Other chronic sinusitis N/V/D Reason for Visit Diastolic dysfunctio n Bilateral acute otitis media Maxillary sinusitis, acute Rheumatoid arthritis Sleep apnea Body mass index (BMI) 35 or more FLO III (cervical intraepithelial neoplasia grade III) with severe dysplasia 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 Lichen sclerosus Diabetes Morbid obesity with BMI of 45.0-49.9, adult LLAMAS (nonalcoholic steatohepatitis) Sleep apnea History of breast cancer Encounter for routine gynecological examination Diabetes Left otitis media Chief Complaint 9 M FU Sinus infection ST cough covid-N 6 M FU Annual (IMPREGNATOR AND DRIER) Encounter for screening for malignant neoplasm of Ear Infection SCREENING Other chronic sinusitis N/V/D H FU Reason for Visit Diastolic dysfunctio n Bilateral acute otitis media Maxillary sinusitis, acute Rheumatoid arthritis Sleep apnea Body mass index (BMI) 35 or more FLO III (cervical intraepithelial neoplasia grade III) with severe dysplasia 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 Lichen sclerosus Diabetes Morbid obesity with BMI of 45.0-49.9, adult LLAMAS (nonalcoholic steatohepatitis) Sleep apnea History of breast cancer Encounter for routine gynecological examination Diabetes Left otitis media Diverticular disease LLAMAS (nonalcoholic steatohepatitis) Chief Complaint Annual (IMPREGNATOR AND DRIER) Encounter for screening for malignant neoplasm of Ear Infection SCREENING Other chronic sinusitis N/V/D H FU 6 M FU INT LABS Reason for Visit FLO III (cervical in traepithelial neoplasia grade III) with severe dysplasia 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 Lichen sclerosus Diabetes Morbid obesity with BMI of 45.0-49.9, adult LLAMAS (nonalcoholic steatohepatitis) Sleep apnea History of breast cancer Encounter for routine gynecological examination Diabetes Left otitis media Diverticular disease LLAMAS (nonalcoholic steatohepatitis) Fatigue Paroxysmal atrial fibrillation Pure hypercholesterolemia Right bundle branch block (RBBB) Diastolic dysfunction Chief Complaint 6 M FU Sinus & Cough 3 M FU 6 m fu R06.09, NEW BIPAP DEVICE *INVENTORY TAGGED R06.09, NEW BIPAP DEVICE *INVENTORY TAGGED Reason for Visit Obesity Rheumatoid arthritis Sleep apnea Shingles Type 2 diabetes mellitus with hyperglycemia Chronic sinusitis Obesity Dyspnea on exertion Obesity Sleep apnea Dyspnea on exertion Fatigue Paroxysmal atrial fibrillation Pure hypercholesterolemia Right bundle branch block (RBBB) Diastolic dysfunction Chief Complaint 6 m fu R06.09, NEW BIPAP DEVICE *INVENTORY TAGGED R06.09, NEW BIPAP DEVICE *INVENTORY TAGGED DYSPNEA Amb Documentation 6 M FU 2 m fu per [facility] SCREENING Reason for Visit Dyspnea on exertion Fatigue Paroxysmal atrial fibrillation Pure hypercholesterolemia Right bundle branch block (RBBB) Diastolic dysfunction Rheumatoid arthritis Sleep apnea Body mass index (BMI) 35 or more Dyspnea on exertion Fatigue Paroxysmal atrial fibrillation Pure hypercholesterolemia Right bundle branch block (RBBB) Diastolic dysfunction Chief Complaint DYSPNEA Amb Documentation 6 M FU 2 m fu per [facility] SCREENING Annual (IMPREGNATOR AND DRIER) PAP Reason for Visit Rheumatoid arthritis Sleep apnea Body mass index (BMI) 35 or more Dyspnea on exertion Fatigue Paroxysmal atrial fibrillation Pure hypercholesterolemia Right bundle branch block (RBBB) Diastolic dysfunction FLO III (cervical intraepithelial neoplasia grade III) with severe dysplasia History of left breast cancer Lichen sclerosus Encounter for routine gynecological examination Chief Complaint Admit Date Annual (IMPREGNATOR AND DRIER) September 02, 2024 9:29am 6 M FU September 02, 2024 10:37am BREAST LUMP September 05, 2024 8:41am BACK September 26, 2024 2 :37pm 6 M FU November 13, 2024 9:49 am E-ORDER November 13, 2024 12:0 7pm Sinus infection November 19, 2024 7:1 6pm Reason for Visit Admit Date FLO III (cervical intraepith elial neoplasia grade III) with severe dysplasia September 02, 2024 9:29am 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 September 02, 2024 9:29am History of left breast cancer August 122023 9:29am Left breast lump September 02, 2024 9:29am Lichen sclerosus September 02, 2024 9:29am Diabetes September 02, 2024 9:29am Morbid obesity with BMI of 45.0-49.9, ad ult September 02, 2024 9:29am LLAMAS (nonalcoholic steatohepatitis) Dece mber 2023 9:29am Sleep apnea September 02, 2024 9:29am History of breast cancer September 02, 2024 9:29am Encounter for routine gynecological exam ination September 02, 2024 9:29am Shoulder pain September 02, 2024 10:37am Dyspnea on exertion September 02, 2024 10:37am Obesity September 02, 2024 10:37am Sleep apnea September 02, 2024 10:37am Chronic diastolic (congestive) heart patti lure November 13, 2024 9:49am Dyspnea on exertion November 13, 2024 9:49 am Morbid obesity with BMI of 45.0-49.9, ad ult November 13, 2024 9:49am Paroxysmal atrial fibrillation November 9:49am Pure hypercholesterolemia November 13 9:49am Bilateral acute otitis media November 19, 2024 7:16pm Bronchitis, acute November 19, 2024 7:1 6pm Chief Complaint Admit Date Annual (IMPREGNATOR AND DRIER) September 02, 2024 9:29am 6 M FU September 02, 2024 10:37am BREAST LUMP September 05, 2024 8:41am BACK September 26, 2024 2 :37pm 6 M FU November 13, 2024 9:49 am E-ORDER November 13, 2024 12:0 7pm Sinus infection November 19, 2024 7:1 6pm Other forms of dyspnea December 03, 2024 6:52am Cough December 04, 2024 3:0 6pm cough and congestion December 07, 2024 11 :07am Reason for Visit Admit Date FLO III (cervical intraepith elial neoplasia grade III) with severe dysplasia September 02, 2024 9:29am 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 September 02, 2024 9:29am History of left breast cancer August 122023 9:29am Left breast lump September 02, 2024 9:29am Lichen sclerosus September 02, 2024 9:29am Diabetes September 02, 2024 9:29am Morbid obesity with BMI of 45.0-49.9, ad ult September 02, 2024 9:29am LLAMAS (nonalcoholic steatohepatitis) Dece mber 2023 9:29am Sleep apnea September 02, 2024 9:29am History of breast cancer September 02, 2024 9:29am Encounter for routine gynecological exam ination September 02, 2024 9:29am Shoulder pain September 02, 2024 10:37am Dyspnea on exertion September 02, 2024 10:37am Obesity September 02, 2024 10:37am Sleep apnea September 02, 2024 10:37am Chronic diastolic (congestive) heart patti lure November 13, 2024 9:49am Dyspnea on exertion November 13, 2024 9:49 am Morbid obesity with BMI of 45.0-49.9, ad ult November 13, 2024 9:49am Paroxysmal atrial fibrillation November 9:49am Pure hypercholesterolemia November 13 9:49am Bilateral acute otitis media November 19, 2024 7:16pm Bronchitis, acute November 19, 2024 7:1 6pm CHF (congestive heart failure) November 3:06pm Type 2 diabetes mellitus with hyperglyce penny December 04, 2024 3:06pm Chief Complaint Admit Date Annual (IMPREGNATOR AND DRIER) September 02, 2024 9:29am 6 M FU September 02, 2024 10:37am BREAST LUMP September 05, 2024 8:41am BACK September 26, 2024 2 :37pm 6 M FU November 13, 2024 9:49 am E-ORDER November 13, 2024 12:0 7pm Sinus infection November 19, 2024 7:1 6pm Other forms of dyspnea December 03, 2024 6:52am Cough December 04, 2024 3:0 6pm cough and congestion December 07, 2024 11 :07am DYSPNEA, SOB December 17, 2024 6:36 am Chief Complaint Admit Date BACK September 26, 2024 2 :37pm 6 M FU November 13, 2024 9:49 am E-ORDER November 13, 2024 12:0 7pm Sinus infection November 19, 2024 7:1 6pm Other forms of dyspnea December 03, 2024 6:52am Cough December 04, 2024 3:0 6pm cough and congestion December 07, 2024 11 :07am DYSPNEA, SOB December 17, 2024 6:36 am Other forms of dyspnea January 07, 2025 7:47am Other forms of dyspnea January 10, 2025 9:1 6am 3 M FU January 10, 2025 2:35pm MARILIA January 16, 2025 9:00am Reason for Visit Admit Date Chronic diastolic (congestive) heart patti lure November 13, 2024 9:49am Dyspnea on exertion November 13, 2024 9:49 am Morbid obesity with BMI of 45.0-49.9, ad ult November 13, 2024 9:49am Paroxysmal atrial fibrillation November 9:49am Pure hypercholesterolemia November 13 9:49am Bilateral acute otitis media November 19, 2024 7:16pm Bronchitis, acute November 19, 2024 7:1 6pm CHF (congestive heart failure) November 3:06pm Type 2 diabetes mellitus with hyperglyce penny December 04, 2024 3:06pm Cough January 10, 2025 2:35pm GERD (gastroesophageal reflux disease) M ay 2024 2:35pm Dyspnea on exertion January 10, 2025 2:35pm Obesity January 10, 2025 2:35pm Sleep apnea January 10, 2025 2:35pm Chief Complaint Admit Date BACK September 26, 2024 2 :37pm 6 M FU November 13, 2024 9:49 am E-ORDER November 13, 2024 12:0 7pm Sinus infection November 19, 2024 7:1 6pm Other forms of dyspnea December 03, 2024 6:52am Cough December 04, 2024 3:0 6pm cough and congestion December 07, 2024 11 :07am DYSPNEA, SOB December 17, 2024 6:36 am Other forms of dyspnea January 07, 2025 7:47am Other forms of dyspnea January 10, 2025 9:1 6am 3 M FU January 10, 2025 2:35pm MARILIA January 16, 2025 9:00am GERD w/o esophagitis January 23, 2025 7:26 am INT LABS January 23, 2025 8:31a m Reason for Visit Admit Date Chronic diastolic (congestive) heart patti lure November 13, 2024 9:49am Dyspnea on exertion November 13, 2024 9:49 am Morbid obesity with BMI of 45.0-49.9, ad ult November 13, 2024 9:49am Paroxysmal atrial fibrillation November 9:49am Pure hypercholesterolemia November 13 9:49am Bilateral acute otitis media November 19, 2024 7:16pm Bronchitis, acute November 19, 2024 7:1 6pm CHF (congestive heart failure) November 3:06pm Type 2 diabetes mellitus with hyperglyce penny December 04, 2024 3:06pm Cough January 10, 2025 2:35pm GERD (gastroesophageal reflux disease) [facility] 2024 2:35pm Dyspnea on exertion January 10, 2025 2:35pm Obesity January 10, 2025 2:35pm Sleep apnea January 10, 2025 2:35pm Constipation January 23, 2025 7:26a m Diarrhea January 23, 2025 7:26a m GERD (gastroesophageal reflux disease) [facility] 2024 7:26am Chief Complaint Admit Date 6 M FU November 13, 2024 9:49 am E-ORDER November 13, 2024 12:0 7pm Sinus infection November 19, 2024 7:1 6pm Other forms of dyspnea December 03, 2024 6:52am Cough December 04, 2024 3:0 6pm cough and congestion December 07, 2024 11 :07am DYSPNEA, SOB December 17, 2024 6:36 am Other forms of dyspnea January 07, 2025 7:47am Other forms of dyspnea January 10, 2025 9:1 6am 3 M FU January 10, 2025 2:35pm MARILIA January 16, 2025 9:00am GERD w/o esophagitis January 23, 2025 7:26 am INT LABS January 23, 2025 8:31a m COUGH >6 MO, NORMAL CXR January 24, 2025 5 :42am Reason for Visit Admit Date Chronic diastolic (congestive) heart patti lure November 13, 2024 9:49am Dyspnea on exertion November 13, 2024 9:49 am Morbid obesity with BMI of 45.0-49.9, ad ult November 13, 2024 9:49am Paroxysmal atrial fibrillation November 9:49am Pure hypercholesterolemia November 13 9:49am Bilateral acute otitis media November 19, 2024 7:16pm Bronchitis, acute November 19, 2024 7:1 6pm CHF (congestive heart failure) November 3:06pm Type 2 diabetes mellitus with hyperglyce penny December 04, 2024 3:06pm Cough January 10, 2025 2:35pm GERD (gastroesophageal reflux disease) [facility] 2024 2:35pm Dyspnea on exertion January 10, 2025 2:35pm Obesity January 10, 2025 2:35pm Sleep apnea January 10, 2025 2:35pm Constipation January 23, 2025 7:26a m Diarrhea January 23, 2025 7:26a m GERD (gastroesophageal reflux disease) M ay 2024 7:26am Fatty liver January 23, 2025 7:26a m Chief Complaint Admit Date 6 M FU November 13, 2024 9:49 am E-ORDER November 13, 2024 12:0 7pm Sinus infection November 19, 2024 7:1 6pm Other forms of dyspnea December 03, 2024 6:52am Cough December 04, 2024 3:0 6pm cough and congestion December 07, 2024 11 :07am DYSPNEA, SOB December 17, 2024 6:36 am Other forms of dyspnea January 07, 2025 7:47am Other forms of dyspnea January 10, 2025 9:1 6am 3 M FU January 10, 2025 2:35pm MARILIA January 16, 2025 9:00am GERD w/o esophagitis January 23, 2025 7:26 am INT LABS January 23, 2025 8:31a m COUGH >6 MO, NORMAL CXR January 24, 2025 5 :42am HX OF LIVER DISEASE February 05, 2025 7:15a m Chief Complaint Admit Date DYSPNEA, SOB December 17, 2024 6:36 am Other forms of dyspnea January 07, 2025 7:47am Other forms of dyspnea January 10, 2025 9:1 6am 3 M FU January 10, 2025 2:35pm MARILIA January 16, 2025 9:00am GERD w/o esophagitis January 23, 2025 7:26 am INT LABS January 23, 2025 8:31a m COUGH >6 MO, NORMAL CXR January 24, 2025 5 :42am HX OF LIVER DISEASE February 05, 2025 7:15a m Sore throat February 20, 2025 5:36 pm Reason for Visit Admit Date Cough January 10, 2025 2:35pm GERD (gastroesophageal reflux disease) [facility] 2024 2:35pm Dyspnea on exertion January 10, 2025 2:35pm Obesity January 10, 2025 2:35pm Sleep apnea January 10, 2025 2:35pm Constipation January 23, 2025 7:26a m Diarrhea January 23, 2025 7:26a m GERD (gastroesophageal reflux disease) ay 2024 7:26am Fatty liver January 23, 2025 7:26a m Pharyngitis February 20, 2025 5:36 pm Left otitis media February 20, 2025 5:36 pm Chief Complaint Admit Date Other forms of dyspnea January 07, 2025 7:47am Other forms of dyspnea January 10, 2025 9:1 6am 3 M FU January 10, 2025 2:35pm MARILIA January 16, 2025 9:00am GERD w/o esophagitis January 23, 2025 7:26 am INT LABS January 23, 2025 8:31a m COUGH >6 MO, NORMAL CXR January 24, 2025 5 :42am HX OF LIVER DISEASE February 05, 2025 7:15a m Sore throat February 20, 2025 5:36 pm Follow up April 22, 2025 8: 19am Chief Complaint Admit Date HX OF LIVER DISEASE February 05, 2025 7:15a m Sore throat February 20, 2025 5:36 pm Follow up April 22, 2025 8: 19am F40 is causing skin irritation May [id number] 10:00am Reason for Visit Admit Date Pharyngitis February 20, 2025 5:36 pm Left otitis media February 20, 2025 5:36 pm Cough April 22, 2025 8: 19am GERD (gastroesophageal reflux disease) [facility] 2024 8:19am Dyspnea on exertion April 22, 2025 8: 19am Obesity April 22, 2025 8: 19am Sleep apnea April 22, 2025 8: 19am Chief Complaint Admit Date Follow up April 22, 2025 8: 19am F40 is causing skin irritation May [id number] 10:00am 1 Y FU June 27, 2025 8 :58am EXPOSURE SOURCE June 30, 2025 1 0:59am Reason for Visit Admit Date Cough April 22, 2025 8: 19am GERD (gastroesophageal reflux disease) A [facility] 2024 8:19am Dyspnea on exertion April 22, 2025 8: 19am Obesity April 22, 2025 8: 19am Sleep apnea April 22, 2025 8: 19am Chronic diastolic (congestive) heart patti lure June 27, 2025 8:58am Dyspnea on exertion June 27, 2025 8 :58am Morbid obesity with BMI of 45.0-49.9, ad ult June 27, 2025 8:58am Paroxysmal atrial fibrillation June [id number] 8:58am Pure hypercholesterolemia June 27, 2025 8:58am Reason for Referral Specialty Diagnoses / Procedures Referred By David sotelo Referred To Contact Diagnoses Type 2 diabetes mellitus with diabetic polyneuropathy, without long-term current use of insulin (HCC) Eliceo Ambriz APRN.SALES AND MARKETING ASSISTANT [address] [address] Referral ID Status Reason Start Date Expiration Date Visits Re quested Visits Authorized [id number] Closed 1 1 Specialty Diagnoses / Procedures Referred By David sotelo Referred To Contact Eliceo Ambriz APRN.SALES AND MARKETING ASSISTANT [address] [address] Referral ID Status Reason Start Date Expiration Date Visits Re quested Visits Authorized [id number] Closed 1 1 Specialty Diagnoses / Procedures Referred By Contac t Referred To Contact CT IMAGING Diagnoses Left lower quadrant abdominal pain Procedures CT ABD/PEL W IVCON CT ABD & PELVIS W/CONTRAST Uriah Mueller, COMMUTER PILOT.SALES AND MARKETING ASSISTANT [id number] [place] [address] Referral ID Status Reason Start Date Expiration Date Visits Requested Visits Authorized [id number] Pending Review Auto-Generat ed Referral 03/11/2024 04/10/2025 1 1 Specialty Diagnoses / Procedures Referred By Contac t Referred To Contact [facility] Diagnoses Metabolic dysfunction-associated steatohepatitis (MASH) Procedures DDI VIBRATION CONTROLLED TRANSIENT ELASTOGRAPHY (VCTE) LIVER ELASTOGRAPHY W/O IMAG W/I&R Uriah Mueller, COMMUTER PILOT.SALES AND MARKETING ASSISTANT [address] [place] [address] [facility] [id number] Referral ID Status Reason Start Date Expiration Date V isits Requested Visits Authorized [id number] Closed Auto-Generate d Referral 03/11/2024 03/11/2025 1 1 Specialty Diagnoses / Procedures Referred By Contac t Referred To Contact US IMAGING Diagnoses Metabolic dysfunction-associated steatohepatitis (MASH) Procedures US ABD RIGHT UPPER QUADRANT US ABDOMINAL REAL TIME W/IMAGE LIMITED Uriah Mueller, COMMUTER PILOT.SALES AND MARKETING ASSISTANT [address] [place] [address] [place] [address] Referral ID Status Reason Start Date Expiration Date Visits Requested Visits Authorized [id number] Pending Review Auto-Generat ed Referral 03/11/2024 04/10/2025 1 1 Referral ID Status Reason Start Date Expiration Date V isits Requested Visits Authorized [id number] Closed Auto-Generate d Referral 03/11/2024 04/10/2025 1 1 Specialty Diagnoses / Procedures Referred By Contac t Referred To Contact Diagnoses Acquired hypothyroidism Type 2 diabetes mellitus with hyperglycemia, without long-term current use of insulin (HCC) Procedures CONSULT TO DIABETES EDUCATION [facility] MEDICAL NUTRITION ASSMT&IVNTJ INDIV EACH 15 NE MEDICAL NUTRITION ASSMT&IVNTJ INDIV EACH 15 NE MEDICAL NUTRITION ASSMT&IVNTJ INDIV EACH 15 NE MEDICAL NUTRITION ASSMT&IVNTJ INDIV EACH 15 NE Vaughn Decker MD [address] [place] [address] Referral ID Status Reason Start Date Expiration Date Visits Requested Visits Authorized [id number] Authorized PCP Requested Referral 04/17/2024 04/17/2025 1 1 Specialty Diagnoses / Procedures Referred By Contac t Referred To Contact Diagnoses Primary osteoarthritis of left knee BMI 50.0-59.9, adult (HCC) Elevated hemoglobin A1c Procedures ENDOCRINE MEDICAL WEIGHT MANAGEMENT OFFICE/OUTPATIENT [facility] 60 MINUTES Royer Ferguson PA-C [address] [place] [address] Referral ID Status Reason Start Date Expiration Date Visits Requested Visits Authorized [id number] Authorized PCP Requested Referral 08/07/2025 1 1 Additional Source Comments INFORMATION SOURCE (unrecogn ized section and content) DATE CREATED AUTHOR 02/17/2019 [facility] DATE CREATED AUTHOR AUTHOR'S ORGANIZ ATION 05/12/2020 [facility] DATE CREATED AUTHOR AUTHOR'S ORGANIZ ATION 06/05/2020 [facility] DATE CREATED AUTHOR AUTHOR'S ORGANIZ ATION 10/30/2024 [facility] DATE CREATED AUTHOR AUTHOR'S ORGANIZ ATION 04/24/2025 [facility] DATE CREATED AUTHOR AUTHOR'S ORGANIZ ATION 04/29/2025 [facility] DATE CREATED AUTHOR AUTHOR'S ORGANIZ ATION 05/23/2025 [facility] DATE CREATED AUTHOR AUTHOR'S ORGANIZ ATION 05/30/2025 [facility] DATE CREATED AUTHOR AUTHOR[facility]S ORGANIZ ATION [facility] Goals (unrecognized section and content) Goals may be documented in a n alternate sectionGoals may be documented in an alternate sectionGoals may be documented in an alternate sectionGoals may be documented in an alternate sectionGoals may be documented in an alternate sectionGoals may be documented in an alternate sectionGoals may be documented in an alternate sectionGoals may be documented in an alternate sectionGoals may be documented in an alternate sectionGoals may be documented in an alternate sectionGoals may be documented in an alternate sectionGoals may be documented in an alternate sectionGoals may be documented in an alternate sectionGoals may be documented in an alternate sectionGoals may be documented in an alternate sectionGoals may be documented in an alternate sectionGoals may be documented in an alternate sectionGoals may be documented in an alternate sectionGoals may be documented in an alternate sectionGoals may be documented in an alternate sectionGoals may be documented in an alternate section Source Comments (unrecognize d section and content) In the event this informatio n is protected by the Federal Confidentiality of Alcohol and Drug Abuse Patient Records regulations: The Federal rules restrict any use of the information to criminally investigate or prosecute any alcohol or drug abuse patient.[facility] the event this information is protected by the Federal Confidentiality of Alcohol and Drug Abuse Patient Records regulations: The Federal rules restrict any use of the information to criminally investigate or prosecute any alcohol or drug abuse patient.[facility] the event this information is protected by the Federal Confidentiality of Alcohol and Drug Abuse Patient Records regulations: The Federal rules restrict any use of the information to criminally investigate or prosecute any alcohol or drug abuse patient.[facility] the event this information is protected by the Federal Confidentiality of Alcohol and Drug Abuse Patient Records regulations: The Federal rules restrict any use of the information to criminally investigate or prosecute any alcohol or drug abuse patient.[facility] the event this information is protected by the Federal Confidentiality of Alcohol and Drug Abuse Patient Records regulations: The Federal rules restrict any use of the information to criminally investigate or prosecute any alcohol or drug abuse patient.[facility] the event this information is protected by the Federal Confidentiality of Alcohol and Drug Abuse Patient Records regulations: The Federal rules restrict any use of the information to criminally investigate or prosecute any alcohol or drug abuse patient.[facility] the event this information is protected by the Federal Confidentiality of Alcohol and Drug Abuse Patient Records regulations: The Federal rules restrict any use of the information to criminally investigate or prosecute any alcohol or drug abuse patient.[facility] the event this information is protected by the Federal Confidentiality of Alcohol and Drug Abuse Patient Records regulations: The Federal rules restrict any use of the information to criminally investigate or prosecute any alcohol or drug abuse patient.[facility]In the event this information is protected by the Federal Confidentiality of Alcohol and Drug Abuse Patient Records regulations: The Federal rules restrict any use of the information to criminally investigate or prosecute any alcohol or drug abuse patient.[facility]In the event this information is protected by the Federal Confidentiality of Alcohol and Drug Abuse Patient Records regulations: The Federal rules restrict any use of the information to criminally investigate or prosecute any alcohol or drug abuse patient.[facility]In the event this information is protected by the Federal Confidentiality of Alcohol and Drug Abuse Patient Records regulations: The Federal rules restrict any use of the information to criminally investigate or prosecute any alcohol or drug abuse patient.[facility]In the event this information is protected by the Federal Confidentiality of Alcohol and Drug Abuse Patient Records regulations: The Federal rules restrict any use of the information to criminally investigate or prosecute any alcohol or drug abuse patient.[facility]In the event this information is protected by the Federal Confidentiality of Alcohol and Drug Abuse Patient Records regulations: The Federal rules restrict any use of the information to criminally investigate or prosecute any alcohol or drug abuse patient.[facility]In the event this information is protected by the Federal Confidentiality of Alcohol and Drug Abuse Patient Records regulations: The Federal rules restrict any use of the information to criminally investigate or prosecute any alcohol or drug abuse patient.[facility]In the event this information is protected by the Federal Confidentiality of Alcohol and Drug Abuse Patient Records regulations: The Federal rules restrict any use of the information to criminally investigate or prosecute any alcohol or drug abuse patient.[facility]In the event this information is protected by the Federal Confidentiality of Alcohol and Drug Abuse Patient Records regulations: The Federal rules restrict any use of the information to criminally investigate or prosecute any alcohol or drug abuse patient.[facility]In the event this information is protected by the Federal Confidentiality of Alcohol and Drug Abuse Patient Records regulations: The Federal rules restrict any use of the information to criminally investigate or prosecute any alcohol or drug abuse patient.[facility]In the event this information is protected by the Federal Confidentiality of Alcohol and Drug Abuse Patient Records regulations: The Federal rules restrict any use of the information to criminally investigate or prosecute any alcohol or drug abuse patient.[facility]In the event this information is protected by the Federal Confidentiality of Alcohol and Drug Abuse Patient Records regulations: The Federal rules restrict any use of the information to criminally investigate or prosecute any alcohol or drug abuse patient.[facility]In the event this information is protected by the Federal Confidentiality of Alcohol and Drug Abuse Patient Records regulations: The Federal rules restrict any use of the information to criminally investigate or prosecute any alcohol or drug abuse patient.[facility]In the event this information is protected by the Federal Confidentiality of Alcohol and Drug Abuse Patient Records regulations: The Federal rules restrict any use of the information to criminally investigate or prosecute any alcohol or drug abuse patient.[facility]In the event this information is protected by the Federal Confidentiality of Alcohol and Drug Abuse Patient Records regulations: The Federal rules restrict any use of the information to criminally investigate or prosecute any alcohol or drug abuse patient.[facility]In the event this information is protected by the Federal Confidentiality of Alcohol and Drug Abuse Patient Records regulations: The Federal rules restrict any use of the information to criminally investigate or prosecute any alcohol or drug abuse patient.[facility]In the event this information is protected by the Federal Confidentiality of Alcohol and Drug Abuse Patient Records regulations: The Federal rules restrict any use of the information to criminally investigate or prosecute any alcohol or drug abuse patient.[facility]In the event this information is protected by the Federal Confidentiality of Alcohol and Drug Abuse Patient Records regulations: The Federal rules restrict any use of the information to criminally investigate or prosecute any alcohol or drug abuse patient.[facility]In the event this information is protected by the Federal Confidentiality of Alcohol and Drug Abuse Patient Records regulations: The Federal rules restrict any use of the information to criminally investigate or prosecute any alcohol or drug abuse patient.[facility]In the event this information is protected by the Federal Confidentiality of Alcohol and Drug Abuse Patient Records regulations: The Federal rules restrict any use of the information to criminally investigate or prosecute any alcohol or drug abuse patient.[facility]In the event this information is protected by the Federal Confidentiality of Alcohol and Drug Abuse Patient Records regulations: The Federal rules restrict any use of the information to criminally investigate or prosecute any alcohol or drug abuse patient.[facility]In the event this information is protected by the Federal Confidentiality of Alcohol and Drug Abuse Patient Records regulations: The Federal rules restrict any use of the information to criminally investigate or prosecute any alcohol or drug abuse patient.[facility]In the event this information is protected by the Federal Confidentiality of Alcohol and Drug Abuse Patient Records regulations: The Federal rules restrict any use of the information to criminally investigate or prosecute any alcohol or drug abuse patient.[facility]In the event this information is protected by the Federal Confidentiality of Alcohol and Drug Abuse Patient Records regulations: The Federal rules restrict any use of the information to criminally investigate or prosecute any alcohol or drug abuse patient.[facility]In the event this information is protected by the Federal Confidentiality of Alcohol and Drug Abuse Patient Records regulations: The Federal rules restrict any use of the information to criminally investigate or prosecute any alcohol or drug abuse patient.[facility]In the event this information is protected by the Federal Confidentiality of Alcohol and Drug Abuse Patient Records regulations: The Federal rules restrict any use of the information to criminally investigate or prosecute any alcohol or drug abuse patient.[facility]In the event this information is protected by the Federal Confidentiality of Alcohol and Drug Abuse Patient Records regulations: The Federal rules restrict any use of the information to criminally investigate or prosecute any alcohol or drug abuse patient.[facility]In the event this information is protected by the Federal Confidentiality of Alcohol and Drug Abuse Patient Records regulations: The Federal rules restrict any use of the information to criminally investigate or prosecute any alcohol or drug abuse patient.[facility]In the event this information is protected by the Federal Confidentiality of Alcohol and Drug Abuse Patient Records regulations: The Federal rules restrict any use of the information to criminally investigate or prosecute any alcohol or drug abuse patient.[facility]In the event this information is protected by the Federal Confidentiality of Alcohol and Drug Abuse Patient Records regulations: The Federal rules restrict any use of the information to criminally investigate or prosecute any alcohol or drug abuse patient.[facility] [place]stownIn the event this information is protected by the Federal Confidentiality of Alcohol and Drug Abuse Patient Records regulations: The Federal rules restrict any use of the information to criminally investigate or prosecute any alcohol or drug abuse patient.[facility]stownIn the event this information is protected by the Federal Confidentiality of Alcohol and Drug Abuse Patient Records regulations: The Federal rules restrict any use of the information to criminally investigate or prosecute any alcohol or drug abuse patient.[facility]In the event this information is protected by the Federal Confidentiality of Alcohol and Drug Abuse Patient Records regulations: The Federal rules restrict any use of the information to criminally investigate or prosecute any alcohol or drug abuse patient.[facility] [place]In the event this information is protected by the Federal Confidentiality of Alcohol and Drug Abuse Patient Records regulations: The Federal rules restrict any use of the information to criminally investigate or prosecute any alcohol or drug abuse patient.[facility]stownIn the event this information is protected by the Federal Confidentiality of Alcohol and Drug Abuse Patient Records regulations: The Federal rules restrict any use of the information to criminally investigate or prosecute any alcohol or drug abuse patient.[facility]stownIn the event this information is protected by the Federal Confidentiality of Alcohol and Drug Abuse Patient Records regulations: The Federal rules restrict any use of the information to criminally investigate or prosecute any alcohol or drug abuse patient.[facility]stownIn the event this information is protected by the Federal Confidentiality of Alcohol and Drug Abuse Patient Records regulations: The Federal rules restrict any use of the information to criminally investigate or prosecute any alcohol or drug abuse patient.[facility] [place]In the event this information is protected by the Federal Confidentiality of Alcohol and Drug Abuse Patient Records regulations: The Federal rules restrict any use of the information to criminally investigate or prosecute any alcohol or drug abuse patient.[facility] [place]In the event this information is protected by the Federal Confidentiality of Alcohol and Drug Abuse Patient Records regulations: The Federal rules restrict any use of the information to criminally investigate or prosecute any alcohol or drug abuse patient.[facility] [place]In the event this information is protected by the Federal Confidentiality of Alcohol and Drug Abuse Patient Records regulations: The Federal rules restrict any use of the information to criminally investigate or prosecute any alcohol or drug abuse patient.[facility] [place]In the event this information is protected by the Federal Confidentiality of Alcohol and Drug Abuse Patient Records regulations: The Federal rules restrict any use of the information to criminally investigate or prosecute any alcohol or drug abuse patient.[facility] [place]In the event this information is protected by the Federal Confidentiality of Alcohol and Drug Abuse Patient Records regulations: The Federal rules restrict any use of the information to criminally investigate or prosecute any alcohol or drug abuse patient.[facility] [place]In the event this information is protected by the Federal Confidentiality of Alcohol and Drug Abuse Patient Records regulations: The Federal rules restrict any use of the information to criminally investigate or prosecute any alcohol or drug abuse patient.[facility] [place]In the event this information is protected by the Federal Confidentiality of Alcohol and Drug Abuse Patient Records regulations: The Federal rules restrict any use of the information to criminally investigate or prosecute any alcohol or drug abuse patient.[facility] [place]In the event this information is protected by the Federal Confidentiality of Alcohol and Drug Abuse Patient Records regulations: The Federal rules restrict any use of the information to criminally investigate or prosecute any alcohol or drug abuse patient.[facility] [place]In the event this information is protected by the Federal Confidentiality of Alcohol and Drug Abuse Patient Records regulations: The Federal rules restrict any use of the information to criminally investigate or prosecute any alcohol or drug abuse patient.[facility] [place]In the event this information is protected by the Federal Confidentiality of Alcohol and Drug Abuse Patient Records regulations: The Federal rules restrict any use of the information to criminally investigate or prosecute any alcohol or drug abuse patient.[facility] [place]In the event this information is protected by the Federal Confidentiality of Alcohol and Drug Abuse Patient Records regulations: The Federal rules restrict any use of the information to criminally investigate or prosecute any alcohol or drug abuse patient.[facility] [place]In the event this information is protected by the Federal Confidentiality of Alcohol and Drug Abuse Patient Records regulations: The Federal rules restrict any use of the information to criminally investigate or prosecute any alcohol or drug abuse patient.[facility] [place]In the event this information is protected by the Federal Confidentiality of Alcohol and Drug Abuse Patient Records regulations: The Federal rules restrict any use of the information to criminally investigate or prosecute any alcohol or drug abuse patient.[facility] [place]In the event this information is protected by the Federal Confidentiality of Alcohol and Drug Abuse Patient Records regulations: The Federal rules restrict any use of the information to criminally investigate or prosecute any alcohol or drug abuse patient.[facility] [place]In the event this information is protected by the Federal Confidentiality of Alcohol and Drug Abuse Patient Records regulations: The Federal rules restrict any use of the information to criminally investigate or prosecute any alcohol or drug abuse patient.[facility] [place]In the event this information is protected by the Federal Confidentiality of Alcohol and Drug Abuse Patient Records regulations: The Federal rules restrict any use of the information to criminally investigate or prosecute any alcohol or drug abuse patient.[facility] [place]In the event this information is protected by the Federal Confidentiality of Alcohol and Drug Abuse Patient Records regulations: The Federal rules restrict any use of the information to criminally investigate or prosecute any alcohol or drug abuse patient.[facility] [place]In the event this information is protected by the Federal Confidentiality of Alcohol and Drug Abuse Patient Records regulations: The Federal rules restrict any use of the information to criminally investigate or prosecute any alcohol or drug abuse patient.[facility] [place]In the event this information is protected by the Federal Confidentiality of Alcohol and Drug Abuse Patient Records regulations: The Federal rules restrict any use of the information to criminally investigate or prosecute any alcohol or drug abuse patient.[facility] [place]In the event this information is protected by the Federal Confidentiality of Alcohol and Drug Abuse Patient Records regulations: The Federal rules restrict any use of the information to criminally investigate or prosecute any alcohol or drug abuse patient.[facility] [place]In the event this information is protected by the Federal Confidentiality of Alcohol and Drug Abuse Patient Records regulations: The Federal rules restrict any use of the information to criminally investigate or prosecute any alcohol or drug abuse patient.[facility] [place]In the event this information is protected by the Federal Confidentiality of Alcohol and Drug Abuse Patient Records regulations: The Federal rules restrict any use of the information to criminally investigate or prosecute any alcohol or drug abuse patient.[facility] [place]In the event this information is protected by the Federal Confidentiality of Alcohol and Drug Abuse Patient Records regulations: The Federal rules restrict any use of the information to criminally investigate or prosecute any alcohol or drug abuse patient.[facility] [place]In the event this information is protected by the Federal Confidentiality of Alcohol and Drug Abuse Patient Records regulations: The Federal rules restrict any use of the information to criminally investigate or prosecute any alcohol or drug abuse patient.[facility] [place]In the event this information is protected by the Federal Confidentiality of Alcohol and Drug Abuse Patient Records regulations: The Federal rules restrict any use of the information to criminally investigate or prosecute any alcohol or drug abuse patient.[facility] [place]In the event this information is protected by the Federal Confidentiality of Alcohol and Drug Abuse Patient Records regulations: The Federal rules restrict any use of the information to criminally investigate or prosecute any alcohol or drug abuse patient.[facility] [place]In the event this information is protected by the Federal Confidentiality of Alcohol and Drug Abuse Patient Records regulations: The Federal rules restrict any use of the information to criminally investigate or prosecute any alcohol or drug abuse patient.[facility] [place]In the event this information is protected by the Federal Confidentiality of Alcohol and Drug Abuse Patient Records regulations: The Federal rules restrict any use of the information to criminally investigate or prosecute any alcohol or drug abuse patient.[facility] [place]In the event this information is protected by the Federal Confidentiality of Alcohol and Drug Abuse Patient Records regulations: The Federal rules restrict any use of the information to criminally investigate or prosecute any alcohol or drug abuse patient.[facility] [place]In the event this information is protected by the Federal Confidentiality of Alcohol and Drug Abuse Patient Records regulations: The Federal rules restrict any use of the information to criminally investigate or prosecute any alcohol or drug abuse patient.[facility] [place]In the event this information is protected by the Federal Confidentiality of Alcohol and Drug Abuse Patient Records regulations: The Federal rules restrict any use of the information to criminally investigate or prosecute any alcohol or drug abuse patient.[facility] [place]In the event this information is protected by the Federal Confidentiality of Alcohol and Drug Abuse Patient Records regulations: The Federal rules restrict any use of the information to criminally investigate or prosecute any alcohol or drug abuse patient.[facility] [place]In the event this information is protected by the Federal Confidentiality of Alcohol and Drug Abuse Patient Records regulations: The Federal rules restrict any use of the information to criminally investigate or prosecute any alcohol or drug abuse patient.[facility] [place]In the event this information is protected by the Federal Confidentiality of Alcohol and Drug Abuse Patient Records regulations: The Federal rules restrict any use of the information to criminally investigate or prosecute any alcohol or drug abuse patient.[facility] [place]In the event this information is protected by the Federal Confidentiality of Alcohol and Drug Abuse Patient Records regulations: The Federal rules restrict any use of the information to criminally investigate or prosecute any alcohol or drug abuse patient.[facility] [place]In the event this information is protected by the Federal Confidentiality of Alcohol and Drug Abuse Patient Records regulations: The Federal rules restrict any use of the information to criminally investigate or prosecute any alcohol or drug abuse patient.[facility] [place]In the event this information is protected by the Federal Confidentiality of Alcohol and Drug Abuse Patient Records regulations: The Federal rules restrict any use of the information to criminally investigate or prosecute any alcohol or drug abuse patient.[facility] [place]In the event this information is protected by the Federal Confidentiality of Alcohol and Drug Abuse Patient Records regulations: The Federal rules restrict any use of the information to criminally investigate or prosecute any alcohol or drug abuse patient.[facility] [place]In the event this information is protected by the Federal Confidentiality of Alcohol and Drug Abuse Patient Records regulations: The Federal rules restrict any use of the information to criminally investigate or prosecute any alcohol or drug abuse patient.[facility] [place]In the event this information is protected by the Federal Confidentiality of Alcohol and Drug Abuse Patient Records regulations: The Federal rules restrict any use of the information to criminally investigate or prosecute any alcohol or drug abuse patient.[facility] [place]In the event this information is protected by the Federal Confidentiality of Alcohol and Drug Abuse Patient Records regulations: The Federal rules restrict any use of the information to criminally investigate or prosecute any alcohol or drug abuse patient.[facility] [place]In the event this information is protected by the Federal Confidentiality of Alcohol and Drug Abuse Patient Records regulations: The Federal rules restrict any use of the information to criminally investigate or prosecute any alcohol or drug abuse patient.[facility] [place]In the event this information is protected by the Federal Confidentiality of Alcohol and Drug Abuse Patient Records regulations: The Federal rules restrict any use of the information to criminally investigate or prosecute any alcohol or drug abuse patient.[facility] [place]In the event this information is protected by the Federal Confidentiality of Alcohol and Drug Abuse Patient Records regulations: The Federal rules restrict any use of the information to criminally investigate or prosecute any alcohol or drug abuse patient.[facility] [place]In the event this information is protected by the Federal Confidentiality of Alcohol and Drug Abuse Patient Records regulations: The Federal rules restrict any use of the information to criminally investigate or prosecute any alcohol or drug abuse patient.[facility] [place]In the event this information is protected by the Federal Confidentiality of Alcohol and Drug Abuse Patient Records regulations: The Federal rules restrict any use of the information to criminally investigate or prosecute any alcohol or drug abuse patient.[facility] [place]In the event this information is protected by the Federal Confidentiality of Alcohol and Drug Abuse Patient Records regulations: The Federal rules restrict any use of the information to criminally investigate or prosecute any alcohol or drug abuse patient.[facility] [place]In the event this information is protected by the Federal Confidentiality of Alcohol and Drug Abuse Patient Records regulations: The Federal rules restrict any use of the information to criminally investigate or prosecute any alcohol or drug abuse patient.[facility] [place]In the event this information is protected by the Federal Confidentiality of Alcohol and Drug Abuse Patient Records regulations: The Federal rules restrict any use of the information to criminally investigate or prosecute any alcohol or drug abuse patient.[facility] [place]In the event this information is protected by the Federal Confidentiality of Alcohol and Drug Abuse Patient Records regulations: The Federal rules restrict any use of the information to criminally investigate or prosecute any alcohol or drug abuse patient.[facility] [place]In the event this information is protected by the Federal Confidentiality of Alcohol and Drug Abuse Patient Records regulations: The Federal rules restrict any use of the information to criminally investigate or prosecute any alcohol or drug abuse patient.[facility] [place]In the event this information is protected by the Federal Confidentiality of Alcohol and Drug Abuse Patient Records regulations: The Federal rules restrict any use of the information to criminally investigate or prosecute any alcohol or drug abuse patient.[facility] [place]In the event this information is protected by the Federal Confidentiality of Alcohol and Drug Abuse Patient Records regulations: The Federal rules restrict any use of the information to criminally investigate or prosecute any alcohol or drug abuse patient.[facility] [place]In the event this information is protected by the Federal Confidentiality of Alcohol and Drug Abuse Patient Records regulations: The Federal rules restrict any use of the information to criminally investigate or prosecute any alcohol or drug abuse patient.[facility] [place]In the event this information is protected by the Federal Confidentiality of Alcohol and Drug Abuse Patient Records regulations: The Federal rules restrict any use of the information to criminally investigate or prosecute any alcohol or drug abuse patient.[facility] [place]In the event this information is protected by the Federal Confidentiality of Alcohol and Drug Abuse Patient Records regulations: The Federal rules restrict any use of the information to criminally investigate or prosecute any alcohol or drug abuse patient.[facility] [place]In the event this information is protected by the Federal Confidentiality of Alcohol and Drug Abuse Patient Records regulations: The Federal rules restrict any use of the information to criminally investigate or prosecute any alcohol or drug abuse patient.[facility] [place]In the event this information is protected by the Federal Confidentiality of Alcohol and Drug Abuse Patient Records regulations: The Federal rules restrict any use of the information to criminally investigate or prosecute any alcohol or drug abuse patient.[facility] [place]In the event this information is protected by the Federal Confidentiality of Alcohol and Drug Abuse Patient Records regulations: The Federal rules restrict any use of the information to criminally investigate or prosecute any alcohol or drug abuse patient.[facility] [place]In the event this information is protected by the Federal Confidentiality of Alcohol and Drug Abuse Patient Records regulations: The Federal rules restrict any use of the information to criminally investigate or prosecute any alcohol or drug abuse patient.[facility] [place]In the event this information is protected by the Federal Confidentiality of Alcohol and Drug Abuse Patient Records regulations: The Federal rules restrict any use of the information to criminally investigate or prosecute any alcohol or drug abuse patient.[facility] [place]In the event this information is protected by the Federal Confidentiality of Alcohol and Drug Abuse Patient Records regulations: The Federal rules restrict any use of the information to criminally investigate or prosecute any alcohol or drug abuse patient.[facility] [place]In the event this information is protected by the Federal Confidentiality of Alcohol and Drug Abuse Patient Records regulations: The Federal rules restrict any use of the information to criminally investigate or prosecute any alcohol or drug abuse patient.[facility] [place]In the event this information is protected by the Federal Confidentiality of Alcohol and Drug Abuse Patient Records regulations: The Federal rules restrict any use of the information to criminally investigate or prosecute any alcohol or drug abuse patient.[facility] [place]In the event this information is protected by the Federal Confidentiality of Alcohol and Drug Abuse Patient Records regulations: The Federal rules restrict any use of the information to criminally investigate or prosecute any alcohol or drug abuse patient.[facility] [place]In the event this information is protected by the Federal Confidentiality of Alcohol and Drug Abuse Patient Records regulations: The Federal rules restrict any use of the information to criminally investigate or prosecute any alcohol or drug abuse patient.[facility] [place]In the event this information is protected by the Federal Confidentiality of Alcohol and Drug Abuse Patient Records regulations: The Federal rules restrict any use of the information to criminally investigate or prosecute any alcohol or drug abuse patient.[facility] [place]In the event this information is protected by the Federal Confidentiality of Alcohol and Drug Abuse Patient Records regulations: The Federal rules restrict any use of the information to criminally investigate or prosecute any alcohol or drug abuse patient.[facility] [place] Reason for Visit (unrecogniz ed section and content) Reason Comments Injections Specialty Diagnoses / Procedures Referred By Contac t Referred To Contact ORTHOPAEDIC SURGERY Diagnoses Unilateral primary osteoarthritis, left knee Procedures EUFLEXXA INJ PER DOSE EUFLEXXA OR PAYOR PREFERRED Royer Ferguson PA-C [id number] [place] [address] [facility] [address] [place] [address] Referral ID Status Reason Start Date Expiration Date V isits Requested Visits Authorized [id number] Authorized 08/16/2024 09/10/2024 99 99 Reason Comments Follow Up Tests Results labs---->needs a dditional labs Reason Comments Cardiology Follow Up recovering from ear infection, bronchitis, and sinus infection Reason Comments Patient Update Reason Comments Appointment Eliquis Patient Assi stance Reason Comments PA--VICTOZA 2021 Reason Comments Medication Problem Reason Comments Follow Up Tests Results Labs, stools and US---->needs labs in 3 months, US in 6 months Reason Comments Diverticulitis Needs colonoscopy in 3 months Reason Comments Diabetes Established Patient Reason Comments Refill Request Omeprazole Reason Comments Follow Up Reason Onset Date Comments Refill Request 06/15/2023 Reason Comments Refill Request Reason Comments Patient Question Reason Comments Non-insulin Dependent Diabetes Mellitus Reason Comments PA--Ozempic 0.25mg/0.5mg (2mg/3ml) Reason Comments Abdominal Pain Specialty Diagnoses / Procedures Referred By Contac t Referred To Contact CT IMAGING Diagnoses Left lower quadrant abdominal pain Procedures CT ABD/PEL W IVCON CT ABD & PELVIS W/CONTRAST Uriah Mueller, COMMUTER [employer]ING ASSISTANT [address] [place] [address] [id number] Referral ID Status Reason Start Date Expiration Date V isits Requested Visits Authorized [id number] Closed Auto-Generate d Referral 03/11/2024 04/10/2025 1 1 Reason Comments Results Reason Comments Follow Up Tests Results Fibroscan---->ne eds f/u OV in 1 month Reason Comments Recheck Reason Comments Electronic Communication With Dr. 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 Reason Onset Date Comments Refill Request 05/17/2024 Reason Comments Appointment Needs OV with RN CARDIOVASCULAR ICU or PA Reason Onset Date Comments Refill Request 05/22/2024 Reason Comments High Blood Sugar Reason Comments Radio Gen RMP Specialty Diagnoses / Procedures Referred By Contac t Referred To Contact XR IMAGING Diagnoses Pain Procedures XR KNEE GENERAL 4V AP BOTH/PA BOTH/LAT/MERC LEFT RADIOLOGIC EXAM KNEE COMPLETE 4/MORE VIEWS Royer Ferguson, PA-C [address] [place] [address] [place] [address] Referral ID Status Reason Start Date Expiration Date V isits Requested Visits Authorized [id number] Closed Auto-Generate d Referral 08/06/2024 09/05/2025 1 1 Reason Comments New Reason Comments Established Patient Reason Comments Formulary Changes Reason Onset Date Comments Refill Request 10/07/2024 Reason Onset Date Comments Refill Request 10/09/2024 Reason Comments Medication Problem Appointment Reason Comments Non-insulin Dependent Diabetes Mellitus Thyroid Problem Reason Onset Date Comments Refill Request 12/30/2024 Reason Onset Date Comments New Patient 10/28/2024 Reason Comments CoPat Start Reason Comments Home Care MD to follow for HHC Reason Comments Home Care Reason Comments Home Care Confirmation call Reason Comments Patient Update Home care Reason Onset Date Comments Refill Request 03/20/2025 Reason Onset Date Comments Refill Request 03/21/2025 Reason Comments CoPat Management FOR IDC USE ONLY Reason Onset Date Comments Opened In Error 03/26/2025 Reason Comments Diverticulitis Reason Comments Home Care Clarification of IV dosing order Flagyl. Reason Comments New Patient Diverticulitis Reason Comments Anesthesia Consult Reason Comments Home Care Patient update Reason Comments Patient Update Reason Comments Preparations For Surgery Reason Comments Schedule Surgery New OR date to 05/22 Reason Comments Care Coordination Follow up Care Teams (unrecognized sec tion and content) Parole Officer Relationship Specialty Start Date End Date Shiraz Stephens MD [address] [place] [address] PCP - General Internal Medicine 09/18/21 Ryan Tovar MD Consulting Ent - Otolaryngology 06/23/20 [place] [address] [place], [place] [id number] [facility] 11/02/21 Parole Officer Relationship Specialty Start Date End Date Shiraz Stephens MD [address] [place], [place] [id number]- PCP - General Internal Medicine 09/18/21 Ryan Tovar MD Consulting Ent - Otolaryngology 06/23/20 [place] [address] [place], [place] [id number] [facility] 11/02/21 Parole Officer Relationship Specialty Start Date End Date Shiraz Stephens MD [address] [place] [address] PCP - General Internal Medicine 09/18/21 Ryan Tovar MD Consulting Ent - Otolaryngology 06/23/20 [place] [address] [place], [place] [id number] [facility] 11/02/21 [place] [address] [place] [address] [employer] Player Cardiology 02/14/22 Parole Officer Relationship Specialty Start Date End Date Shiraz Stephens MD [address] [place] [address] PCP - General Internal Medicine 09/18/21 Ryan Tovar MD Consulting Ent - Otolaryngology 06/23/20 [place] [address] [place], [place] [address] [facility] 11/02/21 [facility] [place] [address] [place] [address] [employer] Cardiology 02/14/22 Parole Officer Relationship Specialty Start Date End Date Leonora Davalos, COMMUTER PILOT.SALES AND MARKETING ASSISTANT [address] [address] PCP - General Family Practice 02/21/22 Ryan Tovar MD Consulting Ent - Otolaryngology 06/23/20 [place] [address] [place], [place] [id number] [facility] 11/02/21 DimitriAly zamudio [facility] [place] [address] [employer] Fiddle Player Cardiology 02/14/22 Parole Officer Relationship Specialty Start Date End Date Leonora Davalos, COMMUTER PILOT.SALES AND MARKETING ASSISTANT [address] [address] PCP - General Family Practice 02/21/22 Ryan Tovar MD Consulting Ent - Otolaryngology 06/23/20 [place] [address] [place] [address] [facility] 11/02/21 Aly Mosley [facility] [place] [address] [employer] Player Cardiology 02/14/22 Parole Officer Relationship Specialty Start Date End Date Leonora Davalos, COMMUTER PILOT.SALES AND MARKETING ASSISTANT [address] [address] PCP - General Family Practice 02/21/22 Ryan Tovar MD Consulting Ent - Otolaryngology 06/23/20 [place] [address] [place] [address] [facility] 11/02/21 Aly [place]ley [place] [address] [employer] Fiddle Player Cardiology 02/14/22 Parole Officer Relationship Specialty Start Date End Date Leonora Davalos, COMMUTER PILOT.SALES AND MARKETING ASSISTANT [address] [place] [address] PCP - General Family Practice 02/21/22 Ryan Tovar MD Consulting Ent - Otolaryngology 06/23/20 [place] [address] [place] [address] [facility] 11/02/21 DimitriAly zamudio [facility] [place] [address] [employer] Player Cardiology 02/14/22 Parole Officer Relationship Specialty Start Date End Date Leonora Davalos, COMMUTER PILOT.SALES AND MARKETING ASSISTANT [address] [place] [address] PCP - General Family Practice 02/21/22 Ryan Tovar MD Consulting Ent - Otolaryngology 06/23/20 [place] [address] [place] [address] [facility] 11/02/21 Aly Mosley [facility] [place] [address] [employer] Fiddle Player Cardiology 02/14/22 Parole Officer Relationship Specialty Start Date End Date Leonora Davalos, COMMUTER PILOT.SALES AND MARKETING ASSISTANT [address] [place] [address] PCP - General Family Medicine 02/21/22 Ryan Tovar MD Consulting Ent - Otolaryngology 06/23/20 [place] [address] [place] [address] [facility] 11/02/21 Aly Mosley, DO [address] [place] [address] [employer] Fiddle Player Cardiology 02/14/22 Parole Officer Relationship Specialty Start Date End Date Leoonra Davalos, COMMUTER PILOT.SALES AND MARKETING ASSISTANT [address] [address] PCP - General Family Medicine 02/21/22 Ryan Tovar MD Consulting Ent - Otolaryngology 06/23/20 [place] [address] [place] [address] [facility] 11/02/21 DimitriAly zaumdio, [facility] [place] [address] [employer] Fiddle Player Cardiology 02/14/22 Parole Officer Relationship Specialty Start Date End Date Leonora Davalos, COMMUTER PILOT.SALES AND MARKETING ASSISTANT PCP - General Family Medicine 02/21/22 Ryan Tovar MD Consulting Ent - Otolaryngology 06/23/20 [place] [address] [place] [address] [facility] 11/02/21 Aly Mosley, [facility] [place] [address] [employer] Fiddle Player Cardiology 02/14/22 Parole Officer Relationship Specialty Start Date End Date Leonora Davalos, COMMUTER PILOT.SALES AND MARKETING ASSISTANT [address] [facility] [address] [place] [address] PCP - General Family Medicine 02/21/22 Ryan Tovar MD Consulting Ent - Otolaryngology 06/23/20 [place] [address] [place] [address] [facility] 11/02/21 [place] [place] [address] [place] [address] [employer] Fiddle Player Cardiology 02/14/22 Parole Officer Relationship Specialty Start Date End Date Leonora Davalos, COMMUTER PILOT.SALES AND MARKETING ASSISTANT [address] [address] PCP - General Family Medicine 02/21/22 Ryan Tovar MD Consulting Ent - Otolaryngology 06/23/20 [place] [address] [place] [address] [facility] 11/02/21 Aly Mosley, [facility] [place] [address] [employer] F[employer] Player Cardiology 02/14/22 Parole Officer Relationship Specialty Start Date End Date Leonora Davalos, COMMUTER PILOT.SALES AND MARKETING ASSISTANT [address] [facility] [address] [place] [address] PCP - General Family Medicine 02/21/22 Ryan Tovar MD Consulting Ent - Otolaryngology 06/23/20 [place] [address] [place] [address] [facility] 11/02/21 DimitriAly zamudio, DO [address] [place] [address] [employer] F[employer] Player Cardiology 02/14/22 Parole Officer Relationship Specialty Start Date End Date Leonora Davalos APRN.SALES AND MARKETING ASSISTANT [address] [facility] [address] [place] [address] PCP - General Family Medicine 02/21/22 Ryan Tovar MD Consulting Ent - Otolaryngology 06/23/20 [place] [address] [place] [address] [facility] 11/02/21 [facility] [address] [place] [address] [employer] Fiddle Player Cardiology 02/14/22 Team Status: Active Member Role Status Dates Leonora Davalos RN CARDIOVASCULAR ICU, RN CARDIOVASCULAR ICU-C Family Provider Active Leonora Davalos RN CARDIOVASCULAR ICU, RN CARDIOVASCULAR ICU-C Primary Care Provider Active Team Status: Inactive Member Role Status Dates Dr. Shiraz Stephens MD Referring Provider Active Dr. Cayla Jolley MD Attending Provider Active Leonora Davalos RN CARDIOVASCULAR ICU, RN CARDIOVASCULAR ICU-C Primary Care Provider Active Team Status: Inactive Member Role Status Dates Dr. Shiraz Stephens MD Primary Care Provider, Refer ring Provider Active Dr. Carson Hobbs MD Attending Provider Active Team Status: Inactive Member Role Status Dates Dr. Shiraz Stephens MD Referring Provider Active Dr. Carlos Eduardo Matute MD Attending Provider Active Leonora Davalos RN CARDIOVASCULAR ICU, RN CARDIOVASCULAR ICU-C Primary Care Provider Active Team Status: Inactive Member Role Status Dates Leonora Davalos RN CARDIOVASCULAR ICU, RN CARDIOVASCULAR ICU-C Primary Care Provider, Referr ing Provider Active Tanya Hutchins RN CARDIOVASCULAR ICU, RN CARDIOVASCULAR ICU-C Attending Provider Active Team Status: Inactive Member Role Status Dates Leonora Davalos RN CARDIOVASCULAR ICU, RN CARDIOVASCULAR ICU-C Primary Care Pr ovider, Attending Provider, Referring Provider Active Team Status: Inactive Member Role Status Dates Leonora Davalos RN CARDIOVASCULAR ICU, RN CARDIOVASCULAR ICU-C Primary Care Provider Active Dr. Cayla Jolley MD Attending Provider Active Team Status: Inactive Member Role Status Dates Leonora Davalos RN CARDIOVASCULAR ICU, RN CARDIOVASCULAR ICU-C Primary Care Provider Active Dr. Philippe Farah MD Attending Provider Activ e Team Status: Inactive Member Role Status Dates Leonora Davalos RN CARDIOVASCULAR ICU, RN CARDIOVASCULAR ICU-C Primary Care Provider Active Dr. Corrie Donis MD Attending Provider, Emergency Provider Active Team Status: Inactive Member Role Status Dates Leonora Davalos RN CARDIOVASCULAR ICU, RN CARDIOVASCULAR ICU-C Primary Care Provider Active Tanya Hutchins RN CARDIOVASCULAR ICU, RN CARDIOVASCULAR ICU-C Attending Provider, Referrin g Provider Active Team Status: Inactive Member Role Status Dates Leonora Davalos RN CARDIOVASCULAR ICU, RN CARDIOVASCULAR ICU-C Primary Care Provider, Referr ing Provider Active Mehrdad Ruth RN CARDIOVASCULAR ICU, RN CARDIOVASCULAR ICU-C Attending Provider Active Team Status: Inactive Member Role Status Dates Leonora Davalos RN CARDIOVASCULAR ICU, RN CARDIOVASCULAR ICU-C Primary Care Provider Active Mehrdad Ruth RN CARDIOVASCULAR ICU, RN CARDIOVASCULAR ICU-C Attending Provider, Referring Pro vider Active Parole Officer Relationship Specialty Start Date End Date Leonora Davalos, COMMUTER PILOT.SALES AND MARKETING ASSISTANT [address] [address] PCP - General Family Medicine 02/21/22 Ryan Tovar MD Consulting Ent - Otolaryngology 06/23/20 [place] [address] [place] [address] [facility] 11/02/21 Aly Mosley, [address] [place] [address] [employer] Fiddle Player Cardiology 02/14/22 Team Status: Inactive Member Role Status Dates Leonora Davalos RN CARDIOVASCULAR ICU, RN CARDIOVASCULAR ICU-C Primary Care Provider, Referr ing Provider Active Marissa Camp RN CARDIOVASCULAR ICU, RN CARDIOVASCULAR ICU-C Attending Provider Active Team Status: Active Member Role Status Dates Leonora Davalos RN CARDIOVASCULAR ICU, RN CARDIOVASCULAR ICU-C Primary Care Provider Active Marissa Camp RN CARDIOVASCULAR ICU, RN CARDIOVASCULAR ICU-C Referring Provider, Other Pr ovider Active Dr. Yaya Gray , DO Attending Provider Active Team Status: Inactive Member Role Status Dates Leonora Davalos RN CARDIOVASCULAR ICU, RN CARDIOVASCULAR ICU-C Primary Care Provider Active Marissa Camp RN CARDIOVASCULAR ICU, RN CARDIOVASCULAR ICU-C Attending Provider, Referrin g Provider Active Parole Officer Relationship Specialty Start Date End Date Leonora Davalos, COMMUTER PILOT.SALES AND MARKETING ASSISTANT [address] [facility] [address] [place] [address] PCP - General Family Medicine 02/21/22 Ryan Tovar MD Consulting Ent - Otolaryngology 06/23/20 [place] [address] [place] [address] [facility] 11/02/21 Aly Mosley DO [address] [place] [address] [employer] Fiddle Player Cardiology 02/14/22 Parole Officer Relationship Specialty Start Date End Date Leonora Davalos, COMMUTER PILOT.SALES AND MARKETING ASSISTANT [address] [address] PCP - General Family Medicine 02/21/22 Ryan Tovar MD Consulting Ent - Otolaryngology 06/23/20 [place] [address] [place] [address] [facility] 11/02/21 Aly Mosley [place] [address] [employer] Fiddle Player Cardiology 02/14/22 Parole Officer Relationship Specialty Start Date End Date Leonora Davalos, COMMUTER PILOT.SALES AND MARKETING ASSISTANT [address] [address] PCP - General Family Medicine 02/21/22 Ryan Tovar MD Consulting Ent - Otolaryngology 06/23/20 [place] [address] [place] [address] [facility] 11/02/21 Aly Mosley DO [address] [place] [address] [employer] Player Cardiology 02/14/22 Parole Officer Relationship Specialty Start Date End Date Leonora Davalos, COMMUTER PILOT.SALES AND MARKETING ASSISTANT [address] [address] PCP - General Family Medicine 02/21/22 Ryan Tovar MD Consulting Ent - Otolaryngology 06/23/20 [place] [address] [place] [address] [facility] 11/02/21 Aly Mosley DO [address] [place] [address] Bull Fiddle Player Cardiology 02/14/22 Team Status: Inactive Member Role Status Dates Leonora Davalos RN CARDIOVASCULAR ICU, RN CARDIOVASCULAR ICU-C Primary Care Provider, Referr ing Provider Active Dr. Carlos Eduardo Matute MD Attending Provider Active Team Status: Active Member Role Status Dates Leonora Davalos RN CARDIOVASCULAR ICU, RN CARDIOVASCULAR ICU-C Primary Care Provider Active Dr. Carson Hobbs MD Attending Provider Active Team Status: Active Member Role Status Dates Leonora Davalos RN CARDIOVASCULAR ICU, RN CARDIOVASCULAR ICU-C Primary Care Provider Active Mehrdad Ruth RN CARDIOVASCULAR ICU, RN CARDIOVASCULAR ICU-C Attending Provider Active Team Status: Inactive Member Role Status Dates Leonora Davalos RN CARDIOVASCULAR ICU, RN CARDIOVASCULAR ICU-C Primary Care Provider Active Dr. Carson Hobbs MD Attending Provider, Referring Pro vider Active Team Status: Inactive Member Role Status Dates Leonora Davalos RN CARDIOVASCULAR ICU, RN CARDIOVASCULAR ICU-C Primary Care Provider Active Dr. Cayla Jolley MD Attending Provider, Referr ing Provider Active Team Status: Inactive Member Role Status Dates Leonora Davalos RN CARDIOVASCULAR ICU, RN CARDIOVASCULAR ICU-C Primary Care Provider, Referr ing Provider Active Padmini Singh RN CARDIOVASCULAR ICU, RN CARDIOVASCULAR ICU-C Attending Provider Active Team Status: Inactive Member Role Status Dates Leonora Davalos RN CARDIOVASCULAR ICU, RN CARDIOVASCULAR ICU-C Primary Care Provider Active Padmini Singh RN CARDIOVASCULAR ICU, RN CARDIOVASCULAR ICU-C Attending Provider, Referring Provider Active Parole Officer Relationship Specialty Start Date End Date Leonora Davalos, COMMUTER PILOT.SALES AND MARKETING ASSISTANT [address] [address] PCP - General Family Medicine 02/21/22 Ryan Tovar MD Consulting Ent - Otolaryngology 06/23/20 [place] [address] [place] [address] [facility] 11/02/21 Aly Mosley DO 0 [place] [address] [employer] Fiddle Player Cardiology 02/14/22 Parole Officer Relationship Specialty Start Date End Date Leonora Davalos, COMMUTER PILOT.SALES AND MARKETING ASSISTANT [address] [place] [address] PCP - General Family Medicine 02/21/22 Ryan Tovar MD Consulting Ent - Otolaryngology 06/23/20 [place] [address] [place] [address] [facility] 11/02/21 Aly Mosley DO [address] [place] [address] [employer] Fiddle Player Cardiology 02/14/22 Parole Officer Relationship Specialty Start Date End Date Leonora Davalos, COMMUTER PILOT.SALES AND MARKETING ASSISTANT [address] [place] [address] PCP - General Family Medicine 02/21/22 Ryan Tovar MD Consulting Ent - Otolaryngology 06/23/20 [place] [address] [place] [address] [facility] 11/02/21 Aly Mosley DO [address] [place] [address] [employer] Fiddle Player Cardiology 02/14/22 Parole Officer Relationship Specialty Start Date End Date Leonora Davalos, COMMUTER PILOT.SALES AND MARKETING ASSISTANT [address] [place] [address] PCP - General Family Medicine 02/21/22 Ryan Tovar MD Consulting Ent - Otolaryngology 06/23/20 [place] [address] [place] [address] [facility] 11/02/21 Aly Mosley DO [address] [place] [address] Bull Fiddle Player Cardiology 02/14/22 Parole Officer Relationship Specialty Start Date End Date Leonora Davalos, COMMUTER PILOT.SALES AND MARKETING ASSISTANT [address] [place] [address] PCP - General Family Medicine 02/21/22 Ryan Tovar MD Consulting Ent - Otolaryngology 06/23/20 [place] [address] [place] [address] [facility] 11/02/21 Aly Mosley DO [address] [place] [address] [employer] Fiddle Player Cardiology 02/14/22 Parole Officer Relationship Specialty Start Date End Date Leonora Davalos, COMMUTER PILOT.SALES AND MARKETING ASSISTANT [address] [place] [address] PCP - General Family Medicine 02/21/22 Ryan Tovar MD Consulting Ent - Otolaryngology 06/23/20 [place] [address] [place] [address] [facility] 11/02/21 Aly Mosley DO [address] [place] [address] [employer] Fiddle Player Cardiology 02/14/22 Parole Officer Relationship Specialty Start Date End Date Leonora Davalos, COMMUTER PILOT.SALES AND MARKETING ASSISTANT [address] [place] [address] PCP - General Family Medicine 02/21/22 Ryan Tovar MD Consulting Ent - Otolaryngology 06/23/20 [place] [address] [place] [address] [facility] 11/02/21 Aly Mosley DO [address] [place] [address] [employer] Fiddle Player Cardiology 02/14/22 Parole Officer Relationship Specialty Start Date End Date Leonora Davalos, COMMUTER PILOT.SALES AND MARKETING ASSISTANT [address] [place] [address] PCP - General Family Medicine 02/21/22 Ryan Tovar MD Consulting Ent - Otolaryngology 06/23/20 [place] [address] [place] [address] [facility] 11/02/21 Aly Mosley DO [address] [place] [address] [employer] Fiddle Player Cardiology 02/14/22 Parole Officer Relationship Specialty Start Date End Date Leonora Davalos, COMMUTER PILOT.SALES AND MARKETING ASSISTANT [address] [place] [address] PCP - General Family Medicine 02/21/22 Ryan Tovar MD Consulting Ent - Otolaryngology 06/23/20 [place] [address] [place] [address] [facility] 11/02/21 Aly Mosley DO [address] [place] [address] [employer] Fiddle Player Cardiology 02/14/22 Parole Officer Relationship Specialty Start Date End Date Leonora Davalos, COMMUTER PILOT.SALES AND MARKETING ASSISTANT [address] [place] [address] PCP - General Family Medicine 02/21/22 Ryan Tovar MD Consulting Ent - Otolaryngology 06/23/20 [place] [address] [place] [address] [facility] 11/02/21 Aly Mosley DO [address] [place] [address] Bull Fiddle Player Cardiology 02/14/22 Parole Officer Relationship Specialty Start Date End Date Leonora Davalos, COMMUTER PILOT.SALES AND MARKETING ASSISTANT [address] [place] [address] PCP - General Family Medicine 02/21/22 Ryan Tovar MD Consulting Ent - Otolaryngology 06/23/20 [place] [address] [place] [address] [facility] 11/02/21 Aly Mosley DO [address] [place] [address] Bull Fiddle Player Cardiology 02/14/22 Parole Officer Relationship Specialty Start Date End Date Leonora Davalos, COMMUTER PILOT.SALES AND MARKETING ASSISTANT [address] [place] [address] PCP - General Family Medicine 02/21/22 Ryan Tovar MD Consulting Ent - Otolaryngology 06/23/20 [place] [address] [place] [address] [facility] 11/02/21 Aly Mosley DO [address] [place] [address] Bull Fiddle Player Cardiology 02/14/22 Parole Officer Relationship Specialty Start Date End Date Leonora Davalos, COMMUTER PILOT.SALES AND MARKETING ASSISTANT [address] [place] [address] PCP - General Family Medicine 02/21/22 Ryan Tovar MD Consulting Ent - Otolaryngology 06/23/20 [place] [address] [place] [address] [facility] 11/02/21 Aly Mosley DO [place] [address] [employer] Fiddle Player Cardiology 02/14/22 Parole Officer Relationship Specialty Start Date End Date Leonora Davalos, COMMUTER PILOT.SALES AND MARKETING ASSISTANT [address] [place] [address] PCP - General Family Medicine 02/21/22 Ryan Tovar MD Consulting Ent - Otolaryngology 06/23/20 [place] [address] [place] [address] [facility] 11/02/21 Aly Mosley DO [address] [place] [address] Bull Fiddle Player Cardiology 02/14/22 Parole Officer Relationship Specialty Start Date End Date Leonora Davalos, COMMUTER PILOT.SALES AND MARKETING ASSISTANT [address] [address] PCP - General Family Medicine 02/21/22 Ryan Tovar MD Consulting Ent - Otolaryngology 06/23/20 [place] [address] [place] [address] [facility] 11/02/21 Aly Mosley DO [address] [place] [address] Bull Fiddle Player Cardiology 02/14/22 Parole Officer Relationship Specialty Start Date End Date Leonora Davalos, COMMUTER PILOT.SALES AND MARKETING ASSISTANT [address] [place] [address] PCP - General Family Medicine 02/21/22 Ryan Tovar MD Consulting Ent - Otolaryngology 06/23/20 [place] [address] [place] [address] [facility] 11/02/21 Aly Mosley DO [address] [place] [address] [employer] Fiddle Player Cardiology 02/14/22 Parole Officer Relationship Specialty Start Date End Date Leonora Davalos, COMMUTER PILOT.SALES AND MARKETING ASSISTANT [address] [place] [address] PCP - General Family Medicine 02/21/22 Ryan Tovar MD Consulting Ent - Otolaryngology 06/23/20 [place] [address] [place] [address] [facility] 11/02/21 Aly Mosley DO [place] [address] [employer] Fiddle Player Cardiology 02/14/22 Parole Officer Relationship Specialty Start Date End Date Leonora Davalos, COMMUTER PILOT.SALES AND MARKETING ASSISTANT [address] [place] [address] PCP - General Family Medicine 02/21/22 Ryan Tovar MD Consulting Ent - Otolaryngology 06/23/20 [place] [address] [place] [address] [facility] 11/02/21 Aly Mosley DO [address] [place] [address] [employer] F[employer] Player Cardiology 02/14/22 Parole Officer Relationship Specialty Start Date End Date Leonora Davalos, COMMUTER PILOT.SALES AND MARKETING ASSISTANT [address] [place] [address] PCP - General Family Medicine 02/21/22 Ryan Tovar MD Consulting Ent - Otolaryngology 06/23/20 [place] [address] [place] [address] [facility] 11/02/21 Aly Mosley DO [address] [place] [address] [employer] F[employer] Player Cardiology 02/14/22 Parole Officer Relationship Specialty Start Date End Date Leonora Davalos, COMMUTER PILOT.SALES AND MARKETING ASSISTANT [address] [place] [address] PCP - General Family Medicine 02/21/22 Ryan Tovar MD Consulting Ent - Otolaryngology 06/23/20 [place] [address] [place] [address] [facility] 11/02/21 lAy Mosley DO [address] [place] [address] [employer] F[employer] Player Cardiology 02/14/22 Parole Officer Relationship Specialty Start Date End Date Leonora Davalos, COMMUTER PILOT.SALES AND MARKETING ASSISTANT [address] [place] [address] PCP - General Family Medicine 02/21/22 Ryan Tovar MD Consulting Ent - Otolaryngology 06/23/20 [place] [address] [place] [address] [facility] 11/02/21 Aly Mosley DO [address] [place] [address] [employer] F[employer] Player Cardiology 02/14/22 Parole Officer Relationship Specialty Start Date End Date Leonora Davalos, COMMUTER PILOT.SALES AND MARKETING ASSISTANT [address] [place] [address] PCP - General Family Medicine 02/21/22 Ryan Tovar MD Consulting Ent - Otolaryngology 06/23/20 [place] [address] [place], [place] [address] [facility] 11/02/21 Aly Mosley DO [address] [place] [address] [employer] [facility] 02/14/22 Parole Officer Relationship Specialty Start Date End Date Leonora Davalos, COMMUTER PILOT.SALES AND MARKETING ASSISTANT [address] [place] [address] PCP - General Family Medicine 02/21/22 Ryan Tovar MD Consulting Ent - Otolaryngology 06/23/20 [place] [address] [place] [address] [facility] 11/02/21 Aly Mosley DO [address] [place] [address] [employer] Cardiology 02/14/22 Parole Officer Relationship Specialty Start Date End Date Leonora Davalos, COMMUTER PILOT.SALES AND MARKETING ASSISTANT [address] [place] [address] PCP - General Family Medicine 02/21/22 Ryan Tovar MD Consulting Ent - Otolaryngology 06/23/20 [place] [address] [place] [address] [facility] 11/02/21 Aly Mosley DO [address] [place] [address] [employer] Cardiology 02/14/22 Parole Officer Relationship Specialty Start Date End Date Leonora Davalos, COMMUTER PILOT.SALES AND MARKETING ASSISTANT [address] [place] [address] PCP - General Family Medicine 02/21/22 Ryan Tovar MD Consulting Ent - Otolaryngology 06/23/20 [place] [address] [place] [address] [facility] 11/02/21 Aly Mosley DO [address] [place] [address] [employer] Cardiology 02/14/22 Parole Officer Relationship Specialty Start Date End Date Leonora Davalos APRN.CNP [address] [address] PCP - General Family Medicine 02/21/22 Ryan Tovar MD Consulting Ent - Otolaryngology 06/23/20 [place] [address] [place] [address] [facility] 11/02/21 Aly Mosley DO [address] [place] [address] [employer] [facility] 02/14/22 Team Status: Active Member Role Status Dates Leonora Davalos NP, RN CARDIOVASCULAR ICU-C Primary Care Provider Active Team Status: Inactive Member Role Status Dates Leonora Davalos NP, RN CARDIOVASCULAR ICU-C Primary Care Provider Active Start: September 02, 2024 End: September 02, 2024 Leonora Davalos NP, RN CARDIOVASCULAR ICU-C Referring Provider Active Start: September 02, 2024 End: September 02, 2024 Dr. Cayla Jolley MD Attending Provider Active Start: September 02, 2024 End: September 02, 2024 Team Status: Inactive Member Role Status Dates Leonora Davalos RN CARDIOVASCULAR ICU, RN CARDIOVASCULAR ICU-C Primary Care Provider Active Start: September 02, 2024 End: September 02, 2024 Leonora Davalos RN CARDIOVASCULAR ICU, RN CARDIOVASCULAR ICU-C Referring Provider Active Start: September 02, 2024 End: September 02, 2024 Marissa Camp RN CARDIOVASCULAR ICU, RN CARDIOVASCULAR ICU-C Attending Provider Active Start: September 02, 2024 End: September 02, 2024 Team Status: Inactive Member Role Status Dates Leonora Davalos RN CARDIOVASCULAR ICU, RN CARDIOVASCULAR ICU-C Primary Care Provider Active Start: September 02, 2024 End: September 02, 2024 Dr. Cayla Jolley MD Attending Provider Active Start: September 02, 2024 End: September 02, 2024 Dr. Cayla Jolley MD Referring Provider Active Start: September 02, 2024 End: September 02, 2024 Team Status: Inactive Member Role Status Dates Leonora Davalos RN CARDIOVASCULAR ICU, RN CARDIOVASCULAR ICU-C Primary Care Provider Active Start: September 05, 2024 End: September 05, 2024 Dr. Cayla Jolley MD Attending Provider Active Start: September 05, 2024 End: September 05, 2024 Dr. Cayla Jolley MD Referring Provider Active Start: September 05, 2024 End: September 05, 2024 Team Status: Inactive Member Role Status Dates Leonora Davalos RN CARDIOVASCULAR ICU, RN CARDIOVASCULAR ICU-C Primary Care Provider Active Start: September 26, 2024 End: September 26, 2024 Dr. Tonja Givens DO Attending Provider Active Start: September 26, 2024 End: September 26, 2024 Dr. Tonja Givens DO Emergency Provider Active Start: September 26, 2024 End: September 26, 2024 Team Status: Inactive Member Role Status Dates Leonora Davalos RN CARDIOVASCULAR ICU, RN CARDIOVASCULAR ICU-C Primary Care Provider Active Start: November 13, 2024 End: November 13, 2024 Leonora Davalos RN CARDIOVASCULAR ICU, RN CARDIOVASCULAR ICU-C Referring Provider Active Start: November 13, 2024 End: November 13, 2024 Mehrdad Ruth RN CARDIOVASCULAR ICU, RN CARDIOVASCULAR ICU-C Attending Provider Active S tart: November 13, 2024 End: November 13, 2024 Team Status: Inactive Member Role Status Dates Leonora Davalos RN CARDIOVASCULAR ICU, RN CARDIOVASCULAR ICU-C Primary Care Provider Active Start: November 13, 2024 End: November 13, 2024 Mehrdad Ruth RN CARDIOVASCULAR ICU, RN CARDIOVASCULAR ICU-C Attending Provider Active S tart: November 13, 2024 End: November 13, 2024 Mehrdad Ruth RN CARDIOVASCULAR ICU, RN CARDIOVASCULAR ICU-C Referring Provider Active S tart: November 13, 2024 End: November 13, 2024 Team Status: Inactive Member Role Status Dates Leonora Davalos RN CARDIOVASCULAR ICU, RN CARDIOVASCULAR ICU-C Primary Care Provider Active Start: November 19, 2024 End: November 19, 2024 Leonora Davalos RN CARDIOVASCULAR ICU, RN CARDIOVASCULAR ICU-C Attending Provider Active Start: November 19, 2024 End: November 19, 2024 Leonora Davalos RN CARDIOVASCULAR ICU, RN CARDIOVASCULAR ICU-C Referring Provider Active Start: November 19, 2024 End: November 19, 2024 Team Status: Inactive Member Role Status Dates Leonora Davalos RN CARDIOVASCULAR ICU, RN CARDIOVASCULAR ICU-C Primary Care Provider Active Start: December 03, 2024 End: December 03, 2024 Marissa Camp RN CARDIOVASCULAR ICU, RN CARDIOVASCULAR ICU-C Attending Provider Active Start: December 03, 2024 End: December 03, 2024 Marissa Camp RN CARDIOVASCULAR ICU, RN CARDIOVASCULAR ICU-C Referring Provider Active Start: December 03, 2024 End: December 03, 2024 Team Status: Inactive Member Role Status Dates Leonora Davalos RN CARDIOVASCULAR ICU, RN CARDIOVASCULAR ICU-C Primary Care Provider Active Start: December 04, 2024 End: December 04, 2024 Leonora Davalos RN CARDIOVASCULAR ICU, RN CARDIOVASCULAR ICU-C Attending Provider Active Start: December 04, 2024 End: December 04, 2024 Leonora Davalos RN CARDIOVASCULAR ICU, RN CARDIOVASCULAR ICU-C Referring Provider Active Start: December 04, 2024 End: December 04, 2024 Team Status: Inactive Member Role Status Dates Leonora Davalos RN CARDIOVASCULAR ICU, RN CARDIOVASCULAR ICU-C Primary Care Provider Active Start: December 07, 2024 End: December 07, 2024 Sunita JAY, PA Attending Provider Active Start: December 07, 2024 End: December 07, 2024 Sunita JAY PA Referring Provider Active Start: December 07, 2024 End: December 07, 2024 Parole Officer Relationship Specialty Start Date End Date Leonora Davalos APRN.SALES AND MARKETING ASSISTANT [address] [address] PCP - General Family Medicine 02/21/22 Ryan Tovar MD Consulting Ent - Otolaryngology 06/23/20 [place] [address] [place] [address] [facility] 11/02/21 Aly Mosley DO [address] [place] [address] [employer] [facility] 02/14/22 Team Status: Inactive Member Role Status Dates Leonora Davalos RN CARDIOVASCULAR ICU, RN CARDIOVASCULAR ICU-C Primary Care Provider Active Start: December 17, 2024 End: December 17, 2024 Mehrdad Ruth RN CARDIOVASCULAR ICU, RN CARDIOVASCULAR ICU-C Attending Provider Active S tart: December 17, 2024 End: December 17, 2024 Mehrdad Ruth RN CARDIOVASCULAR ICU, RN CARDIOVASCULAR ICU-C Referring Provider Active S tart: December 17, 2024 End: December 17, 2024 Team Status: Active Member Role Status Dates Leonora Davalos RN CARDIOVASCULAR ICU, RN CARDIOVASCULAR ICU-C Primary Care Provider Active Start: December 17, 2024 Dr. Carson Hobbs MD Attending Provider Active S tart: December 17, 2024 Parole Officer Relationship Specialty Start Date End Date Leonora Davalos APRN.SALES AND MARKETING ASSISTANT [address] [address] PCP - General Family Medicine 02/21/22 Ryan Tovar MD Consulting Ent - Otolaryngology 06/23/20 [place] [address] [place] [address] [facility] 11/02/21 Aly Mosley DO [address] [place] [address] [employer] Cardiology 02/14/22 Team Status: Inactive Member Role Status Dates Leonora Davalos NP, RN CARDIOVASCULAR ICU-C Primary Care Provider Active Start: January 07, 2025 End: January 07, 2025 Marissa Camp RN CARDIOVASCULAR ICU, RN CARDIOVASCULAR ICU-C Attending Provider Active Start: January 07, 2025 End: January 07, 2025 Marissa Camp RN CARDIOVASCULAR ICU, RN CARDIOVASCULAR ICU-C Referring Provider Active Start: January 07, 2025 End: January 07, 2025 Team Status: Active Member Role Status Dates Leonora Davalos NP, RN CARDIOVASCULAR ICU-C Primary Care Provider Active Start: January 10, 2025 Marissa Camp NP, RN CARDIOVASCULAR ICU-C Referring Provider Active Start: January 10, 2025 Marissa Camp RN CARDIOVASCULAR ICU, RN CARDIOVASCULAR ICU-C Other Provider Active Start: January 10, 2025 Dr. Yaya Gray , Attending Provider Active S tart: January 10, 2025 Team Status: Inactive Member Role Status Dates Leonora Davalos NP, RN CARDIOVASCULAR ICU-C Primary Care Provider Active Start: January 10, 2025 End: January 10, 2025 Leonora Davalos NP, RN CARDIOVASCULAR ICU-C Referring Provider Active Start: January 10, 2025 End: January 10, 2025 Ada Wheeler NP-C Attending Provider Active Start: January 10, 2025 End: January 10, 2025 Team Status: Inactive Member Role Status Dates Leonora Davalos NP, RN CARDIOVASCULAR ICU-C Primary Care Provider Active Start: January 16, 2025 End: January 16, 2025 Ada Wheeler NP-C Attending Provider Active Start: January 16, 2025 End: January 16, 2025 Ada Wheeler NP-C Referring Provider Active Start: January 16, 2025 End: January 16, 2025 Team Status: Inactive Member Role Status Dates Leonora Davalos NP, RN CARDIOVASCULAR ICU-C Primary Care Provider Active Start: January 23, 2025 End: January 23, 2025 Leonora Davalos NP, RN CARDIOVASCULAR ICU-C Referring Provider Active Start: January 23, 2025 End: January 23, 2025 Antonietta Wade NP-C Attending Provider Active S tart: January 23, 2025 End: January 23, 2025 Team Status: Active Member Role Status Dates Leonora Davalos RN CARDIOVASCULAR ICU, RN CARDIOVASCULAR ICU-C Primary Care Provider Active Start: January 23, 2025 Antonietta Wade NP-C Attending Provider Active S tart: January 23, 2025 Antonietta Wade NP-C Referring Provider Active S tart: January 23, 2025 Team Status: Inactive Member Role Status Dates Leonora Davalos NP, RN CARDIOVASCULAR ICU-C Primary Care Provider Active Start: January 23, 2025 End: January 23, 2025 Antonietta Wade RN CARDIOVASCULAR ICU-C Attending Provider Active S tart: January 23, 2025 End: January 23, 2025 Antonietta Wade RN CARDIOVASCULAR ICU-C Referring Provider Active S tart: January 23, 2025 End: January 23, 2025 Team Status: Active Member Role Status Dates Leonora Davalos NP, RN CARDIOVASCULAR ICU-C Primary Care Provider Active Start: January 24, 2025 Ada Wheeler NP-C Attending Provider Active Start: January 24, 2025 Ada Wheeler RN CARDIOVASCULAR ICU-C Referring Provider Active Start: January 24, 2025 Antonietta Wade RN CARDIOVASCULAR ICU-C Other Provider Active Start : January 24, 2025 Team Status: Inactive Member Role Status Dates Leonora Davalos NP, RN CARDIOVASCULAR ICU-C Primary Care Provider Active Start: February 05, 2025 End: February 05, 2025 Antonietta Wade RN CARDIOVASCULAR ICU-C Attending Provider Active S tart: February 05, 2025 End: February 05, 2025 Antonietta Wade RN CARDIOVASCULAR ICU-C Referring Provider Active S tart: February 05, 2025 End: February 05, 2025 Parole Officer Relationship Specialty Start Date End Date Leonora Davalos, COMMUTER PILOT.SALES AND MARKETING ASSISTANT [address] [address] PCP - General Family Medicine 02/21/22 Ryan Tovar MD Consulting Ent - Otolaryngology 06/23/20 [place] [address] [place] [address] [facility] 11/02/21 Aly Mosley DO [address] [place] [address] [employer] [facility] 02/14/22 Parole Officer Relationship Specialty Start Date End Date Leonora Davalos, COMMUTER PILOT.SALES AND MARKETING ASSISTANT [address] [place] [address] PCP - General Family Medicine 02/21/22 [place] [address] [place] [address] [facility] 11/02/21 DimitriAly zamudio DO [address] [place] [address] [facility] 02/14/22 Elmer Manley MD [address] [address] Consulting Infectious Diseases 03/20/25 Leonora Davalos, COMMUTER PILOT.SALES AND MARKETING ASSISTANT [address] [place] [address] Home Care Provider Family Medicine 03/20/25 [place] [address] [place] [address] Referring Internal Medicine 03/20/25 Kwasi Cortes, RN [address] [place], [place] [id number] Plant Technician Post Acute Care 03/20/25 Parole Officer Relationship Specialty Start Date End Date Leonora Davalos, COMMUTER PILOT.SALES AND MARKETING ASSISTANT [address] [place] [address] PCP - General Family Medicine 02/21/22 [place] [address] [place] [address] [facility] 11/02/21 Aly Mosley DO [address] [place] [address] [employer] [facility] 02/14/22 Elmer Manley MD [address] [address] Consulting Infectious Diseases 03/20/25 Leonora Davalos, COMMUTER PILOT.SALES AND MARKETING ASSISTANT [address] [facility] [address] [place] [address] Home Care Provider Family Medicine 03/20/25 [place] [address] [place] [address] Referring Internal Medicine 03/20/25 Kwasi Cortes, JONI [address] [place], [place] [id number] Plant Technician Post Acute Care 03/20/25 Parole Officer Relationship Specialty Start Date End Date Leonora Davalos, COMMUTER PILOT.SALES AND MARKETING ASSISTANT [address] [facility] [address] [place] [address] PCP - General Family Medicine 02/21/22 [place] [address] [place] [address] [facility] 11/02/21 Aly Mosley DO [address] [place] [address] [employer] [facility] Cardiology 02/14/22 Elmer Manley MD [address] [address] Consulting Infectious Diseases 03/20/25 Leonora Davalos, COMMUTER PILOT.SALES AND MARKETING ASSISTANT [address] [facility] [address] [place] [address] Home Care Provider Family Medicine 03/20/25 [place] [address] [address] [place], [place] [id number] Referring Internal Medicine 03/20/25 Kwasi Cortes, JONI [address] [place] [address] Plant Technician Post Acute Care 03/20/25 Parole Officer Relationship Specialty Start Date End Date Leonora Davalos, COMMUTER PILOT.SALES AND MARKETING ASSISTANT [address] [address] PCP - General Family Medicine 02/21/22 [place] [address] [place] [address] [facility] 11/02/21 Aly Mosley DO [address] [place] [address] [employer] [facility] Cardiology 02/14/22 Elmer Manley MD [address] [address] Consulting Infectious Diseases 03/20/25 Leonora Davalos, COMMUTER PILOT.SALES AND MARKETING ASSISTANT [address] [place] [address] Home Care Provider Family Medicine 03/20/25 [place] [address] [address] [place], [place] [id number] Referring Internal Medicine 03/20/25 Kwasi Cortes, JONI [address] [place] [address] Plant Technician Post Acute Care 03/20/25 Parole Officer Relationship Specialty Start Date End Date Leonora Davalos, COMMUTER PILOT.SALES AND MARKETING ASSISTANT [address] [place] [address] PCP - General Family Medicine 02/21/22 [place] [address] [place] [address] [facility] 11/02/21 Aly Mosley DO [address] [place] [address] [employer] [facility] Cardiology 02/14/22 Elmer Manley MD [address] [address] Consulting Infectious Diseases 03/20/25 Leonora Davalos, COMMUTER PILOT.SALES AND MARKETING ASSISTANT [address] [place], [place] [address] Home Care Provider Family Medicine 03/20/25 [place] [address] [address] [place], [place] [address] Referring Internal Medicine 03/20/25 Kwasi Cortes RN [address] [place] [address] Plant Technician Post Acute Care 03/20/25 Parole Officer Relationship Specialty Start Date End Date Leonora Davalos, COMMUTER PILOT.SALES AND MARKETING ASSISTANT [address] [facility] [address] [place] [address] PCP - General Family Medicine 02/21/22 Ryan Tovar MD Consulting Ent - Otolaryngology 06/23/20 03/19/25 [place] [address] [place] [address] [facility] 11/02/21 Aly Mosley DO [address] [place] [address] [employer] [facility] Cardiology 02/14/22 Elmer Manley MD [address] [address] Consulting Infectious Diseases 03/20/25 Leonora Davalos, COMMUTER PILOT.SALES AND MARKETING ASSISTANT [address] [place] [address] Home Care Provider Family Medicine 03/20/25 [place] [address] [place] [address] Referring Internal Medicine 03/20/25 Kwasi Cortes RN [address] [place], [place] [id number] Plant Technician Post Acute Care 03/20/25 Parole Officer Relationship Specialty Start Date End Date Leonora Davalos, COMMUTER PILOT.SALES AND MARKETING ASSISTANT [address] [place] [address] PCP - General Family Medicine 02/21/22 [place] [address] [place] [address] [facility] 11/02/21 Aly Mosley DO [address] [place] [address] [employer] [facility] [facility] Cardiology 02/14/22 Elmer Manley MD [address] [address] Consulting Infectious Diseases 03/20/25 Leonora Davalos, COMMUTER PILOT.SALES AND MARKETING ASSISTANT [address] [place] [address] Home Care Provider Family Medicine 03/20/25 [place] [address] [address] [place], [place] [phone] Referring Internal Medicine 03/20/25 Kwasi Cortes, RN [address] [place], [place] [id number] Plant Technician Post Acute Care 03/20/25 Parole Officer Relationship Specialty Start Date End Date Leonora Davalos, COMMUTER PILOT.SALES AND MARKETING ASSISTANT [address] [place] [address] PCP - General Family Medicine 02/21/22 [place] [address] [place] [address] [facility] 11/02/21 Aly Mosley DO [address] [place] [address] [employer] [facility] [facility] Cardiology 02/14/22 Elmer Manley MD [address] [place] [address] Consulting Infectious Diseases 03/20/25 Leonora Davalos, COMMUTER PILOT.SALES AND MARKETING ASSISTANT [address] [facility] [address] [place] [address] Home Care Provider Family Medicine 03/20/25 [place] [address] [place] [address] Referring Internal Medicine 03/20/25 Kwasi Cortes, RN [address] [place] [address] Plant Technician Post Acute Care 03/20/25 Parole Officer Relationship Specialty Start Date End Date Leonora Davalos, COMMUTER PILOT.SALES AND MARKETING ASSISTANT [address] [facility] [address] [place] [address] PCP - General Family Medicine 02/21/22 [place] [address] [place] [address] [facility] 11/02/21 Aly Mosley DO [address] [place] [address] [employer] Player Cardiology 02/14/22 Elmer Manley MD [address] [address] Consulting Infectious Diseases 03/20/25 Leonora Davalos, COMMUTER PILOT.SALES AND MARKETING ASSISTANT [address] [place] [address] Home Care Provider Family Medicine 03/20/25 [place] [address] [address] [place], [place] [id number] Referring Internal Medicine 03/20/25 Kwasi Cortes, RN [address] [place], [place] [phone] Plant Technician Post Acute Care 03/20/25 Parole Officer Relationship Specialty Start Date End Date Leonora Davalos, COMMUTER PILOT.SALES AND MARKETING ASSISTANT [address] [place] [address] PCP - General Family Medicine 02/21/22 [place] [address] [place] [address] [facility] 11/02/21 Aly Mosley DO [address] [place] [address] [employer] Player Cardiology 02/14/22 Elmer Manley MD [address] [address] Consulting Infectious Diseases 03/20/25 Leonora Davalos, COMMUTER PILOT.SALES AND MARKETING ASSISTANT [address] [place] [address] Home Care Provider Family Medicine 03/20/25 [place] [address] [place], [place] [address] Referring Internal Medicine 03/20/25 [place] [address] [place], [place] [phone] Plant Technician Post Acute Care 03/20/25 Parole Officer Relationship Specialty Start Date End Date Leonora Davalos, COMMUTER PILOT.SALES AND MARKETING ASSISTANT [address] [facility] [address] [place] [address] PCP - General Family Medicine 02/21/22 [place] [address] [place] [address] [facility] 11/02/21 Aly Mosley DO [address] [place] [address] [employer] Player Cardiology 02/14/22 Elmer Manley MD [address] [address] Consulting Infectious Diseases 03/20/25 Leonora Davalos, COMMUTER PILOT.SALES AND MARKETING ASSISTANT [address] [place] [address] Home Care Provider Family Medicine 03/20/25 [place] [address] [address] [place], [place] [id number] Referring Internal Medicine 03/20/25 Kwasi Cortes RN [address] [place], [place] [id number] Plant Technician Post Acute Care 03/20/25 Parole Officer Relationship Specialty Start Date End Date Leonora Davalos, COMMUTER PILOT.SALES AND MARKETING ASSISTANT [address] [place] [address] PCP - General Family Medicine 02/21/22 [place] [address] [place] [address] [facility] 11/02/21 Aly Mosley DO [address] [place] [address] [employer] F[employer] Player Cardiology 02/14/22 Elmer Manley MD [address] [address] Consulting Infectious Diseases 03/20/25 Leonora Davalos, COMMUTER PILOT.SALES AND MARKETING ASSISTANT [address] [place] [address] Home Care Provider Family Medicine 03/20/25 [place] [address] [place] [place], [place] [id number] Referring Internal Medicine 03/20/25 Kwasi Cortes, RN [address] [place], [place] [id number] Plant Technician Post Acute Care 03/20/25 Parole Officer Relationship Specialty Start Date End Date Leonora Davalos, COMMUTER PILOT.SALES AND MARKETING ASSISTANT [address] [place] [address] PCP - General Family Medicine 02/21/22 [place] [address] [place] [address] [facility] 11/02/21 Aly Mosley DO [address] [place] [address] Bull Fiddle Player Cardiology 02/14/22 Elmer Manley MD [address] [address] Consulting Infectious Diseases 03/20/25 Leonora Davalos, COMMUTER PILOT.SALES AND MARKETING ASSISTANT [address] [facility] [address] [place] [address] Home Care Provider Family Medicine 03/20/25 [place] [address] [place] [address] Referring Internal Medicine 03/20/25 Kwasi Cortes, RN [address] [place] [address] Plant Technician Post Acute Care 03/20/25 03/30/25 Parole Officer Relationship Specialty Start Date End Date Leonora Davalos, COMMUTER PILOT.SALES AND MARKETING ASSISTANT [address] [facility] [address] [place] [address] PCP - General Family Medicine 02/21/22 [place] [address] [place] [address] [facility] 11/02/21 Aly Mosley DO [address] [place] [address] Bull Fiddle Player Cardiology 02/14/22 Elmer Manley MD [address] [address] Consulting Infectious Diseases 03/20/25 Leonora Davalos, COMMUTER PILOT.SALES AND MARKETING ASSISTANT [address] [place] [address] Home Care Provider Family Medicine 03/20/25 [place] [address] [address] [place], [place] [phone] Referring Internal Medicine 03/20/25 Kwasi Cortes, RN [address] [place], [place] [phone] Plant Technician Post Acute Care 03/20/25 03/30/25 Parole Officer Relationship Specialty Start Date End Date Leonora Davalos, COMMUTER PILOT.SALES AND MARKETING ASSISTANT [address] [place] [address] PCP - General Family Medicine 02/21/22 [place] [address] [place] [address] [facility] 11/02/21 Aly Mosley DO [address] [place] [address] [employer] Fiddle Player Cardiology 02/14/22 Elmer Manley MD [address] [address] Consulting Infectious Diseases 03/20/25 Leonora Davalos, COMMUTER PILOT.SALES AND MARKETING ASSISTANT [address] [place] [address] Home Care Provider Family Medicine 03/20/25 [place] [address] [place] [address] Referring Internal Medicine 03/20/25 Parole Officer Relationship Specialty Start Date End Date Leonora Davalos, COMMUTER PILOT.SALES AND MARKETING ASSISTANT [address] [place] [address] PCP - General Family Medicine 02/21/22 [place] [address] [place] [address] Clay Miner Gastroenterology 11/02/21 Aly Mosley DO [address] [place] [address] Bull Fiddle Player Cardiology 02/14/22 Elmer Manley MD [address] [address] Consulting Infectious Diseases 03/20/25 Leonora Davalos, COMMUTER PILOT[employer]SALES AND MARKETING ASSISTANT [address] [place] [address] Home Care Provider Family Medicine 03/20/25 [place] [address] [place] [address] Referring Internal Medicine 03/20/25 Parole Officer Relationship Specialty Start Date End Date Leonora Davalos, COMMUTER PILOT[employer]SALES AND MARKETING ASSISTANT [address] [place] [address] PCP - General Family Medicine 02/21/22 [place] [address] [place] [address] Clay Miner Gastroenterology 11/02/21 Aly Mosley DO [address] [place] [address] Bull Fiddle Player Cardiology 02/14/22 Elmer Manley MD [address] [address] Consulting Infectious Diseases 03/20/25 Leonora Davalos APRN.SALES AND MARKETING ASSISTANT [address] [address] Home Care Provider Family Medicine 03/20/25 [place] [address] [place], [place] [id number] Referring Internal Medicine 03/20/25 Kwasi Cortes, RN [address] [place], [place] [id number] Plant Technician Post Acute Care 03/20/25 03/30/25 Team Status: Active Member Role/Relationship Status Dates Leonora Davalos RN CARDIOVASCULAR ICU, RN CARDIOVASCULAR ICU-C Primary Care Provider Active Team Status: Inactive Member Role/Relationship Status Dates Leonora Davalos RN CARDIOVASCULAR ICU, RN CARDIOVASCULAR ICU-C Primary Care Provider Active Start: December 17, 2024 End: December 17, 2024 Mehrdad Ruth RN CARDIOVASCULAR ICU, RN CARDIOVASCULAR ICU-C Attending Provider Active S tart: December 17, 2024 End: December 17, 2024 Mehrdad Ruth RN CARDIOVASCULAR ICU, RN CARDIOVASCULAR ICU-C Referring Provider Active S tart: December 17, 2024 End: December 17, 2024 Team Status: Active Member Role/Relationship Status Dates Leonora Davalos NP, RN CARDIOVASCULAR ICU-C Primary Care Provider Active Start: December 17, 2024 Dr. Carson Hobbs MD Attending Provider Active S tart: December 17, 2024 Team Status: Inactive Member Role/Relationship Status Dates Leonora Davalos RN CARDIOVASCULAR ICU, RN CARDIOVASCULAR ICU-C Primary Care Provider Active Start: January 07, 2025 End: January 07, 2025 Marissa Camp RN CARDIOVASCULAR ICU, RN CARDIOVASCULAR ICU-C Attending Provider Active Start: January 07, 2025 End: January 07, 2025 Marissa Camp RN CARDIOVASCULAR ICU, RN CARDIOVASCULAR ICU-C Referring Provider Active Start: January 07, 2025 End: January 07, 2025 Team Status: Active Member Role/Relationship Status Dates Leonora Davalos RN CARDIOVASCULAR ICU, RN CARDIOVASCULAR ICU-C Primary Care Provider Active Start: January 10, 2025 Marissa Camp RN CARDIOVASCULAR ICU, RN CARDIOVASCULAR ICU-C Referring Provider Active Start: January 10, 2025 Marissa Camp RN CARDIOVASCULAR ICU, RN CARDIOVASCULAR ICU-C Other Provider Active Start: January 10, 2025 Dr. Yaya Gray DO Attending Provider Active S tart: January 10, 2025 Team Status: Inactive Member Role/Relationship Status Dates Leonora Davalos RN CARDIOVASCULAR ICU, RN CARDIOVASCULAR ICU-C Primary Care Provider Active Start: January 10, 2025 End: January 10, 2025 Leonora Davalos RN CARDIOVASCULAR ICU, RN CARDIOVASCULAR ICU-C Referring Provider Active Start: January 10, 2025 End: January 10, 2025 Ada Wheeler RN CARDIOVASCULAR ICU-C Attending Provider Active Start: January 10, 2025 End: January 10, 2025 Team Status: Inactive Member Role/Relationship Status Dates Leonora Davalos RN CARDIOVASCULAR ICU, RN CARDIOVASCULAR ICU-C Primary Care Provider Active Start: January 16, 2025 End: January 16, 2025 Ada Wheeler RN CARDIOVASCULAR ICU-C Attending Provider Active Start: January 16, 2025 End: January 16, 2025 Ada Wheeler RN CARDIOVASCULAR ICU-C Referring Provider Active Start: January 16, 2025 End: January 16, 2025 Team Status: Inactive Member Role/Relationship Status Dates Leonora Davalos RN CARDIOVASCULAR ICU, RN CARDIOVASCULAR ICU-C Primary Care Provider Active Start: January 23, 2025 End: January 23, 2025 Leonora Davalos RN CARDIOVASCULAR ICU, RN CARDIOVASCULAR ICU-C Referring Provider Active Start: January 23, 2025 End: January 23, 2025 Antonietta Wade NP-C Attending Provider Active S tart: January 23, 2025 End: January 23, 2025 Team Status: Inactive Member Role/Relationship Status Dates Leonora Davalos RN CARDIOVASCULAR ICU, RN CARDIOVASCULAR ICU-C Primary Care Provider Active Start: January 23, 2025 End: January 23, 2025 VANESSA Ro Attending Provider Active S tart: January 23, 2025 End: January 23, 2025 VANESSA Ro Referring Provider Active S tart: January 23, 2025 End: January 23, 2025 Team Status: Inactive Member Role/Relationship Status Dates Leonora Davalos NP, RN CARDIOVASCULAR ICU-C Primary Care Provider Active Start: January 24, 2025 End: January 24, 2025 Ada Wheeler NP-C Attending Provider Active Start: January 24, 2025 End: January 24, 2025 Ada Wheeler NP-C Referring Provider Active Start: January 24, 2025 End: January 24, 2025 VANESSA Ro Other Provider Active Start : January 24, 2025 End: January 24, 2025 Team Status: Inactive Member Role/Relationship Status Dates Leonora Davalos NP, RN CARDIOVASCULAR ICU-C Primary Care Provider Active Start: February 05, 2025 End: February 05, 2025 VANESSA Ro Attending Provider Active S tart: February 05, 2025 End: February 05, 2025 Antonietta Wade NP-C Referring Provider Active S tart: February 05, 2025 End: February 05, 2025 Team Status: Inactive Member Role/Relationship Status Dates Leonora Davalos NP, RN CARDIOVASCULAR ICU-C Primary Care Provider Active Start: February 20, 2025 End: February 20, 2025 Leonora Davalos NP, RN CARDIOVASCULAR ICU-C Attending Provider Active Start: February 20, 2025 End: February 20, 2025 Leonora Davalos NP, RN CARDIOVASCULAR ICU-C Referring Provider Active Start: February 20, 2025 End: February 20, 2025 Parole Officer Relationship Specialty Start Date End Date Leonora Davalos APRN.CNP [address] [address] PCP - General Family Medicine 02/21/22 [place] [address] [place] [address] [employer] Miner Gastroenterology 11/02/21 Aly Mosley DO [address] [place] [address] Bull Fiddle Player Cardiology 02/14/22 Elmer Manley MD [address] [address] Consulting Infectious Diseases 03/20/25 Leonora Davalos, COMMUTER PILOT[employer]SALES AND MARKETING ASSISTANT [address] [place] [address] Home Care Provider Family Medicine 03/20/25 [place] [address] [address] [place], [place] [id number] Referring Internal Medicine 03/20/25 Parole Officer Relationship Specialty Start Date End Date Leonora Davalos, COMMUTER PILOT[employer]SALES AND MARKETING ASSISTANT [address] [place] [address] PCP - General Family Medicine 02/21/22 [place] [address] [place] [address] Clay Miner Gastroenterology 11/02/21 Aly Mosley DO [address] [place] [address] Bull Fiddle Player Cardiology 02/14/22 Elmer Manley MD [address] [address] Consulting Infectious Diseases 03/20/25 Leonora Davalos, COMMUTER PILOT[employer]SALES AND MARKETING ASSISTANT [address] [place] [address] Home Care Provider Family Medicine 03/20/25 [place] [address] [place] [address] Referring Internal Medicine 03/20/25 Parole Officer Relationship Specialty Start Date End Date Leonora Davalos, COMMUTER PILOT[employer]SALES AND MARKETING ASSISTANT [address] [address] PCP - General Family Medicine 02/21/22 [place] [address] [place] [address] Clay Miner Gastroenterology 11/02/21 Aly Mosley DO [address] [place] [address] Bull Fiddle Player Cardiology 02/14/22 Elmer Manley MD [address] [address] Consulting Infectious Diseases 03/20/25 Leonora Davalos, COMMUTER PILOT[employer]SALES AND MARKETING ASSISTANT [address] [facility] [address] [place] [address] Home Care Provider Family Medicine 03/20/25 [place] [address] [place] [address] Referring Internal Medicine 03/20/25 Parole Officer Relationship Specialty Start Date End Date Leonora Davalos, COMMUTER PILOT[employer]SALES AND MARKETING ASSISTANT [address] [facility] [address] [place] [address] PCP - General Family Medicine 02/21/22 [place] [address] [place] [address] Clay Miner Gastroenterology 11/02/21 Aly Mosley DO [address] [place] [address] Bull Fiddle Player Cardiology 02/14/22 Elmer Manley MD [address] [address] Consulting Infectious Diseases 03/20/25 Leonora Davalos APRN.SALES AND MARKETING ASSISTANT [address] [facility] [address] [place] [address] Home Care Provider Family Medicine 03/20/25 [place] [address] [place] [address] Referring Internal Medicine 03/20/25 Team Status: Inactive Member Role/Relationship Status Dates Leonora Davalos NP, RN CARDIOVASCULAR ICU-C Primary Care Provider Active Start: January 07, 2025 End: January 07, 2025 Marissa Camp RN CARDIOVASCULAR ICU, RN CARDIOVASCULAR ICU-C Attending Provider Active Start: January 07, 2025 End: January 07, 2025 Marissa Camp NP, RN CARDIOVASCULAR ICU-C Referring Provider Active Start: January 07, 2025 End: January 07, 2025 Team Status: Active Member Role/Relationship Status Dates Leonora Davalos RN CARDIOVASCULAR ICU, RN CARDIOVASCULAR ICU-C Primary Care Provider Active Start: January 10, 2025 Marissa Camp RN CARDIOVASCULAR ICU, RN CARDIOVASCULAR ICU-C Referring Provider Active Start: January 10, 2025 Marissa Camp RN CARDIOVASCULAR ICU, RN CARDIOVASCULAR ICU-C Other Provider Active Start: January 10, 2025 Dr. Yaya Gray , Attending Provider Active S tart: January 10, 2025 Team Status: Inactive Member Role/Relationship Status Dates Leonora Davalos NP, RN CARDIOVASCULAR ICU-C Primary Care Provider Active Start: January 10, 2025 End: January 10, 2025 Leonora Davalos NP, RN CARDIOVASCULAR ICU-C Referring Provider Active Start: January 10, 2025 End: January 10, 2025 Ada Wheeler RN CARDIOVASCULAR ICU-C Attending Provider Active Start: January 10, 2025 End: January 10, 2025 Team Status: Inactive Member Role/Relationship Status Dates Leonora Davalos NP, RN CARDIOVASCULAR ICU-C Primary Care Provider Active Start: January 16, 2025 End: January 16, 2025 Ada Wheeler RN CARDIOVASCULAR ICU-C Attending Provider Active Start: January 16, 2025 End: January 16, 2025 Ada Wheeler RN CARDIOVASCULAR ICU-C Referring Provider Active Start: January 16, 2025 End: January 16, 2025 Team Status: Inactive Member Role/Relationship Status Dates Leonora Davalos RN CARDIOVASCULAR ICU, RN CARDIOVASCULAR ICU-C Primary Care Provider Active Start: January 23, 2025 End: January 23, 2025 Leonora Davalos NP, RN CARDIOVASCULAR ICU-C Referring Provider Active Start: January 23, 2025 End: January 23, 2025 Antonietta Wade RN CARDIOVASCULAR ICU-C Attending Provider Active S tart: January 23, 2025 End: January 23, 2025 Team Status: Inactive Member Role/Relationship Status Dates Leonora Davalos NP, RN CARDIOVASCULAR ICU-C Primary Care Provider Active Start: January 23, 2025 End: January 23, 2025 Antonietta Wade RN CARDIOVASCULAR ICU-C Attending Provider Active S tart: January 23, 2025 End: January 23, 2025 Antonietta Wade RN CARDIOVASCULAR ICU-C Referring Provider Active S tart: January 23, 2025 End: January 23, 2025 Team Status: Inactive Member Role/Relationship Status Dates Leonora Davalos NP, RN CARDIOVASCULAR ICU-C Primary Care Provider Active Start: January 24, 2025 End: January 24, 2025 Ada Wheeler RN CARDIOVASCULAR ICU-C Attending Provider Active Start: January 24, 2025 End: January 24, 2025 Ada Wheeler NP-C Referring Provider Active Start: January 24, 2025 End: January 24, 2025 Antonietta Wade RN CARDIOVASCULAR ICU-C Other Provider Active Start : January 24, 2025 End: January 24, 2025 Team Status: Inactive Member Role/Relationship Status Dates Leonora Davalos NP, RN CARDIOVASCULAR ICU-C Primary Care Provider Active Start: February 05, 2025 End: February 05, 2025 Antonietta Wade NP-C Attending Provider Active S tart: February 05, 2025 End: February 05, 2025 Antonietta Wade NP-Yeyo Referring Provider Active S tart: February 05, 2025 End: February 05, 2025 Team Status: Inactive Member Role/Relationship Status Dates Leonora Davalos NP, RN CARDIOVASCULAR ICU-C Primary Care Provider Active Start: February 20, 2025 End: February 20, 2025 Leonora Davalos RN CARDIOVASCULAR ICU, RN CARDIOVASCULAR ICU-C Attending Provider Active Start: February 20, 2025 End: February 20, 2025 Leonora Davalos RN CARDIOVASCULAR ICU, RN CARDIOVASCULAR ICU-C Referring Provider Active Start: February 20, 2025 End: February 20, 2025 Team Status: Inactive Member Role/Relationship Status Dates Leonora Davalos RN CARDIOVASCULAR ICU, RN CARDIOVASCULAR ICU-C Primary Care Provider Active Start: April 22, 2025 End: April 22, 2025 Leonora Davalos NP, RN CARDIOVASCULAR ICU-C Referring Provider Active Start: April 22, 2025 End: April 22, 2025 Ada Wheeler NP-C Attending Provider Active Start: April 22, 2025 End: April 22, 2025 Parole Officer Relationship Specialty Start Date End Date Leonora Davalos, COMMUTER PILOT[employer]SALES AND MARKETING ASSISTANT [address] [address] PCP - General Family Medicine 02/21/22 [place] [address] [place] [address] Clay Miner Gastroenterology 11/02/21 Aly Mosley DO [address] [place] [address] Bull Fiddle Player Cardiology 02/14/22 Elmer Manlye MD [address] [address] Consulting Infectious Diseases 03/20/25 Leonora Davalos, COMMUTER PILOT[employer]SALES AND MARKETING ASSISTANT [address] [place] [address] Home Care Provider Family Medicine 03/20/25 [place] [address] [place] [address] Referring Internal Medicine 03/20/25 Parole Officer Relationship Specialty Start Date End Date Leonora Davalos, COMMUTER PILOT[employer]SALES AND MARKETING ASSISTANT [address] [place] [address] PCP - General Family Medicine 02/21/22 [place] [address] [place] [address] Clay Miner Gastroenterology 11/02/21 Aly Mosley DO [address] [place] [address] Bull Fiddle Player Cardiology 02/14/22 Elmer Manley MD [address] [address] Consulting Infectious Diseases 03/20/25 Leonora Davalos, COMMUTER PILOT[employer]SALES AND MARKETING ASSISTANT [address] [place] [address] Home Care Provider Family Medicine 03/20/25 [place] [address] [place] [address] Referring Internal Medicine 03/20/25 Parole Officer Relationship Specialty Start Date End Date Leonora Davalos, COMMUTER PILOT.SALES AND MARKETING ASSISTANT [address] [facility] [address] [place] [address] PCP - General Family Medicine 02/21/22 [place] [address] [place] [address] Clay Miner Gastroenterology 11/02/21 Aly Mosley DO [address] [place] [address] Bull Fiddle Player Cardiology 02/14/22 Elmer Manley MD [address] [address] Consulting Infectious Diseases 03/20/25 Leonora Davalos, COMMUTER PILOT.SALES AND MARKETING ASSISTANT [address] [address] Home Care Provider Family Medicine 03/20/25 [place] [address] [place] [address] Referring Internal Medicine 03/20/25 Parole Officer Relationship Specialty Start Date End Date Leonora Davalos, COMMUTER PILOT.SALES AND MARKETING ASSISTANT [address] [address] PCP - General Family Medicine 02/21/22 [place] [address] [place] [address] Clay Miner Gastroenterology 11/02/21 Aly Mosley DO [address] [place] [address] Bull Fiddle Player Cardiology 02/14/22 Elmer Manley MD [address] [place], [place] [address] Consulting Infectious Diseases 03/20/25 Leonora Davalos, COMMUTER PILOT.SALES AND MARKETING ASSISTANT [address] [place] [address] Home Care Provider Family Medicine 03/20/25 [place] [address] [place] [address] Referring Internal Medicine 03/20/25 Parole Officer Relationship Specialty Start Date End Date Leonora Davalos, COMMUTER PILOT.SALES AND MARKETING ASSISTANT [address] [place] [address] PCP - General Family Medicine 02/21/22 [place] [address] [place] [address] Clay Miner Gastroenterology 11/02/21 Aly Mosley DO [address] [place] [address] Bull Fiddle Player Cardiology 02/14/22 Elmer Manley MD [address] [place], [place] [address] Consulting Infectious Diseases 03/20/25 Leonora Davalos, COMMUTER PILOT.SALES AND MARKETING ASSISTANT [address] [place], [place] [address] Home Care Provider Family Medicine 03/20/25 [place] [address] [place] [address] Referring Internal Medicine 03/20/25 Parole Officer Relationship Specialty Start Date End Date Leonora Davalos, COMMUTER PILOT.SALES AND MARKETING ASSISTANT [address] [place] [address] PCP - General Family Medicine 02/21/22 [place] [address] [place] [address] Clay Miner Gastroenterology 11/02/21 Aly Mosley DO [address] [place], [place] [id number] Bull Fiddle Player Cardiology 02/14/22 Elmer Manley MD [address] [place] [address] Consulting Infectious Diseases 03/20/25 Leonora Davalos, COMMUTER PILOT.SALES AND MARKETING ASSISTANT [address] [place] [address] Home Care Provider Family Medicine 03/20/25 [place] [address] [place] [address] Referring Internal Medicine 03/20/25 Parole Officer Relationship Specialty Start Date End Date Leonora Davalos, COMMUTER PILOT.SALES AND MARKETING ASSISTANT [address] [place] [address] PCP - General Family Medicine 02/21/22 [place] [address] [place] [address] Clay Miner Gastroenterology 11/02/21 Aly Mosley DO [address] [place] [address] Bull Fiddle Player Cardiology 02/14/22 Elmer Manley MD [address] [facility] [address] [place] [address] Consulting Infectious Diseases 03/20/25 Leonora Davalos APRN.CNP [address] [facility] [address] [place] [address] Home Care Provider Family Medicine 03/20/25 [place] [address] [place] [address] Referring Internal Medicine 03/20/25 Team Status: Inactive Member Role/Relationship Status Dates Leonora Davalos NP, RN CARDIOVASCULAR ICU-C Primary Care Provider Active Start: February 05, 2025 End: February 05, 2025 VANESSA Ro Attending Provider Active S tart: February 05, 2025 End: February 05, 2025 VANESSA Ro Referring Provider Active S tart: February 05, 2025 End: February 05, 2025 Team Status: Inactive Member Role/Relationship Status Dates Leonora Davalos NP, RN CARDIOVASCULAR ICU-C Primary Care Provider Active Start: February 20, 2025 End: February 20, 2025 Leonora Dvaalos NP RN CARDIOVASCULAR ICU-C Attending Provider Active Start: February 20, 2025 End: February 20, 2025 Leonora Davalos NP, RN CARDIOVASCULAR ICU-C Referring Provider Active Start: February 20, 2025 End: February 20, 2025 Team Status: Inactive Member Role/Relationship Status Dates Leonora Davalos NP, RN CARDIOVASCULAR ICU-C Primary Care Provider Active Start: April 22, 2025 End: April 22, 2025 Leonora Davalos RN CARDIOVASCULAR ICU, RN CARDIOVASCULAR ICU-C Referring Provider Active Start: April 22, 2025 End: April 22, 2025 Ada Wheeler RN CARDIOVASCULAR ICU-C Attending Provider Active Start: April 22, 2025 End: April 22, 2025 Team Status: Inactive Member Role/Relationship Status Dates Leonora Davalos RN CARDIOVASCULAR ICU, RN CARDIOVASCULAR ICU-C Primary Care Provider Active Start: May 09, 2025 End: May 09, 2025 Ada Wheeler RN CARDIOVASCULAR ICU-C Attending Provider Active Start: May 09, 2025 End: May 09, 2025 Team Status: Active Member Role/Relationship Status Dates Leonora Davalos RN CARDIOVASCULAR ICU, RN CARDIOVASCULAR ICU-C Primary care physician Active Team Status: Inactive Member Role/Relationship Status Dates Leonora Davalos RN CARDIOVASCULAR ICU, RN CARDIOVASCULAR ICU-C Primary care physician Active Start: April 22, 2025 End: April 22, 2025 Leonora Davalos RN CARDIOVASCULAR ICU, RN CARDIOVASCULAR ICU-C Referring Provider Active Start: April 22, 2025 End: April 22, 2025 Ada Wheeler RN CARDIOVASCULAR ICU-C Attending physician Active Start: April 22, 2025 End: April 22, 2025 Team Status: Inactive Member Role/Relationship Status Dates Leonora Davalos NP, RN CARDIOVASCULAR ICU-C Primary care physician Active Start: May 09, 2025 End: May 09, 2025 Ada Wheeler RN CARDIOVASCULAR ICU-C Attending physician Active Start: May 09, 2025 End: May 09, 2025 Team Status: Inactive Member Role/Relationship Status Dates Leonora Davalos NP, RN CARDIOVASCULAR ICU-C Primary care physician Active Start: June 27, 2025 End: June 27, 2025 Leonora Davalos NP, RN CARDIOVASCULAR ICU-C Referring Provider Active Start: June 27, 2025 End: June 27, 2025 Dr. Carson Hobbs MD Attending physician Active Start: June 27, 2025 End: June 27, 2025 Team Status: Inactive Member Role/Relationship Status Dates Leonora Davalos NP, RN CARDIOVASCULAR ICU-C Primary care physician Active Start: June 30, 2025 End: June 30, 2025 Dr. Carson Hobbs MD Attending physician Active Start: June 30, 2025 End: June 30, 2025 Dr. Carson Hobbs MD Referring Provider Active S tart: June 30, 2025 End: June 30, 2025 Team Status: Active Member Role/Relationship Status Dates Leonora Davalos NP, RN CARDIOVASCULAR ICU-C Primary care physician Active Start: June 30, 2025 Dr. Cesar Smith MD Attending physician Active St art: June 30, 2025 FOR RECORDS PERTAINING TO PATIENTS WHO ARE OR HAVE BEEN ENROLLED IN A CHEMICAL DEPENDENCY/SUBSTANCEABUSE PROGRAM, SOME INFORMATION MAY BE OMITTED. This clinical summary was aggregated from multiple sources. Caution should be exercised in using it in the provision of clinical care. This summary normalizes information from multiple sources, and as a consequence, information in this document may materially change the coding, format and clinical context of patient data. In addition, data may be omitted in some cases. CLINICAL DECISIONS SHOULD BE BASED ON THE PRIMARY CLINICAL RECORDS. [email or web address] [facility]. provides no warranty or guarantee of the accuracy or completeness of information in this document.
[2025-08-02 12:59] VITALS: BP 121/94; PULSE 82; RESP 16; TEMP 36.6; O2SAT 97
[2025-08-02 13:15] VITALS: BP 121/94; PULSE 82; RESP 16; TEMP 36.6; O2SAT 97
== END 2025-08-02 13:21 | disposition home or self-care (01) ==
PROVIDERS: Emergency Provider Surgery; PCP Nurse Practitioner; Visit Provider Surgery
DX: M25.562 Pain in left knee (principal); I50.32 Chronic diastolic (congestive) heart failure; I48.0 Paroxysmal atrial fibrillation; E11.9 Type 2 diabetes mellitus without complications; Z86.718 Personal history of other venous thrombosis and embolism; Z87.891 Personal history of nicotine dependence; E66.9 Obesity, unspecified; I25.10 Atherosclerotic heart disease of native coronary artery without angina pectoris; E78.00 Pure hypercholesterolemia, unspecified; M25.462 Effusion, left knee; Z79.01 Long term (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; X58.XXXA Exposure to other specified factors, initial encounter
CPT/HCPCS: 73700; 99283

== ENCOUNTER → 2025-09-08 | Outpatient (CLI) | payer MEDICARE, SELFPAY ==
--- NOTE | 2025-09-08 07:30 | BI_ITS ---
EXAM: SCRN MAMM (CAD)W/CHRISTIANO BILAT DATE: 09/08/2025 CLINICAL HISTORY: F, Age 69 y/o , SCREEN FOR BREAST CANCER History of left breast cancer. She has had a lumpectomy with radiation therapy. She has a mother who was diagnosed with breast cancer. TECHNIQUE: Procedure Code: [id number] Modality: MG Procedure: SCRN MAMM (CAD)W/CHRISTIANO BILAT COMPARISON: Prior exam(s) dated 09/05/2024, 08/10/2023 and 07/31/2022.. FINDINGS: TISSUE DENSITY: There are scattered areas of fibroglandular density. Bilateral Breast Mammographic Findings: No suspicious masses, suspicious cluster of microcalcifications, architectural distortion or secondary signs of malignancy is identified in the right breast. Benign vascular calcifications and round calcifications are seen. A radiopaque clip is seen. The biopsy was benign. Post biopsy site is stable. Architectural distortion, increased density and dystrophic type calcifications are seen in the superior outer aspect of the left breast at the post lumpectomy and postradiation site. This area appears stable. Benign-appearing vascular calcifications, round microcalcifications and macrocalcifications are seen in the left breast. There is no mammographic abnormality identified in the left breast to suggest new or recurrent malignancy. BI/SCRN MAMM (CAD)W/CHRISTIANO BILAT IMPRESSION: Benign screening mammogram. OVERALL FINAL ASSESSMENT BI-RADS 2: BENIGN RECOMMENDATION: Routine annual follow-up in 1 Year Additional Recommendation none A letter with findings and recommendations will be mailed to the patient. Reading Location: [id number]
--- OUTSIDE RECORDS SUMMARY | 2025-09-08 07:30 | XMS RPT_ITS | CCD ---
Author Organization [facility] Care Team Providers Care Special Services Director Name Role Phone Betsy Miller Krystle Unavailable Unavailable Betsy Miller Unavailable Unavailable Dr. Shiraz Stephens Primary Care Provider Dr. Shiraz Stephens Referring Provider Faraz CRITICAL CARE RN, CRITICAL CARE RN-Yeyo Hill Attending Provider Dr. Niko Edgar Attending Provider Camp CRITICAL CARE RN, CRITICAL CARE RN-Yeyo Ann Attending Provider Ryan Tovar MD Unavailable Shiraz Stephens MD Primary Care Provider Rosy Esteban MD Unavailable Dr. Shiraz Stephens Primary Care Provider Dr. Shiraz Stephens Referring Provider Faraz CRITICAL CARE RN, IJEOMA-Yeyo Hill Attending Provider [place], [place] Lisa Attending Provider Unavailab Aly Lazo DO Unavailable Anoop MAGDALENO.Leonora AL Primary Care Provide r Ryan Tovar MD Unavailable Rosy Esteban MD Unavailable Aly Mosley DO Unavailable Leonora Davalos APRN.CNP Primary Care Provide r Ryan Tovar MD Unavailable Anoop RESTAURANT AREA DIRECTOR.[facility], Leonora L Primary Care Provide r Ryan Tovar MD Unavailable Unavaila ble Anoop RESTAURANT AREA DIRECTOR.[facility], Leonora L Primary Care Provide r Dr. Shiraz Stephens Primary Care Provider Dr. Shiraz Stephens Referring Provider [phone] Dr. Carson Hobbs Attending Provider Dr. Carlos Eduardo Matute Attending Provider Anoop CRITICAL CARE RN, CRITICAL CARE RN-C Leonora Primary Care Provider Dr. Cayla Jolley Attending Provider La QUAN, Ryan Aguilar Unavailable Carlito QUAN, Rosy Unavailable Aly Mosley DO Unavailable Anoop RESTAURANT AREA DIRECTOR.[facility], Leonora L Primary Care Provide r Anoop CRITICAL CARE RN, CRITICAL CARE RN-C Leonora Referring Provider Cuong RAPHAEL, CRITICAL CARE RN-C Tanya Hawley Attending Provider Dr. Shiraz Stephens Referring Provider Dr. Cayla Jolley Attending Provider [phone] Anoop CRITICAL CARE RN, CRITICAL CARE RN-C Leonora Primary Care Provider Anoop CRITICAL CARE RN, CRITICAL CARE RN-C Leonora Referring Provider Cuong RAPHAEL NP-C Tanya Hawley Attending Provider Faraz CRITICAL CARE RN, IJEOMA-Yeyo Hill Attending Provider Anoop CRITICAL CARE RN, CRITICAL CARE RN-C Leonora Primary Care Provider Anoop CRITICAL CARE RN, CRITICAL CARE RN-C Leonora Referring Provider Zoë RAPHAEL, CRITICAL CARE RNErwin Ann Attending Provider Faraz CRITICAL CARE RN, CRITICAL CARE RN-C Mehrdad Hill Attending Provider Camp CRITICAL CARE RN, CRITICAL CARE RN-C Marissa Referring Provider Camp CRITICAL CARE RN, CRITICAL CARE RN-C Marissa Other Provider Dr. Yaya Gray Attending Provider Carlito QUAN, Rosy Unavailable Aly Mosley DO Unavailable Davalos CRITICAL CARE RN, CRITICAL CARE RN-C Leonroa Primary Care Provider Davalos CRITICAL CARE RN, CRITICAL CARE RN-C Leonora Referring Provider Roof CRITICAL CARE RN, CRITICAL CARE RN-C Mehrdad Hill Attending Provider Camp CRITICAL CARE RN, CRITICAL CARE RN-C Marissa Referring Provider Camp CRITICAL CARE RN, CRITICAL CARE RN-C Marissa Other Provider Dr. Yaya Gray Attending Provider Dr. Carson Hobbs Attending Provider Dr. Carlos Eduardo Matute Attending Provider Davalos CRITICAL CARE RN, CRITICAL CARE RN-C Leonora Primary Care Provider Faraz CRITICAL CARE RN, CRITICAL CARE RN-C Mehrdad Hill Attending Provider Davalos CRITICAL CARE RN, CRITICAL CARE RN-C Leonora Referring Provider Samantha CRITICAL CARE RN, CRITICAL CARE RN-C Padmini Attending Provider Aly Mosley DO Unavailable Anoop RESTAURANT AREA DIRECTOR.[employer], Leonora L Primary Care Provide r Davalos CRITICAL CARE RN-C, Leonora Primary Care Provider Davalos CRITICAL CARE RN-C, Leonora Referring Provider Dr. Cayla Jolley MD Attending Provider Zoë CRITICAL CARE RN-C, Marissa Attending Provider Dr. Cayla Jolley MD Referring Provider Dr. Tonja Givens DO Attending Provider Dr. Tonja Givens DO Emergency Provider Roof CRITICAL CARE RN-C, Mehrdad H Attending Provider Roof CRITICAL CARE RN-C, Mehrdad H Referring Provider Davalos CRITICAL CARE RN-C, Leonora Attending Provider Davalos CRITICAL CARE RN-C, Leonora Primary Care Provider Davalos CRITICAL CARE RN-C, Leonora Referring Provider Shola QUAN, Dr. Kulkarni Attending Provider Zoë CRITICAL CARE RN-C, Marissa Attending Provider Dr. Cayla Jolley MD Referring Provider Chon MAGALLANES, Dr. Henderson Attending Provider Dr. Tonja Givens DO Emergency Provider Roof CRITICAL CARE RN-C, Mehrdad H Attending Provider Roof CRITICAL CARE RN-C, Mehrdad H Referring Provider Davalos CRITICAL CARE RN-C, Leonora Attending Provider Camp CRITICAL CARE RN-C, Marissa Referring Provider Sunita Delgado Attending Provider Sunita Delgado Referring Provider Anjel QUAN, Dr. Byrd Attending Provider Unavailable Primary Care Provider Unavailabl e Davalos CRITICAL CARE RN-C, Leonora Primary Care Provider Davalos CRITICAL CARE RN-C, Leonroa Referring Provider Camp CRITICAL CARE RN-C, Marissa Attending Provider Zëo CRITICAL CARE RN-C, Marissa Other Provider [phone] Yaya Gray DO Attending Provider Liam CRITICAL CARE RN-CAda Attending Provider Liam CRITICAL CARE RN-C, Ada Hawley Referring Provider Mauro CRITICAL CARE RN-CAntonietta Attending Provider Mauro RAPHAEL-C, Antonietta Referring Provider Davalos CRITICAL CARE RN-C, Leonora Primary Care Provider [phone] Mauro CRITICAL CARE RN-C, Antonietta Other Provider Robin QUAN, Elmer Unavailable Davalos RESTAURANT AREA DIRECTOR.[employer], Leonora L Unavailable Erin QUAN, Pilar Unavailable Sameera QUINONES, Kwasi Unavailable La QUAN, Ryan Aguilar Unavailable Sameera QUINONES, Kwasi Unavailable Davalos CRITICAL CARE RN-C, Leonora Primary Care Provider Roof CRITICAL CARE RN-C, Mehrdad H Attending Provider Roof CRITICAL CARE RN-C, Mehrdad H Referring Provider Anjel QUAN, Dr. Byrd Attending Provider Camp CRITICAL CARE RN-C, Marissa Attending Provider Zoë CRITICAL CARE RN-C, Marissa Referring Provider Zoë CRITICAL CARE RN-C, Marissa Other Provider Dr. Yaya Gray DO Attending Provider [phone] Davalos CRITICAL CARE RN-C, Leonora Referring Provider Liam CRITICAL CARE RN-C, Ada Hawley Attending Provider Liam CRITICAL CARE RN-C, Ada Hawley Referring Provider Mauro CRITICAL CARE RN-C, Antonietta Attending Provider [phone] Mauro CRITICAL CARE RN-C, Antonietta Referring Provider [phone] Wade CRITICAL CARE RN-C, Antonietta Other Provider Davalos CRITICAL CARE RN-C, Leonora Attending Provider Davalos CRITICAL CARE RN-C, Leonora Primary Care Provider [phone] DAVALOS, LEONORA L Primary Care Unavailable MARLON [...] DAVALOS, LEONORA L Primary Care Unavailable Davalos CRITICAL CARE RN-C, Leonora Primary Care Provider Mauro CRITICAL CARE RN-CAntonietta Attending Provider Mauro CRITICAL CARE RN-CAntonietta Referring Provider [phone] Anoop CRITICAL CARE RN-C, Leonora Referring Provider [phone] Liam RAPHAEL-CAda Attending Provider DAVALOS, LEONORA L [...] Attending Unavailable ROYER FERGUSON Referring Unavailable Davalos CRITICAL CARE RN-C, Leonora Primary Care Physician Davalos CRITICAL CARE RN-C, Leonora Referring Provider Liam RAPHAEL-Ada Orona Attending Physician Anjel QUAN, Dr. Byrd Attending Physician [phone] Anjel QUAN, Dr. Byrd Referring Provider [phone] Luis QUAN, Dr. Guerrero Attending Physician [phone] Camp CRITICAL CARE RN, Marissa Attending Unavailable Camp CRITICAL CARE RN, Marissa Referring Unavailable Davalos CRITICAL CARE RN, Leonora Primary Care Unavailable Roof CRITICAL CARE RN, Mehrdad H Referring Unavailable Roof CRITICAL CARE RN, Mehrdad H Attending Unavailable Davalos CRITICAL CARE RN, Leonora Primary Care Unavailable Antonietta Wade Referring Unavailable Antonietta Wade Attending Unavailable Davalos CRITICAL CARE RN, Leonora Primary Care Unavailable Ada Wheeler Attending Unavailable Davalos CRITICAL CARE RN, Leonora Primary Care Unavailable Davalos CRITICAL CARE RN, Leonora Primary Care Unavailable Valentina JAY, Sunita M Referring Unavail able Sunita Delgado Attending Unavail able Camp CRITICAL CARE RN, Marissa Attending Unavailable Camp CRITICAL CARE RN, Marissa Referring Unavailable Davalos CRITICAL CARE RN, Leonora Primary Care Unavailable Yaya Gray Attending Unavailable Davalos CRITICAL CARE RN, Leonora Primary Care Unavailable Camp CRITICAL CARE RN, Marissa Consulting Unavailable Camp CRITICAL CARE RN, Marissa Referring Unavailable Davalos CRITICAL CARE RN, Leonora Referring Unavailable Davalos CRITICAL CARE RN, Leonora Primary Care Unavailable Camp CRITICAL CARE RN, Marissa Attending Unavailable Antonietta Wade Referring Unavailable Antonietta Wade Attending Unavailable Davalos CRITICAL CARE RN, Leonora Primary Care Unavailable Davalos CRITICAL CARE RN, Leonora Primary Care Unavailable Tonja Givens Attending Unavailable Davalos CRITICAL CARE RN, Leonora Primary Care Unavailable Carson Hobbs Referring Unavailable Carson Hobbs Attending Unavailable Cesar Smith Attending Unavailable Davalos CRITICAL CARE RN, Leonora Primary Care Unavailable Davalos CRITICAL CARE RN, Leonora Primary Care Unavailable Cayla Jolley Referring Unavailable Cayla Jolley Attending Unavailable Ada Wheeler Referring Unavailable Ada Wheeler Attending Unavailable Davalos CRITICAL CARE RN, Leonora Primary Care Unavailable Ada Wheeler Referring Unavailable Ada Wheeler Attending Unavailable Antonietta Wade Consulting Unavailable Davalos CRITICAL CARE RN, Leonora Primary Care Unavailable Davalos CRITICAL CARE RN, Leonora Primary Care Unavailable Cayla Jolley Referring Unavailable Cayla Jolley Attending Unavailable Davalos CRITICAL CARE RN, Leonora Referring Unavailable Ada Wheeler Attending Unavailable Anoop CRITICAL CARE RN, Leonora Primary Care Unavailable Davalos CRITICAL CARE RN, Leonora Referring Unavailable Davalos CRITICAL CARE RN, Leonora Primary Care Unavailable Carson Hobbs Attending Unavailable Davalos CRITICAL CARE RN, Leonora Primary Care Unavailable Cayla Jolley Referring Unavailable Cayla Jolley Attending Unavailable Roof CRITICAL CARE RN, Mehrdad H Referring Unavailable Roof CRITICAL CARE RN, Mehrdad H Attending Unavailable Davalos CRITICAL CARE RN, Leonora Primary Care Unavailable Davalos CRITICAL CARE RN, Leonora Primary Care Unavailable Davalos CRITICAL CARE RN, Leonora Referring Unavailable Roof CRITICAL CARE RN, Mehrdad H Attending Unavailable Davalos CRITICAL CARE RN, Leonora Referring Unavailable Antonietta Wade Attending Unavailable Davalos CRITICAL CARE RN, Leonora Primary Care Unavailable Davalos CRITICAL CARE RN, Leonora Referring Unavailable Ada Wheeler Attending Unavailable Davalos CRITICAL CARE RN, Leonora Primary Care Unavailable Davalos CRITICAL CARE RN, Leonora Referring Unavailable Davalos CRITICAL CARE RN, Leonora Primary Care Unavailable Cayla Jolley Attending Unavailable Yaya Gray Attending Unavailable Davalos CRITICAL CARE RN, Leonora Primary Care Unavailable Camp CRITICAL CARE RN, Marissa Referring Unavailable Davalos CRITICAL CARE RN, Leonora Primary Care Unavailable Carson Hobbs Attending Unavailable Allergies Allergy Classification Reported Allergen(s) Allergy Type Date of Onset Reaction(s) Facility Adhesive Tape (1 source) Adhesive Tape Substance Allergy 01-08-20 02 [facility] inFLIXimab (1 source) inFLIXimab Drug Allergy 10-21-19 21 Shortness of Breath [facility] Macrolides (antibiotic) (2 sources) Clarithromycin Drug Allergy 02-17-20 09 Hives, GI Upset, Swelling [facility] metFORMIN (1 source) metFORMIN Drug Allergy 05-25-20 22 GI Upset [facility] Opioid Agonists (1 source) Meperidine Drug Allergy 03-14-20 12 Other: See Comments [facility] Penicillins (antibiotic) (1 source) Penicillins Drug Allergy 07-07-20 03 [facility] Quinolones (antibiotic) (1 source) moxifloxacin Drug Allergy 02-17-20 09 [facility] Spironolactone (1 source) Spironolactone Drug Allergy 05-14-20 20 Intolerance [facility] Work Phone: (2 sources) penicillin g Drug Allergy 06-12-20 17 hives [facility] Work Phone: (20 sources) Adhesive Tape; Translations: [ADHESIVE TAPE] Propensity to adverse reactions 01-08-20 02 / [facility] (20 sources) Clarithromycin; Translations: [CLARITHROMYCIN] Drug Allergy 02-18-20 09 Hives, GI Upset [facility] (20 sources) inFLIXimab; Translations: [INFLIXIMAB] Drug Allergy 10-21-19 Shortness of Breath [facility] (20 sources) Latex Propensity to adverse reactions 11-30-19 / [facility] (20 sources) Oxymetazoline Drug Allergy 11-30-19 CHEST PAIN [facility] (20 sources) Penicillins; Translations: [PENICILLINS] Allergy to substance 07-07-20 03 Hives [facility] (20 sources) Spironolactone; Translations: [SPIRONOLACTONE] Drug Allergy 05-14-20 20 Intolerance [facility] Work Phone: (20 sources) Erythromycin; Translations: [ERYTHROMYCIN] Drug Allergy 02-17-20 09 Swelling [facility] (20 sources) Meperidine; Translations: [MEPERIDINE (PF)] Drug Allergy 03-14-20 12 Other: See Comments [facility] (20 sources) moxifloxacin; Translations: [MOXIFLOXACIN HCL] Drug Allergy 02-17-20 09 [facility] (20 sources) Quinolones (Antibiotic); Translations: [QUINOLONES] Propensity to adverse reactions 07-12-20 04 [facility] (20 sources) some sort of dissolving suture [Other] Propensity to adverse reactions 12-28-19 05 [facility] (20 sources) Quinolones Propensity to adverse reactions 07-12-20 04 [facility] (20 sources) metFORMIN; Translations: [METFORMIN] Drug Allergy 05-25-20 GI Upset [facility] (20 sources) Sutures; Translations: [SUTURES] Propensity to adverse reactions to drug 11-28-19 Other: See Comments [facility] Work Phone: (11 sources) dulaglutide Drug Allergy 11-14-19 25 Abd cramps/diarrhe a [facility] (1 source) Clarithromycin Drug Allergy 06-27-20 25 [facility] (1 source) dulaglutide Drug Allergy 06-27-20 25 [facility] (1 source) inFLIXimab Drug Allergy 06-27-20 25 [facility] (1 source) Latex Drug allergy (disorder) 06-27-20 [facility] (1 source) Oxymetazoline Drug Allergy 06-27-20 [facility] (1 source) Spironolactone Drug Allergy 06-27-20 [facility] Rep[facility] Medications Current Medications Medication Drug Class(es) Dates Sig (Normalized) Sig (Original) atropine sulfate 0.025 mg / diphenoxylate hydrochloride 2.5 mg oral tablet (16 sources) Anticholinergic, Cholinergic Muscarinic Antagonist, Antidiarrheal Start: 09-26-2022 Start: 09-26-2022 Blood-Glucose Meter (Freesty le [place] Lite) kit (15 sources) Start: 01-06-2020 Blood-Glucose Meter (Freestyle [place] Lite) kit Active 0 .ROUTE .MEDSUPPLY January 06, 2020 8:22am As directed Start: 01-06-2020 Blood-Glucose Meter ([employer]estyle [place] Lite) kit Active 0 .ROUTE .MEDSUPPLY 1 January 06, 2020 12:00am As directed Start: 01-06-2020 Blood-Glucose Meter (Freestyle [place] Lite) kit Active 0 .ROUTE .MEDSUPPLY 1 January 06, 2020 12:00am As directed Start: 01-06-2020 Blood-Glucose Meter (Freestyle [place] Lite) kit Active 0 .ROUTE .MEDSUPPLY January [...] Comment on above: Take 1 capsule by [facility] once daily. cholestyramine resin 4000 mg [...] mouth once daily. Take 1 capsule by [facility] once daily. TAKE 1 CAPSULE BY [facility] ONCE DAILY oxyCODONE hydrochloride 5 mg oral [...] Comment on above: Take 1 tablet by [facility] once daily. sucralfate 100 mg/ml oral [...] One tablet by mouth daily LEVOTHYROXINE SODIUM [id number] Betsy Cohn LPN Start: 06-08-2017 take 1 tablet by jhon th once daily SYNTHROID 200 MCG TABS One tablet by mouth daily LEVOTHYROXINE SODIUM [id number] Betsy Cohn LPN Comment on above: Take [...] 29, 2018 12:00am November 03, 2018 12:09am [id number] 200 actuat albuterol 0.09 mg/actuat metered dose [...] TBEC One tablet by mouth daily ASPIRIN [id number] Betsy King Lalit YEE Start: 06-05-2017 End: 03-04-2019 take 1 tablet by mouth once daily Aspirin 81 mg tablet,chewable Discontinued 81 mg PO DAILY@0800 90 February 26, 2018 11:08am March 04, 2019 4:34pm Start: 06-05-2017 End: 11-04-2021 take 0.9093693437276199 tablet by mouth once daily Aspirin 81 [...] jhon th two times weekly VITAMIN D3 40758 UNIT TABS 1 tab by mouth two times weekly CHOLECALCIFEROL [id number] Betsy Christine Cohn RAILS DEVELOPER Start: 06-08-2017 take 1 tablet by jhon th every week VITAMIN D3 56491 UNIT TABS 1 tab by mouth weekly CHOLECALCIFEROL [id number] Betsy Christine Cohn RAILS DEVELOPER ciprofloxacin 500 mg oral tablet (20 sources) [...] Ergocalciferol (Vitamin D2) 50,000 unit capsule Discontinued 18964 U PO .COMPLEX March 04, 2019 4:16pm April 17, 2023 9:10am 50,000 unit PO twice weekly; 2 a week Start: 08-23-2018 End: 03-04-2019 take 2 capsules by mouth every week Ergocalciferol (Vitamin D2) 50,000 unit capsule Discontinued 80225 U PO EVERY WEEK August 23, 2018 10:31am March 04, 2019 4:18pm 2 a week Start: 06-01-2017 End: 08-23-2018 Ergocalciferol (Vitamin D2) 50,000 UNIT capsule Discontinued 58160 U PO EVERY WEEK June 01, 2017 [...] tab by mouth on mondays METHOTREXATE SODIUM [id number] Betsy Cohn LPN Start: 06-01-2017 End: 04-07-2020 [...] not open, crush, dissolve , or chew [place] (10 sources) Start: 10-29-2018 End: 03-04-2019 take 5 mg by mouth every other day [place] Discontinued 5 MG PO EVERY OTHER DAY October 29, 2018 12:58pm March 04, 2019 3:17pm Start: 10-29-2018 End: 03-04-2019 take 5 mg by mouth every other day [place] Discontinued 5 MG PO EVERY OTHER DAY October 29, 2018 1:58pm March 04, 2019 4:17pm [place] 5 mg tablet (5 sources) Start: 10-29-2018 End: 03-04-2019 take 1 tablet by mouth every other day [place] 5 mg tablet Discontinued 5 mg PO [...] 10 mL injection (DEFINITY) polyethylene glycol 3350 33771 mg powder for oral solution (20 sources) [...] POSIFLUSH) Start: 11-20-2018 End: 03-04-2019 Sodium Chloride ([place] Saline) 0.65 % aerosol,spray Discontinued 3 NMA INTRANASAL every 1 to 4 hours as needed for dry nasal passages 104 November 20, 2018 12:00am March 04, 2019 4:18pm Epistaxis Start: 11-20-2018 End: 03-04-2019 Start: 11-20-2018 End: 03-04-2019 Sodium Chloride ([place] Saline) 0.65 % aerosol,spray Discontinued 3 SPRAY [...] Two tablets by mouth twice daily SULFASALAZINE [id number] Betsy Cohn LPN Tirzepatide (1 source) Start: [...] One tablet by mouth daily VITAMIN E [id number] Betsy King Lalit YEE Start: 06-01-2017 End: [...] Status post MICHAELA guid ed cardioversion at [facility] on 07/08/2019; Chronic obstructive pulmonary disease and [...] Coronary atherosclerosis; Translations: [Atherosclerotic heart disease of [place] coronary artery with other forms of angina [...] aftercare (11 sources) Drug therapy finding; Translations: [curriculum assistant (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] 10-04-2024 Episodic Other aftercare (1 source) [facility] (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; Translations: [[facility] current use of anticoagulant] Onset: 5 Episodic [...] Obesity, Class III, BMI 40-49.9 (morbid obesity) ([facility]); Translations: [Obesity, Class III, BMI 40-49.9 [...] sources) Long-term current use of anticoagulant; Translations: [curriculum assistant (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] Onset: 2 11-02-2021 [...] 06-30-2025 Anion gap [Moles/Vol] 10 mmol/L 01-23 [facility] BUN/creatinine ratioOrdered By: Carson Hobbs on 06-30-2025 Urea nitrogen/Creatinine [Mass ratio] 14.3 mg/mg 06-30 [facility] Basic Metabolic Profile (BMP )on 06-30-2025 BUN/CRE 14.3 RATIO Normal 06-30 [facility] Comment on above: Performed By: #### L 500.2500 #### [facility] [address] [place], [address] Calcium [Mass/Vol] 9.6 mg/dL Normal 7.6-11.0 [facility] Comment on above: Performed By: #### L 500.2500 #### [facility] [address] [place], [address] Chloride [Moles/Vol] 106 mmol/L Normal 98-[address] [facility] Comment on above: Performed By: #### L 500.2500 #### [facility] [address] [place], [address] CO2 [Moles/Vol] 23.1 mmol/L Normal 21.0-32.0 [facility] Comment on above: Performed By: #### L 500.2500 #### [facility] [address] [place], [address] Creatinine [Mass/Vol] 0.75 mg/dL Normal 0.70-1.20 [facility] Comment on above: Performed By: #### L 500.2500 #### [facility] [address] [place], [address] GAP 10 Normal 5-15 [facility] Comment on above: Performed By: #### L 500.2500 #### [facility] [address] [place], [address] GFR/1.73 sq M.predicted among non-blacks MDRD (S/P/Bld) [Vol rate/Area] 86 mL/min/{1.73_m2} Normal >60 [facility] Comment on above: Result Comment: mL/m in/1.73m2 CKD-EPI Creatinine Equation (2020) Performed By: #### L 500.2500 #### [facility] [address] [place], [address] Glucose [Mass/Vol] 121 mg/dL High 70-99 [facility] Comment on above: Performed By: #### L 500.2500 #### [facility] [address] [place], [address] Potassium [Moles/Vol] 4.0 mmol/L Normal 3.3-5.1 [facility] Comment on above: Performed By: #### L 500.2500 #### [facility] [address] [place], [place], [id number] Sodium [Moles/Vol] 139 mmol/L Normal 133-145 [facility] Comment on above: Performed By: #### L 500.2500 #### [facility] [address] [place], [place], [id number] Urea nitrogen [Mass/Vol] 11 mg/dL Normal 4-19 [facility] Comment on above: Performed By: #### L 500.2500 #### [facility] [address] [place], [place], [id number] Carbon dioxide, total [Moles /volume] in Central venous bloodOrdered By: [place] Anjel on 06-30-2025 CO2 [Moles/Vol] 23.1 mmol/L 21.0-32.0 [facility] Chloride assayOrdered By: Cy ril Anjel on 06-30-2025 Chloride [Moles/Vol] 106 mmol/L 98-[address] [facility] Glomerular filtration rate ( GFR) estimation/1.73 sq m using serum, plasma, or whole bOrdered By: Carson Anjel on 06-30-2025 GFR/1.73 sq M.predicted among non-blacks MDRD (S/P/Bld) [Vol rate/Area] 86 mL/min/{1.73_m2} >60 [facility] Comment on above: mL/min/1.73m2 CKD-EP I Creatinine Equation (2020) L3890.6001on 06-30-2025 HEP B Surf Ab Non-Reactive Normal [facility] Comment on above: Order Comment: EXTRA BLOOD DRAWN MG4 1 B OR MG4 2 I Result Comment: <8.5 mIU/mL: Non-Reactive 8.5<= x <11.5 mIU/mL: Indeterminate >=11.5 mIU/mL: Reactive Non Reactive: Inconsistent with immunity less than <10 mIU/mL Reactive: Consistent with immunity greater than or equal to 10 mIU/mL Performed By: #### L 3890.6001 ####[facility] [id number] [place], [place], [id number] HEP B Surf Ag Non-Reactive Normal Nonreactive [facility] Comment on above: Order Comment: EXTRA BLOOD DRAWN MG4 1 B OR MG4 2 I Result Comment: Reac tive: Presumptive evidence of HBV. Repeatedly reactive samples must be confirmed using a neutralization test ([facility] HBsAg Confirmatory Test) Non-Reactive: HBsAg not detected; does not exclude the possibility of exposure to HBV Performed By: #### L 3890.6001 ####[facility] [id number] [place], [address] Hepatitis C Ab Non-Reactive Normal Nonreactive [facility] Comment on above: Order Comment: EXTRA BLOOD [...] HCV Quant by PCR testing - HCVPCR [id number] Non Reactive: < 0.8 Equivocal: >/= 0.8 to < 1.0 Reactive: >/= 1.0 The CDC requires that a reactive/equivocal HCV antibody result be sent out for confirmation. HCV Quant by PCR testing. Performed By: #### L 3890.6001 ####[facility] [id number] [facility] [place], [address] HIV Non-Reactive Normal Nonreactive [facility] Comment on above: Order Comment: EXTRA BLOOD [...] Order the HIV antibody detection and differentiation: [id number] Performed By: #### L 3890.6001 ####[facility] [id number] [facility] [place], [address] Laboratory - Microbiology an d Antimicrobial susceptibilityOrdered By: Cesar Smith on 06-30-2025 HBV surface Ag Ql (S) Non-Reactive Nonreactive [facility] Comment on above: Reactive: Presumptiv e evidence of HBV. Repeatedly reactive samples must be confirmed using a neutralization test ([employer] HBsAg Confirmatory Test)Non-Reactive: HBsAg not detected; does not exclude the possibility of exposure to HBV No Panel InformationOrdered By: Cesar Smith on 06-30-2025 HIV (1&2) Antibody Non-Reactive Nonreactive [facility] Comment on above: Non-ReactiveReactive Repeatedly reactive samples must be confirmed according to CDC recommended confirmatory algorithms. The subresults for either HIVAG or AHIV can be used as an aid in the selection of the confirmation algorithm for reactive samples.Send out specimens with Reactive results to [facility] for confirmation.Order the HIV antibody detection and differentiation: #[id number] Potassium measurement (mass/ volume)Ordered By: Carson Hobbs on 06-30-2025 Potassium (Unsp spec) [Mass/Vol] 4.0 mmol/L 3.3-5.1 [facility] Serum creatinine measurement (mass/volume)Ordered By: Carson Hobbs on 06-30-2025 Creatinine [Mass/Vol] 0.75 mg/dL 0.70-1.20 [facility] Serum glucose measurement (m ass/volume)Ordered By: Carson Hobbs on 06-30-2025 Glucose [Mass/Vol] 121 mg/dL High 70-99 [facility] Serum hepatitis B virus surf nuno antibody detectionOrdered By: Cesar Smith on 06-30-2025 HBV surface Ab Ql (S) Non-Reactive [facility] Comment on above: <8.5 mIU/mL: Non-Alburtis ctive8.5<= x <11.5 mIU/mL: Indeterminate>=11.5 mIU/mL: Reactive Non Reactive: Inconsistent with immunity less than <10 mIU/mL Reactive: Consistent with immunity greater than or equal to 10 mIU/mL Serum or plasma calcium shamir urement (mass/volume)Ordered By: Carson Hobbs on 06-30-2025 Calcium [Mass/Vol] 9.6 mg/dL 7.6-11.0 [facility] Serum or plasma urea nitroge n measurement (mass/volume)Ordered By: Carson Hobbs on 06-30-2025 Urea nitrogen [Mass/Vol] 11 mg/dL 4-19 [facility] Sodium levelOrdered By: Júnior Hobbs on 06-30-2025 Sodium [Moles/Vol] 139 mmol/L 133-145 [facility] Cardiology Visit Reporton Cardiology Visit Report [facility] [address] [place] [address] OFFICE VISIT Date of Service: 06/27/25 MR#: [id number] Acct: [id number] Name: ALEXANDRA BELLA Rep #: [id number] 1 : 1955 Provider: Dr. Carson Hobbs MD Age/Sex: 69/F Location: [facility] Status: Signed HPI HPI History of Present Illness Details: This is 69-year-old female who presents for a cardiovascular outpatient follow-up. 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 Normal [facility] ANES POSTPROC EVALon 025 ANES POSTPROC EVAL HNO ID: [id number] Author: ARIEL MOREL MD Service: Anesthesiology Author Type: Anesthesiologist Type: Anesthesia Postprocedure Evaluation Filed: 05/21/2025 14:40 Note Text: POST ANESTHESIA EVALUATION NOTE : 1955 Procedure Summary Date: 05/21/25 Room / Location: [facility] Endoscopy - ENDO Anesthesia Start: 1211 Anesthesia [...] May 21, 2025 TIME: 2:40 PM CSN: [id number] Normal [facility] ANES PRE-OPon 05-21-2025 ANES PRE-OP HNO ID: [id number] Author: ARIEL MOREL MD Service: Anesthesiology Author Type: Anesthesiologist Type: Anesthesia Preprocedure Evaluation Filed: 05/21/2025 11:26 Note Text: ANESTHESIOLOGY DAY OF SURGERY NOTE : 1955 Procedure Information Date/Time: 05/21/25 1230 Scheduled providers: Marlon Cesar MD; Raza Gallegos APRN.GLOVE MAKER; Ariel Morel MD Procedure: COLONOSCOPY DIAGNOSTIC Location: [facility] Endoscopy - ENDO Estimated body mass index is 48.11 kg/m? as calculated from the following: Height as of 04/23/25: 160 cm (5' 3). Weight as of 04/23/25: 123.2 kg (271 lb 9.7 oz). Most recent hematocrit and potassium results: Hematocrit 39.6 04/23/2025 Potassium 4.2 04/23/2025 Relevant Problems ANESTHESIA (+) MARILIA on CPAP (+) Post-operative nausea and vomiting CARDIO (+) Atrial fibrillation (HCC) (+) 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 (+) Essential hypertension (+) Phlebitis and thrombophlebitis of other deep vessels of lower extremities ENDO (+) Postoperative hypothyroidism (+) Type 2 diabetes mellitus with diabetic polyneuropathy, without long-term current use of insulin (HCC) GI (+) Gastroesophageal reflux disease without esophagitis -RENAL (+) Nonalcoholic fatty liver disease without nonalcoholic steatohepatitis (LLAMAS) NEURO-PSYCH (+) Headaches PULMONARY (+) Dyspnea (+) AMRILIA on CPAP Other (+) Rheumatoid arthritis (HCC) [...] Take 1 tablet by mouth once daily. [employer] ULTRA TEST test strip Use as directed [...] flecainide (TAMB (more content not included)... Normal [facility] CNPNon 05-21-2025 CNPN Telephone ([facility]) -------- ALEXANDRA BELLA ([id number]) 1955 F Date Time Provider Department 05/21/25 MARLON CESAR [facility] During your visit today, we recorded [...] Fully Assessed Reason for Visit: Care Coordination [2079] Cmt: Follow up Order(s):cholestyramine- sucrose (QUESTRAN) 4 [...] [R22.2] 1 (more content not included)... Normal [facility] Colonoscopyon 05-21-2025 Colonoscopy [facility] Gastrointestinal Endoscopy Patient Name: Alexandra Bella Procedure Date: 05/21/2025 12:01 PM Date of : 1955 Admit Type: Outpatient Age: 69 Room: [place] [address] Gender: Female Note Status: Finalized Attending MD: Marlon Cesar MD, [id number] Procedure: Colonoscopy Indications: Screening for colorectal malignant [...] screening purposes. Procedure Code(s): --- Professional --- 58763, Colonoscopy, flexible; diagnostic, including collection of specimen(s) by brushing or washing, when performed (separate procedure) CPT copyright 2020 [employer]. All rights reserved. The codes documented in this report are preliminary and upon program counselor review may be revised to meet current compliance requirements. Attending Participation: I personally performed the entire procedure. Scope In: 12:18:56 PM Scope Out: 12:23:53 PM MD Marlon Mayorga MD 05/21/2025 12:28:57 PM This report has been signed electronically by Marlon Cesar MD Number of Addenda: 0 Note Initiated On: 05/21/2025 12:01 PM Estimated Blood Loss: Estimated blood loss: none. Normal [facility] Flexible sigmoidoscopy study on 05-21-2025 [facility] Gastrointestinal Endoscopy Patient Name: Alexandra Bella Procedure Date: 05/21/2025 12:01 PM Date of : 1955 Admit Type: Outpatient Age: 69 Room: [place] [address] Gender: Female Note Status: Finalized Attending MD: Marlon Cesar MD, [id number] Procedure: Colonoscopy Indications: Screening for colorectal malignant [...] provided to (more content not included)... PROVATION [facility] Radiology Study observation (narrative) [facility] GLUCOSE, BLOOD (POC)on 05-21 Glucose [Mass/Vol] 128 mg/dL Abnormal 74 - 99 mg/dL [facility] Comment on above: Location:[facility], [address], [place], [address] The Accu-Chek Inform II glucose meter has [...] Interpretation and review of laboratory results [facility] Glucose [Mass/Vol] 136 mg/dL Abnormal 74 - 99 mg/dL [facility] Comment on above: Location:[facility] [place], [address], [place], [address] The Accu-Chek Inform II glucose meter has [...] Interpretation and review of laboratory results [facility] SERVANDONon 05-20-2025 SERVANDON Telephone ([facility]) -------- ALEXANDRA BELLA ([id number]) 1955 F Date Time Provider Department 05/20/25 [...] as prescribed. She will be taking in food in the liquid form so she will [...] She was instructed that she can resume normal life She would like to go back on [...] resent the script. Thank you Eliceo Ambriz APRN.CNP 05/23/2025 2:25 PM Signed Addended by: ELICEO AMBRIZ on: 05/23/2025 02:25 PM Modules accepted: Orders Marissa Tim RN 05/28/2025 3:26 PM Signed [employer] message sent to the patient. Keep Open Until message is read. Marissa Tim RN 05/29/2025 9:42 AM Signed Patient read [employer] message on 05/28/25 at 1530. Closed Allergies [...] polyneuropathy, without long-term current use of insulin ([facility]) [E11.42] Order(s):tirzepatide (MOUNJARO) 5 mg/0.5 mL pen [...] enteric contrast (more content not included)... [facility] -------- ALEXANDRA BELLA ([id number]) 1955 F Date Time Provider Department 05/20/25 MARLON CESAR [facility] During your visit today, we recorded the following information about you: Joon Bishop 05/20/2025 9:29 AM Signed Alexandra is calling Marlon Cesar MD today with concern regarding insulin prior to her colonoscopy on 05/21 and surgery on 05/22. Patient has been identified by name and birthdate. Duration of symptoms: N/A Person calling: self Call patient at: on cell [phone] (home) [phone] (cell) Was an appointment scheduled: No Closing statement: Symptom Call: Thank you for calling [facility], your call is very important. A nurse [...] and none on Sundays. - Blood-Glucose Meter ([employer] ULTRA2 METER) monitoring kit Use to test [...] of left (more content not included)... Normal [facility] CBC W Auto Differential pane l (Bld)on 04-23-2025 Basophils (Bld) [#/Vol] 0.03 10*3/uL Normal <0.11 [facility] Comment on above: Order Comment: Speci men Type: BLOOD SPECIMEN Ordering Facility: [facility] Address: [address] [place] [address] Performed By: #### 5 7021-8 #### [facility] CLIA [id number] [address] [place] [address] [place] Basophils/100 WBC (Bld) 0.5 % Normal [facility] Comment on above: Order Comment: Speci men Type: BLOOD SPECIMEN Ordering Facility: [facility] Address: [address] [place] [address] Performed By: #### 5 7021-8 #### [facility] CLIA [id number] [address] [place] [address] [place] Differential cell count method Nom (Bld) Auto Normal [facility] Comment on above: Order Comment: Speci men Type: BLOOD SPECIMEN Ordering Facility: [facility] Address: [address] [place] [address] Performed By: #### 5 7021-8 #### [facility] CLIA [id number] [address] [place] [address] [place] Eosinophils (Bld) [#/Vol] 0.17 10*3/uL Normal <0.46 [facility] Comment on above: Order Comment: Speci men Type: BLOOD SPECIMEN Ordering Facility: [facility] Address: [address] [place] [address] Performed By: #### 5 7021-8 #### [facility] CLIA [id number] [address] [place] [address] [place] Eosinophils/100 WBC (Bld) 2.9 % Normal [facility] Comment on above: Order Comment: Speci men Type: BLOOD SPECIMEN Ordering Facility: [facility] Address: [address] [place] [address] Performed By: #### 5 7021-8 #### [facility] CLIA [id number] [address] [place] [address] [place] Erythrocyte distribution width (RBC) [Ratio] 13.4 % Normal 11.5-15.0 [facility] Comment on above: Order Comment: Speci men Type: BLOOD SPECIMEN Ordering Facility: [facility] Address: [address] [place] [address] Performed By: #### 5 7021-8 #### [facility] CLIA [id number] [address] [place] [address] [place] Hematocrit (Bld) [Volume fraction] 39.6 % Normal 36.0-46.0 [facility] Comment on above: Order Comment: Speci men Type: BLOOD SPECIMEN Ordering Facility: [facility] Address: [address] [place] [address] Performed By: #### 5 7021-8 #### [facility] CLIA [id number] [address] [place] [address] [place] Hemoglobin (Bld) [Mass/Vol] 13.0 g/dL Normal 11.5-15.5 [facility] Comment on above: Order Comment: Speci men Type: BLOOD SPECIMEN Ordering Facility: [facility] Address: [address] [place] [address] Performed By: #### 5 7021-8 #### [facility] CLIA [id number] [address] [place] [address] [place] Immature granulocytes (Bld) [#/Vol] 10*3/uL Normal <0.10 [facility] Comment on above: Order Comment: Speci men Type: BLOOD SPECIMEN Ordering Facility: [facility] Address: [address] [place] [address] Performed By: #### 5 7021-8 #### [facility] CLIA [id number] [address] [place] Immature granulocytes/100 WBC (Bld) 0.3 % Normal [facility] Comment on above: Order Comment: Speci men Type: BLOOD SPECIMEN Ordering Facility: [facility] Address: [address] [place] [address] Performed By: #### 5 7021-8 #### [facility] CLIA [id number] [address] Lymphocytes (Bld) [#/Vol] 1.88 10*3/uL Normal 1.00-4.00 [facility] Comment on above: Order Comment: Speci men Type: BLOOD SPECIMEN Ordering Facility: [facility] Address: [address] [place] [address] Performed By: #### 5 7021-8 #### [facility] CLIA [id number] [address] Lymphocytes/100 WBC (Bld) 31.8 % Normal [facility] Comment on above: Order Comment: Speci men Type: BLOOD SPECIMEN Ordering Facility: [facility] Address: [address] [place] [address] Performed By: #### 5 7021-8 #### [facility] CLIA [id number] [address] MCH (RBC) [Entitic mass] 29.3 pg Normal 26.0-34.0 [facility] Comment on above: Order Comment: Speci men Type: BLOOD SPECIMEN Ordering Facility: [facility] Address: [address] [place] [address] Performed By: #### 5 7021-8 #### [facility] CLIA [id number] [address] MCHC (RBC) [Mass/Vol] 32.8 g/dL Normal 30.5-36.0 [facility] Comment on above: Order Comment: Speci men Type: BLOOD SPECIMEN Ordering Facility: [facility] Address: [address] [place] [address] Performed By: #### 5 7021-8 #### [facility] CLIA [id number] [address] MCV (RBC) [Entitic vol] 89.2 fL Normal 80.0-100.0 [facility] Comment on above: Order Comment: Speci men Type: BLOOD SPECIMEN Ordering Facility: [facility] Address: [address] [place] [address] Performed By: #### 5 7021-8 #### [facility] CLIA [id number] [address] [place] [address] [place] Monocytes (Bld) [#/Vol] 0.31 10*3/uL Normal <0.87 [facility] Comment on above: Order Comment: Speci men Type: BLOOD SPECIMEN Ordering Facility: [facility] Address: [address] [place] [address] Performed By: #### 5 7021-8 #### [facility] CLIA [id number] [address] [place] [address] [place] Monocytes/100 WBC (Bld) 5.2 % Normal [facility] Comment on above: Order Comment: Speci men Type: BLOOD SPECIMEN Ordering Facility: [facility] Address: [address] [place] [address] Performed By: #### 5 7021-8 #### [facility] CLIA [id number] [address] [place] [address] [place] Neutrophils (Bld) [#/Vol] 3.50 10*3/uL Normal 1.45-7.50 [facility] Comment on above: Order Comment: Speci men Type: BLOOD SPECIMEN Ordering Facility: [facility] Address: [address] [place] [address] Performed By: #### 5 7021-8 #### [facility] CLIA [id number] [address] [place] Neutrophils/100 WBC (Bld) 59.3 % Normal [facility] Comment on above: Order Comment: Speci men Type: BLOOD SPECIMEN Ordering Facility: [facility] Address: [address] [place] [address] Performed By: #### 5 7021-8 #### [facility] CLIA [id number] [address] [place] [address] [place] Nucleated RBC (Bld) [#/Vol] 10*3/uL Normal <0.01 [facility] Comment on above: Order Comment: Speci men Type: BLOOD SPECIMEN Ordering Facility: [facility] Address: [address] [place] [address] Performed By: #### 5 7021-8 #### [facility] CLIA [id number] [address] [place] [address] [place] Nucleated RBC/100 WBC (Bld) [Ratio] 0.0 /100 WBC Normal [facility] Comment on above: Order Comment: Speci men Type: BLOOD SPECIMEN Ordering Facility: [facility] Address: [address] [place] [address] Performed By: #### 5 7021-8 #### [facility] CLIA [id number] [address] [place] [address] [place] Platelet mean volume (Bld) [Entitic vol] 10.8 fL Normal 9.0-12.7 [facility] Comment on above: Order Comment: Speci men Type: BLOOD SPECIMEN Ordering Facility: [facility] Address: [address] [place] [address] Performed By: #### 5 7021-8 #### [facility] CLIA [id number] [address] [place] [address] [place] Platelets (Bld) [#/Vol] 205 10*3/uL Normal 150-400 [facility] Comment on above: Order Comment: Speci men Type: BLOOD SPECIMEN Ordering Facility: [facility] Address: [address] [place] [address] Performed By: #### 5 7021-8 #### [facility] CLIA [id number] [address] [place] [address] [place] RBC (Bld) [#/Vol] 4.44 10*6/uL Normal 3.90-5.20 [facility] Comment on above: Order Comment: Speci men Type: BLOOD SPECIMEN Ordering Facility: [facility] Address: [address] [place] [address] Performed By: #### 5 7021-8 #### [facility] CLIA [id number] [address] [place] [address] [place] WBC (Bld) [#/Vol] 5.91 10*3/uL Normal 3.70-11.00 [facility] Comment on above: Order Comment: Speci men Type: BLOOD SPECIMEN Ordering Facility: [facility] Address: [address] [place] [address] Performed By: #### 5 7021-8 #### [facility] IA [id number] [address] [place] [address] Ignacio 04-23-2025 CNPN Telephone ([facility]) -------- ALEXANDRA BELLA ([id number]) 1955 F Date Time Provider Department 04/23/25 [...] PACC visit she did mention that her photographic restorer at [place] expressed some concerns about uncontrolled GERD based [...] the office. Thanks! Martine Blake PA-C [facility] Office: Rosy Esteban MD 04/24/2025 1:46 [...] and none on (more content not included)... Normal [facility] CT ABD/PEL W IVCONon 025 CT ABD/PEL W IVCON * * *Final Report* * * DATE OF EXAM: Apr 23 2025 3:18PM [facility] 0530 - CT ABD/PEL W IVCON / [...] diverticulitis. No focal fluid collection or perforation. Sandstone Inspector Repairer: [facility] Transcribe Date/Time: Apr 28 2025 3:29P Dictated by : JOSE RAUL LOBO MD This examination was interpreted and the report reviewed and electronically signed by: JOSE RAUL LOBO MD on Apr 28 2025 3:38PM EST [id number] Normal [facility] Comprehensive metabolic 2000 panelon 04-23-2025 Albumin [Mass/Vol] 4.1 g/dL Normal 3.9-4.9 [facility] Comment on above: Order Comment: Speci men Type: BLOOD SPECIMEN Ordering Facility: [facility] Address: [address] [place] [address] Performed By: #### 1 9123-9, 54739-3 #### [facility] CLIA [id number] [address] [place] [address] [place] ALP [Catalytic activity/Vol] 95 U/L Normal 34-123 [facility] Comment on above: Order Comment: Speci men Type: BLOOD SPECIMEN Ordering Facility: [facility] Address: [address] [place] [address] Performed By: #### 1 23-9, 74159-3 #### [facility] CLIA [id number] [address] [place] [address] [place] ALT [Catalytic activity/Vol] 52 U/L High 7-38 [facility] Comment on above: Order Comment: Speci men Type: BLOOD SPECIMEN Ordering Facility: [facility] Address: [address] [place] [address] Performed By: #### 1 239, 28466-8 #### [facility] CLIA [id number] [address] [place] [address] [place] Anion gap [Moles/Vol] 9 mmol/L Normal 8-15 [facility] Comment on above: Order Comment: Speci men Type: BLOOD SPECIMEN Ordering Facility: [facility] Address: [address] [place] [address] Performed By: #### 1 239, 58950-7 #### [facility] CLIA [id number] [address] [place] [address] [place] AST [Catalytic activity/Vol] 48 U/L High 13-35 [facility] Comment on above: Order Comment: Speci men Type: BLOOD SPECIMEN Ordering Facility: [facility] Address: [address] [place] [address] Performed By: #### 1 23-9, 45394-2 #### [facility] CLIA [id number] [address] [place] [address] [place] Bilirubin [Mass/Vol] 0.5 mg/dL Normal 0.2-1.3 [facility] Comment on above: Order Comment: Speci men Type: BLOOD SPECIMEN Ordering Facility: [facility] Address: [address] [place] [address] Performed By: #### 1 9123-9, 40874-8 #### [facility] CLIA [id number] [address] [place] [address] [place] Calcium [Mass/Vol] 9.8 mg/dL Normal 8.5-10.2 [facility] Comment on above: Order Comment: Speci men Type: BLOOD SPECIMEN Ordering Facility: [facility] Address: [address] [place] [address] Performed By: #### 1 9123-9, 84653-8 #### [facility] CLIA [id number] [address] [place] [address] [place] Chloride [Moles/Vol] 107 mmol/L Normal 98-107 [facility] Comment on above: Order Comment: Speci men Type: BLOOD SPECIMEN Ordering Facility: [facility] Address: [address] [place] [address] Performed By: #### 1 9123-9, 22892-5 #### [facility] CLIA [id number] [address] [place] [address] [place] CO2 [Moles/Vol] 25 mmol/L Normal 22-30 [facility] Comment on above: Order Comment: Speci men Type: BLOOD SPECIMEN Ordering Facility: [facility] Address: [address] [place] [address] Performed By: #### 1 9123-9, 97097-4 #### [facility] CLIA [id number] [address] [place] [address] [place] Creatinine [Mass/Vol] 0.89 mg/dL Normal 0.58-0.96 [facility] Comment on above: Order Comment: Speci men Type: BLOOD SPECIMEN Ordering Facility: [facility] Address: [address] [place] [address] Performed By: #### 1 9123-9, 76457-4 #### [facility] CLIA [id number] [address] [place] [address] [place] eGFRcr SerPlBld CKD-EPI 2020 70 mL/min/1.73m??? Normal >=60 [facility] Comment on above: Order Comment: Speci men Type: BLOOD SPECIMEN Ordering Facility: [facility] Address: [address] [place] [address] Result Comment: Hortensia mated Glomerular Filtration Rate [...] actual GFR. Performed By: #### 1 9123-9, 47683-5 #### [facility] CLIA [id number] [address] [place] [address] [place] Glucose [Mass/Vol] 185 mg/dL High 74-99 [facility] Comment on above: Order Comment: Harry lunsford Type: BLOOD SPECIMEN Ordering Facility: [facility] Address: [address] [place] [address] Result Comment: The [place] Diabetes Association (ADA) provides guidance for cutoff [...] Standards of Medical Care in Diabetes 2016, [place] Diabetes Association. Diabetes Care. 2016.39(Suppl 1). Performed By: #### 1 9123-9, 73909-3 #### [facility] CLIA [id number] [address] [place] [address] [place] Potassium [Moles/Vol] 4.2 mmol/L Normal 3.7-5.1 [facility] Comment on above: Order Comment: Harry lunsford Type: BLOOD SPECIMEN Ordering Facility: [facility] Address: [address] [place] [address] Performed By: #### 1 9123-9, 82813-0 #### [facility] CLIA [id number] [address] [place] [address] [place] Protein [Mass/Vol] 7.6 g/dL Normal 6.3-8.0 [facility] Comment on above: Order Comment: Harry lunsford Type: BLOOD SPECIMEN Ordering Facility: [facility] Address: [address] [place] [place] [id number] Performed By: #### 1 9123-9, 22565-0 #### [facility] CLIA [id number] [address] Sodium [Moles/Vol] 141 mmol/L Normal 136-144 [facility] Comment on above: Order Comment: Speci men Type: BLOOD SPECIMEN Ordering Facility: [facility] Address: [address] [place] [address] Performed By: #### 1 9123-9, 79844-8 #### [facility] CLIA [id number] [address] [place] [address] [place] Urea nitrogen [Mass/Vol] 15 mg/dL Normal 7-21 [facility] Comment on above: Order Comment: Speci men Type: BLOOD SPECIMEN Ordering Facility: [facility] Address: [address] [place] [address] Performed By: #### 1 9123-9, 47767-9 #### [facility] CLIA [id number] [address] [place] [address] [place] HISTORY PHYSICALon HISTORY PHYSICAL HNO ID: [id number] Author: MARTINE BLAKE PA-C Service: ? Author Type: Physician Director Of Workforce Development Type: H&P Filed: 04/24/2025 13:59 Note Text: [facility] HISTORY AND PHYSICAL EXAMINATION SERVICE DATE: 04/23/2025 SERVICE TIME: 9:39 AM Recording using iiyuma software for draft documentation of the visit was discussed with the patient/authorized client care representative; all questions welcomed and answered. Patient/authorized client care representative agreed to proceed. PRIMARY CARE PHYSICIAN: Leonora Davalos APRN.SPOOL MAKER Assessment Patient has the following medical conditions [...] 03/28/2025 130/72 4. 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 - Will obtain records from Dr. O'Forey. 7. 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 -Managed by cardiology Dr. Hobbs. - No recent palpitations or irregular rhythms. - Discussed prior adverse reaction to antiemetics with flecainide; will review antiemetic options for perioperative use. 9. MARILIA on CPAP (G47.33) -Compliant with bipap, advised to bring DOS. -Follows with pulmonology at [place]. 10. Post-operative nausea and vomiting (R11.2) -Pt [...] vein thrombosis) (Z86.718) - History of DVT; Rena Lara filter in place. 15. Gastroesophageal reflux disease [...] 07/06/2019 0.176 uU/ (more content not included)... [facility] TYPE + SCREENon 04-23-2025 ABO O [facility] Comment on above: Order Comment: Harry lunsford Type: BLOOD SPECIMEN Ordering Facility: [facility] Address: [address] [place] [address] Performed By: #### 1 9123-9, 82166-7 #### [facility] CLIA [id number] [address] [place] [address] [place] Rh Nom (Bld) Positive [facility] Comment on above: Order Comment: Harry lunsford Type: BLOOD SPECIMEN Ordering Facility: [facility] Address: [address] [place] [address] Performed By: #### 1 9123-9, 62712-8 #### [facility] CLIA [id number] [address] OF [place] TYPE AND SCREEN EXPIRATION 04/26/2025 23:59 [facility] Comment on above: Order Comment: Harry lunsford Type: BLOOD SPECIMEN Ordering Facility: [facility] Address: [address] [place] [address] Performed By: #### 1 9123-9, 22733-9 #### [facility] CLIA [id number] [address] [place] [address] [place] Pulmonary Visit Reporton Pulmonary Visit Report [facility] Pulmonary Medicine of [address] [place] [address] OFFICE VISIT Date of Service: 04/22/25 MR#: [id number] Acct: [id number] Name: ALEXANDRA BELLA Chi Rep #: [id number] 0 : 1955 Provider: Ada Wheeler NP Age/Sex: 69/F Location: [facility].PMW Status: Signed Assessment and Plan Assessment and [...] room air. She was recently seen in [place] for diverticulitis. She is planning for an [...] December 03, 2024 (more content not included)... [facility] 102on 04-15-2025 102 HNO ID: [id number] Author: BRITTNI PERALES HDA Service: ? Author Type: ? Type: 102 Filed: 04/15/2025 09:08 Note Text: Code Status: Full Code Normal [facility] Amylase SerPl-cCncon 025 Amylase [Catalytic activity/Vol] 49 U/L Normal 30-104 [facility] Comment on above: Order Comment: Speci men Type: BLOOD SPECIMEN Ordering Facility: [facility] Address: [address] [place] [address] Performed By: #### 2 4323-8, 3040-3, 1798-8, 1987- #### [facility] CLIA [id number] [address] [place] [address] [place] CBC W Auto Differential pane l (Bld)on 04-11-2025 Basophils (Bld) [#/Vol] 0.03 10*3/uL Normal <0.11 [facility] Comment on above: Order Comment: Speci men Type: BLOOD SPECIMEN Ordering Facility: [facility] Address: [address] [place] [address] Performed By: #### 5 7021-8 #### [facility] CLIA [id number] [address] [place] [address] [place] Basophils/100 WBC (Bld) 0.5 % Normal A [facility] Comment on above: Order Comment: Speci men Type: BLOOD SPECIMEN Ordering Facility: [facility] Address: [address] [place] [address] Performed By: #### 5 7021-8 #### [facility] CLIA [id number] [address] [place] [id number] [place] Differential cell count method Nom (Bld) Auto Normal [facility] Comment on above: Order Comment: Speci men Type: BLOOD SPECIMEN Ordering Facility: [facility] Address: [address] [place] [address] Performed By: #### 5 7021-8 #### [facility] CLIA [id number] [address] [place] [address] [place] Eosinophils (Bld) [#/Vol] 0.21 10*3/uL Normal <0.46 [facility] Comment on above: Order Comment: Speci men Type: BLOOD SPECIMEN Ordering Facility: [facility] Address: [address] [place] [address] Performed By: #### 5 7021-8 #### [facility] CLIA [id number] [address] [place] [address] [place] Eosinophils/100 WBC (Bld) 3.8 % Normal [facility] Comment on above: Order Comment: Speci men Type: BLOOD SPECIMEN Ordering Facility: [facility] Address: [address] [place] [address] Performed By: #### 5 7021-8 #### [facility] CLIA [id number] [address] [place] [address] [place] Erythrocyte distribution width (RBC) [Ratio] 13.4 % Normal 11.5-15.0 [facility] Comment on above: Order Comment: Speci men Type: BLOOD SPECIMEN Ordering Facility: [facility] Address: [address] [place] [address] Performed By: #### 5 7021-8 #### [facility] CLIA [id number] [address] [place] [address] [place] Hematocrit (Bld) [Volume fraction] 42.5 % Normal 36.0-46.0 [facility] Comment on above: Order Comment: Speci men Type: BLOOD SPECIMEN Ordering Facility: [facility] Address: [address] [place] [address] Performed By: #### 5 7021-8 #### [facility] CLIA [id number] [address] [place] [address] [place] Hemoglobin (Bld) [Mass/Vol] 13.8 g/dL Normal 11.5-15.5 [facility] Comment on above: Order Comment: Speci men Type: BLOOD SPECIMEN Ordering Facility: [facility] Address: [address] [place] [address] Performed By: #### 5 7021-8 #### [facility] CLIA [id number] [address] [place] [address] [place] Immature granulocytes (Bld) [#/Vol] 10*3/uL Normal <0.10 [facility] Comment on above: Order Comment: Speci men Type: BLOOD SPECIMEN Ordering Facility: [facility] Address: [address] [place] [address] Performed By: #### 5 7021-8 #### [facility] CLIA [id number] [address] [place] [address] [place] Immature granulocytes/100 WBC (Bld) 0.2 % Normal [facility] Comment on above: Order Comment: Speci men Type: BLOOD SPECIMEN Ordering Facility: [facility] Address: [address] [place] [address] Performed By: #### 5 7021-8 #### [facility] CLIA [id number] [address] [place], [place] [address] [place] [address] [place] Lymphocytes (Bld) [#/Vol] 1.63 10*3/uL Normal 1.00-4.00 [facility] Comment on above: Order Comment: Speci men Type: BLOOD SPECIMEN Ordering Facility: [facility] Address: [address] [place] [address] Performed By: #### 5 7021-8 #### [facility] CLIA [id number] [address] STATES [place] Lymphocytes/100 WBC (Bld) 29.8 % Normal [facility] Comment on above: Order Comment: Speci men Type: BLOOD SPECIMEN Ordering Facility: [facility] Address: [address] [place] [address] Performed By: #### 5 7021-8 #### [facility] CLIA [id number] [address] [place] [address] [place] MCH (RBC) [Entitic mass] 29.6 pg Normal 26.0-34.0 [facility] Comment on above: Order Comment: Speci men Type: BLOOD SPECIMEN Ordering Facility: [facility] Address: [address] [place] [address] Performed By: #### 5 7021-8 #### [facility] CLIA [id number] [address] [place] [address] [place] MCHC (RBC) [Mass/Vol] 32.5 g/dL Normal 30.5-36.0 [facility] Comment on above: Order Comment: Speci men Type: BLOOD SPECIMEN Ordering Facility: [facility] Address: [address] [place] [address] Performed By: #### 5 7021-8 #### [facility] CLIA [id number] [address] [place] [address] [place] MCV (RBC) [Entitic vol] 91.0 fL Normal 80.0-100.0 A [facility] Comment on above: Order Comment: Speci men Type: BLOOD SPECIMEN Ordering Facility: [facility] Address: [address] [place] [address] Performed By: #### 5 7021-8 #### [facility] CLIA [id number] [address] [place] [id number] [place] [address] OF [place] Monocytes (Bld) [#/Vol] 0.49 10*3/uL Normal <0.87 [facility] Comment on above: Order Comment: Speci men Type: BLOOD SPECIMEN Ordering Facility: [facility] Address: [address] [place] [address] Performed By: #### 5 7021-8 #### [facility] CLIA [id number] [address] [place] [address] [facility] OF [place] Monocytes/100 WBC (Bld) 9.0 % Normal A [facility] Comment on above: Order Comment: Speci men Type: BLOOD SPECIMEN Ordering Facility: [facility] Address: [address] [place] [address] Performed By: #### 5 7021-8 #### [facility] CLIA [id number] [address] [place] [address] [place] Neutrophils (Bld) [#/Vol] 3.10 10*3/uL Normal 1.45-7.50 [facility] Comment on above: Order Comment: Speci men Type: BLOOD SPECIMEN Ordering Facility: [facility] Address: [facility] [place] [address] Performed By: #### 5 7021-8 #### [facility] CLIA [id number] [address] [place] [address] [place] Neutrophils/100 WBC (Bld) 56.7 % Normal [facility] Comment on above: Order Comment: Speci men Type: BLOOD SPECIMEN Ordering Facility: [facility] Address: [address] [place] [address] Performed By: #### 5 7021-8 #### [facility] CLIA [id number] [address] [place] [address] [place] Nucleated RBC (Bld) [#/Vol] Normal [facility] Comment on above: Order Comment: Speci men Type: BLOOD SPECIMEN Ordering Facility: [facility] Address: [address] [place] [address] Performed By: #### 5 7021-8 #### [facility] CLIA [id number] [address] [place] [address] [place] Nucleated RBC/100 WBC (Bld) [Ratio] Normal [facility] Comment on above: Order Comment: Speci men Type: BLOOD SPECIMEN Ordering Facility: [facility] Address: [address] [place] [address] Performed By: #### 5 7021-8 #### [facility] CLIA [id number] [address] [place] [address] [place] Platelet mean volume (Bld) [Entitic vol] 11.9 fL Normal 9.0-12.7 [facility] Comment on above: Order Comment: Speci men Type: BLOOD SPECIMEN Ordering Facility: [facility] Address: [address] [place] [address] Performed By: #### 5 7021-8 #### [facility] CLIA [id number] [address] [place] [address] [place] Platelets (Bld) [#/Vol] 129 10*3/uL Low 150-400 [facility] Comment on above: Order Comment: Harry men Type: BLOOD SPECIMEN Ordering Facility: [facility] Address: [address] [place] [address] Performed By: #### 5 7021-8 #### [facility] CLIA [id number] [address] [place] [address] [facility] RBC (Bld) [#/Vol] 4.67 10*6/uL Normal 3.90-5.20 [facility] Comment on above: Order Comment: Vickii men Type: BLOOD SPECIMEN Ordering Facility: [facility] Address: [address] [place] [address] Performed By: #### 5 7021-8 #### [facility] CLIA [id number] [address] [place] [id number] [facility] WBC (Bld) [#/Vol] 5.47 10*3/uL Normal 3.70-11.00 [facility] Comment on above: Order Comment: Speci men Type: BLOOD SPECIMEN Ordering Facility: [facility] Address: [address] [place] [address] Performed By: #### 5 7021-8 #### [facility] CLIA [id number] [address] [place], [place] [id number] [facility] CNPGina 04-11-2025 CNPN Telephone ([facility]) -------- ALEXANDRA BELLA ([id number]) 1955 F Date Time Provider Department 04/11/25 MARLON CESAR [facility] During your visit today, we recorded [...] call about anticoagulation pending reply from her mis director. Patient acknowledges and understands. Message sent to [...] Date Reviewed: 04/07/2025 Reviewed by: Renee Echeverria APRN.SPOOL MAKER - Fully Assessed Reason for Visit: Schedule [...] and none on Sundays. - Blood-Glucose Meter ([employer] ULTRA2 METER) monitoring kit Use to test [...] disease with (more content not included)... Normal [facility] CRP SerPl-ncon 04-11-2025 CRP [Mass/Vol] 0.4 mg/dL Normal <0.9 [facility] Comment on above: Order Comment: Harry lunsford Type: BLOOD SPECIMEN Ordering Facility: [facility] Address: [address] [place] [address] Performed By: #### 2 4323-8, 3039-11, 1798-04, 1988-01 #### [facility] CLIA [id number] [address] [place] [address] OF [facility] Comprehensive metabolic 2000 panelon 04-11-2025 Albumin [Mass/Vol] 4.0 g/dL Normal 3.9-4.9 [facility] Comment on above: Order Comment: Harry lunsford Type: BLOOD SPECIMEN Ordering Facility: [facility] Address: [address] [place] [address] Performed By: #### 2 4323-8, 3039-11, 1798-04, 1988-01 #### [facility] CLIA [id number] [address] OF [place] ALP [Catalytic activity/Vol] 118 U/L Normal 34-123 [facility] Comment on above: Order Comment: Harry lunsford Type: BLOOD SPECIMEN Ordering Facility: [facility] Address: [address] [place] [address] Performed By: #### 2 4323-8, 3039-3, 1798-04, 1988-01 #### [facility] CLIA [id number] [address] [place] [address] [place] ALT With P-5'-P [Catalytic activity/Vol] 50 U/L High 7-38 [facility] Comment on above: Order Comment: Speci men Type: BLOOD SPECIMEN Ordering Facility: [facility] Address: [address] [place] [address] Performed By: #### 2 4323-8, 3039-3, 1798-04, 1988-01 #### [facility] CLIA [id number] [address] [place] [address] [place] Anion gap [Moles/Vol] 16 mmol/L High 8-15 [facility] Comment on above: Order Comment: Speci men Type: BLOOD SPECIMEN Ordering Facility: [facility] Address: [address] [place] [address] Performed By: #### 2 4323-8, 3, 1798-04, 1988-01 #### [facility] CLIA [id number] [address] [place] [address] [place] AST With P-5'-P [Catalytic activity/Vol] 45 U/L High 13-35 [facility] Comment on above: Order Comment: Speci men Type: BLOOD SPECIMEN Ordering Facility: [facility] Address: [address] [place] [address] Performed By: #### 2 4323-8, 3039-3, 1798-04, 1988-01 #### [facility] CLIA [id number] [address] [place] [address] [place] Bilirubin [Mass/Vol] 0.5 mg/dL Normal 0.2-1.3 [facility] Comment on above: Order Comment: Speci men Type: BLOOD SPECIMEN Ordering Facility: [facility] Address: [address] [place] [address] Performed By: #### 2 4323-8, 0-3, 1798-04, 1988-01 #### [facility] CLIA [id number] [address] [place] [address] [place] Calcium [Mass/Vol] 10.4 mg/dL High 8.5-10.2 [facility] Comment on above: Order Comment: Speci men Type: BLOOD SPECIMEN Ordering Facility: [facility] Address: [address] [place] [address] Performed By: #### 2 432-8, 3039-3, 1798-04, 1988-01 #### [facility] CLIA [id number] [address] [place] [address] [place] Chloride [Moles/Vol] 100 mmol/L Normal 98-107 [facility] Comment on above: Order Comment: Speci men Type: BLOOD SPECIMEN Ordering Facility: [facility] Address: [address] [place] [address] Performed By: #### 2 432-8, 3, 1798-04, 1988-01 #### [facility] CLIA [id number] [address] [place] [address] [place] CO2 [Moles/Vol] 20 mmol/L Low 22-30 [facility] Comment on above: Order Comment: Speci men Type: BLOOD SPECIMEN Ordering Facility: [facility] Address: [address] [place] [address] Performed By: #### 2 4323-8, 3, 1798-04, 1988-01 #### [facility] CLIA [id number] [address] [place] [address] [place] Creatinine [Mass/Vol] 0.80 mg/dL Normal 0.58-0.96 [facility] Comment on above: Order Comment: Speci men Type: BLOOD SPECIMEN Ordering Facility: [facility] Address: [address] [place] [address] Performed By: #### 2 4323-8, 3039-3, 1798-1988-01 #### [facility] CLIA [id number] [address] [place] [address] [place] eGFRcr SerPlBld CKD-EPI 2020 80 mL/min/1.73m??? Normal >=60 [facility] Comment on above: Order Comment: Harry lunsford Type: BLOOD SPECIMEN Ordering Facility: [facility] Address: [address] [place] [address] Result Comment: Hortensia mated Glomerular Filtration Rate [...] actual GFR. Performed By: #### 2 4323-8, 3040-3, 1988-01 #### [facility] CLIA [id number] [address] [place], [place] [address] [place] Glucose [Mass/Vol] 181 mg/dL High 74-99 [facility] Comment on above: Order Comment: Harry lunsford Type: BLOOD SPECIMEN Ordering Facility: [facility] Address: [address] [place] [address] Result Comment: The [place] Diabetes [employer] (ADA) provides guidance for cutoff [...] Standards of Medical Care in Diabetes 2016, [place] [employer]. Diabetes Care. 2016.39(Suppl 1). Performed By: #### 2 4323-8, 3040-3, 1798-04, 1988-01 #### [facility] CLIA [id number] [address] [place] [address] [place] Potassium [Moles/Vol] 4.0 mmol/L Normal 3.7-5.1 [facility] Comment on above: Order Comment: Speci men Type: BLOOD SPECIMEN Ordering Facility: [facility] Address: [address] [place] [address] Performed By: #### 2 4323-8, 3039-3, 1798-04, 1988-01 #### [facility] CLIA [id number] [address] [place] [address] [place] Protein [Mass/Vol] 8.0 g/dL Normal 6.3-8.0 [facility] Comment on above: Order Comment: Speci men Type: BLOOD SPECIMEN Ordering Facility: [facility] Address: [address] [place] [address] Performed By: #### 2 4323-8, 3039-11, 1798-04, 1988-01 #### [facility] CLIA [id number] [address] [place] [address] [place] Sodium [Moles/Vol] 136 mmol/L Normal 136-144 [facility] Comment on above: Order Comment: Speci men Type: BLOOD SPECIMEN Ordering Facility: [facility] Address: [address] [place] [address] Performed By: #### 2 4323-8, 3, 1798-04, 1988-01 #### [facility] CLIA [id number] [address] [place] [address] [place] Urea nitrogen [Mass/Vol] 15 mg/dL Normal 7-21 [facility] Comment on above: Order Comment: Speci men Type: BLOOD SPECIMEN Ordering Facility: [facility] Address: [address] [place] [address] Performed By: #### 2 4323-8, 3039-3, 1798-04, 1988-01 #### [facility] CLIA [id number] [address] [place] [address] [place] Lipase SerPl-cCncon 04-11-20 25 Lipase [Catalytic activity/Vol] 37 U/L Normal 16-61 [facility] Comment on above: Order Comment: Speci men Type: BLOOD SPECIMEN Ordering Facility: [facility] Address: [address] [place] [address] Performed By: #### 2 4323-8, 3040-3, 1798-8, 1987- #### [facility] CLIA [id number] [address] [place] [address] [facility] 04-08-2025 CNPN Telephone ([facility]) -------- ALEXANDRA BELLA ([id number]) 1955 F Date Time Provider Department 04/08/25 RENEE ECHEVERRIA During your visit today, we recorded the following information about you: Renee Echeverria APRN.SERVANDO 04/08/2025 3:04 PM Signed Chasity, I saw this mutual patient in [facility] on 04/07/25 Alexandra Bella 1955 [id number] is scheduled for LAPAROSCOPIC HAND ASSISTED COLECTOMY [...] anticoagulation instructions and pending reply from her Baggage Smasher - Dr. Hobbs. Renee Echeverria APRN.SPOOL MAKER Pre-Anesthesia Meño Manning 04/09/2025 8:49 AM Signed Patient has more request. Please contact them. Pt needs surgery delayed a week per Renee. CB#: [phone] Allergies As of Date: 04/08/2025 Noted Allergy [...] Date Reviewed: 04/07/2025 Reviewed by: Renee Echeverria APRN.SPOOL MAKER - Fully Assessed Reason for Visit: Preparations [...] and none on Sundays. - Blood-Glucose Meter ([employer] ULTRA2 METER) monitoring kit Use to test [...] [I80.299] Right knee (more content not included)... [facility] Telephone (PREANME) -------- ALEXANDRA BELLA ([id number]) 1955 F Date Time Provider Department 04/08/25 [...] Date Reviewed: 04/07/2025 Reviewed by: Renee Echeverria APRN.SPOOL MAKER - Fully Assessed Prescriptions as of 04/08/2025 [...] and none on Sundays. - Blood-Glucose Meter ([employer] ULTRA2 METER) monitoring kit Use to test [...] torso [D17.1] 11/05/2020 Coronary artery disease involving sioux rizzo*11/11/2020 History of DVT (deep vein thrombosis) [Z86.718] 11/26/2020 History of colorectal cancer [Z85.048] 11/26/2020 CHF (congestive heart failure) (HCC) [I50.9] 02/14/2022 Encounter for monitoring flecainide therapy [Z5*11/02/2021 [facility] current use of anticoagulant [Z79.01] 11/02/2021 Nonalcoholic fatty liver disease without nonalc*11/02/2021 Pure hypercholesterolemia [E78.00] 02/14/2022 Type 2 diabetes mellitus with diabetic polyneur*11/28/2023 Obesity, unspecified [E66.9] 01/17/2025 01/17/2025 Acute diverticulitis [K57.92] 03/17/2025 Obesity, Class III, BMI >= 40 [E66.813] 03/18/2025 Sepsis (HCC) [A41.9] 03/19/2025 Hx of diverticulitis of colon [Z87.19] 03/19/2025 Chest pressure [R07.89] 03/19/2025 He (more content not included)... Normal [facility] Bacteria Ur Culton Bacteria identified Cx Nom (U) ORGANISM ID: 1 10,000 -<50,000 CFU/ml Mixed microbiota No further workup. Mixed microbiota can be due to???urine???contaminati on with skin bacteria at time of collection or presence of a long-term urinary catheter. If a new culture is needed, please consider re-education of the patient on proper midstream collection technique or straight catheterization for???urine???collection . [facility] Comment on above: Performed By: #### 6 30-4 ####[facility] [id number] [address] CNCOon 04-07-2025 CNCO Letter Text [facility] CNPNon 04-07-2025 CNPN Telephone (ENDMED) -------- ALEXANDRA BELLA ([id number]) 1955 F Date Time Provider Department 04/07/25 [...] glucose readings sent in? Etc. Eliceo Ambriz, SHARLA.SPOOL MAKER 04/08/2025 9:28 AM Signed [place] back [...] Neema Berman MA 04/08/2025 2:15 PM Signed [employer] message sent with alert if not read. Keep open Eliceo wants glucose readings in 7-10 days. 04/16/25 we should receive readings. If not we will call/message patient. Marissa Tim RN 04/10/2025 11:09 AM Signed Patient read [employer] message on 04/08/25 at 1547. Closed Corrie [...] pills daily (5 mg). Rx sent to [facility] Thank you Eliceo Ambriz APRN.CNP 04/18/2025 [...] Date Reviewed: 04/07/2025 Reviewed by: Renee Echeverria APRN.CNP - Fully Assessed Reason for Visit: Patient Update [1234] Primary Visit Diagnosis:Type 2 diabetes mellitus with diabetic polyneuropathy, without long-term current use of insulin ([facility]) [E11.42] Order(s):ONETOUCH ULTRA TEST test stripUse as directed to check glucose 1 time daily. E11.9, non-insulin dependent.Disp: 100 eachRfl: 3 ONETOUCH ULTRASOFT LANCETSUse as directed to check glucose 1 times daily (more content not included)... Normal [facility] HISTORY PHYSICALon HISTORY PHYSICAL HNO ID: [id number] Author: RENEE ECHEVERRIA APRN.SPOOL MAKER Service: ? Author Type: Nurse Practitioner Type: H&P Filed: 04/07/2025 10:19 Note Text: [facility] HISTORY AND PHYSICAL EXAMINATION SERVICE DATE: 04/07/2025 SERVICE TIME: 10:19 AM PRIMARY CARE PHYSICIAN: Leonora Davalos APRN.SPOOL MAKER Assessment Patient has the following medical conditions [...] 03/28/2025 123/82 4. 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 (I25.10) - Cardiac [...] Remote history - Currently on Eliquis - Inze Filter in place 13. Headaches (R51.9) - [...] Atrial fibrillation, unspecified type (HCC) (I48.91) 22. 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 - Continue flecainide on day of surgery. 23. Obesity, Class III, BMI 40-49.9 (morbid obesity) ([facility]) (E67.880) - Body mass index is 47.64 kg/m?. [...] the t (more content not included)... Normal [facility] Urinalysis complete panel (U )Ordered By: Yaneth Mccoy on 04-07-2025 Bilirubin Ql (U) Negative Negative [facility] Clarity (Unsp spec) Clear Clear [facility] Color (U) Yellow Yellow [facility] Epithelial cells LM.HPF (Urine sed) [#/Area] Moderate /HPF [facility] Glucose Test strip (U) [Mass/Vol] Negative Negative [facility] Hemoglobin Ql (U) Negative Negative [facility] Interpretation and review of laboratory results Abnormal [facility] Ketones Ql (U) Negative Negative [facility] Leukocyte esterase Test strip Ql (U) Negative Negative [facility] Nitrite Ql (U) Negative Negative [facility] pH (U) 6 [pH] 5.0 - 8.0 [facility] Protein (U) [Mass/Vol] Trace Abnormal Negative [facility] RBC LM.HPF (Urine sed) [#/Area] 0-3 /HPF 0-3 /HPF [facility] Specific gravity (U) [Rel density] 1.025 1.006 - 1.029 [facility] Urobilinogen Ql (U) 0.2 EU/dL 0.2-1.0 EU/dL [facility] WBC LM.HPF (Urine sed) [#/Area] 0-5 /HPF 0-5 /HPF [facility] Urinalysis complete panel (U )on 04-07-2025 Bilirubin Ql (U) Negative Normal Negative [facility] Comment on above: Order Comment: Speci men Type: URINE SPECIMENOrdering Facility: [facility] Address: [address] [place] [address] Performed By: #### 2 4356-8 ####[facility] [id number] [address] [place] Clarity (Unsp spec) Clear Normal Clear [facility] Comment on above: Order Comment: Speci men Type: URINE SPECIMENOrdering Facility: [facility] Address: [address] [place] [address] Performed By: #### 2 4356-8 ####[facility]ORYCLIA [id number] [place] [address] [place] Color (U) Yellow Normal Yellow [facility] Comment on above: Order Comment: Speci men Type: URINE SPECIMENOrdering Facility: [facility] Address: [address] [place] [address] Performed By: #### 2 4356-8 ####[facility]ORYCLIA [id number] [place] [address] [place] Epithelial cells LM.HPF (Urine sed) [#/Area] Moderate Normal [facility] Comment on above: Order Comment: Speci men Type: URINE SPECIMENOrdering Facility: [facility] Address: [address] [place] [address] Performed By: #### 2 4356-8 ####[facility]ORYCLIA [id number] [place] [address] [place] Glucose Test strip (U) [Mass/Vol] Negative Normal Negative [facility] Comment on above: Order Comment: Speci men Type: URINE SPECIMENOrdering Facility: [facility] Address: [address] [place] [address] Performed By: #### 2 4356-8 ####[facility]CLIA [id number] [address] [place] Hemoglobin Ql (U) Negative Normal Negative [facility] Comment on above: Order Comment: Speci men Type: URINE SPECIMENOrdering Facility: [facility] Address: [address] [place] [address] Performed By: #### 2 4356-8 ####[facility]ORYCLIA [id number] [place] [address] [facility] [place] Ketones Ql (U) Negative Normal Negative [facility] Comment on above: Order Comment: Speci men Type: URINE SPECIMENOrdering Facility: [facility] Address: [address] [place] [address] Performed By: #### 2 4356-8 ####[facility]ORYCLIA [id number] [address] Leukocyte esterase Test strip Ql (U) Negative Normal Negative [facility] Comment on above: Order Comment: Speci men Type: URINE SPECIMENOrdering Facility: [facility] Address: [address] [place] [address] Performed By: #### 2 4356-8 ####[facility]IA [id number] [address] [place] Nitrite Ql (U) Negative Normal Negative [facility] Comment on above: Order Comment: Speci men Type: URINE SPECIMENOrdering Facility: [facility] Address: [address] [place] [address] Performed By: #### 2 4356-8 ####[facility]CLIA [id number] [address] pH (U) 6.0 [pH] Normal 5.0-8.0 [facility] Comment on above: Order Comment: Speci men Type: URINE SPECIMENOrdering Facility: [facility] Address: [address] [place] [address] Performed By: #### 2 4356-8 ####[facility]ORYCLIA [id number] [place] [address] [place] Protein (U) [Mass/Vol] Trace Abnormal Negative [facility] Comment on above: Order Comment: Speci men Type: URINE SPECIMENOrdering Facility: [facility] Address: [address] [place] [address] Performed By: #### 2 4356-8 ####[facility]ORYCLIA [id number] [address] [address] RBC LM.HPF (Urine sed) [#/Area] 0-3 /HPF Normal 0-3 /HPF [facility] Comment on above: Order Comment: Speci men Type: URINE SPECIMENOrdering Facility: [facility] Address: [address] [place] [address] Performed By: #### 2 4356-8 ####[facility]ORYCLIA [id number] [address] Specific gravity (U) [Rel density] 1.025 Normal 1.005-1.030 [facility] Comment on above: Order Comment: Speci men Type: URINE SPECIMENOrdering Facility: [facility] Address: [address] [place] [address] Performed By: #### 2 4356-8 ####[facility]ORYCLIA [id number] [address] Urobilinogen Ql (U) 0.2 EU/dL Normal 0.2-1.0 EU/dL [facility] Comment on above: Order Comment: Speci men Type: URINE SPECIMENOrdering Facility: [facility] Address: [address] [place] [address] Performed By: #### 2 4356-8 ####[facility]ORYCLIA [id number] [address] WBC LM.HPF (Urine sed) [#/Area] 0-5 /HPF Normal 0-5 /HPF [facility] Comment on above: Order Comment: Speci men Type: URINE SPECIMENOrdering Facility: [facility] Address: [address] [place] [address] Performed By: #### 2 4356-8 ####[facility]ORYCLIA [id number] [address] CNOVon 03-28-2025 CNOV Office Visit ([facility]) -------- ALEXANDRA BELLA ([id number]) 1955 F Date Time Provider Department 03/28/25 10:15 AM MARLON CESAR [facility] During your visit today, we recorded the following information about you: Temperature Pulse Blood pressure Weight 98 degrees 92/minute 123/82 122.9 kg Marlon Cesar MD 04/07/2025 8:28 AM Signed [facility] March 28, 2025 Alexandra Chi Neri This consult was requested by Dr. Rosy Esteban and my final recommendations will be communicated to the requesting health care provider by way of the shared medical record for internal providers or letter via the [employer] for external providers. Recording using [employer] software for draft documentation of the visit was discussed with the patient/authorized client care representative; all questions welcomed and answered. Patient/authorized client care representative agreed to proceed Chief Complaint: diverticulitis History [...] EGD DIAGNOSTIC (more content not included)... Normal [facility] CNPNon 03-26-2025 CNPN Telephone (HCSIND) -------- ALEXANDRA BELLA ([id number]) 1955 F Date Time Provider Department 03/26/25 JANE MARTINEZ HCSADIA During your visit today, we recorded the [...] to her PCP? MD Terrence Sutton Dawn, RN 04/07/2025 9:[address] Esteban, please [...] still in process. Spoke with Diamond at [facility], she transferred to [place] as they read their CTs. Spoke with Nelida, she will send a msg to the [...] Hailey Ocampo RN 04/29/2025 8:33 AM Signed Rosy Esteban MD to Tn Leonora Davalos, SHARLA.SPOOL MAKER Marlon Cesar MD (Selected Message) 04/28/25 5:44 PM Note [...] BLOOD COUNT AND DIFFERENTIAL [SQCBCDIF] Order #: [id number] FUTURE COMPREHENSIVE METABOLIC PANEL [SQCMP] Order #: (more content not included)... Normal [facility] CNPN Telephone (HCSIND) -------- ALEXANDRA BELLA ([id number]) 1955 F Date Time Provider Department 03/26/25 KWASI CORTESIND During your visit today, we recorded the following information about you: Kwasi Cortes, JONI 03/26/2025 4:59 PM Signed [facility] Team: We received an email that this [...] torso [D17.1] 11/05/2020 Coronary artery disease involving sioux rizzo*11/11/2020 History of DVT (deep vein thrombosis) [Z86.718] 11/26/2020 History of colorectal cancer [Z85.048] 11/26/2020 CHF (congestive heart failure) (HCC) [ (more content not included)... Normal [facility] Comprehensive metabolic 2000 panelon 03-26-2025 Albumin [Mass/Vol] 3.5 g/dL Low 3.9-4.9 [facility] Comment on above: Order Comment: Speci men Type: BLOOD SPECIMEN [facility] Address: [address] [place] [address] Performed By: #### 5 7021-8 #### [facility] CLIA [id number] [address] [place] [address] [place] ALP [Catalytic activity/Vol] 88 U/L Normal 34-123 [facility] Comment on above: Order Comment: Speci men Type: BLOOD SPECIMEN [facility] Address: [address] [place] [address] Performed By: #### 5 7021-8 #### [facility] CLIA [id number] [address] [place] [address] [place] ALT With P-5'-P [Catalytic activity/Vol] 54 U/L High 7-38 [facility] Comment on above: Order Comment: Speci men Type: BLOOD SPECIMEN [facility] Address: [address] [place] [address] Performed By: #### 5 7021-8 #### [facility] CLIA [id number] [address] [place] [address] [place] Anion gap [Moles/Vol] 12 mmol/L Normal 8-15 [facility] Comment on above: Order Comment: Speci men Type: BLOOD SPECIMEN [facility] Address: [address] [place] [address] Performed By: #### 5 7021-8 #### [facility] CLIA [id number] [address] [place] AST With P-5'-P [Catalytic activity/Vol] 67 U/L High 13-35 [facility] Comment on above: Order Comment: Speci men Type: BLOOD SPECIMEN [facility] Address: [address] [place] [address] Performed By: #### 5 7021-8 #### [facility] CLIA [id number] [address] [place] [address] [place] Bilirubin [Mass/Vol] 0.3 mg/dL Normal 0.2-1.3 [facility] Comment on above: Order Comment: Speci men Type: BLOOD SPECIMEN [facility] Address: [address] [place] [address] Performed By: #### 5 7021-8 #### [facility] CLIA [id number] [address] [place] [address] [place] Calcium [Mass/Vol] 9.8 mg/dL Normal 8.5-10.2 [facility] Comment on above: Order Comment: Speci men Type: BLOOD SPECIMEN [facility] Address: [address] [place] [address] Performed By: #### 5 7021-8 #### [facility] CLIA [id number] [address] [place] [address] [place] Chloride [Moles/Vol] 105 mmol/L Normal 98-107 [facility] Comment on above: Order Comment: Speci men Type: BLOOD SPECIMEN [facility] Address: [address] [place] [address] Performed By: #### 5 7021-8 #### [facility] CLIA [id number] [address] [place] [address] [place] CO2 [Moles/Vol] 23 mmol/L Normal 22-30 [facility] Comment on above: Order Comment: Speci men Type: BLOOD SPECIMEN [facility] Address: [address] [place] [address] Performed By: #### 5 7021-8 #### [facility] CLIA [id number] [address] [place] [address] [place] Creatinine [Mass/Vol] 0.67 mg/dL Normal 0.58-0.96 [facility] Comment on above: Order Comment: Speci men Type: BLOOD SPECIMEN [facility] Address: [address] [place] [address] Performed By: #### 5 7021-8 #### [facility] CLIA [id number] [address] [place] [address] [place] eGFRcr SerPlBld CKD-EPI 2020 95 mL/min/1.73m??? Normal >=60 [facility] Comment on above: Order Comment: Speci men Type: BLOOD SPECIMEN [facility] Address: [address] [place], [place] [address] Result Comment: Hortensia mated Glomerular Filtration Rate [...] GFR. Performed By: #### 5 7021-8 #### [facility] CLIA [id number] [address] [place] [address] [place] Glucose [Mass/Vol] 131 mg/dL High 74-99 [facility] Comment on above: Order Comment: Harry lunsford Type: BLOOD SPECIMEN [facility] Address: [address] [place] [address] Result Comment: The [place] Diabetes Association (ADA) provides guidance for cutoff [...] Standards of Medical Care in Diabetes 2016, [place] [employer] Association. Diabetes Care. 2016.39(Suppl 1). Performed By: #### 5 7021-8 #### [facility] CLIA [id number] [address] [place] [address] [place] Potassium [Moles/Vol] 4.0 mmol/L Normal 3.7-5.1 [facility] Comment on above: Order Comment: Harry lunsford Type: BLOOD SPECIMEN [facility] Address: [address] [place], [place] [address] Performed By: #### 5 7021-8 #### [facility] CLIA [id number] [address] [place] [address] [place] Protein [Mass/Vol] 7.2 g/dL Normal 6.3-8.0 [facility] Comment on above: Order Comment: Speci men Type: BLOOD SPECIMEN [facility] Address: [address] [place] [address] Performed By: #### 5 7021-8 #### [facility] CLIA [id number] [address] [place] [address] [place] Sodium [Moles/Vol] 140 mmol/L Normal 136-144 [facility] Comment on above: Order Comment: Speci men Type: BLOOD SPECIMEN [facility] Address: [address] [place] [address] Performed By: #### 5 7021-8 #### [facility] CLIA [id number] [address] [place] [address] [place] Urea nitrogen [Mass/Vol] 9 mg/dL Normal 7-21 [facility] Comment on above: Order Comment: Speci men Type: BLOOD SPECIMEN [facility] Address: [address] [place] [address] Performed By: #### 5 7021-8 #### [facility] CLIA [id number] [address] [place] [address] [place] CBC W Auto Differential pane l (Bld)on 03-24-2025 Basophils (Bld) [#/Vol] 0.03 10*3/uL Normal <0.11 [facility] Comment on above: Order Comment: Speci men Type: BLOOD SPECIMEN [facility] Address: [address] [place] [address] Performed By: #### 1 9123-9, 70888-2 #### [facility] CLIA [id number] [address] [place] [address] [place] Basophils/100 WBC (Bld) 0.5 % Normal [facility] Comment on above: Order Comment: Speci men Type: BLOOD SPECIMEN [facility] Address: [address] [place] [address] Performed By: #### 1 9123-05, #### [facility] CLIA [id number] [address] [place] [address] [place] Differential cell count method Nom (Bld) Auto Normal [facility] Comment on above: Order Comment: Speci men Type: BLOOD SPECIMEN [facility] Address: [address] [place] [address] Performed By: #### 1 9123-05, #### [facility] CLIA [id number] [address] [place] [address] [place] Eosinophils (Bld) [#/Vol] 0.20 10*3/uL Normal <0.46 [facility] Comment on above: Order Comment: Speci men Type: BLOOD SPECIMEN [facility] Address: [address] [place] [address] Performed By: #### 1 9123-05, #### [facility] CLIA [id number] [address] [place] [address] [place] Eosinophils/100 WBC (Bld) 3.5 % Normal [facility] Comment on above: Order Comment: Speci men Type: BLOOD SPECIMEN [facility]: [facility] Address: [address] [place] [address] Performed By: #### 1 9123-05, #### [facility] CLIA [id number] [address] [place] [address] [place] Erythrocyte distribution width (RBC) [Ratio] 13.8 % Normal 11.5-15.0 [facility] Comment on above: Order Comment: Speci men Type: BLOOD SPECIMEN [facility]ing [facility]: [facility] Address: [address] [place] [address] Performed By: #### 1 9123-05, #### [facility] CLIA [id number] [address] [place] [address] [place] Hematocrit (Bld) [Volume fraction] 38.5 % Normal 36.0-46.0 [facility] Comment on above: Order Comment: Speci men Type: BLOOD SPECIMEN [facility] Address: [address] [place] [address] Performed By: #### 1 9, 86613-8 #### [facility] CLIA [id number] [address] [place] [address] [place] Hemoglobin (Bld) [Mass/Vol] 12.4 g/dL Normal 11.5-15.5 [facility] Comment on above: Order Comment: Speci men Type: BLOOD SPECIMEN [facility]ing [facility]: [facility] Address: [address] [place] [address] Performed By: #### 1 9123-05, 55797-8 #### [facility] CLIA [id number] [address] [place] [address] [place] Immature granulocytes (Bld) [#/Vol] 0.04 10*3/uL Normal <0.10 [facility] Comment on above: Order Comment: Speci men Type: BLOOD SPECIMEN [facility]ing [facility]: [facility] Address: [address] [place] [address] Performed By: #### 1 9123-05, 70865-9 #### [facility] CLIA [id number] [address] [place] Immature granulocytes/100 WBC (Bld) 0.7 % Normal [facility] Comment on above: Order Comment: Speci men Type: BLOOD SPECIMEN [facility]ing Facility: [facility] Address: [address] [place] [address] Performed By: #### 1 9123-05, 04049-3 #### [facility] CLIA [id number] [address] [place] [address] [place] Lymphocytes (Bld) [#/Vol] 1.52 10*3/uL Normal 1.00-4.00 [facility] Comment on above: Order Comment: Speci men Type: BLOOD SPECIMEN [facility]ing [facility]: [facility] Address: [address] [place] [address] Performed By: #### 1 239, 84055-1 #### [facility] CLIA [id number] [address] [place] [address] [facility] OF [place] Lymphocytes/100 WBC (Bld) 26.3 % Normal [facility] Comment on above: Order Comment: Speci men Type: BLOOD SPECIMEN [facility] Address: [facility] [place] [address] Performed By: #### 1 239, #### [facility] CLIA [id number] [address] STATES [facility] MCH (RBC) [Entitic mass] 29.5 pg Normal 26.0-34.0 [facility] Comment on above: Order Comment: Speci men Type: BLOOD SPECIMEN Ordering Facility: [facility] Address: [address] [place] [address] Performed By: #### 1 9, #### [facility] CLIA [id number] [address] OF [place]UN[place] MCHC (RBC) [Mass/Vol] 32.2 g/dL Normal 30.5-36.0 [facility] Comment on above: Order Comment: Speci men Type: BLOOD SPECIMEN Ordering Facility: [facility] Address: [address] [place] [address] Performed By: #### 1 239, #### [facility] CLIA [id number] [address] MCV (RBC) [Entitic vol] 91.4 fL Normal 80.0-100.0 [facility] Comment on above: Order Comment: Speci men Type: BLOOD SPECIMEN Ordering Facility: [facility] Address: [address] [place] [address] Performed By: #### 1 239, #### [facility] CLIA [id number] [address] Monocytes (Bld) [#/Vol] 0.44 10*3/uL Normal <0.87 [facility] Comment on above: Order Comment: Speci men Type: BLOOD SPECIMEN Ordering Facility: [facility] Address: [address] [place] [address] Performed By: #### 1 9123-05, #### [facility] CLIA [id number] [address] [place] [address] [place] Monocytes/100 WBC (Bld) 7.6 % Normal [facility] Comment on above: Order Comment: Speci men Type: BLOOD SPECIMEN Ordering Facility: [facility] Address: [address] [place] [address] Performed By: #### 1 23-9, 47500-7 #### [facility] CLIA [id number] [address] [place] [address] [place] Neutrophils (Bld) [#/Vol] 3.55 10*3/uL Normal 1.45-7.50 [facility] Comment on above: Order Comment: Speci men Type: BLOOD SPECIMEN Ordering Facility: [facility] Address: [address] [place] [address] Performed By: #### 1 239, #### [facility] CLIA [id number] [address] [place] [address] [place] Neutrophils/100 WBC (Bld) 61.4 % Normal [facility] Comment on above: Order Comment: Speci men Type: BLOOD SPECIMEN Ordering Facility: [facility] Address: [address] [place] [address] Performed By: #### 1 239, #### [facility] CLIA [id number] [address] [place] [address] [place] Nucleated RBC (Bld) [#/Vol] 10*3/uL Normal <0.01 [facility] Comment on above: Order Comment: Speci men Type: BLOOD SPECIMEN Ordering Facility: [facility] Address: [address] [place] [address] Performed By: #### 1 9123-9, #### [facility] CLIA [id number] [address] OF [place] Nucleated RBC/100 WBC (Bld) [Ratio] 0.0 /100 WBC Normal [facility] Comment on above: Order Comment: Speci men Type: BLOOD SPECIMEN Ordering Facility: [facility] Address: [address] [place] [address] Performed By: #### 1 23-9, 56357-6 #### [facility] CLIA [id number] [address] [place] [address] [place] Platelet mean volume (Bld) [Entitic vol] 11.0 fL Normal 9.0-12.7 [facility] Comment on above: Order Comment: Speci men Type: BLOOD SPECIMEN Ordering Facility: [facility] Address: [address] [place] [address] Performed By: #### 1 239, 27644-9 #### [facility] CLIA [id number] [address] [place] [address] [place] Platelets (Bld) [#/Vol] 233 10*3/uL Normal 150-400 [facility] Comment on above: Order Comment: Speci men Type: BLOOD SPECIMEN Ordering Facility: [facility] Address: [address] [place] [address] Performed By: #### 1 9, #### [facility] CLIA [id number] [address] [place] [address] [place] RBC (Bld) [#/Vol] 4.21 10*6/uL Normal 3.90-5.20 [facility] Comment on above: Order Comment: Speci men Type: BLOOD SPECIMEN Ordering Facility: [facility] Address: [address] [place] [address] Performed By: #### 1 23-9, 34082-8 #### [facility] CLIA [id number] [address] [place] [address] [place] WBC (Bld) [#/Vol] 5.78 10*3/uL Normal 3.70-11.00 [facility] Comment on above: Order Comment: Speci men Type: BLOOD SPECIMEN Ordering Facility: [facility] Address: [address] [place] [address] Performed By: #### 1 23-9, 36576-5 #### [facility] CLIA [id number] [address] OF [place] Creatinine + eGFR Pnl SerPlB ldon 03-24-2025 Creatinine and Glomerular filtration rate.predicted panel (S/P/Bld) 95 mL/min/1.73m??? Normal >=60 [facility] Comment on above: Order Comment: Vickiroger lunsford Type: BLOOD SPECIMENOrdering Facility: [facility] Address: [address] [place] [address], [place] [address] Result Comment: Hortensia mated Glomerular Filtration Rate [...] actual GFR. Performed By: #### 4 5066-8, 26216-8 ####[facility] [id number] [place] [address] [place] [facility] Creatinine and Glomerular fi ltration rate.predicted panel (S/P/Bld)on 03-24-2025 Creatinine [Mass/Vol] 0.67 mg/dL Normal 0.58-0.96 [facility] Comment on above: Order Comment: Harry jonn Type: BLOOD SPECIMENOrdering Facility: [facility] Address: [address] [place] [address], [place] [address] Performed By: #### 4 5066-8, 94355-5 ####[facility] [id number] [address] STATES OF [place]UN[place] Hepatic function 2000 panelo n 03-24-2025 Albumin [Mass/Vol] 3.6 g/dL Low 3.9-4.9 [facility] Comment on above: Order Comment: Harry jonn Type: BLOOD SPECIMENOrdering Facility: [facility] Address: [address] [place] [address], [place] [address] Performed By: #### 4 5066-8, 85243-2 ####[facility] [id number] [place] [id number] [place] ALP [Catalytic activity/Vol] 86 U/L Normal 34-123 [facility] Comment on above: Order Comment: Vickiroger lunsford Type: BLOOD SPECIMENOrdering Facility: [facility] Address: [address] [place], [place] [address], [place] [address] Performed By: #### 4 5066-8, 64889-0 ####[facility] [id number] [place] [address] [place] ALT [Catalytic activity/Vol] 62 U/L High 7-38 [facility] Comment on above: Order Comment: Speci men Type: BLOOD SPECIMENOrdering Facility: [facility] Address: [address] [place] [address], [place] [address] Performed By: #### 4 5066-8, 66382-9 ####[facility] [id number] [place] [address] [place] AST [Catalytic activity/Vol] 93 U/L High 13-35 [facility] Comment on above: Order Comment: Speci men Type: BLOOD SPECIMENOrdering Facility: [facility] Address: [address] [place] [address] Performed By: #### 4 5066-8, 23807-9 ####[facility] [id number] [place] [address] [place] Bilirubin [Mass/Vol] 0.3 mg/dL Normal 0.2-1.3 [facility] Comment on above: Order Comment: Speci men Type: BLOOD SPECIMENOrdering Facility: [facility] Address: [address] [place] [address] Performed By: #### 4 5066-8, 75236-6 ####[facility] [id number] [place] [address] [facility] OF [place] Bilirubin.conjugated [Mass/Vol] 0.1 mg/dL Normal <0.3 [facility] Comment on above: Order Comment: Speci men Type: BLOOD SPECIMENOrdering Facility: [facility] Address: [address] [place] [address] Performed By: #### 4 5066-8, 83328-1 ####[facility] [id number] [place] [address] [place] Protein [Mass/Vol] 7.1 g/dL Normal 6.3-8.0 [facility] Comment on above: Order Comment: Speci men Type: BLOOD SPECIMENOrdering Facility: [facility] Address: [address] [place] [address], [place] [id number] Performed By: #### 4 5066-8, 94439-9 ####[facility] [id number] [place] [address] [place] CNPGina 03-21-2025 CNPN Telephone (HCSIND) -------- ALEXANDRA BELLA ([id number]) 1955 F Date Time Provider Department 03/21/25 [...] her concerns. Please advise. Betsy Fuentes RN [facility] Allergies As of Date: 03/21/2025 Noted [...] torso [D17.1] 11/05/2020 Coronary artery disease involving sioux rizzo*11/11/2020 History of DVT (deep vein thrombosis) [Z86.718] 11/26/2020 History of colorectal cancer [Z85.048] 11/26/2020 CHF (congestive heart failure) (HCC) [I50.9] 02/14/2022 Encounter for monitoring flecainide therapy [Z5*11/02/2021 [facility] c (more content not included)... Normal [facility] Basic metabolic 2000 panelon 03-20-2025 Anion gap [Moles/Vol] 12 mmol/L Normal 8-15 [facility] Comment on above: Order Comment: Speci men Type: BLOOD SPECIMENOrdering Facility: [facility] Address: [address] [place] [address] Performed By: #### 2 4321-2, ####[facility] [id number] [place] [address] [place] Calcium [Mass/Vol] 9.5 mg/dL Normal 8.5-10.2 [facility] Comment on above: Order Comment: Speci men Type: BLOOD SPECIMENOrdering Facility: [facility] Address: [address] [place] [address] Performed By: #### 2 4321-2, ####[facility] [id number] [place] [address] [place] Chloride [Moles/Vol] 104 mmol/L Normal 98-107 [facility] Comment on above: Order Comment: Speci men Type: BLOOD SPECIMENOrdering Facility: [facility] Address: [address] [place] [address] Performed By: #### 2 4321-2, ####[facility] [id number] [place] [id number] [place] CO2 [Moles/Vol] 24 mmol/L Normal 22-30 [facility] Comment on above: Order Comment: Speci men Type: BLOOD SPECIMENOrdering Facility: [facility] Address: [address] [place] [address] Performed By: #### 2 4321-2, ####[facility] [id number] [place] [id number] [place] Creatinine [Mass/Vol] 0.70 mg/dL Normal 0.58-0.96 [facility] Comment on above: Order Comment: Speci men Type: BLOOD SPECIMENOrdering Facility: [facility] Address: [address] [place] [address] Performed By: #### 2 4321-2, ####[facility] [id number] [place] [address] [place] Creatinine and Glomerular filtration rate.predicted panel (S/P/Bld) 94 mL/min/1.73m??? Normal >=60 [facility] Comment on above: Order Comment: Harry men Type: BLOOD SPECIMENOrdering Facility: [facility] Address: [address] [place] [address] Result Comment: Hortensia mated Glomerular Filtration Rate [...] reflect actual GFR. Performed By: #### 2 4321-, ####[facility] [id number] [place] [address] [place] Glucose [Mass/Vol] 128 mg/dL High 74-99 [facility] Comment on above: Order Comment: Harry lunsford Type: BLOOD SPECIMENOrdering Facility: [facility] Address: [address] [place] [address] Result Comment: The [place] Diabetes Association (ADA) provides guidance for cutoff [...] Standards of Medical Care in Diabetes 2016, [place] [employer]. Diabetes Care. 2016.39(Suppl 1). Performed By: #### 2 4321-2, ####[facility] [id number] [address] STATES OF [place] Potassium [Moles/Vol] 3.4 mmol/L Low 3.7-5.1 [facility] Comment on above: Order Comment: Speci men Type: BLOOD SPECIMENOrdering Facility: [facility] Address: [address] [place] [address] Performed By: #### 2 4321-2, ####[facility] [id number] [address] STATES OF [place] Sodium [Moles/Vol] 140 mmol/L Normal 136-144 [facility] Comment on above: Order Comment: Speci men Type: BLOOD SPECIMENOrdering Facility: [facility] Address: [address] [place] [address] Performed By: #### 2 4321-2, ####[facility] [id number] [address] STATES [facility] Urea nitrogen [Mass/Vol] 7 mg/dL Normal 7-21 [facility] Comment on above: Order Comment: Speci men Type: BLOOD SPECIMENOrdering Facility: [facility] Address: [address] [place] [address] Performed By: #### 2 4321-2, ####[facility] [id number] [address] CBC panel Auto (Bld)on 03-20 Erythrocyte distribution width (RBC) [Ratio] 13.2 % Normal 11.5-15.0 [facility] Comment on above: Order Comment: Speci men Type: BLOOD SPECIMENOrdering Facility: [facility] Address: [address] [place] [address] Performed By: #### 5 8410-2 ####[facility] [id number] [address] Hematocrit (Bld) [Volume fraction] 34.4 % Low 36.0-46.0 [facility] Comment on above: Order Comment: Speci men Type: BLOOD SPECIMENOrdering Facility: [facility] Address: [address] [place] [address] Performed By: #### 5 8410-2 ####[facility] [id number] [address] OF [place]UN[place] Hemoglobin (Bld) [Mass/Vol] 11.6 g/dL Normal 11.5-15.5 [facility] Comment on above: Order Comment: Speci men Type: BLOOD SPECIMENOrdering Facility: [facility] Address: [address] [place] [address] Performed By: #### 5 8410-2 ####[facility] [id number] [address] OF [place]UNIOR MCH (RBC) [Entitic mass] 30.1 pg Normal 26.0-34.0 [facility] Comment on above: Order Comment: Speci men Type: BLOOD SPECIMENOrdering Facility: [facility] Address: [address] [place] [address] Performed By: #### 5 8410-2 ####[facility] [id number] [address] MCHC (RBC) [Mass/Vol] 33.7 g/dL Normal 30.5-36.0 [facility] Comment on above: Order Comment: Speci men Type: BLOOD SPECIMENOrdering Facility: [facility] Address: [address] [place] [address] Performed By: #### 5 8410-2 ####[facility] [id number] [address] MCV (RBC) [Entitic vol] 89.1 fL Normal 80.0-100.0 [facility] Comment on above: Order Comment: Speci men Type: BLOOD SPECIMENOrdering Facility: [facility] Address: [address] [place] [address] Performed By: #### 5 8410-2 ####[facility] [id number] [address] Nucleated RBC (Bld) [#/Vol] 10*3/uL Normal <0.01 [facility] Comment on above: Order Comment: Speci men Type: BLOOD SPECIMENOrdering Facility: [facility] Address: [address] [place] [address] Performed By: #### 5 8410-2 ####[facility] [id number] [address] Platelet mean volume (Bld) [Entitic vol] 10.5 fL Normal 9.0-12.7 [facility] Comment on above: Order Comment: Speci men Type: BLOOD SPECIMENOrdering Facility: [facility] Address: [address] [place] [address] Performed By: #### 5 8410-2 ####[facility] [id number] [address] OF [place]UNIOR Platelets (Bld) [#/Vol] 210 10*3/uL Normal 150-400 [facility] Comment on above: Order Comment: Speci men Type: BLOOD SPECIMENOrdering Facility: [facility] Address: [address] [place] [address] Performed By: #### 5 8410-2 ####[facility] [id number] [address] OF [place]UN[place] RBC (Bld) [#/Vol] 3.86 10*6/uL Low 3.90-5.20 [facility] Comment on above: Order Comment: Speci men Type: BLOOD SPECIMENOrdering Facility: [facility] Address: [address] [place] [address] Performed By: #### 5 8410-2 ####[facility] [id number] [address] WBC (Bld) [#/Vol] 8.85 10*3/uL Normal 3.70-11.00 [facility] Comment on above: Order Comment: Speci men Type: BLOOD SPECIMENOrdering Facility: [facility] Address: [address] [place] [address] Performed By: #### 5 8410-2 ####[facility] [id number] [place] [id number] [facility] OF [facility]IOR CNDSon 03-20-2025 CNDS HNO ID: [id number] Author: PILAR KHAN MD Service: Hospital Medicine [...] of insulin (HCC) Yes Pure hypercholesterolemia 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 [facility] 03-20-2025 [facility] Telephone (HCSIND) -------- ALEXANDRA BELLA ([id number]) 1955 F Date Time Provider Department 03/20/25 [...] Reason for Visit: Home Care [4073] Cmt: to follow for [facility] Prescriptions as of 03/20/2025 - sucralfate [...] on Saturdays and none on Sundays. - [employer] ULTRA TEST test strip Use as directed [...] [M06.9] 08/24/2018 (more content not included)... Normal [facility] Telephone (HCSIND) -------- ALEXANDRA BELLA ([id number]) 1955 F Date Time Provider Department 03/20/25 JOON CLEMENS During your visit today, we recorded the following information about you: Joon Clemens LPN 03/20/2025 1:54 PM Signed CONFIRMATION CALL a. Date and Time: 1:53 PM 03/20/2025 b. Contact name/relationship: Patient C. Service Address- [address] [place], [place] [id number] Have you been active with any Home [...] Date Reviewed: 03/19/2025 Reviewed by: Elzbieta Jeffrey, JONI - Fully Assessed Reason for Visit: [...] day for 30 day(s) - Blood-Glucose Meter ([employer]TOUCH ULTRA2 METER) monitoring kit Use to test [...] SHASHANK LLOYD (more content not included)... Normal [facility] Telephone (HCSIND) -------- ALEXANDRA BELLA ([id number]) 1955 F Date Time Provider Department 03/20/25 [...] 30 mins after taking. - Blood-Glucose Meter ([employer]TOUCH ULTRA2 METER) monitoring kit Use to test [...] Atrial fibrillat (more content not included)... 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 Normal [facility] Magnesium SerPl-mCncon 03-20 Magnesium [Mass/Vol] 1.7 mg/dL Normal 1.7-2.3 [facility] Comment on above: Order Comment: Harry lunsford Type: BLOOD SPECIMENOrdering Facility: [facility] Address: [address] [place] [address] Performed By: #### 2 4321-2, 73737-9 ####[facility]ORYCLIA [id number] [address] STATES OF [place] PTT, ANTICOAGULANT THERAPYon 03-20-2025 aPTT Coag (PPP) [Time] s High 23.0-32.4 [facility] Comment on above: Order Comment: Harry lunsford Type: BLOOD SPECIMEN [facility] Address: [address] [place] [address] Result Comment: [facility] le checked for clot. Performed By: #### 1 9123-9, 36858-2 #### [facility] CLIA [id number] [address] OF [facility] aPTT Coag (PPP) [Time] 67.3 s High 23.0-32.4 [facility] Comment on above: Order Comment: Harry lunsford Type: BLOOD SPECIMENOrdering Facility: [facility] Address: [address] [place] [address] Performed By: #### P TTAC ####[facility]ORYCLIA [id number] [address] aPTT Coag (PPP) [Time] 87.3 s High 23.0-32.4 [facility] Comment on above: Order Comment: Harry lunsford Type: BLOOD SPECIMENOrdering Facility: [facility] Address: [address] [place] [address] Performed By: #### P TTAC ####[facility]ORYCLIA [id number] [address] [place] CBC panel Auto (Bld)on 03-19 Erythrocyte distribution width (RBC) [Ratio] 13.4 % Normal 11.5-15.0 [facility] Comment on above: Order Comment: Speci men Type: BLOOD SPECIMENOrdering Facility: [facility] Address: [address] [place] [address] Performed By: #### 5 8410-2 ####[facility]ORYCLIA [id number] [address] [place] Hematocrit (Bld) [Volume fraction] 34.9 % Low 36.0-46.0 [facility] Comment on above: Order Comment: Speci men Type: BLOOD SPECIMENOrdering Facility: [facility] Address: [address] [place] [address] Performed By: #### 5 8410-2 ####[facility]ORYCLIA [id number] [address] Hemoglobin (Bld) [Mass/Vol] 11.6 g/dL Normal 11.5-15.5 [facility] Comment on above: Order Comment: Speci men Type: BLOOD SPECIMENOrdering Facility: [facility] Address: [address] [place] [address] Performed By: #### 5 8410-2 ####[facility]ORYCLIA [id number] [address] [place] MCH (RBC) [Entitic mass] 29.7 pg Normal 26.0-34.0 [facility] Comment on above: Order Comment: Speci men Type: BLOOD SPECIMENOrdering Facility: [facility] Address: [address] [place] [address] Performed By: #### 5 8410-2 ####[facility]ORYCLIA [id number] [address] MCHC (RBC) [Mass/Vol] 33.2 g/dL Normal 30.5-36.0 [facility] Comment on above: Order Comment: Speci men Type: BLOOD SPECIMENOrdering Facility: [facility] Address: [address] [place] [address] Performed By: #### 5 8410-2 ####[facility]ATORYCLIA [id number] [place] [address] [place] MCV (RBC) [Entitic vol] 89.3 fL Normal 80.0-100.0 [facility] Comment on above: Order Comment: Speci men Type: BLOOD SPECIMENOrdering Facility: [facility] Address: [address] [place] [address] Performed By: #### 5 8410-2 ####[facility]ATORYCLIA [id number] [place] [address] [place] Nucleated RBC (Bld) [#/Vol] 10*3/uL Normal <0.01 [facility] Comment on above: Order Comment: Speci men Type: BLOOD SPECIMENOrdering Facility: [facility] Address: [address] [place] [address] Performed By: #### 5 8410-2 ####[facility]ORYCLIA [id number] [place] [address] [place] Platelet mean volume (Bld) [Entitic vol] 10.8 fL Normal 9.0-12.7 [facility] Comment on above: Order Comment: Speci men Type: BLOOD SPECIMENOrdering Facility: [facility] Address: [address] [place] [address] Performed By: #### 5 8410-2 ####[facility]ORYCLIA [id number] [address] OF [place] Platelets (Bld) [#/Vol] 219 10*3/uL Normal 150-400 [facility] Comment on above: Order Comment: Speci men Type: BLOOD SPECIMENOrdering Facility: [facility] Address: [address] [place] [address] Performed By: #### 5 8410-2 ####[facility]ORATORYCLIA [id number] [place] [address] [place] RBC (Bld) [#/Vol] 3.91 10*6/uL Normal 3.90-5.20 [facility] Comment on above: Order Comment: Speci men Type: BLOOD SPECIMENOrdering Facility: [facility] Address: [address] [place] [address] Performed By: #### 5 8410-2 ####[facility] LABORATORYCLIA [id number] [place] [address] [place] [facility] WBC (Bld) [#/Vol] 12.78 10*3/uL High 3.70-11.00 [facility] Comment on above: Order Comment: Speci men Type: BLOOD SPECIMENOrdering Facility: [facility] Address: [address] [place] [address] Performed By: #### 5 8410-2 ####MODALE LABORATORYCLIA [id number] [place] [address] [facility] CONSULTon 03-19-2025 CONSULT HNO ID: [id number] Author: ELMER MANLEY MD Service: Infectious Disease [...] or shared electronic medical record. HPI: Alexandra Hawley Neri who is a 69 year old female [...] UPPER/ADJACENT VAGINA 12/1991 Colposcopy CONIZATION CERVIX W/WO [facility] RPR ELTRD EXC 01/1992 CONE BX, focal [...] breast PAST SURGICAL HISTORY OF 07/2008 had fatty tumor removed from back PAST SURGICAL HISTORY OF [...] Vaping status: Neve (more content not included)... Normal [facility] CONSULT PROGon 03-19-2025 CONSULT PROG HNO ID: [id number] Author: LACY PONCE APRN.SPOOL MAKER Service: General Surgery Author Type: Nurse Practitioner [...] (Src) 97.8 (Axillary) Resp 16 Ht 5' 3 (1.60m) Wt 276 lb 10.8 oz (125.5kg) [...] - would recommended f/u outpatient colorectal (Dr.Bradley Csear) for possible sigmoid resection - No surgical intervention at this time will continue to monitor - Discussed with and patient Active Problems: MARILIA on CPAP (POA: Yes) Assessment AND Plan: Per primary Postoperative hypothyroidism (POA: Yes) Assessment AND Plan: Per primary Essential hypertension (POA: Y (more content not included)... Normal [facility] Comprehensive metabolic 2000 panelon 03-19-2025 Albumin [Mass/Vol] 3.0 g/dL Low 3.9-4.9 [facility] Comment on above: Order Comment: Speci jonn Type: BLOOD SPECIMENOrdering Facility: [facility] Address: [address] [place] [address] Performed By: #### 2 4328, ####LOONEY LABORATORYCLIA [id number] [place] [address] [place] ALP [Catalytic activity/Vol] 84 U/L Normal 34-123 [facility] Comment on above: Order Comment: Vickii jonn Type: BLOOD SPECIMENOrdering Facility: [facility] Address: [address] [place] [address] Performed By: #### 2 4323-8, ####LOONEY LABORATORYCLIA [id number] [place] [id number] [place] ALT [Catalytic activity/Vol] 17 U/L Normal 7-38 [facility] Comment on above: Order Comment: Speci men Type: BLOOD SPECIMENOrdering Facility: [facility] Address: [address] [place] [address] Performed By: #### 2 43238, ####LOONEY LABORATORYCLIA [id number] [place] [id number] [place] Anion gap [Moles/Vol] 10 mmol/L Normal 8-15 [facility] Comment on above: Order Comment: Speci men Type: BLOOD SPECIMENOrdering Facility: [facility] Address: [address] [facility] [address] Performed By: #### 2 8, ####LOONEY LABORATORYCLIA [id number] [place] [address] [place] AST [Catalytic activity/Vol] 14 U/L Normal 13-35 [facility] Comment on above: Order Comment: Speci men Type: BLOOD SPECIMENOrdering Facility: [facility] Address: [address] [place] [address] [place] [address] Performed By: #### 2 4328, ####LOONEY LABORATORYCLIA [id number] [place] [address] [place] Bilirubin [Mass/Vol] 0.4 mg/dL Normal 0.2-1.3 [facility] Comment on above: Order Comment: Speci men Type: BLOOD SPECIMENOrdering Facility: [facility] Address: [address] [place] [address] Performed By: #### 2 8, ####LOONEY LABORATORYCLIA [id number] [place] [address] [place] Calcium [Mass/Vol] 8.9 mg/dL Normal 8.5-10.2 [facility] Comment on above: Order Comment: Speci men Type: BLOOD SPECIMENOrdering Facility: [facility] Address: [address] [place] [address] Performed By: #### 2 8, ####LOONEY LABORATORYCLIA [id number] [place] [id number] [place] Chloride [Moles/Vol] 100 mmol/L Normal 98-107 [facility] Comment on above: Order Comment: Speci men Type: BLOOD SPECIMENOrdering Facility: [facility] Address: [address] [place] [address] [place] [address] Performed By: #### 2 4323-8, ####LOONEY LABORATORYCLIA [id number] [place] [id number] [place] CO2 [Moles/Vol] 24 mmol/L Normal 22-30 [facility] Comment on above: Order Comment: Harry lunsford Type: BLOOD SPECIMENOrdering Facility: [facility] Address: [address] [place] [address] Performed By: #### 2 4323-8, ####LOONEY LABORATORYCLIA [id number] [place] [address] [place] Creatinine [Mass/Vol] 0.82 mg/dL Normal 0.58-0.96 [facility] Comment on above: Order Comment: Harry men Type: BLOOD SPECIMENOrdering Facility: [facility] Address: [address] [place] [address] Performed By: #### 2 4323-8, ####LOONEY LABORATORYCLIA [id number] [address] Creatinine and Glomerular filtration rate.predicted panel (S/P/Bld) 78 mL/min/1.73m??? Normal >=60 [facility] Comment on above: Order Comment: Harry lunsford Type: BLOOD SPECIMENOrdering Facility: [facility] Address: [address] [place] [address] Result Comment: Hortensia mated Glomerular Filtration Rate [...] actual GFR. Performed By: #### 2 4323-8, ####MODALE LABORATORYCLIA [id number] [place] [id number] [place] Glucose [Mass/Vol] 107 mg/dL High 74-99 [facility] Comment on above: Order Comment: Harry jonn Type: BLOOD SPECIMENOrdering Facility: [facility] Address: [address] [place] [address] Result Comment: The [place] Diabetes Association (ADA) provides guidance for cutoff [...] Standards of Medical Care in Diabetes 2016, [place] [employer]. Diabetes Care. 2016.39(Suppl 1). Performed By: #### 2 4328, ####LOONEY LABORATORYCLIA [id number] [place] [address] [place] Potassium [Moles/Vol] 3.4 mmol/L Low 3.7-5.1 [facility] Comment on above: Order Comment: Harry lunsford Type: BLOOD SPECIMENOrdering Facility: [facility] Address: [address] [place] [address] Performed By: #### 2 4323-04, ####LOONEY LABORATORYCLIA [id number] [place] [address] [place] Protein [Mass/Vol] 6.3 g/dL Normal 6.3-8.0 [facility] Comment on above: Order Comment: Harry lunsford Type: BLOOD SPECIMENOrdering Facility: [facility] Address: [address] [place] [address] Performed By: #### 2 4323-04, ####LOONEY LABORATORYCLIA [id number] [place] [address] [place] Sodium [Moles/Vol] 134 mmol/L Low 136-144 [facility] Comment on above: Order Comment: Harry lunsford Type: BLOOD SPECIMENOrdering Facility: [facility] Address: [address] [place] [address] Performed By: #### 2 43211-16, ####LOONEY LABORATORYCLIA [id number] [place] [id number] [place] Urea nitrogen [Mass/Vol] 8 mg/dL Normal 7-21 [facility] Comment on above: Order Comment: Harry lunsford Type: BLOOD SPECIMENOrdering Facility: [facility] Address: [address] [place], [place] [address] [id number] Performed By: #### 2 4323-8, 51788-6 ####LOONEY LABORATORYCLIA [id number] [address] Magnesium SerPl-mCncon 03-19 Magnesium [Mass/Vol] 1.6 mg/dL Low 1.7-2.3 [facility] Comment on above: Order Comment: Speci men Type: BLOOD SPECIMENOrdering Facility: [facility] Address: [address] [place] [address] Performed By: #### 2 4323-8, 64145-7 ####LOONEY LABORATORYCLIA [id number] [place] [address] [place] PTT, ANTICOAGULANT THERAPYon 03-19-2025 aPTT Coag (PPP) [Time] 41.6 s High 23.0-32.4 [facility] Comment on above: Order Comment: Speci men Type: BLOOD SPECIMENOrdering Facility: [facility] Address: [address] [place] [address] Performed By: #### P TTAC ####LOONEY LABORATORYCLIA [id number] [address] [place] aPTT Coag (PPP) [Time] 55.2 s High 23.0-32.4 [facility] Comment on above: Order Comment: Speci men Type: BLOOD SPECIMEN [facility] Address: [address] [place] [address] Performed By: #### 1 9123-9, 99592-8 #### [facility] CLIA [id number] [address] aPTT Coag (PPP) [Time] 98.5 s High 23.0-32.4 [facility] Comment on above: Order Comment: Speci men Type: BLOOD SPECIMENOrdering Facility: [facility] Address: [address] [place] [address] Performed By: #### P TTAC ####LOONEY LABORATORYCLIA [id number] [address] [place] OF [place] ALLIED HEALTHon 03-18-2025 ALLIED HEALTH HNO ID: [id number] Author: BIBI FRIEDMAN RT(R) Service: Radiology Author [...] PATIENT PRESENTS WITH AN IMPLANTABLE OR ATTACHED CELL ROOM SUPERVISOR: No RADIOLOGY DEPARTMENT: General X-ray: Exam(s) Completed: Chest X-Ray PERIPHERAL IV DATA: Not applicable SIGNED BY: Bibi Friedman RT(R) March 18, 2025 5:26 PM Normal [facility] CBC panel Auto (Bld)on 03-18 Erythrocyte distribution width (RBC) [Ratio] 13.6 % Normal 11.5-15.0 [facility] Comment on above: Order Comment: Harry lunsford Type: BLOOD SPECIMENOrdering Facility: [facility] Address: [address] [place] [address] Performed By: #### 5 8410-2 ####MODALE LABORATORYCLIA [id number] [address] STATES OF [place] Hematocrit (Bld) [Volume fraction] 35.8 % Low 36.0-46.0 [facility] Comment on above: Order Comment: Harry lunsford Type: BLOOD SPECIMENOrdering Facility: [facility] Address: [address] [place] [address] Performed By: #### 5 8410-2 ####MODALE LABORATORYCLIA [id number] [place] [address] [place] Hemoglobin (Bld) [Mass/Vol] 11.6 g/dL Normal 11.5-15.5 [facility] Comment on above: Order Comment: Speci men Type: BLOOD SPECIMENOrdering Facility: [facility] Address: [address] [place] [address] Performed By: #### 5 8410-2 ####LOONEY LABORATORYCLIA [id number] [address] MCH (RBC) [Entitic mass] 29.3 pg Normal 26.0-34.0 [facility] Comment on above: Order Comment: Speci men Type: BLOOD SPECIMENOrdering Facility: [facility] Address: [address] [place] [address] Performed By: #### 5 8410-2 ####MODALE LABORATORYCLIA [id number] [address] MCHC (RBC) [Mass/Vol] 32.4 g/dL Normal 30.5-36.0 [facility] Comment on above: Order Comment: Speci men Type: BLOOD SPECIMENOrdering Facility: [facility] Address: [address] [place] [address] Performed By: #### 5 8410-2 ####MODALE LABORATORYCLIA [id number] [address] MCV (RBC) [Entitic vol] 90.4 fL Normal 80.0-100.0 [facility] Comment on above: Order Comment: Speci men Type: BLOOD SPECIMENOrdering Facility: [facility] Address: [address] [place] [address] Performed By: #### 5 8410-2 ####MODALE LABORATORYCLIA [id number] [address] Nucleated RBC (Bld) [#/Vol] 10*3/uL Normal <0.01 [facility] Comment on above: Order Comment: Speci men Type: BLOOD SPECIMENOrdering Facility: [facility] Address: [address] [place] [address] Performed By: #### 5 8410-2 ####MODALE LABORATORYCLIA [id number] [address] Platelet mean volume (Bld) [Entitic vol] 10.6 fL Normal 9.0-12.7 [facility] Comment on above: Order Comment: Speci men Type: BLOOD SPECIMENOrdering Facility: [facility] Address: [address] [place] [address] [place] [address] Performed By: #### 5 8410-2 ####MODALE LABORATORYCLIA [id number] [address] OF [place] Platelets (Bld) [#/Vol] 202 10*3/uL Normal 150-400 [facility] Comment on above: Order Comment: Speci men Type: BLOOD SPECIMENOrdering Facility: [facility] Address: [address] [place] [address] Performed By: #### 5 8410-2 ####MODALE LABORATORYCLIA [id number] [address] OF [place] RBC (Bld) [#/Vol] 3.96 10*6/uL Normal 3.90-5.20 [facility] Comment on above: Order Comment: Speci men Type: BLOOD SPECIMENOrdering Facility: [facility] Address: [address] [place] [address] Performed By: #### 5 8410-2 ####MODALE LABORATORYCLIA [id number] [address] OF [place] WBC (Bld) [#/Vol] 14.82 10*3/uL High 3.70-11.00 [facility] Comment on above: Order Comment: Speci men Type: BLOOD SPECIMENOrdering Facility: [facility] Address: [address] [place] [address] [place] [address] Performed By: #### 5 8410-2 ####MODALE LABORATORYCLIA [id number] [place] [id number] [facility] CONSULTon 03-18-2025 CONSULT HNO ID: [id number] Author: ORVILLE MEYER MD Service: General Surgery [...] Ivy Santiago PRIMARY CARE PHYSICIAN: Leonora Davalos APRN.SPOOL MAKER Subjective Ms. Bella is a 69 year [...] changes, peripheral edema, paresthesias or focal weaknesses. [facility] ED Course: HR 100. WBC 18.52, ANC 12.59 otherwise labs unremarkable. Lactate normal. Blood Cx x2 pending. CT AP with inflammatory changes surrounding a 2 cm outpouching in the mid sigmoid colon suggestive of diverticulitis although difficult to assess for possible abscess. Received IV Rocephin, Flagyl, Morphine and IVF in the ED. The patient was transferred to [facility] under Medicine for further management of acute [...] arthritis (HCC) (more content not included)... Normal [facility] Comprehensive metabolic 2000 panelon 03-18-2025 Albumin [Mass/Vol] 3.0 g/dL Low 3.9-4.9 [facility] Comment on above: Order Comment: Harry lunsford Type: BLOOD SPECIMEN [facility] Address: [address] [place] [address] Performed By: #### 1 23-9, 24670-0 #### [facility] CLIA [id number] [address] [place] [address] [place] ALP [Catalytic activity/Vol] 93 U/L Normal 34-123 [facility] Comment on above: Order Comment: Harry lunsford Type: BLOOD SPECIMEN [facility] Address: [address] [place] [address] Performed By: #### 1 23-9, 26808-5 #### [facility] CLIA [id number] [address] [place] [address] [place] ALT [Catalytic activity/Vol] 19 U/L Normal 7-38 [facility] Comment on above: Order Comment: Harry lunsford Type: BLOOD SPECIMEN [facility] Address: [address] [place] [address] Performed By: #### 1 23-9, 83706-5 #### [facility] CLIA [id number] [address] [place] [address] [place] Anion gap [Moles/Vol] 11 mmol/L Normal 8-15 [facility] Comment on above: Order Comment: Harry lunsford Type: BLOOD SPECIMEN [facility] Address: [facility] [place] [address] Performed By: #### 1 23-9, 87220-1 #### [facility] CLIA [id number] [address] [place] [address] [place] AST [Catalytic activity/Vol] 12 U/L Low 13-35 [facility] Comment on above: Order Comment: Speci men Type: BLOOD SPECIMEN [facility] Address: [address] [place] [address] Performed By: #### 1 23-9, 08763-2 #### [facility] CLIA [id number] [address] [place] [address] [place] Bilirubin [Mass/Vol] 0.6 mg/dL Normal 0.2-1.3 [facility] Comment on above: Order Comment: Speci men Type: BLOOD SPECIMEN [facility] Address: [address] [place] [address] Performed By: #### 1 23-9, #### [facility] CLIA [id number] [address] [place] [address] [place] Calcium [Mass/Vol] 9.1 mg/dL Normal 8.5-10.2 [facility] Comment on above: Order Comment: Speci men Type: BLOOD SPECIMEN [facility] Address: [address] [place] [address] Performed By: #### 1 23-9, 58823-6 #### [facility] CLIA [id number] [address] [place] [address] [place] Chloride [Moles/Vol] 105 mmol/L Normal 98-107 [facility] Comment on above: Order Comment: Speci men Type: BLOOD SPECIMEN [facility] Address: [address] [place] [address] Performed By: #### 1 23-9, 78590-4 #### [facility] CLIA [id number] [address] [place] [address] [place] CO2 [Moles/Vol] 21 mmol/L Low 22-30 [facility] Comment on above: Order Comment: Speci men Type: BLOOD SPECIMEN [facility] Address: [address] [place] [address] Performed By: #### 1 23-9, 02079-1 #### [facility] CLIA [id number] [address] STATES OF [place] Creatinine [Mass/Vol] 0.88 mg/dL Normal 0.58-0.96 [facility] Comment on above: Order Comment: Harry lunsford Type: BLOOD SPECIMEN [facility] Address: [address] [place] [address] Performed By: #### 1 9123-9, 21877-6 #### [facility] CLIA [id number] [address] OF [place] Creatinine and Glomerular filtration rate.predicted panel (S/P/Bld) 71 mL/min/1.73m??? Normal >=60 [facility] Comment on above: Order Comment: Harry lunsford Type: BLOOD SPECIMEN [facility] Address: [address] [place] [address] Result Comment: Hortensia mated Glomerular Filtration Rate [...] actual GFR. Performed By: #### 1 9123-9, 12663-8 #### [facility] CLIA [id number] [address] STATES [place] Glucose [Mass/Vol] 142 mg/dL High 74-99 [facility] Comment on above: Order Comment: Harry lunsford Type: BLOOD SPECIMEN [facility] Address: [address] [place] [address] Result Comment: The [place] Diabetes Association (ADA) provides guidance for cutoff [...] Standards of Medical Care in Diabetes 2016, [place] [employer]. Diabetes Care. 2016.39(Suppl 1). Performed By: #### 1 23-9, 66882-7 #### [facility] CLIA [id number] [address] [place] [address] [place] [facility] Potassium [Moles/Vol] 3.7 mmol/L Normal 3.7-5.1 [facility] Comment on above: Order Comment: Speci men Type: BLOOD SPECIMEN [facility] Address: [address] [place] [address] Performed By: #### 1 23-9, 50444-8 #### [facility] CLIA [id number] [address] [place] [address] [place] Protein [Mass/Vol] 7.0 g/dL Normal 6.3-8.0 [facility] Comment on above: Order Comment: Vickii men Type: BLOOD SPECIMEN [facility] Address: [address] [place] [address] Performed By: #### 1 239, 32476-7 #### [facility] CLIA [id number] [address] [place] Sodium [Moles/Vol] 137 mmol/L Normal 136-144 [facility] Comment on above: Order Comment: Vickii men Type: BLOOD SPECIMEN [facility] Address: [address] [place] [address] Performed By: #### 1 23-9, 67298-6 #### [facility] CLIA [id number] [address] [place] [address] [place] Urea nitrogen [Mass/Vol] 14 mg/dL Normal 7-21 [facility] Comment on above: Order Comment: Vickii men Type: BLOOD SPECIMEN [facility] Address: [facility] [place] [address] Performed By: #### 1 23-9, 02683-0 #### [facility] CLIA [id number] [address] [place] [address] [place] ECG COMPLETEon 03-18-2025 ECG COMPLETE Ventricular Rate : 8 3 BPM Atrial Rate : 83 BPM P-R Interval : 190 ms QRS Duration : 144 ms Q-T Interval : 444 ms QTC Calculation(Bazett) : 521 ms Calculated P [place] : 58 degrees Calculated R [place] : 109 degrees Calculated T [place] : 19 degrees NORMAL SINUS RHYTHM RIGHT BUNDLE BRANCH BLOCK ABNORMAL ECG WHEN COMPARED WITH ECG OF 01-Mar-2021 16:24, INVERTED T WAVES HAVE REPLACED NONSPECIFIC T WAVE ABNORMALITY IN INFERIOR LEADS Confirmed by TONJA OVALLE MD ([id number]) on 03/19/2025 4:18:35 PM NAME : ALEXANDRA BELLA PID : [id number] : 1955 Gender : Female Race : ORD : [id number] Procedure Date : Mar 18 2025 16:41:18 Edit Date : Mar 19 2025 16:18:38 Diagnosis: NORMAL SINUS RHYTHM RIGHT BUNDLE BRANCH BLOCK ABNORMAL ECG WHEN COMPARED WITH ECG OF 01-Mar-2021 16:24, INVERTED T WAVES HAVE REPLACED NONSPECIFIC T WAVE ABNORMALITY IN INFERIOR LEADS Confirmed by TONJA OVALLE MD ([id number]) on 03/19/2025 4:18:35 PM Test Reason : Chest Pain Location : 4 : 2S 0222 Overread By : TONJA OVALLE MD Edited By : TONJA OVALLE MD Referred By : MEHRDAD VELASQUEZ Acquired by : [id number], Normal [facility] HIGH SENSITIVITY TROPONIN To n 03-18-2025 Troponin T.cardiac High sensitivity method [Mass/Vol] 9 ng/L Normal <12 [facility] Comment on above: Order Comment: Vickii men Type: BLOOD SPECIMENOrdering Facility: [facility] Address: [address] [place] [address] Performed By: #### H STNT ####LOONE[facility] LABORATORYCLIA [id number] [place] [address] [place] Troponin T.cardiac High sensitivity method [Mass/Vol] 8 ng/L Normal <12 [facility] Comment on above: Order Comment: Speci men Type: BLOOD SPECIMENOrdering Facility: [facility] Address: [address] [place] [address] Performed By: #### H STNT ####LOONE[facility] LABORATORYCLIA [id number] [place] [id number] [place] Magnesium SerPl-mCncon 03-18 Magnesium [Mass/Vol] 2.3 mg/dL Normal 1.7-2.3 [facility] Comment on above: Order Comment: Speci men Type: BLOOD SPECIMEN [facility] Address: 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 Reached out to care team on floor dt incubating blood cultures. Discussed with Lacy RAPHAEL and floor RN. Will hold off on placement of central line until cultures result. [facility] PTT, ANTICOAGULANT THERAPYon 03-18-2025 aPTT Coag (PPP) [Time] 37.0 s High 23.0-32.4 [facility] Comment on above: Order Comment: Harry lunsford Type: BLOOD SPECIMENOrdering Facility: [facility] Address: [address] [place] [address] Performed By: #### P TTAC ####[facility]ORYCLIA [id number] [address] aPTT Coag (PPP) [Time] 93.9 s High 23.0-32.4 [facility] Comment on above: Order Comment: Harry lunsford Type: BLOOD SPECIMEN Ordering Facility: [facility] Address: [address] [place] [address] Performed By: #### 1 9123-9, 94804-4 #### [facility] CLIA [id number] [address] aPTT Coag (PPP) [Time] 71.2 s High 23.0-32.4 [facility] Comment on above: Order Comment: Harry lunsford Type: BLOOD SPECIMENOrdering Facility: [facility] Address: [address] [place] [address] Performed By: #### P TTAC ####[facility]ORATORYCLIA [id number] [address] OF [facility] XR CHEST 1V FRONTAL PORTon 0 03-18-2025 [...] Stable exam with no definite acute disease. Sandstone Inspector Repairer: PSCB Transcribe Date/Time: Mar 18 2025 5:57P Dictated by : BUNNY MA MD This examination was interpreted and the report reviewed and electronically signed by: BUNNY MA MD on Mar 18 2025 5:57PM EST [id number] [facility] 03-17-2025 [facility] HNO ID: [id number] Author: MARTINE HELTON RT(R) Service: Radiology Author Type: Baseboard Heating Installer Type: Allied Health Filed: 03/17/2025 15:58 Note [...] PATIENT PRESENTS WITH AN IMPLANTABLE OR ATTACHED CELL ROOM SUPERVISOR: No RADIOLOGY DEPARTMENT: CT; Exam(s) Completed: Abdomen/Pelvis PERIPHERAL IV DATA: Not applicable SIGNED BY: RT Mellissa(R) March 17, 2025 3:57 PM Normal [facility] Bacteria Bld Culton 03-17-20 25 Bacteria identified Cx Nom (Bld) CULTURE, BLOOD: No growth 5 days Normal [facility] Comment on above: Performed By: #### 5 7021-8 #### [facility] CLIA [id number] [address] [place], [place] [id number] [place] Bacteria identified Cx Nom (Bld) CULTURE, BLOOD: No growth 5 days Normal [facility] Comment on above: Performed By: #### 5 5454-3 #### [facility] CLIA [id number] [address] [place] [address] [place] CBC W Auto Differential pane l (Bld)on 03-17-2025 Basophils (Bld) [#/Vol] 0.00 10*3/uL Normal <0.11 [facility] Comment on above: Order Comment: Speci men Type: BLOOD SPECIMEN Ordering Facility: [facility] Address: [address] [place] [address] Performed By: #### 5 5454-3 #### [facility] CLIA [id number] [address] [place] [address] [place] Basophils/100 WBC (Bld) 0.0 % Normal A [facility] Comment on above: Order Comment: Speci men Type: BLOOD SPECIMEN Ordering Facility: [facility] Address: [address] [place] [address] Performed By: #### 5 5454-3 #### [facility] CLIA [id number] [address] [place] [address] [place] Dacrocytes LM Ql (Bld) Few Normal [facility] Comment on above: Order Comment: Speci men Type: BLOOD SPECIMEN Ordering Facility: [facility] Address: [address] [place] [address] Performed By: #### 5 5454-3 #### [facility] CLIA [id number] [address] [place] [address] [place] Differential cell count method Nom (Bld) Manual Normal [facility] Comment on above: Order Comment: Speci men Type: BLOOD SPECIMEN Ordering Facility: [facility] Address: [address] [place] [address] Performed By: #### 5 5454-3 #### [facility] CLIA [id number] [address] [place] [address] [place] Eosinophils (Bld) [#/Vol] 0.00 10*3/uL Normal <0.46 [facility] Comment on above: Order Comment: Speci men Type: BLOOD SPECIMEN Ordering Facility: [facility] Address: [address] [place] [address] Performed By: #### 5 5454-3 #### [facility] CLIA [id number] [address] [place] [address] [place] Eosinophils/100 WBC (Bld) 0.0 % Normal [facility] Comment on above: Order Comment: Speci men Type: BLOOD SPECIMEN Ordering Facility: [facility] Address: [address] [place] [address] Performed By: #### 5 5454-3 #### [facility] CLIA [id number] [address] [place] [address] [place] Erythrocyte distribution width (RBC) [Ratio] 13.6 % Normal 11.5-15.0 [facility] Comment on above: Order Comment: Speci men Type: BLOOD SPECIMEN Ordering Facility: [facility] Address: [address] [place] [address] Performed By: #### 5 5454-3 #### [facility] CLIA [id number] [address] [place] [address] [place] Giant platelets LM Ql (Bld) Occasional Normal [facility] Comment on above: Order Comment: Speci men Type: BLOOD SPECIMEN Ordering Facility: [facility] Address: [address] [place] [address] Performed By: #### 5 5454-3 #### [facility] CLIA [id number] [address] [place] [address] [place] Hematocrit (Bld) [Volume fraction] 40.8 % Normal 36.0-46.0 [facility] Comment on above: Order Comment: Speci men Type: BLOOD SPECIMEN Ordering Facility: [facility] Address: [address] [place] [address] Performed By: #### 5 5454-3 #### [facility] CLIA [id number] [address] [place] [address] [place] Hemoglobin (Bld) [Mass/Vol] 13.3 g/dL Normal 11.5-15.5 [facility] Comment on above: Order Comment: Speci men Type: BLOOD SPECIMEN Ordering Facility: [facility] Address: [address] [place] [address] Performed By: #### 5 5454-3 #### [facility] CLIA [id number] [address] [place] [address] [place] Lymphocytes (Bld) [#/Vol] 4.26 10*3/uL High 1.00-4.00 [facility] Comment on above: Order Comment: Speci men Type: BLOOD SPECIMEN Ordering Facility: [facility] Address: [address] [place] [address] Performed By: #### 5 5454-3 #### [facility] CLIA [id number] [address] [place] [address] [place] Lymphocytes/100 WBC (Bld) 23.0 % Normal [facility] Comment on above: Order Comment: Speci men Type: BLOOD SPECIMEN Ordering Facility: [facility] Address: [address] [place] [address] Performed By: #### 5 5454-3 #### [facility] CLIA [id number] [address] [place] [address] [place] MCH (RBC) [Entitic mass] 29.6 pg Normal 26.0-34.0 [facility] Comment on above: Order Comment: Speci men Type: BLOOD SPECIMEN Ordering Facility: [facility] Address: [address] [place] [address] Performed By: #### 5 5454-3 #### [facility] CLIA [id number] [address] [place] [address] [place] MCHC (RBC) [Mass/Vol] 32.6 g/dL Normal 30.5-36.0 [facility] Comment on above: Order Comment: Speci men Type: BLOOD SPECIMEN Ordering Facility: [facility] Address: [address] [place] [address] Performed By: #### 5 5454-3 #### [facility] CLIA [id number] [address] [place] [address] [place] MCV (RBC) [Entitic vol] 90.9 fL Normal 80.0-100.0 A [facility] Comment on above: Order Comment: Speci men Type: BLOOD SPECIMEN Ordering Facility: [facility] Address: [address] [place] [address] Performed By: #### 5 5454-3 #### [facility] CLIA [id number] [address] [place] [address] [place] Monocytes (Bld) [#/Vol] 1.67 10*3/uL High <0.87 [facility] Comment on above: Order Comment: Speci men Type: BLOOD SPECIMEN Ordering Facility: [facility] Address: [address] [place] [address] Performed By: #### 5 5454-3 #### [facility] CLIA [id number] [address] [place] [address] [place] Monocytes/100 WBC (Bld) 9.0 % Normal A [facility] Comment on above: Order Comment: Speci men Type: BLOOD SPECIMEN Ordering Facility: [facility] Address: [address] [place] [address] Performed By: #### 5 5454-3 #### [facility] CLIA [id number] [address] [place] [address] [place] Neutrophils (Bld) [#/Vol] 12.59 10*3/uL High 1.45-7.50 [facility] Comment on above: Order Comment: Speci men Type: BLOOD SPECIMEN Ordering Facility: [facility] Address: [address] [place] [address] Performed By: #### 5 5454-3 #### [facility] CLIA [id number] [address] [place] [address] [place] Neutrophils/100 WBC (Bld) 68.0 % Normal [facility] Comment on above: Order Comment: Speci men Type: BLOOD SPECIMEN Ordering Facility: [facility] Address: [address] [place] [address] Performed By: #### 5 5454-3 #### [facility] CLIA [id number] [address] [place] [address] [place] Nucleated RBC (Bld) [#/Vol] 10*3/uL Normal <0.01 [facility] Comment on above: Order Comment: Speci men Type: BLOOD SPECIMEN Ordering Facility: [facility] Address: [address] [place] [address] Performed By: #### 5 5454-3 #### [facility] CLIA [id number] [address] [place] [address] [place] Nucleated RBC/100 WBC (Bld) [Ratio] 0.0 /100 WBC Normal [facility] Comment on above: Order Comment: Speci men Type: BLOOD SPECIMEN Ordering Facility: [facility] Address: [address] [place] [address] Performed By: #### 5 5454-3 #### [facility] CLIA [id number] [address] [place] [address] [place] Platelet mean volume (Bld) [Entitic vol] 11.1 fL Normal 9.0-12.7 [facility] Comment on above: Order Comment: Speci men Type: BLOOD SPECIMEN Ordering Facility: [facility] Address: [address] [place] [address] Performed By: #### 5 5454-3 #### [facility] CLIA [id number] [address] [place] [address] [place] Platelets (Bld) [#/Vol] 237 10*3/uL Normal 150-400 [facility] Comment on above: Order Comment: Speci men Type: BLOOD SPECIMEN Ordering Facility: [facility] Address: [address] [place] [address] Performed By: #### 5 5454-3 #### [facility] CLIA [id number] [address] [place] [address] [place] Platelets Estimate (Bld) [#/Vol] Adequate Normal [facility] Comment on above: Order Comment: Speci men Type: BLOOD SPECIMEN Ordering Facility: [facility] Address: [address] [place] [address] Performed By: #### 5 5454-3 #### [facility] CLIA [id number] [address] [place] [address] [place] Polychromasia LM Ql (Bld) Slight Normal [facility] Comment on above: Order Comment: Speci men Type: BLOOD SPECIMEN Ordering Facility: [facility] Address: [address] [place] [address] Performed By: #### 5 5454-3 #### [facility] CLIA [id number] [address] [place] [address] [place] RBC (Bld) [#/Vol] 4.49 10*6/uL Normal 3.90-5.20 [facility] Comment on above: Order Comment: Speci men Type: BLOOD SPECIMEN Ordering Facility: [facility] Address: [address] [place] [address] Performed By: #### 5 5454-3 #### [facility] CLIA [id number] [address] [place], [place] [id number] [place] RED CELL MORPH Reviewed: see result s of individual morphologies Normal [facility] Comment on above: Order Comment: Speci men Type: BLOOD SPECIMEN Ordering Facility: [facility] Address: [address] [place] [address] Performed By: #### 5 5454-3 #### [facility] CLIA [id number] [address] [place] [address] [place] WBC (Bld) [#/Vol] 18.52 10*3/uL High 3.70-11.00 [facility] Comment on above: Order Comment: Speci men Type: BLOOD SPECIMEN Ordering Facility: [facility] Address: [address] [place] [address] Performed By: #### 5 5454-3 #### [facility] CLIA [id number] [address] [place] [address] [place] CBC panel Auto (Bld)on 03-17 Erythrocyte distribution width (RBC) [Ratio] 13.6 % Normal 11.5-15.0 [facility] Comment on above: Order Comment: Speci men Type: BLOOD SPECIMENOrdering Facility: [facility] Address: [address] [place] [address] Performed By: #### 5 8410-2 ####[facility]ORATORYCLIA [id number] [place] [address] [place] Hematocrit (Bld) [Volume fraction] 37.1 % Normal 36.0-46.0 [facility] Comment on above: Order Comment: Speci men Type: BLOOD SPECIMENOrdering Facility: [facility] Address: [address] [place] [address] Performed By: #### 5 8410-2 ####[facility]ORYCLIA [id number] [place] [address] [place] Hemoglobin (Bld) [Mass/Vol] 12.1 g/dL Normal 11.5-15.5 [facility] Comment on above: Order Comment: Speci men Type: BLOOD SPECIMENOrdering Facility: [facility] Address: [address] [place] [address] Performed By: #### 5 8410-2 ####[facility]ORYCLIA [id number] [address] MCH (RBC) [Entitic mass] 29.6 pg Normal 26.0-34.0 [facility] Comment on above: Order Comment: Speci men Type: BLOOD SPECIMENOrdering Facility: [facility] Address: [address] [place] [address] Performed By: #### 5 8410-2 ####[facility]ORYCLIA [id number] [address] MCHC (RBC) [Mass/Vol] 32.6 g/dL Normal 30.5-36.0 [facility] Comment on above: Order Comment: Speci men Type: BLOOD SPECIMENOrdering Facility: [facility] Address: [address] [place] [address] Performed By: #### 5 8410-2 ####[facility]ORYCLIA [id number] [address] [place] MCV (RBC) [Entitic vol] 90.7 fL Normal 80.0-100.0 [facility] Comment on above: Order Comment: Speci men Type: BLOOD SPECIMENOrdering Facility: [facility] Address: [address] [place] [address] Performed By: #### 5 8410-2 ####[facility]ORYCLIA [id number] [address] Nucleated RBC (Bld) [#/Vol] 10*3/uL Normal <0.01 [facility] Comment on above: Order Comment: Speci men Type: BLOOD SPECIMENOrdering Facility: [facility] Address: [address] [place] [address] Performed By: #### 5 8410-2 ####[facility]ORYCLIA [id number] [address] Platelet mean volume (Bld) [Entitic vol] 10.8 fL Normal 9.0-12.7 [facility] Comment on above: Order Comment: Speci men Type: BLOOD SPECIMENOrdering Facility: [facility] Address: [address] [place], [place] [address] Performed By: #### 5 8410-2 ####[facility]ORYCLIA [id number] [place] [id number] [facility] Platelets (Bld) [#/Vol] 226 10*3/uL Normal 150-400 [facility] Comment on above: Order Comment: Speci men Type: BLOOD SPECIMENOrdering Facility: [facility] Address: [address] [place] [address] Performed By: #### 5 8410-2 ####[facility]ATORYCLIA [id number] [place] [address] [place] RBC (Bld) [#/Vol] 4.09 10*6/uL Normal 3.90-5.20 [facility] Comment on above: Order Comment: Speci men Type: BLOOD SPECIMENOrdering Facility: [facility] Address: [address] [place] [address] Performed By: #### 5 8410-2 ####[facility]ATORYCLIA [id number] [address] [place] WBC (Bld) [#/Vol] 16.12 10*3/uL High 3.70-11.00 [facility] Comment on above: Order Comment: Speci men Type: BLOOD SPECIMENOrdering Facility: [facility] Address: [address] [place] [address] Performed By: #### 5 8410-2 ####[facility] LABORATORYCLIA [id number] [place] [id number] [facility] CT ABD/PEL WO IVCONon 2024 CT ABD/PEL WO IVCON * * *Final Report* * * DATE OF EXAM: Mar 17 2025 3:57PM [facility] 0531 - CT ABD/PEL WO IVCON / [...] and fat stranding in the left pelvis Sandstone Inspector Repairer: PSCB Transcribe Date/Time: Mar 17 2025 3:58P Dictated by : RINKU JOSHI MD This examination was interpreted and the report reviewed and electronically signed by: RINKU JOSHI MD on Mar 17 2025 4:08PM EST [id number] Normal [facility] Comprehensive metabolic 2000 panelon 03-17-2025 Albumin [Mass/Vol] 3.8 g/dL Low 3.9-4.9 [facility] Comment on above: Order Comment: Speci men Type: BLOOD SPECIMEN Ordering Facility: [facility] Address: [address] [place] [address] Performed By: #### 5 7021-8 #### [facility] CLIA [id number] [address] [place] [address] [place] ALP [Catalytic activity/Vol] 97 U/L Normal 34-123 [facility] Comment on above: Order Comment: Speci men Type: BLOOD SPECIMEN Ordering Facility: [facility] Address: [address] [place] [address] Performed By: #### 5 7021-8 #### [facility] CLIA [id number] [address] [place] [address] [place] ALT With P-5'-P [Catalytic activity/Vol] 28 U/L Normal 7-38 [facility] Comment on above: Order Comment: Speci men Type: BLOOD SPECIMEN Ordering Facility: [facility] Address: [address] [place] [address] Performed By: #### 5 7021-8 #### [facility] CLIA [id number] [address] [place] [address] [place] Anion gap [Moles/Vol] 14 mmol/L Normal 8-15 [facility] Comment on above: Order Comment: Speci men Type: BLOOD SPECIMEN Ordering Facility: [facility] Address: [address] [place] [address] Performed By: #### 5 7021-8 #### [facility] CLIA [id number] [address] [place] [address] [place] AST With P-5'-P [Catalytic activity/Vol] Normal [facility] Comment on above: Order Comment: Speci men Type: BLOOD SPECIMEN Ordering Facility: [facility] Address: [address] [place] [address] Result Comment: Unab le to assay due to interference from hemolysis. Suggest reorder as clinically indicated. Performed By: #### 5 7021-8 #### [facility] CLIA [id number] [address] [place] [address] [place] Bilirubin [Mass/Vol] 1.1 mg/dL Normal 0.2-1.3 [facility] Comment on above: Order Comment: Speci men Type: BLOOD SPECIMEN Ordering Facility: [facility] Address: [address] [place] [address] Performed By: #### 5 7021-8 #### [facility] CLIA [id number] [address] [place] [address] [place] Calcium [Mass/Vol] 10.1 mg/dL Normal 8.5-10.2 [facility] Comment on above: Order Comment: Speci men Type: BLOOD SPECIMEN Ordering Facility: [facility] Address: [address] [place] [address] Performed By: #### 5 7021-8 #### [facility] CLIA [id number] [address] [place] [address] [place] Chloride [Moles/Vol] 98 mmol/L Normal 98-107 [facility] Comment on above: Order Comment: Speci men Type: BLOOD SPECIMEN Ordering Facility: [facility] Address: [address] [place] [address] Performed By: #### 5 7021-8 #### [facility] CLIA [id number] [address] [place] [address] [place] CO2 [Moles/Vol] 24 mmol/L Normal 22-30 [facility] Comment on above: Order Comment: Speci men Type: BLOOD SPECIMEN Ordering Facility: [facility] Address: [address] [place] [address] Performed By: #### 5 7021-8 #### [facility] CLIA [id number] [address] [place] [address] [place] Creatinine [Mass/Vol] 0.91 mg/dL Normal 0.58-0.96 [facility] Comment on above: Order Comment: Speci men Type: BLOOD SPECIMEN Ordering Facility: [facility] Address: [address] [place] [address] Performed By: #### 5 7021-8 #### [facility] CLIA [id number] [address] [place] [address] [place] Creatinine and Glomerular filtration rate.predicted panel (S/P/Bld) 68 mL/min/1.73m??? Normal >=60 [facility] Comment on above: Order Comment: Harry lunsford Type: BLOOD SPECIMEN Ordering Facility: [facility] Address: [address] [place] [address] Result Comment: Hortensia mated Glomerular Filtration Rate [...] GFR. Performed By: #### 5 7021-8 #### [facility] CLIA [id number] [address] [place] [address] [place] Glucose [Mass/Vol] 139 mg/dL High 74-99 [facility] Comment on above: Order Comment: Harry lunsford Type: BLOOD SPECIMEN Ordering Facility: [facility] Address: [address] [place] [address] Result Comment: The [place] [employer] (ADA) provides guidance for cutoff [...] Standards of Medical Care in Diabetes 2016, [place] [employer]. Diabetes Care. 2016.39(Suppl 1). Performed By: #### 5 7021-8 #### [facility] CLIA [id number] [address] [place] [address] [place] Potassium [Moles/Vol] 4.1 mmol/L Normal 3.7-5.1 [facility] Comment on above: Order Comment: Speci men Type: BLOOD SPECIMEN Ordering Facility: [facility] Address: [address] [place] [address] Performed By: #### 5 7021-8 #### [facility] CLIA [id number] [address] [place] [address] [place] Protein [Mass/Vol] 7.8 g/dL Normal 6.3-8.0 [facility] Comment on above: Order Comment: Speci men Type: BLOOD SPECIMEN Ordering Facility: [facility] Address: [address] [place] [address] Performed By: #### 5 7021-8 #### [facility] CLIA [id number] [address] [place] [address] [place] Sodium [Moles/Vol] 136 mmol/L Normal 136-144 [facility] Comment on above: Order Comment: Speci men Type: BLOOD SPECIMEN Ordering Facility: [facility] Address: [address] [place] [address] Performed By: #### 5 7021-8 #### [facility] CLIA [id number] [address] [place] [address] [place] Urea nitrogen [Mass/Vol] 12 mg/dL Normal 7-21 [facility] Comment on above: Order Comment: Speci men Type: BLOOD SPECIMEN Ordering Facility: [facility] Address: [address] [place] [address] Performed By: #### 5 7021-8 #### [facility] CLIA [id number] [address] [place] [address] [place] ED NOTEon 03-17-2025 ED NOTE HNO ID: [id number] Author: MARIELA FAY RN Service: Emergency Medicine Author Type: Registered Nurse Type: ED Notes Filed: 03/17/2025 20:21 Note Text: [facility] present at bedside. Report given to transfer team. Normal [facility] ED NOTE HNO ID: [id number] Author: MARIELA FAY RN Service: ? Author Type: Registered Nurse Type: ED Notes Filed: 03/17/2025 19:27 Note Text: ETA 2100/2130 [facility] ED NOTE HNO ID: [id number] Author: MARIELA FAY RN Service: Emergency Medicine Author Type: Registered Nurse Type: ED Notes Filed: 03/17/2025 19:25 Note Text: -------- Summary: Bed Assignment/Transport ETA -------- Received Bed Assignment: Accepting Hospital: [facility] Bed Assignment: 2 South, 222-2 Nurse Report: [phone] [facility] ETA 90-120 minutes [facility] ED NOTE HNO ID: [id number] Author: MARIELA FAY RN Service: Emergency Medicine Author Type: Registered Nurse Type: ED Notes Filed: 03/17/2025 19:16 Note Text: Change of shift report received from Lokesh Osorio RN. I assumed patient care at this time. [facility] ED NOTE HNO ID: [id number] Author: LOKESH TORRES RN Service: ? Author [...] that is what is going on now. [facility] ED PROV NOTEon 03-17-2025 ED PROV NOTE HNO ID: [id number] Author: MEHRDAD VELASQUEZ MD Service: Emergency Medicine [...] breast PAST SURGICAL HISTORY OF 07/2008 had fatty tumor removed from back PAST SURGICAL HISTORY OF [...] Heart Brother (more content not included)... Normal [facility] HISTORY PHYSICALon HISTORY PHYSICAL HNO ID: [id number] Author: IVY SANTIAGO PA-C Service: Hospital Medicine Author Type: Physician Director Of Workforce Development Type: H&P Filed: 03/17/2025 21:31 Note Text: [...] 8:41 PM Primary Care Physician: Leonora Davalos APRN.[facility] NIGHT AND WEEKEND COVERAGE: [facility] COVERAGE: Days: [phone], please page attending physician. Nights: [phone], please page [facility] Night coverage pager [phone]. Subjective CHIEF COMPLAINT: Abdominal pain HPI: This [...] changes, peripheral edema, paresthesias or focal weaknesses. [facility] ED Course: HR 100. WBC 18.52, ANC 12.59 otherwise labs unremarkable. Lactate normal. Blood Cx x2 pending. CT AP with inflammatory changes surrounding a 2 cm outpouching in the mid sigmoid colon suggestive of diverticulitis although difficult to assess for possible abscess. Received IV Rocephin, Flagyl, Morphine and IVF in the ED. The patient was transferred to [facility] under Medicine for further management of acute [...] non-specific inflammation (more content not included)... Normal [facility] Lipase SerPl-cCncon 03-17-20 25 Lipase [Catalytic activity/Vol] 14 U/L Low 16-61 [facility] Comment on above: Order Comment: Speci men Type: BLOOD SPECIMEN Ordering Facility: [facility] Address: [address] [id number] Performed By: #### 5 7021-8 #### [facility] CLIA [id number] [address] [place], [place] [id number] [place] PT panel Coag (PPP)on 2024 INR Coag (PPP) [Relative time] 1.2 {INR} Normal 0.9-1.3 [facility] Comment on above: Order Comment: Speci [facility] Type: BLOOD SPECIMEN Ordering Facility: [facility] Address: [address] [place] [address] Result Comment: Chacha min K Antagonist (VKA) Therapeutic Range: INR 2 to 3 (Target INR of 2.5) Note: For patients treated with VKA drugs, such as warfarin, the [place] [employer] 2012 Guideline recommends [...] to 3.5 (target INR of 3). Srinivasan GH, et al. Chest 2012, 141:7S-47S Анна DOMINGUEZ et al. [facility] 2017, 70: 252-289 Performed By: #### 1 9123-9, 21656-4 #### [facility] CLIA [id number] [address] STATES [facility] PT Coag (PPP) [Time] 13.2 s High 9.7-13.0 [facility] Comment on above: Order Comment: Harry lunsford Type: BLOOD SPECIMEN Ordering Facility: [facility] Address: [address] [place] [address] Performed By: #### 1 9123-9, 36968-4 #### [facility] CLIA [id number] [address] PTT, ANTICOAGULANT THERAPYon 03-17-2025 aPTT Coag (PPP) [Time] 28.1 s Normal 23.0-32.4 [facility] Comment on above: Order Comment: Harry lunsford Type: BLOOD SPECIMEN Ordering Facility: [facility] Address: [address] [place] [address] Performed By: #### 1 9123-9, 30407-0 #### [facility] CLIA [id number] [address] SEPSIS LACTATE W/ REFLEX (IN ITIAL)on 03-17-2025 Lactate [Moles/Vol] 1.7 mmol/L Normal <=2.0 [facility] Comment on above: Order Comment: Speci men Type: BLOOD SPECIMEN Ordering Facility: [facility] Address: [address] [place] [address] Performed By: #### S LACTR #### [facility] CLIA [id number] [address] [place] [address] [place] Urinalysis complete panel (U )on 03-17-2025 Bacteria LM.HPF (Urine sed) [#/Area] Many Abnormal None Seen [facility] Comment on above: Order Comment: Speci men Type: BLOOD SPECIMEN Ordering Facility: [facility] Address: [address] [place] [address] Performed By: #### 5 7021-8 #### [facility] CLIA [id number] [address] STATES [place] Bilirubin Ql (U) 1+ Abnormal Negative [facility] Comment on above: Order Comment: Speci men Type: BLOOD SPECIMEN Ordering Facility: [facility] Address: [address] [place] [address] Result Comment: Sugg est correlation with clinical findings and serum bilirubin if clinically indicated. Performed By: #### 5 7021-8 #### [facility] CLIA [id number] [address] [place] [address] [place] Clarity (Unsp spec) Slightly Cloudy Abnormal Clear [facility] Comment on above: Order Comment: Speci men Type: BLOOD SPECIMEN Ordering Facility: [facility] Address: [address] [place] [address] Performed By: #### 5 7021-8 #### [facility] CLIA [id number] [address] [place] [address] [facility] Color (U) Yellow Normal Yellow [facility] Comment on above: Order Comment: Speci men Type: BLOOD SPECIMEN Ordering Facility: [facility] Address: [address] [place] [address] Performed By: #### 5 7021-8 #### [facility] CLIA [id number] [address] [place] [address] [facility] Epithelial cells LM.HPF (Urine sed) [#/Area] Many Normal [facility] Comment on above: Order Comment: Speci men Type: BLOOD SPECIMEN Ordering Facility: [facility] Address: [address] [place] [address] Performed By: #### 5 7021-8 #### [facility] CLIA [id number] [address] [place] [address] [facility] Glucose Test strip (U) [Mass/Vol] Negative Normal Negative [facility] Comment on above: Order Comment: Speci men Type: BLOOD SPECIMEN Ordering Facility: [facility] Address: [address] [place] [address] Performed By: #### 5 7021-8 #### [facility] CLIA [id number] [address] [place] [address] [facility] Hemoglobin Ql (U) Negative Normal Negative [facility] Comment on above: Order Comment: Speci men Type: BLOOD SPECIMEN Ordering Facility: [facility] Address: [address] [place] [address] Performed By: #### 5 7021-8 #### [facility] CLIA [id number] [address] [place] [address] [facility] Ketones Ql (U) Negative Normal Negative [facility] Comment on above: Order Comment: Speci men Type: BLOOD SPECIMEN Ordering Facility: [facility] Address: [address] [place] [address] Performed By: #### 5 7021-8 #### [facility] CLIA [id number] [address] [place] [address] [facility] Leukocyte esterase Test strip Ql (U) Trace Abnormal Negative [facility] Comment on above: Order Comment: Speci men Type: BLOOD SPECIMEN Ordering Facility: [facility] Address: [address] [place] [address] Performed By: #### 5 7021-8 #### [facility] CLIA [id number] [address] [place] [address] [facility] Nitrite Ql (U) Negative Normal Negative [facility] Comment on above: Order Comment: Speci men Type: BLOOD SPECIMEN Ordering Facility: [facility] Address: [address] [place] [address] Performed By: #### 5 7021-8 #### [facility] CLIA [id number] [address] [place] [address] [place] pH (U) 6.0 [pH] Normal 5.0-8.0 [facility] Comment on above: Order Comment: Speci men Type: BLOOD SPECIMEN Ordering Facility: [facility] Address: [address] [place] [address] Performed By: #### 5 7021-8 #### [facility] CLIA [id number] [address] Protein (U) [Mass/Vol] 1+ Abnormal Negative [facility] Comment on above: Order Comment: Speci men Type: BLOOD SPECIMEN Ordering Facility: [facility] Address: [address] [place] [address] Performed By: #### 5 7021-8 #### [facility] CLIA [id number] [address] [place] [address] RBC LM.HPF (Urine sed) [#/Area] 0-3 /HPF Normal 0-3 /HPF [facility] Comment on above: Order Comment: Speci men Type: BLOOD SPECIMEN Ordering Facility: [facility] Address: [address] [place] [address] Performed By: #### 5 7021-8 #### [facility] CLIA [id number] [address] OF [place] Specific gravity (U) [Rel density] 1.010 Normal 1.005-1.030 [facility] Comment on above: Order Comment: Speci men Type: BLOOD SPECIMEN Ordering Facility: [facility] Address: [address] [place] [address] Performed By: #### 5 7021-8 #### [facility] CLIA [id number] [address] [place] [address] [place] Urobilinogen Ql (U) 2.0 EU/dL Abnormal 0.2-1.0 EU/dL [facility] Comment on above: Order Comment: Harry lunsford Type: BLOOD SPECIMEN Ordering Facility: [facility] Address: [address] [place] [address] Performed By: #### 5 7021-8 #### [facility] CLIA [id number] [address] [id number] [place] WBC LM.HPF (Urine sed) [#/Area] 6-10 /HPF Abnormal 0-5 /HPF [facility] Comment on above: Order Comment: Harry lunsford Type: BLOOD SPECIMEN Ordering Facility: [facility] Address: [address] [place] [address] Performed By: #### 5 7021-8 #### [facility] CLIA [id number] [address] [id number] [facility] HbA1c (Bld)on 02-12-2025 Average glucose Estimated from glycated hemoglobin (Bld) [Mass/Vol] 140 mg/dL Normal [facility] Comment on above: Order Comment: Harry lunsford Type: BLOOD SPECIMEN Ordering Facility: [facility] Address: [address] [place] [address] Result Comment: eAG: (Estimated average glucose) is a calculated value from HgbA1c and is client care representative of the average blood glucose level in the last 2-3 month period. Performed By: #### 5 7021-8 #### [facility] CLIA [id number] [address] [place], [place] [phone] [place] HbA1c (Bld) [Mass fraction] 6.5 % High 4.3-5.6 [facility] Comment on above: Order Comment: Harry jonn Type: BLOOD SPECIMEN Ordering Facility: [facility] Address: [address] [place] [address] Result Comment: [place] Diabetes Association guidelines indicate that patients with HgbA1c in the range 5.7-6.4% are at increased risk for development of diabetes, and intervention by lifestyle modification may be beneficial. HgbA1c greater or equal to 6.5% is considered diagnostic of diabetes. Performed By: #### 5 7021-8 #### [facility] CLIA [id number] [address] [place] [address] [place] [facility] ABD Limited w/ Elastographyo n 02-05-2025 ABD Limited w/ Elastography [facility] Imaging Services [address] [place] [address] ABD Limited w/ Elastography MR#: [id number] Acct: [id number] Name: ALEXANDRA BELLA Rep #: [id number] : 1955 F 69 From: Pranay ramirez MD PCP: Leonora Davalos NP-Yeyo Status: [facility] CLI Study: ABD Limited w/ Elastography Date of Exam: 01/10 05/05 Exam# [id number] Ordering Dr: Antonietta Wade CRITICAL CARE RN-C PROCEDURE: ABD LIMITED W/ ELASTOGRAPHY REASON FOR [...] measurement may be in question. Reading Location: [address] [address] CC: VANESSA Davalos; VANESSA Wade Sandstone Inspector Repairer: Signed Normal [facility] L7000.0750on 01-29-2025 P ELASTASE,FECA > 800 Normal >200 [facility] Comment on above: Result Comment: Resu lt Units: ug Elast./g Severe Pancreatic Insufficiency: <100 Moderate Pancreatic Insufficiency: 100 - 200 Normal: >200 Performed By: #### L 7000.0750, L7000.0700 ####[facility] [address] [place], [address] Calprotectin, Stoolon [address] 100 ug/g Normal 0-120 [facility] Comment on above: Result Comment: Conc entration Interpretation Follow-Up < 5 - 50 ug/g Normal None >50 -120 ug/g Borderline Re-evaluate in 4-6 weeks >120 ug/g Abnormal Repeat as clinically indicated Performed at: [address] [id number] Wheat Inspector: Alla Silver MD, Phone: [phone] Performed By: #### L 7000.0750, L7000.0700 ####[facility] [address] [place], [place], [address] L5500.0550on 01-25-2025 BEEF <0.10 Normal Class 0 [facility] Comment on above: Performed By: #### L 503.5510, L501.6710, L500.4050, L100.0100, L300.3900, L5500.0550 #### [facility] [address] [place], [place], [address] CHOCOLATE <0.10 Normal Class 0 [facility] Comment on above: Performed By: #### L 503.5510, L501.6710, L500.4050, L100.0100, L300.3900, L5500.0550 #### [facility] [address] [place], [place], [id number] CODFISH <0.10 Normal Class 0 [facility] Comment on above: Performed By: #### L 503.5510, L501.6710, L500.4050, L100.0100, L300.3900, L5500.0550 #### [facility] [address] [place], [place], [id number] COMMENT Comment Normal . [facility] Comment on above: Result Comment: Jay presley [...] 503.5510, L501.6710, L500.4050, L100.0100, L300.3900, L5500.0550 #### [facility] [address] [place], [address] CORN <0.10 Normal Class 0 [facility] Comment on above: Performed By: #### L 503.5510, L501.6710, L500.4050, L100.0100, L300.3900, L5500.0550 #### [facility] [address] [place], [address] EGG, WHOLE <0.10 Normal Class 0 [facility] Comment on above: Result Comment: Perf ormed at: [facility] Lab[address] [id number] Wheat Inspector: Alla Silver MD, Phone: [phone] Performed By: #### L 503.5510, L501.6710, L500.4050, L100.0100, L300.3900, L5500.0550 #### [facility] [address] [place], [address] MILK (COW) <0.10 Normal Class 0 [facility] Comment on above: Performed By: #### L 503.5510, L501.6710, L500.4050, L100.0100, L300.3900, L5500.0550 #### [facility] [address] [place], [address] MUSSELS <0.10 Normal Class 0 [facility] Comment on above: Performed By: #### L 503.5510, L501.6710, L500.4050, L100.0100, L300.3900, L5500.0550 #### [facility] [address] [place], [address] PEANUT <0.10 Normal Class 0 [facility] Comment on above: Performed By: #### L 503.5510, L501.6710, L500.4050, L100.0100, L300.3900, L5500.0550 #### [facility] [address] [place], [address] PORK <0.10 Normal Class 0 [facility] Comment on above: Performed By: #### L 503.5510, L501.6710, L500.4050, L100.0100, L300.3900, L5500.0550 #### [facility] [address] [place], [address] SALMON <0.10 Normal Class 0 [facility] Comment on above: Performed By: #### L 503.5510, L501.6710, L500.4050, L100.0100, L300.3900, L5500.0550 #### [facility] [address] [place], [address] SHRIMP <0.10 Normal Class 0 [facility] Comment on above: Performed By: #### L 503.5510, L501.6710, L500.4050, L100.0100, L300.3900, L5500.0550 #### [facility] [address] [place], [address] SOYBEAN <0.10 Normal Class 0 [facility] Comment on above: Performed By: #### L 503.5510, L501.6710, L500.4050, L100.0100, L300.3900, L5500.0550 #### [facility] [address] [place], [facility] TUNA <0.10 Normal Class 0 [facility] Comment on above: Performed By: #### L 503.5510, L501.6710, L500.4050, L100.0100, L300.3900, L5500.0550 #### [facility] [address] [place], [address] WHEAT <0.10 Normal Class 0 [facility] Comment on above: Performed By: #### L 503.5510, L501.6710, L500.4050, L100.0100, L300.3900, L5500.0550 #### [facility] [address] [place], [address] Calprotectin stoolOrdered By : Antonietta Wade on 01-24-2025 Calprotectin stool 100 ug/g 0-120 [facility] Comment on above: Concentration Interp retation Follow-Up< 5 - 50 ug/g Normal None>50 -120 ug/g Borderline Re-evaluate in 4-6 weeks >120 ug/g Abnormal Repeat as clinically indicatedPerformed at: - [facility] [place], [place] [id number] Director: Alla Silver MD, Phone: [phone] Chest without Contraston Chest without Contrast [facility] Services [address] [place], [place] [address] Chest without Contrast MR#: [id number] Acct: [id number] Name: ALEXANDRA BELLA Rep #: [id number] : 1955 F 69 From: Pranay ramirez MD PCP: VANESSA Gilliland Status: REG CLI Study: Chest without Contrast Date of Exam: 01/24/25 Exam# [id number] Ordering Dr: Ada Wheeler CRITICAL CARE RN- C PROCEDURE: CHEST WITHOUT CONTRAST 01/24/2025 REASON [...] of the right middle lobe. Reading Location: [facility] CC: VANESSA Davalos; Ada Wheeler NP Sandstone Inspector Repairer: Signed Normal [facility] Stool pancreatic elastase me asurement (mass/mass)Ordered By: Antonietta Wade on 01-24-2025 Elastase.pancreatic (Stl) [Mass/Mass] > 800 >200 [facility] Comment on above: Result Units: ug Jazm[address] st./g Severe Pancreatic Insufficiency: <100 Moderate Pancreatic Insufficiency: 100 - 200 Normal: >200 Absolute lymphocyte countOrd ered By: Antonietta Wade on 01-23-2025 Lymphocytes Auto (Unsp spec) [#/Vol] 2.64 10*3/uL 0.83-4.51 [facility] Absolute neutrophil countOrd ered By: Antonietta Wade on 01-23-2025 Neutrophils (Bld) [#/Vol] 4.4 10*3/uL 2.0-7.7 [facility] Ammoniaon 01-23-2025 Ammonia (P) [Moles/Vol] 35.0 umol/L Normal [facility] Comment on above: Performed By: #### L 503.5510, L501.6710, L500.4050, L100.0100, L300.3900, L5500.0550 #### [facility] [address] [place], [address] Anion gap in Serum or Plasma Ordered By: Antonietta Wade on 01-23-2025 Anion gap [Moles/Vol] 13 mmol/L - [facility] Automated lymphocyte count a s percentage of total leukocytesOrdered By: Antonietta Wade on 01-23-2025 Lymphocytes/100 WBC Auto (Unsp spec) 34.2 % - [facility] BUN/creatinine ratioOrdered By: Antonietta Wade on 01-23-2025 Urea nitrogen/Creatinine [Mass ratio] 24.9 mg/mg High - [facility] Basophil percentageOrdered B y: Antonietta Wade on 01-23-2025 Basophils/100 WBC (Bld) 0.4 % 0-1 [facility] Bilirubin, totalOrdered By: Antonietta Wade on 01-23-2025 Bilirubin [Mass/Vol] 0.34 mg/dL 0.00-1.[address] [facility] CBC W/Diff, Automatedon 05-09 15-2024 Absolute Lymph 2.64 X10 3/uL Normal 0.83-4.51 [facility] Comment on above: Performed By: #### L 503.5510, L501.6710, L500.4050, L100.0100, L300.3900, L5500.0550 #### [facility] [address] [place], [address] Absolute Neut 4.4 X10 3/uL Normal 2.0-7.7 [facility] Comment on above: Performed By: #### L 503.5510, L501.6710, L500.4050, L100.0100, L300.3900, L5500.0550 #### [facility] [address] [place], [address] Basophils/100 WBC (Bld) 0.4 % Normal 0-1 [facility] Comment on above: Performed By: #### L 503.5510, L501.6710, L500.4050, L100.0100, L300.3900, L5500.0550 #### [facility] [address] [place], [address] Eosinophils/100 WBC (Bld) 1.3 % Normal 0-5 [facility] Comment on above: Performed By: #### L 503.5510, L501.6710, L500.4050, L100.0100, L300.3900, L5500.0550 #### [facility] [address] [place], [address] Erythrocyte distribution width (RBC) [Ratio] 13.4 % Normal 11.6-14.6 [facility] Comment on above: Performed By: #### L 503.5510, L501.6710, L500.4050, L100.0100, L300.3900, L5500.0550 #### [facility] [address] [place], [address] Hematocrit (Bld) [Volume fraction] 42.3 % Normal 37-47 [facility] Comment on above: Performed By: #### L 503.5510, L501.6710, L500.4050, L100.0100, L300.3900, L5500.0550 #### [facility] [address] [place], [address] Hemoglobin (Bld) [Mass/Vol] 14.1 g/dL Normal 12.0-15.0 [facility] Comment on above: Performed By: #### L 503.5510, L501.6710, L500.4050, L100.0100, L300.3900, L5500.0550 #### [facility] [address] [place], [address] IG% 0.100 Normal 0.0-0.9 [facility] Comment on above: Result Comment: IG% - Immature Granulocytes (promyelocytes, myelocytes and metamyelocytes) > 1% indicates that a LEFT SHIFT is Present. Performed By: #### L 503.5510, L501.6710, L500.4050, L100.0100, L300.3900, L5500.0550 #### [facility] [address] [place], [address] Lymphocytes/100 WBC (Bld) 34.2 % Normal 19-41 [facility] Comment on above: Performed By: #### L 503.5510, L501.6710, L500.4050, L100.0100, L300.3900, L5500.0550 #### [facility] [address] [place], [address] MCH (RBC) [Entitic mass] 29.9 pg Normal 27.0-32.0 [facility] Comment on above: Performed By: #### L 503.5510, L501.6710, L500.4050, L100.0100, L300.3900, L5500.0550 #### [facility] [address] [place], [address] MCHC (RBC) [Mass/Vol] 33.3 g/dL Normal 32-36 [facility] Comment on above: Performed By: #### L 503.5510, L501.6710, L500.4050, L100.0100, L300.3900, L5500.0550 #### [facility] [address] [place], [address] MCV (RBC) [Entitic vol] 89.8 fL Normal 81-99 [facility] Comment on above: Performed By: #### L 503.5510, L501.6710, L500.4050, L100.0100, L300.3900, L5500.0550 #### [facility] [address] [place], [address] Monocytes/100 WBC (Bld) 6.4 % Normal 0-10 [facility] Comment on above: Performed By: #### L 503.5510, L501.6710, L500.4050, L100.0100, L300.3900, L5500.0550 #### [facility] [address] [place], [address] Neutrophils/100 WBC (Bld) 57.6 % Normal 47-70 [facility] Comment on above: Performed By: #### L 503.5510, L501.6710, L500.4050, L100.0100, L300.3900, L5500.0550 #### [facility] [address] [place], [address] Nucleated RBC (Bld) [#/Vol] 0 10*3/uL Normal 0-5 [facility] Comment on above: Performed By: #### L 503.5510, L501.6710, L500.4050, L100.0100, L300.3900, L5500.0550 #### [facility] [address] [place], [address] Platelet mean volume (Bld) [Entitic vol] 11.5 fL Normal 6.2-12.0 [facility] Comment on above: Performed By: #### L 503.5510, L501.6710, L500.4050, L100.0100, L300.3900, L5500.0550 #### [facility] [address] [place], [address] Platelets (Bld) [#/Vol] 199 10*3/uL Normal 150-450 [facility] Comment on above: Performed By: #### L 503.5510, L501.6710, L500.4050, L100.0100, L300.3900, L5500.0550 #### [facility] [address] [place], [address] RBC (Bld) [#/Vol] 4.71 10*6/uL Normal 4.2-5.4 [facility] Comment on above: Performed By: #### L 503.5510, L501.6710, L500.4050, L100.0100, L300.3900, L5500.0550 #### [facility] [address] [place], [address] RDW SD 44.2 fl High 35.1-43.9 [facility] Comment on above: Performed By: #### L 503.5510, L501.6710, L500.4050, L100.0100, L300.3900, L5500.0550 #### [facility] [address] [place], [address] WBC (Bld) [#/Vol] 7.7 10*3/uL Normal 4.4-11.0 [facility] Comment on above: Performed By: #### L 503.5510, L501.6710, L500.4050, L100.0100, L300.3900, L5500.0550 #### [facility] [address] [place], [address] CRPon 01-23-2025 C-REACTIVE PROT < 3.00 Normal 0.0-3.0 [facility] Comment on above: Performed By: #### L 503.5510, L501.6710, L500.4050, L100.0100, L300.3900, L5500.0550 #### [facility] [address] [place], [address] Carbon dioxide, total [Moles /volume] in Central venous bloodOrdered By: Antonietta Wade on 01-23-2025 CO2 [Moles/Vol] 20.2 mmol/L Low 21.0-32.0 [facility] Chloride assayOrdered By: Colin Wade on 01-23-2025 Chloride [Moles/Vol] 107 mmol/L 98-[address] [facility] Comprehensive Metabolic Prof ilon 01-23-2025 Albumin [Mass/Vol] 4.0 g/dL Normal 3.4-4.8 [facility] Comment on above: Performed By: #### L 503.5510, L501.6710, L500.4050, L100.0100, L300.3900, L5500.0550 #### [facility] [address] [place], [address] Albumin/Globulin [Mass ratio] 1.3 {ratio} Normal 0.9-2.4 [facility] Comment on above: Performed By: #### L 503.5510, L501.6710, L500.4050, L100.0100, L300.3900, L5500.0550 #### [facility] [address] [place], [address] ALK PHOS 109 U/L High 35-104 [facility] Comment on above: Performed By: #### L 503.5510, L501.6710, L500.4050, L100.0100, L300.3900, L5500.0550 #### [facility] [address] [place], [address] ALT [Catalytic activity/Vol] 97 U/L High <=34 [facility] Comment on above: Performed By: #### L 503.5510, L501.6710, L500.4050, L100.0100, L300.3900, L5500.0550 #### [facility] [address] [place], [address] AST [Catalytic activity/Vol] 74 U/L High <=31 [facility] Comment on above: Performed By: #### L 503.5510, L501.6710, L500.4050, L100.0100, L300.3900, L5500.0550 #### [facility] [address] [place], [address] Bilirubin [Mass/Vol] 0.34 mg/dL Normal 0.00-1.[address] [facility] Comment on above: Performed By: #### L 503.5510, L501.6710, L500.4050, L100.0100, L300.3900, L5500.0550 #### [facility] [address] [place], [address] BUN/CRE 24.9 RATIO High 10-20 [facility] Comment on above: Performed By: #### L 503.5510, L501.6710, L500.4050, L100.0100, L300.3900, L5500.0550 #### [facility] [address] [place], [address] Calcium [Mass/Vol] 9.7 mg/dL Normal 7.6-11.0 [facility] Comment on above: Performed By: #### L 503.5510, L501.6710, L500.4050, L100.0100, L300.3900, L5500.0550 #### [facility] [address] [place], [address] Chloride [Moles/Vol] 107 mmol/L Normal 98-[address] [facility] Comment on above: Performed By: #### L 503.5510, L501.6710, L500.4050, L100.0100, L300.3900, L5500.0550 #### [facility] [address] [place], [address] CO2 [Moles/Vol] 20.2 mmol/L Low 21.0-32.0 [facility] Comment on above: Performed By: #### L 503.5510, L501.6710, L500.4050, L100.0100, L300.3900, L5500.0550 #### [facility] [address] [place], [address] Creatinine [Mass/Vol] 0.82 mg/dL Normal 0.70-1.20 [facility] Comment on above: Performed By: #### L 503.5510, L501.6710, L500.4050, L100.0100, L300.3900, L5500.0550 #### [facility] [address] [place], [address] GAP 13 Normal 5-15 [facility] Comment on above: Performed By: #### L 503.5510, L501.6710, L500.4050, L100.0100, L300.3900, L5500.0550 #### [facility] [address] [place], [address] GFR/1.73 sq M.predicted among non-blacks MDRD (S/P/Bld) [Vol rate/Area] 77 mL/min/{1.73_m2} Normal >60 [facility] Comment on above: Result Comment: mL/m in/1.73m2 CKD-EPI Creatinine Equation (2020) Performed By: #### L 503.5510, L501.6710, L500.4050, L100.0100, L300.3900, L5500.0550 #### [facility] [address] [place], [address] Globulin (S) [Mass/Vol] 3.2 g/dL Normal 2.2-4.2 [facility] Comment on above: Performed By: #### L 503.5510, L501.6710, L500.4050, L100.0100, L300.3900, L5500.0550 #### [facility] [address] [place], [address] Glucose [Mass/Vol] 162 mg/dL High 70-99 [facility] Comment on above: Performed By: #### L 503.5510, L501.6710, L500.4050, L100.0100, L300.3900, L5500.0550 #### [facility] [address] [place], [address] Potassium [Moles/Vol] 4.0 mmol/L Normal 3.3-5.1 [facility] Comment on above: Performed By: #### L 503.5510, L501.6710, L500.4050, L100.0100, L300.3900, L5500.0550 #### [facility] [address] [place], [address] Sodium [Moles/Vol] 140 mmol/L Normal 133-145 [facility] Comment on above: Performed By: #### L 503.5510, L501.6710, L500.4050, L100.0100, L300.3900, L5500.0550 #### [facility] [address] [place], [address] T PROT 7.2 g/dL Normal 5.9-8.4 [facility] Comment on above: Performed By: #### L 503.5510, L501.6710, L500.4050, L100.0100, L300.3900, L5500.0550 #### [facility] [address] [place], [address] Urea nitrogen [Mass/Vol] 20 mg/dL High 4-19 [facility] Comment on above: Performed By: #### L 503.5510, L501.6710, L500.4050, L100.0100, L300.3900, L5500.0550 #### [facility] [address] [place], [address] Eosinophil percentageOrdered By: Antonietta Wade on 01-23-2025 Eosinophils/100 WBC (Bld) 1.3 % 0-5 [facility] Erythrocyte distribution wid th ratioOrdered By: Antonietta Wade on 01-23-2025 Erythrocyte distribution width (RBC) [Ratio] 13.4 % 11.6-14.6 [facility] Erythrocyte distribution wid th standard deviationOrdered By: Antonietta Wade on 01-23-2025 Erythrocyte distribution width (RBC) [Ratio] 44.2 fl High 35.1-43.9 [facility] Gastroenterology Visit Repor ton 01-23-2025 Gastroenterology Visit Report [facility] [address] [place] [address] OFFICE VISIT Date of Service: 01/23/25 MR#: [id number] Acct: [id number] Name: ALEXANDRA BELLA Chi Rep #: [id number] : 1955 Provider: VANESSA cole Age/Sex: 69/F Location: [facility] Status: Signed Intake Vital Signs 01/10/25 12:45 [...] meter (FreeStyle #1 ea 01/06/20 01/10/25 Rx [place] Lite kit) lancing device with lancets kit #1 ea 08/13/20 01/10/25 Rx ([place] Delica Plus Lancing Device kit) compress.stocking,knee,r eg,lrg [...] 01/10/25 01/23/25 Histor y subcutaneous pen injector (Mounerika) dicyclomine 10 mg capsule 10 mg PO BID PRN abdominal pain 01/23/25 Rx #60 caps famotidine 40 mg tablet 40 mg PO QHS #30 tabs 01/23/25 Rx pantoprazole 40 mg tablet,delayed 40 mg PO BID #60 tabs 01/23/25 Rx release Have you fallen in the past year?: No [facility] Medical History Body mass index (BMI) 35 or more Bilateral acute otitis media Type 2 diabetes mellitus with hyperglycemia Shingles Right bundle branch block (RBBB) Nonobstructive atherosclerosis of coronary artery Chronic diastolic (congestive) heart failure Bronchitis 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 Lichen sclerosus Lichen sclerosus Chronic sinusitis Yeast infection Hepatic fibrosis, stage 3 History of cardioversion Paroxysmal atrial fibrillation Pure hypercholesterolemia Rena Lara filter in place Rectal cancer PVD (peripheral vascular disease) Varicosities of leg Pneumonia Diverticulitis Chronic UTI (urinary tract infection) Lipoma Diarrhea Soft tissue mass Peptic ulcer disease Other chest pain UTI (urinary tract infection) Bronchitis Hypersomnia Pizarro (more content not included)... Normal [facility] Glomerular filtration rate ( GFR) estimation/1.73 sq m using serum, plasma, or whole bOrdered By: Antonietta Wade on 01-23-2025 GFR/1.73 sq M.predicted among non-blacks MDRD (S/P/Bld) [Vol rate/Area] 77 mL/min/{1.73_m2} >60 [facility] Comment on above: mL/min/1.73m2 CKD-EP I Creatinine Equation (2020) Hematocrit Auto (Bld) [Volum e fraction]Ordered By: Antonietta Wade on 01-23-2025 Hematocrit (Bld) [Volume fraction] 42.3 % 37-47 [facility] Hemoglobin measurementOrdere d By: Antonietta Wade on 01-23-2025 Hemoglobin (Bld) [Mass/Vol] 14.1 g/dL 12.0-15.0 [facility] Immature granulocytes/100 WB C Auto (Bld)Ordered By: Antonietta Wade on 01-23-2025 Immature granulocytes/100 WBC (Bld) 0.100 % 0.0-0.9 [facility] Comment on above: IG% - Immature Granu locytes (promyelocytes, myelocytes and metamyelocytes) > 1% indicates that a LEFT SHIFT is Present. International normalized rat io (INR) calculationOrdered By: Antonietta Wade on 01-23-2025 INR Coag (Bld) [Relative time] 1.3 {INR} [facility] - Chemistry and C hemistry - challengeOrdered By: Antonietta Wade on 01-23-2025 AST [Catalytic activity/Vol] 74 U/L High <32 [facility] - Miscellaneous t estsOrdered By: Antonietta Wade on 01-23-2025 Service comment (Unsp spec) [Interp] Comment . [facility] Comment on above: Levels of Specific I [...] MCV (RBC) [Entitic vol] 89.8 fL 81-99 [facility] Mean corpuscular hemoglobin (MCH) determinationOrdered By: Antonietta Wade on 01-23-2025 MCH (RBC) [Entitic mass] 29.9 pg 27.0-32.0 [facility] Mean corpuscular hemoglobin concentration (MCHC) determinationOrdered By: Antonietta Wade on 01-23-2025 MCHC (RBC) [Mass/Vol] 33.3 g/dL 32-36 [facility] Mean platelet volume determi nationOrdered By: Antonietta Wade on 01-23-2025 Platelet mean volume (Bld) [Entitic vol] 11.5 fL 6.2-12.0 [facility] Monocyte percentageOrdered B y: Antonietta Wade on 01-23-2025 Monocytes/100 WBC (Bld) 6.4 % 0-10 [facility] Neutrophil percentageOrdered By: Antonietta Wade on 01-23-2025 Neutrophils/100 WBC (Bld) 57.6 % 47-70 [facility] No Panel InformationOrdered By: Antonietta Wade on 01-23-2025 74 U/L High <32 [facility] Nucleated red blood cell per centageOrdered By: Antonietta Wade on 01-23-2025 Nucleated RBC/100 WBC (Bld) [Ratio] 0 % 0-5 [facility] Platelet countOrdered By: Colin Wade on 01-23-2025 Platelets (Bld) [#/Vol] 199 10*3/uL 150-450 [facility] Potassium measurement (mass/ volume)Ordered By: Antonietta Wade on 01-23-2025 Potassium (Unsp spec) [Mass/Vol] 4.0 mmol/L 3.3-5.1 [facility] Prothrombin Time w/INRon INR Coag (PPP) [Relative time] 1.3 {INR} Normal [facility] Comment on above: Performed By: #### L 503.5510, L501.6710, L500.4050, L100.0100, L300.3900, L5500.0550 #### [facility] [address] [place], [address] PT Coag (PPP) [Time] 16.6 s High 11.7-14.[address] [facility] Comment on above: Performed By: #### L 503.5510, L501.6710, L500.4050, L100.0100, L300.3900, L5500.0550 #### [facility] [address] [place], [address] Prothrombin timeOrdered By: Antonietta Wade on 01-23-2025 PT Coag (PPP) [Time] 16.6 s High 11.7-14.[address] [facility] RBC Auto (Bld) [#/Vol]Ordere d By: Antonietta Wade on 01-23-2025 RBC (Bld) [#/Vol] 4.71 10*6/uL 4.2-5.4 [facility] Serum beef IgE antibody assa y (units/volume)Ordered By: Antonietta Wade on 01-23-2025 Beef IgE Qn (S) <0.10 kU/L Class 0 [facility] Serum codfish IgE antibody a ssay (units/volume)Ordered By: Antonietta Wade on 01-23-2025 Codfish IgE Qn (S) <0.10 kU/L Class 0 [facility] Serum corn IgE antibody assa y (units/volume)Ordered By: Antonietta Wade on 01-23-2025 [place] IgE Qn (S) <0.10 kU/L Class 0 [facility] Serum cow milk IgE antibody assay (units/volume)Ordered By: Antonietta Wade on 01-23-2025 Cow milk IgE Qn (S) <0.10 kU/L Class 0 [facility] Serum creatinine measurement (mass/volume)Ordered By: Antonietta Wade on 01-23-2025 Creatinine [Mass/Vol] 0.82 mg/dL 0.70-1.20 [facility] Serum globulin measurementOr dered By: Antonietta Wade on 01-23-2025 Globulin (S) [Mass/Vol] 3.2 g/dL 2.2-4.2 [facility] Serum glucose measurement (m ass/volume)Ordered By: Antonietta Wade on 01-23-2025 Glucose [Mass/Vol] 162 mg/dL High 70-99 [facility] Serum or plasma C reactive p rotein measurement (mass/volume)Ordered By: Antonietta Wade on 01-23-2025 CRP [Mass/Vol] mg/L 0.0-3.0 [facility] Serum or plasma alanine kim otransferase (ALT) measurementOrdered By: Antonietta Wade on 01-23-2025 ALT [Catalytic activity/Vol] 97 U/L High <35 [facility] Serum or plasma albumin shamir urement (mass/volume)Ordered By: Antonietta Wade on 01-23-2025 Albumin [Mass/Vol] 4.0 g/dL 3.4-4.8 [facility] Serum or plasma albumin/glob ulin mass ratioOrdered By: Antonietta Wade on 01-23-2025 Albumin/Globulin [Mass ratio] 1.3 {ratio} 0.9-2.4 [facility] Serum or plasma alkaline oren sphatase measurementOrdered By: Antonietta Wade on 01-23-2025 ALP [Catalytic activity/Vol] 109 U/L High 35-104 [facility] Serum or plasma calcium shamir urement (mass/volume)Ordered By: Antonietta Wade on 01-23-2025 Calcium [Mass/Vol] 9.7 mg/dL 7.6-11.0 [facility] Serum or plasma urea nitroge n measurement (mass/volume)Ordered By: Antonietta Wade on 01-23-2025 Urea nitrogen [Mass/Vol] 20 mg/dL High 4-19 [facility] Serum peanut IgE antibody as say (units/volume)Ordered By: Antonietta Wade on 01-23-2025 Peanut IgE Qn (S) <0.10 kU/L Class 0 [facility] Serum pork IgE antibody assa y (units/volume)Ordered By: Antonietta Wade on 01-23-2025 Pork IgE Qn (S) <0.10 kU/L Class 0 [facility] Serum salmon IgE antibody as say (units/volume)Ordered By: Antonietta Wade on 01-23-2025 [place] IgE Qn (S) <0.10 kU/L Class 0 [facility] Serum soybean IgE antibody a ssay (units/volume)Ordered By: Antonietta Wade on 01-23-2025 Soybean IgE Qn (S) <0.10 kU/L Class 0 [facility] Serum tuna IgE antibody assa y (units/volume)Ordered By: Antonietta Wade on 01-23-2025 Tuna IgE Qn (S) <0.10 kU/L Class 0 [facility] Serum wheat IgE antibody ass ay (units/volume)Ordered By: Antonietta Wade on 01-23-2025 Wheat IgE Qn (S) <0.10 kU/L Class 0 [facility] Serum whole egg IgE antibody assay (units/volume)Ordered By: Antonietta Wade on 01-23-2025 Whole Egg IgE Qn (S) <0.10 kU/L Class [address] [facility] Comment on above: Performed at: [address] [id number] Director: Alla Silver MD, Phone: [phone] Sodium levelOrdered By: Maria Luisa Wade on 01-23-2025 Sodium [Moles/Vol] 140 mmol/L 133-145 [facility] Total proteinOrdered By: Omkar Wade on 01-23-2025 Protein [Mass/Vol] 7.2 g/dL 5.9-8.4 [facility] Venous blood ammonia measure mentOrdered By: Antonietta Wade on 01-23-2025 Ammonia (P) [Moles/Vol] 35.0 umol/L [facility] White blood cell (WBC) count Ordered By: Antonietta Wade on 01-23-2025 WBC (Bld) [#/Vol] 7.7 10*3/uL 4.4-11.0 [facility] 6 Minute Walk Teston 025 6 Minute Walk Test y [facility] Services/Neurology [address] [place] [address] MR#: [id number] Acct: [id number] Name: ALEXANDRA BELLA Rep #: [id number] : 1955 69 From: Yaya Gray DO Referring Dr: Marissa Camp CRITICAL CARE RN CRITICAL CARE RN-C Status: REG CLI Location: PSN Date: Sex: F C PSN 6 Minute [...] at this time. 01/10/25 0917 Date Yaya Gray DO CC: Date Dictated: 01/10/25915 Date Transcribed: 01/10/25915 Sandstone Inspector Repairer: Dr. Yaya Gray DO Signed Normal [facility] Pulmonary Visit Reporton Pulmonary Visit Report [facility] [place] [address] [place] [address] OFFICE VISIT Date of Service: 01/10/25 MR#: [id number] Acct: [id number] Name: ALEXANDRA BLELA Rep #: [id number] : 1955 Provider: Ada Wheeler NP Age/Sex: 69/F Location: [facility].PMW Status: Signed Assessment and Plan Assessment and [...] 1 month (more content not included)... Normal [facility] Cardiovascular stress test r eportOrdered By: Carson Hobbs on 12-17-2024 Study report [facility] Work Phone: Echo Completeon 12-17-2024 Echo Complete [facility] [address] [place] [address] Echo Complete 12/17/24 0925 MR#: [id number] Acct: [id number] Name: ALEXANDRA BELLA Rep #: [id number] : 1955 69 From: Carson Hobbs MD Attending Dr: Mehrdad Ruth, CRITICAL CARE RN-C Status: REG CLI Ordering Dr: Mehrdad Ruth CRITICAL CARE RN CRITICAL CARE RN-C Date: 12/17/24 Location: [facility] Sex: F C Admitted: Reason For Study [...] Physician: Leonora Davalos Performed By: Manju Ruth, VIRGIECS, RVT 12/17/24 140 Date Carson Hobbs MD CC: CRITICAL CARE RN-C Leonora Davalos; CRITICAL CARE RN-C Mehrdad Ruth Date Dictated: 12/17/24924 Date Transcribed: 12/17/241406 Sandstone Inspector Repairer: Signed Normal [facility] Echocardiogram study reportO rdered By: Carson Hobbs on 12-17-2024 Study report [facility] Work Phone: Stress Reporton 12-17-2024 Stress Report [facility] Cardiovascular Services [address] [place] [address] MR#: [id number] Acct: [id number] Name: ALEXANDRA BELLA Rep #: [id number] : 1955 69 From: Carson Hobbs MD Primary Care: VANESSA Gilliland Status: REG CLI Referring Dr: Merhdad Ruth NP Sex: F C Stress Test [...] Ruth Date Dictated: 12/17/241702 Date Transcribed: 12/17/241702 Sandstone Inspector Repairer: [place] Signed Normal [facility] Chest PA and Lateralon 12-07 Chest PA and Lateral [facility] Imaging Services [address] [place] [id number] Chest PA and Lateral MR#: [id number] Acct: [id number] Name: ALEXANDRA BELLA Rep #: [id number] : 1955 F 69 From: Siddhartha Beaver DO PCP: VANESSA Gilliland Status: REG CLI Study: Chest PA and Lateral Date of Exam: 12/07/24 Exam# [id number] Ordering Dr: Sunita Montgomery PROCEDURE: CHEST PA AND LATERAL 12/07/2024 REASON FOR EXAM: COUGH AND CONGESTION TECHNIQUE: Frontal and lateral views of the chest. COMPARISON: Chest radiograph 09/02/2024 FINDINGS: Hardware: None Heart: Normal size Mediastinum: Normal contours Lungs: Clear. No effusions. No pneumothorax. Bones: Unremarkable RAD/Chest PA and Lateral IMPRESSION: No radiographic evidence of an acute cardiopulmonary process Reading [facility] CC: VANESSA Davalos; MISTY Melton Sandstone Inspector Repairer: Signed Normal [facility] ALP [Catalytic activity/Vol] Ordered By: Mehrdad Ruth on 11-13-2024 Serum or plasma alkaline phosphatase measurement 114 U/L High 35-104 [facility] ALT [Catalytic activity/Vol] Ordered By: Mehrdad Ruth on 11-13-2024 Serum or plasma alanine aminotransferase (ALT) measurement 78 U/L High <35 [facility] Absolute lymphocyte countOrd ered By: Mehrdad Ruth on 11-13-2024 Lymphocytes Auto (Unsp spec) [#/Vol] 2.59 10*3/uL 0.83-4.51 [facility] Absolute neutrophil countOrd ered By: Mehrdad Ruth on 11-13-2024 Neutrophils (Bld) [#/Vol] 4.9 10*3/uL 2.0-7.7 [facility] Absolute neutrophil count 4.9 X10^3/uL 2.0-7.7 [facility] Albumin [Mass/Vol]Ordered By : Mehrdad Ruth on 11-13-2024 Serum or plasma albumin measurement (mass/volume) 3.9 g/dL 3.4-4.8 [facility] Albumin/Globulin [Mass ratio ]Ordered By: Mehrdad Ruth on 11-13-2024 Serum or plasma albumin/globulin mass ratio 1.1 RATIO 0.9-2.4 [facility] Anion gap [Moles/Vol]Ordered By: Mehrdad Ruth on 11-13-2024 Anion gap in Serum or Plasma 12 5-15 [facility] Anion gap in Serum or Plasma Ordered By: Mehrdad Ruth on 11-13-2024 Anion gap [Moles/Vol] 12 mmol/L 5-15 [facility] Automated lymphocyte count a s percentage of total leukocytesOrdered By: Mehrdad Ruth on 11-13-2024 Lymphocytes/100 WBC Auto (Unsp spec) 31.6 % 19-41 [facility] BUN/creatinine ratioOrdered By: Mehrdad Ruth on 11-13-2024 Urea nitrogen/Creatinine [Mass ratio] 14.9 mg/mg 10-20 [facility] BUN/creatinine ratio 14.9 RATIO 10-[address] [facility] Basophil percentageOrdered B y: Mehrdad Ruth on 11-13-2024 Basophils/100 WBC (Bld) 0.4 % 0-1 [facility] Basophil percentage 0.4 % 0-1 [facility] Bilirubin, totalOrdered By: Mehrdad Ruth on 11-13-2024 Bilirubin [Mass/Vol] 0.35 mg/dL 0.00-1.[address] [facility] Bilirubin, total 0.35 mg/dL 0.00-1.30 [facility] CBC W/Diff, Automatedon Absolute Lymph 2.59 X10 3/uL Normal 0.83-4.51 [facility] Comment on above: Performed By: #### L 501.9520, L503.7505, L100.0100, L500.4050, L501.5200 ####[facility] [address] [place], [address] Absolute Neut 4.9 X10 3/uL Normal 2.0-7.7 [facility] Comment on above: Performed By: #### L 501.9520, L503.7505, L100.0100, L500.4050, L501.5200 ####[facility] [address] [place], [address] Basophils/100 WBC (Bld) 0.4 % Normal 0-1 [facility] Comment on above: Performed By: #### L 501.9520, L503.7505, L100.0100, L500.4050, L501.5200 ####[facility] [address] [place], [address] Eosinophils/100 WBC (Bld) 1.3 % Normal 0-5 [facility] Comment on above: Performed By: #### L 501.9520, L503.7505, L100.0100, L500.4050, L501.5200 ####[facility] [address] [place], [address] Erythrocyte distribution width (RBC) [Ratio] 13.8 % Normal 11.6-14.6 [facility] Comment on above: Performed By: #### L 501.9520, L503.7505, L100.0100, L500.4050, L501.5200 ####[facility] [address] [place], [address] Hematocrit (Bld) [Volume fraction] 42.6 % Normal 37-47 [facility] Comment on above: Performed By: #### L 501.9520, L503.7505, L100.0100, L500.4050, L501.5200 ####[facility] [address] [place], [address] Hemoglobin (Bld) [Mass/Vol] 13.7 g/dL Normal 12.0-15.0 [facility] Comment on above: Performed By: #### L 501.9520, L503.7505, L100.0100, L500.4050, L501.5200 ####[facility] [address] [place], [address] IG% 0.400 Normal 0.0-0.9 [facility] Comment on above: Result Comment: IG% - Immature Granulocytes (promyelocytes, myelocytes and metamyelocytes) > 1% indicates that a LEFT SHIFT is Present. Performed By: #### L 501.9520, L503.7505, L100.0100, L500.4050, L501.5200 ####[facility] [address] [place], [address] Lymphocytes/100 WBC (Bld) 31.6 % Normal 19-41 [facility] Comment on above: Performed By: #### L 501.9520, L503.7505, L100.0100, L500.4050, L501.5200 ####[facility] [address] [place], [address] MCH (RBC) [Entitic mass] 29.2 pg Normal 27.0-32.0 [facility] Comment on above: Performed By: #### L 501.9520, L503.7505, L100.0100, L500.4050, L501.5200 ####[facility] [address] [place], [address] MCHC (RBC) [Mass/Vol] 32.2 g/dL Normal 32-36 [facility] Comment on above: Performed By: #### L 501.9520, L503.7505, L100.0100, L500.4050, L501.5200 ####[facility] [address] [place], [address] MCV (RBC) [Entitic vol] 90.8 fL Normal 81-99 [facility] Comment on above: Performed By: #### L 501.9520, L503.7505, L100.0100, L500.4050, L501.5200 ####[facility] [address] [place], [address] Monocytes/100 WBC (Bld) 6.7 % Normal 0-10 [facility] Comment on above: Performed By: #### L 501.9520, L503.7505, L100.0100, L500.4050, L501.5200 ####[facility] [address] [place], [address] Neutrophils/100 WBC (Bld) 59.6 % Normal 47-70 [facility] Comment on above: Performed By: #### L 501.9520, L503.7505, L100.0100, L500.4050, L501.5200 ####[facility] [address] [place], [address] Nucleated RBC (Bld) [#/Vol] 0 10*3/uL Normal 0-5 [facility] Comment on above: Performed By: #### L 501.9520, L503.7505, L100.0100, L500.4050, L501.5200 ####[facility] [address] [place], [address] Platelet mean volume (Bld) [Entitic vol] 11.2 fL Normal 6.2-12.0 [facility] Comment on above: Performed By: #### L 501.9520, L503.7505, L100.0100, L500.4050, L501.5200 ####[facility] [address] [place], [address] Platelets (Bld) [#/Vol] 220 10*3/uL Normal 150-450 [facility] Comment on above: Performed By: #### L 501.9520, L503.7505, L100.0100, L500.4050, L501.5200 ####[facility] [address] [place], [address] RBC (Bld) [#/Vol] 4.69 10*6/uL Normal 4.2-5.4 [facility] Comment on above: Performed By: #### L 501.9520, L503.7505, L100.0100, L500.4050, L501.5200 ####[facility] [address] [place], [address] RDW SD 45.7 fl High 35.1-43.9 [facility] Comment on above: Performed By: #### L 501.9520, L503.7505, L100.0100, L500.4050, L501.5200 ####[facility] [address] [place], [address] WBC (Bld) [#/Vol] 8.2 10*3/uL Normal 4.4-11.0 [facility] Comment on above: Performed By: #### L 501.9520, L503.7505, L100.0100, L500.4050, L501.5200 ####[facility] [address] [place], [address] Calcium [Mass/Vol]Ordered By : Mehrdad Ruth on 11-13-2024 Serum or plasma calcium measurement (mass/volume) 10.0 mg/dL 7.6-11.0 [facility] Carbon dioxide, total [Moles /volume] in Central venous bloodOrdered By: Mehrdad Ruth on 11-13-2024 CO2 [Moles/Vol] 23.4 mmol/L 21.0-32.0 [facility] Carbon dioxide, total [Moles/volume] in Central venous blood 23.4 mmol/L 21.0-32.0 [facility] Cardiology Visit Reporton Cardiology Visit Report [facility] [address] [place] [address] OFFICE VISIT Date of Service: 11/13/24 MR#: [id number] Acct: [id number] Name: ALEXANDRA BELLA Chi Rep #: [id number] : 1955 Provider: VANESSA duran Age/Sex: 68/F Location: [facility] Status: Signed HPI HPI History of Present Illness Details: This is 68-year-old female who presents for a cardiovascular outpatient follow-up. She has a history of diastolic dysfunction, paroxysmal atrial fibrillation status post MICHAELA guided cardioversion at [facility] on 07/08/2019, DVT status post Inez filter, morbid obesity, former smoker, quit after [...] NIBP Intake Visit Reasons: 6 M FU [employer] Manager Required: No Is patient in pain?: No [...] meter (FreeStyle #1 ea 01/06/20 09/02/24 Rx [place] Lite kit) lancing device with lancets kit [...] #90 tabs (more content not included)... Normal [facility] Chloride assayOrdered By: Hailee Ruth on 11-13-2024 Chloride [Moles/Vol] 104 mmol/L 98-[address] [facility] Chloride assay 104 mmol/L 98-108 [facility] Comprehensive Metabolic Prof ilon 11-13-2024 Albumin [Mass/Vol] 3.9 g/dL Normal 3.4-4.8 [facility] Comment on above: Performed By: #### L 501.9520, L503.7505, L100.0100, L500.4050, L501.5200 ####[facility] [address] [place], [address] Albumin/Globulin [Mass ratio] 1.1 {ratio} Normal 0.9-2.4 [facility] Comment on above: Performed By: #### L 501.9520, L503.7505, L100.0100, L500.4050, L501.5200 ####[facility] [address] [place], [address] ALK PHOS 114 U/L High 35-104 [facility] Comment on above: Performed By: #### L 501.9520, L503.7505, L100.0100, L500.4050, L501.5200 ####[facility] [address] [place], [address] ALT [Catalytic activity/Vol] 78 U/L High <=34 [facility] Comment on above: Performed By: #### L 501.9520, L503.7505, L100.0100, L500.4050, L501.5200 ####[facility] [address] [place], [address] AST [Catalytic activity/Vol] 66 U/L High <=31 [facility] Comment on above: Result Comment: Hemo lysis present, Results??could be affected. ?? Performed By: #### L 501.9520, L503.7505, L100.0100, L500.4050, L501.5200 ####[facility] [address] [place], [address] Bilirubin [Mass/Vol] 0.35 mg/dL Normal 0.00-1.[address] [facility] Comment on above: Performed By: #### L 501.9520, L503.7505, L100.0100, L500.4050, L501.5200 ####[facility] [address] [place], [address] BUN/CRE 14.9 RATIO Normal 10-20 [facility] Comment on above: Performed By: #### L 501.9520, L503.7505, L100.0100, L500.4050, L501.5200 ####[facility] [address] [place], [address] Calcium [Mass/Vol] 10.0 mg/dL Normal 7.6-11.0 [facility] Comment on above: Performed By: #### L 501.9520, L503.7505, L100.0100, L500.4050, L501.5200 ####[facility] [address] [place], [address] Chloride [Moles/Vol] 104 mmol/L Normal 98-[address] [facility] Comment on above: Performed By: #### L 501.9520, L503.7505, L100.0100, L500.4050, L501.5200 ####[facility] [address] [place], [address] CO2 [Moles/Vol] 23.4 mmol/L Normal 21.0-32.0 [facility] Comment on above: Performed By: #### L 501.9520, L503.7505, L100.0100, L500.4050, L501.5200 ####[facility] [address] [place], [address] Creatinine [Mass/Vol] 0.77 mg/dL Normal 0.70-1.20 [facility] Comment on above: Performed By: #### L 501.9520, L503.7505, L100.0100, L500.4050, L501.5200 ####[facility] [address] [place], [address] GAP 12 Normal 5-15 [facility] Comment on above: Performed By: #### L 501.9520, L503.7505, L100.0100, L500.4050, L501.5200 ####[facility] [address] [place], [address] GFR/1.73 sq M.predicted among non-blacks MDRD (S/P/Bld) [Vol rate/Area] 84 mL/min/{1.73_m2} Normal >60 [facility] Comment on above: Result Comment: mL/m in/1.73m2 CKD-EPI Creatinine Equation (2020) Performed By: #### L 501.9520, L503.7505, L100.0100, L500.4050, L501.5200 ####[facility] [address] [place], [address] Globulin (S) [Mass/Vol] 3.6 g/dL Normal 2.2-4.2 [facility] Comment on above: Performed By: #### L 501.9520, L503.7505, L100.0100, L500.4050, L501.5200 ####[facility] [address] [place], [address] Glucose [Mass/Vol] 186 mg/dL High 70-99 [facility] Comment on above: Performed By: #### L 501.9520, L503.7505, L100.0100, L500.4050, L501.5200 ####[facility] [address] [place], [address] Potassium [Moles/Vol] 4.3 mmol/L Normal 3.3-5.1 [facility] Comment on above: Result Comment: Hemo lysis present, Results??could be affected. ?? Performed By: #### L 501.9520, L503.7505, L100.0100, L500.4050, L501.5200 ####[facility] [address] [place], [address] Sodium [Moles/Vol] 139 mmol/L Normal 133-145 [facility] Comment on above: Performed By: #### L 501.9520, L503.7505, L100.0100, L500.4050, L501.5200 ####[facility] [address] [place], [address] T PROT 7.5 g/dL Normal 5.9-8.4 [facility] Comment on above: Performed By: #### L 501.9520, L503.7505, L100.0100, L500.4050, L501.5200 ####[facility] [address] [place], [address] Urea nitrogen [Mass/Vol] 11 mg/dL Normal 4-19 [facility] Comment on above: Performed By: #### L 501.9520, L503.7505, L100.0100, L500.4050, L501.5200 ####[facility] [address] [place], [address] Creatinine [Mass/Vol]Ordered By: Mehrdad Ruth on 11-13-2024 Serum creatinine measurement (mass/volume) 0.77 mg/dL 0.70-1.20 [facility] Eosinophil percentageOrdered By: Mehrdad Ruth on 11-13-2024 Eosinophils/100 WBC (Bld) 1.3 % 0-5 [facility] Eosinophil percentage 1.3 % 0-5 [facility] Erythrocyte distribution wid th (RBC) [Ratio]Ordered By: Mehrdad Ruth on 11-13-2024 Erythrocyte distribution width ratio 13.8 % 11.6-14.6 [facility] Erythrocyte distribution width standard deviation 45.7 fl High 35.1-43.9 [facility] Erythrocyte distribution wid th ratioOrdered By: Mehrdad Ruth on 11-13-2024 Erythrocyte distribution width (RBC) [Ratio] 13.8 % 11.6-14.6 [facility] Erythrocyte distribution wid th standard deviationOrdered By: Mehrdad Ruth on 11-13-2024 Erythrocyte distribution width (RBC) [Entitic vol] 45.7 fL High 35.1-43.9 [facility] Erythrocyte distribution width (RBC) [Ratio] 45.7 fl High 35.1-43.9 [facility] GFR/1.73 sq M.predicted celine g non-blacks MDRD (S/P/Bld) [Vol rate/Area]Ordered By: Mehrdad Ruth on 11-13-2024 Estimated GFR (MDRD) Non-Af Amer 84 >60 [facility] Comment on above: mL/min/1.73m2 CKD-EP I Creatinine Equation (2020) Glomerular filtration rate (GFR) estimation/1.73 sq m using serum, plasma, or whole b 84 >60 [facility] Glomerular filtration rate ( GFR) estimation/1.73 sq m using serum, plasma, or whole bOrdered By: Mehrdad Ruth on 11-13-2024 GFR/1.73 sq M.predicted among non-blacks MDRD (S/P/Bld) [Vol rate/Area] 84 mL/min/{1.73_m2} >60 [facility] Glucose [Mass/Vol]Ordered By : Mehradd Ruth on 11-13-2024 Serum glucose measurement (mass/volume) 186 mg/dL High 70-99 [facility] Hematocrit Auto (Bld) [Volum e fraction]Ordered By: Mehrdad Ruth on 11-13-2024 Hematocrit (Bld) [Volume fraction] 42.6 % 37-47 [facility] Automated blood hematocrit (percentage) 42.6 % [facility] Hemoglobin measurementOrdere d By: Mehrdad Ruth on 11-13-2024 Hemoglobin (Bld) [Mass/Vol] 13.7 g/dL 12.0-15.0 [facility] Hemoglobin measurement 13.7 g/dL 12.0-15.0 [facility] Immature granulocytes/100 WB C Auto (Bld)Ordered By: Mehrdad Ruth on 11-13-2024 Immature granulocytes/100 WBC (Bld) 0.400 % 0.0-0.9 [facility] Comment on above: IG% - Immature Granu locytes (promyelocytes, myelocytes and metamyelocytes) > 1% indicates that a LEFT SHIFT is Present. Automated immature granulocyte percentage 0.400 % 0.0-0.9 [facility] L503.7505on 11-13-2024 Natriuretic peptide B (Bld) [Mass/Vol] 86 pg/mL Normal <=900 [facility] Comment on above: Result Comment: Hear t Failure Unlikely: < 300 pg/mL Heart Failure Likely < 50 Years: > 450 pg/mL 50-75 Years: > 900 pg/mL >75 Years: > 1800 pg/mL Performed By: #### L 501.9520, L503.7505, L100.0100, L500.4050, L501.5200 ####[facility] [address] [place], [address] Laboratory - Chemistry and C hemistry - challengeOrdered By: Mehrdad Ruth on 11-13-2024 AST [Catalytic activity/Vol] 66 U/L High <32 [facility] Comment on above: Hemolysis present, R esults could be affected. Natriuretic peptide B (Bld) [Mass/Vol] 86 pg/mL <900 [facility] Comment on above: Heart Failure Unlike ly: < 300 pg/mLHeart Failure Likely< 50 Years: > 450 pg/mL50-75 Years: > 900 pg/mL>75 Years: > 1800 pg/mL Lymphocytes Auto (Unsp spec) [#/Vol]Ordered By: Mehrdad Ruth on 11-13-2024 Lymphocytes (Bld) [#/Vol] 2.59 10*3/uL 0.83-4.51 [facility] Absolute lymphocyte count 2.59 X10^3/uL 0.83-4.51 [facility] Lymphocytes/100 WBC Auto (Un sp spec)Ordered By: Mehrdad Ruth on 11-13-2024 Lymphocytes/100 WBC (Bld) 31.6 % [facility] Automated lymphocyte count as percentage of total leukocytes 31.6 % [facility] MCV (RBC) [Entitic vol]Order ed By: Mehrdad Ruth on 11-13-2024 MCV (mean corpuscular volume) determination 90.8 fL 81-99 [facility] MCV (mean corpuscular volume ) determinationOrdered By: Mehrdad Ruth on 11-13-2024 MCV (RBC) [Entitic vol] 90.8 fL 81-99 [facility] Magnesiumon 11-13-2024 Magnesium [Mass/Vol] 2.1 mg/dL Normal 1.5-2.[address] [facility] Comment on above: Performed By: #### L 501.9520, L503.7505, L100.0100, L500.4050, L501.5200 ####[facility] [address] [place], [place], [id number] Magnesium (Unsp spec) [Mass/ Vol]Ordered By: Mehrdad Ruth on 11-13-2024 Magnesium [Mass/Vol] 2.1 mg/dL 1.5-2.[address] [facility] Magnesium measurement (mass/volume) 2.1 mg/dL 1.5-2.2 [facility] Magnesium measurement (mass/ volume)Ordered By: Mehrdad Ruth on 11-13-2024 Magnesium (Unsp spec) [Mass/Vol] 2.1 mg/dL 1.5-2.2 [facility] Mean corpuscular hemoglobin (MCH) determinationOrdered By: Mehrdad Ruth on 11-13-2024 MCH (RBC) [Entitic mass] 29.2 pg 27.0-32.0 [facility] Mean corpuscular hemoglobin (MCH) determination 29.2 pg 27.0-32.0 [facility] Mean corpuscular hemoglobin concentration (MCHC) determinationOrdered By: Mehrdad Ruth on 11-13-2024 MCHC (RBC) [Mass/Vol] 32.2 g/dL 32-36 [facility] Mean corpuscular hemoglobin concentration (MCHC) determination 32.2 g/dL 32-36 [facility] Mean platelet volume determi nationOrdered By: Mehrdad Ruth on 11-13-2024 Platelet mean volume (Bld) [Entitic vol] 11.2 fL 6.2-12.0 [facility] Mean platelet volume determination 11.2 fl 6.2-12.0 [facility] Monocyte percentageOrdered B y: Mehrdad Ruth on 11-13-2024 Monocytes/100 WBC (Bld) 6.7 % 0-10 [facility] Monocyte percentage 6.7 % 0-10 [facility] Neutrophil percentageOrdered By: Mehrdad Ruth on 11-13-2024 Neutrophils/100 WBC (Bld) 59.6 % 47-70 [facility] Neutrophil percentage 59.6 % 47-70 [facility] No Panel InformationOrdered By: Mehrdad Ruth on 11-13-2024 66 U/L High <32 [facility] 86 pg/mL <900 [facility] Nucleated red blood cell per centageOrdered By: Mehrdad Ruth on 11-13-2024 Nucleated RBC/100 WBC (Bld) [Ratio] 0 % 0-5 [facility] Nucleated red blood cell percentage 0 % 0-5 [facility] Platelet countOrdered By: Hailee Ruth on 11-13-2024 Platelets (Bld) [#/Vol] 220 10*3/uL 150-450 [facility] Platelet count 220 K/mm3 150-450 [facility] Potassium (Unsp spec) [Mass/ Vol]Ordered By: Mehrdad Ruth on 11-13-2024 Potassium [Moles/Vol] 4.3 mmol/L 3.3-5.1 [facility] Comment on above: Hemolysis present, R esults could be affected. Potassium measurement (mass/volume) 4.3 mmol/L 3.3-5.1 [facility] Potassium measurement (mass/ volume)Ordered By: Mehrdad Ruth on 11-13-2024 Potassium (Unsp spec) [Mass/Vol] 4.3 mmol/L 3.3-5.1 [facility] RBC Auto (Bld) [#/Vol]Ordere d By: Mehrdad Ruth on 11-13-2024 RBC (Bld) [#/Vol] 4.69 10*6/uL 4.2-5.4 [facility] Automated blood erythrocyte count 4.69 M/mm3 4.2-5.4 [facility] Serum creatinine measurement (mass/volume)Ordered By: Mehrdad Ruth on 11-13-2024 Creatinine [Mass/Vol] 0.77 mg/dL 0.70-1.20 [facility] Serum globulin measurementOr dered By: Mehrdad Ruth on 11-13-2024 Globulin (S) [Mass/Vol] 3.6 g/dL 2.2-4.2 [facility] Serum globulin measurement 3.6 g/dL 2.2-4.2 [facility] Serum glucose measurement (m ass/volume)Ordered By: Mehrdad Ruth on 11-13-2024 Glucose [Mass/Vol] 186 mg/dL High 70-99 [facility] Serum or plasma alanine kim otransferase (ALT) measurementOrdered By: Mehrdad Ruth on 11-13-2024 ALT [Catalytic activity/Vol] 78 U/L High <35 [facility] Serum or plasma albumin shamir urement (mass/volume)Ordered By: Mehrdad Ruth on 11-13-2024 Albumin [Mass/Vol] 3.9 g/dL 3.4-4.8 [facility] Serum or plasma albumin/glob ulin mass ratioOrdered By: Mehrdad Ruth on 11-13-2024 Albumin/Globulin [Mass ratio] 1.1 {ratio} 0.9-2.4 [facility] Serum or plasma alkaline oren sphatase measurementOrdered By: Mehrdad Ruth on 11-13-2024 ALP [Catalytic activity/Vol] 114 U/L High 35-104 [facility] Serum or plasma calcium shamir urement (mass/volume)Ordered By: Mehrdad Ruth on 11-13-2024 Calcium [Mass/Vol] 10.0 mg/dL 7.6-11.0 [facility] Serum or plasma urea nitroge n measurement (mass/volume)Ordered By: Mehrdad Ruth on 11-13-2024 Urea nitrogen [Mass/Vol] 11 mg/dL 4-19 [facility] Sodium levelOrdered By: Mehrdad Ruth on 11-13-2024 Sodium [Moles/Vol] 139 mmol/L 133-145 [facility] Sodium level 139 mmol/L 133-145 [facility] TSH DL <= 0.005 mIU/L QnOrde red By: Mehrdad Ruth on 11-13-2024 Thyroid Stimulating Hormone (TSH) 2.240 uIU/mL 0.300-4.200 [facility] TSH Qn 2.240 uIU/mL 0.300-4.200 [facility] Serum or plasma thyroid stimulating hormone (TSH) measurement by high sensitivity met 2.240 uIU/mL 0.300-4.200 [facility] Thyroid Stim Hormone (TSH)on 11-13-2024 TSH 2.240 uIU/mL Normal 0.300-4.200 [facility] Comment on above: Performed By: #### L 501.9520, L503.7505, L100.0100, L500.4050, L501.5200 ####[facility] [address] [place], [address] Total proteinOrdered By: Luther Ruth on 11-13-2024 Protein [Mass/Vol] 7.5 g/dL 5.9-8.4 [facility] Total protein 7.5 g/dL 5.9-8.4 [facility] Urea nitrogen [Mass/Vol]Orde red By: Mehrdad Ruth on 11-13-2024 Serum or plasma urea nitrogen measurement (mass/volume) 11 mg/dL 4-19 [facility] White blood cell (WBC) count Ordered By: Mehrdad Ruth on 11-13-2024 WBC (Bld) [#/Vol] 8.2 10*3/uL 4.4-11.0 [facility] White blood cell (WBC) count 8.2 K/mm3 4.4-11.0 [facility] ALBUMIN/CREATININE RATIO, UR INEon 11-12-2024 Albumin Unsp time DL <= 20 mg/L (U) [Mass/Time] <12.0 Normal [facility] Comment on above: Order Comment: Speci men Type: BLOOD SPECIMEN Ordering Facility: [facility] Address: [address] [place] [address] Performed By: #### 5 7021-8 #### [facility] CLIA [id number] [address] [place] [address] [place] Albumin/Creatinine (U) [Mass ratio] <13 Normal <30 [facility] Comment on above: Order Comment: Speci men Type: BLOOD SPECIMEN Ordering Facility: [facility] Address: [address] [place] [address] Result Comment: Adul t Male and Female Nephrotic Criteria: <30 mg/g is considered normal to mildly increased 30-300 mg/g is considered moderately increased >300 mg/g is considered severely increased KDIGO. (2013). KDIGO 2012 Clinical Practice Guideline for the Evaluation and Management of Chronic Kidney Disease. Official Journal of the International Society of Nephrology, 3(1), 1-150. Performed By: #### 5 7021-8 #### [facility] CLIA [id number] [address] [place] [address] [place] Creatinine (U) [Mass/Vol] 91.5 mg/dL Normal 42.2-237.9 [facility] Comment on above: Order Comment: Speci men Type: BLOOD SPECIMEN Ordering Facility: [facility] Address: [address] [place] [address] Performed By: #### 5 7021-8 #### [facility] CLIA [id number] [address] [place] [address] [place] Comprehensive metabolic 2000 panelon 11-12-2024 Albumin [Mass/Vol] 3.8 g/dL Low 3.9-4.9 [facility] Comment on above: Order Comment: Speci men Type: BLOOD SPECIMEN Ordering Facility: [facility] Address: [address] [place] [address] Performed By: #### 2 4323-8, 94687-7, 3016-3 #### [facility] CLIA [id number] [address] [place] [address] [place] ALP [Catalytic activity/Vol] 116 U/L Normal 34-123 [facility] Comment on above: Order Comment: Speci men Type: BLOOD SPECIMEN Ordering Facility: [facility] Address: [address] [place], [place] [address] Performed By: #### 2 4323-8, 81066-9, 3016-3 #### [facility] CLIA [id number] [address] [place] [address] [place] ALT With P-5'-P [Catalytic activity/Vol] 61 U/L High 7-38 [facility] Comment on above: Order Comment: Speci men Type: BLOOD SPECIMEN Ordering Facility: [facility] Address: [address] [place], [place] [address] Performed By: #### 2 4323-8, 56507-6, 3016-3 #### [facility] CLIA [id number] [address] [place] [address] [facility] Anion gap [Moles/Vol] 10 mmol/L Normal 8-15 [facility] Comment on above: Order Comment: Speci men Type: BLOOD SPECIMEN Ordering Facility: [facility] Address: [address] [place] [address] Performed By: #### 2 4323-8, 18037-5, 6-3 #### [facility] CLIA [id number] [address] [place] [address] [place] AST With P-5'-P [Catalytic activity/Vol] 56 U/L High 13-35 [facility] Comment on above: Order Comment: Speci men Type: BLOOD SPECIMEN Ordering Facility: [facility] Address: [address] [place] [address] Performed By: #### 2 4323-8, 75944-8, 6-3 #### [facility] CLIA [id number] [address] [place] [address] [place] Bilirubin [Mass/Vol] 0.5 mg/dL Normal 0.2-1.3 [facility] Comment on above: Order Comment: Speci men Type: BLOOD SPECIMEN Ordering Facility: [facility] Address: [address] [place], [place] [address] Performed By: #### 2 4323-8, 05087-4, 6-3 #### [facility] CLIA [id number] [address] [facility] [place] [address] [place] Calcium [Mass/Vol] 9.6 mg/dL Normal 8.5-10.2 [facility] Comment on above: Order Comment: Speci men Type: BLOOD SPECIMEN Ordering Facility: [facility] Address: [address] [place] [address] Performed By: #### 2 4323-8, 07847-4, 6-3 #### [facility] CLIA [id number] [address] [place] [address] [place] Chloride [Moles/Vol] 103 mmol/L Normal 98-107 [facility] Comment on above: Order Comment: Speci men Type: BLOOD SPECIMEN Ordering Facility: [facility] Address: [address] [place] [address] Performed By: #### 2 4323-8, 28668-2, 3015-3 #### [facility] CLIA [id number] [address] [facility] [place] [address] [place] CO2 [Moles/Vol] 24 mmol/L Normal 22-30 [facility] Comment on above: Order Comment: Speci men Type: BLOOD SPECIMEN Ordering Facility: [facility] Address: [address] [place] [address] Performed By: #### 2 4323-8, 92063-1, 6-3 #### [facility] CLIA [id number] [address] [facility] [place] [address] [place] Creatinine [Mass/Vol] 0.64 mg/dL Normal 0.58-0.96 [facility] Comment on above: Order Comment: Speci men Type: BLOOD SPECIMEN Ordering Facility: [facility] Address: [address] [place] [address] Performed By: #### 2 4323-8, 82530-7, 6-3 #### [facility] CLIA [id number] [address] [facility] [place] [address] [place] Creatinine and Glomerular filtration rate.predicted panel (S/P/Bld) 96 mL/min/1.73m??? Normal >=60 [facility] Comment on above: Order Comment: Harry lunsford Type: BLOOD SPECIMEN Ordering Facility: [facility] Address: [address] [place] [address] Result Comment: Hortensia mated Glomerular Filtration Rate [...] actual GFR. Performed By: #### 2 4323-8, 74252-8, 3016-3 #### [facility] CLIA [id number] [address] [place] [address] [place] Glucose [Mass/Vol] 151 mg/dL High 74-99 [facility] Comment on above: Order Comment: Harry lunsford Type: BLOOD SPECIMEN Ordering Facility: [facility] Address: [address] [place] [address] Result Comment: The [place] [employer] (ADA) provides guidance for cutoff [...] Standards of Medical Care in Diabetes 2016, [place] [employer]. Diabetes Care. 2016.39(Suppl 1). Performed By: #### 2 4323-8, 58520-6, 3016-3 #### [facility] CLIA [id number] [address] [place] [address] [place] Potassium [Moles/Vol] 4.0 mmol/L Normal 3.7-5.1 [facility] Comment on above: Order Comment: Speci men Type: BLOOD SPECIMEN Ordering Facility: [facility] Address: [address] [place], [place] [address] Performed By: #### 2 4323-8, 42074-7, 6-3 #### [facility] CLIA [id number] [address] [place] [address] [place] Protein [Mass/Vol] 7.4 g/dL Normal 6.3-8.0 [facility] Comment on above: Order Comment: Speci men Type: BLOOD SPECIMEN Ordering Facility: [facility] Address: [address] [place] [address] Performed By: #### 2 4323-8, 64625-3, 3015-3 #### [facility] CLIA [id number] [address] [place] [address] [place] Sodium [Moles/Vol] 137 mmol/L Normal 136-144 [facility] Comment on above: Order Comment: Speci men Type: BLOOD SPECIMEN Ordering Facility: [facility] Address: [address] [place] [address] Performed By: #### 2 4323-8, 07044-2, 3 #### [facility] CLIA [id number] [address] [place] [address] [place] Urea nitrogen [Mass/Vol] 9 mg/dL Normal 7-21 [facility] Comment on above: Order Comment: Speci men Type: BLOOD SPECIMEN Ordering Facility: [facility] Address: [address] [place] [address] Performed By: #### 2 4323-8, 78270-3, 3015-3 #### [facility] CLIA [id number] [address] [place] [address] [place] HbA1c (Bld)on 11-12-2024 Average glucose Estimated from glycated hemoglobin (Bld) [Mass/Vol] 160 mg/dL Normal [facility] Comment on above: Order Comment: Speci men Type: BLOOD SPECIMEN Ordering Facility: [facility] Address: [address] [place] [address] Result Comment: eAG: (Estimated average glucose) is a calculated value from HgbA1c and is client care representative of the average blood glucose level in the last 2-3 month period. Performed By: #### 5 5454-3 #### [facility] CLIA [id number] [address] [place] [address] [place] HbA1c (Bld) [Mass fraction] 7.2 % High 4.3-5.6 [facility] Comment on above: Order Comment: Harry lunsford Type: BLOOD SPECIMEN Ordering Facility: [facility] Address: [address] [place] [address] Result Comment: Amer ican Diabetes Association guidelines indicate that patients with HgbA1c in the range 5.7-6.4% are at increased risk for development of diabetes, and intervention by lifestyle modification may be beneficial. HgbA1c greater or equal to 6.5% is considered diagnostic of diabetes. Performed By: #### 5 5454-3 #### [facility] CLIA [id number] [address] [place] [address] [place] Lipid 1996 panelon 5 Cholesterol [Mass/Vol] 187 mg/dL Normal <200 [facility] Comment on above: Order Comment: Harry lunsford Type: BLOOD SPECIMEN Ordering Facility: [facility] Address: [address] [place] [address] Result Comment: <200 mg/dL, Desirable 200-239 mg/dL, Borderline high >239 mg/dL, High Performed By: #### 2 4323-8, 87621-5, 3016-3 #### [facility] CLIA [id number] [address] [place] Cholesterol in HDL [Mass/Vol] 41 mg/dL Normal >39 [facility] Comment on above: Order Comment: Harry lunsford Type: BLOOD SPECIMEN Ordering Facility: [facility] Address: [address] [place] [address] Result Comment: 40-5 9 mg/dL, Acceptable >59 mg/dL, High: Negative risk factor for coronary heart disease <40 mg/dL, Low: Positive risk factor for coronary heart disease Performed By: #### 2 4323-8, 05073-6, 6-3 #### [facility] CLIA [id number] [address] [place] [address] [place] [facility] Cholesterol in LDL [Mass/Vol] 121 mg/dL High <100 [facility] Comment on above: Order Comment: Harry lunsford Type: BLOOD SPECIMEN Ordering Facility: [facility] Address: [address] [place] [address] Result Comment: <100 mg/dL, Optimal 100-129 mg/dL, Near optimal/above optimal 130-159 mg/dL, Borderline high 160-189 mg/dL, High >189 mg/dL, Very high Secondary prevention optimal LDL Cholesterol levels are recommended to be < 70 mg/dL Performed By: #### 2 4323-8, 53293-2, 3015-3 #### [facility] CLIA [id number] [address] [place] [address] [facility] Cholesterol in LDL/Cholesterol in HDL [Mass ratio] 2.95 {ratio} High <2.54 [facility] Comment on above: Order Comment: Harry lunsford Type: BLOOD SPECIMEN Ordering Facility: [facility] Address: [address] [place] [address] Result Comment: Refe lornece: 1. National Cholesterol Education Program ATP III Guideline At-A-Glance Quick Desk Reference: National Heart, Lung, and Blood Mclean. National Institutes of Health. 2001: NIH Publication No. 01-3305. 2. An International Atherosclerosis Society position paper: global recommendations for the management of dyslipidemia: executive summary, Atherosclerosis. 2014: 232(2):410-413. Performed By: #### 2 4323-8, 53659-0, 3015-3 #### [facility] CLIA [id number] [address] [place] [address] [facility] Cholesterol in VLDL [Mass/Vol] 25 mg/dL Normal <30 [facility] Comment on above: Order Comment: Harry lunsford Type: BLOOD SPECIMEN Ordering Facility: [facility] Address: [address] [place] [address] Performed By: #### 2 4323-8, 53221-2, 3015-3 #### [facility] CLIA [id number] [address] [place] [address] [place] Cholesterol non HDL [Mass/Vol] 146 mg/dL High <130 [facility] Comment on above: Order Comment: Speci men Type: BLOOD SPECIMEN Ordering Facility: [facility] Address: [address] [place] [address] Result Comment: <130 mg/dL, Optimal 130-159 mg/dL, Near optimal/above optimal 160-189 mg/dL, Borderline high 190-219 mg/dL, High >219 mg/dL, Very high Secondary prevention optimal non HDL Cholesterol levels are recommended to be <100 mg/dL Performed By: #### 2 4323-8, 23685-2, 3 #### [facility] CLIA [id number] [address] [place] [address] [facility] Cholesterol.total/Choles terol in HDL [Mass ratio] 4.56 {ratio} Normal <5.10 [facility] Comment on above: Order Comment: Speci men Type: BLOOD SPECIMEN Ordering Facility: [facility] Address: [address] [place] [address] Performed By: #### 2 4323-8, 19729-2, 3 #### [facility] CLIA [id number] [address] [place] [address] [facility] FASTING TIME 12 hrs Normal [facility] Comment on above: Order Comment: Speci men Type: BLOOD SPECIMEN Ordering Facility: [facility] Address: [address] [place] [address] Performed By: #### 2 4323-8, 24300-3, 3015-3 #### [facility] CLIA [id number] [address] [place] [address] [facility] Triglyceride [Mass/Vol] 124 mg/dL Normal <150 [facility] Comment on above: Order Comment: Speci men Type: BLOOD SPECIMEN Ordering Facility: [facility] Address: [address] [place] [address] Result Comment: <150 mg/dL, Normal 150-199 mg/dL, Borderline high 200-499 mg/dL, High >499 mg/dL, Very high Performed By: #### 2 4323-8, 29119-1, 3016-3 #### [facility] CLIA [id number] [address] [place] [address] [place] T4 Free SerPl-mCncon 025 Free T4 [Mass/Vol] 1.6 ng/dL Normal 0.9-1.7 [facility] Comment on above: Order Comment: Harry lunsford Type: BLOOD SPECIMEN Ordering Facility: [facility] Address: [address] [place] [address] Performed By: #### 5 7021-8 #### [facility] CLIA [id number] [address] [place], [place] [address] [facility] TSH SerPl-aCncon 11-12-2024 TSH Qn 2.380 m[IU]/L Normal 0.270-4.200 [facility] Comment on above: Order Comment: Harry lunsford Type: BLOOD SPECIMEN Ordering Facility: [facility] Address: [address] [place] [address] Performed By: #### 2 4323-8, 08747-0, 3016-3 #### [facility] CLIA [id number] [address] [place] [address] [place] Ignacio 11-04-2024 SERVANDON Telephone ([employer]) -------- ALEXANDRA BELLA ([id number]) 1955 F Date Time Provider Department 11/04/24 ELICEO AMBRIZ During your visit today, we recorded the following information about you: Corrie Hall 11/04/2024 10:47 AM Signed PT has had the flu with vomiting and diarrhea x 4 days. PT stopped taking her diabetes medication on evening due to symptoms. PT is requesting a return to discuss symptoms and medication use, call [phone]. Marissa Tim, RN 11/05/2024 4:20 PM Signed [...] and all questions were answered. Eliceo Ambriz APRN.SPOOL MAKER 11/05/2024 4:36 PM Signed Noted and agree [...] Fully Assessed Reason for Visit: Patient Question [5547] Prescriptions as of 11/05/2024 - SYNTHROID 200 [...] torso [D17.1] 11/05/2020 Coronary artery disease involving [place]*11/11/2020 History of DVT (deep vein thrombosis) [Z86.718] 11/26/2020 History of colorectal cancer [Z85.048] 11/26/2020 CHF (congestive heart failure) (HCC) [ (more content not included)... [facility] 36 10-28-2024 36 Name of caller: Alexandra Lorenzo Relation to patient: patient Contact phone number: [phone] Appointment scheduled with: Dr. Michelle Appointment date [...] & diabetic . [facility] ALEXANDRA BELLA Chi ([id number]) 1955 F Date Time Provider Department 10/21/24 ELICEO AMBRIZ During your visit today, we recorded the following information about you: Chanel Chambers 10/21/2024 4:35 PM Signed Patient calling stating that [facility] [...] she would greatly appreciate it. Please call [phone]. Patient also states she will prob need a short script sent to her local pharmacy so she is not without. She will use [facility] until the [facility] can be worked out. Neema Berman MA 10/22/2024 11:03 AM Signed Called and spoke with patient and let her know insurance for the second time has denied the RX sent to [facility] for Synthroid. Insurance will only cover the Generic Levothyroxine. They will cover Brand Synthroid with a PA but already stated there is no medical necessity for this. She has agreed to pay out of pocket using [facility] and would like the Brand Synthroid sent to [facility]. I did speak with patient about appointment [...] MASS IN (more content not included)... Normal [facility] Urine Cultureon 09-28-2024 [facility] Mixed Gram Positive Organisms [place] Count 11,000-25,000 MIXC Mixed contaminants. Submit a new specimen if indicated. Normal [facility] Comment on above: Performed By: #### M 100.2200 ####[facility] [address] [place], [address] ALP [Catalytic activity/Vol] Ordered By: Tonja Givens on 09-26-2024 Serum or plasma alkaline phosphatase measurement 117 U/L 45-117 [facility] ALT [Catalytic activity/Vol] Ordered By: Tonja Givens on 09-26-2024 Serum or plasma alanine aminotransferase (ALT) measurement 124 U/L High 13-56 [facility] Abdomen/Pelvis without Conto n 09-26-2024 Abdomen/Pelvis without Cont [facility] Services [address] [place], [place] [id number] Abdomen/Pelvis without Cont MR#: [id number] Acct: [id number] Name: ALEXANDRA BELLA Rep #: [id number] : 1955 F 68 From: Dhiraj Watts MD PCP: Leonora Davalos CRITICAL CARE RN-C Status: REG ER Study: Abdomen/Pelvis without Cont Date of Exam: 09/11 03/05 Exam# [id number] Ordering Dr: Tonja Givens DO [id number] EXAM: CT ABDOMEN AND PELVIS WITHOUT INTRAVENOUS [...] CC: VANESSA Davalos; Dr. Tonja Givens DO [employer] Inspector Repairer: Signed Normal [facility] Absolute lymphocyte countOrd ered By: Tonja Givens on 09-26-2024 Lymphocytes Auto (Unsp spec) [#/Vol] 3.90 10*3/uL 0.83-4.51 [facility] Absolute neutrophil countOrd ered By: Tonja Givens on 09-26-2024 Neutrophils (Bld) [#/Vol] 4.4 10*3/uL 2.0-7.7 [facility] Absolute neutrophil count 4.4 X10^3/uL 2.0-7.7 [facility] Albumin [Mass/Vol]Ordered By : Tonja Givens on 09-26-2024 Serum or plasma albumin measurement (mass/volume) 3.4 g/dL 3.2-5.0 [facility] Albumin to globulin ratioOrd ered By: Tonja Givens on 09-26-2024 Albumin/Globulin [Mass ratio] 0.8 {ratio} Low 0.9-2.4 [facility] Albumin to globulin ratio 0.8 RATIO Low 0.9-2.4 [facility] Automated lymphocyte count a s percentage of total leukocytesOrdered By: Tonja Givens on 09-26-2024 Lymphocytes/100 WBC Auto (Unsp spec) 42.1 % High 19-41 [facility] Basophil percentageOrdered B y: Tonja Givens on 09-26-2024 Basophils/100 WBC (Bld) 0.5 % 0-1 [facility] Basophil percentage 0.5 % 0-1 [facility] Bilirubin Test strip Ql (U)O rdered By: Tonja Givens on 09-26-2024 Bilirubin Ql (U) Negative Negative [facility] Bilirubin, totalOrdered By: Tonja Givens on 09-26-2024 Bilirubin [Mass/Vol] 0.40 mg/dL 0.20-1.[address] [facility] Comment on above: For patients on eltr ombopag therapy, use of Dimension [place] TBIL is not recommended. Bilirubin, total 0.40 mg/dL 0.20-1.00 [facility] Blood urea nitrogen (BUN)/cr eatinine ratioOrdered By: Tonja Givens on 09-26-2024 Urea nitrogen/Creatinine [Mass ratio] 18.6 mg/mg 06-30 [facility] Blood urea nitrogen (BUN)/creatinine ratio 18.6 RATIO 06-30 [facility] CBC W/Diff, Automatedon 09-11 Absolute Lymph 3.90 X10 3/uL Normal 0.83-4.51 [facility] Comment on above: Performed By: #### L 100.0100, L500.4050 ####[facility] [address] [place], [address] Absolute Neut 4.4 X10 3/uL Normal 2.0-7.7 [facility] Comment on above: Performed By: #### L 100.0100, L500.4050 ####[facility] [address] [place], [address] Basophils/100 WBC (Bld) 0.5 % Normal 0-1 [facility] Comment on above: Performed By: #### L 100.0100, L500.4050 ####[facility] [address] [place], [address] Eosinophils/100 WBC (Bld) 1.5 % Normal 0-5 [facility] Comment on above: Performed By: #### L 100.0100, L500.4050 ####[facility] [address] [place], [address] Erythrocyte distribution width (RBC) [Ratio] 13.6 % Normal 11.6-14.6 [facility] Comment on above: Performed By: #### L 100.0100, L500.4050 ####[facility] [address] [place], [address] Hematocrit (Bld) [Volume fraction] 43.7 % Normal 37-47 [facility] Comment on above: Performed By: #### L 100.0100, L500.4050 ####[facility] [address] [place], [address] Hemoglobin (Bld) [Mass/Vol] 14.2 g/dL Normal 12.0-15.0 [facility] Comment on above: Performed By: #### L 100.0100, L500.4050 ####[facility] [address] [place], [address] IG% 0.300 Normal 0.0-0.9 [facility] Comment on above: Result Comment: IG% - Immature Granulocytes (promyelocytes, myelocytes and metamyelocytes) > 1% indicates that a LEFT SHIFT is Present. Performed By: #### L 100.0100, L500.4050 ####[facility] [address] [place], [address] Lymphocytes/100 WBC (Bld) 42.1 % High 19-41 [facility] Comment on above: Performed By: #### L 100.0100, L500.4050 ####[facility] [address] [place], [address] MCH (RBC) [Entitic mass] 29.1 pg Normal 27.0-32.0 [facility] Comment on above: Performed By: #### L 100.0100, L500.4050 ####[facility] [address] [place], [address] MCHC (RBC) [Mass/Vol] 32.5 g/dL Normal 32-36 [facility] Comment on above: Performed By: #### L 100.0100, L500.4050 ####[facility] [address] [place], [address] MCV (RBC) [Entitic vol] 89.5 fL Normal 81-99 [facility] Comment on above: Performed By: #### L 100.0100, L500.4050 ####[facility] [address] [place], [address] Monocytes/100 WBC (Bld) 7.8 % Normal 0-10 [facility] Comment on above: Performed By: #### L 100.0100, L500.4050 ####[facility] [address] [place], [address] Neutrophils/100 WBC (Bld) 47.8 % Normal 47-70 [facility] Comment on above: Performed By: #### L 100.0100, L500.4050 ####[facility] [address] [place], [address] Nucleated RBC (Bld) [#/Vol] 0 10*3/uL Normal 0-5 [facility] Comment on above: Performed By: #### L 100.0100, L500.4050 ####[facility] [address] [place], [address] Platelet mean volume (Bld) [Entitic vol] 10.7 fL Normal 6.2-12.0 [facility] Comment on above: Performed By: #### L 100.0100, L500.4050 ####[facility] [address] [place], [address] Platelets (Bld) [#/Vol] 204 10*3/uL Normal 150-450 [facility] Comment on above: Performed By: #### L 100.0100, L500.4050 ####[facility] [address] [place], [address] RBC (Bld) [#/Vol] 4.88 10*6/uL Normal 4.2-5.4 [facility] Comment on above: Performed By: #### L 100.0100, L500.4050 ####[facility] [address] [place], [address] RDW SD 44.3 fl High 35.1-43.9 [facility] Comment on above: Performed By: #### L 100.0100, L500.4050 ####[facility] [address] [place], [address] WBC (Bld) [#/Vol] 9.3 10*3/uL Normal 4.4-11.0 [facility] Comment on above: Performed By: #### L 100.0100, L500.4050 ####[facility] [address] [place], [address] Calcium [Mass/Vol]Ordered By : Tonja Givens on 09-26-2024 Serum or plasma calcium measurement (mass/volume) 9.9 mg/dL 8.5-10.1 [facility] Carbon dioxide measurementOr dered By: Tonja Givens on 09-26-2024 CO2 [Moles/Vol] 24.0 mmol/L 21.0-32.0 [facility] Carbon dioxide measurement 24.0 mmol/L 21.0-32.0 [facility] Chloride measurementOrdered By: Tonja Givens on 09-26-2024 Chloride [Moles/Vol] 106 mmol/L 98-[address] [facility] Chloride measurement 106 mmol/L 98-[address] [facility] Clarity (U)Ordered By: Gideon Givens on 09-26-2024 Urine clarity Clear Clear [facility] Color (U)Ordered By: Tonja Givens on 09-26-2024 Urine color determination Yellow Yellow [facility] Comprehensive Metabolic Prof ilon 09-26-2024 Albumin [Mass/Vol] 3.4 g/dL Normal 3.2-5.0 [facility] Comment on above: Performed By: #### L 100.0100, L500.4050 ####[facility] [address] [place], [address] Albumin/Globulin [Mass ratio] 0.8 {ratio} Low 0.9-2.4 [facility] Comment on above: Performed By: #### L 100.0100, L500.4050 ####[facility] [address] [place], [address] ALK P 117 U/L Normal 45-117 [facility] Comment on above: Performed By: #### L 100.0100, L500.4050 ####[facility] [address] [place], [address] ALT [Catalytic activity/Vol] 124 U/L High 13-56 [facility] Comment on above: Performed By: #### L 100.0100, L500.4050 ####[facility] [address] [place], [address] AST [Catalytic activity/Vol] 81 U/L High 15-37 [facility] Comment on above: Performed By: #### L 100.0100, L500.4050 ####[facility] [address] [place], [address] Bilirubin [Mass/Vol] 0.40 mg/dL Normal 0.20-1.[address] [facility] Comment on above: Result Comment: For patients on eltrombopag therapy, use of Dimension [place] TBIL is not recommended. Performed By: #### L 100.0100, L500.4050 ####[facility] [address] [place], [address] BUN/CRE 18.6 RATIO Normal 10-20 [facility] Comment on above: Performed By: #### L 100.0100, L500.4050 ####[facility] [address] [place], [address] CA,Total 9.9 mg/dL Normal 8.5-10.1 [facility] Comment on above: Performed By: #### L 100.0100, L500.4050 ####[facility] [address] [place], [address] Chloride [Moles/Vol] 106 mmol/L Normal 98-[address] [facility] Comment on above: Performed By: #### L 100.0100, L500.4050 ####[facility] [address] [place], [address] CO2 [Moles/Vol] 24.0 mmol/L Normal 21.0-32.0 [facility] Comment on above: Performed By: #### L 100.0100, L500.4050 ####[facility] [address] [place], [address] Creatinine [Mass/Vol] 0.81 mg/dL Normal 0.55-1.02 [facility] Comment on above: Result Comment: The validity of the calculated GFR GFRAA in patients over 70 years has not been determined. Clinical correlation is essential. Performed By: #### L 100.0100, L500.4050 ####[facility] [address] [place], [address] ECRCL 88.59 ml/min Normal [facility] Comment on above: Performed By: #### L 100.0100, L500.4050 ####[facility] [address] [place], [address] EST GFR - AA 91 mL/min Normal >60 [facility] Comment on above: Result Comment: Afri can [place] GFR Calc Performed By: #### L 100.0100, L500.4050 ####[facility] [address] [place], [address] GAP 7 Normal 5-15 [facility] Comment on above: Performed By: #### L 100.0100, L500.4050 ####[facility] [address] [place], [address] GFR/1.73 sq M.predicted among non-blacks MDRD (S/P/Bld) [Vol rate/Area] 75 mL/min/{1.73_m2} Normal >60 [facility] Comment on above: Result Comment: Non- GFR Calc Performed By: #### L 100.0100, L500.4050 ####[facility] [address] [place], [address] Globulin (S) [Mass/Vol] 4.1 g/dL Normal 2.2-4.2 [facility] Comment on above: Performed By: #### L 100.0100, L500.4050 ####[facility] [address] [place], [address] Glucose [Mass/Vol] 150 mg/dL High 74-106 [facility] Comment on above: Result Comment: Fast ing Glucose result greater than or equal to 126 mg/dL suggests DIABETES MELLITUS per A.D.A. criteria. Performed By: #### L 100.0100, L500.4050 ####[facility] [address] [place], [address] Potassium [Moles/Vol] 4.1 mmol/L Normal 3.5-5.1 [facility] Comment on above: Performed By: #### L 100.0100, L500.4050 ####[facility] [address] [place], [address] Sodium [Moles/Vol] 137 mmol/L Normal 136-145 [facility] Comment on above: Performed By: #### L 100.0100, L500.4050 ####[facility] [address] [place], [address] T PROT 7.5 g/dL Normal 6.4-8.2 [facility] Comment on above: Performed By: #### L 100.0100, L500.4050 ####[facility] [address] [place], [address] Urea nitrogen [Mass/Vol] 15 mg/dL Normal 7-18 [facility] Comment on above: Performed By: #### L 100.0100, L500.4050 ####[facility] [address] [place], [address] Creatinine [Mass/Vol]Ordered By: Tonja Givens on 09-26-2024 Serum or plasma creatinine measurement (mass/volume) 0.81 mg/dL 0.55-1.02 [facility] Emergency Department Summary on 09-26-2024 Emergency Department Summary [facility] Medical Records Department [address] [place] [address] Emergency Department Summary 09/26/24 MR#: [id number] Acct: [id number] Name: ALEXANDRA BELLA Rep #: [id number] : 1955 68 From: Tonja Givens DO [...] or frequency. She denies any radicular symptoms. 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 Normal [facility] Eosinophil percentageOrdered By: Tonja Givens on 09-26-2024 Eosinophils/100 WBC (Bld) 1.5 % 0-5 [facility] Eosinophil percentage 1.5 % 0-5 [facility] Epithelial cells.squamous LM Ql (Urine sed)Ordered By: Tonja Givens on 09-26-2024 Epithelial cells.squamous LM.HPF (Urine sed) [#/Area] 0 /[HPF] 5-10 [facility] Erythrocyte distribution wid th (RBC) [Ratio]Ordered By: Tonja Givens on 09-26-2024 Erythrocyte distribution width ratio 13.6 % 11.6-14.6 [facility] Erythrocyte distribution width standard deviation 44.3 fl High 35.1-43.9 [facility] Erythrocyte distribution wid th ratioOrdered By: Tonja Givens on 09-26-2024 Erythrocyte distribution width (RBC) [Ratio] 13.6 % 11.6-14.6 [facility] Erythrocyte distribution wid th standard deviationOrdered By: Tonja Givens on 09-26-2024 Erythrocyte distribution width (RBC) [Entitic vol] 44.3 fL High 35.1-43.9 [facility] Erythrocyte distribution width (RBC) [Ratio] 44.3 fl High 35.1-43.9 [facility] Estimated glomerular filtrat ion rate (GFR) AmericanOrdered By: Tonja Givens on 09-26-2024 Estimated GFR (MDRD) Amer 91 mL/min >60 [facility] Comment on above: GFR Calc Estimated glomerular filtration rate (GFR) 91 mL/min >60 [facility] Estimation of creatinine galina aranceOrdered By: Tonja Givens on 09-26-2024 Estimated Creatinine Clearance Calc 88.59 ml/min [facility] Estimation of creatinine clearance 88.59 ml/min [facility] Glomerular filtration rate ( GFR) estimationOrdered By: Tonja Givens on 09-26-2024 Estimated GFR (MDRD) Non-Af Amer 75 mL/min >60 [facility] Comment on above: Non- GFR Calc GFR/1.73 sq M.predicted among non-blacks MDRD (S/P/Bld) [Vol rate/Area] 75 mL/min/{1.73_m2} >60 [facility] Glomerular filtration rate (GFR) estimation 75 mL/min >60 [facility] Glucose Ql (U)Ordered By: Arthur Givens on 09-26-2024 Urine Glucose (UA) Normal mg/dl Normal [facility] Glucose measurementOrdered B y: Tonja Givens on 09-26-2024 Glucose [Mass/Vol] 150 mg/dL High 74-106 [facility] Comment on above: Fasting Glucose resu lt greater than or equal to 126 mg/dL suggests DIABETES MELLITUS per A.D.A. criteria. Glucose measurement 150 mg/dL High 74-106 [facility] Hematocrit Auto (Bld) [Volum e fraction]Ordered By: Tonja Givens on 09-26-2024 Hematocrit (Bld) [Volume fraction] 43.7 % 37-47 [facility] Automated blood hematocrit (percentage) 43.7 % 37-47 [facility] Hemoglobin measurementOrdere d By: Tonja Givens on 09-26-2024 Hemoglobin (Bld) [Mass/Vol] 14.2 g/dL 12.0-15.0 [facility] Hemoglobin measurement 14.2 g/dL 12.0-15.0 [facility] Hyaline casts LM.LPF (Urine sed) [#/Area]Ordered By: Tonja Givens on 09-26-2024 Hyaline casts (Urine sed) [#/Area] 0 /[LPF] 0-5 [facility] Hyaline casts LM Ql (Urine sed) 0-5 SEEN /lpf 0-5 [facility] Urine sediment hyaline cast count by microscopy (number/low power field) 0-5 SEEN /lpf 0-5 [facility] Immature granulocytes/100 WB C Auto (Bld)Ordered By: Tonja Givens on 09-26-2024 Immature granulocytes/100 WBC (Bld) 0.300 % 0.0-0.9 [facility] Comment on above: IG% - Immature Granu locytes (promyelocytes, myelocytes and metamyelocytes) > 1% indicates that a LEFT SHIFT is Present. Automated immature granulocyte percentage 0.300 % 0.0-0.9 [facility] Ketones Test strip Ql (U)Ord ered By: Tonja Givens on 09-26-2024 Ketones Ql (U) Negative Negative [facility] Laboratory - Chemistry and C hemistry - challengeOrdered By: Tonja Givens on 09-26-2024 AST [Catalytic activity/Vol] 81 U/L High 15-37 [facility] Leukocyte esterase Test stri p Ql (U)Ordered By: Tonja Givens on 09-26-2024 Urine leukocyte esterase detection by dipstick 25 /ul High Negative [facility] Lymphocytes Auto (Unsp spec) [#/Vol]Ordered By: Tonaj Givens on 09-26-2024 Lymphocytes (Bld) [#/Vol] 3.90 10*3/uL 0.83-4.51 [facility] Absolute lymphocyte count 3.90 X10^3/uL 0.83-4.51 [facility] Lymphocytes/100 WBC Auto (Un sp spec)Ordered By: Tonja Givens on 09-26-2024 Lymphocytes/100 WBC (Bld) 42.1 % High 19-41 [facility] Automated lymphocyte count as percentage of total leukocytes 42.1 % High 19-41 [facility] MCV (RBC) [Entitic vol]Order ed By: Tonja Givens on 09-26-2024 MCV (mean corpuscular volume) determination 89.5 fL 81-99 [facility] MCV (mean corpuscular volume ) determinationOrdered By: Tonja Givens on 09-26-2024 MCV (RBC) [Entitic vol] 89.5 fL 81-99 [facility] Mean corpuscular hemoglobin (MCH) determinationOrdered By: Tonja Givens on 09-26-2024 MCH (RBC) [Entitic mass] 29.1 pg 27.0-32.0 [facility] Mean corpuscular hemoglobin (MCH) determination 29.1 pg 27.0-32.0 [facility] Mean corpuscular hemoglobin concentration (MCHC) determinationOrdered By: Tonja Givens on 09-26-2024 MCHC (RBC) [Mass/Vol] 32.5 g/dL 32-36 [facility] Mean corpuscular hemoglobin concentration (MCHC) determination 32.5 g/dL 32-36 [facility] Mean platelet volume determi nationOrdered By: Tonja Givens on 09-26-2024 Platelet mean volume (Bld) [Entitic vol] 10.7 fL 6.2-12.0 [facility] Mean platelet volume determination 10.7 fl 6.2-12.0 [facility] Microscopic analysis of urin e for red blood cells (RBC)Ordered By: Tonja Givens on 09-26-2024 Urine RBC 0-5 SEEN /hpf 0-5 [facility] Microscopic analysis of urine for red blood cells (RBC) 0-5 SEEN /hpf 5-10 [facility] Monocyte percentageOrdered B y: Tonja Givens on 09-26-2024 Monocytes/100 WBC (Bld) 7.8 % 0-10 [facility] Monocyte percentage 7.8 % 0-10 [facility] Mucus LM Ql (Urine sed)Order ed By: Tonja Givens on 09-26-2024 Mucus Ql (Urine sed) 1+ /hpf [facility] Neutrophil percentageOrdered By: Tonja Givens on 09-26-2024 Neutrophils/100 WBC (Bld) 47.8 % 47-70 [facility] Neutrophil percentage 47.8 % 47-70 [facility] Nitrite Test strip Ql (U)Ord ered By: Tonja Givens on 09-26-2024 Nitrite Ql (U) Negative Negative [facility] No Panel InformationOrdered By: Tonja Givens on 09-26-2024 81 U/L High 15-37 [facility] Nucleated red blood cell per centageOrdered By: Tonja Givens on 09-26-2024 Nucleated RBC/100 WBC (Bld) [Ratio] 0 % 0-5 [facility] Nucleated red blood cell percentage 0 % 0-5 [facility] Platelet countOrdered By: Arthur Givens on 09-26-2024 Platelets (Bld) [#/Vol] 204 10*3/uL 150-450 [facility] Platelet count 204 K/mm3 150-450 [facility] Potassium measurementOrdered By: Tonja Givens on 09-26-2024 Potassium [Moles/Vol] 4.1 mmol/L 3.5-5.1 [facility] Potassium measurement 4.1 mmol/L 3.5-5.1 [facility] Protein Test strip Ql (U)Ord ered By: Tonja iGvens on 09-26-2024 Protein Ql (U) 15 mg/dl High Negative [facility] Urine protein assay by test strip, semi-quantitative 15 mg/dl High Negative [facility] RBC Auto (Bld) [#/Vol]Ordere d By: Tonja Givens on 09-26-2024 RBC (Bld) [#/Vol] 4.88 10*6/uL 4.2-5.4 [facility] Automated blood erythrocyte count 4.88 M/mm3 4.2-5.4 [facility] Serum anion gap measurementO rdered By: Tonja Givens on 09-26-2024 Anion gap [Moles/Vol] 7 mmol/L 5-15 [facility] Serum anion gap measurement 7 5-15 [facility] Serum globulin measurementOr dered By: Tonja Givens on 09-26-2024 Globulin (S) [Mass/Vol] 4.1 g/dL 2.2-4.2 [facility] Serum globulin measurement 4.1 g/dL 2.2-4.2 [facility] Serum or plasma alanine kim otransferase (ALT) measurementOrdered By: Tonja Givens on 09-26-2024 ALT [Catalytic activity/Vol] 124 U/L High 13-56 [facility] Serum or plasma albumin shamir urement (mass/volume)Ordered By: Tonja Givens on 09-26-2024 Albumin [Mass/Vol] 3.4 g/dL 3.2-5.0 [facility] Serum or plasma alkaline oren sphatase measurementOrdered By: Tonja Givens on 09-26-2024 ALP [Catalytic activity/Vol] 117 U/L 45-117 [facility] Serum or plasma calcium shamir urement (mass/volume)Ordered By: Tonja Givens on 09-26-2024 Calcium [Mass/Vol] 9.9 mg/dL 8.5-10.1 [facility] Serum or plasma creatinine m easurement (mass/volume)Ordered By: Tonja Givens on 09-26-2024 Creatinine [Mass/Vol] 0.81 mg/dL 0.55-1.02 [facility] Comment on above: The validity of the calculated GFR & GFRAA in patients over 70 years has not been determined. Clinical correlation is essential. Serum or plasma urea nitroge n measurement (mass/volume)Ordered By: Tonja Givens on 09-26-2024 Urea nitrogen [Mass/Vol] 15 mg/dL 7-18 [facility] Sodium levelOrdered By: Jonathon Givens on 09-26-2024 Sodium [Moles/Vol] 137 mmol/L 136-145 [facility] Sodium level 137 mmol/L 136-145 [facility] Specific gravity (U) [Rel de nsity]Ordered By: Tonja Givens on 09-26-2024 Urine specific gravity measurement 1.020 1.002-1.030 [facility] Squamous epithelial cells de tection in urine sediment by light microscopyOrdered By: Tonja Givens on 09-26-2024 Epithelial cells.squamous LM Ql (Urine sed) 0-5 SEEN /hpf 5-10 [facility] Total proteinOrdered By: Tu Givens on 09-26-2024 Protein [Mass/Vol] 7.5 g/dL 6.4-8.2 [facility] Total protein 7.5 g/dL 6.4-8.2 [facility] Urea nitrogen [Mass/Vol]Orde red By: Tonja Givens on 09-26-2024 Serum or plasma urea nitrogen measurement (mass/volume) 15 mg/dL 7-18 [facility] Urinalysis, Completeon 09-26 CAST,HYALINE 0-5 SEEN Normal 0-5 [facility] Comment on above: Order Comment: CLEAN CATCH Performed By: #### L 400.0001 ####[facility] [address] [facility] [address] RBC 0-5 SEEN Normal 0-5 [facility] Comment on above: Order Comment: CLEAN CATCH Performed By: #### L 400.0001 ####[facility] [address] [place], [address] WBC 5-10 SEEN Normal 0-5 [facility] Comment on above: Order Comment: CLEAN CATCH Performed By: #### L 400.0001 ####[facility] [address] [place], [address] BACTERIA 1+ /hpf Normal None Seen [facility] Comment on above: Order Comment: CLEAN CATCH Performed By: #### L 400.0001 ####[facility] [address] [place], [address] EPI,SQUAMOUS 0-5 SEEN Normal 5-10 [facility] Comment on above: Order Comment: CLEAN CATCH Performed By: #### L 400.0001 ####[facility] [address] [place], [address] Mucus Ql (Urine sed) 1+ /hpf Normal [facility] Comment on above: Order Comment: CLEAN CATCH Performed By: #### L 400.0001 ####[facility] [address] [place], [address] Urine blood detectionOrdered By: Tonja Givens on 09-26-2024 Urine Occult Blood Negative Negative [facility] Urine clarityOrdered By: Tu Givens on 09-26-2024 Clarity (U) Clear Clear [facility] Urine color determinationOrd ered By: Tonja Givens on 09-26-2024 Color (U) Yellow Yellow [facility] Urine cultureOrdered By: Tu Givens on 09-26-2024 Bacteria identified Cx Nom (U) Positive Abnormal [facility] Urine culture Positive Abnormal [facility] Urine glucose detectionOrder ed By: Tonja Givens on 09-26-2024 Glucose Ql (U) Normal mg/dl Normal [facility] Urine glucose detection Normal mg/dl Normal [facility] Urine leukocyte esterase det ection by dipstickOrdered By: Tonja Givens on 09-26-2024 Leukocyte esterase Test strip Ql (U) 25 /ul High Negative [facility] Urine pHOrdered By: Tonja lazo on 09-26-2024 pH (U) 6.0 [pH] 5.0 - 8.0 [facility] Urine sediment bacteria coun t by microscopy (number/high power field)Ordered By: Tonja Givens on 09-26-2024 Bacteria LM.HPF (Urine sed) [#/Area] 1 /[HPF] None Seen [facility] Urine sediment bacteria count by microscopy (number/high power field) 1+ /hpf [facility] Urine specific gravity measu rementOrdered By: Tonja Givens on 09-26-2024 Specific gravity (U) [Rel density] 1.020 1.002-1.030 [facility] Urine total bilirubin detect ion by test stripOrdered By: Tonja Givens on 09-26-2024 Urine total bilirubin detection by test strip Negative Negative [facility] Urine urobilinogen measureme ntOrdered By: Tonja Givens on 09-26-2024 Urobilinogen Ql (U) Normal mg/dl Normal [facility] Urobilinogen Ql (U)Ordered B y: Tonja Givens on 09-26-2024 Urine Urobilinogen Normal mg/dl Normal [facility] White blood cell (WBC) count Ordered By: Tonja Givens on 09-26-2024 WBC (Bld) [#/Vol] 9.3 10*3/uL 4.4-11.0 [facility] White blood cell (WBC) count 9.3 K/mm3 4.4-11.0 [facility] White blood cell countOrdere d By: Tonja Givens on 09-26-2024 Urine WBC 5-10 SEEN /hpf 0-5 [facility] White blood cell count 5-10 SEEN /hpf 0-5 [facility] White blood cell count 5-10 SEEN /hpf 0-5 [facility] pH (U)Ordered By: Tonja wilson on 09-26-2024 Urine pH 6.0 5.0 - 8.0 [facility] CNPNon 09-24-2024 CNPN Telephone (ENDMED) -------- ALEXANDRA BELLA ([id number]) 1955 F Date Time Provider Department 09/24/24 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 [...] 10:45 AM Signed Called patient's home/cell# at [phone], left voice message to call office at [phone], and ask to speak to the nurse. [...] Mass on (more content not included)... Normal [facility] CNOVon 09-10-2024 CNOV Office Visit (OTMBHT ) -------- ALEXANDRA BELLA Chi ([id number]) 1955 F Date Time Provider Department 09/10/24 9:00 AM [facility] During your visit today, we recorded the following information about you: Royer Ferguson PA-C 09/10/2024 9:02 AM Addendum CHIEF COMPLAINT: Alexandra Bella is [...] knee joint Informed Consent Consent Obtained: Verbal [place] Protocol A moment to CARE was completed. SIGN IN Personnel directly involved with the procedure wore the appropriate PPE. Special Equipment: N/A Patient/Surrogate Stated/Verified: Patient name, Date of , Relevant allergies and Intended procedure (more content not included)... Normal [facility] Large Joint Arthro/Inj: L kn ee jointon 09-10-2024 Royer Ferguson PA-C 09/10/2024 9:02 AM Large Joint Arthro/Inj: L knee joint Informed Consent Consent Obtained: Verbal [place] Protocol A moment to CARE was completed. [...] Plan of Care Visit completed when applicable [facility] PAP IG HPV APTIMA 16/18,45on 09-09-2024 ADEQ Comment Normal . [facility] Comment on above: Order Comment: Speci men Comment: [id number] Comment: Source.............Cervix;EndocervixSpecimen Comment: Other..............Post MenopausalSpecimen Comment: No. of containers..01 ThinPrep Vial Result Comment: Sati sfactory for evaluation. No endocervical component is identified. Performed By: #### L 7400.0280 ####[facility] [address] [facility] [place], [address] COMM . Normal . [facility] Comment on above: Order Comment: Speci men Comment: [id number] Comment: Source.............Cervix;EndocervixSpecimen Comment: Other..............Post MenopausalSpecimen Comment: No. of containers..01 ThinPrep Vial Performed By: #### L 7400.0280 ####[facility] [address] [facility]. [place], [place], [id number] COMMENT Comment Normal . [facility] Comment on above: Order Comment: Speci men Comment: [id number] Comment: Source.............Cervix;EndocervixSpecimen Comment: Other..............Post MenopausalSpecimen Comment: No. of containers..01 ThinPrep Vial Result Comment: This liquid based ThinPrep(R) pap test was screened with the use of an image guided system. Performed By: #### L 7400.0280 ####[facility] [address] [place], [place], [id number] DIAG Comment Normal . [facility] Comment on above: Order Comment: Speci men Comment: [id number] Comment: Source.............Cervix;EndocervixSpecimen Comment: Other..............Post MenopausalSpecimen Comment: No. of containers..01 ThinPrep Vial Result Comment: NEGA TIVE FOR INTRAEPITHELIAL LESION OR MALIGNANCY. Performed By: #### L 7400.0280 ####[facility] [address] [facility]. [place], [place], [address] HPV APTIMA, HR Negative Normal Negative [facility] Comment on above: Order Comment: Speci men Comment: [id number] Comment: Source.............Cervix;EndocervixSpecimen Comment: Other..............Post MenopausalSpecimen Comment: No. of containers..01 ThinPrep Vial Result Comment: This nucleic acid amplification test detects fourteen high- risk HPV types (16,18,31,33,35,39,45,51,52,56,58,59,66,68) without differentiation. Performed By: #### L 7400.0280 ####[facility] [address] [place], [place], [address] HPV Carlota Rfx Comment Normal . [facility] Comment on above: Order Comment: Speci men Comment: [id number] Comment: Source.............Cervix;EndocervixSpecimen Comment: Other..............Post MenopausalSpecimen Comment: No. of containers..01 ThinPrep Vial Result Comment: Crit eria not met, HPV Genotype not performed. Performed at: [address] [id number] Wheat Inspector: Liz Donovan MD, Phone: [phone] Performed at: =[address] [id number] Wheat Inspector: Liz Donovan MD, Phone: [phone] Performed By: #### L 7400.0280 ####[facility] [address] [place], [place], [id number] PAPSMR Comment Normal . [facility] Comment on above: Order Comment: Speci men Comment: [id number] Comment: Source.............Cervix;EndocervixSpecimen Comment: Other..............Post MenopausalSpecimen Comment: No. [...] do occur. Performed By: #### L 7400.0280 ####[facility] [address] [place], [place], [id number] PERFORM Comment Normal . [facility] Comment on above: Order Comment: Speci men Comment: [id number] Comment: Source.............Cervix;EndocervixSpecimen Comment: Other..............Post MenopausalSpecimen Comment: No. of containers..01 ThinPrep Vial Result Comment: Tamiko Madsen Bending Roll Hand (ASCP) Performed By: #### L 7400.0280 ####[facility] [address] [place], [place], [address] DIAG MAMM W/CAD, BILATon DIAG MAMM W/CAD, BILAT [facility] Imaging Services [address] [place], [place] [address] DIAG MAMM W/CAD, BILAT MR#: [id number] Acct: [id number] Name: ALEXANDRA BELLA Rep #: [id number] : 1955 F 68 From: Orville Cortez MD PCP: Leonora Davalos, IJEOMA-C Status: REG CLI Study: DIAG MAMM W/CAD, BILAT Date of Exam: 09/05/24 Exam# [id number] Ordering Dr: Cayla Jolley [id number] MAMMOGRAPHY - BILATERAL DIAGNOSTIC REASON FOR EXAM: [...] CC: VANESSA Davalos; Dr. Cayla Jolley MD Sandstone Inspector Repairer: Signed [facility] Office Visit (OTMBHT ) -------- ALEXANDRA BELLA ([id number]) 1955 F Date Time Provider Department 09/03/24 [...] knee joint Informed Consent Consent Obtained: Verbal [place]ickory Protocol A moment to CARE was completed. [...] 20 mg (more content not included)... Normal [facility] Large Joint Arthro/Inj: bila teral knee jointson 09-03-2024 Royer Ferguson PA-C 09/03/2024 10:55 AM Large Joint Arthro/Inj: bilateral knee joints Informed Consent Consent Obtained: Verbal [place]ory Protocol A moment to CARE was completed. [...] Plan of Care Visit completed when applicable [facility] Chest PA and Lateralon 09-02 Chest PA and Lateral [facility] Imaging Services [address] [place] [address] Chest PA and Lateral MR#: [id number] Acct: [id number] Name: ALEXANDRA BELLA Rep #: [id number] : 1955 F 68 From: Orville Cortez MD PCP: VANESSA Gilliland Status: REG CLI Study: Chest PA and Lateral Date of Exam: 09/02/24 Exam# [id number] Ordering Dr: Marissa Camp NP [id number] STUDY: X-RAY CHEST REASON FOR EXAM: Female, [...] EST , CC: VANESSA Camp; VANESSA Davalos Sandstone Inspector Repairer: Signed Normal [facility] Director Regulatory Agency Cyto stain Nom (C vx/Vag) [ID]Ordered By: Cayal Jolley on 09-02-2024 Pap Smear Performed By Comment . [facility] Comment on above: Oliver Price totechnologist (ASCP) Cytology report Cyto stain D oc (Cvx/Vag)Ordered By: Cayla Jolley on 09-02-2024 Thin Prep Pap Smear Comment . [facility] Comment on above: The Pap smear is [...] 09-02-2024 HPV Genotype Special Info Comment . [facility] Comment on above: Criteria not met, HP V Genotype not performed.Performed at: - [address] [id number] Director: Liz Donovan MD, Phone: [phone] at: = - [facility] [id number] Director: Liz Donovan MD, Phone: [phone] HPV 16+18+31+33+35+39+45+51+ 52+56+58+59+66+68 DNA Probe+sig amp Ql (Cvx)Ordered By: Cayla Jolley on 09-02-2024 Human Papillomavirus High Risk Negative Negative [facility] Comment on above: This nucleic acid am plification test detects fourteen high-risk HPV types (16,18,31,33,35,39,45,51,52,56,58,59,66,68)without differentiation. Detection in cervical specimen of any of human papilloma virus (HPV) 16, 18, 31, 33, Negative Negative [facility] Image-guided ThinPrep PapOrd ered By: Cayla Jolley on 09-02-2024 Pap Smear Note Comment . [facility] Comment on above: This liquid based Th inPrep(R) pap test was screened withthe use of an image guided system. Image-guided liquid-based Pa pOrdered By: Cayla Jolley on 09-02-2024 Pap Smear Diagnosis Comment . [facility] Comment on above: NEGATIVE FOR INTRAEP ITHELIAL LESION OR MALIGNANCY. Image-guided liquid-based Pap Comment . [facility] Maori Physiotherapist Office Visit Reporton 09-02-2024 Maori Physiotherapist Office Visit Report [facility] [address], [address] [place] [address] OFFICE VISIT Date of Service: 09/02/24 MR#: [id number] Acct: [id number] Name: ALEXANDRA BELLA Rep #: [id number] : 1955 Provider: Dr. 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 Complaint: Annual Gift Shop Manager Required: No Is patient in pain?: Yes [...] meter (FreeStyle #1 ea 01/06/20 03/18/24 Rx [place] Lite kit) lancing device with lancets kit #1 ea 08/13/20 03/18/24 Rx ([place] Delica Plus Lancing Device kit) compress.stocking,knee,r eg,lrg [...] (Eliquis) 5 mg PO BID #180 tabs 08/12/24 12/23/24 Rx flecainide 100 mg tablet 100 mg [...] No : No Nurse's Note: Annual [facility] Medical History Bilateral acute otitis media Type 2 diabetes mellitus with hyperglycemia Shingles Right bundle branch block (RBBB) Nonobstructive atherosclerosis of coronary artery Chronic diastolic (congestive) heart failure Bronchitis 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 Normal [facility] Pulmonary Visit Reporton Pulmonary Visit Report [facility] of [address] [place] [address] OFFICE VISIT Date of Service: 09/02/24 MR#: [id number] Acct: [id number] Name: ALEXANDRA BELLA Rep #: [id number] : 1955 Provider: VANESSA Camp Age/Sex: 68/F Location: [facility] [place].[facility] Status: Signed Assessment and Plan Assessment and [...] Reasons: 6 M FU Chief Complaint: Annual Gift Shop Manager Required: No DME Vendor: [employer] Allergies infliximab (From Remicade) Allergy (Severe, Verified 09/02/24 10:47) Anaphylaxis oxymet (more content not included)... Normal [facility] Service comment (Unsp spec) [Interp]Ordered By: Cayla Jolley on 09-02-2024 Pap Smear Comment (3) . . [facility] . [facility] 08-27-2024 CNOV Office Visit (OTMBHT ) -------- ALEXANDRA BELLA ([id number]) 1955 F Date Time Provider Department 08/27/24 8:30 AM ROYER FERGUSON OTLUIS CARLOS During your visit today, we recorded the following information about you: Royer Ferguson PA-C 08/27/2024 9:02 AM Signed CHIEF COMPLAINT: Alexandra Bella is a 68 year old female who presents today for left knee pain/ Euflexxa injections PAIN EVALUATION 08/23/20245 Pain Level: 6 Description: Aching;Sore;Stiffness;Te nderness;Throbbing;Tight ness [...] knee joint Informed Consent Consent Obtained: Verbal [place] Protocol A moment to CARE was completed. [...] been reviewed. (more content not included)... Normal [facility] Large Joint Arthro/Inj: L kn ee jointon 08-27-2024 Royer Ferguson PA-C 08/27/2024 9:02 AM Large Joint Arthro/Inj: L knee joint Informed Consent Consent Obtained: Verbal [place] Protocol A moment to CARE was completed. [...] Plan of Care Visit completed when applicable [facility] CNOVon 08-07-2024 CNOV Office Visit (OTMBHT ) -------- ALEXANDRA BELLA ([id number]) 1955 F Date Time Provider Department 08/07/24 [...] at end range of flexion due to pressure and tightness Quadriceps examination full (5/5) quadriceps strength bilaterally without signs of atrophy Patellar examination Decreased patellar mobility Positive patellar grind testing Tenderness medial joint line and popliteal fossa Meniscus difficult to assess secondary to pain Stability Collateral and cruciate knee ligaments (ACL/PCL/LCL/MCL) are all intact with no significant laxity noted bilaterally IMAGING: Final results and radiologist's interpretation, available in the [facility] health record. Images were reviewed with the patient/family members in the office today. My personal interpretation of the performed imaging is chronic degenerative changes. CLINICA (more content not included)... Normal [facility] XR KNEE 4V AP/PA BOTH+LAT/ME R [...] since 03/14/2012. IMPRESSION: Severe osteoarthritis left knee Sandstone Inspector Repairer: GISELLE Transcribe Date/Time: Aug 07 2024 2:24P Dictated by : STEVEN LERMA MD This examination was interpreted and the report reviewed and electronically signed by: STEVEN LERMA MD on Aug 07 2024 2:25PM EST [id number] Normal [facility] XR Knee - left 4 Viewson IMPRESSION: Severe osteoarthritis left knee Sandstone Inspector Repairer: PSCB Transcribe Date/Time: Aug 07 2024 2:24P Dictated [...] progressed since 03/14/2012. DIVISION OF RADIOLOGY Provider, [facility] Pallavi Cerda - 08/07/2024 * * *Final Report* * [...] 03/14/2012. IMPRESSION IMPRESSION: Severe osteoarthritis left knee Sandstone Inspector Repairer: GISELLE Transcribe Date/Time: Aug 07 2024 2:24P Dictated by : STEVEN LERMA MD This examination was interpreted and the report reviewed and electronically signed by: STEVEN LERMA MD on Aug 07 2024 2:25PM EST [facility] Radiology Study observation (narrative) Yosvany Godfrey XR Knee - left 4 ViewsOrdere d By: [facility] Provider on 08-07-2024 [facility] GLOOKO ON DEMANDon 4 Ordered by an unspecified provider. [facility] HEMOGLOBIN A1C (POC)on 04-17 HbA1c (Bld) [Mass fraction] 7.5 % Abnormal 4.3 - 5.6 % [facility] Comment on above: Location:[address], [address] Point of care (POC) Hemoglobin A1c (HGBA1C) [...] specific diabetes management situations: The POC device reconciler provides a normal range of 4.2% to 6.5% for the HGBA1C POC test. However, the [place] [employer] guidelines indicate that patients with [...] Interpretation and review of laboratory results Abnormal [facility] No Panel Informationon 03-22 IMPRESSION: Increased echotexture liver sonographically consistent with fatty liver changes Cholecystectomy without abnormal bile duct dilatation Sandstone Inspector Repairer: GISELLE Transcribe Date/Time: Mar 22 2024 9:52A Dictated by : TAMIA RIOS MD This examination was interpreted and the report reviewed and electronically signed by: TAMIA RIOS MD on Mar 22 2024 9:54AM EST [facility] [employer] No Panel InformationOrdered By: [facility] Provider on 03-22-2024 [facility] US ABD SPLEEN - NBon 024 * [...] Cholecystectomy Right Kidney: No hydronephrosis. Ascites: None. [facility] SYNGO Provider, [facility] - 03/22/2024 * * *Final Report* * [...] changes Cholecystectomy without abnormal bile duct dilatation Sandstone Inspector Repairer: GISELLE Transcribe Date/Time: Mar 22 2024 9:52A Dictated by : TAMIA RIOS MD This examination was interpreted and the report reviewed and electronically signed by: TAMIA RIOS MD on Mar 22 2024 9:54AM EST [facility] Radiology Study observation (narrative) [facility] US Abdomen RUQon 03-22-2024 * * *Final [...] Cholecystectomy Right Kidney: No hydronephrosis. Ascites: None. [facility] SY[facility] Provider, [facility] - 03/22/2024 * * *Final Report* * [...] changes Cholecystectomy without abnormal bile duct dilatation Sandstone Inspector Repairer: [facility] Transcribe Date/Time: Mar 22 2024 9:52A Dictated by : TAMIA RIOS MD This examination was interpreted and the report reviewed and electronically signed by: TAMIA RIOS MD on Mar 22 2024 9:54AM [facility] Radiology Study observation (narrative) [facility] CT Abdomen and Pelvis W cont rast Tavia 03-19-2024 IMPRESSION: Mild wall thickening of the sigmoid colon which may represent mild diverticulitis/colitis. No fluid collection or pneumoperitoneum. Sandstone Inspector Repairer: [facility] Transcribe Date/Time: Mar 19 2024 4:19P Dictated by : PADDY GARCÍA MD This examination was interpreted and the report reviewed and electronically signed by: PADDY GARCÍA MD on Mar 19 2024 4:26PM [facility] RADIOLOGY SYNGO * * *Final Report* * * DATE OF EXAM: Mar 19 2024 12:53PM [facility] 0530 - CT ABD/PEL W IVCON / [...] subsegmental atelectasis. Localizer images: No additional findings. [facility] SYNGO Provider, [facility] - 03/19/2024 * * *Final Report* * * DATE OF EXAM: Mar 19 2024 12:53PM [facility] 0530 - CT ABD/PEL W IVCON / [...] mild diverticulitis/colitis. No fluid collection or pneumoperitoneum. Sandstone Inspector Repairer: GISELLE Transcribe Date/Time: Mar 19 2024 4:19P Dictated by : PADDY GARCÍA MD This examination was interpreted and the report reviewed and electronically signed by: PADDY GARCÍA MD on Mar 19 2024 4:26PM EST [facility] Radiology Study observation (narrative) [facility] CT Abdomen and Pelvis W cont rast IVOrdered By: [facility]cf Provider on 03-19-2024 [facility] Liver ultrasound attenuation by transient elastographyon 03-12-2024 Radiology Study observation (narrative) [facility] Liver ultrasound attenuation by transient elastographyon 03-11-2024 [...] consider further testing to confirm. Joon Bustillos APRN.[facility] Fibroscan Fibrosis Risk <7 kPA = F0-F2 [...] steatosis) Reference Juan Luis Y, Fidel Q, Mcknight T, Ladan J, Juan Luis H, Clifton T. Controlled attenuation parameter for assessment of hepatic steatosis grades: a diagnostic meta-analysis. Int J Clin Exp Med. 2015 Jun 25;8(10):84940-55. PMID: 91661299; PMCID: XYY4928611. Butch Hawley, Briana BEACH, Kandice M, Hany F, Aliza J, Alessandro O, Jason F, Gulshan M, Shad G, Justin A, Mikael E, Alphonso L, Chloé G, Tomasz A, Aliyah U, Andi S, Lui P, Rajan V, Dan V, Darshan M, Floyd NAIK. Refining the Baveno elastography criteria for the definition of compensated advanced chronic liver disease. J Hepatol. 2020;74(5):1602-1363. doi: 10.1016/j.jhep.2020.11.0 50. Epub 2019Aug 19. PMID: 29006692. Alley Hawley, Colt Chang, Rony Hawley, Leila Hawley, Daniela Jacob, Gloria Glynn, Nicholas Glynn, Darin Adam. [facility] practice guidance on the clinical assessment and management of nonalcoholic fatty liver disease. Hepatology. 2022;77(5):1646-6731. doi:10.1097/HEP.26146112 [id number] [facility] Radiology Study observation (narrative) [facility] HEMOGLOBIN A1C (POC)on 05-03 HbA1c (Bld) [Mass fraction] 8.6 % Abnormal 4.2 - 5.6 % [facility] Lipid 1996 panelon Cholesterol [Mass/Vol] 223 mg/dL High <200 mg/dL [facility] Cholesterol in HDL [Mass/Vol] 50 mg/dL >39 mg/dL [facility] Cholesterol in LDL [Mass/Vol] 141 mg/dL High <100 mg/dL [facility] Cholesterol in LDL/Cholesterol in HDL [Mass ratio] 2.82 {ratio} High <2.54 [facility] Cholesterol in VLDL [Mass/Vol] 32 mg/dL High <30 mg/dL [facility] Cholesterol non HDL [Mass/Vol] 173 mg/dL High <130 mg/dL [facility] Cholesterol.total/Choles terol in HDL [Mass ratio] 4.46 {ratio} <5.10 [facility] Fasting Time 12 hrs [facility] Triglyceride [Mass/Vol] 162 mg/dL High <150 mg/dL [facility] TSH BLDon 05-03-2023 TSH Qn 2.280 m[IU]/L 0.270 - 4.200 mIU/L [facility] Laboratory - Hematology and Cell countson 01-23-2023 HbA1c (Bld) [Mass fraction] 7.9 % 4.2-6.3 [facility] Absolute lymphocyte countOrd ered By: Mehrdad Ruth on 2022 Lymphocytes Auto (Unsp spec) [#/Vol] 3.03 10*3/uL 0.83-4.51 [facility] Basophil percentageOrdered B y: Mehrdad Ruth on 2022 Basophils/100 WBC (Bld) 0.3 % 0-1 [facility] Bilirubin [Mass/Vol] 0.50 mg/dL 0.20-1.[address] [facility] Comment on above: For patients on eltr ombopag therapy, use of Dimension [place] TBIL is not recommended. Chloride [Moles/Vol] 106 mmol/L 98-[address] [facility] Cholesterol [Mass/Vol] 217 mg/dL <200 [facility] Comment on above: <200 mg/dL Desirable 200-240 mg/dL Borderline >240 mg/dL High Risk Eosinophils/100 WBC (Bld) 1.7 % 0-5 [facility] Glucose [Mass/Vol] 156 mg/dL 74-106 [facility] Comment on above: Fasting Glucose resu lt greater than or equal to 126 mg/dL suggests DIABETES MELLITUS per A.D.A. criteria. Neutrophils (Bld) [#/Vol] 2.5 10*3/uL 2.0-7.7 [facility] Neutrophils/100 WBC (Bld) 40.9 % 47-70 [facility] Potassium [Moles/Vol] 4.2 mmol/L 3.5-5.1 [facility] Protein [Mass/Vol] 8.0 g/dL 6.4-8.2 [facility] Sodium [Moles/Vol] 139 mmol/L 136-145 [facility] Triglyceride [Mass/Vol] 142 mg/dL <199 [facility] Comment on above: The drugs N-Acetylcy steine and Metamizole may falsely depress this assay.Serum Triglycerides Reference Interval Normal <150 mg/dL Borderline high 150 - 199 mg/dL High 200 - 499 mg/dL Very High > or = 500 mg/dL WBC (Bld) [#/Vol] 6.0 10*3/uL 4.4-11.0 [facility] Blood erythrocytes count (nu mber/volume)Ordered By: Mehrdad Ruth on 2022 RBC (Bld) [#/Vol] 4.79 10*6/uL 4.2-5.4 [facility] Blood hemoglobin measurement (mass/volume)Ordered By: Mehrdad Ruth on 2022 Hemoglobin (Bld) [Mass/Vol] 14.0 g/dL 12.0-15.0 [facility] Blood lymphocytes/100 leukoc ytesOrdered By: Mehrdad Ruth on 2022 Lymphocytes/100 WBC (Bld) 50.6 % 19-41 [facility] Blood monocytes/100 leukocyt esOrdered By: Mehrdad Ruth on 2022 Monocytes/100 WBC (Bld) 6.3 % 0-10 [facility] Blood platelet mean volumeOr dered By: Mehrdad Ruth on 2022 Platelet mean volume (Bld) [Entitic vol] 11.4 fL 6.2-12.0 [facility] Determination of erythrocyte mean corpuscular volume (MCV)Ordered By: Mehrdad Ruth on 2022 MCV (RBC) [Entitic vol] 90.4 fL 81-99 [facility] Direct bilirubinOrdered By: Mehrdad Ruth on 2022 Bilirubin.direct [Mass/Vol] 0.10 mg/dL 0.00-0.30 [facility] Hematocrit Auto (Bld) [Volum e fraction]Ordered By: Mehrdad Ruth on 2022 Hematocrit (Bld) [Volume fraction] 43.3 % 37-47 [facility] Laboratory - Chemistry and C hemistry - challengeOrdered By: Mehrdad Ruth on 2022 ALP [Catalytic activity/Vol] 179 U/L 45-117 [facility] ALT [Catalytic activity/Vol] 180 U/L 13-56 [facility] CO2 [Moles/Vol] 27.0 mmol/L 21.0-32.0 [facility] Globulin (S) [Mass/Vol] 4.4 g/dL 2.2-4.2 [facility] Urea nitrogen/Creatinine [Mass ratio] 18.4 mg/mg 10-20 [facility] - Hematology and Cell countsOrdered By: Mehrdad Ruth on 2022 Erythrocyte distribution width (RBC) [Entitic vol] 45.1 fL 35.1-43.9 [facility] Erythrocyte distribution width (RBC) [Ratio] 13.6 % 11.6-14.6 [facility] Immature granulocytes/100 WBC (Bld) 0.200 % 0.0-0.9 [facility] Comment on above: IG% - Immature Granu locytes (promyelocytes, myelocytes and metamyelocytes) > 1% indicates that a LEFT SHIFT is Present. MCH (RBC) [Entitic mass] 29.2 pg 27.0-32.0 [facility] Nucleated RBC/100 WBC (Bld) [Ratio] 0 % 0-5 [facility] MCHC Auto (RBC) [Mass/Vol]Or dered By: Mehrdad Ruth on 2022 MCHC (RBC) [Mass/Vol] 32.3 g/dL 32-36 [facility] No Panel InformationOrdered By: Mehrdad Ruth on 2022 Estimated GFR (MDRD) Amer 98 mL/min >60 [facility] Comment on above: GFR Calc Estimated GFR (MDRD) Non-Af Amer 81 mL/min >60 [facility] Comment on above: Non- GFR Calc Thyroid Stimulating Hormone (TSH) 1.03 uIU/mL 0.358-3.74 [facility] Platelets bldOrdered By: Luther Ruth on 2022 Platelets (Bld) [#/Vol] 204 10*3/uL 150-450 [facility] Serum or plasma albumin shamir urement (mass/volume)Ordered By: Mehrdad Ruth on 2022 Albumin [Mass/Vol] 3.6 g/dL 3.2-5.0 [facility] Serum or plasma calcium shamir urement (mass/volume)Ordered By: Mehrdad Ruth on 2022 Calcium [Mass/Vol] 9.5 mg/dL 8.5-10.1 [facility] Serum or plasma cholesterol in HDL measurement (mass/volume)Ordered By: Mehrdad Ruth on 2022 Cholesterol in HDL [Mass/Vol] 52 mg/dL >40 [facility] Comment on above: The drugs N-Acetylcy steine and Metamizole may falsely depress this assay. Reference Range HDL <40 mg/dL Low HDL Cholesterol HDL >or= 60 mg/dL High HDL Cholesterol Serum or plasma cholesterol in VLDL measurement (mass/volume)Ordered By: Mehrdad Ruth on 2022 Cholesterol in VLDL [Mass/Vol] 28 mg/dL 5-40 [facility] Serum or plasma creatinine m easurement (mass/volume)Ordered By: Mehrdad Ruth on 2022 Creatinine [Mass/Vol] 0.76 mg/dL 0.55-1.02 [facility] Comment on above: The validity of the calculated GFR & GFRAA in patients over 70 years has not been determined. Clinical correlation is essential. Serum or plasma low density lipoprotein (LDL) cholesterol measurement (mass/volume)Ordered By: Mehrdad Ruth on 2022 Cholesterol in LDL [Mass/Vol] 137 mg/dL 0-130 [facility] Serum or plasma urea nitroge n measurement (mass/volume)Ordered By: Mehrdad Ruth on 2022 Urea nitrogen [Mass/Vol] 14 mg/dL 7-18 [facility] Thin prep Papanicolaou smear with manual screeningOrdered By: Mehrdad Ruth on 2022 Thin prep Papanicolaou smear with manual screening 127 U/L 15-37 [facility] Thin prep Papanicolaou smear with manual screening 6 5-15 [facility] Whole blood hemoglobin A1c/t otal hemoglobin ratio (mass fraction)Ordered By: Mehrdad Ruth on 2022 HbA1c (Bld) [Mass fraction] 7.0 % 3.8-5.6 [facility] Comment on above: Normal < 5.7 % Predi abetic 5.7 - 6.4 % Diabetic >or= 6.5 % Please note range changes. SURGICAL PATHOLOGYOrdered By : Samaria Calderón on 11-03-2022 Case Report Surgical Pathology Report Case: [id number] Authorizing Provider: Rosy Esteban MD Collected: 11/01/2022 [...] - COLON LEFT BIOPSY, r/o microscopic colitis [facility] Work Phone: Diagnosis Comment f2yacFTwGBMlpFMdRZCf NVxh ilNiZSAzkJIfN0LssiouUPwr VQ2sIO5itTiglPPhjZEkAEWf NiYbo8flt036fCIyo1lnCFGP qqidpIx6eCyxZ62hf7P9Bwei Q49ogHJcSIU1AYKlCQZsfQGf XFMyFBV0IFZsyYApT2icIDXf CE8fxtouSGjhHDrtEAOyjDB5 XRQqsTGwI2McKGAqACwdJECj tbk7TdZaTr7keDPesObuBBwf LRGqEWJvEKpyOGQuTtHfMI5o NOfiKLiyt5PudO0cwMkltJ0p wOGlIxCldVKpSQItNILmDZ8s zBOuXN5iZU3plr6lfOQqxIZb EbChcuRpsLD7OIGcUFHvZZ0r zI1dhL6eFIV3rD24ztCdpeVn qE4qjF6xhdGuO3Svs6YgPPWk t3Cln1DatgmqxL2fMMuqEGPp yQEkKzKxcDSoEPO5pQ7khBsb YHZwhI7qjIRxXAQnHTQ2lyt1 sSKxUZnuLQQfJ9BozkepdLWu rsQxT2Spt7CoGFSavpIsfER2 NS6xh8Rxf0e5lAHbOIEptUJq f8ZgaRv8QRBjZDJcmZdbjpLw x98nDLEol9DjbY9kxU34l6ry ntXpA0VzSWLifkSHlc8tvumd KNAal6Hld8YaZJWoBYB7yDXo TLEvrxTadM3ylWAseYRweNlu cjNkTR1ytg9tmXPmk3reEGfu BL39hJ8zwyJvNI5lVXIbztng VTdyuaDyKMLpssslg5ZxmhMc biBJSSByZWNlcHRvciBhbnRh P95sdEW5akdqBCArYtwyIZDh s12gKE86qACmkh7mI22yezIj YKKkm94kn9x8qWB1rGIfjMC8 vYEkmRogALPyhJ8tE9BrOPed z6XwxhoyCY4cHKLglo4al8me ZkFirRKktRGsIDtqPXKrX39q bWVuZGVkLlxwYXJ9 [facility] Work Phone: FINAL DIAGNOSIS x1jdcZOqHHWogWEvYSKa NVxh zcOfJZEtqJNxS6SrefewBWzt BV9yNE3dgHaujJUuiRHeUACj DtZqe2vzy720mIUnn0cxGCKC bkvluEo6qFgjM61zx1I0Citw E80ltOKfSFP4UMMcDNNttQAf CENdXBK8IJSlsBHvQ0urVUUv QG4lchkcCUdsBWklFSNjfXZ9 ABVvyRXyF3HvYYOgFKmrGMOa msl2VqSqWo3qrNVnfYzdGLov RENkTNBvGGvlHGKyZmUhRK7w E16uvAcriC00ZTC2oE2gPVLk wF7zl0r8MVrerzYhNWBVhG7j JN2fnKQcqYTfe5Alb2w2oDHd nhGvuiKyS2AmddoahD75bfQw roJauLVoK7U5zzCkUV7lELmz xCRxBHHmgMxxxItfhGDzxR3h kN6fmACzb9xgLGRuJGEvA81s eBKgvS4jcBzsQGekwU4cTRVq CTD2l44wN6clOFGopRN3aWqe KqgziKN8VcpkyR5vVC9tUwPd D3ZdhgGnX8VfgMEfxBM3aVfs u3c9kMQimJdjPFFnqb9miKGg gD8iL6MtpwBuK1BtzWIqgXmj XrcrrN3gAX4jMq7utL80BHU9 rY5jdEJpCLQwuChkr2rhRF9u XF6uzeLna3trU9bnAXJ0tIBp zmXhKA7mTVoxWZqekDich1Zv V4CwiqPnbVyfmwaqyAPsGH9x L9UpsMKolp3ynXqcBCsvtG5i LRTdQNE8l63kD7nbAFEtnEej ZVXtuY9oj6l3PFwabsUzZEGZ nF2gpEXdA9kxviFwvQ6fpIMi XGxpbmVcbGluZSBELiBHYXN0 io1ui43nhHLaDARlDMb4blT5 nJ3rZBPrBWQoxEojZymelRE3 EroimB6gFR3lW2W6GV6igPSe VLNqoTrhV9IffJLqcQEsm4Jw PR3bVW9aeKJshFXecdSoWE2s OHHcBNP7twcaBIAkyuTlj1S7 qkOmEg98iVYbHJ83Q37qKQR8 yCXqKQCvEPT3dQUaQVWovMLg KZnhLDonE6wmlbydmchfkuYh BYDztuCnDd0rLYldjPBtlThm OFqhkAX3ZUMdFCGzJW0zoVao UUcezO3bLHBaGQJkfB8oMHXt kDeceGveJxfvpLB7YkyebW6n JN9dR50lz23zIhFmgNJyz3Lk h4e3vXYybpKrzMtjjWLzR5Ei rHCvRARbh3glP0bqTUPyDS1m IN8wqPbnIHfrtW2hAQPsMGKu qL5mIXNlHBO2QJQnwQ6nn3q2 HYrtrzPxAKYDk2jwvkwoOA30 Q61jYZX6wXNlJA6rEGPaC78g FfsrQS12JJPdzOownN6abJUu O2sbrfgwHutmKUU8 [facility] Work Phone: Gross Description r7dieQWwLLGtjWLBZKCz MDRc LA3ytSjngBo0zAgiNBXyodF9 mCAgIShit1hpALF9w4wzeeFP ClxkZWZmMVxwYXBlcncxMjI0 GGhjSAAhqlsoTWb5CTrjKQWx aQI5OIGutCPxR7YgBRXsOK8y gia8JWI8BVldYWXyDkS2KDJj QjHsHiwkHCj7PBNknkR4Mfd7 GQKfLZKeoFXaw0V6XUfcmenb MMJjzSWsA420QBzku0EtsXLd DQpccGFyZCANCntcKlxlcGlj t2IgjZAaRGebFHIpZZKmEEmw acjiCGl2PJCcOIpbpZWjPC7s hWkfKsudpYfen7XrsFJxNAcg WTKyWGPgHSdwLKPjHH8NZnYn LAK3WARpDGJ2OfF3PSx7EARA WmUxMwKhRgc1NNHnRSRuPTh1 ODg0TAvXRuA8PQTzGOJpLEK6 OOQ6VZU5MBwcxCIvYMguVmVR iqpkkKIvCNIfWQpoqiJ0ZVUb YWluIEEuIFNNQUxMIElOVEVT SLrDNYERRF1DG7xspUNcGF7E OFJtlVCWKQA9HV6gDGEKBghb yUPpNCTmrDprHEztiF7uXP4F DHf0gxEdGVBdLjUjPdXnXUi4 SETohV5mPf5woCGfkS0gJGHp QS17iRHxrUqfVFVfYAQotwNt DpI4QZ9qMwFpo28eEWKpXuEf gEgsq7UcKTVyZ7QgI7F5aI6g SRWrPIRaYhX0EXWpXgN7RWOt MvXnaW0yKO77UTiluIFvbBSw qPY1MONlnZ4cg56mPQVca8Nz mTQrSeyljD7zAL2GJTWbtCEO RWL2RB7gXCp8HDkfYXVfL5Ce F9MeniKtlFHwNDRwwfEny7dw GZO9WBQggFObuRYqPdVsWobc AIO7GBXmZMklLU1Tc8iiMAQl xFIaYCX6VVtjjVLrSSSgNCYb DEyxSeQqG6PDNSEqGzWvXIFj SZdoNQg5AAm5SL4PYvTfKDEf TbP7LGJqNATzSZc0ODvuFQ4E WSc1LXRuZBTeWlDdFXWoXKYc MPy4FJPgVWtpIYScuJRaANrk YjdjPNeuI84gyFtubI9yQnUg MfzmaKKaebYLLhJRUzEAYL8l SQHAZ29SZ8vjUGMTZ2XFOEik SXRhYGduHTEqL90ok7MXr7Ov JW0YOJb7nvQljzasqR5iBQGv riXqZGqstCAqT3eeTvGeKNKV LDJjmNZvTLPvmpNua6ZsWNeb biBhcmUgdHdvIHBpZWNlcyBv ZvK4KB5zWcHzs89dOPMaCqGw wDmpx0UdPRLsC0XjO6V2xQ9i MAUuUOZjFQK0AGPtRcV6CUSc XyHqaX7lZL81QVjmxPMowMKd dCV4GVJdlQ1vr46gHKOfw9Io lQEoKnrtoP6yIK4JNIMiiOLN JZY9DT1tXEs1HZqkNPRyL5In E5WfvsAgzKEiHIYffnXuf8bp NFD0WOGslLUanBRlHuUxAxky ZHK8JCOqTVitOQ0Hl5hsWWOj eQSiHFD8EGqxlAGbPRHjZUGo CJwaDpHpN6QPTOAdPfNjLZBo EKiuAAt6TOo4TB8KKrPvQLNd LfV5CEEjPEBrKHg7FXcdYF6K MQk6LAZfKSL6KRSaHBLjMZPt NSd5XRHyTQzkRETfnPGiZQvo UzuuOPklG70wdPqhrV2oZkNx EodpdHTfbuTXHzFFZP0URKOA JWhGLPKKNreMQRBCK0yYAGAS MF6IO1cxfKOfNA0VXZGokGKW YDE8HA5xYAZSJlqyxGIzICNm gGfcRElfqL6qFU3ZAZy4bdNc INNlTsKtPoEtAWq8TDCvvZ2x Uz3loPRxlZ4tsSTru67hYCWm FQPiPB5qWYYypm5edo52ewwt j63xeEB4vTJvgQOwoLCzb3Zi iF7hIGJvHmJ9PCZkQwK0ORSj PvRzkV5bNV76RTbnuGJjvVHh kIZ7SXLbkM1dn32tSUHna2Bo dHRlLiBcbGluZSANClxlcGlj OwLuxQMuJhAggpK6AORleOXx XVH3QL3vFMSvkqbuLEZmTTDi BSX1EIphsB71aIBoIYAjZBWp cGFyfVxwbGFpbiANCntcKlxl rOxvy9UsqNUuIUwnIQOvJDRj XSnsZYTqOK9XFhVwCVC9NWPk MAM8GfU5RGr7JMVQEfLeKwMv Zob0OIClSTFdCBb0MBj4KPkJ NmN3RQDrWQOsMcn5JTF2QST4 IFxcdCAyIFxcZiBBcmlhbCBc NACuLTimqdN1XLDkUAnyXXYr EQBbqVngrJ8gAO5lPYOUKMxF K53CVCACZuqFQQyMCzZIPI7A FTSOA1BRKBpgYKAfFTyaPVIf P02kv6HFz4QtON1FOCk2ihHr zktarO7lTTGfrfIeNDcctXRo W1qgSnVaBGBHHVVceLYxZKFu cfTpy0TvKLxylyGuzxMgwSum FKNjVQFihpGaIwH2HT0ziZiv pzpnr96ytIG2gSJulYEcACvq vgLoLQAbwtqocM4mMA63GPsp TF0eQRupNC8bZOHtGcXNz6Pt tLi9RVP2Ff1adFYfRNXlojDd dvQsQ9Wnz9U0sNMkKQhcxhUt FZuyZBArG51jn0IUz0BgVKGo r0koqBgpm8KixNDsKBarMCYh aAQvREuoaE1gTdNrf6hokJb9 DZczbtQ7HZScix1bcMbfqX6m WLu5ARgbNQIyD7NuD3ByJObg NEN6ZFLwAsCaOHDeUWIKXnTu ZjGaPVJ0OFB6MaTkZQp0QWkk S9KEOQHiSZZ6VKOyBCj8CtE6 KRg2ZJNPHv9tUJvkVtJ5MMJo UEH9QYXyJFJpVXDfMeZxJNHo HGQyCDdzHSthyBGgXD7cxQme eHAshqyyldD6TWRaWVslSJFj QQLDKX7VCMQTM2dBCWXDY5QD IUaqQDOaKXmpJZPgV02ys6MS d7UqYQ8HGLk8toMijqbixC0i HYSlxwMhHSrprEZmN1kdGtCo NASAFWEsfKQxLKZussNzr9Bx YWxpbiBhcmUgdHdvIHBpZWNl nxPxBnN7FN6cHpOnr20vBLBe VqLzoHwxq3EtXTCaY4AlC9R6 tY4nSHOxCNRuJML5NGCtWjX6 PMKqNKRasH3kUZ36UNvogJKa kJTcvEF7ALJvcP7qk94tWVGd e3TlxPYqTmluoL1xEU6QFSDz vQNEDMD1IV0rRNz1VQqaQFHm L9UnO3FdnfMwbEPcFIDshbNo p8qbXAJ7CUPueAGrnLYyIoGn XzinVKM5RXKeENhdSZ7Wc2cz RAXxaRFwMHQ5GGylrWFvKQRf DJFoUUhxXfIgL9UMBONnGdOn PQDnVYzmHWn3PTl9ES9FQgSc SLQiJsP7SQF5UoJkLFp4SRwp ME5XKCw2QOBwWORsEVLpIGJy AIMkPEo3QFEpZHfkKWQtpWIj TBthFziwZRoxG81gsZmlxQ2q SsHeTgsckILznrIEQxMUL7xN UgSMUFCMSHVEJ0SRKGmiSHNd UTexCSLuA55ps3FNv4NvWP0E CLh1jiRzpmseiT7rMRThzqOe DQcizHYtP3qyWuWrHEKKQHTy fYSzOMTtxdThw3AgPNzzzaQl aiWfaUPwlEtrwMRcmGyeE1Ui LI5zNIQdmo7jro22jbqmj07m xHJ5aNLlgKInNFtsuePnEMBv xcavjX3lTG2eTDdaWD2tLUdu MB6zHXXmZjIDe0MirLp7JSZ9 Bp8caOHtDVFntqUggdRbF0Hy v2X0cEEyVLwnytLeWHpxWFPc YHhnvERoEW2MG8wwRtGhcqId cnkgMjIsIDIwMjMgMjozNCBB TVx+XHBhciANClxwYXIgDQpH bu6cwxWyvWNaeQ1dyGsvopPa EEWvw9BmRKJdTTCvC7vpbdPv XV9eJXFowS5nZoyaDHVrLCQN nYRypUMtZOIqHkusY6vmamHz KD7xFDZCXZF6CYP5WGcvGAZl LLehJLScG60ll2NFb8LaMHWt y1qpbZegj1XzrPFkROhzNIXb mEFtSUyuoQ3wJkSye5mamCg6 KYjbxlS9IWWoya3wgFmfxJ6t EGeem4qiBPU9ETDdwVZlzUMz MNtepZbbgU4eSlRqMnu9LYvw JIUkE2RcQ6RfwpD3JTIbARot XGZzMTYgDQp9 [facility] Work Phone: Performing Lab k8jrmFAbOVMycKHwEpZo MDAw JXGeg6toNHEnoBRbNjZrCzXl GbPpHnvyaXVsDREuBzZts4nf s401qWMin4tzKYVhVeU9pZFx FRTjzKKtO831GSOhEUajt4vb a4HpMSJdgFNaa9E4CTWQawcj nLi7sGhfV97ox7F7AyplY1ql BQIkSFMjR9RsON0oRHCoMvh2 RIT1GIQ8JUTyPZLfP3CrWT5h ZIYztDQrNSg4x8wegHisUUHg VTP1n4lsIJnxgiYgTF7puk5r kAm4h8alfvNxOWLbMVMnqAUW SXSrL4EpyHrvTm5puPb6aYjr GicxKQO9Oyx7HD2bsk88oxd0 iMhtIBMuwqxaCaL4LSrvXRJe ycymLBv0LJkjSEWsnTQ7IQXb gPGcM2TvGHvmIK8vyuy6GUG4 UFlzEVBnZsV7IDJxfHXlQOJz vUnmZDmha322QNB3JnFhHR9t M7Sit4X9qO3trOGxOZKjuSEd DmOdZWEufa7yqAQxSUkhc8Wk MMF0duY0xKIlsCZtFAAzYC38 Xnoni9KkNyowk7LoA68hsPM2 TDctf7yeSA6vRhA9loRjGLrc n8adaD7wHgV1DYoiKW5kIU1i MGElwV8foyoxWOLzOrYgkpum TCQofSmfjnPjWt9cjNonEXH7 FVasH3enxU6rCqQ3NHxiN1uh nX4qBUe5OBbqcSH9YUYvfW6x ZS0eueowh6xtIBquSTvgYDPo vaI1xfFuJVHwyILfG3TvtF0u YGCbMN9akdlpd3rgGJN1MCnd RETmDLX1KmWlKAKfm5Kslgz2 FgUxt8KceZHeSOtrI69jp871 EQRkklEeR7vxwQDoayihpWSu mdqzRImbmcK1LWXgQVLvZImt XGYxXGZzMjJcbGFuZzEwMzNc aGljaFxmMVxkYmNoXGYxXGxv C1piSmJrQpPpJkRDkTUsvy9k gAlwCBrykQQoxDFqmIG6rD9k LNYevoBfjx9qORMtlLKWtRM7 EEnukyVdI6isuhbjLRJ9SJQh SOY9Y9hiRIAEpfYvKKHkTTXr sSDyYAXJWOL0JMQ3XHSuDRED FOCoPQD7XMP1BAGwDOVjwGVj XHBhclxwYXJkXHBsYWluXGYw SXLxUvRgdSmoqA1fVlKaTwRj KnvePO8gJSTxE7bbyOSgWCUx WIUcN2qeNkLdpL5npYqaMMqb ZjJcZnMyMlxsdHJjaCBMYWJv rqN5c7X3NVfilHVqieuoQXul kmWjCBzmmogaMTLpRTziT8qr WcOiBQNwbRaqCWryy2IoMZZe CDLlBvWqYXigASS2h4G0LEzy fJGrbdWORoRBWJ0skUXjnzdg [id number] [facility] Work Phone: [facility] Work Phone: EGD Study observation Luz tracy 11-01-2022 [facility] G[facility]ology Gastrointestinal Endoscopy Patient Name: Alexandra Bella Procedure Date: 11/01/2022 1:01 PM Date of : 1955 Admit Type: Outpatient Age: 66 Room: PENDING SALE TO [facility] Gender: Female Note Status: Finalized Attending [...] bowel preparation was evaluated using the BBPS ([place] Bowel Preparation Scale) with scores of: Right [...] for e (more content not included)... [facility] Radiology Study observation (narrative) [facility] Flexible sigmoidoscopy study on 11-01-2022 [facility] Gastroenterology Gastrointestinal Endoscopy Patient Name: Alexandra Bella Procedure Date: 11/01/2022 12:19 PM Date of : 1955 Admit Type: Outpatient Age: 66 Room: PENDING SALE TO [facility] 1 Gender: Female Note Status: Finalized Attending [...] stomach. Biopsied. (more content not included)... [facility] Radiology Study observation (narrative) [facility] Absolute lymphocyte countOrd ered By: Tanya Hutchins on 09-16-2022 Lymphocytes Auto (Unsp spec) [#/Vol] 3.32 10*3/uL 0.83-4.51 [facility] Albumin Elph [Mass/Vol]Order ed By: Tanya Hutchins on 09-16-2022 Albumin [Mass/Vol] 3.4 g/dL 2.9-4.4 [facility] Atypical perinuclear antineu trophil cytoplasmic antibodies measurementOrdered By: Tanya Hutchins on 09-16-2022 Neutrophil cytoplasmic Ab.perinuclear.atypical IF (S) [Titer] <1:20 titer Neg:<1:20 [facility] Comment on above: The atypical pANCA p attern has been observed in asignificant percentage of patients with ulcerative colitis,primary sclerosing cholangitis and autoimmune hepatitis.Performed at: - [facility] [id number] Director: Simba Baltazar PhD, Phone: [phone] at: [facility] [id number] Director: Alla Silver MD, Phone: [phone] Basophil percentageOrdered B y: Tanya Hutchins on 09-16-2022 Basophil percentage < 0.2 AI 0.0-0.9 [facility] Basophils/100 WBC (Bld) 0.5 % 0-1 [facility] Bilirubin [Mass/Vol] 0.40 mg/dL 0.20-1.[address] [facility] Comment on above: For patients on eltr ombopag therapy, use of Dimension [place] TBIL is not recommended. Chloride [Moles/Vol] 110 mmol/L 98-[address] [facility] Eosinophils/100 WBC (Bld) 1.2 % 0-5 [facility] Glucose [Mass/Vol] 168 mg/dL 74-106 [facility] Comment on above: Fasting Glucose resu lt greater than or equal to 126 mg/dL suggests DIABETES MELLITUS per A.D.A. criteria. LDH [Catalytic activity/Vol] 242 U/L 84-246 [facility] Neutrophils (Bld) [#/Vol] 3.8 10*3/uL 2.0-7.7 [facility] Neutrophils/100 WBC (Bld) 48.8 % 47-70 [facility] Potassium [Moles/Vol] 4.2 mmol/L 3.5-5.1 [facility] Protein [Mass/Vol] 8.1 g/dL 6.4-8.2 [facility] Sodium [Moles/Vol] 141 mmol/L 136-145 [facility] WBC (Bld) [#/Vol] 7.7 10*3/uL 4.4-11.0 [facility] Blood erythrocytes count (nu mber/volume)Ordered By: Tanya Hutchins on 09-16-2022 RBC (Bld) [#/Vol] 4.93 10*6/uL 4.2-5.4 [facility] Blood hemoglobin measurement (mass/volume)Ordered By: Tanya Hutchins on 09-16-2022 Hemoglobin (Bld) [Mass/Vol] 14.3 g/dL 12.0-15.0 [facility] Blood lymphocytes/100 leukoc ytesOrdered By: Tanya Hutchins on 09-16-2022 Lymphocytes/100 WBC (Bld) 42.9 % 19-41 [facility] Blood monocytes/100 leukocyt esOrdered By: Tanya Hutchins on 09-16-2022 Monocytes/100 WBC (Bld) 6.2 % 0-10 [facility] Blood platelet mean volumeOr dered By: Tanya Hutchins on 09-16-2022 Platelet mean volume (Bld) [Entitic vol] 11.4 fL 6.2-12.0 [facility] Determination of erythrocyte mean corpuscular volume (MCV)Ordered By: Tanya Hutchins on 09-16-2022 MCV (RBC) [Entitic vol] 90.1 fL 81-99 [facility] Erythrocyte sedimentation ra teOrdered By: Tanya Hutchins on 09-16-2022 ESR (Bld) [Velocity] 34 mm/h 0-[address] [facility] Hematocrit Auto (Bld) [Volum e fraction]Ordered By: Tanya Hutchins on 09-16-2022 Hematocrit (Bld) [Volume fraction] 44.4 % 37-47 [facility] Interpretation of serum or p lasma protein pattern by immunofixation (narrative resultOrdered By: Tanya Hutchins on 09-16-2022 Protein Fractions Immunofixation Ray [Interp] See comment [facility] Comment on above: SPE shows an asymmet rical gamma. Laboratory - Chemistry and C hemistry - challengeOrdered By: Tanya Hutchins on 09-16-2022 ALP [Catalytic activity/Vol] 138 U/L 45-117 [facility] ALT [Catalytic activity/Vol] 186 U/L 13-56 [facility] CO2 [Moles/Vol] 26.0 mmol/L 21.0-32.0 [facility] Urea nitrogen/Creatinine [Mass ratio] 22.8 mg/mg 10-20 [facility] Laboratory - Hematology and Cell countsOrdered By: Tanya Hutchins on 09-16-2022 Erythrocyte distribution width (RBC) [Entitic vol] 44.7 fL 35.1-43.9 [facility] Erythrocyte distribution width (RBC) [Ratio] 13.5 % 11.6-14.6 [facility] Immature granulocytes/100 WBC (Bld) 0.400 % 0.0-0.9 [facility] Comment on above: IG% - Immature Granu locytes (promyelocytes, myelocytes and metamyelocytes) > 1% indicates that a LEFT SHIFT is Present. MCH (RBC) [Entitic mass] 29.0 pg 27.0-32.0 [facility] Nucleated RBC/100 WBC (Bld) [Ratio] 0 % 0-5 [facility] MCHC Auto (RBC) [Mass/Vol]Or dered By: Tanya Hutchins on 09-16-2022 MCHC (RBC) [Mass/Vol] 32.2 g/dL 32-36 [facility] No Panel InformationOrdered By: Tanya Hutchins on 09-16-2022 Stool Calprotectin 54 ug/g 0-120 [facility] Comment on above: Concentration Interp retation Follow-Up<16 - 50 ug/g Normal None>50 -120 ug/g Borderline Re-evaluate in 4-6 weeks >120 ug/g Abnormal Repeat as clinically indicatedPerformed at: - [facility] [address] [id number] Director: Alla Silver MD, Phone: [phone] Addendum Document Comment . [facility] Comment on above: Protein electrophore sis scan will follow via computer,mail, or ice cream vault worker delivery. Centromere B Antibody <0.2 AI 0.0-0.9 [facility] Endomysial IgA Antibody Negative Negative [facility] Estimated GFR (MDRD) Amer 88 mL/min >60 [facility] Comment on above: GFR Calc Estimated GFR (MDRD) Non-Af Amer 73 mL/min >60 [facility] Comment on above: Non- GFR Calc Immunoglobulin E 36 IU/mL 6-495 [facility] Miscellaneous Test See comment [facility] Comment on above: TEST RESULT LIMITSIB D [...] developed and its performance characteristics determined by [facility]. It has not been cleared or approved by the Food and Drug Administration. The FDA has determined that such clearance or approval is not necessary.Atypical pANCA Negative NegativeCommentsPattern is not suggestive of Inflammatory Bowel Disease. ____ TESTING PERFORMED AT [facility]. ORIGINAL REPORT ON FILE IN LAB CONTAINS ADDITIONAL TEST SITE INFORMATION. OPERATIONS ANALYST Antibody 0.6 AI 0.0-0.9 [facility] Platelets bldOrdered By: Yasmin Hutchins on 09-16-2022 Platelets (Bld) [#/Vol] 232 10*3/uL 150-450 [facility] Serum DNA double strand anti body assay (units/volume)Ordered By: Tanya Hutchins on 09-16-2022 DNA double strand Ab Qn (S) [IU]/mL 0-9 [facility] Comment on above: Negative <5 Equivoca l 5 - 9 Positive >9 Serum Hailee-1 antibody assay (u nits/volume)Ordered By: Tanya Hutchins on 09-16-2022 Hailee-1 extractable nuclear Ab Qn (S) <0.2 AI 0.0-0.9 [facility] Serum Scl-70 extractable nuc lear antibody assay (units/volume)Ordered By: Tanya Hutchins on 09-16-2022 SCL-70 extractable nuclear Ab Qn (S) <0.2 AI 0.0-0.9 [facility] Serum Razo extractable nucl ear antibody detectionOrdered By: Tanya Hutchins on 09-16-2022 Razo extractable nuclear Ab Ql (S) <0.2 AI 0.0-0.9 [facility] Serum [id number] measu rement by electrophoresisOrdered By: Tanya Hutchins on 09-16-2022 Alpha 1 globulin Elph [Mass/Vol] 0.3 g/dL 0.0-0.4 [facility] Alpha 1 globulin Elph [Mass/Vol] 0.9 g/dL 0.4-1.0 [facility] Serum classic neutrophil cyt oplasmic antibody assay (units/volume)Ordered By: Tanya Hutchins on 09-16-2022 Neutrophil cytoplasmic Ab.classic Qn (S) <1:20 titer Neg:<1:20 [facility] Serum globulin measurement ( mass/volume)Ordered By: Tanya Hutchins on 09-16-2022 Globulin (S) [Mass/Vol] 4.1 g/dL 2.2-3.9 [facility] Serum or plasma C reactive p rotein measurement (mass/volume)Ordered By: Tanya Hutchins on 09-16-2022 CRP [Mass/Vol] mg/L 0.0-3.0 [facility] Comment on above: C-Reactive Protein ( CRP) provides useful information for thediagnosis, therapy and monitoring of inflammatory processesand associated diseases. For the evaluation of Relative Riskfor Cardiovascular Disease, a High Sensitivity CRP (HSCRP)should be ordered. Serum or plasma IgA measurem ent (mass/volume)Ordered By: Tanya Hutchins on 09-16-2022 IgA [Mass/Vol] 351 mg/dL 87-352 [facility] Serum or plasma IgG measurem ent (mass/volume)Ordered By: Tanya Hutchins on 09-16-2022 IgG [Mass/Vol] 1366 mg/dL 586-1602 [facility] Serum or plasma IgM measurem ent (mass/volume)Ordered By: Tanya Hutchins on 09-16-2022 IgM [Mass/Vol] 212 mg/dL 26-217 [facility] Serum or plasma albumin shamir urement (mass/volume)Ordered By: Tanya Hutchins on 09-16-2022 Albumin [Mass/Vol] 3.7 g/dL 3.2-5.0 [facility] Serum or plasma albumin/glob ulin mass ratioOrdered By: Tanya Hutchins on 09-16-2022 Albumin/Globulin [Mass ratio] 0.8 {ratio} 0.9-2.4 [facility] Serum or plasma beta globuli n measurement by electrophoresis (mass/volume)Ordered By: Tanya Hutchins on 09-16-2022 Beta globulin Elph [Mass/Vol] 1.6 g/dL 0.7-1.3 [facility] Serum or plasma calcium shamir urement (mass/volume)Ordered By: Tanya Hutchins on 09-16-2022 Calcium [Mass/Vol] 9.8 mg/dL 8.5-10.1 [facility] Serum or plasma creatinine m easurement (mass/volume)Ordered By: Tanya Hutchins on 09-16-2022 Creatinine [Mass/Vol] 0.83 mg/dL 0.55-1.02 [facility] Comment on above: The validity of the calculated GFR & GFRAA in patients over 70 years has not been determined. Clinical correlation is essential. Serum or plasma gamma globul in measurement by electrophoresis (mass/volume)Ordered By: Tanya Hutchins on 09-16-2022 Gamma globulin Elph [Mass/Vol] 1.4 g/dL 0.4-1.8 [facility] Serum or plasma immunoelectr ophoresis interpretation (nominal result)Ordered By: Tanya Hutchins on 09-16-2022 Interpretation IEP [Interp] Comment: . [facility] Comment on above: Presence of monoclon al protein is unclear at this time. Suggestrepeat in 3 to 6 months if clinically indicated. Serum or plasma urea nitroge n measurement (mass/volume)Ordered By: Tanya Hutchins on 09-16-2022 Urea nitrogen [Mass/Vol] 19 mg/dL 7-18 [facility] Serum perinuclear neutrophil cytoplasmic antibody titer by immunofluorescenceOrdered By: Tanya Hutchins on 09-16-2022 Neutrophil cytoplasmic Ab.perinuclear IF (S) [Titer] <1:20 titer Neg:<1:20 [facility] Comment on above: The presence of posi tive fluorescence exhibiting P-ANCA orC-ANCA patterns alone is not specific for the diagnosis ofWegener's Granulomatosis (WG) or microscopic polyangiitis.Decisions about treatment should not be based solely onANCA IFA results. The International ANCA Group Consensusrecommends follow up testing of positive sera with both IL-3 and MPO-ANCA enzyme immunoassays. As many as 5% serumsamples are positive only by EIA. Ref. AM J Clin [id number];111:507-513. Serum tissue transglutaminas e IgA antibody assay (units/volume)Ordered By: Tanya Hutchins on 09-16-2022 tTG IgA Qn (S) <2 U/mL 0-3 [facility] Comment on above: Negative 0 - 3 Weak Positive 4 - 10 Positive >10 Tissue Transglutaminase (tTG) has been identified as the endomysial antigen. Studies have demonstr- ated that endomysial IgA antibodies have over 99% specificity for gluten sensitive enteropathy. Stool lactoferrin detection by immunoassayOrdered By: Tanya Hutchins on 09-16-2022 Lactoferrin IA Ql (Stl) [facility] Thin prep Papanicolaou smear with manual screeningOrdered By: Tanya Hutchins on 09-16-2022 Thin prep Papanicolaou smear with manual screening 127 U/L 15-37 [facility] Thin prep Papanicolaou smear with manual screening 5 5-15 [facility] Thin prep Papanicolaou smear with manual screening 0.9 0.7-1.7 [facility] Total protein bloodOrdered B y: Tanya Hutchins on 09-16-2022 Protein [Mass/Vol] 7.5 g/dL 6.0-8.5 [facility] EP PanelOrdered By: Dr. Reilly koo on 08-28-2022 Gastrointestinal pathogens panel WINSTON+probe (Stl) [facility] Absolute lymphocyte countOrd ered By: Dr. Donis on 08-27-2022 Lymphocytes Auto (Unsp spec) [#/Vol] 3.05 10*3/uL 0.83-4.51 [facility] Amorphous sediment detection in urine sediment by light microscopyOrdered By: Dr. Donis on 08-27-2022 Amorphous sediment LM Ql (Urine sed) 1+ [facility] Basophil percentageOrdered B y: Dr. Donis on 08-27-2022 Basophil percentage 0-5 SEEN /hpf 0-5 [facility] Basophils/100 WBC (Bld) 0.4 % 0-1 [facility] Bilirubin [Mass/Vol] 0.50 mg/dL 0.20-1.[address] [facility] Comment on above: For patients on eltr ombopag therapy, use of Dimension [place] TBIL is not recommended. Chloride [Moles/Vol] 108 mmol/L 98-[address] [facility] Eosinophils/100 WBC (Bld) 2.0 % 0-5 [facility] Glucose [Mass/Vol] 129 mg/dL 74-106 [facility] Comment on above: Fasting Glucose resu lt greater than or equal to 126 mg/dL suggests DIABETES MELLITUS per A.D.A. criteria. Neutrophils (Bld) [#/Vol] 3.8 10*3/uL 2.0-7.7 [facility] Neutrophils/100 WBC (Bld) 49.5 % 47-70 [facility] Potassium [Moles/Vol] 3.9 mmol/L 3.5-5.1 [facility] Comment on above: Moderate Hemolysis, Result may be falsely increased. Protein [Mass/Vol] 7.6 g/dL 6.4-8.2 [facility] Sodium [Moles/Vol] 136 mmol/L 136-145 [facility] WBC (Bld) [#/Vol] 7.7 10*3/uL 4.4-11.0 [facility] Bilirubin Test strip Ql (U)O rdered By: Dr. Donis on 08-27-2022 Bilirubin Ql (U) 1 mg/dL Negative [facility] Comment on above: COLOR OF URINE MAY A FFECT DIPSTICK RESULTS. Blood erythrocytes count (nu mber/volume)Ordered By: Dr. Donis on 08-27-2022 RBC (Bld) [#/Vol] 4.71 10*6/uL 4.2-5.4 [facility] Blood hemoglobin measurement (mass/volume)Ordered By: Dr. Donis on 08-27-2022 Hemoglobin (Bld) [Mass/Vol] 14.0 g/dL 12.0-15.0 [facility] Blood lymphocytes/100 leukoc ytesOrdered By: Dr. Donis on 08-27-2022 Lymphocytes/100 WBC (Bld) 39.7 % 19-41 [facility] Blood monocytes/100 leukocyt esOrdered By: Dr. Donis on 08-27-2022 Monocytes/100 WBC (Bld) 8.1 % 0-10 [facility] Blood platelet mean volumeOr dered By: Dr. Donis on 08-27-2022 Platelet mean volume (Bld) [Entitic vol] 10.9 fL 6.2-12.0 [facility] Determination of erythrocyte mean corpuscular volume (MCV)Ordered By: Dr. Donis on 08-27-2022 MCV (RBC) [Entitic vol] 88.7 fL 81-99 [facility] Direct bilirubinOrdered By: Dr. Donis on 08-27-2022 Bilirubin.direct [Mass/Vol] 0.11 mg/dL 0.00-0.30 [facility] Hematocrit Auto (Bld) [Volum e fraction]Ordered By: Dr. Donis on 08-27-2022 Hematocrit (Bld) [Volume fraction] 41.8 % 37-47 [facility] Ketones Test strip Ql (U)Ord ered By: Dr. Donis on 08-27-2022 Ketones Ql (U) 5 mg/dl Negative [facility] Laboratory - Chemistry and C hemistry - challengeOrdered By: Dr. Donis on 08-27-2022 ALP [Catalytic activity/Vol] 112 U/L 45-117 [facility] ALT [Catalytic activity/Vol] 190 U/L 13-56 [facility] CO2 [Moles/Vol] 21.0 mmol/L 21.0-32.0 [facility] Globulin (S) [Mass/Vol] 4.4 g/dL 2.2-4.2 [facility] Urea nitrogen/Creatinine [Mass ratio] 18.3 mg/mg 10-20 [facility] Laboratory - Hematology and Cell countsOrdered By: Dr. Donis on 08-27-2022 Erythrocyte distribution width (RBC) [Entitic vol] 43.6 fL 35.1-43.9 [facility] Erythrocyte distribution width (RBC) [Ratio] 13.3 % 11.6-14.6 [facility] Immature granulocytes/100 WBC (Bld) 0.300 % 0.0-0.9 [facility] Comment on above: IG% - Immature Granu locytes (promyelocytes, myelocytes and metamyelocytes) > 1% indicates that a LEFT SHIFT is Present. MCH (RBC) [Entitic mass] 29.7 pg 27.0-32.0 [facility] Nucleated RBC/100 WBC (Bld) [Ratio] 0 % 0-5 [facility] MCHC Auto (RBC) [Mass/Vol]Or dered By: Dr. Donis on 08-27-2022 MCHC (RBC) [Mass/Vol] 33.5 g/dL 32-36 [facility] Mucus LM Ql (Urine sed)Order ed By: Dr. Donis on 08-27-2022 Mucus Ql (Urine sed) 1+ /hpf [facility] Nitrite Test strip Ql (U)Ord ered By: Dr. Donis on 08-27-2022 Nitrite Ql (U) Negative Negative [facility] No Panel InformationOrdered By: Dr. Donis on 08-27-2022 Estimated Creatinine Clearance Calc 44.02 ml/min [facility] Estimated GFR (MDRD) Amer 68 mL/min >60 [facility] Comment on above: GFR Calc Estimated GFR (MDRD) Non-Af Amer 56 mL/min >60 [facility] Comment on above: Non- GFR Calc Platelets bldOrdered By: Dr. Donis on 08-27-2022 Platelets (Bld) [#/Vol] 202 10*3/uL 150-450 [facility] Protein Test strip Ql (U)Ord ered By: Dr. Donis on 08-27-2022 Protein Ql (U) 30 mg/dl Negative [facility] Serum or plasma albumin shamir urement (mass/volume)Ordered By: Dr. Donis on 08-27-2022 Albumin [Mass/Vol] 3.2 g/dL 3.2-5.0 [facility] Serum or plasma calcium shamir urement (mass/volume)Ordered By: Dr. Donis on 08-27-2022 Calcium [Mass/Vol] 9.0 mg/dL 8.5-10.1 [facility] Serum or plasma creatinine m easurement (mass/volume)Ordered By: Dr. Donis on 08-27-2022 Creatinine [Mass/Vol] 1.04 mg/dL 0.55-1.02 [facility] Comment on above: The validity of the calculated GFR & GFRAA in patients over 70 years has not been determined. Clinical correlation is essential. Serum or plasma urea nitroge n measurement (mass/volume)Ordered By: Dr. Donis on 08-27-2022 Urea nitrogen [Mass/Vol] 19 mg/dL 7-18 [facility] Squamous epithelial cells de tection in urine sediment by light microscopyOrdered By: Dr. Donis on 08-27-2022 Epithelial cells.squamous LM Ql (Urine sed) 10-25 SEEN /hpf 5-10 [facility] Thin prep Papanicolaou smear with manual screeningOrdered By: Dr. Donis on 08-27-2022 Thin prep Papanicolaou smear with manual screening 103 U/L 15-37 [facility] Comment on above: Moderate Hemolysis, Result may be falsely increased. Thin prep Papanicolaou smear with manual screening 7 5-15 [facility] Urine blood detectionOrdered By: Dr. Donis on 08-27-2022 RBC Ql (U) 10 /ul Negative [facility] RBC Ql (U) 0-5 SEEN /hpf 0-5 [facility] Urine clarityOrdered By: Dr. Donis on 08-27-2022 Clarity (U) Sl. Cloudy Clear [facility] Urine color determinationOrd ered By: Dr. Donis on 08-27-2022 Color (U) Yellow Yellow [facility] Urine glucose detectionOrder ed By: Dr. Donis on 08-27-2022 Glucose Ql (U) Normal mg/dl Normal [facility] Urine leukocyte esterase det ection by dipstickOrdered By: Dr. Donis on 08-27-2022 Leukocyte esterase Test strip Ql (U) 25 /ul Negative [facility] Urine pHOrdered By: Dr. Reilly koo on 08-27-2022 pH (U) 6.0 [pH] 5.0 - 8.0 [facility] Urine sediment bacteria coun t by microscopy (number/high power field)Ordered By: Dr. Donis on 08-27-2022 Bacteria LM.HPF (Urine sed) [#/Area] 3 /[HPF] None Seen [facility] Urine specific gravity measu rementOrdered By: Dr. Donis on 08-27-2022 Specific gravity (U) [Rel density] 1.020 1.002-1.030 [facility] Urobilinogen Auto test strip Ql (U)Ordered By: Dr. Donis on 08-27-2022 Urobilinogen Ql (U) 1 mg/dl Normal [facility] Laboratory - Hematology and Cell countson 07-28-2022 HbA1c (Bld) [Mass fraction] 7.3 % 4.2-6.3 [facility] Cervical or vagninal specime n microscopic examination by cytology stain (reported asOrdered By: Dr. Jolley on 07-26-2022 Cytology report Cyto stain Doc (Cvx/Vag) Comment . [facility] Comment on above: The Pap smear is a s creening test designed to aid in thedetection of premalignant and malignant conditions of theuterine cervix. It is not a diagnostic procedure andshould not be used as the sole means of detecting cervicalcancer. Both false-positive and false-negative reports dooccur. Laboratory - CytologyOrdered By: Dr. Jolley on 07-26-2022 Director Regulatory Agency Cyto stain Nom (Cvx/Vag) [ID] Comment . [facility] Comment on above: Yeyo Almendarez ytotechnologist (ASCP) Laboratory - Miscellaneous t estsOrdered By: Dr. Jolley on 07-26-2022 Service comment (Unsp spec) [Interp] Comment . [facility] Comment on above: This liquid based Th inPrep(R) pap test was screened withthe use of an image guided system. Service comment (Unsp spec) [Interp] . . [facility] No Panel InformationOrdered By: Dr. Jolley on 07-26-2022 Human Papillomavirus Screen Comment . [facility] Comment on above: The HPV DNA reflex c naida were not met with this specimenresult therefore, no HPV testing was performed.Performed at: [address] [id number] Director: Liz Donovan MD, Phone: [phone] Pathology report final diagnosis Narrative Comment . [facility] Comment on above: NEGATIVE FOR INTRAEP ITHELIAL LESION OR MALIGNANCY. ECHOon 03-11-2022 [facility] Laboratory - Microbiology an d Antimicrobial susceptibilityon 01-25-2022 SARS-CoV-2 (COVID-19) RNA WINSTON+probe Ql (Unsp spec) Not detected Not Detect [facility] Work Phone: Comment on above: Normal Reference Ran ge: Not DetectedMethod:(RT-PCR) real-time reverse transcriptase PCRLuminex MARCIE Instrument*The Food and Drug Administration (FDA) has [...] 11-29-2021 Free T4 [Mass/Vol] 1.72 ng/dL 0.76-1.46 [facility] Work Phone: No Panel Informationon 11-29 Thyroid Stimulating Hormone (TSH) 0.43 uIU/mL 0.358-3.74 [facility] Work Phone: Laboratory - Hematology and Cell countson 10-26-2021 HbA1c (Bld) [Mass fraction] 7.3 % [facility] Work Phone: Absolute lymphocyte counton 09-02-2021 Lymphocytes Auto (Unsp spec) [#/Vol] 1.58 10*3/uL 0.83-4.51 [facility] Work Phone: Basophil percentageon 2020 Bilirubin [Mass/Vol] 0.60 mg/dL 0.20-1.[address] [facility] Work Phone: Comment on above: For patients on eltr ombopag therapy, use of Dimension [place] TBIL is not recommended. Chloride [Moles/Vol] 109 mmol/L 98-[address] [facility] Work Phone: Eosinophils/100 WBC (Bld) 0.0 % 0-5 [facility] Work Phone: Glucose [Mass/Vol] 149 mg/dL 74-106 [facility] Work Phone: Comment on above: Fasting Glucose resu lt greater than or equal to 126 mg/dL suggests DIABETES MELLITUS per A.D.A. criteria.Please note revised GLUCOSE reference range effective 2017. Neutrophils (Bld) [#/Vol] 3.0 10*3/uL 2.0-7.7 [facility] Work Phone: Potassium [Moles/Vol] 3.9 mmol/L 3.5-5.1 [facility] Work Phone: Comment on above: Slight Hemolysis, Re sult may be falsely increased. Protein [Mass/Vol] 8.2 g/dL 6.4-8.2 [facility] Work Phone: Sodium [Moles/Vol] 139 mmol/L 136-145 [facility] Work Phone: WBC (Bld) [#/Vol] 5.0 10*3/uL 4.4-11.0 [facility] Work Phone: Blood erythrocytes count (nu mber/volume)on 09-02-2021 RBC (Bld) [#/Vol] 4.71 10*6/uL 4.2-5.4 [facility] Work Phone: [phone] Blood hemoglobin measurement (mass/volume)on 09-02-2021 Hemoglobin (Bld) [Mass/Vol] 14.2 g/dL 12.0-15.0 [facility] Work Phone: Blood lymphocytes/100 leukoc yteson 09-02-2021 Lymphocytes/100 WBC (Bld) 31.5 % 19-41 [facility] Work Phone: Blood monocytes/100 leukocyt eson 09-02-2021 Monocytes/100 WBC (Bld) 8.6 % 0-10 [facility] Work Phone: Blood platelet mean volumeon 09-02-2021 Platelet mean volume (Bld) [Entitic vol] 11.0 fL 6.2-12.0 [facility] Work Phone: [phone] Determination of erythrocyte mean corpuscular volume (MCV)on 09-02-2021 MCV (RBC) [Entitic vol] 92.4 fL 81-99 [facility] Work Phone: [phone] Hematocrit Auto (Bld) [Volum e fraction]on 09-02-2021 Hematocrit (Bld) [Volume fraction] 43.5 % 37-47 [facility] Work Phone: [phone] Laboratory - Chemistry and C hemistry - challengeon 09-02-2021 ALP [Catalytic activity/Vol] 158 U/L 45-117 [facility] Work Phone: ALT [Catalytic activity/Vol] 358 U/L 13-56 [facility] Work Phone: [phone] CO2 [Moles/Vol] 23.0 mmol/L 21.0-32.0 [facility] Work Phone: [phone] Globulin (S) [Mass/Vol] 5.0 g/dL 2.2-4.2 [facility] [facility] Work Phone: Natriuretic peptide B (Bld) [Mass/Vol] 14.1 pg/mL 0-100 [facility] Work Phone: Urea nitrogen/Creatinine [Mass ratio] 22.2 mg/mg 10-20 [facility] Work Phone: Laboratory - Hematology and Cell countson 09-02-2021 Basophils/100 WBC (Unsp spec) 0.6 % 0-1 [facility] Work Phone: Erythrocyte distribution width (RBC) [Entitic vol] 45.7 fL 35.1-43.9 [facility] Work Phone: Erythrocyte distribution width (RBC) [Ratio] 13.4 % 11.6-14.6 [facility] Work Phone: Immature granulocytes/100 WBC (Bld) 0.200 % 0.0-0.9 [facility] Work Phone: [phone] Comment on above: IG% - Immature Granu locytes (promyelocytes, myelocytes and metamyelocytes) > 1% indicates that a LEFT SHIFT is Present. MCH (RBC) [Entitic mass] 30.1 pg 27.0-32.0 [facility] Work Phone: Neutrophils/100 WBC (Bld) 59.1 % 47-70 [facility] Work Phone: Nucleated RBC/100 WBC (Bld) [Ratio] 0 % 0-5 [facility] Work Phone: [phone] MCHC Auto (RBC) [Mass/Vol]on 09-02-2021 MCHC (RBC) [Mass/Vol] 32.6 g/dL 32-36 [facility] Work Phone: No Panel Informationon 09-02 Estimated GFR (MDRD) Amer 91 mL/min >60 [facility] Work Phone: Comment on above: GFR Calc Estimated GFR (MDRD) Non-Af Amer 75 mL/min >60 [facility] Work Phone: Comment on above: Non- GFR Calc Platelets bldon 09-02-2021 Platelets (Bld) [#/Vol] 187 10*3/uL 150-450 [facility] Work Phone: Serum or plasma albumin shamir urement (mass/volume)on 09-02-2021 Albumin [Mass/Vol] 3.2 g/dL 3.2-5.0 [facility] Work Phone: Serum or plasma albumin/glob ulin mass ratioon 09-02-2021 Albumin/Globulin [Mass ratio] 0.6 {ratio} 0.9-2.4 [facility] Work Phone: Serum or plasma calcium shamir urement (mass/volume)on 09-02-2021 Calcium [Mass/Vol] 9.3 mg/dL 8.5-10.1 [facility] Work Phone: Serum or plasma creatinine m easurement (mass/volume)on 09-02-2021 Creatinine [Mass/Vol] 0.81 mg/dL 0.55-1.02 [facility] Work Phone: Comment on above: The validity of the calculated GFR & GFRAA in patients over 70 years has not been determined. Clinical correlation is essential. Serum or plasma urea nitroge n measurement (mass/volume)on 09-02-2021 Urea nitrogen [Mass/Vol] 18 mg/dL 7-18 [facility] Work Phone: Thin prep Papanicolaou smear with manual screeningon 09-02-2021 Thin prep Papanicolaou smear with manual screening 296 U/L 15-37 [facility] Work Phone: Comment on above: Slight Hemolysis, Re sult may be falsely increased. Thin prep Papanicolaou smear with manual screening 7 5-15 [facility] Work Phone: Basic Panelon 06-04-2020 Anion gap [Moles/Vol] 10 mmol/L Normal 9-18 [facility] Comment on above: Performed By: #### L TSH #### [place] [address] Calcium [Mass/Vol] 9.5 mg/dL Normal 8.5-10.2 [facility] Comment on above: Performed By: #### L TSH #### [facility] [address] [place], [place] [address] Chloride [Moles/Vol] 101 mmol/L Normal 97-105 [facility] Comment on above: Performed By: #### L TSH #### [facility] [address] [place], [place] [address] CO2 Blood 25 mmol/L Normal 22-30 [facility] Comment on above: Performed By: #### L TSH #### [facility] [address] [place], [place] [address] Creatinine [Mass/Vol] 0.72 mg/dL Normal 0.58-0.96 [facility] Comment on above: Performed By: #### L TSH #### [facility] [address] [place], [place] [address] Glucose [Mass/Vol] 147 mg/dL High 74-99 [facility] Comment on above: Result Comment: The [place] Diabetes Association (ADA) provides guidance for cutoff [...] Standards of Medical Care in Diabetes 2016; [place] Diabetes Association. Diabetes Care. 2016;39(Suppl 1). Performed By: #### L TSH #### [facility] [address] [place], [place] [address] Potassium [Moles/Vol] 3.8 mmol/L Normal 3.7-5.1 [facility] Comment on above: Performed By: #### L TSH #### [facility] [address] [place], [place] [address] Sodium [Moles/Vol] 136 mmol/L Normal 136-144 [facility] Comment on above: Performed By: #### L TSH #### [facility] [address] [place], [place] [address] Urea nitrogen [Mass/Vol] 13 mg/dL Normal 7-21 [facility] Comment on above: Performed By: #### L TSH #### [facility] [address] [place], [place] [address] MDRD eGFRon 06-04-2020 GFR/1.73 sq M predicted among non-blacks MDRD (S/P/Bld) [Vol rate/Area] mL/min/{1.73_m2} Normal >60mL/min/1. 73m2 [facility] Comment on above: Result Comment: If t he patient is , multiply the result by 1.210. Performed By: #### L TSH #### [facility] [address] [place] [id number] THIN PREP IMAGE SEND OUTon 0 05-12-2020 THIN PREP IMAGE SEND OUT See Report Normal [facility] Comment on above: Order Comment: Order ed on Fin# [id number] Performed By: #### C [id number] #### [facility] [address] [place], [place] [id number] Highway Painter: Ascencion Palacios MD C GENITALon 05-03-2020 C GENITAL [facility] pt of Laboratory Services [address] [place] [id number] Name: ALEXANDRA BELLA : 1955 Admitting Provider: Gender: Female Financial [phone] Number: Location: Lab Svc. Admit 04/29/2020 Date: Discharge 04/29/2020 Date: Microbiology PROCEDURE: C GENITAL [] SOURCE: VAGINAL BODY SITE: COLLECTED DATE/TIME: 04/29/2020 13:08 EDT RECEIVED DATE/TIME: 04/30/2020 14:53 EDT START DATE/TIME: 04/30/2020 14:53 EDT FREE TEXT SOURCE: ORDERING PHYSICIAN: ABRAHAN QUAN FACOGRANULFO FINAL REPORTS Final Report [] Verified Date/Time: 05/03/2020 10:48 EDT Normal Vaginal Melvi isolated, including: Many Gram Negative Rods STAINS GS [] Verified Date/Time: 04/30/2020 15:43 EDT Many Gram Positive Cocci Few Gram Negative Rods Very rare Epithelial Cells L=Low, H= High, *= Abnormal, C=Critical, f=Footnote, c=Corrected, i=Interp Data Name: ALEXANDRA BELLA Print Date/ 05/04/2020 10:50 EDT Time: Normal [facility] Comment on above: Performed By: #### 1 [id number] #### [facility] [address] [place], [place] [id number] Highway Painter: Ascencion Palacios MD GP HPVon 05-01-2020 GP HPV Negative Normal [facility] Comment on above: Order Comment: Order ed on [facility]# [id number] Result Comment: This HPV assay is being performed via a second generation NAAT that utilizes target capture, fitness leader mediated amplification and dual kenetic assay technologies. 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 cervical polyp, c/o vaginal burning, tried monistat 3 day x2 and 2 diflucan 2 wks ago nervous about exam, CRITICAL CARE RN about hurt her with spec. 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..] recommendations within the defined date range Normal [facility] Comprehensive Panelon 2019 Albumin [Mass/Vol] 3.8 g/dL Low 3.9-4.9 [facility] Comment on above: Performed By: #### L LP14 #### [facility] [address] [place] [address] ALP [Catalytic activity/Vol] 90 U/L Normal 34-123 [facility] Comment on above: Performed By: #### L LP14 #### [place] [address] ALT-SGPT Blood see below Normal 7-38 [facility] Comment on above: Result Comment: Unab le to assay. Specimen Hemolyzed Performed By: #### L LP14 #### [place] [address] Anion gap [Moles/Vol] 11 mmol/L Normal 9-18 [facility] Comment on above: Performed By: #### L LP14 #### [place] [address] AST-SGOT Blood see below Normal 13-35 [facility] Comment on above: Result Comment: Unab le to assay. Specimen Hemolyzed Performed By: #### L LP14 #### [place] [address] Bilirubin Ql (U) 0.4 mg/dL Normal 0.2-1.3 [facility] Comment on above: Performed By: #### L LP14 #### [facility] [address] [place] [address] Calcium [Mass/Vol] 9.9 mg/dL Normal 8.5-10.2 [facility] Comment on above: Performed By: #### L LP14 #### [address] [address] Chloride [Moles/Vol] 104 mmol/L Normal 97-105 [facility] Comment on above: Performed By: #### L LP14 #### [facility] [address] [place] [address] CO2 Blood 20 mmol/L Low 22-30 [facility] Comment on above: Performed By: #### L LP14 #### [facility] [address] [place] [address] Creatinine [Mass/Vol] 0.74 mg/dL Normal 0.58-0.96 [facility] Comment on above: Performed By: #### L LP14 #### [facility] [address] [place] [address] Glucose [Mass/Vol] 116 mg/dL High 74-99 [facility] Comment on above: Result Comment: The [place] Diabetes Association (ADA) provides guidance for cutoff [...] Standards of Medical Care in Diabetes 2016; [place] Diabetes Association. Diabetes Care. 2016;39(Suppl 1). Performed By: #### L LP14 #### [facility] [address] [place] [address] Potassium [Moles/Vol] see below Normal 3.7-5.1 [facility] Comment on above: Result Comment: Unab le to assay. Specimen Hemolyzed Performed By: #### L LP14 #### [facility] [address] [place] [address] Protein [Mass/Vol] 7.5 g/dL Normal 6.3-8.0 [facility] Comment on above: Performed By: #### L LP14 #### [place] [id number] Sodium [Moles/Vol] 135 mmol/L Low 136-144 [facility] Comment on above: Performed By: #### L LP14 #### [facility] [address] [place] [id number] Urea nitrogen [Mass/Vol] 12 mg/dL Normal 7-21 [facility] Comment on above: Performed By: #### L LP14 #### [address] [address] Lipid Profile, [place] 04-14 Cholesterol [Mass/Vol] 134 mg/dL Normal 0-199 [facility] Comment on above: Result Comment: Tota l Cholesterol < 200 mg/dL, Desirable Total Cholesterol 200 to 239 mg/dL, Borderline high Total Cholesterol > 239 mg/dL, High Performed By: #### L LPF #### [place] [address] Cholesterol in HDL [Mass/Vol] 48 mg/dL Normal [facility] Comment on above: Result Comment: Refe rence Range: HDL Cholesterol 40- 59 mg/dL, Acceptable HDL Cholesterol >59 mg/dL, High; Negative risk factor for coronary heart disease HDL Cholesterol <40 mg/dL, Low; Positive risk factor for coronary heart disease Performed By: #### L LPF #### [place] [address] Cholesterol in LDL [Mass/Vol] 67 mg/dL Normal 0-99 [facility] Comment on above: Result Comment: LDL Cholesterol < 100 mg/dL, Optimal LDL Cholesterol 100 to 129 mg/dL, Near optimal/above optimal LDL Cholesterol 130 to 159 mg/dL, Borderline high LDL Cholesterol 160 to 189 mg/dL, High LDL Cholesterol > 189 mg/dL, Very high Secondary prevention optimal LDL Cholesterol levels are recommended to be < 70 mg/dL Performed By: #### L LPF #### [address] [address] Cholesterol in LDL/Cholesterol in HDL [Mass ratio] 1.40 Normal 0.00-2.53 [facility] Comment on above: Performed By: #### L LPF #### [address] [address] Cholesterol.total/Choles terol in HDL [Mass ratio] 2.79 {ratio} Normal 0.00-5.09 [facility] Comment on above: Performed By: #### L LPF #### [place] [address] FASTING TIME 18 Hrs Normal [facility] Comment on above: Performed By: #### L LPF #### [place] [address] Non-HDL Cholesterol 86 mg/dL Normal 0-129 [facility] Comment on above: Result Comment: Non HDL [...] mg/dL Performed By: #### L LPF #### [place] [address] Triglyceride Blood 97 mg/dL Normal 0-149 [facility] Comment on above: Result Comment: Trig lycerides < 150 mg/dL, Normal Triglycerides 150 to 199 mg/dL, Borderline high Triglycerides 200 to 499 mg/dL, High Triglycerides > 499 mg/dL, Very high Performed By: #### L LPF #### [place] [address] VLDL Cholesterol 19 mg/dL Normal 0-29 [facility] Comment on above: Performed By: #### L LPF #### [place] [address] FASTING TIME 18 Hrs Normal [facility] Comment on above: Performed By: #### L LPF #### [address] SCREENINGon 04-14-2020 [facility] SCREENING Final Report DATE OF EXAM: Apr 14 2020 8:28AM THOMASW [id number] - [facility] SCREENING / PROCEDURE REASON: Screening Physician Interpretation #[id number] - [facility] SCREENING BILATERAL DIGITAL SCREENING MAMMOGRAM WITH CAD: 04/14/2020 HISTORY: Routine screening mammogram. Patient reports intermittent diffuse right breast pain. RESULT: TECHNIQUE: The study was acquired using full field digital technology and interpreted from soft copy. Current study was also evaluated with a Computer Aided Detection (CAD). Comparison is made to exams dated: 01/10/2012 mammogram - [facility], 10/13/2011 mammogram, 05/06/2010 mammogram, and 05/06/2010 mammogram - [facility]. There are scattered fibroglandular elements in both [...] screening mammogram is recommended. Brigid wise/paola:04/14/2020 09:30:22 Distribution Systems Superintendent(s): Lilo Staples (R)(M), [facility] letter sent: Normal over 40 Mammogram BI-RADS: [...] Health, Family Medicine, and Medical/Surgical Oncology, the [facility] has carefully reviewed the data and reached [...] their providers when to stop screening mammograms. Sandstone Inspector Repairer: Paola Transcribe Date/Time: Apr 14 2020 8:01A Dictated by : BRIGID LINARES MD This examination was interpreted and the report reviewed and electronically signed by: BRIGID LINARES MD on Apr 14 2020 9:30AM EST Normal [facility] MDRD eGFRon 04-14-2020 GFR/1.73 sq M predicted among non-blacks MDRD (S/P/Bld) [Vol rate/Area] mL/min/{1.73_m2} Normal >60mL/min/1. 73m2 [facility] Comment on above: Result Comment: If t he patient is , multiply the result by 1.210. Performed By: #### L GFR #### [facility] [address] [place], [place] [address] US ABD RIGHT UPPER QUADRANTo n 03-20-2020 [...] post cholecystectomy. No abnormal bile duct dilatation [employer] Inspector [facility]aire[facility] Trans[facility] Date/Time: Mar 20 2020 2:20P Dictated by : TAMIA RIOS MD This examination was interpreted and the report reviewed and electronically signed by: TAMIA RIOS MD on Mar 20 2020 3:55PM EST Normal [facility] Hgb A1con 03-13-2020 HbA1c (Bld) [Mass fraction] 137 mg/dL Normal [facility] Comment on above: Performed By: #### H A1C #### [facility] [address] [place], [place] [address] HbA1c (Bld) [Mass fraction] 6.4 % High 4.0-5.6 [facility] Comment on above: Result Comment: [place] Diabetes Association guidelines indicate that the patients with HgA1c in the range 5.7 ? 6.4% are at increased risk for development of diabetes, and intervention by lifestyle modification may be beneficial. HgA1c greater or equal to 6.5% is considered diagnostic of diabetes. Performed By: #### H A1C #### [facility] [address] [place] [address] Free Thyroxineon 03-12-2020 Free T4 [Mass/Vol] 2.3 ng/dL High 0.9-1.7 [facility] Comment on above: Result Comment: Mariely ents [...] result. Performed By: #### F T4A #### [place] [address] Hepatic Panelon 03-12-2020 Albumin [Mass/Vol] 4.1 g/dL Normal 3.9-4.9 [facility] Comment on above: Performed By: #### L HEPA #### [place] [address] ALP [Catalytic activity/Vol] 109 U/L Normal 34-123 [facility] Comment on above: Performed By: #### L HEPA #### [place] [address] ALT-SGPT Blood 141 U/L High 7-38 [facility] Comment on above: Performed By: #### L HEPA #### [facility] [address] [place] [address] AST-SGOT Blood 103 U/L High 13-35 [facility] Comment on above: Performed By: #### L HEPA #### [place] [address] Bilirubin Ql (U) 0.4 mg/dL Normal 0.2-1.3 [facility] Comment on above: Performed By: #### L HEPA #### [facility] [address] [place] [address] Bilirubin.direct [Mass/Vol] mg/dL Normal 0.0-0.2 [facility] Comment on above: Performed By: #### L HEPA #### [facility] [address] [place] [address] Protein [Mass/Vol] 7.1 g/dL Normal 6.3-8.0 [facility] Comment on above: Performed By: #### L HEPA #### [facility] [address] [place] [address] TSHon 03-12-2020 TSH Qn 0.561 uIU/mL Normal 0.270-4.200 [facility] Comment on above: Result Comment: Preg brynn: [...] result. Performed By: #### L TSH #### [place] [address] Office Visit: test resultson 07-03-2017 Dietary management education, guidance, and counseling (procedure) yes Invalid Interpretation Code [facility] Work Phone: Documentation of current medications (procedure) Done Invalid Interpretation Code [facility] Work Phone: Tobacco smoking status NHIS Never Invalid Interpretation Code [facility] Work Phone: Tobacco use CPHS Never smoker Invalid Interpretation Code [facility] Work Phone: Lab Report: BNP,B-Type NATRI URETIC PEPTIDEon 06-29-2017 BNP 104.1 pg/mL High 0-100 [facility] Work Phone: Office Visit: Rah 06-29-20 Fall risk assessment No Invalid Interpretation Code [facility] Work Phone: Clinical Lists Update: Prelo pediatric critical care nurse 06-20-2017 Left ventricular Ejection fraction 50 % Invalid Interpretation Code [facility] Work Phone: Replaced Document: Margareth HARDWICK Observationson 06-14-2017 EKG QRS axis 55 deg Invalid Interpretation Code [facility] Work Phone: Interpretation Sinus Rhythm Low vol tage in limb leads. ABNORMAL Invalid Interpretation Code [facility] Work Phone: P [place] 33 deg Invalid Interpretation Code [facility] Work Phone: [place] Interval 146 ms Invalid Interpretation Code [facility] Work Phone: Pulse (Heart Rate) 86 /min Invalid Interpretation Code [facility] Work Phone: QRS Duration 90 ms Invalid Interpretation Code [facility] Work Phone: QT Interval new path ms Invalid Interpretation Code [facility] Work Phone: QTc [place] 435 ms Invalid Interpretation Code [facility] Work Phone: T [place] 40 deg Invalid Interpretation Code [facility] Work Phone: Vital Signs Date Time Vital Sign Value Performing Clinician Facility 06-27-2025 08:59-0400 Body height 160.02 cm Leonora Davalos CRITICAL CARE RN-C Work Phone: [facility] 06-27-2025 08:59-0400 Body mass index (BMI) [Ratio] 47.6 kg/m2 Leonora Davalos CRITICAL CARE RN-C Work Phone: [facility] 06-27-2025 08:59-0400 Body weight 122.01 kg Leonora Davalos CRITICAL CARE RN-C Work Phone: [facility] 06-27-2025 08:59-0400 Diastolic blood pressure 69 mm[Hg] Leonorafatimah StarrDavalos CRITICAL CARE RN-C Work Phone: [facility] 06-27-2025 08:59-0400 Heart rate 94 /min Leonorafatimah Davalos CRITICAL CARE RN-C Work Phone: [facility] 06-27-2025 08:59-0400 Respiratory rate 16 /min Leonorafatimah StarrDavalos CRITICAL CARE RN-C Work Phone: [facility] 06-27-2025 08:59-0400 Systolic blood pressure 115 mm[Hg] Leonorafatimah StarrDavalos CRITICAL CARE RN-C Work Phone: [facility] 05-21-2025 13:11-0400 Body temperature 97.3 [degF] Marlon Cesar MD Work Phone: [facility] 05-21-2025 13:11-0400 Diastolic blood pressure 71 mm[Hg] Marlon Cesar MD Work Phone: [facility] 05-21-2025 13:11-0400 Heart rate 78 /min Marlon Cesar MD Work Phone: [facility] 05-21-2025 13:11-0400 Respiratory rate 15 /min Marlon Cesar MD Work Phone: [facility] 05-21-2025 13:11-0400 SaO2% (BldA) [Mass fraction] 95 % Marlon Cesar MD Work Phone: [facility] 05-21-2025 13:11-0400 Systolic blood pressure 121 mm[Hg] Marlon Cesar MD Work Phone: [facility] 04-23-2025 09:51-0400 Body height 160 cm Pac 3 Work Phone: [facility] 04-23-2025 09:51-0400 Body mass index (BMI) [Ratio] 48.11 kg/m2 Pac 3 Work Phone: [facility] 04-23-2025 09:51-0400 Body temperature 97.7 [degF] Pacc 3 Work Phone: [facility] 04-23-2025 09:51-0400 Body weight 123.2 kg Pacc 3 Work Phone: [facility] 04-23-2025 09:51-0400 Diastolic blood pressure 74 mm[Hg] Pacc 3 Work Phone: [facility] 04-23-2025 09:51-0400 Heart rate 102 /min Pacc 3 Work Phone: [facility] 04-23-2025 09:51-0400 Respiratory rate 16 /min Pacc 3 Work Phone: [facility] 04-23-2025 09:51-0400 SaO2% (BldA) [Mass fraction] 96 % Pacc 3 Work Phone: [facility] 04-23-2025 09:51-0400 Systolic blood pressure 142 mm[Hg] Pacc 3 Work Phone: [facility] 04-22-2025 08:20-0400 Body height 160.02 cm Leonora Davalos CRITICAL CARE RN-C Work Phone: [facility] 04-22-2025 08:20-0400 Body mass index (BMI) [Ratio] 47.5 kg/m2 Leonora Davalos CRITICAL CARE RN-C Work Phone: [facility] 04-22-2025 08:20-0400 Body temperature 97.2 [degF] Leonora Davalos CRITICAL CARE RN-C Work Phone: [facility] 04-22-2025 08:20-0400 Body weight 121.56 kg Leonora Davalos CRITICAL CARE RN-C Work Phone: [facility] 04-22-2025 08:20-0400 Diastolic blood pressure 78 mm[Hg] Leonora Davalos CRITICAL CARE RN-C Work Phone: [facility] 04-22-2025 08:20-0400 Heart rate 86 /min Leonora Davalos CRITICAL CARE RN-C Work Phone: [facility] 04-22-2025 08:20-0400 Respiratory rate 20 /min Leonora Starrson CRITICAL CARE RN-C Work Phone: [facility] 04-22-2025 08:20-0400 SaO2% (BldA) [Mass fraction] 95 % Leonora Davalos CRITICAL CARE RN-C Work Phone: [facility] 04-22-2025 08:20-0400 Systolic blood pressure 113 mm[Hg] Leonorafatimah StarrDavalos CRITICAL CARE RN-C Work Phone: [facility] 04-07-2025 07:46-0400 Body height 160 cm Pacc 1 Work Phone: [facility] 04-07-2025 07:46-0400 Body mass index (BMI) [Ratio] 47.64 kg/m2 Pacc 1 Work Phone: [facility] 04-07-2025 07:46-0400 Body temperature 97.59 [degF] Pacc 1 Work Phone: [facility] 04-07-2025 07:46-0400 Body weight 122 kg Pacc 1 Work Phone: [facility] 04-07-2025 07:46-0400 Diastolic blood pressure 73 mm[Hg] Pacc 1 Work Phone: [facility] 04-07-2025 07:46-0400 Heart rate 101 /min Pacc 1 Work Phone: [facility] 04-07-2025 07:46-0400 Respiratory rate 16 /min Pacc 1 Work Phone: [facility] 04-07-2025 07:46-0400 SaO2% (BldA) [Mass fraction] 96 % Pacc 1 Work Phone: [facility] 04-07-2025 07:46-0400 Systolic blood pressure 124 mm[Hg] Pacc 1 Work Phone: [facility] 03-28-2025 14:41-0400 Body temperature 97.39 [degF] Jane Martinez RN Work Phone: [facility] 03-28-2025 14:41-0400 Diastolic blood pressure 72 mm[Hg] Jane Martinez RN Work Phone: [facility] 03-28-2025 14:41-0400 Heart rate 73 /min Jane Martinez RN Work Phone: [facility] 03-28-2025 14:41-0400 Respiratory rate 16 /min Jane Martinez RN Work Phone: [facility] 03-28-2025 14:41-0400 SaO2% (BldA) [Mass fraction] 95 % Jane Martinez RN Work Phone: [facility] 03-28-2025 14:41-0400 Systolic blood pressure 130 mm[Hg] Jane Martinez RN Work Phone: [facility] 03-28-2025 09:53-0400 Body mass index (BMI) [Ratio] 48.01 kg/m2 Marlon Cesar MD Work Phone: [facility] 03-28-2025 09:53-0400 Body temperature 98.01 [degF] Marlon Cesar MD Work Phone: [facility] 03-28-2025 09:53-0400 Body weight 122.92 kg Marlon Cesar MD Work Phone: [facility] 03-28-2025 09:53-0400 Diastolic blood pressure 82 mm[Hg] Marlon Cesar MD Work Phone: [facility] 03-28-2025 09:53-0400 Heart rate 92 /min Marlon Cesar MD Work Phone: [facility] 03-28-2025 09:53-0400 Systolic blood pressure 123 mm[Hg] Marlon Cesar MD Work Phone: [facility] 03-26-2025 08:55-0400 Body temperature 97.2 [degF] Jane Martinez RN Work Phone: [facility] 03-26-2025 08:55-0400 Diastolic blood pressure 70 mm[Hg] Jane Martinez RN Work Phone: [facility] 03-26-2025 08:55-0400 Heart rate 98 /min Jane Martinez RN Work Phone: [facility] 03-26-2025 08:55-0400 Respiratory rate 16 /min Jane Martinez RN Work Phone: [facility] 03-26-2025 08:55-0400 SaO2% (BldA) [Mass fraction] 97 % Jane Martinez RN Work Phone: [facility] 03-26-2025 08:55-0400 Systolic blood pressure 132 mm[Hg] Jane Martinez RN Work Phone: [facility] 03-25-2025 09:00-0400 Diastolic blood pressure 77 mm[Hg] Jane Martinez RN Work Phone: [facility] 03-25-2025 09:00-0400 Heart rate 70 /min Jane Martinez RN Work Phone: [facility] 03-25-2025 09:00-0400 Respiratory rate 16 /min Jane Martinez RN Work Phone: [facility] 03-25-2025 09:00-0400 SaO2% (BldA) [Mass fraction] 97 % Jane Martinez RN Work Phone: [facility] 03-25-2025 09:00-0400 Systolic blood pressure 130 mm[Hg] Jane Martinez RN Work Phone: [facility] 03-24-2025 08:25-0400 Body mass index (BMI) [Ratio] 48.89 kg/m2 Sammie Jordan RN Work Phone: [facility] 03-24-2025 08:25-0400 Body temperature 97.7 [degF] Sammie Jordan RN Work Phone: [facility] 03-24-2025 08:25-0400 Body weight 125.19 kg Sammie Jordan RN Work Phone: [facility] 03-24-2025 08:25-0400 Diastolic blood pressure 64 mm[Hg] Sammie Jordan RN Work Phone: [facility] 03-24-2025 08:25-0400 Heart rate 68 /min Sammie Jordan RN Work Phone: [facility] 03-24-2025 08:25-0400 Respiratory rate 18 /min Sammie Jordan RN Work Phone: [facility] 03-24-2025 08:25-0400 SaO2% (BldA) [Mass fraction] 97 % Sammie Jordan RN Work Phone: [facility] 03-24-2025 08:25-0400 Systolic blood pressure 124 mm[Hg] Sammie Jordan RN Work Phone: [facility] 03-23-2025 16:10-0400 Body temperature 97.59 [degF] Dalila Burroughs RN Work Phone: [facility] 03-23-2025 16:10-0400 Diastolic blood pressure 64 mm[Hg] Dalila Burroughs RN Work Phone: [facility] 03-23-2025 16:10-0400 Heart rate 77 /min Dalila Burroughs RN Work Phone: [facility] 03-23-2025 16:10-0400 Respiratory rate 16 /min Dalila Burroughs RN Work Phone: [facility] 03-23-2025 16:10-0400 SaO2% (BldA) [Mass fraction] 97 % Dalila Burroughs RN Work Phone: [facility] 03-23-2025 16:10-0400 Systolic blood pressure 104 mm[Hg] Dalila Burroughs RN Work Phone: [facility] 03-23-2025 08:50-0400 Body mass index (BMI) [Ratio] 48.71 kg/m2 Miracle Erdos RN Work Phone: [facility] 03-23-2025 08:50-0400 Body temperature 98.01 [degF] Miracle Erdos RN Work Phone: [facility] 03-23-2025 08:50-0400 Body weight 124.74 kg Miracle Erdos RN Work Phone: [facility] 03-23-2025 08:50-0400 Diastolic blood pressure 64 mm[Hg] Miracle Erdos RN Work Phone: [facility] 03-23-2025 08:50-0400 Heart rate 69 /min Miracle Erdos RN Work Phone: [facility] 03-23-2025 08:50-0400 Respiratory rate 18 /min Miracle Erdos RN Work Phone: [facility] 03-23-2025 08:50-0400 SaO2% (BldA) [Mass fraction] 98 % Miracle Erdos RN Work Phone: [facility] 03-23-2025 08:50-0400 Systolic blood pressure 102 mm[Hg] Miracle Erdos RN Work Phone: [facility] 03-22-2025 13:46-0400 Body mass index (BMI) [Ratio] 48.36 kg/m2 Miracle Erdos RN Work Phone: [facility] 03-22-2025 13:46-0400 Body temperature 98.01 [degF] Miracle Erdos RN Work Phone: [facility] 03-22-2025 13:46-0400 Body weight 123.83 kg Miracle Erdos RN Work Phone: [facility] 03-22-2025 13:46-0400 Diastolic blood pressure 72 mm[Hg] Miracle Erdos RN Work Phone: [facility] 03-22-2025 13:46-0400 Heart rate 76 /min Miracle Urrutiaos RN Work Phone: [facility] 03-22-2025 13:46-0400 Respiratory rate 18 /min Miracle Ghadaos RN Work Phone: [facility] 03-22-2025 13:46-0400 SaO2% (BldA) [Mass fraction] 98 % Miracle Urrutiaos RN Work Phone: [facility] 03-22-2025 13:46-0400 Systolic blood pressure 106 mm[Hg] Miracle Urrutiaos RN Work Phone: [facility] 03-21-2025 12:45-0400 Body mass index (BMI) [Ratio] 48.71 kg/m2 Betsy Fuentes RN Work Phone: [facility] 03-21-2025 12:45-0400 Body temperature 98.01 [degF] Betsy Fuentes RN Work Phone: [facility] 03-21-2025 12:45-0400 Body weight 124.74 kg Betsy Fuentes RN Work Phone: [facility] 03-21-2025 12:45-0400 Diastolic blood pressure 70 mm[Hg] Betsy Fuentes RN Work Phone: [facility] 03-21-2025 12:45-0400 Heart rate 75 /min Betsy Fuentes RN Work Phone: [facility] 03-21-2025 12:45-0400 Respiratory rate 16 /min Betsy Fuentes RN Work Phone: [facility] 03-21-2025 12:45-0400 SaO2% (BldA) [Mass fraction] 97 % Betsy Fuentes RN Work Phone: [facility] 03-21-2025 12:45-0400 Systolic blood pressure 100 mm[Hg] Betsy Fuentes RN Work Phone: [facility] 02-20-2025 17:41-0400 Body height 160.02 cm Leonorafatimah Davalos CRITICAL CARE RN-C Work Phone: [facility] 02-20-2025 17:41-0400 Body mass index (BMI) [Ratio] 49.6 kg/m2 Leonorafatimah Davalos CRITICAL CARE RN-C Work Phone: [facility] 02-20-2025 17:41-0400 Body temperature 98.1 [degF] Leonorafatimah StarrDavalos CRITICAL CARE RN-C Work Phone: [facility] 02-20-2025 17:41-0400 Body weight 127 kg Leonorafatimah StarrDavalos CRITICAL CARE RN-C Work Phone: [facility] 02-20-2025 17:41-0400 Diastolic blood pressure 70 mm[Hg] Leonorafatimah StarrDavalos CRITICAL CARE RN-C Work Phone: [facility] 02-20-2025 17:41-0400 Heart rate 97 /min Leonorafatimah StarrDavalos CRITICAL CARE RN-C Work Phone: [facility] 02-20-2025 17:41-0400 Respiratory rate 18 /min Leonorafatimah Davalos CRITICAL CARE RN-C Work Phone: [facility] 02-20-2025 17:41-0400 SaO2% (BldA) [Mass fraction] 97 % Leonorafatimah Davalos CRITICAL CARE RN-C Work Phone: [facility] 02-20-2025 17:41-0400 Systolic blood pressure 140 mm[Hg] Leonorafatimah StarrDavalos CRITICAL CARE RN-C Work Phone: [facility] 01-17-2025 07:31-0400 Body mass index (BMI) [Ratio] 49.79 kg/m2 Eliceo Ambriz APRN.[employer] Work Phone: [facility] 01-17-2025 07:31-0400 Body weight 127.46 kg Eliceo Ambriz [employer] Work Phone: [facility] 01-10-2025 12:45-0400 Body mass index (BMI) [Ratio] 50.1 kg/m2 Leonora Davalos CRITICAL CARE RN-C Work Phone: [facility] 01-10-2025 12:45-0400 Body temperature 97.2 [degF] Leonora Davalos CRITICAL CARE RN-C Work Phone: [facility] 01-10-2025 12:45-0400 Body weight 128.36 kg Leonora Davalos CRITICAL CARE RN-C Work Phone: [facility] 01-10-2025 12:45-0400 Diastolic blood pressure 75 mm[Hg] Leonora Davalos CRITICAL CARE RN-C Work Phone: [facility] 01-10-2025 12:45-0400 Heart rate 81 /min Leonora Davalos CRITICAL CARE RN-C Work Phone: [facility] 01-10-2025 12:45-0400 Respiratory rate 20 /min Leonora Davalos CRITICAL CARE RN-C Work Phone: [facility] 01-10-2025 12:45-0400 SaO2% (BldA) [Mass fraction] 96 % Leonora Davalos CRITICAL CARE RN-C Work Phone: [facility] 01-10-2025 12:45-0400 Systolic blood pressure 120 mm[Hg] Leonora Davalos CRITICAL CARE RN-C Work Phone: [facility] 01-07-2025 08:15-0400 Body height 160.02 cm Leonora Davalos CRITICAL CARE RN-C Work Phone: [facility] 01-07-2025 08:15-0400 Body weight 128.82 kg Leonora Davalos CRITICAL CARE RN-C Work Phone: [facility] 01-07-2025 08:15-0400 Heart rate 103 /min Leonora Davalos CRITICAL CARE RN-C Work Phone: [facility] 01-07-2025 08:15-0400 SaO2% (BldA) [Mass fraction] 96 % Leonora Davalos CRITICAL CARE RN-C Work Phone: [facility] 12-04-2024 15:13-0400 Body height 160.02 cm Leonora Davalos CRITICAL CARE RN-C Work Phone: [facility] 12-04-2024 15:13-0400 Body mass index (BMI) [Ratio] 51.3 kg/m2 Leonorafatimah Davalos CRITICAL CARE RN-C Work Phone: [facility] 12-04-2024 15:13-0400 Body temperature 98.1 [degF] Leonorafatimah Davalos CRITICAL CARE RN-C Work Phone: [facility] 12-04-2024 15:13-0400 Body weight 131.54 kg Leonora Davalos CRITICAL CARE RN-C Work Phone: [facility] 12-04-2024 15:13-0400 Diastolic blood pressure 82 mm[Hg] Leonora Davalos CRITICAL CARE RN-C Work Phone: [facility] 12-04-2024 15:13-0400 Heart rate 89 /min Leonora Davalos CRITICAL CARE RN-C Work Phone: [facility] 12-04-2024 15:13-0400 Respiratory rate 18 /min Leonorafatimah Davalos CRITICAL CARE RN-C Work Phone: [facility] 12-04-2024 15:13-0400 SaO2% (BldA) [Mass fraction] 97 % Leonora Davalos CRITICAL CARE RN-C Work Phone: [facility] 12-04-2024 15:13-0400 Systolic blood pressure 148 mm[Hg] Leonora Davalos CRITICAL CARE RN-C Work Phone: [facility] 11-19-2024 20:33-0400 Body height 160.02 cm Leonora Davalos CRITICAL CARE RN-C Work Phone: [facility] 11-19-2024 20:33-0400 Body mass index (BMI) [Ratio] 51.2 kg/m2 Leonora Davalos CRITICAL CARE RN-C Work Phone: [facility] 11-19-2024 20:33-0400 Body temperature 98.1 [degF] Leonora Davalos CRITICAL CARE RN-C Work Phone: [facility] 11-19-2024 20:33-0400 Body weight 131.08 kg Leonora Davalos CRITICAL CARE RN-C Work Phone: [facility] 11-19-2024 20:33-0400 Diastolic blood pressure 70 mm[Hg] Leonorafatimah Davalos CRITICAL CARE RN-C Work Phone: [facility] 11-19-2024 20:33-0400 Heart rate 90 /min Leonorafatimah Davalos CRITICAL CARE RN-C Work Phone: [facility] 11-19-2024 20:33-0400 Respiratory rate 18 /min Leonorafatimah Davalos CRITICAL CARE RN-C Work Phone: [facility] 11-19-2024 20:33-0400 SaO2% (BldA) [Mass fraction] 98 % Leonorafatimah Davalos CRITICAL CARE RN-C Work Phone: [facility] 11-19-2024 20:33-0400 Systolic blood pressure 115 mm[Hg] Leonorafatimah Davalos CRITICAL CARE RN-C Work Phone: [facility] 11-13-2024 10:21-0500 Body mass index (BMI) [Ratio] 52 kg/m2 Leonorafatimah Davalos CRITICAL CARE RN-C Work Phone: [facility] 11-13-2024 10:21-0500 Body weight 133.35 kg Leonorafatimah Davalos CRITICAL CARE RN-C Work Phone: [facility] 11-13-2024 10:21-0500 Diastolic blood pressure 80 mm[Hg] Leonorafatimah Davalos CRITICAL CARE RN-C Work Phone: [facility] 11-13-2024 10:21-0500 Heart rate 90 /min Leonorafatimah Davalos CRITICAL CARE RN-C Work Phone: [facility] 11-13-2024 10:21-0500 Respiratory rate 18 /min Leonorafatimah Davalos CRITICAL CARE RN-C Work Phone: [facility] 11-13-2024 10:21-0500 Systolic blood pressure 168 mm[Hg] Leonora Davalos CRITICAL CARE RN-C Work Phone: [facility] 11-08-2024 07:59-0500 Body mass index (BMI) [Ratio] 50.68 kg/m2 [facility] [employer] Work Phone: [facility] 11-08-2024 07:59-0500 Body weight 129.73 kg [facility] [employer] Work Phone: [facility] 09-26-2024 19:21-0500 Body temperature 98.4 [degF] Leonora Davalos CRITICAL CARE RN-C Work Phone: [facility] 09-26-2024 19:21-0500 Diastolic blood pressure 71 mm[Hg] Leonora Davalos CRITICAL CARE RN-C Work Phone: [facility] 09-26-2024 19:21-0500 Heart rate 78 /min Leonora Davalos CRITICAL CARE RN-C Work Phone: [facility] 09-26-2024 19:21-0500 Respiratory rate 16 /min Leonora Davalos CRITICAL CARE RN-C Work Phone: [facility] 09-26-2024 19:21-0500 SaO2% (BldA) [Mass fraction] 99 % Leonora Davalos CRITICAL CARE RN-C Work Phone: [facility] 09-26-2024 19:21-0500 Systolic blood pressure 152 mm[Hg] Leonora Davalos CRITICAL CARE RN-C Work Phone: [facility] 09-26-2024 14:37-0500 Body mass index (BMI) [Ratio] 51.7 kg/m2 Leonora Davalos CRITICAL CARE RN-C Work Phone: [facility] 09-26-2024 14:37-0500 Body weight 132.44 kg Leonora Davalos CRITICAL CARE RN-C Work Phone: [facility] 09-02-2024 10:57-0500 Body temperature 97.6 [degF] Leonora Davalos CRITICAL CARE RN-C Work Phone: [facility] 09-02-2024 10:57-0500 Body weight 132.9 kg Leonora Davalos CRITICAL CARE RN-C Work Phone: [facility] 09-02-2024 10:57-0500 Diastolic blood pressure 76 mm[Hg] Leonora Davalos CRITICAL CARE RN-C Work Phone: [facility] 09-02-2024 10:57-0500 Heart rate 70 /min Leonorafatimah Davalos CRITICAL CARE RN-C Work Phone: [facility] 09-02-2024 10:57-0500 Respiratory rate 18 /min Leonora Davalos CRITICAL CARE RN-C Work Phone: [facility] 09-02-2024 10:57-0500 SaO2% (BldA) [Mass fraction] 96 % Leonora Davalos CRITICAL CARE RN-C Work Phone: [facility] 09-02-2024 10:57-0500 Systolic blood pressure 137 mm[Hg] Leonora Davalos CRITICAL CARE RN-C Work Phone: [facility] 09-02-2024 09:38-0500 Body mass index (BMI) [Ratio] 51.9 kg/m2 Leonora Davalos CRITICAL CARE RN-C Work Phone: [facility] 09-02-2024 09:38-0500 Body weight 132.9 kg Leonora Davalos CRITICAL CARE RN-C Work Phone: [facility] 09-02-2024 09:38-0500 Diastolic blood pressure 63 mm[Hg] Leonora Davalos CRITICAL CARE RN-C Work Phone: [facility] 09-02-2024 09:38-0500 Heart rate 80 /min Leonora Davalos CRITICAL CARE RN-C Work Phone: [facility] 09-02-2024 09:38-0500 Systolic blood pressure 84 mm[Hg] Leonora Davalos CRITICAL CARE RN-C Work Phone: [facility] 04-17-2024 16:23-0400 Body height 160 cm Vaughn Decker MD Work Phone: [facility] 04-17-2024 16:23-0400 Body mass index (BMI) [Ratio] 50.55 kg/m2 Vaughn Decker MD Work Phone: [facility] 04-17-2024 16:23-0400 Body weight 129.4 kg Vaughn Decker MD Work Phone: [facility] 04-17-2024 16:23-0400 Diastolic blood pressure 74 mm[Hg] Vaughn Decker MD Work Phone: [facility] 04-17-2024 16:23-0400 Heart rate 76 /min Vaughn Decker MD Work Phone: [facility] 04-17-2024 16:23-0400 Respiratory rate 16 /min Vaughn Decker MD Work Phone: [facility] 04-17-2024 16:23-0400 SaO2% (BldA) [Mass fraction] 96 % Vaughn Decker MD Work Phone: [facility] 04-17-2024 16:23-0400 Systolic blood pressure 119 mm[Hg] Vaughn Decker MD Work Phone: [facility] 04-10-2024 08:42-0400 Body mass index (BMI) [Ratio] 50.13 kg/m2 Rosy Esteban MD Work Phone: [facility] 04-10-2024 08:42-0400 Body weight 128.37 kg Rosy Esteban MD Work Phone: [facility] 04-10-2024 08:42-0400 Diastolic blood pressure 97 mm[Hg] Rosy Esteban MD Work Phone: [facility] 04-10-2024 08:42-0400 Heart rate 90 /min Rosy Esteban MD Work Phone: [facility] 04-10-2024 08:42-0400 Systolic blood pressure 164 mm[Hg] Rosy Esteban MD Work Phone: [facility] 03-11-2024 11:19-0400 Body height 160 cm Uriah Korina [employer] Work Phone: [facility] 03-11-2024 11:19-0400 Body mass index (BMI) [Ratio] 50.13 kg/m2 Uriah Korina [employer] Work Phone: [facility] 03-11-2024 11:19-0400 Body weight 128.37 kg Uriah Korina [employer] Work Phone: [facility] 03-11-2024 11:19-0400 Diastolic blood pressure 69 mm[Hg] Uriah Korina [employer] DIRECT[employer] Work Phone: [facility] 03-11-2024 11:19-0400 Heart rate 78 /min Uriah Korina [employer] Work Phone: [facility] 03-11-2024 11:19-0400 Systolic blood pressure 164 mm[Hg] Uriah Korina [employer] DIRECT[employer] Work Phone: [facility] 12-15-2023 13:12-0400 Body weight 129 kg Eliceo Danieliec [employer] DIRECT[employer] Work Phone: [facility] 12-15-2023 13:12-0400 Diastolic blood pressure 79 mm[Hg] Eliceo Kupiec [employer] DIRECT[employer] Work Phone: [facility] 12-15-2023 13:12-0400 Heart rate 85 /min Eliceo Kupiec [employer] Work Phone: [facility] 12-15-2023 13:12-0400 SaO2% (BldA) [Mass fraction] 100 % Eliceo Kupiec [employer] Work Phone: [facility] 12-15-2023 13:12-0400 Systolic blood pressure 117 mm[Hg] Eliceo Kupiec [employer] DIRECT[employer] Work Phone: [facility] 08-28-2023 08:40-0500 Body height 160.02 cm CRITICAL CARE RN-C Leonora Davalos CRITICAL CARE RN Work Phone: [facility] 08-28-2023 08:26-0500 Body mass index (BMI) [Ratio] 50 kg/m2 CRITICAL CARE RN-C Leonora Davalos CRITICAL CARE RN Work Phone: [facility] 08-28-2023 08:26-0500 Body weight 128.02 kg CRITICAL CARE RN-C Leonora Davalos CRITICAL CARE RN Work Phone: [facility] 08-28-2023 08:26-0500 Diastolic blood pressure 84 mm[Hg] CRITICAL CARE RN-C Leonora Starrson CRITICAL CARE RN Work Phone: [facility] 08-28-2023 08:26-0500 Systolic blood pressure 132 mm[Hg] CRITICAL CARE RN-C Leonora Davalos CRITICAL CARE RN Work Phone: [facility] 07-07-2023 14:24-0400 Body height 160.02 cm CRITICAL CARE RN-C Leonora Davalos CRITICAL CARE RN Work Phone: [facility] 07-07-2023 14:24-0400 Body mass index (BMI) [Ratio] 49.2 kg/m2 CRITICAL CARE RN-C Leonora Davalos CRITICAL CARE RN Work Phone: [facility] 07-07-2023 14:24-0400 Body weight 126.09 kg CRITICAL CARE RN-C Leonora Davalos CRITICAL CARE RN Work Phone: [facility] 07-07-2023 14:24-0400 Diastolic blood pressure 90 mm[Hg] CRITICAL CARE RN-C Leonora Davalos CRITICAL CARE RN Work Phone: [facility] 07-07-2023 14:24-0400 Heart rate 77 /min CRITICAL CARE RN-C Leonora Davalos CRITICAL CARE RN Work Phone: [facility] 07-07-2023 14:24-0400 Respiratory rate 18 /min CRITICAL CARE RN-C Leonora Starrson CRITICAL CARE RN Work Phone: [facility] 07-07-2023 14:24-0400 Systolic blood pressure 129 mm[Hg] CRITICAL CARE RN-C Leonora Starrson CRITICAL CARE RN Work Phone: [facility] 06-28-2023 06:45-0400 Body mass index (BMI) [Ratio] 48.6 kg/m2 CRITICAL CARE RN-C Leonora Starrson CRITICAL CARE RN Work Phone: [facility] 06-28-2023 06:45-0400 Body temperature 96.5 [degF] CRITICAL CARE RN-C Leonora Davalos CRITICAL CARE RN Work Phone: [facility] 06-28-2023 06:45-0400 Body weight 124.73 kg CRITICAL CARE RN-C Leonora Davalos CRITICAL CARE RN Work Phone: [facility] 06-28-2023 06:45-0400 Diastolic blood pressure 78 mm[Hg] CRITICAL CARE RN-C Leonora Davalos CRITICAL CARE RN Work Phone: [facility] 06-28-2023 06:45-0400 Heart rate 95 /min CRITICAL CARE RN-C Leonora Davalos CRITICAL CARE RN Work Phone: [facility] 06-28-2023 06:45-0400 Respiratory rate 20 /min CRITICAL CARE RN-C Leonora Davalos CRITICAL CARE RN Work Phone: [facility] 06-28-2023 06:45-0400 SaO2% (BldA) [Mass fraction] 96 % CRITICAL CARE RN-C Leonora Davalos CRITICAL CARE RN Work Phone: [facility] 06-28-2023 06:45-0400 Systolic blood pressure 120 mm[Hg] CRITICAL CARE RN-C Leonora Davalos CRITICAL CARE RN Work Phone: [facility] 05-03-2023 09:17-0400 Body height 160 cm Vaughn Decker MD Work Phone: [facility] 05-03-2023 09:17-0400 Body weight 124.65 kg Vaughn Decker MD Work Phone: [facility] 05-03-2023 09:17-0400 Diastolic blood pressure 85 mm[Hg] Vaughn Decker MD Work Phone: [facility] 05-03-2023 09:17-0400 Heart rate 85 /min Vaughn Decker MD Work Phone: [facility] 05-03-2023 09:17-0400 SaO2% (BldA) [Mass fraction] 96 % Vaughn Decker MD Work Phone: [facility] 05-03-2023 09:17-0400 Systolic blood pressure 128 mm[Hg] Vaughn Decker MD Work Phone: [facility] 04-17-2023 12:51-0400 Body height 160.02 cm CRITICAL CARE RN-C Leonora Davalos CRITICAL CARE RN Work Phone: [facility] 04-17-2023 12:51-0400 Body weight 124.73 kg CRITICAL CARE RN-C Leonora Davalos CRITICAL CARE RN Work Phone: [facility] 04-17-2023 12:51-0400 Heart rate 86 /min CRITICAL CARE RN-C Leonora Davalos CRITICAL CARE RN Work Phone: [facility] 04-17-2023 12:51-0400 SaO2% (BldA) [Mass fraction] 97 % CRITICAL CARE RN-C Leonora Davalos CRITICAL CARE RN Work Phone: [facility] 04-17-2023 09:04-0400 Body mass index (BMI) [Ratio] 48.6 kg/m2 CRITICAL CARE RN-C Leonora Davalos CRITICAL CARE RN Work Phone: [facility] 04-17-2023 09:04-0400 Body weight 124.73 kg CRITICAL CARE RN-C Leonora Davalos CRITICAL CARE RN Work Phone: [facility] 04-17-2023 09:04-0400 Diastolic blood pressure 72 mm[Hg] CRITICAL CARE RN-C Leonora Davalos CRITICAL CARE RN Work Phone: [facility] 04-17-2023 09:04-0400 Heart rate 98 /min CRITICAL CARE RN-C Leonora Davalos CRITICAL CARE RN Work Phone: [facility] 04-17-2023 09:04-0400 Respiratory rate 22 /min CRITICAL CARE RN-C Leonora Davalos CRITICAL CARE RN Work Phone: [facility] 04-17-2023 09:04-0400 Systolic blood pressure 126 mm[Hg] CRITICAL CARE RN-C Leonora Davalos CRITICAL CARE RN Work Phone: [facility] 03-27-2023 07:43-0400 Body mass index (BMI) [Ratio] 47.8 kg/m2 CRITICAL CARE RN-C Leonora Davalos CRITICAL CARE RN Work Phone: [facility] 03-27-2023 07:43-0400 Body temperature 96.2 [degF] CRITICAL CARE RN-C Leonora Davalos CRITICAL CARE RN Work Phone: [facility] 03-27-2023 07:43-0400 Body weight 122.46 kg CRITICAL CARE RN-C Leonora Davalos CRITICAL CARE RN Work Phone: [facility] 03-27-2023 07:43-0400 Diastolic blood pressure 84 mm[Hg] CRITICAL CARE RN-C Leonora Davalos CRITICAL CARE RN Work Phone: [facility] 03-27-2023 07:43-0400 Heart rate 81 /min CRITICAL CARE RN-C Leonora Davalos CRITICAL CARE RN Work Phone: [facility] 03-27-2023 07:43-0400 Respiratory rate 18 /min CRITICAL CARE RN-C Leonora Davalos CRITICAL CARE RN Work Phone: [facility] 03-27-2023 07:43-0400 SaO2% (BldA) [Mass fraction] 96 % CRITICAL CARE RN-C Leonora Davalos CRITICAL CARE RN Work Phone: [facility] 03-27-2023 07:43-0400 Systolic blood pressure 143 mm[Hg] CRITICAL CARE RN-C Leonora Davalos CRITICAL CARE RN Work Phone: [facility] 01-23-2023 18:15-0400 Body mass index (BMI) [Ratio] 49 kg/m2 CRITICAL CARE RN-C Leonora Davalos CRITICAL CARE RN Work Phone: [facility] 01-23-2023 18:15-0400 Body temperature 98.2 [degF] CRITICAL CARE RN-C Leonora Davalos CRITICAL CARE RN Work Phone: [facility] 01-23-2023 18:15-0400 Body weight 125.64 kg CRITICAL CARE RN-C Leonora Davalos CRITICAL CARE RN Work Phone: [facility] 01-23-2023 18:15-0400 Diastolic blood pressure 70 mm[Hg] CRITICAL CARE RN-C Leonora Davalos CRITICAL CARE RN Work Phone: [facility] 01-23-2023 18:15-0400 Heart rate 77 /min CRITICAL CARE RN-C Leonora Davalos CRITICAL CARE RN Work Phone: [facility] 01-23-2023 18:15-0400 Respiratory rate 18 /min CRITICAL CARE RN-C Leonora Davalos CRITICAL CARE RN Work Phone: [facility] 01-23-2023 18:15-0400 SaO2% (BldA) [Mass fraction] 97 % CRITICAL CARE RN-C Leonora Davalos CRITICAL CARE RN Work Phone: [facility] 01-23-2023 18:15-0400 Systolic blood pressure 140 mm[Hg] CRITICAL CARE RN-C Leonora Davalos CRITICAL CARE RN Work Phone: [facility] 12-26-2022 07:41-0400 Body mass index (BMI) [Ratio] 48.3 kg/m2 CRITICAL CARE RN-C Leonora Davalos CRITICAL CARE RN Work Phone: [facility] 12-26-2022 07:41-0400 Body temperature 97.5 [degF] CRITICAL CARE RN-C Leonora Davalos CRITICAL CARE RN Work Phone: [facility] 12-26-2022 07:41-0400 Body weight 123.83 kg CRITICAL CARE RN-C Leonora Davalos CRITICAL CARE RN Work Phone: [facility] 12-26-2022 07:41-0400 Diastolic blood pressure 81 mm[Hg] CRITICAL CARE RN-C Leonora Davalos CRITICAL CARE RN Work Phone: [facility] 12-26-2022 07:41-0400 Heart rate 83 /min CRITICAL CARE RN-C Leonora Davalos CRITICAL CARE RN Work Phone: [facility] 12-26-2022 07:41-0400 Respiratory rate 18 /min CRITICAL CARE RN-C Leonora Davalos CRITICAL CARE RN Work Phone: [facility] 12-26-2022 07:41-0400 SaO2% (BldA) [Mass fraction] 99 % CRITICAL CARE RN-Yeyo Davalos CRITICAL CARE RN Work Phone: [facility] 12-26-2022 07:41-0400 Systolic blood pressure 145 mm[Hg] CRITICAL CARE RN-C Leonora Davalos CRITICAL CARE RN Work Phone: [facility] 2022 08:37-0500 Body height 160.[address] Shiraz Stephens Work Phone: [facility] 2022 08:37-0500 Body mass index (BMI) [Ratio] 48.5 kg/m2 Dr. Shiraz Stephens Work Phone: [facility] 2022 08:37-0500 Body weight 124.[address] Shiraz Stephens Work Phone: [facility] 2022 08:37-0500 Diastolic blood pressure 82 mm[Hg] Dr. Shiraz Stephens Work Phone: [facility] 2022 08:37-0500 Heart rate 78 /min Dr. Shiarz Stephens Work Phone: [facility] 2022 08:37-0500 Respiratory rate 18 /min Dr. Shiraz Stephens Work Phone: [facility] 2022 08:37-0500 SaO2% (BldA) [Mass fraction] 95 % Dr. Shiraz Stephens Work Phone: [facility] 2022 08:37-0500 Systolic blood pressure 135 mm[Hg] Dr. Shiraz Stephens Work Phone: [facility] 11-01-2022 13:25-0500 Diastolic blood pressure 55 mm[Hg] Rosy Esteban MD Work Phone: [facility] 11-01-2022 13:25-0500 Heart rate 74 /min Rosy Esteban MD Work Phone: [facility] 11-01-2022 13:25-0500 Respiratory rate 21 /min Rosy Esteban MD Work Phone: [facility] 11-01-2022 13:25-0500 SaO2% (BldA) [Mass fraction] 95 % Rosy Esteban MD Work Phone: [facility] 11-01-2022 13:25-0500 Systolic blood pressure 136 mm[Hg] Rosy Esteban MD Work Phone: [facility] 11-01-2022 12:13-0500 Body mass index (BMI) [Ratio] 47.3 kg/m2 Rosy Esteban MD Work Phone: [facility] 11-01-2022 12:13-0500 Body weight 121.11 kg Rosy Esteban MD Work Phone: [facility] 09-16-2022 10:49-0500 Body height 160.[address] Shiraz Stephens Work Phone: [facility] 09-16-2022 10:49-0500 Body mass index (BMI) [Ratio] 48.5 kg/m2 Dr. Shiraz Stephens Work Phone: [facility] 09-16-2022 10:49-0500 Body weight 124.[address] Shiraz Stephens Work Phone: [facility] 09-16-2022 10:49-0500 Diastolic blood pressure 80 mm[Hg] Dr. Shiraz Stephens Work Phone: [facility] 09-16-2022 10:49-0500 Heart rate 82 /min Dr. Shiraz Stephens Work Phone: [facility] 09-16-2022 10:49-0500 SaO2% (BldA) [Mass fraction] 93 % Dr. Shiraz Stephens Work Phone: [facility] 09-16-2022 10:49-0500 Systolic blood pressure 119 mm[Hg] Dr. Shiraz Stephens Work Phone: [facility] 09-06-2022 16:42-0500 Body height 160 cm Vaughn Decker MD Work Phone: [facility] 09-06-2022 16:42-0500 Body weight 125.19 kg Vaughn Decker MD Work Phone: [facility] 09-06-2022 16:42-0500 Diastolic blood pressure 71 mm[Hg] Vaughn Decker MD Work Phone: [facility] 09-06-2022 16:42-0500 Heart rate 69 /min Vaughn Decker MD Work Phone: [facility] 09-06-2022 16:42-0500 Respiratory rate 16 /min Vaughn Decker MD Work Phone: [facility] 09-06-2022 16:42-0500 SaO2% (BldA) [Mass fraction] 95 % Vaughn Decker MD Work Phone: [facility] 09-06-2022 16:42-0500 Systolic blood pressure 118 mm[Hg] Vaughn Decker MD Work Phone: [facility] 08-28-2022 00:22-0500 Heart rate 75 /min Dr. Shiraz Stephens Work Phone: [facility] 08-28-2022 00:22-0500 Respiratory rate 15 /min Dr. Shiraz Stephens Work Phone: [facility] 08-28-2022 00:22-0500 SaO2% (BldA) [Mass fraction] 97 % Dr. Shiraz Stephens Work Phone: [facility] 08-27-2022 20:17-0500 Body height 160.[address] Shiraz Stephens Work Phone: [facility] Work Phone: 08-27-2022 20:17-0500 Body mass index (BMI) [Ratio] 48.9 kg/m2 Dr. Shiraz Stephens Work Phone: [facility] 08-27-2022 20:17-0500 Body temperature 96.4 [degF] Dr. Shiraz Stephens Work Phone: [facility] 08-27-2022 20:17-0500 Body weight 125.[address] Shiraz Stephens Work Phone: [facility] 08-27-2022 20:17-0500 Diastolic blood pressure 68 mm[Hg] Dr. Shiraz Stephens Work Phone: [facility] 08-27-2022 20:17-0500 Systolic blood pressure 138 mm[Hg] Dr. Shiraz Stephens Work Phone: [facility] 07-28-2022 15:56-0500 Body height 160.[address] Shiraz Stephens Work Phone: [facility] Work Phone: 07-28-2022 15:56-0500 Body mass index (BMI) [Ratio] 49.4 kg/m2 Dr. Shiraz Stephens Work Phone: [facility] 07-28-2022 15:56-0500 Body temperature 97.9 [degF] Dr. Shiraz Stephens Work Phone: [facility] 07-28-2022 15:56-0500 Body weight 126.[address] Shiraz Stephens Work Phone: [facility] 07-28-2022 15:56-0500 Diastolic blood pressure 82 mm[Hg] Dr. Shiraz Stephens Work Phone: [facility] 07-28-2022 15:56-0500 Heart rate 78 /min Dr. Shiraz Stephens Work Phone: [facility] 07-28-2022 15:56-0500 Respiratory rate 18 /min Dr. Shiraz Stephens Work Phone: [facility] 07-28-2022 15:56-0500 SaO2% (BldA) [Mass fraction] 97 % Dr. Shiraz Stephens Work Phone: [facility] 07-28-2022 15:56-0500 Systolic blood pressure 150 mm[Hg] Dr. Shiraz Stephens Work Phone: [facility] 07-26-2022 11:25-0500 Body mass index (BMI) [Ratio] 49 kg/m2 Dr. Shiraz Stephens Work Phone: [facility] 07-26-2022 11:25-0500 Body weight 125.[address] Shiraz Stephens Work Phone: [facility] 07-26-2022 11:25-0500 Diastolic blood pressure 90 mm[Hg] Dr. Shiraz Stephens Work Phone: [facility] 07-26-2022 11:25-0500 Systolic blood pressure 153 mm[Hg] Dr. Shiraz Stephens Work Phone: [facility] 06-22-2022 10:48-0400 Body mass index (BMI) [Ratio] 48.2 kg/m2 Dr. Shiraz Stephens Work Phone: [facility] 06-22-2022 10:48-0400 Body temperature 97.1 [degF] Dr. Shiraz Stephens Work Phone: [facility] 06-22-2022 10:48-0400 Body weight 123.[address] Shiraz Stephens Work Phone: [facility] 06-22-2022 10:48-0400 Diastolic blood pressure 73 mm[Hg] Dr. Shiraz Stephens Work Phone: [facility] 06-22-2022 10:48-0400 Heart rate 82 /min Dr. Shiraz Stephens Work Phone: [facility] 06-22-2022 10:48-0400 Respiratory rate 18 /min Dr. Shiraz Stephens Work Phone: [facility] 06-22-2022 10:48-0400 SaO2% (BldA) [Mass fraction] 99 % Dr. Shiraz Stephens Work Phone: [facility] 06-22-2022 10:48-0400 Systolic blood pressure 133 mm[Hg] Dr. Shiraz Stephens Work Phone: [facility] 06-16-2022 15:28-0400 Body mass index (BMI) [Ratio] 47.9 kg/m2 Dr. Shiraz Stephens Work Phone: [facility] 06-16-2022 15:28-0400 Body temperature 98.4 [degF] Dr. Shiraz Stephens Work Phone: [facility] 06-16-2022 15:28-0400 Body weight 122.[address] Shiraz Stephens Work Phone: [facility] 06-16-2022 15:28-0400 Diastolic blood pressure 70 mm[Hg] Dr. Shiraz Stephens Work Phone: [facility] 06-16-2022 15:28-0400 Heart rate 79 /min Dr. Shiraz Stephens Work Phone: [facility] 06-16-2022 15:28-0400 Respiratory rate 18 /min Dr. Shiraz Stephens Work Phone: [facility] 06-16-2022 15:28-0400 SaO2% (BldA) [Mass fraction] 96 % Dr. Shiraz Stephens Work Phone: [facility] 06-16-2022 15:28-0400 Systolic blood pressure 120 mm[Hg] Dr. Shiraz Stephens Work Phone: [facility] 06-02-2022 11:09-0400 Body mass index (BMI) [Ratio] 48.2 kg/m2 Dr. Shiraz Stephens Work Phone: [facility] 06-02-2022 11:09-0400 Body weight 123.[address] Shiraz Stephens Work Phone: [facility] 06-02-2022 11:09-0400 Diastolic blood pressure 77 mm[Hg] Dr. Shiraz Stephens Work Phone: [facility] 06-02-2022 11:09-0400 Heart rate 86 /min Dr. Shiraz Stephens Work Phone: [facility] 06-02-2022 11:09-0400 Respiratory rate 16 /min Dr. Shiraz Stephens Work Phone: [facility] 06-02-2022 11:09-0400 SaO2% (BldA) [Mass fraction] 95 % Dr. Shiraz Stephens Work Phone: [facility] 06-02-2022 11:09-0400 Systolic blood pressure 110 mm[Hg] Dr. Shiraz Stephens Work Phone: [facility] 02-14-2022 08:35-0400 Body height 160 cm Tanay Ruano [employer] Work Phone: [facility] 02-14-2022 08:35-0400 Body weight 122.92 kg Tanya Ruano [employer] Work Phone: [facility] 02-14-2022 08:35-0400 Diastolic blood pressure 70 mm[Hg] Tanya Ruano [employer] DIRECT[employer] Work Phone: [facility] 02-14-2022 08:35-0400 Heart rate 91 /min Tanya Ruano [employer] Work Phone: [facility] 02-14-2022 08:35-0400 SaO2% (BldA) [Mass fraction] 95 % Tanya Ruano [employer] Work Phone: [facility] 02-14-2022 08:35-0400 Systolic blood pressure 122 mm[Hg] Tanya Ruano [employer] Work Phone: [facility] 01-26-2022 19:54-0400 Body height 160.[address] Shiraz Stephens Work Phone: [facility] Work Phone: 01-26-2022 19:54-0400 Body mass index (BMI) [Ratio] 48.2 kg/m2 Dr. Shiraz Stephens Work Phone: [facility] Work Phone: 01-26-2022 19:54-0400 Body temperature 98.1 [degF] Dr. Shiraz Stephens Work Phone: [facility] Work Phone: 01-26-2022 19:54-0400 Body weight 123.[address] Shiraz Stephens Work Phone: [facility] Work Phone: 01-26-2022 19:54-0400 Diastolic blood pressure 80 mm[Hg] Dr. Shiraz Stephens Work Phone: [facility] Work Phone: 01-26-2022 19:54-0400 Heart rate 105 /min Dr. Shiraz Stephens Work Phone: [facility] Work Phone: 01-26-2022 19:54-0400 Respiratory rate 18 /min Dr. Shiraz Stephens Work Phone: [facility] Work Phone: 01-26-2022 19:54-0400 SaO2% (BldA) [Mass fraction] 97 % Dr. Shiraz Stephens Work Phone: [facility] Work Phone: 01-26-2022 19:54-0400 Systolic blood pressure 150 mm[Hg] Dr. Shiraz Stephens Work Phone: [facility] Work Phone: 01-25-2022 11:31-0400 Body temperature 97.4 [degF] Dr. Shiraz Stephens Work Phone: [facility] Work Phone: 01-25-2022 11:31-0400 Heart rate 86 /min Dr. Shiraz Stephens Work Phone: [facility] Work Phone: 01-25-2022 11:31-0400 SaO2% (BldA) [Mass fraction] 98 % Dr. Shiraz Stephens Work Phone: [facility] Work Phone: 01-12-2022 07:51-0400 Body height 160 cm Rosy Esteban MD Work Phone: [facility] 01-12-2022 07:51-0400 Body weight 122.47 kg Rosy Esteban MD Work Phone: [facility] 01-12-2022 07:51-0400 Diastolic blood pressure 77 mm[Hg] Rosy Esteban MD Work Phone: [facility] 01-12-2022 07:51-0400 Heart rate 93 /min Rosy Esteban MD Work Phone: [facility] 01-12-2022 07:51-0400 Systolic blood pressure 147 mm[Hg] Rosy Esteban MD Work Phone: [facility] 11-29-2021 07:43-0400 Body height 160.[address] Shiraz Stephens Work Phone: [facility] Work Phone: 11-29-2021 07:43-0400 Body mass index (BMI) [Ratio] 48.1 kg/m2 Dr. Shiraz Stephens Work Phone: [facility] Work Phone: 11-29-2021 07:43-0400 Body temperature 97.6 [degF] Dr. Shiraz Stephens Work Phone: [facility] Work Phone: 11-29-2021 07:43-0400 Body weight 123.[address] Shiraz Stephens Work Phone: [facility] Work Phone: 11-29-2021 07:43-0400 Diastolic blood pressure 75 mm[Hg] Dr. Shiraz Stephens Work Phone: [facility] Work Phone: 11-29-2021 07:43-0400 Heart rate 105 /min Dr. Shiraz Stephens Work Phone: [facility] Work Phone: 11-29-2021 07:43-0400 Respiratory rate 16 /min Dr. Shiraz Stephens Work Phone: [facility] Work Phone: 11-29-2021 07:43-0400 SaO2% (BldA) [Mass fraction] 95 % Dr. Shiraz Stephens Work Phone: [facility] Work Phone: 11-29-2021 07:43-0400 Systolic blood pressure 114 mm[Hg] Dr. Shiraz Stephens Work Phone: [facility] Work Phone: 11-04-2021 09:32-0500 Diastolic blood pressure 86 mm[Hg] Dr. Shiraz Stephens Work Phone: [facility] Work Phone: 11-04-2021 09:32-0500 Heart rate 86 /min Dr. Shiraz Stephens Work Phone: [facility] Work Phone: 11-04-2021 09:32-0500 Respiratory rate 16 /min Dr. Shiraz Stephens Work Phone: [facility] Work Phone: 11-04-2021 09:32-0500 Systolic blood pressure 138 mm[Hg] Dr. Shiraz Stephens Work Phone: [facility] Work Phone: 10-26-2021 07:10-0500 Body mass index (BMI) [Ratio] 48.9 kg/m2 Dr. Shiraz Stephens Work Phone: [facility] Work Phone: 10-26-2021 07:10-0500 Body temperature 97.2 [degF] Dr. Shiraz Stephens Work Phone: [facility] Work Phone: 10-26-2021 07:10-0500 Body weight 125.[address] Shiraz Stephens Work Phone: [facility] Work Phone: 10-26-2021 07:10-0500 Diastolic blood pressure 82 mm[Hg] Dr. Shiraz Stephens Work Phone: [facility] Work Phone: 10-26-2021 07:10-0500 Heart rate 103 /min Dr. Shiraz Stephens Work Phone: [facility] Work Phone: 10-26-2021 07:10-0500 Respiratory rate 18 /min Dr. Shiraz Stephens Work Phone: [facility] Work Phone: 10-26-2021 07:10-0500 SaO2% (BldA) [Mass fraction] 97 % Dr. Shiraz Stephens Work Phone: [facility] Work Phone: 10-26-2021 07:10-0500 Systolic blood pressure 120 mm[Hg] Dr. Shiraz Stephens Work Phone: [facility] Work Phone: 09-16-2021 14:12-0500 Body weight 130.[address] Shiraz Stephens Work Phone: [facility] Work Phone: 08-24-2021 13:21-0500 Body mass index (BMI) [Ratio] 51.2 kg/m2 Dr. Shiraz Stephens Work Phone: [facility] Work Phone: 08-24-2021 13:21-0500 Body weight 131.[address] Shiraz Stephens Work Phone: [facility] Work Phone: 08-24-2021 13:21-0500 Diastolic blood pressure 88 mm[Hg] Dr. Shiraz Stephens Work Phone: [facility] Work Phone: 08-24-2021 13:21-0500 Heart rate 72 /min Dr. Shiraz Stephens Work Phone: [facility] Work Phone: 08-24-2021 13:21-0500 Respiratory rate 16 /min Dr. Shiraz Stephens Work Phone: [facility] Work Phone: 08-24-2021 13:21-0500 Systolic blood pressure 132 mm[Hg] Dr. Shiraz Stephens Work Phone: [facility] Work Phone: 07-03-2017 07:13-0400 BMI (Body Mass Index) 46.51 kg/m2 [facility] [place] Work Phone: 07-03-2017 07:13-0400 Body Temperature 98.1 [degF] [facility] [place] Work Phone: 07-03-2017 07:13-0400 BP Diastolic 89 mm[Hg] [facility] [place] Work Phone: 07-03-2017 07:13-0400 BP Systolic 137 mm[Hg] [facility] [place] Work Phone: 07-03-2017 07:13-0400 Height 162.56 cm [facility] [place] Work Phone: 07-03-2017 07:13-0400 Pulse (Heart Rate) 87 /min [facility] [place] Work Phone: 07-03-2017 07:13-0400 Respiratory Rate 18 /min [facility] Phone: 07-03-2017 07:13-0400 Weight 122.93 kg [facility] [email or web address] [facility] [email or web address] Work Phone: Encounters Encounter Date Encounter Type Care Provider Facility Start: 09-08-2025 ambulatory Leonora Davalos CRITICAL CARE RN Faci lity:[facility] Start: 06-30-2025 ambulatory Cesar Smith Facility:[facility] Start: 06-30-2025 End: 06-30-2025 ambulatory Leonora Davalos CRITICAL CARE RN Facility:[facility] Start: 06-27-2025 End: 06-27-[address] Carson Hobbs MD [facility] Work Phone: Start: 06-27-2025 End: 06-27-2025 ambulatory Leonora Davalos CRITICAL CARE RN-C Work Phone: [facility] [facility] Start: 05-26-2025 Encounter for genera l adult medical examination without abnormal findings Aad Wheeler [facility] Start: 05-21-2025 End: 05-21-2025 Telephone encounter Marlon Cesar MD Work Phone: Colorectal Surgery Comment on above: Care Coordination (F ollow up) Start: 05-21-2025 ambulatory MARLON CESAR Facility:[facility] Start: 05-21-2025 End: 05-21-2025 Subsequent hospital visit by physician Marlon Cesar MD Work Phone: [facility] Endoscopy - ENDO Comment on above: Diverticulitis [K57. 92] Start: 05-20-2025 End: 05-20-2025 Telephone encounter Eliceo Ambriz APRN.CNP Work Phone: Endocrinology Comment on above: Patient Question Start: 05-14-2025 End: 05-14-2025 ambulatory Marlon Cesar MD Work Phone: [facility] Endoscopy - ENDO Start: 05-09-2025 End: 05-09-2025 ambulatory Leonora Davalos CRITICAL CARE RN-C Work Phone: -Sleep Lab Start: 05-09-2025 End: 05-09-2025 Patient encounter procedure CRITICAL CARE RN Ada Wheeler -[facility] Work Phone: Start: 05-09-2025 End: 05-09-2025 ambulatory Ada Wheeler Facility:[facility] Start: 04-23-2025 End: 04-23-2025 Telephone encounter Martine Blake PA-C Work Phone: Pre Anesthesia Comment on above: Patient Update Start: 04-23-2025 ambulatory ROSY CARLITO Facility:[facility] Start: 04-23-2025 End: 04-23-2025 Subsequent hospital visit by physician [facility] Comment on above: Diverticulitis of in testine, part unspecified, without perforation or abscess without bleeding [K57.92] Diverticulitis [K57. 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; Chronic diastolic CHF (congestive heart failure) ([facility]); Paroxysmal atrial fibrillation ([facility]); MARILIA on CPAP; Dyspnea, unspecified type; Post-operative nausea and vomiting; Nonalcoholic fatty liver disease without nonalcoholic steatohepatitis ([facility]); History of colorectal cancer; Gastroesophageal reflux disease without esophagitis; Postoperative hypothyroidism; History of left breast cancer; Rheumatoid arthritis of other site, unspecified whether rheumatoid factor present ([facility]); Anxiety and depression; Obesity, Class III, BMI >= 40; History of DVT (deep vein thrombosis); [facility] current use of anticoagulant Start: 04-23-2025 End: 04-23-2025 [facility] LEONORA DAVALOS Facility:[facility] Start: 04-22-2025 End: 04-22-2025 Patient encounter procedure CRITICAL CARE RN Ada Wheeler [facility] Work Phone: Start: 04-22-2025 End: 04-22-2025 ambulatory Leonora Davalos CRITICAL CARE RN-C Work Phone: -[facility] Start: 04-21-2025 End: 04-21-2025 Orders Only Elmer Manley MD Work Phone: [facility] Start: 04-11-2025 End: 04-11-2025 Telephone encounter Marlon Cesar MD Work Phone: Colorectal Surgery Comment on above: Schedule Surgery (Ne w OR date to 05/22) Start: 04-11-2025 End: 04-11-2025 ambulatory ROSY ESTEBAN Facility[facility] Start: 04-08-2025 End: 04-11-2025 Telephone encounter Christine Lobo LPN Pre Anesthesia Comment on above: Preparations For Nick kirsten Start: 04-07-2025 End: 04-10-2025 Telephone encounter Eliceo Ambriz APRN.CNP Work Phone: Endocrinology Comment on above: Patient Update Start: 04-07-2025 End: 04-07-2025 Admission to [facility] [place] [id number] Work Phone: Pre Anesthesia Start: 04-07-2025 End: 04-07-2025 Anesthesia consultation [place] [id number] Work Phone: Pre Anesthesia Comment on above: 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, without long-term current use of insulin ([facility]) (Primary Dx); Pure hypercholesterolemia; Essential hypertension; 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; Chronic diastolic CHF [...] and vomiting; Atrial fibrillation, unspecified type (HCC); [facility] (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; Obesity, Class III, BMI >= 40 Start: 04-07-2025 End: 04-07-2025 ambulatory LEONORA DAVALOS Facility:[facility] Start: 04-07-2025 Encounter for other preprocedural examination LEONORA [facility] Start: 03-30-2025 End: 03-30-2025 Home visit Betsy Fuentes RN Work Phone: [facility] Comment on above: IDT CLINICAL TEAM CO LLABORATION Start: 03-28-2025 End: 03-31-2025 Admission to same day surgery center Mateus Lobo RN Colorectal Surgery Comment on above: Diverticulitis Start: 03-28-2025 End: 03-28-2025 Home visit Jane Martinez RN Work Phone: [facility] Comment on above: SN AGENCY DC W VISIT IV Start: 03-28-2025 End: 03-28-2025 Patient encounter procedure Marlon Cesar MD Work Phone: COLORECTAL SURGERY Comment on above: Diverticulitis (Prim nusrat Dx) Start: 03-28-2025 End: 03-31-2025 ambulatory Mateus Lobo RN Colorectal Surgery Start: 03-27-2025 End: 03-27-2025 Home visit Angelina Castellanos RN Work Phone: [facility] Comment on above: HH TRIAGE PHONE CALL Start: 03-26-2025 End: 04-08-2025 Refill Jonathan [facility] on Comment on above: Opened In Error HH TRIAGE PHONE CALL SN IV PRN CARE COORDINATION Home Care (Clarifica tion of IV dosing order Flagyl.) Home Care (Patient u pdate) Start: 03-25-2025 End: 03-25-2025 Home visit Jane Martinez RN Work Phone: [facility] Comment on above: SN IV PRN Start: 03-24-2025 End: 03-24-2025 Home visit Joy Katz RN Work Phone: [facility] Comment on above: SN IV PRN SN IV UP TO 90 MIN Start: 03-23-2025 End: 03-23-2025 Home visit Miracle Schumacher RN Work Phone: [facility] Comment on above: SN IV UP TO 90 [address] SN IV PRN [address] F[employer] Start: 03-22-2025 End: 03-22-2025 Home visit Miracle Schumacher RN Work Phone: [facility] Comment on above: SN IV UP TO 90 MIN Start: 03-21-2025 End: 03-24-2025 Telephone encounter Betsy Fuentes RN Work Phone: [facility] Comment on above: Patient Update (Home care) Refill Request Start: 03-21-2025 End: 03-21-2025 Home visit Betsy Fuentes RN Work Phone: [facility] Comment on above: SN SOC IV Start: 03-20-2025 End: 03-24-2025 ambulatory Elmer Manley MD Work Phone: OR Provider Adult Comment on above: [facility] Start Refill Request Edith Start: 03-20-2025 End: 03-26-2025 Telephone encounter Joon Tranurszula YEE Work Phone: [facility] Comment on above: Home Care (MD wander whitney for [facility]) Home Intermediate Care (Confirmat ion call) [facility] Management (FO R IDC USE ONLY) Start: 03-17-2025 End: 03-20-2025 Evaluation and management of inpatient LEONORA DAVALOS Facility:[facility] Start: 03-17-2025 End: 03-17-2025 Emergency department patient visit LEONORA DAVALOS Facility:[facility] Start: 03-13-2025 End: 03-13-2025 Orders Only Uriah Mueller APRN.SPOOL MAKER Work Phone: [facility] Start: 03-12-2025 End: 03-24-2025 ambulatory Uriah Mueller APRN.SPOOL MAKER Work Phone: Gastroenterology Comment on above: Medication Start: 02-12-2025 End: 02-12-2025 ambulatory ELICEO [facility] Facility[facility] Start: 02-05-2025 End: 02-05-2025 ambulatory Leonora Davalos CRITICAL CARE RN-C Work Phone: [facility] Work Phone: Start: 02-05-2025 End: 02-05-2025 Patient encounter procedure Antonietta Wade CRITICAL CARE RN-C -Ultrasound [facility] Work Phone: Start: 02-05-2025 End: 02-05-2025 Antonietta Wade CRITICAL CARE RN-C -Ultrasound [facility] Work Phone: Start: 02-05-2025 End: 02-05-2025 ambulatory Antonietta Wade Facility:[facility] Start: 01-24-2025 End: 01-24-2025 ambulatory Leonorafatimah StarrDavalos CRITICAL CARE RN-C Work Phone: -Cat Scan [facility] Start: 01-24-2025 End: 01-24-2025 Patient encounter procedure CRITICAL CARE RN Ada Rufener -Cat Scan [facility] Work Phone: Start: 01-24-2025 CRITICAL CARE RN Ada Rufener -Cat Scan [facility] Work Phone: Start: 01-23-2025 End: 01-23-2025 ambulatory Leonora Starrson CRITICAL CARE RN-C Work Phone: [facility] Work Phone: Start: 01-23-2025 End: 01-23-2025 Patient encounter procedure Antonietta Wade CRITICAL CARE RN-C -Laboratory Work Phone: Start: 01-23-2025 End: 01-23-2025 Antonietta Wade CRITICAL CARE RN-C -Laboratory Work Phone: Start: 01-23-2025 End: 01-23-2025 Patient encounter procedure Antonietta Wade CRITICAL CARE RN-C -[facility] Work Phone: Start: 01-23-2025 End: 01-23-2025 Antoniettaher Wade CRITICAL CARE RN-C -[facility] Work Phone: Start: 01-23-2025 End: 01-24-2025 ambulatory Leonora Starrson CRITICAL CARE RN-C Work Phone: [facility] Work Phone: Start: 01-23-2025 End: 01-23-2025 ambulatory Antonietta Wade Facility:[facility] Start: 01-17-2025 End: 01-17-2025 Telemedicine consultation with patient Eliceo Pb MAGDALENO.SPOOL MAKER Work Phone: [facility] Start: 01-17-2025 End: 01-17-2025 ambulatory Eliceo Kupiec [employer]UR[employer] ARE[employer] DIRECTOR.SPOOL MAKER Work Phone: Endocrinology Comment on above: 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, without long-term current use of insulin (HCC) (Primary Dx); Postoperative hypothyroidism; Class 3 severe obesity with serious comorbidity and body mass index (BMI) of 45.0 to 49.9 in adult, unspecified obesity type; Pure hypercholesterolemia; Essential hypertension; 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 Start: 01-16-2025 End: 01-16-2025 ambulatory Leonora Davalos CRITICAL CARE RN-C Work Phone: [facility] Work Phone: Start: 01-16-2025 End: 01-16-2025 Patient encounter procedure CRITICAL CARE RN Ada Wheeler -Sleep Lab Work Phone: Start: 01-16-2025 End: 01-16-2025 IJEOMA Wheeler -Sleep Lab Work Phone: Start: 01-16-2025 End: 01-16-2025 ambulatory Ada Wheeler Facility:[facility] Start: 01-10-2025 End: 01-10-2025 Patient encounter procedure IJEOMA Wheeler [facility] Pulmonary Medicine Work Phone: Start: 01-10-2025 End: 01-10-2025 IJEOMA Wheeler [facility] Pulmona ry Medicine Work Phone: Start: 01-10-2025 End: 01-10-2025 ambulatory Leonora Davalos CRITICAL CARE RN Facility:[facility] Start: 01-10-2025 ambulatory Yaya Gray Facility:[facility] Start: 01-10-2025 Non-patient / Non-visit Dr. Yaya fuller DO -[facility] Start: 01-10-2025 Dr. Yaya Gray DO -[facility] Start: 01-07-2025 End: 01-07-2025 Patient encounter procedure Marissa Camp CRITICAL CARE RN-C -Pulmonary Services/Neurology Work Phone: Start: 01-07-2025 End: 01-07-2025 Marissa Camp CRITICAL CARE RN-C -Pulmonary Services/Neurology Work Phone: Start: 01-07-2025 End: 01-07-2025 ambulatory Marissa Camp CRITICAL CARE RN Facility:[facility] Start: 12-30-2024 End: 12-31-2024 Refill Eliceo Ambriz [employer] DIRECTOR.SPOOL MAKER Work Phone: Endocrinology Comment on above: Refill Request Start: 12-17-2024 ambulatory Leonora Davalos CRITICAL CARE RN Faci lity:[facility] Start: 12-17-2024 Non-patient / Non-visit [facility]. Ruchi [facility] Start: 12-17-2024 Dr. Carson Hobbs MD [facility] Start: 12-17-2024 End: 12-17-2024 ambulatory Leonora Davalos CRITICAL CARE RN-C Work Phone: [facility] Work Phone: Start: 12-17-2024 End: 12-17-2024 Patient encounter procedure Mehrdad Ruth CRITICAL CARE RN-C -Cardiovascu lar Services Work Phone: Start: 12-17-2024 End: 12-17-2024 Mehrdad Ruth CRITICAL CARE RN-C -Cardiovascular Services Work Phone: Start: 12-17-2024 End: 12-17-2024 ambulatory Mehrdad Ruth CRITICAL CARE RN Facility:[facility] Start: 12-12-2024 End: 12-12-2024 Orders Only Eliceo Ambriz [employer] DIRECTOR.SPOOL MAKER Work Phone: Endocrinology Comment on above: 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, without long-term current use of insulin (HCC) (Primary Dx) Start: 12-07-2024 End: 12-07-2024 ambulatory Leonora Davalos CRITICAL CARE RN-C Work Phone: [facility] Work Phone: Start: 12-07-2024 End: 12-07-2024 Sunita JAY -Radiology, [facility] Work Phone: Start: 12-07-2024 End: 12-07-2024 ambulatory Leonora Davalos CRITICAL CARE RN Facility:[facility] Start: 12-03-2024 ambulatory Yaya Gray Facility:[facility] Start: 12-03-2024 End: 12-03-2024 Marissa Camp CRITICAL CARE RN-C -Pulmonary Services/Neurology Work Phone: Start: 12-03-2024 End: 12-03-2024 ambulatory Marissa Camp CRITICAL CARE RN Facility:[facility] Start: 11-13-2024 End: 12-27-2024 [facility] [employer] DIRECTOR.SPOOL MAKER Work Phone: Endocrinology Start: 11-13-2024 End: 11-13-2024 ambulatory Leonora Davalos CRITICAL CARE RN-C Work Phone: [facility] Work Phone: Start: 11-13-2024 End: 11-13-2024 Patient encounter procedure Mehrdad Ruth CRITICAL CARE RN-C -Laboratory Work Phone: Start: 11-13-2024 End: 11-13-2024 Mehrdad Ruth CRITICAL CARE RN-C -Laboratory Work Phone: Start: 11-13-2024 End: 11-13-2024 Patient encounter procedure Mehrdad Ruth CRITICAL CARE RN-C -[facility] Work Phone: Start: 11-13-2024 End: 11-13-2024 Mehrdad Ruth CRITICAL CARE RN-C -[facility] Work Phone: Start: 11-13-2024 End: 11-13-2024 ambulatory Leonora Davalos NP Facility:[facility] Start: 11-12-2024 End: 11-13-2024 ambulatory [facility] Facility[facility] Start: 11-08-2024 End: 11-08-2024 ambulatory [facility] [employer] DIRECTOR.SPOOL MAKER Work Phone: Endocrinology Comment on above: 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, without long-term current use of insulin (HCC) (Primary Dx); Postoperative hypothyroidism; Class 3 severe obesity with serious comorbidity and body mass index (BMI) of 50.0 to 59.9 in adult, unspecified obesity type (HCC); Pure hypercholesterolemia; Essential hypertension; 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 Start: 11-08-2024 End: 11-08-2024 Telemedicine consultation with patient Eliceo Ambriz SHARLA.SPOOL MAKER Work Phone: Endocrinology Start: 11-04-2024 End: 11-05-2024 Telephone encounter Eliceo Ambriz SHARLA.SPOOL MAKER Work Phone: Endocrinology Comment on above: Patient Question Start: 10-28-2024 End: 01-08-2025 Telephone encounter Arlynvianney Saldivar DO Work Phone: [facility] Comment on above: New Patient Start: 10-21-2024 End: 10-22-2024 Telephone encounter Eliceo Villaltayeyo MAGDALENO.SPOOL MAKER Work Phone: Endocrinology Comment on above: Medication [...] Start: 09-10-2024 End: 09-10-2024 ambulatory ROYER FERGUSON Facility:[facility] Start: 09-10-2024 End: 09-10-2024 Patient encounter procedure Royer Ferguson PA-C Work Phone: Orthopaedic [facility] Comment on above: Bilateral primary os teoarthritis of knee (Primary Dx) Start: 09-05-2024 End: 09-05-[address] Cayla Jolley MD -Outpatient Breast Imaging Work Phone: Start: 09-05-2024 End: 09-05-2024 Dr. Cayla Jolley MD -Outpatient Breast Imaging Work Phone: Start: 09-05-2024 End: 09-05-2024 ambulatory Leonora Davalos CRITICAL CARE RN Facility:[facility] Start: 09-03-2024 End: 09-03-2024 ambulatory LEONORA DAVALOS Facility:[facility] Start: 09-03-2024 End: 09-03-2024 Patient encounter procedure Royer Ferguson PA-C Work Phone: [facility] Comment on above: Bilateral primary os teoarthritis of knee (Primary Dx) Start: 09-02-2024 Encounter for gyneco logical examination (general) (routine) with abnormal findings Cayla Jolley [facility] Start: 09-02-2024 End: 09-02-2024 Patient encounter procedure Marissa Camp NP-C -[facility] Work Phone: Start: 09-02-2024 End: 09-02-2024 Marissa Camp NP-C -[facility] Work Phone: Start: 09-02-2024 End: 09-02-2024 ambulatory Leonora Davalos CRITICAL CARE RN Facility:[facility] Start: 09-02-2024 End: 09-02-[address] Cayla Jolley MD -[facility] Work Phone: Start: 09-02-2024 End: 09-02-[address] Cayla Jolley MD [facility] Start: 09-02-2024 End: 09-02-2024 Dr. Cayla Jolley MD -[facility] Work Phone: Start: 09-02-2024 End: 09-02-2024 ambulatory Leonora Anoop CRITICAL CARE RN Facility:[facility] Start: 09-02-2024 End: 09-02-2024 ambulatory Leonora Anoop CRITICAL CARE RN Facility:[facility] Start: 08-27-2024 End: 08-27-2024 ambulatory LEONORA DAVALOS Facility:[facility] Start: 08-27-2024 End: 08-27-2024 Patient encounter procedure Royer Ferguson PA-C Work Phone: Orthopaedic Surgery [facility] Comment on above: Primary osteoarthrit is of left knee (Primary Dx) Start: 08-07-2024 End: 08-07-2024 Patient encounter procedure Royer Ferguson PA-C Work Phone: Orthopaedic Surgery [facility] Comment on above: Primary osteoarthrit is of left knee (Primary Dx); BMI 50.0-59.9, adult (HCC); Elevated hemoglobin A1c Start: 08-07-2024 End: 08-07-2024 ambulatory LEONORA DAVALOS Facility:[facility] Start: 08-07-2024 End: 08-07-2024 Subsequent hospital visit by physician Angela [facility] 1 Xray [facility] Comment on above: Pain [R52] Start: 05-22-2024 [...] Vaughn Decker MD Work Phone: Diabetic Education [facility] Comment on above: Refill Request Start: 05-08-2024 [...] Work Phone: General Surgery Comment on above: Occupational Therapy Manager - O ther Start: 04-10-2024 Telephone [...] 03-22-2024 Subsequent hospital visit by physician [facility] Comment on above: Metabolic dysfunctio n-associated steatohepatitis (MASH) [K75.81] Start: 03-21-2024 Telephone encounter Uriah campo [employer] DIRECTOR.SPOOL MAKER Work Phone: Gastroenterology Comment on above: Results Start: 03-19-2024 End: 03-19-2024 Subsequent hospital visit by physician [facility] Work Phone: [facility] Comment on above: Left lower quadrant abdominal pain [R10.32] Left lower quadrant pain [R10.32] Start: 03-18-2024 Telephone encounter Rosy sheridan MD Work Phone: Gastroenterology Comment on above: Follow Up Tests Resu lts (Fibroscan---->needs f/u OV in 1 month) Start: 03-11-2024 End: 03-11-2024 Orders Only Uriah Mueller APRN.SPOOL MAKER Work Phone: Gastroenterology Comment on above: Metabolic dysfunctio n-associated steatohepatitis (MASH) (Primary Dx) Metabolic dysfunctio n-associated steatohepatitis (MASH) (Primary Dx); Diarrhea, unspecified type; Left lower quadrant abdominal pain Start: 03-04-2024 End: 05-20-2024 Telephone encounter Rosy Esteban MD Work Phone: Gastroenterology Comment on above: Appointment (Needs O V with CRITICAL CARE RN or PA) Start: 12-27-2023 ambulatory Eliceo orona APRN.SPOOL MAKER Work Phone: Endocrinology Comment on above: New meds Start: 12-15-2023 Telephone encounter Eliceo maldonado APRN.SERVANDO Work Phone: Endocrinology Comment on above: PA--Ozempic 0.25mg/0 .5mg (2mg/3ml) Start: 12-15-2023 End: 12-15-2023 Patient encounter procedure Eliceo Ambriz APRN.SPOOL MAKER Work Phone: Endocrinology Comment on above: 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, without long-term current use of insulin (HCC) (Primary Dx); Postoperative hypothyroidism; Class 3 severe obesity with serious comorbidity and body mass index (BMI) of 50.0 to 59.9 in adult, unspecified obesity type (HCC); Pure hypercholesterolemia; Essential hypertension; 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 Start: 12-13-2023 Telephone encounter Vaughn Angela i, MD Work Phone: Endocrinology Comment on above: Patient Update Start: 11-15-2023 End: 11-15-2023 Subsequent hospital visit by physician Mammo/Bone Density [facility] Comment on above: Other specified diso rders of bone density and structure, multiple sites [M85.89] Start: 11-07-2023 Telephone encounter Vaughn Angela i, MD Work Phone: Endocrinology Comment on above: Patient Question Start: 08-28-2023 End: 08-28-2023 ambulatory CRITICAL CARE RN-C Leonora Davalos CRITICAL CARE RN Work Phone: [facility] Work Phone: Start: 08-28-2023 End: 08-28-2023 Patient encounter procedure CRITICAL CARE RN-Yeyo Davalos CRITICAL CARE RN Work Phone: [facility]-Laboratory, Specimen Work Phone: Start: 08-28-2023 End: 08-28-2023 Patient encounter procedure CRITICAL CARE RN-C Leonora Davalos CRITICAL CARE RN Work Phone: [facility] Work Phone: Start: 08-10-2023 End: 08-10-2023 ambulatory CRITICAL CARE RN-C Leonora Davalos CRITICAL CARE RN Work Phone: [facility] Work Phone: Start: 08-10-2023 End: 08-10-2023 Patient encounter procedure CRITICAL CARE RN-C Leonora Davalos CRITICAL CARE RN Work Phone: [facility]-Outpatient Breast Imaging Work Phone: Start: 07-31-2023 Refill Vaughn Decker MD Work Phone: Endocrinology Comment on above: Refill Request Start: 07-07-2023 End: 07-07-2023 Patient encounter procedure CRITICAL CARE RN-C Leonora Davalos CRITICAL CARE RN Work Phone: [facility] Work Phone: Start: 06-28-2023 End: 06-28-2023 Patient encounter procedure CRITICAL CARE RN-C Leonora Davalos CRITICAL CARE RN Work Phone: [facility]-Pulmonary Medicine [facility] Work Phone: Start: 06-15-2023 Refill Vaughn Decker MD Work Phone: Endocrinology Comment on above: Refill Request Start: 06-09-2023 Refill Vaughn Decker MD Work Phone: Endocrinology Start: 05-25-2023 Non-patient / Non-visit CRITICAL CARE RN-C Urban Davalos CRITICAL CARE RN Work Phone: [facility] Work Phone: Start: 05-22-2023 Non-patient / Non-visit CRITICAL CARE RN-C Urban Davalos CRITICAL CARE RN Work Phone: [facility] Start: 05-22-2023 End: 05-22-2023 Patient encounter procedure CRITICAL CARE RN-Yeyo Davalos CRITICAL CARE RN [facility] Start: 05-03-2023 End: 05-03-2023 Patient encounter procedure Vaughn Decker MD Work Phone: Endocrinology Comment on above: Poorly controlled ty pe 2 diabetes mellitus (HCC) (Primary Dx); Acquired hypothyroidism Start: 05-01-2023 Refill Rosy Esteban MD Work Phone: Gastroenterology Comment on above: Refill Request (Omep razole) Start: 04-18-2023 Non-patient / Non-visit CRITICAL CARE RN-C Urban Davalos CRITICAL CARE RN Work Phone: [facility] Start: 04-17-2023 End: 04-17-2023 ambulatory CRITICAL CARE RN-Yeyo Davalos CRITICAL CARE RN Work Phone: [facility] Work Phone: Start: 04-17-2023 End: 04-17-2023 Patient encounter procedure CRITICAL CARE RN-Yeyo Davalos CRITICAL CARE RN [facility] Work [facility] Start: 04-17-2023 End: 04-17-2023 Patient encounter procedure CRITICAL CARE RN-Yeyo Davalos CRITICAL CARE RN Work Phone: [facility] Work Phone: Start: 03-27-2023 End: 03-27-2023 Patient encounter procedure VANESSA Davalos CRITICAL CARE RN [facility] Work Phone: Start: 01-12-2023 Refill Rosy Esteban MD Work Phone: Gastroenterology Comment on above: Refill Request (Omep razole) Start: 12-26-2022 End: 12-26-2022 Patient encounter procedure CRITICAL CARE RNErwin Davalos CRITICAL CARE RN [facility] Work Phone: Start: 2022 End: [address] Shiraz Stephens Work Phone: [facility] Work Phone: Start: 2022 End: [address] [facility] Start: 2022 End: [address] Shiraz Stephens Work Phone: [facility] Start: 11-01-2022 End: 11-01-2022 Subsequent hospital visit by physician Rosy Esteban MD Work Phone: Ambulatory Surgery Comment on above: Diverticulitis [K57. 92] Start: 09-16-2022 End: 09-16-[address] Shiraz Stephens Work Phone: [facility] Work Phone: Start: 09-16-2022 End: 09-16-[address] Shiraz Stephens Work Phone: [facility]-Laboratory Start: 09-16-2022 End: 09-16-[address] Shiraz Stephens Work Phone: [facility] Gastroenterology Start: 09-13-2022 Telephone encounter Vaughn Angela [...] patient visit Dr. Shiraz Stephens Work Phone: [facility]-Emergency Department Start: 08-27-2022 ambulatory Vaughn Decker MD Work Phone: Endocrinology Comment on above: Update Start: 08-27-2022 E-mail encounter fro m caregiver Vaughn Decker MD Work Phone: [facility] Start: 08-26-2022 Telephone encounter Vaughn Angela i, MD Work Phone: Endocrinology Comment on above: Patient Update Start: 08-18-2022 End: 08-18-[address] Shiraz Stephens Work Phone: [facility] Work Phone: Start: 08-18-2022 End: 08-18-[address] Shiraz Stephens Work Phone: [facility]-Cat Scan, [facility] Start: 08-08-2022 End: 08-08-[address] Shiraz Stephens Work Phone: [facility] Work Phone: Start: 08-08-2022 End: 08-08-[address] Shiraz Stephens Work Phone: [facility]-Outpatient Breast Imaging Start: 07-26-2022 End: 07-26-[address] Shiraz Stephens Work Phone: [facility]-Laboratory, Specimen Start: 07-26-2022 End: 07-26-[address] Shiraz Stephens Work Phone: [facility] Start: 07-12-2022 ambulatory Rosy Esteban MD Work Phone: [facility] Start: 07-12-2022 Patient encounter procedure Montserrat Esteban MD Work Phone: Gastroenterology Comment on above: Coming up appointmen t Start: 06-22-2022 End: 06-22-[address] Shiraz Stephens Work Phone: [facility] Start: 06-21-2022 ambulatory [facility] Endocrinol ogy Comment on above: Low Blood Glucose Start: 06-21-2022 E-mail encounter nav hawley caregiver [facility] Provider [facility] Start: 06-09-2022 Telephone encounter Rosy sheridan MD Work Phone: Gastroenterology Comment on above: Follow Up Tests Resu lts (Labs, stools and US---->needs labs in 3 months, US in 6 months) Start: 06-02-2022 End: 06-02-[address] Shiraz Stephens Work Phone: [facility] Start: 05-30-2022 End: 05-30-2022 Get [...] 03-11-2022 Subsequent hospital visit by physician [facility] Work Phone: Cardiology Lab Comment on above: DEE (dyspnea on exer tion) [R06.09] Start: 02-24-2022 Telephone encounter Aly Mosley DO Work Phone: Cardiology Comment on above: Appointment ([facility] Patient Assistance) Start: 02-21-2022 Telephone encounter Tanya Ruano APRN.CNP Work Phone: Cardiology Comment on above: Patient Update Start: 02-14-2022 End: 02-14-2022 Patient encounter procedure Tanya Ruano APRN.CNP Work Phone: Cardiology Comment on above: DEE (dyspnea on exer tion) (Primary Dx); Essential hypertension; Paroxysmal atrial fibrillation (HCC); 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 Shiraz Stephens Work Phone: [facility] Internal Medicine Start: 01-12-2022 End: 01-12-2022 Patient [...] encounter procedure Dr. Shiraz Stephens Work Phone: [facility]-Laboratory, [facility] Start: 11-04-2021 End: 11-04-[address] Shiraz Stephens Work Phone: [facility] Start: 10-26-2021 End: 10-26-[address] Shiraz Stephens Work Phone: [facility] Endocrinology Start: 09-16-2021 End: 10-11-[address] Shiraz Stephens Work Phone: [facility]-Diabetic Clinic Start: 09-02-[address] Mounika Stephens Work Phone: [facility]-Laboratory Start: 08-24-2021 End: 08-24-[address] Shiraz Stephens Work Phone: [facility] Procedures Date Procedure Procedure Detail Performing [...] HCV Quant by PCR testing - HCVPCR #[id number] Non Reactive: < 0.8 Equivocal: >/= 0.8 [...] Colonoscopy Marlon Cesar MD Work Phone: Start: 04-23-2025 Antibody screen LEONORA DAVALOS Comment on above: Order Comment: Specimen Type: BLOOD SPEC IMEN Ordering Facility: [facility] Address: [facility] [place] [address] Performed By: #### 1 [id number], [id number] #### [facility] CLIA [id number] [address] [place] [id number] [place] Start: 02-05-2025 Ultrasound elastography of liver Leonora Eliseo pires CRITICAL CARE RN-C Work Phone: Start: 01-24-2025 CT of chest without contrast Leonora Novoa cristela CRITICAL CARE RN-C Work Phone: Start: 01-23-2025 Blood count smear mcrscp w/mnl difrntl wbc count Leonora Davalos CRITICAL CARE RN-C Work Phone: Start: 01-23-2025 Calculation of international normalized ratio Leonora Anoop CRITICAL CARE RN-C Work Phone: Start: 01-23-2025 Chocolate RAST Leonora Anoop CRITICAL CARE RN-C Work Phone: Start: 01-23-2025 Food RAST Leonora Davalos CRITICAL CARE RN-C Work Phone: Start: 01-23-2025 Mean corpuscular hemoglobin concentration determination Leonorafatimah StarrDavalos CRITICAL CARE RN-C Work Phone: Start: 01-23-2025 Nucleated red blood cell count procedure Leonora Davalos CRITICAL CARE RN-C Work Phone: Start: 01-23-2025 Platelet mean volume determination Leonora Davalos CRITICAL CARE RN-C Work Phone: Start: 01-23-2025 Shrimp RAST Leonora Davalos CRITICAL CARE RN-C Work Phone: Start: 12-17-2024 Cardiovascular stress test using pharmacologic stress agent Leonora Davalos CRITICAL CARE RN-C Work Phone: Start: 12-07-2024 X-ray of chest, PA and lateral views Leonora Davalos CRITICAL CARE RN-C Work Phone: Start: 11-13-2024 Blood count smear mcrscp w/mnl difrntl wbc count Leonora Davalos CRITICAL CARE RN-C Work Phone: Start: 11-13-2024 Mean corpuscular hemoglobin concentration determination Leonora Davalos CRITICAL CARE RN-C Work Phone: Start: 11-13-2024 Nucleated red blood cell count procedure Leonora Davalos CRITICAL CARE RN-C Work Phone: Start: 11-13-2024 Platelet mean volume determination Leonora Davalos CRITICAL CARE RN-C Work Phone: Start: 09-26-2024 Urine microscopy: red cells Leonora dodson CRITICAL CARE RN-C Work Phone: Start: 09-26-2024 Urnls dip stick/tablet reagent auto microscopy Leonora Davalos CRITICAL CARE RN-C Work Phone: Start: 09-26-2024 Albumin/Globulin ratio Leonora Davalos CRITICAL CARE RN-C Work Phone: Start: 09-26-2024 Anion gap measurement Leonora Davalos CRITICAL CARE RN-C Work Phone: Start: 09-26-2024 Blood count smear mcrscp w/mnl difrntl wbc count Leonora Davalos CRITICAL CARE RN-C Work Phone: Start: 09-26-2024 BUN/Creatinine ratio Leonora Davalos CRITICAL CARE RN-C Work Phone: Start: 09-26-2024 Estimated creatinine clearance Leonora felderon CRITICAL CARE RN-C Work Phone: Start: 09-26-2024 Mean corpuscular hemoglobin concentration determination Leonora Davalos CRITICAL CARE RN-C Work Phone: Start: 09-26-2024 Measurement of renal function Leonora Lopez rdson CRITICAL CARE RN-C Work Phone: Start: 09-26-2024 Nucleated red blood cell count procedure Leonora Davalos CRITICAL CARE RN-C Work Phone: Start: 09-26-2024 Platelet mean volume determination Leonora Davalos CRITICAL CARE RN-C Work Phone: Start: 09-26-2024 CT of abdomen and pelvis without contrast Leonora Davalos CRITICAL CARE RN-C Work Phone: Start: 09-26-2024 Urine culture Leonora Davalos CRITICAL CARE RN-C Work Phone: Start: 09-10-2024 Arthrocentesis aspir&/inj major jt/bursa w/o us Royer Ferguson PA-C Work Phone: Start: 09-05-2024 Bilateral mammography Leonora Davalos CRITICAL CARE RN-C Work Phone: Start: 09-03-2024 Arthrocentesis aspir&/inj major jt/bursa w/o us Royer Gundersonins PA-C Work Phone: Start: 09-02-2024 X-ray of chest, PA and lateral views Leonora Davalos CRITICAL CARE RN-C Work Phone: Start: 08-27-2024 Arthrocentesis aspir&/inj major jt/bursa w/o us Royer Ferguson PA-C Work Phone: Start: 08-07-2024 Radiologic exam knee complete 4/more views Royer Ferguson PA-C Work Phone: Start: 04-17-2024 Gluc bld gluc mntr dev cleared fda spec home use [facility] Provider Start: 04-17-2024 Hemoglobin A1c/Hemoglobin.total in Blood Vaughn Decker MD Work Phone: Start: 03-22-2024 End: 03-22-2024 Us abdominal real time w/image limited Uriah Mueller APRN.SPOOL MAKER Work Phone: Start: 03-19-2024 Ct abdomen & pelvis w/contrast material Uriah Mueller APRN.SPOOL MAKER Work Phone: Start: 03-11-2024 End: 03-11-2024 Liver elastography w/o imag w/i&r Uriah Mueller APRN.SPOOL MAKER Work Phone: Start: 08-10-2023 Screening mammography CRITICAL CARE RN-C Leonora Davalos CRITICAL CARE RN Work Phone: Start: 05-22-2023 Cardiovascular stress test using pharmacologic stress agent VANESSA Davalos NP Work Phone: Start: 05-03-2023 Hemoglobin A1c/Hemoglobin.total in Blood Vaughn Decker MD Work Phone: Start: 11-01-2022 Esophagogastroduodenoscopy transoral diagnostic Rosy Esteban MD Work Phone: Start: 11-01-2022 Level iv surg pathology gross&microscopic exam Rosy Esteban MD Work Phone: Start: 11-01-2022 Colonoscopy flx dx w/collj spec when pfrmd Rosy Esteban MD Work Phone: Start: 11-01-2022 Colonoscopy Rosy Esteban MD Work Phone: Start: 08-27-2022 Computed tomography of abdomen and pelvis with intravenous contrast Dr. Shiraz Stephens Work Phone: Start: 08-18-[address] Shiraz Stephens Work Phone: Start: 08-08-[address] Shiraz Stephens Work Phone: Start: 03-11-2022 Echo tthrc r-t 2d w/wom-mode compl spec&colr d Tanya Ruano RESTAURANT AREA DIRECTOR.SERVANDO Work Phone: Start: 04-28-2020 Colonoscopy Rosy Esteban MD Work Phone: Start: 04-14-2020 Mammography Rosy Esteban MD Work Phone: Start: 02-02-2019 Follow-up visit Start: 06-29-2017 End: 06-29-2017 MAGALI Ruth CRITICAL CARE RN Work Phone: Start: 06-29-2017 End: 06-29-2017 Follow up Appt 3 weeks Mehrdad Ruth NP Work Phone: Start: 06-29-2017 End: 06-29-2017 Natriuretic peptide B [Mass/volume] in Blood Mehrdad Hill Faraz CRITICAL CARE RN Work Phone: Start: 06-14-2017 End: 06-15-2017 Ecg routine ecg w/least 12 lds w/i&r Sunita Montgomery PA-C Work Phone: Start: 06-14-2017 End: 06-15-2017 Referral to roller machine operator Sunita Montgomery PA-C Work Phone: Start: 06-12-2017 End: 06-19-2017 *MISC - Miscellaneous Lab Test #1 Bubba jaspal Camp SPOOL MAKER Work Phone: Start: 06-12-2017 End: 06-19-2017 DMB Marissa Camp SPOOL MAKER Work Phone: Start: 06-12-2017 End: 06-19-2017 Follow Up Appt 3 months Marissa Camp SPOOL MAKER Work Phone: Start: 06-12-2017 End: 06-19-2017 Pulmonary Function Test - complete Marissa Camp SPOOL MAKER Work Phone: Start: 06-12-2017 End: 06-19-2017 Pulmonary stress test/simple Marissa Camp SPOOL MAKER Work Phone: Enteric Bacteriology Dr. Isaias Stephens Work Phone: History of cholecystectomy Hx of cholecys tectomy Rosy Esteban MD Work Phone: History of cholecystectomy Hx of cholecys tectomy Rosy Esteban MD Work Phone: Lactoferrin measurement Dr. Shiraz Stephens Work Phone: Plan of Treatment Date Care Activity Detail Author Start: 05-21-2026 Screening for malignant neoplasm of colon [facility] Start: 11-12-2025 Hepatitis B screening Urine Albumin:Creatinine Ratio [facility] Start: 11-12-2025 Hepatitis B surface antibody level LDL Cholesterol [facility] Start: 08-14-2025 Hemoglobin A1c measurement HbA1C [facility] Start: 06-30-2025 Registered Referred Registered Referred -ED Referred Work Phone: Start: 06-30-2025 [facility] Start: 06-30-2025 End: 06-30-2025 Patient encounter procedure Departed Clinical -Laboratory Work Phone: Start: 06-27-2025 End: 06-27-2025 Evaluation of diagnostic study results [facility] Start: 05-22-2025 End: 05-22-2025 Admission to same day surgery center 05/22/2025 12:05 PM EDT - 05/22/2025 4:45 PM EDT Surgery [facility] Operating Room [id number] [place] [address] [place] [id number] [place] [address] LAPAROSCOPIC HAND ASSISTED COLECTOMY [facility] Operating Room Comment on above: LAPAROSCOPIC HAND ASSISTED COLECTOMY Start: 05-22-2025 End: 05-22-2025 Laps colectomy tot w/o prctect w/ileost/ileopxts LAPAROSCOPIC HAND ASSISTED COLECTOMY Diverticulitis 05/22/2025 12:05 PM EDT [facility] Start: 05-22-2025 Subsequent hospital visit by physician 05/22/2025 12:05 PM EDT Hospital Encounter [facility] Operating Room [address] [place] [address] Marlon Cesar [place] [id number] [place] [address] Diverticulitis [K57.92] [facility] Operating Room Comment on above: Diverticulitis [K57.92] Start: 05-21-2025 End: 05-21-2025 Patient encounter procedure [facility] Endoscopy - ENDO Comment on above: colonoscopy Start: 05-15-2025 Hemoglobin A1c measurement HbA1C [facility] Start: 05-13-2025 End: 05-13-2025 Anesthesia consultation 05/13/2025 9:40 AM EDT PAT Pre Anesthesia [address] [place] [address] 3, Pacc Looney [address] [place], [place] [id number] COLONSCOPY 05/21 PACC ON 04/07 Pre Anesthesia Comment on above: COLONSCOPY 05/21 PACC ON 04/07 Start: 05-12-2025 Influenza vaccination [facility] Start: 05-01-2025 End: 05-01-2025 Admission to same day surgery center 05/01/2025 7:30 AM EDT - 05/01/2025 12:05 PM EDT Surgery [facility] Operating Room [address] [place] [address] Marlon Cesar [place] [id number] [place] [address] LAPAROSCOPIC HAND ASSISTED COLECTOMY [facility] Operating Room Comment on above: LAPAROSCOPIC HAND ASSISTED COLECTOMY Start: 05-01-2025 End: 05-01-2025 Laps colectomy tot w/o prctect w/ileost/ileopxts LAPAROSCOPIC HAND ASSISTED COLECTOMY Diverticulitis 05/01/2025 7:30 AM EDT [facility] Start: 05-01-2025 Subsequent hospital visit by physician 05/01/2025 7:30 AM EDT Hospital Encounter [facility] Operating Room [address] [place] [address] [place]lon Cesar [place] [id number] [place], [place] [address] Diverticulitis [K57.92] [facility] Operating Room Comment on above: Diverticulitis [K57.92] Start: 04-30-2025 End: 04-30-2025 Patient encounter procedure 04/30/2025 12:30 PM EDT Appointment [facility] Endoscopy - ENDO [address] [place] [address] Marlon Csear [place] [id number] [place] [address] colonoscopy [facility] Endoscopy - ENDO Comment on above: colonoscopy Start: 04-25-2025 End: 04-25-2025 Patient encounter procedure 04/25/2025 9:30 AM EDT Office Visit Gastroenterology [address] [address] Yao Barroso MD [place] [id number] Recent hospitalization, acute diverticulitis Gastroenterology Comment on above: Recent hospitalization, acute diverticul itis Start: 04-23-2025 End: 04-23-2025 Patient encounter procedure [facility] Comment on above: Diverticulitis [K57.92] Start: 04-23-2025 End: 04-23-2025 Anesthesia consultation 04/23/2025 9:40 AM EDT PAT Pre Anesthesia [address] [place] [address] 3, Pacc Looney [address] [place] [address] pre op Pre Anesthesia Comment on above: pre op Start: 04-21-2025 End: 07-21-2025 CBC W Auto Differential panel - Blood COMPLETE BLOOD COUNT AND DIFFERENTIAL Lab Routine Diverticulitis Expected: 04/21/2025, Expires: 07/21/2025 [facility] Work Phone: Comment on above: Expected: 04/21/2025, Expires: Start: 04-21-2025 End: 07-21-2025 Comprehensive metabolic 2000 panel - Serum or Plasma COMPREHENSIVE METABOLIC PANEL Lab Routine Diverticulitis Expected: 04/21/2025, Expires: 07/21/2025 [facility] Comment on above: Expected: 04/21/2025, Expires: Start: 04-21-2025 End: 07-21-2025 TYPE + SCREEN TYPE + SCREEN Blood Bank Routine Diverticulitis Expected: 04/21/2025, Expires: 07/21/2025 [facility] Comment on above: Expected: 04/21/2025, Expires: Start: 04-17-2025 BP Controlled (<130/80) BP Controlled (<130/80) [facility] in Start: 04-17-2025 Hemoglobin A1c measurement Diabetes: Hemoglobin A1C [facility] Start: 04-15-2025 End: 05-08-2026 CT Abdomen and Pelvis W contrast IV CT ABD/PEL W IVCON Radiology Routine Diverticulitis Nausea and vomiting, unspecified vomiting type Diarrhea, unspecified type Expected: 04/15/2025 (Approximate), Expires: 05/08/2026 [facility] Comment on above: Expected: 04/15/2025 (Approximate), Expi res: 05/08/2026 Start: 04-08-2025 End: 07-08-2025 Amylase [Enzymatic activity/volume] in Serum or Plasma AMYLASE Lab Routine Diverticulitis Nausea and vomiting, unspecified vomiting type Diarrhea, unspecified type Expected: 04/08/2025, Expires: 07/08/2025 [facility] Comment on above: Expected: 04/08/2025, Expires: Start: 04-08-2025 End: 07-08-2025 C reactive protein [Mass/volume] in Serum or Plasma C-REACTIVE PROTEIN Lab Routine Diverticulitis Nausea and vomiting, unspecified vomiting type Diarrhea, unspecified type Expected: 04/08/2025, Expires: 07/08/2025 [facility] Comment on above: Expected: 04/08/2025, Expires: Start: 04-08-2025 End: 07-08-2025 CBC W Auto Differential panel - Blood COMPLETE BLOOD COUNT AND DIFFERENTIAL Lab Routine Diverticulitis Nausea and vomiting, unspecified vomiting type Diarrhea, unspecified type Expected: 04/08/2025, Expires: 07/08/2025 [facility] Work Phone: Comment on above: Expected: 04/08/2025, Expires: Start: 04-08-2025 End: 07-08-2025 Comprehensive metabolic 2000 panel - Serum or Plasma COMPREHENSIVE METABOLIC PANEL Lab Routine Diverticulitis Nausea and vomiting, unspecified vomiting type Diarrhea, unspecified type Expected: 04/08/2025, Expires: 07/08/2025 [facility] Comment on above: Expected: 04/08/2025, Expires: Start: 04-08-2025 End: 07-08-2025 Lipase [Enzymatic activity/volume] in Serum or Plasma LIPASE Lab Routine Diverticulitis Nausea and vomiting, unspecified vomiting type Diarrhea, unspecified type Expected: 04/08/2025, Expires: 07/08/2025 [facility] Comment on above: Expected: 04/08/2025, Expires: Start: 04-07-2025 End: 07-07-2025 Bacteria identified in Urine by Culture [facility] Work Phone: Comment on above: Expected: 04/07/2025, Expires: Start: 04-07-2025 End: 04-07-2025 Anesthesia consultation 04/07/2025 7:40 AM EDT PAT Pre Anesthesia [address] [place] [address] 1, Pacc [address] [place] [address] DOS 04/30 REFUSED [facility]V Pre Anesthesia Comment on above: DOS 04/30 REFUSED [facility]V Start: 03-28-2025 End: 03-28-2025 Patient encounter procedure 03/28/2025 10:15 AM EDT Office Visit [facility] [address] [place], [place] [phone] [place] [address] [place], [place] [id number] New Pt: Recurrent Diverticulitis, ref by Dr. Rosy Esteban [facility] Comment on above: New Pt: Recurrent Diverticulitis, ref by Dr. Rosy Esteban Start: 02-12-2025 End: 05-14-2025 Hemoglobin A1c in Blood HEMOGLOBIN A1C Lab Routine Type 2 diabetes mellitus with diabetic polyneuropathy, without long-term current use of insulin (HCC) Expected: 02/12/2025 (Approximate), Expires: 05/14/2025 [facility] Work Phone: Comment on above: Expected: 02/12/2025 (Approximate), Expi res: 05/14/2025 Start: 02-04-2025 End: 02-04-2025 Patient encounter procedure 02/04/2025 12:40 PM EDT Office Visit [facility] [address] [place] [address] Arlyn Saldivar DO [address] [place] [address] [facility] Start: 01-24-2025 Elastase.pancreatic [Presence] in Stool [facility] Start: 01-23-2025 Blood ammonia measurement [facility] Start: 01-23-2025 C reactive protein [Mass/volume] in Serum or Plasma [facility] Start: 01-23-2025 CBC W Auto Differential panel - Blood [facility] Start: 01-23-2025 Comprehensive metabolic 2000 panel - Serum or Plasma [facility] Start: 01-23-2025 Prothrombin time [facility] Start: 01-23-2025 [facility] Start: 01-17-2025 End: 01-17-2025 Follow-up encounter 01/17/2025 7:30 AM EDT [facility] Endocrinology [address] [address] Eliceo Ambriz, RESTAURANT AREA DIRECTOR.SPOOL MAKER [address] [id number] Diabetes follow up Endocrinology Comment on above: Diabetes follow up Start: 01-10-2025 Patient referral [facility] Work Phone: Start: 12-14-2024 BP Controlled (<130/80) BP Controlled (<130/80) [facility] Start: 12-03-2024 Measurement of respiratory function [facility] Start: 11-28-2024 Walking distance 6 minutes [facility] Start: 11-27-2024 BP Controlled (<130/80) BP Controlled (<130/80) [facility] Start: 11-11-2024 End: 11-11-2024 ambulatory 11/11/2024 2:15 PM EST [facility] [address] [phone] Eliceo Ambriz, SHARLA.SPOOL MAKER [address] [phone] diabetes Endocrinology Comment on above: diabetes Start: 11-09-2024 End: 02-08-2025 Comprehensive metabolic 2000 panel - Serum or Plasma COMPREHENSIVE METABOLIC PANEL Lab Routine Type 2 diabetes mellitus with diabetic polyneuropathy, without long-term current use of insulin (HCC) Expected: 11/09/2024 (Approximate), Expires: 02/08/2025 [facility] Work Phone: Comment on above: Expected: 11/09/2024 (Approximate), Expi res: 02/08/2025 Start: 11-09-2024 End: 02-08-2025 Hemoglobin A1c in Blood HEMOGLOBIN A1C Lab Routine Type 2 diabetes mellitus with diabetic polyneuropathy, without long-term current use of insulin (HCC) Expected: 11/09/2024 (Approximate), Expires: 02/08/2025 [facility] Comment on above: Expected: 11/09/2024 (Approximate), Expi res: 02/08/2025 Start: 11-09-2024 End: 02-08-2025 Lipid 1996 panel - Serum or Plasma LIPID PANEL BASIC Lab Routine Type 2 diabetes mellitus with diabetic polyneuropathy, without long-term current use of insulin (HCC) Expected: 11/09/2024 (Approximate), Expires: 02/08/2025 [facility] Comment on above: Expected: 11/09/2024 (Approximate), Expi res: 02/08/2025 Start: 11-09-2024 End: 02-08-2025 Microalbumin/Creatinine [Mass Ratio] in Urine ALBUMIN/CREATININE RATIO, URINE Lab Routine Type 2 diabetes mellitus with diabetic polyneuropathy, without long-term current use of insulin (HCC) Expected: 11/09/2024 (Approximate), Expires: 02/08/2025 [facility] Comment on above: Expected: 11/09/2024 (Approximate), Expi res: 02/08/2025 Start: 11-09-2024 End: 02-08-2025 Thyrotropin [Units/volume] in Serum or Plasma THYROID STIMULATING HORMONE Lab Routine Postoperative hypothyroidism Expected: 11/09/2024 (Approximate), Expires: 02/08/2025 [facility] Comment on above: Expected: 11/09/2024 (Approximate), Expi res: 02/08/2025 Start: 11-09-2024 End: 02-08-2025 Thyroxine (T4) free [Mass/volume] in Serum or Plasma T4 FREE/FREE THYROXINE Lab Routine Postoperative hypothyroidism Expected: 11/09/2024 (Approximate), Expires: 02/08/2025 [facility] Comment on above: Expected: 11/09/2024 (Approximate), Expi res: 02/08/2025 Start: 11-08-2024 End: 11-08-2024 ambulatory 11/08/2024 7:30 AM EST [facility] [address] [address] Eliceo Ambriz APRN.SPOOL MAKER [address] [phone] diabetes Endocrinology Comment on above: diabetes Start: 10-23-2024 End: 10-23-2024 Patient encounter procedure 10/23/2024 4:20 PM EST Office Visit Endocrinology [address] [phone] Vaughn Decker MD [address] [place], [place] [phone] f/u Endocrinology Comment on above: f/u Start: 10-18-2024 Hemoglobin A1c measurement HbA1C [facility] Start: 09-26-2024 [facility] Start: 09-11-2024 Advance Directive Discussion Advance Directive Discussion [facility] Start: 09-11-2024 Medicare Advantage Annual Wellness Visit Medicare Advantage Annual Wellness Visit [facility] Start: 09-10-2024 End: 09-10-2024 Patient encounter procedure 09/10/2024 9:00 AM EST Office Visit Orthopaedic [facility] [address] [place] [address] Royer Ferguson PA-C [address] [place], [place] [phone] Euflexa injections knees [facility]opa[facility] Comment on above: Euflexa injections knees Start: 09-03-2024 End: 09-03-2024 Patient encounter procedure 09/03/2024 8:00 AM EST Office Visit Orthopaedic Surgery [facility] [address] [place] [address] Royer Ferguson PA-C [address] [place] [address] Euflexa injections knees Orthopaedic Surgery [facility] Comment on above: Euflexa injections knees Start: 05-22-2024 End: 05-22-2024 Nursing evaluation of patient and report 05/22/2024 9:00 AM EDT Nurse Visit [facility] [address] [facility] [place] [address] Kevin Garcia, JONI [address] [address] 2 wk f/u Endocrinology Comment on above: 2 wk f/u Start: 05-17-2024 Hemoglobin A1c measurement HbA1C [facility] Start: 05-12-2024 COVID-19 Vaccine ( season) COVID-19 Vaccine ( season) [facility] Start: 05-12-2024 Influenza vaccination [facility] Start: 05-03-2024 Hepatitis B surface antibody level LDL Cholesterol [facility] Start: 05-02-2024 End: 05-02-2024 Nursing evaluation of patient and report 05/02/2024 1:00 PM EDT Nurse Visit Diabetic Education [facility] [address] [address] Kevin Garcia, RN [address] [address] CGM placement Diabetic Education [facility] Comment on above: CGM placement Start: 04-17-2024 End: 04-17-2024 Patient encounter procedure 04/17/2024 4:40 PM EDT Office Visit Endocrinology [address] [address] Vaughn Decker MD [address] [place], [place] [phone] 6 month follow up Endocrinology Comment on above: 6 month follow up Start: 04-17-2024 End: 07-17-2024 Thyrotropin [Units/volume] in Serum or Plasma THYROID STIMULATING HORMONE Lab Routine Acquired hypothyroidism Expected: 04/17/2024, Expires: 07/17/2024 [facility] Comment on above: Expected: 04/17/2024, Expires: Start: 04-17-2024 End: 07-17-2024 Thyroxine (T4) free [Mass/volume] in Serum or Plasma T4 FREE/FREE THYROXINE Lab Routine Acquired hypothyroidism Expected: 04/17/2024, Expires: 07/17/2024 [facility] Work Phone: Comment on above: Expected: 04/17/2024, Expires: Start: 04-10-2024 End: 04-10-2024 Patient encounter procedure 04/10/2024 8:40 AM EDT Office Visit Gastroenterology [address] [place] [address] [place] [address] [place] [address] F/U OV Gastroenterology Comment on above: F/U OV Start: 03-22-2024 End: 03-22-2024 Patient encounter procedure 03/22/2024 9:00 AM EDT Appointment [facility] [address] [place] [id number] Metabolic dysfunction-associated steatohepatitis (MASH) [K75.81] [facility] Comment on above: Metabolic dysfunction-associated steatoh epatitis (MASH) [K75.81] Start: 03-11-2024 End: 06-10-2024 [id number] [Mass/volume] in Serum or Plasma ALPHA FETOPROTEIN Lab Routine Metabolic dysfunction-associated steatohepatitis (MASH) Expected: 03/11/2024, Expires: 06/10/2024 [facility] Comment on above: Expected: 03/11/2024, Expires: Start: 03-11-2024 End: 06-10-2024 CBC W Auto Differential panel - Blood COMPLETE BLOOD COUNT AND DIFFERENTIAL Lab Routine Metabolic dysfunction-associated steatohepatitis (MASH) Expected: 03/11/2024, Expires: 06/10/2024 [facility] Comment on above: Expected: 03/11/2024, Expires: 4 Start: 03-11-2024 End: 06-10-2024 Comprehensive metabolic 2000 panel - Serum or Plasma COMPREHENSIVE METABOLIC PANEL Lab Routine Metabolic dysfunction-associated steatohepatitis (MASH) Expected: 03/11/2024, Expires: 06/10/2024 [facility] Comment on above: Expected: 03/11/2024, Expires: Start: 03-11-2024 End: 06-10-2024 CREATININE BLD CREATININE BLD Lab Routine Metabolic dysfunction-associated steatohepatitis (MASH) Expected: 03/11/2024, Expires: 06/10/2024 [facility] Comment on above: Expected: 03/11/2024, Expires: 4 Start: 03-11-2024 End: 06-10-2024 PT panel - Platelet poor plasma by Coagulation assay PROTHROMBIN TIME Lab Routine Metabolic dysfunction-associated steatohepatitis (MASH) Expected: 03/11/2024, Expires: 06/10/2024 [facility] Comment on above: Expected: 03/11/2024, Expires: Start: 11-09-2023 End: 02-08-2024 Hemoglobin A1c in Blood HGB A1C Lab Routine Poorly controlled type 2 diabetes mellitus (HCC) Expected: 11/09/2023, Expires: 02/08/2024 [facility] Work Phone: Comment on above: Expected: 11/09/2023, Expires: 4 Start: 11-01-2023 Colonoscopy COLONOSCOPY [facility] Start: 11-01-2023 COLORECTAL CANCER SCREENING COLORECTAL CANCER SCREENING [facility] Start: 11-01-2023 Screening for malignant neoplasm of colon [facility] Start: 09-11-2023 Advance Directive Discussion Advance Directive Discussion [facility] Start: 09-11-2023 Behavioral Health Screening Behavioral Health Screening [facility] Start: 09-11-2023 Depression Assessment Depression Assessment [facility] Start: 09-06-2023 BP CONTROLLED (<130/80) BP CONTROLLED (<130/80) [facility] Start: 08-28-2023 Liquid based cervical cytology screening [facility] Start: 08-03-2023 Hemoglobin A1c measurement HbA1C [facility] Start: 08-03-2023 Hemoglobin A1c/Hemoglobin.total in Blood HBA1C [facility] Start: 05-25-2023 BP CONTROLLED (<130/80) BP CONTROLLED (<130/80) [facility] Start: 05-17-2023 Hepatitis B surface antibody level LDL CHOLESTEROL [facility] Start: 05-12-2023 Influenza vaccination [facility] Start: 05-03-2023 End: 07-03-2023 Thyroxine (T4) free [Mass/volume] in Serum or Plasma [facility] Work Phone: Comment on above: Expected: 05/03/2023, Expires: Start: 02-22-2023 Hepatitis B surface antibody level LDL CHOLESTEROL [facility] Start: 02-14-2023 BP CONTROLLED (<130/80) BP CONTROLLED (<130/80) [facility] Start: 12-07-2022 End: 07-09-2023 Us abdominal real time w/image limited US ABD RT UPPER QUADRANT Radiology Routine Fatty metamorphosis of liver Elevated liver enzymes Expected: 12/07/2022 (Approximate), Expires: 07/09/2023 [facility] Work Phone: Comment on above: Expected: 12/07/2022 (Approximate), Expi res: 07/09/2023 Start: 11-02-2022 BP CONTROLLED (<130/80) BP CONTROLLED (<130/80) [facility] Start: 09-11-2022 ADVANCE DIRECTIVE DISCUSSION ADVANCE DIRECTIVE DISCUSSION [facility] Start: 09-11-2022 DEPRESSION ASSESSMENT DEPRESSION ASSESSMENT [facility] Start: 09-08-2022 End: 11-08-2022 Hepatic function 2000 panel - Serum or Plasma HEPATIC FUNCTION PNL Lab Routine Fatty metamorphosis of liver Elevated liver enzymes Expected: 09/08/2022 (Approximate), Expires: 11/08/2022 [facility] Work Phone: Comment on above: Expected: 09/08/2022 (Approximate), Expi res: 11/08/2022 Start: 08-24-2022 Hemoglobin A1c/Hemoglobin.total in Blood HBA1C [facility] Start: 05-12-2022 Influenza vaccination [facility] Start: 02-14-2022 End: 04-16-2022 LIPID PANEL BASIC LIPID PANEL BASIC Lab Routine 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 Expected: 02/14/2022, Expires: 04/16/2022 [facility] Work Phone: Comment on above: Expected: 02/14/2022, Expires: 2 Start: 01-05-2022 End: 03-07-2022 Alpha 1 antitrypsin [Mass/volume] in Serum or Plasma [id number] Lab Routine Elevated liver enzymes Fatty metamorphosis of liver Expected: 01/05/2022, Expires: 03/07/2022 [facility] Work Phone: Comment on above: Expected: 01/05/2022, Expires: 2 Start: 01-05-2022 End: 03-07-2022 FERRITIN BLD FERRITIN BLD Lab Routine Elevated liver enzymes Fatty metamorphosis of liver Expected: 01/05/2022, Expires: 03/07/2022 [facility] Work Phone: Comment on above: Expected: 01/05/2022, Expires: 2 Start: 01-05-2022 End: 03-07-2022 Gamma glutamyl transferase [Enzymatic activity/volume] in Serum or Plasma GGT BLD Lab Routine Elevated liver enzymes Fatty metamorphosis of liver Expected: 01/05/2022, Expires: 03/07/2022 [facility] Work Phone: Comment on above: Expected: 01/05/2022, Expires: 2 Start: 01-05-2022 End: 03-07-2022 Hepatitis B virus core IgM Ab [Presence] in Serum HEP B CORE AB IGM Lab Routine Elevated liver enzymes Fatty metamorphosis of liver Expected: 01/05/2022, Expires: 03/07/2022 [facility] Work Phone: Comment on above: Expected: 01/05/2022, Expires: 2 Start: 01-05-2022 End: 03-07-2022 Hepatitis B virus surface Ab [Presence] in Serum HEP B SURF AB QUAL Lab Routine Elevated liver enzymes Fatty metamorphosis of liver Expected: 01/05/2022, Expires: 03/07/2022 [facility] Work Phone: Comment on above: Expected: 01/05/2022, Expires: 2 Start: 01-05-2022 End: 03-07-2022 Hepatitis B virus surface Ab [Presence] in Serum by Immunoassay HEP B SURF AG SCRN Lab Routine Elevated liver enzymes Fatty metamorphosis of liver Expected: 01/05/2022, Expires: 03/07/2022 [facility] Work Phone: Comment on above: Expected: 01/05/2022, Expires: 2 Start: 01-05-2022 End: 03-07-2022 Hepatitis C virus Ab [Presence] in Serum HEP C AB IA W/CONF SCRN Lab Routine Elevated liver enzymes Fatty metamorphosis of liver Expected: 01/05/2022, Expires: 03/07/2022 [facility] Work Phone: Comment on above: Expected: 01/05/2022, Expires: 2 Start: 01-05-2022 End: 03-07-2022 IGA BLD IGA BLD Lab Routine Elevated liver enzymes Fatty metamorphosis of liver Expected: 01/05/2022, Expires: 03/07/2022 [facility] Work Phone: Comment on above: Expected: 01/05/2022, Expires: 2 Start: 01-05-2022 End: 03-07-2022 IRON + TIBC IRON + TIBC Lab Routine Elevated liver enzymes Fatty metamorphosis of liver Expected: 01/05/2022, Expires: 03/07/2022 [facility] Work Phone: Comment on above: Expected: 01/05/2022, Expires: 2 Start: 01-05-2022 End: 03-07-2022 Mitochondria Ab [Presence] in Serum by Immunofluorescence MITOCHONDRIAL AB PNL SCRN Lab Routine Elevated liver enzymes Fatty metamorphosis of liver Expected: 01/05/2022, Expires: 03/07/2022 [facility] Work Phone: Comment on above: Expected: 01/05/2022, Expires: 2 Start: 01-05-2022 End: 03-07-2022 SMOOTH MUSCLE AB PNL SCRN SMOOTH MUSCLE AB PNL SCRN Lab Routine Elevated liver enzymes Fatty metamorphosis of liver Expected: 01/05/2022, Expires: 03/07/2022 [facility] Work Phone: Comment on above: Expected: 01/05/2022, Expires: 2 Start: 01-05-2022 End: 03-07-2022 T4/FTI/T4U T4/FTI/T4U Lab Routine Elevated liver enzymes Fatty metamorphosis of liver Expected: 01/05/2022, Expires: 03/07/2022 [facility] Work Phone: Comment on above: Expected: 01/05/2022, Expires: 2 Start: 01-05-2022 End: 03-07-2022 Thyrotropin [Units/volume] in Serum or Plasma TSH BLD Lab Routine Elevated liver enzymes Fatty metamorphosis of liver Expected: 01/05/2022, Expires: 03/07/2022 [facility] Work Phone: Comment on above: Expected: 01/05/2022, Expires: 2 Start: 01-05-2022 End: 03-07-2022 Tissue transglutaminase IgA Ab [Units/volume] in Serum TRANSGLUTAMINASE IGA Lab Routine Elevated liver enzymes Fatty metamorphosis of liver Expected: 01/05/2022, Expires: 03/07/2022 [facility] Work Phone: Comment on above: Expected: 01/05/2022, Expires: 2 Start: 01-05-2022 End: 03-07-2022 Tissue transglutaminase IgG Ab [Units/volume] in Serum TRANSGLUTAMINASE IGG Lab Routine Elevated liver enzymes Fatty metamorphosis of liver Expected: 01/05/2022, Expires: 03/07/2022 [facility] Work Phone: Comment on above: Expected: 01/05/2022, Expires: 2 Start: 09-11-2021 ADVANCE DIRECTIVE DISCUSSION ADVANCE DIRECTIVE DISCUSSION [facility] Start: 09-11-2021 DEPRESSION ASSESSMENT DEPRESSION ASSESSMENT [facility] Start: 08-24-2021 Patient referral [facility] Work Phone: Start: 04-28-2021 Colonoscopy COLONOSCOPY [facility] Start: 04-28-2021 COLORECTAL CANCER SCREENING COLORECTAL CANCER SCREENING [facility] Start: 04-14-2021 Hepatitis B surface antibody level LDL CHOLESTEROL [facility] Start: 04-14-2021 Mammography [facility] Start: 04-14-2021 Screening for malignant neoplasm of breast Mammogram Screening [facility] Start: 11-16-2020 BONE DENSITY BONE DENSITY [facility] Start: 11-16-2020 Bone Density Screening Bone Density Screening [facility] Start: 11-16-2020 PNEUMOVAX AGE 65 AND OVER WITH 5YR LOOKBACK (#1) PNEUMOVAX AGE 65 AND OVER WITH 5YR LOOKBACK (#1) [facility] Start: 11-16-2020 Screening for osteoporosis Bone Density Screening [facility] Start: 09-12-2020 Hemoglobin A1c/Hemoglobin.total in Blood HBA1C [facility] Start: 09-07-2017 End: 09-07-2017 Appointment Appointment [facility] Work Phone: Start: 07-20-2017 End: 07-20-2017 Appointment Appointment [facility] [place] Work Phone: Start: 07-18-2017 End: 07-18-2017 Appointment Appointment [facility] [place] Work Phone: Start: 07-17-2017 End: 07-17-2017 Appointment Appointment [facility] [place] Work Phone: Start: 07-03-2017 End: 07-03-2017 [facility] [place] Work Phone: Start: 07-03-2017 End: 07-03-2017 Follow Up Appt 1 month Follow Up Appt 1 month [email or web address] Work Phone: Start: 07-03-2017 End: 07-03-2017 WhyWeight WhyWeight [facility] Nutrition [facility], [address], [place], [address] [facility] Work Phone: Start: 06-29-2017 End: 06-29-2017 BNP *Brain Natriuretic Peptide BNP [facility] Work Phone: Start: 06-29-2017 End: 06-29-2017 DJN DJN [facility] Work Phone: Start: 06-29-2017 End: 06-29-2017 Follow up Appt 3 weeks Follow up Appt 3 weeks [facility] Work Phone: Start: 06-14-2017 End: 06-14-2017 Endocrinology Referral Endocrinology Referral Sherine (DEBROA) IJEOMA Craft, [address], [address], [facility], [place], [address] [facility] Work Phone: Start: 06-12-2017 End: 06-19-2017 *MISC - Miscellaneous Lab Test #1 *MISC - Miscellaneous Lab Test #1 [facility] Work Phone: Start: 06-12-2017 End: 06-19-2017 DMB DMB [facility] [place] Work Phone: Start: 06-12-2017 End: 06-19-2017 Follow Up Appt 3 months Follow Up Appt 3 months [facility] Work Phone: Start: 06-12-2017 End: 06-19-2017 Pulmonary Function Test - complete Pulmonary Function Test - complete [facility] Work Phone: Start: 06-12-2017 End: 06-19-2017 Pulmonary stress test/simple Pulmonary stress testing; simple (eg, 6-minute walk) [facility] Work Phone: Start: 2015 Hepatitis B Vaccine (1 of 3 - Risk 3-dose series) Hepatitis B Vaccine (1 of 3 - Risk 3-dose series) [facility] Start: 2015 RSV Immunization for Adults (1 - Risk 60-74 years 1-dose series) RSV Immunization for Adults (1 - Risk 60-74 years 1-dose series) [facility] Start: 2015 RSV Vaccine (1 - 1-dose 60+ series) RSV Vaccine (1 - 1-dose 60+ series) [facility] Start: 2015 RSV Vaccine (1 - Risk 60-74 years 1-dose series) RSV Vaccine (1 - Risk 60-74 years 1-dose series) [facility] Start: 06-10-2011 FECAL OCCULT BLOOD FECAL OCCULT BLOOD [facility] Start: 06-10-2011 Screening for malignant neoplasm of colon Fecal Occult Blood [facility] Start: 11-16-2005 Pneumococcal Vaccine: 50+ Years (1 of 1 - PCV) Pneumococcal Vaccine: 50+ Years (1 of 1 - PCV) [facility] Start: 11-16-2005 SHINGRIX VACCINE (1 of 2) SHINGRIX VACCINE (1 of 2) [facility] Start: 11-16-2005 Zoster Vaccines (1 of 2) Zoster Vaccines (1 of 2) [facility] Start: 11-16-2000 COLOGUARD (FIT-DNA) COLOGUARD (FIT-DNA) [facility] Start: 11-16-[address] COLONOGRAPHY [facility] Start: 11-16-2000 Screening for malignant neoplasm of colon [facility] Start: 11-16-2000 SIGMOIDOSCOPY SIGMOIDOSCOPY [facility] Start: 12-23-1999 Screening for malignant neoplasm of cervix Cervical Cancer Screening [facility] Start: 1995 Screening for malignant neoplasm of breast Mammogram [facility] Start: 11-16-1974 DTaP/Tdap/Td Vaccines (1 - Tdap) DTaP/Tdap/Td Vaccines (1 - Tdap) [facility] Start: 11-16-1974 Pneumococcal Vaccine: 50+ (1 of 2 - PCV) Pneumococcal Vaccine: 50+ (1 of 2 - PCV) [facility] Start: 11-16-1974 SHINGRIX VACCINE (1 of 2) SHINGRIX VACCINE (1 of 2) [facility] Start: 11-16-1974 Urine microalbumin profile [facility] Start: 11-16-1973 ANNUAL PCP TEAM CHRONIC DISEASE VISIT ANNUAL PCP TEAM CHRONIC DISEASE VISIT [facility] Start: 11-16-1973 Anxiety Screening Anxiety Screening [facility] Start: 11-16-1973 BP CONTROLLED (<130/80) BP CONTROLLED (<130/80) [facility] Start: 11-16-1973 Depression Screening Depression Screening [facility] Start: 11-16-1973 Diabetes: Estimated Glomerular Filtration Rate for Kidney [facility] Diabetes: Estimated Glomerular Filtration Rate for Kidney Health [facility] Start: 11-16-1973 Diabetes: Urine Albumin-Creatinine Ratio for Kidney [facility] Diabetes: Urine Albumin-Creatinine Ratio for Kidney Health [facility] Start: 11-16-1973 HEPATITIS C SCREENING HEPATITIS C SCREENING [facility] Start: 11-16-1973 Hepatitis C screening Hepatitis C Screening [facility] Start: 1967 Adult depression screening assessment DEPRESSION SCREENING [facility] Start: 1967 COVID-19 VACCINE (1) COVID-19 VACCINE (1) [facility] Start: 11-16-1965 3 comp foot exam completed DIABETIC FOOT EXAM [facility] Start: 11-16-1965 Diabetic foot examination [facility] Start: 11-16-1965 Glaucoma screening [facility] Start: 11-16-1965 Hepatitis B screening URINE ALBUMIN:CREATININE RATIO [facility] Start: 11-16-1965 Hepatitis C antibody, confirmatory test DILATED RETINAL EXAM [facility] Start: 11-16-1965 Preventive dental service Diabetes: Dental Exam [facility] Start: 11-16-1961 Pneumococcal Vaccine: 65+ (1 - PCV) Pneumococcal Vaccine: 65+ (1 - PCV) [facility] Start: 11-16-1961 Pneumococcal Vaccine: 65+ (1 of 2 - PCV) Pneumococcal Vaccine: 65+ (1 of 2 - PCV) [facility] Start: 11-16-1961 PNEUMOCOCCAL: 65+ (1 - PCV) PNEUMOCOCCAL: 65+ (1 - PCV) [facility] Start: 11-16-1960 COVID-19 VACCINE (#1) COVID-19 VACCINE (#1) [facility] Start: 05-19-1956 COVID-19 VACCINE (#1) COVID-19 VACCINE (#1) [facility] Start: 1955 Creatinine measurement Creatinine Level [facility] Start: 1955 Echocardiography Echocardiogram [facility] Start: 1955 Lipid panel Lipid Panel [facility] Start: 1955 Potassium measurement Potassium Level [facility] Start: 1955 Screening for malignant neoplasm of colon [facility] Alanine aminotransfe rase [Enzymatic activity/volume] in Serum or Plasma [facility] Albumin [Mass/volume ] in Serum or Plasma [facility] Alkaline phosphatase [Enzymatic activity/volume] in Serum or Plasma [facility] Anion gap in Serum o r Plasma [facility] Beef IgE Ab [Units/volume] in Serum [facility] Bilirubin, total measurement [facility] Blood chemistry [facility] BUN/Creatinine ratio [facility] Calcium [Mass/volume ] in Serum or Plasma [facility] Carbon dioxide, tota l [Moles/volume] in Central venous blood [facility] Chocolate IgE Ab [Units/volume] in Serum [facility] Clostridioides diffi cile toxin genes [Presence] in Stool by WINSTON with probe detection C. DIFFICILE PCR Lab Routine Diarrhea, unspecified type Ordered: 03/11/2024 [facility] Work Phone: Comment on above: Ordered: 03/11/2024 Codfish IgE Ab [Units/volume] in Serum [facility] End: 08-30-2023 COLONOSCOPY DIAGNOSTIC COLONOSCOPY DIAGNOSTIC Endoscopy Routine Diverticulitis 1 Occurrences starting 08/30/2022 until 08/30/2023 [facility] Work Phone: Comment on above: 1 Occurrences starting 08/30/2022 until 08/30/2023 [place] IgE Ab [Units/volume] in Serum [facility] Cow milk IgE Ab [Units/volume] in Serum [facility] Creatinine [Mass/vol ume] in Serum or Plasma [facility] End: 04-10-2025 CT Abdomen and Pelvis W contrast IV CT ABD/PEL W IVCON Radiology Routine Left lower quadrant abdominal pain 1 Occurrences starting 03/11/2024 until 04/10/2025 [facility] Comment on above: 1 Occurrences starting 03/11/2024 until 04/10/2025 CT Abdomen and Pelvi s W contrast IV CT ABD/PEL W IVCON Radiology Routine Diverticulitis Nausea and vomiting, unspecified vomiting type Diarrhea, unspecified type 04/23/2025 3:18 PM EDT [facility] Work Phone: CT Chest WO contrast [facility] End: 02-14-2023 Echocardiography ECHO Cardiology Routine DEE (dyspnea on exertion) 1 Occurrences starting 02/14/2022 until 02/14/2023 [facility] Work Phone: Comment on above: 1 Occurrences starting 02/14/2022 until 02/14/2023 Elastase.pancreatic [Presence] in Stool [facility] ENTERIC BACTERIAL PA [place] BY PCR ENTERIC BACTERIAL PANEL BY PCR Lab Routine Diarrhea, unspecified type Ordered: 03/11/2024 [facility] Comment on above: Ordered: 03/11/2024 Enteric Bacteriology Enteric Bacteriology [facility] Work Phone: Erythrocyte mean corpuscular volume determination [facility] End: 03-28-2026 Flexible sigmoidoscopy study COLONOSCOPY DIAGNOSTIC Endoscopy Routine Diverticulitis 1 Occurrences starting 03/28/2025 until 03/28/2026 [facility] Comment on above: 1 Occurrences starting 03/28/2025 until 03/28/2026 Food RAST [facility] Gastrointestinal pathogens panel - Stool by [place] with probe detection [facility] Work Phone: Giardia lamblia+Cryptosporidium sp Ag [Presence] in Stool by Immunoassay CRYPTOSPORIDIUM AND GIARDIA ANTIGENS BY EIA Microbiology Routine Diarrhea, unspecified type Ordered: 03/11/2024 [facility] Comment on above: Ordered: 03/11/2024 Glucose [Mass/volume ] in Serum or Plasma [facility] Hematocrit [Volume Fraction] of Blood [facility] Hemoglobin [Mass/vol ume] in Blood [facility] Hepatitis B virus co re Ab [Presence] in Serum [facility] INR in Blood by Coagulation assay [facility] Leukocytes [#/volume ] in Blood [facility] Liver stiffness by US.transient elastography [facility] Liver ultrasound attenuation by transient elastography DDI VIBRATION CONTROLLED TRANSIENT ELASTOGRAPHY (VCTE) Endoscopy Routine Metabolic dysfunction-associated steatohepatitis (MASH) Ordered: 03/11/2024 [facility] Comment on above: Ordered: 03/11/2024 Mean corpuscular hemoglobin concentration determination [facility] Mean corpuscular hemoglobin determination [facility] Measurement of renal function [facility] Neutrophil count [facility] Neutrophil percent differential count [facility] NM Heart Views W str ess and W radionuclide IV [facility] Path report.final Dx Spec [facility] Patient Education [facility] Work Phone: Patient referral [facility] Work Phone: Peanut IgE Ab [Units/volume] in Serum [facility] Platelets [#/volume] in Blood [facility] Pork IgE Ab [Units/volume] in Serum [facility] Potassium measurement [facility] Protein measurement [facility] Radionuclide imaging of perfusion of myocardium under exercise stress [facility] Red blood cell count [facility] Red cell distributio n width determination [facility] [place] IgE Ab [Units/volume] in Serum [facility] Serum chloride measurement [facility] Shrimp IgE Ab [Units/volume] in Serum [facility] Sodium measurement [facility] Soybean IgE Ab [Units/volume] in Serum [facility] Total protein measurement [facility] Tuna IgE Ab [Units/volume] in Serum [facility] Urea nitrogen [Mass/volume] in Serum or Plasma [facility] End: 04-10-2025 US Abdomen RUQ US ABD RIGHT UPPER QUADRANT Radiology Routine Metabolic dysfunction-associated steatohepatitis (MASH) 1 Occurrences starting 03/11/2024 until 04/10/2025 [facility] Comment on above: 1 Occurrences starting 03/11/2024 until 04/10/2025 End: 05-30-2022 Us abdominal real time w/image limited [facility] Work Phone: Comment on above: 1 Occurrences starting 05/30/2022 until 05/30/2022 US Breast limited [facility] Heart [facility] Heart [facility] Walking distance 6 minutes [facility] Wheat IgE Ab [Units/volume] in Serum [facility] Whole Egg IgE Ab [Units/volume] in Serum [facility] c Payers Date Payer Category Payer Medicare HMO MMO MEDICARE ADV ANTAGE Member Subscriber Plan / Payer (Effective 2024-Present) Name: Alexandra Bella Relation to Subscriber: Self Name: Alexandra Bella Payer ID: Not on file Type: Medicare HMO Address: [place] [id number] 2024 Self-pay [id number] 2021 Medicare MMO MEDICARE MMO MEDADVANTAGE HMO [id number] 2021-Present [phone] [place], [place] [address] [facility] [id number] 2021 Medicare MMO MEDICARE MMO MEDADVANTAGE HMO [id number] 2021-Present [phone] [place] [id number] [facility] [id number] 2021 Medicare (Managed Care) MMO IRWIN DVANTAGE HMO [id number] 2021 Unknown [id number] 2012 Government (not [facility] care or Medicaid) [facility] [id number] 2012 Unknown [facility] GENER[facility] [id number] 2012-Present [phone] [address] [place] [address] [id number] Medicare [id number] Unknown [id number] Unknown [id number] 9.2.462 Unknown [id number] 2.16.840.1.175534.3.57 9.2.462 Unknown [id number] 2.16.840.1.445451.3.57 9.2.462 Unknown [id number] 2.16.840.1.056705.3.57 9.2.462 Unknown [id number] 2.16.840.1.166241.3.57 9.2.462 Unknown [id number] 2.16.840.1.779274.3.57 9.2.462 Unknown [id number] 2.16.840.1.508696.3.57 9.2.462 Unknown [id number] 2.16.840.1.513417.3.57 9.2.462 Unknown [id number] 2.16840.1.166885.3.57 9.2.462 Unknown [id number] 2.16840.1.006520.3.57 9.2.462 Unknown [id number] 2.840.1.840972.3.57 9.2.462 Unknown [id number] 2.840.1.436825.3.57 9.2.462 Unknown [id number] 2.840.1.685997.3.57 9.2.462 Unknown [id number] 2.840.1.704097.3.57 9.2.462 Unknown [id number] 2.840.1.077849.3.57 9.2.462 Unknown [id number] 2.16840.1.305229.3.57 9.2.462 Unknown [id number] 2.16840.1.203073.3.57 9.2.462 Unknown [id number] 2.840.1.419158.3.57 9.2.462 Unknown [id number] 2.840.1.413250.3.57 9.2.462 Unknown [id number] 2.16840.1.070415.3.57 9.2.462 Unknown [id number] 2.16.840.1.853039.3.57 9.2.462 Unknown [id number] 2.16.840.1.131528.3.57 9.2.462 Unknown [id number] 2.16840.1.497702.3.57 9.2.462 Unknown [id number] 2.16.840.1.024525.3.57 9.2.462 Unknown [id number] 2.16.840.1.717971.3.57 9.2.462 Unknown [id number] [id number] 9.2.462 Social History Date Type Detail Facility Start: 11-29-2021 End: 08-28-2023 Tobacco smoking status MDIS Unknown if ever smoked [facility] Start: 1955 Sex Assigned At Female C [facility] Start: 05-25-2022 End: 01-23-2025 Tobacco smoking status MDIS Ex-smoker [facility] Work Phone: Start: 09-11-1974 End: 09-11-1989 History of tobacco use Current smoker [facility] Work Phone: Start: 11-02-2021 End: 04-23-2025 Alcohol intake Current non-drinker of alcohol (finding) [facility] Start: 11-02-2021 End: 02-23-2023 Alcohol intake [facility] Start: 11-26-2020 History SDOH Alcohol Comment occasional, rare [facility] Start: 12-20-2021 End: 05-30-2022 Exposure to SARS-CoV-2 (event) Not sure [facility] Start: 09-11-1974 End: 09-11-1989 History of tobacco use Cigarette Smoker [facility] Start: 05-25-2022 End: 08-07-2024 Tobacco use and exposure Smokeless tobacco non-user [facility] Start: 06-02-2017 Rare [facility] Start: 06-02-2017 None [facility] Start: 06-02-2017 Spouse/ Signif icant Other [facility] Start: 02-22-2023 End: 02-23-2023 Tobacco use panel [facility] Start: 08-12-2012 PHQ2 Score 2 [facility] Start: 03-29-2020 Gender identity Identifies as female gender (finding) [facility] Start: 04-11-2022 End: 11-27-2024 Sex Female (finding) [facility] Start: 1955 Sex assigned at Not on file [facility] Has the electric, gas, oil, or water company threatened to shut off services in your home in past 12Mo No [facility] (I/We) worried whether (my/our) food would run out before (I/we) got money to buy more. Never true [facility] NEGATED: Highlighted rowStart: DIOGO History of tobacco use Passive smoker [facility] Medical Equipment Procedure Code Equipment Code Equipment [...] 28 gauge misc Start: 01-06-2020 End: 04-30-2020 [id number], [id number], [id number], [id number], [id number], [id number], [id number], [id number], [id number], [id number] Start: 08-10-2020 End: 04-07-2025 Comment on above: [...] 12-08-2021 Lancets (Freesty le Lancets) 28 gauge [facility] Start: 01-06-2020 End: 04-30-2020 Lancets (Freesty le Lancets) 28 gauge [facility] Start: 04-30-2020 End: 01-26-2022 Lancets (Onetouc h Delica Plus Lancet) 33 gauge [facility] Start: 08-13-2020 End: 01-26-2022 Goals Date Patient Goal Desired Activity /State Personal health goal Functional Status Date Assessment Result Facility 03-20-2025 Are you deaf, or do you have serious difficulty hearing No 03/20/2025 2:40 PM EDT Daphne Guthrie RN No [facility] 03-20-2025 Are you blind, or do you have serious difficulty seeing, even when wearing glasses No 03/20/2025 2:40 PM EDT Daphne Guthrie RN No [facility] 03-20-2025 Do you have serious difficulty walking or climbing stairs No 03/20/2025 2:40 PM EDT Daphne Guthrie RN [facility] 03-20-2025 Do you have difficul ty dressing or bathing No 03/20/2025 2:40 PM EDT Daphne Guthrie RN [facility] 03-20-2025 Because of a physica l, mental, or emotional condition, do you have difficulty doing errands alone such as visiting a physician's office or shopping No 03/20/2025 2:40 PM EDT Daphne Guthrie RN No [facility] 07-08-2019 Are you deaf, or do you have serious difficulty hearing No 07/08/2019 5:43 PM EDT Carol Glasgow, JONI No [facility] 07-08-2019 Are you blind, or do you have serious difficulty seeing, even when wearing glasses No 07/08/2019 5:43 PM EDT Carol Glasgow, JONI No [facility] 07-08-2019 Do you have serious difficulty walking or climbing stairs No 07/08/2019 5:43 PM EDT Carol Glasgow, RN No [facility] 07-08-2019 Do you have difficul ty dressing or bathing No 07/08/2019 5:43 PM EDT Carol Glasgow, RN No [facility] 07-08-2019 Because of a physica l, mental, or emotional condition, do you have difficulty doing errands alone such as visiting a physician's office or shopping No 07/08/2019 5:43 PM EDT Carol Glasgow, JONI No [facility] Mental Status Date Assessment Result Facility 03-20-2025 Because of a physica l, mental, or emotional condition, do you have serious difficulty concentrating, remembering, or making decisions No 03/20/2025 2:40 PM EDT Daphne Guthrie, JONI No [facility] 07-08-2019 Because of a physica l, mental, or emotional condition, do you have serious difficulty concentrating, remembering, or making decisions No 07/08/2019 5:43 PM EDT Carol Glasgow RN No [facility] Clinical Notes 07-05-2019 to 06-27-2025 Telephone Encounter - Mateus Lobo RN - 05/21/2025 1:01 PM EDTTelephone Encounter - Mateus Lobo RN - 05/21/2025 1:01 PM EDTDischarge Instr - Other OrdersPatient Instructions Note Date & Type Note Facility 06-27-2025 Progress note [facility] 05-21-2025 Miscellaneous Notes Surgery canceled and patient is aware. [facility] ordered. documented in this encounter [facility] 05-21-2025 Telephone encounter Note Surgery canceled and patient is aware. [facility] ordered. [facility] 05-21-2025 Hospital Discharge instructions Lilli Ramirez MD [...] immediately for advice documented in this encounter [facility] 05-20-2025 Telephone encounter Note Returned call. No answer. Left voice message. Waiting on return call to discuss. [facility] 05-20-2025 Miscellaneous Notes Returned call. No answer. Left voice message. Waiting on return call to discuss. Alexandra is calling Marlon Cesar MD today with concern regarding insulin prior to her colonoscopy on 05/21 and surgery on 05/22. Patient has been identified by name and birthdate. Duration of symptoms: N/A Person calling: self Call patient at: on cell [phone] (home) [phone] (cell) Was an appointment scheduled: No Closing statement: Symptom Call: Thank you for calling [facility], your call is very important. A nurse will call in approximately 2-4 hours during business hours. If this is an emergency, please contact 911. Joon Bishop documented in this encounter [facility] 05-20-2025 Telephone encounter Note Patient called, state's [...] as prescribed. She will be taking in food in the liquid form so she will [...] stated understanding and accepting of information. Closed. [facility] 05-20-2025 Miscellaneous Notes Patient called, state's she [...] as prescribed. She will be taking in food in the liquid form so she will [...] of information. Closed. documented in this encounter [facility] 05-20-2025 Telephone encounter Note Alexandra is calling Marlon Cesra MD today with concern regarding insulin prior to her colonoscopy on 05/21 and surgery on 05/22. Patient has been identified by name and birthdate. Duration of symptoms: N/A Person calling: self Call patient at: on cell [phone] (home) [phone] (cell) Was an appointment scheduled: No Closing statement: Symptom Call: Thank you for calling [facility], your call is very important. A nurse will call in approximately 2-4 hours during business hours. If this is an emergency, please contact 911. Joon Bishop [facility] 04-23-2025 History of Present illness Narrative Radiology [...] PATIENT PRESENTS WITH AN IMPLANTABLE OR ATTACHED CELL ROOM SUPERVISOR: No ALLERGIES: Reviewed and unchanged CONTRAST ALLERGY: [...] TIME: 3:17 PM documented in this encounter [facility] 04-23-2025 Note HNO ID: [id number] Author: MARTINE HELTON RT (R) Service: Radiology Author Type: Baseboard Heating Installer Type: Progress Notes Filed: 04/23/2025 15:18 Note [...] PATIENT PRESENTS WITH AN IMPLANTABLE OR ATTACHED CELL ROOM SUPERVISOR: No ALLERGIES: Reviewed and unchanged CONTRAST ALLERGY: [...] DATE: April 23, 2025 TIME: 3:17 PM [facility] 04-23-2025 Telephone encounter Note Hi Dr. Esteban, I saw this mutual patient for their Pre-Anesthesia visit on 04/23/2025. Alexandra Bella is scheduled for Left - LAPAROSCOPIC HAND ASSISTED COLECTOMY with Dr. Marlon Cesar on 05/22/2025. Patient is having her CT ab/pelv performed this afternoon. During her [facility] visit she did mention that her photographic restorer at [place] expressed some concerns about uncontrolled GERD based [...] in the office. Thanks! Mart[facility] Blake [facility] Work Phone: 04-23-[address] Esteban, I saw this mutual patient for their Pre-Anesthesia visit on 04/23/2025. Alexandra Bella is scheduled for Left - LAPAROSCOPIC HAND ASSISTED COLECTOMY with Dr. Marlon Cesar on 05/22/2025. Patient is having her CT ab/pelv performed this afternoon. During her [facility] visit she did mention that her photographic restorer at [place] expressed some concerns about uncontrolled GERD based [...] the office. Thanks! Martine Blake PA-C [facility] Office: documented in this encounter [facility] 04-23-2025 Instructions Martine Blake PA-C - 04/23/2025 9:46 AM EDT Images from the original note were not included. [facility] PATIENT PREOPERATIVE INSTRUCTIONS Marlon Cesar,* has scheduled you for your procedure at this surgery center: [facility]: [phone] --[phone] [address]. Please check in on the 1st floor [...] surgery. If you are currently using a hwap-ouz-wpip injectable or oral medication for diabetes or [...] please check with your dialysis center or mitten stitcher to see if any adjustments need to [...] Procedures: - YOU MUST HAVE A RESPONSIBLE ALTERNATIVE MEDICINE PRACTITIONER TAKE YOU HOME. A FEATHERER OR PIPE CLEANING MACHINE OPERATOR CANNOT BE MADE A RESPONSIBLE ALTERNATIVE MEDICINE PRACTITIONER. - We recommend that a responsible person [...] Advance Directive, please fax a copy to [phone] or email to for it to be [...] Martine Blake PA-C documented in this encounter [facility] 04-23-2025 History and physical note Images from the original note were not included. [facility] HISTORY AND PHYSICAL EXAMINATION SERVICE DATE: 04/23/2025 SERVICE TIME: 9:39 AM Recording using iiyuma software for draft documentation of the visit was discussed with the patient/authorized client care representative; all questions welcomed and answered. Patient/authorized client care representative agreed to proceed. PRIMARY CARE PHYSICIAN: Leonora Davalos APRN.SPOOL MAKER Assessment Patient has the following medical conditions [...] 03/28/2025 130/72 4. 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 - Will obtain records from Dr. Ballesteros. 7. 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 -Managed by cardiology Dr. Hobbs. - No recent palpitations or irregular rhythms. - Discussed prior adverse reaction to antiemetics with flecainide; will review antiemetic options for perioperative use. 9. MARILIA on CPAP (G47.33) -Compliant with bipap, advised to bring DOS. -Follows with pulmonology at [place]. 10. Post-operative nausea and vomiting (R11.2) -Pt [...] vein thrombosis) (Z86.718) - History of DVT; Inez filter in place. 15. Gastroesophageal reflux disease [...] Obesity, Class III, BMI 40-49.9 (morbid obesity) ([facility]) (E66.813) Body mass index is 48.11 kg/m [...] Apparently vulnerable STOP-Bang Score: STOP-Bang Score: (+MARILIA) [id number] Score: Age: 65-74 Sex: female CHF history: No Hypertension history: Yes Stroke/TIA/thromboembolism history: No Vascular disease history: No Diabetes history: Yes [id number] Score: 4 I - PHYSICAL EVALUATION AIRWAY [...] chest pain, CHF, congenital heart defect, recent LA, murmur/valvular heart disease, PVD, open heart surgery [...] breast PAST SURGICAL HISTORY OF 07/2008 had fatty tumor removed from back PAST SURGICAL HISTORY OF [...] Prior to Admission medications as of 04/23/25 0943 Medication Sig Last Dose Taking glipiZIDE (GLUCOTROL [...] Take 25 mg by mouth once daily. 2 tab Yes furosemide (LASIX) 40 mg tablet [...] and none on Sundays. Yes Blood-Glucose Meter (HinacomUCH ULTRA2 METER) monitoring kit Use to test [...] (Src) 97.7 (Temporal) Resp 16 Ht 5' 3 (1.60m) Wt 271 lb 9.7 oz (123.2kg) [...] 444 QTC Calculation (Bazett) 521 Calculated P [place] 58 Calculated R [place] 109 Calculated T [place] 19 Impression NORMAL SINUS RHYTHM RIGHT BUNDLE BRANCH BLOCK ABNORMAL ECG WHEN COMPARED WITH ECG OF 01-Mar-2021 16:24, INVERTED T WAVES HAVE REPLACED NONSPECIFIC T WAVE ABNORMALITY IN INFERIOR LEADS Confirmed by TONJA OVALLE MD ([id number]) on 03/19/2025 4:18:35 PM No results found for this or any previous visit (from the past 52383 hours). Instructions Given to Patient: Instructions located [...] No Comment: occasional, rare Drug use: Never [facility] 04-23-2025 History and physical note Images from the original note were not included. [facility] HISTORY AND PHYSICAL EXAMINATION SERVICE DATE: 04/23/2025 SERVICE TIME: 9:39 AM Recording using iiyuma software for draft documentation of the visit was discussed with the patient/authorized client care representative; all questions welcomed and answered. Patient/authorized client care representative agreed to proceed. PRIMARY CARE PHYSICIAN: Leonora Davalos APRN.SPOOL MAKER Assessment Patient has the following medical conditions [...] 03/28/2025 130/72 4. 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 - Will obtain records from Dr. Ballesteros. 7. 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 -Managed by cardiology Dr. Hobbs. - No recent palpitations or irregular rhythms. - Discussed prior adverse reaction to antiemetics with flecainide; will review antiemetic options for perioperative use. 9. MARILIA on CPAP (G47.33) -Compliant with bipap, advised to bring DOS. -Follows with pulmonology at [place]. 10. Post-operative nausea and vomiting (R11.2) -Pt [...] vein thrombosis) (Z86.718) - History of DVT; Rena Lara filter in place. 15. Gastroesophageal reflux disease [...] Apparently vulnerable STOP-Bang Score: STOP-Bang Score: (+MARILIA) [id number] Score: Age: 65-74 Sex: female CHF history: No Hypertension history: Yes Stroke/TIA/thromboembolism history: No Vascular disease history: No Diabetes history: Yes [id number] Score: 4 I - PHYSICAL EVALUATION AIRWAY [...] chest pain, CHF, congenital heart defect, recent LA, murmur/valvular heart disease, PVD, open heart surgery [...] breast PAST SURGICAL HISTORY OF 07/2008 had fatty tumor removed from back PAST SURGICAL HISTORY OF [...] and none on Sundays. Yes Blood-Glucose Meter (HinacomUCH ULTRA2 METER) monitoring kit Use to test [...] (Src) 97.7 (Temporal) Resp 16 Ht 5' 3 (1.60m) Wt 271 lb 9.7 oz (123.2kg) [...] 444 QTC Calculation (Bazett) 521 Calculated P [place] 58 Calculated R [place] 109 Calculated T [place] 19 Impression NORMAL SINUS RHYTHM RIGHT BUNDLE BRANCH BLOCK ABNORMAL ECG WHEN COMPARED WITH ECG OF 01-Mar-2021 16:24, INVERTED T WAVES HAVE REPLACED NONSPECIFIC T WAVE ABNORMALITY IN INFERIOR LEADS Confirmed by TONJA OVALLE MD ([id number]) on 03/19/2025 4:18:35 PM No results found for this or any previous visit (from the past 75039 hours). Instructions Given to Patient: Instructions located [...] Drug use: Never documented in this encounter [facility] 04-22-2025 Evaluation note Diagnosis Onset Date Resolution Cough acute April 22, 8:19am GERD (gastroesophageal reflux disease) acute April 22 8:19am Dyspnea on exertion chronic Augus t 2024 8:19am Obesity chronic April 22 8:19am Sleep apnea chronic April 22, 2025 8:19am Chronic diastolic (congestive) heart failure chronic Octob er 2024 8:58am Dyspnea on exertion chronic Octob er 2024 8:58am Morbid obesity with BMI of 45.0-49.9, adult chronic June 27, 2025 8:58am Paroxysmal atrial fibrillation chronic June 27, 2025 8:58am Pure hypercholesterolemia chronic June 27, 2025 8:58am [facility] Work Phone: 1(100) 332-841808-01-2025 Telephone encounter Note* Telephone Encounter - Dariela Kothari RN - 04/11/2025 11:36 AM EDT Call placed to patient. Based upon Anesthesia Guidelines, surgery will need to be moved out a few weeks due to medication Simponi. She will not take her next dose (due 05/05) in preparation for surgery. She will await call about anticoagulation pending reply from her mis director. Patient acknowledges and understands. Message sent to surgery schedulers to make adjustments. [facility]08-01-2025 Miscellaneous Notes* Telephone Encounter - Dariela Kothari RN - 04/11/2025 11:36 AM EDT Call placed to patient. Based upon Anesthesia Guidelines, surgery will need to be moved out a few weeks due to medication Simponi. She will not take her next dose (due 05/05) in preparation for surgery. She will await call about anticoagulation pending reply from her mis director. Patient acknowledges and understands. Message sent to surgery schedulers to make adjustments. [facility] Telephone encounter Note * Telephone Encounter - Marissa Tim RN - 04/10/2025 11:09 AM EDT Patient read Mangohart message on 04/08/25 at 1547. Closed [facility]07-31-2025 Miscellaneous Notes* Telephone Encounter - Marissa Tim RN - 04/10/2025 11:09 AM EDT Patient read Mychart message on 04/08/25 at 1547. Closed * Telephone Encounter - Neema Berman MA - 04/08/2025 2:13 PM EDT Mychart message sent with alert if not read. Keep open Eliceo wants glucose readings in 7-10 days. 04/16/25 we should receive readings. If not we will call/message patient. * Telephone Encounter - Eliceo Ambriz APRN.CNP [...] readings sent in? Etc. [facility] Telephone encounter Note * Telephone Encounter - Meño Manning - 04/09/2025 8:48 AM EDT Patient has more request. Please contact them. Pt needs surgery delayed a week per Renee. CB#: [phone] [facility]07-30-2025 Miscellaneous Notes* Telephone Encounter - Meño Manning - 04/09/2025 8:48 AM EDT Patient has more request. Please contact them. Pt needs surgery delayed a week per Renee. CB#: [phone] * Telephone Encounter - Renee Echeverria APRN.CNP - 04/08/2025 2:58 PM EDT Chasity I saw this mutual patient in [facility] on 04/07/25 Alexandra Bella 1955 [id number] is scheduled for LAPAROSCOPIC HAND ASSISTED COLECTOMY [...] anticoagulation instructions and pending reply from her Baggage Smasher - Dr. Hobbs. Renee Echeverria APRN.CNP Pre-Anesthesia [facility] Telephone encounter Note * Telephone Encounter - [...] week if still symptomatic. Rosy Esteban MD [facility]07-29-2025 Miscellaneous Notes* Telephone Encounter - Rosy Esteban [...] Please advise. Jane Win documented [facility]25 Telephone encounter Note * Telephone Encounter - Renee Echeverria APRN.CNP - 04/08/2025 2:58 PM EDT Roger Gaspar saw this mutual patient in [facility] on 04/07/25 Alexandra Bella 1955 [id number] is scheduled for LAPAROSCOPIC HAND ASSISTED COLECTOMY [...] anticoagulation instructions and pending reply from her Baggage Smasher - Dr. Hobbs. Renee Echeverria APRN.CNP Pre-Anesthesia [facility]07-29-2025 Telephone encounter Note* Telephone Encounter - Neema Berman MA - 04/08/2025 2:13 PM EDT [employer] message sent with alert if not read. Keep open Eliceo wants glucose readings in 7-10 days. 04/16/25 we should receive readings. If not we will call/message patient. [facility]07-29-2025 Telephone encounter Note* Telephone Encounter - Christine Lobo LPN - 04/08/2025 1:12 PM EDT Call placed to office re need for returned anticoagulation letter for upcoming surgery. Spoke with Ximena at office. Refaxed-fax confirmation x 2 received. [facility]07-29-2025 Miscellaneous Notes* Telephone Encounter - Christine Lobo LPN - 04/08/2025 1:12 PM EDT Call placed to office re need for returned anticoagulation letter for upcoming surgery. Spoke with Ximena at office. Refaxed-fax confirmation x 2 received. documented in this encounterGe[facility]07-[facility]-2025 Telephone encounter Note * Telephone Encounter - Eliceo Ambriz APRN.SERVANDO [...] since we are lowering Mounjaro. Thank you [facility]07-28-2025 Telephone encounter Note* Telephone Encounter - Corrie [...] you want glucose readings sent in? Etc. [facility]07-28-2025 Telephone encounter Note* Telephone Encounter - Hailey Ocampo RN - 04/07/2025 9:[address] Esteban, please see pt's update below and advise. Thank you, Hailey Ocampo RN [facility]07-28-2025 Instructions* Patient Instructions* Renee Echeverria APRN.SPOOL MAKER - 04/07/2025 7:48 AM EDT Images from the original note were not included. [facility] PATIENT PREOPERATIVE INSTRUCTIONS Marlon Cesar,* has scheduled you for your procedure at this surgery center: [facility]: [phone] --[phone] [address]. Please check in on the1st floor at [...] 04/22/25. If you are currently using a ghdw-wjf-gxpt injectable or oral medication for diabetes or [...] Advance Directive, please fax a copy to [phone] or email to for it to be [...] day. Renee Echeverria APRN.SERVANDO documented in this encounter[facility]07[facility] History and physical note * Renee Echeverria [...] 03/28/2025 123/82 4. 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 - Continue flecainide on day of surgery. 23. Obesity, Class III, BMI 40-49.9 (morbid obesity) ([facility]) (E66.813) - Body mass index is [...] Score: STOP-Bang Score: (+ marilia on cpap) [id number] Score: Age: 65-74 Sex: female CHF history: Yes Hypertension history: Yes Stroke/TIA/thromboembolism history: Yes Vascular disease history: No Diabetes history: Yes [id number] Score: 7 I - PHYSICAL EVALUATION AIRWAY [...] and hypertension Patient's last office visit with mis director, Dr. Hobbs, The following tests and/or procedures were performed: cardiac catheterization, cardiac stress test and echocardiogram. The following tests and/or procedures were not performed: cardiac stents. Negative for: abdominal aortic aneurysm, AICD/PPM, angina, anticoagulation therapy, arrhythmia, chest pain, congenital heart defect, recent LA, murmur/valvular heart disease, PTCA, PVD, open heart [...] depression. Musculoskeletal: Positive for: rheumatoid arthritis. Patient's property accountant is Dr. Jacquie Lloyd. Rheumatoid arthritisList: hx [...] breast PAST SURGICAL HISTORY OF 07/2008 had fatty tumor removed from back PAST SURGICAL HISTORY OF [...] (Src) 97.6 (Temporal) Resp 16 Ht 5' 3 (1.60m) Wt 268 lb 15.4 oz(122.0kg) SpO2 [...] 444 QTC Calculation (Bazett) 521 Calculated P [place] 58 Calculated R [place] 109 Calculated T [place] 19 Impression NORMAL SINUS RHYTHM RIGHT BUNDLE BRANCH BLOCK ABNORMAL ECG WHEN COMPARED WITH ECG OF 01-Mar-2021 16:24, INVERTED T WAVES HAVE REPLACED NONSPECIFIC T WAVE ABNORMALITY IN INFERIOR LEADS Confirmed by TONJA OVALLE MD ([id number]) on 03/19/2025 4:18:35 PM No results found for this or any previous visit (from the past 86347 hours). Instructions Given to Patient: Instructions located in the after visit summary. Patient given verbal and written preop instructions and voices comprehension and compliance. Recording using ambient [employer] software for draft documentation of the visit was discussed with the patient/authorized client care representative; all questions welcomed and answered. Patient/authorized client care representative agreed to proceed SIGNATURE: Renee Echeverria APRN.CNP PATIENT NAME: Alexandra Bella DATE: April 07, 2025 TIME: 7:46 AM PAGER/CONTACT #: [facility]07-28-2025 History and physical note* Renee Echeverria APRN.SERVANDO - 04/07/2025 7:46 AM EDT Images from the original note were not included. [facility] HISTORY AND PHYSICAL EXAMINATION SERVICE DATE: 04/07/2025 SERVICE TIME: 10:19 AM PRIMARY CARE PHYSICIAN: Leonora Davalos APRN.SPOOL MAKER Assessment Patient has the following medical conditions [...] 03/28/2025 123/82 4. 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 - Continue flecainide on day of surgery. 23. Obesity, Class III, BMI 40-49.9 (morbid obesity) ([facility]) (U67.311) - Body mass index is 47.64 kg/m [...] Score: STOP-Bang Score: (+ marilia on cpap) [id number] Score: Age: 65-74 Sex: female CHF history: Yes Hypertension history: Yes Stroke/TIA/thromboembolism history: Yes Vascular disease history: No Diabetes history: Yes [id number] Score: 7 I - PHYSICAL EVALUATION AIRWAY [...] and hypertension Patient's last office visit with mis director, Dr. Hobbs, The following tests and/or procedures were performed: cardiac catheterization, cardiac stress test and echocardiogram. The following tests and/or procedures were not performed: cardiac stents. Negative for: abdominal aortic aneurysm, AICD/PPM, angina, anticoagulation therapy, arrhythmia, chest pain, congenital heart defect, recent LA, murmur/valvular heart disease, PTCA, PVD, open heart [...] depression. Musculoskeletal: Positive for: rheumatoid arthritis. Patient's property accountant is Dr. Jacquie Lloyd. Rheumatoid arthritisList: hx of DMARD and prednisone. Skin: Positive for: itching. Implanted Devices: Has implanted device Implants: Tumri IVC Filter. PAST MEDICAL HISTORY Diagnosis Date Acute deep vein thrombosis (DVT) of popliteal vein of left lower extremity (HCC) Four DVT's last one 20 years ago- control- and after fracture Asymptomatic postmenopausal status (age-related) (natural) 03/2000 LMP 03/2000 CHF (congestive heart failure) (HCC) Colon cancer (HCC) 2018 Colorectal cancer (HCC) Endocarditis 2016 Essential hypertension 08/24/2018 Gastroesophageal reflux disease without [...] breast PAST SURGICAL HISTORY OF 07/2008 had fatty tumor removed from back PAST SURGICAL HISTORY OF [...] Prior to Admission medications as of 04/07/25 7751 Medication Sig Last Dose Taking neomycin 500 [...] (Src) 97.6 (Temporal) Resp 16 Ht 5' 3 (1.60m) Wt 268 lb 15.4 oz(122.0kg) SpO2 [...] 444 QTC Calculation (Bazett) 521 Calculated P [place] 58 Calculated R [place] 109 Calculated T [place] 19 Impression NORMAL SINUS RHYTHM RIGHT BUNDLE BRANCH BLOCK ABNORMAL ECG WHEN COMPARED WITH ECG OF 01-Mar-2021 16:24, INVERTED T WAVES HAVE REPLACED NONSPECIFIC T WAVE ABNORMALITY IN INFERIOR LEADS Confirmed by TONJA OVALLE MD ([id number]) on 03/19/2025 4:18:35 PM No results found for this or any previous visit (from the past 40375 hours). Instructions Given to Patient: Instructions located in the after visit summary. Patient given verbal and written preop instructions and voices comprehension and compliance. Recording using iiyuma software for draft documentation of the visit was discussed with the patient/authorized client care representative; all questions welcomed and answered. Patient/authorized client care representative agreed to proceed SIGNATURE: Renee Echeverria APRN.CNP PATIENT NAME: Alexandra Bella DATE: April 07, 2025 TIME: 7:46 AM PAGER/CONTACT #: documented in [facility] encounterGe[facility] Telephone encounter Note * Telephone Encounter - Rosy Esteban MD - 04/02/2025 8:07 AM EDT Hailey: Please call her and find out about her symptoms and the course oh her treatment and work-up done thus far. Did she reach out to her PCP? Rosy Esteban MD [facility]07-18-2025 Miscellaneous Notes* SN Agency DC - Jane Martinez RN - 03/28/2025 2:17 PM EDT SITUATION: Halfway agency discharge visit completed today. only patient [...] for additional medical questions/concerns. documented in this encounterGeorgetown [facility]al Hospital07-18-2025 Patient's home Note* SN Agency [place] - Jane Martinez RN - 03/28/2025 2:17 PM EDT SITUATION: Halfway agency discharge visit completed today. only patient [...] Leonora Davalos APRN.CNP for additional medical questions/concerns. [facility] Work Phone: 1(533) 966-158607-18-2025 NoteHNO ID: [id number] Author: MATEUS LOBO RN Service: ? Author [...] further concerns and for post operative questions. [phone] Staff Message sent to OR cardiopulmonary supervisor with procedure/time/date for patient. TIME SPENT: 15 minutes Electronically Signed By: ABDOULAYE Trevizo, RN DDSI Specialty Care CoordinatorF[facility]07-[facility]-20[facility] History of Present illness Narrative* Mateus Lobo RN - 03/28/2025 1:48 PM EDT AMBULATORY [...] further concerns and for post operative questions. [phone] Staff Message sent to OR cardiopulmonary supervisor with procedure/time/date for patient. TIME SPENT: 15 minutes Electronically Signed By: ABDOULAYE Trevizo, RN DD Specialty Occupational Therapy Manager documented in this encounterGeorgetown Behavioral Hospital07-18-2025 History of Present illness Narrative* Marlon Cesar MD - 03/28/2025 10:15 AM EDT COLORECTAL SURGERY March 28, 2025 Alexandra Bella This consult was requested by Dr. Rosy Esteban and my final recommendations will be communicated to the requesting health care provider by way of the shared medical record for internal providers or letter via the [employer] for external providers. Recording using iiyuma software for draft documentation of the visit was discussed with the patient/authorized client care representative; all questions welcomed and answered. Patient/authorized client care representative agreed to proceed Chief Complaint: diverticulitis History [...] left pelvis Colonoscopy on 11/01/[address] Khaled Carlito - The examined portion of the ileum [...] breast PAST SURGICAL HISTORY OF 07/2008 had fatty tumor removed from back PAST SURGICAL HISTORY OF [...] NT Anorectal: External exam reveals: see below Cardiac Technologist present: yes The sensitive examination was discussed with the Patient or Patient's Authorized Whizzer Hand. Asapplicable, any other physician, advance practice provider, medical student, or other health professional student that will be observing or involved in the sensitive examination for educational or training purposes was discussed with the Patient or Authorized Whizzer Hand. The Patient or Authorized Whizzer Hand has agreed to proceed with the sensitive [...] Cesar MD Colorectal Surgery documented in this encounterGeorgetown [facility]07-18-2025 NoteHNO ID: [id number] Author: MARLON CESAR MD Service: ? Author Type: Physician Type: Progress Notes Filed: 04/07/2025 08:28 Note Text: COLORECTAL SURGERY March 28, 2025 Alexandra Bella This consult was requested by Dr. Rosy Esteban and my final recommendations will be communicated to the requesting health care provider by way of the shared medical record for internal providers or letter via the [employer] Postal Service for external providers. Recording using iiyuma software for draft documentation of the visit was discussed with the patient/authorized client care representative; all questions welcomed and answered. Patient/authorized client care representative agreed to proceed Chief Complaint: diverticulitis History [...] MASTEC PARTIAL W AXI (more content not included)...[facility] 03-28-[facility] NoteEducation ([facility]) ALEXANDRA BELLA ([id number]) 1955 F Date Time Provider Department 03/28/25 MATEUS LOBO [facility] Reason for Visit: Diverticulitis [271] During [...] daily. Encounter Status:Closed by MATEUS LOBO on 03/31/25[facility] 03-26-[facility] Telephone encounter Note* Telephone Encounter [...] her Flagyl therapy? Please clarify. Thank you! T [facility] Work Phone: 1(978) 384-204007-16-2025 Miscellaneous Notes* Telephone Encounter - Kwasi Cortes [...] Please clarify. Thank you! documented in this encounterGeorgetown Behavioral Hospital07-16-2025 Miscellaneous Notes* CARE COORDINATION - Kwasi Cortes RN - 03/26/2025 4:45 PM EDT SN placed a telephone encounter out to [facility] Pharmacy and Dr. Manley's team for clarification of IV Therapy stop orders. Patient currently has IV Ceftriaxone and IV Flagyl running. Ths SN received an email from [facility] that the CoPat stop will be honored and the PICC line is to be pulled on 03/27 (This is when the Ceftriaxone is complete.) However, the patient still has 6 doses of Flagyl in the home with a stop date of 03/31. This SN requesting further clarification of the IV Therapy orders from Dr. Manley's team as well as [facility]. Clarification per pharmacy, patient has transitioned to oral Flagyl. Proceed with PICC discontinuation after completion of IV doses on 03/27. SN visit has been scheduled for 03/28 PICC removal. documented in this encounterGeorgetown Behavioral Hospital07-16-2025 Patient's home Note* CARE COORDINATION - Kwasi Cortes RN - 03/26/2025 4:45 PM EDT SN placed a telephone encounter out to [facility] Pharmacy and Dr. Manley's team for clarification of IV Therapy stop orders. Patient currently has IV Ceftriaxone and IV Flagyl running. Ths SN received an email from [facility] that the CoPat stop will be honored and the PICC line is to be pulled on 03/27 (This is when the Ceftriaxone is complete.) However, the patient still has 6 doses of Flagyl in the home with a stop date of 03/31. This SN requesting further clarification of the IV Therapy orders from Dr. Manley's team as well as [facility]. Clarification per pharmacy, patient has transitioned to oral Flagyl. Proceed with PICC discontinuation after completion of IV doses on 03/27. SN visit has been scheduled for 03/28 PICC removal. [facility] Work Phone: [phone]) 186-314907-16-2025 Telephone encounter Note* Telephone Encounter - Jonathan Silva RPh - 03/26/2025 1:12 PM EDTSummary: Opened in error Opened in error [facility]07-16-2025 Miscellaneous Notes* Telephone Encounter - Jonathan Silva RPh - 03/26/2025 1:12 PM EDTSummary: Opened in error Opened in error documented in this encounterGeorgetown Behavioral Hospital07-16-2025 Telephone encounter Note * Telephone Encounter - Martine Díaz LPN - 03/26/2025 12:15 PM EDT March 26 cmp reviewed in [email or web address], no changes Elevated but improved: AST 67 (93), ALT 54 (62) Orders given to [facility] with [facility] to honor tomorrow's stop date and the picc line can be removed after the last dose. Alexandra was also made aware. [facility]07-16-[facility]25 Miscellaneous Notes* Telephone Encounter - Martine Díaz LPN - 03/26/2025 12:15 PM EDT March 26 cmp reviewed in [email or web address], no changes Elevated but improved: AST 67 (93), ALT 54 (62) Orders given to Jonathan with [facility] to honor tomorrow's stop date and the picc line can be removed after the last dose. Alexandra was also made aware. * Telephone Encounter - Martine Díaz LPN - 03/25/2025 1:41 PM EDT Per Robin--Repeat labs tomorrow and if worse, then stop antibiotics one day sooner Orders given to Jonathan with [facility] to obtain a repeat CMP tomorrow * Telephone Encounter - Martine Díaz LPN - 03/24/2025 1:33 PM EDT SHELLIE Manley--Please see the attached copat and emails below on Alexandra Neri March 24 abn labs: AST 93 (14), [...] date. Above orders given to Davin with [facility]. Alexandra was also notified. VM left for the nurse, Betsy. * Telephone Encounter - Zuly Aguilera, RN - 03/20/2025 6:39 PM EDTSummary: COPAT ACTION-FOR IDC USE ONLY Images from the original note were not included. 03/20/2025 11:30 AM Elmer Manley OR PROVIDER ADULT [phone] Patient Info Patient Name Sex Alexandra Bella ([id number]) Female 1955 Encounter Notes Progress Notes by Elmer Manley MD, encounter date 03/20/2025: Progress Notes [facility] Outpatient Parenteral Antimicrobial Therapy (OPAT) Start Form Patient Info Patient MRN Patient Name Address Date of [id number] Alexandra Bella [address] [id number] 1955 Start Date 03/20/2025 Physician Group [facility] Diagnosis Group Diagnosis GI/Hepatobiliary/Peritoneal: Colitis Micro-organism CULTURE [...] on an intermittent IV antibiotic dosing schedule: [facility] method: 1) Administer normal saline 5ml IV to port. 2) Infuse IV antibiotic as ordered. 3) Administer normal saline 5ml IV to port. Labs may be drawn on Monday if Monday is a holiday. 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 Pure hypercholesterolemia Type 2 diabetes mellitus with diabetic polyneuropathy, without long-term current use of insulin Obesity, Class III, BMI >= 40 Sepsis Follow up Provider Follow up date/time Appointment type Elmer Manley MD No Follow Up Provider Monitoring Treatment Course Elmer Manley MD Address [address] [place] [address], [address], [place] [address] Prescribing Provider's signature - electronically signed by Elmer Manley MD on 03/20/25 at 11:31 AM documented in this encounterGeorgetown Behavioral Hospital07-16-2025 Telephone encounter Note * Telephone Encounter - Jane Martinez RN - 03/26/2025 8:20 AM EDT Patient complaining of increased pain to R lower back into groin area - 6/10 and having nausea vomiting and chills this am. Patient is afebrile and vitals signs WNL. She complains of extreme fatigue and just not feeling well in general. Please advise. Jane Win [facility] Work Phone: 1([phone]) 763-283107-16-2025 Miscellaneous Notes* SN IV - Jane Martinez RN - 03/26/2025 8:09 AM EDT SITUATION: Skilled nurse visit. only patient present during today's visit. patient reports the following since last homecare visit: Allergies--reviewed Medications--reviewed current medications Falls--None BACKGROUND: Reason for Home Care: Ulcerative (chronic) pancolitis without complications ASSESSMENT: SN instructed to come in. Sitting up on couch Patient appears in no acute distress. IV: Halfway IV visit completed for IV administration education: [...] from here on it and will call [facility] if any issues or concerns prior [...] follow up on colorectal appt, amaury, NVD documented in this encounterGeorgetown [facility]al Hospital07-16-2025 Patient's home Note* SN IV - Jane Martinez, RN - 03/26/2025 8:09 AM EDT SITUATION: Skilled nurse visit. only patient present during today's visit. patient reports the following since last homecare visit: Allergies--reviewed Medications--reviewed current medications Falls--None BACKGROUND: Reason for Home Care: Ulcerative (chronic) pancolitis without complications ASSESSMENT: SN instructed to come in. Sitting up on couch Patient appears in no acute distress. IV: Halfway IV visit completed for IV administration education: [...] from here on it and will call [facility] if any issues or concerns prior [...] follow up on colorectal appt, RUSSELL rebolledo [facility] Work Phone: [phone]) [phone] Telephone encounter Note* Telephone Encounter - Martine Díaz LPN - 03/25/2025 1:41 PM EDT Per Robin--Repeat labs tomorrow and if worse, then stop antibiotics one day sooner Orders given to Jonathan with [facility] to obtain a repeat CMP tomorrow [facility]07-15-2025 Miscellaneous Notes* SN IV - Jane Martinez RN - [...] Patient appears in no acute distress. IV: Halfway IV visit completed for IV administration education: [...] edu visit tomorrow am documented in this encounterGeorgetown [facility]al Hospital07-15-2025 Patient's home Note* HH SN IV - Jane Martinez RN [...] Patient appears in no acute distress. IV: Halfway IV visit completed for IV administration education: [...] visit to focus on (be specific): Last [facility] visit tomorrow am [facility] Work Phone: [phone]) 983-152107-14-2025 Miscellaneous Notes* SN IV - Joy Katz RN - 03/24/2025 3:45 PM EDT SITUATION: Skilled nurse visit. only patient present during today's visit. patient reports the following since last homecare visit: Allergies--reviewed Medications--reviewed current medications Falls--None ASSESSMENT: SN greeted at door by patient no DME and demonstrates stable gait. Patient appears in no acute distress. IV: Halfway IV visit completed for IV administration education: During visit, patient demonstrated need for continued IV infusion education and needs further instructions focused on set up and occupational health nursing director procedure. VISIT: Patient/CG concerns verbalized today: none Vitals (see flow sheet for details): declined- done this AM SN findings today: Pt appears anxious about set up process. Pt had previously used the dial-a-flow deviced but this was removed this morning so patient felt off with occupational health nursing director procedure and not confident. SN reapplied the [...] to focus on (be specific): IV teaching occupational health nursing director documented in this encounterGeorgetown [facility]al Hospital07-14-2025 Patient's home Note* SN IV - Joy Katz RN - 03/24/2025 3:45 PM EDT SITUATION: Skilled nurse visit. only patient present during today's visit. patient reports the following since last homecare visit: Allergies--reviewed Medications--reviewed current medications Falls--None ASSESSMENT: SN greeted at door by patient no DME and demonstrates stable gait. Patient appears in no acute distress. IV: Halfway IV visit completed for IV administration education: During visit, patient demonstrated need for continued IV infusion education and needs further instructions focused on set up and occupational health nursing director procedure. VISIT: Patient/CG concerns verbalized today: none Vitals (see flow sheet for details): declined- done this AM SN findings today: Pt appears anxious about set up process. Pt had previously used the dial-a-flow deviced but this was removed this morning so patient felt off with occupational health nursing director procedure and not confident. SN reapplied the [...] to focus on (be specific): IV teaching occupational health nursing director [facility] Work Phone: [phone]) [phone] Telephone encounter Note* Telephone Encounter - Corrie Alejandro RN - 03/24/2025 3:39 PM EDT Please review and advise. [facility]07-14-2025 Miscellaneous Notes* Telephone Encounter - Corrie Alejandro RN - 03/24/2025 3:39 PM EDT Please review and advise. * Telephone Encounter - Corrie Alejandro RN - 03/21/2025 10:07 AM EDT Please review and documented in this encounterGeorgetown Behavioral Hospital07-14-2025 Telephone encounter Note * Telephone Encounter - Martine Díaz LPN - 03/24/2025 1:33 PM EDT SHELLIE Manley--Please see the attached copat and emails below on Alexandra Bella March 24 abn labs: AST 93 (14), ALT 62 (17) The stop date is [facility]07-14-2025 Telephone encounter Note* Telephone Encounter - Mateus Lobo RN - 03/24/2025 10:37 AM EDT Patient scheduled with Dr Cesar on 03/28. [facility]07-14-2025 Miscellaneous Notes* Telephone Encounter - Mateus Lobo [...] AM EDT Hailey: She was discharged form [facility] 03/20/2025: Patient was admitted to the hospital [...] appointment with Dr. Cesar. Rosy Esteban MD * Telephone Encounter - Hailey Ocampo RN - 03/18/2025 1:58 PM EDT Pt is currently admitted to [facility]. Hailey Ocampo RN Per H & P: Acute diverticulitis (POA: Yes) --Presented to [facility] for evaluation of abdominal pain --CT [...] - 03/17/2025 12:01 PM EDT Please review mychart message and please advise. Thank You Ashley Rosario LPN documented in this encounterGeorgetown Behavioral Hospital07-14-2025 Telephone encounter Note * Telephone Encounter - Hailey Ocampo RN - 03/24/2025 9:[address] Cesar's team, please call pt to schedule an OV to discuss sigmoidectomy for recurrent diverticulitis. Thank you, Hailey Ocampo RN [facility] Work Phone: 1(880) 130-523707-14-2025 Miscellaneous Notes* HH SN IV - Sammie [...] Patient appears in no acute distress. IV: Halfway IV visit completed for IV administration education: [...] (be specific): IV Instruction documented in this encounterGeorgetown Behavioral Hospital07-14-2025 Patient's home Note* SN IV - Sammie Jordan RN - [...] Patient appears in no acute distress. IV: Halfway IV visit completed for IV administration education: [...] to focus on (be specific): IV Instruction [facility] Work Phone: 1(745) 268-423107-13-2025 Miscellaneous Notes* SN IV - Dalila Burroughs [...] Patient appears in no acute distress. IV: Halfway IV visit completed for IV administration education: [...] care, labs, infusion teaching documented in this encounterGeorgetown Behavioral Hospital07-13-2025 Patient's home Note* HH SN IV - [...] Patient appears in no acute distress. IV: Halfway IV visit completed for IV administration education: [...] (be specific): PICC care, labs, infusion teaching [facility] Work Phone: [phone]) 943-141207-13-2025 Telephone encounter Note* Telephone Encounter - Rosy Esteban MD - 03/23/2025 11:12 AM EDT Hailey: She was discharged form [facility] 03/20/2025: Patient was admitted to the hospital [...] appointment with Dr. Cesar. Rosy Esteban MD [facility]07-13-2025 Miscellaneous Notes* SN IV - Miracle Schumacher RN - 03/23/2025 8:00 AM EDT SITUATION: Skilled nurse visit. spouse present during today's visit. patient reports the following since last homecare visit: Allergies--reviewed Medications--reviewed current medications Falls--None BACKGROUND: Reason for Home Care: IV antibiotics ASSESSMENT: SN greeted at door by caregiver. Upon entrance patient found in chair Patient appears in no acute distress. IV: Halfway IV visit completed for IV administration education: [...] specific): PICC CARE- LABS documented in this encounterGeorgetown Behavioral Hospital07-13-2025 Patient's home Note* HH SN IV - [...] Patient appears in no acute distress. IV: Halfway IV visit completed for IV administration education: [...] focus on (be specific): PICC CARE- LABS [facility] Work Phone: 1(529) 905-220407-12-2025 Miscellaneous Notes* Miracle Alvarado IV, RN - 03/22/2025 1:34 PM EDT SITUATION: Skilled nurse visit. spouse present during today's visit. patient reports the following since last homecare visit: Allergies--reviewed Medications--reviewed current medications Falls--None BACKGROUND: Reason for Home Care: IV antibiotics ASSESSMENT: SN greeted at door by caregiver. Upon entrance patient found in chair Patient appears in no acute distress. IV: Halfway IV visit completed for IV administration education: [...] specific): IV DRIP EDUCATION documented in this encounterGeorgetown Behavioral Hospital07-12-2025 Patient's home Note* Miracle Sher IV, RN - 03/22/2025 1:34 PM EDT SITUATION: Skilled nurse visit. spouse present during today's visit. patient reports the following since last homecare visit: Allergies--reviewed Medications--reviewed current medications Falls--None BACKGROUND: Reason for Home Care: IV antibiotics ASSESSMENT: SN greeted at door by caregiver. Upon entrance patient found in chair Patient appears in no acute distress. IV: Halfway IV visit completed for IV administration education: [...] focus on (be specific): IV DRIP EDUCATION [facility] Work Phone: [phone]) [phone] Telephone encounter Note* Telephone Encounter - Martine Díaz LPN - 03/21/2025 3:36 PM EDT SHELLIE Engelni--Please see the attached copat on Alexandra Bella. [...] date. Above orders given to Davin with [facility]. Alexandra was also notified. VM left for the nurse, Betsy. [facility]07-11-2025 Telephone encounter Note* Telephone Encounter - Betsy Fuentes RN - 03/21/2025 2:00 PM EDT Hello- Patient was admitted to home care [...] her concerns. Please advise. Betsy Fuentes RN [facility] Work Phone: [phone]) 887-745207-11-2025 Miscellaneous Notes* Telephone Encounter - Betsy Fuentes RN - 03/21/2025 2:00 PM EDT Hello- Patient was admitted to home care [...] her concerns. Please advise. Betsy Fuentes RN [facility] documented in this encounterGe[facility] Miscellaneous Notes* SN SOC IV - Betsy Fuentes RN - 03/21/2025 12:00 PM EDT SITUATION: Halfway SOC IV visit completed today. spouse and daughter also present during today's visit. patient reports the following: Allergies--reviewed Medications--full medication reconciliation completed and reviewed current medications Falls--None DME-Reviewed and added to chart Advance Directives: Patient does have advance directives. BACKGROUND: Discharged/Referral from acute [facility] hospital on 03/20/25 following treatment for diverticulitis [...] issues were noted with medication doses. Patient [facility] did not have the dosing correct on her cardiac meds and she was not sure what the doses were without her own med list which she did not have. SN called Dr. Ruth's office who is her mis director with [facility]. Spoke to Tawana [...] be discharged after completion documented in [facility] Patient's home Note* SN SOC IV - Betsy Fuentes, JONI - 03/21/2025 12:00 PM EDT SITUATION: Halfway SOC IV visit completed today. spouse and daughter also present during today's visit. patient reports the following: Allergies--reviewed Medications--full medication reconciliation completed and reviewed current medications Falls--None DME-Reviewed and added to chart Advance Directives: Patient does have advance directives. BACKGROUND: Discharged/Referral from [facility] hospital on 03/20/25 following treatment for diverticulitis [...] issues were noted with medication doses. Patient [facility] did not have the dosing correct on her cardiac meds and she was not sure what the doses were without her own med list which she did not have. SN called Dr. Ruth's office who is her mis director with [facility]. Spoke to Tawana [...] the patient can be discharged after completion [facility] Work Phone: [phone]) 356-175107-11-2025 Telephone encounter Note* Telephone Encounter - Corrie Alejandro RN - 03/21/2025 10:07 AM EDT Please review and [facility]07-10-2025 Telephone encounter Note* Telephone Encounter - Zuly Aguilera RN - 03/20/2025 6:39 PM EDTSummary: COPAT ACTION-FOR IDC USE ONLY Images from the original note were not included. 03/20/2025 11:30 AM Elmer Manley OR PROVIDER ADULT [id number] Patient Info Patient Name Sex Neri Alexandra Hawley ([id number]) Female 1955 Encounter Notes Progress Notes by Elmer Manley MD, encounter date 03/20/2025: Progress Notes [facility] Outpatient Parenteral Antimicrobial Therapy (OPAT) Start Form Patient Info Patient MRN Patient Name Address Date of [id number] Alexandra Bella [address] [id number] 1955 Start Date 03/20/2025 Physician Group [facility] Diagnosis Group Diagnosis GI/Hepatobiliary/Peritoneal: Colitis Micro-organism CULTURE [...] on an intermittent IV antibiotic dosing schedule: [facility] method: 1) Administer normal saline 5ml IV to port. 2) Infuse IV antibiotic as ordered. 3) Administer normal saline 5ml IV to port. Labs may be drawn on Monday if Monday is a holiday. 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 Pure hypercholesterolemia Type 2 diabetes mellitus with diabetic polyneuropathy, without long-term current use of insulin Obesity, Class III, BMI >= 40 Sepsis Follow up Provider Follow up date/time Appointment type Elmer Manley MD No Follow Up Provider Monitoring Treatment Course Elmer Manley MD Address [address] [place] [address] Prescribing Provider's signature - electronically signed by Elmer Manley MD on 03/20/25 at 11:31 AM [facility]07-10-2025 Telephone encounter Note* Telephone Encounter - Buzz Vegas RPh - 03/20/2025 3:08 PM EDT Drug-Drug interaction review with homegoing ceftriaxone. tolerating inhouse with PCN allergy. Pended RX set up for e-script Buzz WinPhMounika [facility]07-10-2025 Miscellaneous Notes* Telephone Encounter - Buzz Vegas RPh - 03/20/2025 3:08 PM EDT Drug-Drug interaction review with homegoing ceftriaxone. tolerating inhouse with PCN allergy. Pended RX set up for e-script Buzz Win.Ph. documented in this encounterGeorgetown [facility]al Hospital07-10-2025 NoteHNO ID: [id number] Author: ALEJANDRA SUBRAMANIAN RN Service: Care Management Author Type: Registered Nurse Type: Care Mgt Progress Note Filed: 03/20/2025 14:39 Note Text: CARE MANAGEMENT DISCHARGE NOTE SERVICE DATE: March 20, 2025 SERVICE TIME: 2:37 PM Admission Date: 03/17/2025 LOS: 3 days Discharge Arrangement Discharge Arrangement: Home with Home Health, Home with Relative Services Arranged Medical Services: Skilled Home Health Care Type: Home Health Agency, [facility], Physical Therapy, Occupational Therapy Provider Name: [facility] Home Care Provider Name: [facility] Caregiver Assessment Caregiver is ready, willing and able to meet the patient's needs as recommended by the inter-professional team: Yes Name of Caregiver: [facility] Transportation Arrangements Transportation Arrangements: Car Date of Trip: 03/20/25 Destination: Home Handoff Communication: Handoff to: Primary Care Physician Primary Care Physician Name/Phone: AnoopLeonora, RESTAURANT AREA DIRECTOR.[facility]/ [phone] Discharge Information Row Name Admission (Current) from 03/17/2025 in [facility] Agency [facility] Start of Care 03/21/25 Home Infusion Pharmacy Agency [facility] Phone/ Start of Care -- Pharmacy delivery to your residence this evening. Discharge order is written. [facility] confirmed they can accept for a start of care tomorrow. [facility] confirmed they will deliver the IV antibiotics to the patient's residence this evening. The patient and her spouse were updated at bedside. Both are agreeable to the discharge plan. Spouse to transport home. SIGNATURE: Alejandra Subramanian RN PATIENT NAME: Alexandra Bella DATE: March 20, 2025 TIME: 2:37 PMWyandot Memorial HospitalOuwxkwnl48-35-1916 Telephone encounter Note* Telephone Encounter - Joey Hill - 03/20/2025 2:19 PM EDT Patient was returning phone call transferred to Arlyn Clemens [facility] Work Phone: [phone] Miscellaneous Notes* Telephone Encounter - Joey Hill - 03/20/2025 2:19 PM EDT Patient was returning phone call transferred to Arlyn Clemens documented in this encounterGeorgetown [facility]07-[facility]-2025 Telephone encounter Note * Telephone Encounter - Joon Clemens LPN - 03/20/2025 2:18 PM EDT Spoke to patients spouse to discuss delivery this evening and start of care tomorrow. [facility] Work Phone: [phone] Miscellaneous Notes* Telephone Encounter - Joon Clemens LPN - 03/20/2025 2:18 PM EDT Spoke to patients spouse to discuss delivery this evening and start of care tomorrow. * Telephone Encounter - Joon Clemens LPN - 03/20/2025 1:53 PM EDT CONFIRMATION CALL a. Date and Time: 1:53 PM 03/20/2025 b. Contact name/relationship: Patient C. Service Address- [address] [place] [address] Have you been active with any Home Care company in the last 60 days? No. Caregiver: Yes, spouse (CG must be available for SOC/CARMELLA and the following 3-4 visits or until independent) Joon Clemens LPN documented in this encounterGeorgetown [facility] Hospital07-10-2025 Telephone encounter Note * Telephone Encounter - Joon Clemens LPN - 03/20/2025 1:53 PM EDT CONFIRMATION CALL a. Date and Time: 1:53 PM 03/20/2025 b. Contact name/relationship: Patient C. Service Address- [address] [address] Have you been active with any Home Care company in the last 60 days? No. Caregiver: Yes, spouse (CG must be available for SOC/CARMELLA and the following 3-4 visits or until independent) Joon Clemens LPN [facility]07-10-2025 Telephone encounter Note* Telephone Encounter - Joon Clemens LPN - 03/20/2025 12:11 PM EDT Called office and spoke to Dr. Davalos. Dr. Davalos will follow for home care services at discharge from hospital. [facility] Work Phone: [phone] Miscellaneous Notes* Telephone Encounter - Joon Clemens LPN - 03/20/2025 12:11 PM EDT Called office and spoke to Dr. Davalos. Dr. Davalos will follow for home care services at discharge from hospital. documented in this encounterGeorgetown Behavioral Hospital07-10-2025 NoteHNO ID: [id number] Author: ALEJANDRA SUBRAMANIAN RN Service: Care Management Author Type: Registered Nurse Type: Care Mgt Progress Note Filed: 03/20/2025 12:06 Note Text: CARE MANAGEMENT PROGRESS NOTE SERVICE DATE: 03/20/2025 SERVICE TIME: 11:51 AM LOS: 3 days Needs Prior to Discharge: Home Care Order, IV Antibiotics, Other: See Comment (Medical Clearance) [place] of Choice Given: Yes Level of Care Discussed: Home Care Financial Disclosure Provided: Yes Provider List: Home Care Provider list within the patient's requested geographic area shared with the patient/family: Yes of zip code: [address] Quality and resource use metrics shared with [...] the infusion. She has no preference in HHC or Home Care Pharmacy provider as long as in network with her insurance. Referrals sent to [facility] and [facility]. CM assigned will continue to follow. 1205-[facility] and [facility] can accept. SIGNATURE: Alejandra Subramanian RN PATIENT NAME: Alexandra Bella DATE: March 20, 2025 TIME: 11:51 [facility] HamiltonPkijgdqd94-08-8437 NoteHNO ID: [id number] Author: ELMER MANLEY MD Service: ? Author Type: Physician Type: Progress Notes Filed: 03/20/2025 11:31 Note Text: [facility] Outpatient Parenteral Antimicrobial Therapy (OPAT) Start Form Patient Info Patient MRN Patient Name Address Date of [id number] Alexandra Bella [address] [id number] 1955 Start Date 03/20/2025 Physician Group [facility] Diagnosis Group Diagnosis GI/Hepatobiliary/Peritoneal: Colitis Micro-organism CULTURE [...] on an intermittent IV antibiotic dosing schedule: [facility] method: 1) Administer normal saline 5ml IV to port. 2) Infuse IV antibiotic as ordered. 3) Administer normal saline 5ml IV to port. Labs may be drawn on Monday if Monday is a holiday. 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 therapy MCC current use of anticoagulant Pure hypercholesterolemia Type 2 diabetes mellitus with diabetic polyneuropathy, without long-term current use of insulin Obesity, Class III, BMI >= 40 Sepsis Follow up Provider Follow up date/time Appointment type Elmer Manley MD No Follow Up Provider Monitoring Treatment Course Elmer Manley MD Address [address], [address], [place] [address] Prescribing Provider's signature - electronically signed by Elmer Manley MD on 03/20/25 at 11:31 AMWyandot Memorial [id number] History of Present illness Narrative* Elmer Manley MD - 03/20/2025 11:30 AM EDT Images from the original note were not included. [facility] Parenteral Antimicrobial Therapy (OPAT) Start Form Patient Info Patient MRN Patient Name Address Date of [id number] Alexandra Hawley Neri [address] [id number] 1955 Start Date 03/20/2025 Physician Group [facility] Diagnosis Group Diagnosis GI/Hepatobiliary/Peritoneal: Colitis Micro-organism CULTURE [...] on an intermittent IV antibiotic dosing schedule: [facility] method: 1) Administer normal saline 5ml IV to port. 2) Infuse IV antibiotic as ordered. 3) Administer normal saline 5ml IV to port. Labs may be drawn on Monday if Monday is a holiday. 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 therapy MCC current use of anticoagulant Pure hypercholesterolemia Type 2 diabetes mellitus with diabetic polyneuropathy, without long-term current use of insulin Obesity, Class III, BMI >= 40 Sepsis Follow up Provider Follow up date/time Appointment type Elmer Manley MD No Follow Up Provider Monitoring Treatment Course Elmer Manley MD Address [address] [place] [address], [address], [place] [address] Prescribing Provider's signature - electronically signed by Elmer Manley MD on 03/20/25 at 11:31 AM documented in this encounterGeorgetown [facility] Hospital07-09-2025 NoteHNO ID: [id number] Author: JOSEFA HANKINS MD Service: Hospital Medicine Author Type: Physician Type: Progress Notes Filed: 03/19/2025 18:14 Note Text: DEPARTMENT OF HOSPITAL MEDICINE PROGRESS NOTE SERVICE DATE: 03/19/2025 SERVICE TIME: 6:01 PM Hospital Medicine/Primary Attending: Josefa Hankins MD NIGHT AND WEEKEND COVERAGE: MODALE COVERAGE: Days: [phone], please page attending physician. Nights: [phone], please page [place] Hospitalist Night coverage pager [phone]. Subjective INTERVAL HPI: Denied chest pain, Shortness [...] (Src) 97.8 (Axillary) Resp 16 Ht 5' 3 (1.60m) Wt 276 lb 10.8 oz (125.5kg) [...] and Airways Line Duration Peripheral 03/18/25 1043 [facility] Short Right Forearm 20 Gauge 1 day Peripheral 03/18/25 1435 [facility] Long Right Arm 20 Gauge 1 day Central Line Single Lumen 03/19/25 1602 Peripherally Inserted (PICC) Right Arm 4.0 Tajik <1 day Reviewed lines and needs to [...] CPAP Postoperative hypothyroidism Essential hypertension Rheumatoid arthritis ([facility]) Atrial fibrillation (HCC) Chronic diastolic CHF (congestive heart failure) ([facility]) 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 History of DVT (deep vein thrombosis) Encounter for monitoring flecainide therapy curriculum assistant 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 use of anticoagulant Pure hypercholesterolemia Type 2 diabetes mellitus with diabetic polyneuropathy, without long-term current use of insulin ([facility]) Obesity, Class III, BMI >= 40 Sepsis (HCC) Hx of diverticulitis of colon Chest pressure HOSPITAL COURSE: Alexandra Bella is a 69 year old female presented with past medical history of Breast Cancer s/p partial left mastectomy (more content not included)...[facility] HospitalPlhlimii45-22-3379 NoteHNO ID: [id number] Author: EMILY DALAL RN Service: Nursing Author Type: Registered Nurse Type: Procedures Filed: 03/19/2025 16:01 Note Text: PICC NURSE INSERTION NOTE DATE OF PROCEDURE: March 19, 2025 TIME OF PROCEDURE: 1500 ORDERING PHYSICIAN: Dr Manley INFORMED CONSENT: Obtained per hospital policy. INDICATION FOR LINE PLACEMENT: COPAT CONDITION OF LINE PLACEMENT: Sterile PRIMARY PROCEDURALIST: Cynthia De RN SNAP ATTACHER: Emily Dalal RN PRE-PROCEDURE REVIEW ALLERGIES Allergen [...] nurse for hospitalized patients). CATHETER PLACEMENT Brand: XOXO Kitchen Lot: [id number] Number of Lumens: 1 Type of PICC: Power Injectable PICC Lumen Size: 4 Tajik PLACEMENT TECHNIQUE Lidocaine: Yes, Lidocaine 1% Volume [...] Patient Education Materials: Placed in chart [facility] Central Line Insertion checklist was utilized during this procedure. QUESTIONS or PROBLEMS: If you have any questions, please call the [facility] Interventional Radiology department at [phone], option #2. SIGNATURE: Emily Dalal RN PATIENT NAME: Alexandra GAMBLE (more content not included)...[facility] HospitalLqfzbnux33-78-6659 NoteHNO ID: [id number] Author: EMILY DALAL RN Service: Nursing Author [...] (RECOMMENDATION): None Electronically Signed By Emily Dalal RNWyandot Memorial HospitalYurgezvx87-89-8809 NoteHNO ID: [id number] Author: JANE BELLAMY MD Service: Hospital Medicine [...] and let pharmacy know if desired. [facility] NoteHNO ID: [id number] Author: NIRALI MARTINEZ MD Service: Hospital Medicine Author Type: Physician Type: Progress Notes Filed: 03/19/2025 07:57 Note Text: DEPARTMENT OF HOSPITAL MEDICINE PROGRESS NOTE SERVICE DATE: 03/18/2025 SERVICE TIME: 2:46 PM Hospital Medicine/Primary Attending: Nirali Martinez MD NIGHT AND WEEKEND COVERAGE: MODALE COVERAGE: Days: [phone], please page attending physician. Nights: [phone], please page [place] Hospitalist Night coverage pager [phone]. 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 Makayla conrad (more content not included)...[facility] HospitalNbgzatfg97-68-0220 NoteHNO ID: [id number] Author: ALEJANDRA SUBRAMANIAN RN Service: Care Management Author Type: Registered Nurse Type: Care Mgt Initial Assessment Filed: 03/18/2025 15:59 Note Text: CARE MANAGEMENT: ASSESSMENT AND DISCHARGE PLAN SERVICE DATE: March 18, 2025 SERVICE TIME: 3:55 PM PCP: Leonora Davalos APRN.CNP Primary Contact: Extended Emergency Contact Information Primary Emergency Contact: Dilma Bella Address: [address] [place] [address] Mobile Relation: Spouse Admission Status: Inpatient Insurance Provider[place] Sanjana [place] [facility] Discharge Planning requested by: Per Department Practice Potential Transition Plans Home, Home Care, Home Care Pharmacy, To Be Determined Advance Directives Current Advance Directive: Living Will, Health Care Power of Bottom Sprayer In Chart: No Current Living Arrangements and [...] Be able to go home, Less pain [place] of Choice Explained: [place] of Choice Given: No Reason Not Given: [...] and was independent with ADL's and IADL's 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 She uses an electric scooter PRN when outside of the home. Otherwise no DME for mobility. Discharge antibiotic needs to be determined. CM assigned will continue to follow. SIGNATURE: Alejandra Subramanian RN PATIENT NAME: Alexandra Bella DATE: March 18, 2025 TIME: 3:55 PMWyandot Memorial HospitalPjgkcsxm53-98-7993 Telephone encounter Note* Telephone Encounter - Hailey Ocampo RN - 03/18/2025 1:58 PM EDT [facility]. Hailey Ocampo RN Per H & P: Acute diverticulitis (POA: Yes) --Presented to [facility] ED for evaluation of abdominal pain --CT AP with inflammatory changes surrounding a 2 cm outpouching in the mid sigmoid colon suggestive of diverticulitis although difficult to assess for possible abscess. --IV Rocephin and Flagyl --NPO, IVF --Holding Eliquis --Heparin gtt as below --Pain control --Serial ABD exams --General Surgery consulted [facility]07-08-2025 Telephone encounter Note* Telephone Encounter - Rosy [...] them x 10 days. Rosy Esteban MD [facility]07-07-2025 Telephone encounter Note* Telephone Encounter - Ashley Rosario LPN - 03/17/2025 12:01 PM EDT Please review Coherent Patht message and please advise. Thank You Ashley Rosario LPN [facility]06-12-2025 Evaluation note* Diagnosis Onset Date Resolution Status Admit Date Pharyngitis acute February 20 5:36pm Left otitis media resolved February 202024 5:36pm Cough acute April 22, 025 8:19am GERD (gastroesophageal reflu x disease) acute April 22 8:19am Dyspnea on exertion chronic Augus t 2024 8:19am Obesity chronic April 22 025 8:19am Sleep apnea chronic April 22, 2025 8:19am [facility] Work Phone: 1([phone]) 190-368605-28-2025 Radiology Diagnostic study [facility]05-16-2025 Radiology Diagnostic study note [facility] Imaging Services [address] [place] [address] [id number] Chest without Contrast MR#: [id number] Acct: [id number] Name: ALEXANDRA BELLA Chi Rep #: [id number] : [id number] F 69 From: Artemio Mccann MD PCP: VANESSA Gilliland Status: REG CLI Study:Chest without Contrast Date of Exam: 01/24/25 Exam# [id number] Ordering Dr: Ada Wheeler CRITICAL CARE RN-C PROCEDURE: CHEST WITHOUT CONTRAST 01/24/2025 REASON FOR [...] of the right middle lobe. Reading Location: [id number] CC: VANESSA Davalos; Ada Wheeler NP ~ [place] Inspector Repairer: Signed [facility]05-09-2025 History of Present illness Narrative* Eliceo Ambriz APRN.SPOOL MAKER - 01/17/2025 7:30 AM EDT Reason for Consultation: DM Type 2 Referring Physician: Leonora Davalos ([place]) [address] [address] *visit is being conducted virtually today *I have communicated my name and active licensure. The patient's identity and physical location were verified at the time of this visit. Either the patient or their legal client care representative has been informed of the risks and [...] about age 65. [address] 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 It required patient- provider interaction for the medical decision making as documented above. Eliceo Ambriz, MSN, RESTAURANT AREA DIRECTOR, CRITICAL CARE RN-C, [facility] Endocrinology [facility] Medical Office Building/South [address] [place] [address], [address] [place], [place] [address] Fax: documented in this encounterGeorgetown Behavioral Hospital05-09-2025 NoteHNO ID: [id number] Author: ELICEO AMBRIZ APRN.SERVANDO Service: ? Author Type: Nurse Practitioner Type: Progress Notes Filed: 01/17/2025 07:55 Note Text: Reason for Consultation: DM Type 2 Referring Physician: Leonora Davalos (Lyndon) [address] [address] *visit is being conducted virtually today *I have communicated my name and active licensure. The patient's identity and physical location were verified at the time of this visit. Either the patient or their legal client care representative has been informed of the risks and [...] about age [address] Decker 11/08/24 A1C 7.2 on 11/12/24 History of [...] polyps-. Non-bleeding erosive gastropathy. (more content not included)...[facility]05-02-2025 Evaluation note* Diagnosis Onset Date Resolution [...] Left otitis media resolved February 202024 5:36pm [facility] Work Phone: 1(189) 564-696204-21-2025 Telephone encounter Note* Telephone Encounter - Marissa Tim RN - 12/30/2024 4:02 PM EDT Received a VM from Lia herman [facility] asking for a new RX stating that they needed a new RX for the Synthroid. Per [facility] the the RX needs to be generic because her insurance does not cover brand but [facility] does fill for brand any ways. Please resend. Attached is RX. Thank you [facility]04-21-2025 Miscellaneous Notes* Telephone Encounter - Marissa Tim RN - 12/30/2024 4:02 PM EDT Received a VM from Lia at [facility] asking for a new RX stating that they needed a new RX for the Synthroid. Per [facility] the the RX needs to be generic because her insurance does not cover brand but [facility] does fill for brand any ways. Please resend. Attached is RX. Thank you documented in this encounterGe[facility]04-18-2025 Telephone encounter Note * Telephone Encounter - Marissa Tim RN - 12/27/2024 12:04 PM EDT Addressed in an another encounter. Closed [facility]04-18-2025 Miscellaneous Notes* Telephone Encounter - Marissa Tim RN - 12/27/2024 12:04 PM EDT Addressed in an another encounter. Closed * Telephone Encounter - Marissa Tim RN - 12/12/2024 9:47 AM EDT Please review and advise. DAJUAN: 11/08/24 NOV: 01/17/25 documented in this encounterGeorgetown [facility]04-03-2025 Telephone encounter Note * Telephone Encounter - Marissa Tim RN - 12/12/2024 9:47 AM EDT Please review and advise. DAJUAN: 11/08/24 NOV: 01/17/25 [facility]03-29-2025 Radiology Diagnostic study [facility]03-05-2025 Evaluation note* Diagnosis Onset Date Resolution Status Admit Date Chronic diastolic (congestiv e) heart failure chronic November 13, 2024 9:49am Dyspnea on exertion November 13, 2024 9:49am Morbid obesity with BMI of 45.0-49.9, adult chronic November 13, 2024 9:49am Paroxysmal atrial fibrillation chron November 13, 2024 9:49am Pure hypercholesterolemia November 13, 2024 9:49am Bilateral acute otitis [...] Sleep apnea chronic January 10, 2025 2:35pm [facility] Work Phone: 1([phone]) 995-672903-05-2025 Evaluation note* Diagnosis Onset Date Resolution Status Admit Date Chronic diastolic (congestiv e) heart failure chronic November 13, 2024 9:49am Dyspnea on exertion November 13, 2024 9:49am Morbid obesity with BMI of 45.0-49.9, adult chronic November 13, 2024 9:49am Paroxysmal atrial fibrillation [facility] November 13, 2024 9:49am Pure hypercholesterolemia chronic [...] x disease) acute January 23, 2025 7:26am [facility] Work Phone: 1(735) 670-875703-05-2025 Evaluation note* Diagnosis Onset Date Resolution Status [...] 7:26am Fatty liver chronic January 23 7:26am [facility] Work Phone: 1(506) 924-272202-28-2025 History of Present illness Narrative* Eliceo Ambriz APRN.SPOOL MAKER - 11/08/2024 7:30 AM EST Reason for Consultation: DM Type 2 Referring Physician: Leonora Davalos (Lyndon) [address] [facility] [address] [facility] [address] *visit is being conducted virtually today *I have communicated my name and active licensure. The patient's identity and physical location were verified at the time of this visit. Either the patient or their legal client care representative has been informed of the risks and [...] breast PAST SURGICAL HISTORY OF 07/2008 had fatty tumor removed from back PAST SURGICAL HISTORY OF [...] 04/17/2024 7.5 ) No components found for: URINEALBUMIN Cholesterol, Total (mg/dL) Date Value 05/03/2023 223 [...] or next Follow up in 3 months CRITICAL CARE RN Pb (E89.0) Postoperative hypothyroidism Comment: She has [...] an ARB (I25.10) 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 Comment/Plan: per cardiology Medical Decision Making: Level: 4 - Moderate This Team Access Model visit is a virtual encounter. It required patient- provider interaction for the medical decision making as documented above. Eliceo Ambriz, MSN, RESTAURANT AREA DIRECTOR, CRITICAL CARE RN-C, [facility] Endocrinology [facility] Medical Office [facility]/[address], [address] [place] [address] Fax: documented in this encounterGeorgetown Behavioral Hospital02-28-2025 NoteHNO ID: [id number] Author: ELICEO AMBRIZ APRN.SPOOL MAKER Service: ? Author Type: Nurse Practitioner Type: Progress Notes Filed: 11/08/2024 08:03 Note Text: Reason for Consultation: DM Type 2 Referring Physician: Leonora Davalos (Lyndon) [address] [facility] [address] [facility] [address] *visit is being conducted virtually today *I have communicated my name and active licensure. The patient's identity and physical location were verified at the time of this visit. Either the patient or their legal client care representative has been informed of the risks and [...] Dr. Esteban-[facility]. Multiple (more content not included)...[facility]02-25-2025 Telephone encounter Note* Telephone Encounter - Eliceo Ambriz APRN.CNP - 11/05/2024 4:36 PM EST Noted and agree Thank you [facility]02-25-2025 Miscellaneous Notes* Telephone Encounter - Eliceo Ambriz [...] to discuss symptoms and medication use, call [phone]. documented in this encounterGeorgetown Behavioral Hospital02-25-2025 Telephone encounter Note * Telephone Encounter - [...] verbalized understanding and all questions were answered. [facility]02-24-2025 Telephone encounter Note* Telephone Encounter - Corrie Hall - 11/04/2024 10:44 AM EST PT has had the flu with vomiting and diarrhea x 4 days. PT stopped taking her diabetes medication on evening due to symptoms. PT is requesting a return to discuss symptoms and medication use, call [phone]. [facility]02-17-2025 Telephone encounter Note* Telephone Encounter - Joaquin Belel - 10/28/2024 5:00 PM EST Name of caller: Alexandra Bella Relation to patient: patient Contact phone number: [phone] Appointment scheduled with: Dr. Michelle Appointment date [...] aware of: heart pt & diabetic . [id number] Miscellaneous Notes* Telephone Encounter - Joaquin Belle - 10/28/2024 5:00 PM EST Name of caller: Alexandra Bella Relation to patient: patient Contact phone number: [phone] Appointment scheduled with: Dr. Michelle Appointment date [...] pt & diabetic . documented in this [facility]02-11-2025 Telephone encounter Note* Telephone Encounter - Joy De La Garza - 10/22/2024 11:07 AM EST Patient is added to the wait list [facility]02-11-2025 Miscellaneous Notes* Telephone Encounter - Joy De [...] would like the Brand Synthroid sent to [facility]. I did speak with patient about appointment [...] she would greatly appreciate it. Please call [phone]. Patient also states she will prob need a short script sent to her local pharmacy so she is n ot without. She will use [facility] until the [facility] can be worked out. documented in this encounterGeorgetown Behavioral Hospital02-11-2025 Telephone encounter Note * Telephone Encounter - Neema Berman MA - 10/22/2024 11:01 AM EST PSS: Can you make sure patient is added to wait list and if she is not please add. [facility]02-11-2025 Telephone encounter Note* Telephone Encounter - Neema [...] would like the Brand Synthroid sent to [facility]. I did speak with patient about appointment and I am going to have PSS add patient to wait list. She is fine with keeping the 11/11/24 appointment. Send pended RX below. Thank you [facility]02-10-2025 Telephone encounter Note* Telephone Encounter - Chanel [...] she would greatly appreciate it. Please call [phone]. Patient also states she will prob need a short script sent to her local pharmacy so she is n ot without. She will use [facility] until the [facility] can be worked out. [facility]01-29-2025 Telephone encounter Note* Telephone Encounter - Eliceo Ambriz APRN.CNP - 10/09/2024 5:32 PM EST Addressed in alt encounter [facility]01-29-2025 Miscellaneous Notes* Telephone Encounter - Eliceo Ambriz [...] insurance. Pended RX below. documented in this encounterGeorgetown Behavioral Hospital01-29-2025 Telephone encounter Note * Telephone Encounter - [...] Please review and advise. Corrie Alejandro RN [facility]01-29-2025 Miscellaneous Notes* Telephone Encounter - Corrie Alejandro [...] advise. Corrie Alejandro RN documented in this encounterGeorgetown Behavioral Hospital01-29-2025 Miscellaneous Notes* Telephone Encounter - Karma Mcdermott MA - [...] 09, 2024 8:40 AM documented in this encounterGeorgetown Behavioral Hospital01-29-2025 Telephone encounter Note * Telephone Encounter - [...] Mcdermott MA October 09, 2024 8:40 AM [facility]01-27-2025 Telephone encounter Note* Telephone Encounter - Neema [...] and resubmit to insurance. Pended RX below. [facility]01-16-2025 Telephone encounter Note* Telephone Encounter - Neema [...] know what she wants to do. CLOSED [facility]01-16-2025 Miscellaneous Notes* Telephone Encounter - Neema Berman [...] 10:45 AM EST Called patient's home/cell# at [phone], left voice message to call office at [phone], andask to speak to the nurse. * Telephone Encounter - Vaughn Decker MD - 09/25/2024 3:49 PM EST Ok to switch to levothyroxine at the same dose. If you could let the patient know HH * Telephone Encounter - Corrie Alejandro RN - 09/24/2024 2:19 PM EST Received a faxed notification from [facility] that patient has been prescribed Synthroid historically. [...] products such as Levothyroxine. documented in this encounterGeorgetown Behavioral Hospital01-16-2025 Telephone encounter Note * Telephone Encounter - Corrie Alejandro RN - 09/26/2024 10:45 AM EST Called patient's home/cell# at [phone], left voice message to call office at [phone], andask to speak to the nurse. [facility]01-15-2025 Telephone encounter Note* Telephone Encounter - Vaughn Decker MD - 09/25/2024 3:49 PM EST Ok to switch to levothyroxine at the same dose. If you could let the patient know HH [facility]01-14-2025 Telephone encounter Note* Telephone Encounter - Corrie Alejandro RN - 09/24/2024 2:19 PM EST Received a faxed notification from [facility] that patient has been prescribed Synthroid historically. [...] switch to formulary products such as Levothyroxine. [facility]12-31-2024 NoteHNO ID: [id number] Author: ROYER FERGUSON PA-C Service: ? Author Type: Physician Director Of Workforce Development Type: Progress Notes Filed: 09/10/2024 09:02 Note [...] wall pain 07/17/2016 Multiple gastric ulcers 2020 [place]IL[place] (obstructive sleep apnea) 08/24/2018 Other hyperlipidemia 08/24/2018 [...] knee joint Informed Consent Consent Obtained: Verbal [place] Protocol A moment to CARE was completed. SIGN IN Personnel directly involved with the procedure wore the appropriate PPE. Special Equipment: N/A Patient/Surrogate Stated/Verified: Patient name, Date of , Relevant allergies and Intended procedure TIME OUT Intended patient and procedure match the source document(s). Consent documented and matches the intended procedure. Relevant labs, photos, and/or imaging studies have been reviewed. (more content not included)...[facility]12-31-2024 History of Present illness Narrative* Royer [...] knee joint Informed Consent Consent Obtained: Verbal [place] Protocol A moment to CARE was completed. [...] which included preparing to see the patient, gids-nj-grsl patient care, completing clinical documentation, performing a medically appropriate examination, counseling and educating the patient/family/caregiver, ordering medications, tests, or p rocedures, and communicating results to the patient/family/caregiver. Royer Ferguson PA-C, [facility]ecil documented in this encounterGeorgetown Behavioral Hospital12-24-2024 NoteHNO ID: [id number] Author: ROYER FERGUSON PA-C Service: ? Author Type: Physician Director Of Workforce Development Type: Progress Notes Filed: 09/10/2024 09:00 Note [...] knee joint Informed Consent Consent Obtained: Verbal [place] Protocol A moment to CARE was completed. [...] the patient voiced underst (more content not included)...[facility] 09-03-2024 History of Present illness Narrative* [...] knee joints Informed Consent Consent Obtained: Verbal [place] Protocol A moment to CARE was completed. [...] which included preparing to see the patient, hzzg-kv-zuej patient care, completing clinical documentation, performing a medically appropriate examination, counseling and educating the patient/family/caregiver, ordering medications, tests, or p rocedures, and communicating results to the patient/family/caregiver. Royer Ferguson PA-C, MPAS documented in this encounterGeorgetown Behavioral Hospital12-23-2024 NotePap Smear Specimen AdequacyDecember 2023 12:59amComment.Satisfactory for evaluation. No endocervical component is identified.[facility]ACED A#[id number] HealthComment on above:Satisfactory for evaluation. 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 Medic are patient acute September 02, 024 9:29am History of left breast cancer [...] 7:16pm Bronchitis, acute acute November 092024 7:16pm [facility] Work Phone: 1(626) 246-148312-23-2024 Evaluation note* Diagnosis Onset Date Resolution Status Admit Date FLO III (cervical intraepithelial neoplasia grade III) with severe dysplasia acute Decem 2023 9:29am 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 Medic are patient acute September 02, 9:29am History of left breast cancer acute [...] h hyperglycemia acute December 04, 2024 3:06pm [facility] Work Phone: 1(357) 595-560512-17-2024 NoteHNO ID: [id number] Author: ROYER FERGUSON PA-C Service: ? Author Type: Physician Director Of Workforce Development Type: Progress Notes Filed: 08/27/2024 09:02 Note Text: CHIEF COMPLAINT: Alexandra Bella is a 68 year old female who presents today for left knee pain/ Euflexxa injections PAIN EVALUATION 08/23/20245 Pain Level: 6 Description: Aching;Sore;Stiffness;Tenderness;Throbbing;Tightness Duration Units: [...] knee joint Informed Consent Consent Obtained: Verbal [place] Protocol A moment to CARE was completed. [...] 08/27/2024 9:02 AM Th (more content not included)...[facility]12-17-2024 History of Present illness Narrative* Royer [...] knee joint Informed Consent Consent Obtained: Verbal [place] Protocol A moment to CARE was completed. [...] which included preparing to see the patient, ohcq-fm-dvqn patient care, completing clinical documentation, performing a medically appropriate examination, counseling and educating the patient/family/caregiver, ordering medications, tests, or p rocedures, and communicating results to the patient/family/caregiver. Royer Ferguson PA-C, [facility] documented in this encounterGeorgetown Behavioral Hospital11-27-2024 NoteHNO ID: [id number] Author: ROYER FERGUSON PA-C Service: ? Author Type: Physician Director Of Workforce Development Type: Progress Notes Filed: 08/09/2024 08:20 Note [...] at end range of flexion due to pressure and tightness Quadriceps examination full (5/5) quadriceps strength bilaterally without signs of atrophy Patellar examination Decreased patellar mobility Positive patellar grind testing Tenderness medial joint line and popliteal fossa Meniscus difficult to assess secondary to pain Stability Collateral and cruciate knee ligaments (ACL/PCL/LCL/MCL) are all intact with no significant laxity noted bilaterally IMAGING: Final results and radiologist's interpretation, available in the [facility] health record. Images were reviewed with the patient/family members in the office today. My personal interpretation of the performed imaging is chronic degenerative changes. CLINICAL IMPRESSION / ASSESSMENT: (M17.12) Primary osteoarthritis of left knee (primary encounter diagnosis) (Z68.43) BMI 50.0-59.9, adult ([facility]) (R73.09) Elevated hemoglobin A1c RECOMMENDATION / (more content not included)...[facility] 08-07-2024 History of Present illness Narrative* [...] at end range of flexion due to pressure and tightness Quadriceps examination full (5/5) quadriceps strength bilaterally without signs of atrophy Patellar examination Decreased patellar mobility Positive patellar grind testing Tenderness medial joint line and popliteal fossa Meniscus difficult to assess secondary to pain Stability Collateral and cruciate knee ligaments (ACL/PCL/LCL/MCL) are all intact with no significant laxity noted bilaterally IMAGING: Final results and radiologist's interpretation, available in the [facility] health record. Images were reviewed with the patient/family members in the office today. My personal interpretation of the performed imaging is chronic degenerative changes. CLINICAL IMPRESSION / ASSESSMENT: (M17.12) Primary osteoarthritis of left knee (primary encounter diagnosis) (Z68.43) BMI 50.0-59.9, adult ([facility]) (R73.09) Elevated hemoglobin A1c RECOMMENDATION / [...] which included preparing to see the patient, dvjs-vm-thpq patient care, completing clinical documentation, performing a medically appropriate examination, counseling and educating the patient/family/caregiver, ordering medications, tests, or p rocedures, and communicating results to the patient/family/caregiver. Royer Ferguson PA-C, MPAS documented in this encounterGeorgetown Behavioral Hospital11-27-2024 History of Present illness Narrative* Kevin Gutierrez [...] PATIENT PRESENTS WITH AN IMPLANTABLE OR ATTACHED CELL ROOM SUPERVISOR: No RADIOLOGY DEPARTMENT: General X-ray: Exam(s) Completed: Lower Extremity X- Ray(s): Knee, AP / Lat / Tunne / Merchant Left PERIPHERAL IV DATA: Not applicable SIGNED BY: TIFFANIE BENITEZ(R) August 07, 2024 10:30 AM documented in this encounterGeorgetown Behavioral Hospital11-27-2024 NoteHNO ID: [id number] Author: KEVIN GUTIERREZ RT(R) Service: ? Author [...] PATIENT PRESENTS WITH AN IMPLANTABLE OR ATTACHED CELL ROOM SUPERVISOR: No RADIOLOGY DEPARTMENT: General X-ray: Exam(s) Completed: Lower Extremity X-Ray(s): Knee, AP / Lat / Tunne / Merchant Left PERIPHERAL IV DATA: Not applicable SIGNED BY: TIFFANIE BENITEZ(R) August 07, 2024 10:30 [facility]09-11-2024 History of Present illness Narrative* Vaughn Decker [...] days Vaughn Decker MD documented in this encounterGeorgetown Behavioral Hospital09-11-2024 Note* Addendum Note - Vaughn Decker MD - 05/22/2024 10:00 AM EDTAddended by: VAUGHN DECKER on: 05/22/2024 10:00 AM Modules accepted: Orders [facility]09-11-2024 Miscellaneous Notes* Addendum Note - Vaughn Decker MD - 05/22/2024 10:00 AM EDTAddended by: VAUGHN DECKER on: 05/22/2024 10:00 AM Modules accepted: Orders documented in this encounterGeorgetown Behavioral Hospital09-11-2024 History of Present illness Narrative* Kevin Garcia RN - 05/22/2024 9:30 AM EDT Patient completed 10 day wear of the CGM for diagnostic purposes. * Corrie Escalona MA - 05/22/2024 9:17 AM EDT Images from the original note were not included. documented in this encounterGeorgetown Behavioral Hospital09-06-2024 Telephone encounter Note * Telephone Encounter - Kevin Garcia RN - 05/17/2024 12:25 PM EDT Patient sent a message that she was out of refills when she went to her drugstore for test strips. [facility] Work Phone: 1(363) 834-433809-06-2024 Miscellaneous Notes* Telephone Encounter - Kevin Garcia RN - 05/17/2024 12:25 PM EDT Patient sent a message that she was out of refills when she went to her drugstore for test strips. documented in this encounterGeorgetown Behavioral Hospital08-28-2024 History of Present illness Narrative* Kevin Garcia RN - 05/08/2024 9:44 AM EDT DIABETES CARE AND EDUCATION VISIT Location: [place] Type of visit: In person individual PATIENT'S MAIN CONCERN TODAY: Dexcom G7 diagnostic cgm Support person present for education today: none Cognitive ability: Alert and oriented Motivation to learn: Interested Learning barriers identified by educator: none Method of instruction: written, verbal, and demonstration DIABETES FINDINGS: Monitoring: started on a Dexcom G7 for Diagnostic CGM purposes with G7 Personal Investment Adviser HANDOUTS: Healthy You: Survival Skills and Healthy [...] 2024 TIME: 9:44 AM documented in this encounterGeorgetown Behavioral Hospital08-07-2024 Instructions* Patient Instructions* Vaughn Decker MD - 04/17/2024 5:02 PM EDT - Continue glipizide 5 mg half tab twice a day - please check your blood sugar once a day, sometimes fasting, and sometimes 2 hours after eating ameal - will place a continuous glucose monitor to get more glucose data - follow up in 6 months documented in this encounterGeorgetown Behavioral Hospital08-07-2024 Procedure note* Karma Mcdermott MA - 04/17/2024 4:47 PM EDTProcedure(s): EXTERNAL FEATHER DUSTER WINDER, CGM SYS Images from the original note were not included. [facility]08-07-2024 Procedure note* Karma Mcdermott MA - 04/17/2024 4:47 PM EDTProcedure(s): EXTERNAL FEATHER DUSTER WINDER, CGM SYS Images from the original note were not included. 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 You may find errors that were missed during proofreading. They are purely unintentional and if there are any concerns regarding this dictation, please do not hesitate to contact the dictating provider for clarification. Vaughn Decker MD documented in this encounterGeorgetown Behavioral Hospital07-31-2024 Telephone encounter Note * Telephone Encounter - [...] she has liver cirrhosis or not. Thanks oRsy [facility] Work Phone: 1(603) 655-714507-31-2024 Miscellaneous Notes* Telephone Encounter - Hailey Ocampo [...] or not. 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 RedmondHH. D2-unremarkable. Stomach body Bx-mild reactive gastropathy, HP [...] 07/2008: PAST SURGICAL HISTORY OF Comment: had fatty tumor removed from back 01/02/2012: PAST SURGICAL HISTORY [...] NIDDM Lancing Device (LANCING DEVICE WITH LANCETS) [facility] Lancet device for one touch delica lancets; [...] in her diseases. I spent at least 40-29-yvynyx counseling her about the importance of doing [...] intraoperative liver biopsy. 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 I spent at least 06-24-wdzkvt counseling her about the importance of doing [...] Rosy Esteban MD, FACP documented in this encounterGe[facility]07-12-[facility] History of Present illness Narrative* Tawana Levine TECHNOLOGIST - 03/22/2024 9:00 AM EDT Radiology [...] PATIENT PRESENTS WITH AN IMPLANTABLE OR ATTACHED CELL ROOM SUPERVISOR: No RADIOLOGY DEPARTMENT: Ultrasound PERIPHERAL IV DATA: Not applicable SIGNED BY: TECHNOLOGIST Ronn March 22, 2024 9:39 AM documented in this encounterGeorgetown [facility]al Hospital07-11-2024 Telephone encounter Note * Telephone Encounter - [...] BRAT diet fornow. Can advance to soft. [facility]07-11-2024 Miscellaneous Notes* Telephone Encounter - Uriah Mueller [...] Can advance to soft. documented in this encounterGeorgetown Behavioral Hospital07-09-2024 History of Present illness Narrative* Solitario Solomon [...] PATIENT PRESENTS WITH AN IMPLANTABLE OR ATTACHED CELL ROOM SUPERVISOR: No ALLERGIES: Reviewed and unchanged CONTRAST ALLERGY: [...] 2024 TIME: 1:05 PM documented in this encounterGeorgetown Behavioral Hospital07-08-2024 Telephone encounter Note * Telephone Encounter - Elzbieta Barth - 03/18/2024 3:38 PM EDT Pt called in and scheduled. Also scheduled CT and US. [facility]07-08-2024 Miscellaneous Notes* Telephone Encounter - Elzbieta Barth [...] fibrosis. Rosy Esteban MD documented in this encounterGeorgetown Behavioral Hospital07-08-2024 Telephone encounter Note * Telephone Encounter - Hailey Ocampo RN - 03/18/2024 3:21 PM EDT Pt can be scheduled on 04/10/2024. Thank you, Hailey Ocampo RN [facility] Work Phone: 1(769) 930-215507-08-2024 Telephone encounter Note* Telephone Encounter - Brynn Patel - 03/18/2024 3:19 PM EDT Should patient be scheduled in pancreas/biliary slot or double booked on regular clinic day? [facility]07-08-2024 Telephone encounter Note* Telephone Encounter - Hailey Ocampo RN - 03/18/2024 11:15 AM EDT Pt read [employer] msg. Schedulers, please schedule OV as indicated below. Thank you, Hailey Ocampo RN [facility]07-08-2024 Telephone encounter Note* Telephone Encounter - Hailey [...] steatohepatitis with bridging fibrosis. Rosy Esteban MD [facility]07-01-2024 History of Present illness Narrative* Joon Bustillos, SHARLA.SPOOL MAKER - 03/11/2024 1:19 PM EDT Patient fasting [...] consider further testing toconfirm. Joon Bustillos APRN.SERVANDO ALMEIDA Fibroscan Fibrosis Risk <7 kPA = F0-F2 [...] Int J Clin Exp Med. 2015 Jun 25;8(10):07535-39.PMID: [id number]; PMCID: [id number]. Butch Hawley, Briana BEACH, Kandice Hawley, Hany F, Aliza J, Alessandro O, Jason F, Gulshan M, Shad G, Justin A, Mikael E, Alphonso L, Chloé G, Tomasz A, Aliyah U, Andi S, Juliana, Rajan V, Dan V, Darshan M, Floyd NAIK. Refining the Baveno elastography criteria for the definition of compensated advanced chronic liver disease. J Hepatol. 2020;74(5):7942-4935. doi: 10.1016/j.jhep.2020.11.050. Epub 2019Aug 19. PMID: 87934742. Alley Hawley, Colt Chang, Rony Hawley, Leila Hawley, Daniela S, Gloria Glynn, Nicholas Glynn, Darin Adam.AASLD practice guidance on the clinical assessment and management of nonalcoholic fatty liver disease. Hepatology. 2022;77(5):1797- 1835. doi:10.1097/HEP.[id number] documented in this encounterGeorgetown Behavioral Hospital07-01-2024 History of Present illness Narrative* Uriah Mueller [...] of abdominal pain. Pertinent Workup to Date: LS 04/2022 Carlito- MASH with bridging fibrosis on [...] breast PAST SURGICAL HISTORY OF 07/2008 had fatty tumor removed from back PAST SURGICAL HISTORY OF [...] 0 Lancing Device (LANCING DEVICE WITH LANCETS) [facility] Lancet device for one touch delica lancets; [...] Arm) Pulse 78 Ht 160 cm (5' 3) Wt 128.4 kg (283 lb) LMP 03/11/1998 [...] -F/u Dr. Esteban for liver Uriah Mueller APRN.SPOOL MAKER 03/11/2024 11:25 AM documented in this encounterGeorgetown Behavioral Hospital06-25-2024 Telephone encounter Note * Telephone Encounter - Alina Dempsey - 03/05/2024 11:24 AM EDT Patient has been scheduled on 03/11 with CRITICAL CARE RN per below. [facility] Work Phone: 1(118) 925-441606-25-2024 Miscellaneous Notes* Telephone Encounter - Alina Dempsey - 03/05/2024 11:24 AM EDT Patient has been scheduled on 03/11 with CRITICAL CARE RN per below. * Telephone Encounter - Hailey [...] until July. She is agreeable to see CRITICAL CARE RN or PA. Schedulers, please call pt to schedule with She is aware and agreed to go to ER if she has severe pain, vomiting or fever. Thank you, Hailey Ocampo, RN 11/01/2022 Colonoscopy: Impression: - The examined [...] liver cirrhosis. There is an order in [facility] for RU US and I advised her [...] flare. Please call patient to discuss at [phone]. documented in this encounterGeorgetown Behavioral Hospital06-24-2024 Telephone encounter Note * Telephone Encounter - [...] until July. She is agreeable to see CRITICAL CARE RN or PA. Schedulers, please call pt to schedule with She is aware and agreed to go to ER if she has severe pain, vomiting or fever. Thank you, Hailey Ocampo, JONI 11/01/2022 Colonoscopy: Impression: - The examined portion [...] liver cirrhosis. There is an order in [facility] for RUQ US and I advised her [...] 47.3. Follow-up with me in 3 months. [facility] Work Phone: 1(712) 734-793006-24-2024 Telephone encounter Note* Telephone Encounter - Alina Dempsey - 03/04/2024 12:58 PM EDT Patient calling states she is having a diverticulitis flare. Please call patient to discuss at [phone]. [facility]04-17-2024 Miscellaneous Notes* Telephone Encounter - Mairssa Tim RN - 12/27/2023 8:23 AM EDT DAJUAN: 12/15/23 Please advise. documented in this encounterGeorgetown Behavioral Hospital04-09-2024 Miscellaneous Notes* Telephone Encounter - Eliceo Ambriz APRN.CNP - 12/19/2023 9:50 AM EDT Noted. message sent to patient. Hood wiley * Telephone Encounter - Marissa Tim RN - 12/18/2023 9:06 AM EDT Received notification from [facility] that patient was DENIED. Member # [id number] REASON: The information received from your prescriber [...] 12/15/2023 3:12 PM EDT ALEXANDRA BELLA (Alvarez: [id number]) Rx #: [id number] Ozempic (0.25 or 0.5 MG/DOSE) 2MG/3ML pen-injectors Form [employer] Electronic PA Form (2017 [facility]) Created 29 minutes ago Sent to Plan 15 minutes ago Plan Response 14 minutes ago Submit Clinical Questions 2 minutes ago Determination Wait for Determination Please wait for [employer] 2017 to return a determination. Faxed last office notes to [employer] at [phone] Transmission Okx2 Will await approval/denial documented in this encounterGeorgetown Behavioral Hospital04-05-2024 History of Present illness Narrative* Eliceo Ambriz APRN.SPOOL MAKER - 12/15/2023 1:00 PM EDT Reason for Consultation: DM Type 2 Referring Physician: Leonora Davalos ([place]) [address] [facility] [address] [facility] [address] HISTORY OF PRESENT ILLNESS Ms. Bella is [...] today for review. LDE Blood Sugar Frequency: [id number], 168, 141, 128, 140, 125, 108 acL [...] breast PAST SURGICAL HISTORY OF 07/2008 had fatty tumor removed from back PAST SURGICAL HISTORY OF [...] 0 Lancing Device (LANCING DEVICE WITH LANCETS) [facility] Lancet device for one touch delica lancets; [...] 05/03/2023 8.6 ) No components found for: URINEALBUMIN Cholesterol, Total (mg/dL) Date Value 05/03/2023 223 [...] with weight as well. Recommend she see program counselor. She declined exercise physiology visit. 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 documented in this encounterGeorgetown Behavioral Hospital03-06-2024 History of Present illness Narrative* Ginger Gray [...] PATIENT PRESENTS WITH AN IMPLANTABLE OR ATTACHED CELL ROOM SUPERVISOR: No RADIOLOGY DEPARTMENT: Bone Density PERIPHERAL IV DATA: Not applicable SIGNED BY: RT Jhoan(R) November 15, 2023 3:48 PM documented in this encounterGeorgetown Behavioral Hospital02-29-2024 Miscellaneous Notes* Telephone Encounter - Marissa Tim [...] Please call the patient to advise at [phone]. documented in this encounterGeorgetown Behavioral Hospital10-05-2023 Miscellaneous Notes* Telephone Encounter - Neema Berman [...] and advise. Lisa Wilcox documented in this encounterGeorgetown Behavioral Hospital09-29-2023 Miscellaneous Notes* Telephone Encounter - Martha Lopes MA - 06/09/2023 1:43 PM EDT Spoke with Alexandra Bella on June 09, 2023. Informed of results / instructions as stated above. Martha Lopes MA * Telephone Encounter - Eliceo Ambriz APRN.CNP - 06/09/2023 12:30 PM EDT Message below [...] Please advise, Phuong Lara documented in this [facility]08-23-2023 Instructions* Patient Instructions* Vaughn Decker MD - 05/03/2023 9:42 AM EDT - Take glipizide XL 5 mg once a day - Check your blood sugars 1-2 times a day - continue synthroid - blood tests fasting at your convenience documented in this encounterGeorgetown Behavioral Hospital08-23-2023 Procedure note* Karma Mcdermott MA - 05/03/2023 9:39 AM EDTProcedure(s): EXTERNAL FEATHER DUSTER WINDER, CGM SYS Images from the original note were not included. documented in this [facility]08-23-2023 History of Present illness Narrative* Vaughn Decker [...] breast PAST SURGICAL HISTORY OF 07/2008 had fatty tumor removed from back PAST SURGICAL HISTORY OF [...] mouth once daily. 30 tablet 3 Insulin Ilion, Disposable, (BD ULTRA-FINE QUINTON PEN NEEDLE) 32 gauge x 5/32 To use with victoza pen 50 Each [...] 0.9% 10 mL injection (DEFINITY) INTRAVENOUS DIRECTED Tanya Vigil APRN.CNP sodium chloride 0.9 % (flush) 10 mL (BD POSIFLUSH) 10 mL INTRAVENOUS DIRECTED Tanya Vigil APRN.SERVANDO COMPLETE REVIEW OF SYSTEMS: Answers submitted by [...] lb 12.8 oz) Height: 160 cm (5' 3) General: NAD, alert and cooperative, Previous exam [...] - Moderate This note was created using Welocalize dictation software. You may find errors that were missed during proofreading. They are purely unintentional and if there are any concerns regarding this dictation, please do not hesitate to contact the dictating provider for clarification. Vaughn Decker MD documented in this encounterGeorgetown [facility]al Hospital08-21-2023 Miscellaneous Notes* Telephone Encounter - Hailey Ocampo RN - 05/01/2023 4:05 PM EDT Pharmacy electronically requests the following refill(s) Requested Prescriptions Pending Prescriptions Disp Refills omeprazole (PRILOSEC) 40 mg capsule [Pharmacy Med Name: omeprazole 40 mg capsule,delayed release] 90 capsule 1 Sig: TAKE 1 CAPSULE BY MOUTH ONCE DAILY Hailey Ocampo RN documented in this encounterGeorgetown Behavioral Hospital08-08-2023 [facility]05-04-2023 Miscellaneous Notes* Telephone Encounter - Hailey [...] would like it to go to [facility] in [place] pharmacy. documented in this encounterGeorgetown Behavioral Hospital02-21-2023 Nurse Note* Nadira Wasserman RN - 11/01/2022 [...] Nadira Wasserman RN In Department: AMBULATORY SURGERY [facility]02-21-2023 Nurse Note* Nadira Wasserman RN - 11/01/2022 [...] In Department: AMBULATORY SURGERY documented in this encounterGeorgetown Behavioral Hospital02-21-2023 History and physical note * Rosy Esteban [...] Procedure Laterality Date CARDIAC CATH 2017 CHOLECYSTECTOMY 2001 COLONOSCOPY 11/08/2011 Dr. Esteban-Random Bx-unremarkable. Sigmoid Bx-focal [...] breast PAST SURGICAL HISTORY OF 07/2008 had fatty tumor removed from back PAST SURGICAL HISTORY OF [...] 1 tablet by mouth once daily. Insulin Ilion, Disposable, (BD ULTRA-FINE QUINTON PEN NEEDLE) 32 gauge x 32 To use with victoza pen atorvastatin (LIPITOR) [...] DATE: November 01, 2022 TIME: 12:18 PM [facility]02-21-2023 History and physical note* Rosy Esteban MD [...] breast PAST SURGICAL HISTORY OF 07/2008 had fatty tumor removed from back PAST SURGICAL HISTORY OF [...] 1 tablet by mouth once daily. Insulin Ilion, Disposable, (BD ULTRA-FINE QUINTON PEN NEEDLE) 32 gauge x To use with victoza pen atorvastatin (LIPITOR) [...] 2022 TIME: 12:18 PM documented in this encounterGeorgetown Behavioral Hospital02-21-2023 Miscellaneous Notes* Result Encounter Note - Rosy [...] planned. Rosy Esteban MD documented in this encounterGeorgetown Behavioral Hospital02-21-2023 Progress note* Result Encounter Note - Rosy [...] with me as planned. Rosy Esteban MD [facility]02-21-2023 Nurse Note* Eliz Jamison RN - 11/01/2022 [...] Eliz Jamison RN In Department: AMBULATORY SURGERY [facility]01-03-2023 Miscellaneous Notes* Telephone Encounter - Vaughn Decker [...] AM 120-147, during the day no higher [id number] and that is very rare. She is [...] are any major changes. documented in this encounterGeorgetown Behavioral Hospital12-27-2022 Instructions* Patient Instructions* Vaughn Decker MD - 09/06/2022 5:01 PM EST - continue to hold off on the glipizide for now - check your blood sugar fasting and at bedtime - if your blood sugars are mostly above 160s, please let me know documented in this encounterGeorgetown Behavioral Hospital12-27-2022 History of Present illness Narrative* Vaughn Decker [...] breast PAST SURGICAL HISTORY OF 07/2008 had fatty tumor removed from back PAST SURGICAL HISTORY OF [...] mouth once daily. 30 tablet 3 Insulin Ilion, Disposable, (BD ULTRA-FINE QUINTON PEN NEEDLE) 32 gauge x 5/32 To use with victoza pen 50 Each [...] POSIFLUSH) 10 mL INTRAVENOUS DIRECTED PRN Tanya Ruano APRN.SERVANDO COMPLETE REVIEW OF SYSTEMS: 10 point review of systems was negative other than what is mentioned in the H&P PHYSICAL EXAM: 09/06/22 1642 BP: 118/71 Pulse: 69 Resp: 16 SpO2: 95% Weight: 125.2 kg (276 lb) Height: 160 cm (5' 3) General: NAD, alert and cooperative, HEENT: EOMI, [...] which included preparing to see the patient, aobu-fo-rxor patient care, completing clinical documentation, counseling and educating the patient/family/caregiver, and ordering medications, tests, or procedures. This note was created using Welocalize dictation software. You may find errors that were missed during proofreading. They are purely unintentional and if there are any concerns regarding this dictation, please do not hesitate to contact the dictating provider for clarification. Vaughn Decker MD documented in this encounterGeorgetown Behavioral Hospital12-20-2022 Miscellaneous Notes* Telephone Encounter - Sunita Gutiérrez [...] po bid , no other meds Rx'd tried to give me Cipro but it flagged it as an issue with my heart med. She is feeling much better. Last colonoscopy 04/28/2020-sigmoid diverticulosis. Random Bx-unremarkable. Pt has OV 10/05/2021. Dr. Esteban, please advise. Thank you, Hailey Ocampo RN * Telephone Encounter - Brynn Akers - 08/29/2022 10:28 AM EST Patient calls stating she was discharged yesterday from hospital ([facility]) for diverticulitis. Patient would like to speak to Hailey and states she is unable to send a message from her phone. Please call patient at [phone]. documented in this encounterGeorgetown Behavioral Hospital12-19-2022 Miscellaneous Notes* Telephone Encounter - Vaughn Decker MD - 08/29/2022 9:23 AM EST Noted. No action needed. HH * Telephone Encounter - Corrie Alejandro RN - 08/29/2022 8:35 AM EST Please review and advise. documented in this encounterGeorgetown Behavioral Hospital12-17-2022 Miscellaneous Notes* Telephone Encounter - Vaughn Decker [...] agreeable to all recommendations. documented in this encounterGeorgetown Behavioral Hospital11-15-2022 NotePap Smear Specimen AdequacyNovember 2021 4:53pmComment.Satisfactory for evaluation. No endocervical component is identified.[facility] A#[id number] Health Work Phone: Comment on above:Satisfactory for evaluation. No endocervical component is identified.07-26-2022 NotePap Smear Specimen Adequacy July 26, 2022 4:53pmComment.Satisfactory for evaluation. No endocervical component is identified.[facility] A#[id number] Health Work Phone: Comment on above:Satisfactory for evaluation. No endocervical component is identified.07-26-2022 NotePap Smear Specimen Adequacy July 26, 2022 4:53pmComment.Satisfactory for evaluation. No endocervical component is identified.[facility] A#[id number] Health Work Phone: Comment on above:Satisfactory for evaluation. No endocervical component is identified.07-26-2022 NotePap Smear Specimen Adequacy July 26, 2022 4:53pmComment.Satisfactory for evaluation. No endocervical component is identified.[facility] A#[id number] Health Comment on above:Satisfactory for evaluation. No endocervical component is identified.07-26-2022 NotePap Smear Specimen AdequacyNov2021 5:53pm Comment.Satisfactory for evaluation. No endocervical component is identified. [facility] A#[id number] HealthComment on above: Satisfactory for evaluation. No endocervical component is identified.06-22-2022 Miscellaneous Notes* Telephone Encounter - Corrie Alejandro RN - 06/22/2022 9:00 AM EDT Please review. * Telephone Encounter - Corrie Alejandro RN - 06/21/2022 11:29 AM EDT Please review and advise. Thanks. documented in this encounterGeorgetown Behavioral Hospital09-29-2022 Miscellaneous Notes* Telephone Encounter - Hailey Ocampo [...] off. Thank you, JONI Gabriel MD Dawn Minnich RN; Leonora Davalos, SHARLA.SPOOL MAKER RUQ US showed hepatic steatosis without focal [...] visit? Rosy Esteban MD documented in this encounterGeorgetown Behavioral Hospital09-19-2022 Miscellaneous Notes* Telephone Encounter - Neema Berman Ma - 05/30/2022 9:16 AM EDT Patient via [employer] requesting refills as follows: You reviewed recent labs that were done and Thyroid levels were normal. Requested Prescriptions Pending Prescriptions Disp Refills SYNTHROID 200 mcg tablet 66 tablet 3 Sig: Take one tablet Monday through Monday,and half a pill on Saturdays and none on Sundays. Please review and advise. Neema Berman Ma documented in this encounterGeorgetown Behavioral Hospital09-19-2022 History of Present illness Narrative* RT Estrada(R) [...] DATA: Not applicable SIGNED BY: Jaquelin Rainey RDMS, RVT May 30, 2022 8:43 AM documented in this encounterGeorgetown Behavioral Hospital09-16-2022 Miscellaneous Notes* Telephone Encounter - Vaughn Decker MD - 05/27/2022 6:49 PM EDT Thank you. I changed it to glipizide XL and will send her a message. HH * Telephone Encounter - Corrie Alejandro RN - 05/27/2022 2:53 PM EDT Received a VM on nurses line from patient. State's the Trulicity is covered but the cost is $287 per month. She cannot afford this. Is there another alternative? She does not qualify for any assistance for this. Also, she had her labs drawn for TFT's yesterday at [facility]. She will call and have the results faxed to us for review. documented in this encounterGeorgetown Behavioral Hospital09-16-2022 Miscellaneous Notes* Telephone Encounter - Vaughn Decker [...] an appeal. Appeal . ALEXANDRA BELLA (Alvarez: [id number]) Rx #: [id number] Victoza 18MG/3ML pen-injectors Form [employer] Electronic PA Form (2016 [facility]) Created 1 day ago Sent to Plan 1 day ago Plan Response 1 day ago Submit Clinical Questions 1 day ago Determination Unfavorable 16 hours ago Message from Plan CaseId:[id number];Status:Denied;Review Type:;Appeal Information: Attention:ATTN: MEDICARE CLINICAL APPEALS [employer] [address] [address],[place], [place],[address] WebAddress:[email or web address]; Important - Please read the below note [...] pain that cannot be adequately controlled w hile waiting for a decision on the appeal.; * Telephone Encounter - Corrie Alejandro RN - 05/26/2022 8:29 AM EDT Received a faxed [facility] request to complete for Victoza. ([employer]) Completed. Note: Formulary alternatives are: Raimundoainsleyshital Nelson Will await if this will be denied and patient needs to try alternative. ALEXANDRA BELLA (Alvarez: [id number]) Rx #: [id number] Victoza 18MG/3ML pen-injectors Form [employer] Electronic PA Form (2016 [facility]) Created 15 hours ago Sent to Plan 4 minutes ago Plan Response 4 minutes ago Submit Clinical Questions 1 minute ago Determination Wait for Determination Please wait for [employer] 2016 to return a determination. documented in this encounterGeorgetown Behavioral Hospital06-20-2022 Miscellaneous Notes* Telephone Encounter - Tanya Wade RN - 02/28/2022 9:22 AM EDT Eliquis denied by [employer]. Spoke with patient, provided information on Eliquis Assistance program. Appeal started with insurance. * Telephone Encounter - Kacie Echeverria - 02/25/2022 10:18 AM EDT [facility] calling in asking us to fax to [employer] ([phone]) the reason she needs Eliquis, and wondering [...] Please advise. Phuong Lara documented in this encounterGeorgetown Behavioral Hospital06-13-2022 Miscellaneous Notes* Telephone Encounter - Albin Benitez RN - 02/21/2022 9:20 AM EDT Called PT Unsure what could be causing this. She should touch base with PCP and I can also place a consult to sleep medicine if she's like their opinion. PT states she will think about sleep medicine consult, and get back to us. * Telephone Encounter - Tanya Ruano APRN.CNP - 02/21/2022 9:08 AM EDT Unsure what [...] panel done. Thanks! Tanya documented in this encounterGeorgetown Behavioral Hospital06-06-2022 Instructions* Patient Instructions* Tanya Ruano APRN.CNP - 02/14/2022 8:56 AM EDT 1. Schedule echocardiogram as soon as possible 2. Get fasting blood work done to check your cholesterol. Make sure you fast for at least 10-12 hours beforehand. 3. Stop the metoprolol half tablet for one week. Touch base with a [employer] message letting me know if the nightmares resolved. If not, we'll put you back on the long-acting form of the metoprolol once a day. documented in this encounterGeorgetown Behavioral Hospital06-06-2022 History of Present illness Narrative* Tanya Ruano APRN.CNP - 02/14/2022 8:30 AM EDT Images from the original note were not included. [facility] Department of Cardiovascular Medicine SECTION OF CLINICAL CARDIOLOGY OUTPATIENT VISIT DATE February 13, 2022 OUTPATIENT VISIT TYPE ESTABLISHED PRIMARY CARE PHYSICIAN: Shiraz Stephens ([place]) [phone] [phone] REASON FOR VISIT: 4 month follow up [...] breast PAST SURGICAL HISTORY OF 07/2008 had fatty tumor removed from back PAST SURGICAL HISTORY OF 01/02/2012 excision perianal lesion-invasive moderately differentiated squamous cell CA PAST SURGICAL HISTORY OF 08/29/2018 Excision of 5 x 6 cm posterior back mass, PAST SURGICAL HISTORY OF Left scope knee PAST SURGICAL HISTORY OF Partial thyroidectomy THYROIDECTOMY TOTAL/COMPLETE 1972 SOCIAL HISTORY Social History Tobacco Use Smoking [...] 122/70 Pulse 91 Ht 160 cm (5' 3) Wt 122.9 kg (271 lb) LMP 03/11/1998 [...] function was not evaluated due to AF. [id number]-vl-[id number] variation due to Afib. - The right [...] performed for review. IMPRESSION: 1. CAD - C 09/2019: mild diffuse LAD disease - Clinically [...] Ruano APRN.SERVANDO Cardiology Nurse Practitioner Section of [facility] Cardiology [facility] Dept of Cardiovascular Medicine [facility] [address] [place] [address] Office Office This note was partially generated using Welocalize voice recognition system, and there may be some incorrect words, spellings, and punctuation that were not noted in checking the note before saving. I personally interviewed, confirmed and edited the above information if obtained by others. [facility] History and physical note * Rosy Esteban [...] 6.4. She has rheumatoid arthritis and her property accountant is Dr. Lloyd. She is no longer [...] will refer to Dr. Tyler Alfonso at [facility]. She was advised to call his office [...] 1.00 - 4.00 k/uL 1.81 1.30 2.27 Armstrong% % 7.0 8.0 9.7 Abs Armstrong <0.87 k/uL 0.35 0.40 0.61 Eosin% % [...] breast PAST SURGICAL HISTORY OF 07/2008 had fatty tumor removed from back PAST SURGICAL HISTORY OF [...] 200 mcg by mouth once daily. 200mcg Mon-Fri. 100mcg on Mon and none on Monday [...] EXAMINATION: BP 147/77 Pulse 93 Ht 5' 3 (1.60m) Wt 270 lb (122.5kg) LMP 03/11/1998 [...] referred her to the bariatric program at [facility]. She is somewhat impressed and did not want to go back to this program. I offered her for referra ls to someone else. She would think about it. She would like to work on weight management first. Follow-up with me in 3 months. Rosy Esteban MD, FACP documented in this [facility]Ge[facility]04[facility] Miscellaneous Notes* Telephone Encounter - Hailey Ocampo RN - 01/05/2022 4:22 PM EDT Pt notified of results and recommendations and verbalized understanding. She is aware she needs additional labs for CLD. She has lost 20 pounds. She states the diabetes is iffy, she manages by diet. because Metformin caused [...] control? Rosy Esteban MD documented [facility]Ge[facility] History of Past illness Narrative* Problem Noted Date Resolved Date Chest pain 07/05/2019 11/11/2020 Mass on back 08/14/2018 11/26/2020 Overview: Added automatically from request for surgery [id number] Left-sided chest wall pain 07/17/201611/11 Tear of right meniscus as current injury 013 07/08/2019 documented as of this encounter (statuses as of 01/05/2022) [facility] of Past illness Narrative* Problem Noted Date Resolved Date Chest pain 07/05/2019 11/11/2020 Mass on back 08/14/2018 11/26/2020 Overview: Added automatically from request for surgery [id number] Left-sided chest wall pain 07/17/201611/11 Tear of right meniscus as current injury 013 07/08/2019 documented as of this encounter (statuses as of 01/13/2022) [facility] of Past illness Narrative* Problem Noted Date Resolved Date Chest pain 07/05/2019 11/11/2020 Mixed hyperlipidemia 08/24/2018 02/14/2022 Last Assessment & Plan: Assessment: controlled on Rx Mass on back 08/14/2018 11/26/2020 Overview: Added automatically from request for surgery [id number] Left-sided chest wall pain 07/17/201611/11 Tear of right meniscus as current injury 013 07/08/2019 CHF (congestive heart failure) 0 02/14/2022 documented as of this encounter (statuses as of 02/14/2022) [facility] Narrative* Problem Noted Date Resolved Date Chest pain 07/05/2019 11/11/2020 Mixed hyperlipidemia 08/24/2018 02/14/2022 Last Assessment & Plan: Assessment: controlled on Rx Mass on back 08/14/2018 11/26/2020 Overview: Added automatically from request for surgery [id number] Left-sided chest wall pain 07/17/201611/11 Tear of right meniscus as current injury 013 07/08/2019 CHF (congestive heart failure) 0 02/14/2022 documented as of this encounter (statuses as of 02/21/2022) [facility] Narrative* Problem Noted Date Resolved Date Chest pain 07/05/2019 11/11/2020 Mixed hyperlipidemia 08/24/2018 02/14/2022 Last Assessment & Plan: Assessment: controlled on Rx Mass on back 08/14/2018 11/26/2020 Overview: Added automatically from request for surgery [id number] Left-sided chest wall pain 07/17/201611/11 Tear of right meniscus as current injury 013 07/08/2019 CHF (congestive heart failure) 0 02/14/2022 documented as of this encounter (statuses as of 02/28/2022) [facility] Narrative* Problem Noted Date Resolved Date Chest pain 07/05/2019 11/11/2020 Mixed hyperlipidemia 08/24/2018 02/14/2022 Last Assessment & Plan: Assessment: controlled on Rx Mass on back 08/14/2018 11/26/2020 Overview: Added automatically from request for surgery [id number] Left-sided chest wall pain 07/17/201611/11 Tear of right meniscus as current injury 013 07/08/2019 CHF (congestive heart failure) 0 02/14/2022 documented as of this encounter (statuses as of 03/12/2022) [facility] Narrative* Problem Noted Date Resolved Date Chest pain 07/05/2019 11/11/2020 Mixed hyperlipidemia 08/24/2018 02/14/2022 Last Assessment & Plan: Assessment: controlled on Rx Mass on back 08/14/2018 11/26/2020 Overview: Added automatically from request for surgery [id number] Left-sided chest wall pain 07/17/201611/11 Tear of right meniscus as current injury 013 07/08/2019 CHF (congestive heart failure) 0 02/14/2022 documented as of this encounter (statuses as of 05/27/2022) [facility] Narrative* Problem Noted Date Resolved Date Chest pain 07/05/2019 11/11/2020 Mixed hyperlipidemia 08/24/2018 02/14/2022 Last Assessment & Plan: Assessment: controlled on Rx Mass on back 08/14/2018 11/26/2020 Overview: Added automatically from request for surgery [id number] Left-sided chest wall pain 07/17/201611/11 Tear of right meniscus as current injury 013 07/08/2019 CHF (congestive heart failure) 0 02/14/2022 documented as of this encounter (statuses as of 05/27/2022) [facility] Narrative* Problem Noted Date Resolved Date Chest pain 07/05/2019 11/11/2020 Mixed hyperlipidemia 08/24/2018 02/14/2022 Last Assessment & Plan: Assessment: controlled on Rx Mass on back 08/14/2018 11/26/2020 Overview: Added automatically from request for surgery [id number] Left-sided chest wall pain 07/17/201611/11 Tear of right meniscus as current injury 013 07/08/2019 CHF (congestive heart failure) 0 02/14/2022 documented as of this encounter (statuses as of 05/30/2022) [facility] Narrative* Problem Noted Date Resolved Date Chest pain 07/05/2019 11/11/2020 Mixed hyperlipidemia 08/24/2018 02/14/2022 Last Assessment & Plan: Assessment: controlled on Rx Mass on back 08/14/2018 11/26/2020 Overview: Added automatically from request for surgery [id number] Left-sided chest wall pain 07/17/201611/11 Tear of right meniscus as current injury 013 07/08/2019 CHF (congestive heart failure) 0 02/14/2022 documented as of this encounter (statuses as of 05/31/2022) [facility] Narrative* Problem Noted Date Resolved Date Chest pain 07/05/2019 11/11/2020 Mixed hyperlipidemia 08/24/2018 02/14/2022 Last Assessment & Plan: Assessment: controlled on Rx Mass on back 08/14/2018 11/26/2020 Overview: Added automatically from request for surgery [id number] Left-sided chest wall pain 07/17/201611/11 Tear of right meniscus as current injury 013 07/08/2019 CHF (congestive heart failure) 0 02/14/2022 documented as of this encounter (statuses as of 06/10/2022) [facility]arrative* Problem Noted Date Resolved Date Chest pain 07/05/2019 11/11/2020 Mixed hyperlipidemia 08/24/2018 02/14/2022 Last Assessment & Plan: Assessment: controlled on Rx Mass on back 08/14/2018 11/26/2020 Overview: Added automatically from request for surgery [id number] Left-sided chest wall pain 07/17/201611/11 Tear of right meniscus as current injury 013 07/08/2019 CHF (congestive heart failure) 0 02/14/2022 documented as of this encounter (statuses as of 06/22/2022) [facility]arrative* Problem Noted Date Resolved Date Chest pain 07/05/2019 11/11/2020 Mixed hyperlipidemia 08/24/2018 02/14/2022 Last Assessment & Plan: Assessment: controlled on Rx Mass on back 08/14/2018 11/26/2020 Overview: Added automatically from request for surgery [id number] Left-sided chest wall pain 07/17/201611/11 Tear of right meniscus as current injury 013 07/08/2019 CHF (congestive heart failure) 0 02/14/2022 documented as of this encounter (statuses as of 07/13/2022) [facility]arrative* Problem Noted Date Resolved Date Chest pain 07/05/2019 11/11/2020 Mixed hyperlipidemia 08/24/2018 02/14/2022 Last Assessment & Plan: Assessment: controlled on Rx Mass on back 08/14/2018 11/26/2020 Overview: Added automatically from request for surgery [id number] Left-sided chest wall pain 07/17/201611/11 Tear of right meniscus as current injury 013 07/08/2019 CHF (congestive heart failure) 0 02/14/2022 documented as of this encounter (statuses as of 08/27/2022) [facility] Narrative* Problem Noted Date Resolved Date Chest pain 07/05/2019 11/11/2020 Mixed hyperlipidemia 08/24/2018 02/14/2022 Last Assessment & Plan: Assessment: controlled on Rx Mass on back 08/14/2018 11/26/2020 Overview: Added automatically from request for surgery [id number] Left-sided chest wall pain 07/17/201611/11 Tear of right meniscus as current injury 013 07/08/2019 CHF (congestive heart failure) 0 02/14/2022 documented as of this encounter (statuses as of 08/29/2022) [facility]* Problem Noted Date Resolved Date Chest pain 07/05/2019 11/11/2020 Mixed hyperlipidemia 08/24/2018 02/14/2022 Last Assessment & Plan: Assessment: controlled on Rx Mass on back 08/14/2018 11/26/2020 Overview: Added automatically from request for surgery [id number] Left-sided chest wall pain 07/17/201611/11 Tear of right meniscus as current injury 013 07/08/2019 CHF (congestive heart failure) 0 02/14/2022 documented as of this encounter (statuses as of 08/30/2022) [facility]ative* Problem Noted Date Resolved Date Chest pain 07/05/2019 11/11/2020 Mixed hyperlipidemia 08/24/2018 02/14/2022 Last Assessment & Plan: Assessment: controlled on Rx Mass on back 08/14/2018 11/26/2020 Overview: Added automatically from request for surgery [id number] Left-sided chest wall pain 07/17/201611/11 Tear of right meniscus as current injury 013 07/08/2019 CHF (congestive heart failure) 0 02/14/2022 documented as of this encounter (statuses as of 09/12/2022) [facility]ative* Problem Noted Date Resolved Date Chest pain 07/05/2019 11/11/2020 Mixed hyperlipidemia 08/24/2018 02/14/2022 Last Assessment & Plan: Assessment: controlled on Rx Mass on back 08/14/2018 11/26/2020 Overview: Added automatically from request for surgery [id number] Left-sided chest wall pain 07/17/201611/11 Tear of right meniscus as current injury 013 07/08/2019 CHF (congestive heart failure) 0 02/14/2022 documented as of this encounter (statuses as of 09/15/2022) [facility]ative* Problem Noted Date Resolved Date Chest pain 07/05/2019 11/11/2020 Mixed hyperlipidemia 08/24/2018 02/14/2022 Last Assessment & Plan: Assessment: controlled on Rx Mass on back 08/14/2018 11/26/2020 Overview: Added automatically from request for surgery [id number] Left-sided chest wall pain 07/17/201611/11 Tear of right meniscus as current injury 013 07/08/2019 CHF (congestive heart failure) 0 02/14/2022 documented as of this encounter (statuses as of 01/12/2023) [facility]arrative* Problem Noted Date Diagnosed Date Resolved Date Chest pain 07/05/2019 11/11/2020 Mixed hyperlipidemia 08/24/2018 022 Last Assessment & Plan: Assessment: controlled on Rx Mass on back 08/14/2018 11/26/2020 Overview: Added automatically from request for surgery [id number] Left-sided chest wall pain 07/17/2016 0 11/11/2020 Tear of right meniscus as current injury 10/03/2012 07/08/2019 CHF (congestive heart failure) 02/14/2022 documented as of this encounter (statuses as of 05/02/2023) [facility]ative* Problem Noted Date Diagnosed Date Resolved Date Chest pain 07/05/2019 11/11/2020 Mixed hyperlipidemia 08/24/2018 022 Last Assessment & Plan: Assessment: controlled on Rx Mass on back 08/14/2018 11/26/2020 Overview: Added automatically from request for surgery [id number] Left-sided chest wall pain 07/17/2016 0 11/11/2020 Tear of right meniscus as current injury 10/03/2012 07/08/2019 CHF (congestive heart failure) 02/14/2022 documented as of this encounter (statuses as of 05/03/2023) [facility]* Problem Noted Date Diagnosed Date Resolved Date Chest pain 07/05/2019 11/11/2020 Mixed hyperlipidemia 08/24/2018 022 Last Assessment & Plan: Assessment: controlled on Rx Mass on back 08/14/2018 11/26/2020 Overview: Added automatically from request for surgery [id number] Left-sided chest wall pain 07/17/2016 0 11/11/2020 Tear of right meniscus as current injury 10/03/2012 07/08/2019 CHF (congestive heart failure) 02/14/2022 documented as of this encounter (statuses as of 06/10/2023) [facility]* Problem Noted Date Diagnosed Date Resolved Date Chest pain 07/05/2019 11/11/2020 Mixed hyperlipidemia 08/24/2018 022 Last Assessment & Plan: Assessment: controlled on Rx Mass on back 08/14/2018 11/26/2020 Overview: Added automatically from request for surgery [id number] Left-sided chest wall pain 07/17/2016 0 11/11/2020 Tear of right meniscus as current injury 10/03/2012 07/08/2019 CHF (congestive heart failure) 02/14/2022 documented as of this encounter (statuses as of 06/17/2023) [facility]* Problem Noted Date Diagnosed Date Resolved Date Chest pain 07/05/2019 11/11/2020 Mixed hyperlipidemia 08/24/2018 022 Last Assessment & Plan: Assessment: controlled on Rx Mass on back 08/14/2018 11/26/2020 Overview: Added automatically from request for surgery [id number] Left-sided chest wall pain 07/17/2016 0 11/11/2020 Tear of right meniscus as current injury 10/03/2012 07/08/2019 CHF (congestive heart failure) 02/14/2022 documented as of this encounter (statuses as of 08/02/2023) [facility]* Problem Noted Date Diagnosed Date Resolved Date Chest pain 07/05/2019 11/11/2020 Mixed hyperlipidemia 08/24/2018 022 Last Assessment & Plan: Assessment: controlled on Rx Mass on back 08/14/2018 11/26/2020 Overview: Added automatically from request for surgery [id number] Left-sided chest wall pain 07/17/2016 0 11/11/2020 Tear of right meniscus as current injury 10/03/2012 07/08/2019 CHF (congestive heart failure) 02/14/2022 documented as of this encounter (statuses as of 11/10/2023) [facility]* Problem Noted Date Diagnosed Date Resolved Date Chest pain 07/05/2019 11/11/2020 Mixed hyperlipidemia 08/24/2018 022 Last Assessment & Plan: Assessment: controlled on Rx Mass on back 08/14/2018 11/26/2020 Overview: Added automatically from request for surgery [id number] Left-sided chest wall pain 07/17/2016 0 11/11/2020 Tear of right meniscus as current injury 10/03/2012 07/08/2019 CHF (congestive heart failure) 02/14/2022 documented as of this encounter (statuses as of 11/16/2023) [facility]* Problem Noted Date Diagnosed Date Resolved Date Chest pain 07/05/2019 11/11/2020 Mixed hyperlipidemia 08/24/2018 022 Last Assessment & Plan: Assessment: controlled on Rx Mass on back 08/14/2018 11/26/2020 Overview: Added automatically from request for surgery [id number] Left-sided chest wall pain 07/17/2016 0 11/11/2020 Tear of right meniscus as current injury 10/03/2012 07/08/2019 CHF (congestive heart failure) 02/14/2022 documented as of this encounter (statuses as of 12/14/2023) [facility]* Problem Noted Date Diagnosed Date Resolved Date Chest pain 07/05/2019 11/11/2020 Mixed hyperlipidemia 08/24/2018 022 Last Assessment & Plan: Assessment: controlled on Rx Mass on back 08/14/2018 11/26/2020 Overview: Added automatically from request for surgery [id number] Left-sided chest wall pain 07/17/2016 0 11/11/2020 Tear of right meniscus as current injury 10/03/2012 07/08/2019 CHF (congestive heart failure) 02/14/2022 documented as of this encounter (statuses as of 12/15/2023) [facility]* Problem Noted Date Diagnosed Date Resolved Date Chest pain 07/05/2019 11/11/2020 Mixed hyperlipidemia 08/24/2018 022 Last Assessment & Plan: Assessment: controlled on Rx Mass on back 08/14/2018 11/26/2020 Overview: Added automatically from request for surgery [id number] Left-sided chest wall pain 07/17/2016 0 11/11/2020 Tear of right meniscus as current injury 10/03/2012 07/08/2019 CHF (congestive heart failure) 02/14/2022 documented as of this encounter (statuses as of 12/19/2023) [facility]ative* Problem Noted Date Diagnosed Date Resolved Date Chest pain 07/05/2019 11/11/2020 Mixed hyperlipidemia 08/24/2018 022 Last Assessment & Plan: Assessment: controlled on Rx Mass on back 08/14/2018 11/26/2020 Overview: Added automatically from request for surgery [id number] Left-sided chest wall pain 07/17/2016 0 11/11/2020 Tear of right meniscus as current injury 10/03/2012 07/08/2019 CHF (congestive heart failure) 02/14/2022 documented as of this encounter (statuses as of 12/27/2023) [facility] Diagnosis Onset Date Resolution Status [id number] chronic Body mass index (BMI) 35 or more chronic CHF (congestive heart failure) chronic Mixed hyperlipidemia chronic Paroxysmal atrial fibrillation chronic Diabetes chronic Mixed hyperlipidemia chronic Morbid obesity with BMI of 45.0-49.9, adult chronic Postsurgical hypothyroidism chronic [id number] chronic Body mass index (BMI) 35 or more chronic CHF (congestive heart failure) chronic Mixed hyperlipidemia chronic Paroxysmal atrial fibrillation chronic Body mass index (BMI) 35 or more chronic CHF (congestive heart failure) chronic Rheumatoid arthritis chronic Sleep apnea [facility] Work Phone: Evaluation note* Diagnosis Elevated liver enzymes- Primary Other nonspecific abnormal serum enzyme levels Fatty metamorphosis of liver Other chronic nonalcoholic liver disease [facility] Diagnosis Fatty metamorphosis of liver- Primary Other chronic nonalcoholic liver disease Elevated liver enzymes Other nonspecific abnormal serum enzyme levels Liver fibrosis Cirrhosis of liver without mention of alcohol Gastroesophageal reflux disease without esophagitis Esophageal reflux Diarrhea, unspecified type Hx of cholecystectomy Other acquired absence of organ [facility]* Diagnosis Onset Date Resolution Status Diabetes chronic Mixed hyperlipidemia chronic Morbid obesity with BMI of 45.0-49.9, adult chronic Postsurgical hypothyroidism chronic [id number] chronic Body mass index (BMI) 35 or more chronic CHF (congestive heart failure) chronic Mixed hyperlipidemia chronic Paroxysmal atrial fibrillation chronic Body mass index (BMI) 35 or more chronic CHF (congestive heart failure) chronic Rheumatoid arthritis chronic Sleep apnea chronic Bilateral acute otitis media acute Bronchitis acute [facility] Work Phone: Evaluation note* Diagnosis DEE (dyspnea on exertion)- Primary Other dyspnea and respiratory abnormality Essential hypertension Unspecified essential hypertension Paroxysmal atrial fibrillation (HCC) Atrial fibrillation 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 Chronic diastolic CHF (congestive heart failure) (HCC) Chronic diastolic heart failure Pure hypercholesterolemia [facility]* Diagnosis DEE (dyspnea on exertion) Other dyspnea and respiratory abnormality [facility]* Diagnosis Fatty metamorphosis of liver Other chronic nonalcoholic liver disease Liver fibrosis Cirrhosis of liver without mention of alcohol [facility] Diagnosis Fatty metamorphosis of liver- Primary Other chronic nonalcoholic liver disease Elevated liver enzymes Other nonspecific abnormal serum enzyme levels [facility]* Diagnosis Onset Date Resolution Status Diastolic dysfunction resolv ed Bilateral acute otitis media resolved Maxillary sinusitis, acute r esolved Rheumatoid arthritis chronic Sleep apnea chronic Body mass index (BMI) 35 or more resolved FLO III (cervical intraepith elial neoplasia grade III) with severe dysplasia acute 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 acute Lichen sclerosus acute Diabetes chronic Morbid obesity with BMI of 45.0-49.9, adult chronic LLAMAS (nonalcoholic steatohepatitis) chronic Sleep apnea chronic History of breast cancer res olved Encounter for routine gynecological examination noneactive Diabetes chronic Left otitis media resolved [facility] Work Phone: Evaluation note* Diagnosis Diverticulitis- Primary Diverticulitis of colon (without mention of hemorrhage) [facility]* Diagnosis Acquired hypothyroidism- Primary Unspecified hypothyroidism Controlled type 2 diabetes mellitus without complication, without long-term current use of insulin (HCC) [facility] this [facility]* Diagnosis Onset Date Resolution Status Diastolic dysfunction resolv ed Bilateral acute otitis media resolved Maxillary sinusitis, acute r esolved Rheumatoid arthritis chronic Sleep apnea chronic Body mass index (BMI) 35 or more resolved FLO III (cervical intraepith elial neoplasia grade III) with severe dysplasia acute 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 acute Lichen sclerosus acute Diabetes chronic Morbid obesity with BMI of 45.0-49.9, adult chronic LLAMAS (nonalcoholic steatohepatitis) chronic Sleep apnea chronic History of breast cancer res olved Encounter for routine gynecological examination noneactive Diabetes chronic Left otitis media resolved Diverticular disease acute LLAMAS (nonalcoholic steatohepatitis) chronic [facility] Work Phone: Evaluation note* Diagnosis Onset Date Resolution Status FLO III (cervical intraepith elial neoplasia grade III) with severe dysplasia acute 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 acute Lichen [...] block (RBBB) chronic Diastolic dysfunction resolv ed [facility] Work Phone: Evaluation note* Diagnosis Onset Date [...] block (RBBB) chronic Diastolic dysfunction resolv ed [facility] Work Phone: Evaluation note* Diagnosis Poorly controlled type 2 diabetes mellitus (HCC)- Primary Type II or unspecified type diabetes mellitus without mention of complication, not stated as uncontrolled Acquired hypothyroidism Unspecified hypothyroidism [facility] Controlled type 2 diabetes mellitus without complication, without long-term current use of insulin (HCC)- Primary [facility] Diagnosis Onset Date Resolution Status Dyspnea on exertion chronic Fatigue chronic Paroxysmal atrial fibrillation chronic Pure hypercholesterolemia ch ronic Right bundle branch block (RBBB) chronic Diastolic dysfunction resol ed Rheumatoid arthritis chronic Sleep apnea chronic Body mass index (BMI) 35 or more resolved Dyspnea on exertion chronic Fatigue chronic Paroxysmal atrial fibrillation chronic Pure hypercholesterolemia ch ronic Right bundle branch block (RBBB) chronic Diastolic dysfunction resol ed [facility] Work Phone: Evaluation note* Diagnosis Onset Date Resolution Status Rheumatoid arthritis chronic Sleep apnea chronic Body mass index (BMI) 35 or more resolved Dyspnea on exertion chronic Fatigue chronic Paroxysmal atrial fibrillation chronic Pure hypercholesterolemia ch ronic Right bundle branch block (RBBB) chronic Diastolic dysfunction [facility] ed FLO III (cervical intraepith elial neoplasia grade III) with severe dysplasia acute History of left breast cancer acute Lichen sclerosus acute Encounter for routine gynecological examination noneactive [facility] Work Phone: Evaluation note* Diagnosis Poorly controlled type 2 diabetes mellitus (HCC)- Primary Type II or unspecified type diabetes mellitus without mention of complication, not stated as uncontrolled [facility] Diagnosis Type 2 diabetes mellitus with diabetic polyneuropathy, without long-term current use of insulin (HCC)- Primary Postoperative hypothyroidism Postsurgical hypothyroidism Class 3 severe obesity with serious comorbidity and body mass index (BMI) of 50.0 to 59.9 in adult, unspecified obesity type (HCC) Pure hypercholesterolemia Essential hypertension Unspecified essential hypertension 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 [facility] Diagnosis Metabolic dysfunction-associated steatohepatitis (MASH)- Primary [facility] Diagnosis Metabolic dysfunction-associated steatohepatitis (MASH)- Primary Diarrhea, unspecified type Left lower quadrant abdominal pain [facility] Diagnosis Metabolic dysfunction-associated steatohepatitis (MASH)- Primary [facility] Diagnosis Left lower quadrant abdominal pain documented in this encounter [facility] note* Diagnosis Metabolic dysfunction-associated steatohepatitis (MASH) documented in this encounter [facility] note* Diagnosis Fatty metamorphosis of liver- Primary Other chronic nonalcoholic liver disease Liver fibrosis Cirrhosis of liver without mention of alcohol Gastroesophageal reflux disease without esophagitis Esophageal reflux Hx of cholecystectomy Other acquired absence of organ BMI 50.0-59.9, adult (HCC) Body Mass Index 50.0-59.9, adult [facility]* Diagnosis Type 2 diabetes mellitus with hyperglycemia, without long-term current use of insulin (HCC)- Primary Acquired hypothyroidism Unspecified hypothyroidism documented in this encounter [facility] note* Diagnosis Pre-operative examination- Primary Preoperative examination, unspecified Lipoma of torso Paroxysmal atrial fibrillation (HCC) Atrial fibrillation Chronic diastolic heart failure (HCC) Chronic diastolic heart failure Essential hypertension Unspecified essential hypertension Gastroesophageal reflux disease without esophagitis Esophageal reflux Rheumatoid arthritis of other site, unspecified whether rheumatoid factor present (HCC) MARILIA on CPAP Obstructive sleep apnea (adult) (pediatric) 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 History of DVT [...] insulin (HCC)- Primary documented in this encounter [facility] note* Diagnosis Pre-operative examination- Primary Preoperative examination, unspecified Lipoma of torso Paroxysmal atrial fibrillation (HCC) Atrial fibrillation Chronic diastolic heart failure (HCC) Chronic diastolic heart failure Essential hypertension Unspecified essential hypertension Gastroesophageal reflux disease without esophagitis Esophageal reflux Rheumatoid arthritis of other site, unspecified whether rheumatoid factor present (HCC) MARILIA on CPAP Obstructive sleep apnea (adult) (pediatric) 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 History of DVT [...] insulin (HCC)- Primary [facility] Diagnosis Pre-operative examination- Primary Preoperative examination, unspecified Lipoma of torso Paroxysmal atrial fibrillation (HCC) Atrial fibrillation Chronic diastolic heart failure (HCC) Chronic diastolic heart failure Essential hypertension Unspecified essential hypertension Gastroesophageal reflux disease without esophagitis Esophageal reflux Rheumatoid arthritis of other site, unspecified whether rheumatoid factor present (HCC) MARILIA on CPAP Obstructive sleep apnea (adult) (pediatric) 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 History of DVT [...] Nausea Nausea alone [facility] Diagnosis Pre-operative examination- Primary Preoperative examination, unspecified Lipoma of torso Paroxysmal atrial fibrillation (HCC) Atrial fibrillation Chronic diastolic heart failure (HCC) Chronic diastolic heart failure Essential hypertension Unspecified essential hypertension Gastroesophageal reflux disease without esophagitis Esophageal reflux Rheumatoid arthritis of other site, unspecified whether rheumatoid factor present (HCC) MARILIA on CPAP Obstructive sleep apnea (adult) (pediatric) 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 History of DVT (deep vein thrombosis) Personal history of venous thrombosis and embolism History of left breast cancer Controlled type 2 diabetes mellitus without complication, without long-term current use of insulin (HCC) Obesity, Class III, BMI >= 40 Morbid obesity Mixed hyperlipidemia History of colorectal cancer Pain Generalized pain documented in this encounter [facility] note* Diagnosis Pre-operative examination- Primary Preoperative examination, unspecified Lipoma of torso Paroxysmal atrial fibrillation (HCC) Atrial fibrillation Chronic diastolic heart failure (HCC) Chronic diastolic heart failure Essential hypertension Unspecified essential hypertension Gastroesophageal reflux disease without esophagitis Esophageal reflux Rheumatoid arthritis of other site, unspecified whether rheumatoid factor present (HCC) MARILIA on CPAP Obstructive sleep apnea (adult) (pediatric) 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 History of DVT [...] abnormal blood chemistry [facility] Diagnosis Pre-operative examination- Primary Preoperative examination, unspecified Lipoma of torso Paroxysmal atrial fibrillation (HCC) Atrial fibrillation Chronic diastolic heart failure (HCC) Chronic diastolic heart failure Essential hypertension Unspecified essential hypertension Gastroesophageal reflux disease without esophagitis Esophageal reflux Rheumatoid arthritis of other site, unspecified whether rheumatoid factor present (HCC) MARILIA on CPAP Obstructive sleep apnea (adult) (pediatric) 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 History of DVT [...] osteoarthrosis, lower leg documented in this encounter [facility] note* Diagnosis Pre-operative examination- Primary Preoperative examination, unspecified Lipoma of torso Paroxysmal atrial fibrillation (HCC) Atrial fibrillation Chronic diastolic heart failure (HCC) Chronic diastolic heart failure Essential hypertension Unspecified essential hypertension Gastroesophageal reflux disease without esophagitis Esophageal reflux Rheumatoid arthritis of other site, unspecified whether rheumatoid factor present (HCC) MARILIA on CPAP Obstructive sleep apnea (adult) (pediatric) 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 History of DVT (deep vein thrombosis) Personal history of venous thrombosis and embolism History of left breast cancer Controlled type 2 diabetes mellitus without complication, without long-term current use of insulin (HCC) Obesity, Class III, BMI >= 40 Morbid obesity Mixed hyperlipidemia History of colorectal cancer Bilateral primary osteoarthritis of knee- Primary [facility]* Diagnosis Pre-operative examination- Primary Preoperative examination, unspecified Lipoma of torso Paroxysmal atrial fibrillation (HCC) Atrial fibrillation Chronic diastolic heart failure (HCC) Chronic diastolic heart failure Essential hypertension Unspecified essential hypertension Gastroesophageal reflux disease without esophagitis Esophageal reflux Rheumatoid arthritis of other site, unspecified whether rheumatoid factor present (HCC) MARILIA on CPAP Obstructive sleep apnea (adult) (pediatric) 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 History of DVT (deep vein thrombosis) Personal history of venous thrombosis and embolism History of left breast cancer Controlled type 2 diabetes mellitus without complication, without long-term current use of insulin (HCC) Obesity, Class III, BMI >= 40 Morbid obesity Mixed hyperlipidemia History of colorectal cancer Bilateral primary osteoarthritis of knee- Primary [facility] Diagnosis Pre-operative examination- Primary Preoperative examination, unspecified Lipoma of torso Paroxysmal atrial fibrillation (HCC) Atrial fibrillation Chronic diastolic heart failure (HCC) Chronic diastolic heart failure Essential hypertension Unspecified essential hypertension Gastroesophageal reflux disease without esophagitis Esophageal reflux Rheumatoid arthritis of other site, unspecified whether rheumatoid factor present (HCC) MARILIA on CPAP Obstructive sleep apnea (adult) (pediatric) 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 History of DVT (deep vein thrombosis) Personal history of venous thrombosis and embolism History of left breast cancer Controlled type 2 diabetes mellitus without complication, without long-term current use of insulin (HCC) Obesity, Class III, BMI >= 40 Morbid obesity Mixed hyperlipidemia History of colorectal cancer Postoperative hypothyroidism- Primary Postsurgical hypothyroidism [facility] Diagnosis Pre-operative examination- Primary Preoperative examination, unspecified Lipoma of torso Paroxysmal atrial fibrillation (HCC) Atrial fibrillation Chronic diastolic heart failure (HCC) Chronic diastolic heart failure Essential hypertension Unspecified essential hypertension Gastroesophageal reflux disease without esophagitis Esophageal reflux Rheumatoid arthritis of other site, unspecified whether rheumatoid factor present (HCC) MARILIA on CPAP Obstructive sleep apnea (adult) (pediatric) 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 History of DVT (deep vein thrombosis) Personal history of venous thrombosis and embolism History of left breast cancer Controlled type 2 diabetes mellitus without complication, without long-term current use of insulin (HCC) Obesity, Class III, BMI >= 40 Morbid obesity Mixed hyperlipidemia History of colorectal cancer Postoperative hypothyroidism Postsurgical hypothyroidism [facility] Diagnosis Pre-operative examination- Primary Preoperative examination, unspecified Lipoma of torso Paroxysmal atrial fibrillation (HCC) Atrial fibrillation Chronic diastolic heart failure (HCC) Chronic diastolic heart failure Essential hypertension Unspecified essential hypertension Gastroesophageal reflux disease without esophagitis Esophageal reflux Rheumatoid arthritis of other site, unspecified whether rheumatoid factor present (HCC) MARILIA on CPAP Obstructive sleep apnea (adult) (pediatric) 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 History of DVT [...] Unspecified essential hypertension 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 [facility] Diagnosis Pre-operative examination- Primary Preoperative examination, unspecified Lipoma of torso Paroxysmal atrial fibrillation (HCC) Atrial fibrillation Chronic diastolic heart failure (HCC) Chronic diastolic heart failure Essential hypertension Unspecified essential hypertension Gastroesophageal reflux disease without esophagitis Esophageal reflux Rheumatoid arthritis of other site, unspecified whether rheumatoid factor present (HCC) MARILIA on CPAP Obstructive sleep apnea (adult) (pediatric) 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 History of DVT [...] insulin (HCC)- Primary [facility] Diagnosis Pre-operative examination- Primary Preoperative examination, unspecified Lipoma of torso Paroxysmal atrial fibrillation (HCC) Atrial fibrillation Chronic diastolic heart failure (HCC) Chronic diastolic heart failure Essential hypertension Unspecified essential hypertension Gastroesophageal reflux disease without esophagitis Esophageal reflux Rheumatoid arthritis of other site, unspecified whether rheumatoid factor present (HCC) MARILIA on CPAP Obstructive sleep apnea (adult) (pediatric) 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 History of DVT (deep vein thrombosis) Personal history of venous thrombosis and embolism History of left breast cancer Controlled type 2 diabetes mellitus without complication, without long-term current use of insulin (HCC) Obesity, Class III, BMI >= 40 Morbid obesity Mixed hyperlipidemia History of colorectal cancer Postoperative hypothyroidism Postsurgical hypothyroidism [facility] Diagnosis Pre-operative examination- Primary Preoperative examination, unspecified Lipoma of torso Paroxysmal atrial fibrillation (HCC) Atrial fibrillation Chronic diastolic heart failure (HCC) Chronic diastolic heart failure Essential hypertension Unspecified essential hypertension Gastroesophageal reflux disease without esophagitis Esophageal reflux Rheumatoid arthritis of other site, unspecified whether rheumatoid factor present (HCC) MARILIA on CPAP Obstructive sleep apnea (adult) (pediatric) 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 History of DVT [...] Unspecified essential hypertension 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 [facility] Diagnosis Pre-operative examination- Primary Preoperative examination, unspecified Lipoma of torso Paroxysmal atrial fibrillation (HCC) Atrial fibrillation Chronic diastolic heart failure (HCC) Chronic diastolic heart failure Essential hypertension Unspecified essential hypertension Gastroesophageal reflux disease without esophagitis Esophageal reflux Rheumatoid arthritis of other site, unspecified whether rheumatoid factor present (HCC) MARILIA on CPAP Obstructive sleep apnea (adult) (pediatric) 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 History of DVT [...] mention of hemorrhage) [facility] Diagnosis Pre-operative examination- Primary Preoperative examination, unspecified Lipoma of torso Paroxysmal atrial fibrillation (HCC) Atrial fibrillation Chronic diastolic heart failure (HCC) Chronic diastolic heart failure Essential hypertension Unspecified essential hypertension Gastroesophageal reflux disease without esophagitis Esophageal reflux Rheumatoid arthritis of other site, unspecified whether rheumatoid factor present (HCC) MARILIA on CPAP Obstructive sleep apnea (adult) (pediatric) 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 History of DVT [...] Unspecified essential hypertension 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 Chronic diastolic CHF [...] with vomiting Atrial fibrillation, unspecified type (HCC) MCC (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 Long-term (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 Obesity, Class III, BMI >= 40 Morbid obesity Diverticulitis Diverticulitis of colon (without mention of hemorrhage) [facility] Diagnosis Pre-operative examination- Primary Preoperative examination, unspecified Lipoma of torso Paroxysmal atrial fibrillation (HCC) Atrial fibrillation Chronic diastolic heart failure (HCC) Chronic diastolic heart failure Essential hypertension Unspecified essential hypertension Gastroesophageal reflux disease without esophagitis Esophageal reflux Rheumatoid arthritis of other site, unspecified whether rheumatoid factor present (HCC) MARILIA on CPAP Obstructive sleep apnea (adult) (pediatric) 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 History of DVT [...] mention of hemorrhage) documented in this encounter [facility] note* Diagnosis Pre-operative examination- Primary Preoperative examination, unspecified Lipoma of torso Paroxysmal atrial fibrillation (HCC) Atrial fibrillation Chronic diastolic heart failure (HCC) Chronic diastolic heart failure Essential hypertension Unspecified essential hypertension Gastroesophageal reflux disease without esophagitis Esophageal reflux Rheumatoid arthritis of other site, unspecified whether rheumatoid factor present (HCC) MARILIA on CPAP Obstructive sleep apnea (adult) (pediatric) 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 History of DVT (deep vein thrombosis) Personal history of venous thrombosis and embolism History of left breast cancer Controlled type 2 diabetes mellitus without complication, without long-term current use of insulin (HCC) Obesity, Class III, BMI >= 40 Morbid obesity Mixed hyperlipidemia History of colorectal cancer Type 2 diabetes mellitus with diabetic polyneuropathy, without long-term current use of insulin ([facility])- Primary Diverticulitis Diverticulitis of colon (without mention of hemorrhage) [facility] Diagnosis Pre-operative examination- Primary Preoperative examination, unspecified Lipoma of torso Paroxysmal atrial fibrillation (HCC) Atrial fibrillation Chronic diastolic heart failure (HCC) Chronic diastolic heart failure Essential hypertension Unspecified essential hypertension Gastroesophageal reflux disease without esophagitis Esophageal reflux Rheumatoid arthritis of other site, unspecified whether rheumatoid factor present (HCC) MARILIA on CPAP Obstructive sleep apnea (adult) (pediatric) 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 History of DVT [...] Unspecified essential hypertension 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 Chronic diastolic CHF [...] Personal history of venous thrombosis and embolism MCC current use of anticoagulant Long-term (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 Diverticulitis Diverticulitis of colon (without mention of hemorrhage) [facility] Diagnosis Pre-operative examination- Primary Preoperative examination, unspecified Lipoma of torso Paroxysmal atrial fibrillation (HCC) Atrial fibrillation Chronic diastolic heart failure (HCC) Chronic diastolic heart failure Essential hypertension Unspecified essential hypertension Gastroesophageal reflux disease without esophagitis Esophageal reflux Rheumatoid arthritis of other site, unspecified whether rheumatoid factor present (HCC) MARILIA on CPAP Obstructive sleep apnea (adult) (pediatric) 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 History of DVT [...] mention of hemorrhage) documented in this encounter [facility] note* Diagnosis Pre-operative examination- Primary Preoperative examination, unspecified Lipoma of torso Paroxysmal atrial fibrillation (HCC) Atrial fibrillation Chronic diastolic heart failure (HCC) Chronic diastolic heart failure Essential hypertension Unspecified essential hypertension Gastroesophageal reflux disease without esophagitis Esophageal reflux Rheumatoid arthritis of other site, unspecified whether rheumatoid factor present (HCC) MARILIA on CPAP Obstructive sleep apnea (adult) (pediatric) 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 History of DVT (deep vein thrombosis) Personal history of venous thrombosis and embolism History of left breast cancer Controlled type 2 diabetes mellitus without complication, without long-term current use of insulin (HCC) Obesity, Class III, BMI >= 40 Morbid obesity Mixed hyperlipidemia History of colorectal cancer Diverticulitis Diverticulitis of colon (without mention of hemorrhage) [facility] Work [facility]: Patient's home Plan of care note* Visit Details Visit Type -SN SOC IV Discipline -Halfway Problems Problem Description Start Date Status Goals [...] storage of medications. SPO2 Description: Notify Leonora Davalos APRN.SPOOL MAKER if pulse ox is <92% at rest. [...] indicated to help with indigestion. Taking an [id number] probiotic or eating yogurt with live and [...] Discuss all medications you are taking, even [id number] medicines, with your provider and pharmacist since [...] goal of infusion therapy, how to contact [facility], how and when to contact [...] of sepsis Completed documented in this encounter [facility] Plan of care note* Visit Details Visit Type -SN ROUTINE IV Discipline -Halfway Problems Problem Description Start Date Status Goals [...] by patient to be achieved by 05/19/25. Heart Failure No Interventions Intervention Associated Problem/Goal [...] to order refills. SPO2 Description: Notify Leonora Davalos, RESTAURANT AREA DIRECTOR.SPOOL MAKER if pulse ox is <92% at rest. [...] Discuss all medications you are taking, even pici-gtg-jakibyo medicines, with your provider and pharmacist since [...] the HF binder. documented in this encounter [facility] home Plan of care note* Visit Details Visit Type -SN ROUTINE IV Discipline -Halfway Problems Problem Description Start Date Status Goals [...] to order refills. SPO2 Description: Notify Leonora Davalos, RESTAURANT AREA DIRECTOR.SPOOL MAKER if pulse ox is <92% at rest. [...] Discuss all medications you are taking, even nmbt-nqi-fmihwjs medicines, with your provider and pharmacist since [...] the HF binder. [facility] Visit Details Visit Type -SN IV PRN ON OLIVIER L Discipline -Halfway Problems Problem Description Start Date Status Goals [...] activity as tolerated SPO2 Description: Notify Leonora Davalos, RESTAURANT AREA DIRECTOR.SPOOL MAKER if pulse ox is <92% at rest. [...] indicated to help with indigestion. Taking an ziek-yey-yxvrgzc probiotic or eating yogurt with live and [...] Discuss all medications you are taking, even ylkx-llo-opljcra medicines, with your provider and pharmacist since [...] goal of infusion therapy, how to contact [facility] and how and when to [...] of sepsis Completed [facility] Visit Details Visit Type -SN IV PRN Discipline -Halfway Problems Problem Description Start Date Status Goals [...] Visit Notes SPO2 Description: Notify Leonora Davalos, RESTAURANT AREA DIRECTOR.SPOOL MAKER if pulse ox is <92% at rest. [...] indicated to help with indigestion. Taking an byxv-nrk-jvqizbh probiotic or eating yogurt with live and [...] goal of infusion therapy, how to contact [facility], how and when to contact [...] of sepsis Completed [facility] Visit Details Visit Type -SN ROUTINE IV Discipline -Halfway Problems Problem Description Start Date Status Goals [...] d in this visit SN Labwork Disciplines: 03/21/2025 Active 1 goal linked to [...] bony prominences, Routine skin care and Notifying [facility] clinician of changes to skin integrity Evaluation for pressure reduction surfaces completed for chair and recommendations made for Pressure relief. SPO2 Description: Notify Leonora Davalos APRN.SPOOL MAKER if pulse ox is <92% at rest. [...] indicated to help with indigestion. Taking an bxga-sbl-kngfkfw probiotic or eating yogurt with live and [...] Discuss all medications you are taking, even ojey-plv-rzltweu medicines, with your provider and pharmacist since [...] goal of infusion therapy, how to contact [facility], how and when to contact [...] QMon. Results to Dr. Manley Phone/Fax number [phone]. If unable to draw blood through IV access device, may draw blood peripherally. Problem:SN Labwork Goal:SN to obtain lab specimen without difficulty when ordered throughout certification period Completed Delivered to [facility] Inflammatory Bowel Disease: Instruct patient/caregiver on measures [...] of sepsis Completed [facility] Visit Details Visit Type -SN IV PRN Discipline -Halfway Problems Problem Description Start Date Status Goals [...] medication schedule. SPO2 Description: Notify Leonora Davalos APRN.SPOOL MAKER if pulse ox is <92% at rest. [...] indicated to help with indigestion. Taking an mdxp-skd-bqdmmlv probiotic or eating yogurt with live and [...] goal of infusion therapy, how to contact [facility], how and when to contact [...] of sepsis Completed [facility] Visit Details Visit Type -SN IV PRN Discipline -Halfway Problems Problem Description Start Date Status Goals [...] in this visit SN Labwork Disciplines: SN 03/25/2025 Active 1 goal linked to scheduled/document [...] Visit Notes SPO2 Description: Notify Leonora Davalos, SHARLA.SPOOL MAKER if pulse ox is <92% at rest. [...] indicated to help with indigestion. Taking an nmjl-itt-lrdzmbm probiotic or eating yogurt with live and [...] instructed on the following: how to contact [facility], how and when to contact [...] certification period Completed documented in this encounter [facility] Plan of care note* Visit Details Visit Type -SN AGENCY DC W V ISIT IV Discipline -Halfway Problems Problem Description Start Date Status Goals [...] medication schedule. SPO2 Description: Notify Leonora Davalos APRN.SPOOL MAKER if pulse ox is <92% at rest. [...] indicated to help with indigestion. Taking an zeuc-hih-zurpskm probiotic or eating yogurt with live and [...] of sepsis Completed [facility] Author Carson Hobbs [facility] Note Date/Time June 27, 2025 9 :45am [facility] [address] [place] [address]. [address] [place] [address] OFFICE VISIT Date of Service: 06/27/25 MR#: [id number] Acct: [id number] Name: ALEXANDRA BELLA Rep #: [id number] : 1955 Provider: Dr. Júnior Hobbs MD Age/Sex: 69/F Location: [facility] [place] Status: Signed HPI HPI History of Present Illness Details: This is 69-year-old female who presents for a cardiovascular outpatient follow- up. 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 Required: No Accompanied by: Significant Other Is [...] meter (FreeStyle #1 ea 01/06/20 04/22/25 Rx [place] Lite kit) lancing device with lancets kit #1 ea 08/13/20 5 Rx (Game Trust Plus Lancing Device kit) compress.stocking,knee,reg,lrg #2 ea [...] you fallen in the past year?: No PFSH Medical History Body mass index (BMI) 35 or more Bilateral acute otitis media Type 2 diabetes mellitus with hyperglycemia Shingles Right bundle branch block (RBBB) Nonobstructive atherosclerosis of coronary artery Chronic diastolic (congestive) heart failure Bronchitis 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 Lichen sclerosus Lichen sclerosus Chronic sinusitis Yeast infection Hepatic fibrosis, stage 3 History of cardioversion Paroxysmal atrial fibrillation Pure hypercholesterolemia Rena Lara filter in place Rectal cancer PVD (peripheral [...] safe at home: Yes additional social history: [employer] Patient is retired ROS Const Const: Positive for fatigue; Negative for weakness, daytime sleepiness or difficulty sleeping ENT ENT: Positive for dizziness and balance problems; Negative for Nosebleed/epistaxis Cardio Chest Pain: No Palpitations: No Edema: Bilateral (BLE at times ) Resp Respiratory: Positive for SOB with activity; Negative for SOB at rest, SOB orthopnea\SOB lying down or Cough GI GI: Negative [...] Comment: Status post MICHAELA guided cardioversion at [facility] on 07/08/2019; Plan: She appears to be [...] 55 06/27/25 0946 <Electronically signed by Carson Hawley D> Date _ Carson Hobbs MD Cosigner Signature: Date (if applicable) CC: VANESSA Davalos ~ [employer] Work Phone: [employer] for referral (narrative)* Outpatient Procedure (Routine) - Authorized Specialty Diagnoses / Procedures Referred By Contac t Referred To Contact [facility] Diagnoses DEE (dyspnea on exertion) Procedures ECHO ECHO TTHRC R-T 2D W/WOM-MODE COMPL SPEC&COLR Tanya Guzmán APRN.CNP [address] [place] [address] [facility] [place] [address] Referral ID Status Reason Start Date Expiration Date Visits Requested Visits Authorized [id number] Authorized Auto-Generat ed Referral 02/14/2022 02/14/2023 1 1 [facility] for referral (narrative)* Outpatient Procedure (Routine) - Closed Specialty Diagnoses / Procedures Referred By Contac t Referred To Contact [facility] Diagnoses DEE (dyspnea on exertion) Procedures ECHO ECHO TTHRC R-T 2D W/WOM-MODE COMPL SPEC&COLR Tanya Guzmán RESTAURANT AREA DIRECTOR.SPOOL MAKER [address] [place] [address] [facility] [address] [place] [address] Referral ID Status Reason Start Date Expiration Date V isits Requested Visits Authorized [id number] Closed Auto-Generate d Referral 02/14/2022 02/14/2023 1 1 [facility] for referral (narrative)* Diagnostic Procedure Only (Routine) - Closed Specialty Diagnoses / Procedures Referred By Contac t Referred To Contact US IMAGING Diagnoses Fatty metamorphosis of liver Liver fibrosis Procedures US ABD RT UPPER QUADRANT US ABDOMINAL [place] W/[place] [address] [place] [address] Us Imaging Referral ID Status Reason Start Date Expiration Date V isits Requested Visits Authorized [id number] Closed Auto-Generate d Referral 12/31/2021 11/03/2022 1 1 T [facility] for referral (narrative)* Diagnostic Procedure Only (Routine) - Pending Review Specialty Diagnoses / Procedures Referred By Contac t Referred To Contact US IMAGING Diagnoses Fatty metamorphosis of liver Elevated liver enzymes Procedures US ABD RT UPPER QUADRANT US ABDOMINAL REAL [place] W/[place] [address] [place] [address] Us Imaging Referral ID Status Reason Start Date Expiration Date Visits Requested Visits Authorized [id number] Pending Review Auto-Generat ed Referral 12/07/2022 07/09/2023 1 1 [facility] for referral (narrative)* Outpatient Procedure (Routine) - Pending Review Specialty Diagnoses / Procedures Referred By Contac t Referred To Contact [facility] Diagnoses Diverticulitis Procedures COLONOSCOPY DIAGNOSTIC COLONOSCOPY FLX DX W/COLLJ [place] [address] [place] [address] [facility] [place] [address] [place] [address] Referral ID Status Reason Start Date Expiration Date Visits Requested Visits Authorized [id number] Pending Review Auto-Generat ed Referral 08/30/2023 1 1 [facility] for referral (narrative)* Diagnostic Procedure Only (Routine) - Closed Specialty Diagnoses / Procedures Referred By Contac t Referred To Contact US IMAGING Diagnoses Metabolic dysfunction-associated steatohepatitis (MASH) Procedures US ABD RIGHT UPPER QUADRANT US ABDOMINAL REAL TIME W/IMAGE LIMITED Uriah Mueller APRN.CNP [address] [place], [place] [id number] Us Imaging [facility] Referral ID Status Reason Start Date Expiration Date V isits Requested Visits Authorized [id number] Closed Auto-Generate d Referral 03/11/2024 04/10/2025 1 1 [facility] for referral (narrative)* Outpatient Procedure (Routine) - Closed Specialty Diagnoses / Procedures [facility] Diagnoses Nausea Procedures EGD DIAGNOSTIC ESOPHAGOGASTRODUODENOSC OPY [place] [address] [place] [address] [facility] [place] [address] [place], [place] [address] [place] [address] Referral ID Status Reason Start Date Expiration Date V isits Requested Visits Authorized [id number] Closed Auto-Generate d Referral 10/02/2022 09/30/2023 1 1 * Outpatient Procedure (Routine) - Closed Specialty Diagnoses / Procedures Referred By Contac t Referred To Contact [facility] Diagnoses Diverticulitis Procedures COLONOSCOPY DIAGNOSTIC COLONOSCOPY FLX DX W/[place] [address] [place] [address] [facility] [place] [address] [place] [address] Referral ID Status Reason Start Date Expiration Date V isits Requested Visits Authorized [id number] Closed Auto-Generate d Referral 08/30/2022 08/30/2023 1 1 [facility] Diagnostic Procedure Only (Routine) - Closed Specialty Diagnoses / Procedures Referred By Contac t Referred To Contact XR IMAGING Diagnoses Pain Procedures XR KNEE GENERAL 4V AP BOTH/PA BOTH/LAT/MERC LEFT RADIOLOGIC EXAM KNEE COMPLETE 4/MORE VIEWS Royer Ferguson PA-C [address] [place] [address] [place] [address] Referral ID Status Reason Start Date Expiration Date V isits Requested Visits Authorized [id number] Closed Auto-Generate d Referral 08/06/2024 09/05/2025 1 1 [facility]No reason for referral information availableWKettering Health [facility] Work Phone: Reason for visit Narrative* Outpatient Procedure (Routine) - Closed Specialty Diagnoses / Procedures Referred By Contac t Referred To [facility] Diagnoses DEE (dyspnea on exertion) Procedures ECHO ECHO TTHRC R-T 2D W/WOM-MODE COMPL SPEC&COLR Tanya Guzmán, RESTAURANT AREA DIRECTOR.SPOOL MAKER [address] [place] [address] [facility] [address] [place] [address] Referral ID Status Reason Start Date Expiration Date V isits Requested Visits Authorized [id number] Closed Auto-Generate d Referral 02/14/2022 02/14/2023 1 1 [facility] for visit Narrative* Diagnostic Procedure Only (Routine) - Closed Specialty Diagnoses / Procedures Referred By Contac t Referred To Contact US IMAGING Diagnoses Fatty metamorphosis of liver Liver fibrosis Procedures US ABD RT UPPER QUADRANT US ABDOMINAL REAL [place] W/[place] [address] [place] [id number] Us Imaging Referral ID Status Reason Start Date Expiration Date V isits Requested Visits Authorized [id number] Closed Auto-Generate d Referral 12/31/2021 11/03/2022 1 1 [facility] for visit Narrative* Outpatient Procedure (Routine) - Closed Specialty Diagnoses / Procedures Referred By Contac t Referred To Contact [facility] Diagnoses Metabolic dysfunction-associated steatohepatitis (MASH) Procedures DDI VIBRATION CONTROLLED TRANSIENT ELASTOGRAPHY (VCTE) LIVER ELASTOGRAPHY W/O IMAG W/I&R Uriah Mueller, RESTAURANT AREA DIRECTOR.SPOOL MAKER [address] [place] [phone] [facility] [place] [address] [place] [address] Referral ID Status Reason Start Date Expiration Date V isits Requested Visits Authorized [id number] Closed Auto-Generate d Referral 03/11/2024 03/11/2025 1 1 [facility] for visit Narrative* Diagnostic Procedure Only (Routine) - Closed Specialty Diagnoses / Procedures Referred By Contac t Referred To Contact US IMAGING Diagnoses Metabolic dysfunction-associated steatohepatitis (MASH) Procedures US ABD RIGHT UPPER QUADRANT US ABDOMINAL REAL TIME W/IMAGE LIMITED Uriah Mueller, RESTAURANT AREA DIRECTOR.SPOOL MAKER [address] [place] [address] [place] [address] Referral ID Status Reason Start Date Expiration Date V isits Requested Visits Authorized [id number] Closed Auto-Generate d Referral 03/11/2024 04/10/2025 1 1 [facility] for visit Narrative* Outpatient Procedure (Routine) - Closed Specialty Diagnoses / Procedures Referred By Contac t Referred To Contact [facility] Diagnoses Diverticulitis Procedures COLONOSCOPY DIAGNOSTIC COLONOSCOPY FLX DX W/COLLJ [place] [address] [place] [address] [facility] [address] [place] [address] Referral ID Status Reason Start Date Expiration Date V isits Requested Visits Authorized [id number] Closed Auto-Generate d Referral 08/30/2022 08/30/2023 1 1 [facility] for visit Narrative* MRI/CT (Routine) - Closed Specialty Diagnoses / Procedures Referred By Contac t Referred To Contact CT IMAGING Diagnoses Diverticulitis Nausea and vomiting, unspecified vomiting type Diarrhea, unspecified type Procedures CT ABD/PEL W IVCON CT ABD & PELVIS W/[place] [address] [place] [address] Phone: tel: fax: [place] [address] Referral ID Status Reason Start Date Expiration Date V isits Requested Visits Authorized [id number] Closed Auto-Generate d Referral 04/15/2025 05/08/2026 1 1 [facility] for visit Narrative* Outpatient Procedure (Routine) - Closed Specialty Diagnoses / Procedures Referred By Contac t Referred To Contact [facility] Diagnoses Diverticulitis Procedures COLONOSCOPY DIAGNOSTIC COLONOSCOPY FLX DX W/[place] [address] [place] [address] Phone: tel: fax: [facility] [address] [place] [address] Referral ID Status Reason Start Date Expiration Date V isits Requested Visits Authorized [id number] Closed Auto-Generate d Referral 03/28/2025 03/28/2026 1 1 [facility] Summary Purpose Family History No Family History [...] Yes May 06 0 5:23pm Power of Bottom Sprayer Yes May 06 5:23pm Documents on File Type Date Recorded Patient Whizzer Hand Expl anation Advance Directive(s) 09/23/2021 12:11 PM [...] January 25, 2022 1 1:31am Power of Bottom Sprayer Yes January 25, 2022 11:31am Documents on File Type Date Recorded Patient Whizzer Hand Expl anation Advance Directive(s) 09/23/2021 12:11 PM [...] Will Yes June 16 2:28pm Power of Bottom Sprayer Yes June 16 022 2:28pm Advance Directive Response Recorded Date/ Time Name of Medical Power of Bottom Sprayer dilma bella August 27, 2022 9:30pm Living Will Yes August 27, 022 9:30pm Power of Bottom Sprayer Yes August 27, 2022 9:30pm Advance Directive Response Recorded Date/ Time Name of Medical Power of Bottom Sprayer dilma bella August 27, 2022 10:30pm Living Will Yes August 27 10:30pm Power of Bottom Sprayer Yes August 27, 2022 10:30pm Advance Directive Response Recorded Date/ Time Living Will Yes August 27 10:30pm Power of Bottom Sprayer Yes August 27, 2022 10:30pm Advance Directive Response Recorded Date/ Time Living Will Yes August 27 9:30pm Power of Bottom Sprayer Yes August 27, 2022 9:30pm Advance Directive Response Recorded Date/ Time Living Will Yes August 27 10:30pm Power of Bottom Sprayer Yes August 27, 2022 10:30pm Living Will No September 26 5:53pm Power of Bottom Sprayer No September 26, 2024 5:53pm Advance Directive Response Recorded Date/ Time Living Will Yes August 27 10:30pm Do you have a Healthcare Power of Bottom Sprayer? Yes August 27, 2022 10:30pm Living Will No September 26 5:53pm Do you have a Healthcare Power of Bottom Sprayer? No September 26, 2024 5:53pm Advance Directive Response Recorded Date/ Time Living Will Yes August 27 10:30pm Do you have a Healthcare Power of Bottom Sprayer? Yes August 27, 2022 10:30pm Date Activated [...] MO) 6 M FU Reason for Visit [id number] Body mass index (BMI) 35 or more CHF (congestive heart failure) Mixed hyperlipidemia Paroxysmal atrial fibrillation Diabetes Mixed hyperlipidemia Morbid obesity with BMI of 45.0-49.9, adult Postsurgical hypothyroidism [id number] Body mass index (BMI) 35 or more [...] with BMI of 45.0-49.9, adult Postsurgical hypothyroidism [id number] Body mass index (BMI) 35 or more CHF (congestive heart failure) Mixed hyperlipidemia Paroxysmal atrial fibrillation Body mass index (BMI) 35 or more CHF (congestive heart failure) Rheumatoid arthritis Sleep apnea Bilateral acute otitis media Bronchitis Chief Complaint [address] cough covid-N 6 M FU 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) Encounter for screening for malignant neoplasm of Ear Infection SCREENING Other chronic sinusitis Reason for Visit Diastolic dysfunctio n Bilateral acute otitis media Maxillary sinusitis, acute Rheumatoid arthritis Sleep apnea Body mass index (BMI) 35 or more FLO III (cervical intraepithelial neoplasia grade III) with severe dysplasia 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 Lichen sclerosus Diabetes Morbid obesity with BMI of 45.0-49.9, adult LLAMAS (nonalcoholic steatohepatitis) Sleep apnea History of breast cancer Encounter for routine gynecological examination Diabetes Left otitis media Chief Complaint [address] Sinus infection [address] cough covid-N 6 M FU 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) Encounter for screening for malignant neoplasm of Ear Infection SCREENING Other chronic sinusitis N/V/D Reason for Visit Diastolic dysfunctio n Bilateral acute otitis media Maxillary sinusitis, acute Rheumatoid arthritis Sleep apnea Body mass index (BMI) 35 or more FLO III (cervical intraepithelial neoplasia grade III) with severe dysplasia 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 Lichen sclerosus Diabetes Morbid obesity with BMI of 45.0-49.9, adult LLAMAS (nonalcoholic steatohepatitis) Sleep apnea History of breast cancer Encounter for routine gynecological examination Diabetes Left otitis media Chief Complaint 9 M FU Sinus infection ST cough covid-N 6 M FU 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) Encounter for screening for malignant neoplasm of Ear Infection SCREENING Other chronic sinusitis N/V/D H FU Reason for Visit Diastolic dysfunctio n Bilateral acute otitis media Maxillary sinusitis, acute Rheumatoid arthritis Sleep apnea Body mass index (BMI) 35 or more FLO III (cervical intraepithelial neoplasia grade III) with severe dysplasia 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 Lichen sclerosus Diabetes Morbid obesity with BMI of 45.0-49.9, adult LLAMAS (nonalcoholic steatohepatitis) Sleep apnea History of breast cancer Encounter for routine gynecological examination Diabetes Left otitis media Diverticular disease LLAMAS (nonalcoholic steatohepatitis) Chief Complaint 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) Encounter for screening for malignant neoplasm of Ear Infection SCREENING Other chronic sinusitis N/V/D H FU 6 M FU INT LABS Reason for Visit FLO III (cervical in traepithelial neoplasia grade III) with severe dysplasia 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 Lichen sclerosus [...] 6 M FU 2 m fu per [facility] SCREENING Reason for Visit Dyspnea on exertion Fatigue Paroxysmal atrial fibrillation Pure hypercholesterolemia Right bundle branch block (RBBB) Diastolic dysfunction Rheumatoid arthritis Sleep apnea Body mass index (BMI) 35 or more Dyspnea on exertion Fatigue Paroxysmal atrial fibrillation Pure hypercholesterolemia Right bundle branch block (RBBB) Diastolic dysfunction Chief Complaint DYSPNEA Amb Documentation 6 M FU 2 m fu per [facility] SCREENING 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) 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 Reason for Visit Rheumatoid arthritis Sleep apnea Body mass index (BMI) 35 or more Dyspnea on exertion Fatigue Paroxysmal atrial fibrillation Pure hypercholesterolemia Right bundle branch block (RBBB) Diastolic dysfunction FLO III (cervical intraepithelial neoplasia grade III) with severe dysplasia History of left breast cancer Lichen sclerosus Encounter for routine gynecological examination Chief Complaint Admit Date 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) September 02, 2024 9:29am 6 M FU [...] with severe dysplasia September 02, 2024 9:29am 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 September 02, [...] 7:1 6pm Chief Complaint Admit Date 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) September 02, 2024 9:29am 6 M FU [...] with severe dysplasia September 02, 2024 9:29am 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 September 02, [...] 2024 3:06pm Chief Complaint Admit Date 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) September 02, 2024 9:29am 6 M FU [...] 10, 2025 2:35pm GERD (gastroesophageal reflux disease) [facility] 2024 2:35pm Dyspnea on exertion January 10, [...] 10, 2025 2:35pm GERD (gastroesophageal reflux disease) [facility] 2024 2:35pm Dyspnea on exertion January 10, 2025 2:35pm Obesity January 10, 2025 2:35pm Sleep apnea January 10, 2025 2:35pm Constipation January 23, 2025 7:26a m Diarrhea January 23, 2025 7:26a m GERD (gastroesophageal reflux disease) [facility] 2024 7:26am Chief Complaint Admit Date 6 [...] 2025 2:35pm GERD (gastroesophageal reflux disease) M 2024 2:35pm Dyspnea on exertion January 10, [...] 2025 5 :42am HX OF LIVER DISEASE May 28th, 2025 7:15a m Chief Complaint Admit Date [...] Referred By David t Referred To Contact Diagnoses Type 2 diabetes mellitus with diabetic polyneuropathy, without long-term current use of insulin (HCC) Eliceo Ambriz APRN.SPOOL [employer]KER [address] [address] Referral ID Status Reason Start Date Expiration Date Visits Re quested Visits Authorized [id number] Closed 1 1 Specialty Diagnoses / Procedures Referred By David t Referred To Contact Eliceo Ambriz APRN.SPOOL MAKER [address] [address] Referral ID Status Reason Start Date Expiration Date Visits Re quested Visits Authorized [id number] Closed 1 1 Specialty Diagnoses / Procedures Referred By Contac t Referred To Contact CT IMAGING Diagnoses Left lower quadrant abdominal pain Procedures CT ABD/PEL W IVCON CT ABD & PELVIS W/CONTRAST Uriah Mueller, RESTAURANT AREA DIRECTOR.SPOOL MAKER [address] [place] [address] [place] [address] Referral ID Status Reason Start Date Expiration Date Visits Requested Visits Authorized [id number] Pending Review Auto-Generat ed Referral 03/11/2024 04/10/2025 1 1 Specialty Diagnoses / Procedures Referred By Contac t Referred To Contact [facility] Diagnoses Metabolic dysfunction-associated steatohepatitis (MASH) Procedures DDI VIBRATION CONTROLLED TRANSIENT ELASTOGRAPHY (VCTE) LIVER ELASTOGRAPHY W/O IMAG W/I&R Uriah Mueller, RESTAURANT AREA DIRECTOR.SPOOL MAKER [address] [phone] [facility] [address] [phone] Referral ID Status Reason Start Date Expiration Date V isits Requested Visits Authorized [id number] Closed Auto-Generate d Referral 03/11/2024 03/11/2025 1 1 Specialty Diagnoses / Procedures Referred By Contac t Referred To Contact [facility] Diagnoses Metabolic dysfunction-associated steatohepatitis (MASH) Procedures US ABD RIGHT UPPER QUADRANT US ABDOMINAL REAL TIME W/IMAGE LIMITED Uriah Mueller, RESTAURANT AREA DIRECTOR.SPOOL MAKER [address] [phone] [place] [address] Referral ID Status Reason Start Date Expiration Date Visits Requested Visits Authorized [id number] Pending Review Auto-Generat ed Referral 03/11/2024 04/10/2025 1 1 Referral ID Status Reason Start Date Expiration Date V isits Requested Visits Authorized [id number] Closed Auto-Generate d Referral 03/11/2024 04/10/2025 1 1 Specialty Diagnoses / Procedures Referred By Contac t Referred To Contact Diagnoses Acquired hypothyroidism Type 2 diabetes mellitus with hyperglycemia, without long-term current use of insulin (HCC) Procedures CONSULT TO DIABETES EDUCATION [facility] MEDICAL NUTRITION ASSMT&IVNTJ INDIV EACH 15 [place] MEDICAL NUTRITION ASSMT&IVNTJ INDIV EACH 15 [place] MEDICAL NUTRITION ASSMT&IVNTJ INDIV EACH 15 [place] MEDICAL NUTRITION ASSMT&IVNTJ INDIV EACH 15 [place] Vaughn Decker MD [address] [place] [address] Referral ID Status Reason Start Date Expiration Date Visits Requested Visits Authorized [id number] Authorized PCP Requested Referral 04/17/2024 04/17/2025 1 1 Specialty Diagnoses / Procedures Referred By David t Referred To Contact Diagnoses Primary osteoarthritis of left knee BMI 50.0-59.9, adult (HCC) Elevated hemoglobin A1c Procedures ENDOCRINE MEDICAL WEIGHT MANAGEMENT OFFICE/OUTPATIENT [facility] 60 MINUTES Royer Ferguson PA-C [address] [place] [address] Referral ID Status Reason Start Date Expiration Date Visits Requested Visits Authorized [id number] Authorized PCP Requested Referral 08/07/2025 1 1 Additional Source Comments INFORMATION SOURCE (unrecogn ized section and content) DATE CREATED AUTHOR 02/17/2019 [employer] DATE CREATED AUTHOR AUTHOR'S ORGANIZ ATION 05/12/2020 [facility] DATE CREATED AUTHOR AUTHOR'S ORGANIZ ATION 06/05/2020 [facility] DATE CREATED AUTHOR AUTHOR'S ORGANIZ ATION 10/30/2024 [facility] DATE CREATED AUTHOR AUTHOR'S ORGANIZ ATION 04/24/2025 [facility] DATE CREATED AUTHOR AUTHOR'S ORGANIZ ATION 04/29/2025 [facility] DATE CREATED AUTHOR AUTHOR'S ORGANIZ ATION 05/23/2025 [facility] DATE CREATED AUTHOR AUTHOR'S ORGANIZ ATION 05/30/2025 [facility] DATE CREATED AUTHOR AUTHOR'S ORGANIZ ATION 07/23/2025 [facility] Goals (unrecognized section and content) Goals may [...] or prosecute any alcohol or drug abuse patient.[facility] the event this information is protected by the Federal Confidentiality of Alcohol and Drug Abuse Patient Records regulations: The Federal rules restrict any use of the information to criminally investigate or prosecute any alcohol or drug abuse patient.[facility] HospitalIn the event this information is protected by the Federal Confidentiality of Alcohol and Drug Abuse Patient Records regulations: The Federal rules restrict any use of the information to criminally investigate or prosecute any alcohol or drug abuse patient.[facility] HospitalIn the event this information is protected by the Federal Confidentiality of Alcohol and Drug Abuse Patient Records regulations: The Federal rules restrict any use of the information to criminally investigate or prosecute any alcohol or drug abuse patient.[facility] HospitalIn the event this information is protected by the Federal Confidentiality of Alcohol and Drug Abuse Patient Records regulations: The Federal rules restrict any use of the information to criminally investigate or prosecute any alcohol or drug abuse patient.[facility] HospitalIn the event this information is protected by the Federal Confidentiality of Alcohol and Drug Abuse Patient Records regulations: The Federal rules restrict any use of the information to criminally investigate or prosecute any alcohol or drug abuse patient.[facility] HospitalIn the event this information is protected by the Federal Confidentiality of Alcohol and Drug Abuse Patient Records regulations: The Federal rules restrict any use of the information to criminally investigate or prosecute any alcohol or drug abuse patient.[facility] HospitalIn the event this information is protected by the Federal Confidentiality of Alcohol and Drug Abuse Patient Records regulations: The Federal rules restrict any use of the information to criminally investigate or prosecute any alcohol or drug abuse patient.[facility] HospitalIn the event this information is protected by the Federal Confidentiality of Alcohol and Drug Abuse Patient Records regulations: The Federal rules restrict any use of the information to criminally investigate or prosecute any alcohol or drug abuse patient.[facility] HospitalIn the event this information is protected by the Federal Confidentiality of Alcohol and Drug Abuse Patient Records regulations: The Federal rules restrict any use of the information to criminally investigate or prosecute any alcohol or drug abuse patient.[facility] HospitalIn the event this information is protected by the Federal Confidentiality of Alcohol and Drug Abuse Patient Records regulations: The Federal rules restrict any use of the information to criminally investigate or prosecute any alcohol or drug abuse patient.[facility] HospitalIn the event this information is protected by the Federal Confidentiality of Alcohol and Drug Abuse Patient Records regulations: The Federal rules restrict any use of the information to criminally investigate or prosecute any alcohol or drug abuse patient.[facility] HospitalIn the event this information is protected by the Federal Confidentiality of Alcohol and Drug Abuse Patient Records regulations: The Federal rules restrict any use of the information to criminally investigate or prosecute any alcohol or drug abuse patient.[facility] HospitalIn the event this information is protected by the Federal Confidentiality of Alcohol and Drug Abuse Patient Records regulations: The Federal rules restrict any use of the information to criminally investigate or prosecute any alcohol or drug abuse patient.[facility] HospitalIn the event this information is protected by the Federal Confidentiality of Alcohol and Drug Abuse Patient Records regulations: The Federal rules restrict any use of the information to criminally investigate or prosecute any alcohol or drug abuse patient.[facility] HospitalIn the event this information is protected by the Federal Confidentiality of Alcohol and Drug Abuse Patient Records regulations: The Federal rules restrict any use of the information to criminally investigate or prosecute any alcohol or drug abuse patient.[facility] HospitalIn the event this information is protected by the Federal Confidentiality of Alcohol and Drug Abuse Patient Records regulations: The Federal rules restrict any use of the information to criminally investigate or prosecute any alcohol or drug abuse patient.[facility] HospitalIn the event this information is protected by the Federal Confidentiality of Alcohol and Drug Abuse Patient Records regulations: The Federal rules restrict any use of the information to criminally investigate or prosecute any alcohol or drug abuse patient.[facility] HospitalIn the event this information is protected by the Federal Confidentiality of Alcohol and Drug Abuse Patient Records regulations: The Federal rules restrict any use of the information to criminally investigate or prosecute any alcohol or drug abuse patient.[facility] HospitalIn the event this information is protected by the Federal Confidentiality of Alcohol and Drug Abuse Patient Records regulations: The Federal rules restrict any use of the information to criminally investigate or prosecute any alcohol or drug abuse patient.[facility] HospitalIn the event this information is protected by the Federal Confidentiality of Alcohol and Drug Abuse Patient Records regulations: The Federal rules restrict any use of the information to criminally investigate or prosecute any alcohol or drug abuse patient.[facility] HospitalIn the event this information is protected by the Federal Confidentiality of Alcohol and Drug Abuse Patient Records regulations: The Federal rules restrict any use of the information to criminally investigate or prosecute any alcohol or drug abuse patient.[facility] HospitalIn the event this information is protected by the Federal Confidentiality of Alcohol and Drug Abuse Patient Records regulations: The Federal rules restrict any use of the information to criminally investigate or prosecute any alcohol or drug abuse patient.[facility] HospitalIn the event this information is protected by the Federal Confidentiality of Alcohol and Drug Abuse Patient Records regulations: The Federal rules restrict any use of the information to criminally investigate or prosecute any alcohol or drug abuse patient.[facility] HospitalIn the event this information is protected by the Federal Confidentiality of Alcohol and Drug Abuse Patient Records regulations: The Federal rules restrict any use of the information to criminally investigate or prosecute any alcohol or drug abuse patient.[facility] HospitalIn the event this information is protected by the Federal Confidentiality of Alcohol and Drug Abuse Patient Records regulations: The Federal rules restrict any use of the information to criminally investigate or prosecute any alcohol or drug abuse patient.[facility] HospitalIn the event this information is protected by the Federal Confidentiality of Alcohol and Drug Abuse Patient Records regulations: The Federal rules restrict any use of the information to criminally investigate or prosecute any alcohol or drug abuse patient.[facility] HospitalIn the event this information is protected by the Federal Confidentiality of Alcohol and Drug Abuse Patient Records regulations: The Federal rules restrict any use of the information to criminally investigate or prosecute any alcohol or drug abuse patient.[facility] HospitalIn the event this information is protected by the Federal Confidentiality of Alcohol and Drug Abuse Patient Records regulations: The Federal rules restrict any use of the information to criminally investigate or prosecute any alcohol or drug abuse patient.[facility] HospitalIn the event this information is protected by the Federal Confidentiality of Alcohol and Drug Abuse Patient Records regulations: The Federal rules restrict any use of the information to criminally investigate or prosecute any alcohol or drug abuse patient.[facility] HospitalIn the event this information is protected by the Federal Confidentiality of Alcohol and Drug Abuse Patient Records regulations: The Federal rules restrict any use of the information to criminally investigate or prosecute any alcohol or drug abuse patient.[facility] HospitalIn the event this information is protected by the Federal Confidentiality of Alcohol and Drug Abuse Patient Records regulations: The Federal rules restrict any use of the information to criminally investigate or prosecute any alcohol or drug abuse patient.[facility] HospitalIn the event this information is protected by the Federal Confidentiality of Alcohol and Drug Abuse Patient Records regulations: The Federal rules restrict any use of the information to criminally investigate or prosecute any alcohol or drug abuse patient.[facility] HospitalIn the event this information is protected by the Federal Confidentiality of Alcohol and Drug Abuse Patient Records regulations: The Federal rules restrict any use of the information to criminally investigate or prosecute any alcohol or drug abuse patient.[facility] HospitalIn the event this information is protected by the Federal Confidentiality of Alcohol and Drug Abuse Patient Records regulations: The Federal rules restrict any use of the information to criminally investigate or prosecute any alcohol or drug abuse patient.[facility] HospitalIn the event this information is protected by the Federal Confidentiality of Alcohol and Drug Abuse Patient Records regulations: The Federal rules restrict any use of the information to criminally investigate or prosecute any alcohol or drug abuse patient.[facility] HospitalIn the event this information is protected by the Federal Confidentiality of Alcohol and Drug Abuse Patient Records regulations: The Federal rules restrict any use of the information to criminally investigate or prosecute any alcohol or drug abuse patient.[facility] HospitalIn the event this information is protected by the Federal Confidentiality of Alcohol and Drug Abuse Patient Records regulations: The Federal rules restrict any use of the information to criminally investigate or prosecute any alcohol or drug abuse patient.[facility] HospitalIn the event this information is protected by the Federal Confidentiality of Alcohol and Drug Abuse Patient Records regulations: The Federal rules restrict any use of the information to criminally investigate or prosecute any alcohol or drug abuse patient.[facility] HospitalIn the event this information is protected by the Federal Confidentiality of Alcohol and Drug Abuse Patient Records regulations: The Federal rules restrict any use of the information to criminally investigate or prosecute any alcohol or drug abuse patient.[facility] HospitalIn the event this information is protected by the Federal Confidentiality of Alcohol and Drug Abuse Patient Records regulations: The Federal rules restrict any use of the information to criminally investigate or prosecute any alcohol or drug abuse patient.[facility] HospitalIn the event this information is protected by the Federal Confidentiality of Alcohol and Drug Abuse Patient Records regulations: The Federal rules restrict any use of the information to criminally investigate or prosecute any alcohol or drug abuse patient.[facility] HospitalIn the event this information is protected by the Federal Confidentiality of Alcohol and Drug Abuse Patient Records regulations: The Federal rules restrict any use of the information to criminally investigate or prosecute any alcohol or drug abuse patient.[facility] HospitalIn the event this information is protected by the Federal Confidentiality of Alcohol and Drug Abuse Patient Records regulations: The Federal rules restrict any use of the information to criminally investigate or prosecute any alcohol or drug abuse patient.[facility] HospitalIn the event this information is protected by the Federal Confidentiality of Alcohol and Drug Abuse Patient Records regulations: The Federal rules restrict any use of the information to criminally investigate or prosecute any alcohol or drug abuse patient.[facility] HospitalIn the event this information is protected by the Federal Confidentiality of Alcohol and Drug Abuse Patient Records regulations: The Federal rules restrict any use of the information to criminally investigate or prosecute any alcohol or drug abuse patient.[facility] HospitalIn the event this information is protected by the Federal Confidentiality of Alcohol and Drug Abuse Patient Records regulations: The Federal rules restrict any use of the information to criminally investigate or prosecute any alcohol or drug abuse patient.[facility] HospitalIn the event this information is protected by the Federal Confidentiality of Alcohol and Drug Abuse Patient Records regulations: The Federal rules restrict any use of the information to criminally investigate or prosecute any alcohol or drug abuse patient.[facility] HospitalIn the event this information is protected by the Federal Confidentiality of Alcohol and Drug Abuse Patient Records regulations: The Federal rules restrict any use of the information to criminally investigate or prosecute any alcohol or drug abuse patient.[facility] HospitalIn the event this information is protected by the Federal Confidentiality of Alcohol and Drug Abuse Patient Records regulations: The Federal rules restrict any use of the information to criminally investigate or prosecute any alcohol or drug abuse patient.[facility] HospitalIn the event this information is protected by the Federal Confidentiality of Alcohol and Drug Abuse Patient Records regulations: The Federal rules restrict any use of the information to criminally investigate or prosecute any alcohol or drug abuse patient.[facility] HospitalIn the event this information is protected by the Federal Confidentiality of Alcohol and Drug Abuse Patient Records regulations: The Federal rules restrict any use of the information to criminally investigate or prosecute any alcohol or drug abuse patient.[facility] HospitalIn the event this information is protected by the Federal Confidentiality of Alcohol and Drug Abuse Patient Records regulations: The Federal rules restrict any use of the information to criminally investigate or prosecute any alcohol or drug abuse patient.[facility] HospitalIn the event this information is protected by the Federal Confidentiality of Alcohol and Drug Abuse Patient Records regulations: The Federal rules restrict any use of the information to criminally investigate or prosecute any alcohol or drug abuse patient.[facility] HospitalIn the event this information is protected by the Federal Confidentiality of Alcohol and Drug Abuse Patient Records regulations: The Federal rules restrict any use of the information to criminally investigate or prosecute any alcohol or drug abuse patient.[facility] HospitalIn the event this information is protected by the Federal Confidentiality of Alcohol and Drug Abuse Patient Records regulations: The Federal rules restrict any use of the information to criminally investigate or prosecute any alcohol or drug abuse patient.[facility] HospitalIn the event this information is protected by the Federal Confidentiality of Alcohol and Drug Abuse Patient Records regulations: The Federal rules restrict any use of the information to criminally investigate or prosecute any alcohol or drug abuse patient.[facility] HospitalIn the event this information is protected by the Federal Confidentiality of Alcohol and Drug Abuse Patient Records regulations: The Federal rules restrict any use of the information to criminally investigate or prosecute any alcohol or drug abuse patient.[facility] HospitalIn the event this information is protected by the Federal Confidentiality of Alcohol and Drug Abuse Patient Records regulations: The Federal rules restrict any use of the information to criminally investigate or prosecute any alcohol or drug abuse patient.[facility] HospitalIn the event this information is protected by the Federal Confidentiality of Alcohol and Drug Abuse Patient Records regulations: The Federal rules restrict any use of the information to criminally investigate or prosecute any alcohol or drug abuse patient.[facility] HospitalIn the event this information is protected by the Federal Confidentiality of Alcohol and Drug Abuse Patient Records regulations: The Federal rules restrict any use of the information to criminally investigate or prosecute any alcohol or drug abuse patient.[facility] HospitalIn the event this information is protected by the Federal Confidentiality of Alcohol and Drug Abuse Patient Records regulations: The Federal rules restrict any use of the information to criminally investigate or prosecute any alcohol or drug abuse patient.[facility] HospitalIn the event this information is protected by the Federal Confidentiality of Alcohol and Drug Abuse Patient Records regulations: The Federal rules restrict any use of the information to criminally investigate or prosecute any alcohol or drug abuse patient.[facility] HospitalIn the event this information is protected by the Federal Confidentiality of Alcohol and Drug Abuse Patient Records regulations: The Federal rules restrict any use of the information to criminally investigate or prosecute any alcohol or drug abuse patient.[facility] HospitalIn the event this information is protected by the Federal Confidentiality of Alcohol and Drug Abuse Patient Records regulations: The Federal rules restrict any use of the information to criminally investigate or prosecute any alcohol or drug abuse patient.[facility] HospitalIn the event this information is protected by the Federal Confidentiality of Alcohol and Drug Abuse Patient Records regulations: The Federal rules restrict any use of the information to criminally investigate or prosecute any alcohol or drug abuse patient.[facility] HospitalIn the event this information is protected by the Federal Confidentiality of Alcohol and Drug Abuse Patient Records regulations: The Federal rules restrict any use of the information to criminally investigate or prosecute any alcohol or drug abuse patient.[facility] HospitalIn the event this information is protected by the Federal Confidentiality of Alcohol and Drug Abuse Patient Records regulations: The Federal rules restrict any use of the information to criminally investigate or prosecute any alcohol or drug abuse patient.[facility] HospitalIn the event this information is protected by the Federal Confidentiality of Alcohol and Drug Abuse Patient Records regulations: The Federal rules restrict any use of the information to criminally investigate or prosecute any alcohol or drug abuse patient.[facility] HospitalIn the event this information is protected by the Federal Confidentiality of Alcohol and Drug Abuse Patient Records regulations: The Federal rules restrict any use of the information to criminally investigate or prosecute any alcohol or drug abuse patient.[facility] HospitalIn the event this information is protected by the Federal Confidentiality of Alcohol and Drug Abuse Patient Records regulations: The Federal rules restrict any use of the information to criminally investigate or prosecute any alcohol or drug abuse patient.[facility] HospitalIn the event this information is protected by the Federal Confidentiality of Alcohol and Drug Abuse Patient Records regulations: The Federal rules restrict any use of the information to criminally investigate or prosecute any alcohol or drug abuse patient.[facility] HospitalIn the event this information is protected by the Federal Confidentiality of Alcohol and Drug Abuse Patient Records regulations: The Federal rules restrict any use of the information to criminally investigate or prosecute any alcohol or drug abuse patient.[facility] HospitalIn the event this information is protected by the Federal Confidentiality of Alcohol and Drug Abuse Patient Records regulations: The Federal rules restrict any use of the information to criminally investigate or prosecute any alcohol or drug abuse patient.[facility] HospitalIn the event this information is protected by the Federal Confidentiality of Alcohol and Drug Abuse Patient Records regulations: The Federal rules restrict any use of the information to criminally investigate or prosecute any alcohol or drug abuse patient.[facility] HospitalIn the event this information is protected by the Federal Confidentiality of Alcohol and Drug Abuse Patient Records regulations: The Federal rules restrict any use of the information to criminally investigate or prosecute any alcohol or drug abuse patient.[facility] HospitalIn the event this information is protected by the Federal Confidentiality of Alcohol and Drug Abuse Patient Records regulations: The Federal rules restrict any use of the information to criminally investigate or prosecute any alcohol or drug abuse patient.[facility] HospitalIn the event this information is protected by the Federal Confidentiality of Alcohol and Drug Abuse Patient Records regulations: The Federal rules restrict any use of the information to criminally investigate or prosecute any alcohol or drug abuse patient.[facility] HospitalIn the event this information is protected by the Federal Confidentiality of Alcohol and Drug Abuse Patient Records regulations: The Federal rules restrict any use of the information to criminally investigate or prosecute any alcohol or drug abuse patient.[facility] HospitalIn the event this information is protected by the Federal Confidentiality of Alcohol and Drug Abuse Patient Records regulations: The Federal rules restrict any use of the information to criminally investigate or prosecute any alcohol or drug abuse patient.[facility] HospitalIn the event this information is protected by the Federal Confidentiality of Alcohol and Drug Abuse Patient Records regulations: The Federal rules restrict any use of the information to criminally investigate or prosecute any alcohol or drug abuse patient.[facility] HospitalIn the event this information is protected by the Federal Confidentiality of Alcohol and Drug Abuse Patient Records regulations: The Federal rules restrict any use of the information to criminally investigate or prosecute any alcohol or drug abuse patient.[facility] HospitalIn the event this information is protected by the Federal Confidentiality of Alcohol and Drug Abuse Patient Records regulations: The Federal rules restrict any use of the information to criminally investigate or prosecute any alcohol or drug abuse patient.[facility] HospitalIn the event this information is protected by the Federal Confidentiality of Alcohol and Drug Abuse Patient Records regulations: The Federal rules restrict any use of the information to criminally investigate or prosecute any alcohol or drug abuse patient.[facility] HospitalIn the event this information is protected by the Federal Confidentiality of Alcohol and Drug Abuse Patient Records regulations: The Federal rules restrict any use of the information to criminally investigate or prosecute any alcohol or drug abuse patient.[facility] HospitalIn the event this information is protected by the Federal Confidentiality of Alcohol and Drug Abuse Patient Records regulations: The Federal rules restrict any use of the information to criminally investigate or prosecute any alcohol or drug abuse patient.[facility] HospitalIn the event this information is protected by the Federal Confidentiality of Alcohol and Drug Abuse Patient Records regulations: The Federal rules restrict any use of the information to criminally investigate or prosecute any alcohol or drug abuse patient.[facility] HospitalIn the event this information is protected by the Federal Confidentiality of Alcohol and Drug Abuse Patient Records regulations: The Federal rules restrict any use of the information to criminally investigate or prosecute any alcohol or drug abuse patient.[facility] HospitalIn the event this information is protected by the Federal Confidentiality of Alcohol and Drug Abuse Patient Records regulations: The Federal rules restrict any use of the information to criminally investigate or prosecute any alcohol or drug abuse patient.[facility] HospitalIn the event this information is protected by the Federal Confidentiality of Alcohol and Drug Abuse Patient Records regulations: The Federal rules restrict any use of the information to criminally investigate or prosecute any alcohol or drug abuse patient.[facility] HospitalIn the event this information is protected by the Federal Confidentiality of Alcohol and Drug Abuse Patient Records regulations: The Federal rules restrict any use of the information to criminally investigate or prosecute any alcohol or drug abuse patient.[facility] HospitalIn the event this information is protected by the Federal Confidentiality of Alcohol and Drug Abuse Patient Records regulations: The Federal rules restrict any use of the information to criminally investigate or prosecute any alcohol or drug abuse patient.[facility] HospitalIn the event this information is protected by the Federal Confidentiality of Alcohol and Drug Abuse Patient Records regulations: The Federal rules restrict any use of the information to criminally investigate or prosecute any alcohol or drug abuse patient.[facility] HospitalIn the event this information is protected by the Federal Confidentiality of Alcohol and Drug Abuse Patient Records regulations: The Federal rules restrict any use of the information to criminally investigate or prosecute any alcohol or drug abuse patient.[facility] HospitalIn the event this information is protected by the Federal Confidentiality of Alcohol and Drug Abuse Patient Records regulations: The Federal rules restrict any use of the information to criminally investigate or prosecute any alcohol or drug abuse patient.[facility] HospitalIn the event this information is protected by the Federal Confidentiality of Alcohol and Drug Abuse Patient Records regulations: The Federal rules restrict any use of the information to criminally investigate or prosecute any alcohol or drug abuse patient.[facility] HospitalIn the event this information is protected by the Federal Confidentiality of Alcohol and Drug Abuse Patient Records regulations: The Federal rules restrict any use of the information to criminally investigate or prosecute any alcohol or drug abuse patient.[facility] HospitalIn the event this information is protected by the Federal Confidentiality of Alcohol and Drug Abuse Patient Records regulations: The Federal rules restrict any use of the information to criminally investigate or prosecute any alcohol or drug abuse patient.[facility] HospitalIn the event this information is protected by the Federal Confidentiality of Alcohol and Drug Abuse Patient Records regulations: The Federal rules restrict any use of the information to criminally investigate or prosecute any alcohol or drug abuse patient.[facility] HospitalIn the event this information is protected by the Federal Confidentiality of Alcohol and Drug Abuse Patient Records regulations: The Federal rules restrict any use of the information to criminally investigate or prosecute any alcohol or drug abuse patient.[facility] HospitalIn the event this information is protected by the Federal Confidentiality of Alcohol and Drug Abuse Patient Records regulations: The Federal rules restrict any use of the information to criminally investigate or prosecute any alcohol or drug abuse patient.[facility] HospitalIn the event this information is protected by the Federal Confidentiality of Alcohol and Drug Abuse Patient Records regulations: The Federal rules restrict any use of the information to criminally investigate or prosecute any alcohol or drug abuse patient.[facility] HospitalIn the event this information is protected by the Federal Confidentiality of Alcohol and Drug Abuse Patient Records regulations: The Federal rules restrict any use of the information to criminally investigate or prosecute any alcohol or drug abuse patient.[facility] HospitalIn the event this information is protected by the Federal Confidentiality of Alcohol and Drug Abuse Patient Records regulations: The Federal rules restrict any use of the information to criminally investigate or prosecute any alcohol or drug abuse patient.[facility] HospitalIn the event this information is protected by the Federal Confidentiality of Alcohol and Drug Abuse Patient Records regulations: The Federal rules restrict any use of the information to criminally investigate or prosecute any alcohol or drug abuse patient.[facility] HospitalIn the event this information is protected by the Federal Confidentiality of Alcohol and Drug Abuse Patient Records regulations: The Federal rules restrict any use of the information to criminally investigate or prosecute any alcohol or drug abuse patient.[facility] HospitalIn the event this information is protected by the Federal Confidentiality of Alcohol and Drug Abuse Patient Records regulations: The Federal rules restrict any use of the information to criminally investigate or prosecute any alcohol or drug abuse patient.[facility] HospitalIn the event this information is protected by the Federal Confidentiality of Alcohol and Drug Abuse Patient Records regulations: The Federal rules restrict any use of the information to criminally investigate or prosecute any alcohol or drug abuse patient.[facility] HospitalIn the event this information is protected by the Federal Confidentiality of Alcohol and Drug Abuse Patient Records regulations: The Federal rules restrict any use of the information to criminally investigate or prosecute any alcohol or drug abuse patient.[facility] HospitalIn the event this information is protected by the Federal Confidentiality of Alcohol and Drug Abuse Patient Records regulations: The Federal rules restrict any use of the information to criminally investigate or prosecute any alcohol or drug abuse patient.[facility] HospitalIn the event this information is protected by the Federal Confidentiality of Alcohol and Drug Abuse Patient Records regulations: The Federal rules restrict any use of the information to criminally investigate or prosecute any alcohol or drug abuse patient.[facility] HospitalIn the event this information is protected by the Federal Confidentiality of Alcohol and Drug Abuse Patient Records regulations: The Federal rules restrict any use of the information to criminally investigate or prosecute any alcohol or drug abuse patient.[facility] Reason for Visit (unrecogniz ed section and content) Reason Comments Injections Specialty Diagnoses / Procedures Referred By Contac t Referred To Contact ORTHOPAEDIC SURGERY Diagnoses Unilateral primary osteoarthritis, left knee Procedures EUFLEXXA INJ PER DOSE EUFLEXXA OR PAYOR PREFERRED Royer Ferguson PA-C [address] [place] [address] [facility] [address] [place] [address] Referral ID Status Reason Start Date Expiration Date V isits Requested Visits Authorized [id number] Authorized 08/16/2024 09/10/2024 99 99 Reason Comments [...] CT ABD & PELVIS W/CONTRAST Uriah Mueller, RESTAURANT AREA DIRECTOR.SPO[employer]KER [id number] [place] [address] Referral ID Status Reason Start Date Expiration Date V isits Requested Visits Authorized [id number] Closed Auto-Generate d Referral 03/11/2024 04/10/2025 1 1 Reason Comments Results Reason Comments Follow Up Tests Results Fibroscan---->ne eds f/u OV in 1 month Reason Comments Recheck Reason Comments Electronic Communication With Dr. 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 Reason Onset Date Comments Refill Request 05/17/2024 Reason Comments Appointment Needs OV with CRITICAL CARE RN or PA Reason Onset Date Comments Refill Request 05/22/2024 Reason Comments High Blood Sugar Reason Comments Radio Gen RMP Specialty Diagnoses / Procedures Referred By Contac t Referred To Contact XR IMAGING Diagnoses Pain Procedures XR KNEE GENERAL 4V AP BOTH/PA BOTH/LAT/MERC LEFT RADIOLOGIC EXAM KNEE COMPLETE 4/MORE VIEWS Royer Ferguson, PAErwin [address] [place] [address] [facility] [place] [id number] Referral ID Status Reason Start Date Expiration Date V isits Requested Visits Authorized [id number] Closed Auto-Generate d Referral 08/06/2024 09/05/2025 1 [...] Care Teams (unrecognized sec tion and content) Special Services Director Relationship Specialty Start Date End Date Shiraz Stephens MD [address] [place] [address] PCP - General Internal Medicine 09/18/21 Ryan Tovar MD Consulting Ent - Otolaryngology 06/23/20 [place] [address] [address] [place], [place] [id number] [employer] Consultant Gastroenterology 11/02/21 Special Services Director Relationship Specialty Start Date End Date Shiraz Stephens MD [address] [place] [address] PCP - General Internal Medicine 09/18/21 Ryan Tovar MD Consulting Ent - Otolaryngology 06/23/20 [place] [address] [place], [place] [id number] [employer] Iam Consultant Gastroenterology 11/02/21 Special Services Director Relationship Specialty Start Date End Date Shiraz Stephens MD [address] [place] [address] PCP - General Internal Medicine 09/18/21 Ryan Tovar MD Consulting Ent - Otolaryngology 06/23/20 [place] [address] [address] [place], [place] [id number] [employer]am Consultant Gastroenterology 11/02/21 Aly Mosley [place] [facility] [place] [address] Baggage Smasher Cardiology 02/14/22 Special Services Director Relationship Specialty Start Date End Date Shiraz Stephens MD [address] [place] [address] PCP - General Internal Medicine 09/18/21 Ryan Tovar MD Consulting Ent - Otolaryngology 06/23/20 [place] [address] [place] [address] [employer] Iam Consultant Gastroenterology 11/02/21 Aly Mosley [place] [facility] [place] [address] Baggage Smasher Cardiology 02/14/22 Special Services Director Relationship Specialty Start Date End Date Leonora Davalos, RESTAURANT AREA DIRECTOR.[facility] [address] [address] PCP - General Family Practice 02/21/22 Ryan Tovar MD Consulting Ent - Otolaryngology 06/23/20 [place] [address] [place] [address] [employer] Iam Consultant Gastroenterology 11/02/21 Aly Mosley [place] [facility] [place] [address] Baggage Smasher Cardiology 02/14/22 Special Services Director Relationship Specialty Start Date End Date Leonora Davalos, RESTAURANT AREA DIRECTOR.SPO[employer] [address] [place] [address] PCP - General Family Practice 02/21/22 Ryan Tovar MD Consulting Ent - Otolaryngology 06/23/20 [place] [address] [facility] [place] [address] [employer] Iam Consultant Gastroenterology 11/02/[address] [address] [place] [address] Baggage Smasher Cardiology 02/14/22 Special Services Director Relationship Specialty Start Date End Date Leonora Davalos, RESTAURANT AREA DIRECTOR.[employer] [address] [place] [address] PCP - General Family Practice 02/21/22 Ryan Tovar MD Consulting Ent - Otolaryngology 06/23/20 [place] [address] [facility] [place] [address] [employer] Iam Consultant Gastroenterology 11/02/21 [address] [address] [place] [address] Baggage Smasher Cardiology 02/14/22 Special Services Director Relationship Specialty Start Date End Date Leonora Davalos, RESTAURANT AREA DIRECTOR.SP[employer] [address] [place], [place] [id number] PCP - General Family Practice 02/21/22 Ryan Tovar MD Consulting Ent - Otolaryngology 06/23/20 [place] [address] [place] [address] [employer] Iam Consultant Gastroenterology 11/02/21 DimitriAly zamudio DO [facility] [place] [address] Baggage Smasher Cardiology 02/14/22 Special Services Director Relationship Specialty Start Date End Date Leonora Davalos, RESTAURANT AREA DIRECTOR.SP[employer]KER [address] [facility] [address] [place] [address] PCP - General Family Practice 02/21/22 Ryan Tovar MD Consulting Ent - Otolaryngology 06/23/20 [place] [address] [place] [address] [employer] Iam Consultant Gastroenterology 11/02/21 Aly Mos[place] [address] Baggage Smasher Cardiology 02/14/22 Special Services Director Relationship Specialty Start Date End Date Leonora Davalos, RESTAURANT AREA DIRECTOR.[facility] [address] [address] PCP - General Family Medicine 02/21/22 Ryan Tovar MD Consulting Ent - Otolaryngology 06/23/20 [place] [address] [place] [address] [employer] Iam Consultant Gastroenterology 11/02/21 Aly Mosley DO [facility] [place] [address] Baggage Smasher Cardiology 02/14/22 Special Services Director Relationship Specialty Start Date End Date Leonora Davalos, RESTAURANT AREA DIRECTOR.[employer] [address] [place] [address] PCP - General Family Medicine 02/21/22 Ryan Tovar MD Consulting Ent - Otolaryngology 06/23/20 [place] [address] [place] [address] [employer] Iam Consultant Gastroenterology 11/02/21 [address] [address] [place] [address] Baggage Smasher Cardiology 02/14/22 Special Services Director Relationship Specialty Start Date End Date Leonora Davalos, RESTAURANT AREA DIRECTOR.SPO[employer]KER PCP - General Family Medicine 02/21/22 Ryan Tovar MD Consulting Ent - Otolaryngology 06/23/20 [place] [address] [place] [address] [employer] Iam Consultant Gastroenterology 11/02/21 [address] [address] [place] [address] Baggage Smasher Cardiology 02/14/22 Special Services Director Relationship Specialty Start Date End Date Leonora Davalos, RESTAURANT AREA DIRECTOR.SPOOL MAKER [address] [facility] [address] [place] [address] PCP - General Family Medicine 02/21/22 Ryan Tovar MD Consulting Ent - Otolaryngology 06/23/20 [place] [address] [place] [address] Oracle Iam Consultant Gastroenterology 11/02/21 DimitriAyl zamudio [place] [address] Baggage Smasher Cardiology 02/14/22 Special Services Director Relationship Specialty Start Date End Date Leonora Davalos, RESTAURANT AREA DIRECTOR.SPO[employer] MAKER [address] [facility] [address] [place] [address] PCP - General Family Medicine 02/21/22 Ryan Tovar MD Consulting Ent - Otolaryngology 06/23/20 [place] [address] [place] [address] [employer] Iam Consultant Gastroenterology 11/02/21 Aly Mos[place] [address] Baggage Smasher Cardiology 02/14/22 Special Services Director Relationship Specialty Start Date End Date Leonora Davalos, RESTAURANT AREA DIRECTOR.[facility] [address] [address] PCP - General Family Medicine 02/21/22 Ryan Tovar MD Consulting Ent - Otolaryngology 06/23/20 [place] [address] [place] [address] [employer] Iam Consultant Gastroenterology 11/02/21 Aly Mosley DO [facility] [place] [address] Baggage Smasher Cardiology 02/14/22 Special Services Director Relationship Specialty Start Date End Date Leonora Davalos APRN.SPO[employer] MAKER [address] [facility] [address] [place] [address] PCP - General Family Medicine 02/21/22 Ryan Tovar MD Consulting Ent - Otolaryngology 06/23/20 [place] [address] [place] [address] [employer] Iam Consultant Gastroenterology 11/02/21 Aly Mosley, DO [address] [place] [address] Baggage Smasher Cardiology 02/14/22 Team Status: Active Member Role Status Dates Leonora Davalos CRITICAL CARE RN, CRITICAL CARE RN-C Family Provider Active Leonora Davalos CRITICAL CARE RN, CRITICAL CARE RN-C Primary Care Provider Active Team Status: Inactive Member Role Status Dates Dr. Shiraz Stephens MD Referring Provider Active Dr. Cayla Jolley MD Attending Provider Active Leonora Davalos CRITICAL CARE RN, CRITICAL CARE RN-C Primary Care Provider Active Team Status: Inactive Member Role Status Dates Dr. Shiraz Stephens MD Primary Care Provider, Refer ring Provider Active Dr. Carson Hobbs MD Attending Provider Active Team Status: Inactive Member Role Status Dates Dr. Shiraz Stephens MD Referring Provider Active Dr. Carlos Eduardo Matute MD Attending Provider Active Leonora Davalos CRITICAL CARE RN, CRITICAL CARE RN-C Primary Care Provider Active Team Status: Inactive Member Role Status Dates Leonora Davalos NP, CRITICAL CARE RN-C Primary Care Provider, Referr ing Provider Active Tanya Hutchins CRITICAL CARE RN, CRITICAL CARE RN-C Attending Provider Active Team Status: Inactive Member Role Status Dates Leonora Davalos CRITICAL CARE RN, CRITICAL CARE RN-C Primary Care Pr ovider, Attending Provider, Referring Provider Active Team Status: Inactive Member Role Status Dates Leonora Davalos NP, CRITICAL CARE RN-C Primary Care Provider Active Dr. Cayla Jolley MD Attending Provider Active Team Status: Inactive Member Role Status Dates Leonora Davalos CRITICAL CARE RN, CRITICAL CARE RN-C Primary Care Provider Active Dr. Philippe Farah MD Attending Provider Activ e Team Status: Inactive Member Role Status Dates Leonora Davalos CRITICAL CARE RN, CRITICAL CARE RN-C Primary Care Provider Active Dr. Corrie oDnis MD Attending Provider, Emergency Provider Active Team Status: Inactive Member Role Status Dates Leonora Davalos CRITICAL CARE RN, CRITICAL CARE RN-C Primary Care Provider Active Tanya Hutchins CRITICAL CARE RN, CRITICAL CARE RN-C Attending Provider, Referrin g Provider Active Team Status: Inactive Member Role Status Dates Leonora Davalos CRITICAL CARE RN, CRITICAL CARE RN-C Primary Care Provider, Referr ing Provider Active Mehrdad Ruth CRITICAL CARE RN, CRITICAL CARE RN-C Attending Provider Active Team Status: Inactive Member Role Status Dates Leonora Davalos CRITICAL CARE RN, CRITICAL CARE RN-C Primary Care Provider Active Mehrdad Ruth CRITICAL CARE RN, CRITICAL CARE RN-C Attending Provider, Referring Pro vider Active Special Services Director Relationship Specialty Start Date End Date Leonora Davalos, RESTAURANT AREA DIRECTOR.SPOOL MAKER [address] [facility] [address] [place] [address] PCP - General Family Medicine 02/21/22 Ryan Tovar MD Consulting Ent - Otolaryngology 06/23/20 [place] [address] [place] [address] [employer]am Consultant Gastroenterology 11/02/21 Aly Mosley DO [address] [place] [address] Baggage Smasher Cardiology 02/14/22 Team Status: Inactive Member Role Status Dates Leonora Davalos CRITICAL CARE RN, CRITICAL CARE RN-C Primary Care Provider, Referr ing Provider Active Marissa Camp CRITICAL CARE RN, CRITICAL CARE RN-C Attending Provider Active Team Status: Active Member Role Status Dates Leonora Davalos CRITICAL CARE RN, CRITICAL CARE RN-C Primary Care Provider Active Marissa Camp CRITICAL CARE RN, CRITICAL CARE RN-C Referring Provider, Other Pr ovider Active Dr. Yaya Gray DO Attending Provider Active Team Status: Inactive Member Role Status Dates Leonora Davalos CRITICAL CARE RN, CRITICAL CARE RN-C Primary Care Provider Active Marissa Camp NP, CRITICAL CARE RN-C Attending Provider, Referrin g Provider Active Special Services Director Relationship Specialty Start Date End Date Leonora Davalos, RESTAURANT AREA DIRECTOR.SPOOL MAKER [address] [facility] [address] [place] [address] PCP - General Family Medicine 02/21/22 Ryan Tovar MD Consulting Ent - Otolaryngology 06/23/20 [place] [address] [place] [address] [employer]am Consultant Gastroenterology 11/02/21 Aly Mosley DO [address] [place] [address] Baggage Smasher Cardiology 02/14/22 Special Services Director Relationship Specialty Start Date End Date Leonora Davalos, RESTAURANT AREA DIRECTOR.SPOOL MAKER [address] [address] PCP - General Family Medicine 02/21/22 Ryan Tovar MD Consulting Ent - Otolaryngology 06/23/20 [place] [address] [place] [address] [employer]am Consultant Gastroenterology 11/02/21 Aly Mosley DO [address] [place] [address] Baggage Smasher Cardiology 02/14/22 Special Services Director Relationship Specialty Start Date End Date Leonora Davalos, RESTAURANT AREA DIRECTOR.SPOOL MAKER [address] [place] [address] PCP - General Family Medicine 02/21/22 Ryan Tovar MD Consulting Ent - Otolaryngology 06/23/20 [place] [address] [place] [address] [employer] Iam Consultant Gastroenterology 11/02/21 Aly Mosley DO [address] [place] [address] Baggage Smasher Cardiology 02/14/22 Special Services Director Relationship Specialty Start Date End Date Leonora Davalos APRN.SPOOL MAKER [address] [place] [address] PCP - General Family Medicine 02/21/22 Ryan Tovar MD Consulting Ent - Otolaryngology 06/23/20 [place] [address] [place] [address] [employer]am Consultant Gastroenterology 11/02/21 Aly Mosley DO [address] [place] [address] Baggage Smasher Cardiology 02/14/22 Team Status: Inactive Member Role Status Dates Leonora Davalos CRITICAL CARE RN, CRITICAL CARE RN-C Primary Care Provider, Referr ing Provider Active Dr. Carlos Eduardo Matute MD Attending Provider Active Team Status: Active Member Role Status Dates Leonora Davalos CRITICAL CARE RN, CRITICAL CARE RN-C Primary Care Provider Active Dr. Carson Hobbs MD Attending Provider Active Team Status: Active Member Role Status Dates Leonora Davalos CRITICAL CARE RN, CRITICAL CARE RN-C Primary Care Provider Active Mehrdad Ruth CRITICAL CARE RN, CRITICAL CARE RN-C Attending Provider Active Team Status: Inactive Member Role Status Dates Leonora Davalos CRITICAL CARE RN, CRITICAL CARE RN-C Primary Care Provider Active Dr. Carson Hobbs MD Attending Provider, Referring Pro vider Active Team Status: Inactive Member Role Status Dates Leonora Davalos CRITICAL CARE RN, CRITICAL CARE RN-C Primary Care Provider Active Dr. Cayla Jolley MD Attending Provider, Referr ing Provider Active Team Status: Inactive Member Role Status Dates Leonora Davalos CRITICAL CARE RN, CRITICAL CARE RN-C Primary Care Provider, Referr ing Provider Active Padmini Singh CRITICAL CARE RN, CRITICAL CARE RN-C Attending Provider Active Team Status: Inactive Member Role Status Dates Leonora Davalos CRITICAL CARE RN, CRITICAL CARE RN-C Primary Care Provider Active Padmini Singh CRITICAL CARE RN, CRITICAL CARE RN-C Attending Provider, Referring Provider Active Special Services Director Relationship Specialty Start Date End Date Leonora Davalos, RESTAURANT AREA DIRECTOR.SPOOL MAKER [address] [place] [address] PCP - General Family Medicine 02/21/22 Ryan Tovar MD Consulting Ent - Otolaryngology 06/23/20 [place] [address] [place] [address] [employer] Iam Consultant Gastroenterology 11/02/21 Aly Mosley DO [address] [place] [address] Baggage Smasher Cardiology 02/14/22 Special Services Director Relationship Specialty Start Date End Date Leonora Davalos, RESTAURANT AREA DIRECTOR.SPOOL MAKER [address] [place] [address] PCP - General Family Medicine 02/21/22 Ryan Tovar MD Consulting Ent - Otolaryngology 06/23/20 [place] [address] [place] [address] Oracle Iam Consultant Gastroenterology 11/02/21 Aly Mosley DO [address] [place] [address] Baggage Smasher Cardiology 02/14/22 Special Services Director Relationship Specialty Start Date End Date Leonora Davalos, RESTAURANT AREA DIRECTOR.SPOOL MAKER [address] [place] [address] PCP - General Family Medicine 02/21/22 Ryan Tovar MD Consulting Ent - Otolaryngology 06/23/20 [place] [address] [place] [address] [employer]am Consultant Gastroenterology 11/02/21 Aly Mosley DO [address] [place] [address] Baggage Smasher Cardiology 02/14/22 Special Services Director Relationship Specialty Start Date End Date Leonora Davalos, RESTAURANT AREA DIRECTOR.SPOOL MAKER [address] [place] [address] PCP - General Family Medicine 02/21/22 Ryan Tovar MD Consulting Ent - Otolaryngology 06/23/20 [place] [address] [place] [address] Oracle Iam Consultant Gastroenterology 11/02/21 Aly Mosley DO [address] [place] [address] Baggage Smasher Cardiology 02/14/22 Special Services Director Relationship Specialty Start Date End Date Leonora Davalos, RESTAURANT AREA DIRECTOR.SPOOL MAKER [address] [place] [address] PCP - General Family Medicine 02/21/22 Ryan Tovar MD Consulting Ent - Otolaryngology 06/23/20 [place] [address] [place] [address] Oracle Iam Consultant Gastroenterology 11/02/21 Aly Mosley DO [address] [place] [address] Baggage Smasher Cardiology 02/14/22 Special Services Director Relationship Specialty Start Date End Date Leonora Davalos, RESTAURANT AREA DIRECTOR.SPOOL MAKER [address] [place], [place] [id number] PCP - General Family Medicine 02/21/22 Ryan Tovar MD Consulting Ent - Otolaryngology 06/23/20 [place] [address] [place] [address] Oracle Iam Consultant Gastroenterology 11/02/21 Aly Mosley DO [address] [place] [address] Baggage Smasher Cardiology 02/14/22 Special Services Director Relationship Specialty Start Date End Date Leonora Davalos, RESTAURANT AREA DIRECTOR.SPOOL MAKER [address] [place] [address] PCP - General Family Medicine 02/21/22 Ryan Tovar MD Consulting Ent - Otolaryngology 06/23/20 [place] [address] [place] [address] Oracle Iam Consultant Gastroenterology 11/02/21 Aly Mosley DO [facility] [place] [address] Baggage Smasher Cardiology 02/14/22 Special Services Director Relationship Specialty Start Date End Date Leonora Davalos, RESTAURANT AREA DIRECTOR.SPOOL MAKER [address] [place] [address] PCP - General Family Medicine 02/21/22 Ryan Tovar MD Consulting Ent - Otolaryngology 06/23/20 [place] [address] [place] [address] [employer] Iam Consultant Gastroenterology 11/02/21 Aly Mosley DO [address] [place] [address] Baggage Smasher Cardiology 02/14/22 Special Services Director Relationship Specialty Start Date End Date Leonora Davalos, RESTAURANT AREA DIRECTOR.SPOOL MAKER [address] [facility] [address] [place] [address] PCP - General Family Medicine 02/21/22 Ryan Tovar MD Consulting Ent - Otolaryngology 06/23/20 [place] [address] [place] [address] Oracle Iam Consultant Gastroenterology 11/02/21 Aly Mosley DO [address] [place] [address] Baggage Smasher Cardiology 02/14/22 Special Services Director Relationship Specialty Start Date End Date Leonora Davalos, RESTAURANT AREA DIRECTOR.SPOOL MAKER [address] [place] [address] [address] PCP - General Family Medicine 02/21/22 Ryan Tovar MD Consulting Ent - Otolaryngology 06/23/20 [place] [address] [place] [address] [employer] Iam Consultant Gastroenterology 11/02/21 Aly Mosley DO [address] [place] [address] Baggage Smasher Cardiology 02/14/22 Special Services Director Relationship Specialty Start Date End Date Leonora Davalos, RESTAURANT AREA DIRECTOR.SPOOL MAKER [address] [place] [address] PCP - General Family Medicine 02/21/22 Ryan Tovar MD Consulting Ent - Otolaryngology 06/23/20 [place] [address] [place] [address] Oracle Iam Consultant Gastroenterology 11/02/21 Aly Mosley DO [facility] [place] [address] Baggage Smasher Cardiology 02/14/22 Special Services Director Relationship Specialty Start Date End Date Leonora Davalos, RESTAURANT AREA DIRECTOR.SPOOL MAKER [address] [place] [address] PCP - General Family Medicine 02/21/22 Ryan Tovar MD Consulting Ent - Otolaryngology 06/23/20 [place] [address] [place] [address] Oracle Iam Consultant Gastroenterology 11/02/21 Aly Mosley DO [address] [place] [address] Baggage Smasher Cardiology 02/14/22 Special Services Director Relationship Specialty Start Date End Date Leonora Davalos, RESTAURANT AREA DIRECTOR.SPOOL MAKER [address] [place] [address] PCP - General Family Medicine 02/21/22 Ryan Tovar MD Consulting Ent - Otolaryngology 06/23/20 [place] [address] [place] [address] Oracle Iam Consultant Gastroenterology 11/02/21 Aly Mosley DO [address] [place] [address] Baggage Smasher Cardiology 02/14/22 Special Services Director Relationship Specialty Start Date End Date Leonora Davalos, RESTAURANT AREA DIRECTOR.SPOOL MAKER [address] [place] [address] PCP - General Family Medicine 02/21/22 Ryan Tovar MD Consulting Ent - Otolaryngology 06/23/20 [place] [address] [place] [address] Oracle Iam Consultant Gastroenterology 11/02/21 Aly Mosley DO [address] [place] [address] Baggage Smasher Cardiology 02/14/22 Special Services Director Relationship Specialty Start Date End Date Leonora Davalos, RESTAURANT AREA DIRECTOR.SPOOL MAKER [address] [place] [address] PCP - General Family Medicine 02/21/22 Ryan Tovar MD Consulting Ent - Otolaryngology 06/23/20 [place] [address] [place] [address] Oracle Iam Consultant Gastroenterology 11/02/21 Aly Mosley DO [address] [place] [address] Baggage Smasher Cardiology 02/14/22 Special Services Director Relationship Specialty Start Date End Date Leonora Davalos, RESTAURANT AREA DIRECTOR.SPOOL MAKER [address] [place] [address] PCP - General Family Medicine 02/21/22 Ryan Tovar MD Consulting Ent - Otolaryngology 06/23/20 [place] [address] [place] [address] Oracle Iam Consultant Gastroenterology 11/02/21 Aly Mosley DO [address] [place] [address] Baggage Smasher Cardiology 02/14/22 Special Services Director Relationship Specialty Start Date End Date Leonora Davalos, RESTAURANT AREA DIRECTOR.SPOOL MAKER [address] [place] [address] PCP - General Family Medicine 02/21/22 Ryan Tovar MD Consulting Ent - Otolaryngology 06/23/20 [place] [address] [place] [address] Oracle Iam Consultant Gastroenterology 11/02/21 Aly Mosley DO [address] [place] [address] Baggage Smasher Cardiology 02/14/22 Special Services Director Relationship Specialty Start Date End Date Leonora Davalos, RESTAURANT AREA DIRECTOR.SPOOL MAKER [address] [place] [address] PCP - General Family Medicine 02/21/22 Ryan Tovar MD Consulting Ent - Otolaryngology 06/23/20 [place] [address] [place] [address] Oracle Iam Consultant Gastroenterology 11/02/21 Aly Mosley DO [address] [place] [address] Baggage Smasher Cardiology 02/14/22 Special Services Director Relationship Specialty Start Date End Date Leonora Davalos, RESTAURANT AREA DIRECTOR.SPOOL MAKER [address] [place] [address] PCP - General Family Medicine 02/21/22 Ryan Tovar MD Consulting Ent - Otolaryngology 06/23/20 [place] [address] [place] [address] Oracle Iam Consultant Gastroenterology 11/02/21 Aly Mosley DO [address] [place] [address] Baggage Smasher Cardiology 02/14/22 Special Services Director Relationship Specialty Start Date End Date Leonora Davalos, RESTAURANT AREA DIRECTOR.SPOOL MAKER [address] [place] [address] PCP - General Family Medicine 02/21/22 Ryan Tovar MD Consulting Ent - Otolaryngology 06/23/20 [place] [address] [place] [address] Oracle Iam Consultant Gastroenterology 11/02/21 Aly Mosley DO [address] [place] [address] Baggage Smasher Cardiology 02/14/22 Special Services Director Relationship Specialty Start Date End Date Leonora Davalos, RESTAURANT AREA DIRECTOR.SPOOL MAKER [address] [place] [address] PCP - General Family Medicine 02/21/22 Ryan Tovar MD Consulting Ent - Otolaryngology 06/23/20 [place] [address] [place] [address] Oracle Iam Consultant Gastroenterology 11/02/21 Aly Mosley DO [address] [place] [address] Baggage Smasher Cardiology 02/14/22 Special Services Director Relationship Specialty Start Date End Date Leonora Davalos, RESTAURANT AREA DIRECTOR.SPOOL MAKER [address] [place] [address] PCP - General Family Medicine 02/21/22 Ryan Tovar MD Consulting Ent - Otolaryngology 06/23/20 [place] [address] [place] [address] Oracle Iam Consultant Gastroenterology 11/02/21 Aly Mosley DO [address] [place] [address] Baggage Smasher Cardiology 02/14/22 Special Services Director Relationship Specialty Start Date End Date Leonora Davalos, RESTAURANT AREA DIRECTOR.SPOOL MAKER [address] [place] [address] PCP - General Family Medicine 02/21/22 Ryan Tovar MD Consulting Ent - Otolaryngology 06/23/20 [place] [address] [place] [address] Oracle Iam Consultant Gastroenterology 11/02/21 Aly Mosley DO [address] [place] [address] Baggage Smasher Cardiology 02/14/22 Special Services Director Relationship Specialty Start Date End Date Leonora Davalos, RESTAURANT AREA DIRECTOR.SPOOL MAKER [address] [place] [address] PCP - General Family Medicine 02/21/22 Ryan Tovar MD Consulting Ent - Otolaryngology 06/23/20 [place] [address] [place] [address] Oracle Iam Consultant Gastroenterology 11/02/21 Aly Mosley DO [facility] [place] [address] Baggage Smasher Cardiology 02/14/22 Special Services Director Relationship Specialty Start Date End Date Leonora Davalos, RESTAURANT AREA DIRECTOR.SPOOL MAKER [address] [place] [address] PCP - General Family Medicine 02/21/22 Ryan Tovar MD Consulting Ent - Otolaryngology 06/23/20 [place] [address] [place] [address] Oracle Iam Consultant Gastroenterology 11/02/21 Aly Mosley DO [address] [place] [address] Baggage Smasher Cardiology 02/14/22 Special Services Director Relationship Specialty Start Date End Date Leonora Davalos APRN.CNP [address] [address] PCP - General Family Medicine 02/21/22 Ryan Tovar MD Consulting Ent - Otolaryngology 06/23/20 [place] [address] [place] [address] Oracle Iam Consultant Gastroenterology 11/02/21 Aly Mosley DO [address] [place] [address] Baggage Smasher Cardiology 02/14/22 Team Status: Active Member Role Status Dates Leonora Davalos NP, CRITICAL CARE RN-C Primary Care Provider Active Team Status: Inactive Member Role Status Dates Leonora Davalos NP, CRITICAL CARE RN-C Primary Care Provider Active Start: September 02, 2024 End: September 02, 2024 Leonora Davalos NP, CRITICAL CARE RN-C Referring Provider Active Start: September 02, 2024 End: September 02, 2024 Dr. Cayla Jolley MD Attending Provider Active Start: September 02, 2024 End: September 02, 2024 Team Status: Inactive Member Role Status Dates Leonora Davalos NP, CRITICAL CARE RN-C Primary Care Provider Active Start: September 02, 2024 End: September 02, 2024 Leonora Davalos NP, CRITICAL CARE RN-C Referring Provider Active Start: September 02, 2024 End: September 02, 2024 Marissa Camp CRITICAL CARE RN, CRITICAL CARE RN-C Attending Provider Active Start: September 02, 2024 End: September 02, 2024 Team Status: Inactive Member Role Status Dates Leonora Davalos CRITICAL CARE RN, CRITICAL CARE RN-C Primary Care Provider Active Start: September 02, 2024 End: September 02, 2024 Dr. Cayla Jolley MD Attending Provider Active Start: September 02, 2024 End: September 02, 2024 Dr. Cayla Jolley MD Referring Provider Active Start: September 02, 2024 End: September 02, 2024 Team Status: Inactive Member Role Status Dates Leonora Davalos CRITICAL CARE RN, CRITICAL CARE RN-C Primary Care Provider Active Start: September 05, 2024 End: September 05, 2024 Dr. Cayla Jolley MD Attending Provider Active Start: September 05, 2024 End: September 05, 2024 Dr. Cayla Jolley MD Referring Provider Active Start: September 05, 2024 End: September 05, 2024 Team Status: Inactive Member Role Status Dates Leonora Davalos CRITICAL CARE RN, CRITICAL CARE RN-C Primary Care Provider Active Start: September 26, 2024 End: September 26, 2024 Dr. Tonja Givens DO Attending Provider Active Start: September 26, 2024 End: September 26, 2024 Dr. Tonja Givens DO Emergency Provider Active Start: September 26, 2024 End: September 26, 2024 Team Status: Inactive Member Role Status Dates Leonora Davalos CRITICAL CARE RN, CRITICAL CARE RN-C Primary Care Provider Active Start: November 13, 2024 End: November 13, 2024 Leonora Davalos CRITICAL CARE RN, CRITICAL CARE RN-C Referring Provider Active Start: November 13, 2024 End: November 13, 2024 Mehrdad Ruth CRITICAL CARE RN, CRITICAL CARE RN-C Attending Provider Active S tart: November 13, 2024 End: November 13, 2024 Team Status: Inactive Member Role Status Dates Leonora Davalos CRITICAL CARE RN, CRITICAL CARE RN-C Primary Care Provider Active Start: November 13, 2024 End: November 13, 2024 Mehrdad Ruth CRITICAL CARE RN, CRITICAL CARE RN-C Attending Provider Active S tart: November 13, 2024 End: November 13, 2024 Mehrdad Ruth CRITICAL CARE RN, CRITICAL CARE RN-C Referring Provider Active S tart: November 13, 2024 End: November 13, 2024 Team Status: Inactive Member Role Status Dates Leonora Davalos CRITICAL CARE RN, CRITICAL CARE RN-C Primary Care Provider Active Start: November 19, 2024 End: November 19, 2024 Leonora Davalos NP, CRITICAL CARE RN-C Attending Provider Active Start: November 19, 2024 End: November 19, 2024 Leonora Davalos CRITICAL CARE RN, CRITICAL CARE RN-C Referring Provider Active Start: November 19, 2024 End: November 19, 2024 Team Status: Inactive Member Role Status Dates Leonora Davalos NP, CRITICAL CARE RN-C Primary Care Provider Active Start: December 03, 2024 End: December 03, 2024 Marissa Camp CRITICAL CARE RN, CRITICAL CARE RN-C Attending Provider Active Start: December 03, 2024 End: December 03, 2024 Marissa Camp CRITICAL CARE RN, CRITICAL CARE RN-C Referring Provider Active Start: December 03, 2024 End: December 03, 2024 Team Status: Inactive Member Role Status Dates Leonora Davalos NP, CRITICAL CARE RN-C Primary Care Provider Active Start: December 04, 2024 End: December 04, 2024 Leonora Davalos NP, CRITICAL CARE RN-C Attending Provider Active Start: December 04, 2024 End: December 04, 2024 Leonora Davalos CRITICAL CARE RN, CRITICAL CARE RN-C Referring Provider Active Start: December 04, 2024 End: December 04, 2024 Team Status: Inactive Member Role Status Dates Leonora Davalos NP, CRITICAL CARE RN-C Primary Care Provider Active Start: December 07, 2024 End: December 07, 2024 Sunita JAY PA Attending Provider Active Start: December 07, 2024 End: December 07, 2024 Sunita JAY PA Referring Provider Active Start: December 07, 2024 End: December 07, 2024 Special Services Director Relationship Specialty Start Date End Date Leonora Davalos, SHARLA.SPOOL MAKER [address] [address] PCP - General Family Medicine 02/21/22 Ryan Tovar MD Consulting Ent - Otolaryngology 06/23/20 [place] [address] [place] [address] [employer] Iam Consultant Gastroenterology 11/02/21 Aly Mosley DO [address] [place] [address] Baggage Smasher Cardiology 02/14/22 Team Status: Inactive Member Role Status Dates Leonora Davalos CRITICAL CARE RN, CRITICAL CARE RN-C Primary Care Provider Active Start: December 17, 2024 End: December 17, 2024 Mehrdad Ruth CRITICAL CARE RN, CRITICAL CARE RN-C Attending Provider Active S tart: December 17, 2024 End: December 17, 2024 Mehrdad Ruth CRITICAL CARE RN, CRITICAL CARE RN-C Referring Provider Active S tart: December 17, 2024 End: December 17, 2024 Team Status: Active Member Role Status Dates Leonora Davalos CRITICAL CARE RN, CRITICAL CARE RN-C Primary Care Provider Active Start: December 17, 2024 Dr. Carson Hobbs MD Attending Provider Active S tart: December 17, 2024 Special Services Director Relationship Specialty Start Date End Date Leonora Davalos APRN.CNP [address] [address] PCP - General Family Medicine 02/21/22 Ryan Tovar MD Consulting Ent - Otolaryngology 06/23/20 [place] [address] [place] [address] [employer] Iam Consultant Gastroenterology 11/02/21 Aly Mosley DO [address] [place] [address] Baggage Smasher Cardiology 02/14/22 Team Status: Inactive Member Role Status Dates Leonora Davalos CRITICAL CARE RN, CRITICAL CARE RN-C Primary Care Provider Active Start: January 07, 2025 End: January 07, 2025 Marissa Camp CRITICAL CARE RN, CRITICAL CARE RN-C Attending Provider Active Start: January 07, 2025 End: January 07, 2025 Marissa Camp CRITICAL CARE RN, CRITICAL CARE RN-C Referring Provider Active Start: January 07, 2025 End: January 07, 2025 Team Status: Active Member Role Status Dates Leonora Davalos CRITICAL CARE RN, CRITICAL CARE RN-C Primary Care Provider Active Start: January 10, 2025 Marissa Camp CRITICAL CARE RN, CRITICAL CARE RN-C Referring Provider Active Start: January 10, 2025 Marissa Camp CRITICAL CARE RN, CRITICAL CARE RN-C Other Provider Active Start: January 10, 2025 Dr. Yaya Gray , Attending Provider Active S tart: January 10, 2025 Team Status: Inactive Member Role Status Dates Leonora Davalos CRITICAL CARE RN, CRITICAL CARE RN-C Primary Care Provider Active Start: January 10, 2025 End: January 10, 2025 Leonora Davalos CRITICAL CARE RN, CRITICAL CARE RN-C Referring Provider Active Start: January 10, 2025 End: January 10, 2025 Ada Wheeler NP-C Attending Provider Active Start: January 10, 2025 End: January 10, 2025 Team Status: Inactive Member Role Status Dates Leonora Davalos CRITICAL CARE RN, CRITICAL CARE RN-C Primary Care Provider Active Start: January 16, 2025 End: January 16, 2025 Ada Wheeler NP-C Attending Provider Active Start: January 16, 2025 End: January 16, 2025 Ada Wheeler NP-C Referring Provider Active Start: January 16, 2025 End: January 16, 2025 Team Status: Inactive Member Role Status Dates Leonora Davalos NP, CRITICAL CARE RN-C Primary Care Provider Active Start: January 23, 2025 End: January 23, 2025 Leonora Davalos NP, CRITICAL CARE RN-C Referring Provider Active Start: January 23, 2025 End: January 23, 2025 Antonietta Wade NP-C Attending Provider Active S tart: January 23, 2025 End: January 23, 2025 Team Status: Active Member Role Status Dates Leonora Davalos NP, CRITICAL CARE RN-C Primary Care Provider Active Start: January 23, 2025 Antonietta Wade NP-C Attending Provider Active S tart: January 23, 2025 Antonietta Wade NP-C Referring Provider Active S tart: January 23, 2025 Team Status: Inactive Member Role Status Dates Leonora Davalos NP, CRITICAL CARE RN-C Primary Care Provider Active Start: January 23, 2025 End: January 23, 2025 VANESSA Ro Attending Provider Active S tart: January 23, 2025 End: January 23, 2025 VANESSA Ro Referring Provider Active S tart: January 23, 2025 End: January 23, 2025 Team Status: Active Member Role Status Dates Leonora Davalos NP, IJEOMA-C Primary Care Provider Active Start: January 24, 2025 VANESSA Lebron Attending Provider Active Start: January 24, 2025 VANESSA Lebron Referring Provider Active Start: January 24, 2025 VANESSA Ro Other Provider Active Start : January 24, 2025 Team Status: Inactive Member Role Status Dates Leonora Davalos NP, IJEOMA-Yeyo Primary Care Provider Active Start: February 05, 2025 End: February 05, 2025 VANESSA Ro Attending Provider Active S tart: February 05, 2025 End: February 05, 2025 VANESSA Ro Referring Provider Active S tart: February 05, 2025 End: February 05, 2025 Special Services Director Relationship Specialty Start Date End Date Leonora Davalos, RESTAURANT AREA DIRECTOR.SPOOL MAKER [address] [place] [address] PCP - General Family Medicine 02/21/22 Ryan Tovar MD Consulting Ent - Otolaryngology 06/23/20 [place] [address] [place] [address] [employer]am Consultant Gastroenterology 11/02/21 Aly Mosley DO [address] [place] [address] Baggage Smasher Cardiology 02/14/22 Special Services Director Relationship Specialty Start Date End Date Leonora Davalos APRN.SPOOL MAKER [address] [place] [address] PCP - General Family Medicine 02/21/22 [place] [address] [place] [address] [employer]am Consultant Gastroenterology 11/02/21 Aly Mosley DO [address] [place] [address] Baggage Smasher Cardiology 02/14/22 Elmer Manley MD [address] [address] Consulting Infectious Diseases 03/20/25 Leonora Davalos, RESTAURANT AREA DIRECTOR.SPOOL MAKER [address] [place] [address] Home Care Provider Family Medicine 03/20/25 [place] [address] [facility], [place] [id number] Referring Internal Medicine 03/20/25 Kwasi Cortes, JONI [address] [place] [address] [employer] Post Acute Care 03/20/25 Special Services Director Relationship Specialty Start Date End Date Leonora Davalos, RESTAURANT AREA DIRECTOR.SPOOL MAKER [address] [place] [address] PCP - General Family Medicine 02/21/22 [place] [address] [place] [address] [employer]am Consultant Gastroenterology 11/02/21 Aly Mosley DO [address] [place] [address] Baggage Smasher Cardiology 02/14/22 Elmer Manley MD [address] [address] Consulting Infectious Diseases 03/20/25 Leonora Davalos, RESTAURANT AREA DIRECTOR.SPOOL MAKER [address] [address] Home Care Provider Family Medicine 03/20/25 [place] [address] [place] [address] Referring Internal Medicine 03/20/25 Kwasi Cortes, JONI [address] [place] [address] [facility] Post Acute Care 03/20/25 Special Services Director Relationship Specialty Start Date End Date Leonora Davalos, RESTAURANT AREA DIRECTOR.SPOOL MAKER [address] [address] PCP - General Family Medicine 02/21/22 [place] [address] [place] [address] [employer]am Consultant Gastroenterology 11/02/21 Aly Mosley DO [address] [place] [address] Baggage Smasher Cardiology 02/14/22 Elmer Manley MD [address] [address] Consulting Infectious Diseases 03/20/25 Leonora Davalos, RESTAURANT AREA DIRECTOR.SPOOL MAKER [address] [place], [place] [address] Home Care Provider Family Medicine 03/20/25 [place] [address] [place], [place] [id number] Referring Internal Medicine 03/20/25 Kwasi Cortes, RN [address] [place] [address] [facility] Post Acute Care 03/20/25 Special Services Director Relationship Specialty Start Date End Date Leonora Davalos, RESTAURANT AREA DIRECTOR.SPOOL MAKER [address] [address] PCP - General Family Medicine 02/21/22 [place] [address] [place] [address] [employer]am Consultant Gastroenterology 11/02/21 Aly Mosley DO [address] [place] [address] Baggage Smasher Cardiology 02/14/22 Elmer Manley MD [address] [address] Consulting Infectious Diseases 03/20/25 Leonora Davalos, RESTAURANT AREA DIRECTOR.SPOOL MAKER [address] [place], [place] [address] Home Care Provider Family Medicine 03/20/25 [place] [address] [place] [address] Referring Internal Medicine 03/20/25 Kwasi Cortes RN [address] [place], [place] [id number] [facility] Post Acute Care 03/20/25 Special Services Director Relationship Specialty Start Date End Date Leonora Davalos, RESTAURANT AREA DIRECTOR.SPOOL MAKER [address] [place] [address] PCP - General Family Medicine 02/21/22 [place] [address] [place] [address] [employer] Iam Consultant Gastroenterology 11/02/21 Aly Mosley DO [address] [place] [address] Baggage Smasher Cardiology 02/14/22 Elmer Manley MD [address] [address] Consulting Infectious Diseases 03/20/25 Leonora Davalos, RESTAURANT AREA DIRECTOR.SPOOL MAKER [address] [place] [address] Home Care Provider Family Medicine 03/20/25 [place] [address] [place] [address] Referring Internal Medicine 03/20/25 Kwasi Cortes, JONI [address] [place], [place] [id number] [facility] Post Acute Care 03/20/25 Special Services Director Relationship Specialty Start Date End Date Leonora Davalos, RESTAURANT AREA DIRECTOR.SPOOL MAKER [address] [place] [address] PCP - General Family Medicine 02/21/22 Ryan Tovar MD Consulting Ent - Otolaryngology 06/23/20 03/19/25 [place] [address] [place] [address] [employer]am Consultant Gastroenterology 11/02/21 Aly Mosley DO [address] [place] [address] Baggage Smasher Cardiology 02/14/22 Elmer Manley MD [address] [address] Consulting Infectious Diseases 03/20/25 Leonora Davalos, RESTAURANT AREA DIRECTOR.SPOOL MAKER [address] [place] [address] Home Care Provider Family Medicine 03/20/25 [place] [address] [place] [address] Referring Internal Medicine 03/20/25 Kwasi Cortes, RN [address] [place], [place] [id number] [facility] Post Acute Care 03/20/25 Special Services Director Relationship Specialty Start Date End Date Leonora Davalos, RESTAURANT AREA DIRECTOR.SPOOL MAKER [address] [place] [address] PCP - General Family Medicine 02/21/22 [place] [address] [place] [address] [employer] Iam Consultant Gastroenterology 11/02/21 Aly Mosley DO [address] [place] [address] Baggage Smasher Cardiology 02/14/22 Elmer Manley MD [address] [address] Consulting Infectious Diseases 03/20/25 Leonora Davalos, RESTAURANT AREA DIRECTOR.SPOOL MAKER [address] [place] [address] Home Care Provider Family Medicine 03/20/25 [place] [address] [place] [address] Referring Internal Medicine 03/20/25 Kwasi Cortes, RN [address] [place] [address] [employer] Post Acute Care 03/20/25 Special Services Director Relationship Specialty Start Date End Date Leonora Davalos, RESTAURANT AREA DIRECTOR.SPOOL MAKER [address] [facility] [address] [place] [address] PCP - General Family Medicine 02/21/22 [place] [address] [place] [address] Oracle Iam Consultant Gastroenterology 11/02/21 Aly Mosley DO [address] [place] [address] Baggage Smasher Cardiology 02/14/22 Elmer Manley MD [address] [address] Consulting Infectious Diseases 03/20/25 Leonora Davalos, RESTAURANT AREA DIRECTOR.SPOOL MAKER [address] [place] [address] Home Care Provider Family Medicine 03/20/25 [place] [address] [facility], [place] [id number] Referring Internal Medicine 03/20/25 Kwasi Cortes, RN [address] [place], [place] [id number] [facility] Post Acute Care 03/20/25 Special Services Director Relationship Specialty Start Date End Date Leonora Davalos, RESTAURANT AREA DIRECTOR.SPOOL MAKER [address] [place] [address] PCP - General Family Medicine 02/21/22 [place] [address] [place] [address] [employer] Iam Consultant Gastroenterology 11/02/21 Aly Mosley DO [address] [place] [address] Baggage Smasher Cardiology 02/14/22 Elmer Manley MD [address] [address] Consulting Infectious Diseases 03/20/25 Leonora Davalos, RESTAURANT AREA DIRECTOR.SPOOL MAKER [address] [place] [address] Home Care Provider Family Medicine 03/20/25 [place] [address] [place] [address] Referring Internal Medicine 03/20/25 Kwasi Cortes RN [address] [place] [address] [employer] [facility] Post Acute Care 03/20/25 Special Services Director Relationship Specialty Start Date End Date Leonora Davalos, RESTAURANT AREA DIRECTOR.SPOOL MAKER [address] [place] [address] PCP - General Family Medicine 02/21/22 [place] [address] [place] [address] Oracle Iam Consultant Gastroenterology 11/02/21 Aly Mosley DO [address] [place] [address] Baggage Smasher Cardiology 02/14/22 Elmer Manley MD [address] [address] Consulting Infectious Diseases 03/20/25 Leonora Davalos, RESTAURANT AREA DIRECTOR.SPOOL MAKER [address] [place] [address] Home Care Provider Family Medicine 03/20/25 [place] [address] [place] [address] Referring Internal Medicine 03/20/25 Kwasi Cortes RN [address] [place] [address] [employer] Post Acute Care 03/20/25 Special Services Director Relationship Specialty Start Date End Date Leonora Davalos, RESTAURANT AREA DIRECTOR.SPOOL MAKER [address] [place] [address] PCP - General Family Medicine 02/21/22 [place] [address] [place] [address] Oracle Iam Consultant Gastroenterology 11/02/21 Aly Mosley DO [address] [place] [address] Baggage Smasher Cardiology 02/14/22 Elmer Manley MD [address] [address] Consulting Infectious Diseases 03/20/25 Leonora Davalos, RESTAURANT AREA DIRECTOR.SPOOL MAKER [address] [place] [address] Home Care Provider Family Medicine 03/20/25 [place] [address] [facility], [place] [address] Referring Internal Medicine 03/20/25 Kwasi Cortes, JONI [address] [place] [address] [employer] Post Acute Care 03/20/25 Special Services Director Relationship Specialty Start Date End Date Leonora Davalos, RESTAURANT AREA DIRECTOR.SPOOL MAKER [address] [place] [address] PCP - General Family Medicine 02/21/22 [place] [address] [place] [address] Oracle Iam Consultant Gastroenterology 11/02/21 Aly Mosley DO [address] [place] [address] Baggage Smasher Cardiology 02/14/22 Elmer Manley MD [address] [address] Consulting Infectious Diseases 03/20/25 Leonora Davalos, RESTAURANT AREA DIRECTOR.SPOOL MAKER [address] [place] [address] Home Care Provider Family Medicine 03/20/25 [place] [address] [place] [address] Referring Internal Medicine 03/20/25 Kwasi Cortes, RN [address] [place] [address] [employer] Post Acute Care 03/20/25 Special Services Director Relationship Specialty Start Date End Date Leonora Davalos, RESTAURANT AREA DIRECTOR.SPOOL MAKER [address] [facility] [address] [place] [address] PCP - General Family Medicine 02/21/22 [place] [address] [place] [address] Oracle Iam Consultant Gastroenterology 11/02/21 Aly Mosley DO [address] [place] [address] Baggage Smasher Cardiology 02/14/22 Elmer Manley MD [address] [address] Consulting Infectious Diseases 03/20/25 Leonora Davalos, RESTAURANT AREA DIRECTOR.SPOOL MAKER [address] [place] [address] Home Care Provider Family Medicine 03/20/25 [place] [address] [facility], [place] [address] Referring Internal Medicine 03/20/25 Kwasi Cortes, RN [address] [place], [place] [address] [facility] Post Acute Care 03/20/25 03/30/25 Special Services Director Relationship Specialty Start Date End Date Leonora Davalos, RESTAURANT AREA DIRECTOR.SPOOL MAKER [address] [place] [address] PCP - General Family Medicine 02/21/22 [place] [address] [place] [address] Oracle Iam Consultant Gastroenterology 11/02/21 Aly Mosley DO [address] [place] [address] Baggage Smasher Cardiology 02/14/22 Elmer Manley MD [address] [address] Consulting Infectious Diseases 03/20/25 Leonora Davalos, RESTAURANT AREA DIRECTOR.SPOOL MAKER [address] [place] [address] Home Care Provider Family Medicine 03/20/25 [place] [address] [place] [address] Referring Internal Medicine 03/20/25 Kwasi Cortes, RN [address] [place] [address] [employer] Post Acute Care 03/20/25 03/30/25 Special Services Director Relationship Specialty Start Date End Date Leonora Davalos, RESTAURANT AREA DIRECTOR.SPOOL MAKER [address] [address] PCP - General Family Medicine 02/21/22 [place] [address] [place] [address] Oracle Iam Consultant Gastroenterology 11/02/21 Aly Mosley DO [address] [place] [address] Baggage Smasher Cardiology 02/14/22 Elmer Manley MD [address] [address] Consulting Infectious Diseases 03/20/25 Leonora Davalos, RESTAURANT AREA DIRECTOR.SPOOL MAKER [address] [place] [address] Home Care Provider Family Medicine 03/20/25 [place] [address] [place] [address] Referring Internal Medicine 03/20/25 Special Services Director Relationship Specialty Start Date End Date Leonora Davalos, RESTAURANT AREA DIRECTOR.SPOOL MAKER [address] [place] [address] PCP - General Family Medicine 02/21/22 [place] [address] [place] [address] Oracle Iam Consultant Gastroenterology 11/02/21 Aly Mosley DO [address] [place] [address] Baggage Smasher Cardiology 02/14/22 Elmer Manley MD [address] [address] Consulting Infectious Diseases 03/20/25 Leonora Davalos, RESTAURANT AREA DIRECTOR.SPOOL MAKER [address] [place] [address] Home Care Provider Family Medicine 03/20/25 [place] [address] [place] [address] Referring Internal Medicine 03/20/25 Special Services Director Relationship Specialty Start Date End Date Leonora Davalos, RESTAURANT AREA DIRECTOR.SPOOL MAKER [address] [place] [address] PCP - General Family Medicine 02/21/22 [place] [address] [place] [address] Oracle Iam Consultant Gastroenterology 11/02/21 Aly Mosley DO [address] [place] [address] Baggage Smasher Cardiology 02/14/22 Elmer Manley MD [address] [address] Consulting Infectious Diseases 03/20/25 Leonora Davalos APRN.SPOOL MAKER [address] [facility] [address] [place] [address] Home Care Provider Family Medicine 03/20/25 [place] [address] [place] [address] Referring Internal Medicine 03/20/25 Kwasi Cortes, JONI [address] [place], [place] [id number] [facility] Post Acute Care 03/20/25 03/30/25 Team Status: Active Member Role/Relationship Status Dates Leonora Davalos CRITICAL CARE RN, CRITICAL CARE RN-C Primary Care Provider Active Team Status: Inactive Member Role/Relationship Status Dates Leonora Davalos CRITICAL CARE RN, CRITICAL CARE RN-C Primary Care Provider Active Start: December 17, 2024 End: December 17, 2024 Mehrdad Ruth CRITICAL CARE RN, CRITICAL CARE RN-C Attending Provider Active S tart: December 17, 2024 End: December 17, 2024 Mehrdad Ruth CRITICAL CARE RN, CRITICAL CARE RN-C Referring Provider Active S tart: December 17, 2024 End: December 17, 2024 Team Status: Active Member Role/Relationship Status Dates Leonora Davalos NP, CRITICAL CARE RN-C Primary Care Provider Active Start: December 17, 2024 Dr. Carson Hobbs MD Attending Provider Active S tart: December 17, 2024 Team Status: Inactive Member Role/Relationship Status Dates Leonora Davalos CRITICAL CARE RN, CRITICAL CARE RN-C Primary Care Provider Active Start: January 07, 2025 End: January 07, 2025 Marissa Camp CRITICAL CARE RN, CRITICAL CARE RN-C Attending Provider Active Start: January 07, 2025 End: January 07, 2025 Mairssa Camp CRITICAL CARE RN, CRITICAL CARE RN-C Referring Provider Active Start: January 07, 2025 End: January 07, 2025 Team Status: Active Member Role/Relationship Status Dates Leonora Davalos CRITICAL CARE RN, CRITICAL CARE RN-C Primary Care Provider Active Start: January 10, 2025 Marissa Camp CRITICAL CARE RN, CRITICAL CARE RN-C Referring Provider Active Start: January 10, 2025 Marissa Camp CRITICAL CARE RN, CRITICAL CARE RN-C Other Provider Active Start: January 10, 2025 Dr. Yaya Gray , Attending Provider Active S tart: January 10, 2025 Team Status: Inactive Member Role/Relationship Status Dates Leonora Davalos CRITICAL CARE RN, CRITICAL CARE RN-C Primary Care Provider Active Start: January 10, 2025 End: January 10, 2025 Leonora Davalos CRITICAL CARE RN, CRITICAL CARE RN-C Referring Provider Active Start: January 10, 2025 End: January 10, 2025 Ada Wheeler NP-C Attending Provider Active Start: January 10, 2025 End: January 10, 2025 Team Status: Inactive Member Role/Relationship Status Dates Leonora Davalos CRITICAL CARE RN, CRITICAL CARE RN-C Primary Care Provider Active Start: January 16, 2025 End: January 16, 2025 Ada Wheeler CRITICAL CARE RN-C Attending Provider Active Start: January 16, 2025 End: January 16, 2025 Ada Wheeler CRITICAL CARE RN-C Referring Provider Active Start: January 16, 2025 End: January 16, 2025 Team Status: Inactive Member Role/Relationship Status Dates Leonora Davalos NP, CRITICAL CARE RN-C Primary Care Provider Active Start: January 23, 2025 End: January 23, 2025 Leonora Davalos NP, CRITICAL CARE RN-C Referring Provider Active Start: January 23, 2025 End: January 23, 2025 Antonietta Wade NP-C Attending Provider Active S tart: January 23, 2025 End: January 23, 2025 Team Status: Inactive Member Role/Relationship Status Dates Leonora Davalos NP, CRITICAL CARE RN-C Primary Care Provider Active Start: January 23, 2025 End: January 23, 2025 Antonietta Wade NP-C Attending Provider Active S tart: January 23, 2025 End: January 23, 2025 Antonietta Wade NP-C Referring Provider Active S tart: January 23, 2025 End: January 23, 2025 Team Status: Inactive Member Role/Relationship Status Dates Leonora Davalos CRITICAL CARE RN, CRITICAL CARE RN-C Primary Care Provider Active Start: January 24, 2025 End: January 24, 2025 VANESSA Lebron Attending Provider Active Start: January 24, 2025 End: January 24, 2025 VANESSA Lebron Referring Provider Active Start: January 24, 2025 End: January 24, 2025 VANESSA Ro Other Provider Active Start : January 24, 2025 End: January 24, 2025 Team Status: Inactive Member Role/Relationship Status Dates Leonora Davalos NP, IJEOMA-C Primary Care Provider Active Start: February 05, 2025 End: February 05, 2025 VANESSA Ro Attending Provider Active S tart: February 05, 2025 End: February 05, 2025 VANESSA Ro Referring Provider Active S tart: February 05, 2025 End: February 05, 2025 Team Status: Inactive Member Role/Relationship Status Dates Leonora Davalos NP, CRITICAL CARE RN-C Primary Care Provider Active Start: February 20, 2025 End: February 20, 2025 Leonora Davalos NP, CRITICAL CARE RN-C Attending Provider Active Start: February 20, 2025 End: February 20, 2025 Leonora Davalos NP, CRITICAL CARE RN-C Referring Provider Active Start: February 20, 2025 End: February 20, 2025 Special Services Director Relationship Specialty Start Date End Date Leonora Davalos, RESTAURANT AREA DIRECTOR.SPOOL MAKER [address] [address] PCP - General Family Medicine 02/21/22 [place] [address] [place] [address] [employer]am Consultant Gastroenterology 11/02/21 Aly Mosley DO [address] [place] [address] Baggage Smasher Cardiology 02/14/22 Elmer Manley MD [address] [address] Consulting Infectious Diseases 03/20/25 Leonora Davalos, RESTAURANT AREA DIRECTOR.SPOOL MAKER [address] [place] [address] Home Care Provider Family Medicine 03/20/25 [place] [address] [place] [address] Referring Internal Medicine 03/20/25 Special Services Director Relationship Specialty Start Date End Date Leonora Davalos, RESTAURANT AREA DIRECTOR.SPOOL MAKER [address] [address] PCP - General Family Medicine 02/21/22 [place] [address] [place] [address] Oracle Iam Consultant Gastroenterology 11/02/21 Aly Mosley DO [address] [place] [address] Baggage Smasher Cardiology 02/14/22 Elmer Manley MD [address] [address] Consulting Infectious Diseases 03/20/25 Leonora Davalos, RESTAURANT AREA DIRECTOR.SPOOL MAKER [address] [place] [address] Home Care Provider Family Medicine 03/20/25 [place] [address] [place] [address] Referring Internal Medicine 03/20/25 Special Services Director Relationship Specialty Start Date End Date Leonora Davalos, RESTAURANT AREA DIRECTOR.SPOOL MAKER [address] [place] [address] PCP - General Family Medicine 02/21/22 [place] [address] [place] [address] Oracle Iam Consultant Gastroenterology 11/02/21 Aly Mosley DO [address] [place], [place] [address] Baggage Smasher Cardiology 02/14/22 Elmer Manley MD [address] [address] Consulting Infectious Diseases 03/20/25 Leonora Davalos, RESTAURANT AREA DIRECTOR.SPOOL MAKER [address] [place] [address] Home Care Provider Family Medicine 03/20/25 [place] [address] [facility], [place] [address] Referring Internal Medicine 03/20/25 Special Services Director Relationship Specialty Start Date End Date Leonora Davalos, RESTAURANT AREA DIRECTOR.SPOOL MAKER [address] [place] [address] PCP - General Family Medicine 02/21/22 [place] [address] [place] [address] [employer] Iam Consultant Gastroenterology 11/02/21 Aly Mosley DO [address] [place] [address] Baggage Smasher Cardiology 02/14/22 Elmer Manley MD [address] [address] Consulting Infectious Diseases 03/20/25 Leonora Davalos APRN.SPOOL MAKER [address] [facility] [address] [place] [address] Home Care Provider Family Medicine 03/20/25 [place] [address] [place] [address] Referring Internal Medicine 03/20/25 Team Status: Inactive Member Role/Relationship Status Dates Leonora Davalos NP, CRITICAL CARE RN-C Primary Care Provider Active Start: January 07, 2025 End: January 07, 2025 Marissa Camp CRITICAL CARE RN, CRITICAL CARE RN-C Attending Provider Active Start: January 07, 2025 End: January 07, 2025 Marissa Camp CRITICAL CARE RN, CRITICAL CARE RN-C Referring Provider Active Start: January 07, 2025 End: January 07, 2025 Team Status: Active Member Role/Relationship Status Dates Leonora Davalos NP, CRITICAL CARE RN-C Primary Care Provider Active Start: January 10, 2025 Marissa Camp CRITICAL CARE RN, CRITICAL CARE RN-C Referring Provider Active Start: January 10, 2025 Marissa Camp NP, CRITICAL CARE RN-C Other Provider Active Start: January 10, 2025 Dr. Yaya Gray , Attending Provider Active S tart: January 10, 2025 Team Status: Inactive Member Role/Relationship Status Dates Leonora Davalos NP, CRITICAL CARE RN-C Primary Care Provider Active Start: January 10, 2025 End: January 10, 2025 Leonora Davalos NP, CRITICAL CARE RN-C Referring Provider Active Start: January 10, 2025 End: January 10, 2025 Ada Wheeler CRITICAL CARE RN-C Attending Provider Active Start: January 10, 2025 End: January 10, 2025 Team Status: Inactive Member Role/Relationship Status Dates Leonora Davalos NP, CRITICAL CARE RN-C Primary Care Provider Active Start: January 16, 2025 End: January 16, 2025 Ada Wheeler CRITICAL CARE RN-C Attending Provider Active Start: January 16, 2025 End: January 16, 2025 Ada Wheeler CRITICAL CARE RN-C Referring Provider Active Start: January 16, 2025 End: January 16, 2025 Team Status: Inactive Member Role/Relationship Status Dates Leonora Davalos CRITICAL CARE RN, CRITICAL CARE RN-C Primary Care Provider Active Start: January 23, 2025 End: January 23, 2025 Leonora Davalos CRITICAL CARE RN, CRITICAL CARE RN-C Referring Provider Active Start: January 23, 2025 End: January 23, 2025 Antonietta Wade CRITICAL CARE RN-C Attending Provider Active S tart: January 23, 2025 End: January 23, 2025 Team Status: Inactive Member Role/Relationship Status Dates Leonora Davalos NP, CRITICAL CARE RN-C Primary Care Provider Active Start: January 23, 2025 End: January 23, 2025 Antoniteta Wade CRITICAL CARE RN-C Attending Provider Active S tart: January 23, 2025 End: January 23, 2025 Antonietta Wade CRITICAL CARE RN-C Referring Provider Active S tart: January 23, 2025 End: January 23, 2025 Team Status: Inactive Member Role/Relationship Status Dates Leonora Davalos NP, CRITICAL CARE RN-C Primary Care Provider Active Start: January 24, 2025 End: January 24, 2025 Ada Wheeler CRITICAL CARE RN-C Attending Provider Active Start: January 24, 2025 End: January 24, 2025 Ada Wheeler CRITICAL CARE RN-C Referring Provider Active Start: January 24, 2025 End: January 24, 2025 Antonietta Wade CRITICAL CARE RN-C Other Provider Active Start : January 24, 2025 End: January 24, 2025 Team Status: Inactive Member Role/Relationship Status Dates Leonora Davalos NP, CRITICAL CARE RN-C Primary Care Provider Active Start: February 05, 2025 End: February 05, 2025 Antonietta Wade CRITICAL CARE RN-C Attending Provider Active S tart: February 05, 2025 End: February 05, 2025 Antonietta Wade CRITICAL CARE RN-C Referring Provider Active S tart: February 05, 2025 End: February 05, 2025 Team Status: Inactive Member Role/Relationship Status Dates Leonora Davalos NP, CRITICAL CARE RN-C Primary Care Provider Active Start: February 20, 2025 End: February 20, 2025 Leonora Davalos CRITICAL CARE RN, CRITICAL CARE RN-C Attending Provider Active Start: February 20, 2025 End: February 20, 2025 Leonora Davalos CRITICAL CARE RN, CRITICAL CARE RN-C Referring Provider Active Start: February 20, 2025 End: February 20, 2025 Team Status: Inactive Member Role/Relationship Status Dates Leonora Davalos CRITICAL CARE RN, CRITICAL CARE RN-C Primary Care Provider Active Start: April 22, 2025 End: April 22, 2025 Leonora Davalos NP, CRITICAL CARE RN-C Referring Provider Active Start: April 22, 2025 End: April 22, 2025 Ada Wheeler NP-C Attending Provider Active Start: April 22, 2025 End: April 22, 2025 Special Services Director Relationship Specialty Start Date End Date Leonora Davalos APRN.SPOOL MAKER [address] [phone] PCP - General Family Medicine 02/21/22 [place] [address] [place] [address] Oracle Iam Consultant Gastroenterology 11/02/21 Aly Mosley DO [address] [place] [address] Baggage Smasher Cardiology 02/14/22 Elmer Manley MD [address] [address] Consulting Infectious Diseases 03/20/25 Leonora Davalos APRN.SPOOL MAKER [address] [facility] [address] [place] [address] Home Care Provider Family Medicine 03/20/25 [place] [address] [place] [address] Referring Internal Medicine 03/20/25 Special Services Director Relationship Specialty Start Date End Date Leonora Davalos, RESTAURANT AREA DIRECTOR.SPOOL MAKER [address] [place] [address] PCP - General Family Medicine 02/21/22 [place] [address] [place] [address] Oracle Iam Consultant Gastroenterology 11/02/21 Aly Mosley DO [address] [place] [address] Baggage Smasher Cardiology 02/14/22 Elmer Manley MD [address] [address] Consulting Infectious Diseases 03/20/25 Leonora Davalos, RESTAURANT AREA DIRECTOR.SPOOL MAKER [address] [address] Home Care Provider Family Medicine 03/20/25 [place] [address] [place] [address] Referring Internal Medicine 03/20/25 Special Services Director Relationship Specialty Start Date End Date Leonora Davalos, RESTAURANT AREA DIRECTOR.SPOOL MAKER [address] [facility] [address] [place] [address] PCP - General Family Medicine 02/21/22 [place] [address] [place] [address] Oracle Iam Consultant Gastroenterology 11/02/21 Aly Mosley DO [address] [place] [address] Baggage Smasher Cardiology 02/14/22 Elmer Manley MD [address] [address] Consulting Infectious Diseases 03/20/25 Leonora Davalos, RESTAURANT AREA DIRECTOR.SPOOL MAKER [address] [place], [place] [phone] Home Care Provider Family Medicine 03/20/25 [place] [address] [place], [place] [id number] Referring Internal Medicine 03/20/25 Special Services Director Relationship Specialty Start Date End Date Leonora Davalos, RESTAURANT AREA DIRECTOR.SPOOL MAKER [address] [place], [place] [id number] PCP - General Family Medicine 02/21/22 [place] [address] [place] [address] Oracle Iam Consultant Gastroenterology 11/02/21 Aly Mosley DO [address] [place] [address] Baggage Smasher Cardiology 02/14/22 Elmer Manley MD [address] [place] [address] Consulting Infectious Diseases 03/20/25 Leonora Davalos, RESTAURANT AREA DIRECTOR.SPOOL MAKER [address] [place] [address] Home Care Provider Family Medicine 03/20/25 [place] [address] [place] [address] Referring Internal Medicine 03/20/25 Special Services Director Relationship Specialty Start Date End Date Leonora Davalos, RESTAURANT AREA DIRECTOR.SPOOL MAKER [address] [place] [address] PCP - General Family Medicine 02/21/22 [place] [address] [place] [address] Oracle Iam Consultant Gastroenterology 11/02/21 Aly Mosley DO [address] [place] [address] Baggage Smasher Cardiology 02/14/22 Elmer Manley MD [address] [place] [address] Consulting Infectious Diseases 03/20/25 Leonora Davalos, RESTAURANT AREA DIRECTOR.SPOOL MAKER [address] [place] [address] Home Care Provider Family Medicine 03/20/25 [place] [address] [place] [address] Referring Internal Medicine 03/20/25 Special Services Director Relationship Specialty Start Date End Date Leonora Davalos, RESTAURANT AREA DIRECTOR.SPOOL MAKER [address] [place] [address] PCP - General Family Medicine 02/21/22 [place] [address] [place] [address] Oracle Iam Consultant Gastroenterology 11/02/21 Aly Mosley DO [address] [place] [address] Baggage Smasher Cardiology 02/14/22 Elmer Manley MD [address] [place] [address] Consulting Infectious Diseases 03/20/25 Leonora Davalos, RESTAURANT AREA DIRECTOR.SPOOL MAKER [address] [place] [address] Home Care Provider Family Medicine 03/20/25 [place] [address] [place] [address] Referring Internal Medicine 03/20/25 Special Services Director Relationship Specialty Start Date End Date Leonora Davalos, RESTAURANT AREA DIRECTOR.SPOOL MAKER [address] [place] [address] PCP - General Family Medicine 02/21/22 [place] [address] [place] [address] Oracle Iam Consultant Gastroenterology 11/02/21 Aly Mosley DO [address] [place] [address] Baggage Smasher Cardiology 02/14/22 Elmer Manley MD [address] [place] [address] Consulting Infectious Diseases 03/20/25 Leonora Davalos APRN.CNP [address] [place] [address] Home Care Provider Family Medicine 03/20/25 [place] [address] [place] [address] Referring Internal Medicine 03/20/25 Team Status: Inactive Member Role/Relationship Status Dates Leonora Davalos NP, CRITICAL CARE RN-C Primary Care Provider Active Start: February 05, 2025 End: February 05, 2025 Antonietat Wade NP-C Attending Provider Active S tart: February 05, 2025 End: February 05, 2025 Antonietta Wade NP-Yeyo Referring Provider Active S tart: February 05, 2025 End: February 05, 2025 Team Status: Inactive Member Role/Relationship Status Dates Leonora Davalos NP, CRITICAL CARE RN-C Primary Care Provider Active Start: February 20, 2025 End: February 20, 2025 Leonora Davalos NP, CRITICAL CARE RN-C Attending Provider Active Start: February 20, 2025 End: February 20, 2025 Leonora Davalos NP, CRITICAL CARE RN-C Referring Provider Active Start: February 20, 2025 End: February 20, 2025 Team Status: Inactive Member Role/Relationship Status Dates Leonora Davalos NP, CRITICAL CARE RN-C Primary Care Provider Active Start: April 22, 2025 End: April 22, 2025 Leonora Davalos NP, CRITICAL CARE RN-C Referring Provider Active Start: April 22, 2025 End: April 22, 2025 Ada Wheeler NP-C Attending Provider Active Start: April 22, 2025 End: April 22, 2025 Team Status: Inactive Member Role/Relationship Status Dates Leonora Davalos NP, CRITICAL CARE RN-C Primary Care Provider Active Start: May 09, 2025 End: May 09, 2025 dAa Wheeler NP-C Attending Provider Active Start: May 09, 2025 End: May 09, 2025 Team Status: Active Member Role/Relationship Status Dates Leonora Davalos NP, CRITICAL CARE RN-C Primary care physician Active Team Status: Inactive Member Role/Relationship Status Dates Leonora Davalos NP, CRITICAL CARE RN-C Primary care physician Active Start: April 22, 2025 End: April 22, 2025 Leonora Davalos NP, CRITICAL CARE RN-C Referring Provider Active Start: April 22, 2025 End: April 22, 2025 Ada Wheeler NP-C Attending physician Active Start: April 22, 2025 End: April 22, 2025 Team Status: Inactive Member Role/Relationship Status Dates Leonora Davalos NP, CRITICAL CARE RN-C Primary care physician Active Start: May 09, 2025 End: May 09, 2025 Ada Wheeler NP-C Attending physician Active Start: May 09, 2025 End: May 09, 2025 Team Status: Inactive Member Role/Relationship Status Dates Leonora Davalos NP, CRITICAL CARE RN-C Primary care physician Active Start: June 27, 2025 End: June 27, 2025 Leonora Davalos NP, CRITICAL CARE RN-C Referring Provider Active Start: June 27, 2025 End: June 27, 2025 Dr. Carson Hobbs MD Attending physician Active Start: June 27, 2025 End: June 27, 2025 Team Status: Inactive Member Role/Relationship Status Dates Leonora Davalos NP, CRITICAL CARE RN-C Primary care physician Active Start: June 30, 2025 End: June 30, 2025 Dr. Carson Hobbs MD Attending physician Active Start: June 30, 2025 End: June 30, 2025 Dr. Carson Hobbs MD Referring Provider Active S tart: June 30, 2025 End: June 30, 2025 Team Status: Active Member Role/Relationship Status Dates Leonora Davalos NP, CRITICAL CARE RN-C Primary care physician Active Start: June 30, [...] BE BASED ON THE PRIMARY CLINICAL RECORDS. [facility] [employer] [facility]. provides no warranty or guarantee of the accuracy or completeness of information in this document.
== END | disposition home or self-care (01) ==
LOC: OPBI 07:24
PROVIDERS: PCP Nurse Practitioner; Referring Provider Obstetrics & Gynecology; Visit Provider Obstetrics & Gynecology
DX: Z12.31 Encounter for screening mammogram for malignant neoplasm of breast (principal)
CPT/HCPCS: 77063; 77067